=== PATIENT | female | born 1935 | race Caucasian/White ===

== ENCOUNTER 2017-11-07 10:26 | Inpatient (IN) | payer MEDICARE, SELFPAY ==
--- NOTE | 2017-10-22 17:21 | PCM.HP.BLA ---
History and Physical DATE OF SERVICE: 11/07/2017 SCHEDULED PROCEDURE: Right hip hemiarthroplasty conversion to total hip replacement, anterior approach HISTORY OF PRESENT ILLNESS: This is an 81-year-old female who injured her right hip in March 2017 in which she sustained a displaced femoral neck fracture. Patient underwent a right hip hemiarthroplasty on March 10, 2017. Patient has had continued right hip pain. She is currently using a walker. She has been in physical therapy with minimal relief. Patient has increased pain in the right groin. She has difficult time with flexing her hip to get in and out of the car. She has difficult time with activities of daily living including tying her shoes and getting dressed. She has increased pain while laying down. Patient has had x-rays which does show complete loss of joint space and increased subchondral sclerosis on the acetabular side. There is early bony erosion of the acetabular side. After discussion with Dr. Jordon Huynh, the patient would like to proceed with a conversion of a hemiarthroplasty to a right total hip arthroplasty. Patient has medical history pertinent for hypertension and thyroid disease. She currently denies any chest pain, shortness of breath, fevers chills, recent infections. Patient has obtained surgical clearance from her primary care physician Dr. Grajeda. REVIEW OF SYSTEMS: ROS: Const: Reports hard of hearing and vision problems,Denies change in appetite, fever and weight change CV: Denies chest pain, heart murmur, irregular heartbeat and peripheral vascular disease. Resp: Reports cough, but denies asthma, pneumonia, sleep apnea, SOB, tuberculosis and wheezing. GI: Reports constipation, but denies diarrhea, difficulty swallowing, heartburn, nausea, bloody stools and vomiting. : . (F Genital Sx) Urinary: denies incontinence. Musculo: Reports leg swelling, limp, trouble walking and weakness. Skin: Denies Raynaud's, history of shingles and tattoo. Neuro: Reports difficulty with balance and tremor but denies ambulatory dysfunction, dizziness and numbness/tingling. Psych: Reports depression, but denies anxiety, insomnia, mental illness and stress. Sid/Lymph: Reports anemia and past transfusion, but denies bleeding/bruising tendency. Reviewed, no changes. PAST MEDICAL HISTORY: Advance Care Plan: Other Directive, LIVING WILL Effective Date: 05/09/2017 Other Directive, POA Effective Date: 05/09/2017 PMH: Medical Problems: Arthritis, High Blood Pressure, Thyroid Disease, Osteoporosis Accidents: Fracture - LT ANKLE Surgical Hx: Tonsillectomy - 1990 Tubal Ligation - (1958) Hysterectomy - (1977) Gallbladder - (1990) Appendectomy - (1955) Knee Arthroscopy RT - (1997) Knee Replacement RT - (2002) REVISION -2011 L-3, S-1 - (2011) RT Reverse Total Shoulder - (12/21/2015) [email or web address] LT Reverse Total Shoulder - (04/11/2016) [email or web address] RT TKR Revision - (09/06/2016) [email or web address] Hip Replacement RT - (03/10/2017) [email or web address] Anesthesia Complications: None Assistive Devices: Glasses, Hearing Aid, Walker Reviewed, no changes. SOCIAL HISTORY: SH: Marital: .Occupation: Retired.Work Status: Retired.Hand Dominance: Right-handed. Personal Habits: Cigarette Use: Never Smoked Cigarettes.Alcohol: Occasionally.Drug Use: Denies Use.Enjoy Exercising: Exercises 1-3 X/Week. Reviewed, no changes. VITALS: Ht: 58 Wt: 145lb Wt k.772 BMI: 30.3 BP: 100/62 Pulse: 68 Resp: 16 T: 98.7 T: 37.1C ALLERGIES: No Known Drug Allergy MEDICATIONS: Circle 5-325 mg 1-2 by mouth every 6 hour as needed pain, Trazodone HCL 50 mg 1 by mouth every day, Acetaminophen 325 mg 1-2 tablets every 4-6 hours for pain, Lisinopril 20 mg 1 by mouth every day, Amlodipine Besylate 5 mg 1 by mouth every day, Vitamin D (Ergocalciferol) 42770 Unit one PO daily, Flonase Allergy Relief 50 mcg/Act use as directed, Zyrtec Allergy 10 mg one PO daily, Tramadol HCL 50 mg 1-2 by mouth every 6 hours as needed pain, Gabapentin 300 mg 1 by mouth three times a day, Hyoscyamine Sulfate 0.125 mg one PO daily, Iron 28 mg one PO daily, Myrbetriq 25 mg one PO daily, Methenamine Mandelate 0.5 gm one PO daily, Fosamax 70 mg one tab weekly, Miralax 3350 nf one a day., Levothyroxine Sodium 50 mcg 1 by mouth every day, Aspir-81 81 mg 1 by mouth every day, Colace 100 mg 1po qhs, Protien Shake 3D daily PRE-OP EXAM: General appearance:NORMAL Other: Eyes: Conjunctivae and lids: NORMAL Pupils: ERR Ears, Nose, Mouth, and Throat: NORMAL Other: Inspection of lips, teeth and gums: NORMAL Other: Neck: Examination of neck: no masses noted. Respiratory: Assessment of respiratory effort: NORMAL Other: Ausculation of lungs: clear to ausculation no wheeses, ronchi or rales. Cardiovascular: Ausculation of heart: regular rate and rhythem, no mummurs, gallops or rubs. Exam of carotid arteries: NORMAL Other: Gastrointestinal: Exam of abdomen: soft, nontender, nondistended bowel sounds present. Lymphatic: Palpation of nodes in neck: NORMAL Other: Palpation of nodes in Axillae: NORMAL Other: Neurological: see below Psychiatric: Orientation to time, place and person: NORMAL Other: Mood and affect: NORMAL Other: PHYSICAL EXAMINATION: Patient walks with an antalgic gait. Previous incision is well-healed without any erythema. Patient has tenderness to palpation of the lateral right hip. She does have groin pain with range of motion. Internal rotation to 30? and external rotation to 20? with flexion to 90?. Sensations intact to light touch IMAGING STUDIES: X-rays were obtained at [facility] [place] on September 28, 2017 which does show a stable right hip hemiarthroplasty. There is complete loss of joint space with increased subchondral sclerosis on the acetabular side. There is early bony erosion of the acetabular side. IMPRESSION: 1. Painful right hip hemiarthroplasty 2. Hypertension 3. Thyroid disease 4. Osteoporosis PLAN: Dr. Huynh did discuss and review with the patient all treatment options including surgical versus nonsurgical. Patient wishes to proceed with above-stated procedure. Potential risks, benefits, and complications of this procedure were discussed in detail including but not limited to , infection, nerve and blood vessel damage, persistent pain, numbness, tingling, paresthesias, blood clot, pulmonary embolism, and requirement for further surgery. The patient expressed full understanding has no further questions for the doctor. Patient does agree to proceed with the above-stated procedure and has signed the surgery consent form. ___ I have re-examined the patient. There are no clinical changes since date of exam. ___ See progress notes for changes. ___ Dictated on admission Date: Time: Signature:
--- NOTE | 2017-10-22 17:29 | HP.PCM_ITS ---
History and Physical DATE OF SERVICE: 11/07/2017 SCHEDULED PROCEDURE: Right hip hemiarthroplasty conversion to total hip replacement, anterior approach HISTORY OF PRESENT ILLNESS: This is an 81-year-old female who injured her right hip in March 2017 in which she sustained a displaced femoral neck fracture. Patient underwent a right hip hemiarthroplasty on March 10, 2017. Patient has had continued right hip pain. She is currently using a walker. She has been in physical therapy with minimal relief. Patient has increased pain in the right groin. She has difficult time with flexing her hip to get in and out of the car. She has difficult time with activities of daily living including tying her shoes and getting dressed. She has increased pain while laying down. Patient has had x-rays which does show complete loss of joint space and increased subchondral sclerosis on the acetabular side. There is early bony erosion of the acetabular side. After discussion with Dr. Jordon Huynh, the patient would like to proceed with a conversion of a hemiarthroplasty to a right total hip arthroplasty. Patient has medical history pertinent for hypertension and thyroid disease. She currently denies any chest pain, shortness of breath, fevers chills, recent infections. Patient has obtained surgical clearance from her primary care physician Dr. Grajeda. REVIEW OF SYSTEMS: ROS: Const: Reports hard of hearing and vision problems,Denies change in appetite, fever and weight change CV: Denies chest pain, heart murmur, irregular heartbeat and peripheral vascular disease. Resp: Reports cough, but denies asthma, pneumonia, sleep apnea, SOB, tuberculosis and wheezing. GI: Reports constipation, but denies diarrhea, difficulty swallowing, heartburn , nausea, bloody stools and vomiting. : . (F Genital Sx) Urinary: denies incontinence. Musculo: Reports leg swelling, limp, trouble walking and weakness. Skin: Denies Raynaud's, history of shingles and tattoo. Neuro: Reports difficulty with balance and tremor but denies ambulatory dysfunction, dizziness and numbness/tingling. Psych: Reports depression, but denies anxiety, insomnia, mental illness and stress. Sid/Lymph: Reports anemia and past transfusion, but denies bleeding/bruising tendency. Reviewed, no changes. PAST MEDICAL HISTORY: Advance Care Plan: Other Directive, LIVING WILL Effective Date: 05/09/2017 Other Directive, POA Effective Date: 05/09/2017 PMH: Medical Problems: Arthritis, High Blood Pressure, Thyroid Disease, Osteoporosis Accidents: Fracture - LT ANKLE Surgical Hx: Tonsillectomy - 1990 Tubal Ligation - (1958) Hysterectomy - (1977) Gallbladder - (1990) Appendectomy - (1955) Knee Arthroscopy RT - (1997) Knee Replacement RT - (2002) REVISION -2011 L-3, S-1 - (2011) RT Reverse Total Shoulder - (12/21/2015) [email or web address] LT Reverse Total Shoulder - (04/11/2016) [email or web address] TKR Revision - (09/06/2016) [email or web address] Hip Replacement RT - (03/10/2017) [email or web address] Anesthesia Complications: None Assistive Devices: Glasses, Hearing Aid, Walker Reviewed, no changes. SOCIAL HISTORY: SH: Marital: .Occupation: Retired.Work Status: Retired.Hand Dominance: Right- handed. Personal Habits: Cigarette Use: Never Smoked Cigarettes.Alcohol: Occasionally.Drug Use: Denies Use.Enjoy Exercising: Exercises 1-3 X/Week. Reviewed, no changes. VITALS: Ht: 58 Wt: 145lb Wt k.772 BMI: 30.3 BP: 100/62 Pulse: 68 Resp: 16 T: 98.7 T: 37.1C ALLERGIES: No Known Drug Allergy MEDICATIONS: [place] 5-325 mg 1-2 by mouth every 6 hour as needed pain, Trazodone HCL 50 mg 1 by mouth every day, Acetaminophen 325 mg 1-2 tablets every 4-6 hours for pain, Lisinopril 20 mg 1 by mouth every day, Amlodipine Besylate 5 mg 1 by mouth every day, Vitamin D (Ergocalciferol) 95805 Unit one PO daily, Flonase Allergy Relief 50 mcg/Act use as directed, Zyrtec Allergy 10 mg one PO daily, Tramadol HCL 50 mg 1-2 by mouth every 6 hours as needed pain, Gabapentin 300 mg 1 by mouth three times a day, Hyoscyamine Sulfate 0.125 mg one PO daily, Iron 28 mg one PO daily, Myrbetriq 25 mg one PO daily, Methenamine Mandelate 0.5 gm one PO daily, Fosamax 70 mg one tab weekly, Miralax 3350 nf one a day., Levothyroxine Sodium 50 mcg 1 by mouth every day, Aspir-81 81 mg 1 by mouth every day, Colace 100 mg 1po qhs, Protien Shake 3D daily PRE-OP EXAM: General appearance:NORMAL Other: Eyes: Conjunctivae and lids: NORMAL Pupils: ERR Ears, Nose, Mouth, and Throat: NORMAL Other: Inspection of lips, teeth and gums: NORMAL Other: Neck: Examination of neck: no masses noted. Respiratory: Assessment of respiratory effort: NORMAL Other: Ausculation of lungs: clear to ausculation no wheeses, ronchi or rales. Cardiovascular: Ausculation of heart: regular rate and rhythem, no mummurs, gallops or rubs. Exam of carotid arteries: NORMAL Other: Gastrointestinal: Exam of abdomen: soft, nontender, nondistended bowel sounds present. Lymphatic: Palpation of nodes in neck: NORMAL Other: Palpation of nodes in Axillae: NORMAL Other: Neurological: see below Psychiatric: Orientation to time, place and person: NORMAL Other: Mood and affect: NORMAL Other: PHYSICAL EXAMINATION: Patient walks with an antalgic gait. Previous incision is well-healed without any erythema. Patient has tenderness to palpation of the lateral right hip. She does have groin pain with range of motion. Internal rotation to 30? and external rotation to 20? with flexion to 90?. Sensations intact to light touch IMAGING STUDIES: X-rays were obtained at [facility] [place] on September 28, 2017 which does show a stable right hip hemiarthroplasty. There is complete loss of joint space with increased subchondral sclerosis on the acetabular side. There is early bony erosion of the acetabular side. IMPRESSION: 1. Painful right hip hemiarthroplasty 2. Hypertension 3. Thyroid disease 4. Osteoporosis PLAN: Dr. Huynh did discuss and review with the patient all treatment options including surgical versus nonsurgical. Patient wishes to proceed with above- stated procedure. Potential risks, benefits, and complications of this procedure were discussed in detail including but not limited to , infection , nerve and blood vessel damage, persistent pain, numbness, tingling, paresthesias, blood clot, pulmonary embolism, and requirement for further surgery. The patient expressed full understanding has no further questions for the doctor. Patient does agree to proceed with the above-stated procedure and has signed the surgery consent form. ___ I have re-examined the patient. There are no clinical changes since date of exam. ___ See progress notes for changes. ___ Dictated on admission Date: Time: Signature:
[2017-10-23 11:47] VITALS: BP 131/69; PULSE 74; RESP 16; TEMP 36.4; O2SAT 99; BMI 29.7
[2017-10-23 13:26] LABS: Thyroid Stim Hormone (TSH) 1.74 uIU/mL (0.358-3.74)
[2017-11-07] VITALS (10 sets, daily range): BP systolic 102–148; BP diastolic 55–71; PULSE 70–82; RESP 12–18; TEMP 36.1–37.2; O2SAT 93–100; BMI 29.7
[2017-11-07] MEDS: Acetaminophen 500 MG Tablet 1000 MG PO ×2 (11:00→22:10)
[2017-11-07] MEDS: Celecoxib 200 MG Capsule 400 MG PO (11:00)
[2017-11-07] MEDS: oxyCODONE HCl Cr 10 MG Tablet PO (11:00)
[2017-11-07] MEDS: Lactated Ringers 1,000 ML 999 ML IV (11:20)
--- NOTE | 2017-11-07 11:44 | RAD_ITS ---
STUDY: X-RAY - PELVIS AND RIGHT HIP REASON FOR EXAM: Female, 81 years old. Right hip replacement. TECHNIQUE: Radiological exam, hip, unilateral, with pelvis when performed; 2 or 3 views. COMPARISON: None. FINDINGS: Fluoroscopic imaging provided for right anterior total hip replacement. There is good alignment. RAD/Hip 1 view with Pelvis IMPRESSION: Right total hip replacement. There is good alignment. Electronically Signed: Darron Rojas MD at 14:58 EST Tel [phone], Service support ,
[2017-11-07] MEDS: Cefazolin 2 GM in 0.9% Normal Saline 100 ML IV (12:15)
--- NOTE | 2017-11-07 14:00 | RAD_ITS ---
STUDY: X-RAY - PELVIS AND RIGHT HIP REASON FOR EXAM: Female, 81 years old. Status post right hip replacement. TECHNIQUE: Radiological exam, hip, unilateral, with pelvis when performed; 2 or 3 views. COMPARISON: None. FINDINGS: The patient is status post right total hip replacement. There is good alignment. Postoperative soft tissue changes. There is evidence of prior fusion of the lower lumbar spine RAD/Hip Min 2 Views (Portable) IMPRESSION: Status post right total hip replacement. There is good alignment. Electronically Signed: Darron Rojas MD at 15:41 EST Tel [phone], Service support ,
--- NOTE | 2017-11-07 14:06 | PCM.OPRPT ---
Report of Operation Date of Procedure: 11/07/17 Pre-Operative Diagnosis: Failed right hip hemiarthroplasty, progressive osteoarthritis, leg length discrepancy Post-Operative Diagnosis: Failed right hip hemiarthroplasty, progressive osteoarthritis, leg length discrepancy Surgery/Procedure Performed:: Conversion of previous hip surgery to total hip arthroplasty right Description of Surgical Findings:: Stable hip dianeticist: Jani Nicholson dianeticist: Amado Fields Type of Anesthesia:: General Anesthesiologist: Pato Can Special Medications: 2 g Ancef, 1 g TXA at incision, 1 g TXA closure, 10 mg Decadron, joint cocktail (5 mg Duramorph, 30 mL of 0.5% Ropivicaine, 1000 units of epinephrine, 30 mg of Toradol) Specimen's removed: 3 separate specimens were sent to microbiology Estimated Blood Loss (mL): 200 Fluids Replaced: 1300 ml crystalloid Description of Procedure: Components used: 1. Yahir MDM liner for 48 shell, alpha code D 2. Yahir trident acetabular shell size 48 mm 3. [place] X3 polyethylene MDM insert size [id number] 4. [place] cobalt-chromium 22.2mm, +8mm femoral head Brief history operative indications: 81 yo f who failed conservative measures for their hip osteoarthritis status post right hip hemiarthroplasty. Patient had right hip hemiarthroplasty for femoral neck fracture in March 2017. She had progressive groin pain and loss of joint space. X-rays were consistent with osteoarthritis including joint space narrowing, osteophyte formation and subchondral cysts on the acetabular side. Conversion to total hip replacement was discussed with the patient with risks and benefits including but not limited to blood loss, DVTs, PEs, neurovascular damage, dislocation, general risks of anesthesia including loss of life. Patient demonstrated an understanding medical clearance is obtained the patient was consented for surgery. Procedure: On the date of procedure the patient's R hip was marked in the preoperative area. Patient was then taken back to the operating room where anesthesia assumed control of the C-spine and airway and administered anesthetic. Patient was transferred to the operating table and placed in the supine position. The hips were placed at the break of the bed and a sacral bump was placed. The R lower extremity was then prepped out in a sterile fashion using chlorhexidine while the surgeon scrubbed. The PA was vital in the positioning of the patient. Upon reentering the room the R lower extremity was draped in the standard orthopedic fashion and the incision was marked. A timeout was called and everyone agreed upon the side, the site, the procedure be performed, antibody given, and patient's identity. At this time incision was made through skin, subcutaneous tissue, and fat down to fascia. The fascia was then incised and the TFL was retracted laterally. A retractor was placed on the lateral border of the femoral neck. Attention was directed to the inferior portion of the approach and all crossing vessels were identified and appropriately coagulated. A retractor was then placed on the medial portion of the femoral neck. The anterior capsule was then cleared of all soft tissue and then H shaped capsulotomy was made. Aggressive synovectomy was performed and inferior and superior synovium was sent for culture. The retractors were then placed inside the capsule. Traction was then pulled on the leg and a bone tamp was used to separate the fall from the trunnion. The trunnion was then dislocated from the ball and the 43 mm hemiarthroplasty ball was removed from the hip joint. At this time the femur was appropriately exposed and elevated and we examined the femoral component. Femoral component appeared well fixed on shuck testing and rotational testing. Femur could be appropriately elevated. We then raised a small pocket superior to the acetabulum for the femoral trunnion to sit but we did her acetabular work. Attention was then turned toward the acetabulum where the soft tissues were appropriately retracted and the acetabulum was sequentially reamed to 47 mm. A 48 mm cup was then selected and impacted into place. MDM acetabular liner was impacted into place and locking mechanism was verified. The position of the acetabular cup was then verified under live fluoroscopy. Our attention was then directed towards the femur where the trunnion was exposed. Appropriate head was placed with a +0 neck. This gave us a short leg length and an unstable hip. At this time we dislocated the hip and went to a +8 mm neck. This gave us hip stable to 70? external rotation and full extension with good stability at 90? flexion and internal rotation. Leg lengths were near equal at this time. Based on stability we dislocated the hip remove the MDM liner and put an additional 10? of retroversion on the acetabular component. MDM liner was then impacted into place again hip was once again dislocated and found to be stable at 90? external rotation and full extension. He was also stable at 90? flexion and internal rotation. The trial components were then dislocated the proximal femur was again exposed and the components were removed from the wound. The final components were verified and opened. The wound was copiously irrigated out with normal saline. The acetabulum was checked for any residual debris. The final components were placed and impacted. Traction and internal rotation were again used to reduce the hip. After adequate reduction the hip remained stable with appropriate leg lengths. The final components were once again checked with live fluoroscopy and were found to be satisfactory. The wound was then copiously irrigated with normal saline once more, and hemostasis was obtained. Closure was then done using #1 Vicryl runner to close the fascia. A 2-0 vicryl interuppted sutures were used to close the subcutaneous skin. A 3-0 Monocryl and Steri-Strips were used for final skin closure. A Silverlon dressing was placed. Patient was awakened by anesthesia and transferred to the [facility]. Patient was then transferred to the PACU for recovery. Postoperative plan: Patient will get 24 hours postop antibiotics. Patient will get in-house physical therapy and will be weight-bear as tolerated. Patient will follow up in office in 2 weeks for a wound check and x-rays. During the course of the procedure the physician assistant child care teacher played a vital role. His intimate knowledge of my steps in the procedure aided in safe and expedient completion of the procedure. The PA played a vital rolls in positioning particularly in obtaining the appropriate positioning of the sacral bump. The PA was also vital in the retraction of soft tissues during the exposure and especially the femoral work as this is a vital part of the procedure to prevent complications and fractures. The PA was also vital and protecting soft tissues during times of bony cuts and reaming. He also played a vital role in closure with my direct supervision. The PA was also important during reduction and dislocation of the joint and trials intraoperatively. Dr. Fields assisted in the surgery for educational and evaluative purposes only Grafts/Implants Used: Yahir trident acetabular shell with MDM liner - Complications none - Admit VTE Documentation VTE Present on Admission: No VTE Mechan Device Prophylaxis: SCD's, Thigh High RITESH Hose VTE Pharm Prophylaxis ordered?: Yes
--- NOTE | 2017-11-07 14:14 | OP.PCM_ITS ---
Report of Operation Date of Procedure: 11/07/17 Pre-Operative Diagnosis: Failed right hip hemiarthroplasty, progressive osteoarthritis, leg length discrepancy Post-Operative Diagnosis: Failed right hip hemiarthroplasty, progressive osteoarthritis, leg length discrepancy Surgery/Procedure Performed:: Conversion of previous hip surgery to total hip arthroplasty right Description of Surgical Findings:: Stable hip urgent care physician assistant: Jani Nicholson urgent care physician assistant: Amado Fields Type of Anesthesia:: General Anesthesiologist: Pato Can Special Medications: 2 g Ancef, 1 g TXA at incision, 1 g TXA closure, 10 mg Decadron, joint cocktail (5 mg Duramorph, 30 mL of 0.5% Ropivicaine, 1000 units of epinephrine, 30 mg of Toradol) Specimen's removed: 3 separate specimens were sent to microbiology Estimated Blood Loss (mL): 200 Fluids Replaced: 1300 ml crystalloid Description of Procedure: Components used: 1. Yahir MDM liner for 48 shell, alpha code D 2. Yahir trident acetabular shell size 48 mm 3. Nottingham X3 polyethylene MDM insert size 38D 4. Nottingham cobalt-chromium 22.2mm, +8mm femoral head Brief history operative indications: 81 yo f who failed conservative measures for their hip osteoarthritis status post right hip hemiarthroplasty. Patient had right hip hemiarthroplasty for femoral neck fracture in March 2017. She had progressive groin pain and loss of joint space. X-rays were consistent with osteoarthritis including joint space narrowing, osteophyte formation and subchondral cysts on the acetabular side. Conversion to total hip replacement was discussed with the patient with risks and benefits including but not limited to blood loss, DVTs, PEs, neurovascular damage, dislocation, general risks of anesthesia including loss of life. Patient demonstrated an understanding medical clearance is obtained the patient was consented for surgery. Procedure: On the date of procedure the patient's R hip was marked in the preoperative area. Patient was then taken back to the operating room where anesthesia assumed control of the C-spine and airway and administered anesthetic. Patient was transferred to the operating table and placed in the supine position. The hips were placed at the break of the bed and a sacral bump was placed. The R lower extremity was then prepped out in a sterile fashion using chlorhexidine while the surgeon scrubbed. The PA was vital in the positioning of the patient. Upon reentering the room the R lower extremity was draped in the standard orthopedic fashion and the incision was marked. A timeout was called and everyone agreed upon the side, the site, the procedure be performed, antibody given, and patient's identity. At this time incision was made through skin, subcutaneous tissue, and fat down to fascia. The fascia was then incised and the TFL was retracted laterally. A retractor was placed on the lateral border of the femoral neck. Attention was directed to the inferior portion of the approach and all crossing vessels were identified and appropriately coagulated. A retractor was then placed on the medial portion of the femoral neck. The anterior capsule was then cleared of all soft tissue and then H shaped capsulotomy was made. Aggressive synovectomy was performed and inferior and superior synovium was sent for culture. The retractors were then placed inside the capsule. Traction was then pulled on the leg and a bone tamp was used to separate the fall from the trunnion. The trunnion was then dislocated from the ball and the 43 mm hemiarthroplasty ball was removed from the hip joint. At this time the femur was appropriately exposed and elevated and we examined the femoral component. Femoral component appeared well fixed on shuck testing and rotational testing. Femur could be appropriately elevated. We then raised a small pocket superior to the acetabulum for the femoral trunnion to sit but we did her acetabular work. Attention was then turned toward the acetabulum where the soft tissues were appropriately retracted and the acetabulum was sequentially reamed to 47 mm. A 48 mm cup was then selected and impacted into place. MDM acetabular liner was impacted into place and locking mechanism was verified. The position of the acetabular cup was then verified under live fluoroscopy. Our attention was then directed towards the femur where the trunnion was exposed. Appropriate head was placed with a +0 neck. This gave us a short leg length and an unstable hip. At this time we dislocated the hip and went to a + 8 mm neck. This gave us hip stable to 70? external rotation and full extension with good stability at 90? flexion and internal rotation. Leg lengths were near equal at this time. Based on stability we dislocated the hip remove the MDM liner and put an additional 10? of retroversion on the acetabular component. MDM liner was then impacted into place again hip was once again dislocated and found to be stable at 90? external rotation and full extension. He was also stable at 90? flexion and internal rotation. The trial components were then dislocated the proximal femur was again exposed and the components were removed from the wound. The final components were verified and opened. The wound was copiously irrigated out with normal saline. The acetabulum was checked for any residual debris. The final components were placed and impacted. Traction and internal rotation were again used to reduce the hip. After adequate reduction the hip remained stable with appropriate leg lengths. The final components were once again checked with live fluoroscopy and were found to be satisfactory. The wound was then copiously irrigated with normal saline once more, and hemostasis was obtained. Closure was then done using #1 Vicryl runner to close the fascia. A 2-0 vicryl interuppted sutures were used to close the subcutaneous skin. A 3-0 Monocryl and Steri-Strips were used for final skin closure. A Silverlon dressing was placed. Patient was awakened by anesthesia [facility] Patient was then transferred to the PACU for recovery. Postoperative plan: Patient will get 24 hours postop antibiotics. Patient will get in-house physical therapy and will be weight-bear as tolerated. Patient will follow up in office in 2 weeks for a wound check and x-rays. During the course of the procedure the physician educational assistant teacher played a vital role. His intimate knowledge of my steps in the procedure aided in safe and expedient completion of the procedure. The PA played a vital rolls in positioning particularly in obtaining the appropriate positioning of the sacral bump. The PA was also vital in the retraction of soft tissues during the exposure and especially the femoral work as this is a vital part of the procedure to prevent complications and fractures. The PA was also vital and protecting soft tissues during times of bony cuts and reaming. He also played a vital role in closure with my direct supervision. The PA was also important during reduction and dislocation of the joint and trials intraoperatively. Dr. Fields assisted in the surgery for educational and evaluative purposes only Grafts/Implants Used: Nottingham trident acetabular shell with MDM liner - Complications none - Admit VTE Documentation VTE Present on Admission: No VTE Mechan Device Prophylaxis: SCD's, Thigh High RITESH Hose VTE Pharm Prophylaxis ordered?: Yes
[2017-11-07] MEDS: Scopolamine 1mg/72hr Patch 1 PATCH TD (15:17)
--- NOTE | 2017-11-07 15:41 | SUR.PHASEI ---
REPORT TO [facility].
[2017-11-07] MEDS: Lactated Ringers 1,000 ML 125 ML IV (15:48)
[2017-11-07] MEDS: oxyCODONE 5 MG Tablet PO ×2 (18:11→22:11)
[2017-11-07] MEDS: Gabapentin 300 MG Capsule PO (18:11)
[2017-11-07] MEDS: Aspirin 325 MG Tablet PO (18:11)
[2017-11-07] MEDS: Cefazolin 1 GM/50 ML BAG IV (20:24)
[2017-11-07] MEDS: traZODone 50 MG Tablet PO (22:08)
[2017-11-07] MEDS: Fluticasone 0.05% 1 SPRAY NASAL.SRY 2 SPRAY NASAL (22:08)
[2017-11-07] MEDS: Doxycycline 100 MG CAPSULE PO (22:08)
[2017-11-07] MEDS: Senna/Docusate Sodium 1 Tablet 2 TABLET PO (22:10)
[2017-11-07] MEDS: Ascorbic Acid 500 MG Tablet 1000 MG PO (22:11)
[2017-11-08 02:23] VITALS: BP 118/61; PULSE 72; RESP 16; TEMP 36.6; O2SAT 100
[2017-11-08] MEDS: oxyCODONE 5 MG Tablet PO ×3 (03:35→12:57)
[2017-11-08] MEDS: Cefazolin 1 GM/50 ML BAG IV (03:38)
[2017-11-08] MEDS: Lactated Ringers 1,000 ML 125 ML IV (05:45)
[2017-11-08] MEDS: Levothyroxine 50 MCG Tablet PO (05:47)
[2017-11-08] MEDS: Acetaminophen 500 MG Tablet 1000 MG PO ×2 (05:47→13:39)
--- NOTE | 2017-11-08 05:55 | NURSING ---
pt voiding small amts, states feels like bladder is empty but bladder scanned anyway for 212ml. will continue to monitor.
[2017-11-08 06:53] LABS: Hematocrit 29.4 % (37-47); Hemoglobin 9.5 g/dl (12.0-15.0); Mean Corp Hgb Conc 32.3 g/gl (32-36); Mean Corpuscular Hgb 30.6 pg (27.0-32.0); Mean Corpuscular Volume 94.8 fL (81-99); Mean Platelet Vol. 9.3 fl (6.2-12.0); Platelet Count 207 K/mm3 (150-450); RBC Distribution Width CV 13.4 % (11.6-14.6); RBC Distribution Width SD 46.7 fl (35.1-43.9); White Blood Count 9.7 K/mm3 (4.4-11.0)
[2017-11-08 06:59] LABS: Scan Indicated on CBC? Y/N NO
[2017-11-08 07:12] LABS: Anion Gap 9 (5-15); BUN 17 mg/dL (7-18); Calcium,Total 8.1 mg/dL (8.5-10.1); Chloride 101 mmol/L (98-107); EST Glomerular Filtration Rate 64 mL/min (>60); Est Glom Filt Rate - Afr Amer 78 mL/min (>60); Estimated Creatinine Clearance 53.36 ml/min; Glucose 121 mg/dL (70-110); Potassium 4.1 mmol/L (3.5-5.1); Sodium Level 135 mmol/L (136-145)
[2017-11-08 08:18] VITALS: BP 134/67; PULSE 75; RESP 16; TEMP 36.6; O2SAT 94
[2017-11-08] MEDS: Gabapentin 300 MG Capsule PO ×2 (08:26→11:45)
[2017-11-08] MEDS: Mirabegron 25 MG TAB.ER.24H PO (08:26)
[2017-11-08] MEDS: Aspirin 325 MG Tablet PO (08:26)
[2017-11-08] MEDS: Lisinopril 20 MG Tablet PO (08:26)
[2017-11-08] MEDS: Famotidine 20 MG Tablet PO (08:27)
[2017-11-08] MEDS: Doxycycline 100 MG CAPSULE PO (08:27)
[2017-11-08] MEDS: amLODIPine 5 MG Tablet PO (08:27)
[2017-11-08] MEDS: Senna/Docusate Sodium 1 Tablet 2 TABLET PO (08:27)
[2017-11-08] MEDS: Ferrous Sulfate 325 MG Tablet PO (08:27)
--- NOTE | 2017-11-08 11:16 | PN.ORTHO_ITS ---
Subjective: The patient was sitting in bed upon examination. Patient denies any chest pain , shortness of breath, dizziness, lightheadedness, nausea or vomiting, or calf pain. Pain is controlled on medications. No adverse overnight events. Overall patient is doing well and pain is controlled. Patient has tolerated physical therapy. Patient wishes to go home today. Objective: Vital signs stable and afebrile. Patient is able to plantarflex and dorsiflex actively. Sensation is intact to light touch to saphenous, sural, superficial and deep peroneal, and tibial distribution. Dressing is clean dry and intact. Negative Homans bilaterally, negative signs and symptoms of DVT. - Physical Exam General: Alert, Oriented x3, Cooperative, No apparent distress Vital Signs Temp Pulse Resp BP Pulse Ox 97.9 F 75 16 134/67 H 94 11/08/17 08:18 11/08/17 08:18 11/08/17 08:18 11/08/17 08:18 11/08/17 08:18 Oxygen Flow Rate 2 Oxygen Delivery Method Room Air Weight: 67.8 kg Body Mass Index (BMI) 29.7 Intake and Output for Last 24 Hours 11/06/17 11/07/17 11/08/17 23:59 23:59 23:59 Intake Total 2366 / 2366 1391 / 1391 Output Total 1425 / 1425 Balance 941 / 941 1391 / 1391 Microbiology Past 72 Hours 11/07/17 14:20 Gram Stain - Final Tissue - Hip 11/07/17 14:20 Gram Stain - Final Tissue - Hip 11/07/17 14:20 Gram Stain - Final Tissue - Hip Laboratory Tests Past 24 Hrs 11/08/17 11/08/17 06:20 06:20 WBC 9.7 RBC 3.10 L Hgb 9.5 L Hct 29.4 L MCV 94.8 MCH 30.6 MCHC 32.3 RDW 13.4 RDW Differential 46.7 H Plt Count 207 MPV 9.3 Sodium 135 L Potassium 4.1 Chloride 101 Carbon Dioxide 25.0 Anion Gap 9 BUN 17 Creatinine 0.90 Estim Creat Clear Calc 53.36 Est GFR (MDRD) Af Amer 78 Est GFR (MDRD) Non-Af 64 BUN/Creatinine Ratio 19.0 Glucose 121 H Calcium 8.1 L Assessment/Plan 1. S/P conversion of previous hip surgery to a right total hip arthroplasty POD #1 2. Continue Pain Medications: Tylenol and OxyIR 3. DVT Prophylaxis: Aspirin 325 mg twice daily 4. PT/OT: Weightbearing as tolerated 5. H & H: 9.5/29.4, asymptomatic 6. Encouraged Incentive Spirometry 7. Continue antibiotics while following cultures for 1 week postoperatively: Currently on doxycycline 8. Disposition: Orthopedically stable, plan will be for discharge home today. Prescriptions will be E scribed to [facility]. Patient will follow-up per postop instructions.
--- NOTE | 2017-11-08 11:25 | PCM.DC.THR ---
Discharge Diet: No Restrictions Discharge Activity: May Not Drive - while taking narcotic pain medications. May shower in (days): 1 - only if incision is dry and without drainage. Do NOT soak/submerge in tub/pool/munguia/stream/hot tub. Weight Bearing Status: Weight bearing as tolerated Additional Activity Instructions:: Wear elastic stockings for 2 weeks. DO NOT use alcohol with narcotic pain medication. DO NOT make important decisions while taking narcotic medication. If you have problems with taking your medication (rash, itching, nausea, etc.) call the office at once. Call your doctor if your incision/area has: Increased Pain/ Swelling, Increased Redness, Foul Smelling Discharge Call your doctor if you observe: Fever of 101 or Higher Remove Dressing in (days):: 4 - Okay to remove on November 12, 2017 Instructions: Hip Precautions, Hip Safety: Sleeping Positions, Hip Safety: Sitting, Total Hip Replacement, Understanding Hip Replacement, After Total Hip Replacement: Returning to Activity, After Hip Replacement: Home Safety, After Total Hip Replacement: Recovering at Home, Discharge Instructions for Total Hip Replacement Surgery, After Hip Replacement: Managing Your Pain, After Hip Replacement: Using Your Walker, After Hip Replacement: Your Exercise Program Chart Additional Instructions: Follow [facility] postop instructions Allergies/Adverse Reactions: Allergies grass pollen-perennial rye, standar [grass poll-perennial rye,std] Allergy (Verified 10/23/17 11:11) sinus pressure DUST Allergy (Uncoded 10/23/17 11:11) sinus pressure MOLD Allergy (Uncoded 10/23/17 11:11) SINUS PRESSURE Medications to take at Discharge Amlodipine [Norvasc] 5 mg PO DAILY 12/31/14 Gabapentin [Neurontin] 300 mg PO TID 12/31/14 Levothyroxine [Synthroid] 50 mcg PO DAILY 12/31/14 Lisinopril [Zestril] 20 mg PO DAILY 12/31/14 Trazodone HCl [Desyrel] 50 mg PO QHS 12/31/14 Ascorbic Acid [Vitamin C] 1,000 mg PO QHS 03/23/16 Methenamine Mandelate 1 gm PO QHS 03/23/16 Guaifenesin [Mucinex] 600 mg PO BID PRN PRN 08/25/16 Polyethylene Glycol 3350 [Miralax] 17 gm PO DAILY 08/25/16 Alendronate Sodium [Fosamax] 70 mg PO FR 03/09/17 Cetirizine HCl [Zyrtec] 10 mg PO PRN PRN 03/09/17 Fluticasone 0.05% [Flonase Nasal [place]] 2 spray NASAL QHS 03/09/17 Bio X4 1 cap PO PRN PRN 10/23/17 Cholecalciferol (Vitamin D3) [Vitamin D3] 5,000 unit PO DAILY 10/23/17 Docusate Sodium [Stool Softener] 100 mg PO QHS 10/23/17 Esomeprazole Magnesium [Nexium 24Hr] 20 mg PO PRN PRN 10/23/17 Ferrous Sulfate 325 mg PO DAILY@0800 10/23/17 Hyoscyamine Sulfate 0.125 mg SL PRN PRN 10/23/17 Linaclotide [Linzess] 72 mcg PO DAILY 10/23/17 Mirabegron [Myrbetriq] 25 mg PO DAILY 10/23/17 Simethicone [Gas Relief] 125 mg PO PRN PRN 10/23/17 Acetaminophen [Tylenol] 1,000 mg PO Q8 #90 tab 11/08/17 Aspirin 325 mg PO BIDCM #30 tab 11/08/17 Doxycycline 100 mg PO BID #14 cap 11/08/17 Oxycodone [Oxyir] 5 - 10 mg PO Q4H PRN PRN 7 Days #60 tablet 11/08/17 The following prescriptions were given: Oxycodone [Oxyir] 5 - 10 mg PO Q4H PRN PRN 7 Days #60 tablet PRN Reason: Mod-Severe Pain (-07/17) Acetaminophen [Tylenol] 1,000 mg PO Q8 #90 tab Aspirin 325 mg PO BIDCM #30 tab Doxycycline 100 mg PO BID #14 cap Primary Care Physician: Roma Grajeda DO [Primary Care Provider] - Please Follow Up With: Home health physical therapy Please Follow Up With: Jani Nicholson PA-C When: 11/21/17 @ 11:00 am
[2017-11-08 11:29] VITALS: BP 120/62; PULSE 84; RESP 18; TEMP 37.2; O2SAT 96
--- NOTE | 2017-11-08 15:52 | CASEMGMT ---
JAYDEN MENDOZA Face to Face with patient for initial transition planning/care coordination assessment. JAYDEN MENDOZA introduced self and role at [facility]. Patient sitting in chair, alert and oriented, at bedside. Patient willing to participate in assessment and is able to answer all questions appropriately. Care providers, pharmacy, and demographics verified. See link attached. Patient wishes to discharge home with [facility] for therapy and transition to outpatient therapy. List of [facility] companies provided. Patient would like [facility]. Patient states she has no further needs or concerns at this time. Referral made to [facility] with acceptance. JAYDEN MENDOZA updated patient regarding [facility]. CM to follow for discharge planning needs that may arise. Disposition Plan: Patient to discharge home with [facility], family support, and follow-up plans in place.
== END 2017-11-08 13:57 | disposition home health service (06) | DRG 468 ==
LOC: ACINP 10:27 → MS3 15:30
PROVIDERS: Anesthesiology; Admitting Provider Specialist; Family Provider Family Medicine; PCP Family Medicine; Visit Provider Specialist
PROC: 0SR902A Replacement of Right Hip Joint with Metal on Polyethylene Synthetic Substitute, Uncemented, Open Approach (ICD-10-PCS; principal; 2017-11-07 11:35)
DX: T84.090A Other mechanical complication of internal right hip prosthesis, initial encounter (principal); Z96.641 Presence of right artificial hip joint; E07.9 Disorder of thyroid, unspecified; I10 Essential (primary) hypertension; M16.11 Unilateral primary osteoarthritis, right hip; M21.70 Unequal limb length (acquired), unspecified site; M81.0 Age-related osteoporosis without current pathological fracture
CPT/HCPCS: 36415; 73501; 73502; 76000; 80048; 84443; 85027; 87015; 87070; 87075; 87081; 87102; 87116; 87205; 87206; 97110; 97116; 97162; 97165; 97535; 97802; 99251; J7120; G0463; J2405

== ENCOUNTER 2017-11-09 09:55 | Inpatient (IN) | payer MEDICARE, SELFPAY ==
[2017-11-08 11:29] VITALS: BP 120/62
[2017-11-09] VITALS (7 sets, daily range): BP systolic 110–142; BP diastolic 53–66; PULSE 72–95; RESP 13–18; TEMP 36.5–37.1; O2SAT 95–98; BMI 29.9; BMI 29.4
--- NOTE | 2017-11-09 10:31 | EKG12_ITS ---
Test Reason : WEAKNESS Blood Pressure : / mmHG Vent. Rate : 070 BPM Atrial Rate : 070 BPM P-R Int : 158 ms QRS Dur : 086 ms QT Int : 390 ms P-R-T Axes : 051 -17 014 degrees QTc Int : 421 ms Normal sinus rhythm Normal ECG Confirmed by TANG LE, ORIN ([id number]), material expeditor VINCENT SCHAEFFER ([id number]) on 11/12/2017 3:30:43 PM Referred By: RADHA Confirmed By:ORIN BECKWITH MD
--- NOTE | 2017-11-09 10:31 | RAD_ITS ---
STUDY: X-RAY CHEST REASON FOR EXAM: Female, 81 years old. Fall this morning. Hypotension. TECHNIQUE: Single frontal view of the chest. COMPARISON: March 09, 2017 FINDINGS: There is a diffuse interstitial pattern unchanged. There is no demonstrated pleural abnormality. There is stable borderline cardiomegaly. Normal mediastinum and alex. Normal visualized pulmonary arteries. There is atherosclerotic calcification of the aortic arch with tortuosity unchanged. Normal visualized thoracic spine. There are bilateral total shoulder arthroplasty is unchanged. There is no demonstrated abnormality of the visualized soft tissue structures of the upper abdomen. RAD/Chest 1 View (Portable) IMPRESSION: Stable cardiomegaly with diffuse interstitial pattern. No acute pathology. Electronically Signed: Viet Gimenez MD at 10:58 EST , Service support ,
[2017-11-09 10:57] LABS: Absolute Neutrophil Count 5.9 X10^3/uL (2.0-7.7); Basophil# 0.02 X10^3/uL; Basophil% 0.3 % (0-1); Eosinophil# 0.38 X10^3/uL; Eosinophils% 4.9 % (0-5); Hematocrit 27.5 % (37-47); Hemoglobin 8.8 g/dl (12.0-15.0); Lymphocyte % 9.1 % (19-41); Mean Corpuscular Hgb 30.1 pg (27.0-32.0); Mean Corpuscular Volume 94.2 fL (81-99); Mean Platelet Vol. 9.1 fl (6.2-12.0); Monocyte# 0.62 X10^3/uL; Monocyte% 8.1 % (0-10); Neutrophil # 5.94 X10^3/uL (2.7-7.7); Neutrophil % 77.3 % (47-70); POSITIVE COUNT NO; POSITIVE DIFFERENTIAL NO; POSITIVE MORPHOLOGY NO; Platelet Count 166 K/mm3 (150-450); RBC Distribution Width CV 13.9 % (11.6-14.6); RBC Distribution Width SD 47.6 fl (35.1-43.9); Red Blood Count 2.92 M/mm3 (4.2-5.4); White Blood Count 7.7 K/mm3 (4.4-11.0)
--- NOTE | 2017-11-09 10:58 | ED.VISSUMM ---
- ER Visit Summary Date of Service: 11/09/17 Chief Complaint: Fall, weakness, recent hip surgery History of Present Illness: The patient is a 81 F who had a fall this morning. She states that she had a hip replacement done 2 days ago. She was discharged from the hospital yesterday. She states that she fell this morning and was unable to get up. Paramedics arrived and her blood pressure was low so they transported her here. She denies any pain. states that she has been weak and tired since her surgery. She has been on oxycodone for pain. She also takes gabapentin and tramadol. They are concerned that she is getting too much medication. also stated some concern he may not have made the right decision to take her home as he may not be able to take care of her. Physical Examination: Vital signs are reviewed. HEENT exam unremarkable. Heart is regular rate and rhythm. Lungs are clear to auscultation. Abdomen soft and nontender. She does have tenderness of the right hip. Overall she is diffusely weak with no lateralizing stroke symptoms. She does appear drowsy Test Results: EKG is normal sinus rhythm. Chest x-ray unremarkable. Hemoglobin is 8.8. Urinalysis reveals greater than 100 white blood cells with cath specimen Emergency Department Course and Treatment: Patient was given a little bit of IV fluid. She was never hypotensive in the emergency department. My initial concern was that she may be overmedicated with pain medications which could be causing her drowsiness. This still could be the case. However, her UTI could be as well. I will give her 1 g of IV Rocephin and discussed with hospitalist for admission Treatment Plan: [] Disposition: Admit Impression: UTI, delirium This note was generated with [employer]ar[employer] dictation software. It may contain incorrect words, spelling, and punctuation that were not noted in review of the chart prior to signing ED Disposition - Plan for ED Patient: Chief Complaint: Hypotension Referrals: Roma Grajeda DO [Primary Care Provider] -
[2017-11-09 11:14] LABS: Anion Gap 11 (5-15); BUN 32 mg/dL (7-18); BUN/Creat Ratio 28.8 RATIO (10-20); Calcium,Total 8.7 mg/dL (8.5-10.1); Chloride 98 mmol/L (98-107); Creatinine, Serum 1.11 mg/dL (0.55-1.02); EST Glomerular Filtration Rate 50 mL/min (>60); Est Glom Filt Rate - Afr Amer 61 mL/min (>60); Estimated Creatinine Clearance 42.84 ml/min; Glucose 109 mg/dL (70-110); Potassium 3.8 mmol/L (3.5-5.1); Sodium Level 133 mmol/L (136-145)
[2017-11-09 11:43] LABS: Bacteria 0 SEEN /hpf (None Seen); Mucous, Urine 0 SEEN /hpf (<or=2+); Red Blood Cells-Urine 0 SEEN /hpf (0-5)
[2017-11-09 11:45] LABS: Color, Urine Yellow (Yellow); Glucose, Dipstick Normal (Normal); Ketone-Dipstick Negative (Negative); Leukocyte Esterase-Dipstick 500 /ul (Negative); Nitrite-Dipstick Negative (Negative); Occult Blood-Urine 25 /ul (Negative); Protein-Dipstick 30 mg/dl (Negative); Urine Bilirubin Dipstick Negative (Negative); Urine Clarity Sl. Cloudy (Clear); Urine Urobilinogen Normal (Normal)
[2017-11-09 11:52] LABS: Squamous Epithelial Cells - UA 0-5 SEEN /hpf (5-10); White Blood Cells >100 SEEN /hpf (0-5)
[2017-11-09] MEDS: Ceftriaxone 1 GM/50 mL Premix x1 IV (12:22)
--- NOTE | 2017-11-09 14:06 | NURSING ---
Discussing medications with pt. Pt's has discharge medication list from yesterday. Pt states she took oxycodone this morning prior to falling. When discussing medication list, Tramadol is listed as medication to stop. Pt and state they were not aware of stopping Tramadol and pt states she took a Tramadol this morning around the same time that she took an oxycodone. Reviewed discharge list with pt and from discharge yesterday with Tramadol under discontinue section.
[2017-11-09] MEDS: Acetaminophen 500 MG Tablet 1000 MG PO ×2 (14:47→22:28)
--- NOTE | 2017-11-09 16:54 | CASEMGMT ---
Social Work Note Face to face with pt who [facility] Inform that SW will check with availability and it would require a pre-cert. Understanding expressed. Placed call to [facility] who confirms that they have availability and once pre-cert is obtained can accept. Pt will be here through the weekend. Updated pt to the above information. No additional needs at this time. SW to continue to follow and assist with discharge planning. Plan: TCU pending pre-cert. MILLICENT MorenoW
[2017-11-09] MEDS: Aspirin 325 MG Tablet PO (17:25)
[2017-11-09] MEDS: Gabapentin 100 MG Capsule 200 MG PO (17:25)
--- NOTE | 2017-11-09 19:16 | PCM.HP.STD ---
Problem List (1) Status post total hip replacement, right Status: Acute Comment: 11/07/[address] Huynh (2) Urinary tract infection Status: Suspected (3) Fall Status: Acute Comment: no LOC, lost balance (4) Hyponatremia Status: Acute (5) Acute kidney injury Status: Acute (6) Dehydration Status: Acute (7) Closed right hip fracture Status: Resolved Comment: March 2017 (8) History of peptic ulcer disease Status: Chronic (9) Hypertension Status: Chronic (10) Hypothyroidism Status: Chronic (11) Anemia due to blood loss Status: Acute History of Present Illness Date of Admission: 11/09/17 Chief Complaint: fall The patient is a 81 year old F with a past medical history of peptic ulcer disease, hypertension, hypothyroidism, osteoarthritis, chronic back pain on gabapentin 300 3 times daily, allergic rhinitis, osteoporosis and asthma per patient who was discharged from the hospital on 11/08/17 after a right total hip replacement done by Dr. Huynh on 11/07/2017. She was discharged home with her . She returned to the emergency room at [facility] on 11/09/2017 at approximately 11 AM after having a fall at home. She was not able to get up and the paramedics were summoned. They felt her blood pressure was low and they brought her to the emergency room. Patient was discharged on oxycodone and she thinks she may have taken Ultram also at home. She is also on gabapentin 300 3 times daily, trazodone 50 nightly, Tikosyn mean as needed in addition to taking the Oxycodone and the Ultram. Vital signs at arrival to the emergency room were temp 97.7, heart rate 76, blood pressure 113/53, respiratory rate 15 and she was 95% saturated on room air. White blood cell count was 7.7 and hemoglobin was 8.8, down from 9.51-118. Platelets were within normal limits. The sodium was low at 133 and the BUN was 32 with a creatinine of 1.11. Creatinine in March 2017 was 0.63. A clean catch urine specimen had greater than 100 WBCs per high power field but she denies dysuria or frequency. She is afebrile and the WBC is WNL. She denies loss of consciousness. She denies dizziness, chest pain, shortness of breath, palpitations. She thinks she took too big a step and lost her balance. EKG in the emergency room was normal. She is being admitted to the hospital with a dx of SKI due to dehydration and fall likely due to orthostasis. I doubt UTI since she is asymptomatic and has a normal WBC count and no fever. Past Medical History Past Medical History (Chronic Problems): Chronic Problems History of peptic ulcer disease (Chronic) Hypothyroidism (Chronic) Hypertension (Chronic) Allergies grass pollen-perennial rye, standar [grass poll-perennial rye,std] Allergy (Verified 10/23/17 11:11) sinus pressure gluten Adverse Reaction (Verified 11/09/17 13:52) Food Allergy lactose Adverse Reaction (Verified 11/09/17 13:52) Food Allergy DUST Allergy (Uncoded 10/23/17 11:11) sinus pressure MOLD Allergy (Uncoded 10/23/17 11:11) SINUS PRESSURE Home Medications: Ambulatory Orders Medication Instructions Recorded Amlodipine [Norvasc] 5 mg PO DAILY 12/31/14 Gabapentin [Neurontin] 300 mg PO TID 12/31/14 Levothyroxine [Synthroid] 50 mcg PO DAILY 12/31/14 Lisinopril [Zestril] 20 mg PO DAILY 12/31/14 Trazodone HCl [Desyrel] 50 mg PO QHS 12/31/14 Ascorbic Acid [Vitamin C] 1,000 mg PO QHS 03/23/16 Methenamine Mandelate 1 gm PO QHS 03/23/16 Guaifenesin [Mucinex] 600 mg PO BID PRN PRN 08/25/16 Polyethylene Glycol 3350 [Miralax] 17 gm PO DAILY 08/25/16 Alendronate Sodium [Fosamax] 70 mg PO FR 03/09/17 Cetirizine HCl [Zyrtec] 10 mg PO PRN PRN 03/09/17 Fluticasone 0.05% [Flonase Nasal 2 spray NASAL QHS 03/09/17 [place]] Bio X4 1 cap PO PRN PRN 10/23/17 Cholecalciferol (Vitamin D3) 5,000 unit PO DAILY 10/23/17 [Vitamin D3] Docusate Sodium [Stool Softener] 100 mg PO QHS 10/23/17 Esomeprazole Magnesium [Nexium 20 mg PO PRN PRN 10/23/17 24Hr] Ferrous Sulfate 325 mg PO DAILY@0800 10/23/17 Hyoscyamine Sulfate 0.125 mg SL PRN PRN 10/23/17 Linaclotide [Linzess] 72 mcg PO DAILY 10/23/17 Mirabegron [Myrbetriq] 25 mg PO DAILY 10/23/17 Simethicone [Gas Relief] 125 mg PO PRN PRN 10/23/17 Acetaminophen [Tylenol] 1,000 mg PO Q8 #90 tab 11/08/17 Aspirin 325 mg PO BIDCM #30 tab 11/08/17 Doxycycline 100 mg PO BID #14 cap 11/08/17 Oxycodone [Oxyir] 5 - 10 mg PO Q4H PRN PRN 7 Days 11/08/17 #60 tablet Surgical History: cholecystectomy, - - both shoulders,back knee and shoulders,eye surgeries, right knee surgery. Right total hip replacement on 11/07/[address] Huynh. 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 Lives: Spouse/ Significant Other Smoking Status: Never smoker Tobacco Use: Non-smoker Alcohol: Rare Drugs: None - *Family History Maternal History Items: - - bowel cancer Paternal History Items: - - chronic lung disease Review of Systems Constitutional: Denies: Anorexia, Chills, Fever, Malaise HEENT: Denies: Head Aches, Sore Throat Cardiovascular: Denies: Chest Pain, Claudication, Edema, Light Headedness, Orthopnea, Palpitations, Syncope Respiratory: Denies: Cough, Shortness of Breath Gastrointestinal: Reports: - - She tells me that she had 3 BM's this afternoon but this is the first time she has had a BM since surgery and she is on stool softeners.. Denies: Abdominal Pain, Constipation, Nausea, Vomiting Genitourinary: Denies: Dysuria, Frequency, Urgency Gynecological: Denies: Breast symptoms Musculoskeletal: Reports: Leg Pain - R hip - unchanged since DC Skin: Reports: - - Incision R hip has a small amount dried blood on the dressing.....there is a small amount of erythema around the dressing.....nothing out of the ordinary. Denies: Jaundice, Rash Neurological: Reports: Balance problems - since the THR....marlin if she takes too big a step. Denies: Change in Speech, Slurred speech, Confusion, Difficulty swallowing, Focal weakness, Numbness Psychiatric: Denies: Anxiety, Depression, Homicidal Ideations, Suicidal Ideations Endocrine: Denies: Change in Body Habitus Hematologic/ Lymphatic: Denies: Hx of blood clot VTE Information - Inpt Only VTE Present on Admission: No VTE Mechan Device Prophylaxis: SCD's, Knee High RITESH Hose VTE Pharm Prophylaxis ordered?: Yes Patient Problems: Active and Suspected Problems Status post total hip replacement, right (Acute) 11/07/[address] Huynh Urinary tract infection (Suspected) Fall (Acute) no LOC, lost balance Hyponatremia (Acute) Acute kidney injury (Acute) Dehydration (Acute) Anemia due to blood loss (Acute) - Physical Exam General: Alert, Oriented x3, Cooperative, No apparent distress, Well developed, Well nourished HEENT: Atraumatic, PERRLA, EOMI, Normocephalic Oral: Dry Mucosa Neck: Supple, No JVD, No Nuchal Rigidity, Trachea Midline Lungs: Clear to auscultation, No rhonchi, No wheeze, No rales Cardiovascular: Regular rate, Regular Rhythm, Normal S1, Normal S2, No murmurs, No rub noted, No Gallop Abdomen: Bowel Sounds Present, Soft, Non Tender, Non-Distended, - Extremities: No clubbing, No cyanosis - No guarding with palpation, No edema Skin: No rashes Musculoskeletal: Arthritic Changes Neurological: Cranial nerves II-XII grossly intact, Neuro grossly intact Psych/Mental Status: Normal Affect, Appropriate Vital Signs Temp Pulse Resp BP Pulse Ox 97.8 F 76 18 118/59 L 97 11/09/17 13:18 11/09/17 13:18 11/09/17 13:18 11/09/17 13:18 11/09/17 13:18 Oxygen Delivery Method Room Air Weight: 148 lb Body Mass Index (BMI) 29.4 Assessment/Plan Active and Suspected Problems Status post total hip replacement, right (Acute) 11/07/[address] Huynh Urinary tract infection (Suspected) Fall (Acute) no LOC, lost balance Hyponatremia (Acute) Acute kidney injury (Acute) Dehydration (Acute) Anemia due to blood loss (Acute) Impressions 1. S/P R THR on 11/07/17-discharged home on 11/08/2017 and presented to the ER this morning after a fall at home. She may have taken both oxycodone and tramadol today for pain. She denies dizziness, lightheadedness, chest pain, shortness of breath, palpitations. She did not lose consciousness and thinks that she took too big a step and lost her balance. 2. Acute kidney injury-secondary to dehydration 3. Dehydration 4. Anemia secondary to acute blood loss from recent surgery 5. Remote history of peptic ulcer disease 6. Hypertension 7. Hypothyroidism 8. Osteoarthritis 9. Chronic back pain on gabapentin 300 mg 3 times daily 10. Allergic rhinitis 11. Osteoporosis 12. Asthma 13. Urinary tract infection diagnosed by the ER physician-the specimen was a clean-catch in an 81-year-old woman who just had a total hip replacement - no fever and no elevated WBC, denies sx - strongly doubt UTI No pelvic XRAY done in the ER Discussed with Dr. Marie - will get an AP pelvis and ortho will not need to see unless there is an abnormality on XRAY Hydrate with NS X 2 liters Recheck the lab in the AM Decrease the Gabapentin dose PT/OT consults. Her is fearful that she is too weak for him to care for at home. Will revisit this after she is hydrated and is evaluated by PT/OT.
--- NOTE | 2017-11-09 20:07 | RAD_ITS ---
STUDY: X-RAY - PELVIS REASON FOR EXAM: Female, 81 years old. Fall TECHNIQUE: One view of the pelvis was obtained. COMPARISON: None. FINDINGS: There is a non-specific bowel gas pattern. Normal visualized soft tissue structures. Status post fusion of lower lumbar levels. Normal bilateral iliac wings, sacroiliac joints and visualized sacrum. Normal visualized bilateral superior and inferior pubic rami. Normal pubic symphysis. Normal ischial tuberosities. Right hip prosthesis is noted in satisfactory alignment on this single limited view. There is soft tissue gas lateral to the right hip and proximal thigh likely postsurgically related. Normal visualized left femoral head. Normal left acetabulum. Normal left hip joint. RAD/Pelvis 1 or 2 Views IMPRESSION: Status post right total knee replacement with postsurgical changes in the adjacent soft tissue. No acute bony injury.. Electronically Signed: Ray Carballo DO at 20:26 EST Tel [phone], Service support ,
[2017-11-09] MEDS: Ascorbic Acid 500 MG Tablet 1000 MG PO (22:28)
[2017-11-09] MEDS: Doxycycline 100 MG CAPSULE PO (22:28)
[2017-11-09] MEDS: Fluticasone 0.05% 1 SPRAY NASAL.SRY 2 SPRAY NASAL (22:36)
[2017-11-10] VITALS (18 sets, daily range): BP systolic 118–151; BP diastolic 55–85; PULSE 73–86; RESP 16–18; TEMP 36.6–37.3; O2SAT 95–99
[2017-11-10] MEDS: guaiFENesin Dm 10 ML UDC PO ×2 (01:56→13:23)
[2017-11-10] MEDS: traZODone 50 MG Tablet PO ×2 (03:16→22:27)
[2017-11-10] MEDS: oxyCODONE 5 MG Tablet PO ×4 (04:42→20:51)
[2017-11-10 05:11] LABS: Bacteria 0 SEEN /hpf (None Seen); Mucous, Urine 0 SEEN /hpf (<or=2+); Red Blood Cells-Urine 0 SEEN /hpf (0-5); Squamous Epithelial Cells - UA 0 SEEN /hpf (5-10)
[2017-11-10 05:18] LABS: Color, Urine Yellow (Yellow); Glucose, Dipstick Normal (Normal); Ketone-Dipstick Negative (Negative); Leukocyte Esterase-Dipstick 500 /ul (Negative); Nitrite-Dipstick Negative (Negative); Occult Blood-Urine 10 /ul (Negative); Protein-Dipstick Negative (Negative); Urine Bilirubin Dipstick Negative (Negative); Urine Clarity Clear (Clear); Urine Urobilinogen Normal (Normal)
[2017-11-10 05:26] LABS: White Blood Cells 0-5 SEEN /hpf (0-5)
[2017-11-10] MEDS: Acetaminophen 500 MG Tablet 1000 MG PO ×3 (05:48→22:27)
[2017-11-10] MEDS: Levothyroxine 50 MCG Tablet PO (05:48)
--- NOTE | 2017-11-10 08:11 | PCM.PROGNOTE ---
Patient Problems: Active and Suspected Problems Status post total hip replacement, right (Acute) 11/07/[address] Huynh Urinary tract infection (Suspected) Fall (Acute) no LOC, lost balance Hyponatremia (Acute) Acute kidney injury (Acute) Dehydration (Acute) Anemia due to blood loss (Acute) Subjective: Patient is an 81-year-old female who is postop day #3 after right total hip replacement by Dr. Huynh on 11/07/2017. She was discharged from the hospital on 11/08/2017 and came back on 11-25 after having a fall at home. She has had multiple liquid black stool since admission. Hemoglobin on recheck last night was 8.0, down from 8.8 at admission. She was transfused with 3 unit of packed red blood cells. The UA obtained by straight cath < 12 hours after the clean catch had 0-5 WBC and no bacteria. Urine culture on the cath specimen is currently pending. Stool is heme + and Dr. Adler has been consulted for endoscopy and will perform and EGD on Sunday. - Physical Exam General: Alert, Cooperative, No apparent distress HEENT: Atraumatic, PERRLA, EOMI, Normocephalic Oral: Moist Mucosa Neck: Supple, Trachea Midline Lungs: Clear to auscultation, Normal air movement, No rhonchi, No wheeze, No rales Cardiovascular: Regular rate, Regular Rhythm, Normal S1, Normal S2, No Gallop Abdomen: Bowel Sounds Present, Soft, Non Tender, Non-Distended Extremities: No cyanosis, No edema, No Calf Tenderness Skin: - - no bleeding from the nincision and the pain is adequately controlled Neurological: Cranial nerves II-XII grossly intact, Neuro grossly intact Psych/Mental Status: Appropriate Vital Signs Temp Pulse Resp BP Pulse Ox 98.5 F 84 16 130/62 H 97 11/10/17 05:37 11/10/17 07:01 11/10/17 05:37 11/10/17 06:45 11/10/17 05:37 Oxygen Delivery Method Room Air Weight: 148 lb Body Mass Index (BMI) 29.4 Orthostatic Vital Signs Start: 11/10/17 06:45 Freq: q24h Status: Active Protocol: Activity Type Activity Date Activity User E-Sign Co-Sign Detail Recorded Client Recorded Date Recorded By Document 11/10/17 06:45 [facility] [id number] 11/10/17 07:03 [facility] 11/10/17 06:45 Orthostatic Vitals Standing -Blood Pressure (90/60-120/80 mm Hg) 148/72 H -Extremity Use Left Arm -Pulse Rate (60-100 beats/min) 85 Sitting -Blood Pressure (90/60-120/80 mm Hg) 136/68 H -Extremity Use Left Arm -Pulse Rate (60-100 beats/min) 80 Lying -Blood Pressure (90/60-120/80 mm Hg) 130/62 H -Extremity Use Left Arm -Pulse Rate (60-100 beats/min) 82 Intake and Output for Last 24 Hours 11/08/17 11/09/17 11/10/17 23:59 23:59 23:59 Intake Total 1291.6 / 1291.6 Output Total 1000 / 1000 Balance 291.6 / 291.6 Laboratory Tests Past 24 Hrs 11/09/17 11/09/17 11/09/17 20:15 20:15 21:05 Hgb 8.0 L Hct 25.0 L Urine Color Yellow Urine Clarity Clear Urine pH 6.0 Ur Specific [place] 1.010 Urine Protein Negative Urine Glucose (UA) Normal Urine Ketones Negative Urine Occult Blood 10 H Urine Nitrite Negative Urine Bilirubin Negative Urine Urobilinogen Normal Ur Leukocyte Esterase 500 H Urine RBC 0 SEEN Urine WBC 0-5 SEEN Ur Squamous Epith Cells 0 SEEN Urine Bacteria 0 SEEN Urine Mucus 0 SEEN Blood Type A NEGATIVE Antibody Screen NEGATIVE Crossmatch See Detail Assessment/Plan Active and Suspected Problems Status post total hip replacement, right (Acute) 11/07/[address] Huynh Urinary tract infection (Suspected) Fall (Acute) no LOC, lost balance Hyponatremia (Acute) Acute kidney injury (Acute) Dehydration (Acute) Anemia due to blood loss (Acute) Impressions 1. S/P R THR on 11/07/17-discharged home on 11/08/2017 and presented to the ER this morning after a fall at home. She may have taken both oxycodone and tramadol today for pain. She denies dizziness, lightheadedness, chest pain, shortness of breath, palpitations. She did not lose consciousness and thinks that she took too big a step and lost her balance. 2. Acute kidney injury-secondary to dehydration - resolved 3. Dehydration 4. Anemia secondary to acute blood loss from recent surgery 5. Remote history of peptic ulcer disease 6. Hypertension 7. Hypothyroidism 8. Osteoarthritis 9. Chronic back pain on gabapentin 300 mg 3 times daily 10. Allergic rhinitis 11. Osteoporosis 12. Asthma 13. Urinary tract infection diagnosed by the ER physician-the specimen was a clean-catch in an 81-year-old woman who just had a total hip replacement - no fever and no elevated WBC, denies sx - strongly doubt UTI....cath specimen with 0-5 WBC and no bacteria No fracture of the pelvis or hip and the prosthesis is in good alignment Dr. Adler will do EGD Sunday unless she starts to drop HGB rapidly Continue the Protonix drip Start Lovenox in the AM if the HGB is stable and no more black liquid stools DC the IVF Continue PT and OT Her is fearful that she is too weak for him to care for at home. Will revisit this after she is hydrated and is evaluated by PT/OT. Code Visit Inpatient E&M: [id number] Subs Hosp L2
[2017-11-10] MEDS: Lisinopril 20 MG Tablet PO (09:06)
[2017-11-10] MEDS: Gabapentin 100 MG Capsule 200 MG PO ×2 (09:06→17:54)
[2017-11-10] MEDS: Doxycycline 100 MG CAPSULE PO ×2 (09:06→22:27)
[2017-11-10] MEDS: Ferrous Sulfate 325 MG Tablet PO (09:07)
--- NOTE | 2017-11-10 11:42 | CON.PCM_ITS ---
Problem List (1) Anemia due to blood loss Status: Acute Reason for Consult Date of Consultation: 11/10/17 History of Present Illness: The patient is a 81 year old F who is status post a right hip replacement on November 07.estimated blood loss during the procedure was 200 cc. The patient had a preoperative hemoglobin of 12 The patient is noted black, foul-smelling and gelatinous stool postoperatively. She noted a degree of fatigue. hemoglobin today was 8.0. The patient's stool was Hemoccult positive. I was consulted for GI bleed. The patient recalls she had undergone endoscopy by Dr. Ortega approximately 2 years previously. She understands that her colonoscopy was unremarkable and that she was told she did not have to have further colonoscopies. Upon further questioning, the patient recalls that she was told she had findings consistent with celiac/gluten sensitivity, but she does not recall whether she had upper endoscopy performed. she did have a barium swallow in November [address] Ortega for a history of dysphagia which was radiographically normal. Past Medical History Past Medical History (Chronic Problems): Chronic Problems History of peptic ulcer disease (Chronic) Hypothyroidism (Chronic) Hypertension (Chronic) Allergies grass pollen-perennial rye, standar [grass poll-perennial rye,std] Allergy ( Verified 10/23/17 11:11) sinus pressure gluten Adverse Reaction (Verified 11/09/17 13:52) Food Allergy lactose Adverse Reaction (Verified 11/09/17 13:52) Food Allergy DUST Allergy (Uncoded 10/23/17 11:11) sinus pressure MOLD Allergy (Uncoded 10/23/17 11:11) SINUS PRESSURE Home Medications: Ambulatory Orders Medication Instructions Recorded Amlodipine [Norvasc] 5 mg PO DAILY 12/31/14 Gabapentin [Neurontin] 300 mg PO TID 12/31/14 Levothyroxine [Synthroid] 50 mcg PO DAILY 12/31/14 Lisinopril [Zestril] 20 mg PO DAILY 12/31/14 Trazodone HCl [Desyrel] 50 mg PO QHS 12/31/14 Ascorbic Acid [Vitamin C] 1,000 mg PO QHS 03/23/16 Methenamine Mandelate 1 gm PO QHS 03/23/16 Guaifenesin [Mucinex] 600 mg PO BID PRN PRN 08/25/16 Polyethylene Glycol 3350 [Miralax] 17 gm PO DAILY 08/25/16 Alendronate Sodium [Fosamax] 70 mg PO FR 03/09/17 Cetirizine HCl [Zyrtec] 10 mg PO PRN PRN 03/09/17 Fluticasone 0.05% [Flonase Nasal 2 spray NASAL QHS 03/09/17 [place]] Bio X4 1 cap PO PRN PRN 10/23/17 Cholecalciferol (Vitamin D3) 5,000 unit PO DAILY 10/23/17 [Vitamin D3] Docusate Sodium [Stool Softener] 100 mg PO QHS 10/23/17 Esomeprazole Magnesium [Nexium 20 mg PO PRN PRN 10/23/17 24Hr] Ferrous Sulfate 325 mg PO DAILY@0800 10/23/17 Hyoscyamine Sulfate 0.125 mg SL PRN PRN 10/23/17 Linaclotide [Linzess] 72 mcg PO DAILY 10/23/17 Mirabegron [Myrbetriq] 25 mg PO DAILY 10/23/17 Simethicone [Gas Relief] 125 mg PO PRN PRN 10/23/17 Acetaminophen [Tylenol] 1,000 mg PO Q8 #90 tab 11/08/17 Aspirin 325 mg PO BIDCM #30 tab 11/08/17 Doxycycline 100 mg PO BID #14 cap 11/08/17 Oxycodone [Oxyir] 5 - 10 mg PO Q4H PRN PRN 7 Days 11/08/17 #60 tablet Surgical History: cholecystectomy, - - both shoulders,back knee and shoulders, eye surgeries, right knee surgery. Right total hip replacement on 11/07/[address] Huynh. 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 Denies: Abdominal Pain, Nausea, Vomiting Genitourinary: Denies: Dysuria Musculoskeletal: Denies: Joint Pain, Joint Tenderness Skin: Denies: Rash, Wounds Neurological: Denies: Numbness, Tingling, Focal weakness Psychiatric: Denies: Anxiety, Depression, Homicidal Ideations, Suicidal Ideations Hematologic/ Lymphatic: Denies: Easy Bruising, Easy Bleeding Patient Problems: Active and Suspected Problems Status post total hip replacement, right (Acute) 11/07/[address] Huynh Urinary tract infection (Suspected) Fall (Acute) no LOC, lost balance Hyponatremia (Acute) Acute kidney injury (Acute) Dehydration (Acute) Anemia due to blood loss (Acute) - Physical Exam General: Alert, Oriented x3, Cooperative Lungs: Clear to auscultation, Normal air movement Cardiovascular: Regular rate, No murmurs Abdomen: Bowel Sounds Present, Soft, Non Tender Vital Signs Temp Pulse Resp BP Pulse Ox 99.0 F 75 18 131/85 H 96 11/10/17 11:15 11/10/17 11:15 11/10/17 11:15 11/10/17 11:15 11/10/17 11:15 Oxygen Delivery Method Room Air Weight: 67.132 kg Body Mass Index (BMI) 29.4 Orthostatic Vital Signs Start: 11/10/17 06:45 Freq: q24h Status: Active Protocol: Activity Type Activity Date Activity User E-Sign Co-Sign Detail Recorded Client Recorded Date Recorded By Document 11/10/17 06:45 [facility] [id number] 11/10/17 07:03 [facility] 11/10/17 06:45 Orthostatic Vitals Standing -Blood Pressure (90/60-120/80) 148/72 H -Extremity Use Left Arm -Pulse Rate (60-100) 85 Sitting -Blood Pressure (90/60-120/80) 136/68 H -Extremity Use Left Arm -Pulse Rate (60-100) 80 Lying -Blood Pressure (90/60-120/80) 130/62 H -Extremity Use Left Arm -Pulse Rate (60-100) 82 Intake and Output for Last 24 Hours 11/08/17 11/09/17 11/10/17 23:59 23:59 23:59 Intake Total 1691.6 / 1691.6 Output Total 1000 / 1000 Balance 691.6 / 691.6 Microbiology Past 72 Hours 11/10/17 07:10 Stool Occult Blood (SUZANNE) - Final Stool Occult Blood Positive Laboratory Tests Past 24 Hrs 11/09/17 11/09/17 11/09/17 20:15 20:15 21:05 Hgb 8.0 L Hct 25.0 L Urine Color Yellow Urine Clarity Clear Urine pH 6.0 Ur Specific [place] 1.010 Urine Protein Negative Urine Glucose (UA) Normal Urine Ketones Negative Urine Occult Blood 10 H Urine Nitrite Negative Urine Bilirubin Negative Urine Urobilinogen Normal Ur Leukocyte Esterase 500 H Urine RBC 0 SEEN Urine WBC 0-5 SEEN Ur Squamous Epith Cells 0 SEEN Urine Bacteria 0 SEEN Urine Mucus 0 SEEN Blood Type A NEGATIVE Antibody Screen NEGATIVE Crossmatch See Detail Assessment/Plan Active and Suspected Problems Status post total hip replacement, right (Acute) 11/07/[address] Huynh Urinary tract infection (Suspected) Fall (Acute) no LOC, lost balance Hyponatremia (Acute) Acute kidney injury (Acute) Dehydration (Acute) Anemia due to blood loss (Acute) melena-likely upper GI bleed. We'll watch the patient's output and hemoglobin. If she becomes unstable we'll plan for urgent upper endoscopy. Otherwise, plan for semiurgent endoscopy on Sunday. The patient understands the risks, benefits, alternatives and possible complications related to endoscopy and consents to the above procedure.
[2017-11-10] MEDS: 0.9% Normal Saline 1,000 ML 100 ML IV (13:06)
[2017-11-10 14:53] LABS: Absolute Lymphocyte Count 0.45 X10^3/ul (0.83-4.51); Absolute Neutrophil Count 4.9 X10^3/uL (2.0-7.7); Basophil# 0.02 X10^3/uL; Basophil% 0.3 % (0-1); Eosinophil# 0.25 X10^3/uL; Hematocrit 34.8 % (37-47); Hemoglobin 11.9 g/dl (12.0-15.0); Lymphocyte # 0.45 X10^3/ul (4.0); Lymphocyte % 7.2 % (19-41); Mean Corp Hgb Conc 34.2 g/gl (32-36); Mean Corpuscular Volume 90.6 fL (81-99); Mean Platelet Vol. 9.5 fl (6.2-12.0); Monocyte# 0.62 X10^3/uL; Neutrophil # 4.88 X10^3/uL (2.7-7.7); Neutrophil % 78.3 % (47-70); Platelet Count 164 K/mm3 (150-450); RBC Distribution Width CV 15.1 % (11.6-14.6); RBC Distribution Width SD 49.3 fl (35.1-43.9); Red Blood Count 3.84 M/mm3 (4.2-5.4); White Blood Count 6.2 K/mm3 (4.4-11.0)
[2017-11-10 14:54] LABS: Differential Indicated SCAN CRITERIA MET; POSITIVE COUNT NO; POSITIVE DIFFERENTIAL YES; POSITIVE MORPHOLOGY NO
[2017-11-10 15:08] LABS: ALB/GLOB Ratio 0.8 RATIO (0.9-2.4); AST(SGOT) 41 U/L (15-37); Alanine Aminotransfer ALT/SGPT 62 U/L (13-56); Albumin, Serum 2.8 g/dL (3.2-5.0); Alkaline Phosphatase 117 U/L (45-117); Anion Gap 8 (5-15); BUN 15 mg/dL (7-18); BUN/Creat Ratio 27.6 RATIO (10-20); Chloride 112 mmol/L (98-107); Creatinine, Serum 0.54 mg/dL (0.55-1.02); EST Glomerular Filtration Rate 115 mL/min (>60); Est Glom Filt Rate - Afr Amer 139 mL/min (>60); Estimated Creatinine Clearance 47.55 ml/min; Globulin 3.3 g/dL (2.2-4.2); Glucose 95 mg/dL (74-106); Magnesium 1.9 mg/dL (1.6-2.6); Phosphorus 2.5 mg/dL (2.5-4.9); Potassium 3.9 mmol/L (3.5-5.1); Protein, Total 6.1 g/dL (6.4-8.2); Sodium Level 143 mmol/L (136-145)
[2017-11-10] MEDS: Fluticasone 0.05% 1 SPRAY NASAL.SRY 2 SPRAY NASAL (22:27)
[2017-11-10] MEDS: Ascorbic Acid 500 MG Tablet 1000 MG PO (22:28)
[2017-11-11] VITALS (10 sets, daily range): BP systolic 125–158; BP diastolic 56–73; PULSE 61–77; RESP 14–20; TEMP 36.9–37.1; O2SAT 96–98
[2017-11-11] MEDS: oxyCODONE 5 MG Tablet PO ×5 (02:29→23:53)
[2017-11-11] MEDS: Acetaminophen 500 MG Tablet 1000 MG PO ×2 (06:43→14:49)
[2017-11-11] MEDS: Levothyroxine 50 MCG Tablet PO (06:43)
[2017-11-11 06:47] LABS: Absolute Lymphocyte Count 0.57 X10^3/ul (0.83-4.51); Absolute Neutrophil Count 4.3 X10^3/uL (2.0-7.7); Basophil# 0.03 X10^3/uL; Basophil% 0.5 % (0-1); Differential Indicated SCAN CRITERIA MET; Eosinophil# 0.41 X10^3/uL; Eosinophils% 6.8 % (0-5); Hematocrit 35.2 % (37-47); Hemoglobin 11.9 g/dl (12.0-15.0); Lymphocyte # 0.57 X10^3/ul (4.0); Lymphocyte % 9.5 % (19-41); Mean Corp Hgb Conc 33.8 g/gl (32-36); Mean Corpuscular Hgb 30.8 pg (27.0-32.0); Mean Corpuscular Volume 91.2 fL (81-99); Mean Platelet Vol. 9.5 fl (6.2-12.0); Monocyte# 0.68 X10^3/uL; Monocyte% 11.3 % (0-10); Neutrophil # 4.31 X10^3/uL (2.7-7.7); Neutrophil % 71.7 % (47-70); POSITIVE COUNT NO; POSITIVE DIFFERENTIAL YES; POSITIVE MORPHOLOGY NO; Platelet Count 177 K/mm3 (150-450); RBC Distribution Width CV 15.4 % (11.6-14.6); RBC Distribution Width SD 50.6 fl (35.1-43.9); Red Blood Count 3.86 M/mm3 (4.2-5.4)
[2017-11-11] MEDS: Ferrous Sulfate 325 MG Tablet PO (08:47)
[2017-11-11] MEDS: Gabapentin 100 MG Capsule 200 MG PO ×2 (08:47→18:49)
[2017-11-11] MEDS: Polyethylene Glycol 3350 17 GM PACKET PO (10:46)
[2017-11-11] MEDS: Doxycycline 100 MG CAPSULE PO (10:46)
[2017-11-11] MEDS: Lisinopril 20 MG Tablet PO (10:46)
--- NOTE | 2017-11-11 12:01 | PN_ITS ---
Patient Problems: Active and Suspected Problems Status post total hip replacement, right (Acute) 11/07/[address] Huynh Urinary tract infection (Suspected) Fall (Acute) no LOC, lost balance Hyponatremia (Acute) Acute kidney injury (Acute) Dehydration (Acute) Anemia due to blood loss (Acute) Subjective: The patient is a 81 year old F with a past medical history of peptic ulcer disease, hypertension, hypothyroidism, osteoarthritis, chronic back pain on gabapentin 300 3 times daily, allergic rhinitis, osteoporosis and asthma per patient who was discharged from the hospital on 11/08/17 after a right total hip replacement done by Dr. Huynh on 11/07/2017. She was discharged home with her . She returned to the emergency room at [facility] on 11/09/2017 at approximately 11 AM after having a fall at home. She was not able to get up and the paramedics were summoned. They felt her blood pressure was low and they brought her to the emergency room. Shortly after admission she began to have black tarry looking stools that were heme positive. Hemoglobin had dropped 8 and she was transfused by Dr. Santos with 3 units of PRBC's. She has been on a Protonix infusion and she is scheduled for an EGD Sunday with Dr. Adler. The pelvic XRAY showed the R hip prosthesis to be intact and there were no fractures. She was suspected to have a UTI at admission because there were >100 WBC's in the clean catch in this 81 YO woman who just had a R THR. The cath specimen had 0-5 WBC's and no bacteria Orthostatics were negative today. She remains afebrile. She is not tachycardic. She is 96% saturated on room air. Hemoglobin is stable at 11.9. White blood cell count and differential are unremarkable. Platelets are also normal. The clean catch urine at admission grew less than 1000 colonies of Pseudomonas species.....considered a contaminant. Culture of the straight cath specimen is still pending. she is c/o burning in her stomach today all over Denies lightheadedness, chest pain, shortness of breath. She is tolerating her diet well. Hemoglobin is stable at 11.9. - Physical Exam General: Alert, Oriented x3, Cooperative Oral: Moist Mucosa Neck: Supple Lungs: Clear to auscultation Cardiovascular: Regular rate, Regular Rhythm, Normal S1, Normal S2, - - occasional PVC's on telemetry and otherwise unremarkable Abdomen: Bowel Sounds Present - they are not hyperactive., Soft, Non-Distended Extremities: No edema Neurological: Cranial nerves II-XII grossly intact, Neuro grossly intact Psych/Mental Status: Normal Affect, Appropriate Vital Signs Temp Pulse Resp BP Pulse Ox 98.5 F 68 18 145/68 H 96 11/11/17 01:00 11/11/17 10:00 11/11/17 01:00 11/11/17 08:30 11/11/17 01:00 Oxygen Delivery Method Room Air Weight: 148 lb 0.011 oz Body Mass Index (BMI) 29.4 Orthostatic Vital Signs Start: 11/10/17 06:45 Freq: q24h Status: Active Protocol: Activity Type Activity Date Activity User E-Sign Co-Sign Detail Recorded Client Recorded Date Recorded By Document 11/11/17 08:30 FELI [id number] 11/11/17 09:03 FELI 11/11/17 08:30 Orthostatic Vitals Standing -Blood Pressure (90/60-120/80 mm Hg) 140/68 H -Extremity Use Right Arm -Pulse Rate (60-100 beats/min) 68 Sitting -Blood Pressure (90/60-120/80 mm Hg) 144/60 H -Extremity Use Right Arm -Pulse Rate (60-100 beats/min) 70 Lying -Blood Pressure (90/60-120/80 mm Hg) 145/68 H -Extremity Use Right Arm -Pulse Rate (60-100 beats/min) 70 Intake and Output for Last 24 Hours 11/09/17 11/10/17 11/11/17 23:59 23:59 23:59 Intake Total 4724.6 / 4724.6 951 / 951 Output Total 1400 / 1400 1050 / 1050 Balance 3324.6 / 3324.6 -99 / -99 Microbiology Past 72 Hours 11/10/17 07:10 Stool Occult Blood (SUZANNE) - Final Stool Occult Blood Positive Laboratory Tests Past 24 Hrs 11/09/17 11/10/17 11/10/17 20:15 14:35 14:35 WBC 6.2 RBC 3.84 L Hgb 11.9 L Hct 34.8 L MCV 90.6 MCH 31.0 MCHC 34.2 RDW 15.1 H RDW Differential 49.3 H Plt Count 164 MPV 9.5 Immature Gran % (Auto) 0.200 Neut % (Auto) 78.3 H Lymph % (Auto) 7.[address] [place] % (Auto) 10.0 Eos % (Auto) 4.0 Baso % (Auto) 0.3 Absolute Neuts (auto) 4.9 Absolute Lymphs (auto) 0.45 L Total Counted Not Reportable Differential Comment Sodium 143 Potassium 3.9 Chloride 112 H Carbon Dioxide 23.0 Anion Gap 8 BUN 15 Creatinine 0.54 L Estim Creat Clear Calc 47.55 Est GFR (MDRD) Af Amer 139 Est GFR (MDRD) Non-Af 115 BUN/Creatinine Ratio 27.6 H Glucose 95 Calcium 8.0 L Phosphorus 2.5 Magnesium 1.9 Total Bilirubin 2.80 H AST 41 H ALT 62 H Alkaline Phosphatase 117 Total Protein 6.1 L Albumin 2.8 L Globulin 3.3 Albumin/Globulin Ratio 0.8 L Crossmatch See Detail 11/11/17 06:25 WBC 6.0 RBC 3.86 L Hgb 11.9 L Hct 35.2 L MCV 91.2 MCH 30.8 MCHC 33.8 RDW 15.4 H RDW Differential 50.6 H Plt Count 177 MPV 9.5 Immature Gran % (Auto) 0.200 Neut % (Auto) 71.7 H Lymph % (Auto) 9.[address] [place] % (Auto) 11.3 H Eos % (Auto) 6.8 H Baso % (Auto) 0.5 Absolute Neuts (auto) 4.3 Absolute Lymphs (auto) 0.57 L Total Counted Not Reportable Differential Comment Sodium Potassium Chloride Carbon Dioxide Anion Gap BUN Creatinine Estim Creat Clear Calc Est GFR (MDRD) Af Amer Est GFR (MDRD) Non-Af BUN/Creatinine Ratio Glucose Calcium Phosphorus Magnesium Total Bilirubin AST ALT Alkaline Phosphatase Total Protein Albumin Globulin Albumin/Globulin Ratio Crossmatch Assessment/Plan Active and Suspected Problems Status post total hip replacement, right (Acute) 11/07/[address] Huynh Urinary tract infection (Suspected) Fall (Acute) no LOC, lost balance Hyponatremia (Acute) Acute kidney injury (Acute) Dehydration (Acute) Anemia due to blood loss (Acute) Impressions 1. S/P R THR on 11/07/17-discharged home on 11/08/2017 and presented to the ER this morning after a fall at home. She may have taken both oxycodone and tramadol today for pain. She denies dizziness, lightheadedness, chest pain, shortness of breath, palpitations. She did not lose consciousness and thinks that she took too big a step and lost her balance. 2. Acute kidney injury-secondary to dehydration - resolved 3. Dehydration 4. Anemia secondary to acute blood loss from recent surgery 5. Remote history of peptic ulcer disease 6. Hypertension 7. Hypothyroidism 8. Osteoarthritis 9. Chronic back pain on gabapentin 300 mg 3 times daily 10. Allergic rhinitis 11. Osteoporosis 12. Asthma 13. Urinary tract infection diagnosed by the ER physician-the specimen was a clean-catch in an 81-year-old woman who just had a total hip replacement - no fever and no elevated WBC, denies sx - strongly doubt UTI....cath specimen with 0-5 WBC and no bacteria. Culture on the clean catch grew less than 1000 colonies of Pseudomonas species considered a contaminant. No fracture of the pelvis or hip and the prosthesis is in good alignment Dr. Adler will do EGD Sunday HGB is stable so will DC the continuous Protonix infusion and start Protonix 40 mg IV Q 12 H Try GI cocktail for the burning in the stomach She tells me that when she was on Xarelto she had blood in the urine. she now has had a UGI bleed with ASA. Will need to discuss with Dr. Huynh what he wants to do about anticoagulation.... currently on SCD's and TEDS for DVT prophylaxis Her is fearful that she is too weak for him to care for at home. Will revisit this after she is hydrated and is evaluated by PT/OT. PT is recommending TCU or SNF at [place]. Will put in a consult for [place] planning Code Visit Inpatient E&M: 82348 Subs Hosp L1
[2017-11-11] MEDS: Fluticasone 0.05% 1 SPRAY NASAL.SRY 2 SPRAY NASAL (23:54)
[2017-11-12] VITALS (9 sets, daily range): BP systolic 98–177; BP diastolic 57–88; PULSE 66–75; RESP 14–18; TEMP 36.1–37.2; O2SAT 97–99
--- NOTE | 2017-11-12 | IMM_PTH ---
PATIENT: KAELA ALDANA LOC: 3 U#:[id number] AGE/SX: 81/F ROOM: MD308 RE11/09/[address]: Dr. Dacia Correa MD : 1935 BED: 1 DIS: 11/13/2017 SPEC #: [id number] RECD: 11/14/17 10:00 STATUS: DOUG REQ #: [id number] [place]: 11/12/17 00:[address]: Richard Adler DEPT: IMMUNOHISTOCHEMISTRY RECD BY: Evelia Tejeda ENTERED: 11/14/17 10:00 SP TYPE: IMMUNO OTHR DR: MD Dr. Whitney Gonzalez DO Dr. Lisa Malys, DO Dr. Tamera Robotham, MD Tissues: Stomach, NOS Procedures: H Pylori (initial) Comments: @ Ordering doctor for H.PYLORI edited from to DR.RGUTTM Galindo by SUSHMA at 11/14/17 1001 @ Submitting doctor edited from to DR.RGUTTM Galindo by SUSHMA at 11/14/17 1001 PHYSICIAN & INSTITUTION [place] [address] SPECIMEN INFORMATION: Tissue Source: Antral biopsy Clinical Info: Tae Specimen Number: [id number] CPT code: 72799 METHODOLOGY: Deparaffinized sections of prefer/formalin-fixed tissue or PAP/DQ stained slides are incubated with monoclonal/polyclonal antibodies/oligonucleotide probes. Localization is made via biotin free immunoperoxidase method. Appropriate controls are performed and reacted as expected. Results on target cell population are indicated in the following table: RESULTS: ANTIBODY / CLONE RESULT H Pylori (polyclonal) negative These tests were developed and their performance characteristics determined by [facility]. They may not have been cleared or approved by the U.S. Food and Drug Administration. The FDA has determined that such clearance or approval is not necessary. INTERPRETATION: Antral biopsy: Negative for Helicobacter pylori organisms. AM:corwin 11/14/17
[2017-11-12] MEDS: Mag Hydrox/Al Hydrox/Simeth 30 ML UDC 15 ML PO ×2 (00:23→16:44)
[2017-11-12] MEDS: oxyCODONE 5 MG Tablet PO ×3 (04:46→21:34)
[2017-11-12 05:52] LABS: Hematocrit 38.5 % (37-47); Hemoglobin 12.7 g/dl (12.0-15.0); Mean Corpuscular Volume 90.8 fL (81-99); Mean Platelet Vol. 9.2 fl (6.2-12.0); Platelet Count 201 K/mm3 (150-450); RBC Distribution Width CV 14.9 % (11.6-14.6); RBC Distribution Width SD 49.7 fl (35.1-43.9); Red Blood Count 4.24 M/mm3 (4.2-5.4); White Blood Count 5.8 K/mm3 (4.4-11.0)
[2017-11-12 06:07] LABS: Scan Indicated on CBC? Y/N NO
[2017-11-12 06:20] LABS: Anion Gap 9 (5-15); BUN 6 mg/dL (7-18); BUN/Creat Ratio 12.1 RATIO (10-20); Calcium,Total 8.4 mg/dL (8.5-10.1); Chloride 107 mmol/L (98-107); EST Glomerular Filtration Rate 127 mL/min (>60); Est Glom Filt Rate - Afr Amer 154 mL/min (>60); Estimated Creatinine Clearance 47.55 ml/min; Glucose 82 mg/dL (74-106); Potassium 3.5 mmol/L (3.5-5.1); Sodium Level 138 mmol/L (136-145); Thyroid Stim Hormone (TSH) 5.54 uIU/mL (0.358-3.74)
[2017-11-12] MEDS: Acetaminophen 500 MG Tablet 1000 MG PO ×2 (06:27→21:36)
[2017-11-12] MEDS: Levothyroxine 50 MCG Tablet PO (06:27)
--- NOTE | 2017-11-12 08:46 | CASEMGMT ---
Social Work Note Faxed initial request for SNF placement to [employer] at [phone]. SW to continue to follow and assist with discharge planning. Plan: TCU pending pre-cert. MILLICENT MorenoW
--- NOTE | 2017-11-12 13:22 | CASEMGMT ---
Social Work Note Placed call to [employer] at [phone] option #3. Was on hold for 25 minutes and ultimately left a vm with RN reviewer, Stefany, requesting a return phone call in regards to request for SNF placement. SW to continue to follow and assist with discharge planning. Plan: TCU pending pre-cert. MILLICENT Moreno PSYCH NURSE
--- NOTE | 2017-11-12 15:00 | EGD_PTH ---
PATIENT: KAELA ALDANA LOC: MS3 U#:[id number] AGE/SX: 81/F ROOM: IA308 RE11/09/[address]: Dr. Dacia Correa MD : 1935 BED: 1 DIS: 11/13/2017 SPEC #: [id number] RECD: 11/12/17 15:18 STATUS: DOUG RERodriguez #: [id number] [place]: 11/12/17 15:[address]: Richard Adler DEPT: SURGICAL PATHOLOGY RECD BY: Dimas Mauricio ENTERED: 11/13/17 09:31 SP TYPE: EGD BIOPSY OTHR DR: MD Dr. Whitney Gonzalez DO Dr. Lisa Malys, DO Dr. Tamera Robotham, MD Tissues: Gastric mucous membrane Procedures: Surgery Specimen Level IV Comments: @ Ordering doctor for SUIV edited from to @ by SUSHMA at 11/13/17 1539 @ Submitting doctor edited from to DR.RGUTTM Galindo by SUSHMA at 11/13/17 1539 HEADER OPERATION: EGD PRE-OP DIAGNOSIS: Anemia TISSUE SUBMITTED: Antral biopsy MICROSCOPIC DIAGNOSIS Gastric antrum, biopsy: Gastritis. AM:corwin 11/14/17 COMMENT The results of immunohistochemistry for Helicobacter pylori will be reported separately ([id number]). MICROSCOPIC DESCRIPTION Slides are reviewed. Sections show small collections and groups of plasma cells in the mucosa. Active inflammation is not present. These findings are consistent with moderate chronic gastritis. GROSS DESCRIPTION Received in fixative is one container labeled with the patient's name and designated antral biopsy. The specimen consists of multiple irregular fragments of light carpio soft tissue that in aggregate measure 1 x 0.8 x 0.1 cm. The specimen is totally submitted in one cassette. / SJ:corwin 11/13/17 TC:3 CPT: 24759
--- NOTE | 2017-11-12 15:14 | PCM.OPRPT ---
Problem List (1) Anemia due to blood loss Status: Acute Report of Operation Date of Procedure: 11/12/17 Pre-Operative Diagnosis: GI BLEED Post-Operative Diagnosis: MILD GASTRITIS, DUODENITIS, NO OBVIOUS ULCERS, SMALL AVM BODY OF STOMACH, SMALL HIATAL HERNIA, MILD DISTAL ESOPHAGITIS Surgery/Procedure Performed:: EGD WITH BIOPSY food and nutrition services assistant: None Type of Anesthesia:: MAC Anesthesiologist: Pato Can ASA3 Specimen's removed: GASTRIC Description of Procedure: The patient was brought to the endoscopy suite. Sign in was performed verifying patient, site, planned procedure, critical nursing information, the patient was monitored with cardiac, pulse oximetric, and blood pressure monitoring devices. Monitored anesthetic care was provided for sedation. Following IV sedation and after the oropharynx was sprayed with Cetacaine spray, a video gastroscope was inserted in the oropharynx and advanced down the esophagus without difficulty. The scope was advanced through the stomach, through the pylorus through the duodenum to the proximal jejunum. the jejunum appeared unremarkable. No biopsies were obtained currently. There was snyder bile in the duodenum with no signs of hemobilia. The duodenum demonstrated a degree of duodenitis. There was relatively mild. The antral region demonstrated mild gastritis. There were no signs of ulcerations in the stomach or the duodenum. Biopsies obtained from the antral region for H. pylori and pathology. Along the greater curvature of the stomach. There was an area that appeared to be a small AVM. This did not seem to have any signs of bleeding. The patient had a small hiatal hernia with some irritation at the diaphragmatic hiatus, but again no signs of severe ulceration. The distal esophagus demonstrated was felt to be some reflux esophagitis. The remainder the esophagus was unremarkable. The patient tolerated the procedure well and was brought to recovery in stable condition. at this point in time, I recommend the patient maintained on proton pump inhibitors. If she has further bleeding episodes, I would recommend a bleeding scan. Dr. Ortega done a colonoscopy on recall 2 years previously. Since the patient had recent hip surgery. I feel would be a challenge to try to perform a bowel prep so I do not recommend colonoscopy at this time. I would recommend repeat upper endoscopy in approximately one month to assure she has complete healing of the gastric area to assess this AVM area again and given a questionable history of celiac, I would recommend jejunal and distal esophageal biopsies at that time.
--- NOTE | 2017-11-12 15:17 | OP.PCM_ITS ---
Problem List (1) Anemia due to blood loss Status: Acute Report of Operation Date of Procedure: 11/12/17 Pre-Operative Diagnosis: GI BLEED Post-Operative Diagnosis: MILD GASTRITIS, DUODENITIS, NO OBVIOUS ULCERS, SMALL AVM BODY OF STOMACH, SMALL HIATAL HERNIA, MILD DISTAL ESOPHAGITIS Surgery/Procedure Performed:: EGD WITH BIOPSY rd manager: None Type of Anesthesia:: MAC Anesthesiologist: Pato Can ASA3 Specimen's removed: GASTRIC Description of Procedure: The patient was brought to the endoscopy suite. Sign in was performed verifying patient, site, planned procedure, critical nursing information, the patient was monitored with cardiac, pulse oximetric, and blood pressure monitoring devices. Monitored anesthetic care was provided for sedation. Following IV sedation and after the oropharynx was sprayed with Cetacaine spray , a video gastroscope was inserted in the oropharynx and advanced down the esophagus without difficulty. The scope was advanced through the stomach, through the pylorus through the duodenum to the proximal jejunum. the jejunum appeared unremarkable. No biopsies were obtained currently. There was synder bile in the duodenum with no signs of hemobilia. The duodenum demonstrated a degree of duodenitis. There was relatively mild. The antral region demonstrated mild gastritis. There were no signs of ulcerations in the stomach or the duodenum. Biopsies obtained from the antral region for H. pylori and pathology. Along the greater curvature of the stomach. There was an area that appeared to be a small AVM. This did not seem to have any signs of bleeding. The patient had a small hiatal hernia with some irritation at the diaphragmatic hiatus, but again no signs of severe ulceration. The distal esophagus demonstrated was felt to be some reflux esophagitis. The remainder the esophagus was unremarkable. The patient tolerated the procedure well and was brought to recovery in stable condition. at this point in time, I recommend the patient maintained on proton pump inhibitors. If she has further bleeding episodes, I would recommend a bleeding scan. Dr. Ortega done a colonoscopy on recall 2 years previously. Since the patient had recent hip surgery. I feel would be a challenge to try to perform a bowel prep so I do not recommend colonoscopy at this time. I would recommend repeat upper endoscopy in approximately one month to assure she has complete healing of the gastric area to assess this AVM area again and given a questionable history of celiac, I would recommend jejunal and distal esophageal biopsies at that time.
--- NOTE | 2017-11-12 15:26 | PCM.PN.HOSP ---
Patient Problems: Active and Suspected Problems Status post total hip replacement, right (Acute) 11/07/[address] Huynh Urinary tract infection (Suspected) Fall (Acute) no LOC, lost balance Hyponatremia (Acute) Acute kidney injury (Acute) Dehydration (Acute) Anemia due to blood loss (Acute) Subjective: Patient was seen and examined earlier. No new complains. Denies dizziness, palpitations, chest pain. Going for EGD today. Objective: Physical Exam General: Alert, Oriented x3, Cooperative, not pale, not jaundiced Oral: Moist Mucosa Neck: Supple Lungs: Clear to auscultation Cardiovascular: Regular rate, Regular Rhythm, Normal S1, Normal S2, Abdomen: Bowel Sounds Present, soft, non-distended, nontender, no palpable organs Extremities: No edema Neurological: Cranial nerves II-XII grossly intact, Neuro grossly intact Psych/Mental Status: Normal Affect, Appropriate Vitals/I&O's: Vital Signs Temp Pulse Resp BP Pulse Ox 96.9 F L 70 16 98/77 98 11/12/17 15:10 11/12/17 15:20 11/12/17 15:20 11/12/17 15:20 11/12/17 15:20 Oxygen Delivery Method Room Air Weight: 67.132 kg Body Mass Index (BMI) 29.4 Orthostatic Vital Signs Start: 11/10/17 06:45 Freq: q24h Status: Active Protocol: Activity Type Activity Date Activity User E-Sign Co-Sign Detail Recorded Client Recorded Date Recorded By Document 11/12/17 12:46 ALESIA [id number] 11/12/17 12:51 ALESIA 11/12/17 12:46 Orthostatic Vitals Standing -Blood Pressure (90/60-120/80) 167/84 H -Extremity Use Right Arm -Pulse Rate (60-100) 70 Sitting -Blood Pressure (90/60-120/80) 177/86 H -Extremity Use Right Arm -Pulse Rate (60-100) 74 Lying -Blood Pressure (90/60-120/80) 156/69 H -Extremity Use Right Arm -Pulse Rate (60-100) 68 Intake and Output for Last 24 Hours 11/10/17 11/11/17 11/12/17 23:59 23:59 23:59 Intake Total 4724.6 / 4724.6 1681 / 1681 299.7 / 299.7 Output Total 1400 / 1400 1150 / 1150 Balance 3324.6 / 3324.6 531 / 531 299.7 / 299.7 Microbiology Past 72 Hours 11/09/17 21:05 Urine, Catheterized Urine Culture - Final Culture exhibits no growth. 11/10/17 07:10 Stool Stool Occult Blood (SUZANNE) - Final Occult Blood Positive Laboratory Results 11/12/17 05:16: WBC 5.8, RBC 4.24, Hgb 12.7, Hct 38.5, MCV 90.8, MCH 30.0, MCHC 33.0, RDW 14.9 H, RDW Differential 49.7 H, Plt Count 201, MPV 9.2 11/12/17 05:16: Sodium 138, Potassium 3.5, Chloride 107, Carbon Dioxide 22.0, Anion Gap 9, BUN 6 L, Creatinine 0.50 L, Estim Creat Clear Calc 47.55, Est GFR (MDRD) Af Amer 154, Est GFR (MDRD) Non-Af 127, BUN/Creatinine Ratio 12.1, Glucose 82, Calcium 8.4 L, TSH 5.54 H Current Medications Acetaminophen (Tylenol) 1,000 mg PO Q8 [facility] Last Admin: 11/12/17 06:27 Dose: 1,000 mg Al Hydroxide/Mg Hydroxide (Mylanta Ii) 15 ml PO Q6H PRN PRN PRN Reason: DYSPEPSIA Last Admin: 11/12/17 00:23 Dose: 15 ml Alendronate Sodium (Fosamax) 70 mg PO [facility] Amitriptyline HCl (Elavil) 25 mg PO QHS PRN PRN Reason: sleep Ascorbic Acid (Vitamin C) 1,000 mg PO QHS [facility] Last Admin: 11/11/17 23:56 Dose: Not Given Cholecalciferol (Vitamin D) 5,000 unit PO DAILY [facility] Last Admin: 11/11/17 10:46 Dose: 5,000 unit Docusate Sodium (Colace) 100 mg PO QHS [facility] Last Admin: 11/11/17 23:55 Dose: Not Given Doxycycline Monohydrate (Doxycycline) 100 mg PO BID [facility] Last Admin: 11/11/17 23:55 Dose: Not Given Ferrous Sulfate (Ferrous Sulfate) 325 mg PO DAILY@0800 [facility] Last Admin: 11/11/17 08:47 Dose: 325 mg Fluticasone Propionate (Flonase Nasal [place]) 2 spray NASAL QHS [facility] Last Admin: 11/11/17 23:54 Dose: 2 spray Gabapentin (Neurontin) 300 mg PO TID [facility] Guaifenesin (Robitussin Dm) 10 ml PO Q6H PRN PRN PRN Reason: cough Last Admin: 11/10/17 13:23 Dose: 10 ml Pantoprazole Sodium 40 mg/ (Sodium Chloride) 100 mls @ 300 mls/hr IV Q12 [facility] Levothyroxine Sodium (Synthroid) 50 mcg PO DAILY@0600 [facility] Last Admin: 11/12/17 06:27 Dose: 50 mcg Lisinopril (Zestril) 20 mg PO DAILY [facility] Last Admin: 11/11/17 10:46 Dose: 20 mg Loratadine (Claritin) 10 mg PO DAILY PRN PRN PRN Reason: ALLERGIES Magnesium Hydroxide (Milk Of Magnesia) 30 ml PO DAILY PRN PRN PRN Reason: Constipation Morphine Sulfate (Morphine) 1 mg IV Q4H PRN PRN PRN Reason: SEVERE PAIN (6-10/10) Last Admin: 11/12/17 11:33 Dose: 1 mg Oxycodone HCl (Oxyir) 5 mg PO Q4H PRN PRN PRN Reason: MOD-SEVERE PAIN (4-10/10) Last Admin: 11/12/17 04:46 Dose: 5 mg Polyethylene Glycol (Miralax) 17 gm PO DAILY [facility] Last Admin: 11/11/17 10:46 Dose: 17 gm Sodium Chloride () 5 - 30 ml IV UD PRN PRN Reason: SALINE FLUSH Trazodone HCl (Desyrel) 50 mg PO QHS [facility] Last Admin: 11/11/17 23:54 Dose: Not Given Assessment/Plan Active and Suspected Problems Status post total hip replacement, right (Acute) 11/07/[address] Huynh Urinary tract infection (Suspected) Fall (Acute) no LOC, lost balance Hyponatremia (Acute) Acute kidney injury (Acute) Dehydration (Acute) Anemia due to blood loss (Acute) 81 year old F with a past medical history of peptic ulcer disease, hypertension, hypothyroidism, osteoarthritis, chronic back pain, on gabapentin 300 3 times daily, allergic rhinitis, osteoporosis and asthma recently discharged from the hospital on 11/08/17 after a right total hip replacement done by Dr. Huynh on 11/07/2017. 1. Acute anemia secondary acute GI bleed, s/p 3 pRBC, Hb is stable 2. Acute GI bleed, s/p EGD today, on PPI continously, will switch with PPI bid 3. Right THR on 11/07/17, pain is controlled on oxycodone, continue with PT/OT 4. Acute kidney injury-secondary to dehydration - resolved 5. Hypertension, controlled, on Lisinopril 6. Hypothyroidism, on levothyroxine po 7. Chronic back pain on gabapentin 8. Osteoporosis, on alendronate weekly 9. Asthma, on prn inhalers 10. DVT PPx with early ambulation and SCDs - on account of GI bleed. Code Visit Inpatient E&M: 20894 Subs Hosp L2
--- NOTE | 2017-11-12 16:19 | CASEMGMT ---
Social Work Note Call from Jess at [facility] stating that they do agree with request for placement and SNF may submit their request. Placed call to Maura and kristy reich updating. SW to continue to follow and assist with discharge planning. Plan: TCU pending pre-cert. MILLICENT MorenoW
[2017-11-12] MEDS: Gabapentin 300 MG Capsule PO (17:29)
[2017-11-12] MEDS: Amitriptyline 25 MG Tablet PO (21:34)
[2017-11-12] MEDS: Doxycycline 100 MG CAPSULE PO (21:35)
[2017-11-12] MEDS: Ascorbic Acid 500 MG Tablet 1000 MG PO (21:35)
[2017-11-12] MEDS: traZODone 50 MG Tablet PO (21:36)
[2017-11-12] MEDS: Docusate Sodium 100 MG Capsule PO (21:36)
[2017-11-12] MEDS: Fluticasone 0.05% 1 SPRAY NASAL.SRY 2 SPRAY NASAL (21:36)
[2017-11-12] MEDS: 0.9% NaCl Peripheral Flush Adult/Peds IV (21:40)
[2017-11-13 03:08] VITALS: BP 154/80; PULSE 68; RESP 18; TEMP 37.1; O2SAT 99
[2017-11-13] MEDS: Acetaminophen 500 MG Tablet 1000 MG PO ×2 (06:12→14:03)
[2017-11-13] MEDS: oxyCODONE 5 MG Tablet PO ×3 (06:13→17:09)
[2017-11-13] MEDS: Levothyroxine 50 MCG Tablet PO ×2 (06:13→10:55)
[2017-11-13] MEDS: Ferrous Sulfate 325 MG Tablet PO (08:48)
[2017-11-13] MEDS: Gabapentin 300 MG Capsule PO ×3 (08:48→17:09)
[2017-11-13 09:00] VITALS: RESP 18
[2017-11-13 09:10] VITALS: BP 145/73; PULSE 66; RESP 18; TEMP 36.9; O2SAT 99
--- NOTE | 2017-11-13 10:39 | CASEMGMT ---
Social Work Note Placed call to [facility] to confirm that pre-cert had been initiated on SNF side, and it has. Will await notification of approval. Plan: TCU pending pre-cert. MILLICENT Moreno
[2017-11-13] MEDS: Doxycycline 100 MG CAPSULE PO (10:54)
[2017-11-13] MEDS: Polyethylene Glycol 3350 17 GM PACKET PO (10:54)
[2017-11-13] MEDS: Lisinopril 20 MG Tablet PO (10:54)
[2017-11-13] MEDS: Pantoprazole Sodium 40 MG Tablet PO (10:55)
[2017-11-13 12:00] VITALS: BP 148/70; BP 152/77; BP 152/79; PULSE 72; PULSE 77; PULSE 81
[2017-11-13] MEDS: amLODIPine 5 MG Tablet PO (12:45)
--- NOTE | 2017-11-13 13:15 | CASEMGMT ---
Social Work Note Call from [facility] stating that pre-cert has been received. Paged physician and anticipate discharge this date. MILLICENT MorenoW
--- NOTE | 2017-11-13 13:52 | PCM.TXEXTCAR ---
- Diet 11/12/17 17:34 Diet: Regular Diet Is pt able to select menu?: Yes Diet Comments: gluten-free, lactose-free - Routine Orders/Code Status Routine Lab Work: CBC - in 3 days, BMP - in 3 days Code Status: Full Code - Wound(s) right anterior hip Wound Type: Surgical Incision - Therapies Physical Therapy: Eval and Treat Occupational Therapy: Eval and Treat - Allergies/Procedures Done in Hospital Allergies/Adverse Reactions: Allergies grass pollen-perennial rye, standar [grass poll-perennial rye,std] Allergy (Verified 10/23/17 11:11) sinus pressure gluten Adverse Reaction (Verified 11/09/17 13:52) Food Allergy lactose Adverse Reaction (Verified 11/09/17 13:52) Food Allergy DUST Allergy (Uncoded 10/23/17 11:11) sinus pressure MOLD Allergy (Uncoded 10/23/17 11:11) SINUS PRESSURE Procedures: EGD - Type of Care/Length of Stay Estimated LOS: Convalescent Care Less Than 30 days Type of Care Needed: Skilled Rehab Potential: Good Prognosis: Good - Additional Orders/Day of Discharge Day of Discharge: 11/13/17 - Dietary and Speech Recommendations Dietitian Recommendations/Changes: Rec adv diet as tolerated to regular, no gastric stimulant- gluten free and lactose free. - Follow Up Care Primary Care Physician: Roma Grajeda DO [Primary Care Provider] - Please follow up with your Primary Care Physician in: within 2 weeks of discharge from [facility] Please Follow Up With: Richard Adler MD When: within 4 weeks
--- NOTE | 2017-11-13 13:55 | PCM.DC.SUM ---
Discharge Date and Diagnosis Date of Admission: 11/09/17 Date of Discharge: 11/13/17 - Primary Discharge Diagnosis Active and Suspected Problems Acute gastritis Acute duodenitis Distal esophagitis Status post total hip replacement, right (Acute) 11/07/[address] Huynh Urinary tract infection (Suspected) Fall (Acute) no LOC, lost balance Hyponatremia (Acute) Acute kidney injury (Acute) Dehydration (Acute) Anemia due to blood loss (Acute) - Secondary Discharge Diagnosis Chronic Problems History of peptic ulcer disease (Chronic) Hypothyroidism (Chronic) Hypertension (Chronic) Hospital Course and Treatment Imaging Results: Clinical Impression(s) from Imaging Studies Chest X-Ray 11/09/17 10:31 IMPRESSION: Stable cardiomegaly with diffuse interstitial pattern. No acute pathology. Electronically Signed: Viet Gimenez MD at 10:58 EST , Service support , Pelvis X-Ray 11/09/17 20:07 IMPRESSION: Status post right total knee replacement with postsurgical changes in the adjacent soft tissue. No acute bony injury.. Electronically Signed: Ray Carballo DO at 20:26 EST Tel [phone], Service support , General surgery - Dr. Adler Operations: None Procedures: EGD Summary of Care Provided: 81 year old F with a past medical history of peptic ulcer disease, hypertension, hypothyroidism, osteoarthritis, chronic back pain, on gabapentin 300 tid, osteoporosis and asthma recently discharged from the hospital on 11/08/17 after a right total hip replacement done by Dr. Huynh on 11/07/2017. She was admitted after a fall, could not get up, paramedics were called, BP was low, had black tarry stools. 1. Acute anemia secondary acute GI bleed, s/p 3 pRBC, Hb is stable at 12.7 on discharge. 2. Acute GI bleed, s/p EGD which showed acute distal esophagitis, gastritis and duodenitis, on PPI BID, will follow-up with Dr. Adler for biopsy report in a week and also for repeat EGD in 1 month. Off aspirin. 3. Right THR on 11/07/17, pain is controlled on oxycodone, continue with PT/OT. Stopped tramadol and norco on discharge 4. Acute kidney injury-secondary to dehydration - resolved 5. Hypertension, controlled, on Lisinopril 6. Hypothyroidism, on levothyroxine po 7. Chronic back pain on gabapentin 8. Osteoporosis, on alendronate weekly, need to be careful with findings of distal esophagitis. Patient encouraged to drink lots of water. 9. Asthma, on prn inhalers 10. DVT PPx with early ambulation and SCDs - on account of GI bleed. Discharge Diet: No Restrictions Discharge Activity: Return to Normal Activity Home Medications: Medications to take at Discharge Amlodipine [Norvasc] 5 mg PO DAILY 12/31/14 Gabapentin [Neurontin] 300 mg PO TID 12/31/14 Levothyroxine [Synthroid] 50 mcg PO DAILY 12/31/14 Lisinopril [Zestril] 20 mg PO DAILY 12/31/14 Trazodone HCl [Desyrel] 50 mg PO QHS 12/31/14 Ascorbic Acid [Vitamin C] 1,000 mg PO QHS 03/23/16 Methenamine Mandelate 1 gm PO QHS 03/23/16 Guaifenesin [Mucinex] 600 mg PO BID PRN PRN 08/25/16 Polyethylene Glycol 3350 [Miralax] 17 gm PO DAILY 08/25/16 Alendronate Sodium [Fosamax] 70 mg PO FR 03/09/17 Cetirizine HCl [Zyrtec] 10 mg PO PRN PRN 03/09/17 Fluticasone 0.05% [Flonase Nasal [place]] 2 spray NASAL QHS 03/09/17 Bio X4 1 cap PO PRN PRN 10/23/17 Cholecalciferol (Vitamin D3) [Vitamin D3] 5,000 unit PO DAILY 10/23/17 Docusate Sodium [Stool Softener] 100 mg PO QHS 10/23/17 Esomeprazole Magnesium [Nexium 24Hr] 20 mg PO PRN PRN 10/23/17 Ferrous Sulfate 325 mg PO DAILY@0800 10/23/17 Hyoscyamine Sulfate 0.125 mg SL PRN PRN 10/23/17 Linaclotide [Linzess] 72 mcg PO DAILY 10/23/17 Mirabegron [Myrbetriq] 25 mg PO DAILY 10/23/17 Simethicone [Gas Relief] 125 mg PO PRN PRN 10/23/17 Oxycodone [Oxyir] 5 - 10 mg PO Q4H PRN PRN 7 Days #60 tablet 11/08/17 Amitriptyline HCl [Elavil] 25 mg PO QHS PRN 11/12/17 Hydrocodone/Acetaminophen [[place] 5-325 Tablet] 1 tab PO 11/12/17 Acetaminophen [Tylenol] 1,000 mg PO Q8 11/13/17 Doxycycline 100 mg PO BID 11/13/17 Pantoprazole Sodium [Protonix] 40 mg PO BID tablet 11/13/17 Primary Care Physician: Roma Grajeda DO [Primary Care Provider] - Please follow up with your Primary Care Physician in: within 2 weeks of discharge from [facility] Please Follow Up With: Richard Adler MD When: within 4 weeks Disposition: Intermediate facility Minutes spent on discharge:: 25 Patient Condition:: Stable Meaningful Use Info Meaningful Use Diagnoses (Choose all that apply): None applicable Code Visit Inpatient E&M: 88321 Disch Hosp
--- NOTE | 2017-11-13 17:06 | PCM.PN.SRG ---
Patient Problems: Active and Suspected Problems Status post total hip replacement, right (Acute) 11/07/[address] Huynh Urinary tract infection (Suspected) Fall (Acute) no LOC, lost balance Hyponatremia (Acute) Acute kidney injury (Acute) Dehydration (Acute) Anemia due to blood loss (Acute) Subjective: no further bleeding episodes - Physical Exam General: Alert, Oriented x3 Neck: Supple Lungs: Clear to auscultation, Normal air movement Cardiovascular: Regular rate, Regular Rhythm Abdomen: Bowel Sounds Present, Soft, Non Tender Vital Signs Temp Pulse Resp BP Pulse Ox 98.4 F 81 18 152/77 H 99 11/13/17 09:10 11/13/17 12:00 11/13/17 09:10 11/13/17 12:00 11/13/17 09:10 Oxygen Delivery Method Room Air Weight: 67.132 kg Body Mass Index (BMI) 29.4 Orthostatic Vital Signs Start: 11/10/17 06:45 Freq: q24h Status: Active Protocol: Activity Type Activity Date Activity User E-Sign Co-Sign Detail Recorded Client Recorded Date Recorded By Document 11/13/17 12:00 ALESIA [id number] 11/13/17 12:36 ALESIA 11/13/17 12:00 Orthostatic Vitals Standing -Blood Pressure (90/60-120/80) 148/70 H -Extremity Use Right Arm -Pulse Rate (60-100) 77 Sitting -Blood Pressure (90/60-120/80) 152/79 H -Extremity Use Right Arm -Pulse Rate (60-100) 72 Lying -Blood Pressure (90/60-120/80) 152/77 H -Extremity Use Right Arm -Pulse Rate (60-100) 81 Intake and Output for Last 24 Hours 11/11/17 11/12/17 11/13/17 23:59 23:59 23:59 Intake Total 1681 / 1681 1249.7 / 1249.7 1366 / 1366 Output Total 1150 / 1150 Balance 531 / 531 1249.7 / 1249.7 1366 / 1366 Microbiology Past 72 Hours 11/09/17 21:05 Urine Culture - Final Urine, Catheterized Culture exhibits no growth. Assessment/Plan Active and Suspected Problems Status post total hip replacement, right (Acute) 11/07/[address] Huynh Urinary tract infection (Suspected) Fall (Acute) no LOC, lost balance Hyponatremia (Acute) Acute kidney injury (Acute) Dehydration (Acute) Anemia due to blood loss (Acute) melena-likely upper GI bleed. upper endoscopy demonstrated duodenitis, gastritis, small hiatal hernia and distal esophagitis but was really not significantly impressive. Whether this was due to improvement in the patient's findings. Due to her 3 days of ibuprofen to pop inhibitors is difficult to ascertain area in the event there were no signs of significant ulceration or obvious causes of her GI bleed. There was a smaller AVM along the greater curvature of the stomach but this had no sequelae of bleeding, and I saw no other signs of AVMs in the area. As the patient is otherwise doing well, and findings were me discharged home. If the patient notes further episodes of bleeding, I recommend she return to [facility] was department and undergo bleeding scan to try to assess an occult origin of her bleed. Otherwise, I would recommend repeat endoscopy in approximately one month. I've asked that she follow up my office in one week to review her pathology reports and plan for additional endoscopic evaluation to assure the degree of inflammation she has has resolved on proton pump inhibitors.
[2017-11-13 17:40] VITALS: BP 154/70; PULSE 68; RESP 16; TEMP 36.9; O2SAT 97
== END 2017-11-13 17:19 | disposition skilled nursing facility (03) | DRG 378 ==
LOC: ED 11:18 → MS3 12:46
PROVIDERS: Surgery; Admitting Provider Internal Medicine; Emergency Provider Emergency Medicine; Family Provider Family Medicine; PCP Family Medicine; Visit Provider Internal Medicine
PROC: 0DJ08ZZ Inspection of Upper Intestinal Tract, Via Natural or Artificial Opening Endoscopic (ICD-10-PCS; CPT 43235; principal; 2017-11-12 14:25)
DX: K92.2 Gastrointestinal hemorrhage, unspecified (principal); D62 Acute posthemorrhagic anemia; N17.9 Acute kidney failure, unspecified; E86.0 Dehydration; E87.1 Hypo-osmolality and hyponatremia; W19.XXXA Unspecified fall, initial encounter; E03.9 Hypothyroidism, unspecified; I10 Essential (primary) hypertension; M54.9 Dorsalgia, unspecified; G89.29 Other chronic pain; Z96.641 Presence of right artificial hip joint; J45.909 Unspecified asthma, uncomplicated; K31.819 Angiodysplasia of stomach and duodenum without bleeding; K44.9 Diaphragmatic hernia without obstruction or gangrene; K29.80 Duodenitis without bleeding; K20.9 Esophagitis, unspecified; K29.00 Acute gastritis without bleeding; M81.0 Age-related osteoporosis without current pathological fracture; Y92.009 Unspecified place in unspecified non-institutional (private) residence as the place of occurrence of the external cause; Z87.11 Personal history of peptic ulcer disease; Z79.899 Other long term (current) drug therapy
CPT/HCPCS: 36415; 71045; 72170; 80048; 80053; 81001; 82274; 83735; 84100; 84443; 85014; 85018; 85025; 85027; 86850; 86900; 86920; 86922; 87086; 87088; 88305; 88342; 93005; 97110; 97116; 97162; 97166; 97530; 97802; 99285; J7030; J7040; J7050; P9016; A4216; J3490

== ENCOUNTER 2017-11-13 17:27 | Inpatient (IN) | payer MEDICARE, SELFPAY ==
[2017-11-09 13:12] VITALS: BMI 29.4
[2017-11-13 12:00] VITALS: BP 148/70; BP 152/77; BP 152/79
[2017-11-13 17:30] VITALS: BP 146/79; PULSE 80; RESP 16; TEMP 36.4; O2SAT 98
--- NOTE | 2017-11-13 17:30 | NURSING ---
pt arrived from [facility] via WC w/KATT & UTI.
[2017-11-13 18:01] VITALS: BMI 29.6
--- NOTE | 2017-11-13 18:13 | NURSING ---
Dr Frausto here and changed some medications on DC orders from [facility]. DC'd Aspirin, doxycycline, famotidine, norco and ultram.
[2017-11-13 18:15] VITALS: BMI 29.6
[2017-11-13] MEDS: Acetaminophen 500 MG Tablet 1000 MG PO (20:49)
[2017-11-13] MEDS: Gabapentin 300 MG Capsule PO (20:50)
[2017-11-13] MEDS: traZODone 50 MG Tablet PO (20:50)
[2017-11-13] MEDS: Fluticasone 0.05% 1 SPRAY NASAL.SRY 2 SPRAY NASAL (20:50)
[2017-11-13] MEDS: Docusate Sodium 100 MG Capsule PO (20:50)
[2017-11-13] MEDS: Ascorbic Acid 500 MG Tablet 1000 MG PO (20:50)
--- NOTE | 2017-11-13 21:01 | PCM.HP.STD ---
Problem List (1) Melena Status: Acute (2) Peptic ulcer disease Status: Chronic (3) Acute gastritis Status: Acute (4) Osteoarthritis of right hip Status: Chronic (5) Low back pain Status: Chronic (6) Allergic rhinitis Status: Chronic (7) Osteoporosis Status: Chronic (8) Asthma Status: Chronic (9) Insomnia Status: Chronic (10) Recurrent UTI Status: Chronic (11) Constipation Status: Chronic (12) Overactive bladder Status: Chronic (13) Hyponatremia Status: Acute (14) Fall Status: Acute Comment: no LOC, lost balance (15) Urinary tract infection Status: Suspected (16) Anemia due to blood loss Status: Acute (17) Dehydration Status: Acute (18) Acute kidney injury Status: Acute (19) Hypothyroidism Status: Chronic (20) Hypertension Status: Chronic History of Present Illness Date of Admission: 11/13/17 Chief Complaint: Here for rehabilitation, strengthening, prior to discharge home with spouse. The patient is a 81 year old Female with below past medical history presented to [facility] Emergency Department 11/09/2017 with fall, weakness, recent hip surgery. 11/09/2017 Chest X-ray, stable cardiomegaly with diffuse interstitial pattern. 11/09/2017 EKG normal sinus rhythm, normal EKG. Fall in AM. Right total hip arthroplasty 2 days ago, blood pressure low per squad. Weak, tired, since surgery. unable to care for patient at home. Takes gabapentin, tramadol for chronic low back pain. Hemoglobin 8.8, UA > 100 WBC. IV fluids given, Rocephin 1GM IV given. 11/09/2017 Admit to Hospital. Aspirin 325MG twice daily for DVT prophylaxis, history of peptic ulcer disease, patient noted black tarry stools. Patient on gabapentin, tramadol, oxycodone, trazodone which maybe complicating her presentation. X-ray pelvis, hip to look for fracture, misalignment. Normal Saline 2 liters IV given, cut back Gabapentin dose. Stool guaiac, Protonix drip for melena. Transfused 3 units packed red blood cells for anemia secondary to blood loss. 11/09/2017 X-ray pelvis showed status post right hip replacement, no fracture, no misalignment. 11/12/2017 Dr. Adler performed EGD showed mild gastritis, duodenitis, small gastric AVM, small hiatal hernia, mild distal esophagitis. Transfused 3 units packed red blood cells for anemia. PPI BID, off aspirin for gastritis. Oxycodone for pain, Tramadol, [place] stopped. Acute kidney injury resolved with IV fluid hydration. 11/13/2017 Admit to TCU for rehabilitation, strengthening, prior to discharge home with spouse. Past Medical History Past Medical History (Chronic Problems): Chronic Problems Peptic ulcer disease (Chronic) Osteoarthritis of right hip (Chronic) Low back pain (Chronic) Allergic rhinitis (Chronic) Osteoporosis (Chronic) Asthma (Chronic) Insomnia (Chronic) Recurrent UTI (Chronic) Constipation (Chronic) Overactive bladder (Chronic) History of peptic ulcer disease (Chronic) Hypothyroidism (Chronic) Hypertension (Chronic) Allergies grass pollen-perennial rye, standar [grass poll-perennial rye,std] Allergy (Verified 10/23/17 11:11) sinus pressure gluten Adverse Reaction (Verified 11/09/17 13:52) Food Allergy lactose Adverse Reaction (Verified 11/09/17 13:52) Food Allergy DUST Allergy (Uncoded 10/23/17 11:11) sinus pressure MOLD Allergy (Uncoded 10/23/17 11:11) SINUS PRESSURE Home Medications: Ambulatory Orders Medication Instructions Recorded Amlodipine [Norvasc] 5 mg PO DAILY 12/31/14 Gabapentin [Neurontin] 300 mg PO TID 12/31/14 Levothyroxine [Synthroid] 50 mcg PO DAILY 12/31/14 Lisinopril [Zestril] 20 mg PO DAILY 12/31/14 Trazodone HCl [Desyrel] 50 mg PO QHS 12/31/14 Ascorbic Acid [Vitamin C] 1,000 mg PO QHS 03/23/16 Methenamine Mandelate 1 gm PO QHS 03/23/16 Guaifenesin [Mucinex] 600 mg PO BID PRN PRN 08/25/16 Polyethylene Glycol 3350 [Miralax] 17 gm PO DAILY 08/25/16 Alendronate Sodium [Fosamax] 70 mg PO FR 03/09/17 Cetirizine HCl [Zyrtec] 10 mg PO PRN PRN 03/09/17 Fluticasone 0.05% [Flonase Nasal 2 spray NASAL QHS 03/09/17 [place]] Bio X4 1 cap PO PRN PRN 10/23/17 Cholecalciferol (Vitamin D3) 5,000 unit PO DAILY 10/23/17 [Vitamin D3] Docusate Sodium [Stool Softener] 100 mg PO QHS 10/23/17 Esomeprazole Magnesium [Nexium 20 mg PO PRN PRN 10/23/17 24Hr] Ferrous Sulfate 325 mg PO DAILY@0800 10/23/17 Hyoscyamine Sulfate 0.125 mg SL PRN PRN 10/23/17 Linaclotide [Linzess] 72 mcg PO DAILY 10/23/17 Mirabegron [Myrbetriq] 25 mg PO DAILY 10/23/17 Simethicone [Gas Relief] 125 mg PO PRN PRN 10/23/17 Oxycodone [Oxyir] 5 - 10 mg PO Q4H PRN PRN 7 Days 11/08/17 #60 tablet Amitriptyline HCl [Elavil] 25 mg PO QHS PRN 11/12/17 Acetaminophen [Tylenol] 1,000 mg PO Q8 11/13/17 Pantoprazole Sodium [Protonix] 40 mg PO BID 11/13/17 Surgical History: cholecystectomy, total hip arthroplasty - Right, 11/07/[address] Huynh., - - both shoulders,back knee and shoulders,eye surgeries, right knee surgery. 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: No pertinent [employer] CON[employer]ANT history Lives: Spouse/ Significant Other Smoking Status: Never smoker Tobacco Use: Non-smoker Alcohol: None Drugs: None - *Family History Maternal History Items: - - bowel cancer Paternal History Items: - - chronic lung disease Review of Systems Constitutional: Denies: Chills, Fever, Weight Change HEENT: Denies: Head Aches, Sinus Congestion, Sinus Drainage Cardiovascular: Denies: Chest Pain, Palpitations Respiratory: Denies: Cough, Shortness of breath at rest, Sputum production Gastrointestinal: Denies: Abdominal Pain, Nausea, Vomiting Genitourinary: Denies: Dysuria Musculoskeletal: Denies: Joint Pain, Joint Tenderness Skin: Denies: Rash, Wounds Neurological: Denies: Numbness, Tingling, Focal weakness Psychiatric: Denies: Anxiety, Depression, Homicidal Ideations, Suicidal Ideations Hematologic/ Lymphatic: Denies: Easy Bruising, Easy Bleeding VTE Information - Inpt Only VTE Present on Admission: No VTE Mechan Device Prophylaxis: Knee High RITESH Hose VTE Pharm Prophylaxis ordered?: No Reason prophylaxis not ordered:: Medical Contraindication Patient Problems: Active and Suspected Problems Melena (Acute) Acute gastritis (Acute) - Physical Exam General: Alert, Oriented x3, Cooperative HEENT: Atraumatic, PERRLA, EOMI, Normocephalic Neck: Supple, No JVD, Negative Carotid Bruits Lungs: Clear to auscultation, Normal air movement Cardiovascular: Regular rate, No murmurs Abdomen: Bowel Sounds Present, Soft, Non Tender Extremities: No edema, Capillary Refill Less than 3 Seconds Skin: No rashes, No breakdown Musculoskeletal: No Tenderness to Palpation of Joints or Extremities Neurological: Cranial nerves II-XII grossly intact Psych/Mental Status: Normal Affect, Appropriate Vital Signs BP 152/77 H 11/13/17 12:00 Oxygen Delivery Method Room Air Weight: 66.5 kg Body Mass Index (BMI) 29.6 Assessment/Plan Active and Suspected Problems Melena (Acute) Acute gastritis (Acute) 81 year old female with below past medical history hospitalized for fall secondary to anemia from acute gastritis requiring blood transfusion, complicated by acute kidney injury from dehydration, side effects from medications, admitted to TCU for debility, for rehabilitation, strengthening, prior to discharge home with spouse. Debility - PT/OT. Pain - Tylenol 1000MG Q8H, Oxycodone 5-10MG Q4H PRN moderate to severe pain. Bowel - Miralax 17GM daily, Senna/colace 2 tablets BID, Dulcolax 10MG PO daily PRN. Pneumonia vaccination - Administer Prevnar 13 and/or Pneumovax 23 as necessary. DVT prophylaxis - Relatively contraindicated due to recent upper GI bleed. Osteoporosis - Fosamax 70MG per week, Vitamin D3 5000IU daily. Insomnia - Trazodone 50MG QHS, Melatonin 10MG QHS. Hypertension - Lisinopril 20MG daily, Amlodipine 5MG daily. Recurrent UTI - Methenamine 1000MG QHS, Vitamin C 1000MG QHS. Iron deficiency anemia - status post 3 units PRBC transfusion, ferrous sulfate 325MG daily. Allergic rhinitis - Flonase 2 sprays QHS, Loratadine 10MG daily PRN. Neuropathic pain - Gabapentin 300MG TID. Congestion - Mucinex 600MG BID PRN. IBS - Levsin 0.125MG SL PRN bowel spasm. Hypothyroidism - Levothyroxine 50MCG daily. OAB - Myrbetriq 25MG daily. GERD - Pantoprazole 40MG BID, repeat EGD with Dr. Adler in 4 weeks. Gas - Simethicone 120MG 4x/day PRN.
--- NOTE | 2017-11-13 21:13 | HP.PCM_ITS ---
Problem List (1) Melena Status: Acute (2) Peptic ulcer disease Status: Chronic (3) Acute gastritis Status: Acute (4) Osteoarthritis of right hip Status: Chronic (5) Low back pain Status: Chronic (6) Allergic rhinitis Status: Chronic (7) Osteoporosis Status: Chronic (8) Asthma Status: Chronic (9) Insomnia Status: Chronic (10) Recurrent UTI Status: Chronic (11) Constipation Status: Chronic (12) Overactive bladder Status: Chronic (13) Hyponatremia Status: Acute (14) Fall Status: Acute Comment: no LOC, lost balance (15) Urinary tract infection Status: Suspected (16) Anemia due to blood loss Status: Acute (17) Dehydration Status: Acute (18) Acute kidney injury Status: Acute (19) Hypothyroidism Status: Chronic (20) Hypertension Status: Chronic History of Present Illness Date of Admission: 11/13/17 Chief Complaint: Here for rehabilitation, strengthening, prior to discharge home with spouse. The patient is a 81 year old Female with below past medical history presented to [facility] Emergency Department 11/09/2017 with fall, weakness, recent hip surgery. 11/09/2017 Chest X-ray, stable cardiomegaly with diffuse interstitial pattern. 11/09/2017 EKG normal sinus rhythm, normal EKG. Fall in AM. Right total hip arthroplasty 2 days ago, blood pressure low per squad. Weak, tired, since surgery. unable to care for patient at home. Takes gabapentin, tramadol for chronic low back pain. Hemoglobin 8.8, UA > 100 WBC. IV fluids given, Rocephin 1GM IV given. 11/09/2017 Admit to Hospital. Aspirin 325MG twice daily for DVT prophylaxis, history of peptic ulcer disease, patient noted black tarry stools. Patient on gabapentin, tramadol, oxycodone, trazodone which maybe complicating her presentation. X-ray pelvis, hip to look for fracture, misalignment. Normal Saline 2 liters IV given, cut back Gabapentin dose. Stool guaiac, Protonix drip for melena. Transfused 3 units packed red blood cells for anemia secondary to blood loss. 11/09/2017 X-ray pelvis showed status post right hip replacement, no fracture, no misalignment. 11/12/2017 Dr. Adler performed EGD showed mild gastritis, duodenitis, small gastric AVM, small hiatal hernia, mild distal esophagitis. Transfused 3 units packed red blood cells for anemia. PPI BID, off aspirin for gastritis. Oxycodone for pain, Tramadol, [place] stopped. Acute kidney injury resolved with IV fluid hydration. 11/13/2017 Admit to TCU for rehabilitation, strengthening, prior to discharge home with spouse. Past Medical History Past Medical History (Chronic Problems): Chronic Problems Peptic ulcer disease (Chronic) Osteoarthritis of right hip (Chronic) Low back pain (Chronic) Allergic rhinitis (Chronic) Osteoporosis (Chronic) Asthma (Chronic) Insomnia (Chronic) Recurrent UTI (Chronic) Constipation (Chronic) Overactive bladder (Chronic) History of peptic ulcer disease (Chronic) Hypothyroidism (Chronic) Hypertension (Chronic) Allergies grass pollen-perennial rye, standar [grass poll-perennial rye,std] Allergy ( Verified 10/23/17 11:11) sinus pressure gluten Adverse Reaction (Verified 11/09/17 13:52) Food Allergy lactose Adverse Reaction (Verified 11/09/17 13:52) Food Allergy DUST Allergy (Uncoded 10/23/17 11:11) sinus pressure MOLD Allergy (Uncoded 10/23/17 11:11) SINUS PRESSURE Home Medications: Ambulatory Orders Medication Instructions Recorded Amlodipine [Norvasc] 5 mg PO DAILY 12/31/14 Gabapentin [Neurontin] 300 mg PO TID 12/31/14 Levothyroxine [Synthroid] 50 mcg PO DAILY 12/31/14 Lisinopril [Zestril] 20 mg PO DAILY 12/31/14 Trazodone HCl [Desyrel] 50 mg PO QHS 12/31/14 Ascorbic Acid [Vitamin C] 1,000 mg PO QHS 03/23/16 Methenamine Mandelate 1 gm PO QHS 03/23/16 Guaifenesin [Mucinex] 600 mg PO BID PRN PRN 08/25/16 Polyethylene Glycol 3350 [Miralax] 17 gm PO DAILY 08/25/16 Alendronate Sodium [Fosamax] 70 mg PO FR 03/09/17 Cetirizine HCl [Zyrtec] 10 mg PO PRN PRN 03/09/17 Fluticasone 0.05% [Flonase Nasal 2 spray NASAL QHS 03/09/17 [place]] Bio X4 1 cap PO PRN PRN 10/23/17 Cholecalciferol (Vitamin D3) 5,000 unit PO DAILY 10/23/17 [Vitamin D3] Docusate Sodium [Stool Softener] 100 mg PO QHS 10/23/17 Esomeprazole Magnesium [Nexium 20 mg PO PRN PRN 10/23/17 24Hr] Ferrous Sulfate 325 mg PO DAILY@0800 10/23/17 Hyoscyamine Sulfate 0.125 mg SL PRN PRN 10/23/17 Linaclotide [Linzess] 72 mcg PO DAILY 10/23/17 Mirabegron [Myrbetriq] 25 mg PO DAILY 10/23/17 Simethicone [Gas Relief] 125 mg PO PRN PRN 10/23/17 Oxycodone [Oxyir] 5 - 10 mg PO Q4H PRN PRN 7 Days 11/08/17 #60 tablet Amitriptyline HCl [Elavil] 25 mg PO QHS PRN 11/12/17 Acetaminophen [Tylenol] 1,000 mg PO Q8 11/13/17 Pantoprazole Sodium [Protonix] 40 mg PO BID 11/13/17 Surgical History: cholecystectomy, total hip arthroplasty - Right, 11/07/[address] Huynh., - - both shoulders,back knee and shoulders,eye surgeries, right knee surgery. Psychiatric History: No pertinent psych hx PRICING DIRECTOR History: No pertinent PRICING DIRECTOR history Lives: Spouse/ Significant Other Smoking Status: Never smoker Tobacco Use: Non-smoker Alcohol: None Drugs: None - *Family History Maternal History Items: - - bowel cancer Paternal History Items: - - chronic lung disease Review of Systems Constitutional: Denies: Chills, Fever, Weight Change HEENT: Denies: Head Aches, Sinus Congestion, Sinus Drainage Cardiovascular: Denies: Chest Pain, Palpitations Respiratory: Denies: Cough, Shortness of breath at rest, Sputum production Gastrointestinal: Denies: Abdominal Pain, Nausea, Vomiting Genitourinary: Denies: Dysuria Musculoskeletal: Denies: Joint Pain, Joint Tenderness Skin: Denies: Rash, Wounds Neurological: Denies: Numbness, Tingling, Focal weakness Psychiatric: Denies: Anxiety, Depression, Homicidal Ideations, Suicidal Ideations Hematologic/ Lymphatic: Denies: Easy Bruising, Easy Bleeding VTE Information - Inpt Only VTE Present on Admission: No VTE Mechan Device Prophylaxis: Knee High RITESH Hose VTE Pharm Prophylaxis ordered?: No Reason prophylaxis not ordered:: Medical Contraindication Patient Problems: Active and Suspected Problems Melena (Acute) Acute gastritis (Acute) - Physical Exam General: Alert, Oriented x3, Cooperative HEENT: Atraumatic, PERRLA, EOMI, Normocephalic Neck: Supple, No JVD, Negative Carotid Bruits Lungs: Clear to auscultation, Normal air movement Cardiovascular: Regular rate, No murmurs Abdomen: Bowel Sounds Present, Soft, Non Tender Extremities: No edema, Capillary Refill Less than 3 Seconds Skin: No rashes, No breakdown Musculoskeletal: No Tenderness to Palpation of Joints or Extremities Neurological: Cranial nerves II-XII grossly intact Psych/Mental Status: Normal Affect, Appropriate Vital Signs BP 152/77 H 11/13/17 12:00 Oxygen Delivery Method Room Air Weight: 66.5 kg Body Mass Index (BMI) 29.6 Assessment/Plan Active and Suspected Problems Melena (Acute) Acute gastritis (Acute) 81 year old female with below past medical history hospitalized for fall secondary to anemia from acute gastritis requiring blood transfusion, complicated by acute kidney injury from dehydration, side effects from medications, admitted to TCU for debility, for rehabilitation, strengthening, prior to discharge home with spouse. * Debility - PT/OT. * Pain - Tylenol 1000MG Q8H, Oxycodone 5-10MG Q4H PRN moderate to severe pain. * Bowel - Miralax 17GM daily, Senna/colace 2 tablets BID, Dulcolax 10MG PO daily PRN. * Pneumonia vaccination - Administer Prevnar 13 and/or Pneumovax 23 as necessary. * DVT prophylaxis - Relatively contraindicated due to recent upper GI bleed. * Osteoporosis - Fosamax 70MG per week, Vitamin D3 5000IU daily. * Insomnia - Trazodone 50MG QHS, Melatonin 10MG QHS. * Hypertension - Lisinopril 20MG daily, Amlodipine 5MG daily. * Recurrent UTI - Methenamine 1000MG QHS, Vitamin C 1000MG QHS. * Iron deficiency anemia - status post 3 units PRBC transfusion, ferrous sulfate 325MG daily. * Allergic rhinitis - Flonase 2 sprays QHS, Loratadine 10MG daily PRN. * Neuropathic pain - Gabapentin 300MG TID. * Congestion - Mucinex 600MG BID PRN. * IBS - Levsin 0.125MG SL PRN bowel spasm. * Hypothyroidism - Levothyroxine 50MCG daily. * OAB - Myrbetriq 25MG daily. * GERD - Pantoprazole 40MG BID, repeat EGD with Dr. Adler in 4 weeks. * Gas - Simethicone 120MG 4x/day PRN.
[2017-11-13] MEDS: MELATONIN 10 MG TABLET PO (22:40)
[2017-11-13] MEDS: oxyCODONE 5 MG Tablet PO (22:40)
[2017-11-14 05:57] LABS: Absolute Lymphocyte Count 0.99 X10^3/ul (0.83-4.51); Absolute Neutrophil Count 3.4 X10^3/uL (2.0-7.7); Basophil# 0.04 X10^3/uL; Basophil% 0.7 % (0-1); Eosinophil# 0.34 X10^3/uL; Eosinophils% 5.8 % (0-5); Hematocrit 39.8 % (37-47); Hemoglobin 13.1 g/dl (12.0-15.0); Lymphocyte # 0.99 X10^3/ul (4.0); Mean Corp Hgb Conc 32.9 g/gl (32-36); Mean Corpuscular Hgb 30.4 pg (27.0-32.0); Mean Corpuscular Volume 92.3 fL (81-99); Mean Platelet Vol. 9.5 fl (6.2-12.0); Monocyte# 1.02 X10^3/uL; Monocyte% 17.5 % (0-10); Neutrophil # 3.41 X10^3/uL (2.7-7.7); Neutrophil % 58.5 % (47-70); Platelet Count 274 K/mm3 (150-450); RBC Distribution Width CV 14.5 % (11.6-14.6); RBC Distribution Width SD 47.6 fl (35.1-43.9); Red Blood Count 4.31 M/mm3 (4.2-5.4); White Blood Count 5.8 K/mm3 (4.4-11.0)
[2017-11-14] MEDS: Senna/Docusate Sodium 1 Tablet 2 TABLET PO ×2 (05:58→17:05)
[2017-11-14] MEDS: Polyethylene Glycol 3350 17 GM PACKET PO (05:58)
[2017-11-14] MEDS: Acetaminophen 500 MG Tablet 1000 MG PO ×3 (05:59→21:12)
[2017-11-14] MEDS: Pantoprazole Sodium 40 MG Tablet PO ×2 (05:59→17:05)
[2017-11-14] MEDS: Lisinopril 20 MG Tablet PO (05:59)
[2017-11-14] MEDS: amLODIPine 5 MG Tablet PO (05:59)
[2017-11-14] MEDS: Mirabegron 25 MG TAB.ER.24H PO (05:59)
[2017-11-14] MEDS: Levothyroxine 50 MCG Tablet PO (05:59)
[2017-11-14 06:01] LABS: POSITIVE COUNT NO; POSITIVE DIFFERENTIAL NO; POSITIVE MORPHOLOGY NO
[2017-11-14 06:15] LABS: Anion Gap 9 (5-15); BUN 14 mg/dL (7-18); BUN/Creat Ratio 23.2 RATIO (10-20); Calcium,Total 8.3 mg/dL (8.5-10.1); Chloride 105 mmol/L (98-107); EST Glomerular Filtration Rate 101 mL/min (>60); Est Glom Filt Rate - Afr Amer 123 mL/min (>60); Glucose 91 mg/dL (74-106); Potassium 3.3 mmol/L (3.5-5.1); Sodium Level 139 mmol/L (136-145)
[2017-11-14] MEDS: Gabapentin 300 MG Capsule PO ×3 (08:43→17:05)
[2017-11-14] MEDS: oxyCODONE 5 MG Tablet PO ×3 (08:46→20:08)
[2017-11-14] MEDS: Ferrous Sulfate 325 MG Tablet PO (10:45)
[2017-11-14] MEDS: Tuberculin,Purif.prot.deriv. 50 TU/ML Vial 5 ML ID (10:46)
--- NOTE | 2017-11-14 12:11 | PCM.PN.RX ---
<Abram Caba - Last Filed: 11/14/17 12:11> Progress Note - Pharmacy Subjective: TCU Admission Objective: Allergies grass pollen-perennial rye, standar [grass poll-perennial rye,std] Allergy (Verified 10/23/17 11:11) sinus pressure gluten Adverse Reaction (Verified 11/09/17 13:52) Food Allergy lactose Adverse Reaction (Verified 11/09/17 13:52) Food Allergy DUST Allergy (Uncoded 10/23/17 11:11) sinus pressure MOLD Allergy (Uncoded 10/23/17 11:11) SINUS PRESSURE Home Medications Medication Instructions Recorded Amlodipine [Norvasc] 5 mg PO DAILY 12/31/14 Gabapentin [Neurontin] 300 mg PO TID 12/31/14 Levothyroxine [Synthroid] 50 mcg PO DAILY 12/31/14 Lisinopril [Zestril] 20 mg PO DAILY 12/31/14 Trazodone HCl [Desyrel] 50 mg PO QHS 12/31/14 Ascorbic Acid [Vitamin C] 1,000 mg PO QHS 03/23/16 Methenamine Mandelate 1 gm PO QHS 03/23/16 Guaifenesin [Mucinex] 600 mg PO BID PRN PRN 08/25/16 Polyethylene Glycol 3350 [Miralax] 17 gm PO DAILY 08/25/16 Alendronate Sodium [Fosamax] 70 mg PO FR 03/09/17 Cetirizine HCl [Zyrtec] 10 mg PO PRN PRN 03/09/17 Fluticasone 0.05% [Flonase Nasal 2 spray NASAL QHS 03/09/17 [place]] Bio X4 1 cap PO PRN PRN 10/23/17 Cholecalciferol (Vitamin D3) 5,000 unit PO DAILY 10/23/17 [Vitamin D3] Docusate Sodium [Stool Softener] 100 mg PO QHS 10/23/17 Esomeprazole Magnesium [Nexium 20 mg PO PRN PRN 10/23/17 24Hr] Ferrous Sulfate 325 mg PO DAILY@0800 10/23/17 Hyoscyamine Sulfate 0.125 mg SL PRN PRN 10/23/17 Linaclotide [Linzess] 72 mcg PO DAILY 10/23/17 Mirabegron [Myrbetriq] 25 mg PO DAILY 10/23/17 Simethicone [Gas Relief] 125 mg PO PRN PRN 10/23/17 Oxycodone [Oxyir] 5 - 10 mg PO Q4H PRN PRN 7 Days 11/08/17 #60 tablet Amitriptyline HCl [Elavil] 25 mg PO QHS PRN 11/12/17 Acetaminophen [Tylenol] 1,000 mg PO Q8 11/13/17 Pantoprazole Sodium [Protonix] 40 mg PO BID 11/13/17 Current Medications Generic Name Dose Route Start Last Admin Trade Name Freq PRN Reason Stop Dose Admin Acetaminophen 1,000 mg 11/13/17 22:00 11/14/17 05:59 Tylenol PO 1,000 mg Q8 [facility] Administration Alendronate Sodium 70 mg 11/16/17 06:00 Fosamax PO Fr@0600 [facility] Amlodipine Besylate 5 mg 11/14/17 06:00 11/14/17 05:59 Norvasc PO 5 mg DAILY [facility] Administration Ascorbic Acid 1,000 mg 11/13/17 22:00 11/13/17 20:50 Vitamin C PO 1,000 mg QHS [facility] Administration Bisacodyl 10 mg 11/13/17 21:29 Dulcolax PO DAILY PRN Constipation Cholecalciferol 5,000 unit 11/14/17 08:00 11/14/17 08:42 Vitamin D PO 5,000 unit DAILYCM [facility] Administration Ferrous Sulfate 325 mg 11/14/17 12:00 11/14/17 10:45 Ferrous Sulfate PO 325 mg DAILY@1200 [facility] Administration Fluticasone Propionate 2 spray 11/13/17 22:00 11/13/17 20:50 Flonase Nasal [place] NASAL 2 spray QHS [facility] Administration Gabapentin 300 mg 11/13/17 22:00 11/14/17 08:43 Neurontin PO 300 mg TIDCM [facility] Administration Guaifenesin 600 mg 11/13/17 18:00 Mucinex PO BID PRN PRN CONGESTION Hyoscyamine Sulfate 0.125 mg 11/13/17 23:04 Levsin/Sl SUBLINGUAL DAILY PRN PRN BOWEL Levothyroxine Sodium 50 mcg 11/14/17 06:00 11/14/17 05:59 Synthroid PO 50 mcg DAILY [facility] Administration Lisinopril 20 mg 11/14/17 06:00 11/14/17 05:59 Zestril PO 20 mg DAILY [facility] Administration Loratadine 10 mg 11/13/17 18:00 Claritin PO DAILY PRN PRN ALLERGIES Melatonin 10 mg 11/13/17 22:00 11/13/17 22:40 Melatonin PO 10 mg QHS [facility] Administration Oxycodone HCl 5 - 10 mg 11/13/17 18:00 11/14/17 08:46 Oxyir PO 5 mg Q4H PRN PRN Administration MOD-SEVERE PAIN (4-10/10) Pantoprazole Sodium 40 mg 11/14/17 06:00 11/14/17 05:59 Protonix PO 40 mg BID [facility] Administration Polyethylene Glycol 17 gm 11/14/17 06:00 11/14/17 05:58 Miralax PO 17 gm DAILY [facility] Administration Potassium Chloride 20 meq 11/15/17 08:00 K-Dur PO DAILY [facility] Senna/Docusate Sodium 2 tablet 11/14/17 06:00 11/14/17 05:58 Senokot-S, [place]-Colace PO 2 tablet BID [facility] Administration Simethicone 120 mg 11/13/17 18:04 Mylicon PO 4X/DAY PRN PRN GAS Trazodone HCl 50 mg 11/13/17 22:00 11/13/17 20:50 Desyrel PO 50 mg QHS [facility] Administration Tuberculin PPD 5 tu 11/21/17 10:00 Tubersol, Aplisol, Ppd ID 11/21/17 10:01 X1 ONE Problem List Melena (Acute) Peptic ulcer disease (Chronic) Acute gastritis (Acute) Osteoarthritis of right hip (Chronic) Low back pain (Chronic) Allergic rhinitis (Chronic) Osteoporosis (Chronic) Asthma (Chronic) Insomnia (Chronic) Recurrent UTI (Chronic) Constipation (Chronic) Overactive bladder (Chronic) Vital Signs Temp Pulse Resp BP Pulse Ox 97.5 F L 80 16 146/79 H 98 11/13/17 17:30 11/13/17 17:30 11/13/17 17:30 11/13/17 17:30 11/13/17 17:30 Oxygen Delivery Method Room Air Weight: 66.5 kg Body Mass Index (BMI) 29.6 Sodium 139 mmol/L (136-145) 11/14/17 05:10 Potassium 3.3 mmol/L (3.5-5.1) L 11/14/17 05:10 Chloride 105 mmol/L (98-107) 11/14/17 05:10 Carbon Dioxide 25.0 mmol/L (21.0-32.0) 11/14/17 05:10 Anion Gap 9 (5-15) 11/14/17 05:10 BUN 14 mg/dL (7-18) 11/14/17 05:10 Creatinine 0.60 mg/dL (0.55-1.02) 11/14/17 05:10 Est GFR (MDRD) Af Amer 123 mL/min (>60) 11/14/17 05:10 Est GFR (MDRD) Non-Af 101 mL/min (>60) 11/14/17 05:10 BUN/Creatinine Ratio 23.2 RATIO (10-20) H 11/14/17 05:10 Glucose 91 mg/dL (74-106) 11/14/17 05:10 Assessment/Plan: 1) Pain APAP, gabapentin, oxycodone prn. Continue to monitor daily pain scores, prn medication use. 2) HTN Amlodipine, lisinopril. Avg BP/HR within goal ranges, BUN/SCr at baseline, K not elevated. Continue to monitor renal function, electrolytes, BP/HR. 3) Hypothyroidism Levothyroxine daily. Continue to monitor s/s hyper/hypothyroidism. 4) Nutrition Fe, C, KCl. Continue to monitor electrolytes. 5) Osteoporosis Alendronate, D. Continue to monitor clinically. 6) Allergic Rhinitis Loratadine, fluticasone inh. Continue to monitor allergy symptoms. 7) Methenamine at HS, mirabegron. 8) Sleep Melatonin, trazodone at HS. Continue to monitor for insomnia. 9) GI Pantoprazole twice daily, hyoscyamine as needed, simethicone as needed. Continue to monitor prn medication use, for s/s GI distress. Psychotropic Medications: None Unnecessary Medications: None Bowel Regimen: 10) Senna/s, PEG, prn bisacodyl. Continue to monitor prn medication use, for constipation/diarrhea. Date of Note:: 11/14/17 - Provider Comments Provider responsibility: Provider responsible to enter orders to implement recommendations <Kiel Son Chi - Last Filed: 11/14/17 12:53> Progress Note - Pharmacy Subjective: [] Objective: Allergies grass pollen-perennial rye, standar [grass poll-perennial rye,std] Allergy (Verified 10/23/17 11:11) sinus pressure gluten Adverse Reaction (Verified 11/09/17 13:52) Food Allergy lactose Adverse Reaction (Verified 11/09/17 13:52) Food Allergy DUST Allergy (Uncoded 10/23/17 11:11) sinus pressure MOLD Allergy (Uncoded 10/23/17 11:11) SINUS PRESSURE Home Medications Medication Instructions Recorded Amlodipine [Norvasc] 5 mg PO DAILY 12/31/14 Gabapentin [Neurontin] 300 mg PO TID 12/31/14 Levothyroxine [Synthroid] 50 mcg PO DAILY 12/31/14 Lisinopril [Zestril] 20 mg PO DAILY 12/31/14 Trazodone HCl [Desyrel] 50 mg PO QHS 12/31/14 Ascorbic Acid [Vitamin C] 1,000 mg PO QHS 03/23/16 Methenamine Mandelate 1 gm PO QHS 03/23/16 Guaifenesin [Mucinex] 600 mg PO BID PRN PRN 08/25/16 Polyethylene Glycol 3350 [Miralax] 17 gm PO DAILY 08/25/16 Alendronate Sodium [Fosamax] 70 mg PO FR 03/09/17 Cetirizine HCl [Zyrtec] 10 mg PO PRN PRN 03/09/17 Fluticasone 0.05% [Flonase Nasal 2 spray NASAL QHS 03/09/17 [place]] Bio X4 1 cap PO PRN PRN 10/23/17 Cholecalciferol (Vitamin D3) 5,000 unit PO DAILY 10/23/17 [Vitamin D3] Docusate Sodium [Stool Softener] 100 mg PO QHS 10/23/17 Esomeprazole Magnesium [Nexium 20 mg PO PRN PRN 10/23/17 24Hr] Ferrous Sulfate 325 mg PO DAILY@0800 10/23/17 Hyoscyamine Sulfate 0.125 mg SL PRN PRN 10/23/17 Linaclotide [Linzess] 72 mcg PO DAILY 10/23/17 Mirabegron [Myrbetriq] 25 mg PO DAILY 10/23/17 Simethicone [Gas Relief] 125 mg PO PRN PRN 10/23/17 Oxycodone [Oxyir] 5 - 10 mg PO Q4H PRN PRN 7 Days 11/08/17 #60 tablet Amitriptyline HCl [Elavil] 25 mg PO QHS PRN 11/12/17 Acetaminophen [Tylenol] 1,000 mg PO Q8 11/13/17 Pantoprazole Sodium [Protonix] 40 mg PO BID 11/13/17 Current Medications Generic Name Dose Route Start Last Admin Trade Name [place] PRN Reason Stop Dose Admin Acetaminophen 1,000 mg 11/13/17 22:00 11/14/17 12:36 Tylenol PO 1,000 mg Q8 [facility] Administration Alendronate Sodium 70 mg 11/16/17 06:00 Fosamax PO Fr@0600 [facility] Amlodipine Besylate 5 mg 11/14/17 06:00 11/14/17 05:59 Norvasc PO 5 mg DAILY [facility] Administration Ascorbic Acid 1,000 mg 11/13/17 22:00 11/13/17 20:50 Vitamin C PO 1,000 mg QHS [facility] Administration Bisacodyl 10 mg 11/13/17 21:29 Dulcolax PO DAILY PRN Constipation Cholecalciferol 5,000 unit 11/14/17 08:00 11/14/17 08:42 Vitamin D PO 5,000 unit DAILYCM [facility] Administration Ferrous Sulfate 325 mg 11/14/17 12:00 11/14/17 10:45 Ferrous Sulfate PO 325 mg DAILY@1200 [facility] Administration Fluticasone Propionate 2 spray 11/13/17 22:00 11/13/17 20:50 Flonase Nasal [place] NASAL 2 spray QHS [facility] Administration Gabapentin 300 mg 11/13/17 22:00 11/14/17 12:36 Neurontin PO 300 mg TIDCM [facility] Administration Guaifenesin 600 mg 11/13/17 18:00 Mucinex PO BID PRN PRN CONGESTION Hyoscyamine Sulfate 0.125 mg 11/13/17 23:04 Levsin/Sl SUBLINGUAL DAILY PRN PRN BOWEL Levothyroxine Sodium 50 mcg 11/14/17 06:00 11/14/17 05:59 Synthroid PO 50 mcg DAILY [facility] Administration Lisinopril 20 mg 11/14/17 06:00 11/14/17 05:59 Zestril PO 20 mg DAILY [facility] Administration Loratadine 10 mg 11/13/17 18:00 Claritin PO DAILY PRN PRN ALLERGIES Melatonin 10 mg 11/13/17 22:00 11/13/17 22:40 Melatonin PO 10 mg QHS [facility] Administration Oxycodone HCl 5 - 10 mg 11/13/17 18:00 11/14/17 08:46 Oxyir PO 5 mg Q4H PRN PRN Administration MOD-SEVERE PAIN (4-10/10) Pantoprazole Sodium 40 mg 11/14/17 06:00 11/14/17 05:59 Protonix PO 40 mg BID [facility] Administration Polyethylene Glycol 17 gm 11/14/17 06:00 11/14/17 05:58 Miralax PO 17 gm DAILY [facility] Administration Potassium Chloride 20 meq 11/15/17 08:00 K-Dur PO DAILYCM [facility] Senna/Docusate Sodium 2 tablet 11/14/17 06:00 11/14/17 05:58 Senokot-S, Stephanie-Colace PO 2 tablet BID [facility] Administration Simethicone 120 mg 11/13/17 18:04 Mylicon PO 4X/DAY PRN PRN GAS Trazodone HCl 50 mg 11/13/17 22:00 11/13/17 20:50 Desyrel PO 50 mg QHS [facility] Administration Tuberculin PPD 5 tu 11/21/17 10:00 Tubersol, Aplisol, Ppd ID 11/21/17 10:01 X1 ONE Problem List Melena (Acute) Peptic ulcer disease (Chronic) Acute gastritis (Acute) Osteoarthritis of right hip (Chronic) Low back pain (Chronic) Allergic rhinitis (Chronic) Osteoporosis (Chronic) Asthma (Chronic) Insomnia (Chronic) Recurrent UTI (Chronic) Constipation (Chronic) Overactive bladder (Chronic) Vital Signs Temp Pulse Resp BP Pulse Ox 97.5 F L 80 16 146/79 H 98 11/13/17 17:30 11/13/17 17:30 11/13/17 17:30 11/13/17 17:30 11/13/17 17:30 Oxygen Delivery Method Room Air Weight: 66.5 kg Body Mass Index (BMI) 29.6 Sodium 139 mmol/L (136-145) 11/14/17 05:10 Potassium 3.3 mmol/L (3.5-5.1) L 11/14/17 05:10 Chloride 105 mmol/L (98-107) 11/14/17 05:10 Carbon Dioxide 25.0 mmol/L (21.0-32.0) 11/14/17 05:10 Anion Gap 9 (5-15) 11/14/17 05:10 BUN 14 mg/dL (7-18) 11/14/17 05:10 Creatinine 0.60 mg/dL (0.55-1.02) 11/14/17 05:10 Est GFR (MDRD) Af Amer 123 mL/min (>60) 11/14/17 05:10 Est GFR (MDRD) Non-Af 101 mL/min (>60) 11/14/17 05:10 BUN/Creatinine Ratio 23.2 RATIO (10-20) H 11/14/17 05:10 Glucose 91 mg/dL (74-106) 11/14/17 05:10 Assessment/Plan: Psychotropic Medications: Unnecessary Medications: Bowel Regimen: - Provider Comments Provider responsibility: Provider responsible to enter orders to implement recommendations Provider Comments to Recommendations by Pharmacy: Agree
--- NOTE | 2017-11-14 12:31 | NURSING ---
Dr. Son reviewed labs, NO for kdur 20meq daily and recheck bmp on 11/16/17.
--- NOTE | 2017-11-14 12:39 | PHA.CONS_ITS ---
<Abram Caba - Last Filed: 11/14/17 12:11> Progress Note - Pharmacy Subjective: TCU Admission Objective: Allergies grass pollen-perennial rye, standar [grass poll-perennial rye,std] Allergy ( Verified 10/23/17 11:11) sinus pressure gluten Adverse Reaction (Verified 11/09/17 13:52) Food Allergy lactose Adverse Reaction (Verified 11/09/17 13:52) Food Allergy DUST Allergy (Uncoded 10/23/17 11:11) sinus pressure MOLD Allergy (Uncoded 10/23/17 11:11) SINUS PRESSURE Home Medications Medication Instructions Recorded Amlodipine [Norvasc] 5 mg PO DAILY 12/31/14 Gabapentin [Neurontin] 300 mg PO TID 12/31/14 Levothyroxine [Synthroid] 50 mcg PO DAILY 12/31/14 Lisinopril [Zestril] 20 mg PO DAILY 12/31/14 Trazodone HCl [Desyrel] 50 mg PO QHS 12/31/14 Ascorbic Acid [Vitamin C] 1,000 mg PO QHS 03/23/16 Methenamine Mandelate 1 gm PO QHS 03/23/16 Guaifenesin [Mucinex] 600 mg PO BID PRN PRN 08/25/16 Polyethylene Glycol 3350 [Miralax] 17 gm PO DAILY 08/25/16 Alendronate Sodium [Fosamax] 70 mg PO FR 03/09/17 Cetirizine HCl [Zyrtec] 10 mg PO PRN PRN 03/09/17 Fluticasone 0.05% [Flonase Nasal 2 spray NASAL QHS 03/09/17 Mary Esther] Bio X4 1 cap PO PRN PRN 10/23/17 Cholecalciferol (Vitamin D3) 5,000 unit PO DAILY 10/23/17 [Vitamin D3] Docusate Sodium [Stool Softener] 100 mg PO QHS 10/23/17 Esomeprazole Magnesium [Nexium 20 mg PO PRN PRN 10/23/17 24Hr] Ferrous Sulfate 325 mg PO DAILY@0800 10/23/17 Hyoscyamine Sulfate 0.125 mg SL PRN PRN 10/23/17 Linaclotide [Linzess] 72 mcg PO DAILY 10/23/17 Mirabegron [Myrbetriq] 25 mg PO DAILY 10/23/17 Simethicone [Gas Relief] 125 mg PO PRN PRN 10/23/17 Oxycodone [Oxyir] 5 - 10 mg PO Q4H PRN PRN 7 Days 11/08/17 #60 tablet Amitriptyline HCl [Elavil] 25 mg PO QHS PRN 11/12/17 Acetaminophen [Tylenol] 1,000 mg PO Q8 11/13/17 Pantoprazole Sodium [Protonix] 40 mg PO BID 11/13/17 Current Medications Generic Name Dose Route Start Last Admin Trade Name Freq PRN Reason Stop Dose Admin Acetaminophen 1,000 mg 11/13/17 22:00 11/14/17 05:59 Tylenol PO 1,000 mg Q8 [facility] Administration Alendronate Sodium 70 mg 11/16/17 06:00 Fosamax PO Fr@0600 [facility] Amlodipine Besylate 5 mg 11/14/17 06:00 11/14/17 05:59 Norvasc PO 5 mg DAILY [facility] Administration Ascorbic Acid 1,000 mg 11/13/17 22:00 11/13/17 20:50 Vitamin C PO 1,000 mg QHS [facility] Administration Bisacodyl 10 mg 11/13/17 21:29 Dulcolax PO DAILY PRN Constipation Cholecalciferol 5,000 unit 11/14/17 08:00 11/14/17 08:42 Vitamin D PO 5,000 unit DAILYCM [facility] Administration Ferrous Sulfate 325 mg 11/14/17 12:00 11/14/17 10:45 Ferrous Sulfate PO 325 mg DAILY@1200 [facility] Administration Fluticasone Propionate 2 spray 11/13/17 22:00 11/13/17 20:50 Flonase Nasal [place] NASAL 2 spray QHS [facility] Administration Gabapentin 300 mg 11/13/17 22:00 11/14/17 08:43 Neurontin PO 300 mg TIDCM [facility] Administration Guaifenesin 600 mg 11/13/17 18:00 Mucinex PO BID PRN PRN CONGESTION Hyoscyamine Sulfate 0.125 mg 11/13/17 23:04 Levsin/Sl SUBLINGUAL DAILY PRN PRN BOWEL Levothyroxine Sodium 50 mcg 11/14/17 06:00 11/14/17 05:59 Synthroid PO 50 mcg DAILY [facility] Administration Lisinopril 20 mg 11/14/17 06:00 11/14/17 05:59 Zestril PO 20 mg DAILY [facility] Administration Loratadine 10 mg 11/13/17 18:00 Claritin PO DAILY PRN PRN ALLERGIES Melatonin 10 mg 11/13/17 22:00 11/13/17 22:40 Melatonin PO 10 mg QHS [facility] Administration Oxycodone HCl 5 - 10 mg 11/13/17 18:00 11/14/17 08:46 Oxyir PO 5 mg Q4H PRN PRN Administration MOD-SEVERE PAIN (4-10/10) Pantoprazole Sodium 40 mg 11/14/17 06:00 11/14/17 05:59 Protonix PO 40 mg BID [facility] Administration Polyethylene Glycol 17 gm 11/14/17 06:00 11/14/17 05:58 Miralax PO 17 gm DAILY [facility] Administration Potassium Chloride 20 meq 11/15/17 08:00 K-Dur PO DAILY [facility] Senna/Docusate Sodium 2 tablet 11/14/17 06:00 11/14/17 05:58 Senokot-S, Stephanie-Colace PO 2 tablet BID [facility] Administration Simethicone 120 mg 11/13/17 18:04 Mylicon PO 4X/DAY PRN PRN GAS Trazodone HCl 50 mg 11/13/17 22:00 11/13/17 20:50 Desyrel PO 50 mg QHS [facility] Administration Tuberculin PPD 5 tu 11/21/17 10:00 Tubersol, Aplisol, Ppd ID 11/21/17 10:01 X1 ONE Problem List Melena (Acute) Peptic ulcer disease (Chronic) Acute gastritis (Acute) Osteoarthritis of right hip (Chronic) Low back pain (Chronic) Allergic rhinitis (Chronic) Osteoporosis (Chronic) Asthma (Chronic) Insomnia (Chronic) Recurrent UTI (Chronic) Constipation (Chronic) Overactive bladder (Chronic) Vital Signs Temp Pulse Resp BP Pulse Ox 97.5 F L 80 16 146/79 H 98 11/13/17 17:30 11/13/17 17:30 11/13/17 17:30 11/13/17 17:30 11/13/17 17:30 Oxygen Delivery Method Room Air Weight: 66.5 kg Body Mass Index (BMI) 29.6 Sodium 139 mmol/L (136-145) 11/14/17 05:10 Potassium 3.3 mmol/L (3.5-5.1) L 11/14/17 05:10 Chloride 105 mmol/L (98-107) 11/14/17 05:10 Carbon Dioxide 25.0 mmol/L (21.0-32.0) 11/14/17 05:10 Anion Gap 9 (5-15) 11/14/17 05:10 BUN 14 mg/dL (7-18) 11/14/17 05:10 Creatinine 0.60 mg/dL (0.55-1.02) 11/14/17 05:10 Est GFR (MDRD) Af Amer 123 mL/min (>60) 11/14/17 05:10 Est GFR (MDRD) Non-Af 101 mL/min (>60) 11/14/17 05:10 BUN/Creatinine Ratio 23.2 RATIO (10-20) H 11/14/17 05:10 Glucose 91 mg/dL (74-106) 11/14/17 05:10 Assessment/Plan: 1) Pain APAP, gabapentin, oxycodone prn. Continue to monitor daily pain scores, prn medication use. 2) HTN Amlodipine, lisinopril. Avg BP/HR within goal ranges, BUN/SCr at baseline, K not elevated. Continue to monitor renal function, electrolytes, BP/HR. 3) Hypothyroidism Levothyroxine daily. Continue to monitor s/s hyper/hypothyroidism. 4) Nutrition Fe, C, KCl. Continue to monitor electrolytes. 5) Osteoporosis Alendronate, D. Continue to monitor clinically. 6) Allergic Rhinitis Loratadine, fluticasone inh. Continue to monitor allergy symptoms. 7) Methenamine at HS, mirabegron. 8) Sleep Melatonin, trazodone at HS. Continue to monitor for insomnia. 9) GI Pantoprazole twice daily, hyoscyamine as needed, simethicone as needed. Continue to monitor prn medication use, for s/s GI distress. Psychotropic Medications: None Unnecessary Medications: None Bowel Regimen: 10) Senna/s, PEG, prn bisacodyl. Continue to monitor prn medication use, for constipation/diarrhea. Date of Note:: 11/14/17 - Provider Comments Provider responsibility: Provider responsible to enter orders to implement recommendations <Kiel Son Chi - Last Filed: 11/14/17 12:53> Progress Note - Pharmacy Subjective: [] Objective: Allergies grass pollen-perennial rye, standar [grass poll-perennial rye,std] Allergy ( Verified 10/23/17 11:11) sinus pressure gluten Adverse Reaction (Verified 11/09/17 13:52) Food Allergy lactose Adverse Reaction (Verified 11/09/17 13:52) Food Allergy DUST Allergy (Uncoded 10/23/17 11:11) sinus pressure MOLD Allergy (Uncoded 10/23/17 11:11) SINUS PRESSURE Home Medications Medication Instructions Recorded Amlodipine [Norvasc] 5 mg PO DAILY 12/31/14 Gabapentin [Neurontin] 300 mg PO TID 12/31/14 Levothyroxine [Synthroid] 50 mcg PO DAILY 12/31/14 Lisinopril [Zestril] 20 mg PO DAILY 12/31/14 Trazodone HCl [Desyrel] 50 mg PO QHS 12/31/14 Ascorbic Acid [Vitamin C] 1,000 mg PO QHS 03/23/16 Methenamine Mandelate 1 gm PO QHS 03/23/16 Guaifenesin [Mucinex] 600 mg PO BID PRN PRN 08/25/16 Polyethylene Glycol 3350 [Miralax] 17 gm PO DAILY 08/25/16 Alendronate Sodium [Fosamax] 70 mg PO FR 03/09/17 Cetirizine HCl [Zyrtec] 10 mg PO PRN PRN 03/09/17 Fluticasone 0.05% [Flonase Nasal 2 spray NASAL QHS 03/09/17 Mary Esther] Bio X4 1 cap PO PRN PRN 10/23/17 Cholecalciferol (Vitamin D3) 5,000 unit PO DAILY 10/23/17 [Vitamin D3] Docusate Sodium [Stool Softener] 100 mg PO QHS 10/23/17 Esomeprazole Magnesium [Nexium 20 mg PO PRN PRN 10/23/17 24Hr] Ferrous Sulfate 325 mg PO DAILY@0800 10/23/17 Hyoscyamine Sulfate 0.125 mg SL PRN PRN 10/23/17 Linaclotide [Linzess] 72 mcg PO DAILY 10/23/17 Mirabegron [Myrbetriq] 25 mg PO DAILY 10/23/17 Simethicone [Gas Relief] 125 mg PO PRN PRN 10/23/17 Oxycodone [Oxyir] 5 - 10 mg PO Q4H PRN PRN 7 Days 11/08/17 #60 tablet Amitriptyline HCl [Elavil] 25 mg PO QHS PRN 11/12/17 Acetaminophen [Tylenol] 1,000 mg PO Q8 11/13/17 Pantoprazole Sodium [Protonix] 40 mg PO BID 11/13/17 Current Medications Generic Name Dose Route Start Last Admin Trade Name Carmen PRN Reason Stop Dose Admin Acetaminophen 1,000 mg 11/13/17 22:00 11/14/17 12:36 Tylenol PO 1,000 mg Q8 [facility] Administration Alendronate Sodium 70 mg 11/16/17 06:00 Fosamax PO Fr@0600 [facility] Amlodipine Besylate 5 mg 11/14/17 06:00 11/14/17 05:59 Norvasc PO 5 mg DAILY [facility] Administration Ascorbic Acid 1,000 mg 11/13/17 22:00 11/13/17 20:50 Vitamin C PO 1,000 mg QHS [facility] Administration Bisacodyl 10 mg 11/13/17 21:29 Dulcolax PO DAILY PRN Constipation Cholecalciferol 5,000 unit 11/14/17 08:00 11/14/17 08:42 Vitamin D PO 5,000 unit DAILYCM [facility] Administration Ferrous Sulfate 325 mg 11/14/17 12:00 11/14/17 10:45 Ferrous Sulfate PO 325 mg DAILY@1200 [facility] Administration Fluticasone Propionate 2 spray 11/13/17 22:00 11/13/17 20:50 Flonase Nasal Mary Esther NASAL 2 spray QHS [facility] Administration Gabapentin 300 mg 11/13/17 22:00 11/14/17 12:36 Neurontin PO 300 mg TIDCM [facility] Administration Guaifenesin 600 mg 11/13/17 18:00 Mucinex PO BID PRN PRN CONGESTION Hyoscyamine Sulfate 0.125 mg 11/13/17 23:04 Levsin/Sl SUBLINGUAL DAILY PRN PRN BOWEL Levothyroxine Sodium 50 mcg 11/14/17 06:00 11/14/17 05:59 Synthroid PO 50 mcg DAILY [facility] Administration Lisinopril 20 mg 11/14/17 06:00 11/14/17 05:59 Zestril PO 20 mg DAILY [facility] Administration Loratadine 10 mg 11/13/17 18:00 Claritin PO DAILY PRN PRN ALLERGIES Melatonin 10 mg 11/13/17 22:00 11/13/17 22:40 Melatonin PO 10 mg QHS [facility] Administration Oxycodone HCl 5 - 10 mg 11/13/17 18:00 11/14/17 08:46 Oxyir PO 5 mg Q4H PRN PRN Administration MOD-SEVERE PAIN (4-10/10) Pantoprazole Sodium 40 mg 11/14/17 06:00 11/14/17 05:59 Protonix PO 40 mg BID [facility] Administration Polyethylene Glycol 17 gm 11/14/17 06:00 11/14/17 05:58 Miralax PO 17 gm DAILY [facility] Administration Potassium Chloride 20 meq 11/15/17 08:00 K-Dur PO DAILYCM [facility] Senna/Docusate Sodium 2 tablet 11/14/17 06:00 11/14/17 05:58 Senokot-S, Stephanie-Colace PO 2 tablet BID [facility] Administration Simethicone 120 mg 11/13/17 18:04 Mylicon PO 4X/DAY PRN PRN GAS Trazodone HCl 50 mg 11/13/17 22:00 11/13/17 20:50 Desyrel PO 50 mg QHS [facility] Administration Tuberculin PPD 5 tu 11/21/17 10:00 Tubersol, Aplisol, Ppd ID 11/21/17 10:01 X1 ONE Problem List Melena (Acute) Peptic ulcer disease (Chronic) Acute gastritis (Acute) Osteoarthritis of right hip (Chronic) Low back pain (Chronic) Allergic rhinitis (Chronic) Osteoporosis (Chronic) Asthma (Chronic) Insomnia (Chronic) Recurrent UTI (Chronic) Constipation (Chronic) Overactive bladder (Chronic) Vital Signs Temp Pulse Resp BP Pulse Ox 97.5 F L 80 16 146/79 H 98 11/13/17 17:30 11/13/17 17:30 11/13/17 17:30 11/13/17 17:30 11/13/17 17:30 Oxygen Delivery Method Room Air Weight: 66.5 kg Body Mass Index (BMI) 29.6 Sodium 139 mmol/L (136-145) 11/14/17 05:10 Potassium 3.3 mmol/L (3.5-5.1) L 11/14/17 05:10 Chloride 105 mmol/L (98-107) 11/14/17 05:10 Carbon Dioxide 25.0 mmol/L (21.0-32.0) 11/14/17 05:10 Anion Gap 9 (5-15) 11/14/17 05:10 BUN 14 mg/dL (7-18) 11/14/17 05:10 Creatinine 0.60 mg/dL (0.55-1.02) 11/14/17 05:10 Est GFR (MDRD) Af Amer 123 mL/min (>60) 11/14/17 05:10 Est GFR (MDRD) Non-Af 101 mL/min (>60) 11/14/17 05:10 BUN/Creatinine Ratio 23.2 RATIO (10-20) H 11/14/17 05:10 Glucose 91 mg/dL (74-106) 11/14/17 05:10 Assessment/Plan: Psychotropic Medications: Unnecessary Medications: Bowel Regimen: - Provider Comments Provider responsibility: Provider responsible to enter orders to implement recommendations Provider Comments to Recommendations by Pharmacy: Agree
[2017-11-14 16:00] VITALS: BP 143/54; PULSE 79; RESP 18; TEMP 36.7; O2SAT 97
--- NOTE | 2017-11-14 16:44 | CHAPLAIN ---
Type of Pastoral Visit _x__ Initial Visit ___ Follow-up Visit ___ On-call Visit ___ General Patient Visit ___ Spiritual Assessment ___ Family Conference ___ Bereavement ___ Rapid Response ___ Code Blue ___ Other (describe below) Pastoral Care Referral From _x__ Patient ___ Family ___ Nurse ___ Physician ___ Petroleum Engineering Teacher ___ Human Resource Consultant ___ Other (describe below) Sacrament/Intervention _x__ Active listening ___ Anointing ___ Hindu ___ Bereavement ___ Communion _x__ Zehra exploration ___ _x__ Life review _x__ Prayer ___ Reconciliation ___ Sacrament of Sick ___ Supportive presence ___ Wedding ___ Other (describe below) Pastoral Comments patient was very talkative about many topics; life review given; pt had questions for this motion picture actor about roman catholic zehra and beliefs; 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
[2017-11-14] MEDS: MELATONIN 10 MG TABLET PO (21:11)
[2017-11-14] MEDS: Fluticasone 0.05% 1 SPRAY NASAL.SRY 2 SPRAY NASAL (21:11)
[2017-11-14] MEDS: Ascorbic Acid 500 MG Tablet 1000 MG PO (21:11)
[2017-11-14] MEDS: traZODone 50 MG Tablet PO (21:12)
[2017-11-15] MEDS: oxyCODONE 5 MG Tablet PO ×3 (02:24→14:00)
[2017-11-15] MEDS: Polyethylene Glycol 3350 17 GM PACKET PO (06:11)
[2017-11-15] MEDS: Acetaminophen 500 MG Tablet 1000 MG PO ×3 (06:16→21:29)
[2017-11-15] MEDS: Levothyroxine 50 MCG Tablet PO (06:17)
[2017-11-15] MEDS: Lisinopril 20 MG Tablet PO (06:17)
[2017-11-15] MEDS: Pantoprazole Sodium 40 MG Tablet PO ×2 (06:17→17:11)
[2017-11-15] MEDS: Mirabegron 25 MG TAB.ER.24H PO (06:17)
[2017-11-15] MEDS: amLODIPine 5 MG Tablet PO (06:17)
[2017-11-15] MEDS: Senna/Docusate Sodium 1 Tablet 2 TABLET PO ×2 (06:18→17:11)
[2017-11-15] MEDS: Gabapentin 300 MG Capsule PO ×3 (06:54→17:11)
[2017-11-15 10:00] VITALS: PULSE 79; RESP 16; O2SAT 97
[2017-11-15] MEDS: Ferrous Sulfate 325 MG Tablet PO (10:56)
--- NOTE | 2017-11-15 12:21 | NURSING ---
Incision has increased redness, slight warmth, edema and an increase in pain. Dr. Huynh's nurse made aware, states to continue to monitor for any fever or drainage and to call office in morning if any worsening pain or signs of infection.
[2017-11-15 16:00] VITALS: BP 146/75; PULSE 81; RESP 18; TEMP 36.8; O2SAT 96
[2017-11-15] MEDS: MELATONIN 10 MG TABLET PO (21:29)
[2017-11-15] MEDS: traZODone 50 MG Tablet PO (21:29)
[2017-11-15] MEDS: Ascorbic Acid 500 MG Tablet 1000 MG PO (21:29)
[2017-11-15] MEDS: Mag Hydrox/Al Hydrox/Simeth 30 ML UDC 15 ML PO (21:40)
[2017-11-15] MEDS: Fluticasone 0.05% 1 SPRAY NASAL.SRY 2 SPRAY NASAL (21:43)
[2017-11-16] MEDS: oxyCODONE 5 MG Tablet PO ×3 (00:59→19:28)
[2017-11-16] MEDS: Lisinopril 20 MG Tablet PO (05:21)
[2017-11-16] MEDS: Senna/Docusate Sodium 1 Tablet 2 TABLET PO (05:21)
[2017-11-16] MEDS: Acetaminophen 500 MG Tablet 1000 MG PO ×3 (05:22→22:19)
[2017-11-16] MEDS: Levothyroxine 50 MCG Tablet PO (05:22)
[2017-11-16] MEDS: amLODIPine 5 MG Tablet PO (05:22)
[2017-11-16] MEDS: Alendronate Sodium 70 MG Tablet PO (05:22)
[2017-11-16] MEDS: Pantoprazole Sodium 40 MG Tablet PO ×2 (05:24→16:59)
[2017-11-16] MEDS: Polyethylene Glycol 3350 17 GM PACKET PO (05:24)
[2017-11-16 05:57] LABS: Anion Gap 8 (5-15); BUN 15 mg/dL (7-18); BUN/Creat Ratio 26.1 RATIO (10-20); Calcium,Total 8.4 mg/dL (8.5-10.1); Chloride 104 mmol/L (98-107); Creatinine, Serum 0.57 mg/dL (0.55-1.02); EST Glomerular Filtration Rate 107 mL/min (>60); Est Glom Filt Rate - Afr Amer 130 mL/min (>60); Glucose 88 mg/dL (74-106); Potassium 4.1 mmol/L (3.5-5.1); Sodium Level 138 mmol/L (136-145)
[2017-11-16] MEDS: Gabapentin 300 MG Capsule PO ×3 (08:50→16:54)
[2017-11-16] MEDS: Mag Hydrox/Al Hydrox/Simeth 30 ML UDC 15 ML PO (10:59)
[2017-11-16] MEDS: Ferrous Sulfate 325 MG Tablet PO (11:03)
[2017-11-16 16:00] VITALS: BP 132/73; PULSE 87; RESP 18; TEMP 36.4; O2SAT 96
[2017-11-16] MEDS: Fluticasone 0.05% 1 SPRAY NASAL.SRY 2 SPRAY NASAL (21:00)
[2017-11-16] MEDS: Ascorbic Acid 500 MG Tablet 1000 MG PO (22:19)
[2017-11-16] MEDS: MELATONIN 10 MG TABLET PO (22:19)
[2017-11-16] MEDS: Mirabegron 25 MG TAB.ER.24H PO (22:19)
[2017-11-16] MEDS: traZODone 50 MG Tablet PO (22:21)
[2017-11-17] MEDS: oxyCODONE 5 MG Tablet PO ×2 (01:06→08:45)
[2017-11-17] MEDS: Acetaminophen 500 MG Tablet 1000 MG PO ×3 (04:58→22:07)
[2017-11-17] MEDS: amLODIPine 5 MG Tablet PO (05:00)
[2017-11-17] MEDS: Senna/Docusate Sodium 1 Tablet 2 TABLET PO ×2 (05:00→17:15)
[2017-11-17] MEDS: Lisinopril 20 MG Tablet PO (05:00)
[2017-11-17] MEDS: Polyethylene Glycol 3350 17 GM PACKET PO (05:00)
[2017-11-17] MEDS: Pantoprazole Sodium 40 MG Tablet PO ×2 (05:00→17:14)
[2017-11-17] MEDS: Levothyroxine 50 MCG Tablet PO (05:00)
[2017-11-17] MEDS: Gabapentin 300 MG Capsule PO ×3 (08:44→17:14)
[2017-11-17] MEDS: Ferrous Sulfate 325 MG Tablet PO (12:51)
[2017-11-17 15:40] VITALS: BP 127/67; PULSE 82; RESP 16; TEMP 36.4; O2SAT 97
[2017-11-17] MEDS: Mag Hydrox/Al Hydrox/Simeth 30 ML UDC 15 ML PO (17:15)
[2017-11-17] MEDS: traZODone 50 MG Tablet PO (22:06)
[2017-11-17] MEDS: Ascorbic Acid 500 MG Tablet 1000 MG PO (22:06)
[2017-11-17] MEDS: MELATONIN 10 MG TABLET PO (22:08)
[2017-11-17] MEDS: Mirabegron 25 MG TAB.ER.24H PO (22:08)
[2017-11-17] MEDS: Fluticasone 0.05% 1 SPRAY NASAL.SRY 2 SPRAY NASAL (22:14)
[2017-11-18] MEDS: oxyCODONE 5 MG Tablet PO ×2 (02:42→10:20)
[2017-11-18] MEDS: Acetaminophen 500 MG Tablet 1000 MG PO ×3 (04:34→21:45)
[2017-11-18] MEDS: amLODIPine 5 MG Tablet PO (04:34)
[2017-11-18] MEDS: Pantoprazole Sodium 40 MG Tablet PO ×2 (04:34→16:46)
[2017-11-18] MEDS: Levothyroxine 50 MCG Tablet PO (04:34)
[2017-11-18] MEDS: Polyethylene Glycol 3350 17 GM PACKET PO (04:34)
[2017-11-18] MEDS: Senna/Docusate Sodium 1 Tablet 2 TABLET PO (04:34)
[2017-11-18] MEDS: Lisinopril 20 MG Tablet PO (04:34)
[2017-11-18] MEDS: Gabapentin 300 MG Capsule PO ×3 (08:37→16:46)
[2017-11-18] MEDS: Mag Hydrox/Al Hydrox/Simeth 30 ML UDC 15 ML PO ×2 (10:29→16:46)
[2017-11-18] MEDS: Ferrous Sulfate 325 MG Tablet PO (11:54)
[2017-11-18 15:30] VITALS: BP 140/76; PULSE 76; RESP 16; TEMP 36.7; O2SAT 97
[2017-11-18] MEDS: Ascorbic Acid 500 MG Tablet 1000 MG PO (21:45)
[2017-11-18] MEDS: MELATONIN 10 MG TABLET PO (21:46)
[2017-11-18] MEDS: traZODone 50 MG Tablet PO (21:46)
[2017-11-18] MEDS: Mirabegron 25 MG TAB.ER.24H PO (21:46)
[2017-11-18] MEDS: Fluticasone 0.05% 1 SPRAY NASAL.SRY 2 SPRAY NASAL (21:49)
[2017-11-19] MEDS: Mag Hydrox/Al Hydrox/Simeth 30 ML UDC 15 ML PO ×2 (00:16→06:34)
[2017-11-19] MEDS: Pantoprazole Sodium 40 MG Tablet PO ×2 (06:36→16:59)
--- NOTE | 2017-11-19 08:53 | NURSING ---
Dr. Son in to speak with pt about indigestion, N.O. entered, pt aware.
[2017-11-19] MEDS: Gabapentin 300 MG Capsule PO ×3 (08:58→16:53)
[2017-11-19] MEDS: Lisinopril 20 MG Tablet PO (08:59)
[2017-11-19] MEDS: Acetaminophen 500 MG Tablet 1000 MG PO ×3 (09:00→21:29)
[2017-11-19] MEDS: amLODIPine 5 MG Tablet PO (09:00)
[2017-11-19] MEDS: Levothyroxine 50 MCG Tablet PO (09:00)
[2017-11-19] MEDS: oxyCODONE 5 MG Tablet PO ×2 (09:01→21:28)
[2017-11-19 09:06] VITALS: BP 146/82; PULSE 89
[2017-11-19] MEDS: Ferrous Sulfate 325 MG Tablet PO (11:14)
[2017-11-19] MEDS: Sucralfate 1 GM Tablet PO ×3 (11:14→21:29)
--- NOTE | 2017-11-19 13:34 | CASEMGMT ---
Insurance Clinical information sent. Pending continued stay approval at this time. Auth#[id number] Phyllis JOHNSON, GENERAL ACCOUNTING CLERK
[2017-11-19 16:00] VITALS: BP 126/60; PULSE 77; RESP 18; TEMP 36.9; O2SAT 98
[2017-11-19] MEDS: Ascorbic Acid 500 MG Tablet 1000 MG PO (21:28)
[2017-11-19] MEDS: Mirabegron 25 MG TAB.ER.24H PO (21:29)
[2017-11-19] MEDS: traZODone 50 MG Tablet PO (21:29)
[2017-11-19] MEDS: MELATONIN 10 MG TABLET PO (21:30)
[2017-11-19] MEDS: Fluticasone 0.05% 1 SPRAY NASAL.SRY 2 SPRAY NASAL (21:30)
[2017-11-20] MEDS: Lisinopril 20 MG Tablet PO (06:37)
[2017-11-20] MEDS: Sucralfate 1 GM Tablet PO ×4 (06:37→20:57)
[2017-11-20] MEDS: Pantoprazole Sodium 40 MG Tablet PO ×2 (06:38→16:56)
[2017-11-20] MEDS: Levothyroxine 50 MCG Tablet PO (06:38)
[2017-11-20] MEDS: amLODIPine 5 MG Tablet PO (06:38)
[2017-11-20] MEDS: Acetaminophen 500 MG Tablet 1000 MG PO ×3 (06:38→20:57)
[2017-11-20] MEDS: Gabapentin 300 MG Capsule PO ×3 (08:09→16:46)
[2017-11-20] MEDS: oxyCODONE 5 MG Tablet PO ×3 (09:01→20:57)
[2017-11-20 10:19] LABS: Color, Urine Yellow (Yellow); Glucose, Dipstick Normal (Normal); Ketone-Dipstick 5 mg/dl (Negative); Leukocyte Esterase-Dipstick 100 /ul (Negative); Nitrite-Dipstick Negative (Negative); Occult Blood-Urine 50 /ul (Negative); Protein-Dipstick 100 mg/dl (Negative); Urine Bilirubin Dipstick Negative (Negative); Urine Clarity Sl. Cloudy (Clear); Urine Urobilinogen Normal (Normal); Urine pH 6.5 (5.0 - 8.0)
[2017-11-20 10:34] LABS: Bacteria RARE /hpf (None Seen); Red Blood Cells-Urine 0-5 SEEN /hpf (0-5); Squamous Epithelial Cells - UA 0-5 SEEN /hpf (5-10); White Blood Cells 5-10 SEEN /hpf (0-5)
[2017-11-20 10:35] LABS: Mucous, Urine 1+ /hpf (<or=2+)
--- NOTE | 2017-11-20 11:17 | NURSING ---
Dr Son notified of UA results, NNO's, awaiting culture results
[2017-11-20] MEDS: Ferrous Sulfate 325 MG Tablet PO (11:27)
--- NOTE | 2017-11-20 11:30 | CASEMGMT ---
Brief interview for mental status (BIMS) and resident mood interview (PHQ-9) completed on this day. BIMS score 14/15. PHQ-9 score 11/03
--- NOTE | 2017-11-20 11:32 | CASEMGMT ---
Insurance Continued stay has been denied with the last cover day being 11/22/17 and a discharge or resident financial responsibility to begin on 11/23/17. Auth#[id number] Phyllis JOHNSON, RAIL BONDER
--- NOTE | 2017-11-20 11:37 | CASEMGMT ---
Social Work Spoke with resident in room. This social service agency director communicating that continued stay has been denied by insurance and that last cover day is 11/22/17 and discharge or resident financial responsibility is to begin on 11/23/17. Resident voicing understanding and planning to discharge by 11/23/17 to home with spouse. Support given. Will discuss discharge planning further at plan of care meeting on 11/21/17. Proposed discharge date: 11/23/17 PLAN: Discharge home with spouse. Phyllis JOHNSON, FITNESS TRAINER
[2017-11-20 15:51] VITALS: BP 129/68; PULSE 80; RESP 16; TEMP 36.7; O2SAT 94
[2017-11-20] MEDS: Ascorbic Acid 500 MG Tablet 1000 MG PO (20:56)
[2017-11-20] MEDS: Fluticasone 0.05% 1 SPRAY NASAL.SRY 2 SPRAY NASAL (20:56)
[2017-11-20] MEDS: MELATONIN 10 MG TABLET PO (20:56)
[2017-11-20] MEDS: Mirabegron 25 MG TAB.ER.24H PO (20:57)
[2017-11-20] MEDS: traZODone 50 MG Tablet PO (21:00)
[2017-11-21] MEDS: Polyethylene Glycol 3350 17 GM PACKET PO (06:01)
[2017-11-21] MEDS: Lisinopril 20 MG Tablet PO (06:03)
[2017-11-21] MEDS: Pantoprazole Sodium 40 MG Tablet PO ×2 (06:03→17:13)
[2017-11-21] MEDS: Sucralfate 1 GM Tablet PO ×4 (06:03→20:02)
[2017-11-21] MEDS: Levothyroxine 50 MCG Tablet PO (06:04)
[2017-11-21] MEDS: Acetaminophen 500 MG Tablet 1000 MG PO ×3 (06:04→20:01)
[2017-11-21] MEDS: amLODIPine 5 MG Tablet PO (06:04)
[2017-11-21 06:30] LABS: Absolute Lymphocyte Count 0.98 X10^3/ul (0.83-4.51); Absolute Neutrophil Count 6.2 X10^3/uL (2.0-7.7); Basophil# 0.06 X10^3/uL; Basophil% 0.7 % (0-1); Eosinophil# 0.41 X10^3/uL; Hematocrit 39.2 % (37-47); Hemoglobin 12.3 g/dl (12.0-15.0); Lymphocyte # 0.98 X10^3/ul (4.0); Lymphocyte % 11.8 % (19-41); Mean Corp Hgb Conc 31.4 g/gl (32-36); Mean Corpuscular Hgb 29.9 pg (27.0-32.0); Mean Corpuscular Volume 95.1 fL (81-99); Mean Platelet Vol. 8.9 fl (6.2-12.0); Monocyte# 0.65 X10^3/uL; Monocyte% 7.9 % (0-10); Neutrophil # 6.17 X10^3/uL (2.7-7.7); Neutrophil % 74.5 % (47-70); Platelet Count 362 K/mm3 (150-450); RBC Distribution Width SD 48.6 fl (35.1-43.9); Red Blood Count 4.12 M/mm3 (4.2-5.4); White Blood Count 8.3 K/mm3 (4.4-11.0)
[2017-11-21 06:35] LABS: POSITIVE COUNT NO; POSITIVE DIFFERENTIAL NO; POSITIVE MORPHOLOGY NO
[2017-11-21 06:55] LABS: Anion Gap 9 (5-15); BUN 15 mg/dL (7-18); BUN/Creat Ratio 23.3 RATIO (10-20); Calcium,Total 8.3 mg/dL (8.5-10.1); Chloride 104 mmol/L (98-107); Creatinine, Serum 0.64 mg/dL (0.55-1.02); EST Glomerular Filtration Rate 94 mL/min (>60); Est Glom Filt Rate - Afr Amer 114 mL/min (>60); Estimated Creatinine Clearance 47.42 ml/min; Glucose 82 mg/dL (74-106); Potassium 4.3 mmol/L (3.5-5.1); Sodium Level 136 mmol/L (136-145)
[2017-11-21] MEDS: Gabapentin 300 MG Capsule PO ×3 (07:58→17:13)
[2017-11-21] MEDS: oxyCODONE 5 MG Tablet PO ×3 (10:11→22:04)
[2017-11-21] MEDS: Tuberculin,Purif.prot.deriv. 50 TU/ML Vial 5 ML ID (12:50)
[2017-11-21] MEDS: Ferrous Sulfate 325 MG Tablet PO (12:50)
[2017-11-21 15:09] VITALS: BP 124/59; PULSE 68; RESP 18; TEMP 36.9; O2SAT 92
--- NOTE | 2017-11-21 15:28 | CASEMGMT ---
Plan of care meeting held. Resident present as well as resident spouse. Resident now requesting to discharge on 11/22/17. Team agreeable to discharge date change as resident was planning to discharge on 11/23/17. Resident plans to discharge home with spouse and outpatient physical therapy. Resident voicing to have outpatient physical therapy already set up through [facility]. Resident reporting to have walker already set up within the home and to have no further needs. Resident spouse to provide transportation home for resident at time of discharge. Support given. Proposed discharge date: 11/22/17 PLAN: Discharge home with spouse and outpatient physical therapy appointment. Phyllis JOHNSON, DELIVERY TRUCK DRIVER
[2017-11-21] MEDS: Ascorbic Acid 500 MG Tablet 1000 MG PO (20:00)
[2017-11-21] MEDS: Mirabegron 25 MG TAB.ER.24H PO (20:01)
[2017-11-21] MEDS: traZODone 50 MG Tablet PO (20:01)
[2017-11-21] MEDS: Fluticasone 0.05% 1 SPRAY NASAL.SRY 2 SPRAY NASAL (20:02)
[2017-11-21] MEDS: MELATONIN 10 MG TABLET PO (20:03)
[2017-11-21 20:55] VITALS: BP 120/62; PULSE 90; RESP 16; TEMP 36.9; O2SAT 98
--- NOTE | 2017-11-21 20:56 | DCINST_ITS ---
- Discharge Diagnoses Current Active Problems: Current Active and Chronic Problems Melena (Acute) Peptic ulcer disease (Chronic) Acute gastritis (Acute) Osteoarthritis of right hip (Chronic) Low back pain (Chronic) Allergic rhinitis (Chronic) Osteoporosis (Chronic) Asthma (Chronic) Insomnia (Chronic) Recurrent UTI (Chronic) Constipation (Chronic) Overactive bladder (Chronic) You will use the following diet at home:: No restrictions, Regular Your food should be the consistency of: Regular Your liquids should be the consistency of: Regular/Thin Discharge Activity: Return to Normal Activity, May Shower, Use Walker May resume sexual activity in: No Restrictions Weight Bearing Status: Weight bearing as tolerated Call your doctor if you observe: Fever of 101 or Higher, Inability to urinate, Inability to have a bowel movement, Shortness of breath, Chest pain, Uncontrolled pain Allergies/Adverse Reactions: Allergies grass pollen-perennial rye, standar [grass poll-perennial rye,std] Allergy ( Verified 10/23/17 11:11) sinus pressure gluten Adverse Reaction (Verified 11/09/17 13:52) Food Allergy lactose Adverse Reaction (Verified 11/09/17 13:52) Food Allergy DUST Allergy (Uncoded 10/23/17 11:11) sinus pressure MOLD Allergy (Uncoded 10/23/17 11:11) SINUS PRESSURE Medications to take at Discharge Amlodipine [Norvasc] 5 mg PO DAILY 12/31/14 Gabapentin [Neurontin] 300 mg PO TID 12/31/14 Levothyroxine [Synthroid] 50 mcg PO DAILY 12/31/14 Lisinopril [Zestril] 20 mg PO DAILY 12/31/14 Trazodone HCl [Desyrel] 50 mg PO QHS 12/31/14 Ascorbic Acid [Vitamin C] 1,000 mg PO QHS 03/23/16 Methenamine Mandelate 1 gm PO QHS 03/23/16 Guaifenesin [Mucinex] 600 mg PO BID PRN PRN 08/25/16 Polyethylene Glycol 3350 [Miralax] 17 gm PO DAILY 08/25/16 Alendronate Sodium [Fosamax] 70 mg PO FR 03/09/17 Cetirizine HCl [Zyrtec] 10 mg PO PRN PRN 03/09/17 Fluticasone 0.05% [Flonase Nasal [place]] 2 spray NASAL QHS 03/09/17 Bio X4 1 cap PO PRN PRN 10/23/17 Cholecalciferol (Vitamin D3) [Vitamin D3] 5,000 unit PO DAILY 10/23/17 Docusate Sodium [Stool Softener] 100 mg PO QHS 10/23/17 Esomeprazole Magnesium [Nexium 24Hr] 20 mg PO PRN PRN 10/23/17 Ferrous Sulfate 325 mg PO DAILY@0800 10/23/17 Hyoscyamine Sulfate 0.125 mg SL PRN PRN 10/23/17 Linaclotide [Linzess] 72 mcg PO DAILY 10/23/17 Mirabegron [Myrbetriq] 25 mg PO DAILY 10/23/17 Simethicone [Gas Relief] 125 mg PO PRN PRN 10/23/17 Oxycodone [Oxyir] 5 - 10 mg PO Q4H PRN PRN 7 Days #60 tablet 11/08/17 Acetaminophen [Tylenol] 1,000 mg PO Q8 11/13/17 Melatonin 10 mg PO QHS #30 tab 11/21/17 Pantoprazole Sodium [Protonix] 40 mg PO BID #60 tab 11/21/17 Potassium Chloride [K-Dur] 20 meq PO DAILYCM #30 tab 11/21/17 The following prescriptions were given: Melatonin 10 mg PO QHS #30 tab Potassium Chloride [K-Dur] 20 meq PO DAILYCM #30 tab Pantoprazole Sodium [Protonix] 40 mg PO BID #60 tab Primary Care Physician: Roma Grajeda DO [Primary Care Provider] - Please follow up with your Primary Care Physician in: 1 week. Please Follow Up With: Dr Huynh When: 2 weeks. Please Follow Up With: Dr Sera Blankenship When: 2 weeks. Proposed Discharge Date: 11/22/17
--- NOTE | 2017-11-21 20:58 | DS.PCM_ITS ---
Discharge Date and Diagnosis - Problem List Patient Problems: Active and Suspected Problems Melena (Acute) Acute gastritis (Acute) Date of Admission: 11/13/17 Date of Discharge: 11/22/17 - Primary Discharge Diagnosis Active and Suspected Problems Melena (Acute) Acute gastritis (Acute) - Secondary Discharge Diagnosis Chronic Problems Peptic ulcer disease (Chronic) Osteoarthritis of right hip (Chronic) Low back pain (Chronic) Allergic rhinitis (Chronic) Osteoporosis (Chronic) Asthma (Chronic) Insomnia (Chronic) Recurrent UTI (Chronic) Constipation (Chronic) Overactive bladder (Chronic) History of peptic ulcer disease (Chronic) Hypothyroidism (Chronic) Hypertension (Chronic) Hospital Course and Treatment Imaging Results: 11/13/17 18:07 Diet: Regular Diet Food consistency:: Regular Liquid Consistency:: Regular/Thin Dietary Modifications:: Gluten Free Is pt able to select menu?: Yes Diet Comments: lactose free Labs (Last 48 Hours) 11/20/17 11/21/17 11/21/17 10:00 05:54 05:54 WBC 8.3 RBC 4.12 L Hgb 12.3 Hct 39.2 MCV 95.1 MCH 29.9 MCHC 31.4 L RDW 14.0 RDW Differential 48.6 H Plt Count 362 MPV 8.9 Immature Gran % (Auto) 0.100 Neut % (Auto) 74.5 H Lymph % (Auto) 11.8 L Cavalier % (Auto) 7.9 Eos % (Auto) 5.0 Baso % (Auto) 0.7 Absolute Neuts (auto) 6.2 Absolute Lymphs (auto) 0.98 Total Counted Not Reportable Sodium 136 Potassium 4.3 Chloride 104 Carbon Dioxide 23.0 Anion Gap 9 BUN 15 Creatinine 0.64 Estim Creat Clear Calc 47.42 Est GFR (MDRD) Af Amer 114 Est GFR (MDRD) Non-Af 94 BUN/Creatinine Ratio 23.3 H Glucose 82 Calcium 8.3 L Urine Color Yellow Urine Clarity Sl. Cloudy Urine pH 6.5 Ur Specific [place] 1.010 Urine Protein 100 H Urine Glucose (UA) Normal Urine Ketones 5 H Urine Occult Blood 50 H Urine Nitrite Negative Urine Bilirubin Negative Urine Urobilinogen Normal Ur Leukocyte Esterase 100 H Urine RBC 0-5 SEEN Urine WBC 5-10 SEEN Ur Squamous Epith Cells 0-5 SEEN Urine Bacteria RARE Urine Mucus 1+ Microbiology 11/20/17 10:00 Urine, Catheterized Urine Culture - Preliminary Culture exhibits no growth. Operations: None, - - ORIF right hip fracture Procedures: None Summary of Care Provided: The patient is a 81 year old Female with below past medical history hospitalized for fall secondary to anemia from acute gastritis requiring blood transfusion, complicated by acute kidney injury from dehydration, side effects from medications, admitted to TCU for debility, for rehabilitation, strengthening.] Will discharge home with spouse. Will have outpatient physical therapy. Discharge Diet: No Restrictions Discharge Activity: Return to Normal Activity, May Shower, Use Walker May resume sexual activity in: No Restrictions Weight Bearing Status: Weight bearing as tolerated Call your doctor if you observe: Fever of 101 or Higher, Inability to urinate, Inability to have a bowel movement, Shortness of breath, Chest pain, Uncontrolled pain Home Medications: Medications to take at Discharge Amlodipine [Norvasc] 5 mg PO DAILY 12/31/14 Gabapentin [Neurontin] 300 mg PO TID 12/31/14 Levothyroxine [Synthroid] 50 mcg PO DAILY 12/31/14 Lisinopril [Zestril] 20 mg PO DAILY 12/31/14 Trazodone HCl [Desyrel] 50 mg PO QHS 12/31/14 Ascorbic Acid [Vitamin C] 1,000 mg PO QHS 03/23/16 Methenamine Mandelate 1 gm PO QHS 03/23/16 Guaifenesin [Mucinex] 600 mg PO BID PRN PRN 08/25/16 Polyethylene Glycol 3350 [Miralax] 17 gm PO DAILY 08/25/16 Alendronate Sodium [Fosamax] 70 mg PO FR 03/09/17 Cetirizine HCl [Zyrtec] 10 mg PO PRN PRN 03/09/17 Fluticasone 0.05% [Flonase Nasal [place]] 2 spray NASAL QHS 03/09/17 Bio X4 1 cap PO PRN PRN 10/23/17 Cholecalciferol (Vitamin D3) [Vitamin D3] 5,000 unit PO DAILY 10/23/17 Docusate Sodium [Stool Softener] 100 mg PO QHS 10/23/17 Esomeprazole Magnesium [Nexium 24Hr] 20 mg PO PRN PRN 10/23/17 Ferrous Sulfate 325 mg PO DAILY@0800 10/23/17 Hyoscyamine Sulfate 0.125 mg SL PRN PRN 10/23/17 Linaclotide [Linzess] 72 mcg PO DAILY 10/23/17 Mirabegron [Myrbetriq] 25 mg PO DAILY 10/23/17 Simethicone [Gas Relief] 125 mg PO PRN PRN 10/23/17 Oxycodone [Oxyir] 5 - 10 mg PO Q4H PRN PRN 7 Days #60 tablet 11/08/17 Acetaminophen [Tylenol] 1,000 mg PO Q8 11/13/17 Melatonin 10 mg PO QHS #30 tab 11/21/17 Pantoprazole Sodium [Protonix] 40 mg PO BID #60 tab 11/21/17 Potassium Chloride [K-Dur] 20 meq PO DAILYCM #30 tab 11/21/17 Following Prescrptions Were Given to Patient: Melatonin 10 mg PO QHS #30 tab Potassium Chloride [K-Dur] 20 meq PO DAILYCM #30 tab Pantoprazole Sodium [Protonix] 40 mg PO BID #60 tab Primary Care Physician: Roma Grajeda DO [Primary Care Provider] - Please follow up with your Primary Care Physician in: 1 week. Please Follow Up With: Dr Huynh When: 2 weeks. Please Follow Up With: Dr Sera Blankenship When: 2 weeks. Disposition: Home Minutes spent on discharge:: 30 Patient Condition:: Stable Meaningful Use Info Meaningful Use Diagnoses (Choose all that apply): None applicable
[2017-11-22] MEDS: Pantoprazole Sodium 40 MG Tablet PO (05:28)
[2017-11-22] MEDS: Acetaminophen 500 MG Tablet 1000 MG PO (05:28)
[2017-11-22] MEDS: Lisinopril 20 MG Tablet PO (05:29)
[2017-11-22] MEDS: amLODIPine 5 MG Tablet PO (05:29)
[2017-11-22] MEDS: Sucralfate 1 GM Tablet PO (05:29)
[2017-11-22] MEDS: Levothyroxine 50 MCG Tablet PO (05:29)
[2017-11-22] MEDS: Gabapentin 300 MG Capsule PO (05:29)
[2017-11-22 09:34] VITALS: PULSE 92; RESP 16; O2SAT 97
--- NOTE | 2017-11-22 10:10 | NURSING ---
Discharge instructions given to patient and . Patient transported via wheelchair to exit with GIRLS SWIMMING COACH; all belongings sent with patient. Verbalized no further needs.
--- NOTE | 2017-11-22 15:52 | MDS.RN ---
Information for the mds was obtained from review of the clinical record, interview of resident, staff, and direct observation of resident's care.
== END 2017-11-22 10:12 | disposition home or self-care (01) | DRG 947 ==
PROVIDERS: Admitting Provider Family Medicine Geriatric Medicine; Family Provider Family Medicine; PCP Family Medicine; Visit Provider Family Medicine Geriatric Medicine
DX: R53.81 Other malaise (principal); K29.01 Acute gastritis with bleeding; D50.0 Iron deficiency anemia secondary to blood loss (chronic); N39.0 Urinary tract infection, site not specified; M81.0 Age-related osteoporosis without current pathological fracture; E03.9 Hypothyroidism, unspecified; K58.9 Irritable bowel syndrome, unspecified; K21.9 Gastro-esophageal reflux disease without esophagitis; I10 Essential (primary) hypertension; Q27.33 Arteriovenous malformation of digestive system vessel; J45.909 Unspecified asthma, uncomplicated; N32.81 Overactive bladder; G89.29 Other chronic pain; M54.5 Low back pain; Z96.641 Presence of right artificial hip joint; K44.9 Diaphragmatic hernia without obstruction or gangrene; Z87.11 Personal history of peptic ulcer disease; Z79.899 Other long term (current) drug therapy; Z79.51 Long term (current) use of inhaled steroids; Z91.81 History of falling
CPT/HCPCS: 36415; 80048; 81001; 85025; 87086; 97110; 97116; 97162; 97165; 97530; 97535; 97802

== ENCOUNTER → 2017-12-25 14:05 | Outpatient (CLI) | payer MEDICARE, SELFPAY ==
[2017-12-25 15:50] LABS: Absolute Lymphocyte Count 1.07 X10^3/ul (0.83-4.51); Basophil# 0.03 X10^3/uL; Basophil% 0.5 % (0-1); Eosinophil# 0.16 X10^3/uL; Eosinophils% 2.4 % (0-5); Hematocrit 38.7 % (37-47); Hemoglobin 12.2 g/dl (12.0-15.0); Lymphocyte # 1.07 X10^3/ul (4.0); Lymphocyte % 16.1 % (19-41); Mean Corp Hgb Conc 31.5 g/gl (32-36); Mean Corpuscular Volume 95.3 fL (81-99); Mean Platelet Vol. 9.4 fl (6.2-12.0); Monocyte# 0.39 X10^3/uL; Monocyte% 5.9 % (0-10); Neutrophil # 4.98 X10^3/uL (2.7-7.7); Neutrophil % 75.1 % (47-70); Platelet Count 295 K/mm3 (150-450); RBC Distribution Width CV 14.2 % (11.6-14.6); Red Blood Count 4.06 M/mm3 (4.2-5.4); White Blood Count 6.6 K/mm3 (4.4-11.0)
[2017-12-25 15:58] LABS: POSITIVE COUNT NO; POSITIVE DIFFERENTIAL NO; POSITIVE MORPHOLOGY NO
[2017-12-25 16:00] LABS: Anion Gap 9 (5-15); BUN 23 mg/dL (7-18); BUN/Creat Ratio 27.1 RATIO (10-20); Calcium,Total 9.1 mg/dL (8.5-10.1); Chloride 101 mmol/L (98-107); Creatinine, Serum 0.85 mg/dL (0.55-1.02); EST Glomerular Filtration Rate 68 mL/min (>60); Est Glom Filt Rate - Afr Amer 83 mL/min (>60); Glucose 97 mg/dL (74-106); Potassium 4.4 mmol/L (3.5-5.1); Sodium Level 136 mmol/L (136-145)
== END ==
PROVIDERS: Family Provider Family Medicine; PCP Family Medicine; Visit Provider Family Medicine
DX: D64.9 Anemia, unspecified (principal); E87.6 Hypokalemia
CPT/HCPCS: 36415; 80048; 85025

== ENCOUNTER → 2018-06-06 16:45 | Outpatient (CLI) | payer MEDICARE, SELFPAY ==
[2018-06-06 18:31] LABS: AST(SGOT) 18 U/L (15-37); Alanine Aminotransfer ALT/SGPT 25 U/L (13-56); Albumin, Serum 3.7 g/dL (3.2-5.0); Alkaline Phosphatase 63 U/L (45-117); Anion Gap 9 (5-15); BUN 23 mg/dL (7-18); BUN/Creat Ratio 27.2 RATIO (10-20); Calcium,Total 8.6 mg/dL (8.5-10.1); Chloride 102 mmol/L (98-107); Creatinine, Serum 0.85 mg/dL (0.55-1.02); EST Glomerular Filtration Rate 68 mL/min (>60); Est Glom Filt Rate - Afr Amer 83 mL/min (>60); Globulin 3.6 g/dL (2.2-4.2); Glucose 78 mg/dL (74-106); Potassium 4.6 mmol/L (3.5-5.1); Protein, Total 7.3 g/dL (6.4-8.2); Sodium Level 138 mmol/L (136-145); Thyroid Stim Hormone (TSH) 2.46 uIU/mL (0.358-3.74)
[2018-06-07 09:55] LABS: T3 Total - Triiodothyronine 0.73 ng/mL (0.6-1.81)
== END ==
PROVIDERS: Family Provider Family Medicine; PCP Family Medicine; Visit Provider Family Medicine
DX: E03.9 Hypothyroidism, unspecified (principal); Z51.81 Encounter for therapeutic drug level monitoring
CPT/HCPCS: 36415; 80053; 84439; 84443; 84480

== ENCOUNTER → 2018-06-19 15:45 | Outpatient (CLI) | payer MEDICARE, SELFPAY ==
--- NOTE | 2018-06-19 15:48 | RAD_ITS ---
STUDY: X-RAY - LUMBAR SPINE REASON FOR EXAM: Female, 82 years old. Low back pain TECHNIQUE: 5 view(s) of the lumbar spine were obtained. COMPARISON: None FINDINGS: Normal lumbar lordosis. There is no substantial scoliosis. There is a normal alignment of the vertebrae. There are posterior spinal fusion changes with interpeduncular screws and rods from L3 to S1. There are status post laminectomy changes of L3-L5. There is multi-level degenerative disc disease with multi-level disc space narrowing. There is no demonstrated fracture. Status post total right hip replacement changes are also noted. The soft tissue structures are unremarkable. RAD/L/S Spine Min 4 Views IMPRESSION: 1. Posterior spinal fusion changes with interpeduncular screws and rods from L3 to S1. 2. Status post laminectomy changes at L3-L5. 3. Multilevel disc space narrowing. 4. 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 Electronically Signed: Bhupinder Reid MD at 22:38 EDT , Service support ,
== END ==
PROVIDERS: Family Provider Family Medicine; PCP Family Medicine; Visit Provider Nurse Practitioner Family
DX: M54.9 Dorsalgia, unspecified (principal)
CPT/HCPCS: 72110

== ENCOUNTER → 2018-07-04 14:43 | Outpatient (CLI) | payer MEDICARE, SELFPAY ==
[2018-07-04 17:18] LABS: Absolute Lymphocyte Count 1.39 X10^3/ul (0.83-4.51); Absolute Neutrophil Count 4.8 X10^3/uL (2.0-7.7); Basophil# 0.03 X10^3/uL; Basophil% 0.4 % (0-1); Eosinophil# 0.16 X10^3/uL; Eosinophils% 2.3 % (0-5); Hematocrit 37.4 % (37-47); Hemoglobin 11.9 g/dl (12.0-15.0); Lymphocyte # 1.39 X10^3/ul (4.0); Lymphocyte % 19.8 % (19-41); Mean Corp Hgb Conc 31.8 g/gl (32-36); Mean Corpuscular Hgb 30.4 pg (27.0-32.0); Mean Corpuscular Volume 95.7 fL (81-99); Mean Platelet Vol. 9.6 fl (6.2-12.0); Monocyte# 0.64 X10^3/uL; Monocyte% 9.1 % (0-10); Neutrophil # 4.78 X10^3/uL (2.7-7.7); Neutrophil % 68.3 % (47-70); Platelet Count 239 K/mm3 (150-450); RBC Distribution Width SD 44.9 fl (35.1-43.9); Red Blood Count 3.91 M/mm3 (4.2-5.4)
[2018-07-04 17:19] LABS: POSITIVE COUNT NO; POSITIVE DIFFERENTIAL NO; POSITIVE MORPHOLOGY NO
[2018-07-04 17:26] LABS: Color, Urine Yellow (Yellow); Glucose, Dipstick Normal (Normal); Ketone-Dipstick Negative (Negative); Leukocyte Esterase-Dipstick 500 /ul (Negative); Nitrite-Dipstick Negative (Negative); Occult Blood-Urine 25 /ul (Negative); Protein-Dipstick 30 mg/dl (Negative); Urine Bilirubin Dipstick Negative (Negative); Urine Clarity Cloudy (Clear); Urine Urobilinogen Normal (Normal)
== END ==
PROVIDERS: Family Provider Family Medicine; PCP Family Medicine; Visit Provider Family Medicine
DX: D64.9 Anemia, unspecified (principal); N39.0 Urinary tract infection, site not specified
CPT/HCPCS: 36415; 81002; 85025

== ENCOUNTER → 2018-08-27 15:51 | Outpatient (CLI) | payer MEDICARE, SELFPAY ==
[2018-08-27 15:46] VITALS: BMI 29.6
--- NOTE | 2018-08-27 15:54 | RAD_ITS ---
STUDY: X-RAY - THORACIC SPINE REASON FOR EXAM: Female, 82 years old. Trauma, mid back pain TECHNIQUE: 4 view(s) of the thoracic spine were obtained. COMPARISON: None. FINDINGS: Several of the upper thoracic vertebrae are obscured by shoulder replacements. There is an increase in the normal thoracic kyphosis. There is no substantial scoliosis. There is demineralization of the thoracic spine with endplate spondylosis. Normal disc space heights. The soft tissue structures are unremarkable. RAD/Thoracic Spine 2 Views IMPRESSION: Increased thoracic kyphosis. Generalized osteopenia with diffuse endplate spondylosis. There is no evidence of fracture or subluxation. Electronically Signed: Bhupinder Reid MD at 16:30 EST , Service support ,
== END ==
PROVIDERS: Family Provider Family Medicine; PCP Family Medicine; Referring Provider Physician Assistant Surgical; Visit Provider Physician Assistant Surgical
DX: S20.221A Contusion of right back wall of thorax, initial encounter (principal)
CPT/HCPCS: 72070

== ENCOUNTER 2018-09-01 14:04 | Emergency (ER) | payer MEDICARE, SELFPAY ==
[2018-08-27 15:46] VITALS: BMI 29.6
[2018-09-01 14:05] VITALS: BP 173/78; PULSE 88; RESP 16; TEMP 36.7; O2SAT 98; BMI 26.3
[2018-09-01] MEDS: oxyCODONE 5 MG Tablet PO (15:06)
[2018-09-01] MEDS: Lidocaine 5% Patch 1 PATCH TOPICAL (15:07)
--- NOTE | 2018-09-01 15:30 | RAD_ITS ---
STUDY: X-RAY - UNILATERAL RIBS ( RIGHT ) WITH CHEST REASON FOR EXAM: Female, 82 years old. Chest pain after falling. TECHNIQUE - RIBS: 2 view(s) of the ribs. TECHNIQUE - CHEST: 1 view COMPARISON: Prior chest radiograph of November 09, 2017. FINDINGS - RIBS: Demineralized osseous structures without a demonstrated acute rib fracture. FINDINGS - CHEST: Lung llanos remain expanded without new consolidation, pneumothorax, focal atelectasis or a substantial pleural effusion. There is no demonstrated pleural abnormality. Normal size heart. Normal mediastinum and alex. Normal visualized pulmonary arteries. There is atherosclerotic calcification of the aortic arch with tortuosity. There is demineralization of the osseous structures. Status post bilateral shoulder arthroplasty. Multiple old left rib fractures. Status post cholecystectomy. RAD/Ribs Uni Min 3V w/PA Chest IMPRESSION: RIBS: Demineralized osseous structures without acute right rib fracture. CHEST: No acute cardiopulmonary findings or changes. Electronically Signed: Danielle Pruett MD at 16:23 EST , Service support ,
[2018-09-01 15:39] LABS: Bacteria 0 SEEN /hpf (None Seen); Mucous, Urine 0 SEEN /hpf (<or=2+)
--- NOTE | 2018-09-01 15:39 | ED.VISSUMM ---
- ER Visit Summary Date of Service: 09/01/18 Chief Complaint: Back injury History of Present Illness: The patient is a 82 F presenting for evaluation secondary to a back injury. Patient reports that she suffered a mechanical fall about 5 days ago where her leg gave out in the bathroom and she struck her right posterior chest on a half wall in their bathroom. She denies that she hit her head or loss consciousness. Patient states that she has had continuous pain in that region. She had a thoracic spine x-ray that was found to be negative a couple of days ago, but in the last day or so she states that she is having increased pain and she feels as if things are moving in there. Patient does state that she feels somewhat short of breath associated with this but denies any hemoptysis. Physical Examination: Vital signs notable blood pressure 173/78. Well-nourished female no acute distress. Head normocephalic. Heart regular rate and rhythm, lungs clear. Chest shows tenderness to palpation in the posterior ribs on the right hemithorax with some tenderness to palpation in the thoracic spine. No evidence of step-offs crepitus or deformity. No asymmetric lung sounds. Remainder physical otherwise unremarkable. Test Results: Right-sided rib series was performed Emergency Department Course and Treatment: Patient presented with persistent rib pain that she states is now worse. Patient was treated with oxycodone and a lidocaine patch in the emergency department. Repeat evaluation showed the patient to have improvement. Urinalysis was performed as the patient started to complain of urinary complaints and was found to be positive for infection. Patient was given Bactrim for that. Patient's rib radiographs were found to be negative per radiology my personal review. This point I believe the patient appropriate for discharge. She will be discharged with a course lidocaine patches on an incentive spirometer. Disposition: Discharge Impression: 1. Right rib contusion 2. Urinary tract infection This note was generated with [employer] dictation software. It may contain incorrect words, spelling, and punctuation that were not noted in review of the chart prior to signing ED Disposition - Plan for ED Patient: Disposition: Home or Assisted Living Chief Complaint: Back Diagnosis: Contusion of rib on right side, UTI (urinary tract infection) Instructions: ED UTI Cystitis Female, ED Contusion Rib Prescriptions: Lidocaine [Lidoderm Patch] 1 patch TOPICAL DAILY #10 patch Smz/Tmp Ds [Bactrim Ds] 1 tab PO BID #14 tab Referrals: Roma Grajeda DO [Primary Care Provider] - 2 Days
[2018-09-01 15:52] LABS: Color, Urine Straw (Yellow); Glucose, Dipstick Normal (Normal); Ketone-Dipstick Negative (Negative); Leukocyte Esterase-Dipstick 500 /ul (Negative); Nitrite-Dipstick Negative (Negative); Occult Blood-Urine 50 /ul (Negative); Protein-Dipstick 15 mg/dl (Negative); Urine Bilirubin Dipstick Negative (Negative); Urine Clarity Cloudy (Clear); Urine Urobilinogen Normal (Normal); Urine pH 6.5 (5.0 - 8.0)
[2018-09-01 16:09] LABS: Squamous Epithelial Cells - UA 0-5 SEEN /hpf (5-10)
[2018-09-01 16:11] LABS: Red Blood Cells-Urine 0-5 SEEN /hpf (0-5); White Blood Cells 50-100 SEEN /hpf (0-5)
[2018-09-01 16:15] LABS: Renal Epithelial Cells 0-5 SEEN /hpf (0-5)
[2018-09-01 16:16] LABS: Transitional Epithelial - Ur 0-5 SEEN /hpf (0-5)
[2018-09-01 16:21] VITALS: BP 135/68; PULSE 74; RESP 18; O2SAT 96
[2018-09-01] MEDS: Smz/Tmp Ds Tablet 1 TABLET PO (16:45)
[2018-09-01 17:02] VITALS: BP 138/68; PULSE 82; RESP 20; O2SAT 97
--- NOTE | 2018-09-01 17:03 | ED.RN ---
THIS NURSE REVIEWED D/C INSTRUCTIONS WITH PT AND . PT VERBALIZED UNDERSTANDING OF INSTRUCTIONS. PT ASSISTED IN GETTING DRESSED AND OUT TO VEHICLE VIA W/C. PT DENIES FURTHER NEEDS OR QUESTIONS AT THIS TIME.
== END 2018-09-01 17:04 | disposition home or self-care (01) ==
PROVIDERS: Emergency Provider Emergency Medicine; Family Provider Family Medicine; PCP Family Medicine
DX: S20.211A Contusion of right front wall of thorax, initial encounter (principal); N39.0 Urinary tract infection, site not specified; W19.XXXA Unspecified fall, initial encounter; Y93.9 Activity, unspecified; Y92.002 Bathroom of unspecified non-institutional (private) residence as the place of occurrence of the external cause
CPT/HCPCS: 71101; 81001; 99284

== ENCOUNTER → 2018-09-05 14:40 | Outpatient (CLI) | payer MEDICARE, SELFPAY ==
[2018-09-01 14:05] VITALS: BMI 26.3
--- NOTE | 2018-09-05 15:00 | RAD_ITS ---
STUDY: X-RAY - THORACIC SPINE REASON FOR EXAM: Female, 82 years old. Recent fall, continued pain right side. TECHNIQUE: 3 view(s) of the thoracic spine were obtained. COMPARISON: 08/27/2018 FINDINGS: There is an increase in the normal thoracic kyphosis. There is no substantial scoliosis. There is demineralization of the thoracic spine with endplate spondylosis. There is multilevel disc space narrowing of the thoracic spine. Status post bilateral shoulder replacement, arteriosclerosis, stable elevation right hemidiaphragm, lumbar surgery, cholecystectomy and calcified granulomata. RAD/Thoracic Spine 3 Views IMPRESSION: Osteoporosis and degenerative changes with mild kyphosis and postsurgical changes appear stable. No compression injury or traumatic malalignment. Electronically Signed: Leigh Ann Mcgregor MD at 7:15 EST , Service support ,
--- OUTSIDE RECORDS SUMMARY | 2018-10-31 20:20 | XMS RPT_ITS ---
:1935 Author Organization [place] Support Name Relationship Address Phone R Unavailable Unavailable Unavailable LV ROSALES Unavailable [address] [place] [address] R Unavailable Unavailable Unavailable LV ROSALES Unavailable [address] [place] [address] R Unavailable Unavailable Unavailable LV ROSALES Unavailable [address] + [address] [place] [address] R Unavailable Unavailable Unavailable LV ROSALES Unavailable [address] + [address] [place] [address] R Unavailable Unavailable Unavailable LV ROSALES Unavailable [address] + [address] [place] [address] R Unavailable Unavailable Unavailable LV ROSALES Unavailable [address] + [address] [place] [address] R Unavailable Unavailable Unavailable LV ROSALES Unavailable [address] + [address] [place] [address] R Unavailable Unavailable Unavailable LV ROSALES Unavailable [address] + [address] [place] [address] R Unavailable Unavailable Unavailable LV ROSALES Unavailable [address] + [address] [place] [address] R Unavailable Unavailable Unavailable LV ROSALES Unavailable [address] + [address] [place] [address] R Unavailable Unavailable Unavailable LV ROSALES Unavailable [address] + [address] [place] [address] R Unavailable Unavailable Unavailable LV ROSALES Unavailable [address] + [address] [place] [address] R Unavailable Unavailable Unavailable LV ROSALES Unavailable [address] + [address] [place] [address] R Unavailable Unavailable Unavailable JOVAN LV Unavailable [address] + [address] [place] [address] R Unavailable Unavailable Unavailable JOVAN LV Unavailable [address] [place] [address] R Unavailable Unavailable Unavailable JOVAN LV Unavailable [address] + [address] [place] [address] R Unavailable Unavailable Unavailable LV ROSALES Unavailable [address] + [address] [place] [address] R Unavailable Unavailable Unavailable LV ROSALES Unavailable [address] + [address] [place] [address] R Unavailable Unavailable Unavailable LV ROSALES Unavailable [address] [place] [address] Care Team Providers Name Role Phone ALEX NAVARRETE (KENNETH) Attending Unavailable MALYS, ROMA A Referring Unavailable ALEX NAVARRETE (KENNETH) Referring Unavailable ALEX NAVARRETE (KENNETH) Referring Unavailable Malys, Roma Attending Unavailable Malys, Roma Primary Care Unavailable Barrie Huynh Attending Unavailable Amina, Barrie Referring Unavailable Malys, Roma Primary Care Unavailable Amina Barrie Admitting Unavailable Barrie Huynh Attending Unavailable Amina, Barrie Referring Unavailable Malys, Roma Primary Care Unavailable Malys, Roma Primary Care Unavailable Sementi, Sheila Admitting Unavailable Robotham, Ayla Consulting Unavailable Paintsil, Fulton Attending Unavailable Vitor, Lv Consulting Unavailable Sementi, Sheila Admitting Unavailable Sementi, Sheila Attending Unavailable Malys, Roma Primary Care Unavailable Sementi, Sheila Consulting Unavailable Sementi, Sheila Admitting Unavailable Sementi, Sheila Attending Unavailable Malys, Roma Primary Care Unavailable Robotham, Ayla Consulting Unavailable Vitor, Lv Consulting Unavailable Sementi, Sheila Consulting Unavailable Sementi, Sheila Admitting Unavailable Sementi, Sheila Attending Unavailable Malys, Roma Primary Care Unavailable Robotham, Ayla Consulting Unavailable Vitor, Lv Consulting Unavailable Sementi, Sheila Consulting Unavailable Sementi, Sheila Admitting Unavailable Paintsil, Fulton Attending Unavailable Malys, Roma Primary Care Unavailable Robotham, Ayla Consulting Unavailable Vitor, Lv Consulting Unavailable Paintsil, Fulton Consulting Unavailable Sementi, Sheila Admitting Unavailable Paintsil, Fulton Attending Unavailable Malys, Roma Primary Care Unavailable Robotham, Ayla Consulting Unavailable Vitor, Lv Consulting Unavailable Paintsil, Fulton Consulting Unavailable Huy, Kiel Chi Admitting Unavailable Huy, Kiel Chi Attending Unavailable Malys, Roma Primary Care Unavailable Malys, Roma Attending Unavailable Malys, Roma Primary Care Unavailable Kraig Velázquez Attending Unavailable Malys, Roma Referring Unavailable Malys, Roma Primary Care Unavailable Malys, Roma Attending Unavailable Malys, Roma Primary Care Unavailable Prebish, Roma HEAD TURBINE OPERATOR-C Attending Unavailable Prebish, Roma HEAD TURBINE OPERATOR-C Referring Unavailable Malys, Roma Primary Care Unavailable Nanciel, Marcy Attending Unavailable Miedel, Marcy Primary Care Unavailable Juanito Pack Attending Unavailable Mijoanel, Marcy Referring Unavailable Juanito Pack Attending Unavailable Ramone, Juanito Referring Unavailable Malys, Roma Primary Care Unavailable Malys, Roma Primary Care Unavailable Amado Jaffe Attending Unavailable CalvinHimanshu Attending Unavailable Himanshu Simpson Referring Unavailable Malys, Roma Primary Care Unavailable PROBLEMS PROBLEMS DATE TYPE CONDITION / CODE ATTENDING STATUS SOURCE 08/27/2018 Unknown S20.221A - Juanito Pack Active [facility] Contusion of right Community back wall of Hospital thorax, initial Repository encounter / S20.221A(ICD-10) 06/19/2018 Unknown M54.9 - Dorsalgia, Prebish, Roma Active [place] unspecified / HEAD TURBINE OPERATOR-C Community M54.9(ICD-10) Hospital Repository 06/06/2018 Unknown E03.9 - Malys, Roma Active [place] Hypothyroidism, Community unspecified / Hospital E03.9(ICD-10) Repository 06/06/2018 Unknown Z51.81 - Encounter Malys, Roma Active [facility] for therapeutic Community drug level Hospital monitoring / Repository Z51.81(ICD-10) 04/19/2018 Active Urinary tract NA Active [facility] infection, site not [facility] specified / Repository N39.0(ICD-10) 12/25/2017 Unknown D64.9 - Anemia, Malys, Roma Active [place] unspecified / Community D64.9(ICD-10) Hospital Repository 12/25/2017 Unknown E87.6 - Hypokalemia Roma Grajeda Active [place] / E87.6(ICD-10) [facility] Hospital Repository 11/22/2017 Unknown R53.81 - Other Huy, Kiel Chi Active [place] malaise / Community R53.81(ICD-10) Hospital Repository 11/09/2017 Unknown Z96.641 - Presence Barrie Huynh Active [place] of right artificial Community hip joint / Hospital Z96.641(ICD-10) Repository 10/11/2017 Unknown Z01.818 - Encounter Roma Grajeda Active [place] for other [facility] preprocedural Hospital examination / Repository Z01.818(ICD-10) PROCEDURES PROCEDURES No Procedure Records FoundRESULTS RESULTS THORACIC SPINE 3 Observed: 09/05/2018 Status: F Source: [place] VIEWS 2:47 PM [facility] REPOSITORY [facility] Imaging Services [address] [place] [address] Thoracic Spine 3 Views MR#: [id number] Acct: [id number] Name: MARLI ROSALES Rep #: [id number] : 1935 F 82 From: Leigh Ann Mcgregor MD PCP: Roma Grajeda DO Status: REG CLI Study: Thoracic Spine 3 Views Date of Exam: 09/05/18 Exam# [id number] Ordering Dr: Himanshu Simpson MD STUDY: X-RAY - THORACIC SPINE REASON FOR EXAM: Female, 82 years old. Recent fall, continued pain right side. TECHNIQUE: 3 view(s) of the thoracic spine were obtained. COMPARISON: 08/27/2018 FINDINGS: There is an increase in the normal thoracic kyphosis. There is no substantial scoliosis. There is demineralization of the thoracic spine with endplate spondylosis. There is multilevel disc space narrowing of the thoracic spine. Status post bilateral shoulder replacement, arteriosclerosis, stable elevation right hemidiaphragm, lumbar surgery, cholecystectomy and calcified granulomata. RAD/Thoracic Spine 3 Views IMPRESSION: Osteoporosis and degenerative changes with mild kyphosis and postsurgical changes appear stable. No compression injury or traumatic malalignment. Electronically Signed: Leigh Ann Mcgregor MD at 7:15 EST , Service support , CC: Himanshu Simpson; Roma Grajeda DO Head Cager: Signed EMERGENCY DEPARTMENT Observed: 09/01/2018 Status: F Source: [place] SUMMARY 4:49 PM [facility] REPOSITORY [facility] Medical Records Department [address] [place] [address] Emergency Department Summary 09/01/18 1539 MR#: [id number] Acct: [id number] Name: MARLI ROSALES Rep #: [id number] : 1935 82 From: Amado Jaffe MD PCP: Roma Grajeda DO Status: REG ER - ER Visit Summary Date of Service: 09/01/18 Chief Complaint: Back injury History of Present Illness: The patient is a 82 F presenting for evaluation secondary to a back injury. Patient reports that she suffered a mechanical fall about 5 days ago where her leg gave out in the bathroom and she struck her right posterior chest on a half wall in their bathroom. She denies that she hit her head or loss consciousness. Patient states that she has had continuous pain in that region. She had a thoracic spine x-ray that was found to be negative a couple of days ago, but in the last day or so she states that she is having increased pain and she feels as if things are moving in there. Patient does state that she feels somewhat short of breath associated with this but denies any hemoptysis. Physical Examination: Vital signs notable blood pressure 173/78. Well-nourished female no acute distress. Head normocephalic. Heart regular rate and rhythm, lungs clear. Chest shows tenderness to palpation in the posterior ribs on the right hemithorax with some tenderness to palpation in the thoracic spine. No evidence of step-offs crepitus or deformity. No asymmetric lung sounds. Remainder physical otherwise unremarkable. Test Results: Right-sided rib series was performed Emergency Department Course and Treatment: Patient presented with persistent rib pain that she states is now worse. Patient was treated with oxycodone and a lidocaine patch in the emergency department. Repeat evaluation showed the patient to have improvement. Urinalysis was performed as the patient started to complain of urinary complaints and was found to be positive for infection. Patient was given Bactrim for that. Patient's rib radiographs were found to be negative per radiology my personal review. This point I believe the patient appropriate for discharge. She will be discharged with a course lidocaine patches on an incentive spirometer. Disposition: Discharge Impression: 1. Right rib contusion 2. Urinary tract infection This note was generated with Bright[employer]md dictation software. It may contain incorrect words, spelling, and punctuation that were not noted in review of the chart prior to signing ED Disposition - Plan for ED Patient: Disposition: Home or Assisted Living Chief Complaint: Back Diagnosis: Contusion of rib on right side, UTI (urinary tract infection) Instructions: ED UTI Cystitis Female, ED Contusion Rib Prescriptions: Lidocaine [Lidoderm Patch] 1 patch TOPICAL DAILY #10 patch Smz/Tmp Ds [Bactrim Ds] 1 tab PO BID #14 tab Referrals: Roma Grajeda DO [Primary Care Provider] - 2 Days What to do if you have Problems For any increased pain, shortness of breath, bleeding, nausea or vomiting, chest pain, or any unexpected problems, contact your Primary Care Provider. Call [facility] ([phone]) or report to the closest Emergency Room. Call 911 if necessary. 09/01/18 7041 <Electronically signed by Amado Jaffe MD> Date Amado Jaffe MD Cosigner Signature (If Indicated): Date CC: Roma Grajeda DO URINALYSIS, COMPLETE Collected: 09/01/2018 Status: F Source: [place] 2:45 PM [facility] REPOSITORY Order Comment: Order Date: 09/01/18 How was Urine Obtained? MISDRAW HAND TO SPECIFY TYPE CODE TESTS RESULT OUT OF REFERENCE UNITS RANGE LAB L400.3000 Yellow COLOR Normal Straw LAB L400.3050 Clear CLARITY Normal Cloudy LAB L400.3200 Normal mg/dl GLUCOSE, UR Normal Normal LAB L400.3300 Negative mg/dL BILIRUBIN Normal URINE Negative LAB L400.3400 Negative mg/dl KETONE UR Normal Negative LAB L400.3465 1.002-1.030 SP.GR. Normal DIPSTX 1.010 LAB L400.3550 5.0 - 8.0 pH UR Normal 6.5 LAB L400.3600 Negative mg/dl PROT DIPSTX High 15 LAB L400.3700 Normal mg/dl UROBILI Normal Normal LAB L400.3750 Negative NITRITE UR Normal Negative LAB L400.3780 Negative /ul OCCULT High BLOOD-UR 50 LAB L400.3800 Negative /ul LEUK High ESTERASE 500 LAB L400.4050 0-5 /hpf WBC Normal 50-100 SEEN LAB L400.4100 0-5 /hpf RBC-UA Normal 0-5 SEEN LAB L400.4150 5-10 /hpf SQUAM EPI Normal 0-5 SEEN LAB L400.4300 None Seen /hpf BACTERIA Normal 0 SEEN LAB L400.4350 <or=2+ /hpf MUCUS, Normal URINE 0 SEEN LAB L400.4200 0-5 /hpf Normal TRANSITIONAL EP 0-5 SEEN LAB L400.4250 0-5 /hpf RENAL EPI Normal 0-5 SEEN Performed By: #### L400.0001 #### [facility] [address] [facility] [place], [address] RIBS UNI MIN 3V Observed: 09/01/2018 Status: F Source: [place] W/PA CHEST 2:29 PM [facility] REPOSITORY [facility] Imaging Services [address] [place] [address] Ribs Uni Min 3V w/PA Chest MR#: [id number] Acct: [id number] Name: MARLI ROSALES Rep #: [id number] : 1935 F 82 From: Danielle Pruett MD PCP: Roma Grajeda DO Status: REG ER Study: Ribs Uni Min 3V w/PA Chest Date of Exam: 09/01/18 Exam# [id number] Ordering Dr: Amado Jaffe MD STUDY: X-RAY - UNILATERAL RIBS ( RIGHT ) WITH CHEST REASON FOR EXAM: Female, 82 years old. Chest pain after falling. TECHNIQUE - RIBS: 2 view(s) of the ribs. TECHNIQUE - CHEST: 1 view COMPARISON: Prior chest radiograph of November 09, 2017. FINDINGS - RIBS: Demineralized osseous structures without a demonstrated acute rib fracture. FINDINGS - CHEST: Lung llanos remain expanded without new consolidation, pneumothorax, focal atelectasis or a substantial pleural effusion. There is no demonstrated pleural abnormality. Normal size heart. Normal mediastinum and alex. Normal visualized pulmonary arteries. There is atherosclerotic calcification of the aortic arch with tortuosity. There is demineralization of the osseous structures. Status post bilateral shoulder arthroplasty. Multiple old left rib fractures. Status post cholecystectomy. RAD/Ribs Uni Min 3V w/PA Chest IMPRESSION: RIBS: Demineralized osseous structures without acute right rib fracture. CHEST: No acute cardiopulmonary findings or changes. Electronically Signed: Danielle Pruett MD at 16:23 EST , Service support , CC: Roma Grajeda DO; Amado Jaffe Head Cager: Signed URGENT CARE VISIT Observed: 08/27/2018 Status: F Source: [place] REPORT 5:59 PM [facility] REPOSITORY [facility] [address] [place] [address] [address] [place] [address] OFFICE VISIT Date of Service: 08/27/18 MR#: [id number] Acct: [id number] Name: MARLI ROSALES Rep #: [id number] : 1935 Provider: Juanito COOPER Age/Sex: 82/F Location: [facility] Status: Signed Intake Vital Signs08/27/18 Body Mass Index (BMI) 29.6 08/27/18 Height 4 ft 11 in 08/27/18 Weight: 147 lb 08/27/18 Body Mass Index (BMI) 29.7 08/27/18 Blood Pressure 114/68 08/27/18 Respiratory Rate 14 08/27/18 Pulse Rate 83 Intake Visit Reasons: BACK PAIN/ RIB PT FELL LAST NIGHT Chief Complaint: fall 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 Accompanied by: Is patient in pain?: Yes Allergies grass pollen-perennial rye, standar [grass poll-perennial rye,std] Allergy (Verified 08/27/18 15:44) sinus pressure gluten Adverse Reaction (Verified 08/27/18 15:44) Food Allergy lactose Adverse Reaction (Verified 08/27/18 15:44) Food Allergy DUST Allergy (Uncoded 08/27/18 15:44) sinus pressure MOLD Allergy (Uncoded 08/27/18 15:44) SINUS PRESSURE Medications Amlodipine [Norvasc] 5 mg PO DAILY 12/31/14 [History Confirmed 08/27/18] Gabapentin [Neurontin] 300 mg PO TID 12/31/14 [History Confirmed 08/27/18] Levothyroxine [Synthroid] 50 mcg PO DAILY 12/31/14 [History Confirmed 08/27/18] Lisinopril [Zestril] 20 mg PO DAILY 12/31/14 [History Confirmed 08/27/18] traZODone [Desyrel] 50 mg PO QHS 12/31/14 [History Confirmed 08/27/18] Ascorbic Acid [Vitamin C] 1,000 mg PO QHS 03/23/16 [History Confirmed 08/27/18] Methenamine Mandelate 1 gm PO QHS 03/23/16 [History Confirmed 08/27/18] Guaifenesin [Mucinex] 600 mg PO BID PRN PRN 08/25/16 [History Confirmed 08/27/18] Polyethylene Glycol 3350 [Miralax] 17 gm PO DAILY 08/25/16 [History Confirmed 08/27/18] Alendronate Sodium [Fosamax] 70 mg PO FR 03/09/17 [History Confirmed 08/27/18] Cetirizine HCl [Zyrtec] 10 mg PO PRN PRN 03/09/17 [History Confirmed 08/27/18] Fluticasone 0.05% [Flonase Nasal [place]] 2 spray NASAL QHS 03/09/17 [History Confirmed 08/27/18] Bio X4 1 cap PO PRN PRN 10/23/17 [History Confirmed 08/27/18] Cholecalciferol (Vitamin D3) [Vitamin D3] 5,000 unit PO DAILY 10/23/17 [History Confirmed 08/27/18] Docusate Sodium [Stool Softener] 100 mg PO QHS 10/23/17 [History Confirmed 08/27/18] Esomeprazole Magnesium [Nexium 24Hr] 20 mg PO PRN PRN 10/23/17 [History Confirmed 08/27/18] Ferrous Sulfate 325 mg PO DAILY@0800 10/23/17 [History Confirmed 08/27/18] Hyoscyamine Sulfate 0.125 mg SL PRN PRN 10/23/17 [History Confirmed 08/27/18] Linaclotide [Linzess] 72 mcg PO DAILY 10/23/17 [History Confirmed 08/27/18] Mirabegron [Myrbetriq] 25 mg PO DAILY 10/23/17 [History Confirmed 08/27/18] Simethicone [Gas Relief] 125 mg PO PRN PRN 10/23/17 [History Confirmed 08/27/18] Oxycodone [Oxyir] 5 - 10 mg PO Q4H PRN PRN 7 Days #60 tab 11/08/17 [Rx Confirmed 08/27/18] Acetaminophen [Tylenol] 1,000 mg PO Q8 11/13/17 [History Confirmed 08/27/18] Melatonin 10 mg PO QHS #30 tab 11/21/17 [Rx Confirmed 08/27/18] Pantoprazole Sodium [Protonix] 40 mg PO BID #60 tab 11/21/17 [Rx Confirmed 08/27/18] Potassium Chloride [K-Dur] 20 meq PO DAILYCM #30 tab 11/21/17 [Rx Confirmed 08/27/18] PFSH Medical History Asthma (Acute) Kidney disease (Acute) Osteoporosis (Acute) Thyroid disease (Acute) Hypertension (Chronic) Social History Smoking Status: Never smoker alcohol intake: never HPI HPI Chief Complaint: fall Details: MARLI ROSALES, is a 82 F who presents to the office today for complaint of thoracic back pain after a fall this morning. Patient states that she fell back into a railing this morning hitting her back. Patient states that she feels as if her right ribs may have been fractured and is requesting a x-ray at this time. She localizes the pain to the back area where the ribs connect to the spine and states that she has had issues with a rib dislocation. She has the pain currently. She rates the pain a 6-7 out of 10 at worst when touched or when side bending. She denies any shortness of breath, difficulty breathing or chest pain. No other associated symptoms or alleviating/aggravating factors. ROS Const Constitutional: No chills, fever(s), fatigue or abnormal sleep pattern Resp Respiratory: No shortness of breath or chest congestion Cardio Cardiology: No chest pain at rest, chest pain with exertion or shortness of breath Musc Musculoskeletal: Positive for joint pain and back pain; no deformity, tingling or numbness Skin Skin: No wounds or lesions Neuro Neurology: No behavioral changes, confusion, tingling or numbness Psych Psychiatric: No behavioral changes, No confusion, No abnormal sleep pattern Endo Endocrine: No fatigue Exam Const General: cooperative, healthy appearing Resp Effort AND Inspection: normal respiratory effort Auscultation: Bilateral: Clear to Auscultation Cardio Palpation: normal PMI Rate: regular rate Rhythm: regular rhythm Skin General: no rashes or lesions noted Neuro General: alert, CN's II-XI intact bilaterally Psych Appearance: grossly normal Mental Status: mental status grossly normal Assessment AND Plan Problems 1. Contusion of right side of back, initial encounter S20.221A Status Acute Plan X-ray read by the radiologist finding no acute fracture. Patient advised to use ice 3 times daily for 20 minutes as well as ibuprofen or Tylenol as needed for pain. Advised to follow-up with her PCP in 5-7 days if no better sooner if worse. Advised of potential red flags and when appropriate report to the ED. Patient verbalized understanding of all the above. Orders Orders: Coding Level of Care Code Off vis,est,level 3 Diagnoses Contusion of right side of back, initial encounter S20.221A Encounter type: initial encounter Laterality: right 08/27/18 0222 <Electronically signed by Juanito COOPER> Date Juanito COOPER [facility] Signature: Date (if applicable) CC: THORACIC SPINE 2 Observed: 08/27/2018 Status: F Source: [place] VIEWS 3:54 PM [facility] REPOSITORY [facility] Imaging Services [address] [place] [address] Thoracic Spine 2 Views MR#: [id number] Acct: [id number] Name: MARLI ROSALES Rep #: [id number] : 1935 F 82 From: Bhupinder Reid MD PCP: Roma Grajeda DO Status: REG CLI Study: Thoracic Spine 2 Views Date of Exam: 08/27/18 Exam# [id number] Ordering Dr: Juanito Pack STUDY: X-RAY - THORACIC SPINE REASON FOR EXAM: Female, 82 years old. Trauma, mid back pain TECHNIQUE: 4 view(s) of the thoracic spine were obtained. COMPARISON: None. FINDINGS: Several of the upper thoracic vertebrae are obscured by shoulder replacements. There is an increase in the normal thoracic kyphosis. There is no substantial scoliosis. There is demineralization of the thoracic spine with endplate spondylosis. Normal disc space heights. The soft tissue structures are unremarkable. RAD/Thoracic Spine 2 Views IMPRESSION: Increased thoracic kyphosis. Generalized osteopenia with diffuse endplate spondylosis. There is no evidence of fracture or subluxation. Electronically Signed: Bhupinder Reid MD at 16:30 EST , Service support , CC: Juanito COOPER; Roma Grajeda DO Head Cager: Signed URINALYSIS, ROUTINE Collected: 07/04/2018 Status: F Source: [place] ([place]) 4:10 PM [facility] REPOSITORY Order Comment: How was Urine Obtained? CLEAN CATCH TYPE CODE TESTS RESULT OUT OF RANGE REFERENCE UNITS LAB L400.3000 Yellow COLOR Normal Yellow LAB L400.3050 Clear Normal CLARITY Cloudy LAB L400.3200 Normal mg/dl Normal GLUCOSE, UR Normal LAB L400.3300 Negative mg/dL Normal BILIRUBIN URINE Negative LAB L400.3400 Negative mg/dl Normal KETONE UR Negative LAB L400.3465 1.002-1.030 Normal SP.GR. DIPSTX 1.010 LAB L400.3550 5.0 - 8.0 pH UR Normal 6.0 LAB L400.3600 Negative mg/dl High PROT 30 DIPSTX LAB L400.3700 Normal mg/dl Normal UROBILI Normal LAB L400.3750 Negative Normal NITRITE UR Negative LAB L400.3780 Negative /ul High 25 OCCULT BLOOD-UR LAB L400.3800 Negative /ul High LEUK ESTERASE 500 Performed By: #### L400.2010 #### [facility] [address] [place], [place], [address] CBC W/DIFF, AUTOMATED Collected: 07/04/2018 Status: F Source: [place] 2:47 PM [facility] REPOSITORY TYPE CODE TESTS RESULT OUT OF RANGE REFERENCE UNITS LAB L100.1000 4.4-11.0 K/mm3 Normal WBC 7.0 LAB L100.1200 4.2-5.4 M/mm3 Low RBC 3.91 LAB L100.1300 12.0-15.0 g/dl Low HGB 11.9 LAB L100.1400 37-47 % Normal HCT 37.4 LAB L100.1500 81-99 fL Normal MCV 95.7 LAB L100.1600 27.0-32.0 pg Normal MCH 30.4 LAB L100.1700 32-36 g/gl Low MCHC 31.8 LAB L100.1810 11.6-14.6 % Normal RDW CV 13.0 LAB L100.1820 35.1-43.9 fl High RDW SD 44.9 LAB L100.1900 150-450 K/mm3 Normal PLT 239 LAB L100.2000 6.2-12.0 fl Normal MPV 9.6 LAB L100.2100 47-70 % Normal NEUT% 68.3 LAB L100.2200 19-41 % Normal LY% 19.8 LAB L100.2300 0-10 % Normal MONO% 9.1 LAB L100.2400 0-5 % Normal EO% 2.3 LAB L100.2500 0-1 % Normal BASO% 0.4 LAB L100.2550 0.0-0.9 % Normal IM GRAN % 0.100 Result Comment: IG% - Immature Granulocytes (promyelocytes, myelocytes and metamyelocytes) > 1% indicates that a LEFT SHIFT is Present. LAB L100.2620 2.0-7.7 X10 3/uL Normal Absolute Neut 4.8 LAB L100.2720 0.83-4.51 X10 3/ul Normal Absolute Lymph 1.39 Performed By: #### L100.0100 #### [facility] [address] [facility] [place], [address] L/S SPINE MIN 4 Observed: 06/19/2018 Status: F Source: [place] VIEWS 3:49 PM [facility] REPOSITORY [facility] Imaging Services [address] [place] [address] L/S Spine Min 4 Views MR#: [id number] Acct: [id number] Name: MARLI ROSALES Rep #: [id number] : 1935 F 82 From: Bhupinder Reid MD PCP: Roma Grajeda DO Status: REG CLI Study: L/S Spine Min 4 Views Date of Exam: 06/19/18 Exam# [id number] Ordering Dr: Roma Hull HEAD TURBINE OPERATOR-C STUDY: X-RAY - LUMBAR SPINE REASON FOR EXAM: Female, 82 years old. Low back pain TECHNIQUE: 5 view(s) of the lumbar spine were obtained. COMPARISON: None FINDINGS: Normal lumbar lordosis. There is no substantial scoliosis. There is a normal alignment of the vertebrae. There are posterior spinal fusion changes with interpeduncular screws and rods from L3 to S1. There are status post laminectomy changes of L3-L5. There is multi-level degenerative disc disease with multi- level disc space narrowing. There is no demonstrated fracture. Status post total right hip replacement changes are also noted. The soft tissue structures are unremarkable. RAD/L/S Spine Min 4 Views IMPRESSION: 1. Posterior spinal fusion changes with interpeduncular screws and rods from L3 to S1. 2. Status post laminectomy changes at L3-L5. 3. Multilevel disc space narrowing. 4. 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 Electronically Signed: Bhupinder Reid MD at 22:38 EDT , Service support , CC: Roma Hull; Roma Grajeda DO Head Cager: Signed COMPREHENSIVE METABOLIC Collected: 06/06/2018 Status: F Source: [place] 4:46 PM [facility] REPOSITORY TYPE CODE TESTS RESULT OUT OF RANGE REFERENCE UNITS LAB L501.0100 74-106 mg/dL Normal GLU 78 Result Comment: Please note revised GLUCOSE reference range effective 2017. LAB L501.1000 7-18 mg/dL High BUN 23 LAB L501.1100 0.55-1.02 mg/dL Normal CREAT,SERUM 0.85 Result Comment: The validity of the calculated GFR AND GFRAA in patients over 70 years has not been determined. Clinical correlation is essential. LAB L501.1110 >60 mL/min Normal EST GFR 68 Result Comment: Non- GFR Calc LAB L501.1115 >60 mL/min Normal EST GFR - AA 83 Result Comment: GFR Calc LAB L501.1300 10-20 RATIO High BUN/CRE 27.2 LAB L501.1500 6.4-8.2 g/dL T Normal PROT 7.3 LAB L501.1800 3.2-5.0 g/dL Normal ALB 3.7 LAB L501.1950 2.2-4.2 g/dL Normal GLOB 3.6 LAB L501.2000 0.9-2.4 RATIO Normal A/G 1.0 LAB L501.2200 8.5-10.1 mg/dL CA Normal 8.6 LAB L501.4100 15-37 U/L Normal AST 18 LAB L501.4305 45-117 U/L Normal ALK P 63 LAB L501.4405 13-56 U/L Normal ALT 25 LAB L501.4600 0.20-1.00 mg/dL T Normal BILI 0.50 LAB L501.5300 136-145 mmol/L NA Normal 138 LAB L501.5600 3.5-5.1 mmol/L K Normal 4.6 LAB L501.5900 98-107 mmol/L CL Normal 102 LAB L501.6100 21.0-32.0 mmol/L Normal CO2 27.0 LAB L501.6200 5-15 Normal GAP 9 Performed By: #### L500.4050, L501.9520, L506.0400 #### [facility] [address] [place], [place], [id number] THYROID STIM HORMONE Collected: 06/06/2018 Status: F Source: [place] (TSH) 4:46 PM [facility] REPOSITORY TYPE CODE TESTS RESULT OUT OF RANGE REFERENCE UNITS LAB L501.9520 0.358-3.74 uIU/mL Normal TSH 2.46 Performed By: #### L500.4050, L501.9520, L506.0400 #### [facility] [address] [place], [place], [id number] T4 FREE DIRECT Collected: 06/06/2018 Status: F Source: [place] 4:46 PM [facility] REPOSITORY TYPE CODE TESTS RESULT OUT OF RANGE REFERENCE UNITS LAB L506.0400 0.76-1.46 ng/dL Normal T4 FREE 1.10 DIRECT Performed By: #### L500.4050, L501.9520, L506.0400 #### [facility] [address] [place], [place], [id number] T3 TOTAL - TRIIODOTHYRONINE Collected: 06/06/2018 Status: F Source: [place] 4:46 PM [facility] REPOSITORY TYPE CODE TESTS RESULT OUT OF RANGE REFERENCE UNITS LAB L501.9186 0.6-1.81 ng/mL Normal T3 Total 0.73 Performed By: #### L501.9186 #### [facility] [address] [place], [address] URINALYSIS WITH Collected: 05/27/2018 Status: F Source: [place] MICROSCOPIC 12:15 PM [facility] REPOSITORY TYPE CODE TESTS RESULT OUT OF RANGE REFERENCE UNITS LAB UCOL Yellow Color Yellow LAB [facility] Clear Clarity Abnormal Slightly Alert Cloudy LAB UGLUC Negative mg/dL Glucose, Urine Negative LAB UBIL Negative Bilirubin, Urine Negative LAB UKET Negative Ketones, Urine Negative LAB USPG 1.005-1.030 Specific [place], Ur 1.015 LAB UHGB Negative Abnormal Hemoglobin/Blood, 2+ Alert Ur LAB UPH 4.5-8.0 pH 6.0 LAB UPROT Negative mg/dL Protein, Abnormal Urine 100 Alert LAB UUROB Normal Urobilinogen Normal LAB UNITR Negative Nitrites Negative LAB ULKEST Negative Leukest Abnormal 3+ Alert LAB UWBC 0-5 /HPF WBC Abnormal >25 Alert LAB URBC 0-3 /HPF RBC Abnormal 6-10 Alert LAB UCAST 0 /LPF Cast SEE COMMENT Result Comment: 0 LAB UEPI /HPF Epithelial SEE Cells COMMENT Result Comment: Few Squamous Epithelial Cells Performed By: #### UAWMIC #### [facility] [address] [place], [place] [address] Observed: 05/27/2018 Status: F Source: [place] URINE CULTURE 7:34 AM [facility] REPOSITORY Sp. Request/Comment: - Specimen received in preservative Culture Result - 10,000 - <50,000 CFU/ml Enterococcus faecalis --> ABNORMAL ALERT Cephalosporins, clindamycin, and TMP-SMX are not effective for the treatment of enterococcal infections. --> AB NORMAL ALERT Insignificant colony count. No further workup. --> ABNORMAL ALERT <10,000 CFU/ml Normal urogenital edu Performed By: #### URCUL #### [facility] [address], [place] [address] CNPN Observed: 05/27/2018 Status: COMPLETED Source: [place] 12:00 AM [facility] REPOSITORY Telephone (UROLWS) JOVANMARLI VERDUGO ([id number]) 1935 F Date Time Provider Department 05/27/18 ALEX NAVARRETE) UROLWS During your visit today, we recorded the following information about you: Madie Maravilla Ma 05/27/2018 11:52 AM Signed Pt stopped in to give urine specimen. Went swimming this weekend and has been having UTI symptoms since. Please file orders. Await results. Madie Maravilla Ma 06/05/2018 10:45 AM Signed Urine was negative for pathogens, Thank you, Roni Notified via [address]. Madie Maravilla Ma Allergies As of Date: 05/27/2018 Noted Allergy Reaction MOLD 02/08/2010 Comments: CHILDRESS sneezing, Date Reviewed: 12/24/2014 Reviewed by: Ziggy Villavicencio - Fully Assessed Reason for Visit: Lab Orders [1688] Primary Visit Diagnosis:Urinary tract infection without hematuria, site unspecified [N39.0] Order(s):URINE CULTURE [SQURCUL] Order #: [id number] FUTURE URINALYSIS WITH MICROSCOPIC [SQUAWMIC] Order #: [id number] FUTURE Prescriptions as of 05/27/2018 Sig: GABAPENTIN 300 MG CAPSULE Take 300 mg by mouth three ti* FERROUS SULFATE 325 MG (65 MG* Take 325 mg by mouth daily wi* ERGOCALCIFEROL (VITAMIN D2) 5* Take 50,000 Units by mouth on* MIRABEGRON ER 25 MG TABLET,EX* Take 25 mg by mouth once wilberto* ASCORBIC ACID (VITAMIN C) 500* Take 500 mg by mouth once lakeisha* ALENDRONATE 70 MG TABLET Take 70 mg by mouth once each* POLYETHYLENE GLYCOL 3350 17 G* Take 17 g by mouth once daily. AMLODIPINE 5 MG TABLET Take 5 mg by mouth once daily. PROPRANOLOL 10 MG TABLET Take 10 mg by mouth once wilberto* OMEPRAZOLE 40 MG CAPSULE,SHERI* Take 20 mg by mouth once wilberto* FEXOFENADINE 180 MG TABLET Take 180 mg by mouth once lakeisha* COMPOUNDED PRESCRIPTION Astelon nasal spray 2 sprays * FLONASE 50 MCG/ACTUATION NASA* One puff per nostril before l* SYNTHROID 25 MCG TABLET Take one(1) tablet daily. ZESTRIL 5 MG TABLET Take one(1) tablet daily. COLACE 100 MG CAPSULE Take one(1) tablet twice wilberto* COMPOUNDED PRESCRIPTION Phazyme 125 mg prn for gas TRAMADOL 50 MG TABLET Take half (1/2) to one(1) tab* Patient taking differently: four times a day Problem List As Of Date 05/27/2018 Noted Resolved LBP (Low Back Pain) [M54.5] INVALID FOR* Myalgia and Myositis [WBY7430] INVALID FOR* Right Knee Pain [M25.561] INVALID FOR* Displacement of Lumbar Intervertebral Disc with*INVALID FOR* Status Post Laminectomy with Spinal Fusion [Z98*INVALID FOR* Primary localized osteoarthrosis, lower leg [M1*INVALID FOR* Acute cystitis without hematuria [N30.00] INVALID FOR* Encounter Status:Closed by ALEX NAVARRETE PA-C on 05/27/18 Observed: 05/02/2018 Status: F Source: [place] URINE CULTURE 1:00 PM [facility] REPOSITORY Culture Result - 10,000 - <50,000 CFU/ml Normal urogenital edu Performed By: #### URCUL #### [facility] [address] [place] [id number] [facility] Observed: 04/24/2018 Status: COMPLETED Source: [place] 12:00 AM [facility] REPOSITORY Telephone (UROLMN) MARLI ROSALES ([id number]) 1935 F Date Time Provider Department 04/24/18 ALEX NAVARRETE) UROLMN During your visit today, we recorded the following information about you: KENNETH Villanueva 04/24/2018 9:37 AM Signed Patient now has a different bacteria causing UTI and has had Cipro in the past Will give Rx of Levaquin for 7 days to pharmacy Alex Navarrete, MPAS, [place], VANESA Maravilla Ma 04/25/2018 8:54 AM Signed Pt notified. Madie Maravilla Ma Allergies As of Date: 04/24/2018 Noted Allergy Reaction MOLD 02/08/2010 Comments: CHILDRESS sneezing, Date Reviewed: 12/24/2014 Reviewed by: Ziggy Villavicencio - Fully Assessed Reason for Visit: Refill Request [94] Primary Visit Diagnosis:Acute cystitis without hematuria [N30.00] Order(s):levoFLOXacin (LEVAQUIN) 500 mg tabletTake 1 tablet by mouth once daily for 7 days. FOR 7 DAYS.Disp: 7 tabletRfl: 0 Prescriptions as of 04/24/2018 Sig: LEVOFLOXACIN 500 MG TABLET Take 1 tablet by mouth once d* GABAPENTIN 300 MG CAPSULE Take 300 mg by mouth three ti* FERROUS SULFATE 325 MG (65 MG* Take 325 mg by mouth daily wi* ERGOCALCIFEROL (VITAMIN D2) 5* Take 50,000 Units by mouth on* MIRABEGRON ER 25 MG TABLET,EX* Take 25 mg by mouth once wilberto* ASCORBIC ACID (VITAMIN C) 500* Take 500 mg by mouth once lakeisha* ALENDRONATE 70 MG TABLET Take 70 mg by mouth once each* POLYETHYLENE GLYCOL 3350 17 G* Take 17 g by mouth once daily. AMLODIPINE 5 MG TABLET Take 5 mg by mouth once daily. PROPRANOLOL 10 MG TABLET Take 10 mg by mouth once wilberto* OMEPRAZOLE 40 MG CAPSULE,SHERI* Take 20 mg by mouth once wilberto* FEXOFENADINE 180 MG TABLET Take 180 mg by mouth once lakeisha* COMPOUNDED PRESCRIPTION Astelon nasal spray 2 sprays * FLONASE 50 MCG/ACTUATION NASA* One puff per nostril before l* SYNTHROID 25 MCG TABLET Take one(1) tablet daily. ZESTRIL 5 MG TABLET Take one(1) tablet daily. COLACE 100 MG CAPSULE Take one(1) tablet twice wilberto* COMPOUNDED PRESCRIPTION Phazyme 125 mg prn for gas TRAMADOL 50 MG TABLET Take half (1/2) to one(1) tab* Patient taking differently: four times a day Problem List As Of Date 04/24/2018 Noted Resolved LBP (Low Back Pain) [M54.5] INVALID FOR* Myalgia and Myositis [RHJ9171] INVALID FOR* Right Knee Pain [M25.561] INVALID FOR* Displacement of Lumbar Intervertebral Disc with*INVALID FOR* Status Post Laminectomy with Spinal Fusion [Z98*INVALID FOR* Primary localized osteoarthrosis, lower leg [M1*INVALID FOR* Acute cystitis without hematuria [N30.00] INVALID FOR* Prescriptions ordered this encounter Disp Refills Start End LEVOFLOXACIN 500 MG TABLET 7 ta* 0 04/24/2018 05/01/2018 Route: ORAL Sig: Take 1 tablet by mouth once daily for 7 days. FOR 7 DAYS. Medications Discontinued During This Encounter ciprofloxacin HCl (CIPRO) 250 mg tab* 04/24/2018 Class: Historical Med Route: ORAL Sig: Take 250 mg by mouth once daily. Disc: Course of therapy completed Encounter Status:Closed by ALEX NAVARRETE PA-C on 04/24/18 Observed: 04/19/2018 Status: F Source: [place] URINE CULTURE 3:30 PM [facility] REPOSITORY Sp. Request/Comment: - Presurgical Sterilization Specimen received in preservative Culture Result - >=100,000 CFU/ml Pseudomonas aeruginosa --> ABNORMAL ALERT Fosfomycin susceptibility testing is unavailable for organisms other than E.faecails and E.coli The FDA indication for f osfomycin tromethamine is uncomplicated UTIs caused by E. faecalis and E. coli only. <1,000 CFU/ml --> ABNORMAL ALERT Lactose positive gram negative bacilli --> ABNORMAL ALERT Insignificant colony count. No further workup. --> ABNORMAL ALERT ORGANISM: Pseudomonas aeruginosa METHOD: Minimum inhibitory concentration(Vitek) Antibiotic Interp SUZANNE Status Gentamicin SUSCEPTIBLE <=1 F Ciprofloxacin SUSCEPTIBLE <=0.25 F Cefepime SUSCEPTIBLE <=1 F Piperacillin/Tazobac SUSCEPTIBLE <=4 F Meropenem SUSCEPTIBLE <=0.25 F Performed By: #### URCUL #### [facility] [address] [place], [place] [address] PROGRESS Observed: 04/16/2018 Status: COMPLETED Source: [place] 3:05 PM [facility] REPOSITORY HNO ID: [id number] Author: Alex Navarrete (Pa) Service: (none) Author Type: Physician Feedmobile Driver Type: Progress Notes Filed: 04/22/2018 10:38 AM Note Text: [facility] PATIENT INFO: Marli Rosales82 year old PCP: Roma Grajeda DO Referred by: Roma Grajeda DO Consult: A consultation requested by Roma Grajeda DO UTI My final recommendations communicated back to the requesting physician by way of shared Medical record. CHIEF COMPLAINT: UTI HPI: This is a 82 year old female, who has had UTI , which started in 2018, and involves the Urine, Bladder Patient states this mild in severity and mild in quality, and is happening daily Aggravating factors: No , Alleviating Factors: No . And the patient denies having Fever, Chills, Rigors, Nausea and Vomiting VOIDING SYMPTOMS: NTF: 1-2 Times DTF: Q 3 HOURS FOS: Good Hesitancy: Yes Straining: Yes Intermittency: Yes Urgency: Yes Frequency: Yes Dysuria: Yes Gross Hematuria: No U/A Dipstick Positive Blood - Only No Incomplete Voiding: No Double Voiding: No Post Void Dribbling: No Incontinence: Yes REVIEW OF SYSTEMS: General: General: Well developed, well nourished. No acute distress HEENT: Negative for sore throat, difficulty swallowing. Negative for frequent or significant headaches, changes in vision or hearing. Cardiovascular: No history of cardiovascular symtoms or problems. No history of angina, CHF, AR, cardiac surgery of stents. Respiratory: Negative for current cough, dyspnea. No hx of pneumonia in the past six weeks Gastrointestinal: No history of GERD, PUD, abd pain, difficulty swallowing, GI bleed. Renal: Negative for renal failure and No history of dialysis Musculoskeletal: Negative for joint pain or swelling, back pain or muscle pain. Skin: Negative for lesions, rash and itching. Psychological: No history of psychiatric symptoms or problems. Neurologic: No history of TIA's, stroke, [employer] tumor, impaired sensorium, hemiplegia, paraplegia or quadriplegia. No neurological symptoms or problems. Hematology/Oncology: No history of bleeding or clotting disorder. Pt is not taking anti-coagulation or platelet medications. No history of hematological symptoms or problems. Endocrine: No history of endocrinological symtoms or problems No history of DM; has not taken steroids w/in past 30 days. Negative for excessive sweating, thirst or hunger PHYSICAL EXAMINATION: General Appearance/ Constitutional: Well developed, well nourished, and in no apparent distress HEENT: Not examined Neck: Lymph Nodes: Not examined Cardiac: Normal Breast: Not examined Pulmonary: Ascultation: Normal Effort: Normal GI: Soft and Non-tender Peripheral Vascular: Not examined Extremities: Cyanosis absent and Edema absent Skin: Normal Neurologic: Grossly non-focal and Alert and oriented ADDITIONAL DATA REVIEWED: Most recent imaging Most recent labs Results for orders placed or performed in visit on 04/01/18 UA DIP, URINE (POC) Result Value Ref Range GLUCOSE UA (POCT) Negative Negative mg/dL BILIRUBIN UA (POCT) Negative Negative KETONE UA (POCT) Negative Negative mg/dL SPECIFIC GRAVITY UA (POCT) 1.020 1.005 - 1.030 HEMOGLOBIN/BLOOD UA (POCT) Moderate (A) Negative PH UA (POCT) 6.0 4.5 - 8.0 PROTEIN UA (POCT) 100 (A) Negative mg/dL UROBILINOGEN UA (POCT) 0.2 Normal E.U./dL NITRITE UA (POCT) Negative Negative LEUKOCYTES UA (POCT) Large (A) Negative COLOR UA (POCT) Light yellow CLARITY UA (POCT) Cloudy URINE CULTURE Result Value Ref Range Specimen Request [place] Count Presurgical Sterilization Specimen received in preservative PLEASE ADD FOSFOMYCIN TO SENSITIVITY Culture >=100,000 CFU/ml Klebsiella pneumoniae (A) Susceptibility Klebsiella pneumoniae - MINIMUM INHIBITORY CONCENTRATION(VITEK) Ampicillin >=32 Resistant Gentamicin >=16 Resistant Trimeth sulfameth <=20 Susceptible Cefazolin* <=4 Susceptible * CLSI breakpoints for therapy of uncomplicated UTI's due to E.coli, K.pneumoniae, and P.mirabilis were applied and may be used to predict the activity of oral agents(cefaclor, cefdinir, cefpodoxime, cefprozil, cefuroxime, cephalexin, loracarbef). Ciprofloxacin <=0.25 Susceptible Nitrofurantoin 64 Intermediate Amikacin <=2 Susceptible Tobramycin 8 Intermediate Cefepime <=1 Susceptible Piperacillin/Tazobac <=4 Susceptible Ampicillin Sulbact 4 Susceptible Ceftriaxone <=1 Susceptible Meropenem <=0.25 Susceptible Ertapenem <=0.5 Susceptible IMPRESSION / PLAN: > History of UTI and following up from ER > reviewed culture from ER > Urine Culture sent > Start antibiotic after final > Follow up for 2 week post culture or sooner if not improving I spent approximately 40 minutes in this visit, with more than 50% of the time devoted to patient discussion, counseling, review of records and/or coordination of care. Alex Navarrete, SHABNAMS, [place], PAKristina FREEMAN Observed: 04/01/2018 Status: COMPLETED Source: [place] 1:30 PM [facility] REPOSITORY Office Visit (UROLWS) JOVANMARLI EVANSE ([id number]) 1935 F Date Time Provider Department 04/01/18 1:30 PM ALEX NAVARRETE (KENNETH) UROLWS During your visit today, we recorded the following information about you: Pulse Blood pressure Weight 80/minute 138/60 67.6 kg KENNETH Villanueva 04/22/2018 10:38 AM Signed [facility] PATIENT INFO: Marli Rosales82 year old PCP: Roma Grajeda DO Referred by: Roma Grajeda DO Consult: A consultation requested by Roma Grajeda DO UTI My final recommendations communicated back to the requesting physician by way of shared Medical record. CHIEF COMPLAINT: UTI HPI: This is a 82 year old female, who has had UTI , which started in 2018, and involves the Urine, Bladder Patient states this mild in severity and mild in quality, and is happening daily Aggravating factors: No , Alleviating Factors: No . And the patient denies having Fever, Chills, Rigors, Nausea and Vomiting VOIDING SYMPTOMS: NTF: 1-2 Times DTF: Q 3 HOURS FOS: Good Hesitancy: Yes Straining: Yes Intermittency: Yes Urgency: Yes Frequency: Yes Dysuria: Yes Gross Hematuria: No U/A Dipstick Positive Blood - Only No Incomplete Voiding: No Double Voiding: No Post Void Dribbling: No Incontinence: Yes REVIEW OF SYSTEMS: General: General: Well developed, well nourished. No acute distress HEENT: Negative for sore throat, difficulty swallowing. Negative for frequent or significant headaches, changes in vision or hearing. Cardiovascular: No history of cardiovascular symtoms or problems. No history of angina, CHF, AR, cardiac surgery of stents. Respiratory: Negative for current cough, dyspnea. No hx of pneumonia in the past six weeks Gastrointestinal: No history of GERD, PUD, abd pain, difficulty swallowing, GI bleed. Renal: Negative for renal failure and No history of dialysis Musculoskeletal: Negative for joint pain or swelling, back pain or muscle pain. Skin: Negative for lesions, rash and itching. Psychological: No history of psychiatric symptoms or problems. Neurologic: No history of TIA's, stroke, [employer] tumor, impaired sensorium, hemiplegia, paraplegia or quadriplegia. No neurological symptoms or problems. Hematology/Oncology: No history of bleeding or clotting disorder. Pt is not taking anti-coagulation or platelet medications. No history of hematological symptoms or problems. Endocrine: No history of endocrinological symtoms or problems No history of DM; has not taken steroids w/in past 30 days. Negative for excessive sweating, thirst or hunger PHYSICAL EXAMINATION: General Appearance/ Constitutional: Well developed, well nourished, and in no apparent distress HEENT: Not examined Neck: Lymph Nodes: Not examined Cardiac: Normal Breast: Not examined Pulmonary: Ascultation: Normal Effort: Normal GI: Soft and Non-tender Peripheral Vascular: Not examined Extremities: Cyanosis absent and Edema absent Skin: Normal Neurologic: Grossly non-focal and Alert and oriented ADDITIONAL DATA REVIEWED: Most recent imaging Most recent labs Results for orders placed or performed in visit on 04/01/18 UA DIP, URINE (POC) Result Value Ref Range GLUCOSE UA (POCT) Negative Negative mg/dL BILIRUBIN UA (POCT) Negative Negative KETONE UA (POCT) Negative Negative mg/dL SPECIFIC GRAVITY UA (POCT) 1.020 1.005 - 1.030 HEMOGLOBIN/BLOOD UA (POCT) Moderate (A) Negative PH UA (POCT) 6.0 4.5 - 8.0 PROTEIN UA (POCT) 100 (A) Negative mg/dL UROBILINOGEN UA (POCT) 0.2 Normal E.U./dL NITRITE UA (POCT) Negative Negative LEUKOCYTES UA (POCT) Large (A) Negative COLOR UA (POCT) Light yellow CLARITY UA (POCT) Cloudy URINE CULTURE Result Value Ref Range Specimen Request [place] Count Presurgical Sterilization Specimen received in preservative PLEASE ADD FOSFOMYCIN TO SENSITIVITY Culture >=100,000 CFU/ml Klebsiella pneumoniae (A) Susceptibility Klebsiella pneumoniae - MINIMUM INHIBITORY CONCENTRATION(VITEK) Ampicillin >=32 Resistant Gentamicin >=16 Resistant Trimeth sulfameth <=20 Susceptible Cefazolin* <=4 Susceptible * CLSI breakpoints for therapy of uncomplicated UTI's due to E.coli, K.pneumoniae, and P.mirabilis were applied and may be used to predict the activity of oral agents(cefaclor, cefdinir, cefpodoxime, cefprozil, cefuroxime, cephalexin, loracarbef). Ciprofloxacin <=0.25 Susceptible Nitrofurantoin 64 Intermediate Amikacin <=2 Susceptible Tobramycin 8 Intermediate Cefepime <=1 Susceptible Piperacillin/Tazobac <=4 Susceptible Ampicillin Sulbact 4 Susceptible Ceftriaxone <=1 Susceptible Meropenem <=0.25 Susceptible Ertapenem <=0.5 Susceptible IMPRESSION / PLAN: > History of UTI and following up from ER > reviewed culture from ER > Urine Culture sent > Start antibiotic after final > Follow up for 2 week post culture or sooner if not improving I spent approximately 40 minutes in this visit, with more than 50% of the time devoted to patient discussion, counseling, review of records and/or coordination of care. Alex Navarrete, MARY, [place], PA-C Referring Provider: ROMA GRAJEDA [[id number]] Allergies As of Date: 04/01/2018 Noted Allergy Reaction MOLD 02/08/2010 Comments: CHILDRESS sneezing, Date Reviewed: 12/24/2014 Reviewed by: Ziggy Villavicencio - Fully Assessed Reason for Visit: UTI [116] Primary Visit Diagnosis:Urinary tract infection without hematuria, site unspecified [N39.0] Order(s):UA DIP B/O [[id number]] Order #: [id number] UA DIP, URINE (POC) [[id number]] Order #: [id number]. #:[id number] URINE CULTURE [SQURCUL] Order #: [id number]. #:[id number] Prescriptions as of 04/01/2018 Sig: GABAPENTIN 300 MG CAPSULE Take 300 mg by mouth three ti* FERROUS SULFATE 325 MG (65 MG* Take 325 mg by mouth daily wi* ERGOCALCIFEROL (VITAMIN D2) 5* Take 50,000 Units by mouth on* MIRABEGRON ER 25 MG TABLET,EX* Take 25 mg by mouth once wilberto* ASCORBIC ACID (VITAMIN C) 500* Take 500 mg by mouth once lakesiha* ALENDRONATE 70 MG TABLET Take 70 mg by mouth once each* POLYETHYLENE GLYCOL 3350 17 G* Take 17 g by mouth once daily. AMLODIPINE 5 MG TABLET Take 5 mg by mouth once daily. PROPRANOLOL 10 MG TABLET Take 10 mg by mouth once wilberto* FEXOFENADINE 180 MG TABLET Take 180 mg by mouth once lakeisha* COMPOUNDED PRESCRIPTION Astelon nasal spray 2 sprays * FLONASE 50 MCG/ACTUATION NASA* One puff per nostril before l* SYNTHROID 25 MCG TABLET Take one(1) tablet daily. ZESTRIL 5 MG TABLET Take one(1) tablet daily. COLACE 100 MG CAPSULE Take one(1) tablet twice wilberto* TRAMADOL 50 MG TABLET Take half (1/2) to one(1) tab* Patient taking differently: four times a day CIPROFLOXACIN 250 MG TABLET Take 250 mg by mouth once lakeisha* OMEPRAZOLE 40 MG CAPSULE,SHERI* Take 20 mg by mouth once wilberto* COMPOUNDED PRESCRIPTION Phazyme 125 mg prn for gas Problem List As Of Date 04/01/2018 Noted Resolved LBP (Low Back Pain) [M54.5] INVALID FOR* Myalgia and Myositis [LWR3029] INVALID FOR* Right Knee Pain [M25.561] INVALID FOR* Displacement of Lumbar Intervertebral Disc with*INVALID FOR* Status Post Laminectomy with Spinal Fusion [Z98*INVALID FOR* Primary localized osteoarthrosis, lower leg [M1*INVALID FOR* Encounter Status:Closed by ALEX NAVARRETE PA-C on 04/22/18 Observed: 04/01/2018 Status: F Source: [place] URINE CULTURE 1:46 AM [facility] [place] REPOSITORY Sp. Request/Comment: - Low [place] Count Presurgical Sterilization Specimen received in preservative PLEASE ADD FOSFOMYCIN TO SENSITIVITY Culture Result - >=100,000 CFU/ml Klebsiella pneumoniae --> ABNORMAL ALERT ORGANISM: Klebsiella pneumoniae METHOD: Minimum inhibitory concentration(Vitek) Antibiotic Interp SUZANNE Status Ampicillin RESISTANT >=32 F Gentamicin RESISTANT >=16 F Trimeth sulfameth SUSCEPTIBLE <=20 F Cefazolin SUSCEPTIBLE <=4 F CLSI breakpoints for therapy of uncomplicated UTI's due to E.coli, K.pneumoniae, and P.mirabilis were applied and may be used to predict the activity of oral agents(cefaclor, cefdinir, cefpodoxime, cefp rozil, cefuroxime, cephalexin, loracarbef). Ciprofloxacin SUSCEPTIBLE <=0.25 F Nitrofurantoin INTERMEDIATE 64 F Amikacin SUSCEPTIBLE <=2 F Tobramycin INTERMEDIATE 8 F Cefepime SUSCEPTIBLE <=1 F Piperacillin/Tazobac SUSCEPTIBLE <=4 F Ampicillin Sulbact SUSCEPTIBLE 4 F Ceftriaxone SUSCEPTIBLE <=1 F Meropenem SUSCEPTIBLE <=0.25 F Ertapenem SUSCEPTIBLE <=0.5 F Performed By: #### URCUL #### [facility] [address] [place], [place] [address] OFFICE VISIT REPORT Observed: 03/22/2018 Status: F Source: [place] 4:[address] [address] OFFICE VISIT Date of Service: 03/21/18 MR#: [id number] Acct: [id number] Patient: MARLI ROSALES Rep #: [id number] : 1935 Provider: KENNETH Velázquez Age/Sex: 82/F [place] [facility] [place]: Signed Intake Vital Signs03/21/18 Height 4 ft 11 in 03/21/18 Weight: 147 lb 03/21/18 Body Mass Index (BMI) 29.7 03/21/18 Blood Pressure 112/68 Intake Visit Reasons: OPEN CUT ON FOREHEAD 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 Is patient in pain?: No Allergies grass pollen-perennial rye, standar [grass poll-perennial rye,std] Allergy (Verified 03/21/18 16:38) sinus pressure gluten Adverse Reaction (Verified 03/21/18 16:38) Food Allergy lactose Adverse Reaction (Verified 03/21/18 16:38) Food Allergy DUST Allergy (Uncoded 03/21/18 16:38) sinus pressure MOLD Allergy (Uncoded 03/21/18 16:38) SINUS PRESSURE Medications Amlodipine [Norvasc] 5 mg PO DAILY 12/31/14 [History Confirmed 03/21/18] Gabapentin [Neurontin] 300 mg PO TID 12/31/14 [History Confirmed 03/21/18] Levothyroxine [Synthroid] 50 mcg PO DAILY 12/31/14 [History Confirmed 03/21/18] Lisinopril [Zestril] 20 mg PO DAILY 12/31/14 [History Confirmed 03/21/18] traZODone [Desyrel] 50 mg PO QHS 12/31/14 [History Confirmed 03/21/18] Ascorbic Acid [Vitamin C] 1,000 mg PO QHS 03/23/16 [History Confirmed 03/21/18] Methenamine Mandelate 1 gm PO QHS 03/23/16 [History Confirmed 03/21/18] Guaifenesin [Mucinex] 600 mg PO BID PRN PRN 08/25/16 [History Confirmed 03/21/18] Polyethylene Glycol 3350 [Miralax] 17 gm PO DAILY 08/25/16 [History Confirmed 03/21/18] Alendronate Sodium [Fosamax] 70 mg PO FR 03/09/17 [History Confirmed 03/21/18] Cetirizine HCl [Zyrtec] 10 mg PO PRN PRN 03/09/17 [History Confirmed 03/21/18] Fluticasone 0.05% [Flonase Nasal Dumont] 2 spray NASAL QHS 03/09/17 [History Confirmed 03/21/18] Bio X4 1 cap PO PRN PRN 10/23/17 [History Confirmed 03/21/18] Cholecalciferol (Vitamin D3) [Vitamin D3] 5,000 unit PO DAILY 10/23/17 [History Confirmed 03/21/18] Docusate Sodium [Stool Softener] 100 mg PO QHS 10/23/17 [History Confirmed 03/21/18] Esomeprazole Magnesium [Nexium 24Hr] 20 mg PO PRN PRN 10/23/17 [History Confirmed 03/21/18] Ferrous Sulfate 325 mg PO DAILY@0800 10/23/17 [History Confirmed 03/21/18] Hyoscyamine Sulfate 0.125 mg SL PRN PRN 10/23/17 [History Confirmed 03/21/18] Linaclotide [Linzess] 72 mcg PO DAILY 10/23/17 [History Confirmed 03/21/18] Mirabegron [Myrbetriq] 25 mg PO DAILY 10/23/17 [History Confirmed 03/21/18] Simethicone [Gas Relief] 125 mg PO PRN PRN 10/23/17 [History Confirmed 03/21/18] Oxycodone [Oxyir] 5 - 10 mg PO Q4H PRN PRN 7 Days #60 tab 11/08/17 [Rx Confirmed 03/21/18] Acetaminophen [Tylenol] 1,000 mg PO Q8 11/13/17 [History Confirmed 03/21/18] Melatonin 10 mg PO QHS #30 tab 11/21/17 [Rx Confirmed 03/21/18] Pantoprazole Sodium [Protonix] 40 mg PO BID #60 tab 11/21/17 [Rx Confirmed 03/21/18] Potassium Chloride [K-Dur] 20 meq PO DAILYCM #30 tab 11/21/17 [Rx Confirmed 03/21/18] PFSH Social History Smoking Status: Never smoker alcohol intake: never HPI HPI Details: MARLI ROSALES, is a 82 F who presents to the office today for evaluation following a fall today in the parking lot at [facility]. Patient states that she was carrying two plants into the parking lot when she tripped over a speed bump and could not keep her balance falling forward onto the ground. Patient is pretty sure that she hit her head on the ground but thinks maybe it could have been the plants too. She states that she did not lose consciousness during the fall. She was able to get up on her own and states that she was not dizzy and felt fine other than having the bleeding from the head and in the right wrist area. She states that she feels like the plants as well as her purse kept her from hurting anything else as they helped to break her fall. She states that they got the bleeding stopped and she was not going to even come in but thought since it happened at [facility] that she should at least come in to have something documented. She has full recollection of the events before and after the fall. She denies having any acute visual changes or auditory changes. She denies any difficulties with speech or memory. She has no gait abnormalities. She denies having any pain in the shoulders, wrists, collarbone, hip, knees or ribs. She states that the forehead is a little sore but minor. ROS Const Constitutional: No weakness or headache(s) Eyes Eyes: No visual disturbances ENT ENT: No headache(s), ear discharge or dizziness/vertigo Musc Musculoskeletal: Positive for other; no numbness, abnormal walking, back pain or joint pain (Denies any joint pain) Skin Skin: Positive for wounds (Laceration on right forehead. Abrasion on right ulnar aspect of wrist) Neuro Neurology: No dizziness, weakness, headache(s), loss of vision, memory loss, numbness, visual disturbances, unsteady gait/balance, abnormal speech, abnormal walking, behavioral changes or confusion Psych Psychiatric: No memory loss, No behavioral changes, No confusion Exam Const General: cooperative, healthy appearing, comfortable, no acute distress, well developed, well groomed Nutritional Appearance: average body habitus Orientation: alert, awake, oriented x3, not confused HENMT Head: no hematomas Ears: TM's normal bilaterally, external ears normal Nose: no epistaxis Face and sinus: laceration (Small, round, puncture wound of forehead) Eyes Alignment and Position: alignment normal Pupils: PERRL, normal by confrontation, accommodation normal EOM: EOM intact bilaterally Musc Musculoskeletal: No joint tenderness Other: I did palpate multiple joints including shoulders, collarbones, elbows, wrists, and knees. She has no pains on palpation of these joints and moved these joints and extremities also without pain. Skin Trauma: abrasion (Abrasion of the right wrist on the ulnar aspect.) Wounds: wounds noted right forehead: open, size (This is a small 1 maybe 2 mm round puncture.) and other (Minor bleeding. Some surrounding swelling.); Negative for without any surrounding erythema Neuro General: alert, awake, oriented x3, gait normal Cranial Nerves: EOM intact bilaterally, PERRL, facial strength normal, able to rotate head bilaterally, able to elevate shoulders bilaterally, sense of smell intact Cognition: normal cognition Speech: speech normal Gait: normal gait Motor: muscle tone normal throughout Sensory Exam: no sensory deficits noted Coordination: [id number] test normal, rapid alternating movement UE normal (Normal rapid alternating movements.) Office Procedures Suture/Wound Repair Procedure performed by: Kraig Velázquez Explained risks and benefits to parent: Yes Informed consent given: Yes Sedation: No Anesthesia: other Irrigation: saline Wound exploration: other (No evident foreign bodies) Deep closure: No Skin closure: glue Topical treatment: triple antibiotic Tetanus toxoid ordered: No (Has had a tetanus within the past 2 years.) Patient tolerated procedure: well Complications: No Details: The open wound on the forehead was more of a small puncture hole rather than a laceration and therefore closure with suturing was not warranted. I did irrigate this wound thoroughly and cleanse the wounds both with saline irrigation and a dermal wound cleansing solution. The puncture was open when she would scrunch her eyebrows. And therefore small amount of glue was applied just to this small puncture and not over abraded skin. The rest of the abraded area was covered topically with triple antibiotic ointment Procedure - Billing Wound repr-simp;facial area: Yes Assessment AND Plan Problems 1. Fall, initial encounter W19.XXXA no LOC, lost balance 2. Laceration of forehead, initial encounter S01.81XA 3. Abrasion of right wrist, initial encounter S60.811A Plan Patient presents today primarily for the wound on the forehead. As discussed above it was a small puncture rather than laceration. This was irrigated and cleansed thoroughly before small amount of glue was applied. Even though she was here for the wound more than anything we spent most the time discussing closed head injuries and the risks for things such as bleeding under the scalp as well as intracranial. Patient and state that she has felt okay and did not feel that going to the emergency room was needed at this time. We discussed signs or symptoms to watch for that I would want her to present to the emergency room for further evaluation and probable image with CT scan which include sensory or motor deficit, Difficulties with gait, Change or difficulties of speech, Worsening headache or pain, confusion or memory changes, vision or auditory changes. Patient and understand these things to monitor for they have no other concerns at this time. I still would recommend follow-up with her primary care provider in 7-10 days or sooner with any other problems. This note was generated with Dragon dictation software. It may contain incorrect words, spelling, and punctuation that were not noted in checking the note before signing. Plan Detail Follow Up 7 Days Coding Level of Care Code Off vis,new,level 4 Diagnoses Fall, initial encounter W19.XXXA Encounter type: initial encounter Laceration of forehead, initial encounter S01.81XA Encounter type: initial encounter Abrasion of right wrist, initial encounter S60.811A Encounter type: initial encounter Additional Codes Procedure - Billing - Wound repr-simp;facial area: Yes ([id number]) 03/22/18 1613 <Electronically signed by Kraig COOPER> Date Kraig COOPER Cosigner Signature: Date (if applicable) CC: CBC W/DIFF, AUTOMATED Collected: 12/25/2017 Status: F Source: [place] 2:07 PM [facility] REPOSITORY TYPE CODE TESTS RESULT OUT OF RANGE REFERENCE UNITS LAB L100.1000 4.4-11.0 K/mm3 Normal WBC 6.6 LAB L100.1200 4.2-5.4 M/mm3 Low RBC 4.06 LAB L100.1300 12.0-15.0 g/dl Normal HGB 12.2 LAB L100.1400 37-47 % Normal HCT 38.7 LAB L100.1500 81-99 fL Normal MCV 95.3 LAB L100.1600 27.0-32.0 pg Normal MCH 30.0 LAB L100.1700 32-36 g/gl Low MCHC 31.5 LAB L100.1810 11.6-14.6 % Normal RDW CV 14.2 LAB L100.1820 35.1-43.9 fl High RDW SD 49.0 LAB L100.1900 150-450 K/mm3 Normal PLT 295 LAB L100.2000 6.2-12.0 fl Normal MPV 9.4 LAB L100.2100 47-70 % High NEUT% 75.1 LAB L100.2200 19-41 % Low LY% 16.1 LAB L100.2300 0-10 % Normal MONO% 5.9 LAB L100.2400 0-5 % Normal EO% 2.4 LAB L100.2500 0-1 % Normal BASO% 0.5 LAB L100.2550 0.0-0.9 % Normal IM GRAN % 0.000 Result Comment: IG% - Immature Granulocytes (promyelocytes, myelocytes and metamyelocytes) > 1% indicates that a LEFT SHIFT is Present. LAB L100.2620 2.0-7.7 X10 3/uL Normal Absolute Neut 5.0 LAB L100.2720 0.83-4.51 X10 3/ul Normal Absolute Lymph 1.07 Performed By: #### L100.0100 #### [facility] [address], [address] BASIC METABOLIC Collected: 12/25/2017 Status: F Source: [place] [facility]FILE ([facility]) 2:07 PM [facility] REPOSITORY TYPE CODE TESTS RESULT OUT OF RANGE REFERENCE UNITS LAB L501.0100 74-106 mg/dL Normal GLU 97 Result Comment: Please note revised GLUCOSE reference range effective 2017. LAB L501.1000 7-18 mg/dL High BUN 23 LAB L501.1100 0.55-1.02 mg/dL Normal CREAT,SERUM 0.85 Result Comment: The validity of the calculated GFR AND GFRAA in patients over 70 years has not been determined. Clinical correlation is essential. LAB L501.1110 >60 mL/min Normal EST GFR 68 Result Comment: Non- GFR Calc LAB L501.1115 >60 mL/min Normal EST GFR - AA 83 Result Comment: GFR Calc LAB L501.1300 10-20 RATIO High BUN/CRE 27.1 LAB L501.2200 8.5-10.1 mg/dL CA Normal 9.1 LAB L501.5300 136-145 mmol/L NA Normal 136 LAB L501.5600 3.5-5.1 mmol/L K Normal 4.4 LAB L501.5900 98-107 mmol/L CL Normal 101 LAB L501.6100 21.0-32.0 mmol/L Normal CO2 26.0 LAB L501.6200 5-15 Normal GAP 9 Performed By: #### L500.2500 #### [facility] [address] [place] [place], [address] DISCHARGE SUMMARY Observed: 11/21/2017 Status: F Source: [place] 8:58 PM [facility] REPOSITORY [facility] Medical Records Department [address] [place] [address] Discharge Summary 11/21/172055 MR#: [id number] Acct: [id number] Name: MARLI ROSALES Rep #: [id number] : 1935 81 From: Kiel Son MD PCP: Roma Grajeda DO Status: ADM IN Y Location: [place] [address] Discharge Date and Diagnosis - Problem List Patient Problems: Active and Suspected Problems Melena (Acute) Acute gastritis (Acute) Date of Admission: 11/13/17 Date of Discharge: 11/22/17 - Primary Discharge Diagnosis Active and Suspected Problems Melena (Acute) Acute gastritis (Acute) - Secondary Discharge Diagnosis Chronic Problems Peptic ulcer disease (Chronic) Osteoarthritis of right hip (Chronic) Low back pain (Chronic) Allergic rhinitis (Chronic) Osteoporosis (Chronic) Asthma (Chronic) Insomnia (Chronic) Recurrent UTI (Chronic) Constipation (Chronic) Overactive bladder (Chronic) History of peptic ulcer disease (Chronic) Hypothyroidism (Chronic) Hypertension (Chronic) Hospital Course and Treatment Imaging Results: 11/13/17 18:07 Diet: Regular Diet Food consistency:: Regular Liquid Consistency:: Regular/Thin Dietary Modifications:: Gluten Free Is pt able to select menu?: Yes Diet Comments: lactose free Labs (Last 48 Hours) Microbiology 11/20/17 10:00 Urine, Catheterized Urine Culture - Preliminary Culture exhibits no growth. Operations: None, - - ORIF right hip fracture Procedures: None Summary of Care Provided: The patient is a 81 year old Female with below past medical history hospitalized for fall secondary to anemia from acute gastritis requiring blood transfusion, complicated by acute kidney injury from dehydration, side effects from medications, admitted to TCU for debility, for rehabilitation, strengthening.] Will discharge home with spouse. Will have outpatient physical therapy. Discharge Diet: No Restrictions Discharge Activity: Return to Normal Activity, May Shower, Use Walker May resume sexual activity in: No Restrictions Weight Bearing Status: Weight bearing as tolerated Call your doctor if you observe: Fever of 101 or Higher, Inability to urinate, Inability to have a bowel movement, Shortness of breath, Chest pain, Uncontrolled pain Home Medications: Medications to take at Discharge Amlodipine [Norvasc] 5 mg PO DAILY 12/31/14 Gabapentin [Neurontin] 300 mg PO TID 12/31/14 Levothyroxine [Synthroid] 50 mcg PO DAILY 12/31/14 Lisinopril [Zestril] 20 mg PO DAILY 12/31/14 Trazodone HCl [Desyrel] 50 mg PO QHS 12/31/14 Ascorbic Acid [Vitamin C] 1,000 mg PO QHS 03/23/16 Methenamine Mandelate 1 gm PO QHS 03/23/16 Guaifenesin [Mucinex] 600 mg PO BID PRN PRN 08/25/16 Polyethylene Glycol 3350 [Miralax] 17 gm PO DAILY 08/25/16 Alendronate Sodium [Fosamax] 70 mg PO FR 03/09/17 Cetirizine HCl [Zyrtec] 10 mg PO PRN PRN 03/09/17 Fluticasone 0.05% [Flonase Nasal Dumont] 2 spray NASAL QHS 03/09/17 Bio X4 1 cap PO PRN PRN 10/23/17 Cholecalciferol (Vitamin D3) [Vitamin D3] 5,000 unit PO DAILY 10/23/17 Docusate Sodium [Stool Softener] 100 mg PO QHS 10/23/17 Esomeprazole Magnesium [Nexium 24Hr] 20 mg PO PRN PRN 10/23/17 Ferrous Sulfate 325 mg PO DAILY@0800 10/23/17 Hyoscyamine Sulfate 0.125 mg SL PRN PRN 10/23/17 Linaclotide [Linzess] 72 mcg PO DAILY 10/23/17 Mirabegron [Myrbetriq] 25 mg PO DAILY 10/23/17 Simethicone [Gas Relief] 125 mg PO PRN PRN 10/23/17 Oxycodone [Oxyir] 5 - 10 mg PO Q4H PRN PRN 7 Days #60 tablet 11/08/17 Acetaminophen [Tylenol] 1,000 mg PO Q8 11/13/17 Melatonin 10 mg PO QHS #30 tab 02/14/18 Pantoprazole Sodium [Protonix] 40 mg PO BID #60 tab 11/21/17 Potassium Chloride [K-Dur] 20 meq PO DAILYCM #30 tab 11/21/17 Following Prescrptions Were Given to Patient: Melatonin 10 mg PO QHS #30 tab Potassium Chloride [K-Dur] 20 meq PO DAILYCM #30 tab Pantoprazole Sodium [Protonix] 40 mg PO BID #60 tab Primary Care Physician: Roma Grajeda DO [Primary Care Provider] - Please follow up with your Primary Care Physician in: 1 week. Please Follow Up With: Dr Huynh When: 2 weeks. Please Follow Up With: Dr Sera Blankenship When: 2 weeks. Disposition: Home Minutes spent on discharge:: 30 Patient Condition:: Stable Meaningful Use Info Meaningful Use Diagnoses (Choose all that apply): None applicable 11/21/172057 <Electronically signed by Kiel Son MD> Date Kiel Son MD Cosigner Signature (if applicable): Date CC: Roma Grajeda DO; Kiel Son MD Signed DISCHARGE INSTRUCTION Observed: 11/21/2017 Status: F Source: [place] 8:56 PM [facility] REPOSITORY [facility] Medical Records Department [address] [place] [id number] Instructions for Home/Discharge Instructions 11/21/172052 MR#: [id number] Acct: [id number] Name: MARLI ROSALES Rep #: [id number] : 1935 81 From: Kiel Son MD PCP: Roma Grajeda DO Status: ADM IN - Discharge Diagnoses Current Active Problems: Current Active and Chronic Problems Melena (Acute) Peptic ulcer disease (Chronic) Acute gastritis (Acute) Osteoarthritis of right hip (Chronic) Low back pain (Chronic) Allergic rhinitis (Chronic) Osteoporosis (Chronic) Asthma (Chronic) Insomnia (Chronic) Recurrent UTI (Chronic) Constipation (Chronic) Overactive bladder (Chronic) You will use the following diet at home:: No restrictions, Regular Your food should be the consistency of: Regular Your liquids should be the consistency of: Regular/Thin Discharge Activity: Return to Normal Activity, May Shower, Use Walker May resume sexual activity in: No Restrictions Weight Bearing Status: Weight bearing as tolerated Call your doctor if you observe: Fever of 101 or Higher, Inability to urinate, Inability to have a bowel movement, Shortness of breath, Chest pain, Uncontrolled pain Allergies/Adverse Reactions: Allergies grass pollen-perennial rye, standar [grass poll-perennial rye,std] Allergy (Verified 10/23/17 11:11) sinus pressure gluten Adverse Reaction (Verified 11/09/17 13:52) Food Allergy lactose Adverse Reaction (Verified 11/09/17 13:52) Food Allergy DUST Allergy (Uncoded 10/23/17 11:11) sinus pressure MOLD Allergy (Uncoded 10/23/17 11:11) SINUS PRESSURE Medications to take at Discharge Amlodipine [Norvasc] 5 mg PO DAILY 12/31/14 Gabapentin [Neurontin] 300 mg PO TID 12/31/14 Levothyroxine [Synthroid] 50 mcg PO DAILY 12/31/14 Lisinopril [Zestril] 20 mg PO DAILY 12/31/14 Trazodone HCl [Desyrel] 50 mg PO QHS 12/31/14 Ascorbic Acid [Vitamin C] 1,000 mg PO QHS 03/23/16 Methenamine Mandelate 1 gm PO QHS 03/23/16 Guaifenesin [Mucinex] 600 mg PO BID PRN PRN 08/25/16 Polyethylene Glycol 3350 [Miralax] 17 gm PO DAILY 08/25/16 Alendronate Sodium [Fosamax] 70 mg PO FR 03/09/17 Cetirizine HCl [Zyrtec] 10 mg PO PRN PRN 03/09/17 Fluticasone 0.05% [Flonase Nasal Dumont] 2 spray NASAL QHS 03/09/17 Bio X4 1 cap PO PRN PRN 10/23/17 Cholecalciferol (Vitamin D3) [Vitamin D3] 5,000 unit PO DAILY 10/23/17 Docusate Sodium [Stool Softener] 100 mg PO QHS 10/23/17 Esomeprazole Magnesium [Nexium 24Hr] 20 mg PO PRN PRN 10/23/17 Ferrous Sulfate 325 mg PO DAILY@0800 10/23/17 Hyoscyamine Sulfate 0.125 mg SL PRN PRN 10/23/17 Linaclotide [Linzess] 72 mcg PO DAILY 10/23/17 Mirabegron [Myrbetriq] 25 mg PO DAILY 10/23/17 Simethicone [Gas Relief] 125 mg PO PRN PRN 10/23/17 Oxycodone [Oxyir] 5 - 10 mg PO Q4H PRN PRN 7 Days #60 tablet 11/08/17 Acetaminophen [Tylenol] 1,000 mg PO Q8 11/13/17 Melatonin 10 mg PO QHS #30 tab 11/21/17 Pantoprazole Sodium [Protonix] 40 mg PO BID #60 tab 11/21/17 Potassium Chloride [K-Dur] 20 meq PO DAILYCM #30 tab 11/21/17 The following prescriptions were given: Melatonin 10 mg PO QHS #30 tab Potassium Chloride [K-Dur] 20 meq PO DAILYCM #30 tab Pantoprazole Sodium [Protonix] 40 mg PO BID #60 tab Primary Care Physician: Roma Grajeda DO [Primary Care Provider] - Please follow up with your Primary Care Physician in: 1 week. Please Follow Up With: Dr Huynh When: 2 weeks. Please Follow Up With: Dr Sera Blankenship When: 2 weeks. Proposed Discharge Date: 11/22/17 11/21/172055 <Electronically signed by Kiel Son MD> Date Kiel Son MD CC: Roma Grajeda DO CBC W/DIFF, AUTOMATED Collected: 11/21/2017 Status: F Source: [place] 5:54 AM [facility] REPOSITORY TYPE CODE TESTS RESULT OUT OF RANGE REFERENCE UNITS LAB L100.1000 4.4-11.0 K/mm3 Normal WBC 8.3 LAB L100.1200 4.2-5.4 M/mm3 Low RBC 4.12 LAB L100.1300 12.0-15.0 g/dl Normal HGB 12.3 LAB L100.1400 37-47 % Normal HCT 39.2 LAB L100.1500 81-99 fL Normal MCV 95.1 LAB L100.1600 27.0-32.0 pg Normal MCH 29.9 LAB L100.1700 32-36 g/gl Low MCHC 31.4 LAB L100.1810 11.6-14.6 % Normal RDW CV 14.0 LAB L100.1820 35.1-43.9 fl High RDW SD 48.6 LAB L100.1900 150-450 K/mm3 Normal PLT 362 LAB L100.2000 6.2-12.0 fl Normal MPV 8.9 LAB L100.2100 47-70 % High NEUT% 74.5 LAB L100.2200 19-41 % Low LY% 11.8 LAB L100.2300 0-10 % Normal MONO% 7.9 LAB L100.2400 0-5 % Normal EO% 5.0 LAB L100.2500 0-1 % Normal BASO% 0.7 LAB L100.2550 0.0-0.9 % Normal IM GRAN % 0.100 Result Comment: IG% - Immature Granulocytes (promyelocytes, myelocytes and metamyelocytes) > 1% indicates that a LEFT SHIFT is Present. LAB L100.2620 2.0-7.7 X10 3/uL Normal Absolute Neut 6.2 LAB L100.2720 0.83-4.51 X10 3/ul Normal Absolute Lymph 0.98 Performed By: #### L100.0100 #### [facility] [address] [place] [address]. [place], [place], [address] BASIC METABOLIC Collected: 11/21/2017 Status: F Source: [place] PROFILE ([place]) 5:54 AM [facility] REPOSITORY TYPE CODE TESTS RESULT OUT OF RANGE REFERENCE UNITS LAB L501.0100 74-106 mg/dL Normal GLU 82 Result Comment: Please note revised GLUCOSE reference range effective 2017. LAB L501.1000 7-18 mg/dL Normal BUN 15 LAB L501.1100 0.55-1.02 mg/dL Normal CREAT,SERUM 0.64 Result Comment: The validity of the calculated GFR AND GFRAA in patients over 70 years has not been determined. Clinical correlation is essential. LAB L501.1110 >60 mL/min Normal EST GFR 94 Result Comment: Non- GFR Calc LAB L501.1115 >60 mL/min Normal EST GFR - AA 114 Result Comment: GFR Calc LAB L501.1255 ml/min Normal Estimated CRCL 47.42 LAB L501.1300 10-20 RATIO High BUN/CRE 23.3 LAB L501.2200 8.5-10 mg/dL Low .1 CA 8.3 LAB L501.5300 136-14 mmol/L Normal 5 NA 136 LAB L501.5600 3.5-5. mmol/L Normal 1 K 4.3 LAB L501.5900 98-107 mmol/L Normal CL 104 LAB L501.6100 21.0-3 mmol/L Normal 2.0 CO2 23.0 LAB L501.6200 5-15 Normal GAP 9 Performed By: #### L500.2500 #### [facility] [address] [place], [address] URINALYSIS, COMPLETE Collected: 11/20/2017 Status: F Source: [place] 10:00 AM [facility] REPOSITORY Order Comment: How was Urine Obtained? BLADDER TAP TYPE CODE TESTS RESULT OUT OF RANGE REFERENCE UNITS LAB L400.3000 Yellow COLOR Normal Yellow LAB L400.3050 Clear Normal CLARITY Sl. Cloudy LAB L400.3200 Normal mg/dl Normal GLUCOSE, UR Normal LAB L400.3300 Negative mg/dL Normal BILIRUBIN URINE Negative LAB L400.3400 Negative mg/dl High 5 KETONE UR LAB L400.3465 1.002-1.030 Normal SP.GR. DIPSTX 1.010 LAB L400.3550 5.0 - 8.0 pH UR Normal 6.5 LAB L400.3600 Negative mg/dl High PROT DIPSTX 100 LAB L400.3700 Normal mg/dl Normal UROBILI Normal LAB L400.3750 Negative Normal NITRITE UR Negative LAB L400.3780 Negative /ul High 50 OCCULT BLOOD-UR LAB L400.3800 Negative /ul High LEUK ESTERASE 100 LAB L400.4050 0-5 /hpf WBC Normal 5-10 SEEN LAB L400.4100 0-5 /hpf Normal RBC-UA 0-5 SEEN LAB L400.4150 5-10 /hpf SQUAM Normal EPI 0-5 SEEN LAB L400.4300 None Seen /hpf Normal BACTERIA RARE LAB L400.4350 <or=2+ /hpf 1+ Normal MUCUS, URINE Performed By: #### L400.0001 #### [facility] [address] [place], [address] Observed: 11/20/2017 Status: F Source: [place] CULTURE, URINE 10:00 AM [facility] REPOSITORY Comments: straight cath Urine Culture Culture exhibits no growth. Performed By: #### M100.0650 #### [facility] [address] [place], [address] PROGRESS Observed: 11/17/2017 Status: COMPLETED Source: [place] 1:22 PM [facility] REPOSITORY HNO ID: [id number] Author: Lv Trejo Service: (none) Author Type: Physician Type: Progress Notes Filed: 11/17/2017 1:28 PM Note Text: OPERATIVE NOTATION FOR [facility] SURGICAL PROCEDURE. November 12, 2017 Marli Rosales 1935 [id number] female PROCEDURE: EGD WITH BIOPSY - 32160-146 SURGEON: Radha Trejo M.D. FACS SOIL SCIENTIST: None DEPT: WQ PROVIDER: [id number] Trejo MD POS: [id number]=[id number] DIAGNOSIS: (K92.2) Acute GI bleeding (primary encounter diagnosis) ASA CLASS: 3 - Severe FINDINGS: COMPLICATIONS: None PMHx - PAST MEDICAL HISTORY Diagnosis Date - Diverticulitis - Hard of hearing bilateral hearing aides - Hiatal hernia - HTN (hypertension) - Hypothyroid - Osteoporosis - PMH - PAST MEDICAL HISTORY OF Spastic Bowel COMORBIDITIES - CAD, HTN and AR Post Op Occurrences - None Wound Classification - Clean Contaminated Operative note dictated in the [facility] dictation system. Lv Trejo MD BASIC METABOLIC Collected: 11/16/2017 Status: F Source: [place] PROFILE (BMP) 5:10 AM [facility] REPOSITORY TYPE CODE TESTS RESULT OUT OF RANGE REFERENCE UNITS LAB L501.0100 74-106 mg/dL Normal GLU 88 Result Comment: Please note revised GLUCOSE reference range effective 2017. LAB L501.1000 7-18 mg/dL Normal BUN 15 LAB L501.1100 0.55-1.02 mg/dL Normal CREAT,SERUM 0.57 Result Comment: The validity of the calculated GFR AND GFRAA in patients over 70 years has not been determined. Clinical correlation is essential. LAB L501.1110 >60 mL/min Normal EST GFR 107 Result Comment: Non- GFR Calc LAB L501.1115 >60 mL/min Normal EST GFR - AA 130 Result Comment: GFR Calc LAB L501.1255 ml/min Normal Estimated CRCL 47.10 LAB L501.1300 10-20 RATIO High BUN/CRE 26.1 LAB L501.2200 8.5-10 mg/dL Low .1 CA 8.4 LAB L501.5300 136-14 mmol/L Normal 5 NA 138 LAB L501.5600 3.5-5. mmol/L Normal 1 K 4.1 LAB L501.5900 98-107 mmol/L Normal CL 104 LAB L501.6100 21.0-3 mmol/L Normal 2.0 CO2 26.0 LAB L501.6200 5-15 Normal GAP 8 Performed By: #### L500.2500 #### [facility] [address] [place], [address] CBC W/DIFF, AUTOMATED Collected: 11/14/2017 Status: F Source: [place] 5:10 AM [facility] REPOSITORY TYPE CODE TESTS RESULT OUT OF RANGE REFERENCE UNITS LAB L100.1000 4.4-11.0 K/mm3 Normal WBC 5.8 LAB L100.1200 4.2-5.4 M/mm3 Normal RBC 4.31 LAB L100.1300 12.0-15.0 g/dl Normal HGB 13.1 LAB L100.1400 37-47 % Normal HCT 39.8 LAB L100.1500 81-99 fL Normal MCV 92.3 LAB L100.1600 27.0-32.0 pg Normal MCH 30.4 LAB L100.1700 32-36 g/gl Normal MCHC 32.9 LAB L100.1810 11.6-14.6 % Normal RDW CV 14.5 LAB L100.1820 35.1-43.9 fl High RDW SD 47.6 LAB L100.1900 150-450 K/mm3 Normal PLT 274 LAB L100.2000 6.2-12.0 fl Normal MPV 9.5 LAB L100.2100 47-70 % Normal NEUT% 58.5 LAB L100.2200 19-41 % Low LY% 17.0 LAB L100.2300 0-10 % High MONO% 17.5 LAB L100.2400 0-5 % High EO% 5.8 LAB L100.2500 0-1 % Normal BASO% 0.7 LAB L100.2550 0.0-0.9 % Normal IM GRAN % 0.500 Result Comment: IG% - Immature Granulocytes (promyelocytes, myelocytes and metamyelocytes) > 1% indicates that a LEFT SHIFT is Present. LAB L100.2620 2.0-7.7 X10 3/uL Normal Absolute Neut 3.4 LAB L100.2720 0.83-4.51 X10 3/ul Normal Absolute Lymph 0.99 Performed By: #### L100.0100 #### [facility] [address] [place], [address] BASIC METABOLIC Collected: 11/14/2017 Status: F Source: [place] PROFILE (BMP) 5:10 AM [facility] REPOSITORY TYPE CODE TESTS RESULT OUT OF RANGE REFERENCE UNITS LAB L501.0100 74-106 mg/dL Normal GLU 91 LAB L501.1000 7-18 mg/dL Normal BUN 14 LAB L501.1100 0.55-1.02 mg/dL Normal 0.60 CREAT,SERUM Result Comment: The validity of the calculated GFR AND GFRAA in patients over 70 years has not been determined. Clinical correlation is essential. LAB L501.1110 >60 mL/min Normal EST GFR 101 Result Comment: Non- GFR Calc LAB L501.1115 >60 mL/min Normal EST GFR - AA 123 Result Comment: GFR Calc LAB L501.1255 ml/min Normal Estimated CRCL 47.10 LAB L501.1300 10-20 RATIO High BUN/CRE 23.2 LAB L501.2200 8.5-10 mg/dL Low .1 CA 8.3 LAB L501.5300 136-14 mmol/L Normal 5 NA 139 LAB L501.5600 3.5-5. mmol/L Low 1 K 3.3 LAB L501.5900 98-107 mmol/L Normal CL 105 LAB L501.6100 21.0-3 mmol/L Normal 2.0 CO2 25.0 LAB L501.6200 5-15 Normal GAP 9 Performed By: #### L500.2500 #### [facility] [address] [place] [place], [address] HISTORY AND PHYSICAL Observed: 11/13/2017 Status: F Source: [place] EXAM 9:36 PM [facility] REPOSITORY [facility] Medical Records Department [address] [place] [address] History and Physical 11/13/17 210 MR#: [id number] Acct: [id number] Name: MARLI ROSALES Rep #: [id number] : 1935 81 From: Kiel Son MD PCP: Roma Grajeda DO Status: ADM IN Location: [place] [address] Problem List (1) Melena Status: Acute (2) Peptic ulcer disease Status: Chronic (3) Acute gastritis Status: Acute (4) Osteoarthritis of right hip Status: Chronic (5) Low back pain Status: Chronic (6) Allergic rhinitis Status: Chronic (7) Osteoporosis Status: Chronic (8) Asthma Status: Chronic (9) Insomnia Status: Chronic (10) Recurrent UTI Status: Chronic (11) Constipation Status: Chronic (12) Overactive bladder Status: Chronic (13) Hyponatremia Status: Acute (14) Fall Status: Acute Comment: no LOC, lost balance (15) Urinary tract infection Status: Suspected (16) Anemia due to blood loss Status: Acute (17) Dehydration Status: Acute (18) Acute kidney injury Status: Acute (19) Hypothyroidism Status: Chronic (20) Hypertension Status: Chronic History of Present Illness Date of Admission: 11/13/17 Chief Complaint: Here for rehabilitation, strengthening, prior to discharge home with spouse. The patient is a 81 year old Female with below past medical history presented to [facility] Emergency Department 11/09/2017 with fall, weakness, recent hip surgery. 11/09/2017 Chest X-ray, stable cardiomegaly with diffuse interstitial pattern. 11/09/2017 EKG normal sinus rhythm, normal EKG. Fall in AM. Right total hip arthroplasty 2 days ago, blood pressure low per squad. Weak, tired, since surgery. unable to care for patient at home. Takes gabapentin, tramadol for chronic low back pain. Hemoglobin 8.8, UA > 100 WBC. IV fluids given, Rocephin 1GM IV given. 11/09/2017 Admit to Hospital. Aspirin 325MG twice daily for DVT prophylaxis, history of peptic ulcer disease, patient noted black tarry stools. Patient on gabapentin, tramadol, oxycodone, trazodone which maybe complicating her presentation. X-ray pelvis, hip to look for fracture, misalignment. Normal Saline 2 liters IV given, cut back Gabapentin dose. Stool guaiac, Protonix drip for melena. Transfused 3 units packed red blood cells for anemia secondary to blood loss. 11/09/2017 X-ray pelvis showed status post right hip replacement, no fracture, no misalignment. 11/12/2017 Dr. Trejo performed EGD showed mild gastritis, duodenitis, small gastric AVM, small hiatal hernia, mild distal esophagitis. Transfused 3 units packed red blood cells for anemia. PPI BID, off aspirin for gastritis. Oxycodone for pain, Tramadol, Cabool stopped. Acute kidney injury resolved with IV fluid hydration. 11/13/2017 Admit to TCU for rehabilitation, strengthening, prior to discharge home with spouse. Past Medical History Past Medical History (Chronic Problems): Chronic Problems Peptic ulcer disease (Chronic) Osteoarthritis of right hip (Chronic) Low back pain (Chronic) Allergic rhinitis (Chronic) Osteoporosis (Chronic) Asthma (Chronic) Insomnia (Chronic) Recurrent UTI (Chronic) Constipation (Chronic) Overactive bladder (Chronic) History of peptic ulcer disease (Chronic) Hypothyroidism (Chronic) Hypertension (Chronic) Allergies grass pollen-perennial rye, standar [grass poll-perennial rye,std] Allergy (Verified 10/23/17 11:11) sinus pressure gluten Adverse Reaction (Verified 11/09/17 13:52) Food Allergy lactose Adverse Reaction (Verified 11/09/17 13:52) Food Allergy DUST Allergy (Uncoded 10/23/17 11:11) sinus pressure MOLD Allergy (Uncoded 10/23/17 11:11) SINUS PRESSURE Home Medications: Ambulatory Orders Medication Instructions Recorded Amlodipine [Norvasc] 5 mg PO DAILY 12/31/14 Gabapentin [Neurontin] 300 mg PO TID 12/31/14 Levothyroxine [Synthroid] 50 mcg PO DAILY 12/31/14 Lisinopril [Zestril] 20 mg PO DAILY 12/31/14 Surgical History: cholecystectomy, total hip arthroplasty - Right, 11/07/[address] Huynh., - - both shoulders,back knee and shoulders,eye surgeries, right knee surgery. Psychiatric History: No pertinent psych hx SOLE RUFFER History: No pertinent SOLE RUFFER history Lives: Spouse/ Significant Other Smoking Status: Never smoker Tobacco Use: Non-smoker Alcohol: None Drugs: None - *Family History Maternal History Items: - - bowel cancer Paternal History Items: - - chronic lung disease Review of Systems Constitutional: Denies: Chills, Fever, Weight Change HEENT: Denies: Head Aches, Sinus Congestion, Sinus Drainage Cardiovascular: Denies: Chest Pain, Palpitations Respiratory: Denies: Cough, Shortness of breath at rest, Sputum production Gastrointestinal: Denies: Abdominal Pain, Nausea, Vomiting Genitourinary: Denies: Dysuria Musculoskeletal: Denies: Joint Pain, Joint Tenderness Skin: Denies: Rash, Wounds Neurological: Denies: Numbness, Tingling, Focal weakness Psychiatric: Denies: Anxiety, Depression, Homicidal Ideations, Suicidal Ideations Hematologic/ Lymphatic: Denies: Easy Bruising, Easy Bleeding VTE Information - Inpt Only VTE Present on Admission: No VTE Mechan Device Prophylaxis: Knee High RITESH Hose VTE Pharm Prophylaxis ordered?: No Reason prophylaxis not ordered:: Medical Contraindication Patient Problems: Active and Suspected Problems Melena (Acute) Acute gastritis (Acute) - Physical Exam General: Alert, Oriented x3, Cooperative HEENT: Atraumatic, PERRLA, EOMI, Normocephalic Neck: Supple, No JVD, Negative Carotid Bruits Lungs: Clear to auscultation, Normal air movement Cardiovascular: Regular rate, No murmurs Abdomen: Bowel Sounds Present, Soft, Non Tender Extremities: No edema, Capillary Refill Less than 3 Seconds Skin: No rashes, No breakdown Musculoskeletal: No Tenderness to Palpation of Joints or Extremities Neurological: Cranial nerves II-XII grossly intact Psych/Mental Status: Normal Affect, Appropriate Vital Signs BP 152/77 H 11/13/17 12:00 Oxygen Delivery Method Room Air Weight: 66.5 kg Body Mass Index (BMI) 29.6 Assessment/Plan Active and Suspected Problems Melena (Acute) Acute gastritis (Acute) 81 year old female with below past medical history hospitalized for fall secondary to anemia from acute gastritis requiring blood transfusion, complicated by acute kidney injury from dehydration, side effects from medications, admitted to TCU for debility, for rehabilitation, strengthening, prior to discharge home with spouse. * Debility - PT/OT. * Pain - Tylenol 1000MG Q8H, Oxycodone 5-10MG Q4H PRN moderate to severe pain. * Bowel - Miralax 17GM daily, Senna/colace 2 tablets BID, Dulcolax 10MG PO daily PRN. * Pneumonia vaccination - Administer Prevnar 13 and/or Pneumovax 23 as necessary. * DVT prophylaxis - Relatively contraindicated due to recent upper GI bleed. * Osteoporosis - Fosamax 70MG per week, Vitamin D3 5000IU daily. * Insomnia - Trazodone 50MG QHS, Melatonin 10MG QHS. * Hypertension - Lisinopril 20MG daily, Amlodipine 5MG daily. * Recurrent UTI - Methenamine 1000MG QHS, Vitamin C 1000MG QHS. * Iron deficiency anemia - status post 3 units PRBC transfusion, ferrous sulfate 325MG daily. * Allergic rhinitis - Flonase 2 sprays QHS, Loratadine 10MG daily PRN. * Neuropathic pain - Gabapentin 300MG TID. * Congestion - Mucinex 600MG BID PRN. * IBS - Levsin 0.125MG SL PRN bowel spasm. * Hypothyroidism - Levothyroxine 50MCG daily. * OAB - Myrbetriq 25MG daily. * GERD - Pantoprazole 40MG BID, repeat EGD with Dr. Trejo in 4 weeks. * Gas - Simethicone 120MG 4x/day PRN. 11/13/172127 <Electronically signed by Kiel Son MD> Date Kiel Son MD Cosigner Signature: Date (if applicable) CC: Roma Grajeda DO; Kiel Son MD Signed DISCHARGE SUMMARY Observed: 11/13/2017 Status: F Source: [place] 6:07 PM [facility] REPOSITORY [facility] Medical Records Department [address] [place] [address] Discharge Summary 11/13/17 1355 MR#: [id number] Acct: [id number] Name: MARLI ROSALES Rep #: [id number] : 1935 81 From: Dacia Correa MD PCP: Roma Grajeda DO Status: DIS IN Y Location: [facility]3 [id number] Discharge Date and Diagnosis Date of Admission: 11/09/17 Date of Discharge: 11/13/17 - Primary Discharge Diagnosis Active and Suspected Problems Acute gastritis Acute duodenitis Distal esophagitis Status post total hip replacement, right (Acute) 11/07/[address] Huynh Urinary tract infection (Suspected) Fall (Acute) no LOC, lost balance Hyponatremia (Acute) Acute kidney injury (Acute) Dehydration (Acute) Anemia due to blood loss (Acute) - Secondary Discharge Diagnosis Chronic Problems History of peptic ulcer disease (Chronic) Hypothyroidism (Chronic) Hypertension (Chronic) Hospital Course and Treatment Imaging Results: Clinical Impression(s) from Imaging Studies Chest X-Ray 11/09/17 10:31 IMPRESSION: Stable cardiomegaly with diffuse interstitial pattern. No acute pathology. Electronically Signed: Viet Gimenez MD at 10:58 EST , Service support , Pelvis X-Ray 11/09/17 20:07 IMPRESSION: Status post right total knee replacement with postsurgical changes in the adjacent soft tissue. No acute bony injury.. Electronically Signed: Ray Carballo DO at 20:26 EST Tel [phone], Service support , General surgery - Dr. Trejo Operations: None Procedures: EGD Summary of Care Provided: 81 year old F with a past medical history of peptic ulcer disease, hypertension, hypothyroidism, osteoarthritis, chronic back pain, on gabapentin 300 tid, osteoporosis and asthma recently discharged from the hospital on 11/08/17 after a right total hip replacement done by Dr. Huynh on 11/07/2017. She was admitted after a fall, could not get up, paramedics were called, BP was low, had black tarry stools. 1. Acute anemia secondary acute GI bleed, s/p 3 pRBC, Hb is stable at 12.7 on discharge. 2. Acute GI bleed, s/p EGD which showed acute distal esophagitis, gastritis and duodenitis, on PPI BID, will follow-up with Dr. Trejo for biopsy report in a week and also for repeat EGD in 1 month. Off aspirin. 3. Right THR on 11/07/17, pain is controlled on oxycodone, continue with PT/OT. Stopped tramadol and norco on discharge 4. Acute kidney injury-secondary to dehydration - resolved 5. Hypertension, controlled, on Lisinopril 6. Hypothyroidism, on levothyroxine po 7. Chronic back pain on gabapentin 8. Osteoporosis, on alendronate weekly, need to be careful with findings of distal esophagitis. Patient encouraged to drink lots of water. 9. Asthma, on prn inhalers 10. DVT PPx with early ambulation and SCDs - on account of GI bleed. Discharge Diet: No Restrictions Discharge Activity: Return to Normal Activity Home Medications: Medications to take at Discharge Amlodipine [Norvasc] 5 mg PO DAILY 12/31/14 Gabapentin [Neurontin] 300 mg PO TID 12/31/14 Levothyroxine [Synthroid] 50 mcg PO DAILY 12/31/14 Lisinopril [Zestril] 20 mg PO DAILY 12/31/14 Trazodone HCl [Desyrel] 50 mg PO QHS 12/31/14 Ascorbic Acid [Vitamin C] 1,000 mg PO QHS 03/23/16 Methenamine Mandelate 1 gm PO QHS 03/23/16 Guaifenesin [Mucinex] 600 mg PO BID PRN PRN 08/25/16 Polyethylene Glycol 3350 [Miralax] 17 gm PO DAILY 08/25/16 Alendronate Sodium [Fosamax] 70 mg PO FR 03/09/17 Cetirizine HCl [Zyrtec] 10 mg PO PRN PRN 03/09/17 Fluticasone 0.05% [Flonase Nasal [place]] 2 spray NASAL QHS 03/09/17 Bio X4 1 cap PO PRN PRN 10/23/17 Cholecalciferol (Vitamin D3) [Vitamin D3] 5,000 unit PO DAILY 10/23/17 Docusate Sodium [Stool Softener] 100 mg PO QHS 10/23/17 Esomeprazole Magnesium [Nexium 24Hr] 20 mg PO PRN PRN 10/23/17 Ferrous Sulfate 325 mg PO DAILY@0800 10/23/17 Hyoscyamine Sulfate 0.125 mg SL PRN PRN 10/23/17 Linaclotide [Linzess] 72 mcg PO DAILY 10/23/17 Mirabegron [Myrbetriq] 25 mg PO DAILY 10/23/17 Simethicone [Gas Relief] 125 mg PO PRN PRN 10/23/17 Oxycodone [Oxyir] 5 - 10 mg PO Q4H PRN PRN 7 Days #60 tablet 11/08/17 Amitriptyline HCl [Elavil] 25 mg PO QHS PRN 11/12/17 Hydrocodone/Acetaminophen [Cabool 5-325 Tablet] 1 tab PO 11/12/17 Acetaminophen [Tylenol] 1,000 mg PO Q8 11/13/17 Doxycycline 100 mg PO BID 11/13/17 Pantoprazole Sodium [Protonix] 40 mg PO BID tablet 11/13/17 Primary Care Physician: Roma Grajeda DO [Primary Care Provider] - Please follow up with your Primary Care Physician in: within 2 weeks of discharge from ECF Please Follow Up With: Lv Trejo MD When: within 4 weeks Disposition: [facility] facility Minutes spent on discharge:: 25 Patient Condition:: Stable Meaningful Use Info Meaningful Use Diagnoses (Choose all that apply): None applicable Code Visit Inpatient E AND M: 60405 Disch Hosp 11/13/17 1807 <Electronically signed by Dacia Correa MD> Date Dacia Correa MD Cosigner Signature (if applicable): Date CC: Dacia Correa MD; Roma Grajeda DO Signed [facility]SF[facility] Observed: 11/13/2017 Status: F Source: [facility] 1:55 PM [facility] REPOSITORY [facility] Medical Records Department [address] [place] [address] Transfer to Extended Care MR#: [id number] Acct: [id number] Name: MARLI ROSALES Rep #: [id number] : 1935 81 From: Dacia Correa MD PCP: Roma Grajeda DO Status: ADM IN MARLI ROSALES (Patient) (Health Ins. Claim No.) (Day of Discharge to Facility) Certification of patient admission REQUIRED AT TIME OF ADMISSION. I CERTIFY THAT POST-HOSPITAL ECF SERVICES ARE REQUIRED TO BE GIVEN ON AN IN-PATIENT BASIS BECAUSE OF THE ABOVE NAMED PATIENT'S NEED FOR HALF-WAY CARE ON A CONTINUING BASIS FOR THE CONDITION(S) FOR WHICH HE/SHE WAS RECEIVING IN-PATIENT HOSPITAL SERVICES PRIOR TO HIS/HER TRANSFER TO THE ECF. 11/13/17 6414 <Electronically signed by Dacia Correa MD> Date Dacia Correa MD - Diet 11/12/17 17:34 Diet: Regular Diet Is pt able to select menu?: Yes Diet Comments: gluten-free, lactose-free - Routine Orders/Code Status Routine Lab Work: CBC - in 3 days, BMP - in 3 days Code Status: Full Code - Wound(s) right anterior hip Wound Type: Surgical Incision - Therapies Physical Therapy: Eval and Treat Occupational Therapy: Eval and Treat - Allergies/Procedures Done in Hospital Allergies/Adverse Reactions: Allergies grass pollen-perennial rye, standar [grass poll-perennial rye,std] Allergy (Verified 10/23/17 11:11) sinus pressure gluten Adverse Reaction (Verified 11/09/17 13:52) Food Allergy lactose Adverse Reaction (Verified 11/09/17 13:52) Food Allergy DUST Allergy (Uncoded 10/23/17 11:11) sinus pressure MOLD Allergy (Uncoded 10/23/17 11:11) SINUS PRESSURE Procedures: EGD - Type of Care/Length of Stay Estimated LOS: Convalescent Care Less Than 30 days Type of Care Needed: Skilled Rehab Potential: Good Prognosis: Good - Additional Orders/Day of Discharge Day of Discharge: 11/13/17 - Dietary and Speech Recommendations Dietitian Recommendations/Changes: Rec adv diet as tolerated to regular, no gastric stimulant- gluten free and lactose free. - Follow Up Care Primary Care Physician: Roma Grajeda DO [Primary Care Provider] - Please follow up with your Primary Care Physician in: within 2 weeks of discharge from [facility] Please Follow Up With: Lv Trejo MD When: within 4 weeks 11/13/17 1355 <Electronically signed by Dacia Correa MD> Date Dacia Correa MD CC: Roma Grajeda DO; Lv Trejo MD; Ayla Lagunas MD Signed OPERATIVE REPORT Observed: 11/12/2017 Status: F Source: [place] 5:57 PM [facility] REPOSITORY [facility] Medical Records Department [address] [place] [address] Operative Report 11/12/17 1514 MR#: [id number] Acct: [id number] Name: MARLI ROSALES Rep #: [id number] : 1935 81 From: Lv Trejo MD PCP: Roma Grajeda DO Status: ADM IN Location: [place] [address] Problem List (1) Anemia due to blood loss Status: Acute Report of Operation Date of Procedure: 11/12/17 Pre-Operative Diagnosis: GI BLEED Post-Operative Diagnosis: MILD GASTRITIS, DUODENITIS, NO OBVIOUS ULCERS, SMALL AVM BODY OF STOMACH, SMALL HIATAL HERNIA, MILD DISTAL ESOPHAGITIS Surgery/Procedure Performed:: EGD WITH BIOPSY educational programming director: None Type of Anesthesia:: MAC Anesthesiologist: Pato Can - ASA3 Specimen's removed: GASTRIC Description of Procedure: The patient was brought to the endoscopy suite. Sign in was performed verifying patient, site, planned procedure, critical nursing information, the patient was monitored with cardiac, pulse oximetric, and blood pressure monitoring devices. Monitored anesthetic care was provided for sedation. Following IV sedation and after the oropharynx was sprayed with Cetacaine spray, a video gastroscope was inserted in the oropharynx and advanced down the esophagus without difficulty. The scope was advanced through the stomach, through the pylorus through the duodenum to the proximal jejunum. the jejunum appeared unremarkable. No biopsies were obtained currently. There was snyder bile in the duodenum with no signs of hemobilia. The duodenum demonstrated a degree of duodenitis. There was relatively mild. The antral region demonstrated mild gastritis. There were no signs of ulcerations in the stomach or the duodenum. Biopsies obtained from the antral region for H. pylori and pathology. Along the greater curvature of the stomach. There was an area that appeared to be a small AVM. This did not seem to have any signs of bleeding. The patient had a small hiatal hernia with some irritation at the diaphragmatic hiatus, but again no signs of severe ulceration. The distal esophagus demonstrated was felt to be some reflux esophagitis. The remainder the esophagus was unremarkable. The patient tolerated the procedure well and was brought to recovery in stable condition. at this point in time, I recommend the patient maintained on proton pump inhibitors. If she has further bleeding episodes, I would recommend a bleeding scan. Dr. Ortega done a colonoscopy on recall 2 years previously. Since the patient had recent hip surgery. I feel would be a challenge to try to perform a bowel prep so I do not recommend colonoscopy at this time. I would recommend repeat upper endoscopy in approximately one month to assure she has complete healing of the gastric area to assess this AVM area again and given a questionable history of celiac, I would recommend jejunal and distal esophageal biopsies at that time. 11/12/17 5967 <Electronically signed by Lv Trejo MD> Date Lv Trejo MD CC: Roma Grajeda DO; Lv Trejo MD; Ayla Lagunas MD Signed 12 LEAD ELECTROCARDIOGRAM Observed: 11/12/2017 Status: F Source: [place] 3:31 PM [facility] REPOSITORY [facility] Cardiovascular Services [address] [place] [address] 12 Lead EKG 11/09/17 1043 MR#: [id number] Acct: [id number] Name: MARLI ROSALES #: [id number] : 1935 81 From: Akhil Carlson MD Attending Dr: Dacia Correa MD Status: ADM IN Ordering Dr: Akshat Zuniga MD Date: 11/09/17 Location: MS3 Sex: F C Admitted: 11/09/17 Test Reason : WEAKNESS Blood Pressure : / mmHG Vent. Rate : 070 BPM Atrial Rate : 070 BPM P-R Int : 158 ms QRS Dur : 086 ms QT Int : 390 ms P-R-T Axes : 051 -17 014 degrees QTc Int : 421 ms Normal sinus rhythm Normal ECG Confirmed by AKHIL CARLSON MD ([id number]), proposal editor VINCENT SCHAEFFER ([id number]) on 11/12/2017 3:30:43 PM Referred By: RADHA Confirmed By:AKHIL CARLSON MD 11/12/17 1530 Date Akhil Carlson MD CC: Roma Grajeda DO Signed EGD ([facility] SITE) Observed: 11/12/2017 Status: F Source: [place] 3:00 PM [facility] REPOSITORY Patient: MARLI ROSALES : 1935 (81/F) Acct Num: [id number] Phys: Dacia Correa MD Unit Num: [id number] Loc: MI3 [id number] Specimen: [id number] Received: 11/12/17 955 Spec Type: EGD BIOPSY TISSUES TISSUES: Gastric mucous membrane COMMENT The results of immunohistochemistry for Helicobacter pylori will be reported separately ([id number]). GROSS DESCRIPTION Received in fixative is one container labeled with the patient's name and designated antral biopsy. The specimen consists of multiple irregular fragments of light carpio soft tissue that in aggregate measure 1 x 0.8 x 0.1 cm. The specimen is totally submitted in one cassette. / ALEX:corwin 11/13/17 TC:3 CPT: 48027 HEADER OPERATION: EGD PRE-OP DIAGNOSIS: Anemia TISSUE SUBMITTED: Antral biopsy MICROSCOPIC DESCRIPTION Slides are reviewed. Sections show small collections and groups of plasma cells in the mucosa. Active inflammation is not present. These findings are consistent with moderate chronic gastritis. MICROSCOPIC DIAGNOSIS Gastric antrum, biopsy: Gastritis. AM:rg 11/14/17 Signed Fermín Harmon 11/14/17 <signature on file> Performed By: #### PEGD #### [facility] [address] [facility] [place], [address] CBC-COMPLETE BLOOD CNT Collected: 11/12/2017 Status: F Source: [place] NO DIFF 5:16 AM [facility] REPOSITORY TYPE CODE TESTS RESULT OUT OF RANGE REFERENCE UNITS LAB L100.1000 4.4-11.0 K/mm3 Normal WBC 5.8 LAB L100.1200 4.2-5.4 M/mm3 Normal RBC 4.24 LAB L100.1300 12.0-15.0 g/dl Normal HGB 12.7 LAB L100.1400 37-47 % Normal HCT 38.5 LAB L100.1500 81-99 fL Normal MCV 90.8 LAB L100.1600 27.0-32.0 pg Normal MCH 30.0 LAB L100.1700 32-36 g/gl Normal MCHC 33.0 LAB L100.1810 11.6-14.6 % High RDW CV 14.9 LAB L100.1820 35.1-43.9 fl High RDW SD 49.7 LAB L100.1900 150-450 K/mm3 Normal PLT 201 LAB L100.2000 6.2-12.0 fl Normal MPV 9.2 Performed By: #### L100.0500 #### [facility] [address] [place], [place], [address] BASIC METABOLIC Collected: 11/12/2017 Status: F Source: [place] PROFILE (BMP) 5:16 AM [facility] REPOSITORY Order Comment: Comments: pre-op TYPE CODE TESTS RESULT OUT OF RANGE REFERENCE UNITS LAB L501.0100 74-106 mg/dL Normal GLU 82 LAB L501.1000 7-18 mg/dL Low BUN 6 LAB L501.1100 0.55-1.02 mg/dL Low 0.50 CREAT,SERUM Result Comment: The validity of the calculated GFR AND GFRAA in patients over 70 years has not been determined. Clinical correlation is essential. LAB L501.1110 >60 mL/min Normal EST GFR 127 Result Comment: Non- GFR Calc LAB L501.1115 >60 mL/min Normal EST GFR - AA 154 Result Comment: GFR Calc LAB L501.1255 ml/min Normal Estimated CRCL 47.55 LAB L501.1300 10-20 RATIO Normal BUN/CRE 12.1 LAB L501.2200 8.5-10 mg/dL Low .1 CA 8.4 LAB L501.5300 136-14 mmol/L Normal 5 NA 138 LAB L501.5600 3.5-5. mmol/L Normal 1 K 3.5 LAB L501.5900 98-107 mmol/L Normal CL 107 LAB L501.6100 21.0-3 mmol/L Normal 2.0 CO2 22.0 LAB L501.6200 5-15 Normal GAP 9 Performed By: #### L500.2500, L501.9520 #### [facility] [address] [facility] [place], [place], [id number] THYROID STIM HORMONE Collected: 11/12/2017 Status: F Source: [place] (TSH) 5:16 AM [facility] REPOSITORY Order Comment: Comments: pre-op TYPE CODE TESTS RESULT OUT OF RANGE REFERENCE UNITS LAB L501.9520 0.358-3.74 uIU/mL High TSH 5.54 Performed By: #### L500.2500, L501.9520 #### [facility] [address] [facility] [place], [address] CNOP Observed: 11/12/2017 Status: COMPLETED Source: [place] 12:00 AM [facility] REPOSITORY Operative Note (Enc) (GENSWS) Progress Notes: Lv Trejo MD 11/17/2017 1:28 PM Signed OPERATIVE NOTATION FOR [facility] SURGICAL PROCEDURE. November 12, 2017 Marli Rosales 1935 [id number] female PROCEDURE: EGD WITH BIOPSY - 41102-436 SURGEON: Radha Trejo M.D. FACS SOIL SCIENTIST: None DEPT: WQ PROVIDER: [id number] Trejo MD POS: [id number] DIAGNOSIS: (K92.2) Acute GI bleeding (primary encounter diagnosis) ASA CLASS: 3 - Severe FINDINGS: COMPLICATIONS: None PMHx - PAST MEDICAL HISTORY Diagnosis Date - Diverticulitis - Hard of hearing bilateral hearing aides - Hiatal hernia - HTN (hypertension) - Hypothyroid - Osteoporosis - PMH - PAST MEDICAL HISTORY OF Spastic Bowel COMORBIDITIES - CAD, HTN and AR Post Op Occurrences - None Wound Classification - Clean Contaminated Operative note dictated in the [facility] dictation system. Lv Trejo MD Encounter Status:Closed by LV TREJO MD on 11/17/17 IMMUNOHISTOCHEMISTRY Observed: 11/12/2017 Status: F Source: [place] 12:00 [facility] [place] Patient: MARLI ROSALES : 1935 (81/F) Acct Num: [id number] Phys: Dacia Correa MD Unit Num: [id number] Loc: MS3 [id number] Specimen: [id number] Received: 11/14/17 - 1000 Spec Type: IMMUNO TISSUES TISSUES: Stomach, NOS SPECIMEN INFORMATION: Tissue Source: Antral biopsy Clinical Info: Anemia Specimen Number: [id number] CPT code: 32153 METHODOLOGY: Deparaffinized sections of prefer/formalin-fixed tissue or PAP/DQ stained slides are incubated with monoclonal/polyclonal antibodies/oligonucleotide probes. Localization is made via biotin free immunoperoxidase method. Appropriate controls are performed and reacted as expected. Results on target cell population are indicated in the following table: RESULTS: ANTIBODY / CLONE RESULT H Pylori (polyclonal) negative These tests were developed and their performance characteristics determined by [facility]. They may not have been cleared or approved by the U.S. Food and Drug Administration. The FDA has determined that such clearance or approval is not necessary. INTERPRETATION: Antral biopsy: Negative for Helicobacter pylori organisms. AM:corwin 11/14/17 PHYSICIAN AND INSTITUTION [address] [place] [address] Signed Ferímn Harmon 11/14/17 <signature on file> Performed By: #### PIMM #### [facility] [address] [place] [address]. [place], [address] HISTORY AND PHYSICAL Observed: 11/11/2017 Status: F Source: [place] EXAM 6:52 PM [facility] REPOSITORY [facility] Medical Records Department [address] [place] [address] History and Physical 11/09/171915 MR#: [id number] Acct: [id number] Name: MARLI ROSALES Rep #: [id number] : 1935 81 From: James Gusman DO PCP: Roma Grajeda DO Status: ADM IN Y Location: [facility] [id number] ADDENDUM by Sheila Gusman on 11/11/17 at 1852 Code Visit Inpatient E AND M: 32931 Init Hosp L3 11/11/171851 <Electronically signed by James Gusman DO> Date James Gusman DO cc: Sheila Gusman; Roma Grajeda DO; Barrie Huynh MD * Signed ADDENDUM by Sheila Gusman on 11/09/17 at 2036 Code Visit Had another stool this evening and per nursing it is black and liquid. She has been on ASA 325 BID for DVT prophylaxis and she has a hx of PUD. will type and cross and check a stat HH. she is already on tele. Start a protonix drip. Hemoccult stool now. 11/09/172035 <Electronically signed by James Gusman DO> Date James Gusman DO cc: Sheila Gusman; Roma Grajeda DO; Barrie Huynh MD * Signed Problem List (1) Status post total hip replacement, right Status: Acute Comment: 11/07/[address] Huynh (2) Urinary tract infection Status: Suspected (3) Fall Status: Acute Comment: no LOC, lost balance (4) Hyponatremia Status: Acute (5) Acute kidney injury Status: Acute (6) Dehydration Status: Acute (7) Closed right hip fracture Status: Resolved Comment: March 2017 (8) History of peptic ulcer disease Status: Chronic (9) Hypertension Status: Chronic (10) Hypothyroidism Status: Chronic (11) Anemia due to blood loss Status: Acute History of Present Illness Date of Admission: 11/09/17 Chief Complaint: fall The patient is a 81 year old F with a past medical history of peptic ulcer disease, hypertension, hypothyroidism, osteoarthritis, chronic back pain on gabapentin 300 3 times daily, allergic rhinitis, osteoporosis and asthma per patient who was discharged from the hospital on 11/08/17 after a right total hip replacement done by Dr. Huynh on 11/07/2017. She was discharged home with her . She returned to the emergency room at [facility] on 11/09/2017 at approximately 11 AM after having a fall at home. She was not able to get up and the paramedics were summoned. They felt her blood pressure was low and they brought her to the emergency room. Patient was discharged on oxycodone and she thinks she may have taken Ultram also at home. She is also on gabapentin 300 3 times daily, trazodone 50 nightly, Tikosyn mean as needed in addition to taking the Oxycodone and the Ultram. Vital signs at arrival to the emergency room were temp 97.7, heart rate 76, blood pressure 113/53, respiratory rate 15 and she was 95% saturated on room air. White blood cell count was 7.7 and hemoglobin was 8.8, down from 9.51-118. Platelets were within normal limits. The sodium was low at 133 and the BUN was 32 with a creatinine of 1.11. Creatinine in March 2017 was 0.63. A clean catch urine specimen had greater than 100 WBCs per high power field but she denies dysuria or frequency. She is afebrile and the WBC is WNL. She denies loss of consciousness. She denies dizziness, chest pain, shortness of breath, palpitations. She thinks she took too big a step and lost her balance. EKG in the emergency room was normal. She is being admitted to the hospital with a dx of SKI due to dehydration and fall likely due to orthostasis. I doubt UTI since she is asymptomatic and has a normal WBC count and no fever. Past Medical History Past Medical History (Chronic Problems): Chronic Problems History of peptic ulcer disease (Chronic) Hypothyroidism (Chronic) Hypertension (Chronic) Allergies grass pollen-perennial rye, standar [grass poll-perennial rye,std] Allergy (Verified 10/23/17 11:11) sinus pressure gluten Adverse Reaction (Verified 11/09/17 13:52) Food Allergy lactose Adverse Reaction (Verified 11/09/17 13:52) Food Allergy DUST Allergy (Uncoded 10/23/17 11:11) sinus pressure MOLD Allergy (Uncoded 10/23/17 11:11) SINUS PRESSURE Home Medications: Ambulatory Orders Medication Instructions Recorded Amlodipine [Norvasc] 5 mg PO DAILY 12/31/14 Gabapentin [Neurontin] 300 mg PO TID 12/31/14 Levothyroxine [Synthroid] 50 mcg PO DAILY 12/31/14 Surgical History: cholecystectomy, - - both shoulders,back knee and shoulders,eye surgeries, right knee surgery. Right total hip replacement on 11/07/[address] Huynh. Psychiatric History: No pertinent psych hx SOLE RUFFER History: No pertinent SOLE RUFFER history Lives: Spouse/ Significant Other Smoking Status: Never smoker Tobacco Use: Non-smoker Alcohol: Rare Drugs: None - *Family History Maternal History Items: - - bowel cancer Paternal History Items: - - chronic lung disease Review of Systems Constitutional: Denies: Anorexia, Chills, Fever, Malaise HEENT: Denies: Head Aches, Sore Throat Cardiovascular: Denies: Chest Pain, Claudication, Edema, Light Headedness, Orthopnea, Palpitations, Syncope Respiratory: Denies: Cough, Shortness of Breath Gastrointestinal: Reports: - - She tells me that she had 3 BM's this afternoon but this is the first time she has had a BM since surgery and she is on stool softeners.. Denies: Abdominal Pain, Constipation, Nausea, Vomiting Genitourinary: Denies: Dysuria, Frequency, Urgency Gynecological: Denies: Breast symptoms Musculoskeletal: Reports: Leg Pain - R hip - unchanged since DC Skin: Reports: - - Incision R hip has a small amount dried blood on the dressing.....there is a small amount of erythema around the dressing.....nothing out of the ordinary. Denies: Jaundice, Rash Neurological: Reports: Balance problems - since the THR....marlin if she takes too big a step. Denies: Change in Speech, Slurred speech, Confusion, Difficulty swallowing, Focal weakness, Numbness Psychiatric: Denies: Anxiety, Depression, Homicidal Ideations, Suicidal Ideations Endocrine: Denies: Change in Body Habitus Hematologic/ Lymphatic: Denies: Hx of blood clot VTE Information - Inpt Only VTE Present on Admission: No VTE Mechan Device Prophylaxis: SCD's, Knee High RITESH Hose VTE Pharm Prophylaxis ordered?: Yes Patient Problems: Active and Suspected Problems Status post total hip replacement, right (Acute) 11/07/[address] Huynh Urinary tract infection (Suspected) Fall (Acute) no LOC, lost balance Hyponatremia (Acute) Acute kidney injury (Acute) Dehydration (Acute) Anemia due to blood loss (Acute) - Physical Exam General: Alert, Oriented x3, Cooperative, No apparent distress, Well developed, Well nourished HEENT: Atraumatic, PERRLA, EOMI, Normocephalic Oral: Dry Mucosa Neck: Supple, No JVD, No Nuchal Rigidity, Trachea Midline Lungs: Clear to auscultation, No rhonchi, No wheeze, No rales Cardiovascular: Regular rate, Regular Rhythm, Normal S1, Normal S2, No murmurs, No rub noted, No Gallop Abdomen: Bowel Sounds Present, Soft, Non Tender, Non-Distended, - Extremities: No clubbing, No cyanosis - No guarding with palpation, No edema Skin: No rashes Musculoskeletal: Arthritic Changes Neurological: Cranial nerves II-XII grossly intact, Neuro grossly intact Psych/Mental Status: Normal Affect, Appropriate Vital Signs Temp Pulse Resp BP Pulse Ox 97.8 F 76 18 118/59 L 97 11/09/17 13:18 11/09/17 13:18 11/09/17 13:18 11/09/17 13:18 11/09/17 13:18 Oxygen Delivery Method Room Air Weight: 148 lb Body Mass Index (BMI) 29.4 Assessment/Plan Active and Suspected Problems Status post total hip replacement, right (Acute) 11/07/[address] Huynh Urinary tract infection (Suspected) Fall (Acute) no LOC, lost balance Hyponatremia (Acute) Acute kidney injury (Acute) Dehydration (Acute) Anemia due to blood loss (Acute) Impressions 1. S/P R THR on 11/07/17-discharged home on 11/08/2017 and presented to the ER this morning after a fall at home. She may have taken both oxycodone and tramadol today for pain. She denies dizziness, lightheadedness, chest pain, shortness of breath, palpitations. She did not lose consciousness and thinks that she took too big a step and lost her balance. 2. Acute kidney injury-secondary to dehydration 3. Dehydration 4. Anemia secondary to acute blood loss from recent surgery 5. Remote history of peptic ulcer disease 6. Hypertension 7. Hypothyroidism 8. Osteoarthritis 9. Chronic back pain on gabapentin 300 mg 3 times daily 10. Allergic rhinitis 11. Osteoporosis 12. Asthma 13. Urinary tract infection diagnosed by the ER physician- the specimen was a clean-catch in an 81-year-old woman who just had a total hip replacement - no fever and no elevated WBC, denies sx - strongly doubt UTI No pelvic XRAY done in the ER Discussed with Dr. Marie - will get an AP pelvis and ortho will not need to see unless there is an abnormality on XRAY Hydrate with NS X 2 liters Recheck the lab in the AM Decrease the Gabapentin dose PT/OT consults. Her is fearful that she is too weak for him to care for at home. Will revisit this after she is hydrated and is evaluated by PT/OT. 11/09/172003 <Electronically signed by James Gusman DO> Date James Gusman DO Cosigner Signature: Date (if applicable) CC: Sheila Gusman; Roma Grajeda DO; Barrie Huynh MD Signed CBC W/DIFF, AUTOMATED Collected: 11/11/2017 Status: F Source: [place] 6:25 AM [facility] REPOSITORY TYPE CODE TESTS RESULT OUT OF RANGE REFERENCE UNITS LAB L100.1000 4.4-11.0 K/mm3 Normal WBC 6.0 LAB L100.1200 4.2-5.4 M/mm3 Low RBC 3.86 LAB L100.1300 12.0-15.0 g/dl Low HGB 11.9 LAB L100.1400 37-47 % Low HCT 35.2 LAB L100.1500 81-99 fL Normal MCV 91.2 LAB L100.1600 27.0-32.0 pg Normal MCH 30.8 LAB L100.1700 32-36 g/gl Normal MCHC 33.8 LAB L100.1810 11.6-14.6 % High RDW CV 15.4 LAB L100.1820 35.1-43.9 fl High RDW SD 50.6 LAB L100.1900 150-450 K/mm3 Normal PLT 177 LAB L100.2000 6.2-12.0 fl Normal MPV 9.5 LAB L100.2100 47-70 % High NEUT% 71.7 LAB L100.2200 19-41 % Low LY% 9.5 LAB L100.2300 0-10 % High MONO% 11.3 LAB L100.2400 0-5 % High EO% 6.8 LAB L100.2500 0-1 % Normal BASO% 0.5 LAB L100.2550 0.0-0.9 % Normal IM GRAN % 0.200 Result Comment: IG% - Immature Granulocytes (promyelocytes, myelocytes and metamyelocytes) > 1% indicates that a LEFT SHIFT is Present. LAB L100.2620 2.0-7.7 X10 3/uL Normal Absolute Neut 4.3 LAB L100.2720 0.83-4.51 X10 3/ul Low Absolute Lymph 0.57 LAB L100.4500 SMEAR Normal COMMENT Result Comment: LYMPHOPENIA NOTED Performed By: #### L100.0100 #### [facility] [address] [place], [address] CBC W/DIFF, AUTOMATED Collected: 11/10/2017 Status: F Source: [place] 2:35 PM [facility] REPOSITORY TYPE CODE TESTS RESULT OUT OF RANGE REFERENCE UNITS LAB L100.1000 4.4-11.0 K/mm3 Normal WBC 6.2 LAB L100.1200 4.2-5.4 M/mm3 Low RBC 3.84 LAB L100.1300 12.0-15.0 g/dl Low HGB 11.9 LAB L100.1400 37-47 % Low HCT 34.8 LAB L100.1500 81-99 fL Normal MCV 90.6 LAB L100.1600 27.0-32.0 pg Normal MCH 31.0 LAB L100.1700 32-36 g/gl Normal MCHC 34.2 LAB L100.1810 11.6-14.6 % High RDW CV 15.1 LAB L100.1820 35.1-43.9 fl High RDW SD 49.3 LAB L100.1900 150-450 K/mm3 Normal PLT 164 LAB L100.2000 6.2-12.0 fl Normal MPV 9.5 LAB L100.2100 47-70 % High NEUT% 78.3 LAB L100.2200 19-41 % Low LY% 7.2 LAB L100.2300 0-10 % Normal MONO% 10.0 LAB L100.2400 0-5 % Normal EO% 4.0 LAB L100.2500 0-1 % Normal BASO% 0.3 LAB L100.2550 0.0-0.9 % Normal IM GRAN % 0.200 Result Comment: IG% - Immature Granulocytes (promyelocytes, myelocytes and metamyelocytes) > 1% indicates that a LEFT SHIFT is Present. LAB L100.2620 2.0-7.7 X10 3/uL Normal Absolute Neut 4.9 LAB L100.2720 0.83-4.51 X10 3/ul Low Absolute Lymph 0.45 Performed By: #### L100.0100 #### [facility] [address] [place], [place], [address] COMPREHENSIVE METABOLIC Collected: 11/10/2017 Status: F Source: [place] [facility] 2:35 PM [facility] REPOSITORY TYPE CODE TESTS RESULT OUT OF RANGE REFERENCE UNITS LAB L501.0100 74-106 mg/dL Normal GLU 95 LAB L501.1000 7-18 mg/dL Normal BUN 15 LAB L501.1100 0.55-1.02 mg/dL Low 0.54 CREAT,SERUM Result Comment: The validity of the calculated GFR AND GFRAA in patients over 70 years has not been determined. Clinical correlation is essential. LAB L501.1110 >60 mL/min Normal EST GFR 115 Result Comment: Non- GFR Calc LAB L501.1115 >60 mL/min Normal EST GFR - AA 139 Result Comment: GFR Calc LAB L501.1255 ml/min Normal Estimated CRCL 47.55 LAB L501.1300 10-20 RATIO High BUN/CRE 27.6 LAB L501.1500 6.4-8. g/dL Low 2 T PROT 6.1 LAB L501.1800 3.2-5. g/dL Low 0 ALB 2.8 LAB L501.1950 2.2-4. g/dL Normal 2 GLOB 3.3 LAB L501.2000 0.9-2. RATIO Low 4 A/G 0.8 LAB L501.2200 8.5-10 mg/dL Low .1 CA 8.0 LAB L501.4100 15-37 U/L High AST 41 LAB L501.4305 45-117 U/L Normal ALK P 117 LAB L501.4405 13-56 U/L High ALT 62 Result Comment: Please note revised ALT reference range effective 2017. LAB L501.4600 0.20-1.00 mg/dL High T BILI 2.80 LAB L501.5300 136-145 mmol/L Normal NA 143 LAB L501.5600 3.5-5.1 mmol/L Normal K 3.9 LAB L501.5900 98-107 mmol/L High CL 112 LAB L501.6100 21.0-32.0 mmol/L Normal CO2 23.0 LAB L501.6200 5-15 Normal GAP 8 Performed By: #### L500.4050, L501.2300, L501.5200 #### [facility] [address] [place], [address] PHOSPHORUS Collected: 11/10/2017 Status: F Source: [place] 2:35 PM [facility] REPOSITORY TYPE CODE TESTS RESULT OUT OF RANGE REFERENCE UNITS LAB L501.2300 2.5-4.9 mg/dL Normal PHOS 2.5 Performed By: #### L500.4050, L501.2300, L501.5200 #### [facility] [address] [place], [address] MAGNESIUM Collected: 11/10/2017 Status: F Source: [place] 2:35 PM [facility] REPOSITORY TYPE CODE TESTS RESULT OUT OF RANGE REFERENCE UNITS LAB L501.5200 1.6-2.6 mg/dL Normal MG 1.9 Result Comment: Please note revised Magnesium reference range effective 2017. Performed By: #### L500.4050, L501.2300, L501.5200 #### [facility] [address] [facility] [place], [address] CONSULTATION Observed: 11/10/2017 Status: F Source: [place] 11:47 AM [facility] REPOSITORY [facility] Medical Records Department [address] [place] [address] Consultation 11/10/17 1141 MR#: [id number] Acct: [id number] Name: MARLI ROSALES Rep #: [id number] : 1935 81 From: Lv Trejo MD PCP: Roma Grajeda DO Status: ADM IN Location: [place] [address] Problem List (1) Anemia due to blood loss Status: Acute Reason for Consult Date of Consultation: 11/10/17 History of Present Illness: The patient is a 81 year old F who is status post a right hip replacement on November 07.estimated blood loss during the procedure was 200 cc. The patient had a preoperative hemoglobin of 12 The patient is noted black, foul-smelling and gelatinous stool postoperatively. She noted a degree of fatigue. hemoglobin today was 8.0. The patient's stool was Hemoccult positive. I was consulted for GI bleed. The patient recalls she had undergone endoscopy by Dr. Ortega approximately 2 years previously. She understands that her colonoscopy was unremarkable and that she was told she did not have to have further colonoscopies. Upon further questioning, the patient recalls that she was told she had findings consistent with celiac/gluten sensitivity, but she does not recall whether she had upper endoscopy performed. she did have a barium swallow in November [address] Ortega for a history of dysphagia which was radiographically normal. Past Medical History Past Medical History (Chronic Problems): Chronic Problems History of peptic ulcer disease (Chronic) Hypothyroidism (Chronic) Hypertension (Chronic) Allergies grass pollen-perennial rye, standar [grass poll-perennial rye,std] Allergy (Verified 10/23/17 11:11) sinus pressure gluten Adverse Reaction (Verified 11/09/17 13:52) Food Allergy lactose Adverse Reaction (Verified 11/09/17 13:52) Food Allergy DUST Allergy (Uncoded 10/23/17 11:11) sinus pressure MOLD Allergy (Uncoded 10/23/17 11:11) SINUS PRESSURE Home Medications: Ambulatory Orders Medication Instructions Recorded Amlodipine [Norvasc] 5 mg PO DAILY 12/31/14 Gabapentin [Neurontin] 300 mg PO TID 12/31/14 Levothyroxine [Synthroid] 50 mcg PO DAILY 12/31/14 Surgical History: cholecystectomy, - - both shoulders,back knee and shoulders,eye surgeries, right knee surgery. Right total hip replacement on 11/07/[address] Huynh. Psychiatric History: No pertinent psych hx SOLE RUFFER History: No pertinent SOLE RUFFER history Lives: Spouse/ Significant Other Smoking Status: Never smoker Tobacco Use: Non-smoker Alcohol: Rare Drugs: None - *Family History Maternal History Items: - - bowel cancer Paternal History Items: - - chronic lung disease Review of Systems Constitutional: Reports: Anorexia, Malaise, Fatigue HEENT: Denies: Head Aches, Sinus Congestion, Sinus Drainage Cardiovascular: Denies: Chest Pain, Palpitations Respiratory: Denies: Cough, Shortness of breath at rest, Sputum production Gastrointestinal: Reports: Melena. Denies: Abdominal Pain, Nausea, Vomiting Genitourinary: Denies: Dysuria Musculoskeletal: Denies: Joint Pain, Joint Tenderness Skin: Denies: Rash, Wounds Neurological: Denies: Numbness, Tingling, Focal weakness Psychiatric: Denies: Anxiety, Depression, Homicidal Ideations, Suicidal Ideations Hematologic/ Lymphatic: Denies: Easy Bruising, Easy Bleeding Patient Problems: Active and Suspected Problems Status post total hip replacement, right (Acute) 11/07/[address] Huynh Urinary tract infection (Suspected) Fall (Acute) no LOC, lost balance Hyponatremia (Acute) Acute kidney injury (Acute) Dehydration (Acute) Anemia due to blood loss (Acute) - Physical Exam General: Alert, Oriented x3, Cooperative Lungs: Clear to auscultation, Normal air movement Cardiovascular: Regular rate, No murmurs Abdomen: Bowel Sounds Present, Soft, Non Tender Vital Signs Temp Pulse Resp BP Pulse Ox 99.0 F 75 18 131/85 H 96 11/10/17 11:15 11/10/17 11:15 11/10/17 11:15 11/10/17 11:15 11/10/17 11:15 Oxygen Delivery Method Room Air Weight: 67.132 kg Body Mass Index (BMI) 29.4 Orthostatic Vital Signs Start: 11/10/17 06:45 Freq: q24h Status: Active Protocol: Activity Type Activity Date Activity User E-Sign Co-Sign Detail Recorded Client Recorded Date Recorded By Document 11/10/17 06:45 CMS [id number] 11/10/17 07:03 CMS Orthostatic Vitals Standing -Blood Pressure (90/60-120/80) 148/72 H -Extremity Use Left Arm -Pulse Rate (60-100) 85 Sitting -Blood Pressure (90/60-120/80) 136/68 H Intake and Output for Last 24 Hours Intake Total 1691.6 / 1691.6 Output Total 1000 / 1000 Balance 691.6 / 691.6 Microbiology Past 72 Hours 11/10/17 07:10 Stool Occult Blood (SUZANNE) - Final Stool Occult Blood Positive Laboratory Tests Past 24 Hrs Assessment/Plan Active and Suspected Problems Status post total hip replacement, right (Acute) 11/07/[address] Huynh Urinary tract infection (Suspected) Fall (Acute) no LOC, lost balance Hyponatremia (Acute) Acute kidney injury (Acute) Dehydration (Acute) Anemia due to blood loss (Acute) melena-likely upper GI bleed. We'll watch the patient's output and hemoglobin. If she becomes unstable we'll plan for urgent upper endoscopy. Otherwise, plan for semiurgent endoscopy on Sunday. The patient understands the risks, benefits, alternatives and possible complications related to endoscopy and consents to the above procedure. 11/10/17 1147 <Electronically signed by Lv Trejo MD> Date Lv Trejo MD Cosigner Signature (if applicable): Date CC: Roma Grajeda DO; Lv Trejo MD; Ayla Lagunas MD Signed Observed: 11/10/2017 Status: F Source: [place] STOOL OCCULT BLOOD 7:10 AM [facility] IFOB REPOSITORY Has pt arrived? Y STOB iFOB Occult Blood Positive ORGANISM 1: OCCULT BLOOD POSITIVE Performed By: #### M100.7900 #### [facility] [address], [address] URINALYSIS, COMPLETE Collected: 11/09/2017 Status: F Source: [place] 9:05 PM [facility] REPOSITORY Order Comment: Comments: Straight Cath How was Urine Obtained? CATHETER SPECIMEN TYPE CODE TESTS RESULT OUT OF RANGE REFERENCE UNITS LAB L400.3000 Yellow COLOR Normal Yellow LAB L400.3050 Clear Normal CLARITY Clear LAB L400.3200 Normal mg/dl Normal GLUCOSE, UR Normal LAB L400.3300 Negative mg/dL Normal BILIRUBIN URINE Negative LAB L400.3400 Negative mg/dl Normal KETONE UR Negative LAB L400.3465 1.002-1.030 Normal SP.GR. DIPSTX 1.010 LAB L400.3550 5.0 - 8.0 pH UR Normal 6.0 LAB L400.3600 Negative mg/dl PROT Normal DIPSTX Negative LAB L400.3700 Normal mg/dl Normal UROBILI Normal LAB L400.3750 Negative Normal NITRITE UR Negative LAB L400.3780 Negative /ul High 10 OCCULT BLOOD-UR LAB L400.3800 Negative /ul High LEUK ESTERASE 500 LAB L400.4050 0-5 /hpf WBC Normal 0-5 SEEN LAB L400.4100 0-5 /hpf 0 Normal RBC-UA SEEN LAB L400.4150 5-10 /hpf SQUAM 0 Normal EPI SEEN LAB L400.4300 None Seen /hpf 0 Normal BACTERIA SEEN LAB L400.4350 <or=2+ /hpf 0 Normal MUCUS, URINE SEEN Performed By: #### L400.0001 #### [facility] [address] [facility] [place], [place], [address] Observed: 11/09/2017 Status: F Source: [place] CULTURE, URINE 9:05 PM [facility] REPOSITORY Comments: Straight Cath Urine Culture Culture exhibits no growth. Performed By: #### M100.0650 #### [facility] [address] [facility] [place], [address] HH, HEMOGLOBIN AND Collected: 11/09/2017 Status: F Source: [place] HEMATOCRIT 8:15 PM [facility] REPOSITORY TYPE CODE TESTS RESULT OUT OF RANGE REFERENCE UNITS LAB L100.1300 12.0-15.0 g/dl Low HGB 8.0 LAB L100.1400 37-47 % Low HCT 25.0 Performed By: #### L100.0600 #### [facility] [address] [place] [address]. [place], [place], [address] TYPE AND SCREEN Collected: 11/09/2017 Status: F Source: [place] 8:15 PM [facility] REPOSITORY Order Comment: CMV NEG? N Is the EBL >/= 1000ml in adults or >/= 12ml/kg in children? Y Reason for Ordering Blood: Acute Are the blood/blood products to be transfused? N Is the patient having/had surgery? Y Irradiated? N Leukodepleted? Y Surgery Date: 11/07/17 Type of Surgery: T0TAL HIP REPLACEMENT TYPE CODE TESTS RESULT OUT OF RANGE REFERENCE UNITS LAB B10.0800 A Normal BLOOD TYPE GEL NEGATIVE LAB B100.4000 Normal Antibody NEGATIVE Screen Performed By: #### B101.7450 #### [facility] [facility]. [place], [place], [address] RC Collected: 11/09/2017 Status: F Source: [place] 8:15 PM [facility] REPOSITORY TYPE CODE TESTS RESULT OUT OF REFERENCE UNITS RANGE LAB U100.0000 [id number] TRANSFUSED PRODUCT: T AND S with Crossmatch, Red Cells COUNT: 3 Performed By: #### U100.0000 #### [facility] - refer to report for specific site PELVIS 1 OR 2 VIEWS Observed: 11/09/2017 Status: F Source: [place] 7:56 PM [facility] REPOSITORY [facility] Imaging Services [address] [place] [address] Pelvis 1 or 2 Views MR#: [id number] Acct: [id number] Name: MARLI ROSALES Rep #: [id number] : 1935 F 81 From: Ray Carballo DO PCP: Roma Grajeda DO Status: ADM IN Study: Pelvis 1 or 2 Views Date of Exam: 11/09/17 Exam# [id number] Ordering Dr: James Gusman DO STUDY: X-RAY - PELVIS REASON FOR EXAM: Female, 81 years old. Fall TECHNIQUE: One view of the pelvis was obtained. COMPARISON: None. FINDINGS: There is a non-specific bowel gas pattern. Normal visualized soft tissue structures. Status post fusion of lower lumbar levels. Normal bilateral iliac wings, sacroiliac joints and visualized sacrum. Normal visualized bilateral superior and inferior pubic rami. Normal pubic symphysis. Normal ischial tuberosities. Right hip prosthesis is noted in satisfactory alignment on this single limited view. There is soft tissue gas lateral to the right hip and proximal thigh likely postsurgically related. Normal visualized left femoral head. Normal left acetabulum. Normal left hip joint. RAD/Pelvis 1 or 2 Views IMPRESSION: Status post right total knee replacement with postsurgical changes in the adjacent soft tissue. No acute bony injury.. Electronically Signed: Ray Carballo DO at 20:26 EST Tel [phone], Service support , CC: Sheila Gusman; Roma Grajeda DO Head Cager: Signed EMERGENCY DEPARTMENT Observed: 11/09/2017 Status: F Source: [place] SUMMARY 12[facility]18 [facility] Medical Records Department [address] [place] [address] Emergency Department Summary 11/09/17 1058 MR#: [id number] Acct: [id number] Name: MARLI ROSALES Rep #: [id number] : 1935 81 From: Akshat Zuniga MD PCP: Roma Grajeda DO Status: REG ER - ER Visit Summary Date of Service: 11/09/17 Chief Complaint: Fall, weakness, recent hip surgery History of Present Illness: The patient is a 81 F who had a fall this morning. She states that she had a hip replacement done 2 days ago. She was discharged from the hospital yesterday. She states that she fell this morning and was unable to get up. Paramedics arrived and her blood pressure was low so they transported her here. She denies any pain. states that she has been weak and tired since her surgery. She has been on oxycodone for pain. She also takes gabapentin and tramadol. They are concerned that she is getting too much medication. also stated some concern he may not have made the right decision to take her home as he may not be able to take care of her. Physical Examination: Vital signs are reviewed. HEENT exam unremarkable. Heart is regular rate and rhythm. Lungs are clear to auscultation. Abdomen soft and nontender. She does have tenderness of the right hip. Overall she is diffusely weak with no lateralizing stroke symptoms. She does appear drowsy Test Results: EKG is normal sinus rhythm. Chest x-ray unremarkable. Hemoglobin is 8.8. Urinalysis reveals greater than 100 white blood cells with cath specimen Emergency Department Course and Treatment: Patient was given a little bit of IV fluid. She was never hypotensive in the emergency department. My initial concern was that she may be overmedicated with pain medications which could be causing her drowsiness. This still could be the case. However, her UTI could be as well. I will give her 1 g of IV Rocephin and discussed with hospitalist for admission Treatment Plan: [] Disposition: Admit Impression: UTI, delirium This note was generated with Bright[employer]md dictation software. It may contain incorrect words, spelling, and punctuation that were not noted in review of the chart prior to signing ED Disposition - Plan for ED Patient: Chief Complaint: Hypotension Referrals: Roma Grajeda, DO [Primary Care Provider] - What to do if you have Problems For any increased pain, shortness of breath, bleeding, nausea or vomiting, chest pain, or any unexpected problems, contact your Primary Care Provider. Call [facility] ([phone]) or report to the closest Emergency Room. Call 911 if necessary. 11/09/17 1218 <Electronically signed by Akshat Zuniga MD> Date Akshat Zuniga MD Cosigner Signature (If Indicated): Date CC: oRma Grajeda DO URINALYSIS, COMPLETE Collected: 11/09/2017 Status: F Source: [place] 11:40 AM [facility] REPOSITORY Order Comment: Order Date: 11/09/17 Has pt arrived? Y How was Urine Obtained? MISDRAW HAND TO SPECIFY TYPE CODE TESTS RESULT OUT OF RANGE REFERENCE UNITS LAB L400.3000 Yellow COLOR Normal Yellow LAB L400.3050 Clear Normal CLARITY Sl. Cloudy LAB L400.3200 Normal mg/dl Normal GLUCOSE, UR Normal LAB L400.3300 Negative mg/dL Normal BILIRUBIN URINE Negative LAB L400.3400 Negative mg/dl Normal KETONE UR Negative LAB L400.3465 1.002-1.030 Normal SP.GR. DIPSTX 1.010 LAB L400.3550 5.0 - 8.0 pH UR Normal 6.0 LAB L400.3600 Negative mg/dl High PROT 30 DIPSTX LAB L400.3700 Normal mg/dl Normal UROBILI Normal LAB L400.3750 Negative Normal NITRITE UR Negative LAB L400.3780 Negative /ul High 25 OCCULT BLOOD-UR LAB L400.3800 Negative /ul High LEUK ESTERASE 500 LAB L400.4050 0-5 /hpf WBC Normal >100 SEEN LAB L400.4100 0-5 /hpf 0 Normal RBC-UA SEEN LAB L400.4150 5-10 /hpf SQUAM Normal EPI 0-5 SEEN LAB L400.4300 None Seen /hpf 0 Normal BACTERIA SEEN LAB L400.4350 <or=2+ /hpf 0 Normal MUCUS, URINE SEEN Performed By: #### L400.0001 #### [facility] [address], [address] Observed: 11/09/2017 Status: F Source: [place] CULTURE, URINE 11:40 AM [facility] REPOSITORY Order Date: 11/09/17 Urine Culture Below infection level. ORGANISM 1: GNR Poss Pseudomonas sp [place] Count <1000 Performed By: #### M100.0650 #### [facility] [address] [place], [address] CBC W/DIFF, AUTOMATED Collected: 11/09/2017 Status: F Source: [place] 10:47 AM [facility] REPOSITORY TYPE CODE TESTS RESULT OUT OF RANGE REFERENCE UNITS LAB L100.1000 4.4-11.0 K/mm3 Normal WBC 7.7 LAB L100.1200 4.2-5.4 M/mm3 Low RBC 2.92 LAB L100.1300 12.0-15.0 g/dl Low HGB 8.8 LAB L100.1400 37-47 % Low HCT 27.5 LAB L100.1500 81-99 fL Normal MCV 94.2 LAB L100.1600 27.0-32.0 pg Normal MCH 30.1 LAB L100.1700 32-36 g/gl Normal MCHC 32.0 LAB L100.1810 11.6-14.6 % Normal RDW CV 13.9 LAB L100.1820 35.1-43.9 fl High RDW SD 47.6 LAB L100.1900 150-450 K/mm3 Normal PLT 166 LAB L100.2000 6.2-12.0 fl Normal MPV 9.1 LAB L100.2100 47-70 % High NEUT% 77.3 LAB L100.2200 19-41 % Low LY% 9.1 LAB L100.2300 0-10 % Normal MONO% 8.1 LAB L100.2400 0-5 % Normal EO% 4.9 LAB L100.2500 0-1 % Normal BASO% 0.3 LAB L100.2550 0.0-0.9 % Normal IM GRAN % 0.300 Result Comment: IG% - Immature Granulocytes (promyelocytes, myelocytes and metamyelocytes) > 1% indicates that a LEFT SHIFT is Present. LAB L100.2620 2.0-7.7 X10 3/uL Normal Absolute Neut 5.9 LAB L100.2720 0.83-4.51 X10 3/ul Low Absolute Lymph 0.70 Performed By: #### L100.0100 #### [facility] [address] [place], [address] BASIC METABOLIC Collected: 11/09/2017 Status: F Source: [place] PROFILE (BMP) 10:47 AM [facility] REPOSITORY TYPE CODE TESTS RESULT OUT OF RANGE REFERENCE UNITS LAB L501.0100 70-110 mg/dL Normal GLU 109 LAB L501.1000 7-18 mg/dL High BUN 32 LAB L501.1100 0.55-1.02 mg/dL High 1.11 CREAT,SERUM Result Comment: The validity of the calculated GFR AND GFRAA in patients over 70 years has not been determined. Clinical correlation is essential. LAB L501.1110 >60 mL/min Low EST GFR 50 Result Comment: Non- GFR Calc LAB L501.1115 >60 mL/min Normal EST GFR - AA 61 Result Comment: GFR Calc LAB L501.1255 ml/min Normal Estimated CRCL 42.84 LAB L501.1300 10-20 RATIO High BUN/CRE 28.8 LAB L501.2200 8.5-10 mg/dL Normal .1 CA 8.7 LAB L501.5300 136-14 mmol/L Low 5 NA 133 LAB L501.5600 3.5-5. mmol/L Normal 1 K 3.8 LAB L501.5900 98-107 mmol/L Normal CL 98 LAB L501.6100 21.0-3 mmol/L Normal 2.0 CO2 24.0 LAB L501.6200 5-15 Normal GAP 11 Performed By: #### L500.2500 #### [facility] [address] [place], [place], [address] CHEST 1 VIEW Observed: 11/09/2017 Status: F Source: [place] (PORTABLE) 10:32 AM [facility] Imaging Services [address] [place] [address] Chest 1 View (Portable) MR#: [id number] Acct: [id number] Name: MARLI ROSALES Rep #: [id number] : 1935 F 81 From: Viet Gimenez MD PCP: Roma Grajeda DO Status: REG ER Study: Chest 1 View (Portable) Date of Exam: 11/09/17 Exam# [id number] Ordering Dr: Akshat Zuniga MD STUDY: X-RAY CHEST REASON FOR EXAM: Female, 81 years old. Fall this morning. Hypotension. TECHNIQUE: Single frontal view of the chest. COMPARISON: March 09, 2017 FINDINGS: There is a diffuse interstitial pattern unchanged. There is no demonstrated pleural abnormality. There is stable borderline cardiomegaly. Normal mediastinum and alex. Normal visualized pulmonary arteries. There is atherosclerotic calcification of the aortic arch with tortuosity unchanged. Normal visualized thoracic spine. There are bilateral total shoulder arthroplasty is unchanged. There is no demonstrated abnormality of the visualized soft tissue structures of the upper abdomen. RAD/Chest 1 View (Portable) IMPRESSION: Stable cardiomegaly with diffuse interstitial pattern. No acute pathology. Electronically Signed: Viet Gimenez MD at 10:58 EST , Service support , CC: Akshat Zuniga MD; Roma Grajeda DO Head Cager: Signed DISCHARGE INSTRUCTION Observed: 11/08/2017 Status: F Source: [place] 11:30 AM [facility] Medical Records Department [address] [place] [address] Instructions for Home/Discharge Instructions 11/08/17 1125 MR#: [id number] Acct: [id number] Name: MARLI ROSALES Rep #: [id number] : 1935 81 From: Jani Nicholson PA-C PCP: Roma Grajeda DO Status: ADM IN Discharge Diet: No Restrictions Discharge Activity: May Not Drive - while taking narcotic pain medications. May shower in (days): 1 - only if incision is dry and without drainage. Do NOT soak/submerge in tub/pool/munguia/stream/hot tub. Weight Bearing Status: Weight bearing as tolerated Additional Activity Instructions:: Wear elastic stockings for 2 weeks. DO NOT use alcohol with narcotic pain medication. DO NOT make important decisions while taking narcotic medication. If you have problems with taking your medication (rash, itching, nausea, etc.) call the office at once. Call your doctor if your incision/area has: Increased Pain/ Swelling, Increased Redness, Foul Smelling Discharge Call your doctor if you observe: Fever of 101 or Higher Remove Dressing in (days):: 4 - Okay to remove on November 12, 2017 Instructions: Hip Precautions, Hip Safety: Sleeping Positions, Hip Safety: Sitting, Total Hip Replacement, Understanding Hip Replacement, After Total Hip Replacement: Returning to Activity, After Hip Replacement: Home Safety, After Total Hip Replacement: Recovering at Home, Discharge Instructions for Total Hip Replacement Surgery, After Hip Replacement: Managing Your Pain, After Hip Replacement: Using Your Walker, After Hip Replacement: Your Exercise Program Chart Additional Instructions: Follow [facility] postop instructions Allergies/Adverse Reactions: Allergies grass pollen-perennial rye, standar [grass poll-perennial rye,std] Allergy (Verified 10/23/17 11:11) sinus pressure DUST Allergy (Uncoded 10/23/17 11:11) sinus pressure MOLD Allergy (Uncoded 10/23/17 11:11) SINUS PRESSURE Medications to take at Discharge Amlodipine [Norvasc] 5 mg PO DAILY 12/31/14 Gabapentin [Neurontin] 300 mg PO TID 12/31/14 Levothyroxine [Synthroid] 50 mcg PO DAILY 12/31/14 Lisinopril [Zestril] 20 mg PO DAILY 12/31/14 Trazodone HCl [Desyrel] 50 mg PO QHS 12/31/14 Ascorbic Acid [Vitamin C] 1,000 mg PO QHS 03/23/16 Methenamine Mandelate 1 gm PO QHS 06/16/16 Guaifenesin [Mucinex] 600 mg PO BID PRN PRN 08/25/16 Polyethylene Glycol 3350 [Miralax] 17 gm PO DAILY 08/25/16 Alendronate Sodium [Fosamax] 70 mg PO FR 03/09/17 Cetirizine HCl [Zyrtec] 10 mg PO PRN PRN 03/09/17 Fluticasone 0.05% [Flonase Nasal [place]] 2 spray NASAL QHS 03/09/17 Bio X4 1 cap PO PRN PRN 10/23/17 Cholecalciferol (Vitamin D3) [Vitamin D3] 5,000 unit PO DAILY 10/23/17 Docusate Sodium [Stool Softener] 100 mg PO QHS 10/23/17 Esomeprazole Magnesium [Nexium 24Hr] 20 mg PO PRN PRN 10/23/17 Ferrous Sulfate 325 mg PO DAILY@0800 10/23/17 Hyoscyamine Sulfate 0.125 mg SL PRN PRN 10/23/17 Linaclotide [Linzess] 72 mcg PO DAILY 10/23/17 Mirabegron [Myrbetriq] 25 mg PO DAILY 10/23/17 Simethicone [Gas Relief] 125 mg PO PRN PRN 10/23/17 Acetaminophen [Tylenol] 1,000 mg PO Q8 #90 tab 11/08/17 Aspirin 325 mg PO BIDCM #30 tab 11/08/17 Doxycycline 100 mg PO BID #14 cap 11/08/17 Oxycodone [Oxyir] 5 - 10 mg PO Q4H PRN PRN 7 Days #60 tablet 11/08/17 The following prescriptions were given: Oxycodone [Oxyir] 5 - 10 mg PO Q4H PRN PRN 7 Days #60 tablet PRN Reason: Mod-Severe Pain (4-10/10) Acetaminophen [Tylenol] 1,000 mg PO Q8 #90 tab Aspirin 325 mg PO BIDCM #30 tab Doxycycline 100 mg PO BID #14 cap Primary Care Physician: Roma Grajeda DO [Primary Care Provider] - Please Follow Up With: Home health physical therapy Please Follow Up With: Jani Nicholson PA-C When: 11/21/17 @ 11:00 am 11/08/17 1130 <Electronically signed by Jani Nicholson PA-C> Date Jani Nicholson PA-C CC: Roma Grajeda DO CBC-COMPLETE BLOOD CNT Collected: 11/08/2017 Status: F Source: [place] NO DIFF 6:20 AM [facility] REPOSITORY TYPE CODE TESTS RESULT OUT OF RANGE REFERENCE UNITS LAB L100.1000 4.4-11.0 K/mm3 Normal WBC 9.7 LAB L100.1200 4.2-5.4 M/mm3 Low RBC 3.10 LAB L100.1300 12.0-15.0 g/dl Low HGB 9.5 LAB L100.1400 37-47 % Low HCT 29.4 LAB L100.1500 81-99 fL Normal MCV 94.8 LAB L100.1600 27.0-32.0 pg Normal MCH 30.6 LAB L100.1700 32-36 g/gl Normal MCHC 32.3 LAB L100.1810 11.6-14.6 % Normal RDW CV 13.4 LAB L100.1820 35.1-43.9 fl High RDW SD 46.7 LAB L100.1900 150-450 K/mm3 Normal PLT 207 LAB L100.2000 6.2-12.0 fl Normal MPV 9.3 Performed By: #### L100.0500 #### [facility] [address] [place], [place], [address] BASIC METABOLIC Collected: 11/08/2017 Status: F Source: [place] PROFILE (BMP) 6:20 AM [facility] REPOSITORY TYPE CODE TESTS RESULT OUT OF RANGE REFERENCE UNITS LAB L501.0100 70-110 mg/dL High GLU 121 Result Comment: Fasting Glucose result from 110 to <126 mg/dL suggests IMPAIRED HOMEOSTASIS per A.D.A. criteria. LAB L501.1000 7-18 mg/dL Normal BUN 17 LAB L501.1100 0.55-1.02 mg/dL Normal CREAT,SERUM 0.90 Result Comment: The validity of the calculated GFR AND GFRAA in patients over 70 years has not been determined. Clinical correlation is essential. LAB L501.1110 >60 mL/min Normal EST GFR 64 Result Comment: Non- GFR Calc LAB L501.1115 >60 mL/min Normal EST GFR - AA 78 Result Comment: GFR Calc LAB L501.1255 ml/min Normal Estimated CRCL 53.36 LAB L501.1300 10-20 RATIO Normal BUN/CRE 19.0 LAB L501.2200 8.5-10 mg/dL Low .1 CA 8.1 LAB L501.5300 136-14 mmol/L Low 5 NA 135 LAB L501.5600 3.5-5. mmol/L Normal 1 K 4.1 LAB L501.5900 98-107 mmol/L Normal CL 101 LAB L501.6100 21.0-3 mmol/L Normal 2.0 CO2 25.0 LAB L501.6200 5-15 Normal GAP 9 Performed By: #### L500.2500 #### [facility] [address] [place], [address] AFB Observed: 11/07/2017 Status: F Source: [place] CULT/SMEAR [id number] 2:55 PM [facility] REPOSITORY Comments: INFERIOR SYNOVIUM RIGHT HIP AFB Smear/Fluor TESTING PERFORMED AT [facility]. ORIGINAL REPORT ON FILE IN LAB CONTAINS ADDITIONAL TEST SITE INFORMATION. Smear, Acid Fast NO ACID-FAST BACILLI OBSERVED ON SMEAR. AFB Cult TESTING PERFORMED AT [facility]. ORIGINAL REPORT ON FILE IN LAB CONTAINS ADDITIONAL TEST SITE INFORMATION. Culture, Acid Fast NO ACID-FAST BACILLI ISOLATED AFTER 6 WEEKS. Performed By: #### M100.3880 #### [facility] [address] [place], [place], [address] Observed: 11/07/2017 Status: F Source: [place] CULTURE, DEEP WOUND 2:20 PM [facility] REPOSITORY Order Date: 05/09/17 Comments: INFERIOR SYNOVIUM RIGHT HIP Gram Stain Gram Stain Red Cell Stroma 3+ Red Blood Cells No organisms seen Rare White Blood Cells Wound Culture No growth aerobically. Cult, Anaerobic No growth in 5 days. Performed By: #### M100.1500 #### [facility] [address] [place] [address]. [place], [place], [id number] Observed: 11/07/2017 Status: F Source: [place] CULTURE, DEEP WOUND 2:20 PM [facility] REPOSITORY Order Date: 05/09/17 Comments: SUPERIOR SYNOVIUM RIGHT HIP Gram Stain Gram Stain Red Cell Stroma Rare White Blood Cells No organisms seen Wound Culture No growth aerobically. Cult, Anaerobic No growth in 5 days. Performed By: #### M100.1500 #### [facility] [address] [place] [address]. [place], [place], [address] Observed: 11/07/2017 Status: F Source: [place] CULTURE, DEEP WOUND 2:20 PM [facility] REPOSITORY Order Date: 05/09/17 Comments: ACETABULAR MEMBRANE RIGHT HIP Gram Stain Gram Stain 2+ Red Blood Cells Wound Culture No growth aerobically. Cult, Anaerobic No growth in 5 days. Performed By: #### M100.1500 #### [facility] [address] [place] [address]. [place], [place], [id number] AFB Observed: 11/07/2017 Status: F Source: [place] CULT/SMEAR [id number] 2:20 PM [facility] REPOSITORY Comments: SUPERIOR SYNOVIUM RIGHT HIP Is this test to exclude patient from TB Isolation? N AFB Smear/Fluor TESTING PERFORMED AT [facility]. ORIGINAL REPORT ON FILE IN LAB CONTAINS ADDITIONAL TEST SITE INFORMATION. Smear, Acid Fast NO ACID-FAST BACILLI OBSERVED ON SMEAR. AFB Cult TESTING PERFORMED AT [facility]. ORIGINAL REPORT ON FILE IN LAB CONTAINS ADDITIONAL TEST SITE INFORMATION. Culture, Acid Fast NO ACID-FAST BACILLI ISOLATED AFTER 6 WEEKS. Performed By: #### M100.3880, M600.1900 #### [facility] [address] [place], [address] Observed: 11/07/2017 Status: F Source: LESLEE MARIA W/ 2:20 PM [facility] [id number] REPOSITORY Comments: SUPERIOR SYNOVIUM RIGHT HIP Is this test to exclude patient from TB Isolation? Jyothi Groev,[id number] TESTING PERFORMED AT [facility]. ORIGINAL REPORT ON FILE IN LAB CONTAINS ADDITIONAL TEST SITE INFORMATION. CUF No yeast or mold isolated after [address] [facility] ORIGINAL REPORT ON FILE IN LAB CONTAINS ADDITIONAL TEST SITE INFORMATION. Fungus Stain No yeast or mold observed. Performed By: #### M100.3880, M600.1900 #### [facility] [address] [place], [address] AFB Observed: 11/07/2017 Status: F Source: [place] CULT/SMEAR [id number] 2:20 PM [facility] REPOSITORY Comments: ACETABULAR MEMBRANE RIGHT HIP Is this test to exclude patient from TB Isolation? N AFB Smear/Fluor TESTING PERFORMED AT [facility]. ORIGINAL REPORT ON FILE IN LAB CONTAINS ADDITIONAL TEST SITE INFORMATION. Smear, Acid Fast NO ACID-FAST BACILLI OBSERVED ON SMEAR. AFB Cult [facility]. ORIGINAL REPORT ON FILE IN LAB CONTAINS ADDITIONAL TEST SITE INFORMATION. Culture, Acid Fast NO ACID-FAST BACILLI ISOLATED AFTER 6 WEEKS. Performed By: #### M100.3880, M600.1900 #### [facility] [address] [place], [address] Observed: 11/07/2017 Status: F Source: [place] RIVERA, FUNGUS W/ 2:20 PM [facility] [id number] REPOSITORY Comments: ACETABULAR MEMBRANE RIGHT HIP Is this test to exclude patient from TB Isolation? N Cu,[id number] TESTING PERFORMED AT [facility]. ORIGINAL REPORT ON FILE IN LAB CONTAINS ADDITIONAL TEST SITE INFORMATION. CUF No yeast or mold isolated after [address] TESTING PERFORMED AT [facility]. ORIGINAL REPORT ON FILE IN LAB CONTAINS ADDITIONAL TEST SITE INFORMATION. Fungus Stain No yeast or mold observed. Performed By: #### M100.3880, M600.1900 #### [facility] [address], [id number] Observed: 11/07/2017 Status: F Source: [place] RIVERA, FUNGUS W/ 2:20 PM [facility] [id number] REPOSITORY Comments: INFERIOR SYNOVIUM RIGHT HIP Is this test to exclude patient from TB Isolation? Jyothi Perfecto,[id number] TESTING PERFORMED AT [facility]. ORIGINAL REPORT ON FILE IN LAB CONTAINS ADDITIONAL TEST SITE INFORMATION. CUF No yeast or mold isolated after [address] TESTING PERFORMED AT [facility]. ORIGINAL REPORT ON FILE IN LAB CONTAINS ADDITIONAL TEST SITE INFORMATION. Fungus Stain No yeast or mold observed. Performed By: #### M600.1900 #### [facility] [address] [place], [place] [address], [address] OPERATIVE REPORT Observed: 11/07/2017 Status: F Source: [place] 2:14 PM [facility] REPOSITORY [facility] Medical Records Department [address] [place], [place] [address] [address] Operative Report 11/07/17 1406 MR#: [id number] Acct: [id number] Name: MARLI ROSALES Rep #: [id number] : 1935 81 From: Barrie Huynh MD PCP: Roma Grajeda DO Status: ADM IN Y Location: [facility] Report of Operation Date of Procedure: 11/07/17 Pre-Operative Diagnosis: Failed right hip hemiarthroplasty, progressive osteoarthritis, leg length discrepancy Post-Operative Diagnosis: Failed right hip hemiarthroplasty, progressive osteoarthritis, leg length discrepancy Surgery/Procedure Performed:: Conversion of previous hip surgery to total hip arthroplasty right Description of Surgical Findings:: Stable hip educational programming director: Jani Nicholson educational programming director: Amado Feilds Type of Anesthesia:: General Anesthesiologist: Pato Can Special Medications: 2 g Ancef, 1 g TXA at incision, 1 g TXA closure, 10 mg Decadron, joint cocktail (5 mg Duramorph, 30 mL of 0.5% Ropivicaine, 1000 units of epinephrine, 30 mg of Toradol) Specimen's removed: 3 separate specimens were sent to microbiology Estimated Blood Loss (mL): 200 Fluids Replaced: 1300 ml crystalloid Description of Procedure: Components used: 1. Yahir MDM liner for 48 shell, alpha code D 2. Yahir trident acetabular shell size 48 mm 3. Yahir X3 polyethylene MDM insert size 38D 4. Sargent cobalt-chromium 22.2mm, +8mm femoral head Brief history operative indications: 81 yo f who failed conservative measures for their hip osteoarthritis status post right hip hemiarthroplasty. Patient had right hip hemiarthroplasty for femoral neck fracture in March 2017. She had progressive groin pain and loss of joint space. X-rays were consistent with osteoarthritis including joint space narrowing, osteophyte formation and subchondral cysts on the acetabular side. Conversion to total hip replacement was discussed with the patient with risks and benefits including but not limited to blood loss, DVTs, PEs, neurovascular damage, dislocation, general risks of anesthesia including loss of life. Patient demonstrated an understanding medical clearance is obtained the patient was consented for surgery. Procedure: On the date of procedure the patient's R hip was marked in the preoperative area. Patient was then taken back to the operating room where anesthesia assumed control of the C-spine and airway and administered anesthetic. Patient was transferred to the operating table and placed in the supine position. The hips were placed at the break of the bed and a sacral bump was placed. The R lower extremity was then prepped out in a sterile fashion using chlorhexidine while the surgeon scrubbed. The PA was vital in the positioning of the patient. Upon reentering the room the R lower extremity was draped in the standard orthopedic fashion and the incision was marked. A timeout was called and everyone agreed upon the side, the site, the procedure be performed, antibody given, and patient's identity. At this time incision was made through skin, subcutaneous tissue, and fat down to fascia. The fascia was then incised and the TFL was retracted laterally. A retractor was placed on the lateral border of the femoral neck. Attention was directed to the inferior portion of the approach and all crossing vessels were identified and appropriately coagulated. A retractor was then placed on the medial portion of the femoral neck. The anterior capsule was then cleared of all soft tissue and then H shaped capsulotomy was made. Aggressive synovectomy was performed and inferior and superior synovium was sent for culture. The retractors were then placed inside the capsule. Traction was then pulled on the leg and a bone tamp was used to separate the fall from the trunnion. The trunnion was then dislocated from the ball and the 43 mm hemiarthroplasty ball was removed from the hip joint. At this time the femur was appropriately exposed and elevated and we examined the femoral component. Femoral component appeared well fixed on shuck testing and rotational testing. Femur could be appropriately elevated. We then raised a small pocket superior to the acetabulum for the femoral trunnion to sit but we did her acetabular work. Attention was then turned toward the acetabulum where the soft tissues were appropriately retracted and the acetabulum was sequentially reamed to 47 mm. A 48 mm cup was then selected and impacted into place. MDM acetabular liner was impacted into place and locking mechanism was verified. The position of the acetabular cup was then verified under live fluoroscopy. Our attention was then directed towards the femur where the trunnion was exposed. Appropriate head was placed with a +0 neck. This gave us a short leg length and an unstable hip. At this time we dislocated the hip and went to a +8 mm neck. This gave us hip stable to 70 external rotation and full extension with good stability at 90 flexion and internal rotation. Leg lengths were near equal at this time. Based on stability we dislocated the hip remove the MDM liner and put an additional 10 of retroversion on the acetabular component. MDM liner was then impacted into place again hip was once again dislocated and found to be stable at 90 external rotation and full extension. He was also stable at 90 flexion and internal rotation. The trial components were then dislocated the proximal femur was again exposed and the components were removed from the wound. The final components were verified and opened. The wound was copiously irrigated out with normal saline. The acetabulum was checked for any residual debris. The final components were placed and impacted. Traction and internal rotation were again used to reduce the hip. After adequate reduction the hip remained stable with appropriate leg lengths. The final components were once again checked with live fluoroscopy and were found to be satisfactory. The wound was then copiously irrigated with normal saline once more, and hemostasis was obtained. Closure was then done using #1 Vicryl runner to close the fascia. A 2-0 vicryl interuppted sutures were used to close the subcutaneous skin. A 3-0 Monocryl and Steri-Strips were used for final skin closure. A Silverlon dressing was placed. Patient was awakened by anesthesia and transferred to the rrevillo. Patient was then transferred to the PACU for recovery. Postoperative plan: Patient will get 24 hours postop antibiotics. Patient will get in-house physical therapy and will be weight-bear as tolerated. Patient will follow up in office in 2 weeks for a wound check and x-rays. During the course of the procedure the physician workers compensation claims assistant played a vital role. His intimate knowledge of my steps in the procedure aided in safe and expedient completion of the procedure. The PA played a vital rolls in positioning particularly in obtaining the appropriate positioning of the sacral bump. The PA was also vital in the retraction of soft tissues during the exposure and especially the femoral work as this is a vital part of the procedure to prevent complications and fractures. The PA was also vital and protecting soft tissues during times of bony cuts and reaming. He also played a vital role in closure with my direct supervision. The PA was also important during reduction and dislocation of the joint and trials intraoperatively. Dr. Fields assisted in the surgery for educational and evaluative purposes only Grafts/Implants Used: Yahir trident acetabular shell with MDM liner - Complications none - Admit VTE Documentation VTE Present on Admission: No VTE Mechan Device Prophylaxis: SCD's, Thigh High RITESH Hose VTE Pharm Prophylaxis ordered?: Yes 11/07/17 5319 <Electronically signed by Barrie Huynh MD> Date Barrie Huynh MD CC: Roma Grajeda DO; Barrie Huynh MD Signed HIP MIN 2 VIEWS Observed: 11/07/2017 Status: F Source: [place] (PORTABLE) 2:03 PM [facility] REPOSITORY [facility] Imaging Services [address] [place] [address] Hip Min 2 Views (Portable) MR#: [id number] Acct: [id number] Name: MARLI ROSALES Rep #: [id number] : 1935 F 81 From: Darron Rojas MD PCP: Roma Grajeda DO Status: ADM IN Study: Hip Min 2 Views (Portable) Date of Exam: 11/07/17 Exam# [id number] Ordering Dr: Barrie Huynh MD STUDY: X-RAY - PELVIS AND RIGHT HIP REASON FOR EXAM: Female, 81 years old. Status post right hip replacement. TECHNIQUE: Radiological exam, hip, unilateral, with pelvis when performed; 2 or 3 views. COMPARISON: None. FINDINGS: The patient is status post right total hip replacement. There is good alignment. Postoperative soft tissue changes. There is evidence of prior fusion of the lower lumbar spine RAD/Hip Min 2 Views (Portable) IMPRESSION: Status post right total hip replacement. There is good alignment. Electronically Signed: aDrron Rojas MD at 15:41 EST Tel [phone], Service support , CC: Roma Grajeda DO; Barrie Huynh MD Head Cager: Signed HIP 1 VIEW WITH Observed: 11/07/2017 Status: F Source: [place] PELVIS 12:18 AM [facility] REPOSITORY [facility] Imaging Services [address] [place] [address] Hip 1 view with Pelvis MR#: [id number] Acct: [id number] Name: MARLI ROSALES Rep #: [id number] : 1935 F 81 From: Darron Rojas MD PCP: Roma Grajeda DO Status: ADM IN Study: Hip 1 view with Pelvis Date of Exam: 11/07/17 Exam# [id number] Ordering Dr: Barrie Huynh MD STUDY: X-RAY - PELVIS AND RIGHT HIP REASON FOR EXAM: Female, 81 years old. Right hip replacement. TECHNIQUE: Radiological exam, hip, unilateral, with pelvis when performed; 2 or 3 views. COMPARISON: None. FINDINGS: Fluoroscopic imaging provided for right anterior total hip replacement. There is good alignment. RAD/Hip 1 view with Pelvis IMPRESSION: Right total hip replacement. There is good alignment. Electronically Signed: Darron Rojas MD at 14:58 EST Tel [phone], Service support , CC: Roma Grajeda DO; Barrie Huynh MD Head Cager: Signed THYROID STIM HORMONE Collected: 10/23/2017 Status: F Source: [place] (TSH) 12:15 PM [facility] REPOSITORY TYPE CODE TESTS RESULT OUT OF RANGE REFERENCE UNITS LAB L501.9520 0.358-3.74 uIU/mL Normal TSH 1.74 Performed By: #### L501.9520 #### [facility] [address] [place], [address] Observed: 10/23/2017 Status: F Source: [place] MRSA/SAID SCREEN 12:00 PM [facility] REPOSITORY MRSA/SAID SCRN S. AUREUS S. aureus Negative MRSA MRSA Negative Performed By: #### M100.651 #### [facility] [address] [place], [address] HISTORY AND PHYSICAL Observed: 10/22/2017 Status: F Source: [place] EXAM 5:29 PM [facility] REPOSITORY [facility] Medical Records Department [address] [place] [address] History and Physical 10/22/17 1721 MR#: [id number] Acct: [id number] Name: MARLI ROSALES Rep #: [id number] : 1935 81 From: Jani Nicholson PA-C PCP: Roma Grajeda DO Status: PRE IN Y [place] [facility] [place] and Physical DATE OF SERVICE: 11/07/2017 SCHEDULED PROCEDURE: Right hip hemiarthroplasty conversion to total hip replacement, anterior approach HISTORY OF PRESENT ILLNESS: This is an 81-year-old female who injured her right hip in March 2017 in which she sustained a displaced femoral neck fracture. Patient underwent a right hip hemiarthroplasty on March 10, 2017. Patient has had continued right hip pain. She is currently using a walker. She has been in physical therapy with minimal relief. Patient has increased pain in the right groin. She has difficult time with flexing her hip to get in and out of the car. She has difficult time with activities of daily living including tying her shoes and getting dressed. She has increased pain while laying down. Patient has had x-rays which does show complete loss of joint space and increased subchondral sclerosis on the acetabular side. There is early bony erosion of the acetabular side. After discussion with Dr. Jordon Huynh, the patient would like to proceed with a conversion of a hemiarthroplasty to a right total hip arthroplasty. Patient has medical history pertinent for hypertension and thyroid disease. She currently denies any chest pain, shortness of breath, fevers chills, recent infections. Patient has obtained surgical clearance from her primary care physician Dr. Grajeda. REVIEW OF SYSTEMS: ROS: Const: Reports hard of hearing and vision problems,Denies change in appetite, fever and weight change CV: Denies chest pain, heart murmur, irregular heartbeat and peripheral vascular disease. Resp: Reports cough, but denies asthma, pneumonia, sleep apnea, SOB, tuberculosis and wheezing. GI: Reports constipation, but denies diarrhea, difficulty swallowing, heartburn, nausea, bloody stools and vomiting. : . (F Genital Sx) Urinary: denies incontinence. Musculo: Reports leg swelling, limp, trouble walking and weakness. Skin: Denies Raynaud's, history of shingles and tattoo. Neuro: Reports difficulty with balance and tremor but denies ambulatory dysfunction, dizziness and numbness/tingling. Psych: Reports depression, but denies anxiety, insomnia, mental illness and stress. Sid/Lymph: Reports anemia and past transfusion, but denies bleeding/bruising tendency. Reviewed, no changes. PAST MEDICAL HISTORY: Advance Care Plan: Other Directive, LIVING WILL Effective Date: 05/09/2017 Other Directive, POA Effective Date: 05/09/2017 PMH: Medical Problems: Arthritis, High Blood Pressure, Thyroid Disease, Osteoporosis Accidents: Fracture - LT ANKLE Surgical Hx: Tonsillectomy - 1990 Tubal Ligation - (1958) Hysterectomy - (1977) Gallbladder - (1990) Appendectomy - (1955) Knee Arthroscopy RT - (1997) Knee Replacement RT - (2002) REVISION -2011 L-3, S-1 - (2011) RT Reverse Total Shoulder - (12/21/2015) [email or web address] LT Reverse Total Shoulder - (04/11/2016) [email or web address] RT TKR Revision - (09/06/2016) [email or web address] Hip Replacement RT - (03/10/2017) CLARA[facility] Anesthesia Complications: None Assistive Devices: Glasses, Hearing Aid, Walker Reviewed, no changes. SOCIAL HISTORY: SH: Marital: .Occupation: Retired.Work Status: Retired.Hand Dominance: Right-handed. Personal Habits: Cigarette Use: Never Smoked Cigarettes.Alcohol: Occasionally.Drug Use: Denies Use.Enjoy Exercising: Exercises 1-3 X/Week. Reviewed, no changes. VITALS: Ht: 58 Wt: 145lb Wt k.772 BMI: 30.3 BP: 100/62 Pulse: 68 Resp: 16 T: 98.7 T: 37.1C ALLERGIES: No Known Drug Allergy MEDICATIONS: Cabool 5-325 mg 1-2 by mouth every 6 hour as needed pain, Trazodone HCL 50 mg 1 by mouth every day, Acetaminophen 325 mg 1-2 tablets every 4-6 hours for pain, Lisinopril 20 mg 1 by mouth every day, Amlodipine Besylate 5 mg 1 by mouth every day, Vitamin D (Ergocalciferol) 62321 Unit one PO daily, Flonase Allergy Relief 50 mcg/Act use as directed, Zyrtec Allergy 10 mg one PO daily, Tramadol HCL 50 mg 1-2 by mouth every 6 hours as needed pain, Gabapentin 300 mg 1 by mouth three times a day, Hyoscyamine Sulfate 0.125 mg one PO daily, Iron 28 mg one PO daily, Myrbetriq 25 mg one PO daily, Methenamine Mandelate 0.5 gm one PO daily, Fosamax 70 mg one tab weekly, Miralax 3350 nf one a day., Levothyroxine Sodium 50 mcg 1 by mouth every day, Aspir-81 81 mg 1 by mouth every day, Colace 100 mg 1po qhs, Protien Shake 3D daily PRE-OP EXAM: General appearance:NORMAL Other: Eyes: Conjunctivae and lids: NORMAL Pupils: ERR Ears, Nose, Mouth, and Throat: NORMAL Other: Inspection of lips, teeth and gums: NORMAL Other: Neck: Examination of neck: no masses noted. Respiratory: Assessment of respiratory effort: NORMAL Other: Ausculation of lungs: clear to ausculation no wheeses, ronchi or rales. Cardiovascular: Ausculation of heart: regular rate and rhythem, no mummurs, gallops or rubs. Exam of carotid arteries: NORMAL Other: Gastrointestinal: Exam of abdomen: soft, nontender, nondistended bowel sounds present. Lymphatic: Palpation of nodes in neck: NORMAL Other: Palpation of nodes in Axillae: NORMAL Other: Neurological: see below Psychiatric: Orientation to time, place and person: NORMAL Other: Mood and affect: NORMAL Other: PHYSICAL EXAMINATION: Patient walks with an antalgic gait. Previous incision is well-healed without any erythema. Patient has tenderness to palpation of the lateral right hip. She does have groin pain with range of motion. Internal rotation to 30 and external rotation to 20 with flexion to 90 . Sensations intact to light touch IMAGING STUDIES: X-rays were obtained at [facility] [place] on September 28, 2017 which does show a stable right hip hemiarthroplasty. There is complete loss of joint space with increased subchondral sclerosis on the acetabular side. There is early bony erosion of the acetabular side. IMPRESSION: 1. Painful right hip hemiarthroplasty 2. Hypertension 3. Thyroid disease 4. Osteoporosis PLAN: Dr. Huynh did discuss and review with the patient all treatment options including surgical versus nonsurgical. Patient wishes to proceed with above- stated procedure. Potential risks, benefits, and complications of this procedure were discussed in detail including but not limited to , infection, nerve and blood vessel damage, persistent pain, numbness, tingling, paresthesias, blood clot, pulmonary embolism, and requirement for further surgery. The patient expressed full understanding has no further questions for the doctor. Patient does agree to proceed with the above-stated procedure and has signed the surgery consent form. ___ I have re-examined the patient. There are no clinical changes since date of exam. ___ See progress notes for changes. ___ Dictated on admission Date: Time: Signature: 10/22/17 1729 <Electronically signed by Jani Nicholson PA-C> Date Jani Nicholson PA-C [facility] Signature: Date (if applicable) CC: Roma Grajeda DO; Jani COOPER Signed ALBUMIN, SERUM Collected: 10/18/2017 Status: F Source: [place] 4:24 PM [facility] REPOSITORY TYPE CODE TESTS RESULT OUT OF RANGE REFERENCE UNITS LAB L501.1800 3.4-5.0 g/dL Normal ALB 4.0 Result Comment: Please note revised Albumin AND Globulin reference range effective 2017. Performed By: #### L501.1800 #### [facility] [address] [place], [address] Observed: 10/11/2017 Status: F Source: [place] CULTURE, URINE 2:52 PM [facility] REPOSITORY Urine Culture ORGANISM 1: Mixed Gram Pos AND Gram Neg Org [place] Count 25,000-50,000 MIX CULTURE Mixed contaminants. Submit a new specimen if indicated. Performed By: #### M100.0650 #### [facility] [address] [place], [address] BASIC METABOLIC Collected: 10/11/2017 Status: F Source: [place] PROFILE (BMP) 2:17 PM [facility] REPOSITORY TYPE CODE TESTS RESULT OUT OF RANGE REFERENCE UNITS LAB L501.0100 70-110 mg/dL Normal GLU 79 LAB L501.1000 7-18 mg/dL Normal BUN 16 LAB L501.1100 0.55-1.02 mg/dL Normal 0.73 CREAT,SERUM Result Comment: The validity of the calculated GFR AND GFRAA in patients over 70 years has not been determined. Clinical correlation is essential. LAB L501.1110 >60 mL/min Normal EST GFR 81 Result Comment: Non- GFR Calc LAB L501.1115 >60 mL/min Normal EST GFR - AA 98 Result Comment: GFR Calc LAB L501.1300 10-20 RATIO High BUN/CRE 21.8 LAB L501.2200 8.5-10.1 mg/dL CA Normal 8.8 LAB L501.5300 136-145 mmol/L Low NA 135 LAB L501.5600 3.5-5.1 mmol/L K Normal 4.1 LAB L501.5900 98-107 mmol/L CL Normal 104 LAB L501.6100 21.0-32.0 mmol/L Normal CO2 25.0 LAB L501.6200 5-15 Normal GAP 6 Performed By: #### L500.2500 #### [facility] [address] [place], [address] CBC W/DIFF, AUTOMATED Collected: 10/11/2017 Status: F Source: [place] 2:17 PM [facility] REPOSITORY TYPE CODE TESTS RESULT OUT OF RANGE REFERENCE UNITS LAB L100.1000 4.4-11.0 K/mm3 Normal WBC 6.1 LAB L100.1200 4.2-5.4 M/mm3 Low RBC 4.06 LAB L100.1300 12.0-15.0 g/dl Normal HGB 12.0 LAB L100.1400 37-47 % Normal HCT 38.9 LAB L100.1500 81-99 fL Normal MCV 95.8 LAB L100.1600 27.0-32.0 pg Normal MCH 29.6 LAB L100.1700 32-36 g/gl Low MCHC 30.8 LAB L100.1810 11.6-14.6 % Normal RDW CV 13.5 LAB L100.1820 35.1-43.9 fl High RDW SD 46.8 LAB L100.1900 150-450 K/mm3 Normal PLT 247 LAB L100.2000 6.2-12.0 fl Normal MPV 9.4 LAB L100.2100 47-70 % High NEUT% 70.8 LAB L100.2200 19-41 % Low LY% 16.9 LAB L100.2300 0-10 % Normal MONO% 6.2 LAB L100.2400 0-5 % High EO% 5.4 LAB L100.2500 0-1 % Normal BASO% 0.7 LAB L100.2550 0.0-0.9 % Normal IM GRAN % 0.000 Result Comment: IG% - Immature Granulocytes (promyelocytes, myelocytes and metamyelocytes) > 1% indicates that a LEFT SHIFT is Present. LAB L100.2620 2.0-7.7 X10 3/uL Normal Absolute Neut 4.3 LAB L100.2720 0.83-4.51 X10 3/ul Normal Absolute Lymph 1.03 Performed By: #### L100.0100 #### [facility] [address] [facility] [place], [address] ALLERGIES ALLERGIES DATE TYPE / CODE NAME / CODE REACTION SEVERITY SOURCE 09/01/2018 Drug grass sinus pressure Unknown [facility]/[id number]( pollen-cyrus [facility]) [facility]/0 Repository [id number](RXN ORM) 09/01/2018 Miscellaneous DUST sinus pressure Unknown [id number] 09/01/2018 Miscellaneous MOLD sinus pressure Unknown [facility]/[id number](S [facility] NOMED CT) Hospital Repository 09/01/2018 Drug lactose/F00 Food Allergy Unknown [facility]/[id number](S [id number](RXN [facility] NOMED CT) ORM) Hospital Repository 09/01/2018 Drug gluten/F006 Food Allergy Unknown [facility]/[id number](S [id number](RXNO [facility] NOMED CT) RM) Hospital Repository 02/08/2010 DRUG MOLD [facility] INGREDI/[id number]([place] [facility] NOMED CT) Repository ENCOUNTERS ENCOUNTERS ADMIT/DISCHARGE ACCOUNT ADMITTING ENCOUNTER LOCATION SOURCE NUMBER CLASS 09/05/2018 [id number] Ambulatory [facility] ing:MTRAD Repository 09/01/2018/09/01/20 [id number] Emergency [address] ing:ED Repository 08/27/2018 [id number] Ambulatory [facility] ing:HPRAD Repository 08/27/2018/08/27/20 [id number] Ambulatory BMSBuilding:B Heidi 18 [place].[facility] Repository 07/04/2018 [id number] Ambulatory [facility] ing:BFHLAB Repository 06/19/2018 [id number] [facility] ing:MTRAD Repository 06/06/2018 [id number] Ambulatory [facility] ing:BFHLAB Repository 05/27/2018/05/27/20 [id number] Ambulatory [address] [place] Repository 04/19/2018/04/19/20 [id number] Ambulatory [address] Repository 04/01/2018/04/22/20 [id number] Ambulatory [address] Repository 03/21/2018/03/21/20 [id number] Ambulatory BMSBuilding:B [place] 18 [place].[facility] Repository 12/25/2017 [id number] Ambulatory [facility] ing:BFHLAB Repository 11/13/2017/11/22/19 [id number] Kiel Son [facility] [address] [address] [facility] ing:TCURoom: Repository [id number]: 1 11/09/2017/11/13/19 [id number] Sementi, Inpatient Heidi Heidi 18 Sheila Encounter [facility] ing:KE4Lxiy: Repository [id number]: 1 11/09/2017 [id number] Sementi, Ambulatory BMSBuilding:B [place] Sheila MS.[facility] Repository 11/09/2017 [id number] Sementi, Ambulatory BMSBuilding:B Heidi Sheila [facility] Repository 11/09/2017 [id number] Sementi, Ambulatory BMSBuilding:B Heidi Sheila [facility] Repository 11/09/2017 [id number] Sementi, Ambulatory BMSBuilding:B Heidi Sheila [facility] Repository 11/09/2017 [id number] Sementi, Ambulatory BMSBuilding:B [place].[facility] Repository 11/07/2017/11/08/19 [id number] Amina, Inpatient [place] Heidi 18 Barrie Encounter [facility] ing:FO8Tehd: Repository [id number]: 1 10/18/2017 [id number] Ambulatory [facility] ing:MTLAB Repository 10/11/2017 [id number] Ambulatory [facility] ing:BFHLAB Repository PAYERS PAYERS ENCOUNTER GUARANTOR PAYER SUBSCRIBER SOURCE 09/05/2018 MARLI Rice Primary Insurance:MMO MARLI Gordon [id number] [facility] Number: [id number] [id number] Repository [address] [place] [address] Date:1321-64-97V[address] [address]Jkz: (341) [place], [place] [phone] (SZ) [address]WP: 09/05/2018 Secondary NOT GIVENUNK Heidi Insurance:SELF PAY [facility] Number: Effective Repository Date:2018-09-05 09/01/2018 MARLI Rice Primary Insurance:MMO MARLI Gordon [id number] MEDICAREPolicy SMITHDOB: [facility] Number: [id number] Hospital [id number] Repository [address] [place] [address] Date:3207-78-36[address] [address]Ecu: (330) [address] [place] [address] [phone] (HP) [address]HR: 09/01/2018 Secondary NOT GIVENUNK Heidi Insurance:SELF PAY [facility] Number: Effective Repository Date:2018-09-01 08/27/2018 MARLI Dwayne Primary Insurance:MMO MARLI Dwayne Gordon [id number] MEDICAREPolicy SMITHDOB: [facility] Number: [id number] Hospital [id number] Repository [address] [place] [address] Date:3726-95-26OC [address] [address]Adw: (330) [address], [place] [phone] (HP) [address]AW: 08/27/2018 Secondary NOT GIVENUNK [place] Insurance:SELF PAY [facility] Number: Effective Repository Date:2018-08-27 08/27/2018 MARLI ROSALES2452 Primary Insurance:MMO MARLIDESTINI ROSALESB: Heidi LÓPEZ [facility] [id number] [facility] Number: [address] [id number] Repository [address]Hnv: (330) Date:1116-35-02JM [phone] (HP) [address] [place] [address]AE: 08/27/2018 Secondary NOT GIVENUNK [place] Insurance:SELF PAY [facility] Number: Effective Repository Date:2018-08-27 07/04/2018 MARLI ROSALES2452 Primary Insurance:MMO MARLIDESTINI ROSALESB: Heidi LÓPEZ [facility] [id number] [facility] Number: [facility] [address] [id number] Repository [address]Tuv: (330) Date:7648-88-67PI [phone] (HP) [address] [address]IB: 07/04/2018 Secondary NOT GIVENUNK Heidi Insurance:SELF PAY [facility] Number: Effective Repository Date:2018-07-04 06/19/2018 MARLI ROSALES2452 Primary Insurance:MMO MARLIDESTINI ROSALESDOB: [place] MARIBEL MEDICAREPolicy [id number] [facility] WAYUNIT Number: Hospital [address], [place] [id number] Repository [address]Zhj: (330) Date:8874-52-02AQ [phone] () [address] [address]PU: 06/19/2018 Secondary NOT GIVENUNK [place] Insurance:SELF PAY [facility] Number: Effective Repository Date:2018-06-19 06/06/2018 MARLI ROSALES2452 Primary Insurance:MMO MARLI ROSALESDOB: Heidi LÓPEZ MEDICAREPolicy [id number] [facility] Number: Hospital [address], [place] [id number] Repository [address]Yna: (330) Date:0544-72-31KN [phone] () [address], [place] [address]WM: 06/06/2018 Secondary NOT GIVENUNK Heidi Insurance:SELF PAY [facility] Number: Effective Repository Date:2018-06-06 03/21/2018 MARLI ROSALES2452 Primary Insurance:MMO MARLI HOB: Heidi LÓPEZ MEDICAREPolicy [id number] [facility] WAY[facility] Number: Hospital [address], [place] [id number] Repository [address]Dqn: (330) Date:6772-08-82SQ [phone] () [address] [address]VZ: 03/21/2018 Secondary NOT GIVENUNK Heidi Insurance:SELF PAY [facility] Number: Effective Repository Date:2018-03-21 12/25/2017 MARLI ROSALES2452 Primary Insurance:MMO MARLIDESTINI ROSALESDOB: Heidi LÓPEZ MEDICAREPolicy [id number] [facility] WAY[facility] Number: Hospital [address], [place] [id number] Repository [address]Ghq: (330) Date:0338-81-49TY [phone] (HP) [address] [address]LR: 12/25/2017 Secondary NOT GIVENUNK [place] Insurance:SELF PAY [facility] Number: Effective Repository Date:2017-12-25 11/13/2017 MARLI ROSALES2452 Primary Insurance:MMO MARLIDESTINI ROSALESDOB: [place] MARIBEL MEDICAREPolicy [id number] [facility] WAYUNIT Number: Hospital [address] [place] [address] [id number] Repository [address]Wni: (330) Date:3475-79-08NY [phone] (HP) [address] [place] [address]HU: 11/13/2017 Secondary NOT GIVENUNK [place] Insurance:SELF PAY [facility] Number: Effective Repository Date:2017-11-13 11/09/2017 MARLIDESTINI [id number] Primary Insurance:MMO MARLI ROSALESDOB: [place] MARIBEL MEDICAREPolicy [id number] [facility] WAYUNIT Number: Hospital [address] [place] [address] [id number] Repository [address]Xjg: (330) Date:4601-06-27AL [phone] () [address] [place] [address]ET: 11/09/2017 Secondary NOT GIVENUNK Heidi Insurance:SELF PAY [facility] Number: Effective Repository Date:2017-11-09 11/09/2017 MARLIDESTINI [id number] Primary Insurance:MMO MARLI ROSALESDOB: [place] MARIBEL MEDICAREPolicy [id number] [facility] WAYUNIT Number: Hospital [address] [place] [address] [id number] Repository [address]Ppr: (330) Date:9558-30-03SY [phone] () [address] [place] [address]IX: 11/09/2017 Secondary NOT GIVENUNK [place] Insurance:SELF PAY [facility] Number: Effective Repository Date:2017-11-09 11/09/2017 MARLIDESTINI [id number] Primary Insurance:MMO MARLI HOB: Heidi LÓPEZ MEDICAREPolicy [id number] [facility] WAY[facility] Number: Hospital [address], [place] [id number] Repository [address]Efa: (330) Date:4806-11-67KR [phone] (HP) [address], [place] [address]UH: 11/09/2017 Secondary NOT GIVENUNK [place] Insurance:SELF PAY [facility] Number: Effective Repository Date:2017-11-09 11/09/2017 MARLI ROSALES2452 Primary Insurance:MMO MARLI HOB: Heidi LÓPEZ MEDICAREPolicy [id number] [facility] WAYUNIT Number: Hospital [address] [place] [address] [id number] Repository [address]Tqx: (330) Date:6288-74-65EG [phone] (HP) [address], [place] [address]UG: 11/09/2017 Secondary NOT GIVENUNK [place] Insurance:SELF PAY [facility] Number: Effective Repository Date:2017-11-09 11/09/2017 MARLI ROSALES2452 Primary Insurance:MMO MARLI HOB: Heidi LÓPEZ MEDICAREPolicy [id number] [facility] WAYUNIT Number: Hospital [address] [place] [address] [id number] Repository [address]Wun: (330) Date:8096-96-26CO [phone] (HP) [address] [place] [address]FA: 11/09/2017 Secondary NOT GIVENUNK Heidi Insurance:SELF PAY [facility] Number: Effective Repository Date:2017-11-09 11/09/2017 MARLI [id number] Primary Insurance:MMO MARLI HOB: Heidi LÓPEZ MEDICAREPolicy [id number] [facility] WAY[facility] Number: [address] [id number] Repository [address]Bcf: (330) Date:7698-56-26BX [phone] (HP) [address], [place] [address]HL: 11/09/2017 Secondary NOT GIVENUNK Heidi Insurance:SELF PAY [facility] Number: Effective Repository Date:2017-11-09 11/07/2017 MARLI ROSALES2452 Primary Insurance:MMO MARLI HOB: Heidi LÓPEZ MEDICAREPolicy [id number] [facility] WAY[facility] Number: Hospital [address], [place] [id number] Repository 360[address]Oxq: (330) Date:9127-22-92GB [phone] (HP) [address], [place] [address]ZJ: 11/07/2017 Secondary NOT GIVENUNK Heidi Insurance:SELF PAY [facility] Number: Effective Repository Date:2017-10-02 10/18/2017 MARLI ROSALES2452 Primary Insurance:MMO MARLI HOB: Heidi LÓPEZ [facility] [id number] [facility] WAY[facility] Number: Hospital [address], [place] [id number] Repository [address]Yxx: Date:2984-21-95VR [phone]~[address] [place] [address] -8 () [address]IZ: 10/18/2017 Secondary NOT GIVENUNK [place] Insurance:SELF PAY [facility] Number: Effective Repository Date:2017-10-18 10/11/2017 MARLI ORSALES2452 Primary Insurance:MMO MARLI HOB: Heidi LÓPEZ MEDICAREPolicy [id number] [facility] WAYUNIT Number: Hospital [address], [place] [id number] Repository [address]Cfv: Date:0854-48-32VD [phone]~330 [address], [place] -8 () [address]GB: 10/11/2017 Secondary NOT GIVENUNK Heidi Insurance:SELF PAY [facility] Number: Effective Repository Date:2017-10-11
== END ==
PROVIDERS: Family Provider Family Medicine; PCP Family Medicine; Referring Provider Anesthesiology Pain Medicine; Visit Provider Anesthesiology Pain Medicine
DX: M54.6 Pain in thoracic spine (principal); W19.XXXA Unspecified fall, initial encounter
CPT/HCPCS: 72072

== ENCOUNTER → 2018-09-26 15:22 | Outpatient (CLI) | payer MEDICARE, SELFPAY ==
[2018-09-01 14:05] VITALS: BMI 26.3
== END ==
PROVIDERS: Family Provider Family Medicine; PCP Family Medicine; Visit Provider Family Medicine
DX: N39.0 Urinary tract infection, site not specified (principal)
CPT/HCPCS: 87086; 87088

== ENCOUNTER → 2018-10-15 11:28 | Outpatient (CLI) | payer MEDICARE, SELFPAY ==
--- NOTE | 2018-10-15 | US_ITS ---
STUDY: RENAL ULTRASOUND - COMPLETE REASON FOR EXAM: Female, 82 years old. Chronic urinary tract infections. TECHNIQUE: Ultrasound evaluation of the kidneys was performed with real-time and static feldman-scale imaging. COMPARISON: None available. FINDINGS: RIGHT KIDNEY: Normal location of the right kidney, which is normal in size. The right kidney measures 8.8 cm. There is a normal cortex of the right kidney. There is no right renal mass or cyst. There are no right renal calculi. There is no right hydronephrosis. DISTAL RIGHT URETER: There is non-visualization of the distal right ureter. There is no demonstrated right ureterovesical junction calculus. There is no demonstrated right ureteral jet. LEFT KIDNEY: Normal location of the left kidney, which is normal in size. The left kidney measures 8.8 cm. There is a normal cortex of the left kidney. There is no left renal mass or cyst. There are no left renal calculi. There is no left hydronephrosis. DISTAL LEFT URETER: There is non-visualization of the distal left ureter. There is no demonstrated left ureterovesical junction calculus. There is a visualized left ureteral jet. BLADDER: There is a prevoid bladder volume of 158 cc. There is a post void bladder volume of 58 cc. US/Kidney and Bladder IMPRESSION: Normal kidneys. No hydronephrosis. Postvoid bladder volume of 58 cc. Electronically Signed: Barrie Champion, at 15:01 EST Tel , Service support ,
== END ==
PROVIDERS: Family Provider Family Medicine; PCP Family Medicine; Referring Provider Urology; Visit Provider Urology
DX: N39.0 Urinary tract infection, site not specified (principal)
CPT/HCPCS: 76770

== ENCOUNTER 2018-11-12 11:25 | Day surgery (SDC) | payer MEDICARE, SELFPAY ==
[2018-11-12] VITALS (7 sets, daily range): BP systolic 88–127; BP diastolic 52–70; PULSE 63–72; RESP 16–18; TEMP 36.1–37; O2SAT 93–100; BMI 31.7
[2018-11-12 12:13] LABS: Hematocrit 37.3 % (37-47); Hemoglobin 11.6 g/dl (12.0-15.0); Mean Corp Hgb Conc 31.1 g/gl (32-36); Mean Corpuscular Volume 99.7 fL (81-99); Mean Platelet Vol. 9.5 fl (6.2-12.0); Platelet Count 169 K/mm3 (150-450); RBC Distribution Width CV 13.1 % (11.6-14.6); Red Blood Count 3.74 M/mm3 (4.2-5.4); White Blood Count 4.9 K/mm3 (4.4-11.0)
[2018-11-12 12:14] LABS: Scan Indicated on CBC? Y/N NO
[2018-11-12 12:28] LABS: Partial Thromboplast Time 27.5 Seconds (24.1-36.2)
--- NOTE | 2018-11-12 12:33 | PCM.DC.URO ---
Discharge Diet: No Restrictions Discharge Activity: May not drive while taking narcotic pain medications., May Shower May resume sexual activity in: 2 weeks Call your doctor if you observe: Fever of 101 or Higher, Inability to urinate, Shortness of breath, Chest pain, Calf discomfort, Uncontrolled pain Allergies/Adverse Reactions: Allergies grass pollen-perennial rye, standar [grass poll-perennial rye,std] Allergy (Verified 11/05/18 14:00) sinus pressure gluten Adverse Reaction (Verified 11/05/18 14:00) Food Allergy lactose Adverse Reaction (Verified 11/05/18 14:00) Food Allergy DUST Allergy (Uncoded 11/05/18 14:00) sinus pressure MOLD Allergy (Uncoded 11/05/18 14:00) SINUS PRESSURE Medications to take at Discharge Amlodipine [Norvasc] 5 mg PO DAILY 12/31/14 Gabapentin [Neurontin] 300 mg PO TID 12/31/14 Levothyroxine [Synthroid] 50 mcg PO DAILY 12/31/14 Lisinopril [Zestril] 20 mg PO DAILY 12/31/14 traZODone [Desyrel] 50 mg PO QHS 12/31/14 Guaifenesin [Mucinex] 600 mg PO BID PRN PRN 08/25/16 Polyethylene Glycol 3350 [Miralax] 17 gm PO DAILY 08/25/16 Cetirizine HCl [Zyrtec] 10 mg PO PRN PRN 03/09/17 Fluticasone 0.05% [Flonase Nasal [place]] 2 spray NASAL QHS 03/09/17 Cholecalciferol (Vitamin D3) [Vitamin D3] 5,000 unit PO DAILY 10/23/17 Docusate Sodium [Stool Softener] 100 mg PO QHS 10/23/17 Ferrous Sulfate 325 mg PO DAILY@0800 10/23/17 Hyoscyamine Sulfate 0.125 mg SL PRN PRN 10/23/17 Simethicone [Gas Relief] 125 mg PO PRN PRN 10/23/17 Smz/Tmp Ds [Bactrim Ds] 1 tab PO BID #14 tab 09/01/18 Amitriptyline HCl 25 mg PO QHS 11/05/18 Azelastine HCl [Astelin] 2 spray NASAL DAILY 11/05/18 Lidocaine [Lidoderm Patch] 1 patch TOPICAL DAILY PRN 11/05/18 Pantoprazole Sodium [Protonix] 20 mg PO BID 11/05/18 Orders to be completed after discharge: Basic Metabolic Profile (BMP) Time Frame: 11/12/18, Location: Laboratory Thyroid Stim Hormone (TSH) Time Frame: 11/12/18, Location: Laboratory Primary Care Physician: Roma Grajeda DO [Primary Care Provider] - Test Results: Test results from this visit will be discussed in further detail at your follow-up appointment, if applicable. Please Follow Up With: Lorena Gutierrez MD When: 1 week, call office for appt. Proposed Discharge Date: 11/12/18
--- NOTE | 2018-11-12 12:34 | PCM.OPRPT ---
Problem List (1) Recurrent UTI Status: Acute (2) Bladder neoplasm of uncertain malignant potential Status: Acute Report of Operation Date of Procedure: 11/12/18 Pre-Operative Diagnosis: recurrent UTI, bladder neoplasm with uncertain malignant potential. Post-Operative Diagnosis: same Surgery/Procedure Performed:: cystoscopy, bladder biopsy with fulguration Description of Surgical Findings:: 4 areas consistent with ulceration/chronic inflammation. One area concerning for possible malignancy. Very thin bladder wall. Cystocele. Type of Anesthesia:: MAC Special Medications: ancef Specimen's removed: bladder biopsy Description of Procedure: The patient is an 82-year-old female that I saw in the office in evaluation for recurrent urinary tract infections. During this evaluation she underwent a cystoscopy which revealed several areas of erythema one specifically on the area of the posterior bladder wall concerning for neoplasia. After discussing all the risks benefits and alternatives, I obtained informed consent for cystoscopy bladder biopsy with fulguration. Patient was taken to the operating room placed on the operating room table. Anesthesia monitored the head, neck, airway, IV access, vital signs throughout the case. Once anesthesia was probably administered the patient was placed in dorsal lithotomy position was prepped and draped in usual sterile fashion. A cystourethroscopy was performed under direct visualization revealing the same areas of concern in the office. One was on the posterior bladder wall approximately 1.5 cm in diameter. This area was most concerning for neoplastic process. There were 3 other lesions identified one on each lateral bladder wall and one of further cephalad consistent with ulceration. A total of 3 biopsies were taken and these areas were fulgurated for hemostatic control and tissue treatment. At the conclusion of the case, there were no complications during the procedure. The patient was awakened and taken to recovery room in good condition. Grafts/Implants Used: none - Complications none - Admit VTE Documentation VTE Present on Admission: Yes VTE Mechan Device Prophylaxis: SCD's VTE Pharm Prophylaxis ordered?: No Reason prophylaxis not ordered:: Treatment Not Indicated
[2018-11-12] MEDS: Cefazolin 2 GM in 0.9% Normal Saline 100 ML IV (12:37)
[2018-11-12] MEDS: Lubricating Jelly 60 GM Tube 30 GM TOPICAL (12:40)
[2018-11-12 12:48] LABS: Anion Gap 7 (5-15); BUN 26 mg/dL (7-18); BUN/Creat Ratio 21.7 RATIO (10-20); Calcium,Total 9.1 mg/dL (8.5-10.1); Chloride 105 mmol/L (98-107); EST Glomerular Filtration Rate 46 mL/min (>60); Est Glom Filt Rate - Afr Amer 55 mL/min (>60); Estimated Creatinine Clearance 41.44 ml/min; Glucose 75 mg/dL (74-106); Sodium Level 134 mmol/L (136-145); Thyroid Stim Hormone (TSH) 4.42 uIU/mL (0.358-3.74)
--- NOTE | 2018-11-12 13:05 | BLA_PTH ---
PATIENT: KAELA ALDANA LOC: [facility] [place] U[place][id number] AGE/SX: 82/F ROOM: RE11/12/[address]: Dr. Lorena Gutierrez MD : [id number] BED: DIS: 11/12/2018 SPEC #: [id number] RECD: 11/12/18 13:29 STATUS: DOUG LUIS #: [id number] SOCORRO: 11/12/18 13:[address]: Lorena Gutierrez DEPT: SURGICAL PATHOLOGY RECD BY: Dimas Mauricio ENTERED: 11/12/18 13:55 SP TYPE: BLADDER BX OTHR DR: Dr. Roma Grajeda DO Tissues: Urinary bladder, NOS Procedures: Surgery Specimen Level IV HEADER OPERATION: Cysto, bladder biopsy, fulguration PRE-OP DIAGNOSIS: Neoplasm of uncertain behavior of bladder, UTI, urge incontinence, frequency of micturition, cystocele midline, vaginal enterocele, postmenopausal atrophic vaginitis TISSUE SUBMITTED: Bladder biopsy MICROSCOPIC DIAGNOSIS Urinary bladder, biopsy: Granulation with associated chronic inflammation. No evidence of malignancy. AM:corwin 11/13/18 COMMENT Clinical correlation is suggested. MICROSCOPIC DESCRIPTION Slides are reviewed. GROSS DESCRIPTION Received in fixative is one container labeled with the patient's name and designated bladder biopsy. The specimen consists of two irregular fragments of light carpio soft tissue that in aggregate measure 0.3 x 0.2 x <0.1 cm. The specimen is totally submitted in one cassette. / AM:corwin 11/12/18 TC:3 CPT: 17571
== END 2018-11-12 14:28 | disposition home or self-care (01) ==
LOC: SDC 11:25 → AC 11:26
PROVIDERS: Anesthesiology; Family Provider Family Medicine; PCP Family Medicine; Referring Provider Urology; Visit Provider Urology
PROC: 0TBB8ZX Excision of Bladder, Via Natural or Artificial Opening Endoscopic, Diagnostic (ICD-10-PCS; CPT 52234; principal; 2018-11-12 12:55)
DX: D30.3 Benign neoplasm of bladder (principal); Z87.440 Personal history of urinary (tract) infections; F32.9 Major depressive disorder, single episode, unspecified; Z79.899 Other long term (current) drug therapy; K21.9 Gastro-esophageal reflux disease without esophagitis; I10 Essential (primary) hypertension; D64.9 Anemia, unspecified; E03.9 Hypothyroidism, unspecified; M81.0 Age-related osteoporosis without current pathological fracture; N39.41 Urge incontinence; R35.0 Frequency of micturition; N95.2 Postmenopausal atrophic vaginitis; N81.5 Vaginal enterocele; N81.11 Cystocele, midline
CPT/HCPCS: 00912; 52234; 36415; 80048; 84443; 85027; 85610; 85730; 88305; J7120

== ENCOUNTER 2019-02-17 10:56 | Emergency (ER) | payer MEDICARE, SELFPAY ==
[2019-02-17 10:13] VITALS: BMI 31.7
[2019-02-17 10:57] VITALS: BP 136/69; PULSE 99; RESP 18; TEMP 36.9; O2SAT 98; BMI 30.2
--- NOTE | 2019-02-17 11:21 | EKG12_ITS ---
Test Reason : CP Blood Pressure : / mmHG Vent. Rate : 092 BPM Atrial Rate : 092 BPM P-R Int : 162 ms QRS Dur : 080 ms QT Int : 384 ms P-R-T Axes : 059 -25 026 degrees QTc Int : 474 ms Normal sinus rhythm Minimal voltage criteria for LVH, may be normal variant Possible Anterior infarct , age undetermined Abnormal ECG Confirmed by MEERA LE, NAVEEN ([id number]), graphics editor JOSE G ELIZABETH ([id number]) on 02/19/2019 1:37:49 PM Referred By: Barrie Machuca Confirmed By:NAVEEN ESTES MD
--- NOTE | 2019-02-17 11:38 | ED.DCSUM_ITS ---
History of Present Illness Chief Complaint: Chest Other Informant: Patient, Significant Other Onset: Today - 07 Context: Sudden Onset Timing: Continuous Quality: Burning sensation with radiation now to the anterior right neck Location: Right-sided chest Current Severity: Mild Maximum Severity: Moderate Worsened by: Walking up incline to go to [facility] clinic and emergency department Relieved by: Nothing Associated Symptoms: dyspnea on exertion shortness of breath Narrative: Patient is an elderly woman who went to the now clinic because of right-sided chest pain or shortness of breath. There is no history of pneumothorax or hemothorax. She has no respiratory symptoms. She has no known history of coronary disease. She has no symptoms to suggest claudication of her lower extremities. She states this morning at 0730 she developed a burning sensation anterior right chest that now radiates to the right anterior neck. She complained of dyspnea walking to the radiologist read for x-ray that was ordered at the [facility]. She reports increased shortness of breath and possibly worsening of her chest discomfort going up the incline to get into the emergency department. She had no associated symptoms. Prior similar symptoms: No Recent Illness/Hospitalization: No - Past Medical History (1) Acute gastritis Status: Acute (2) Anemia due to blood loss Status: Acute (3) Bladder neoplasm of uncertain malignant potential Status: Acute (4) Asthma Status: Chronic (5) Hypertension Status: Chronic (6) Hypothyroidism Status: Chronic (7) Osteoarthritis of right hip Status: Chronic Past Medical History - Allergies and Home Meds Allergies/Adverse Reactions: Allergies grass pollen-perennial rye, standar [grass poll-perennial rye,std] Allergy (Verified 02/17/19 10:59) sinus pressure gluten Adverse Reaction (Verified 02/17/19 10:59) Food Allergy lactose Adverse Reaction (Verified 02/17/19 10:59) Food Allergy DUST Allergy (Uncoded 02/17/19 10:59) sinus pressure MOLD Allergy (Uncoded 02/17/19 10:59) SINUS PRESSURE Primary Care Physician: Roma Grajeda DO [Primary Care Provider] - Prior records reviewed: Yes Surgical History: cholecystectomy, total hip arthroplasty - Right, 11/07/[address] Huynh., - - both shoulders,back knee and shoulders,eye surgeries, right knee surgery. Lives: Spouse/ Significant Other Smoking Status: Never smoker Alcohol: None - Family History Maternal Family History: Reports: - - bowel cancer Paternal Family History: Reports: - - chronic lung disease Review of Systems General: Denies: Chills, Fever, Sweats Eyes: Denies: Visual changes - bilaterally, Diplopia ENT: Denies: Rhinorrhea, Sore throat Cardiovascular: Reports: Chest pain. Denies: Palpitations, Heart racing, -, - Respiratory: Reports: Dyspnea, Dyspnea on exertion. Denies: Cough, Sputum, Orthopnea, Paroxysmal nocturnal dyspnea, -, - Gastrointestinal: Denies: Abdominal pain, Nausea, Vomiting, Diarrhea, Melena, Hematochezia Genitourinary: Denies: Dysuria, Hematuria, Frequency Musculoskeletal: Denies: Back pain, Extremity Pain Skin: Denies: Rash, Wounds Neurological: Denies: Headache, Weakness, Numbness Psych: Denies: Depression, Anxiety Endocrine: Denies: Heat intolerance, Cold intolerance Hematologic: Denies: Easy bruising, Easy bleeding Physical Exam Vital Signs/Narrative: Vital Signs Temp Pulse Resp BP Pulse Ox 02/17/19 10:57 98.5 F 99 18 136/69 H 98 Inital Vital Signs reviewed: Yes General: Well nourished, Well developed, No Acute Distress Head: Normocephalic, Atraumatic Eyes: Perrl, EOMI ENT: Moist mucous membranes, No rhinorrhea Neck: Supple, Nontender Cardiovascular: Regular rate, Regular rhythm, No murmurs, Normal S1, Normal S2 Respiratory: No distress, CTA bilaterally, Chest nontender Abdomen: Soft, Nontender, Nondistended, Normal bowel sounds, No masses. Negative for: Hepatomegaly, Splenomegaly Back: Nontender, Normal Inspection Extremities: Nontender, No edema, - - There is no asymmetry, swelling, discoloration, leg vein distention, palpable cords or tenderness along the distribution of the deep venous system. Skin: Normal color, No rash. Negative for: Cyanosis, Jaundice Neurological: Alert, Oriented x3, Cranial nerves II-XII grossly intact, Normal Strength, Normal Sensation Psychological: Normal affect, Normal Mood Diagnostic/Tx/Re-eval Laboratory Results 02/17/19 02/17/19 02/17/19 11:38 11:38 14:18 WBC 8.5 RBC 3.61 L Hgb 11.1 L Hct 34.0 L MCV 94.2 MCH 30.7 MCHC 32.6 RDW 12.9 RDW Differential 42.9 Plt Count 190 MPV 9.0 Immature Gran % (Auto) 0.200 Neut % (Auto) 78.4 H Lymph % (Auto) 9.1 L Rock % (Auto) 11.4 H Eos % (Auto) 0.7 Baso % (Auto) 0.2 Absolute Neuts (auto) 6.6 Absolute Lymphs (auto) 0.77 L Total Counted Not Reportable Sodium 137 Potassium 3.8 Chloride 103 Carbon Dioxide 26.0 Anion Gap 8 BUN 19 H Creatinine 0.71 Estim Creat Clear Calc 46.42 Est GFR (MDRD) Af Amer 101 Est GFR (MDRD) Non-Af 84 BUN/Creatinine Ratio 26.7 H Glucose 92 Calcium 8.7 Troponin I < 0.015 < 0.015 - EKG Initial EKG Interpretation: Sinus Rhythm - Ventricular rate is 92. DC interval, QRS duration, QT interval and axis are normal. There is evidence of decreased anterior force. There is also artifact in leads V5 and V6. There is no acute ischemic changes noted. - Medical Decision Making With burning chest pain that is different than her reflux pain and the fact that she remains of dyspnea exertion and now pain radiating to the right side will order EKG, chest x-ray and appropriate blood work. Since chest x-ray was obtained as an outpatient earlier today will review films and interpret if it has not been triggered by radiologist. Differential is cardiac versus noncardiac pain. Noncardiac pain would be pulmonary, GI and specifically reflux. Concerned this may represent cardiac since she is complaining of dyspnea on exertion and slight worsening of her pain with ambulation. With normal EKG no ischemic changes and a delta 3-hour troponin VIII hours after onset of pain negative will discharge to home to follow-up with her primary care physician. Patient had resolution of her symptoms prior to administration of nitroglycerin. Patient was seen ambulating to the restroom. She does not appear tachypnic and she did not complain that she was short of breath. ED Disposition - Plan for ED Patient: Disposition: Home or Assisted Living Diagnosis: Right-sided chest pain, Dyspnea on effort Instructions: ED Chest Pain Atypical Unkn Cause Referrals: Roma Grajeda DO [Primary Care Provider] - 3-5 Days
[2019-02-17 11:45] LABS: Absolute Lymphocyte Count 0.77 X10^3/ul (0.83-4.51); Absolute Neutrophil Count 6.6 X10^3/uL (2.0-7.7); Basophil# 0.02 X10^3/uL; Basophil% 0.2 % (0-1); Eosinophil# 0.06 X10^3/uL; Eosinophils% 0.7 % (0-5); Hemoglobin 11.1 g/dl (12.0-15.0); Lymphocyte # 0.77 X10^3/ul (4.0); Lymphocyte % 9.1 % (19-41); Mean Corp Hgb Conc 32.6 g/gl (32-36); Mean Corpuscular Hgb 30.7 pg (27.0-32.0); Mean Corpuscular Volume 94.2 fL (81-99); Monocyte# 0.97 X10^3/uL; Monocyte% 11.4 % (0-10); Neutrophil # 6.64 X10^3/uL (2.7-7.7); Neutrophil % 78.4 % (47-70); POSITIVE COUNT NO; POSITIVE DIFFERENTIAL NO; POSITIVE MORPHOLOGY NO; Platelet Count 190 K/mm3 (150-450); RBC Distribution Width CV 12.9 % (11.6-14.6); RBC Distribution Width SD 42.9 fl (35.1-43.9); Red Blood Count 3.61 M/mm3 (4.2-5.4); White Blood Count 8.5 K/mm3 (4.4-11.0)
[2019-02-17 12:04] LABS: Anion Gap 8 (5-15); BUN 19 mg/dL (7-18); BUN/Creat Ratio 26.7 RATIO (10-20); Calcium,Total 8.7 mg/dL (8.5-10.1); Chloride 103 mmol/L (98-107); Creatinine, Serum 0.71 mg/dL (0.55-1.02); EST Glomerular Filtration Rate 84 mL/min (>60); Est Glom Filt Rate - Afr Amer 101 mL/min (>60); Estimated Creatinine Clearance 46.42 ml/min; Glucose 92 mg/dL (74-106); Potassium 3.8 mmol/L (3.5-5.1); Sodium Level 137 mmol/L (136-145)
[2019-02-17] MEDS: Aspirin 81 MG TAB.CHEW 324 MG PO (12:04)
[2019-02-17] MEDS: Nitroglycerin SL (ED/IMG/CATH) 0.4 MG TABLET SUBLINGUAL (12:05)
[2019-02-17 12:07] VITALS: BP 134/75; PULSE 91; RESP 18; O2SAT 97
[2019-02-17 14:09] VITALS: BP 125/72; O2SAT 98
== END 2019-02-17 15:32 | disposition home or self-care (01) ==
PROVIDERS: Emergency Provider Emergency Medicine; Family Provider Family Medicine; PCP Family Medicine
DX: R07.89 Other chest pain (principal); R06.09 Other forms of dyspnea; J45.909 Unspecified asthma, uncomplicated; I10 Essential (primary) hypertension; E03.9 Hypothyroidism, unspecified; M16.11 Unilateral primary osteoarthritis, right hip; D50.0 Iron deficiency anemia secondary to blood loss (chronic); K21.9 Gastro-esophageal reflux disease without esophagitis; Z87.19 Personal history of other diseases of the digestive system; Z90.49 Acquired absence of other specified parts of digestive tract; Z79.899 Other long term (current) drug therapy
CPT/HCPCS: 71046; 80048; 84484; 85025; 93005; 99285; A4216

== ENCOUNTER → 2019-02-17 | Outpatient (CLI) | payer MEDICARE, SELFPAY ==
[2019-02-17 10:13] VITALS: BMI 31.7
--- NOTE | 2019-02-17 10:22 | RAD_ITS ---
STUDY: X-RAY CHEST REASON FOR EXAM: Female, 83 years old. Fever. TECHNIQUE: PA and lateral views of the chest. COMPARISON: Comparison is made with prior study dated November 09, 2017. FINDINGS: Mild increased markings at the lung bases suggestive of bibasilar scarring and/or atelectasis. There is no demonstrated pleural abnormality. Normal size heart. Normal mediastinum and alex. Normal visualized pulmonary arteries. There is atherosclerotic calcification of the aortic arch with tortuosity. There are diffuse degenerative changes of the visualized thoracic spine. Increased kyphosis. Healed right rib fractures. Status post bilateral reverse shoulder replacement. Evidence of prior cholecystectomy. RAD/Chest PA and Lateral IMPRESSION: Mild increased markings at the lung bases suggestive of atelectasis and/or scarring. Healed right rib fractures. Electronically Signed: Darron Rojas, at 10:42 EDT , Service support ,
== END | disposition home or self-care (01) ==
PROVIDERS: Family Provider Family Medicine; PCP Family Medicine; Referring Provider Physician Assistant; Visit Provider Physician Assistant
DX: R07.89 Other chest pain (principal)
CPT/HCPCS: 71046

== ENCOUNTER → 2019-02-20 | Outpatient (CLI) | payer MEDICARE, SELFPAY ==
[2019-02-17 10:57] VITALS: BMI 30.2
--- NOTE | 2019-02-20 16:22 | RAD_ITS ---
HISTORY: neck pain posterior on the right side EXAM/TECHNIQUE: XR Spine Cervical 4 or 5 Views: COMPARISON: None. FINDINGS: # of images incl. paperwork: 6 No fracture or dislocation or osseous destruction. Alignment anatomic. Marked disc and facet degeneration from C3-C7. Moderate to severe bony encroachment upon the right C4-5 and C5-6 foramina. No acute findings in the soft tissues. Bilateral shoulder arthroplasties partially visible. Atherosclerosis thoracic aorta. RAD/Cerv Spine 4 or 5 Views IMPRESSION: No acute findings. Marked disc and facet degeneration from C3-C7. at 2224 Reported and signed by: Bhupinder Perry MD Electronically Signed: Bhupinder Perry, at 22:23 EDT Tel , Service support ,
== END | disposition home or self-care (01) ==
LOC: MTRAD 16:20
PROVIDERS: Family Provider Family Medicine; PCP Family Medicine; Referring Provider Nurse Practitioner Family; Visit Provider Nurse Practitioner Family
DX: M54.2 Cervicalgia (principal)
CPT/HCPCS: 72050

== ENCOUNTER → 2019-02-24 | Outpatient (CLI) | payer MEDICARE, SELFPAY ==
[2019-02-17 10:57] VITALS: BMI 30.2
[2019-02-24 18:02] LABS: BNP,B-Type NATRIURETIC PEPTIDE 162.6 pg/mL (0-100)
[2019-02-24 18:03] LABS: Absolute Lymphocyte Count 1.11 X10^3/ul (0.83-4.51); Absolute Neutrophil Count 3.5 X10^3/uL (2.0-7.7); Basophil# 0.03 X10^3/uL; Basophil% 0.6 % (0-1); Eosinophil# 0.24 X10^3/uL; Eosinophils% 4.4 % (0-5); Lymphocyte # 1.11 X10^3/ul (4.0); Lymphocyte % 20.4 % (19-41); Mean Corp Hgb Conc 31.4 g/gl (32-36); Mean Corpuscular Hgb 30.1 pg (27.0-32.0); Mean Corpuscular Volume 95.9 fL (81-99); Mean Platelet Vol. 9.3 fl (6.2-12.0); Monocyte# 0.56 X10^3/uL; Monocyte% 10.3 % (0-10); Neutrophil # 3.48 X10^3/uL (2.7-7.7); Neutrophil % 64.1 % (47-70); POSITIVE COUNT NO; POSITIVE DIFFERENTIAL NO; POSITIVE MORPHOLOGY NO; Platelet Count 345 K/mm3 (150-450); RBC Distribution Width CV 12.9 % (11.6-14.6); RBC Distribution Width SD 43.4 fl (35.1-43.9); Red Blood Count 3.65 M/mm3 (4.2-5.4); White Blood Count 5.4 K/mm3 (4.4-11.0)
[2019-02-24 18:26] LABS: ALB/GLOB Ratio 0.8 RATIO (0.9-2.4); AST(SGOT) 28 U/L (15-37); Alanine Aminotransfer ALT/SGPT 65 U/L (13-56); Albumin, Serum 3.2 g/dL (3.2-5.0); Alkaline Phosphatase 139 U/L (45-117); Anion Gap 9 (5-15); BUN 17 mg/dL (7-18); BUN/Creat Ratio 20.9 RATIO (10-20); Calcium,Total 9.1 mg/dL (8.5-10.1); Chloride 98 mmol/L (98-107); Creatinine, Serum 0.81 mg/dL (0.55-1.02); EST Glomerular Filtration Rate 72 mL/min (>60); Est Glom Filt Rate - Afr Amer 87 mL/min (>60); Free T3 2.4 pg/mL (2.18-3.98); Globulin 4.2 g/dL (2.2-4.2); Glucose 75 mg/dL (74-106); Potassium 4.2 mmol/L (3.5-5.1); Protein, Total 7.4 g/dL (6.4-8.2); Sodium Level 135 mmol/L (136-145); T4 Free Direct 1.11 ng/dL (0.76-1.46); Thyroid Stim Hormone (TSH) 2.33 uIU/mL (0.358-3.74)
== END | disposition home or self-care (01) ==
PROVIDERS: Family Provider Family Medicine; PCP Family Medicine; Referring Provider Family Medicine; Visit Provider Family Medicine
DX: E03.9 Hypothyroidism, unspecified (principal); R53.83 Other fatigue; R60.9 Edema, unspecified; Z51.81 Encounter for therapeutic drug level monitoring
CPT/HCPCS: 36415; 80053; 83880; 84439; 84443; 84481; 85025

== ENCOUNTER → 2019-05-08 | Outpatient (CLI) | payer MEDICARE, SELFPAY ==
[2019-05-08 15:35] LABS: Absolute Lymphocyte Count 0.82 X10^3/uL (0.83-4.51); Absolute Neutrophil Count 4.4 X10^3/uL (2.0-7.7); Basophil# 0.04 X10^3/uL; Basophil% 0.7 % (0-1); Eosinophil# 0.17 X10^3/uL; Eosinophils% 2.9 % (0-5); Hematocrit 36.7 % (37-47); Hemoglobin 11.7 g/dL (12.0-15.0); Lymphocyte # 0.82 X10^3/ul (4.0); Lymphocyte % 13.8 % (19-41); Mean Corp Hgb Conc 31.9 g/dL (32-36); Mean Corpuscular Hgb 30.9 pg (27.0-32.0); Mean Corpuscular Volume 96.8 fL (81-99); Mean Platelet Vol. 9.8 fl (6.2-12.0); Monocyte% 8.4 % (0-10); NRBC Flagged by Analyzer 0 % (0-5); Neutrophil # 4.42 X10^3/uL (2.7-7.7); Platelet Count 260 K/mm3 (150-450); RBC Distribution Width CV 12.8 % (11.6-14.6); RBC Distribution Width SD 44.9 fl (35.1-43.9); Red Blood Count 3.79 M/mm3 (4.2-5.4)
[2019-05-08 16:31] LABS: AST(SGOT) 18 U/L (15-37); Alanine Aminotransfer ALT/SGPT 18 U/L (13-56); Albumin, Serum 3.7 g/dL (3.2-5.0); Alkaline Phosphatase 60 U/L (45-117); Anion Gap 5 (5-15); BUN 18 mg/dL (7-18); BUN/Creat Ratio 20.8 RATIO (10-20); Calcium,Total 9.2 mg/dL (8.5-10.1); Chloride 103 mmol/L (98-107); Creatinine, Serum 0.86 mg/dL (0.55-1.02); EST Glomerular Filtration Rate 67 mL/min (>60); Est Glom Filt Rate - Afr Amer 81 mL/min (>60); Ferritin 205 ng/mL (8-252); Globulin 3.7 g/dL (2.2-4.2); Glucose 63 mg/dL (74-106); Iron 86 ug/dL (50-170); Potassium 3.7 mmol/L (3.5-5.1); Protein, Total 7.4 g/dL (6.4-8.2); Sodium Level 136 mmol/L (136-145)
== END | disposition home or self-care (01) ==
LOC: BFHLAB 11:46
PROVIDERS: Family Provider Family Medicine; PCP Family Medicine; Visit Provider Family Medicine
DX: D64.9 Anemia, unspecified (principal); E61.1 Iron deficiency; Z51.81 Encounter for therapeutic drug level monitoring
CPT/HCPCS: 36415; 80053; 82728; 83540; 85025

== ENCOUNTER → 2019-05-13 | Outpatient (CLI) | payer MEDICARE, SELFPAY ==
--- NOTE | 2019-05-13 12:49 | CT_ITS ---
STUDY: CT ABDOMEN AND PELVIS WITH CONTRAST REASON FOR EXAM: Female, 83 years old. Abdominal pain. GI bleed. History of hysterectomy with bilateral oophorectomy, cholecystectomy and appendectomy. History of back surgery. RADIATION DOSAGE (If Supplied By Facility): CTDIvol = ( 15.93 ) mGy, DLP = ( 768.24 ) mGycm TECHNIQUE: Transaxial images were obtained from the dome of the diaphragm to the symphysis pubis without oral contrast. 100mL IV/Oral Isovue 300 was administered. Sagittal and coronal images were reconstructed. Individualized dose optimization techniques were used for this CT. COMPARISON: Renal ultrasound, October 15, 2018. FINDINGS: There are emphysematous changes at the lung bases. There is no evidence of mass. The visualized portions of the heart are within normal limits. Coronary artery calcification. There are calcified lymph nodes in the posterior mediastinum and right hilum. Old right rib fractures are also noted. Normal liver. There are surgical clips in the gallbladder fossa consistent with a prior cholecystectomy. There are multiple benign calcified granulomata of the spleen. There is partial fatty replacement of the pancreas without mass. Normal bilateral adrenal glands. Normal right kidney. Normal left kidney. Normal bilateral ureters. Type I hiatal hernia. The distal stomach is unremarkable. Normal small intestine. There is scattered sigmoid diverticuli without acute inflammatory change. The proximal colon is unremarkable. There is non-visualization of the appendix. There is diffuse atherosclerotic calcification of the abdominal aorta, without a demonstrated aneurysm. Normal inferior vena cava. Normal retroperitoneum. Normal urinary bladder. The uterus and ovaries are absent. There is a pessary in the vaginal vault. There is no pelvic lymphadenopathy. No free air or free fluid is seen within the peritoneal cavity. There is a small umbilical hernia of omental fat. There is a small left inguinal hernia of omental fat. The abdominal wall is otherwise unremarkable. There is stranding versus scarring in the midline upper back at the level of L3 where there is evidence of L3-S1 posterior fusion with L3-L5 laminectomies. There is a right artificial hip. CT/Abdomen/Pelvis WITH Contrast IMPRESSION: 1. Diverticulosis without acute inflammatory change. 2. Hiatal hernia. 3. Old granulomatous disease. 4. Emphysema. 5. Atherosclerotic changes of the abdominal aorta. 6. Status post cholecystectomy appendectomy and hysterectomy. 7. Umbilical and left inguinal hernia of omental fat. 8. Surgical changes of the lower lumbar spine. 9. Right artificial hip. Electronically Signed: Curt Oshea DO at 17:08 EDT Tel [phone], Service support ,
== END | disposition home or self-care (01) ==
LOC: CT 12:46
PROVIDERS: Family Provider Family Medicine; PCP Family Medicine; Referring Provider Family Medicine; Visit Provider Family Medicine
DX: R10.9 Unspecified abdominal pain (principal); R15.9 Full incontinence of feces; K92.1 Melena
CPT/HCPCS: 74177; Q9967

== ENCOUNTER → 2019-08-05 | Outpatient (CLI) | payer MEDICARE, SELFPAY ==
--- NOTE | 2019-08-05 12:20 | CT_ITS ---
CT of the left ankle INDICATION: Arthritis. TECHNIQUE: Multiple thin section axial CT images the left ankle were obtained and filmed in soft tissue and bone windows. Furthermore, multiple sagittal and coronal reconstructions were performed. FINDINGS: No abnormal soft tissue mass, lymphadenopathy, fluid collection. Normal appearance to the musculature. Examination of bone windows demonstrates no evidence of acute fracture or dislocation. No lytic or blastic lesions. There is a chronic corticated avulsion fracture inferior to the lateral malleolus the tibia. Chronic corticated avulsion fracture of the inferior aspect of the medial malleolus the tibia is also noted. There is moderate joint space narrowing, subchondral sclerosis and subchondral cyst formation as well as mild osteophyte formation of the tibiotalar joint consistent with moderate osteoarthrosis. IMPRESSION: Moderate tibiotalar joint arthrosis. Electronically Signed: Richard Clark MD at 13:17 EDT Tel , Service support , CT/Extremity Lower without Contra
--- NOTE | 2019-08-05 12:56 | BD_ITS ---
STUDY: DUAL ENERGY X-RAY ABSORPTIOMETRY / DXA REASON FOR EXAM: Female, 83 years old. Early menopause. Loss of height. TECHNIQUE: Bone Mineral Density (BMD) measurements of both forearms were obtained. COMPARISON: None. FINDINGS: Right Forearm: g/cm2 (0.568) / T-score (-3.6) / Z-score (-0.7) Left Forearm: g/cm2 (0.457) / T-score (-4.9) / Z-score (-1.9) BD/Dexa Bone Density/Append Skel IMPRESSION: The patient is considered osteoporotic as outlined below according to World [employer] Organization (WHO) criteria with a high fracture risk. Reference Information: The T-score is the number of standard deviations above or below the standard which is normal for young adults at their peak bone mineral density. The World Health Organization (WHO) interprets the T-scores as follows: Above -1 Normal bone density Between -1 and -2.5 Osteopenia Equal to / or below -2.5 Osteoporosis As a practical clinical guideline, osteopenia may be graded as follows: Mild -1 through -1.5 Moderate -1.6 through -2.0 Severe -2.1 through -2.4 The Z-score is the number of standard deviations above or below age-matched controls. A Z-score of less than -1.5 would be considered abnormal. References: 1. NIH Osteoporosis and Related Bone Diseases http://www.osteo.org 2. International Society for Clinical Densitometry http://www.iscd.org 3. National Osteoporosis Foundation http://www.nof.org Electronically Signed: Darron Rojas, at 11:16 EDT , Service support ,
== END | disposition home or self-care (01) ==
LOC: CT 12:18
PROVIDERS: Family Provider Family Medicine; PCP Family Medicine; Referring Provider Orthopaedic Surgery
DX: M85.89 Other specified disorders of bone density and structure, multiple sites (principal); M19.072 Primary osteoarthritis, left ankle and foot
CPT/HCPCS: 73700; 77081

== ENCOUNTER 2019-09-18 15:54 | Inpatient (IN) | payer MEDICARE, SELFPAY ==
[2019-09-18 15:59] VITALS: BP 134/66; PULSE 84; RESP 18; TEMP 37.7; O2SAT 90
[2019-09-18 16:22] VITALS: BMI 29.8
[2019-09-18 16:24] VITALS: BMI 29.9
[2019-09-18] MEDS: HYDROcodone Bitartrate/Apap 5/325 Tablet PO (17:41)
[2019-09-18] MEDS: Pantoprazole Sodium 40 MG Tablet PO (17:41)
[2019-09-18] MEDS: traMADol 50 MG Tablet PO (21:23)
[2019-09-18] MEDS: Amitriptyline 25 MG Tablet PO (21:24)
[2019-09-18] MEDS: traZODone 50 MG Tablet PO (21:24)
[2019-09-18] MEDS: Gabapentin 300 MG Capsule PO (21:24)
[2019-09-18] MEDS: Fluticasone 0.05% 1 SPRAY NASAL.SRY 2 SPRAY NASAL (21:26)
--- NOTE | 2019-09-18 21:26 | HP.PCM_ITS ---
Problem List (1) Debility Status: Acute (2) Closed left ankle fracture Status: Acute (3) Osteoarthritis of right hip Status: Chronic (4) Low back pain Status: Chronic (5) Allergic rhinitis Status: Chronic (6) Osteoporosis Status: Chronic (7) Asthma Status: Chronic (8) Insomnia Status: Chronic (9) Recurrent UTI Status: Chronic (10) Overactive bladder Status: Chronic (11) Hypothyroidism Status: Chronic (12) Hypertension Status: Chronic History of Present Illness Date of Admission: 09/18/19 Chief Complaint: Here for rehabilitation, strengthening, prior to discharge home with . The patient is a 83 year old Female with below past medical history hospital for left ankle fracture, underwent left total ankle replacement 09/16/2019 at [facility] in [place]. Postoperative course uncomplicated. 09/18/2019 Admit to TCU with debility, here for rehabilitation, strengthening, prior to discharge home with . Past Medical History Past Medical History (Chronic Problems): Chronic Problems (Last Reviewed 02/17/19 @ 10:13 by Sandra Hanley) Peptic ulcer disease (Chronic) Osteoarthritis of right hip (Chronic) Low back pain (Chronic) Allergic rhinitis (Chronic) Osteoporosis (Chronic) Asthma (Chronic) Insomnia (Chronic) Recurrent UTI (Chronic) Constipation (Chronic) Overactive bladder (Chronic) History of peptic ulcer disease (Chronic) Hypothyroidism (Chronic) Hypertension (Chronic) Medical History: Medical History (Last Reviewed 02/17/19 @ 10:13 by Sandra Hanley) Asthma J45.909 Kidney disease N28.9 Osteoporosis M81.0 Thyroid disease E07.9 Hypertension I10 Allergies grass pollen-perennial rye, standar [grass poll-perennial rye,std] Allergy (Verified 02/17/19 10:59) sinus pressure gluten Adverse Reaction (Verified 02/17/19 10:59) Food Allergy lactose Adverse Reaction (Verified 02/17/19 10:59) Food Allergy DUST Allergy (Uncoded 02/17/19 10:59) sinus pressure MOLD Allergy (Uncoded 02/17/19 10:59) SINUS PRESSURE Home Medications: Ambulatory Orders Medication Instructions Recorded Amlodipine [Norvasc] 5 mg PO DAILY 12/31/14 Gabapentin [Neurontin] 300 mg PO TID 12/31/14 Levothyroxine [Synthroid] 50 mcg PO DAILY 12/31/14 Lisinopril [Zestril] 20 mg PO DAILY 12/31/14 traZODone [Desyrel] 50 mg PO QHS 12/31/14 Polyethylene Glycol 3350 [Miralax] 17 gm PO DAILY 08/25/16 Cetirizine HCl [Zyrtec] 5 mg PO PRN PRN 03/09/17 Fluticasone 0.05% [Flonase Nasal 2 spray NASAL QHS 03/09/17 [place]] Amitriptyline HCl 25 mg PO QHS 11/05/18 Azelastine HCl [Astelin] 2 spray NASAL DAILY 11/05/18 traMADol [Ultram (G)] 50 mg PO TID 02/17/19 Bismuth Subsalicylate 262 mg PO DAILY PRN PRN 09/18/19 [Pepto-Bismol] Furosemide [Lasix] 40 mg PO DAILY 09/18/19 Hydrocodone/Acetaminophen [Ingraham 1 ea PO Q4H PRN PRN 09/18/19 5-325 Tablet] Pantoprazole Sodium [Protonix] 40 mg PO BID 09/18/19 Surgical History: appendectomy, cataract, cholecystectomy, hysterectomy, total hip arthroplasty - Right, 11/07/[address] 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 Denies: Chills, Fever, Weight Change HEENT: Denies: Head Aches, Sinus Congestion, Sinus Drainage Cardiovascular: Denies: Chest Pain, Palpitations Respiratory: Denies: Cough, Shortness of breath at rest, Sputum production Gastrointestinal: Denies: Abdominal Pain, Nausea, Vomiting Genitourinary: Denies: Dysuria Musculoskeletal: Denies: Joint Pain, Joint Tenderness Skin: Denies: Rash, Wounds Neurological: Denies: Numbness, Tingling, Focal weakness Psychiatric: Denies: Anxiety, Depression, Homicidal Ideations, Suicidal Ideations Hematologic/ Lymphatic: Denies: Easy Bruising, Easy Bleeding VTE Information - Inpt Only VTE Present on Admission: No VTE Mechan Device Prophylaxis: Knee High RITESH Hose VTE Pharm Prophylaxis ordered?: Yes Patient Problems: Active and Suspected Problems (Last Reviewed 02/17/19 @ 10:13 by Sandra Hanley) Debility (Acute) Closed left ankle fracture (Acute) - Physical Exam Vitals/I&O's: Vital Signs Temp Pulse Resp BP Pulse Ox 99.8 F H 84 18 134/66 H 90 09/18/19 15:59 09/18/19 15:59 09/18/19 15:59 09/18/19 15:59 09/18/19 15:59 Oxygen Delivery Method Room Air Weight: 67.1 kg Body Mass Index (BMI) 29.8 General: Alert, Oriented x3, Cooperative HEENT: Atraumatic, PERRLA, EOMI, Normocephalic Neck: Supple, No JVD, Negative Carotid Bruits Lungs: Clear to auscultation, Normal air movement Cardiovascular: Regular rate, No murmurs Abdomen: Bowel Sounds Present, Soft, Non Tender Extremities: No edema, Capillary Refill Less than 3 Seconds, - - Left lower extr emity splint, dressing. Skin: No rashes, No breakdown Musculoskeletal: No Tenderness to Palpation of Joints or Extremities Neurological: Cranial nerves II-XII grossly intact Psych/Mental Status: Normal Affect, Appropriate Current Medications Hydrocodone Bitart/Acetaminophen (Ingraham 5mg-325mg) 1 tablet PO Q4H PRN PRN PRN Reason: Pain 1-10/10 or Fever Last Admin: 09/18/19 17:41 Dose: 1 tablet Documented by: Amitriptyline HCl (Elavil) 25 mg PO QHS [facility] Last Admin: 09/18/19 21:24 Dose: 25 mg Documented by: Amlodipine Besylate (Norvasc) 5 mg PO DAILY [facility] Azelastine HCl (Astelin) 2 spray NASAL DAILY [facility] Calcium Carbonate (Tums) 500 mg PO DAILY PRN PRN Reason: INDIGESTION Fluticasone Propionate (Flonase Nasal [place]) 2 spray NASAL QHS [facility] Last Admin: 09/18/19 21:26 Dose: 2 spray Documented by: Furosemide (Lasix) 40 mg PO DAILY [facility] Gabapentin (Neurontin) 300 mg PO TID [facility] Last Admin: 09/18/19 21:24 Dose: 300 mg Documented by: Levothyroxine Sodium (Synthroid) 50 mcg PO DAILY [facility] Lisinopril (Zestril) 20 mg PO DAILY [facility] Loratadine (Claritin) 10 mg PO DAILY PRN PRN PRN Reason: ALLERGIES Pantoprazole Sodium (Protonix) 40 mg PO BID [facility] Last Admin: 09/18/19 17:41 Dose: 40 mg Documented by: Polyethylene Glycol (Miralax) 17 gm PO DAILY [facility] Tramadol HCl (Ultram) 50 mg PO TID [facility] Last Admin: 09/18/19 21:23 Dose: 50 mg Documented by: Trazodone HCl (Desyrel) 50 mg PO QHS [facility] Last Admin: 09/18/19 21:24 Dose: 50 mg Documented by: Tuberculin PPD (Tubersol, Aplisol, Ppd) 5 tu ID [id number] ONE Stop: 09/19/19 10:01 Tuberculin PPD (Tubersol, Aplisol, Ppd) 5 tu ID [id number] ONE Stop: 09/26/19 10:01 Assessment/Plan All Active Problems (Last Reviewed 02/17/19 @ 10:13 by Sandra Hanley) Debility (Acute) Closed left ankle fracture (Acute) Chest pain, atypical (Acute) Chest wall pain (Acute) Recurrent UTI (Acute) 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 * Debility - PT/OT. * Pain - Tramadol 50MG TID, Ingraham 5/325MG 1 tablet Q4H PRN pain (1-10) * Bowel - Miralax 17GM daily, Senna/colace 2 tablets BID, Dulcolax 10MG daily PRN. * Adult immunization - Administer Prevnar 13, Pneumovax 23, Fluzone as nec essary. * DVT prophylaxis - Lovenox 40MG SC daily. * Neuropathic pain - Gabapentin 300MG TID, Elavil 25MG QHS ([employer] drug, consider stopping). * Hypertension - Lisinopril 20MG daily, Amlodipine 5MG daily. * Allergic Rhinitis - Astelin 2 sprays nasal daily, Flonase nasal spray 2 sprays QHS, Loratadine 10MG daily PRN. * Indigestion - TUMS 500MG daily PRN. * Edema - Lasix 40MG daily. * Hypothyroidism - Levothyroxine 50MCG daily. * GERD - Pantoprazole 40MG BID. * Insomnia - Trazodone 50MG QHS.
[2019-09-19 04:59] VITALS: BP 131/61; PULSE 79
[2019-09-19] MEDS: traMADol 50 MG Tablet PO ×3 (05:00→21:07)
[2019-09-19] MEDS: Azelastine HCl NASAL.SRY 2 SPRAY NASAL (05:00)
[2019-09-19] MEDS: Levothyroxine 50 MCG Tablet PO (05:01)
[2019-09-19] MEDS: Furosemide 40 MG Tablet PO (05:01)
[2019-09-19] MEDS: Pantoprazole Sodium 40 MG Tablet PO ×2 (05:02→17:22)
[2019-09-19] MEDS: Lisinopril 20 MG Tablet PO (05:02)
[2019-09-19] MEDS: amLODIPine 5 MG Tablet PO (05:02)
[2019-09-19] MEDS: Gabapentin 300 MG Capsule PO ×3 (05:02→21:07)
--- NOTE | 2019-09-19 05:19 | NURSING ---
Code status discussed with patient, patient wishes to be a DNRCC. Purple bracelet applied.
[2019-09-19 06:10] LABS: Absolute Lymphocyte Count 1.24 X10^3/uL (0.83-4.51); Absolute Neutrophil Count 4.6 X10^3/uL (2.0-7.7); Basophil# 0.04 X10^3/uL; Basophil% 0.6 % (0-1); Eosinophil# 0.24 X10^3/uL; Eosinophils% 3.5 % (0-5); Hematocrit 36.1 % (37-47); Hemoglobin 11.4 g/dL (12.0-15.0); Lymphocyte # 1.24 X10^3/ul (4.0); Lymphocyte % 18.1 % (19-41); Mean Corp Hgb Conc 31.6 g/dL (32-36); Mean Corpuscular Hgb 30.6 pg (27.0-32.0); Mean Corpuscular Volume 96.8 fL (81-99); Mean Platelet Vol. 9.7 fl (6.2-12.0); Monocyte# 0.65 X10^3/uL; Monocyte% 9.5 % (0-10); NRBC Flagged by Analyzer 0 % (0-5); Neutrophil # 4.64 X10^3/uL (2.7-7.7); Neutrophil % 67.7 % (47-70); Platelet Count 250 K/mm3 (150-450); RBC Distribution Width CV 12.8 % (11.6-14.6); RBC Distribution Width SD 45.4 fl (35.1-43.9); Red Blood Count 3.73 M/mm3 (4.2-5.4); White Blood Count 6.9 K/mm3 (4.4-11.0)
[2019-09-19 06:33] LABS: Anion Gap 8 (5-15); BUN 23 mg/dL (7-18); BUN/Creat Ratio 24.9 RATIO (10-20); Calcium,Total 8.4 mg/dL (8.5-10.1); Chloride 104 mmol/L (98-107); Creatinine, Serum 0.92 mg/dL (0.55-1.02); EST Glomerular Filtration Rate 62 mL/min (>60); Est Glom Filt Rate - Afr Amer 75 mL/min (>60); Estimated Creatinine Clearance 49.94 ml/min; Glucose 100 mg/dL (74-106); Potassium 3.5 mmol/L (3.5-5.1); Sodium Level 139 mmol/L (136-145)
[2019-09-19] MEDS: Enoxaparin 40 MG/0.4 ML Syringe SC (07:44)
[2019-09-19] MEDS: Polyethylene Glycol 3350 17 GM PACKET PO (07:45)
[2019-09-19] MEDS: Tuberculin,Purif.prot.deriv. 50 TU/ML Vial 5 ML ID (12:20)
--- NOTE | 2019-09-19 15:11 | PHA.CONS_ITS ---
<EvanpadillaDiane M - Last Filed: 09/19/19 15:11> Progress Note - Pharmacy Subjective: TCU ADMISSION Objective: Allergies grass pollen-perennial rye, standar [grass poll-perennial rye,std] Allergy (Verified 02/17/19 10:59) sinus pressure gluten Adverse Reaction (Verified 02/17/19 10:59) Food Allergy lactose Adverse Reaction (Verified 02/17/19 10:59) Food Allergy DUST Allergy (Uncoded 02/17/19 10:59) sinus pressure MOLD Allergy (Uncoded 02/17/19 10:59) SINUS PRESSURE Current Medications Generic Name Dose Route Start Last Admin Trade Name Freq PRN Reason Stop Dose Admin Hydrocodone Bitart/Acetaminophen 1 tablet 09/18/19 16:15 09/18/19 17:41 [place] 5mg-325mg PO 1 tablet Q4H PRN PRN Administration Pain 1-10/10 or Fever Amitriptyline HCl 25 mg 09/18/19 22:00 09/18/19 21:24 Elavil PO 25 mg QHS FRED Administration Amlodipine Besylate 5 mg 09/19/19 06:00 09/19/19 05:02 Norvasc PO 5 mg DAILY FRED Administration Azelastine HCl 2 spray 09/19/19 06:00 09/19/19 05:00 Astelin NASAL 2 spray DAILY FRED Administration Bisacodyl 10 mg 09/18/19 21:46 Dulcolax PO DAILY PRN Constipation Calcium Carbonate 500 mg 09/18/19 18:09 Tums PO DAILY PRN INDIGESTION Enoxaparin Sodium 40 mg 09/19/19 06:00 09/19/19 07:44 Lovenox SC 40 mg DAILY@0600 FRED Administration Fluticasone Propionate 2 spray 09/18/19 22:00 09/18/19 21:26 Flonase Nasal [place] NASAL 2 spray QHS FRED Administration Furosemide 40 mg 09/19/19 06:00 09/19/19 05:01 Lasix PO 40 mg DAILY FRED Administration Gabapentin 300 mg 09/18/19 22:00 09/19/19 13:14 Neurontin PO 300 mg TID FRED Administration Guaifenesin 600 mg 09/19/19 18:00 Mucinex PO BID FRED Levothyroxine Sodium 50 mcg 09/19/19 06:00 09/19/19 05:01 Synthroid PO 50 mcg DAILY FRED Administration Lisinopril 20 mg 09/19/19 06:00 09/19/19 05:02 Zestril PO 20 mg DAILY FRED Administration Loratadine 10 mg 09/19/19 06:00 Claritin PO DAILY PRN PRN ALLERGIES Pantoprazole Sodium 40 mg 09/18/19 18:00 09/19/19 05:02 Protonix PO 40 mg BID FRED Administration Polyethylene Glycol 17 gm 09/19/19 08:00 09/19/19 07:45 Miralax PO 17 gm 0800 FRED Administration Senna/Docusate Sodium 2 tablet 09/19/19 06:00 09/19/19 05:02 Senokot-S, Stephanie-Colace PO Not Given BID FRED Tramadol HCl 50 mg 09/18/19 22:00 09/19/19 13:14 Ultram PO 50 mg TID FRED Administration Trazodone HCl 50 mg 09/18/19 22:00 09/18/19 21:24 Desyrel PO 50 mg QHS FRED Administration Tuberculin PPD 5 tu 09/26/19 10:00 Tubersol, Aplisol, Ppd ID 09/26/19 10:01 X1 ONE Problem List (Last Reviewed 02/17/19 @ 10:13 by Sandra Hanley) Debility (Acute) Closed left ankle fracture (Acute) Vital Signs Temp Pulse Resp BP Pulse Ox 99.8 F H 79 18 131/61 H 90 09/18/19 15:59 09/19/19 04:59 09/18/19 15:59 09/19/19 04:59 09/18/19 15:59 Oxygen Delivery Method Room Air Weight: 67.1 kg Body Mass Index (BMI) 29.8 Sodium 139 mmol/L (136-145) 09/19/19 05:35 Potassium 3.5 mmol/L (3.5-5.1) 09/19/19 05:35 Chloride 104 mmol/L (98-107) 09/19/19 05:35 Carbon Dioxide 27.0 mmol/L (21.0-32.0) 09/19/19 05:35 Anion Gap 8 (5-15) 09/19/19 05:35 BUN 23 mg/dL (7-18) H 09/19/19 05:35 Creatinine 0.92 mg/dL (0.55-1.02) 09/19/19 05:35 Est GFR (MDRD) Af Amer 75 mL/min (>60) 09/19/19 05:35 Est GFR (MDRD) Non-Af 62 mL/min (>60) 09/19/19 05:35 BUN/Creatinine Ratio 24.9 RATIO (10-20) H 09/19/19 05:35 Glucose 100 mg/dL (74-106) 09/19/19 05:35 Assessment/Plan: 1. Pain: Tramadol 50mg PO TID, [place] 5/325mg 1 tablet PO Q4H PRN pain (1-10). Please monitor PRN use, increased/decreased S/S pain, renal function 2. DVT prophylaxis: Lovenox 40m SC daily. Please continue to monitor for S/S bleeding/bruising, renal function *3. Neuropathic pain: Gabapentin 300mg PO TID, Elavil 25mg PO QHS. Please continue to monitor renal function, medication effectiveness. Elavil is a [employer] medication, please evaluate use and consider discontinuation of medication if clinically appropriate. 4. Hypertension: Lisinopril 20mg PO daily, Amlodipine 5mg PO daily. Please continue to monitor BP, potassium 5. Allergic Rhinitis: Astelin 2 sprays nasal daily, Flonase nasal spray 2 sprays QHS, Mucinex 600mg PO BID, Loratadine 10mg PO daily PRN. Please continue to monitor medication effectiveness, improvement of symptoms 6. Edema: Lasix 40mg PO daily. Please continue to monitor fluid status, potassium levels 7. Hypothyroidism: Levothyroxine 50mcg PO daily. Please continue to monitor, check TSH as clinically indicated 8. GERD/ Indigestion: Pantoprazole 40mg PO BID, Calcium carbonate 500mg PO daily PRN. Please continue to monitor PRn usage, increased/decreased symptoms Psychotropic Medications: *9. Insomnia - Trazodone 50mg PO QHS. Please consider a GDR by 02/2020 if clinically indicated Unnecessary Medications: None Bowel Regimen: Miralax 17g PO daily, Senna/Docusate 2 tablets PO BID, Dulcolax 10mg PO daily PRN. Please continue to monitor PRN use, and for increased/decreased S/S constipation or diarrhea Date of Note:: 09/19/19 - Provider Comments Provider responsibility: Provider responsible to enter orders to implement recommendations <Kiel Son Raudel - Last Filed: 09/20/19 08:45> Progress Note - Pharmacy Subjective: [] Objective: Allergies grass pollen-perennial rye, standar [grass poll-perennial rye,std] Allergy (Verified 02/17/19 10:59) sinus pressure gluten Adverse Reaction (Verified 02/17/19 10:59) Food Allergy lactose Adverse Reaction (Verified 02/17/19 10:59) Food Allergy DUST Allergy (Uncoded 02/17/19 10:59) sinus pressure MOLD Allergy (Uncoded 02/17/19 10:59) SINUS PRESSURE Current Medications Generic Name Dose Route Start Last Admin Trade Name Freq PRN Reason Stop Dose Admin Hydrocodone Bitart/Acetaminophen 1 tablet 09/18/19 16:15 09/19/19 17:24 [place] 5mg-325mg PO 1 tablet Q4H PRN PRN Administration Pain 1-10/10 or Fever Amitriptyline HCl 25 mg 09/18/19 22:00 09/19/19 21:07 Elavil PO 25 mg QHS FRED Administration Amlodipine Besylate 5 mg 09/19/19 06:00 09/20/19 05:51 Norvasc PO 5 mg DAILY FRED Administration Azelastine HCl 2 spray 09/19/19 06:00 09/20/19 05:52 Astelin NASAL 2 spray DAILY FRED Administration Bisacodyl 10 mg 09/18/19 21:46 Dulcolax PO DAILY PRN Constipation Calamine/Phenol 1 applic 09/20/19 06:00 09/20/19 05:51 Calmoseptine Ointment TOPICAL 1 applicatio 0600,2200 [facility] Administration Protocol Calcium Carbonate 500 mg 09/18/19 18:09 Tums PO DAILY PRN INDIGESTION Enoxaparin Sodium 40 mg 09/19/19 06:00 09/20/19 05:52 Lovenox SC 40 mg DAILY@0600 FRED Administration Fluticasone Propionate 2 spray 09/18/19 22:00 09/19/19 21:09 Flonase Nasal [place] NASAL 2 spray QHS FRED Administration Furosemide 40 mg 09/19/19 06:00 09/20/19 05:51 Lasix PO 40 mg DAILY FRED Administration Gabapentin 300 mg 09/18/19 22:00 09/20/19 05:51 Neurontin PO 300 mg TID FRED Administration Guaifenesin 600 mg 09/19/19 18:00 09/20/19 05:51 Mucinex PO 600 mg BID FRED Administration Levothyroxine Sodium 50 mcg 09/19/19 06:00 09/20/19 05:51 Synthroid PO 50 mcg DAILY FRED Administration Lisinopril 20 mg 09/19/19 06:00 09/20/19 05:51 Zestril PO 20 mg DAILY FRED Administration Loratadine 10 mg 09/19/19 06:00 Claritin PO DAILY PRN PRN ALLERGIES Pantoprazole Sodium 40 mg 09/18/19 18:00 09/20/19 05:51 Protonix PO 40 mg BID FRED Administration Polyethylene Glycol 17 gm 09/19/19 08:00 09/20/19 08:05 Miralax PO 17 gm 0800 FRED Administration Senna/Docusate Sodium 2 tablet 09/19/19 06:00 09/20/19 05:50 Senokot-S, Stephanie-Colace PO 2 tablet BID FRED Administration Tramadol HCl 50 mg 09/18/19 22:00 09/20/19 05:50 Ultram PO 50 mg TID FRED Administration Trazodone HCl 50 mg 09/18/19 22:00 09/19/19 21:08 Desyrel PO 50 mg QHS FRED Administration Tuberculin PPD 5 tu 09/26/19 10:00 Tubersol, Aplisol, Ppd ID 09/26/19 10:01 X1 ONE Problem List (Last Reviewed 02/17/19 @ 10:13 by Sandra Hanley) Debility (Acute) Closed left ankle fracture (Acute) Vital Signs Temp Pulse Resp BP Pulse Ox 98.1 F 99 14 129/74 H 98 09/19/19 16:00 09/19/19 16:00 09/19/19 16:00 09/19/19 16:00 09/19/19 16:00 Oxygen Delivery Method Room Air Weight: 67.1 kg Body Mass Index (BMI) 29.8 Sodium 139 mmol/L (136-145) 09/19/19 05:35 Potassium 3.5 mmol/L (3.5-5.1) 09/19/19 05:35 Chloride 104 mmol/L (98-107) 09/19/19 05:35 Carbon Dioxide 27.0 mmol/L (21.0-32.0) 09/19/19 05:35 Anion Gap 8 (5-15) 09/19/19 05:35 BUN 23 mg/dL (7-18) H 09/19/19 05:35 Creatinine 0.92 mg/dL (0.55-1.02) 09/19/19 05:35 Est GFR (MDRD) Af Amer 75 mL/min (>60) 09/19/19 05:35 Est GFR (MDRD) Non-Af 62 mL/min (>60) 09/19/19 05:35 BUN/Creatinine Ratio 24.9 RATIO (10-20) H 09/19/19 05:35 Glucose 100 mg/dL (74-106) 09/19/19 05:35 Assessment/Plan: Psychotropic Medications: Unnecessary Medications: Bowel Regimen: - Provider Comments Provider responsibility: Provider responsible to enter orders to implement recommendations Provider Comments to Recommendations by Pharmacy: Agree
[2019-09-19 16:00] VITALS: BP 129/74; PULSE 99; RESP 14; TEMP 36.7; O2SAT 98
[2019-09-19] MEDS: guaiFENesin 600 MG Tablet PO (17:22)
[2019-09-19] MEDS: HYDROcodone Bitartrate/Apap 5/325 Tablet PO (17:24)
[2019-09-19] MEDS: Amitriptyline 25 MG Tablet PO (21:07)
[2019-09-19] MEDS: traZODone 50 MG Tablet PO (21:08)
[2019-09-19] MEDS: Fluticasone 0.05% 1 SPRAY NASAL.SRY 2 SPRAY NASAL (21:09)
[2019-09-20] MEDS: Senna/Docusate Sodium 1 Tablet 2 TABLET PO (05:50)
[2019-09-20] MEDS: traMADol 50 MG Tablet PO ×2 (05:50→14:49)
[2019-09-20] MEDS: Furosemide 40 MG Tablet PO (05:51)
[2019-09-20] MEDS: Menthol/Lanolin/Calamine/Znox 113 GM Tube 1 APPLIC TOPICAL (05:51)
[2019-09-20] MEDS: Lisinopril 20 MG Tablet PO (05:51)
[2019-09-20] MEDS: Levothyroxine 50 MCG Tablet PO (05:51)
[2019-09-20] MEDS: Pantoprazole Sodium 40 MG Tablet PO ×2 (05:51→18:50)
[2019-09-20] MEDS: guaiFENesin 600 MG Tablet PO ×2 (05:51→18:50)
[2019-09-20] MEDS: Gabapentin 300 MG Capsule PO ×3 (05:51→21:59)
[2019-09-20] MEDS: amLODIPine 5 MG Tablet PO (05:51)
[2019-09-20] MEDS: Azelastine HCl NASAL.SRY 2 SPRAY NASAL (05:52)
[2019-09-20] MEDS: Enoxaparin 40 MG/0.4 ML Syringe SC (05:52)
[2019-09-20] MEDS: Polyethylene Glycol 3350 17 GM PACKET PO (08:05)
[2019-09-20] MEDS: Calcium Carbonate 500 MG Tablet PO (14:49)
[2019-09-20 16:00] VITALS: BP 119/58; PULSE 92; RESP 19; TEMP 37.1; O2SAT 98
[2019-09-20] MEDS: Fluticasone 0.05% 1 SPRAY NASAL.SRY 2 SPRAY NASAL (21:56)
[2019-09-20] MEDS: traZODone 50 MG Tablet PO (21:59)
[2019-09-20] MEDS: HYDROcodone Bitartrate/Apap 5/325 Tablet PO (21:59)
[2019-09-20] MEDS: Amitriptyline 25 MG Tablet PO (21:59)
[2019-09-21] MEDS: HYDROcodone Bitartrate/Apap 5/325 Tablet PO ×2 (02:28→09:21)
[2019-09-21] MEDS: Enoxaparin 40 MG/0.4 ML Syringe SC (06:07)
[2019-09-21] MEDS: Pantoprazole Sodium 40 MG Tablet PO ×2 (06:07→17:56)
[2019-09-21] MEDS: Lisinopril 20 MG Tablet PO (06:07)
[2019-09-21] MEDS: Levothyroxine 50 MCG Tablet PO (06:07)
[2019-09-21] MEDS: guaiFENesin 600 MG Tablet PO ×2 (06:07→17:56)
[2019-09-21] MEDS: amLODIPine 5 MG Tablet PO (06:07)
[2019-09-21] MEDS: Gabapentin 300 MG Capsule PO ×3 (06:08→21:10)
[2019-09-21] MEDS: Furosemide 40 MG Tablet PO (06:09)
[2019-09-21] MEDS: Azelastine HCl NASAL.SRY 2 SPRAY NASAL (06:09)
[2019-09-21] MEDS: traMADol 50 MG Tablet PO ×3 (06:11→21:10)
[2019-09-21] MEDS: Menthol/Lanolin/Calamine/Znox 113 GM Tube 1 APPLIC TOPICAL (06:13)
[2019-09-21] MEDS: Polyethylene Glycol 3350 17 GM PACKET PO (12:01)
[2019-09-21] MEDS: Acetaminophen 500 MG Tablet 1000 MG PO (17:55)
[2019-09-21] MEDS: Mag Hydrox/Al Hydrox/Simeth 30 ML UDC PO (17:55)
[2019-09-21] MEDS: Fluticasone 0.05% 1 SPRAY NASAL.SRY 2 SPRAY NASAL (21:07)
[2019-09-21] MEDS: Amitriptyline 25 MG Tablet PO (21:10)
[2019-09-21] MEDS: traZODone 50 MG Tablet PO (21:10)
[2019-09-22 03:54] VITALS: BP 121/48; PULSE 77; RESP 18; TEMP 36.5; O2SAT 96
[2019-09-22] MEDS: Azelastine HCl NASAL.SRY 2 SPRAY NASAL (05:50)
[2019-09-22] MEDS: traMADol 50 MG Tablet PO ×3 (05:51→21:10)
[2019-09-22] MEDS: Enoxaparin 40 MG/0.4 ML Syringe SC (05:51)
[2019-09-22] MEDS: Pantoprazole Sodium 40 MG Tablet PO ×2 (05:52→17:20)
[2019-09-22] MEDS: Gabapentin 300 MG Capsule PO ×3 (05:52→21:11)
[2019-09-22] MEDS: Lisinopril 20 MG Tablet PO (05:52)
[2019-09-22] MEDS: Polyethylene Glycol 3350 17 GM PACKET PO (05:52)
[2019-09-22] MEDS: Furosemide 40 MG Tablet PO (05:52)
[2019-09-22] MEDS: Levothyroxine 50 MCG Tablet PO (05:52)
[2019-09-22] MEDS: guaiFENesin 600 MG Tablet PO ×2 (05:52→17:20)
[2019-09-22] MEDS: amLODIPine 5 MG Tablet PO (05:52)
[2019-09-22] MEDS: HYDROcodone Bitartrate/Apap 5/325 Tablet PO (15:23)
[2019-09-22 16:00] VITALS: BP 116/51; PULSE 66; RESP 20; TEMP 37; O2SAT 85
[2019-09-22] MEDS: traZODone 50 MG Tablet PO (21:11)
[2019-09-22] MEDS: Amitriptyline 25 MG Tablet PO (21:11)
[2019-09-22] MEDS: Fluticasone 0.05% 1 SPRAY NASAL.SRY 2 SPRAY NASAL (21:12)
[2019-09-23] MEDS: Gabapentin 300 MG Capsule PO ×3 (04:55→21:10)
[2019-09-23] MEDS: amLODIPine 5 MG Tablet PO (04:55)
[2019-09-23] MEDS: Pantoprazole Sodium 40 MG Tablet PO ×2 (04:55→17:20)
[2019-09-23] MEDS: Enoxaparin 40 MG/0.4 ML Syringe SC (04:55)
[2019-09-23] MEDS: Lisinopril 20 MG Tablet PO (04:56)
[2019-09-23] MEDS: Levothyroxine 50 MCG Tablet PO (04:56)
[2019-09-23] MEDS: guaiFENesin 600 MG Tablet PO ×2 (04:56→17:20)
[2019-09-23] MEDS: Furosemide 40 MG Tablet PO (04:56)
[2019-09-23] MEDS: traMADol 50 MG Tablet PO ×3 (04:57→21:09)
[2019-09-23] MEDS: Azelastine HCl NASAL.SRY 2 SPRAY NASAL (04:57)
[2019-09-23 05:00] VITALS: BP 122/65; PULSE 86
[2019-09-23] MEDS: Polyethylene Glycol 3350 17 GM PACKET PO (07:55)
[2019-09-23] MEDS: HYDROcodone Bitartrate/Apap 5/325 Tablet PO ×3 (09:11→23:19)
--- NOTE | 2019-09-23 11:46 | CASEMGMT ---
Social Work IDT met with patient and for care plan meeting. Discussed patient's progress in therapy. Pt is min assist for transfers, CGA with knee walker at 20 ft, max assist for LE ADLs, set up for UE ADLs, min to mod for toileting tasks. Pt is NWBS to left foot. OT will complete ADL 09/24. Pt has f/u appt with surgeon 09/24 and may possibly upgrade WBS. Explained insurance update 09/24 and continued stay is not guaranteed. Discussed DC options as is not physically able to care for pt. Provided list of nonskilled HHC, housekeeping services and [employer] resources. Will continue to follow. Flori Magaña, [employer]
[2019-09-23 16:00] VITALS: BP 124/58; PULSE 72; RESP 18; TEMP 36.9; O2SAT 98
[2019-09-23] MEDS: Lidocaine 5% Patch 2 PATCH TOPICAL (17:20)
[2019-09-23] MEDS: Fluticasone 0.05% 1 SPRAY NASAL.SRY 2 SPRAY NASAL (21:09)
[2019-09-23] MEDS: traZODone 50 MG Tablet PO (21:10)
[2019-09-23] MEDS: Amitriptyline 25 MG Tablet PO (21:11)
[2019-09-24] MEDS: traMADol 50 MG Tablet PO ×3 (06:17→21:28)
[2019-09-24] MEDS: guaiFENesin 600 MG Tablet PO ×2 (06:18→17:52)
[2019-09-24] MEDS: Enoxaparin 40 MG/0.4 ML Syringe SC (06:18)
[2019-09-24] MEDS: Levothyroxine 50 MCG Tablet PO (06:18)
[2019-09-24] MEDS: Azelastine HCl NASAL.SRY 2 SPRAY NASAL (06:18)
[2019-09-24] MEDS: Pantoprazole Sodium 40 MG Tablet PO ×2 (06:19→17:52)
[2019-09-24] MEDS: Gabapentin 300 MG Capsule PO ×3 (06:19→21:28)
[2019-09-24] MEDS: Lisinopril 20 MG Tablet PO (06:19)
[2019-09-24] MEDS: amLODIPine 5 MG Tablet PO (06:19)
[2019-09-24] MEDS: Furosemide 40 MG Tablet PO (06:19)
[2019-09-24] MEDS: Menthol/Lanolin/Calamine/Znox 113 GM Tube 1 APPLIC TOPICAL ×2 (06:22→19:57)
[2019-09-24 06:24] VITALS: BP 124/59; PULSE 74
[2019-09-24] MEDS: Polyethylene Glycol 3350 17 GM PACKET PO (07:36)
[2019-09-24] MEDS: Acetaminophen 500 MG Tablet 1000 MG PO (08:31)
--- NOTE | 2019-09-24 09:12 | NURSING ---
pt off unit to surgeon appt at this time via wc, at side.
[2019-09-24 16:00] VITALS: BP 120/62; PULSE 85; RESP 20; TEMP 36.5; O2SAT 97
[2019-09-24] MEDS: Lidocaine 5% Patch 2 PATCH TOPICAL (17:54)
[2019-09-24] MEDS: HYDROcodone Bitartrate/Apap 5/325 Tablet PO (19:52)
[2019-09-24] MEDS: Amitriptyline 25 MG Tablet PO (21:28)
[2019-09-24] MEDS: traZODone 50 MG Tablet PO (21:28)
[2019-09-24] MEDS: Fluticasone 0.05% 1 SPRAY NASAL.SRY 2 SPRAY NASAL (21:28)
[2019-09-25] MEDS: Azelastine HCl NASAL.SRY 2 SPRAY NASAL (05:07)
[2019-09-25] MEDS: Lisinopril 20 MG Tablet PO (05:07)
[2019-09-25] MEDS: traMADol 50 MG Tablet PO ×3 (05:07→21:53)
[2019-09-25] MEDS: Furosemide 40 MG Tablet PO (05:07)
[2019-09-25] MEDS: Enoxaparin 40 MG/0.4 ML Syringe SC (05:07)
[2019-09-25] MEDS: Gabapentin 300 MG Capsule PO ×3 (05:08→21:55)
[2019-09-25] MEDS: Levothyroxine 50 MCG Tablet PO (05:08)
[2019-09-25] MEDS: amLODIPine 5 MG Tablet PO (05:08)
[2019-09-25] MEDS: Pantoprazole Sodium 40 MG Tablet PO ×2 (05:08→17:43)
[2019-09-25] MEDS: guaiFENesin 600 MG Tablet PO ×2 (05:08→17:42)
[2019-09-25] MEDS: Menthol/Lanolin/Calamine/Znox 113 GM Tube 1 APPLIC TOPICAL ×2 (05:09→21:56)
[2019-09-25] MEDS: Polyethylene Glycol 3350 17 GM PACKET PO (08:51)
[2019-09-25] MEDS: HYDROcodone Bitartrate/Apap 5/325 Tablet PO (08:54)
[2019-09-25 16:00] VITALS: BP 117/56; PULSE 77; RESP 18; TEMP 36.4; O2SAT 95
[2019-09-25] MEDS: Lidocaine 5% Patch 1 PATCH TOPICAL (17:43)
[2019-09-25] MEDS: Acetaminophen 500 MG Tablet 1000 MG PO (17:51)
[2019-09-25] MEDS: Amitriptyline 25 MG Tablet PO (21:54)
[2019-09-25] MEDS: traZODone 50 MG Tablet PO (21:54)
[2019-09-25] MEDS: Fluticasone 0.05% 1 SPRAY NASAL.SRY 2 SPRAY NASAL (21:54)
[2019-09-26 05:46] VITALS: BP 104/52; PULSE 78
[2019-09-26] MEDS: traMADol 50 MG Tablet PO ×3 (05:47→20:26)
[2019-09-26] MEDS: Azelastine HCl NASAL.SRY 2 SPRAY NASAL (05:47)
[2019-09-26] MEDS: Levothyroxine 50 MCG Tablet PO (05:48)
[2019-09-26] MEDS: Gabapentin 300 MG Capsule PO ×3 (05:48→20:26)
[2019-09-26] MEDS: Furosemide 40 MG Tablet PO (05:48)
[2019-09-26] MEDS: amLODIPine 5 MG Tablet PO (05:48)
[2019-09-26] MEDS: Pantoprazole Sodium 40 MG Tablet PO ×2 (05:48→16:46)
[2019-09-26] MEDS: Enoxaparin 40 MG/0.4 ML Syringe SC (05:48)
[2019-09-26] MEDS: guaiFENesin 600 MG Tablet PO ×2 (05:48→16:46)
[2019-09-26] MEDS: Lisinopril 20 MG Tablet PO (05:48)
[2019-09-26] MEDS: Menthol/Lanolin/Calamine/Znox 113 GM Tube 1 APPLIC TOPICAL ×2 (05:50→20:27)
[2019-09-26 06:04] LABS: Absolute Lymphocyte Count 0.82 X10^3/uL (0.83-4.51); Absolute Neutrophil Count 4.3 X10^3/uL (2.0-7.7); Basophil# 0.02 X10^3/uL; Basophil% 0.3 % (0-1); Eosinophil# 0.29 X10^3/uL; Eosinophils% 4.7 % (0-5); Hematocrit 29.9 % (37-47); Hemoglobin 9.4 g/dL (12.0-15.0); Lymphocyte # 0.82 X10^3/ul (4.0); Lymphocyte % 13.2 % (19-41); Mean Corp Hgb Conc 31.4 g/dL (32-36); Mean Corpuscular Hgb 30.8 pg (27.0-32.0); Mean Platelet Vol. 9.3 fl (6.2-12.0); Monocyte# 0.74 X10^3/uL; NRBC Flagged by Analyzer 0 % (0-5); Neutrophil # 4.28 X10^3/uL (2.7-7.7); Neutrophil % 69.2 % (47-70); Platelet Count 315 K/mm3 (150-450); RBC Distribution Width CV 12.4 % (11.6-14.6); RBC Distribution Width SD 44.6 fl (35.1-43.9); Red Blood Count 3.05 M/mm3 (4.2-5.4); White Blood Count 6.2 K/mm3 (4.4-11.0)
[2019-09-26 06:27] LABS: Anion Gap 4 (5-15); BUN 30 mg/dL (7-18); BUN/Creat Ratio 28.6 RATIO (10-20); Calcium,Total 9.1 mg/dL (8.5-10.1); Chloride 106 mmol/L (98-107); Creatinine, Serum 1.05 mg/dL (0.55-1.02); EST Glomerular Filtration Rate 53 mL/min (>60); Est Glom Filt Rate - Afr Amer 64 mL/min (>60); Estimated Creatinine Clearance 45.63 ml/min; Glucose 88 mg/dL (74-106); Sodium Level 141 mmol/L (136-145)
[2019-09-26] MEDS: Polyethylene Glycol 3350 17 GM PACKET PO (08:42)
[2019-09-26] MEDS: Tuberculin,Purif.prot.deriv. 50 TU/ML Vial 5 ML ID (11:06)
[2019-09-26] MEDS: HYDROcodone Bitartrate/Apap 5/325 Tablet PO (11:52)
[2019-09-26 16:00] VITALS: BP 124/57; PULSE 82; RESP 17; TEMP 36.8; O2SAT 98
[2019-09-26] MEDS: Lidocaine 5% Patch 1 PATCH TOPICAL (16:44)
[2019-09-26] MEDS: Fluticasone 0.05% 1 SPRAY NASAL.SRY 2 SPRAY NASAL (20:25)
[2019-09-26] MEDS: Amitriptyline 25 MG Tablet PO (20:26)
[2019-09-26] MEDS: traZODone 50 MG Tablet PO (20:26)
[2019-09-26] MEDS: Acetaminophen 500 MG Tablet 1000 MG PO (21:44)
[2019-09-27] MEDS: Levothyroxine 50 MCG Tablet PO (05:07)
[2019-09-27] MEDS: Furosemide 40 MG Tablet PO (05:07)
[2019-09-27] MEDS: Pantoprazole Sodium 40 MG Tablet PO ×2 (05:07→17:06)
[2019-09-27] MEDS: amLODIPine 5 MG Tablet PO (05:07)
[2019-09-27] MEDS: Gabapentin 300 MG Capsule PO ×3 (05:07→21:50)
[2019-09-27] MEDS: Azelastine HCl NASAL.SRY 2 SPRAY NASAL (05:07)
[2019-09-27] MEDS: guaiFENesin 600 MG Tablet PO ×2 (05:07→17:06)
[2019-09-27] MEDS: Lisinopril 20 MG Tablet PO (05:07)
[2019-09-27] MEDS: traMADol 50 MG Tablet PO ×3 (05:08→21:50)
[2019-09-27] MEDS: Polyethylene Glycol 3350 17 GM PACKET PO (05:09)
[2019-09-27] MEDS: Menthol/Lanolin/Calamine/Znox 113 GM Tube 1 APPLIC TOPICAL ×2 (05:09→21:53)
[2019-09-27] MEDS: Iron Polysaccharide Complex 150 MG CAPSULE PO (08:39)
--- NOTE | 2019-09-27 15:02 | NURSING ---
Addendum entered by Alvina Yuan 09/27/19 19:01: Dr Son aware of UA, NO Cipro X7 days Original Note: Notified Dr. Son of patient c/o voidign frequently and reports she was on Keflex for chronic UTI's at home. Received order to straight cath pt for UA and C&S. Will add order.
[2019-09-27] MEDS: HYDROcodone Bitartrate/Apap 5/325 Tablet PO (15:32)
[2019-09-27 15:33] VITALS: BP 127/67; PULSE 83; RESP 16; TEMP 36.8; O2SAT 97
[2019-09-27] MEDS: Lidocaine 5% Patch 1 PATCH TOPICAL (17:02)
[2019-09-27 17:10] LABS: Bacteria 0 SEEN /hpf (None Seen); Mucous, Urine 0 SEEN /hpf (<or=2+); Red Blood Cells-Urine 0 SEEN /hpf (0-5); Squamous Epithelial Cells - UA 0 SEEN /hpf (5-10)
[2019-09-27 17:11] LABS: Color, Urine Yellow (Yellow); Glucose, Dipstick Normal (Normal); Ketone-Dipstick Negative (Negative); Leukocyte Esterase-Dipstick 500 /ul (Negative); Nitrite-Dipstick Positive (Negative); Occult Blood-Urine 50 /ul (Negative); Protein-Dipstick 30 mg/dl (Negative); Urine Bilirubin Dipstick Negative (Negative); Urine Clarity Cloudy (Clear); Urine Urobilinogen Normal (Normal)
[2019-09-27 17:33] LABS: White Blood Cells >100 SEEN /hpf (0-5)
[2019-09-27] MEDS: Fluticasone 0.05% 1 SPRAY NASAL.SRY 2 SPRAY NASAL (19:44)
[2019-09-27] MEDS: Ciprofloxacin 250 MG Tablet PO (19:44)
[2019-09-27] MEDS: Amitriptyline 25 MG Tablet PO (21:50)
[2019-09-27] MEDS: traZODone 50 MG Tablet PO (21:50)
[2019-09-28] MEDS: Menthol/Lanolin/Calamine/Znox 113 GM Tube 1 APPLIC TOPICAL ×2 (05:31→21:52)
[2019-09-28] MEDS: Ciprofloxacin 250 MG Tablet PO ×2 (05:32→17:04)
[2019-09-28] MEDS: guaiFENesin 600 MG Tablet PO ×2 (05:32→17:04)
[2019-09-28] MEDS: Furosemide 40 MG Tablet PO (05:32)
[2019-09-28] MEDS: amLODIPine 5 MG Tablet PO (05:32)
[2019-09-28] MEDS: Gabapentin 300 MG Capsule PO ×3 (05:32→21:45)
[2019-09-28] MEDS: Pantoprazole Sodium 40 MG Tablet PO ×2 (05:32→17:04)
[2019-09-28] MEDS: Levothyroxine 50 MCG Tablet PO (05:32)
[2019-09-28] MEDS: Lisinopril 20 MG Tablet PO (05:33)
[2019-09-28] MEDS: Azelastine HCl NASAL.SRY 2 SPRAY NASAL (05:36)
[2019-09-28] MEDS: traMADol 50 MG Tablet PO ×3 (05:38→21:52)
[2019-09-28] MEDS: Polyethylene Glycol 3350 17 GM PACKET PO (07:32)
[2019-09-28] MEDS: Iron Polysaccharide Complex 150 MG CAPSULE PO (07:32)
[2019-09-28] MEDS: HYDROcodone Bitartrate/Apap 5/325 Tablet PO ×2 (08:21→23:37)
[2019-09-28 14:00] VITALS: PULSE 77; RESP 18; O2SAT 98
--- NOTE | 2019-09-28 14:23 | NURSING ---
LT leg washed with soap and water, dried, & lotion applied around incision. strip ties intact to incision, well approximated. pt assisted to bed for nap. pleasant and amazed at how well incision looked and the ties that held it together. call light in reach
[2019-09-28 15:17] VITALS: BP 104/56; PULSE 77; RESP 16; TEMP 36.8; O2SAT 98
--- NOTE | 2019-09-28 16:43 | NURSING ---
pt found up in room with walker w/out assist. Explained to pt that she is not to be up on own yet. Explained that therapy will let her know when that is allowed. pt verbalized understanding.
[2019-09-28] MEDS: Lidocaine 5% Patch 1 PATCH TOPICAL (17:04)
[2019-09-28] MEDS: Fluticasone 0.05% 1 SPRAY NASAL.SRY 2 SPRAY NASAL (21:45)
[2019-09-28] MEDS: traZODone 50 MG Tablet PO (21:45)
[2019-09-28] MEDS: Amitriptyline 25 MG Tablet PO (21:47)
[2019-09-29] MEDS: Azelastine HCl NASAL.SRY 2 SPRAY NASAL (05:27)
[2019-09-29] MEDS: Furosemide 40 MG Tablet PO (05:28)
[2019-09-29] MEDS: Lisinopril 20 MG Tablet PO (05:28)
[2019-09-29] MEDS: Ciprofloxacin 250 MG Tablet PO ×2 (05:28→16:56)
[2019-09-29] MEDS: Levothyroxine 50 MCG Tablet PO (05:28)
[2019-09-29] MEDS: amLODIPine 5 MG Tablet PO (05:28)
[2019-09-29] MEDS: Gabapentin 300 MG Capsule PO ×3 (05:28→21:24)
[2019-09-29] MEDS: Pantoprazole Sodium 40 MG Tablet PO ×2 (05:28→16:56)
[2019-09-29] MEDS: guaiFENesin 600 MG Tablet PO ×2 (05:28→16:56)
[2019-09-29] MEDS: Polyethylene Glycol 3350 17 GM PACKET PO (05:31)
[2019-09-29] MEDS: Menthol/Lanolin/Calamine/Znox 113 GM Tube 1 APPLIC TOPICAL ×2 (05:32→21:25)
[2019-09-29] MEDS: traMADol 50 MG Tablet PO ×3 (05:37→21:22)
[2019-09-29] MEDS: Acetaminophen 500 MG Tablet 1000 MG PO (08:05)
[2019-09-29] MEDS: Iron Polysaccharide Complex 150 MG CAPSULE PO (08:05)
--- NOTE | 2019-09-29 13:10 | MDS.RN ---
Information for the mds was obtained from review of the clinical record, interview of resident, staff, and direct observation of resident's care.
[2019-09-29 16:00] VITALS: BP 109/63; PULSE 76; RESP 16; TEMP 36.7; O2SAT 98
[2019-09-29] MEDS: Lidocaine 5% Patch 1 PATCH TOPICAL (16:55)
[2019-09-29] MEDS: Senna/Docusate Sodium 1 Tablet 2 TABLET PO (16:56)
[2019-09-29] MEDS: Fluticasone 0.05% 1 SPRAY NASAL.SRY 2 SPRAY NASAL (21:22)
[2019-09-29] MEDS: traZODone 50 MG Tablet PO (21:23)
[2019-09-29] MEDS: Amitriptyline 25 MG Tablet PO (21:24)
[2019-09-30] MEDS: Azelastine HCl NASAL.SRY 2 SPRAY NASAL (04:54)
[2019-09-30] MEDS: Menthol/Lanolin/Calamine/Znox 113 GM Tube 1 APPLIC TOPICAL ×2 (04:54→21:44)
[2019-09-30] MEDS: Senna/Docusate Sodium 1 Tablet 2 TABLET PO ×2 (04:55→17:22)
[2019-09-30] MEDS: Levothyroxine 50 MCG Tablet PO (04:55)
[2019-09-30] MEDS: Pantoprazole Sodium 40 MG Tablet PO ×2 (04:55→17:22)
[2019-09-30] MEDS: amLODIPine 5 MG Tablet PO (04:55)
[2019-09-30] MEDS: Furosemide 40 MG Tablet PO (04:56)
[2019-09-30] MEDS: Ciprofloxacin 250 MG Tablet PO ×2 (04:56→17:22)
[2019-09-30] MEDS: guaiFENesin 600 MG Tablet PO ×2 (04:56→17:22)
[2019-09-30] MEDS: Gabapentin 300 MG Capsule PO ×3 (04:56→21:45)
[2019-09-30] MEDS: traMADol 50 MG Tablet PO ×3 (04:59→21:45)
[2019-09-30] MEDS: Lisinopril 20 MG Tablet PO (05:04)
[2019-09-30] MEDS: Polyethylene Glycol 3350 17 GM PACKET PO (08:15)
[2019-09-30] MEDS: Iron Polysaccharide Complex 150 MG CAPSULE PO (08:16)
[2019-09-30] MEDS: HYDROcodone Bitartrate/Apap 5/325 Tablet PO ×2 (09:11→23:22)
[2019-09-30 15:58] VITALS: BP 118/54; PULSE 76; RESP 18; TEMP 36.7; O2SAT 95
[2019-09-30] MEDS: Lidocaine 5% Patch 1 PATCH TOPICAL (17:22)
[2019-09-30] MEDS: Amitriptyline 25 MG Tablet PO (21:44)
[2019-09-30] MEDS: traZODone 50 MG Tablet PO (21:45)
[2019-09-30] MEDS: Fluticasone 0.05% 1 SPRAY NASAL.SRY 2 SPRAY NASAL (21:45)
[2019-10-01] MEDS: Lisinopril 20 MG Tablet PO (05:05)
[2019-10-01] MEDS: Pantoprazole Sodium 40 MG Tablet PO ×2 (05:05→17:20)
[2019-10-01] MEDS: guaiFENesin 600 MG Tablet PO ×2 (05:05→17:20)
[2019-10-01] MEDS: Gabapentin 300 MG Capsule PO ×3 (05:05→21:03)
[2019-10-01] MEDS: Senna/Docusate Sodium 1 Tablet 2 TABLET PO (05:05)
[2019-10-01] MEDS: traMADol 50 MG Tablet PO ×3 (05:05→21:08)
[2019-10-01] MEDS: Azelastine HCl NASAL.SRY 2 SPRAY NASAL (05:05)
[2019-10-01] MEDS: Levothyroxine 50 MCG Tablet PO (05:05)
[2019-10-01] MEDS: Ciprofloxacin 250 MG Tablet PO ×2 (05:05→17:20)
[2019-10-01] MEDS: amLODIPine 5 MG Tablet PO (05:05)
[2019-10-01] MEDS: Furosemide 40 MG Tablet PO (05:06)
[2019-10-01] MEDS: Iron Polysaccharide Complex 150 MG CAPSULE PO (07:43)
[2019-10-01] MEDS: Polyethylene Glycol 3350 17 GM PACKET PO (07:43)
[2019-10-01 07:54] VITALS: PULSE 73; RESP 16; O2SAT 96
[2019-10-01] MEDS: HYDROcodone Bitartrate/Apap 5/325 Tablet PO ×2 (15:13→23:19)
[2019-10-01 16:00] VITALS: BP 102/63; PULSE 91; RESP 20; TEMP 36.2; O2SAT 90
--- NOTE | 2019-10-01 17:20 | NURSING ---
PT DID NOT WANT LIDODERM PATCH THIS EVENING, WANTING TO SEE IF SHE CAN DO WITHOUT IT
[2019-10-01] MEDS: Menthol/Lanolin/Calamine/Znox 113 GM Tube 1 APPLIC TOPICAL (17:22)
[2019-10-01] MEDS: traZODone 50 MG Tablet PO (21:03)
[2019-10-01] MEDS: Amitriptyline 25 MG Tablet PO (21:03)
[2019-10-01] MEDS: Fluticasone 0.05% 1 SPRAY NASAL.SRY 2 SPRAY NASAL (21:04)
[2019-10-02] MEDS: HYDROcodone Bitartrate/Apap 5/325 Tablet PO (03:22)
[2019-10-02] MEDS: Azelastine HCl NASAL.SRY 2 SPRAY NASAL (06:01)
[2019-10-02] MEDS: traMADol 50 MG Tablet PO ×3 (06:01→21:50)
[2019-10-02] MEDS: Pantoprazole Sodium 40 MG Tablet PO ×2 (06:02→17:39)
[2019-10-02] MEDS: Levothyroxine 50 MCG Tablet PO (06:03)
[2019-10-02] MEDS: guaiFENesin 600 MG Tablet PO ×2 (06:03→17:39)
[2019-10-02] MEDS: Lisinopril 20 MG Tablet PO (06:03)
[2019-10-02] MEDS: amLODIPine 5 MG Tablet PO (06:03)
[2019-10-02] MEDS: Furosemide 40 MG Tablet PO (06:03)
[2019-10-02] MEDS: Gabapentin 300 MG Capsule PO ×3 (06:03→21:50)
[2019-10-02] MEDS: Ciprofloxacin 250 MG Tablet PO ×2 (06:04→17:39)
[2019-10-02] MEDS: Menthol/Lanolin/Calamine/Znox 113 GM Tube 1 APPLIC TOPICAL ×2 (06:06→17:40)
[2019-10-02] MEDS: Iron Polysaccharide Complex 150 MG CAPSULE PO (08:07)
[2019-10-02] MEDS: Polyethylene Glycol 3350 17 GM PACKET PO (08:07)
[2019-10-02 15:39] VITALS: BP 124/63; PULSE 93; RESP 22; TEMP 36.9; O2SAT 97
[2019-10-02] MEDS: Acetaminophen 500 MG Tablet 1000 MG PO (17:43)
[2019-10-02] MEDS: Fluticasone 0.05% 1 SPRAY NASAL.SRY 2 SPRAY NASAL (21:49)
[2019-10-02] MEDS: Amitriptyline 25 MG Tablet PO (21:50)
[2019-10-02] MEDS: traZODone 50 MG Tablet PO (21:50)
[2019-10-02 21:53] VITALS: PULSE 84; O2SAT 94
[2019-10-03] MEDS: Furosemide 40 MG Tablet PO (05:35)
[2019-10-03] MEDS: traMADol 50 MG Tablet PO ×3 (05:35→20:46)
[2019-10-03] MEDS: Azelastine HCl NASAL.SRY 2 SPRAY NASAL (05:35)
[2019-10-03] MEDS: Gabapentin 300 MG Capsule PO ×3 (05:35→20:51)
[2019-10-03] MEDS: Levothyroxine 50 MCG Tablet PO (05:36)
[2019-10-03] MEDS: Lisinopril 20 MG Tablet PO (05:36)
[2019-10-03] MEDS: amLODIPine 5 MG Tablet PO (05:36)
[2019-10-03] MEDS: Pantoprazole Sodium 40 MG Tablet PO ×2 (05:36→17:10)
[2019-10-03] MEDS: guaiFENesin 600 MG Tablet PO ×2 (05:36→17:09)
[2019-10-03] MEDS: Ciprofloxacin 250 MG Tablet PO ×2 (05:37→17:09)
[2019-10-03 06:03] LABS: Absolute Lymphocyte Count 1.04 X10^3/uL (0.83-4.51); Absolute Neutrophil Count 3.4 X10^3/uL (2.0-7.7); Basophil# 0.06 X10^3/uL; Basophil% 1.1 % (0-1); Eosinophil# 0.31 X10^3/uL; Eosinophils% 5.6 % (0-5); Hemoglobin 9.6 g/dL (12.0-15.0); Lymphocyte # 1.04 X10^3/ul (4.0); Lymphocyte % 18.9 % (19-41); Mean Corpuscular Hgb 30.9 pg (27.0-32.0); Mean Corpuscular Volume 96.5 fL (81-99); Mean Platelet Vol. 9.4 fl (6.2-12.0); Monocyte# 0.66 X10^3/uL; NRBC Flagged by Analyzer 0 % (0-5); Neutrophil # 3.42 X10^3/uL (2.7-7.7); Platelet Count 315 K/mm3 (150-450); RBC Distribution Width CV 12.3 % (11.6-14.6); Red Blood Count 3.11 M/mm3 (4.2-5.4); White Blood Count 5.5 K/mm3 (4.4-11.0)
[2019-10-03 06:05] VITALS: PULSE 82; O2SAT 97
[2019-10-03 06:20] LABS: Anion Gap 5 (5-15); BUN 23 mg/dL (7-18); BUN/Creat Ratio 22.8 RATIO (10-20); Calcium,Total 8.6 mg/dL (8.5-10.1); Chloride 104 mmol/L (98-107); Creatinine, Serum 1.01 mg/dL (0.55-1.02); EST Glomerular Filtration Rate 56 mL/min (>60); Est Glom Filt Rate - Afr Amer 67 mL/min (>60); Glucose 89 mg/dL (74-106); Sodium Level 138 mmol/L (136-145)
[2019-10-03] MEDS: Iron Polysaccharide Complex 150 MG CAPSULE PO (07:46)
[2019-10-03] MEDS: Polyethylene Glycol 3350 17 GM PACKET PO (07:46)
[2019-10-03] MEDS: HYDROcodone Bitartrate/Apap 5/325 Tablet PO ×2 (08:30→15:29)
[2019-10-03] MEDS: Lidocaine 5% Patch 1 PATCH TOPICAL (09:18)
[2019-10-03 15:29] VITALS: BP 117/62; PULSE 76; RESP 20; TEMP 36.8; O2SAT 98
[2019-10-03] MEDS: traZODone 50 MG Tablet PO (20:51)
[2019-10-03] MEDS: Fluticasone 0.05% 1 SPRAY NASAL.SRY 2 SPRAY NASAL (20:51)
[2019-10-03] MEDS: Amitriptyline 25 MG Tablet PO (20:51)
[2019-10-04] MEDS: Azelastine HCl NASAL.SRY 2 SPRAY NASAL (06:57)
[2019-10-04] MEDS: amLODIPine 5 MG Tablet PO (06:58)
[2019-10-04] MEDS: Lisinopril 20 MG Tablet PO (06:58)
[2019-10-04] MEDS: Pantoprazole Sodium 40 MG Tablet PO ×2 (06:58→16:51)
[2019-10-04] MEDS: Furosemide 40 MG Tablet PO (06:58)
[2019-10-04] MEDS: guaiFENesin 600 MG Tablet PO ×2 (06:58→16:50)
[2019-10-04] MEDS: Gabapentin 300 MG Capsule PO ×3 (06:58→21:35)
[2019-10-04] MEDS: Ciprofloxacin 250 MG Tablet PO ×2 (06:58→16:51)
[2019-10-04] MEDS: Levothyroxine 50 MCG Tablet PO (06:58)
[2019-10-04] MEDS: traMADol 50 MG Tablet PO ×3 (07:10→21:34)
[2019-10-04] MEDS: Lidocaine 5% Patch 1 PATCH TOPICAL (08:48)
[2019-10-04] MEDS: Polyethylene Glycol 3350 17 GM PACKET PO (08:48)
[2019-10-04] MEDS: Iron Polysaccharide Complex 150 MG CAPSULE PO (08:48)
[2019-10-04 16:00] VITALS: BP 114/61; PULSE 96; RESP 18; TEMP 36.8; O2SAT 98
[2019-10-04] MEDS: HYDROcodone Bitartrate/Apap 5/325 Tablet PO (20:07)
[2019-10-04] MEDS: traZODone 50 MG Tablet PO (21:35)
[2019-10-04] MEDS: Amitriptyline 25 MG Tablet PO (21:35)
[2019-10-04] MEDS: Fluticasone 0.05% 1 SPRAY NASAL.SRY 2 SPRAY NASAL (21:35)
[2019-10-05] MEDS: traMADol 50 MG Tablet PO ×3 (06:16→21:11)
[2019-10-05] MEDS: Pantoprazole Sodium 40 MG Tablet PO ×2 (06:17→16:39)
[2019-10-05] MEDS: Gabapentin 300 MG Capsule PO ×3 (06:17→21:13)
[2019-10-05] MEDS: Lisinopril 20 MG Tablet PO (06:17)
[2019-10-05] MEDS: Azelastine HCl NASAL.SRY 2 SPRAY NASAL (06:17)
[2019-10-05] MEDS: Furosemide 40 MG Tablet PO (06:17)
[2019-10-05] MEDS: guaiFENesin 600 MG Tablet PO ×2 (06:17→16:39)
[2019-10-05] MEDS: Levothyroxine 50 MCG Tablet PO (06:18)
[2019-10-05] MEDS: amLODIPine 5 MG Tablet PO (06:18)
[2019-10-05] MEDS: Iron Polysaccharide Complex 150 MG CAPSULE PO (08:09)
[2019-10-05] MEDS: Lidocaine 5% Patch 1 PATCH TOPICAL (08:09)
[2019-10-05] MEDS: Polyethylene Glycol 3350 17 GM PACKET PO (08:09)
[2019-10-05] MEDS: Acetaminophen 500 MG Tablet 1000 MG PO (11:49)
[2019-10-05] MEDS: Mag Hydrox/Al Hydrox/Simeth 30 ML UDC PO (11:50)
[2019-10-05 15:49] VITALS: BP 108/52; PULSE 73; RESP 18; TEMP 36.8; O2SAT 98
[2019-10-05] MEDS: Fluticasone 0.05% 1 SPRAY NASAL.SRY 2 SPRAY NASAL (21:12)
[2019-10-05] MEDS: Amitriptyline 25 MG Tablet PO (21:13)
[2019-10-05] MEDS: traZODone 50 MG Tablet PO (21:13)
[2019-10-06] MEDS: traMADol 50 MG Tablet PO ×3 (06:18→21:55)
[2019-10-06] MEDS: Levothyroxine 50 MCG Tablet PO (06:19)
[2019-10-06] MEDS: Lisinopril 20 MG Tablet PO (06:19)
[2019-10-06] MEDS: Gabapentin 300 MG Capsule PO ×3 (06:19→21:55)
[2019-10-06] MEDS: guaiFENesin 600 MG Tablet PO ×2 (06:19→17:18)
[2019-10-06] MEDS: amLODIPine 5 MG Tablet PO (06:19)
[2019-10-06] MEDS: Pantoprazole Sodium 40 MG Tablet PO ×2 (06:19→17:18)
[2019-10-06] MEDS: Azelastine HCl NASAL.SRY 2 SPRAY NASAL (06:19)
[2019-10-06] MEDS: Furosemide 40 MG Tablet PO (06:20)
[2019-10-06] MEDS: Iron Polysaccharide Complex 150 MG CAPSULE PO (07:59)
[2019-10-06] MEDS: Polyethylene Glycol 3350 17 GM PACKET PO (07:59)
[2019-10-06] MEDS: Mag Hydrox/Al Hydrox/Simeth 30 ML UDC PO (09:08)
[2019-10-06 10:00] VITALS: PULSE 56; O2SAT 94
[2019-10-06 15:29] VITALS: BP 124/65; PULSE 77; RESP 16; TEMP 36.9; O2SAT 97
[2019-10-06] MEDS: Fluticasone 0.05% 1 SPRAY NASAL.SRY 2 SPRAY NASAL (21:55)
[2019-10-06] MEDS: Amitriptyline 25 MG Tablet PO (21:55)
[2019-10-06] MEDS: traZODone 50 MG Tablet PO (21:56)
[2019-10-07] MEDS: traMADol 50 MG Tablet PO ×3 (05:11→21:30)
[2019-10-07] MEDS: Azelastine HCl NASAL.SRY 2 SPRAY NASAL (05:11)
[2019-10-07] MEDS: Furosemide 40 MG Tablet PO (05:12)
[2019-10-07] MEDS: guaiFENesin 600 MG Tablet PO ×2 (05:12→16:56)
[2019-10-07] MEDS: Gabapentin 300 MG Capsule PO ×3 (05:12→21:31)
[2019-10-07] MEDS: Pantoprazole Sodium 40 MG Tablet PO ×2 (05:12→16:56)
[2019-10-07] MEDS: amLODIPine 5 MG Tablet PO (05:12)
[2019-10-07] MEDS: Levothyroxine 50 MCG Tablet PO (05:12)
[2019-10-07] MEDS: Lisinopril 20 MG Tablet PO (05:12)
[2019-10-07] MEDS: Iron Polysaccharide Complex 150 MG CAPSULE PO (07:53)
[2019-10-07] MEDS: Polyethylene Glycol 3350 17 GM PACKET PO (07:53)
--- NOTE | 2019-10-07 11:42 | CASEMGMT ---
Social Work SW spoke with therapists and pt on this date. Pt is progressing with therapy. Weight bearing status is limiting pt ability to return home. Follow up appointment with Orthopedic on 10/13/18 and pt stating they will decide at that appointment if she can be placed in a boot and start bearing weight. Pt is hopeful this will happen as she thinks she will then be able to progress toward goal of returning to her home with her . Pt lives in a first floor condo with no steps and walk in shower. SW will continue to follow for d/c planning and support. ELIZABETH Montoya
[2019-10-07 16:00] VITALS: BP 103/55; PULSE 82; RESP 20; TEMP 36.4; O2SAT 96
[2019-10-07] MEDS: Fluticasone 0.05% 1 SPRAY NASAL.SRY 2 SPRAY NASAL (21:31)
[2019-10-07] MEDS: traZODone 50 MG Tablet PO (21:32)
[2019-10-07] MEDS: Amitriptyline 25 MG Tablet PO (21:32)
[2019-10-08] MEDS: HYDROcodone Bitartrate/Apap 5/325 Tablet PO ×2 (01:42→23:15)
[2019-10-08] MEDS: Lisinopril 20 MG Tablet PO (04:58)
[2019-10-08] MEDS: Furosemide 40 MG Tablet PO (04:58)
[2019-10-08] MEDS: guaiFENesin 600 MG Tablet PO ×2 (04:58→17:12)
[2019-10-08] MEDS: Gabapentin 300 MG Capsule PO ×3 (04:58→21:22)
[2019-10-08] MEDS: Levothyroxine 50 MCG Tablet PO (04:59)
[2019-10-08] MEDS: Azelastine HCl NASAL.SRY 2 SPRAY NASAL (04:59)
[2019-10-08] MEDS: Pantoprazole Sodium 40 MG Tablet PO ×2 (04:59→17:13)
[2019-10-08] MEDS: amLODIPine 5 MG Tablet PO (04:59)
[2019-10-08] MEDS: traMADol 50 MG Tablet PO ×3 (04:59→21:20)
[2019-10-08] MEDS: Iron Polysaccharide Complex 150 MG CAPSULE PO (08:42)
[2019-10-08] MEDS: Polyethylene Glycol 3350 17 GM PACKET PO (08:42)
[2019-10-08] MEDS: Lidocaine 5% Patch 1 PATCH TOPICAL (13:10)
[2019-10-08 16:00] VITALS: BP 116/54; PULSE 77; RESP 20; TEMP 36.3; O2SAT 96
[2019-10-08] MEDS: Fluticasone 0.05% 1 SPRAY NASAL.SRY 2 SPRAY NASAL (21:20)
[2019-10-08] MEDS: traZODone 50 MG Tablet PO (21:21)
[2019-10-08] MEDS: Amitriptyline 25 MG Tablet PO (21:21)
[2019-10-09] MEDS: Azelastine HCl NASAL.SRY 2 SPRAY NASAL (05:53)
[2019-10-09] MEDS: Gabapentin 300 MG Capsule PO ×3 (05:54→20:44)
[2019-10-09] MEDS: Levothyroxine 50 MCG Tablet PO (05:54)
[2019-10-09] MEDS: Pantoprazole Sodium 40 MG Tablet PO ×2 (05:54→16:47)
[2019-10-09] MEDS: traMADol 50 MG Tablet PO ×3 (05:54→20:43)
[2019-10-09] MEDS: Lisinopril 20 MG Tablet PO (05:54)
[2019-10-09] MEDS: amLODIPine 5 MG Tablet PO (05:54)
[2019-10-09] MEDS: guaiFENesin 600 MG Tablet PO ×2 (05:54→16:47)
[2019-10-09] MEDS: Furosemide 40 MG Tablet PO (05:54)
[2019-10-09] MEDS: Senna/Docusate Sodium 1 Tablet 2 TABLET PO (05:55)
[2019-10-09] MEDS: Polyethylene Glycol 3350 17 GM PACKET PO (07:57)
[2019-10-09] MEDS: Iron Polysaccharide Complex 150 MG CAPSULE PO (07:57)
[2019-10-09] MEDS: Acetaminophen 500 MG Tablet 1000 MG PO (07:59)
[2019-10-09] MEDS: HYDROcodone Bitartrate/Apap 5/325 Tablet PO (10:03)
[2019-10-09 15:25] VITALS: BP 102/54; PULSE 93; RESP 22; TEMP 36.9; O2SAT 96
[2019-10-09] MEDS: traZODone 50 MG Tablet PO (20:43)
[2019-10-09] MEDS: Amitriptyline 25 MG Tablet PO (20:43)
[2019-10-09] MEDS: Fluticasone 0.05% 1 SPRAY NASAL.SRY 2 SPRAY NASAL (20:44)
[2019-10-10] MEDS: Azelastine HCl NASAL.SRY 2 SPRAY NASAL (05:23)
[2019-10-10] MEDS: Gabapentin 300 MG Capsule PO ×3 (05:23→22:24)
[2019-10-10] MEDS: guaiFENesin 600 MG Tablet PO ×2 (05:23→16:48)
[2019-10-10] MEDS: Furosemide 40 MG Tablet PO (05:23)
[2019-10-10] MEDS: Levothyroxine 50 MCG Tablet PO (05:23)
[2019-10-10] MEDS: Lisinopril 20 MG Tablet PO (05:24)
[2019-10-10] MEDS: Pantoprazole Sodium 40 MG Tablet PO ×2 (05:24→16:48)
[2019-10-10] MEDS: traMADol 50 MG Tablet PO ×3 (05:24→22:25)
[2019-10-10] MEDS: amLODIPine 5 MG Tablet PO (05:24)
[2019-10-10] MEDS: Senna/Docusate Sodium 1 Tablet 2 TABLET PO (05:24)
[2019-10-10 05:42] LABS: Absolute Lymphocyte Count 1.13 X10^3/uL (0.83-4.51); Absolute Neutrophil Count 3.6 X10^3/uL (2.0-7.7); Basophil# 0.05 X10^3/uL; Basophil% 0.9 % (0-1); Eosinophil# 0.35 X10^3/uL; Eosinophils% 6.3 % (0-5); Lymphocyte # 1.13 X10^3/ul (4.0); Lymphocyte % 20.2 % (19-41); Mean Corp Hgb Conc 31.4 g/dL (32-36); Mean Corpuscular Hgb 30.2 pg (27.0-32.0); Mean Corpuscular Volume 96.2 fL (81-99); Mean Platelet Vol. 9.3 fl (6.2-12.0); Monocyte# 0.47 X10^3/uL; Monocyte% 8.4 % (0-10); NRBC Flagged by Analyzer 0 % (0-5); Neutrophil # 3.58 X10^3/uL (2.7-7.7); Platelet Count 308 K/mm3 (150-450); RBC Distribution Width CV 12.1 % (11.6-14.6); RBC Distribution Width SD 42.6 fl (35.1-43.9); Red Blood Count 3.64 M/mm3 (4.2-5.4); White Blood Count 5.6 K/mm3 (4.4-11.0)
[2019-10-10 06:17] LABS: Anion Gap 5 (5-15); BUN 31 mg/dL (7-18); BUN/Creat Ratio 26.5 RATIO (10-20); Calcium,Total 9.3 mg/dL (8.5-10.1); Chloride 104 mmol/L (98-107); Creatinine, Serum 1.17 mg/dL (0.55-1.02); EST Glomerular Filtration Rate 47 mL/min (>60); Est Glom Filt Rate - Afr Amer 57 mL/min (>60); Estimated Creatinine Clearance 41.78 ml/min; Glucose 86 mg/dL (74-106); Potassium 4.5 mmol/L (3.5-5.1); Sodium Level 138 mmol/L (136-145)
[2019-10-10] MEDS: Iron Polysaccharide Complex 150 MG CAPSULE PO (07:40)
[2019-10-10] MEDS: Polyethylene Glycol 3350 17 GM PACKET PO (07:40)
[2019-10-10] MEDS: HYDROcodone Bitartrate/Apap 5/325 Tablet PO (09:07)
--- NOTE | 2019-10-10 15:56 | PCM.DC ---
- Discharge Diagnoses Current Active Problems: Current Active and Chronic Problems (Last Reviewed 02/17/19 @ 10:13 by Sandra Hanley) Debility (Acute) Closed left ankle fracture (Acute) You will use the following diet at home:: No restrictions, Regular Your food should be the consistency of: Regular Your liquids should be the consistency of: Regular/Thin Discharge Activity: Return to Normal Activity, May Shower, Use Walker Weight Bearing Status: No weight bearing - Left lower extremity. Call your doctor if you observe: Fever of 101 or Higher, Inability to urinate, Inability to have a bowel movement, Shortness of breath, Dizziness, Chest pain, Uncontrolled pain Allergies/Adverse Reactions: Allergies grass pollen-perennial rye, standar [grass poll-perennial rye,std] Allergy (Verified 02/17/19 10:59) sinus pressure gluten Adverse Reaction (Verified 02/17/19 10:59) Food Allergy lactose Adverse Reaction (Verified 02/17/19 10:59) Food Allergy DUST Allergy (Uncoded 02/17/19 10:59) sinus pressure MOLD Allergy (Uncoded 02/17/19 10:59) SINUS PRESSURE Medications to take at Discharge Amlodipine [Norvasc] 5 mg PO DAILY 12/31/14 Gabapentin [Neurontin] 300 mg PO TID 12/31/14 Levothyroxine [Synthroid] 50 mcg PO DAILY 12/31/14 Lisinopril [Zestril] 20 mg PO DAILY 12/31/14 traZODone [Desyrel] 50 mg PO QHS 12/31/14 Cetirizine HCl [Zyrtec] 5 mg PO PRN PRN 03/09/17 Fluticasone 0.05% [Flonase Nasal [place]] 2 spray NASAL QHS 03/09/17 Amitriptyline HCl 25 mg PO QHS 11/05/18 Azelastine HCl [Astelin] 2 spray NASAL DAILY 11/05/18 Pantoprazole Sodium [Protonix] 40 mg PO BID 09/18/19 Acetaminophen [Tylenol] 1,000 mg PO Q8H PRN PRN tablet 10/10/19 Calcium Carbonate [Tums] 500 mg PO DAILY PRN tablet 10/10/19 Furosemide [Lasix] 40 mg PO DAILY #30 tab 10/10/19 Guaifenesin [Mucinex] 600 mg PO BID tablet 10/10/19 Hydrocodone Bitart/Apap 5-325 [[employer] 5/325] 1 tablet PO Q4H PRN PRN 7 Days #42 tablet 10/10/19 Lidocaine [Lidoderm Patch] 1 patch TOPICAL DAILY@0800 #30 patch 10/10/19 Mag Hydrox/Al Hydrox/Simeth [Mylanta II] 30 ml PO Q6H PRN PRN udc 10/10/19 Menthol/Lanolin/Calamine/Znox [Calmoseptine Ointment] 1 applic TOPICAL BID PRN tube 10/10/19 Polyethylene Glycol 3350 [Miralax] 17 gm PO DAILY #30 packet 10/10/19 Senna/Docusate Sodium [Senokot-S] 2 tab PO BID #120 tab 10/10/19 traMADol [Ultram] 50 mg PO TID #45 tablet 10/10/19 The following prescriptions were given: Furosemide [Lasix] 40 mg PO DAILY #30 tab Transmission Status: [facility] Lidocaine [Lidoderm Patch] 1 patch TOPICAL DAILY@0800 #30 patch Transmission Status: Pending to [facility] Polyethylene Glycol 3350 [Miralax] 17 gm PO DAILY #30 packet Transmission Status: Pending to [facility] Hydrocodone Bitart/Apap 5-325 [[employer] 5/325] 1 tablet PO Q4H PRN PRN 7 Days #42 tablet PRN Reason: Pain 6-10/10 Transmission Status: Sent to [facility] Senna/Docusate Sodium [Senokot-S] 2 tab PO BID #120 tab Transmission Status: Pending to [facility] traMADol [Ultram] 50 mg PO TID #45 tablet Transmission Status: [facility] Primary Care Physician: Roma Grajeda DO [Primary Care Provider] - Please follow up with your Primary Care Physician in: 1 week. Test Results: Test results from this visit will be discussed in further detail at your follow-up appointment, if applicable. Please Follow Up With: Joni Boland MD When: 2 weeks. Proposed Discharge Date: 10/14/19
--- NOTE | 2019-10-10 15:58 | PCM.DC.SUM ---
Discharge Date and Diagnosis - Problem List Patient Problems: Active and Suspected Problems (Last Reviewed 02/17/19 @ 10:13 by Sandra Hanley) Debility (Acute) Closed left ankle fracture (Acute) Date of Admission: 09/18/19 Date of Discharge: 10/14/19 - Primary Discharge Diagnosis Active and Suspected Problems (Last Reviewed 02/17/19 @ 10:13 by Sandra Hanley) Debility (Acute) Closed left ankle fracture (Acute) - Secondary Discharge Diagnosis Chronic Problems (Last Reviewed 02/17/19 @ 10:13 by Sandra Hanley) Peptic ulcer disease (Chronic) Osteoarthritis of right hip (Chronic) Low back pain (Chronic) Allergic rhinitis (Chronic) Osteoporosis (Chronic) Asthma (Chronic) Insomnia (Chronic) Recurrent UTI (Chronic) Constipation (Chronic) Overactive bladder (Chronic) History of peptic ulcer disease (Chronic) Hypothyroidism (Chronic) Hypertension (Chronic) Hospital Course and Treatment Imaging Results: 09/18/19 16:21 Diet: Regular Diet Food consistency:: Regular Liquid Consistency:: Regular/Thin Is pt able to select menu?: Yes Diet Comments: pt knows what food items she can tolerate w/gluten and lactose. Labs (Last 48 Hours) 10/10/19 10/10/19 05:25 05:25 WBC 5.6 RBC 3.64 L Hgb 11.0 L Hct 35.0 L MCV 96.2 MCH 30.2 MCHC 31.4 L RDW Std Deviation 42.6 RDW Coeff of Laury 12.1 Plt Count 308 MPV 9.3 Immature Gran % (Auto) 0.200 Neut % (Auto) 64.0 Lymph % (Auto) 20.2 Tama % (Auto) 8.4 Eos % (Auto) 6.3 H Baso % (Auto) 0.9 Absolute Neuts (auto) 3.6 Absolute Lymphs (auto) 1.13 Nucleated RBC % 0 Sodium 138 Potassium 4.5 Chloride 104 Carbon Dioxide 29.0 Anion Gap 5 BUN 31 H Creatinine 1.17 H Estim Creat Clear Calc 41.78 Est GFR (MDRD) Af Amer 57 L Est GFR (MDRD) Non-Af 47 L BUN/Creatinine Ratio 26.5 H Glucose 86 Calcium 9.3 Operations: None, - - ORIF right hip fracture Procedures: None Summary of Care Provided: The patient is a 83 year old Female with below past medical history hospitalized for left total ankle replacement 09/16/2019, admitted to TCU with debility, here for rehabilitation, strengthening, prior to discharge home with . Discharge home with , outpatient PT/OT. Patient Problems: Active and Suspected Problems (Last Reviewed 02/17/19 @ 10:13 by Sandra Hanley) Debility (Acute) Closed left ankle fracture (Acute) - Physical Exam Vitals/I&O's: Vital Signs Temp Pulse Resp BP Pulse Ox 98.4 F 93 22 H 102/54 L 96 10/09/19 15:25 10/09/19 15:25 10/09/19 15:25 10/09/19 15:25 10/09/19 15:25 Oxygen Delivery Method Room Air Weight: 71.395 kg Body Mass Index (BMI) 29.8 Intake and Output for Last 24 Hours 10/08/19 10/09/19 10/10/19 23:59 23:59 23:59 Intake Total 1090 / 1090 1160 / 1160 840 / 840 Balance 1090 / 1090 1160 / 1160 840 / 840 Laboratory Results 10/10/19 05:25: WBC 5.6, RBC 3.64 L, Hgb 11.0 L, Hct 35.0 L, MCV 96.2, MCH 30.2, MCHC 31.4 L, RDW Std Deviation 42.6, RDW Coeff of Laury 12.1, Plt Count 308, MPV 9.3, Immature Gran % (Auto) 0.200, Neut % (Auto) 64.0, Lymph % (Auto) 20.2, Tama % (Auto) 8.4, Eos % (Auto) 6.3 H, Baso % (Auto) 0.9, Absolute Neuts (auto) 3.6, Absolute Lymphs (auto) 1.13, Nucleated RBC % 0 10/10/19 05:25: Sodium 138, Potassium 4.5, Chloride 104, Carbon Dioxide 29.0, Anion Gap 5, BUN 31 H, Creatinine 1.17 H, Estim Creat Clear Calc 41.78, Est GFR (MDRD) Af Amer 57 L, Est GFR (MDRD) Non-Af 47 L, BUN/Creatinine Ratio 26.5 H, Glucose 86, Calcium 9.3 Current Medications Acetaminophen (Tylenol) 1,000 mg PO Q8H PRN PRN PRN Reason: Pain Score 1-5/10 Last Admin: 10/09/19 07:59 Dose: 1,000 mg Documented by: Hydrocodone Bitart/Acetaminophen (Kismet 5mg-325mg) 1 tablet PO Q4H PRN PRN PRN Reason: Pain 6-10/10 Last Admin: 10/10/19 09:07 Dose: 1 tablet Documented by: Al Hydroxide/Mg Hydroxide (Mylanta Ii) 30 ml PO Q6H PRN PRN PRN Reason: DYSPEPSIA/INDIGESTION Last Admin: 10/06/19 09:08 Dose: 30 ml Documented by: Amitriptyline HCl (Elavil) 25 mg PO QHS [facility] Last Admin: 10/09/19 20:43 Dose: 25 mg Documented by: Amlodipine Besylate (Norvasc) 5 mg PO DAILY [facility] Last Admin: 10/10/19 05:24 Dose: 5 mg Documented by: Azelastine HCl (Astelin) 2 spray NASAL DAILY [facility] Last Admin: 10/10/19 05:23 Dose: 2 spray Documented by: Bisacodyl (Dulcolax) 10 mg PO DAILY PRN PRN Reason: Constipation Calamine/Phenol (Calmoseptine Ointment) 1 applic TOPICAL BID PRN; Protocol PRN Reason: REDNESS Calcium Carbonate (Tums) 500 mg PO DAILY PRN PRN Reason: INDIGESTION Last Admin: 09/20/19 14:49 Dose: 500 mg Documented by: Fluticasone Propionate (Flonase Nasal [place]) 2 spray NASAL QHS [facility] Last Admin: 10/09/19 20:44 Dose: 2 spray Documented by: Furosemide (Lasix) 40 mg PO DAILY [facility] Last Admin: 10/10/19 05:23 Dose: 40 mg Documented by: Gabapentin (Neurontin) 300 mg PO TID [facility] Last Admin: 10/10/19 13:03 Dose: 300 mg Documented by: Guaifenesin (Mucinex) 600 mg PO BID [facility] Last Admin: 10/10/19 05:23 Dose: 600 mg Documented by: Levothyroxine Sodium (Synthroid) 50 mcg PO DAILY [facility] Last Admin: 10/10/19 05:23 Dose: 50 mcg Documented by: Lidocaine (Lidoderm Patch) 1 patch TOPICAL DAILY@0800 [facility]; Protocol Last Admin: 10/10/19 07:40 Dose: Not Given Documented by: Lisinopril (Zestril) 20 mg PO DAILY [facility] Last Admin: 10/10/19 05:24 Dose: 20 mg Documented by: Loratadine (Claritin) 10 mg PO DAILY PRN PRN PRN Reason: ALLERGIES Pantoprazole Sodium (Protonix) 40 mg PO BID [facility] Last Admin: 10/10/19 05:24 Dose: 40 mg Documented by: Polyethylene Glycol (Miralax) 17 gm PO 0800 [facility] Last Admin: 10/10/19 07:40 Dose: 17 gm Documented by: Senna/Docusate Sodium (Senokot-S, Stephanie-Colace) 2 tablet PO BID [facility] Last Admin: 10/10/19 05:24 Dose: 1 tablet Documented by: Tramadol HCl (Ultram) 50 mg PO TID [facility] Last Admin: 10/10/19 13:03 Dose: 50 mg Documented by: Trazodone HCl (Desyrel) 50 mg PO QHS [facility] Last Admin: 10/09/19 20:43 Dose: 50 mg Documented by: Discharge Diet: No Restrictions Discharge Activity: Return to Normal Activity, May Shower, Use Walker Weight Bearing Status: No weight bearing - Left lower extremity. Call your doctor if you observe: Fever of 101 or Higher, Inability to urinate, Inability to have a bowel movement, Shortness of breath, Dizziness, Chest pain, Uncontrolled pain Home Medications: Medications to take at Discharge Amlodipine [Norvasc] 5 mg PO DAILY 12/31/14 Gabapentin [Neurontin] 300 mg PO TID 12/31/14 Levothyroxine [Synthroid] 50 mcg PO DAILY 12/31/14 Lisinopril [Zestril] 20 mg PO DAILY 12/31/14 traZODone [Desyrel] 50 mg PO QHS 12/31/14 Cetirizine HCl [Zyrtec] 5 mg PO PRN PRN 03/09/17 Fluticasone 0.05% [Flonase Nasal [place]] 2 spray NASAL QHS 03/09/17 Amitriptyline HCl 25 mg PO QHS 11/05/18 Azelastine HCl [Astelin] 2 spray NASAL DAILY 11/05/18 Pantoprazole Sodium [Protonix] 40 mg PO BID 09/18/19 Acetaminophen [Tylenol] 1,000 mg PO Q8H PRN PRN tablet 10/10/19 Calcium Carbonate [Tums] 500 mg PO DAILY PRN tablet 10/10/19 Furosemide [Lasix] 40 mg PO DAILY #30 tab 10/10/19 Guaifenesin [Mucinex] 600 mg PO BID tablet 10/10/19 Hydrocodone Bitart/Apap 5-325 [Kismet 5/325] 1 tablet PO Q4H PRN PRN 7 Days #42 tablet 10/10/19 Lidocaine [Lidoderm Patch] 1 patch TOPICAL DAILY@0800 #30 patch 10/10/19 Mag Hydrox/Al Hydrox/Simeth [Mylanta II] 30 ml PO Q6H PRN PRN udc 10/10/19 Menthol/Lanolin/Calamine/Znox [Calmoseptine Ointment] 1 applic TOPICAL BID PRN tube 10/10/19 Polyethylene Glycol 3350 [Miralax] 17 gm PO DAILY #30 packet 10/10/19 Senna/Docusate Sodium [Senokot-S] 2 tab PO BID #120 tab 10/10/19 traMADol [Ultram] 50 mg PO TID #45 tablet 10/10/19 Following Prescrptions Were Given to Patient: Furosemide [Lasix] 40 mg PO DAILY #30 tab Transmission Status: [facility] Lidocaine [Lidoderm Patch] 1 patch TOPICAL DAILY@0800 #30 patch Transmission Status: [facility] Polyethylene Glycol 3350 [Miralax] 17 gm PO DAILY #30 packet Transmission Status: [facility] Hydrocodone Bitart/Apap 5-325 [Kismet 5/325] 1 tablet PO Q4H PRN PRN 7 Days #42 tablet PRN Reason: Pain 6-1010 Transmission Status: [facility] Senna/Docusate Sodium [Senokot-S] 2 tab PO BID #120 tab Transmission Status: [facility] traMADol [Ultram] 50 mg PO TID #45 tablet Transmission Status: [facility] Primary Care Physician: Roma Grajeda DO [Primary Care Provider] - Please follow up with your Primary Care Physician in: 1 week. Please Follow Up With: Joni Boland MD When: 2 weeks. Disposition: Home Minutes spent on discharge:: 30 Patient Condition:: Good Medical Necessity - Tobacco Use Smoking Status: Never smoker Tobacco Use: Non-smoker Meaningful Use Info Meaningful Use Diagnoses (Choose all that apply): None applicable
[2019-10-10 16:00] VITALS: BP 108/57; PULSE 71; RESP 20; TEMP 36.6; O2SAT 97
--- NOTE | 2019-10-10 17:05 | CASEMGMT ---
Social Work Spoke with pt and requesting to DC home 10/14 regardless of ortho appt. Pt requesting [facility] PT/OT. Provided list of [facility] agencies. Ordered knee walker through [employer]. Will continue to follow. Plan: DC home with 10/14 with [facility] PT/OT, knee walker [employer] SalmeronW
[2019-10-10] MEDS: traZODone 50 MG Tablet PO (22:24)
[2019-10-10] MEDS: Fluticasone 0.05% 1 SPRAY NASAL.SRY 2 SPRAY NASAL (22:24)
[2019-10-10] MEDS: Amitriptyline 25 MG Tablet PO (22:25)
[2019-10-11] MEDS: HYDROcodone Bitartrate/Apap 5/325 Tablet PO ×2 (02:16→17:11)
[2019-10-11] MEDS: Azelastine HCl NASAL.SRY 2 SPRAY NASAL (04:52)
[2019-10-11] MEDS: Gabapentin 300 MG Capsule PO ×3 (04:53→21:38)
[2019-10-11] MEDS: Lisinopril 20 MG Tablet PO (04:53)
[2019-10-11] MEDS: Levothyroxine 50 MCG Tablet PO (04:53)
[2019-10-11] MEDS: Pantoprazole Sodium 40 MG Tablet PO ×2 (04:53→17:12)
[2019-10-11] MEDS: guaiFENesin 600 MG Tablet PO ×2 (04:53→17:11)
[2019-10-11] MEDS: amLODIPine 5 MG Tablet PO (04:53)
[2019-10-11] MEDS: traMADol 50 MG Tablet PO ×3 (04:55→21:38)
[2019-10-11] MEDS: Furosemide 40 MG Tablet PO (06:52)
[2019-10-11] MEDS: Polyethylene Glycol 3350 17 GM PACKET PO (07:57)
[2019-10-11] MEDS: Lidocaine 5% Patch 1 PATCH TOPICAL (07:57)
[2019-10-11 16:00] VITALS: BP 123/65; PULSE 75; RESP 18; TEMP 36.3; O2SAT 96
[2019-10-11] MEDS: Amitriptyline 25 MG Tablet PO (21:38)
[2019-10-11] MEDS: traZODone 50 MG Tablet PO (21:39)
[2019-10-11] MEDS: Fluticasone 0.05% 1 SPRAY NASAL.SRY 2 SPRAY NASAL (21:39)
[2019-10-12] MEDS: Azelastine HCl NASAL.SRY 2 SPRAY NASAL (05:22)
[2019-10-12] MEDS: traMADol 50 MG Tablet PO ×3 (05:22→21:00)
[2019-10-12] MEDS: Gabapentin 300 MG Capsule PO ×3 (05:23→20:36)
[2019-10-12] MEDS: guaiFENesin 600 MG Tablet PO ×2 (05:23→18:00)
[2019-10-12] MEDS: Furosemide 40 MG Tablet PO (05:23)
[2019-10-12] MEDS: amLODIPine 5 MG Tablet PO (05:23)
[2019-10-12] MEDS: Levothyroxine 50 MCG Tablet PO (05:23)
[2019-10-12] MEDS: Pantoprazole Sodium 40 MG Tablet PO ×2 (05:23→18:00)
[2019-10-12] MEDS: Lisinopril 20 MG Tablet PO (05:24)
[2019-10-12] MEDS: Polyethylene Glycol 3350 17 GM PACKET PO (07:57)
[2019-10-12 15:55] VITALS: BP 107/56; PULSE 89; RESP 16; TEMP 36.8; O2SAT 94
[2019-10-12] MEDS: Fluticasone 0.05% 1 SPRAY NASAL.SRY 2 SPRAY NASAL (20:35)
[2019-10-12] MEDS: Amitriptyline 25 MG Tablet PO (20:36)
[2019-10-12] MEDS: traZODone 50 MG Tablet PO (20:37)
[2019-10-12] MEDS: Acetaminophen 500 MG Tablet 1000 MG PO (21:57)
[2019-10-13] MEDS: Azelastine HCl NASAL.SRY 2 SPRAY NASAL (05:50)
[2019-10-13] MEDS: traMADol 50 MG Tablet PO ×3 (05:50→20:36)
[2019-10-13] MEDS: amLODIPine 5 MG Tablet PO (05:51)
[2019-10-13] MEDS: Furosemide 40 MG Tablet PO (05:51)
[2019-10-13] MEDS: Gabapentin 300 MG Capsule PO ×3 (05:51→20:37)
[2019-10-13] MEDS: Pantoprazole Sodium 40 MG Tablet PO ×2 (05:51→17:14)
[2019-10-13] MEDS: Levothyroxine 50 MCG Tablet PO (05:51)
[2019-10-13] MEDS: Lisinopril 20 MG Tablet PO (05:51)
[2019-10-13] MEDS: guaiFENesin 600 MG Tablet PO ×2 (05:51→17:14)
[2019-10-13] MEDS: Polyethylene Glycol 3350 17 GM PACKET PO (07:51)
[2019-10-13] MEDS: Acetaminophen 500 MG Tablet 1000 MG PO (13:32)
--- NOTE | 2019-10-13 14:07 | CASEMGMT ---
Social Work Medicare does not cover knee walkers. Spoke with pt and whom state does not need it. Provided out of pocket costs and companies who sell it if needed. Pt chose [facility] for PT/OT - referral made. MILLICENT SalmeronW
[2019-10-13 16:00] VITALS: BP 122/60; PULSE 77; RESP 20; TEMP 36.8; O2SAT 99
[2019-10-13] MEDS: Fluticasone 0.05% 1 SPRAY NASAL.SRY 2 SPRAY NASAL (20:37)
[2019-10-13] MEDS: traZODone 50 MG Tablet PO (20:38)
[2019-10-13] MEDS: Amitriptyline 25 MG Tablet PO (20:38)
[2019-10-14 04:53] VITALS: BP 121/61; PULSE 76; O2SAT 98
[2019-10-14] MEDS: traMADol 50 MG Tablet PO (04:53)
[2019-10-14] MEDS: Azelastine HCl NASAL.SRY 2 SPRAY NASAL (04:54)
[2019-10-14] MEDS: Gabapentin 300 MG Capsule PO (04:54)
[2019-10-14] MEDS: Levothyroxine 50 MCG Tablet PO (04:55)
[2019-10-14] MEDS: guaiFENesin 600 MG Tablet PO (04:55)
[2019-10-14] MEDS: Pantoprazole Sodium 40 MG Tablet PO (04:55)
[2019-10-14] MEDS: amLODIPine 5 MG Tablet PO (04:55)
[2019-10-14] MEDS: Furosemide 40 MG Tablet PO (04:55)
[2019-10-14] MEDS: Lisinopril 20 MG Tablet PO (04:56)
[2019-10-14] MEDS: Polyethylene Glycol 3350 17 GM PACKET PO (07:51)
[2019-10-14] MEDS: Acetaminophen 500 MG Tablet 1000 MG PO (07:52)
[2019-10-14] MEDS: HYDROcodone Bitartrate/Apap 5/325 Tablet PO (10:23)
[2019-10-14 10:26] VITALS: BP 106/53; PULSE 76; RESP 18; TEMP 36.7; O2SAT 96
== END 2019-10-14 10:40 | disposition home health service (06) | DRG 561 ==
PROVIDERS: Admitting Provider Family Medicine Geriatric Medicine; Family Provider Family Medicine; PCP Family Medicine; Referring Provider Family Medicine Geriatric Medicine; Visit Provider Family Medicine Geriatric Medicine
DX: S82.892D Other fracture of left lower leg, subsequent encounter for closed fracture with routine healing (principal); X58.XXXD Exposure to other specified factors, subsequent encounter; M16.11 Unilateral primary osteoarthritis, right hip; E03.9 Hypothyroidism, unspecified; N32.81 Overactive bladder; I10 Essential (primary) hypertension; Z87.11 Personal history of peptic ulcer disease; Z87.440 Personal history of urinary (tract) infections; J45.909 Unspecified asthma, uncomplicated; Z96.662 Presence of left artificial ankle joint; K21.9 Gastro-esophageal reflux disease without esophagitis
CPT/HCPCS: 36415; 80048; 81001; 82274; 85025; 87086; 87088; 87186; 97110; 97116; 97162; 97166; 97530; 97535; 97802

== ENCOUNTER 2020-02-24 08:34 | Day surgery (SDC) | payer MEDICARE, SELFPAY ==
--- NOTE | 2020-02-24 08:48 | PCM.HP.STD ---
Problem List (1) Bladder neoplasm of uncertain malignant potential Status: Acute (2) Overactive bladder Status: Chronic History of Present Illness Date of Admission: 02/24/20 Chief Complaint: increasing urgency and frequency, bladder erythema found on cystoscopy The patient is a 84 year old F who has a history of a bladder ulceration that I treated approximately 18 months ago. She did very well over the course of the last 15 months. She has been having increasing urgency, frequency and feelings of urinary tract infection again. I performed a cystoscopy in the office last week and identified a posterior bladder wall ulceration approximately 1 cm in size. After discussing the risk benefits and alternatives, the patient agreed to proceed with biopsy and fulguration for management. The risks included discussion of COVID-19. Past Medical History Past Medical History (Chronic Problems): Chronic Problems (Last Reviewed 02/24/20 @ 08:[address] Lorena Gutierrez MD) Peptic ulcer disease (Chronic) Osteoarthritis of right hip (Chronic) Low back pain (Chronic) Allergic rhinitis (Chronic) Osteoporosis (Chronic) Asthma (Chronic) Insomnia (Chronic) Recurrent UTI (Chronic) Constipation (Chronic) Overactive bladder (Chronic) History of peptic ulcer disease (Chronic) Hypothyroidism (Chronic) Hypertension (Chronic) Medical History: Medical History (Last Reviewed 02/24/20 @ 08:[address] Lorena Gutierrez MD) Asthma J45.909 Kidney disease N28.9 Osteoporosis M81.0 Thyroid disease E07.9 Hypertension I10 Allergies grass pollen-perennial rye, standar [grass poll-perennial rye,std] Allergy (Verified 02/19/20 13:06) sinus pressure gluten Adverse Reaction (Verified 02/19/20 13:06) Food Allergy lactose Adverse Reaction (Verified 02/19/20 13:06) Food Allergy DUST Allergy (Uncoded 02/19/20 13:06) sinus pressure MOLD Allergy (Uncoded 02/19/20 13:06) SINUS PRESSURE Home Medications: Ambulatory Orders Medication Instructions Recorded Amlodipine [Norvasc] 5 mg PO DAILY 12/31/14 Gabapentin [Neurontin] 300 mg PO TID 12/31/14 Levothyroxine [Synthroid] 50 mcg PO DAILY 12/31/14 Lisinopril [Zestril] 20 mg PO DAILY 12/31/14 traZODone [Desyrel] 50 mg PO QHS 12/31/14 Cetirizine HCl [Zyrtec] 5 mg PO PRN PRN 03/09/17 Fluticasone 0.05% [Flonase Nasal 2 spray NASAL BID 03/09/17 [place]] Amitriptyline HCl 25 mg PO QHS 11/05/18 Azelastine HCl [Astelin] 2 spray NASAL DAILY 11/05/18 Pantoprazole Sodium [Protonix] 40 mg PO BID 09/18/19 Acetaminophen [Tylenol] 1,000 mg PO Q8H PRN PRN tab 10/10/19 Menthol/Lanolin/Calamine/Znox 1 applic TOPICAL BID PRN tube 10/10/19 [Calmoseptine Ointment] Polyethylene Glycol 3350 [Miralax] 17 gm PO DAILY #30 packet 10/10/19 traMADol [Ultram] 50 mg PO TID #45 tab 10/10/19 Bismuth Subsalicylate 525 mg PO DAILY PRN 02/19/20 [Pepto-Bismol] Calcium Carbonate/Vitamin D3 1 ea PO DAILY 02/19/20 [Calcium 500 mg Chewable Tablet] Famotidine [Pepcid] 20 mg PO BID 02/19/20 Furosemide [Lasix] 20 mg PO DAILY 02/19/20 Guaifenesin [Mucinex] 600 mg PO BID PRN 02/19/20 Hydrocodone/Acetaminophen [[place] 1 ea PO Q8 PRN 02/19/20 5-325 Tablet] L.acidoph,Paracasei, B.lactis 1 ea PO DAILY 02/19/20 [Probiotic] Lidocaine [Lidoderm Patch] 1 patch TOPICAL DAILY@0800 PRN 02/19/20 Mth/Me Blue/Sod Phos/Phen/Hyos 1 ea PO BID 02/19/20 [Uribel Capsule] Surgical History: appendectomy, cataract, cholecystectomy, hysterectomy, total hip arthroplasty - Right, 11/07/[address] Huynh., tonsillectomy, - - both shoulders,back knee and shoulders,eye surgeries, right knee surgery, lumbar spine surgery, bunionectomy, Psychiatric History: No pertinent psych hx [employer] History: No pertinent [employer] history Smoking Status: Never smoker Tobacco Use: Non-smoker - *Family History Maternal History Items: - Paternal History Items: - Review of Systems Constitutional: Denies: Anorexia, Chills, Fever, Night Sweats Eyes: Denies: Vision Change HEENT: Denies: Visual Changes Cardiovascular: Denies: Chest Pain, Chest Pressure Respiratory: Denies: Cough, Shortness of Breath Gastrointestinal: Denies: Abdominal Pain, Nausea, Vomiting Genitourinary: Reports: Dysuria, Frequency, Urgency. Denies: Hematuria Gynecological: Denies: Vaginal itching Musculoskeletal: Denies: Muscle pain Skin: Denies: Wounds Neurological: Denies: Difficulty swallowing VTE Information - Inpt Only VTE Present on Admission: Yes VTE Mechan Device Prophylaxis: SCD's VTE Pharm Prophylaxis ordered?: No Reason prophylaxis not ordered:: Treatment Not Indicated - Physical Exam Vitals/I&O's: Body Mass Index (BMI) 29.8 General: Alert, Oriented x3, No apparent distress HEENT: Atraumatic, Normocephalic Oral: Moist Mucosa Neck: Supple, Trachea Midline Lungs: Clear to auscultation, Normal air movement Cardiovascular: Regular rate, Regular Rhythm Abdomen: Soft, Non Tender, Non-Distended Extremities: No cyanosis Skin: No rashes Musculoskeletal: No Muscle Wasting Neurological: Cranial nerves II-XII grossly intact, Neuro grossly intact Psych/Mental Status: Normal Affect, Alert and oriented to time, place, person, mood and affect Microbiology Past 72 Hours 02/23/20 10:20 Mucosa - Nasopharyngeal Coronavirus COVID-19 PCR - Final Laboratory Results 02/23/20 10:20: COVID-19 (MELANIE) Cancelled Current Medications Cefazolin Sodium 2 gm/ Sodium (Chloride) 110 mls @ 150 mls/hr IV PREOP ONE Stop: 02/24/20 10:53 Assessment/Plan All Active Problems (Last Reviewed 02/24/20 @ 08:[address] Lorena Gutierrez MD) Debility (Acute) Closed left ankle fracture (Acute) Chest pain, atypical (Acute) Chest wall pain (Acute) Recurrent UTI (Acute) Bladder neoplasm of uncertain malignant potential (Acute) Back contusion (Acute) Melena (Acute) Acute gastritis (Acute) Hyponatremia (Acute) Fall (Acute) Status post total hip replacement, right (Acute) Anemia due to blood loss (Acute) Dehydration (Acute) Acute kidney injury (Acute) Closed right hip fracture (Resolved) Proceed with cystoscopy, bladder biopsy and fulguration under anesthesia Essential Procedure Criteria Procedure Essential: Yes Criteria Note: On 12/23/2019 the [place] Department of Health ([facility]) Public Order signed by [facility] Director Alvina Medrano M.D., regarding the Management of Non-Essential Surgeries and Procedures for the purpose of preserving Personal Protective Equipment (PPE) and critical hospital capacity and resources within [place] went into effect as of 12/24/2019 at 5:00PM. According to the [facility] Public Order: This action will remain in full force and effect until the State of Emergency declared by the Governor no longer exists or the Director of the [facility] rescinds or modifies this Order.. This [facility] order stated all non-essential or elective surgeries and procedures that utilize PPE should be delayed unless there is undue risk to the current or future health of a patient. After reviewing the aforementioned [facility] Public Order and the patients clinical case, I have determined that the scheduled procedure meets the criteria to go forward. Risk to Patient if Procedure Delayed: Presence of severe symptoms causing an inability to perform ADL's - urgency, frequency, bladder pain worsening
[2020-02-24 09:16] VITALS: BP 107/60; PULSE 69; RESP 18; TEMP 37; O2SAT 100; BMI 31.1
[2020-02-24] MEDS: Lactated Ringers 1,000 ML 100 ML IV (09:36)
--- NOTE | 2020-02-24 10:10 | BLA_PTH ---
PATIENT: KAELA ALDANA [place]: [facility] [place][id number] AGE/SX: 84/F ROOM: RE02/24/[address]: Dr. Lorena Gutierrez MD : [id number] BED: DIS: 02/24/2020 SPEC #: [id number] RECD: 02/24/20 12:29 STATUS: DOUG LUIS #: [id number] SOC[place]: 02/24/20 10:[address]: Lorena Gutierrez DEPT: SURGICAL PATHOLOGY RECD BY: Dimas Mauricio ENTERED: 02/25/20 09:14 SP TYPE: BLADDER BX OTHR DR: Dr. Roma Grajeda DO Tissues: Urinary bladder, NOS Procedures: Surgery Specimen Level IV HEADER OPERATION: Cysto, bladder biopsy, fulguration PRE-OP DIAGNOSIS: Bladder neoplasm TISSUE SUBMITTED: Bladder biopsy MICROSCOPIC DIAGNOSIS Urinary bladder, biopsy: Chronic follicular cystitis. Mucosal ulceration with associated acute and chronic inflammation and granulation. AM:corwin 02/26/20 MICROSCOPIC DESCRIPTION Slides are reviewed. GROSS DESCRIPTION Received in fixative is one container labeled with the patient's name and designated bladder biopsy. The specimen consists of multiple irregular fragments of light carpio soft tissue that in aggregate measure 0.5 x 0.2 x 0.1 cm. The specimen is totally submitted in one cassette. / AM:corwin 02/25/20 TC:2 CPT: 54916
--- NOTE | 2020-02-24 10:20 | PCM.OPRPT ---
Problem List (1) Bladder neoplasm of uncertain malignant potential Status: Acute (2) Overactive bladder Status: Chronic Report of Operation Date of Procedure: 02/24/20 Pre-Operative Diagnosis: bladder erythematous lesion, urgency, frequency, bladder pain Post-Operative Diagnosis: same Surgery/Procedure Performed:: cystoscopy, bladder biopsy with fulguration Type of Anesthesia:: MAC Specimen's removed: bladder biopsy Description of Procedure: The patient is an 84-year-old female who had an ulceration of her bladder mucosa approximately 18 months ago. She did very well with her symptoms until about 3 months ago she began to have increased urgency, frequency and pain similar to when she had her ulcer last time. On cystoscopy in the office there were 2 ulcerations identified approximately 1 cm in size in the posterior bladder wall. Risks benefits and alternatives were discussed including COVID and the patient desired to proceed with surgical intervention. She was taken to the operating room placed on the operating room table. Anesthesia monitored the head, neck, airway, IV access and vital signs throughout the case. Once anesthesia was appropriate ministered the patient was placed into dorsal lithotomy position and was prepped and draped in usual sterile fashion. A cystourethroscopy was performed through the urethra. The previously mentioned ulcerations were clearly identified. The previous scar tissue from her biopsy site was identified as well. There were no other new lesions seen today. These areas were biopsied and then fulgurated for hemostatic control and tissue treatment. The patient tolerated the procedure well. Her bladder was emptied and she was awakened and taken to the recovery room in good condition. There were no complications during the procedure. Grafts/Implants Used: none - Complications none - Admit VTE Documentation VTE Present on Admission: Yes VTE Mechan Device Prophylaxis: SCD's VTE Pharm Prophylaxis ordered?: No Reason prophylaxis not ordered:: Treatment Not Indicated
--- NOTE | 2020-02-24 10:22 | DCINST_ITS ---
Discharge Diet: No Restrictions Discharge Activity: Return to Normal Activity, May not drive while taking narcotic pain medications. Call your doctor if you observe: Fever of 101 or Higher, Inability to urinate, Inability to have a bowel movement Allergies/Adverse Reactions: Allergies grass pollen-perennial rye, standar [grass poll-perennial rye,std] Allergy (Verified 02/24/20 09:11) sinus pressure gluten Adverse Reaction (Verified 02/24/20 09:11) Food Allergy lactose Adverse Reaction (Verified 02/24/20 09:11) Food Allergy DUST Allergy (Uncoded 02/24/20 09:11) sinus pressure MOLD Allergy (Uncoded 02/24/20 09:11) SINUS PRESSURE Medications to take at Discharge Amlodipine [Norvasc] 5 mg PO DAILY 12/31/14 Gabapentin [Neurontin] 300 mg PO TID 12/31/14 Levothyroxine [Synthroid] 50 mcg PO DAILY 12/31/14 Lisinopril [Zestril] 20 mg PO DAILY 12/31/14 traZODone [Desyrel] 50 mg PO QHS 12/31/14 Cetirizine HCl [Zyrtec] 5 mg PO PRN PRN 03/09/17 Fluticasone 0.05% [Flonase Nasal [place]] 2 spray NASAL BID 03/09/17 Amitriptyline HCl 25 mg PO QHS 11/05/18 Azelastine HCl [Astelin] 2 spray NASAL DAILY 11/05/18 Pantoprazole Sodium [Protonix] 40 mg PO BID 09/18/19 Acetaminophen [Tylenol] 1,000 mg PO Q8H PRN PRN tab 10/10/19 Menthol/Lanolin/Calamine/Znox [Calmoseptine Ointment] 1 applic TOPICAL BID PRN tube 10/10/19 Polyethylene Glycol 3350 [Miralax] 17 gm PO DAILY #30 packet 10/10/19 traMADol [Ultram] 50 mg PO TID #45 tab 10/10/19 Bismuth Subsalicylate [Pepto-Bismol] 525 mg PO DAILY PRN 02/19/20 Calcium Carbonate/Vitamin D3 [Calcium 500 mg Chewable Tablet] 1 ea PO DAILY 02/19/20 Famotidine [Pepcid] 20 mg PO BID 02/19/20 Furosemide [Lasix] 20 mg PO DAILY 02/19/20 Guaifenesin [Mucinex] 600 mg PO BID PRN 02/19/20 Hydrocodone/Acetaminophen [[place] 5-325 Tablet] 1 ea PO Q8 PRN 02/19/20 L.acidoph,Paracasei, B.lactis [Probiotic] 1 ea PO DAILY 02/19/20 Lidocaine [Lidoderm Patch] 1 patch TOPICAL DAILY@0800 PRN 02/19/20 Mth/Me Blue/Sod Phos/Phen/Hyos [Uribel Capsule] 1 ea PO BID 02/19/20 Primary Care Physician: Roma Grajeda DO [Primary Care Provider] - Test Results: Test results from this visit will be discussed in further detail at your follow- up appointment, if applicable. Please Follow Up With: Lorena Gutierrez MD When: call office for appt in 1 week Proposed Discharge Date: 02/24/20
[2020-02-24] MEDS: Cefazolin 2 GM in 0.9% Normal Saline 100 ML IV (10:38)
[2020-02-24] MEDS: Lubricating Jelly 60 GM Tube 30 GM TOPICAL (10:56)
[2020-02-24 11:05] VITALS: BP 107/60; BP 119/61; PULSE 74; RESP 16; TEMP 36.7; O2SAT 94
[2020-02-24 11:10] VITALS: BP 107/60; BP 119/62; PULSE 71; RESP 16; O2SAT 99
[2020-02-24 11:15] VITALS: BP 107/60; BP 131/69; PULSE 73; RESP 16; O2SAT 100
[2020-02-24 11:20] VITALS: BP 107/60; BP 129/67; PULSE 73; RESP 16; TEMP 36.1; O2SAT 100
[2020-02-24] MEDS: HYDROcodone Bitartrate/Apap 5/325 Tablet PO (11:52)
[2020-02-24 11:58] VITALS: BP 107/60
== END 2020-02-24 12:10 | disposition home or self-care (01) ==
LOC: SDC 08:35 → AC 08:36
PROVIDERS: PCP Family Medicine; Referring Provider Urology; Visit Provider Urology
PROC: 0TBB8ZX Excision of Bladder, Via Natural or Artificial Opening Endoscopic, Diagnostic (ICD-10-PCS; CPT 52204; principal; 2020-02-24 10:00)
DX: D41.4 Neoplasm of uncertain behavior of bladder (principal); N32.81 Overactive bladder; R39.15 Urgency of urination; R35.0 Frequency of micturition; I10 Essential (primary) hypertension; E03.9 Hypothyroidism, unspecified; J45.909 Unspecified asthma, uncomplicated; M16.11 Unilateral primary osteoarthritis, right hip; M81.0 Age-related osteoporosis without current pathological fracture; G47.00 Insomnia, unspecified; K21.9 Gastro-esophageal reflux disease without esophagitis; Z78.0 Asymptomatic menopausal state; Z79.899 Other long term (current) drug therapy; Z87.11 Personal history of peptic ulcer disease; Z87.440 Personal history of urinary (tract) infections; Z11.59 Encounter for screening for other viral diseases
CPT/HCPCS: 00910; 52204; 87635; 88305; C9803; G2023; J7120; U0002; U0004

== ENCOUNTER → 2020-06-07 15:09 | Outpatient (CLI) | payer MEDICARE, SELFPAY | PROVIDERS: PCP Family Medicine; Visit Provider Family Medicine | DX: R35.1 Nocturia (principal); R31.9 Hematuria, unspecified | CPT/HCPCS: 87077; 87086; 87088; 87186 ==

== ENCOUNTER → 2020-07-30 10:38 | Outpatient (CLI) | payer MEDICARE, SELFPAY | PROVIDERS: PCP Family Medicine; Visit Provider Family Medicine | DX: R30.0 Dysuria (principal) | CPT/HCPCS: 87077; 87086; 87088; 87186 ==

== ENCOUNTER 2020-08-16 10:46 | Inpatient (IN) | payer MEDICARE, SELFPAY ==
[2020-08-16 10:47] VITALS: BP 109/56; PULSE 88; RESP 19; TEMP 37.6; O2SAT 96; BMI 32.3
--- NOTE | 2020-08-16 11:01 | EKG12_ITS ---
Test Reason : SOB Blood Pressure : / mmHG Vent. Rate : 082 BPM Atrial Rate : 082 BPM P-R Int : 164 ms QRS Dur : 086 ms QT Int : 392 ms P-R-T Axes : 059 -16 024 degrees QTc Int : 457 ms Normal sinus rhythm Low voltage QRS Borderline ECG Confirmed by MEERA LE, NAVEEN ([id number]), editor magazine JOSE G ELIZABETH ([id number]) on 08/18/2020 8:51:14 AM Referred By: MILANA Confirmed By:NAVEEN ESTES MD
--- NOTE | 2020-08-16 11:10 | ED.VIS.GEN ---
History of Present Illness Chief Complaint: Cough Informant: Patient Narrative: Patient is an 84-year-old female who presents to the emergency department for multiple complaints. Her initial symptoms started yesterday with not wanting to eat or drink. She has been feeling very weak and felt hot. They took her temperature at home and it was 100.9. They did not take any thing for this. She has developed a dry cough. She denies any headache but has had some photophobia. No neck stiffness. She has been feeling short of breath but no chest pain. No abdominal pain. She did feel nauseous yesterday but this is since resolved. No episodes of vomiting. No diarrhea. No change in urination. She denies any leg swelling or calf pain. She denies any known sick contacts. She did see her daughter in law who does work on a coronavirus floor in the hospital. Patient denies a smoking history. Past Medical History - Allergies and Home Meds Allergies/Adverse Reactions: Allergies gluten Allergy (Verified 08/16/20 15:13) Food Allergy grass pollen-perennial rye, standar [grass poll-perennial rye,std] Allergy (Verified 08/16/20 10:47) sinus pressure lactose Adverse Reaction (Verified 08/16/20 10:47) Food Allergy DUST Allergy (Uncoded 08/16/20 10:47) sinus pressure MOLD Allergy (Uncoded 08/16/20 10:47) SINUS PRESSURE Prior records reviewed: Yes - Hypothyroidism, hypertension, asthma, kidney disease Surgical History: appendectomy, cataract, cholecystectomy, hysterectomy, total hip arthroplasty - Right, 11/07/[address] Huynh., tonsillectomy, - - both shoulders,back knee and shoulders,eye surgeries, right knee surgery, lumbar spine surgery, bunionectomy, Smoking Status: Never smoker - Family History Maternal Family History: Reports: - Paternal Family History: Reports: - Review of Systems All systems negative except as indicated General: Reports: Fever, Malaise. Denies: Chills, Sweats Eyes: Denies: Visual changes - bilaterally, Diplopia ENT: Denies: Rhinorrhea, Sore throat Cardiovascular: Denies: Chest pain, Palpitations Respiratory: Reports: Dyspnea, Cough. Denies: Sputum Gastrointestinal: Reports: Nausea. Denies: Abdominal pain, Vomiting, Diarrhea Genitourinary: Denies: Dysuria, Hematuria, Frequency Musculoskeletal: Denies: Back pain, Extremity Pain Skin: Denies: Rash, Wounds Neurological: Denies: Headache, Weakness, Numbness Physical Exam Vital Signs/Narrative: Vital Signs Temp Pulse Resp BP Pulse Ox 08/16/20 10:47 99.6 F H 88 19 H 109/56 L 96 Inital Vital Signs reviewed: Yes General: Well nourished, Well developed, No Acute Distress, - - Patient is nontoxic but does appear ill. Head: Normocephalic, Atraumatic Eyes: Perrl, EOMI ENT: No rhinorrhea Neck: Supple, Nontender Cardiovascular: Regular rate, Regular rhythm, No murmurs Respiratory: No distress, CTA bilaterally, Chest nontender Abdomen: Soft, Nontender, Nondistended, Normal bowel sounds Back: Nontender, Normal Inspection Extremities: Nontender, No edema. Negative for: Calf Tenderness Skin: Normal color, No rash Neurological: Alert, Cranial nerves II-XII grossly intact, Normal Strength, Normal Sensation Psychological: Normal affect, Normal Mood Diagnostic/Tx/Re-eval - EKG Initial EKG Interpretation: - - Rate of 82 bpm normal sinus rhythm. Normal intervals. No significant ST elevations or depressions appreciated. No T wave abnormalities. Her EKG for comparison was performed on February 17, 2019 which is similar in appearance. - Medical Decision Making Patient presents to the emergency department for generalized illness. She has had a cough. Has not wanted to eat or drink since yesterday. She had a fever at home and a low-grade fever here in the emergency department. We will perform a coronavirus test as well as lab work including blood cultures/lactic acid. X-ray being obtained. Upon arrival to the emerge department satting well on room air. Her blood pressure is on the low side so we will start IV fluids. Given Tylenol for symptomatic treatment. Patient's coronavirus test came back negative. Her urine does show signs of infection will be sent for culture. Given her elevated lactic acid will bring her to the hospital for further evaluation and management. She is given a dose of Rocephin. The 30 cc/kg bolus of IV fluid was not performed because of the initial thought of coronavirus. Blood pressure has been stable throughout ED stay. This was all made aware of the patient and she is agreeable with this plan. ED Disposition - Plan for ED Patient: Disposition: Acute Care Hospital [facility] Diagnosis: Urinary tract infection, Sepsis
[2020-08-16 11:28] LABS: Absolute Lymphocyte Count 0.15 X10^3/uL (0.83-4.51); Basophil# 0.03 X10^3/uL; Basophil% 0.3 % (0-1); Eosinophil# 0.19 X10^3/uL; Eosinophils% 2.2 % (0-5); Hematocrit 34.7 % (37-47); Hemoglobin 10.9 g/dL (12.0-15.0); Lymphocyte # 0.15 X10^3/ul (4.0); Lymphocyte % 1.7 % (19-41); Mean Corp Hgb Conc 31.4 g/dL (32-36); Mean Corpuscular Hgb 30.3 pg (27.0-32.0); Mean Corpuscular Volume 96.4 fL (81-99); Mean Platelet Vol. 9.8 fl (6.2-12.0); Monocyte# 0.32 X10^3/uL; Monocyte% 3.7 % (0-10); NRBC Flagged by Analyzer 0 % (0-5); Neutrophil # 7.96 X10^3/uL (2.7-7.7); Neutrophil % 91.4 % (47-70); POSITIVE DIFFERENTIAL YES; Platelet Count 235 K/mm3 (150-450); RBC Distribution Width CV 13.1 % (11.6-14.6); RBC Distribution Width SD 46.8 fl (35.1-43.9); White Blood Count 8.7 K/mm3 (4.4-11.0)
[2020-08-16 11:29] LABS: Differential Indicated SCAN CRITERIA MET
--- NOTE | 2020-08-16 11:30 | RAD_ITS ---
STUDY: X-RAY CHEST REASON FOR EXAM: Female, 84 years old. Cough, SOB x 2 days TECHNIQUE: Single AP portable view of the chest. COMPARISON: Comparison is made with prior study dated 02/17/2019. FINDINGS: EKG electrodes are seen. Stable linear scarring at the lung bases. There is no demonstrated pleural abnormality. There is mild cardiac enlargement. Normal mediastinum and alex. Normal visualized pulmonary arteries. There is atherosclerotic calcification of the aortic arch with tortuosity. There are diffuse degenerative changes of the visualized thoracic spine. Prior bilateral shoulder replacement. Healed right rib fractures. There is no demonstrated abnormality of the visualized soft tissue structures of the upper abdomen. RAD/Chest 1 View (Portable) IMPRESSION: Stable mild increased markings at the lung bases suggestive of linear scarring. Electronically Signed: Darron Rojas, at 12:21 EST , Service support ,
[2020-08-16] MEDS: Acetaminophen 325 MG Tablet 650 MG PO (11:39)
[2020-08-16 11:46] LABS: ALB/GLOB Ratio 0.9 RATIO (0.9-2.4); AST(SGOT) 31 U/L (15-37); Alanine Aminotransfer ALT/SGPT 27 U/L (13-56); Albumin, Serum 3.1 g/dL (3.2-5.0); Alkaline Phosphatase 80 U/L (45-117); Anion Gap 8 (5-15); BUN 32 mg/dL (7-18); BUN/Creat Ratio 20.8 RATIO (10-20); Calcium,Total 8.9 mg/dL (8.5-10.1); Chloride 100 mmol/L (98-107); Creatinine, Serum 1.54 mg/dL (0.55-1.02); EST Glomerular Filtration Rate 34 mL/min (>60); Est Glom Filt Rate - Afr Amer 41 mL/min (>60); Estimated Creatinine Clearance 31.72 ml/min; Globulin 3.6 g/dL (2.2-4.2); Glucose 139 mg/dL (74-106); Potassium 3.6 mmol/L (3.5-5.1); Protein, Total 6.7 g/dL (6.4-8.2); Sodium Level 134 mmol/L (136-145)
[2020-08-16 11:59] LABS: Hypochromasia 1+; Platelet Estimate ADEQUATE (ADEQ)
[2020-08-16 12:04] LABS: Lactic Acid 3.2 mmol/L (0.4-1.9)
[2020-08-16 13:27] LABS: Mucous, Urine 0 SEEN /hpf (<or=2+)
[2020-08-16 13:29] LABS: Color, Urine Yellow (Yellow); Glucose, Dipstick Normal (Normal); Ketone-Dipstick Negative (Negative); Leukocyte Esterase-Dipstick 500 /ul (Negative); Nitrite-Dipstick Negative (Negative); Occult Blood-Urine 10 /ul (Negative); Protein-Dipstick 15 mg/dl (Negative); Urine Bilirubin Dipstick Negative (Negative); Urine Clarity Cloudy (Clear); Urine Urobilinogen Normal (Normal)
[2020-08-16 13:35] LABS: Bacteria 1+ /hpf (None Seen); Red Blood Cells-Urine 0-5 SEEN /hpf (0-5); Squamous Epithelial Cells - UA 0-5 SEEN /hpf (5-10); White Blood Cells 25-50 SEEN /hpf (0-5)
[2020-08-16 15:05] VITALS: BP 113/60; PULSE 77; RESP 19
[2020-08-16 15:19] VITALS: BMI 32.3
[2020-08-16] MEDS: Ceftriaxone 1 GM/50 ML BAG IV (15:22)
[2020-08-16 15:25] LABS: Reflex Lactate? Y
[2020-08-16 15:27] VITALS: BP 108/56; PULSE 76; RESP 16; TEMP 36.4
--- NOTE | 2020-08-16 15:29 | HP.PCM_ITS ---
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 (9) Back contusion Status: Inactive Qualifiers: Encounter type: initial encounter Laterality: right Qualified Code(s): S20.221A - Contusion of right back wall of thorax, initial encounter (10) Melena Status: Inactive (11) Peptic ulcer disease Status: Chronic (12) Acute gastritis Status: Inactive (13) Osteoarthritis of right hip Status: Chronic (14) Low back pain Status: Chronic (15) Allergic rhinitis Status: Chronic (16) Osteoporosis Status: Chronic (17) Asthma Status: Chronic (18) Insomnia Status: Chronic (19) Recurrent UTI Status: Chronic (20) Constipation Status: Chronic (21) Overactive bladder Status: Chronic (22) Hyponatremia Status: Acute (23) Fall Status: Inactive Qualifiers: Encounter type: initial encounter Qualified Code(s): W19.XXXA - Unspecified fall, initial encounter Comment: no LOC, lost balance (24) Urinary tract infection Status: Suspected (25) Status post total hip replacement, right Status: Inactive Comment: 11/07/[address] Huynh (26) Anemia due to blood loss Status: Inactive (27) Dehydration Status: Acute (28) Acute kidney injury Status: Acute (29) History of peptic ulcer disease Status: Chronic (30) Hypothyroidism Status: Chronic (31) Hypertension Status: Chronic History of Present Illness Date of Admission: 08/16/20 Chief Complaint: weakness The patient is a 84 year old F who has a history of frequent urinary tract infections, presents with generalized weakness. Patient had been treated for a urinary tract infection with nitrofurantoin completed yesterday. Today just felt very weak and unable to get up and contacted emergency room. Patient was brought to the emergency room and had lab work that showed mild hyponatremia of 134, acute kidney injury with a creatinine 1.54 as well as an abnormal urinalysis. Patient received ceftriaxone in the emergency room. Her lactic acid was elevated at 3 and did receive 1 L of IV fluids. Patient states that she has not been eating or drinking much over the past several days. Patient does have a cough but is minimally productive. Patient was checked for COVID-19 and that was negative. [] Past Medical History Past Medical History (Chronic Problems): Chronic Problems (Last Reviewed 02/24/20 @ 08:[address] 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 Rafael Lazcano DO) Asthma J45.909 Kidney disease N28.9 Osteoporosis M81.0 Thyroid disease E07.9 Hypertension I10 Allergies gluten Allergy (Verified 08/16/20 15:13) Food Allergy grass pollen-perennial rye, standar [grass poll-perennial rye,std] Allergy (Verified 08/16/20 10:47) sinus pressure lactose Adverse Reaction (Verified 08/16/20 10:47) Food Allergy DUST Allergy (Uncoded 08/16/20 10:47) sinus pressure MOLD Allergy (Uncoded 08/16/20 10:47) SINUS PRESSURE Home Medications: Ambulatory Orders Medication Instructions Recorded Amitriptyline HCl 25 mg PO QHS 08/16/20 Amlodipine [Norvasc] 5 mg PO DAILY 08/16/20 Ascorbic Acid [Vitamin C] 500 mg PO DAILY 08/16/20 Azelastine HCl [Astelin] 2 spray NASAL DAILY 08/16/20 Bismuth Subsalicylate 262 mg PO PRN PRN 08/16/20 [Pepto-Bismol] Cetirizine HCl [Zyrtec] 10 mg PO DAILY PRN 08/16/20 Fluticasone 0.05% [Flonase Nasal 2 spray NASAL QHS 08/16/20 [place]] Furosemide [Lasix] 40 mg PO DAILY 08/16/20 Gabapentin [Neurontin] 300 mg PO TID 08/16/20 Levothyroxine [Synthroid] 50 mcg PO DAILY 08/16/20 Lisinopril 20 mg PO DAILY 08/16/20 Pantoprazole Sodium [Protonix] 40 mg PO BID 08/16/20 Polyethylene Glycol 3350 [Miralax] 17 gm PO DAILY 08/16/20 traMADol [Ultram (G)] 50 mg PO TID 08/16/20 traZODone [Desyrel] 50 mg PO QHS 08/16/20 Surgical History: appendectomy, cataract, cholecystectomy, hysterectomy, total hip arthroplasty - Right, 11/07/[address] 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 Denies: Chills, Fever Eyes: Denies: Blurred vision, Double vision HEENT: Denies: Head Aches, Sinus Congestion, Sinus Drainage Cardiovascular: Denies: Chest Pain, Palpitations Respiratory: Denies: Cough, Shortness of breath at rest, Sputum production Gastrointestinal: Denies: Abdominal Pain, Nausea, Vomiting Genitourinary: Denies: Dysuria Musculoskeletal: Denies: Joint Pain, Joint Tenderness Skin: Denies: Rash, Wounds Neurological: Denies: Numbness, Tingling, Focal weakness Psychiatric: Denies: Anxiety, Depression Hematologic/ Lymphatic: Denies: Easy Bruising, Easy Bleeding, Hx of blood clot Comment: All review of systems were negative except as mentioned above in the history of present illness and the other review of systems. VTE Information - Inpt Only VTE Present on Admission: No VTE Mechan Device Prophylaxis: None VTE Pharm Prophylaxis ordered?: Yes - Physical Exam Vitals/I&O's: Vital Signs Temp Pulse Resp BP Pulse Ox 36.4 C L 76 16 108/56 L 96 08/16/20 15:27 08/16/20 15:27 08/16/20 15:27 08/16/20 15:27 08/16/20 10:47 Oxygen Delivery Method Room Air Weight: 72.6 kg Body Mass Index (BMI) 32.3 General: Alert HEENT: Atraumatic, Normocephalic Neck: No Nodes, Thyroid Normal Size and Texture Lungs: Diminished, - - Coarse crackles throughout Cardiovascular: Regular rate, Regular Rhythm, Normal S1, Normal S2, No murmurs Abdomen: Bowel Sounds Present, Soft, Non Tender, Non-Distended, No Hepato- splenomegaly Extremities: No edema, No Calf Tenderness Skin: No rashes, No breakdown Musculoskeletal: No Tenderness to Palpation of Joints or Extremities, No Muscle Wasting Neurological: Sensory exam intact to light touch and pain, Coordination normal Psych/Mental Status: Normal Affect, Appropriate Laboratory Results 08/16/20 11:10: WBC 8.7, RBC 3.60 L, Hgb 10.9 L, Hct 34.7 L, MCV 96.4, MCH 30.3, MCHC 31.4 L, RDW Std Deviation 46.8 H, RDW Coeff of Laury 13.1, Plt Count 235, MPV 9.8, Immature Gran % (Auto) 0.700, Neut % (Auto) 91.4 H, Lymph % (Auto) 1.7 L, [place] % (Auto) 3.7, Eos % (Auto) 2.2, Baso % (Auto) 0.3, Absolute Neuts (auto) 8.0 H, Absolute Lymphs (auto) 0.15 L, Nucleated RBC % 0, Platelet Estimate ADEQUATE, Hypochromasia 1+ 08/16/20 11:10: Sodium 134 L, Potassium 3.6, Chloride 100, Carbon Dioxide 26.0, Anion Gap 8, BUN 32 H, Creatinine 1.54 H, Estim Creat Clear Calc 31.72, Est GFR (MDRD) Af Amer 41 L, Est GFR (MDRD) Non-Af 34 L, BUN/Creatinine Ratio 20.8 H, Gl ucose 139 H, Calcium 8.9, Magnesium 2.0, Total Bilirubin 0.70, AST 31, ALT 27, Alkaline Phosphatase 80, Troponin I < 0.015, Total Protein 6.7, Albumin 3.1 L, Globulin 3.6, Albumin/Globulin Ratio 0.9 08/16/20 11:10: Lactic Acid 3.2 H* 08/16/20 11:23: COVID-19 (MELANIE) Not Detected 08/16/20 13:20: Urine Color Yellow, Urine Clarity Cloudy, Urine pH 6.0, Ur Specific [place] 1.010, Urine Protein 15 H, Urine Glucose (UA) Normal, Urine Ketones Negative, Urine Occult Blood 10 H, Urine Nitrite Negative, Urine Bilirubin Negative, Urine Urobilinogen Normal, Ur Leukocyte Esterase 500 H, Urine RBC 0-5 SEEN, Urine WBC 25-50 SEEN, Ur Squamous Epith Cells 0-5 SEEN, Urine Bacteria 1+, Urine Mucus 0 SEEN EKG reviewed showed normal sinus rhythm with no acute changes. Assessment/Plan All Active Problems (Last Reviewed 02/24/20 @ 08:[address] Lorena Gutierrez MD) Debility (Acute) Closed left ankle fracture (Resolved) Severe sepsis (Acute) UTI (urinary tract infection) (Acute) Recurrent UTI (Acute) Hyponatremia (Acute) Dehydration (Acute) Acute kidney injury (Acute) Closed right hip fracture (Resolved) 1. Severe sepsis: Secondary to recurrent UTI. Blood cultures drawn the emergency room. Patient will need a urine culture drawn as well for early for antibiotics are administered. Currently, patient is hemodynamically stable so I do not feel that the patient will require intensive care unit at this time. I feel, given her current clinical status at this time that she go to medical surgical floor. 2. UTI: Recurrent. Patient had history of Enterobacter Pseudomonas that were sensitive to nitrofurantoin but patient just completed the course of could be something new that is resistant to that. Patient received ceftriaxone in the emergency room and will continue with that. Of clinical course does not improve may consider adding more broad-spectrum antibiotic, including Pipracil/tazobactam. 3. Acute kidney injury: Likely related with prerenal azotemia: IV fluids. Hold furosemide and lisinopril for now. 4. VTE prophylaxis: Moderate risk. Enoxaparin. 5. Advanced care planning: Discussed with the patient. Patient wishes to be DNR Comfort Care arrest no intubation. 6. Disposition: Given the patient has a urinary tract infection and had been on antibiotics feel it be most appropriate to wait for the final urine culture results to come back so the patient can be put on most appropriate antibiotic upon discharge. Inpatient E&M: [id number] Init Hosp L3
[2020-08-16 15:42] VITALS: BMI 31.4
[2020-08-16] MEDS: 0.9% Normal Saline 1,000 ML 250 ML IV (16:16)
[2020-08-16 16:43] LABS: Lactic Acid 2.1 mmol/L (0.4-1.9)
[2020-08-16] MEDS: Gabapentin 300 MG Capsule PO (17:37)
[2020-08-16 20:27] VITALS: BP 112/49; PULSE 75; RESP 16; TEMP 36.6; O2SAT 96
[2020-08-16 21:15] VITALS: O2SAT 96
[2020-08-16] MEDS: Pantoprazole Sodium 40 MG Tablet PO (21:59)
[2020-08-16] MEDS: Amitriptyline 25 MG Tablet PO (21:59)
[2020-08-16] MEDS: traZODone 50 MG Tablet PO (21:59)
[2020-08-16 22:00] VITALS: O2SAT 96
[2020-08-16] MEDS: traMADol 50 MG Tablet PO (22:01)
[2020-08-16] MEDS: Fluticasone 0.05% 1 SPRAY NASAL.SRY 2 SPRAY NASAL (22:02)
[2020-08-17 02:27] VITALS: BP 125/56; PULSE 87; RESP 16; TEMP 36.9; O2SAT 98
[2020-08-17] MEDS: traMADol 50 MG Tablet PO (05:39)
[2020-08-17] MEDS: Levothyroxine 50 MCG Tablet PO (05:39)
[2020-08-17] MEDS: Enoxaparin 40 MG/0.4 ML Syringe SC (05:39)
[2020-08-17 07:17] LABS: Absolute Lymphocyte Count 0.45 X10^3/uL (0.83-4.51); Absolute Neutrophil Count 3.6 X10^3/uL (2.0-7.7); Basophil# 0.02 X10^3/uL; Basophil% 0.4 % (0-1); Eosinophil# 0.57 X10^3/uL; Eosinophils% 11.4 % (0-5); Hematocrit 29.9 % (37-47); Hemoglobin 9.4 g/dL (12.0-15.0); Lymphocyte # 0.45 X10^3/ul (4.0); Mean Corp Hgb Conc 31.4 g/dL (32-36); Mean Corpuscular Hgb 30.1 pg (27.0-32.0); Mean Corpuscular Volume 95.8 fL (81-99); Mean Platelet Vol. 9.7 fl (6.2-12.0); Monocyte# 0.32 X10^3/uL; Monocyte% 6.4 % (0-10); NRBC Flagged by Analyzer 0 % (0-5); Neutrophil # 3.63 X10^3/uL (2.7-7.7); Neutrophil % 72.6 % (47-70); POSITIVE DIFFERENTIAL YES; Platelet Count 207 K/mm3 (150-450); RBC Distribution Width CV 13.2 % (11.6-14.6); RBC Distribution Width SD 46.4 fl (35.1-43.9); Red Blood Count 3.12 M/mm3 (4.2-5.4)
[2020-08-17 07:25] LABS: Differential Indicated SCAN CRITERIA MET
[2020-08-17 07:39] VITALS: O2SAT 93
[2020-08-17 07:53] LABS: Anion Gap 5 (5-15); BUN 19 mg/dL (7-18); Calcium,Total 8.2 mg/dL (8.5-10.1); Chloride 114 mmol/L (98-107); Creatinine, Serum 0.79 mg/dL (0.55-1.02); EST Glomerular Filtration Rate 74 mL/min (>60); Est Glom Filt Rate - Afr Amer 89 mL/min (>60); Estimated Creatinine Clearance 47.51 ml/min; Glucose 88 mg/dL (74-106); Potassium 3.4 mmol/L (3.5-5.1); Sodium Level 142 mmol/L (136-145)
--- NOTE | 2020-08-17 07:56 | PN_ITS ---
Patient Problems: Active and Suspected Problems (Last Reviewed 08/16/20 @ 15:[address] Rafael Lazcano, DO) Debility (Acute) Severe sepsis (Acute) UTI (urinary tract infection) (Acute) Sepsis (Acute) Recurrent UTI (Acute) Hyponatremia (Acute) Urinary tract infection (Suspected) Dehydration (Acute) Acute kidney injury (Acute) Reason for Visit: Follow-up on severe sepsis secondary to UTI Subjective: Patient was seen and examined. She feels improved. Denied any fever or chills. No other acute events overnight. Objective: Physical exam: General: Alert, oriented x3, comfortable HEENT: Atraumatic, Normocephalic Neck: No Nodes, Thyroid Normal Size and Texture Lungs: Diminished Cardiovascular: Regular rate, Regular Rhythm, Normal S1, Normal S2, No murmurs Abdomen: Bowel Sounds Present, Soft, Non Tender, Non-Distended, No Hepato- splenomegaly Extremities: No edema Skin: No rashes, No breakdown Musculoskeletal: No Tenderness to Palpation of Joints or Extremities, No Muscle Wasting Neurological: Sensory exam intact to light touch and pain, Coordination normal Psych/Mental Status: Normal Affect, Appropriate Vitals/I&O's: Vital Signs Temp Pulse Resp BP Pulse Ox 98.5 F 87 16 125/56 H 93 08/17/20 02:27 08/17/20 02:27 08/17/20 02:27 08/17/20 02:27 08/17/20 07:39 Oxygen Delivery Method Room Air Weight: 70.6 kg Body Mass Index (BMI) 31.4 Intake and Output for Last 24 Hours 08/15/20 08/16/20 08/17/20 23:59 23:59 23:59 Intake Total 1550 / 1850 600 / 600 Output Total 550 / 950 800 / 800 Balance 1000 / 900 -200 / -200 Laboratory Results 08/16/20 11:10: WBC 8.7, RBC 3.60 L, Hgb 10.9 L, Hct 34.7 L, MCV 96.4, MCH 30.3, MCHC 31.4 L, RDW Std Deviation 46.8 H, RDW Coeff of Laury 13.1, Plt Count 235, MPV 9.8, Immature Gran % (Auto) 0.700, Neut % (Auto) 91.4 H, Lymph % (Auto) 1.7 L, [place] % (Auto) 3.7, Eos % (Auto) 2.2, Baso % (Auto) 0.3, Absolute Neuts (auto) 8.0 H, Absolute Lymphs (auto) 0.15 L, Nucleated RBC % 0, Platelet Estimate ADEQUATE, Hypochromasia 1+ 08/16/20 11:10: Sodium 134 L, Potassium 3.6, Chloride 100, Carbon Dioxide 26.0, Anion Gap 8, BUN 32 H, Creatinine 1.54 H, Estim Creat Clear Calc 31.72, Est GFR (MDRD) Af Amer 41 L, Est GFR (MDRD) Non-Af 34 L, BUN/Creatinine Ratio 20.8 H, Glucose 139 H, Calcium 8.9, Magnesium 2.0, Total Bilirubin 0.70, AST 31, ALT 27, Alkaline Phosphatase 80, Troponin I < 0.015, Total Protein 6.7, Albumin 3.1 L, Globulin 3.6, Albumin/Globulin Ratio 0.9 08/16/20 11:10: Lactic Acid 3.2 H* 08/16/20 11:23: COVID-19 (MELANIE) Not Detected 08/16/20 13:20: Urine Color Yellow, Urine Clarity Cloudy, Urine pH 6.0, Ur Specific [place] 1.010, Urine Protein 15 H, Urine Glucose (UA) Normal, Urine Ketones Negative, Urine Occult Blood 10 H, Urine Nitrite Negative, Urine Bilirubin Negative, Urine Urobilinogen Normal, Ur Leukocyte Esterase 500 H, Urine RBC 0-5 SEEN, Urine WBC 25-50 SEEN, Ur Squamous Epith Cells 0-5 SEEN, Urine Bacteria 1+, Urine Mucus 0 SEEN 08/16/20 16:07: Lactic Acid 2.1 H* 08/17/20 06:55: WBC 5.0, RBC 3.12 L, Hgb 9.4 L, Hct 29.9 L, MCV 95.8, MCH 30.1, MCHC 31.4 L, RDW Std Deviation 46.4 H, RDW Coeff of Laury 13.2, Plt Count 207, MPV 9.7, Immature Gran % (Auto) 0.200, Neut % (Auto) 72.6 H, Lymph % (Auto) 9.0 L, [place] % (Auto) 6.4, Eos % (Auto) 11.4 H, Baso % (Auto) 0.4, Absolute Neuts (auto) 3.6, Absolute Lymphs (auto) 0.45 L, Nucleated RBC % 0 08/17/20 06:55: Sodium 142, Potassium 3.4 L, Chloride 114 H, Carbon Dioxide 23.0, Anion Gap 5, BUN 19 H, Creatinine 0.79, Estim Creat Clear Calc 47.51, Est GFR (MDRD) Af Amer 89, Est GFR (MDRD) Non-Af 74, BUN/Creatinine Ratio 24.0 H, Glucose 88, Calcium 8.2 L Current Medications Acetaminophen (Acetaminophen 325 Mg Tablet) 650 mg PO Q6H PRN PRN PRN Reason: Pain Score 1-10/Temp > 100.7 F Amitriptyline HCl (Amitriptyline 25 Mg Tablet) 25 mg PO QHS [facility] Last Admin: 08/16/20 21:59 Dose: 25 mg Documented by: Amlodipine Besylate (Amlodipine 5 Mg Tablet) 5 mg PO DAILY [facility] Ascorbic Acid (Ascorbic Acid 500 Mg Tablet) 500 mg PO DAILY [facility] Azelastine HCl (Azelastine Hcl Nasal.Sry) 2 spray NASAL DAILY [facility] Enoxaparin Sodium (Enoxaparin 40 Mg/0.4 Ml Syringe) 40 mg SC DAILY@0600 [facility] Last Admin: 08/17/20 05:39 Dose: 40 mg Documented by: Fluticasone Propionate (Fluticasone 0.05% 1 [place] Nasal.Sry) 2 spray NASAL QHS [facility] Last Admin: 08/16/20 22:02 Dose: 2 spray Documented by: Gabapentin (Gabapentin 300 Mg Capsule) 300 mg PO TIDCM [facility] Last Admin: 08/16/20 17:37 Dose: 300 mg Documented by: Ceftriaxone Sodium (Rocephin) 1 gm in 50 mls @ 100 mls/hr IV Q24 [facility] Levothyroxine Sodium (Levothyroxine 50 Mcg Tablet) 50 mcg PO DAILY@0600 [facility] Last Admin: 08/17/20 05:39 Dose: 50 mcg Documented by: Loratadine (Loratadine 10 Mg Tablet) 10 mg PO DAILY PRN PRN PRN Reason: ALLERGY SYMPTOMS Ondansetron HCl (Ondansetron 4 Mg/2 Ml Vial) 4 mg IV Q8H PRN PRN PRN Reason: NAUSEA/VOMITING Pantoprazole Sodium (Pantoprazole Sodium 40 Mg Tablet) 40 mg PO BID [facility] Last Admin: 08/16/20 21:59 Dose: 40 mg Documented by: Polyethylene Glycol (Polyethylene Glycol 3350 17 Gm Packet) 17 gm PO DAILY [facility] Sodium Chloride (0.9% Saline Lock 10 Ml Syringe) 10 - 40 ml IV UD PRN PRN Reason: SALINE FLUSH Tramadol HCl (Tramadol 50 Mg Tablet) 50 mg PO TID [facility] Last Admin: 08/17/20 05:39 Dose: 50 mg Documented by: Trazodone HCl (Trazodone 50 Mg Tablet) 50 mg PO QHS [facility] Last Admin: 08/16/20 21:59 Dose: 50 mg Documented by: STROKE Vital Signs/Narrative: Vital Signs Pulse Ox 08/17/20 07:39 93 Medical Necessity - Tobacco Use Smoking Status: Never smoker Assessment/Plan All Active Problems (Last Reviewed 08/16/20 @ 15:[address] Rafael Lazcano, DO) Debility (Acute) Closed left ankle fracture (Resolved) Severe sepsis (Acute) UTI (urinary tract infection) (Acute) Sepsis (Acute) Recurrent UTI (Acute) Hyponatremia (Acute) Dehydration (Acute) Acute kidney injury (Acute) Closed right hip fracture (Resolved) 1. Severe sepsis secondary to recurrent UTI, improving Previous urine cultures grew Enterococcus faecalis and Pseudomonas aeruginosa Current urine culture showed no growth Continue on IV ceftriaxone 2. Acute kidney injury, prerenal, continue on IV fluids Continue to hold Lasix and lisinopril Repeat blood work in a.m. 3. Hypertension, controlled, on continue with home regimen 4. Depression, continue on trazodone 5. DVT prophylaxis with Lovenox Inpatient E&M: [id number] [facility] Hosp L2
[2020-08-17 08:10] VITALS: BP 121/61; PULSE 86; RESP 22; TEMP 36.7; O2SAT 96
[2020-08-17] MEDS: Pantoprazole Sodium 40 MG Tablet PO ×2 (08:11→21:41)
[2020-08-17] MEDS: Ascorbic Acid 500 MG Tablet PO (08:11)
[2020-08-17] MEDS: Polyethylene Glycol 3350 17 GM PACKET PO (08:11)
[2020-08-17] MEDS: amLODIPine 5 MG Tablet PO (08:11)
[2020-08-17] MEDS: Azelastine HCl NASAL.SRY 2 SPRAY NASAL (08:11)
[2020-08-17] MEDS: Gabapentin 300 MG Capsule PO ×3 (08:11→15:57)
[2020-08-17] MEDS: 0.9% Saline Lock 10 ML Syringe IV (10:30)
[2020-08-17] MEDS: Ceftriaxone 1 GM/50 ML BAG IV (10:30)
--- NOTE | 2020-08-17 10:40 | CASEMGMT ---
RN KELLY Face to Face with patient for initial transition planning/care coordination assessment. RN CM introduced self and role at [facility]. Patient lying in bed, alert and oriented. Patient willing to participate in assessment and is able to answer all questions appropriately. Care providers, pharmacy, and demographics verified. Patient wishes to discharge home, denies need for home health at this time. Patient states she has no further needs or concerns at this time. CM to follow for discharge planning needs that may arise. PCP: Nicci Specialists: elizabeth Simpson; Brenda urologist Preferred Pharmacy: [facility] Insurance: [facility] Prescription Benefit: yes Living Will/HPOA: yes, Richard Rosales LNOK: Living Arrangements: Patient states she lives with in a Condo with no steps to enter. Patient states she is independent at home. Transportation: DME/HHC: Patient states she has shower chair, raised toilet, grab bars, walker, and rollator at home. Disposition Plan: Patient to discharge home with family support and follow-up plans in place. Mar LEAVITT, RN, CM
[2020-08-17 12:16] VITALS: BP 125/65; PULSE 80; RESP 18; TEMP 37.1; O2SAT 96
[2020-08-17 15:49] VITALS: BP 137/70; PULSE 70; RESP 18; TEMP 37; O2SAT 97
[2020-08-17] MEDS: guaiFENesin 600 MG Tablet PO (19:46)
[2020-08-17 21:30] VITALS: BP 131/62; PULSE 75; RESP 16; TEMP 36.7; O2SAT 96
[2020-08-17] MEDS: Fluticasone 0.05% 1 SPRAY NASAL.SRY 2 SPRAY NASAL (21:40)
[2020-08-17] MEDS: Amitriptyline 25 MG Tablet PO (21:40)
[2020-08-17] MEDS: traZODone 50 MG Tablet PO (21:40)
[2020-08-17] MEDS: Acetaminophen 325 MG Tablet 650 MG PO (22:44)
[2020-08-18 03:30] VITALS: BP 134/69; PULSE 75; RESP 16; TEMP 37.2; O2SAT 95
[2020-08-18] MEDS: Levothyroxine 50 MCG Tablet PO (06:48)
[2020-08-18] MEDS: Enoxaparin 40 MG/0.4 ML Syringe SC (06:48)
[2020-08-18 08:00] LABS: Absolute Lymphocyte Count 0.71 X10^3/uL (0.83-4.51); Absolute Neutrophil Count 2.2 X10^3/uL (2.0-7.7); Basophil# 0.02 X10^3/uL; Basophil% 0.5 % (0-1); Eosinophil# 0.55 X10^3/uL; Eosinophils% 14.2 % (0-5); Hematocrit 31.7 % (37-47); Lymphocyte # 0.71 X10^3/ul (4.0); Lymphocyte % 18.4 % (19-41); Mean Corp Hgb Conc 31.5 g/dL (32-36); Mean Corpuscular Hgb 30.2 pg (27.0-32.0); Mean Corpuscular Volume 95.8 fL (81-99); Mean Platelet Vol. 9.2 fl (6.2-12.0); Monocyte# 0.42 X10^3/uL; Monocyte% 10.9 % (0-10); NRBC Flagged by Analyzer 0 % (0-5); Neutrophil # 2.15 X10^3/uL (2.7-7.7); Neutrophil % 55.7 % (47-70); Platelet Count 237 K/mm3 (150-450); RBC Distribution Width CV 13.1 % (11.6-14.6); RBC Distribution Width SD 46.4 fl (35.1-43.9); Red Blood Count 3.31 M/mm3 (4.2-5.4); White Blood Count 3.9 K/mm3 (4.4-11.0)
[2020-08-18 08:16] LABS: ALB/GLOB Ratio 0.9 RATIO (0.9-2.4); AST(SGOT) 16 U/L (15-37); Alanine Aminotransfer ALT/SGPT 24 U/L (13-56); Alkaline Phosphatase 69 U/L (45-117); Anion Gap 5 (5-15); BUN 15 mg/dL (7-18); BUN/Creat Ratio 18.8 RATIO (10-20); Calcium,Total 8.7 mg/dL (8.5-10.1); Chloride 110 mmol/L (98-107); EST Glomerular Filtration Rate 73 mL/min (>60); Est Glom Filt Rate - Afr Amer 88 mL/min (>60); Estimated Creatinine Clearance 59.38 ml/min; Globulin 3.5 g/dL (2.2-4.2); Glucose 87 mg/dL (74-106); Potassium 3.7 mmol/L (3.5-5.1); Protein, Total 6.5 g/dL (6.4-8.2); Sodium Level 141 mmol/L (136-145)
[2020-08-18] MEDS: Gabapentin 300 MG Capsule PO ×2 (08:38→12:22)
[2020-08-18 08:40] VITALS: PULSE 80
[2020-08-18 09:08] VITALS: BP 123/57; PULSE 80; RESP 16; TEMP 36.8; O2SAT 96
--- NOTE | 2020-08-18 10:39 | DCINST_ITS ---
- Discharge Diagnoses Current Active Problems: Current Active and Chronic Problems (Last Reviewed 08/16/20 @ 15:[address] 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) Peptic ulcer disease (Chronic) Osteoarthritis of right hip (Chronic) Low back pain (Chronic) Allergic rhinitis (Chronic) Osteoporosis (Chronic) Asthma (Chronic) Insomnia (Chronic) Recurrent UTI (Chronic) Constipation (Chronic) Overactive bladder (Chronic) Hyponatremia (Acute) Dehydration (Acute) Acute kidney injury (Acute) History of peptic ulcer disease (Chronic) Hypothyroidism (Chronic) Hypertension (Chronic) You will use the following diet at home:: Cardiac Your food should be the consistency of: Regular Your liquids should be the consistency of: Regular/Thin Discharge Activity: Return to Normal Activity Additional Instructions: Complete your antibiotics as prescribed. Take note of changes to your medications. Lasix and lisinopril were held on account of dehydration. These should be addressed by primary care doctor to have them resume. Continue to weigh yourself every day and let your primary care doctor know if you're gaining more than 5 lbs which would mean that you have to resume Lasix earlier. You need repeat blood work to be done within a week to follow-up on your kidney function. Allergies/Adverse Reactions: Allergies gluten Allergy (Verified 08/16/20 15:13) Food Allergy grass pollen-perennial rye, standar [grass poll-perennial rye,std] Allergy (V erified 08/16/20 10:47) sinus pressure lactose Adverse Reaction (Verified 08/16/20 10:47) Food Allergy DUST Allergy (Uncoded 08/16/20 10:47) sinus pressure MOLD Allergy (Uncoded 08/16/20 10:47) SINUS PRESSURE Medications to take at Discharge Amitriptyline HCl 25 mg PO QHS 08/16/20 Amlodipine [Norvasc] 5 mg PO DAILY 08/16/20 Ascorbic Acid [Vitamin C] 500 mg PO DAILY 08/16/20 Azelastine HCl [Astelin] 2 spray NASAL DAILY 08/16/20 Bismuth Subsalicylate [Pepto-Bismol] 262 mg PO PRN PRN 08/16/20 Cetirizine HCl [Zyrtec] 10 mg PO DAILY PRN 08/16/20 Fluticasone 0.05% [Flonase Nasal [place]] 2 spray NASAL QHS 08/16/20 Gabapentin [Neurontin] 300 mg PO TID 08/16/20 Guaifenesin/Pseudoephedrne HCl [Mucinex D ER 600-60 mg Tablet] 1 ea PO DAILY PRN 08/16/20 Levothyroxine [Synthroid] 50 mcg PO DAILY 08/16/20 Pantoprazole Sodium [Protonix] 40 mg PO BID 08/16/20 Polyethylene Glycol 3350 [Miralax] 17 gm PO DAILY 08/16/20 traZODone [Desyrel] 50 mg PO QHS 08/16/20 Acetaminophen [Tylenol Tablet] 650 mg PO Q6H PRN PRN tablet 08/18/20 Cefdinir 300 mg PO BID 5 Days #10 cap 08/18/20 L.acidoph,Paracasei, B.lactis [Probiotic] 1 ea PO DAILY 30 Days #30 cap 08/18/20 The following prescriptions were given: Cefdinir 300 mg PO BID 5 Days #10 cap Transmission Status: Pending to [id number] L.acidoph,Paracasei, B.lactis [Probiotic] 1 ea PO DAILY 30 Days #30 cap Transmission Status: Pending to [id number] Primary Care Physician: Roma Grajeda DO [Primary Care Provider] - Please follow up with your Primary Care Physician in: within 2 weeks Test Results: Test results from this visit will be discussed in further detail at your follow- up appointment, if applicable. Please Follow Up With: Lorena Gutierrez MD When: as scheduled Proposed Discharge Date: 08/18/20
--- NOTE | 2020-08-18 10:44 | PCM.DC.SUM ---
Discharge Date and Diagnosis - Problem List Patient Problems: Active and Suspected Problems (Last Reviewed 08/16/20 @ 15:[address] Rafael Lazcano DO) Debility (Acute) Severe sepsis (Acute) UTI (urinary tract infection) (Acute) Sepsis (Acute) Recurrent UTI (Acute) Hyponatremia (Acute) Urinary tract infection (Suspected) Dehydration (Acute) Acute kidney injury (Acute) Date of Admission: 08/16/20 Date of Discharge: 08/18/20 - Primary Discharge Diagnosis Acute Problems: Active Problems (Last Reviewed 08/16/20 @ 15:[address] Rafael Lazcano DO) Severe sepsis secondary to recurrent UTI Acute kidney injury Suspected Problems: Suspected Problems (Last Reviewed 08/16/20 @ 15:[address] Rafael Lazcano DO) Urinary tract infection (Suspected) - Secondary Discharge Diagnosis Chronic Problems: Chronic Problems (Last Reviewed 08/16/20 @ 15:[address] 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 Electronically Signed: Darron Bob, at 12:21 EST , Service support , Operations: None, - - ORIF right hip fracture Summary of Care Provided: The patient is a 84 year old F with multiple comorbidities with history of frequent recurrent UTIs, follows with Dr. Gutierrez in the outpatient. She had recently completed nitrofurantoin a day before admission comes in with progressive weakness and unable to get up. Work-up in the emergency department showed mild hyponatremia and acute kidney injury with creatinine of 1.5. Patient's baseline creatinine is less than 1. Patient had abnormal urinalysis. Urine cultures were not unremarkable. Her previous urine cultures grew Pseudomonas and also Enterococcus faecalis. Was started on IV ceftriaxone and managed as severe sepsis secondary to acute UTI. Patient acute kidney injury resolved during this hospital stay. She was kept off her Lasix and lisinopril. She will need to follow-up with her primary care doctor within 1 week to have repeat blood work done. She was asked to weigh herself every day so that her Lasix could be restarted if needed. Patient would also follow-up with Dr. Gutierrez as scheduled. Patient Problems: Active and Suspected Problems (Last Reviewed 08/16/20 @ 15:[address] Rafael Lazcano, DO) Debility (Acute) Severe sepsis (Acute) UTI (urinary tract infection) (Acute) Sepsis (Acute) Recurrent UTI (Acute) Hyponatremia (Acute) Urinary tract infection (Suspected) Dehydration (Acute) Acute kidney injury (Acute) Subjective: Date of discharge, patient was seen and examined. Denied any new complaints. Objective: Physical exam: General: Alert, oriented x3, comfortable HEENT: Atraumatic, Normocephalic Neck: No Nodes, Thyroid Normal Size and Texture Lungs: Diminished Cardiovascular: Regular rate, Regular Rhythm, Normal S1, Normal S2, No murmurs Abdomen: Bowel Sounds Present, Soft, Non Tender, Non-Distended, No Hepato-splenomegaly Extremities: No edema Skin: No rashes, No breakdown Musculoskeletal: No Tenderness to Palpation of Joints or Extremities, No Muscle Wasting Neurological: Sensory exam intact to light touch and pain, Coordination normal Psych/Mental Status: Normal Affect, Appropriate - Physical Exam Vitals/I&O's: Vital Signs Temp Pulse Resp BP Pulse Ox 98.2 F 80 16 123/57 H 96 08/18/20 09:08 08/18/20 09:08 08/18/20 09:08 08/18/20 09:08 08/18/20 09:08 Oxygen Delivery Method Room Air Weight: 70.6 kg Body Mass Index (BMI) 31.4 Intake and Output for Last 24 Hours 08/16/20 08/17/20 08/18/20 23:59 23:59 23:59 Intake Total 1550 / 1850 1010 / 1585 875 / 875 Output Total 550 / 950 1700 / 2100 600 / 600 Balance 1000 / 900 -690 / -515 275 / 275 Microbiology Past 72 Hours 08/16/20 13:20 Urine, Random Urine Culture - Preliminary Culture exhibits no growth. 08/16/20 11:15 Blood Culture (Wb) - Right Wrist Blood Culture - Preliminary No growth in 48 hours. 08/16/20 11:10 Blood Culture (Wb) - Left Wrist Blood Culture - Preliminary No growth in 48 hours. Laboratory Results 08/18/20 07:54: WBC 3.9 L, RBC 3.31 L, Hgb 10.0 L, Hct 31.7 L, MCV 95.8, MCH 30.2, MCHC 31.5 L, RDW Std Deviation 46.4 H, RDW Coeff of Laury 13.1, Plt Count 237, MPV 9.2, Immature Gran % (Auto) 0.300, Neut % (Auto) 55.7, Lymph % (Auto) 18.4 L, Brule % (Auto) 10.9 H, Eos % (Auto) 14.2 H, Baso % (Auto) 0.5, Absolute Neuts (auto) 2.2, Absolute Lymphs (auto) 0.71 L, Nucleated RBC % 0 08/18/20 07:54: Sodium 141, Potassium 3.7, Chloride 110 H, Carbon Dioxide 26.0, Anion Gap 5, BUN 15, Creatinine 0.80, Estim Creat Clear Calc 59.38, Est GFR (MDRD) Af Amer 88, Est GFR (MDRD) Non-Af 73, BUN/Creatinine Ratio 18.8, Glucose 87, Calcium 8.7, Total Bilirubin 0.30, AST 16, ALT 24, Alkaline Phosphatase 69, Total Protein 6.5, Albumin 3.0 L, Globulin 3.5, Albumin/Globulin Ratio 0.9 Current Medications Acetaminophen (Acetaminophen 325 Mg Tablet) 650 mg PO Q6H PRN PRN PRN Reason: Pain Score 1-10/Temp > 100.7 F Last Admin: 08/17/20 22:44 Dose: 650 mg Documented by: Amitriptyline HCl (Amitriptyline 25 Mg Tablet) 25 mg PO QHS [facility] Last Admin: 08/17/20 21:40 Dose: 25 mg Documented by: Amlodipine Besylate (Amlodipine 5 Mg Tablet) 5 mg PO DAILY [facility] Last Admin: 08/17/20 08:11 Dose: 5 mg Documented by: Ascorbic Acid (Ascorbic Acid 500 Mg Tablet) 500 mg PO DAILY [facility] Last Admin: 08/17/20 08:11 Dose: 500 mg Documented by: Azelastine HCl (Azelastine Hcl Nasal.Sry) 2 spray NASAL DAILY [facility] Last Admin: 08/17/20 08:11 Dose: 2 spray Documented by: Enoxaparin Sodium (Enoxaparin 40 Mg/0.4 Ml Syringe) 40 mg SC DAILY@0600 [facility] Last Admin: 08/18/20 06:48 Dose: 40 mg Documented by: Fluticasone Propionate (Fluticasone 0.05% 1 [place] Nasal.Sry) 2 spray NASAL QHS [facility] Last Admin: 08/17/20 21:40 Dose: 2 spray Documented by: Gabapentin (Gabapentin 300 Mg Capsule) 300 mg PO TIDCM [facility] Last Admin: 08/18/20 08:38 Dose: 300 mg Documented by: Guaifenesin (Guaifenesin 600 Mg Tablet) 600 mg PO BID PRN PRN Reason: CONGESTION Last Admin: 08/17/20 19:46 Dose: 600 mg Documented by: Ceftriaxone Sodium (Rocephin) 1 gm in 50 mls @ 100 mls/hr IV Q24 [facility] Last Infusion: 08/17/20 11:18 Dose: Infused Documented by: Levothyroxine Sodium (Levothyroxine 50 Mcg Tablet) 50 mcg PO DAILY@0600 [facility] Last Admin: 08/18/20 06:48 Dose: 50 mcg Documented by: Loratadine (Loratadine 10 Mg Tablet) 10 mg PO DAILY PRN PRN PRN Reason: ALLERGY SYMPTOMS Ondansetron HCl (Ondansetron 4 Mg/2 Ml Vial) 4 mg IV Q8H PRN PRN PRN Reason: NAUSEA/VOMITING Pantoprazole Sodium (Pantoprazole Sodium 40 Mg Tablet) 40 mg PO BID [facility] Last Admin: 08/17/20 21:41 Dose: 40 mg Documented by: Polyethylene Glycol (Polyethylene Glycol 3350 17 Gm Packet) 17 gm PO DAILY [facility] Last Admin: 08/17/20 08:11 Dose: 17 gm Documented by: Sodium Chloride (0.9% Saline Lock 10 Ml Syringe) 10 - 40 ml IV UD PRN PRN Reason: SALINE FLUSH Last Admin: 08/17/20 10:30 Dose: 10 ml Documented by: Trazodone HCl (Trazodone 50 Mg Tablet) 50 mg PO QHS [facility] Last Admin: 08/17/20 21:40 Dose: 50 mg Documented by: Discharge Diet: Low fat/ Low Cholesterol, 2000 mg Sodium Diet Discharge Activity: Return to Normal Activity Home Medications: Medications to take at Discharge Amitriptyline HCl 25 mg PO QHS 08/16/20 Amlodipine [Norvasc] 5 mg PO DAILY 08/16/20 Ascorbic Acid [Vitamin C] 500 mg PO DAILY 08/16/20 Azelastine HCl [Astelin] 2 spray NASAL DAILY 08/16/20 Bismuth Subsalicylate [Pepto-Bismol] 262 mg PO PRN PRN 08/16/20 Cetirizine HCl [Zyrtec] 10 mg PO DAILY PRN 08/16/20 Fluticasone 0.05% [Flonase Nasal [place]] 2 spray NASAL QHS 08/16/20 Gabapentin [Neurontin] 300 mg PO TID 08/16/20 Guaifenesin/Pseudoephedrne HCl [Mucinex D ER 600-60 mg Tablet] 1 ea PO DAILY PRN 08/16/20 Levothyroxine [Synthroid] 50 mcg PO DAILY 08/16/20 Pantoprazole Sodium [Protonix] 40 mg PO BID 08/16/20 Polyethylene Glycol 3350 [Miralax] 17 gm PO DAILY 08/16/20 traZODone [Desyrel] 50 mg PO QHS 08/16/20 Acetaminophen [Tylenol Tablet] 650 mg PO Q6H PRN PRN tab 08/18/20 Cefdinir 300 mg PO BID 5 Days #10 cap 08/18/20 L.acidoph,Paracasei, B.lactis [Probiotic] 1 ea PO DAILY 30 Days #30 cap 08/18/20 Following Prescriptions Were Given to Patient: Cefdinir 300 mg PO BID 5 Days #10 cap Transmission Status: Received by [id number] L.acidoph,Paracasei, B.lactis [Probiotic] 1 ea PO DAILY 30 Days #30 cap Transmission Status: [id number] Primary Care Physician: Roma Grajeda DO [Primary Care Provider] - Please follow up with your Primary Care Physician in: within 2 weeks Please Follow Up With: Lorena Gutierrez MD When: as scheduled Disposition: Home Minutes spent on discharge:: 40 Patient Condition:: Stable Medical Necessity - Tobacco Use Smoking Status: Never smoker Meaningful Use Info Meaningful Use Diagnoses (Choose all that apply): None applicable Inpatient E&M: 46971 Disch Hosp
[2020-08-18] MEDS: Ceftriaxone 1 GM/50 ML BAG IV (10:49)
[2020-08-18] MEDS: 0.9% Saline Lock 10 ML Syringe IV (10:49)
[2020-08-18] MEDS: Azelastine HCl NASAL.SRY 2 SPRAY NASAL (10:52)
[2020-08-18] MEDS: Ascorbic Acid 500 MG Tablet PO (10:53)
[2020-08-18] MEDS: Pantoprazole Sodium 40 MG Tablet PO (10:53)
[2020-08-18] MEDS: amLODIPine 5 MG Tablet PO (10:53)
[2020-08-18 12:08] VITALS: BP 134/62; PULSE 81; RESP 18; TEMP 36.9; O2SAT 98
--- NOTE | 2020-08-20 14:49 | CASEMGMT ---
JAYDEN MENDOZA Discharge Follow-up Phone Call: LAISHA: Dillon Strata: 3 Call Date: 08/20/2020 Discharge Date: 08/18/20 Time of Call: 1450 Duration: 3 min Admitting Diagnosis: UTI, Sepsis JAYDEN MENDOZA completed follow-up phone call after recent hospitalization. Patient states she is doing well and had no questions regarding discharge instructions. Patient was able to fill prescriptions without any issues. Patient has follow-up appts scheduled. No further questions or concerns at this time.
== END 2020-08-18 12:25 | disposition home or self-care (01) | DRG 872 ==
LOC: ED 11:18 → MS3 15:35
PROVIDERS: Emergency Provider Emergency Medicine; PCP Family Medicine; Visit Provider Internal Medicine
DX: A41.9 Sepsis, unspecified organism (principal); N17.9 Acute kidney failure, unspecified; N39.0 Urinary tract infection, site not specified; E87.1 Hypo-osmolality and hyponatremia; R65.20 Severe sepsis without septic shock; E86.0 Dehydration; I10 Essential (primary) hypertension; N32.81 Overactive bladder; E03.9 Hypothyroidism, unspecified; M16.11 Unilateral primary osteoarthritis, right hip; J45.909 Unspecified asthma, uncomplicated; F32.9 Major depressive disorder, single episode, unspecified; Z79.890 Hormone replacement therapy; Z79.899 Other long term (current) drug therapy; Z87.11 Personal history of peptic ulcer disease; Z87.440 Personal history of urinary (tract) infections; Z96.641 Presence of right artificial hip joint
CPT/HCPCS: 36415; 71045; 80048; 80053; 81001; 83605; 83735; 84484; 85025; 87040; 87086; 87088; 87635; 93005; 94762; 97162; 97166; 97530; 97535; 97802; 99285; J7030; J7040; A4216; U0002

== ENCOUNTER → 2020-08-27 11:04 | Outpatient (CLI) | payer MEDICARE, SELFPAY ==
[2020-08-16 15:42] VITALS: BMI 31.4
[2020-08-27 13:00] LABS: Anion Gap 5 (5-15); BUN 16 mg/dL (7-18); BUN/Creat Ratio 17.8 RATIO (10-20); Calcium,Total 9.2 mg/dL (8.5-10.1); Chloride 104 mmol/L (98-107); EST Glomerular Filtration Rate 63 mL/min (>60); Est Glom Filt Rate - Afr Amer 77 mL/min (>60); Glucose 79 mg/dL (74-106); Potassium 4.2 mmol/L (3.5-5.1); Sodium Level 135 mmol/L (136-145)
== END ==
PROVIDERS: PCP Family Medicine; Visit Provider Family Medicine
DX: I10 Essential (primary) hypertension (principal)
CPT/HCPCS: 36415; 80048

== ENCOUNTER → 2020-09-29 13:46 | Outpatient (CLI) | payer MEDICARE, SELFPAY ==
--- NOTE | 2020-09-29 13:49 | RAD_ITS ---
STUDY: X-RAY - LUMBOSACRAL SPINE REASON FOR EXAM: Female, 84 years old. Pain TECHNIQUE: 6 view(s) of the lumbosacral spine were obtained including bending and flexion views.. COMPARISON: Comparison is made with prior study dated 06/19/2018. FINDINGS: Normal lumbar lordosis. There is no substantial scoliosis. There is normal alignment of the vertebrae. The patient is status post laminectomy and posterior interpedicular screw and arvind fixation at the L3-L4, L4-L5 and L5-S1 levels. There is evidence of prosthetic disc insertion. There has been no change. 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 Status post right total hip replacement. There is atherosclerotic calcification of the abdominal aorta without a demonstrated aneurysm. RAD/L/S Spine Bending Flex/Ext IMPRESSION: Status post laminectomy and interpedicular screw and arvind fixation at the L3-L4 L4-L5 and L5-S1 levels with prosthetic disc. There has been no change. Electronically Signed: Darron Rojas, at 13:56 EST , Service support ,
== END ==
PROVIDERS: PCP Family Medicine; Referring Provider Anesthesiology Pain Medicine; Visit Provider Anesthesiology Pain Medicine
DX: M96.1 Postlaminectomy syndrome, not elsewhere classified (principal)
CPT/HCPCS: 72120

== ENCOUNTER 2020-10-29 11:22 | Outpatient (RCR) | payer MEDICARE, SELFPAY | END 2020-10-29 23:59 | LOC: IMMUN 11:22 | PROVIDERS: PCP Family Medicine; Visit Provider Family Medicine | DX: Z23 Encounter for immunization (principal) | CPT/HCPCS: 0011A; 0012A; 91301 ==

== ENCOUNTER 2020-11-09 15:54 | Emergency (ER) | payer MEDICARE, SELFPAY ==
[2020-11-09] VITALS (7 sets, daily range): BP systolic 113–129; BP diastolic 51–69; PULSE 93–108; RESP 19–29; TEMP 37.2–38.7; O2SAT 90–99; BMI 34.4
[2020-11-09] MEDS: Acetaminophen 500 MG Tablet 1000 MG PO (16:38)
[2020-11-09 16:55] LABS: Bacteria 0 SEEN /hpf (None Seen); Mucous, Urine 0 SEEN /hpf (<or=2+)
[2020-11-09 16:58] LABS: Color, Urine Yellow (Yellow); Glucose, Dipstick Normal (Normal); Ketone-Dipstick 5 mg/dl (Negative); Leukocyte Esterase-Dipstick 100 /ul (Negative); Nitrite-Dipstick Negative (Negative); Occult Blood-Urine 150 /ul (Negative); Protein-Dipstick 30 mg/dl (Negative); Urine Bilirubin Dipstick Negative (Negative); Urine Clarity Clear (Clear); Urine Urobilinogen Normal (Normal)
[2020-11-09 17:17] LABS: Red Blood Cells-Urine 10-25 SEEN /hpf (0-5); Squamous Epithelial Cells - UA 0-5 SEEN /hpf (5-10); White Blood Cells 5-10 SEEN /hpf (0-5)
[2020-11-09 17:44] LABS: Absolute Lymphocyte Count 0.11 X10^3/uL (0.83-4.51); Absolute Neutrophil Count 8.7 X10^3/uL (2.0-7.7); Basophil# 0.01 X10^3/uL; Basophil% 0.1 % (0-1); Eosinophil# 0.17 X10^3/uL; Eosinophils% 1.9 % (0-5); Hematocrit 34.1 % (37-47); Hemoglobin 10.9 g/dL (12.0-15.0); Lymphocyte # 0.11 X10^3/ul (4.0); Lymphocyte % 1.2 % (19-41); Mean Corpuscular Volume 96.9 fL (81-99); Mean Platelet Vol. 9.2 fl (6.2-12.0); Monocyte% 1.1 % (0-10); NRBC Flagged by Analyzer 0 % (0-5); Neutrophil # 8.74 X10^3/uL (2.7-7.7); Neutrophil % 95.3 % (47-70); POSITIVE DIFFERENTIAL YES; Platelet Count 220 K/mm3 (150-450); RBC Distribution Width CV 13.2 % (11.6-14.6); RBC Distribution Width SD 47.1 fl (35.1-43.9); Red Blood Count 3.52 M/mm3 (4.2-5.4); White Blood Count 9.2 K/mm3 (4.4-11.0)
[2020-11-09] MEDS: Ondansetron ODT 4 MG Tablet PO (17:55)
[2020-11-09 17:56] LABS: International Normalized Ratio 1.2; Prothrombin Time (Protime)PT. 14.2 SECONDS (11.7-14.9)
[2020-11-09 17:57] LABS: AST(SGOT) 136 U/L (15-37); Alanine Aminotransfer ALT/SGPT 96 U/L (13-56); Albumin, Serum 3.1 g/dL (3.2-5.0); Alkaline Phosphatase 71 U/L (45-117); Anion Gap 6 (5-15); BUN 26 mg/dL (7-18); Calcium,Total 8.8 mg/dL (8.5-10.1); Chloride 106 mmol/L (98-107); Creatinine, Serum 1.13 mg/dL (0.55-1.02); EST Glomerular Filtration Rate 49 mL/min (>60); Est Glom Filt Rate - Afr Amer 59 mL/min (>60); Estimated Creatinine Clearance 44.48 ml/min; Globulin 3.2 g/dL (2.2-4.2); Glucose 108 mg/dL (74-106); Partial Thromboplast Time 30.7 Seconds (24.1-36.2); Potassium 4.1 mmol/L (3.5-5.1); Protein, Total 6.3 g/dL (6.4-8.2); Sodium Level 139 mmol/L (136-145)
[2020-11-09 18:04] LABS: Differential Indicated SCAN CRITERIA MET
--- NOTE | 2020-11-09 18:05 | RAD_ITS ---
STUDY: X-RAY CHEST REASON FOR EXAM: Female, 84 years old. was on keflex for bladder infection then developed fever last night after taking for 4-5 days. switched antibiotic and just took one dose. temp 101.6 and shaking at home. TECHNIQUE: AP portable COMPARISON: 08/16/2020 FINDINGS: Diffuse bilateral perihilar interstitial thickening. There is no demonstrated pleural abnormality. The heart is upper normal size. Normal mediastinum and alex. Normal visualized pulmonary arteries. Tortuous mildly calcified aortic arch and descending thoracic aorta. Dorsal spine demonstrates degenerative change.. Normal visualized ribs, and clavicles. Bilateral shoulder prostheses are noted There is no demonstrated abnormality of the visualized soft tissue structures of the upper abdomen. Findings are similar to that seen on prior study RAD/Chest 1 View (Portable) IMPRESSION: Chronic interstitial changes without definitive evidence for acute infiltrate. Electronically Signed: Himanshu Gibbs MD at 18:27 EST , Service support ,
[2020-11-09 18:21] LABS: Lactic Acid 1.4 mmol/L (0.4-1.9)
[2020-11-09 18:24] LABS: Differential Comment SCANNED
--- NOTE | 2020-11-09 18:32 | ED.VISSUMM ---
- ER Visit Summary Date of Service: 11/09/20 Chief Complaint: Dysuria and frequency History of Present Illness: The patient is a [address] Grajeda and Dr. Gutierrez. She reports that she had dysuria and frequency for the past 3 to 4 days. She has a fever and shaking chills that began today. She states that she is on suppressive Keflex and spoke with Dr. Gutierrez yesterday. This was stopped and she was started on Macrobid. Patient denies any sore throat, cough, chest pain, or shortness of breath. No abdominal pain, nausea, vomiting, or diarrhea. She reports she has chronic back that is unchanged. She denies headache, numbness, or weakness. Physical Examination: Vitals: One 1.6, 120/69, 96, 19, 93% room air which is not hypoxic. General: Well-nourished and well-developed. Head: Normocephalic atraumatic. Neck: Supple, no lymphadenopathy. No JVD. Nontender. Cardiovascular: Regular rate and rhythm. 2 out of 6 systolic murmur. Respiratory: No respiratory distress. Clear to auscultation bilaterally. Abdominal: Soft, nontender, nondistended, normal bowel sounds. No guarding, rebound, or peritoneal signs. Back: Nontender. Extremities: Nontender, 1+ pitting edema lower extremities bilaterally. Skin: Normal color, no rash. Neurologic: Alert and oriented ?3. Cranial nerves II through XII are intact. Normal strength and sensation. Psych: Normal affect. Test Results: CBC shows an H&H 10.9 and 34.1, second neutrophils 9 5, lymphocytes 1. Chem-7 shows a glucose 108, BUN 26, creatinine 1.13. LFTs show a total protein of 6.3 and albumin 3.1, ALT is 96, AST is 136. Coags are normal. UA shows 5-10 white blood cells, 10-25 red blood cells, no bacteria. Lactic acid is 1.4. COVID-19 is negative. Clinical Impression(s) from Imaging Studies Chest X-Ray 11/09/20 18:05 IMPRESSION: Chronic interstitial changes without definitive evidence for acute infiltrate. Electronically Signed: Himanshu Gibbs MD at 18:27 EST , Service support , Emergency Department Course and Treatment: Patient was given Tylenol for her fever. She developed nausea from this. She was given Zofran p.o. She is now resting comfortably. Treatment Plan: Patient feels well and would like to go home. Her urine was sent for culture. She is instructed to continue her Macrobid. However, I do not think her urine is the source of her fever. She will be discharged with Zofran. Instructed use Tylenol for her fever. Follow-up with her primary care physician 1 to 2 days if not improving. Return to the emergency department for any worsening symptoms. Disposition: To home in improved and stable condition. Impression: 1. Fever, uncertain cause. This note was generated with [employer] dictation software. It may contain incorrect words, spelling, and punctuation that were not noted in review of the chart prior to signing ED Disposition - Plan for ED Patient: Instructions: ED FUO Adult Prescriptions: Ondansetron [Zofran Odt] 4 mg PO Q8H PRN PRN #10 tablet PRN Reason: Nausea Referrals: Roma Grajeda DO [Primary Care Provider] - 1-2 Days if not improving
== END 2020-11-09 20:23 | disposition home or self-care (01) ==
LOC: ED 16:34
PROVIDERS: Emergency Provider Emergency Medicine; PCP Family Medicine
DX: R50.9 Fever, unspecified (principal); R30.0 Dysuria; Z20.822 Contact with and (suspected) exposure to COVID-19; I10 Essential (primary) hypertension; R35.0 Frequency of micturition; R11.0 Nausea; M54.9 Dorsalgia, unspecified; G89.29 Other chronic pain; Z79.899 Other long term (current) drug therapy
CPT/HCPCS: 36415; 71045; 80053; 81001; 83605; 85025; 85610; 85730; 87040; 87086; 87426; 99285; J7030; P9612; A4216

== ENCOUNTER 2020-11-11 03:39 | Inpatient (IN) | payer MEDICARE, SELFPAY ==
[2020-11-09 15:56] VITALS: BMI 34.4
[2020-11-11] VITALS (13 sets, daily range): BP systolic 109–123; BP diastolic 51–96; PULSE 86–98; RESP 16–20; TEMP 36.4–37.1; O2SAT 88–99; BMI 29.7; BMI 29.4; BMI 29.5
--- NOTE | 2020-11-11 03:48 | EKG12_ITS ---
Test Reason : WEAKNESS Blood Pressure : / mmHG Vent. Rate : 084 BPM Atrial Rate : 084 BPM P-R Int : 142 ms QRS Dur : 080 ms QT Int : 376 ms P-R-T Axes : 034 -19 023 degrees QTc Int : 444 ms Normal sinus rhythm Cannot rule out Anterior infarct , age undetermined Abnormal ECG Confirmed by MEERA LE, NAVEEN ([id number]), editor managing newspaper KRISTI RAMOS ([id number]) on 11/12/2020 11:14:13 AM Referred By: BB Confirmed By:NAVEEN ESTES MD
--- NOTE | 2020-11-11 03:48 | RAD_ITS ---
STUDY: X-RAY CHEST REASON FOR EXAM: Female, 84 years old. weakness TECHNIQUE: 2 AP portable views of the chest were obtained. COMPARISON: 11/09/2020. 03/09/2017. FINDINGS: There is chronic interstitial prominence in the lungs. There is increased density in the left lung base compared to previous studies, consistent with a small left pleural effusion and left lower lobe infiltrate or atelectasis.. . There is borderline cardiomegaly. Normal mediastinum and alex. There is atherosclerotic calcification of the aortic arch with tortuosity. There are no demonstrated acute fractures or destructive bone lesions. There are bilateral shoulder prostheses. There is no demonstrated abnormality of the visualized soft tissue structures of the upper abdomen. RAD/Chest 1 View (Portable) IMPRESSION: New finding of a small left pleural effusion with overlying atelectasis and/or infiltration in the left lower lobe. Chronic interstitial lung disease. Borderline heart size. Electronically Signed: Robi Jones MD at 4:55 EST , Service support ,
--- NOTE | 2020-11-11 03:48 | ED.VIS.GEN ---
History of Present Illness Chief Complaint: Weakness Informant: Patient Onset: Weeks - a couple Context: Gradual Onset Timing: Continuous Quality: weak Location: all over/generally Current Severity: Severe Maximum Severity: Severe Worsened by: nothing Relieved by: nothing. taking Macrodantin for poss UTI. Associated Symptoms: PORTER BAGGAGE cough, otherwise none. Narrative: Patient states she has been gradually feeling generally weak over the last couple weeks, she had a minor fall a day or 2 ago, EMS responded but she refused to come to the hospital. This occurred again this morning and she was not able to get up. She denies any injury, fell to her buttocks, did not hit her head, EMS agrees that she did not appear to have any injury. She was not able to stand or walk at home without a significant amount of assistance. She denies having any urinary symptoms, but was placed on an antibiotic for a urinary tract infection based on some urinary symptoms she admitted to having during her last visit here, her doctor had put her on the antibiotic prior to the ER visit, and her urine did not appear to show significant signs of infection. She has had recurrent urinary infections in the past, however. She denies any shortness of breath or chest pain but admits to having a mild nonproductive cough recently for about the past week or so. She was tested for Covid 2 days ago and was negative and denies having contact with anyone that she knows of with it. Patient also states that her oral food and fluid intake has been very poor since she has had no appetite and felt nauseated. 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 (4) History of peptic ulcer disease Status: Chronic (5) Hypertension Status: Chronic (6) Hypothyroidism Status: Chronic (7) Osteoporosis Status: Chronic (8) Overactive bladder Status: Chronic Past Medical History - Allergies and Home Meds Allergies/Adverse Reactions: Allergies gluten Allergy (Verified 08/16/20 15:13) Food Allergy grass pollen-perennial rye, standar [grass poll-perennial rye,std] Allergy (Verified 08/16/20 10:47) sinus pressure lactose Adverse Reaction (Verified 08/16/20 10:47) Food Allergy DUST Allergy (Uncoded 08/16/20 10:47) sinus pressure MOLD Allergy (Uncoded 08/16/20 10:47) SINUS PRESSURE Primary Care Physician: Roma Grajeda DO [Primary Care Provider] - Surgical History: appendectomy, cataract, cholecystectomy, hysterectomy, total hip arthroplasty - Right, 11/07/[address] Huynh., tonsillectomy, - - both shoulders,back knee and shoulders,eye surgeries, right knee surgery, lumbar spine surgery, bunionectomy, Smoking Status: Never smoker - Family History Maternal Family History: Reports: - - No coronary artery disease Paternal Family History: Reports: - Review of Systems General: Reports: Fever - off and on but subjectively has not felt like it this week, Malaise. Denies: Chills, Sweats Eyes: Denies: Visual changes - bilaterally, Diplopia ENT: Denies: Rhinorrhea, Sore throat Cardiovascular: Denies: Chest pain, Palpitations Respiratory: Denies: Dyspnea, Cough, Dyspnea on exertion Gastrointestinal: Reports: Nausea - at times. Denies: Abdominal pain, Vomiting, Diarrhea, Melena, Hematochezia Genitourinary: Denies: Dysuria, Hematuria, Frequency Musculoskeletal: Denies: Back pain, Swelling, Extremity Pain Skin: Denies: Rash, Wounds Neurological: Denies: Headache, Weakness, Numbness Physical Exam Vital Signs/Narrative: Vital Signs Temp Pulse Resp BP Pulse Ox 11/11/20 03:39 98.8 F 95 20 H 109/53 L 88 Inital Vital Signs reviewed: Yes General: Well nourished, Well developed, No Acute Distress Head: Normocephalic, Atraumatic Eyes: Perrl, EOMI ENT: Moist mucous membranes, No rhinorrhea, - - POP clear Neck: Supple, Nontender, No lymphadenopathy, No JVD Cardiovascular: Regular rate, Regular rhythm, No murmurs Respiratory: No distress, Chest nontender, Rhonchi - bibasilar. Negative for: Rales, Wheezing, Retractions Abdomen: Soft, Nontender, Nondistended, Normal bowel sounds Back: Nontender, Normal Inspection. Negative for: CVA tenderness Extremities: Nontender, No edema. Negative for: Calf Tenderness Skin: Normal color, No rash, No Trauma Neurological: Alert, Oriented x3, Cranial nerves II-XII grossly intact, Normal Strength, Normal Sensation Psychological: Normal affect, Normal Mood Diagnostic/Tx/Re-eval Impressions Chest X-Ray 11/11/20 03:48 IMPRESSION: New finding of a small left pleural effusion with overlying atelectasis and/or infiltration in the left lower lobe. Chronic interstitial lung disease. Borderline heart size. Electronically Signed: Robi Jones MD at 4:55 EST , Service support , 11/11/20 03:48 Chest 1 View (Portable) [RAD] Stat Laboratory Results 11/11/20 11/11/20 11/11/20 04:20 05:05 05:05 WBC 6.7 RBC 3.18 L Hgb 9.7 L Hct 30.9 L MCV 97.2 MCH 30.5 MCHC 31.4 L RDW Std Deviation 47.4 H RDW Coeff of Laury 13.2 Plt Count 166 MPV 9.5 Immature Gran % (Auto) 0.400 Neut % (Auto) 89.5 H Lymph % (Auto) 2.4 L [place] % (Auto) 3.1 Eos % (Auto) 4.5 Baso % (Auto) 0.1 Absolute Neuts (auto) 6.0 Absolute Lymphs (auto) 0.16 L Nucleated RBC % 0 PT 14.9 INR 1.2 APTT 36.4 H Sodium Potassium Chloride Carbon Dioxide Anion Gap BUN Creatinine Estim Creat Clear Calc Est GFR (MDRD) Af Amer Est GFR (MDRD) Non-Af BUN/Creatinine Ratio Glucose Lactic Acid Calcium Total Bilirubin AST ALT Alkaline Phosphatase Troponin I Total Protein Albumin Globulin Albumin/Globulin Ratio Urine Color Yellow Urine Clarity Cloudy Urine pH 5.0 Ur Specific [place] 1.015 Urine Protein 30 H Urine Glucose (UA) Normal Urine Ketones 5 H Urine Occult Blood 50 H Urine Nitrite Negative Urine Bilirubin Negative Urine Urobilinogen Normal Ur Leukocyte Esterase 100 H Urine RBC 5-10 SEEN Urine WBC 10-25 SEEN Ur Squamous Epith Cells 0 SEEN Amorphous Sediment 1+ Urine Bacteria 0 SEEN Urine Mucus 0 SEEN 11/11/20 11/11/20 05:05 05:05 WBC RBC Hgb Hct MCV MCH MCHC RDW Std Deviation RDW Coeff of Laury Plt Count MPV Immature Gran % (Auto) Neut % (Auto) Lymph % (Auto) [place] % (Auto) Eos % (Auto) Baso % (Auto) Absolute Neuts (auto) Absolute Lymphs (auto) Nucleated RBC % PT INR APTT Sodium 131 L Potassium 4.0 Chloride 98 Carbon Dioxide 26.0 Anion Gap 7 BUN 29 H Creatinine 1.18 H Estim Creat Clear Calc 28.57 Est GFR (MDRD) Af Amer 56 L Est GFR (MDRD) Non-Af 46 L BUN/Creatinine Ratio 24.6 H Glucose 111 H Lactic Acid 1.5 Calcium 8.6 Total Bilirubin 0.80 AST 51 H ALT 68 H Alkaline Phosphatase 75 Troponin I < 0.015 Total Protein 6.1 L Albumin 2.9 L Globulin 3.2 Albumin/Globulin Ratio 0.9 Urine Color Urine Clarity Urine pH Ur Specific [place] Urine Protein Urine Glucose (UA) Urine Ketones Urine Occult Blood Urine Nitrite Urine Bilirubin Urine Urobilinogen Ur Leukocyte Esterase Urine RBC Urine WBC Ur Squamous Epith Cells Amorphous Sediment Urine Bacteria Urine Mucus - Rhythm Strip Rhythm Strip: Sinus Rhythm Rate: 92 Ectopy: None - EKG Initial EKG Interpretation: Sinus Rhythm, No Acute Injury Pattern Prior: Unchanged - Medical Decision Making There was significant delay in obtaining this patient's work-up since she was such a difficult stick. After several failed attempts by nursing to get an IV and blood work, we awaited for the 1 nurse who is on shift with us to finish caring for another patient and use the ultrasound to attempt again, which he did and was successful in getting blood work and an external jugular IV, thus negating the need for a central line at this time. In the meantime her chest x-ray is showing a developing left lower lobe infiltrate, 1 view on my interpretation, correlating with radiology's interpretation as well. Since she is symptomatic I think this is probably real. Her urine is showing some signs of infection as well. I provided her antibiotic coverage for respiratory source, it is noted that she has had 3 different positive urine cultures in the past year or so. It is possible that she has a urinary tract infection still at this time as well. Blood and urine cultures were sent, her white blood count is within normal limits although there is a leftward shift, no bandemia. Her lactate is within normal limits as well. She is well-appearing but she was hypoxic on room air, but satting at 96% on 2 L nasal cannula and breathing comfortably. Plan is for admission. Given this, although she had a negative rapid Covid test 2 days ago, prior to transferring her to the floor, we will await the results of the PCR test to confirm that she is negative. ED Disposition - Plan for ED Patient: Disposition: Acute Care Hospital [facility] Diagnosis: Pneumonia, Urinary tract infection, Hypoxemia, Debility, Generalized weakness, Dehydration Referrals: Roma Grajeda DO [Primary Care Provider] -
[2020-11-11 04:25] LABS: Bacteria 0 SEEN /hpf (None Seen); Mucous, Urine 0 SEEN /hpf (<or=2+); Squamous Epithelial Cells - UA 0 SEEN /hpf (5-10)
[2020-11-11 04:29] LABS: Color, Urine Yellow (Yellow); Glucose, Dipstick Normal (Normal); Ketone-Dipstick 5 mg/dl (Negative); Leukocyte Esterase-Dipstick 100 /ul (Negative); Nitrite-Dipstick Negative (Negative); Occult Blood-Urine 50 /ul (Negative); Protein-Dipstick 30 mg/dl (Negative); Specific Gravity, Urine 1.015 (1.002-1.030); Urine Bilirubin Dipstick Negative (Negative); Urine Clarity Cloudy (Clear); Urine Urobilinogen Normal (Normal)
[2020-11-11 04:35] LABS: Red Blood Cells-Urine 5-10 SEEN /hpf (0-5); White Blood Cells 10-25 SEEN /hpf (0-5)
[2020-11-11 04:36] LABS: Amorphous Sediment 1+
[2020-11-11] MEDS: Dicyclomine 10 MG Capsule PO (05:08)
[2020-11-11 05:13] LABS: Absolute Lymphocyte Count 0.16 X10^3/uL (0.83-4.51); Basophil# 0.01 X10^3/uL; Basophil% 0.1 % (0-1); Eosinophils% 4.5 % (0-5); Hematocrit 30.9 % (37-47); Hemoglobin 9.7 g/dL (12.0-15.0); Lymphocyte # 0.16 X10^3/ul (4.0); Lymphocyte % 2.4 % (19-41); Mean Corp Hgb Conc 31.4 g/dL (32-36); Mean Corpuscular Hgb 30.5 pg (27.0-32.0); Mean Corpuscular Volume 97.2 fL (81-99); Mean Platelet Vol. 9.5 fl (6.2-12.0); Monocyte# 0.21 X10^3/uL; Monocyte% 3.1 % (0-10); NRBC Flagged by Analyzer 0 % (0-5); Neutrophil # 5.99 X10^3/uL (2.7-7.7); Neutrophil % 89.5 % (47-70); POSITIVE DIFFERENTIAL YES; Platelet Count 166 K/mm3 (150-450); RBC Distribution Width CV 13.2 % (11.6-14.6); RBC Distribution Width SD 47.4 fl (35.1-43.9); Red Blood Count 3.18 M/mm3 (4.2-5.4); White Blood Count 6.7 K/mm3 (4.4-11.0)
[2020-11-11 05:14] LABS: Differential Indicated SCAN CRITERIA MET
[2020-11-11 05:24] LABS: International Normalized Ratio 1.2; Prothrombin Time (Protime)PT. 14.9 SECONDS (11.7-14.9)
[2020-11-11] MEDS: 0.9% Normal Saline 1,000 ML 150 ML IV (05:24)
[2020-11-11] MEDS: Ceftriaxone 1 GM/50 ML BAG IV (05:24)
[2020-11-11 05:25] LABS: Partial Thromboplast Time 36.4 Seconds (24.1-36.2)
[2020-11-11 05:32] LABS: ALB/GLOB Ratio 0.9 RATIO (0.9-2.4); AST(SGOT) 51 U/L (15-37); Alanine Aminotransfer ALT/SGPT 68 U/L (13-56); Albumin, Serum 2.9 g/dL (3.2-5.0); Alkaline Phosphatase 75 U/L (45-117); Anion Gap 7 (5-15); BUN 29 mg/dL (7-18); BUN/Creat Ratio 24.6 RATIO (10-20); Calcium,Total 8.6 mg/dL (8.5-10.1); Chloride 98 mmol/L (98-107); Creatinine, Serum 1.18 mg/dL (0.55-1.02); EST Glomerular Filtration Rate 46 mL/min (>60); Est Glom Filt Rate - Afr Amer 56 mL/min (>60); Estimated Creatinine Clearance 28.57 ml/min; Globulin 3.2 g/dL (2.2-4.2); Glucose 111 mg/dL (74-106); Protein, Total 6.1 g/dL (6.4-8.2); Sodium Level 131 mmol/L (136-145)
[2020-11-11 05:35] LABS: Lactic Acid 1.5 mmol/L (0.4-1.9)
--- NOTE | 2020-11-11 06:35 | PCM.HP.STD ---
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 (8) Peptic ulcer disease Status: Chronic (9) Osteoarthritis of right hip Status: Chronic (10) Low back pain Status: Chronic (11) Allergic rhinitis Status: Chronic (12) Osteoporosis Status: Chronic (13) Asthma Status: Chronic (14) Insomnia Status: Chronic (15) Recurrent UTI Status: Chronic (16) Constipation Status: Chronic (17) Overactive bladder Status: Chronic (18) Hyponatremia Status: Acute (19) Fall Status: Acute Qualifiers: Encounter type: initial encounter Qualified Code(s): W19.XXXA - Unspecified fall, initial encounter Comment: no LOC, lost balance (20) History of peptic ulcer disease Status: Chronic (21) Hypothyroidism Status: Chronic (22) Hypertension Status: Chronic History of Present Illness Date of Admission: 11/11/20 Chief Complaint: Weakness The patient is a 84 year old F with a significant history of chronic back pain; and recurrent UTI who presents to the emergency department with a 2-week history of progressively worsening weakness. Patient is too weak even to make short distances at her home difficult. Reportedly at emergency department she was unable to get up. Reportedly in the past 24 hours patient has had 2 slight falls. However patient denies a fall but stated that she start down. Associated with symptoms is shortness of breath and occasional dry cough. She reports anorexia and fever. Patient was also seen at emergency department on 11/09/2020 and she was diagnosed with fever of unknown origin. Chronically patient takes suppressive therapy for urinary tract infection and she follows up with Dr. Gutierrez. Her chronic suppressive therapy is with Keflex. However recently she was started on Macrobid for UTI. Past Medical History Past Medical History (Chronic Problems): Chronic Problems (Last Reviewed 11/11/20 @ 07:[address] 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) Peptic ulcer disease (Chronic) Osteoarthritis of right hip (Chronic) Low back pain (Chronic) Allergic rhinitis (Chronic) Osteoporosis (Chronic) Asthma (Chronic) Insomnia (Chronic) Recurrent UTI (Chronic) Constipation (Chronic) Overactive bladder (Chronic) History of peptic ulcer disease (Chronic) Hypothyroidism (Chronic) Hypertension (Chronic) Medical History: Medical History (Last Reviewed 11/11/20 @ 07:[address] Burak Milner MD) Asthma J45.909 Kidney disease N28.9 Osteoporosis M81.0 Thyroid disease E07.9 Hypertension I10 Allergies gluten Allergy (Verified 08/16/20 15:13) Food Allergy grass pollen-perennial rye, standar [grass poll-perennial rye,std] Allergy (Verified 08/16/20 10:47) sinus pressure lactose Adverse Reaction (Verified 08/16/20 10:47) Food Allergy DUST Allergy (Uncoded 08/16/20 10:47) sinus pressure MOLD Allergy (Uncoded 08/16/20 10:47) SINUS PRESSURE Home Medications: Ambulatory Orders Medication Instructions Recorded Amitriptyline HCl 25 mg PO QHS 08/16/20 Amlodipine [Norvasc] 10 mg PO DAILY 08/16/20 Ascorbic Acid [Vitamin C] 500 mg PO DAILY 08/16/20 Azelastine HCl [Astelin] 2 spray NASAL DAILY 08/16/20 Bismuth Subsalicylate 30 ml PO PRN PRN 08/16/20 [Pepto-Bismol] Cetirizine HCl [Zyrtec] 10 mg PO DAILY PRN 08/16/20 Fluticasone 0.05% [Flonase Nasal 2 spray NASAL QHS 08/16/20 [place]] Gabapentin [Neurontin] 300 mg PO TID 08/16/20 Guaifenesin/Pseudoephedrne HCl 1 ea PO DAILY PRN 08/16/20 [Mucinex D ER 600-60 mg Tablet] Levothyroxine [Synthroid] 25 mcg PO DAILY 08/16/20 Pantoprazole Sodium [Protonix] 20 mg PO BID 08/16/20 traZODone [Desyrel] 50 mg PO QHS 08/16/20 Acetaminophen [Tylenol Tablet] 500 mg PO Q6H PRN PRN 11/09/20 Ascorbic Acid [Vitamin C] 1,000 mg PO DAILY 11/09/20 Cholecalciferol (Vitamin D3) 5,000 unit PO DAILY 11/09/20 [Vitamin D3] Famotidine [Pepcid] 10 mg PO BID 11/09/20 Furosemide [Lasix] 10 mg PO DAILY 11/09/20 Ondansetron [Zofran Odt] 4 mg PO Q8H PRN PRN #10 tab 11/09/20 traMADol [Ultram (G)] 50 mg PO Q8H PRN PRN 11/09/20 Nitrofurantoin Macrocrystals 1 tab PO BID 11/11/20 [Macrobid] Surgical History: appendectomy, cataract, cholecystectomy, hysterectomy, total hip arthroplasty - Right, 11/07/[address] 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 Denies: Chills, Weight Change HEENT: Denies: Head Aches, Sinus Congestion, Sinus Drainage Cardiovascular: Denies: Chest Pain, Palpitations Respiratory: Reports: Cough, Shortness of Breath. Denies: Shortness of breath at rest, Sputum production Gastrointestinal: Denies: Abdominal Pain, Nausea, Vomiting Genitourinary: Denies: Dysuria Musculoskeletal: Denies: Joint Pain, Joint Tenderness Skin: Denies: Rash, Wounds Neurological: Denies: Numbness, Tingling, Focal weakness Psychiatric: Denies: Anxiety, Depression, Homicidal Ideations, Suicidal Ideations Hematologic/ Lymphatic: Denies: Easy Bruising, Easy Bleeding VTE Information - Inpt Only VTE Present on Admission: No VTE Mechan Device Prophylaxis: None VTE Pharm Prophylaxis ordered?: Yes Patient Problems: Active and Suspected Problems (Last Reviewed 11/11/20 @ 07:[address] Burak Milner MD) Debility (Acute) UTI (urinary tract infection) (Acute) Pneumonia (Acute) Hypoxemia (Acute) Generalized weakness (Acute) Hyponatremia (Acute) Fall (Acute) no LOC, lost balance - Physical Exam Vitals/I&O's: Vital Signs Temp Pulse Resp BP Pulse Ox 97.5 F L 95 16 123/60 H 96 11/11/20 06:31 11/11/20 06:31 11/11/20 06:31 11/11/20 06:31 11/11/20 06:31 Oxygen Flow Rate (L/min) 3 Oxygen Delivery Method Nasal Cannula Weight: 73.9 kg Body Mass Index (BMI) 29.7 Intake and Output for Last 24 Hours 11/09/20 11/10/20 11/11/20 23:59 23:59 23:59 Intake Total 50 / 50 Balance 50 / 50 General: Alert, Oriented x3, Cooperative HEENT: Atraumatic, PERRLA, EOMI, Normocephalic Neck: Supple, No JVD, Negative Carotid Bruits Lungs: No rhonchi, No wheeze, Rales - Left base Cardiovascular: Regular rate, Normal S1, Normal S2, No murmurs Abdomen: Bowel Sounds Present, Soft, Non Tender Extremities: No edema, Capillary Refill Less than 3 Seconds Skin: No rashes, No breakdown Musculoskeletal: No Tenderness to Palpation of Joints or Extremities Neurological: Cranial nerves II-XII grossly intact Psych/Mental Status: Normal Affect, Appropriate Laboratory Results 11/11/20 04:20: Urine Color Yellow, Urine Clarity Cloudy, Urine pH 5.0, Ur Specific [place] 1.015, Urine Protein 30 H, Urine Glucose (UA) Normal, Urine Ketones 5 H, Urine Occult Blood 50 H, Urine Nitrite Negative, Urine Bilirubin Negative, Urine Urobilinogen Normal, Ur Leukocyte Esterase 100 H, Urine RBC 5-10 SEEN, Urine WBC 10-25 SEEN, Ur Squamous Epith Cells 0 SEEN, Amorphous Sediment 1+, Urine Bacteria 0 SEEN, Urine Mucus 0 SEEN 11/11/20 04:55: COVID-19 (MELANIE) Pending 11/11/20 05:05: WBC 6.7, RBC 3.18 L, Hgb 9.7 L, Hct 30.9 L, MCV 97.2, MCH 30.5, MCHC 31.4 L, RDW Std Deviation 47.4 H, RDW Coeff of Laury 13.2, Plt Count 166, MPV 9.5, Immature Gran % (Auto) 0.400, Neut % (Auto) 89.5 H, Lymph % (Auto) 2.4 L, [place] % (Auto) 3.1, Eos % (Auto) 4.5, Baso % (Auto) 0.1, Absolute Neuts (auto) 6.0, Absolute Lymphs (auto) 0.16 L, Nucleated RBC % 0 11/11/20 05:05: PT 14.9, INR 1.2, APTT 36.4 H 11/11/20 05:05: Sodium 131 L, Potassium 4.0, Chloride 98, Carbon Dioxide 26.0, Anion Gap 7, BUN 29 H, Creatinine 1.18 H, Estim Creat Clear Calc 28.57, Est GFR (MDRD) Af Amer 56 L, Est GFR (MDRD) Non-Af 46 L, BUN/Creatinine Ratio 24.6 H, Glucose 111 H, Calcium 8.6, Total Bilirubin 0.80, AST 51 H, ALT 68 H, Alkaline Phosphatase 75, Troponin I < 0.015, Total Protein 6.1 L, Albumin 2.9 L, Globulin 3.2, Albumin/Globulin Ratio 0.9 11/11/20 05:05: Lactic Acid 1.5 Current Medications Sodium Chloride () 1,000 mls @ 150 mls/hr IV .Q6H40M FRED Last Admin: 11/11/20 05:24 Dose: 150 mls/hr Documented by: Assessment/Plan All Active Problems (Last Reviewed 11/11/20 @ 07:[address] Burak Milner MD) Debility (Acute) UTI (urinary tract infection) (Acute) Pneumonia (Acute) Hypoxemia (Acute) Generalized weakness (Acute) Hyponatremia (Acute) Fall (Acute) Closed right hip fracture (Resolved) The patient is a 84 year old F with a significant history of chronic back pain; and recurrent UTI who presents emergency department with a 2-week history of progressively worsening weakness; shortness of breath; occasional productive cough; who is on home Macrodantin for UTI and recently on Keflex; was found to have chest x-ray findings of infiltrate and pleural effusion as well as abnormal urinalysis. Acute hypoxemic respiratory insufficiency secondary to community-acquired pneumonia slight initial oxygen saturation was 88% on room air and patient required supplemental oxygen at emergency department. Oxygen by nasal: The as needed continued. Lactic acid: 1.5 Blood culture ?2 is ordered at emergency department; follow Impression of chest x-ray by radiologist: New finding of a small left pleural effusion with overlying atelectasis and/or infiltration in the left lower lobe. Chronic interstitial lung disease. Borderline heart disease. Actual [place] chest x-ray image and previous chest x-ray image was independently interpreted. I agree with radiologist interpretation. Chest x-ray image of chest x-ray: IV hydration: Normal saline hydration was started at the emergency department. Albuterol as needed Legionella antigen screen and Strep antigen ordered Rapid antigen test on 11/09/2020 was negative. PCR ordered at the emergency department. If PCR is negative admit to regular medical surgical unit. If PCR is positive it is deemed enhanced droplet precautions and admit to [facility] Covid cohort unit. Of note chest x-ray is not classic for Covid. Acute on chronic cystitis Emergent department labs reviewed showed abnormal urinalysis even with suppressive therapy and recent cooperative treatment therapy for UTI. Urine culture ordered emergency. Also urine culture on 11/09/2020 is pending. Patient is a history of Enterococcus faecalis on culture obtained on 07/30/2020. Also with a history of yeastlike organism on urine culture obtained on 08/16/2020. Enterococcus on urine culture on 07/30/2020 was sensitive to penicillin which makes it to presented to cephalosporins. Weakness/fall/debility PT and OT to work with patient for balance training and strengthening. Case management consult for disposition. Hyponatremia Sodium of 131 Likely secondary pulmonary infection Treatment of infection as above. Received normal saline at emergency department. Hold Lasix for now. Trend BMP. Chronic pain Continue home gabapentin and home Ultram. Patient reported occasionally as she drinks wine to bump her pain. She drinks about 4 ounces of wine about 2-3 times a day occasional excessive if patient is to minimize him. CKD stage III Creatinine is slightly elevated but still within baseline. Received normal saline hydration in the emergency department. Will hold off Lasix at this time. Trend BMP. DVT prophylaxis Subcutaneous Lovenox. Inpatient E&M: [id number] Init Hosp L3
--- NOTE | 2020-11-11 06:39 | NURSING ---
110 dr viera pneumonia, hypoxemia, debility
--- NOTE | 2020-11-11 06:40 | ED.RN ---
ATTEMPTED TO CALL SPOUSE WITH UPDATE, NO ANSWER ON CELL PHONE.
--- NOTE | 2020-11-11 06:42 | ED.RN ---
updated on patients admission
[2020-11-11] MEDS: traMADol 50 MG Tablet PO (06:55)
[2020-11-11] MEDS: Gabapentin 300 MG Capsule PO ×4 (06:55→17:19)
[2020-11-11 08:48] LABS: BNP,B-Type NATRIURETIC PEPTIDE 78.8 pg/mL (0-100)
[2020-11-11] MEDS: Ascorbic Acid 500 MG Tablet 1000 MG PO (10:27)
[2020-11-11] MEDS: Pantoprazole Sodium 20 MG Tablet PO ×2 (10:27→21:52)
[2020-11-11] MEDS: amLODIPine 10 MG Tablet PO (10:27)
[2020-11-11] MEDS: Azelastine HCl NASAL.SRY 2 SPRAY NASAL (10:29)
[2020-11-11] MEDS: Enoxaparin 40 MG/0.4 ML Syringe SC (10:29)
--- NOTE | 2020-11-11 11:45 | CASEMGMT ---
JAYDEN MENDOZA assessment: Face to Face with patient for initial transition planning/care coordination assessment. JAYDEN MENDOZA introduced self and role at [facility], pt voices understanding and consents to assessment at this time. Pt is sitting up in bed in no distress at this time. Pt is 2L nc at this time and respirations are easy/non-labored at this time. Pt is A/Ox4 at this time and answers all questions appropriately at this time. Care providers, pharmacy, and demographics verified at this time. Presentation: Pt c/o weakness, seen 11/09/20 for same Admitting dx: Community acquired pneumonia PCP: Nicci Specialists: None currently [facility]erred [facility]acy: [facility] Insurance: [employer] Prescription Benefit: MMOMCR Living Will/HPOA: Pt states has LW/HPOA and is aware that they are on file at [facility] at this time. Pt states her , Richard Rosales, is HPOA. LNOK: Richard Rosales, Living Arrangements: Pt states lives with in 1 story condo with no steps in and states no concerns at home at this time. Pt states is independent with ADL's. Transportation: Pt states drives and states no transportation concerns at this time. DME/HHC: Pt states has the following DME: walker, grab bars 'everywhere', and shower chair. Pt states no need for any further DME at this time. Pt states has had HHC in the past and has been to [facility] in the past. Pt states no concerns with going home at time of discharge. Pt states is retired. Pt states does not smoke or drink ETOH. Pt states no further concerns/needs at this time. CM to follow for home oxygen testing, PT/OT notes, and any further discharge planning/needs. Advised pt to ask for CM if any further questions/concerns/needs arise, voices understanding. Pt Goal: Home Plan: Home, pending PT/OT cynthia, home oxygen testing. [place] JAYDEN MENDOZA
--- NOTE | 2020-11-11 12:40 | PN_ITS ---
Patient Problems: Active and Suspected Problems (Last Reviewed 11/11/20 @ 07:[address] Burak Milner MD) Debility (Acute) UTI (urinary tract infection) (Acute) Pneumonia (Acute) Hypoxemia (Acute) Generalized weakness (Acute) Dehydration (Acute) Hyponatremia (Acute) Fall (Acute) no LOC, lost balance Subjective: Breathing well with oxygen. Vitals/I&O's: Vital Signs Temp Pulse Resp BP Pulse Ox 36.7 C 86 18 121/59 H 97 11/11/20 11:50 11/11/20 11:50 11/11/20 11:50 11/11/20 11:50 11/11/20 11:50 Oxygen Flow Rate (L/min) 3 Oxygen Delivery Method Nasal Cannula Weight: 72.6 kg Body Mass Index (BMI) 29.4 Intake and Output for Last 24 Hours 11/09/20 11/10/20 11/11/20 23:59 23:59 23:59 Intake Total 1057.5 / 1057.5 Balance 1057.5 / 1057.5 General: Alert, No apparent distress HEENT: Atraumatic, Normocephalic Oral: Moist Mucosa, No Gingival or Mucosal Lesions/ Ulcerations Neck: No Nodes, Thyroid Normal Size and Texture Lungs: Clear to auscultation, Normal air movement, No rhonchi, No wheeze, No rales Cardiovascular: Regular rate, Regular Rhythm, Normal S1, Normal S2, No murmurs Abdomen: Bowel Sounds Present, Soft, Non Tender, Non-Distended, No Hepato- splenomegaly Extremities: No edema, No Calf Tenderness Psych/Mental Status: Normal Affect, Appropriate Microbiology Past 72 Hours 11/11/20 04:20 Urine, Clean Catch Legionella Antigen - Final 11/11/20 04:20 Urine, Clean Catch Streptococcus pneumoniae Antigen (M - Final Laboratory Results 11/11/20 04:20: Urine Color Yellow, Urine Clarity Cloudy, Urine pH 5.0, Ur Specific [place] 1.015, Urine Protein 30 H, Urine Glucose (UA) Normal, Urine Ketones 5 H, Urine Occult Blood 50 H, Urine Nitrite Negative, Urine Bilirubin Negative, Urine Urobilinogen Normal, Ur Leukocyte Esterase 100 H, Urine RBC 5-10 SEEN, Urine WBC 10-25 SEEN, Ur Squamous Epith Cells 0 SEEN, Amorphous Sediment 1+, Urine Bacteria 0 SEEN, Urine Mucus 0 SEEN 11/11/20 04:55: COVID-19 (MELANIE) Not Detected 11/11/20 05:05: WBC 6.7, RBC 3.18 L, Hgb 9.7 L, Hct 30.9 L, MCV 97.2, MCH 30.5, MCHC 31.4 L, RDW Std Deviation 47.4 H, RDW Coeff of Laury 13.2, Plt Count 166, MPV 9.5, Immature Gran % (Auto) 0.400, Neut % (Auto) 89.5 H, Lymph % (Auto) 2.4 L, [place] % (Auto) 3.1, Eos % (Auto) 4.5, Baso % (Auto) 0.1, Absolute Neuts (auto) 6.0, Absolute Lymphs (auto) 0.16 L, Nucleated RBC % 0 11/11/20 05:05: PT 14.9, INR 1.2, APTT 36.4 H 11/11/20 05:05: Sodium 131 L, Potassium 4.0, Chloride 98, Carbon Dioxide 26.0, Anion Gap 7, BUN 29 H, Creatinine 1.18 H, Estim Creat Clear Calc 28.57, Est GFR (MDRD) Af Amer 56 L, Est GFR (MDRD) Non-Af 46 L, BUN/Creatinine Ratio 24.6 H, Glucose 111 H, Calcium 8.6, Total Bilirubin 0.80, AST 51 H, ALT 68 H, Alkaline Phosphatase 75, Troponin I < 0.015, Total Protein 6.1 L, Albumin 2.9 L, Globulin 3.2, Albumin/Globulin Ratio 0.9 11/11/20 05:05: Lactic Acid 1.5 11/11/20 05:05: B-Natriuretic Peptide 78.8 Current Medications Acetaminophen (Acetaminophen 500 Mg Tablet) 500 mg PO Q6H PRN PRN PRN Reason: Pain Score 1-10/Temp > 100.7 F Albuterol Sulfate (Albuterol Sulfate 8 Gm Inhaler (60 Puffs)) 1 puff INHALATION Q4H PRN PRN PRN Reason: Shortness of Breath/Wheezing Amitriptyline HCl (Amitriptyline 25 Mg Tablet) 25 mg PO QHS [facility] Amlodipine Besylate (Amlodipine 10 Mg Tablet) 10 mg PO DAILY [facility] Last Admin: 11/11/20 10:27 Dose: 10 mg Documented by: Ascorbic Acid (Ascorbic Acid 500 Mg Tablet) 1,000 mg PO DAILY [facility] Last Admin: 11/11/20 10:27 Dose: 1,000 mg Documented by: Azelastine HCl (Azelastine Hcl Nasal.Sry) 2 spray NASAL DAILY [facility] Last Admin: 11/11/20 10:29 Dose: 2 spray Documented by: Cholecalciferol (Cholecalciferol (Vit D3) 1,000 Unit (25mcg)) 5,000 unit PO DAILY [facility] Last Admin: 11/11/20 10:26 Dose: 5,000 unit Documented by: Enoxaparin Sodium (Enoxaparin 40 Mg/0.4 Ml Syringe) 40 mg SC DAILY [facility] Last Admin: 11/11/20 10:29 Dose: 40 mg Documented by: Fluticasone Propionate (Fluticasone 0.05% 1 [place] Nasal.Sry) 2 spray NASAL QHS [facility] Gabapentin (Gabapentin 300 Mg Capsule) 300 mg PO TIDPC [facility] Last Admin: 11/11/20 10:26 Dose: 300 mg Documented by: Guaifenesin (Guaifenesin 10 Ml Udc (200mg/10ml)) 20 ml PO Q4H PRN PRN PRN Reason: COUGH Guaifenesin (Guaifenesin 600 Mg Tablet) 600 mg PO DAILY PRN PRN PRN Reason: CONGESTION Azithromycin 500 mg/ Dextrose 255 mls @ 250 mls/hr IV Q24@0500 [facility] Stop: 11/17/20 06:01 Ceftriaxone Sodium 1 gm/ (Sodium Chloride) 50 mls @ 100 mls/hr IV Q24@2100 [facility] Stop: 11/17/20 21:29 Levothyroxine Sodium (Levothyroxine 25 Mcg Tablet) 25 mcg PO DAILY [facility] Last Admin: 11/11/20 10:28 Dose: Not Given Documented by: Melatonin (Melatonin 3 Mg Tablet) 3 mg PO QHS PRN PRN PRN Reason: INSOMNIA Miscellaneous Information (Inhaler, Assist Devices 1 Each Spacer) 1 each INHALATION Q4H PRN PRN PRN Reason: Albuterol Inhaler Ondansetron HCl (Ondansetron 4 Mg/2 Ml Vial) 4 mg IV Q8H PRN PRN PRN Reason: NAUSEA/VOMITING Pantoprazole Sodium (Pantoprazole Sodium 20 Mg Tablet) 20 mg PO BID [facility] Last Admin: 11/11/20 10:27 Dose: 20 mg Documented by: Pseudoephedrine HCl (Pseudoephedrine 60 Mg Tablet) 60 mg PO DAILY PRN PRN PRN Reason: CONGESTION Sodium Chloride (0.9% Saline Lock 10 Ml Syringe) 10 - 40 ml IV UD PRN PRN Reason: SALINE FLUSH Tramadol HCl (Tramadol 50 Mg Tablet) 50 mg PO Q8H PRN PRN PRN Reason: Pain 1-10 Trazodone HCl (Trazodone 50 Mg Tablet) 50 mg PO QHS [facility] STROKE Vital Signs/Narrative: Vital Signs Temp Pulse Resp BP Pulse Ox 11/11/20 11:50 36.7 C 86 18 121/59 H 97 Medical Necessity - Tobacco Use Smoking Status: Never smoker Assessment/Plan All Active Problems (Last Reviewed 11/11/20 @ 07:[address] Burak Milner MD) Debility (Acute) UTI (urinary tract infection) (Acute) Pneumonia (Acute) Hypoxemia (Acute) Generalized weakness (Acute) Dehydration (Acute) Hyponatremia (Acute) Fall (Acute) Closed right hip fracture (Resolved) 1. acute hypoxic respiratory insufficiency: * sats 88% on RA on admission. improved with oxygen bw 2-3 * quetionable pneumonia, though i do not appreciate on CXR * continue abx for now, consider DC abx if infection w/u negative. So far legionella and strep negative. Additionally, pt w/o current fever and leukocytosis. * check resp panel * BNP WNL, so unlikely CHF 2. Acute cystitis * ruled out * UA unremarkable * no additional work up unless new sx arise 3. debility * PT OT eval and treat 4. VTE prophylaxis: LMWH. Procedures: Other Procedure - See Report - non billable rounding as pt admitted after mdnt.
[2020-11-11] MEDS: Amitriptyline 25 MG Tablet PO (21:52)
[2020-11-11] MEDS: traZODone 50 MG Tablet PO (21:52)
[2020-11-11] MEDS: Fluticasone 0.05% 1 SPRAY NASAL.SRY 2 SPRAY NASAL (21:52)
[2020-11-11] MEDS: 0.9% Saline Lock 10 ML Syringe IV (21:53)
--- NOTE | 2020-11-11 22:59 | PCS.PANDOC ---
PANDEMIC DOCUMENTATION INITIATED: Date: 11/11/2020 Time: 0800
[2020-11-12 03:50] VITALS: BP 111/59; PULSE 87; RESP 20; TEMP 36.6; O2SAT 97
[2020-11-12] MEDS: 0.9% Saline Lock 10 ML Syringe IV (04:36)
[2020-11-12 05:14] LABS: Absolute Lymphocyte Count 0.34 X10^3/uL (0.83-4.51); Absolute Neutrophil Count 2.6 X10^3/uL (2.0-7.7); Basophil# 0.01 X10^3/uL; Basophil% 0.3 % (0-1); Eosinophil# 0.35 X10^3/uL; Eosinophils% 9.7 % (0-5); Hematocrit 30.2 % (37-47); Hemoglobin 9.4 g/dL (12.0-15.0); Lymphocyte # 0.34 X10^3/ul (4.0); Lymphocyte % 9.4 % (19-41); Mean Corp Hgb Conc 31.1 g/dL (32-36); Mean Corpuscular Hgb 29.9 pg (27.0-32.0); Mean Corpuscular Volume 96.2 fL (81-99); Mean Platelet Vol. 9.4 fl (6.2-12.0); Monocyte% 8.3 % (0-10); NRBC Flagged by Analyzer 0 % (0-5); POSITIVE DIFFERENTIAL YES; Platelet Count 191 K/mm3 (150-450); RBC Distribution Width CV 13.1 % (11.6-14.6); RBC Distribution Width SD 46.9 fl (35.1-43.9); Red Blood Count 3.14 M/mm3 (4.2-5.4); White Blood Count 3.6 K/mm3 (4.4-11.0)
[2020-11-12 05:17] LABS: Differential Indicated SCAN CRITERIA MET
[2020-11-12 05:36] LABS: Anion Gap 6 (5-15); BUN 20 mg/dL (7-18); BUN/Creat Ratio 26.5 RATIO (10-20); Calcium,Total 8.3 mg/dL (8.5-10.1); Chloride 104 mmol/L (98-107); Creatinine, Serum 0.76 mg/dL (0.55-1.02); EST Glomerular Filtration Rate 78 mL/min (>60); Est Glom Filt Rate - Afr Amer 94 mL/min (>60); Estimated Creatinine Clearance 32.17 ml/min; Glucose 115 mg/dL (74-106); Potassium 3.4 mmol/L (3.5-5.1); Sodium Level 136 mmol/L (136-145)
[2020-11-12 05:39] LABS: Differential Comment SCANNED
[2020-11-12 07:18] VITALS: O2SAT 95
[2020-11-12 08:40] LABS: D-Dimer Quantitative (DVT/PE) 2.39 FEU/ug/m (0.27-0.49)
--- NOTE | 2020-11-12 08:45 | CT_ITS ---
STUDY: CTA CHEST REASON FOR EXAM: Female, 84 years old. DYSPNEA/?PNEUMONIA RADIATION DOSAGE (If Supplied By Facility): CTDIvol = ( 12.69 ) mGy, DLP = ( 307.47 ) mGycm TECHNIQUE: The examination was performed with the intravenous administration of IV 100mL Isovue-370. Post-processing of the angiographic images was performed, with multiplanar reformation and 3D reconstruction. Individualized dose optimization techniques were used for this CT. COMPARISON: None. FINDINGS: Normal enhancement of the main pulmonary artery and right and left pulmonary arteries. Normal enhancement of the bilateral peripheral pulmonary arteries. There is no demonstrated pulmonary embolism. There is atherosclerotic calcification of the aortic arch with tortuosity. There is no demonstrated aortic dissection. There are calcifications of the coronary arteries. Normal mediastinum. There are calcified right hilar lymph nodes. Normal visualized trachea and bronchi. The lungs are well expanded. Small bilateral pleural effusions with bibasilar atelectasis and/or infiltration. This is superimposed on mild degree of bibasilar scarring. Normal pleura. Normal chest wall structures. There are degenerative changes of thoracic spine. Status post bilateral shoulder replacement. Normal visualized upper abdomen. CT/CTA Chest W/WO Contrast IMPRESSION: No evidence of pulmonary embolism. Small bilateral pleural effusions with bibasilar atelectasis and/or infiltration slightly worse on the left side superimposed on chronic scarring. Electronically Signed: Darron Rojas MD at 10:28 EST , Service support ,
[2020-11-12 09:50] VITALS: BP 110/54; PULSE 95; RESP 18; TEMP 36.7; O2SAT 96
[2020-11-12] MEDS: Pantoprazole Sodium 20 MG Tablet PO (10:51)
[2020-11-12] MEDS: Ascorbic Acid 500 MG Tablet 1000 MG PO (10:52)
[2020-11-12] MEDS: Gabapentin 300 MG Capsule PO ×2 (10:52→12:26)
[2020-11-12] MEDS: amLODIPine 10 MG Tablet PO (10:52)
[2020-11-12] MEDS: Azelastine HCl NASAL.SRY 2 SPRAY NASAL (10:53)
[2020-11-12] MEDS: Levothyroxine 25 MCG TABLET PO (10:53)
[2020-11-12] MEDS: Enoxaparin 40 MG/0.4 ML Syringe SC (10:56)
[2020-11-12 13:19] LABS: Pathologist Review Reviewed
--- NOTE | 2020-11-12 13:36 | PCM.DC ---
- Discharge Diagnoses Current Active Problems: Current Active and Chronic Problems (Last Reviewed 11/11/20 @ 07:[address] 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) Peptic ulcer disease (Chronic) Osteoarthritis of right hip (Chronic) Low back pain (Chronic) Allergic rhinitis (Chronic) Osteoporosis (Chronic) Asthma (Chronic) Insomnia (Chronic) Recurrent UTI (Chronic) Constipation (Chronic) Overactive bladder (Chronic) Hyponatremia (Acute) Fall (Acute) no LOC, lost balance History of peptic ulcer disease (Chronic) Hypothyroidism (Chronic) Hypertension (Chronic) You will use the following diet at home:: No restrictions Discharge Activity: Return to Normal Activity Call your doctor if you observe: Fever of 101 or Higher, Shortness of breath Allergies/Adverse Reactions: Allergies gluten Allergy (Verified 08/16/20 15:13) Food Allergy grass pollen-perennial rye, standar [grass poll-perennial rye,std] Allergy (Verified 08/16/20 10:47) sinus pressure lactose Adverse Reaction (Verified 08/16/20 10:47) Food Allergy DUST Allergy (Uncoded 08/16/20 10:47) sinus pressure MOLD Allergy (Uncoded 08/16/20 10:47) SINUS PRESSURE Medications to take at Discharge Amitriptyline HCl 25 mg PO QHS 08/16/20 Amlodipine [Norvasc] 10 mg PO DAILY 08/16/20 Azelastine HCl [Astelin] 2 spray NASAL DAILY 08/16/20 Bismuth Subsalicylate [Pepto-Bismol] 30 ml PO PRN PRN 08/16/20 Cetirizine HCl [Zyrtec] 10 mg PO DAILY PRN 08/16/20 Fluticasone 0.05% [Flonase Nasal [place]] 2 spray NASAL QHS 08/16/20 Gabapentin [Neurontin] 300 mg PO TID 08/16/20 Guaifenesin/Pseudoephedrne HCl [Mucinex D ER 600-60 mg Tablet] 1 ea PO DAILY PRN 08/16/20 Levothyroxine [Synthroid] 25 mcg PO DAILY 08/16/20 Pantoprazole Sodium [Protonix] 20 mg PO BID 08/16/20 traZODone [Desyrel] 50 mg PO QHS 08/16/20 Acetaminophen [Tylenol Tablet] 500 mg PO Q6H PRN PRN 11/09/20 Ascorbic Acid [Vitamin C] 1,000 mg PO DAILY 11/09/20 Cholecalciferol (Vitamin D3) [Vitamin D3] 5,000 unit PO DAILY 11/09/20 Furosemide [Lasix] 10 mg PO DAILY 11/09/20 Ondansetron [Zofran Odt] 4 mg PO Q8H PRN PRN #10 tab 11/09/20 traMADol [Ultram] 50 mg PO Q8H PRN PRN 11/09/20 Albuterol Inhaler [Ventolin Hfa] 2 puff INHALATION Q4H PRN PRN #1 inhaler 11/12/20 Amoxicillin/Potassium Clav [Augmentin 875-125 Tablet] 1 ea PO BID #10 tab 11/12/20 The following prescriptions were given: Amoxicillin/Potassium Clav [Augmentin 875-125 Tablet] 1 ea PO BID #10 tab Transmission Status: Pending to [facility] Albuterol Inhaler [Ventolin Hfa] 2 puff INHALATION Q4H PRN PRN #1 inhaler PRN Reason: Shortness Of Breath Transmission Status: Pending to [facility] Primary Care Physician: Roma Grajeda DO [Primary Care Provider] - Within 1 Week Test Results: Test results from this visit will be discussed in further detail at your follow-up appointment, if applicable. Proposed Discharge Date: 11/12/20
--- NOTE | 2020-11-12 13:37 | DS.PCM_ITS ---
Discharge Date and Diagnosis - Problem List Patient Problems: Active and Suspected Problems (Last Reviewed 11/11/20 @ 07:[address] Burak Milner MD) Debility (Acute) UTI (urinary tract infection) (Acute) Pneumonia (Acute) Hypoxemia (Acute) Generalized weakness (Acute) Dehydration (Acute) Hyponatremia (Acute) Fall (Acute) no LOC, lost balance Date of Admission: 11/11/20 Date of Discharge: 11/12/20 - Primary Discharge Diagnosis Acute Problems: Active Problems (Last Reviewed 11/11/20 @ 07:[address] Burak Milner MD) Debility (Acute) UTI (urinary tract infection) (Acute) Pneumonia (Acute) Hypoxemia (Acute) Generalized weakness (Acute) Dehydration (Acute) Hyponatremia (Acute) Fall (Acute) no LOC, lost balance - Secondary Discharge Diagnosis Chronic Problems: Chronic Problems (Last Reviewed 11/11/20 @ 07:[address] 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) Peptic ulcer disease (Chronic) Osteoarthritis of right hip (Chronic) Low back pain (Chronic) Allergic rhinitis (Chronic) Osteoporosis (Chronic) Asthma (Chronic) Insomnia (Chronic) Recurrent UTI (Chronic) Constipation (Chronic) Overactive bladder (Chronic) History of peptic ulcer disease (Chronic) Hypothyroidism (Chronic) Hypertension (Chronic) Hospital Course and Treatment Imaging Results: 11/12/20 08:45 CTA Chest W/WO Contrast [CT] Urgent Clinical Impression(s) from Imaging Studies Chest X-Ray 11/11/20 03:48 IMPRESSION: New finding of a small left pleural effusion with overlying atelectasis and/or infiltration in the left lower lobe. Chronic interstitial lung disease. Borderline heart size. Electronically Signed: Robi Jones MD at 4:55 EST , Service support , Chest CTA 11/12/20 08:45 IMPRESSION: No evidence of pulmonary embolism. Small bilateral pleural effusions with bibasilar atelectasis and/or infiltration slightly worse on the left side superimposed on chronic scarring. Electronically Signed: Darron Rojas MD at 10:28 EST , Service support , Operations: None, - - ORIF right hip fracture Procedures: None Summary of Care Provided: The patient is a 84 year old F with weakness. Patient had a 2-week history of progressive weakness. Patient had had 2 falls prior to arrival. Patient was also having shortness of breath and dry cough. Patient did have fever when she initially presented on the second but was sent home. Patient returned again and was concerning for infiltrates patient was started on azithromycin and ceftriaxone. Patient had additional work-up for other respiratory issues, including COVID-19, CHF and all of which were negative. Patient had a CAT scan as D-dimer was elevated. No PE was noted but patient did have some bilateral infiltrates. Regards to this patient's progressive weakness, least this time around, is felt to be related with a pneumococcal pneumonia. Patient will be discharged with amoxicillin/clavulanic acid to complete a 7-day course of antibiotics clinic time that she has been here in the hospital. Will check an amatory pulse ox prior to discharge and if she does require oxygen that will be arranged and further adjustments to this discharge summary will be made. [] Patient Problems: Active and Suspected Problems (Last Reviewed 11/11/20 @ 07:[address] Burak Milner MD) Debility (Acute) UTI (urinary tract infection) (Acute) Pneumonia (Acute) Hypoxemia (Acute) Generalized weakness (Acute) Dehydration (Acute) Hyponatremia (Acute) Fall (Acute) no LOC, lost balance - Physical Exam Vitals/I&O's: Vital Signs Temp Pulse Resp BP Pulse Ox 36.7 C 95 18 110/54 L 96 11/12/20 09:50 11/12/20 09:50 11/12/20 09:50 11/12/20 09:50 11/12/20 09:50 Oxygen Flow Rate (L/min) 2 Oxygen Delivery Method Room Air Weight: 72.6 kg Body Mass Index (BMI) 29.4 Intake and Output for Last 24 Hours 11/10/20 11/11/20 11/12/20 23:59 23:59 23:59 Intake Total 1347.5 / 1467.5 735 / 735 Output Total 1100 / 1100 400 / 400 Balance 247.5 / 367.5 335 / 335 General: Alert, No apparent distress HEENT: Atraumatic, Normocephalic Oral: Moist Mucosa, No Gingival or Mucosal Lesions/ Ulcerations Neck: No Nodes, Thyroid Normal Size and Texture Lungs: Clear to auscultation, Normal air movement, No rhonchi, No wheeze, No rales Cardiovascular: Regular rate, Regular Rhythm, Normal S1, Normal S2, No murmurs Abdomen: Bowel Sounds Present, Soft, Non Tender, Non-Distended, No Hepato- splenomegaly Extremities: No edema, No Calf Tenderness Microbiology Past 72 Hours 11/11/20 04:20 Urine, Catheterized Urine Culture - Preliminary Culture exhibits no growth. 11/11/20 14:30 Mucosa - Nasopharyngeal Respiratory Panel (PCR) - Final 11/11/20 04:20 Urine, Clean Catch Legionella Antigen - Final 11/11/20 04:20 Urine, Clean Catch Streptococcus pneumoniae Antigen (M - Final Laboratory Results 11/12/20 05:00: WBC 3.6 L, RBC 3.14 L, Hgb 9.4 L, Hct 30.2 L, MCV 96.2, MCH 29.9, MCHC 31.1 L, RDW Std Deviation 46.9 H, RDW Coeff of [place]ury 13.1, Plt Count 191, MPV 9.4, Immature Gran % (Auto) 0.300, Neut % (Auto) 72.0 H, Lymph % (Auto) 9.4 L, [place] % (Auto) 8.3, Eos % (Auto) 9.7 H, Baso % (Auto) 0.3, Absolute Neuts (auto) 2.6, Absolute Lymphs (auto) 0.34 L, Nucleated RBC % 0, Differential Comment SCANNED, Diff Path Review Reviewed 11/12/20 05:00: Sodium 136, Potassium 3.4 L, Chloride 104, Carbon Dioxide 26.0, Anion Gap 6, BUN 20 H, Creatinine 0.76, Estim Creat Clear Calc 32.17, Est GFR (MDRD) Af Amer 94, Est GFR (MDRD) Non-Af 78, BUN/Creatinine Ratio 26.5 H, Glucose 115 H, Calcium 8.3 L 11/12/20 08:19: D-Dimer Quant (PE/DVT) 2.39 H* Current Medications Acetaminophen (Acetaminophen 500 Mg Tablet) 500 mg PO Q6H PRN PRN PRN Reason: Pain Score 1-10/Temp > 100.7 F Albuterol Sulfate (Albuterol Sulfate 8 Gm Inhaler (60 Puffs)) 1 puff INHALATION Q4H PRN PRN PRN Reason: Shortness of Breath/Wheezing Amitriptyline HCl (Amitriptyline 25 Mg Tablet) 25 mg PO QHS [facility] Last Admin: 11/11/20 21:52 Dose: 25 mg Documented by: Amlodipine Besylate (Amlodipine 10 Mg Tablet) 10 mg PO DAILY [facility] Last Admin: 11/12/20 10:52 Dose: 10 mg Documented by: Ascorbic Acid (Ascorbic Acid 500 Mg Tablet) 1,000 mg PO DAILY [facility] Last Admin: 11/12/20 10:52 Dose: 1,000 mg Documented by: Azelastine HCl (Azelastine Hcl Nasal.Sry) 2 spray NASAL DAILY [facility] Last Admin: 11/12/20 10:53 Dose: 2 spray Documented by: Cholecalciferol (Cholecalciferol (Vit D3) 1,000 Unit (25mcg)) 5,000 unit PO DAILY [facility] Last Admin: 11/12/20 10:52 Dose: 5,000 unit Documented by: Enoxaparin Sodium (Enoxaparin 40 Mg/0.4 Ml Syringe) 40 mg SC DAILY [facility] Last Admin: 11/12/20 10:56 Dose: 40 mg Documented by: Fluticasone Propionate (Fluticasone 0.05% 1 [place] Nasal.Sry) 2 spray NASAL QHS [facility] Last Admin: 11/11/20 21:52 Dose: 2 spray Documented by: Gabapentin (Gabapentin 300 Mg Capsule) 300 mg PO TIDPC [facility] Last Admin: 11/12/20 12:26 Dose: 300 mg Documented by: Guaifenesin (Guaifenesin 10 Ml Udc (200mg/10ml)) 20 ml PO Q4H PRN PRN PRN Reason: COUGH Guaifenesin (Guaifenesin 600 Mg Tablet) 600 mg PO DAILY PRN PRN PRN Reason: CONGESTION Azithromycin 500 mg/ Dextrose 255 mls @ 250 mls/hr IV Q24@0500 [facility] Stop: 11/17/20 06:01 Last Infusion: 11/12/20 05:50 Dose: Infused Documented by: Ceftriaxone Sodium 1 gm/ (Sodium Chloride) 50 mls @ 100 mls/hr IV Q24@2100 [facility] Stop: 11/17/20 21:29 Last Infusion: 11/11/20 22:39 Dose: Infused Documented by: Levothyroxine Sodium (Levothyroxine 25 Mcg Tablet) 25 mcg PO DAILY [facility] Last Admin: 11/12/20 10:53 Dose: 25 mcg Documented by: Melatonin (Melatonin 3 Mg Tablet) 3 mg PO QHS PRN PRN PRN Reason: INSOMNIA Miscellaneous Information (Inhaler, Assist Devices 1 Each Spacer) 1 each INHALATION Q4H PRN PRN PRN Reason: Albuterol Inhaler Ondansetron HCl (Ondansetron 4 Mg/2 Ml Vial) 4 mg IV Q8H PRN PRN PRN Reason: NAUSEA/VOMITING Pantoprazole Sodium (Pantoprazole Sodium 20 Mg Tablet) 20 mg PO BID [facility] Last Admin: 11/12/20 10:51 Dose: 20 mg Documented by: Pseudoephedrine HCl (Pseudoephedrine 60 Mg Tablet) 60 mg PO DAILY PRN PRN PRN Reason: CONGESTION Sodium Chloride (0.9% Saline Lock 10 Ml Syringe) 10 - 40 ml IV UD PRN PRN Reason: SALINE FLUSH Last Admin: 11/12/20 04:36 Dose: 20 ml Documented by: Tramadol HCl (Tramadol 50 Mg Tablet) 50 mg PO Q8H PRN PRN PRN Reason: Pain 1-10 Trazodone HCl (Trazodone 50 Mg Tablet) 50 mg PO QHS [facility] Last Admin: 11/11/20 21:52 Dose: 50 mg Documented by: Discharge Diet: No Restrictions Discharge Activity: Return to Normal Activity Call your doctor if you observe: Fever of 101 or Higher, Shortness of breath Home Medications: Medications to take at Discharge Amitriptyline HCl 25 mg PO QHS 08/16/20 Amlodipine [Norvasc] 10 mg PO DAILY 08/16/20 Azelastine HCl [Astelin] 2 spray NASAL DAILY 08/16/20 Bismuth Subsalicylate [Pepto-Bismol] 30 ml PO PRN PRN 08/16/20 Cetirizine HCl [Zyrtec] 10 mg PO DAILY PRN 08/16/20 Fluticasone 0.05% [Flonase Nasal [place]] 2 spray NASAL QHS 08/16/20 Gabapentin [Neurontin] 300 mg PO TID 08/16/20 Guaifenesin/Pseudoephedrne HCl [Mucinex D ER 600-60 mg Tablet] 1 ea PO DAILY PRN 08/16/20 Levothyroxine [Synthroid] 25 mcg PO DAILY 08/16/20 Pantoprazole Sodium [Protonix] 20 mg PO BID 08/16/20 traZODone [Desyrel] 50 mg PO QHS 08/16/20 Acetaminophen [Tylenol Tablet] 500 mg PO Q6H PRN PRN 11/09/20 Ascorbic Acid [Vitamin C] 1,000 mg PO DAILY 11/09/20 Cholecalciferol (Vitamin D3) [Vitamin D3] 5,000 unit PO DAILY 11/09/20 Furosemide [Lasix] 10 mg PO DAILY 11/09/20 Ondansetron [Zofran Odt] 4 mg PO Q8H PRN PRN #10 tab 11/09/20 traMADol [Ultram] 50 mg PO Q8H PRN PRN 11/09/20 Albuterol Inhaler [Ventolin Hfa] 2 puff INHALATION Q4H PRN PRN #1 inhaler 11/12/20 Amoxicillin/Potassium Clav [Augmentin 875-125 Tablet] 1 ea PO BID #10 tab 11/12/20 Following Prescriptions Were Given to Patient: Amoxicillin/Potassium Clav [Augmentin 875-125 Tablet] 1 ea PO BID #10 tab Transmission Status: Pending to [facility] Albuterol Inhaler [Ventolin Hfa] 2 puff INHALATION Q4H PRN PRN #1 inhaler PRN Reason: Shortness Of Breath Transmission Status: Pending to [facility] Primary Care Physician: Roma Grajeda DO [Primary Care Provider] - Within 1 Week Disposition: Home Minutes spent on discharge:: 32 Patient Condition:: Good Medical Necessity - Tobacco Use Smoking Status: Never smoker Meaningful Use Info Meaningful Use Diagnoses (Choose all that apply): None applicable Inpatient E&M: [id number] [facility]
--- NOTE | 2020-11-12 13:53 | CASEMGMT ---
Addendum entered by Mar Sommers 11/12/20 14:13: Per Angel Luis CARPENTER, pt does not qualify for home oxygen at this time. Pt voices no further questions/concerns/needs at this time. Kojo CARPENTER CM Addendum entered by Mar Sommers 11/12/20 14:13: Pt is interested in resources for meals at this time and Lauren CARSON aware, voices understanding. Kojo CARPENTER CM Original Note: This RN CM to room to discuss discharge planning at this time. is at bedside at this time. Pt declines any OP or HHC at this time. tries to encourage pt to have HHC come out but pt declines again at this time. Pt is A/Ox4 at this time. Pt is currently on room air at this time and to be tested for home oxygen by Angel Luis. After a list of local, in-network DME companies provided, pt/ state they would like [employer], if pt qualifies for home oxygen. CM to follow. Kojo CARPENTER CM
[2020-11-12 13:56] VITALS: O2SAT 93; O2SAT 95
[2020-11-12 14:00] VITALS: BP 110/54; PULSE 95; RESP 18; TEMP 36.7; O2SAT 96
--- NOTE | 2020-11-12 14:30 | PHA.DC.MC ---
Pharmacy Service has performed discharge medication reconciliation and counseling for this patient. The patient was counseled on the following discharge medications and changes in medications for homegoing were reviewed. 1. AUGMENTIN 2. ALBUTEROL The Reason for Use, instructions for use, and potential side effects were reviewed for all new medications. The patient's questions regarding all of their medications were answered. The patient was able to verbally demonstrate an understanding of their discharge medications. Home Medications Amitriptyline HCl 25 mg PO QHS 08/16/20 Amlodipine [Norvasc] 10 mg PO DAILY 08/16/20 Azelastine HCl [Astelin] 2 spray NASAL DAILY 08/16/20 Bismuth Subsalicylate [Pepto-Bismol] 30 ml PO PRN PRN 08/16/20 Cetirizine HCl [Zyrtec] 10 mg PO DAILY PRN 08/16/20 Fluticasone 0.05% [Flonase Nasal [place]] 2 spray NASAL QHS 08/16/20 Gabapentin [Neurontin] 300 mg PO TID 08/16/20 Guaifenesin/Pseudoephedrne HCl [Mucinex D ER 600-60 mg Tablet] 1 ea PO DAILY PRN 08/16/20 Levothyroxine [Synthroid] 25 mcg PO DAILY 08/16/20 Pantoprazole Sodium [Protonix] 20 mg PO BID 08/16/20 traZODone [Desyrel] 50 mg PO QHS 08/16/20 Acetaminophen [Tylenol Tablet] 500 mg PO Q6H PRN PRN 11/09/20 Ascorbic Acid [Vitamin C] 1,000 mg PO DAILY 11/09/20 Cholecalciferol (Vitamin D3) [Vitamin D3] 5,000 unit PO DAILY 11/09/20 Furosemide [Lasix] 10 mg PO DAILY 11/09/20 Ondansetron [Zofran Odt] 4 mg PO Q8H PRN PRN #10 tab 11/09/20 traMADol [Ultram] 50 mg PO Q8H PRN PRN 11/09/20 Albuterol Inhaler [Ventolin Hfa] 2 puff INHALATION Q4H PRN PRN #1 inhaler 11/12/20 Amoxicillin/Potassium Clav [Augmentin 875-125 Tablet] 1 ea PO BID #10 tab 11/12/20 The patient's discharge medication list was reviewed for discrepancies and discrepancies were resolved.
--- NOTE | 2020-11-15 16:11 | CASEMGMT ---
JAYDEN MENDOZA Discharge F/U Phone Call LACE: 11 Strata: 3 Discharge date: 11/12/20 Call date: 11/15/20 Call time: [id number] Admission dx: CAP Pt states has been doing 'pretty well' since discharge. Pt states she took a nap today and feeling 'pretty good.' Pt states no questions regarding d/c instructions/medications at this time. Pt states plans to f/u with Dr. Grajeda on 11/25/20. Pt states her pulse ox has been good and she has been getting around her home 'well.' Pt states no suggestions for [facility] at this time and voices no further questions/concerns/needs at this time. Pt thanks this JAYDEN MENDOZA for call. Kojo CARPENTER CM
== END 2020-11-12 15:55 | disposition home or self-care (01) | DRG 194 ==
LOC: ED 05:30 → PCU 06:21
PROVIDERS: Admitting Provider Hospitalist; Emergency Provider Emergency Medicine; PCP Family Medicine
DX: J13 Pneumonia due to Streptococcus pneumoniae (principal); E87.1 Hypo-osmolality and hyponatremia; J84.9 Interstitial pulmonary disease, unspecified; R09.02 Hypoxemia; I12.9 Hypertensive chronic kidney disease with stage 1 through stage 4 chronic kidney disease, or unspecified chronic kidney disease; N18.30 Chronic kidney disease, stage 3 unspecified; E86.0 Dehydration; Z20.822 Contact with and (suspected) exposure to COVID-19; E03.9 Hypothyroidism, unspecified; N32.81 Overactive bladder; J45.909 Unspecified asthma, uncomplicated; M16.11 Unilateral primary osteoarthritis, right hip; M54.9 Dorsalgia, unspecified; G89.29 Other chronic pain; R30.0 Dysuria; Z79.890 Hormone replacement therapy; Z79.899 Other long term (current) drug therapy; Z87.440 Personal history of urinary (tract) infections; Z87.11 Personal history of peptic ulcer disease; Z96.641 Presence of right artificial hip joint
CPT/HCPCS: 36415; 71045; 71275; 80048; 80053; 81001; 83605; 83880; 84484; 85025; 85379; 85610; 85730; 87040; 87086; 87426; 87449; 87633; 87635; 93005; 97110; 97162; 97166; 97535; 99285; J7030; P9612; Q9967; A4216; J0696; U0002

== ENCOUNTER 2020-11-22 09:35 | Inpatient (IN) | payer MEDICARE, SELFPAY ==
[2020-11-11 08:17] VITALS: BMI 29.4
[2020-11-22] VITALS (19 sets, daily range): BP systolic 85–155; BP diastolic 41–129; PULSE 60–149; RESP 16–24; TEMP 36.8–37.7; O2SAT 91–98; BMI 33.6; BMI 32.2
--- NOTE | 2020-11-22 09:55 | EKG12_ITS ---
Test Reason : SYNCOPE Blood Pressure : / mmHG Vent. Rate : 084 BPM Atrial Rate : 084 BPM P-R Int : 164 ms QRS Dur : 086 ms QT Int : 384 ms P-R-T Axes : 062 -17 001 degrees QTc Int : 453 ms Normal sinus rhythm Nonspecific T- wave abnormality Confirmed by MEERA LE, NAVEEN ([id number]), brands editor KRISTI RAMOS ([id number]) on 11/25/2020 1:36:12 PM Referred By: AMITA Confirmed By:NAVEEN ESTES MD
--- NOTE | 2020-11-22 09:55 | ED.VIS.GEN ---
History of Present Illness Chief Complaint: Syncope Informant: Patient Narrative: 84-year-old female presenting with generalized weakness. She states he has felt bad since about 830 this morning. She was able to ambulate to the bathroom but then needed her to help her off of the commode. She thought that she was going to faint. Patient states she was recently discharged from the hospital with pneumonia and finished her antibiotics. She is not had fever, cough, shortness of breath, chest pain. Patient states she has been eating and drinking since her discharge. She states she does urinate a lot but denies dysuria. - Past Medical History (1) Hyponatremia Status: Chronic (2) UTI (urinary tract infection) Status: Chronic Past Medical History - Allergies and Home Meds Allergies/Adverse Reactions: Allergies gluten Allergy (Verified 11/22/20 09:40) Food Allergy grass pollen-perennial rye, standar [grass poll-perennial rye,std] Allergy (Verified 11/22/20 09:40) sinus pressure lactose Adverse Reaction (Verified 11/22/20 09:40) Food Allergy DUST Allergy (Uncoded 11/22/20 09:40) sinus pressure MOLD Allergy (Uncoded 11/22/20 09:40) SINUS PRESSURE Prior records reviewed: Yes Past Medical History: - - Reviewed in problem list, hypothyroidism, hypertension, hyponatremia Surgical History: appendectomy, cataract, cholecystectomy, hysterectomy, total hip arthroplasty - Right, 11/07/[address] Huynh., tonsillectomy, - - both shoulders,back knee and shoulders,eye surgeries, right knee surgery, lumbar spine surgery, bunionectomy, Lives: Spouse/ Significant Other Smoking Status: Never smoker - Family History Maternal Family History: Reports: Heart Disease, - Paternal Family History: Reports: Heart Disease, Pulmonary Disease, - Review of Systems General: Reports: Malaise. Denies: Chills, Fever, Sweats Eyes: Denies: Visual changes - bilaterally, Diplopia ENT: Denies: Rhinorrhea, Sore throat Cardiovascular: Denies: Chest pain, Palpitations Respiratory: Denies: Dyspnea, Cough, Dyspnea on exertion Gastrointestinal: Denies: Abdominal pain, Nausea, Vomiting, Diarrhea, Melena, Hematochezia Genitourinary: Reports: Frequency. Denies: Dysuria Musculoskeletal: Denies: Back pain, Extremity Pain Skin: Denies: Rash, Wounds Neurological: Denies: Headache, Parasthesia, Numbness Psych: Denies: Depression, Anxiety Physical Exam Vital Signs/Narrative: Vital Signs Temp Pulse Resp BP Pulse Ox 11/22/20 09:36 98.2 F 88 18 155/129 H 91 Inital Vital Signs reviewed: Yes General: Well nourished, No Acute Distress Head: Normocephalic, Atraumatic Eyes: Perrl, EOMI ENT: Moist mucous membranes, No rhinorrhea Cardiovascular: Regular rate, Regular rhythm Respiratory: No distress, CTA bilaterally Abdomen: Soft, Nontender, Nondistended Extremities: Nontender, No edema Skin: Normal color, No rash. Negative for: Cyanosis, Diaphoresis Neurological: Alert, Oriented x3 Psychological: Normal affect, Normal Mood Diagnostic/Tx/Re-eval Clinical Impression(s) from Imaging Studies Chest X-Ray 11/22/20 10:25 IMPRESSION: Mild degree of increased markings at the lung bases suggesting mild scarring although there has been improvement as compared to prior study. Electronically Signed: Darron Rojas MD at 10:59 EST , Service support , Laboratory Data 11/22/20 11/22/20 11/22/20 10:12 10:12 10:12 WBC 10.8 RBC 3.63 L Hgb 11.1 L Hct 36.4 L MCV 100.3 H MCH 30.6 MCHC 30.5 L RDW Std Deviation 48.9 H RDW Coeff of Laury 13.2 Plt Count 308 MPV 9.0 Immature Gran % (Auto) 0.700 Neut % (Auto) 95.1 H Lymph % (Auto) 2.9 L [place] % (Auto) 0.8 Eos % (Auto) 0.4 Baso % (Auto) 0.1 Absolute Neuts (auto) 10.2 H Absolute Lymphs (auto) 0.31 L Nucleated RBC % 0 Differential Comment COMMENT Sodium 137 Potassium 4.0 Chloride 109 H Carbon Dioxide 18.0 L Anion Gap 10 BUN 20 H Creatinine 1.24 H Estim Creat Clear Calc 40.97 Est GFR (MDRD) Af Amer 53 L Est GFR (MDRD) Non-Af 44 L BUN/Creatinine Ratio 16.1 Glucose 91 Lactic Acid Calcium 8.8 Troponin I < 0.015 TSH 10.80 H Urine Color Urine Clarity Urine pH Ur Specific [place] Urine Protein Urine Glucose (UA) Urine Ketones Urine Occult Blood Urine Nitrite Urine Bilirubin Urine Urobilinogen Ur Leukocyte Esterase Urine RBC Urine WBC Ur Squamous Epith Cells Urine Bacteria Urine Mucus POC Glucose 11/22/20 11/22/20 11/22/20 11:30 12:45 13:02 WBC RBC Hgb Hct MCV MCH MCHC RDW Std Deviation RDW Coeff of Laury Plt Count MPV Immature Gran % (Auto) Neut % (Auto) Lymph % (Auto) [place] % (Auto) Eos % (Auto) Baso % (Auto) Absolute Neuts (auto) Absolute Lymphs (auto) Nucleated RBC % Differential Comment Sodium Potassium Chloride Carbon Dioxide Anion Gap BUN Creatinine Estim Creat Clear Calc Est GFR (MDRD) Af Amer Est GFR (MDRD) Non-Af BUN/Creatinine Ratio Glucose Lactic Acid 2.9 H* Calcium Troponin I TSH Urine Color Yellow Urine Clarity Sl. Cloudy Urine pH 6.0 Ur Specific [place] 1.010 Urine Protein 30 H Urine Glucose (UA) Normal Urine Ketones Negative Urine Occult Blood 10 H Urine Nitrite Negative Urine Bilirubin Negative Urine Urobilinogen Normal Ur Leukocyte Esterase 500 H Urine RBC 0 SEEN Urine WBC 50-100 SEEN Ur Squamous Epith Cells 0 SEEN Urine Bacteria 2+ Urine Mucus 0 SEEN POC Glucose 73 - Rhythm Strip Rhythm Strip: Sinus Rhythm Rate: 84 - EKG Initial EKG Interpretation: Sinus Rhythm, No Acute Injury Pattern - Medical Decision Making 84-year-old female presenting for near syncope and generalized weakness that started about 830 this morning. Patient states she was unable to get off of the commode. Patient did not fall or hit her head. She feels generally weak now and does not think she can ambulate at all. EKG performed on arrival shows a sinus rhythm without signs of ischemic change as interpreted by myself. Chest x-ray the areas of her lungs she was treated for previously. There is some chronic changes on her as well interpreted by myself and radiology does agree. Lab work shows no leukocytosis. Hemoglobin hematocrit are stable. Urinalysis does show infection and I did give her a dose of Rocephin. I went back to reevaluate her and she was now hypotensive and hypoxic. She was placed on oxygen and was pancultured. Lactic acid was 2.9. Patient was given IV fluids and her blood pressure did improve. The feel she is stable for the medical floor at this time. Impression: 1. UTI 2. Sepsis 3. Hypoxia 4. Hypotension resolved ED Disposition - Plan for ED Patient: Disposition: Acute Care Hospital [facility]
--- NOTE | 2020-11-22 10:25 | RAD_ITS ---
STUDY: X-RAY CHEST REASON FOR EXAM: Female, 84 years old. WEAKNESS, SYNCOPE TECHNIQUE: Single AP portable view of the chest. COMPARISON: Comparison is made with prior study dated 11/11/2020. FINDINGS: EKG electrodes are seen. Mild residual increased markings at the lung bases worse on the left side suggestive of scarring. The previously seen bibasilar atelectasis as clear. There is no demonstrated pleural abnormality. There is mild cardiac enlargement. Normal mediastinum and alex. Normal visualized pulmonary arteries. There is atherosclerotic calcification of the aortic arch with tortuosity. Normal visualized thoracic spine. Status post bilateral shoulder replacement. Healed right rib fractures. Status post cholecystectomy. RAD/Chest 1 View (Portable) IMPRESSION: Mild degree of increased markings at the lung bases suggesting mild scarring although there has been improvement as compared to prior study. Electronically Signed: Darron Rojas MD at 10:59 EST , Service support ,
[2020-11-22 10:27] LABS: Absolute Lymphocyte Count 0.31 X10^3/uL (0.83-4.51); Absolute Neutrophil Count 10.2 X10^3/uL (2.0-7.7); Basophil# 0.01 X10^3/uL; Basophil% 0.1 % (0-1); Eosinophil# 0.04 X10^3/uL; Eosinophils% 0.4 % (0-5); Hematocrit 36.4 % (37-47); Hemoglobin 11.1 g/dL (12.0-15.0); Lymphocyte # 0.31 X10^3/ul (4.0); Lymphocyte % 2.9 % (19-41); Mean Corp Hgb Conc 30.5 g/dL (32-36); Mean Corpuscular Hgb 30.6 pg (27.0-32.0); Mean Corpuscular Volume 100.3 fL (81-99); Monocyte# 0.09 X10^3/uL; Monocyte% 0.8 % (0-10); NRBC Flagged by Analyzer 0 % (0-5); Neutrophil # 10.24 X10^3/uL (2.7-7.7); Neutrophil % 95.1 % (47-70); POSITIVE DIFFERENTIAL YES; Platelet Count 308 K/mm3 (150-450); RBC Distribution Width CV 13.2 % (11.6-14.6); RBC Distribution Width SD 48.9 fl (35.1-43.9); Red Blood Count 3.63 M/mm3 (4.2-5.4); White Blood Count 10.8 K/mm3 (4.4-11.0)
[2020-11-22 10:32] LABS: Differential Indicated SCAN CRITERIA MET
[2020-11-22 10:42] LABS: Anion Gap 10 (5-15); BUN 20 mg/dL (7-18); BUN/Creat Ratio 16.1 RATIO (10-20); Calcium,Total 8.8 mg/dL (8.5-10.1); Chloride 109 mmol/L (98-107); Creatinine, Serum 1.24 mg/dL (0.55-1.02); EST Glomerular Filtration Rate 44 mL/min (>60); Est Glom Filt Rate - Afr Amer 53 mL/min (>60); Estimated Creatinine Clearance 40.97 ml/min; Glucose 91 mg/dL (74-106); Sodium Level 137 mmol/L (136-145)
[2020-11-22 11:38] LABS: Mucous, Urine 0 SEEN /hpf (<or=2+); Red Blood Cells-Urine 0 SEEN /hpf (0-5); Squamous Epithelial Cells - UA 0 SEEN /hpf (5-10)
[2020-11-22 11:41] LABS: Color, Urine Yellow (Yellow); Glucose, Dipstick Normal (Normal); Ketone-Dipstick Negative (Negative); Leukocyte Esterase-Dipstick 500 /ul (Negative); Nitrite-Dipstick Negative (Negative); Occult Blood-Urine 10 /ul (Negative); Protein-Dipstick 30 mg/dl (Negative); Urine Bilirubin Dipstick Negative (Negative); Urine Clarity Sl. Cloudy (Clear); Urine Urobilinogen Normal (Normal)
[2020-11-22 11:58] LABS: Bacteria 2+ /hpf (None Seen); White Blood Cells 50-100 SEEN /hpf (0-5)
[2020-11-22 13:10] LABS: Bedside Glucose 73 mg/dL (70-110)
--- NOTE | 2020-11-22 13:23 | HP.PCM_ITS ---
Problem List (1) Peptic ulcer disease Status: Chronic (2) Osteoarthritis of right hip Status: Chronic (3) Osteoporosis Status: Chronic (4) Asthma Status: Chronic (5) Insomnia Status: Chronic (6) Recurrent UTI Status: Chronic (7) Overactive bladder Status: Chronic (8) History of peptic ulcer disease Status: Chronic (9) Hypothyroidism Status: Chronic (10) Hypertension Status: Chronic History of Present Illness Date of Admission: 11/22/20 Chief Complaint: Weakness, near syncope. The patient is a 84 year old F with past medical history as mentioned above presented to the emergency room because of weakness and near syncopal episode. At this time, patient is not aware of what happened and I got the history from her who was at the bedside. According to the patient's , patient was in the bathroom on the toilet, felt weak and she called her who went into the bathroom and he found her on the toilet, was about to pass out and she was very weak and could not get up. Apart from this weakness, patient denied any significant symptoms. She did mention that she was dizzy and lightheaded. She denied chest pain, shortness of breath, palpitation. She denied loss of consciousness. She was discharged from the hospital around 10 days ago after admission for pneumonia and according to the , she completed course of Augmentin. Today, patient denied any fever, denied cough or sputum production. Denied significant shortness of breath. She had a history of hypertension which has been under control with Norvasc and Lasix. She will history of hypothyroidism and she has been on levothyroxine. She will history of asthma which has been under control with Ventolin inhaler, never been on home oxygen. Initially in the emergency department, she was afebrile, heart rate stable, blood pressure was 155/129 and pulse ox was 91% on room air. Shortly after, her blood pressure dropped to 96/56 and remained around 90 systolic, reportedly she was hypoxic in the mid 80s on room air. She remained afebrile, heart rate has been stable. She received bolus of IV fluids and blood pressure slightly improved. Her routine blood work was remarkable for hemoglobin of 11.1 g/dL which is chronic, BUN of 20 and creatinine of 1.24. EKG revealed normal sinus rhythm, normal PA interval, normal QRS, no acute segment changes or cardiac arrhythmias. Troponin was negative. Lactic acid is 2.9, elevated. Urinalysis revealed cloudy urine, 500 leukocyte esterase, there was 50-100 WBCs and 2+ bacteria seen. Chest x-ray showed atelectasis, no obvious infiltrate. COVID-19 antigen is negative. She is being admitted for acute cystitis and dehydration as well as near syncopal episode. Past Medical History Past Medical History (Chronic Problems): Chronic Problems (Last Reviewed 11/11/20 @ 07:[address] 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 Burak Milner MD) Asthma J45.909 Kidney disease N28.9 Osteoporosis M81.0 Thyroid disease E07.9 Hypertension I10 Allergies gluten Allergy (Verified 11/22/20 09:40) Food Allergy grass pollen-perennial rye, standar [grass poll-perennial rye,std] Allergy (Verified 11/22/20 09:40) sinus pressure lactose Adverse Reaction (Verified 11/22/20 09:40) Food Allergy DUST Allergy (Uncoded 11/22/20 09:40) sinus pressure MOLD Allergy (Uncoded 11/22/20 09:40) SINUS PRESSURE Home Medications: Ambulatory Orders Medication Instructions Recorded Amitriptyline HCl 25 mg PO QHS 08/16/20 Amlodipine [Norvasc] 10 mg PO DAILY 08/16/20 Azelastine HCl [Astelin] 2 spray NASAL DAILY 08/16/20 Bismuth Subsalicylate 30 ml PO PRN PRN 08/16/20 [Pepto-Bismol] Cetirizine HCl [Zyrtec] 10 mg PO DAILY PRN 08/16/20 Fluticasone 0.05% [Flonase Nasal 2 spray NASAL QHS 08/16/20 [place]] Gabapentin [Neurontin] 300 mg PO TID 08/16/20 traZODone [Desyrel] 50 mg PO QHS 08/16/20 Ascorbic Acid [Vitamin C] 1,000 mg PO DAILY 11/09/20 Cholecalciferol (Vitamin D3) 5,000 unit PO DAILY 11/09/20 [Vitamin D3] Ondansetron [Zofran Odt] 4 mg PO Q8H PRN PRN #10 tab 11/09/20 traMADol [Ultram] 50 mg PO Q8H PRN PRN 11/09/20 Albuterol Inhaler [Ventolin Hfa] 2 puff INHALATION Q4H PRN PRN #1 11/12/20 inhaler Acetaminophen [Tylenol Extra 500 mg PO Q6H PRN PRN 11/22/20 Strength] Furosemide [Lasix] 40 mg PO DAILY 11/22/20 Levothyroxine Sodium [Synthroid] 50 mcg PO DAILY 11/22/20 Pantoprazole Sodium [Protonix] 40 mg PO BID 11/22/20 Surgical History: appendectomy, cataract, cholecystectomy, hysterectomy, total hip arthroplasty - Right, 11/07/[address] 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 Denies: Chills, Fever Eyes: Denies: Blurred vision, Double vision, Drainage, Redness HEENT: Denies: Difficulty Hearing, Ear Pain, Eye Pain, Nasal Congestion, Sore Throat Cardiovascular: Reports: Light Headedness. Denies: Chest Pain, Chest Pressure, Heaviness, Palpitations, Syncope Respiratory: Denies: Cough, Pleuritic Pain, Shortness of Breath, Sputum pro duction, Wheezing Gastrointestinal: Denies: Abdominal Pain, Constipation, Diarrhea, Nausea, Vomiting Genitourinary: Denies: Dysuria, Frequency, Hematuria Musculoskeletal: Denies: Arm Pain, Back Pain, Foot Pain Skin: Denies: Dryness, Rash Neurological: Denies: Balance problems, Double vision, Change in Speech, Confusion, Headaches, Incoordination, Numbness Psychiatric: Denies: Anxiety, Depression Endocrine: Denies: Change in Body Habitus, Polydipsia, Polyuria VTE Information - Inpt Only VTE Present on Admission: No VTE Mechan Device Prophylaxis: None VTE Pharm Prophylaxis ordered?: Yes - Physical Exam Vitals/I&O's: Vital Signs Temp Pulse Resp BP Pulse Ox 98.2 F 91 16 104/45 L 94 11/22/20 09:36 11/22/20 13:00 11/22/20 13:00 11/22/20 13:00 11/22/20 13:06 Oxygen Delivery Method Room Air Weight: 166 lb 7.184 oz Body Mass Index (BMI) 33.6 Intake and Output for Last 24 Hours 11/20/20 11/21/20 11/22/20 23:59 23:59 23:59 Intake Total 500 / 500 Balance 500 / 500 General: Alert, Oriented x3, Cooperative, - - Sleepy, arousable. HEENT: Atraumatic, PERRLA, EOMI, Normocephalic Oral: No Gingival or Mucosal Lesions/ Ulcerations, Dry Mucosa Neck: Supple, No JVD, Negative Carotid Bruits, Trachea Midline, Thyroid Normal Size and Texture Lungs: Clear to auscultation, No rhonchi, No wheeze, No rales, Diminished Cardiovascular: Regular rate, Regular Rhythm, Normal S1, Normal S2, PMI Normal Abdomen: Bowel Sounds Present, Soft, Non Tender, Non-Distended, No Hepato- splenomegaly Extremities: No clubbing, No cyanosis, Edema - Trace edema. Skin: No rashes, No breakdown Lymphatic: No Cervical, Supraclavicular, or Inguinal Adenopathy Neurological: Cranial nerves II-XII grossly intact, Motor Exam 5/5 strength throughout Psych/Mental Status: Normal Affect, Appropriate, Alert and oriented to time, place, person, mood and affect Laboratory Results 11/22/20 10:12: WBC 10.8, RBC 3.63 L, Hgb 11.1 L, Hct 36.4 L, MCV 100.3 H, MCH 30.6, MCHC 30.5 L, RDW Std Deviation 48.9 H, RDW Coeff of [place] 13.2, Plt Count 308, MPV 9.0, Immature Gran % (Auto) 0.700, Neut % (Auto) 95.1 H, Lymph % (Auto) 2.9 L, [place] % (Auto) 0.8, Eos % (Auto) 0.4, Baso % (Auto) 0.1, Absolute Neuts (auto) 10.2 H, Absolute Lymphs (auto) 0.31 L, Nucleated RBC % 0, Differential Comment COMMENT 11/22/20 10:12: Sodium 137, Potassium 4.0, Chloride 109 H, Carbon Dioxide 18.0 L , Anion Gap 10, BUN 20 H, Creatinine 1.24 H, Estim Creat Clear Calc 40.97, Est GFR (MDRD) Af Amer 53 L, Est GFR (MDRD) Non-Af 44 L, BUN/Creatinine Ratio 16.1, Glucose 91, Calcium 8.8, Troponin I < 0.015 11/22/20 11:30: Urine Color Yellow, Urine Clarity Sl. Cloudy, Urine pH 6.0, Ur Specific [place] 1.010, Urine Protein 30 H, Urine Glucose (UA) Normal, Urine Ketones Negative, Urine Occult Blood 10 H, Urine Nitrite Negative, Urine Bilirubin Negative, Urine Urobilinogen Normal, Ur Leukocyte Esterase 500 H, Urine RBC 0 SEEN, Urine WBC 50-100 SEEN, Ur Squamous Epith Cells 0 SEEN, Urine Bacteria 2+, Urine Mucus 0 SEEN 11/22/20 12:45: Lactic Acid Pending 11/22/20 13:02: POC Glucose 73 Clinical Impression(s) from Imaging Studies Chest X-Ray 11/22/20 10:25 IMPRESSION: Mild degree of increased markings at the lung bases suggesting mild scarring although there has been improvement as compared to prior study. Electronically Signed: Darron Rojas MD at 10:59 EST , Service support , Current Medications Sodium Chloride () 1,000 mls @ 999 mls/hr IV .Q1H1M ONE Stop: 11/22/20 13:36 Ceftriaxone Sodium (Rocephin) 1 gm in 50 mls @ 100 mls/hr IV X1 ONE Stop: 11/22/20 13:33 Assessment/Plan This is an 84 years old female patient presented to the emergency room because of weakness and near syncopal episode, developed hypotension in the ED, found to have acute cystitis and dehydration and she is being admitted for evaluation and treatment. #1 acute cystitis: Urinalysis reviewed as above. She had urine culture that was done on November 11, 2020 that showed no growth. She does have 50-100 WBCs on UA and 2+ bacteria today. Blood pressure improved with IV fluids. Lactic acid is elevated. No evidence of sepsis or severe sepsis upon admission. She is not tachycardic, afebrile, no tachypnea. COVID-19 antigen came back negative. Plan: Admit to [facility] floor, telemetry, IV fluids, blood culture, urine culture start IV Zosyn as she had previous urine culture that was positive for Pseudomonas aeruginosa, Tylenol as needed, repeat CBC and BMP tomorrow morning, PT OT evaluation and treatment. #2 near syncopal episode: Likely due to hypotension and acute cystitis. Currently, blood pressure is borderline, systolic has been around 90-100. EKG reviewed, no acute changes. Troponin was negative. Plan to monitor. #3 recent history of pneumonia: She completed course of Augmentin according to her . Chest x-ray reviewed, no new infiltrate. #4 peptic ulcer disease: Continue PPI. #5 hypertension: Currently, blood pressure is borderline. Plan to hold Norvasc and Lasix. #6 hypothyroidism: Continue levothyroxine, will check TSH. #7 asthma: Pulse ox has been around 90s on room air, reportedly came down to mid 80s in the ED. Chest x-ray reviewed as above. Plan for albuterol as needed. #9 CODE STATUS: DNR CCA, no intubation. Discussed with the patient and her . I explained to the patient and her different types of CODE STATUS including full code, DNR CCA with and without intubation as well as DNR CC. Patient stated that she does not want any aggressive resuscitation, intubation or mechanical ventilation. Patient's was at the bedside and confirmed that patient stated multiple times that she does not want any life- sustaining measures such as CPR or mechanical ventilation. #10 DVT prophylaxis: Subcu Lovenox. This note was generated with [employer] dictation software. It may contain incorrect words, spelling, and punctuation that were not noted in checking the note before signing. Inpatient E&M: 65469 Init Hosp L3 Procedures: 59918 Advncd Care Plan 30 Min
[2020-11-22] MEDS: Ceftriaxone 1 GM/50 ML BAG IV (13:26)
[2020-11-22] MEDS: 0.9% Normal Saline 1,000 ML 999 ML IV (13:27)
[2020-11-22 13:32] LABS: Lactic Acid 2.9 mmol/L (0.4-1.9)
[2020-11-22] MEDS: Lactated Ringers 1,000 ML 75 ML IV (15:45)
[2020-11-22] MEDS: Gabapentin 300 MG Capsule PO ×2 (15:46→21:11)
[2020-11-22] MEDS: 0.9% Saline Lock 10 ML Syringe IV ×2 (16:09→21:08)
[2020-11-22 16:52] LABS: Reflex Lactate? Y
[2020-11-22] MEDS: Acetaminophen 325 MG Tablet 650 MG PO (21:06)
[2020-11-22] MEDS: traZODone 50 MG Tablet PO (21:11)
[2020-11-22] MEDS: Fluticasone 0.05% 1 SPRAY NASAL.SRY 2 SPRAY NASAL (21:11)
[2020-11-22] MEDS: Pantoprazole Sodium 20 MG Tablet PO (21:11)
[2020-11-22] MEDS: Amitriptyline 25 MG Tablet PO (21:11)
--- NOTE | 2020-11-22 22:48 | EKG12_ITS ---
Test Reason : SVT Blood Pressure : / mmHG Vent. Rate : 151 BPM Atrial Rate : 163 BPM P-R Int : 000 ms QRS Dur : 070 ms QT Int : 296 ms P-R-T Axes : 000 -14 154 degrees QTc Int : 469 ms Supraventricular tachycardia Nonspecific ST and T wave abnormality Abnormal ECG Confirmed by MEERA LE, NAVEEN ([id number]), communications editor KRISTI RAMOS ([id number]) on 11/25/2020 1:57:31 PM Referred By: TEJAS Confirmed By:NAVEEN ESTES MD
[2020-11-22] MEDS: Lactated Ringers 500 ML 999 ML IV ×2 (22:55→23:45)
[2020-11-23] VITALS (12 sets, daily range): BP systolic 102–127; BP diastolic 51–59; PULSE 78–97; RESP 17–18; TEMP 36.6–37.2; O2SAT 94–98
[2020-11-23] MEDS: Gabapentin 300 MG Capsule PO ×3 (05:32→22:31)
[2020-11-23] MEDS: Levothyroxine 25 MCG TABLET PO (05:32)
[2020-11-23] MEDS: Lactated Ringers 1,000 ML 75 ML IV ×2 (05:35→19:14)
[2020-11-23 06:40] LABS: Absolute Lymphocyte Count 0.36 X10^3/uL (0.83-4.51); Absolute Neutrophil Count 12.7 X10^3/uL (2.0-7.7); Basophil# 0.07 X10^3/uL; Basophil% 0.5 % (0-1); Eosinophil# 0.46 X10^3/uL; Eosinophils% 3.2 % (0-5); Hematocrit 30.3 % (37-47); Hemoglobin 9.3 g/dL (12.0-15.0); Lymphocyte # 0.36 X10^3/ul (4.0); Lymphocyte % 2.5 % (19-41); Mean Corp Hgb Conc 30.7 g/dL (32-36); Mean Corpuscular Hgb 30.4 pg (27.0-32.0); Mean Platelet Vol. 8.9 fl (6.2-12.0); Monocyte# 0.57 X10^3/uL; NRBC Flagged by Analyzer 0 % (0-5); Neutrophil # 12.67 X10^3/uL (2.7-7.7); Neutrophil % 89.4 % (47-70); POSITIVE DIFFERENTIAL YES; Platelet Count 235 K/mm3 (150-450); RBC Distribution Width CV 13.6 % (11.6-14.6); RBC Distribution Width SD 49.1 fl (35.1-43.9); Red Blood Count 3.06 M/mm3 (4.2-5.4); White Blood Count 14.2 K/mm3 (4.4-11.0)
[2020-11-23 06:45] LABS: Differential Indicated SCAN CRITERIA MET
[2020-11-23 07:06] LABS: Anion Gap 6 (5-15); BUN 20 mg/dL (7-18); BUN/Creat Ratio 15.2 RATIO (10-20); Chloride 111 mmol/L (98-107); Creatinine, Serum 1.32 mg/dL (0.55-1.02); EST Glomerular Filtration Rate 41 mL/min (>60); Est Glom Filt Rate - Afr Amer 49 mL/min (>60); Estimated Creatinine Clearance 36.91 ml/min; Glucose 85 mg/dL (74-106); Potassium 3.9 mmol/L (3.5-5.1); Sodium Level 138 mmol/L (136-145)
[2020-11-23 07:10] LABS: Lactic Acid 1.3 mmol/L (0.4-1.9)
--- NOTE | 2020-11-23 08:48 | PN_ITS ---
Subjective: Chief complaint: Follow-up after admission for acute cystitis, near syncopal episode and history of recent pneumonia. Patient seen and examined. No acute events overnight. Smiling, she is feeling better. She is more awake and alert, responding to questions appropriately. She denied chest pain or shortness of breath. She denied cough or sputum production. She denied abdominal pain, nausea or vomiting. She has been afebrile, blood pressure is in the lower side, heart rate stable. Pulse ox is 97% on room air. - Physical Exam Vitals/I&O's: Vital Signs Temp Pulse Resp BP Pulse Ox 98.2 F 85 18 107/52 L 97 11/23/20 03:56 11/23/20 07:45 11/23/20 03:56 11/23/20 03:56 11/23/20 03:56 Oxygen Delivery Method Room Air Weight: 159 lb 9.835 oz Body Mass Index (BMI) 32.2 Intake and Output for Last 24 Hours 11/21/20 11/22/20 11/23/20 23:59 23:59 23:59 Intake Total 2942.5 / 2942.5 1011.25 / 1011.25 Balance 2942.5 / 2942.5 1011.25 / 1011.25 General: Alert, Oriented x3, Cooperative, No apparent distress HEENT: Atraumatic, PERRLA, EOMI, Normocephalic Oral: Moist Mucosa, No Gingival or Mucosal Lesions/ Ulcerations Neck: Supple, No JVD, Negative Carotid Bruits, Trachea Midline, Thyroid Normal Size and Texture Lungs: Clear to auscultation, No rhonchi, No wheeze, No rales, Diminished Cardiovascular: Regular rate, Regular Rhythm, Normal S1, Normal S2, PMI Normal Abdomen: Bowel Sounds Present, Soft, Non Tender, Non-Distended, No Hepato- splenomegaly Extremities: No clubbing, No cyanosis, Edema Skin: No rashes, No breakdown Lymphatic: No Cervical, Supraclavicular, or Inguinal Adenopathy Neurological: Cranial nerves II-XII grossly intact, Neuro grossly intact Psych/Mental Status: Normal Affect, Appropriate Microbiology Past 72 Hours 11/22/20 13:12 Mucosa - Nose SARS-CoV-2 Antigen (Rapid) - Final Laboratory Results 11/22/20 10:12: WBC 10.8, RBC 3.63 L, Hgb 11.1 L, Hct 36.4 L, MCV 100.3 H, MCH 30.6, MCHC 30.5 L, RDW Std Deviation 48.9 H, RDW Coeff of Laury 13.2, Plt Count 308, MPV 9.0, Immature Gran % (Auto) 0.700, Neut % (Auto) 95.1 H, Lymph % (Auto) 2.9 L, Fisher % (Auto) 0.8, Eos % (Auto) 0.4, Baso % (Auto) 0.1, Absolute Neuts (auto) 10.2 H, Absolute Lymphs (auto) 0.31 L, Nucleated RBC % 0, Differential Comment COMMENT 11/22/20 10:12: Sodium 137, Potassium 4.0, Chloride 109 H, Carbon Dioxide 18.0 L , Anion Gap 10, BUN 20 H, Creatinine 1.24 H, Estim Creat Clear Calc 40.97, Est GFR (MDRD) Af Amer 53 L, Est GFR (MDRD) Non-Af 44 L, BUN/Creatinine Ratio 16.1, Glucose 91, Calcium 8.8, Troponin I < 0.015 11/22/20 10:12: TSH 10.80 H 11/22/20 11:30: Urine Color Yellow, Urine Clarity Sl. Cloudy, Urine pH 6.0, Ur Specific [place] 1.010, Urine Protein 30 H, Urine Glucose (UA) Normal, Urine Ketones Negative, Urine Occult Blood 10 H, Urine Nitrite Negative, Urine Bilirubin Negative, Urine Urobilinogen Normal, Ur Leukocyte Esterase 500 H, Urine RBC 0 SEEN, Urine WBC 50-100 SEEN, Ur Squamous Epith Cells 0 SEEN, Urine Bacteria 2+, Urine Mucus 0 SEEN 11/22/20 12:45: Lactic Acid 2.9 H* 11/22/20 13:02: POC Glucose 73 11/22/20 18:11: Lactic Acid Cancelled 11/23/20 06:32: WBC 14.2 H, RBC 3.06 L, Hgb 9.3 L, Hct 30.3 L, MCV 99.0, MCH 30.4, MCHC 30.7 L, RDW Std Deviation 49.1 H, RDW Coeff of Laury 13.6, Plt Count 235, MPV 8.9, Immature Gran % (Auto) 0.400, Neut % (Auto) 89.4 H, Lymph % (Auto) 2.5 L, Fisher % (Auto) 4.0, Eos % (Auto) 3.2, Baso % (Auto) 0.5, Absolute Neuts (auto) 12.7 H, Absolute Lymphs (auto) 0.36 L, Nucleated RBC % 0 11/23/20 06:32: Sodium 138, Potassium 3.9, Chloride 111 H, Carbon Dioxide 21.0, Anion Gap 6, BUN 20 H, Creatinine 1.32 H, Estim Creat Clear Calc 36.91, Est GFR (MDRD) Af Amer 49 L, Est GFR (MDRD) Non-Af 41 L, BUN/Creatinine Ratio 15.2, Glucose 85, Calcium 8.0 L 11/23/20 06:32: Lactic Acid 1.3 Clinical Impression(s) from Imaging Studies Chest X-Ray 11/22/20 10:25 IMPRESSION: Mild degree of increased markings at the lung bases suggesting mild scarring although there has been improvement as compared to prior study. Electronically Signed: Darron Rojas MD at 10:59 EST , Service support , Current Medications Acetaminophen (Acetaminophen 325 Mg Tablet) 650 mg PO Q6H PRN PRN PRN Reason: Pain Score 1-10/Temp > 100.7 F Last Admin: 11/22/20 21:06 Dose: 650 mg Documented by: Amitriptyline HCl (Amitriptyline 25 Mg Tablet) 25 mg PO QHS [facility] Last Admin: 11/22/20 21:11 Dose: 25 mg Documented by: Azelastine HCl (Azelastine Hcl Nasal.Sry) 2 spray NASAL DAILY [facility] Enoxaparin Sodium (Enoxaparin 30 Mg/0.3 Ml Syringe) 30 mg SC DAILY [facility] Fluticasone Propionate (Fluticasone 0.05% 1 [place] Nasal.Sry) 2 spray NASAL QHS [facility] Last Admin: 11/22/20 21:11 Dose: 2 spray Documented by: Gabapentin (Gabapentin 300 Mg Capsule) 300 mg PO TID [facility] Last Admin: 11/23/20 05:32 Dose: 300 mg Documented by: Lactated Ringer's () 1,000 mls @ 75 mls/hr IV .[id number] [facility] Last Admin: 11/23/20 05:35 Dose: 75 mls/hr Documented by: Piperacillin Sod/Tazobactam (Sod 3.375 gm/ Sodium Chloride) 50 mls @ 12.5 mls/hr IV Q8 [facility] Last Admin: 11/23/20 05:32 Dose: 12.5 mls/hr Documented by: Levothyroxine Sodium (Levothyroxine 50 Mcg Tablet) 37.5 mcg PO DAILY@0600 [facility] Loratadine (Loratadine 10 Mg Tablet) 10 mg PO DAILY PRN PRN PRN Reason: ALLERGIES Ondansetron HCl (Ondansetron 4 Mg/2 Ml Vial) 4 mg IV Q8H PRN PRN PRN Reason: NAUSEA/VOMITING Pantoprazole Sodium (Pantoprazole Sodium 20 Mg Tablet) 20 mg PO BID [facility] Last Admin: 11/22/20 21:11 Dose: 20 mg Documented by: Senna/Docusate Sodium (Senna/Docusate Sodium 1 Tablet) 2 tablet PO BID PRN PRN PRN Reason: Constipation Sodium Chloride (0.9% Saline Lock 10 Ml Syringe) 10 - 40 ml IV UD PRN PRN Reason: SALINE FLUSH Last Admin: 11/22/20 21:08 Dose: 10 ml Documented by: Tramadol HCl (Tramadol 50 Mg Tablet) 50 mg PO Q8H PRN PRN PRN Reason: Pain Score 1-10 Trazodone HCl (Trazodone 50 Mg Tablet) 50 mg PO QHS [facility] Last Admin: 11/22/20 21:11 Dose: 50 mg Documented by: Medical Necessity - Tobacco Use Smoking Status: Never smoker Tobacco Use: Non-smoker Assessment/Plan This is an 84 years old female patient presented to the emergency room because of weakness and near syncopal episode, developed hypotension in the ED, found to have acute cystitis and dehydration and she is being admitted for evaluation and treatment. #1 acute cystitis: She is on IV Zosyn because she had previous urine cultures that was positive for Pseudomonas aeruginosa. Today, she is afebrile, WBC is trending up, blood pressure is borderline and stable. She is not tachycardic. Blood and urine cultures are pending. COVID-19 antigen was negative. Lactic acid is back to normal. There was no evidence of sepsis or severe sepsis at admission. Plan to continue same treatment, repeat CBC and BMP tomorrow morning. #2 near syncopal episode: Likely due to hypotension secondary to infection. Blood pressure improved with IV fluids but remained borderline, no tachycardia. EKG reviewed, no acute changes. Troponin was negative. Plan to monitor. #3 recent history of pneumonia: She completed course of Augmentin according to her . Chest x-ray reviewed, no new infiltrate. She has been on room air, pulse ox is 97%. #4 peptic ulcer disease: Continue PPI. #5 hypertension: Blood pressure is borderline stable. Norvasc and Lasix held. #6 hypothyroidism: TSH was elevated. Plan to increase levothyroxine to 37.5 mcg p.o. daily. Recommend to repeat TSH in 4 weeks as outpatient. #7 asthma: Stable, pulse ox is 97% on room air. She is on albuterol as needed. #9 CODE STATUS: DNR CCA, no intubation. Discussed with the patient and her . #10 DVT prophylaxis: Subcu Lovenox. This note was generated with [employer] dictation software. It may contain incorrect words, spelling, and punctuation that were not noted in checking the note before signing. Inpatient E&M: 86123 Subs Hosp L2
[2020-11-23] MEDS: Enoxaparin 30 MG/0.3 ML Syringe SC (09:56)
[2020-11-23] MEDS: Azelastine HCl NASAL.SRY 2 SPRAY NASAL (09:56)
[2020-11-23] MEDS: Pantoprazole Sodium 20 MG Tablet PO ×2 (09:57→22:31)
--- NOTE | 2020-11-23 10:53 | CASEMGMT ---
Social Work Note Per paper ruler questions, pt has completed HCPOA and LW and provided documents to [facility]. SW reviewed chart, both HCPOA and LW are on file. SW printed off copies and placed on pt's chart. Mar Rothman DETAIL ASSEMBLER, COMPLIANCE FIELD TECHNICIAN
--- NOTE | 2020-11-23 15:13 | CASEMGMT ---
RN CM readmission note: Patient was admitted 11/11-11/12/20 for pneumonia. See RN CM assessment from 11/11/20. Patient was discharged to home declined HHC. Patient did not qualify for home oxygen. Patient states she was able to fill prescriptions and taking medications as prescribed. Patient returned 11/22/20 for weakness and near syncope. Patient is being treated for acute cystitis. Patient is working with therapy and recommending HHC at discharge. RN CM discuss possible HHC at discharge and patient is interested in HHC. Patient to discuss with . CM will continue to follow this patient and plan for a safe discharge. Disposition Plan: Home with HHC.
[2020-11-23] MEDS: 0.9% Saline Lock 10 ML Syringe IV (18:14)
[2020-11-23] MEDS: Fluticasone 0.05% 1 SPRAY NASAL.SRY 2 SPRAY NASAL (22:30)
[2020-11-23] MEDS: Amitriptyline 25 MG Tablet PO (22:30)
[2020-11-23] MEDS: traZODone 50 MG Tablet PO (22:30)
[2020-11-24] VITALS (12 sets, daily range): BP systolic 135–144; BP diastolic 60–69; PULSE 70–89; RESP 16–18; TEMP 36.6–36.9; O2SAT 95–98
[2020-11-24] MEDS: traMADol 50 MG Tablet PO ×3 (00:06→23:52)
[2020-11-24] MEDS: Acetaminophen 325 MG Tablet 650 MG PO ×4 (00:48→21:05)
[2020-11-24] MEDS: Gabapentin 300 MG Capsule PO ×3 (04:26→21:06)
[2020-11-24] MEDS: Levothyroxine 75 MCG Tablet 37.5 MCG PO (04:27)
[2020-11-24 06:50] LABS: Absolute Neutrophil Count 5.1 X10^3/uL (2.0-7.7); Basophil# 0.04 X10^3/uL; Basophil% 0.6 % (0-1); Eosinophil# 0.56 X10^3/uL; Eosinophils% 8.1 % (0-5); Hematocrit 28.8 % (37-47); Hemoglobin 8.8 g/dL (12.0-15.0); Lymphocyte % 10.1 % (19-41); Mean Corp Hgb Conc 30.6 g/dL (32-36); Mean Corpuscular Hgb 30.2 pg (27.0-32.0); Monocyte# 0.57 X10^3/uL; Monocyte% 8.2 % (0-10); NRBC Flagged by Analyzer 0 % (0-5); Neutrophil # 5.06 X10^3/uL (2.7-7.7); Neutrophil % 72.7 % (47-70); Platelet Count 223 K/mm3 (150-450); RBC Distribution Width CV 13.8 % (11.6-14.6); RBC Distribution Width SD 49.4 fl (35.1-43.9); Red Blood Count 2.91 M/mm3 (4.2-5.4)
[2020-11-24 07:16] LABS: Anion Gap 7 (5-15); BUN 14 mg/dL (7-18); BUN/Creat Ratio 16.7 RATIO (10-20); Calcium,Total 8.5 mg/dL (8.5-10.1); Chloride 110 mmol/L (98-107); Creatinine, Serum 0.84 mg/dL (0.55-1.02); EST Glomerular Filtration Rate 69 mL/min (>60); Est Glom Filt Rate - Afr Amer 83 mL/min (>60); Glucose 82 mg/dL (74-106); Potassium 3.6 mmol/L (3.5-5.1); Sodium Level 140 mmol/L (136-145)
--- NOTE | 2020-11-24 08:23 | PN_ITS ---
Subjective: Chief complaint: Follow-up after admission for acute cystitis, near syncopal episode, recent pneumonia and hypothyroidism. Patient seen and examined. No acute events overnight. This morning, she is significantly better, feeling better. No more weakness. Denies dizziness or lightheadedness. Denied cough or sputum production. She is afebrile, vital signs are stable. - Physical Exam Vitals/I&O's: Vital Signs Temp Pulse Resp BP Pulse Ox 98.4 F 72 16 143/66 H 96 11/24/20 06:00 11/24/20 07:47 11/24/20 06:00 11/24/20 06:00 11/24/20 06:00 Oxygen Delivery Method Room Air Weight: 159 lb 9.835 oz Body Mass Index (BMI) 32.2 Intake and Output for Last 24 Hours 11/22/20 11/23/20 11/24/20 23:59 23:59 23:59 Intake Total 2942.5 / 2942.5 2711.25 / 3111.25 750 / 750 Output Total 900 / 900 Balance 2942.5 / 2942.5 2711.25 / 2911.25 -150 / -150 General: Alert, Oriented x3, Cooperative, No apparent distress HEENT: Atraumatic, PERRLA, EOMI, Normocephalic Oral: Moist Mucosa, No Gingival or Mucosal Lesions/ Ulcerations Neck: Supple, No JVD, Negative Carotid Bruits, Trachea Midline, Thyroid Normal Size and Texture Lungs: Clear to auscultation, No rhonchi, No wheeze, No rales, Diminished Cardiovascular: Regular rate, Regular Rhythm, Normal S1, Normal S2, PMI Normal Abdomen: Bowel Sounds Present, Soft, Non Tender, Non-Distended, No Hepato- splenomegaly Extremities: No clubbing, No cyanosis, Edema - Trace edema. Skin: No rashes, No breakdown Lymphatic: No Cervical, Supraclavicular, or Inguinal Adenopathy Neurological: Cranial nerves II-XII grossly intact, Neuro grossly intact Psych/Mental Status: Normal Affect, Appropriate, Alert and oriented to time, place, person, mood and affect Microbiology Past 72 Hours 11/22/20 11:30 Urine, Catheterized Urine Culture - Final Pseudomonas aeroginosa 11/22/20 13:12 Mucosa - Nose SARS-CoV-2 Antigen (Rapid) - Final Laboratory Results 11/24/20 06:44: WBC 7.0, RBC 2.91 L, Hgb 8.8 L, Hct 28.8 L, MCV 99.0, MCH 30.2, MCHC 30.6 L, RDW Std Deviation 49.4 H, RDW Coeff of Laury 13.8, Plt Count 223, MPV 9.0, Immature Gran % (Auto) 0.300, Neut % (Auto) 72.7 H, Lymph % (Auto) 10.1 L, [place] % (Auto) 8.2, Eos % (Auto) 8.1 H, Baso % (Auto) 0.6, Absolute Neuts (auto) 5.1, Absolute Lymphs (auto) 0.70 L, Nucleated RBC % 0 11/24/20 06:44: Sodium 140, Potassium 3.6, Chloride 110 H, Carbon Dioxide 23.0, Anion Gap 7, BUN 14, Creatinine 0.84, Estim Creat Clear Calc 58.00, Est GFR (MDRD) Af Amer 83, Est GFR (MDRD) Non-Af 69, BUN/Creatinine Ratio 16.7, Glucose 82, Calcium 8.5 Current Medications Acetaminophen (Acetaminophen 325 Mg Tablet) 650 mg PO Q6H PRN PRN PRN Reason: Pain Score 1-10/Temp > 100.7 F Last Admin: 11/24/20 08:16 Dose: 650 mg Documented by: Albuterol Sulfate (Albuterol 2.5 Mg/3 Ml Vial.Neb.) 2.5 mg INHALATION Q4H PRN PRN PRN Reason: Shortness of breath, wheezing Amitriptyline HCl (Amitriptyline 25 Mg Tablet) 25 mg PO QHS [facility] Last Admin: 11/23/20 22:30 Dose: 25 mg Documented by: Azelastine HCl (Azelastine Hcl Nasal.Sry) 2 spray NASAL DAILY [facility] Last Admin: 11/23/20 09:56 Dose: 2 spray Documented by: Enoxaparin Sodium (Enoxaparin 30 Mg/0.3 Ml Syringe) 30 mg SC DAILY [facility] Last Admin: 11/23/20 09:56 Dose: 30 mg Documented by: Fluticasone Propionate (Fluticasone 0.05% 1 [place] Nasal.Sry) 2 spray NASAL QHS [facility] Last Admin: 11/23/20 22:30 Dose: 2 spray Documented by: Gabapentin (Gabapentin 300 Mg Capsule) 300 mg PO TID [facility] Last Admin: 11/24/20 04:26 Dose: 300 mg Documented by: Piperacillin Sod/Tazobactam (Sod 3.375 gm/ Sodium Chloride) 50 mls @ 12.5 mls/hr IV Q8 [facility] Last Admin: 11/24/20 04:26 Dose: 12.5 mls/hr Documented by: Loratadine (Loratadine 10 Mg Tablet) 10 mg PO DAILY PRN PRN PRN Reason: ALLERGIES Ondansetron HCl (Ondansetron 4 Mg/2 Ml Vial) 4 mg IV Q8H PRN PRN PRN Reason: NAUSEA/VOMITING Pantoprazole Sodium (Pantoprazole Sodium 20 Mg Tablet) 20 mg PO BID [facility] Last Admin: 11/23/20 22:31 Dose: 20 mg Documented by: Senna/Docusate Sodium (Senna/Docusate Sodium 1 Tablet) 2 tablet PO BID PRN PRN PRN Reason: Constipation Sodium Chloride (0.9% Saline Lock 10 Ml Syringe) 10 - 40 ml IV UD PRN PRN Reason: SALINE FLUSH Last Admin: 11/23/20 18:14 Dose: 10 ml Documented by: Tramadol HCl (Tramadol 50 Mg Tablet) 50 mg PO Q8H PRN PRN PRN Reason: Pain Score 1-10 Last Admin: 11/24/20 00:06 Dose: 50 mg Documented by: Trazodone HCl (Trazodone 50 Mg Tablet) 50 mg PO QHS [facility] Last Admin: 11/23/20 22:30 Dose: 50 mg Documented by: Medical Necessity - Tobacco Use Smoking Status: Never smoker Tobacco Use: Non-smoker Assessment/Plan This is an 84 years old female patient presented to the emergency room because of weakness and near syncopal episode, developed hypotension in the ED, found to have acute cystitis and dehydration and she is being admitted for evaluation and treatment. #1 acute cystitis: Remained on IV Zosyn. She has been afebrile, WBC is back to normal. Vital signs are stable. Urine culture revealed Pseudomonas aeruginosa. Blood cultures pending. COVID-19 antigen was negative. Lactic acid is back to normal. There was no evidence of sepsis or severe sepsis at admission. Plan to continue same treatment, anticipate discharge home tomorrow. #2 near syncopal episode: Likely due to hypotension secondary to infection. Blood pressure improved with IV fluids but remained borderline, no tachycardia. EKG reviewed, no acute changes. Troponin was negative. Vital signs remained stable today. R. #3 recent history of pneumonia: She completed course of Augmentin according to her . Chest x-ray reviewed, no new infiltrate. She has been on room air, pulse ox is 96%. #4 peptic ulcer disease: Continue PPI. #5 hypertension: Blood pressure started to go up. Plan to resume Norvasc at 5 mg p.o. daily, keep holding Lasix for now. #6 hypothyroidism: TSH was elevated. Apparently, patient has been taking 50 mcg daily at home not 25 mcg. Plan to change levothyroxine to 75 mcg daily. #7 asthma: Stable, pulse ox is 97% on room air. She is on albuterol as needed. #9 CODE STATUS: DNR CCA, no intubation. Discussed with the patient and her . #10 DVT prophylaxis: Subcu Lovenox. This note was generated with [employer] dictation software. It may contain incorrect words, spelling, and punctuation that were not noted in checking the note before signing. Inpatient E&M: 51648 Subs Hosp L2
[2020-11-24] MEDS: Azelastine HCl NASAL.SRY 2 SPRAY NASAL (08:48)
[2020-11-24] MEDS: Pantoprazole Sodium 20 MG Tablet PO ×2 (09:44→21:06)
[2020-11-24] MEDS: amLODIPine 5 MG Tablet PO (09:45)
[2020-11-24] MEDS: Enoxaparin 40 MG/0.4 ML Syringe SC (09:46)
--- NOTE | 2020-11-24 15:20 | CASEMGMT ---
RN CM in to discuss HHC with patient and . RN CM explained HHC services. Patient was provided a list of HHC providers including quality and resource use data and consistent with the patient?s preferred geographic region, medical needs, and insurance network. Patient and to review list and provided preferences. CM will continue to follow this patient and plan for a safe discharge.
[2020-11-24] MEDS: traZODone 50 MG Tablet PO (21:05)
[2020-11-24] MEDS: Amitriptyline 25 MG Tablet PO (21:06)
[2020-11-24] MEDS: Fluticasone 0.05% 1 SPRAY NASAL.SRY 2 SPRAY NASAL (21:06)
[2020-11-25 02:50] VITALS: BP 149/86; PULSE 67; RESP 18; TEMP 36.7; O2SAT 95
[2020-11-25 03:28] VITALS: PULSE 66
[2020-11-25] MEDS: Acetaminophen 325 MG Tablet 650 MG PO (05:25)
[2020-11-25] MEDS: Levothyroxine 75 MCG Tablet PO (05:25)
[2020-11-25] MEDS: Gabapentin 300 MG Capsule PO (05:25)
[2020-11-25 06:45] LABS: Hematocrit 29.6 % (37-47); Hemoglobin 9.1 g/dL (12.0-15.0)
[2020-11-25 07:45] VITALS: PULSE 67
[2020-11-25 08:15] VITALS: BP 143/60; PULSE 76; RESP 18; TEMP 36.6; O2SAT 97
--- NOTE | 2020-11-25 09:10 | DCINST_ITS ---
- Discharge Diagnoses Current Active Problems: Current Active and Chronic Problems (Last Reviewed 11/11/20 @ 07:[address] Burak Milner MD) UTI (urinary tract infection) (Chronic) Peptic ulcer disease (Chronic) Osteoarthritis of right hip (Chronic) Osteoporosis (Chronic) Asthma (Chronic) Insomnia (Chronic) Recurrent UTI (Chronic) Overactive bladder (Chronic) Hyponatremia (Chronic) History of peptic ulcer disease (Chronic) Hypothyroidism (Chronic) Hypertension (Chronic) You will use the following diet at home:: Cardiac Your food should be the consistency of: Regular Discharge Activity: Return to Normal Activity Weight Bearing Status: Weight bearing as tolerated Call your doctor if you observe: Fever of 101 or Higher, Shortness of breath, Dizziness, Fainting spells, Chest pain, Increased palpitations (irregular heartbeat), Uncontrolled pain Allergies/Adverse Reactions: Allergies gluten Allergy (Verified 11/22/20 09:40) Food Allergy grass pollen-perennial rye, standar [grass poll-perennial rye,std] Allergy (Verified 11/22/20 09:40) sinus pressure lactose Adverse Reaction (Verified 11/22/20 09:40) Food Allergy DUST Allergy (Uncoded 11/22/20 09:40) sinus pressure MOLD Allergy (Uncoded 11/22/20 09:40) SINUS PRESSURE Medications to take at Discharge Amitriptyline HCl 25 mg PO QHS 08/16/20 Amlodipine [Norvasc] 10 mg PO DAILY 08/16/20 Azelastine HCl [Astelin] 2 spray NASAL DAILY 08/16/20 Bismuth Subsalicylate [Pepto-Bismol] 30 ml PO PRN PRN 08/16/20 Cetirizine HCl [Zyrtec] 10 mg PO DAILY PRN 08/16/20 Fluticasone 0.05% [Flonase Nasal [place]] 2 spray NASAL QHS 08/16/20 Gabapentin [Neurontin] 300 mg PO TID 08/16/20 traZODone [Desyrel] 50 mg PO QHS 08/16/20 Ascorbic Acid [Vitamin C] 1,000 mg PO DAILY 11/09/20 Cholecalciferol (Vitamin D3) [Vitamin D3] 5,000 unit PO DAILY 11/09/20 Ondansetron [Zofran Odt] 4 mg PO Q8H PRN PRN #10 tab 11/09/20 traMADol [Ultram] 50 mg PO Q8H PRN PRN 11/09/20 Albuterol Inhaler [Ventolin Hfa] 2 puff INHALATION Q4H PRN PRN #1 inhaler 11/12/20 Acetaminophen [Tylenol] 500 mg PO Q6H PRN PRN 11/22/20 Furosemide [Lasix] 40 mg PO DAILY 11/22/20 Pantoprazole Sodium [Protonix] 40 mg PO BID 11/22/20 Ciprofloxacin [Cipro] 500 mg PO BID #7 tab 11/25/20 Levothyroxine [Synthroid] 75 mcg PO DAILY@0600 #30 tab 11/25/20 The following prescriptions were given: Ciprofloxacin [Cipro] 500 mg PO BID #7 tab Transmission Status: Pending to [facility] Levothyroxine [Synthroid] 75 mcg PO DAILY@0600 #30 tab Transmission Status: Pending to [facility] Primary Care Physician: Roma Grajeda DO [Primary Care Provider] - Please follow up with your Primary Care Physician in: 1 week. Test Results: Test results from this visit will be discussed in further detail at your follow- up appointment, if applicable.
[2020-11-25] MEDS: Pantoprazole Sodium 20 MG Tablet PO (10:01)
[2020-11-25] MEDS: amLODIPine 5 MG Tablet PO (10:01)
[2020-11-25] MEDS: Enoxaparin 40 MG/0.4 ML Syringe SC (10:01)
[2020-11-25] MEDS: Azelastine HCl NASAL.SRY 2 SPRAY NASAL (10:02)
--- NOTE | 2020-11-25 11:21 | CASEMGMT ---
JAYDEN MENDOZA in to discuss HHC with patient. Patient prefers [facility] after reviewing the list of HHC agencies. JAYDEN MENDOZA made referral to Cheri CARPENTER at [facility] and they are able to accept the patient. JAYDEN MENDOZA updated patient of acceptance by [facility]. Patient denied further questions or concerns at this time.
--- NOTE | 2020-11-25 11:25 | PHA.DC.MC ---
Pharmacy Service has performed discharge medication reconciliation and counseling for this patient. The patient was counseled on the following discharge medications and changes in medications for homegoing were reviewed. 1. CIPRO 2. SYNTHROID- DOSE INCREASED The Reason for Use, instructions for use, and potential side effects were reviewed for all new medications. The patient's questions regarding all of their medications were answered. The patient was able to verbally demonstrate an understanding of their discharge medications. Home Medications Amitriptyline HCl 25 mg PO QHS 08/16/20 Amlodipine [Norvasc] 10 mg PO DAILY 08/16/20 Azelastine HCl [Astelin] 2 spray NASAL DAILY 08/16/20 Bismuth Subsalicylate [Pepto-Bismol] 30 ml PO PRN PRN 08/16/20 Cetirizine HCl [Zyrtec] 10 mg PO DAILY PRN 08/16/20 Fluticasone 0.05% [Flonase Nasal [place]] 2 spray NASAL QHS 08/16/20 Gabapentin [Neurontin] 300 mg PO TID 08/16/20 traZODone [Desyrel] 50 mg PO QHS 08/16/20 Ascorbic Acid [Vitamin C] 1,000 mg PO DAILY 11/09/20 Cholecalciferol (Vitamin D3) [Vitamin D3] 5,000 unit PO DAILY 11/09/20 Ondansetron [Zofran Odt] 4 mg PO Q8H PRN PRN #10 tab 11/09/20 traMADol [Ultram] 50 mg PO Q8H PRN PRN 11/09/20 Albuterol Inhaler [Ventolin Hfa] 2 puff INHALATION Q4H PRN PRN #1 inhaler 11/12/20 Acetaminophen [Tylenol] 500 mg PO Q6H PRN PRN 11/22/20 Furosemide [Lasix] 40 mg PO DAILY 11/22/20 Pantoprazole Sodium [Protonix] 40 mg PO BID 11/22/20 Ciprofloxacin [Cipro] 500 mg PO BID #7 tab 11/25/20 Levothyroxine [Synthroid] 75 mcg PO DAILY@0600 #30 tab 11/25/20 The patient's discharge medication list was reviewed for discrepancies and discrepancies were resolved.
--- NOTE | 2020-11-25 12:10 | DS.PCM_ITS ---
Discharge Date and Diagnosis Date of Admission: 11/22/20 Date of Discharge: 11/25/20 - Primary Discharge Diagnosis Acute Problems: #1 Pseudomonas aeruginosa acute cystitis. #2 near syncopal episode, resolved. #3 recent history of pneumonia, completed treatment. #4 hypothyroidism, dose of levothyroxine adjusted. - Secondary Discharge Diagnosis Chronic Problems: Chronic Problems (Last Reviewed 11/11/20 @ 07:[address] 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) Peptic ulcer disease (Chronic) Osteoarthritis of right hip (Chronic) Low back pain (Chronic) Allergic rhinitis (Chronic) Osteoporosis (Chronic) Asthma (Chronic) Insomnia (Chronic) Recurrent UTI (Chronic) Constipation (Chronic) Overactive bladder (Chronic) Hyponatremia (Chronic) History of peptic ulcer disease (Chronic) Hypothyroidism (Chronic) Hypertension (Chronic) Hospital Course and Treatment Imaging Results: Clinical Impression(s) from Imaging Studies Chest X-Ray 11/22/20 10:25 IMPRESSION: Mild degree of increased markings at the lung bases suggesting mild scarring although there has been improvement as compared to prior study. Electronically Signed: Darron Rojas MD at 10:59 EST , Service support , Operations: None, - - ORIF right hip fracture Procedures: None Summary of Care Provided: Patient seen and examined on the day of discharge and appeared to be stable to be discharged home. She is feeling significantly better. No specific complaints. Her vital signs were stable. The patient is a 84 year old F presented to the emergency room because of weakness and near syncopal episode, developed hypotension in the ED and she was found to have acute cystitis. On admission, her chest x-ray revealed atelectasis at lung bases and there was no obvious evidence of infiltrate. Patient did have a history of recent pneumonia for which she completed course of Augmentin after discharge. Urinalysis revealed cloudy urine, 500 leukocyte esterase, there was 50-100 WBCs and 2+ bacteria seen. She had urine culture in the past that was positive for Pseudomonas aeruginosa. Patient was admitted to the floor, started on IV Zosyn as well as IV fluids. Initial lactic acid was elevated which came down to normal after IV fluids. There was no evidence of sepsis or severe sepsis. Blood pressure improved with IV fluid bolus and start to go up. She was started back on her Norvasc for hypertension. She did have history of hypothyroidism and a TSH was 10.8 indicating that she is not receiving enough levothyroxine supplement. Dose of levothyroxine was increased from 50 mcg daily to 75 mcg daily. COVID-19 antigen came back negative. Blood culture showed no growth in 48 hours. Urine culture revealed Pseudomonas aeruginosa which was sensitive to Zosyn and ciprofloxacin. After treatment, patient felt better, blood pressure stabilized and she has been afebrile WBC went back to normal. Patient discharged home in a stable medical condition, discharged on ciprofloxacin 500 mg p.o. twice daily for 3 days more of treatment to complete total 7 days of treatment, dose of levothyroxine increased to 75 mcg daily, continued on her other previous medications without any changes, recommended follow-up with PCP in 1 week. - Physical Exam Vitals/I&O's: Vital Signs Temp Pulse Resp BP Pulse Ox 98 F 76 18 143/60 H 97 11/25/20 08:15 11/25/20 08:15 11/25/20 08:15 11/25/20 08:15 11/25/20 08:15 Oxygen Delivery Method Room Air Weight: 159 lb 9.835 oz Body Mass Index (BMI) 32.2 Intake and Output for Last 24 Hours 11/23/20 11/24/20 11/25/20 23:59 23:59 23:59 Intake Total 2711.25 / 3111.25 2935 / 2935 300 / 300 Output Total 2150 / 2150 400 / 400 Balance 2711.25 / 2911.25 785 / 785 -100 / -100 General: Alert, Oriented x3, Cooperative, No apparent distress HEENT: Atraumatic, PERRLA, EOMI, Normocephalic Oral: Moist Mucosa, No Gingival or Mucosal Lesions/ Ulcerations Neck: Supple, No JVD, Negative Carotid Bruits, Trachea Midline, Thyroid Normal Size and Texture Lungs: Clear to auscultation, No rhonchi, No wheeze, No rales, Diminished Cardiovascular: Regular rate, Regular Rhythm, Normal S1, Normal S2, PMI Normal Abdomen: Bowel Sounds Present, Soft, Non Tender, Non-Distended, No Hepato- splenomegaly Extremities: No clubbing, No cyanosis, Edema Skin: No rashes, No breakdown Lymphatic: No Cervical, Supraclavicular, or Inguinal Adenopathy Neurological: Cranial nerves II-XII grossly intact, Neuro grossly intact Psych/Mental Status: Normal Affect, Appropriate Microbiology Past 72 Hours 11/22/20 13:03 Blood Culture (Wb) - Right Forearm Blood Culture - Prel iminary No growth in 48 hours. 11/22/20 12:45 Blood Culture (Wb) - Left Hand Blood Culture - Preliminary No growth in 48 hours. 11/22/20 11:30 Urine, Catheterized Urine Culture - Final Pseudomonas aeroginosa 11/22/20 13:12 Mucosa - Nose SARS-CoV-2 Antigen (Rapid) - Final Laboratory Results 11/25/20 06:32: Hgb 9.1 L, Hct 29.6 L Current Medications Acetaminophen (Acetaminophen 325 Mg Tablet) 650 mg PO Q6H PRN PRN PRN Reason: Pain Score 1-10/Temp > 100.7 F Last Admin: 11/25/20 05:25 Dose: 650 mg Documented by: Albuterol Sulfate (Albuterol 2.5 Mg/3 Ml Vial.Neb.) 2.5 mg INHALATION Q4H PRN PRN PRN Reason: Shortness of breath, wheezing Amitriptyline HCl (Amitriptyline 25 Mg Tablet) 25 mg PO QHS [facility] Last Admin: 11/24/20 21:06 Dose: 25 mg Documented by: Amlodipine Besylate (Amlodipine 5 Mg Tablet) 5 mg PO DAILY [facility] Last Admin: 11/25/20 10:01 Dose: 5 mg Documented by: Azelastine HCl (Azelastine Hcl Nasal.Sry) 2 spray NASAL DAILY [facility] Last Admin: 11/25/20 10:02 Dose: 2 spray Documented by: Enoxaparin Sodium (Enoxaparin 40 Mg/0.4 Ml Syringe) 40 mg SC DAILY [facility] Last Admin: 11/25/20 10:01 Dose: 40 mg Documented by: Fluticasone Propionate (Fluticasone 0.05% 1 [place] Nasal.Sry) 2 spray NASAL QHS [facility] Last Admin: 11/24/20 21:06 Dose: 2 spray Documented by: Gabapentin (Gabapentin 300 Mg Capsule) 300 mg PO TID [facility] Last Admin: 11/25/20 05:25 Dose: 300 mg Documented by: Piperacillin Sod/Tazobactam (Sod 3.375 gm/ Sodium Chloride) 50 mls @ 12.5 mls/hr IV Q8 [facility] Last Infusion: 11/25/20 09:32 Dose: Infused Documented by: Levothyroxine Sodium (Levothyroxine 75 Mcg Tablet) 75 mcg PO DAILY@0600 [facility] Last Admin: 11/25/20 05:25 Dose: 75 mcg Documented by: Loratadine (Loratadine 10 Mg Tablet) 10 mg PO DAILY PRN PRN PRN Reason: ALLERGIES Ondansetron HCl (Ondansetron 4 Mg/2 Ml Vial) 4 mg IV Q8H PRN PRN PRN Reason: NAUSEA/VOMITING Pantoprazole Sodium (Pantoprazole Sodium 20 Mg Tablet) 20 mg PO BID [facility] Last Admin: 11/25/20 10:01 Dose: 20 mg Documented by: Senna/Docusate Sodium (Senna/Docusate Sodium 1 Tablet) 2 tablet PO BID PRN PRN PRN Reason: Constipation Sodium Chloride (0.9% Saline Lock 10 Ml Syringe) 10 - 40 ml IV UD PRN PRN Reason: SALINE FLUSH Last Admin: 11/23/20 18:14 Dose: 10 ml Documented by: Tramadol HCl (Tramadol 50 Mg Tablet) 50 mg PO Q8H PRN PRN PRN Reason: Pain Score 1-10 Last Admin: 11/24/20 23:52 Dose: 50 mg Documented by: Trazodone HCl (Trazodone 50 Mg Tablet) 50 mg PO QHS [facility] Last Admin: 11/24/20 21:05 Dose: 50 mg Documented by: Discharge Activity: Return to Normal Activity Weight Bearing Status: Weight bearing as tolerated Call your doctor if you observe: Fever of 101 or Higher, Shortness of breath, Dizziness, Fainting spells, Chest pain, Increased palpitations (irregular heartbeat), Uncontrolled pain Home Medications: Medications to take at Discharge Amitriptyline HCl 25 mg PO QHS 08/16/20 Amlodipine [Norvasc] 10 mg PO DAILY 08/16/20 Azelastine HCl [Astelin] 2 spray NASAL DAILY 08/16/20 Bismuth Subsalicylate [Pepto-Bismol] 30 ml PO PRN PRN 08/16/20 Cetirizine HCl [Zyrtec] 10 mg PO DAILY PRN 08/16/20 Fluticasone 0.05% [Flonase Nasal [place]] 2 spray NASAL QHS 08/16/20 Gabapentin [Neurontin] 300 mg PO TID 08/16/20 traZODone [Desyrel] 50 mg PO QHS 08/16/20 Ascorbic Acid [Vitamin C] 1,000 mg PO DAILY 11/09/20 Cholecalciferol (Vitamin D3) [Vitamin D3] 5,000 unit PO DAILY 11/09/20 Ondansetron [Zofran Odt] 4 mg PO Q8H PRN PRN #10 tab 11/09/20 traMADol [Ultram] 50 mg PO Q8H PRN PRN 11/09/20 Albuterol Inhaler [Ventolin Hfa] 2 puff INHALATION Q4H PRN PRN #1 inhaler 11/12/20 Acetaminophen [Tylenol] 500 mg PO Q6H PRN PRN 11/22/20 Furosemide [Lasix] 40 mg PO DAILY 11/22/20 Pantoprazole Sodium [Protonix] 40 mg PO BID 11/22/20 Ciprofloxacin [Cipro] 500 mg PO BID #7 tab 11/25/20 Levothyroxine [Synthroid] 75 mcg PO DAILY@0600 #30 tab 11/25/20 Following Prescriptions Were Given to Patient: Ciprofloxacin [Cipro] 500 mg PO BID #7 tab Transmission Status: Received by [facility] Levothyroxine [Synthroid] 75 mcg PO DAILY@0600 #30 tab Transmission Status: Received by [facility] Primary Care Physician: Roma Grajeda DO [Primary Care Provider] - Please follow up with your Primary Care Physician in: 1 week. Please Follow Up With: Roma Grajeda DO Disposition: Home Minutes spent on discharge:: 32 Patient Condition:: Stable Medical Necessity - Tobacco Use Smoking Status: Never smoker Tobacco Use: Non-smoker Meaningful Use Info Meaningful Use Diagnoses (Choose all that apply): None applicable Inpatient E&M: [id number] [facility]
--- NOTE | 2020-11-25 16:07 | NURSING ---
Late entry: Student documentation reviewed.
--- NOTE | 2020-11-26 13:42 | CASEMGMT ---
JAYDEN MENDOZA Discharge Follow-up Phone Call: LAISHA:Matthew Strata:4 Call Date:11/26/20 Discharge Date:11/25/20 Time of Call:1340 Duration:1 Admitting Diagnosis:near syncope, acute cystitis, hypotension JAYDEN MENDOZA attempted to complete follow up tc after recent hospitalization. No answer, voice message left with contact information. Patient has follow up appt scheduled with PCP on 12.02.20. Patient was set up with [facility] [place]
== END 2020-11-25 12:25 | disposition home or self-care (01) | DRG 690 ==
LOC: ED 11:34 → MS3 14:24
PROVIDERS: Hospitalist; Admitting Provider Hospitalist; Emergency Provider Student in an Organized Health Care Education/Training Program; PCP Family Medicine; Visit Provider Hospitalist
DX: N30.00 Acute cystitis without hematuria (principal); B96.5 Pseudomonas (aeruginosa) (mallei) (pseudomallei) as the cause of diseases classified elsewhere; I95.9 Hypotension, unspecified; R55 Syncope and collapse; E86.0 Dehydration; R09.02 Hypoxemia; Z20.822 Contact with and (suspected) exposure to COVID-19; N32.81 Overactive bladder; I10 Essential (primary) hypertension; E03.9 Hypothyroidism, unspecified; J45.909 Unspecified asthma, uncomplicated; M16.11 Unilateral primary osteoarthritis, right hip; G47.00 Insomnia, unspecified; M81.0 Age-related osteoporosis without current pathological fracture; Z79.890 Hormone replacement therapy; Z79.899 Other long term (current) drug therapy; Z87.440 Personal history of urinary (tract) infections; Z87.01 Personal history of pneumonia (recurrent); Z87.11 Personal history of peptic ulcer disease; Z96.641 Presence of right artificial hip joint
CPT/HCPCS: 36415; 71045; 80048; 81001; 82962; 83605; 84443; 84484; 85014; 85018; 85025; 87040; 87077; 87086; 87088; 87184; 87186; 87426; 93005; 97110; 97162; 97166; 97530; 97535; 99285; J7030; J7120; A4216

== ENCOUNTER 2021-01-30 21:46 | Emergency (ER) | payer MEDICARE, SELFPAY ==
[2020-11-22 15:22] VITALS: BMI 32.2
[2021-01-30 21:47] VITALS: BP 153/86; PULSE 77; RESP 15; TEMP 36.6; O2SAT 98; BMI 30.2
--- NOTE | 2021-01-30 22:12 | ED.VIS.GEN ---
History of Present Illness Chief Complaint: Complaint Informant: Patient Onset: Days Context: Gradual Onset Narrative: Patient presents secondary to UTI symptoms. She states since yesterday afternoon she is been urinating every 1/2 hour. She denies dysuria. She reports a history of UTIs about every 2 months. She was last admitted here in November with a UTI and generalized weakness. She states she does take Keflex every evening secondary to her history of UTIs. 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 (3) History of peptic ulcer disease Status: Chronic (4) Hypertension Status: Chronic (5) Hypothyroidism Status: Chronic Past Medical History - Allergies and Home Meds Allergies/Adverse Reactions: Allergies gluten Allergy (Verified 01/30/21 21:47) Food Allergy grass pollen-perennial rye, standar [grass poll-perennial rye,std] Allergy (Verified 01/30/21 21:47) sinus pressure lactose Adverse Reaction (Verified 01/30/21 21:47) Food Allergy DUST Allergy (Uncoded 01/30/21 21:47) sinus pressure MOLD Allergy (Uncoded 01/30/21 21:47) SINUS PRESSURE Primary Care Physician: Roma Grajeda DO [Primary Care Provider] - Surgical History: appendectomy, cataract, cholecystectomy, hysterectomy, total hip arthroplasty - Right, 11/07/[address] Huynh., tonsillectomy, - - both shoulders,back knee and shoulders,eye surgeries, right knee surgery, lumbar spine surgery, bunionectomy, Lives: Spouse/ Significant Other Smoking Status: Never smoker - Family History Maternal Family History: Reports: Heart Disease, - Paternal Family History: Reports: Heart Disease, Pulmonary Disease, - Review of Systems General: Denies: Chills, Fever Eyes: Denies: Visual changes - bilaterally ENT: Denies: Bilateral ear pain Cardiovascular: Denies: Chest pain Respiratory: Denies: Dyspnea, Cough Gastrointestinal: Denies: Abdominal pain, Nausea, Vomiting, Diarrhea Genitourinary: Reports: Frequency Musculoskeletal: Denies: Extremity Pain Skin: Denies: Rash Neurological: Denies: Headache Hematologic: Denies: Easy bruising, Easy bleeding Allergy: Denies: Uticaria Physical Exam Vital Signs/Narrative: Vital Signs Temp Pulse Resp BP Pulse Ox 01/30/21 21:47 97.8 F 77 15 153/86 H 98 Inital Vital Signs reviewed: Yes General: Well nourished, Well developed ENT: Moist mucous membranes Neck: Supple Cardiovascular: Regular rate, Regular rhythm Respiratory: No distress, CTA bilaterally Abdomen: Soft, Nontender Extremities: Nontender Skin: Normal color Neurological: Alert, Oriented x3 Psychological: Normal affect Diagnostic/Tx/Re-eval Laboratory Results 01/30/21 01/30/21 01/30/21 22:00 22:57 22:57 WBC 5.5 RBC 3.74 L Hgb 11.1 L Hct 35.2 L MCV 94.1 MCH 29.7 MCHC 31.5 L RDW Std Deviation 44.4 H RDW Coeff of Laury 12.7 Plt Count 266 MPV 9.6 Immature Gran % (Auto) 0.900 Neut % (Auto) 67.3 Lymph % (Auto) 19.7 [place] % (Auto) 8.7 Eos % (Auto) 2.7 Baso % (Auto) 0.7 Absolute Neuts (auto) 3.7 Absolute Lymphs (auto) 1.08 Nucleated RBC % 0 Sodium 139 Potassium 3.7 Chloride 106 Carbon Dioxide 28.0 Anion Gap 5 BUN 26 H Creatinine 0.90 Estim Creat Clear Calc 49.98 Est GFR (MDRD) Af Amer 77 Est GFR (MDRD) Non-Af 64 BUN/Creatinine Ratio 29.0 H Glucose 91 Calcium 9.6 Urine Color Yellow Urine Clarity Clear Urine pH 7.0 Ur Specific [place] 1.010 Urine Protein Negative Urine Glucose (UA) Normal Urine Ketones Negative Urine Occult Blood 10 H Urine Nitrite Negative Urine Bilirubin Negative Urine Urobilinogen Normal Ur Leukocyte Esterase Negative Urine RBC 0-5 SEEN Urine WBC 0 SEEN Ur Squamous Epith Cells 0-5 SEEN Urine Bacteria 0 SEEN Urine Mucus 0 SEEN - Medical Decision Making Patient's blood work is unremarkable. Urinalysis shows no sign of acute infection. Post void residual scan was obtained and patient only had 30 cc noted. Test results discussed with patient at bedside. She will continue to monitor symptoms and follow-up with Dr. Gutierrez. She is given return instructions. ED Disposition - Plan for ED Patient: Disposition: Home or Assisted Living Diagnosis: Urinary frequency Referrals: Roma Grajeda DO [Primary Care Provider] - Additional Instructions: Your test results tonight do not indicate evidence of a urinary infection. Your urine was sent for a culture and those results should be available in 48 hours. Please follow-up with Dr Gutierrez this week if symptoms persist.
[2021-01-30 22:34] LABS: Bacteria 0 SEEN /hpf (None Seen); Mucous, Urine 0 SEEN /hpf (<or=2+); White Blood Cells 0 SEEN /hpf (0-5)
[2021-01-30 22:50] LABS: Color, Urine Yellow (Yellow); Glucose, Dipstick Normal (Normal); Ketone-Dipstick Negative (Negative); Leukocyte Esterase-Dipstick Negative /ul (Negative); Nitrite-Dipstick Negative (Negative); Occult Blood-Urine 10 /ul (Negative); Protein-Dipstick Negative (Negative); Urine Bilirubin Dipstick Negative (Negative); Urine Clarity Clear (Clear); Urine Urobilinogen Normal (Normal)
[2021-01-30 22:57] LABS: Red Blood Cells-Urine 0-5 SEEN /hpf (0-5); Squamous Epithelial Cells - UA 0-5 SEEN /hpf (5-10)
[2021-01-30 23:29] LABS: Anion Gap 5 (5-15); BUN 26 mg/dL (7-18); Calcium,Total 9.6 mg/dL (8.5-10.1); Chloride 106 mmol/L (98-107); EST Glomerular Filtration Rate 64 mL/min (>60); Est Glom Filt Rate - Afr Amer 77 mL/min (>60); Estimated Creatinine Clearance 49.98 ml/min; Glucose 91 mg/dL (74-106); Potassium 3.7 mmol/L (3.5-5.1); Sodium Level 139 mmol/L (136-145)
[2021-01-30 23:32] LABS: Absolute Lymphocyte Count 1.08 X10^3/uL (0.83-4.51); Absolute Neutrophil Count 3.7 X10^3/uL (2.0-7.7); Basophil# 0.04 X10^3/uL; Basophil% 0.7 % (0-1); Eosinophil# 0.15 X10^3/uL; Eosinophils% 2.7 % (0-5); Hematocrit 35.2 % (37-47); Hemoglobin 11.1 g/dL (12.0-15.0); Lymphocyte # 1.08 X10^3/ul (0.83-4.51); Lymphocyte % 19.7 % (19-41); Mean Corp Hgb Conc 31.5 g/dL (32-36); Mean Corpuscular Hgb 29.7 pg (27.0-32.0); Mean Corpuscular Volume 94.1 fL (81-99); Mean Platelet Vol. 9.6 fl (6.2-12.0); Monocyte# 0.48 X10^3/uL; Monocyte% 8.7 % (0-10); NRBC Flagged by Analyzer 0 % (0-5); Neutrophil # 3.69 X10^3/uL (2.7-7.7); Neutrophil % 67.3 % (47-70); Platelet Count 266 K/mm3 (150-450); RBC Distribution Width CV 12.7 % (11.6-14.6); RBC Distribution Width SD 44.4 fl (35.1-43.9); Red Blood Count 3.74 M/mm3 (4.2-5.4); White Blood Count 5.5 K/mm3 (4.4-11.0)
== END 2021-01-31 00:01 | disposition home or self-care (01) ==
PROVIDERS: Emergency Provider Emergency Medicine; PCP Family Medicine
DX: R35.0 Frequency of micturition (principal); I10 Essential (primary) hypertension; E03.9 Hypothyroidism, unspecified; J45.909 Unspecified asthma, uncomplicated; Z79.899 Other long term (current) drug therapy; Z87.11 Personal history of peptic ulcer disease; Z87.440 Personal history of urinary (tract) infections
CPT/HCPCS: 80048; 81001; 85025; 87086; 87088; 99284; A4216

== ENCOUNTER → 2021-02-01 10:41 | Outpatient (CLI) | payer MEDICARE, SELFPAY ==
[2020-11-22 15:22] VITALS: BMI 32.2
[2021-01-30 21:47] VITALS: BMI 30.2
[2021-02-01 12:51] LABS: Absolute Lymphocyte Count 1.12 X10^3/uL (0.83-4.51); Absolute Neutrophil Count 3.6 X10^3/uL (2.0-7.7); Basophil# 0.04 X10^3/uL; Basophil% 0.7 % (0-1); Eosinophil# 0.24 X10^3/uL; Eosinophils% 4.4 % (0-5); Hematocrit 35.5 % (37-47); Hemoglobin 10.8 g/dL (12.0-15.0); Lymphocyte # 1.12 X10^3/ul (0.83-4.51); Lymphocyte % 20.4 % (19-41); Mean Corp Hgb Conc 30.4 g/dL (32-36); Mean Corpuscular Volume 95.4 fL (81-99); Mean Platelet Vol. 9.7 fl (6.2-12.0); Monocyte# 0.48 X10^3/uL; Monocyte% 8.7 % (0-10); NRBC Flagged by Analyzer 0 % (0-5); Neutrophil # 3.61 X10^3/uL (2.7-7.7); Neutrophil % 65.6 % (47-70); Platelet Count 279 K/mm3 (150-450); RBC Distribution Width SD 45.2 fl (35.1-43.9); Red Blood Count 3.72 M/mm3 (4.2-5.4); White Blood Count 5.5 K/mm3 (4.4-11.0)
[2021-02-01 13:13] LABS: ALB/GLOB Ratio 1.1 RATIO (0.9-2.4); AST(SGOT) 17 U/L (15-37); Alanine Aminotransfer ALT/SGPT 20 U/L (13-56); Albumin, Serum 3.6 g/dL (3.2-5.0); Alkaline Phosphatase 65 U/L (45-117); Anion Gap 5 (5-15); BUN 29 mg/dL (7-18); BUN/Creat Ratio 30.3 RATIO (10-20); Calcium,Total 8.9 mg/dL (8.5-10.1); Chloride 104 mmol/L (98-107); Creatinine, Serum 0.96 mg/dL (0.55-1.02); EST Glomerular Filtration Rate 59 mL/min (>60); Est Glom Filt Rate - Afr Amer 72 mL/min (>60); Free T3 2.3 pg/mL (2.18-3.98); Globulin 3.4 g/dL (2.2-4.2); Glucose 99 mg/dL (74-106); Sodium Level 136 mmol/L (136-145); T4 Free Direct 1.19 ng/dL (0.76-1.46); Thyroid Stim Hormone (TSH) 2.36 uIU/mL (0.358-3.74)
== END ==
PROVIDERS: PCP Family Medicine; Referring Provider Family Medicine; Visit Provider Family Medicine
DX: E03.9 Hypothyroidism, unspecified (principal); D64.9 Anemia, unspecified; Z51.81 Encounter for therapeutic drug level monitoring
CPT/HCPCS: 36415; 80053; 84439; 84443; 84481; 85025

== ENCOUNTER 2021-04-25 12:18 | Day surgery (SDC) | payer MEDICARE, SELFPAY ==
[2021-04-25] VITALS (9 sets, daily range): BP systolic 134–167; BP diastolic 66–75; PULSE 72–79; RESP 16–18; TEMP 36.2–36.6; O2SAT 97–100; BMI 30.7
[2021-04-25] MEDS: Lactated Ringers 1,000 ML 100 ML IV (14:21)
[2021-04-25] MEDS: Cefazolin 2 GM in 0.9% Normal Saline 100 ML IV (14:29)
--- NOTE | 2021-04-25 14:40 | RAD_ITS ---
STUDY: X-RAY - LUMBAR SPINE REASON FOR EXAM: Female, 85 years old. Insertion of spinal cord stimulator. Intraoperative digital documentation images. TECHNIQUE: 5 intraoperative digital documentation view(s) of the lumbar spine were obtained. COMPARISON: None FINDINGS: 5 intraoperative digital documentation views show insertion of 2 spinal stimulators. RAD/Lumbar Spine 2 or 3 Views IMPRESSION: Intraoperative digital documentation views. Electronically Signed: Viet Gimenez MD at 10:53 EDT , Service support ,
[2021-04-25] MEDS: Lidocaine 2% (20 ml mdv) 20 ML Vial (16:05)
[2021-04-25] MEDS: Bupivacaine 0.25% 30 ML Vial (16:05)
[2021-04-25] MEDS: Bacitracin 500 UNITS/GM PACKET (16:16)
--- NOTE | 2021-04-25 17:38 | OP.PCM_ITS ---
Report of Operation Date of Procedure: 04/25/21 Description of Surgical Findings:: Date of Procedure: 03/28/21 Description of Surgical Findings:: Pre-Operative Diagnosis: Lumbosacral radiculopathy, lumbosacral degenerative disc disease, lumbosacral spinal stenosis Post-Operative Diagnosis: Lumbosacral radiculopathy, lumbosacral degenerative disc disease, lumbosacral spinal stenosis Surgery/Procedure Performed:: 1. Spinal cord stimulator thoracolumbar leads placement x2 #2 spinal cord stimulator Medtronic intellus generator placement #3 spinal cord stimulator generator pocket creation at the left gluteal region #4 spinal cord stimulator simple programming, 5-intraoperative fluoroscopic interpretation Description of Surgical Findings:: PROCEDURES: 1. Spinal cord stimulator thoracolumbar factors SureScan MRI leads placement x2 #2 spinal cord stimulator Medtronic intellus generator placement #3 spinal cord stimulator generator pocket creation at the left gluteal region #4 spinal cord stimulator simple programming 5-intraoperative fluoroscopic interpretation PREOPERATIVE DIAGNOSES: Lumbosacral radiculopathy, lumbosacral degenerative disc disease, lumbosacral spinal stenosis POSTOPERATIVE DIAGNOSES: Lumbosacral radiculopathy, lumbosacral degenerative disc disease, lumbosacral spinal stenosis ANESTHESIA: MAC COMPLICATIONS: None BLOOD LOSS: Minimal Implanted device: Spinal cord stimulator lead [id number] lot number [id number], lead #2 [id number] lot number [id number] Medtronic spinal cord stimulator generator intellus serial number [id number] PROCEDURE IN DETAIL: History and physical today was reviewed. Risks and benefits of procedure explained. The patient understood, agreed to procedure, informed consent was obtained. IV inserted per routine protocol. The patient was taken to the operating room, placed in the prone position with a pillow positioned underneath the abdomen. A 2 g of Ancef IV piggyback was infused per anesthesia. The lower back and left gluteal area was prepped and draped in a sterile fashion using iodine x3 Ioban was placed. The C-arm was brought in position for AP view at the L 1?2 vertebral bodies under direct visualization fluoroscopy on a true AP view the L1 to interlaminar space was identified skin and subcutaneous tissue and size approximately 10 cc of a mix of 2% lidocaine and 0.25% Marcaine using a 25-gauge regular needle followed by a 25-gauge 3-1/2 inch spinal needle towards the interlaminar space at L1-2, the skin and subcutaneous tissue were then anesthetized and using an 11-gauge blade was then taken down to the skin and subcutaneous tissue using a 14-gauge 3-1/2 inch Touhy needle provided by the [employer] kit the needle was passed through the skin towards the interlaminar space at L2-3 and a paramedian approach the needle was then advanced under direct visualization fluoroscopy towards the interlaminar space at L1-2 [id number] technique was then carried to air towards the interlaminar space at L1-2 once the tip of the needle was in the epidural space and loss of resistance was encountered to air and after confirmation of AP as well as oblique view of the spinal cord stimulator lead was then advanced under direct visualization fluoroscopy to be at the tip of the lead at T8 and the bottom of the lead around mid T10 after confirmation of AP as well as lateral view to confirm correct placement of the lead in the posterior compartment of the epidural space the previous procedure was then repeated to a level at L1-2 interlaminar space at the right paraspinal approach the second lead was then inserted under direct visualization with fluoroscopy to be at the mid T8 and mid T10 area the leads were were then connected to the external neurostimulator and patient was then awakened to confirm satisfactory coverage of the painful area once satisfactory coverage was then achieved the stylette of each needle was then removed and the skin and subcutaneous tissue on to the left of the paramedian needles was then taken anesthetized with a total of 10 cc of the previous mixture of 0.25% Marcaine and 2% lidocaine using a 25-gauge regular needle the incision was then taken down through the skin and subcutaneous tissue towards the fascia making sure hemostasis was then maintained via cautery, the spinal cord stimulator leads were then passed through the above incision and secured using the biwing and sutured down with a 2-0 silk to the fascia at that level the spinal cord stimulator leads were then tunneled via a tunneler provided by the [employer] kit towards the previously incised spinal cord stimulator battery at the left gluteal region skin and subcutaneous tissue were anesthetized with approximately 10 cc of a mix of 2% lidocaine and 0.25% Marcaine using a 25 gauge regular needle, skin and subcutaneous tissue was then taken down with the 11-gauge blade hemostasis was maintained with Bovie and direct pressure the incision was then taken down to the fascia and the battery was then secured with the 2-0 silk sutures that were the spinal cord stimulator leads the upper lead was then marked the new until spinal cord stimulator battery was then provided [employer] kit the battery was then reattached of the spinal cord stimulator make ensure that the top lead is attached to the top position from 0-7 electrodes and the bottom from 8-15 electrodes once impedance was then checked to be in the proper average number the intellus battery was then inserted into the pocket and impedance with when checked again the pocket was then inspected to confirm hemostasis in place, the intellus battery was then secured to the fascia using a 2-0 silk to the upper eyes of the battery confirming an upward writing of the intellus facing posterior, once complete confirmation the battery was then placed in the position and the the mid paramedian and the gluteal incisions were then closed primarily through a 3-0 V icryl in a running fashion followed by a 4-0 Vicryl to the skin, hemostasis was then maintained during the procedure the skin was then covered with a Steri- Strips and bacitracin patient was then returned into the supine position in a stable condition and returned to recovery in a stable condition patient experienced no signs or symptoms of intrathecal or intravascular injection patient experienced no paresthesia the procedure was completed without any apparent difficulty any complication the patient appeared to tolerate well, motor as well as sensory function was unchanged from prior to the procedure ESTIMATED BLOOD LOSS: Minimal less than 25 mL ASSESSMENT AND PLAN: This is a 85 female with lumbosacral radiculopathy lumbosacral degenerative disc disease lumbosacral spinal stenosis, postlaminectomy syndrome of the lumbar spine status post 1. Spinal cord stimulator thoracolumbar leads placement x2 #2 spinal cord stimulator Medtronic intellus generator placement #3 spinal cord stimulator generator pocket creation at the left gluteal region #4 spinal cord stimulator simple programming, 5-intraoperative fluoroscopic interpretation patient will continue her current medications a prescription was provided to the patient Keflex 500 mg 1 p.o. every 8 hours for 7 days postop instruction were given in writing to the patient and her as well as verbally and in writing, patient will follow approximately 1 week for reevaluation.
--- NOTE | 2021-04-25 18:02 | SUR.PHASEII ---
left to get prescription filled at [facility] pharmacy in [place].
== END 2021-04-25 18:12 ==
LOC: SDC 12:18 → AC 13:04
PROVIDERS: PCP Family Medicine; Referring Provider Anesthesiology Pain Medicine; Visit Provider Anesthesiology Pain Medicine
PROC: (CPT 63685; principal; 2021-04-25 13:15)
DX: M51.17 Intervertebral disc disorders with radiculopathy, lumbosacral region (principal); M48.07 Spinal stenosis, lumbosacral region; M96.1 Postlaminectomy syndrome, not elsewhere classified; M47.812 Spondylosis without myelopathy or radiculopathy, cervical region; M47.814 Spondylosis without myelopathy or radiculopathy, thoracic region; M51.34 Other intervertebral disc degeneration, thoracic region; I10 Essential (primary) hypertension; E07.9 Disorder of thyroid, unspecified; M81.0 Age-related osteoporosis without current pathological fracture; Z79.891 Long term (current) use of opiate analgesic; Z79.890 Hormone replacement therapy; Z79.899 Other long term (current) drug therapy
CPT/HCPCS: 63650 ×2; 63685; 95971; 72100; 76000; C1778; C1820; J7120

== ENCOUNTER → 2021-07-04 16:12 | Outpatient (CLI) | payer MEDICARE, SELFPAY ==
[2021-07-04 17:41] LABS: Absolute Lymphocyte Count 0.88 X10^3/uL (0.83-4.51); Basophil# 0.07 X10^3/uL; Eosinophil# 0.16 X10^3/uL; Eosinophils% 2.4 % (0-5); Hematocrit 35.3 % (37-47); Hemoglobin 10.9 g/dL (12.0-15.0); Lymphocyte # 0.88 X10^3/ul (0.83-4.51); Lymphocyte % 13.2 % (19-41); Mean Corp Hgb Conc 30.9 g/dL (32-36); Mean Corpuscular Hgb 30.4 pg (27.0-32.0); Mean Corpuscular Volume 98.3 fL (81-99); Mean Platelet Vol. 9.6 fl (6.2-12.0); Monocyte# 0.55 X10^3/uL; Monocyte% 8.2 % (0-10); NRBC Flagged by Analyzer 0 % (0-5); Neutrophil # 4.99 X10^3/uL (2.7-7.7); Neutrophil % 74.9 % (47-70); Platelet Count 263 K/mm3 (150-450); RBC Distribution Width CV 12.1 % (11.6-14.6); RBC Distribution Width SD 44.4 fl (35.1-43.9); Red Blood Count 3.59 M/mm3 (4.2-5.4); White Blood Count 6.7 K/mm3 (4.4-11.0)
[2021-07-04 18:50] LABS: ALB/GLOB Ratio 0.8 RATIO (0.9-2.4); AST(SGOT) 11 U/L (15-37); Alanine Aminotransfer ALT/SGPT 18 U/L (13-56); Albumin, Serum 3.3 g/dL (3.2-5.0); Alkaline Phosphatase 79 U/L (45-117); Anion Gap 10 (5-15); BUN 27 mg/dL (7-18); BUN/Creat Ratio 26.5 RATIO (10-20); Calcium,Total 8.8 mg/dL (8.5-10.1); Chloride 101 mmol/L (98-107); Cholesterol 170 mg/dL (200); Creatinine, Serum 1.02 mg/dL (0.55-1.02); EST Glomerular Filtration Rate 55 mL/min (>60); Est Glom Filt Rate - Afr Amer 66 mL/min (>60); Glucose 78 mg/dL (74-106); High Density Lipoprotein 81 mg/dL; Potassium 4.3 mmol/L (3.5-5.1); Protein, Total 7.3 g/dL (6.4-8.2); Sodium Level 137 mmol/L (136-145); T4 Free Direct 1.23 ng/dL (0.76-1.46); Thyroid Stim Hormone (TSH) 0.42 uIU/mL (0.358-3.74); Triglycerides 102 mg/dL; Very Low Density Lipoprotein 20 mg/dL (5-40)
== END ==
PROVIDERS: PCP Family Medicine; Referring Provider Family Medicine; Visit Provider Family Medicine
DX: E03.9 Hypothyroidism, unspecified (principal); D64.9 Anemia, unspecified; E78.5 Hyperlipidemia, unspecified; Z51.81 Encounter for therapeutic drug level monitoring
CPT/HCPCS: 36415; 80053; 80061; 84439; 84443; 84481; 85025

== ENCOUNTER 2021-10-10 14:57 | Outpatient (CLI) | payer MEDICARE, SELFPAY ==
[2021-10-10 16:05] LABS: Absolute Lymphocyte Count 0.76 X10^3/uL (0.83-4.51); Absolute Neutrophil Count 5.3 X10^3/uL (2.0-7.7); Basophil# 0.06 X10^3/uL; Basophil% 0.9 % (0-1); Eosinophil# 0.17 X10^3/uL; Eosinophils% 2.5 % (0-5); Hematocrit 36.2 % (37-47); Hemoglobin 11.2 g/dL (12.0-15.0); Lymphocyte # 0.76 X10^3/ul (0.83-4.51); Lymphocyte % 11.3 % (19-41); Mean Corp Hgb Conc 30.9 g/dL (32-36); Mean Corpuscular Hgb 30.3 pg (27.0-32.0); Mean Corpuscular Volume 97.8 fL (81-99); Mean Platelet Vol. 9.3 fl (6.2-12.0); Monocyte# 0.44 X10^3/uL; Monocyte% 6.5 % (0-10); NRBC Flagged by Analyzer 0 % (0-5); Neutrophil # 5.26 X10^3/uL (2.7-7.7); Neutrophil % 78.4 % (47-70); Platelet Count 294 K/mm3 (150-450); RBC Distribution Width CV 12.7 % (11.6-14.6); RBC Distribution Width SD 45.6 fl (35.1-43.9); White Blood Count 6.7 K/mm3 (4.4-11.0)
[2021-10-10 16:35] LABS: ALB/GLOB Ratio 0.9 RATIO (0.9-2.4); AST(SGOT) 17 U/L (15-37); Alanine Aminotransfer ALT/SGPT 20 U/L (13-56); Albumin, Serum 3.7 g/dL (3.2-5.0); Alkaline Phosphatase 80 U/L (45-117); Anion Gap 6 (5-15); BUN 22 mg/dL (7-18); Calcium,Total 9.5 mg/dL (8.5-10.1); Chloride 100 mmol/L (98-107); Cholesterol 198 mg/dL (200); Creatinine, Serum 1.05 mg/dL (0.55-1.02); EST Glomerular Filtration Rate 53 mL/min (>60); Est Glom Filt Rate - Afr Amer 64 mL/min (>60); Globulin 4.1 g/dL (2.2-4.2); Glucose 90 mg/dL (74-106); High Density Lipoprotein 86 mg/dL; Potassium 4.1 mmol/L (3.5-5.1); Protein, Total 7.8 g/dL (6.4-8.2); Sodium Level 136 mmol/L (136-145); Triglycerides 155 mg/dL; Very Low Density Lipoprotein 31 mg/dL (5-40)
== END 2021-10-10 23:59 | disposition short-term general hospital (02) ==
LOC: MTLAB 14:59
PROVIDERS: PCP Family Medicine; Referring Provider Family Medicine; Visit Provider Family Medicine
DX: E03.9 Hypothyroidism, unspecified (principal); E78.5 Hyperlipidemia, unspecified; Z51.81 Encounter for therapeutic drug level monitoring
CPT/HCPCS: 36415; 80053; 80061; 85025

== ENCOUNTER 2021-12-22 14:57 | Outpatient (CLI) | payer MEDICARE, SELFPAY | END 2021-12-22 23:59 | disposition home or self-care (01) | LOC: LABSPEC 14:58 | PROVIDERS: PCP Family Medicine; Visit Provider Family Medicine | DX: N39.0 Urinary tract infection, site not specified (principal) | CPT/HCPCS: 87086; 87088; 87186 ==

== ENCOUNTER 2022-01-02 16:34 | Outpatient (CLI) | payer MEDICARE, SELFPAY ==
[2022-01-02 17:54] LABS: Absolute Lymphocyte Count 0.84 X10^3/uL (0.83-4.51); Absolute Neutrophil Count 4.2 X10^3/uL (2.0-7.7); Basophil# 0.06 X10^3/uL; Eosinophil# 0.15 X10^3/uL; Eosinophils% 2.6 % (0-5); Hematocrit 36.2 % (37-47); Hemoglobin 11.5 g/dL (12.0-15.0); Lymphocyte # 0.84 X10^3/ul (0.83-4.51); Lymphocyte % 14.4 % (19-41); Mean Corp Hgb Conc 31.8 g/dL (32-36); Mean Corpuscular Volume 94.5 fL (81-99); Mean Platelet Vol. 9.6 fl (6.2-12.0); Monocyte# 0.52 X10^3/uL; Monocyte% 8.9 % (0-10); NRBC Flagged by Analyzer 0 % (0-5); Neutrophil # 4.23 X10^3/uL (2.7-7.7); Neutrophil % 72.8 % (47-70); Platelet Count 300 K/mm3 (150-450); RBC Distribution Width CV 12.1 % (11.6-14.6); RBC Distribution Width SD 41.6 fl (35.1-43.9); Red Blood Count 3.83 M/mm3 (4.2-5.4); White Blood Count 5.8 K/mm3 (4.4-11.0)
[2022-01-02 18:28] LABS: AST(SGOT) 18 U/L (15-37); Alanine Aminotransfer ALT/SGPT 20 U/L (13-56); Albumin, Serum 3.8 g/dL (3.2-5.0); Alkaline Phosphatase 80 U/L (45-117); Anion Gap 7 (5-15); BUN 20 mg/dL (7-18); Calcium,Total 9.1 mg/dL (8.5-10.1); Chloride 100 mmol/L (98-107); Creatinine, Serum 1.05 mg/dL (0.55-1.02); EST Glomerular Filtration Rate 53 mL/min (>60); Est Glom Filt Rate - Afr Amer 64 mL/min (>60); Free T3 2.7 pg/mL (2.18-3.98); Globulin 3.9 g/dL (2.2-4.2); Glucose 81 mg/dL (74-106); Protein, Total 7.7 g/dL (6.4-8.2); Sodium Level 135 mmol/L (136-145); Thyroid Stim Hormone (TSH) 0.67 uIU/mL (0.358-3.74)
== END 2022-01-02 23:59 | disposition home or self-care (01) ==
LOC: MTLAB 16:36
PROVIDERS: PCP Family Medicine; Referring Provider Family Medicine; Visit Provider Family Medicine
DX: E03.9 Hypothyroidism, unspecified (principal); D64.9 Anemia, unspecified; Z51.81 Encounter for therapeutic drug level monitoring
CPT/HCPCS: 36415; 80053; 84439; 84443; 84481; 85025

== ENCOUNTER → 2022-07-04 | Outpatient (CLI) | payer MEDICARE, SELFPAY ==
--- NOTE | 2022-07-04 15:02 | RAD_ITS ---
STUDY: X-RAY - THORACIC SPINE REASON FOR EXAM: Female, 86 years old. Recent fall. Pain. TECHNIQUE: 2 view(s) of the thoracic spine were obtained. COMPARISON: 02/07/2022. FINDINGS: Marked osteopenia. Marked increased kyphosis, unchanged. There is no substantial scoliosis. Diffuse intervertebral disc space narrowing with osteophyte formation, unchanged from prior study. Stable epidural catheter. Vascular calcifications and calcified lymph nodes. Cholecystectomy clips and postfusion changes of the lower lumbosacral spine. RAD/Thoracic Spine 2 Views IMPRESSION: Stable thoracic spine. No acute superimposed finding since the prior study. Electronically Signed: Viet Gimenez, at 9:54 EDT ,
--- NOTE | 2022-07-04 15:02 | RAD_ITS ---
STUDY: X-RAY - LUMBAR SPINE REASON FOR EXAM: Female, 86 years old. RECENT FALL TECHNIQUE: 2 view(s) of the lumbar spine were obtained. COMPARISON: 02/07/2022 FINDINGS: Normal lumbar lordosis. There is no substantial scoliosis. L3-L4 -- L5-S1 instrumented fusion and thoracic spine stimulator redemonstrated. There is a normal alignment of the vertebrae. There is diffuse demineralization with multi-level endplate spondylosis. There is multi-level degenerative disc disease with multi-level disc space narrowing. No finding of fracture. There is atherosclerotic calcification of the abdominal aorta without a demonstrated aneurysm. RAD/Lumbar Spine 2 or 3 Views IMPRESSION: No finding of fracture. No acute abnormal finding. Electronically Signed: Teto Turner MD at 5:04 EDT ,
== END | disposition home or self-care (01) ==
LOC: MTRAD 14:59
PROVIDERS: PCP Family Medicine; Referring Provider Nurse Practitioner Family; Visit Provider Nurse Practitioner Family
DX: M51.37 Other intervertebral disc degeneration, lumbosacral region (principal); M47.814 Spondylosis without myelopathy or radiculopathy, thoracic region; M96.1 Postlaminectomy syndrome, not elsewhere classified
CPT/HCPCS: 72070; 72100

== ENCOUNTER → 2022-07-31 | Outpatient (CLI) | payer MEDICARE, SELFPAY | END | disposition home or self-care (01) | LOC: BFHLAB 15:32 | PROVIDERS: PCP Family Medicine; Visit Provider Family Medicine | DX: N39.0 Urinary tract infection, site not specified (principal) | CPT/HCPCS: 87077; 87086; 87088; 87186 ==

== ENCOUNTER → 2022-08-14 | Outpatient (CLI) | payer MEDICARE, SELFPAY | END | disposition home or self-care (01) | LOC: LABSPEC 14:27 | PROVIDERS: PCP Family Medicine; Visit Provider Family Medicine | DX: N39.0 Urinary tract infection, site not specified (principal) | CPT/HCPCS: 87086; 87088 ==

== ENCOUNTER 2022-12-08 06:22 | Inpatient (IN) | payer MEDICARE, SELFPAY ==
[2022-12-08] VITALS (7 sets, daily range): BP systolic 108–133; BP diastolic 47–63; PULSE 72–122; RESP 12–18; TEMP 36.3–37.3; O2SAT 93–100; BMI 31.1; BMI 30.5
--- NOTE | 2022-12-08 06:36 | CT_ITS ---
EXAM: CT HEAD WITHOUT INTRAVENOUS CONTRAST CLINICAL INDICATION: Altered mental status TECHNIQUE: Multiple axial images were obtained of the head without intravenous contrast. This CT exam was performed using one or more of the following dose reduction techniques: automated exposure control, adjustment of the mA and/or kV according to patient size, and/or use of iterative reconstruction technique. This report was created using [employer] report generation technology. RADIATION DOSE: CTDIvol = 44.99 mGy, DLP = 745.49 mGy-cm. COMPARISON: 03/09/2017. FINDINGS: BRAIN AND EXTRA-AXIAL SPACES: Moderate generalized atrophy. Moderate low density bilaterally in the deep white matter. No intra- or extra-axial hemorrhage. No evidence of acute infarct. No intracranial mass or mass effect. There is preservation of the alas/white matter interface. Posterior fossa structures are unremarkable. No hydrocephalus. Basal cisterns are patent. BONES/JOINTS: Unremarkable. No discrete lytic or blastic abnormalities. SINUSES: Unremarkable as visualized. Clear. MASTOID AIR CELLS: Unremarkable. Clear. ORBITS: Visualized globes, extraocular muscles, optic nerves and retrobulbar fat appear unremarkable. CT/Brain/Head without Contrast IMPRESSION: Moderate generalized atrophy. Moderate low density bilaterally in the deep white matter. This likely represents chronic small vessel ischemic changes in the deep white matter. No significant change. Electronically Signed: Amado Wilkins MD at 7:03 EST ,
--- NOTE | 2022-12-08 06:36 | EKG12_ITS ---
Test Reason : UNRESPONSIVE Blood Pressure : / mmHG Vent. Rate : 100 BPM Atrial Rate : 100 BPM P-R Int : 148 ms QRS Dur : 074 ms QT Int : 308 ms P-R-T Axes : 053 -26 005 degrees QTc Int : 397 ms Normal sinus rhythm Cannot rule out Anterior infarct , age undetermined Abnormal ECG Confirmed by MEERA LE, NAVEEN ([id number]), videotape editor JOSE G ELIZABETH ([id number]) on 12/11/2022 11:22:54 AM Referred By: Confirmed By:NAVEEN ESTES MD
--- NOTE | 2022-12-08 06:36 | RAD_ITS ---
EXAM: XR CHEST, 1 VIEW CLINICAL INDICATION: syncope TECHNIQUE: Frontal view of the chest. This report was created using [employer] report generation technology. COMPARISON: 11/22/2020. FINDINGS: LUNGS AND PLEURAL SPACES: Unremarkable. No consolidation or edema. No pneumothorax. No effusion. HEART: Unremarkable. Cardiac silhouette not enlarged. MEDIASTINUM: Central airways and mediastinal contour are unremarkable. BONES/JOINTS: Bilateral lower shoulder arthroplasty. SOFT TISSUES: Unremarkable. TUBES, LINES AND DEVICES: Epidural nerve stimulators. RAD/Chest 1 View (Portable) IMPRESSION: No acute cardiopulmonary abnormality. Electronically Signed: Amado Wilkins MD at 7:07 EST ,
[2022-12-08 08:10] LABS: Blood Gas Specimen Type VEN; VBG BASE EXCESS -3 mmol/L (-1.0-3.5); VBG Bicarbonate 21 mmol/L (22-26); VBG PO2 55 mmHg (25-40); VBG SO2 90 % (50-70); VBG TCO2 22 mmol/L (23-33); VBG pCO2 29.3 mmHg (41-51); VBG pH 7.46 (7.32-7.42)
[2022-12-08 08:19] LABS: Absolute Lymphocyte Count 0.12 X10^3/uL (0.83-4.51); Basophil# 0.02 X10^3/uL; Basophil% 0.2 % (0-1); Eosinophil# 0.15 X10^3/uL; Eosinophils% 1.6 % (0-5); Hematocrit 39.1 % (37-47); Hemoglobin 12.2 g/dL (12.0-15.0); Lymphocyte # 0.12 X10^3/ul (0.83-4.51); Lymphocyte % 1.3 % (19-41); Mean Corp Hgb Conc 31.2 g/dL (32-36); Mean Corpuscular Volume 96.1 fL (81-99); Mean Platelet Vol. 9.5 fl (6.2-12.0); Monocyte# 0.17 X10^3/uL; Monocyte% 1.8 % (0-10); NRBC Flagged by Analyzer 0 % (0-5); Neutrophil # 8.96 X10^3/uL (2.7-7.7); Neutrophil % 94.6 % (47-70); POSITIVE DIFFERENTIAL YES; Platelet Count 206 K/mm3 (150-450); RBC Distribution Width CV 12.8 % (11.6-14.6); RBC Distribution Width SD 45.7 fl (35.1-43.9); Red Blood Count 4.07 M/mm3 (4.2-5.4); White Blood Count 9.5 K/mm3 (4.4-11.0)
[2022-12-08 08:23] LABS: Differential Indicated SCAN CRITERIA MET
[2022-12-08 08:26] LABS: Mucous, Urine 0 SEEN /hpf (<or=2+)
[2022-12-08 08:36] LABS: Color, Urine Yellow (Yellow); Glucose, Dipstick Normal (Normal); Ketone-Dipstick 15 mg/dl (Negative); Leukocyte Esterase-Dipstick 500 /ul (Negative); Nitrite-Dipstick Positive (Negative); Occult Blood-Urine 250 /ul (Negative); Protein-Dipstick 100 mg/dl (Negative); Urine Bilirubin Dipstick Negative (Negative); Urine Clarity Sl. Cloudy (Clear); Urine Urobilinogen Normal (Normal)
[2022-12-08 08:46] LABS: AST(SGOT) 47 U/L (15-37); Alanine Aminotransfer ALT/SGPT 25 U/L (13-56); Albumin, Serum 3.2 g/dL (3.2-5.0); Alkaline Phosphatase 75 U/L (45-117); Anion Gap 12 (5-15); BUN 26 mg/dL (7-18); BUN/Creat Ratio 19.1 RATIO (10-20); Bilirubin, Direct 0.35 mg/dL (0.00-0.30); Calcium,Total 9.1 mg/dL (8.5-10.1); Chloride 102 mmol/L (98-107); Creatinine, Serum 1.36 mg/dL (0.55-1.02); EST Glomerular Filtration Rate 39 mL/min (>60); Est Glom Filt Rate - Afr Amer 47 mL/min (>60); Estimated Creatinine Clearance 33.32 ml/min; Globulin 3.5 g/dL (2.2-4.2); Glucose 112 mg/dL (74-106); Magnesium 1.8 mg/dL (1.6-2.6); Potassium 3.6 mmol/L (3.5-5.1); Protein, Total 6.7 g/dL (6.4-8.2); Sodium Level 137 mmol/L (136-145); Thyroid Stim Hormone (TSH) 2.99 uIU/mL (0.358-3.74)
[2022-12-08 08:54] LABS: Bacteria 1+ /hpf (None Seen); Red Blood Cells-Urine 25-50 SEEN /hpf (0-5); Squamous Epithelial Cells - UA 0-5 SEEN /hpf (5-10); White Blood Cells 25-50 SEEN /hpf (0-5)
[2022-12-08 08:57] LABS: Differential Comment SCANNED
--- NOTE | 2022-12-08 09:10 | EDS_ITS ---
HPI History of Present Illness Chief Complaint: Syncope Narrative Narrative: Patient is an 86-year-old female who is a DNR [employer] arrest who lives at home with her . She has a history of hypertension hypothyroidism peptic ulcer disease and osteoarthritis. EMS brought patient in and history is obtained from EMS and the patient's. Reportedly patient was recently diagnosed with a UTI from her family doctor and has had 1 day of antibiotic. Reportedly she was using the restroom last night/this morning when she called out time and her she did not feel well and then became unresponsive. states that there was no witnessed seizure-like activity and she did not fall off the toilet. However despite multiple attempts to wake her she was not responding and that is why called EMS. EMS states when they arrived the patient was protecting her airway and breathing on her own but that she was just minimally responsive and not answering her questions or following commands. However as they are recent hospital her mental status did improve. Upon arrival to the ER patient is obtunded but will awake to voice and just states she feels very tired and fatigued at this time [facility] Medical History Alcohol use Celiac disease Dietary restriction Gastric reflux History of depression History of GI bleed History of hiatal hernia History of rheumatic fever History of stress test Hoarseness Hypertension Non-smoker Osteoporosis Thyroid disease Walker as ambulation aid Wears hearing aid Home Medications amitriptyline 25 mg tablet 25 mg PO QHS 08/16/20 [History Last Taken 11/21/20] amlodipine 5 mg tablet 10 mg PO DAILY 08/16/20 [History Last Taken 04/25/21 04:00] azelastine 137 mcg (0.1 %) nasal spray aerosol 1 spray NASAL BID 08/16/20 [History Last Taken 11/22/20 04:30] fluticasone propionate 50 mcg/actuation nasal spray,suspension 1 spray NASAL BID allergies 08/16/20 [History Last Taken 11/22/20] 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 08/16/20 [History Last Taken 04/25/21 04:00] trazodone 50 mg tablet 50 mg PO QHS sleep 08/16/20 [History Last Taken 11/21/20] Cholecalciferol (Vitamin D3) [Vitamin D3] 50 iu PO QWEEK 11/09/20 [History Last Taken 11/21/20] ascorbic acid (vitamin C) 1,000 mg tablet 500 mg PO DAILY 11/09/20 [History Last Taken 11/21/20] tramadol 50 mg tablet 50 mg PO Q8H 11/09/20 [History Last Taken 11/22/20] albuterol sulfate 90 mcg/actuation aerosol inhaler 2 puff inhalation Q4H PRN PRN Shortness Of Breath ##1 11/12/20 [Rx Last Taken 2 Days Ago ~11/20/20] acetaminophen 500 mg tablet 500 mg PO Q6H PRN PRN Pain 1-10 Or Fever 11/22/20 [History Last Taken 11/22/20 04:30] furosemide 40 mg tablet 40 mg PO PRN PRN htn 11/22/20 [History Last Taken 2 Days Ago ~11/20/20] pantoprazole 40 mg tablet,delayed release 40 mg PO BID GERD 11/22/20 [History Last Taken 04/25/21 04:00] levothyroxine 75 mcg tablet 75 mcg PO DAILY@0600 #30 tabs 11/25/20 [Rx Last Taken 04/25/21 04:00] lisinopril 20 mg tablet 20 mg PO DAILY 01/30/21 [History Last Taken 04/25/21 04:00] miconazole nitrate 2 % topical powder 1 applic topical BID #85 grams 08/27/21 [R x Last Taken Unknown] tizanidine 2 mg capsule 2 mg PO Q8H PRN muscle spasticity #10 caps 02/07/22 [Rx Last Taken Unknown] Allergy/AdvReac Type Severity Reaction Status Date / Time gluten Allergy Food Verified 12/08/22 06:30 Allergy grass pollen-perennial rye, Allergy sinus Verified 12/08/22 06:30 standar pressure [grass poll-perennial rye,std] house dust AdvReac Other Verified 12/08/22 06:30 lactose AdvReac Food Verified 12/08/22 06:30 Allergy mold AdvReac Other Verified 12/08/22 06:30 Surgical History History of back surgery History of bilateral salpingo-oophorectomy (BSO) History of biopsy of bladder History of cholecystectomy History of cystostomy History of hysterectomy History of right knee surgery History of shoulder surgery Social History Smoking Status: Never smoker alcohol intake: never ROS ROS ED Constitutional Constitutional ED: Denies chills or fever(s) Eyes Eyes: Denies change in vision ENT ENT ED: Denies sore throat Cardiovascular Cardiovascular: Reports other Details: Positive syncope ; Denies chest pain, palpitations or racing heartbeat Respiratory/Chest Respiratory/Chest: Denies cough or dyspnea Gastrointestinal Gastrointestinal: Denies abdominal pain, diarrhea, nausea or vomiting Genitourinary Genitourinary ED: Reports dysuria and urinary frequency Musculoskeletal Musculoskeletal: Denies myalgias Integumentary Denies rash Neurologic Neurologic: Reports weakness; Denies headache(s) Hematologic/Lymphatic Hematologic/Lymphatic: Denies easy bleeding or easy bruising EXAM Physical Exam Const Vital Signs: 12/08/22 06:23 12/08/22 06:28 Temperature 97.4 F L Temperature Source Temporal Pulse Rate 122 H Respiratory Rate 12 Respiratory Effort Normal Respiratory Pattern Normal Blood Pressure 108/47 L Blood Pressure Mean 67 Pulse Ox 93 Oxygen Delivery Method Room Air Positive well nourished and well developed Constitutional Narrative: Patient is obtunded with a GCS of 13. she will wake to voice but quickly fall back asleep General Appearance ED: well developed HEENT Reports dry mucous membranes HEENT Narrative: No tongue or cheek biting noted No secondary changes to suggest infection in the posterior No airway edema or compromise Mouth ED: Yes dry mucous membranes Mouth: dry mucous membranes Eyes PERRL and EOMs intact bilaterally General Eye ED: Negative for scleral icterus Neck supple Neck Narrative: No nuchal rigidity or meningeal signs noted Chest Wall palpation of chest normal Resp normal respiratory effort and clear to auscultation bilaterally Resp Narrative: Breath sounds are diminished throughout but overall clear to auscultation without nasal flaring retractions tachypnea or accessory muscle use Cardio regular rhythm Rate: tachycardic and other Other Details: Radial pulses are +2-4 bilaterally are equal and symmetric GI normal to inspection, nondistended, normoactive bowel sounds, non-tender, non- distended and no masses GI Narrative: No voluntary guarding or rigidity no pulsatile mass or fluid wave Auscultation: normoactive bowel sounds Palpation: soft Extremity normal to inspection Extremity Narrative: No bony deformity or joint effusions noted Neuro oriented x3 and CN's II-XII intact bilaterally Neuro Narrative: Patient is obtunded with GCS of 13. She received this because she takes voice stimulation to open her eyes and initially was unaware where she was at. However cranial nerves II through XII are grossly intact without focal neurologic deficit. Sensorium / Orientation: lethargic Psych Psych Narrative: Patient has a flat affect Skin no rashes or lesions noted Skin Narrative: Skin turgor is increased General Skin Exam: Negative for jaundice MDM MDM MDM Narrative Medical decision making narrative: Patient arrived to the ER slightly obtunded but was afebrile and normotensive. She is moving all extremities and there is no obvious focal neurologic deficit and therefore I felt there was no need to activate a stroke alert. There is concern that her syncopal event could have into a cardiac dysrhythmia or infectious process such as UTI or even hepatic encephalopathy or CO2 retention so a work-up was started. The patient's blood work revealed no leukocytosis or acute anemia. She has no signs of acute kidney injury. No obvious electrolyte derangement is present either and her TSH is within normal range. VBG was obtained which shows a slightly decreased CO2 at 29 which would not cause any depression to her mental status. EKG showed sinus rhythm and there was no ectopy or dysrhythmia noted on the monitor. Her urine does show changes consistent with infection which is consistent with her recent history but there is no obvious signs of acute kidney injury or urosepsis from it. I discussed with patient possibly returning home but at this point she states that she is too fatigued to ambulate and return home and states he does not feel comfortable with her returning home in this state. Therefore the case will be discussed with medicine service for admission secondary to generalized fatigue secondary to UTI and possible syncopal event. After reviewing the case they do agree to accept her at this time. The plan of care was discussed with the patient and her and they are agreeable to it History & Record Review Discussion w/independent historian: EMS personnel, Patient and Significant other Lab Data Attestation: I reviewed the patient's lab results. Labs: Laboratory Results - last 24 hr 12/08/22 12/08/22 12/08/22 08:06 08:06 08:06 WBC 9.5 RBC 4.07 L Hgb 12.2 Hct 39.1 MCV 96.1 MCH 30.0 MCHC 31.2 L RDW Std Deviation 45.7 H RDW Coeff of Laury 12.8 Plt Count 206 MPV 9.5 Immature Gran % (Auto) 0.500 Neut % (Auto) 94.6 H Lymph % (Auto) 1.3 L Sweet Grass % (Auto) 1.8 Eos % (Auto) 1.6 Baso % (Auto) 0.2 Absolute Neuts (auto) 9.0 H Absolute Lymphs (auto) 0.12 L Nucleated RBC % 0 Differential Comment SCANNED Sodium 137 Potassium 3.6 Chloride 102 Carbon Dioxide 23.0 Anion Gap 12 BUN 26 H Creatinine 1.36 H Estim Creat Clear Calc 33.32 Est GFR (MDRD) Af Amer 47 L Est GFR (MDRD) Non-Af 39 L BUN/Creatinine Ratio 19.1 Glucose 112 H Calcium 9.1 Magnesium 1.8 Total Bilirubin 1.10 H Direct Bilirubin 0.35 H AST 47 H ALT 25 Alkaline Phosphatase 75 Ammonia 11.0 Total Protein 6.7 Albumin 3.2 Globulin 3.5 TSH 2.99 Urine Color Urine Clarity Urine pH Ur Specific Warren Urine Protein Urine Glucose (UA) Urine Ketones Urine Occult Blood Urine Nitrite Urine Bilirubin Urine Urobilinogen Ur Leukocyte Esterase Urine RBC Urine WBC Ur Squamous Epith Cells Urine Bacteria Urine Mucus 12/08/22 08:20 WBC RBC Hgb Hct MCV MCH MCHC RDW Std Deviation RDW Coeff of Laury Plt Count MPV Immature Gran % (Auto) Neut % (Auto) Lymph % (Auto) Sweet Grass % (Auto) Eos % (Auto) Baso % (Auto) Absolute Neuts (auto) Absolute Lymphs (auto) Nucleated RBC % Differential Comment Sodium Potassium Chloride Carbon Dioxide Anion Gap BUN Creatinine Estim Creat Clear Calc Est GFR (MDRD) Af Amer Est GFR (MDRD) Non-Af BUN/Creatinine Ratio Glucose Calcium Magnesium Total Bilirubin Direct Bilirubin AST ALT Alkaline Phosphatase Ammonia Total Protein Albumin Globulin TSH Urine Color Yellow Urine Clarity Sl. Cloudy Urine pH 6.0 Ur Specific Warren 1.010 Urine Protein 100 H Urine Glucose (UA) Normal Urine Ketones 15 H Urine Occult Blood 250 H Urine Nitrite Positive H Urine Bilirubin Negative Urine Urobilinogen Normal Ur Leukocyte Esterase 500 H Urine RBC 25-50 SEEN Urine WBC 25-50 SEEN Ur Squamous Epith Cells 0-5 SEEN Urine Bacteria 1+ Urine Mucus 0 SEEN ABG Data ABG results: ABG 12/08/22 08:03 Specimen Type PHIL VBG pH 7.46 H VBG pO2 55 H VBG HCO3 21 L VBG Total CO2 22 L VBG O2 Sat (Calc) 90 H VBG Base Excess -3 L POC Mix VBG pCO2 Pt Tmp 29.3 L Radiography Diagnostic Testing: Clinical Impression(s) from Imaging Studies Brain CT 12/08/22 06:36 IMPRESSION: Moderate generalized atrophy. Moderate low density bilaterally in the deep white matter. This likely represents chronic small vessel ischemic changes in the deep white matter. No significant change. Electronically Signed: Amado Wilkins MD at 7:03 EST Reading Location ID and State: [id number] / [employer] Tel , Service support , Chest X-Ray 12/08/22 06:36 IMPRESSION: No acute cardiopulmonary abnormality. Electronically Signed: Amado Wilkins MD at 7:07 EST , Chest x-ray as interpreted by the emergency medicine physician reveals no acute infiltrate pneumothorax or pleural effusion Discharge Plan Dx/Rx/DC Orders Clinical Impression: Urinary tract infection, Dehydration, mild, Syncope, Generalized weakness Disposition Disposition: [facility]
[2022-12-08] MEDS: Ceftriaxone 1 GM/50 ML BAG IV (09:47)
--- NOTE | 2022-12-08 10:13 | HP.PCM.HOS_ITS ---
HPI - General General Date of Admission: 12/08/22 Date of Service: 12/08/22 Chief Complaint: Altered level of consciousness HPI Narrative KAELA ALDANA, is a 86 F with history of hypothyroidism, hypertension, osteoarthritis, multiple urinary tract infections, GERD who presented to [facility] 12/08/2022 after she had decreased consciousness while sitting on the toilet. She reports that she was in the bathroom and called for her to bring her a change of underwear and then per report she was no longer responding however did not fall over or slump. The next thing she remembers was being in the emergency department. On arrival she was slightly confused however that quickly improved however she remained very sleepy. She was seen for urinary tract infection yesterday and was started on what appears to have been M acrobid but continued to have dysuria. Also has not been drinking or eating very well. In the ED did have UA still suggestive of UTI and was very weak and tired, hospitalist consulted for admission. not at bedside at time of evaluation, patient quickly falls back asleep but is able to wake up and answer questions appropriately. She reports that she does not remember anything from the. On the toilet until presenting here. Only notable positive ROS has been decreased p.o. with burning on urination and she said she thinks she may have had an episode of diarrhea last night but she does not remember. In the ED white count 9.5, VBG with pH of 7.46 with HCO3 21 and CO2 22 on ABG, BUN 26 with creatinine of 1.36 and her baseline appears closer to 1. She additionally had bili of 1.10 with a T. bili of 0.35 and AST of 47 ALT and alk phos within normal limits. TSH 2.99. BP stable and heart rate 80s to 90s primarily. Initially difficult to establish IV access but 1 was established in right foot and she was able to receive fluids and Rocephin. [facility] Medical History Alcohol use Celiac disease Dietary restriction Gastric reflux History of depression History of GI bleed History of hiatal hernia History of rheumatic fever History of stress test Hoarseness Hypertension Non-smoker Osteoporosis Thyroid disease Walker as ambulation aid Wears hearing aid Home Medications amitriptyline 25 mg tablet 25 mg PO QHS 08/16/20 [History Last Taken 12/07/22] amlodipine 5 mg tablet 5 mg PO DAILY BP 08/16/20 [History Last Taken 12/06/22] azelastine 137 mcg (0.1 %) nasal spray aerosol 1 spray NASAL BID SINUS 08/16/20 [History Last Taken 12/07/22] fluticasone propionate 50 mcg/actuation nasal spray,suspension 1 spray NASAL BID allergies 08/16/20 [History Last Taken 12/07/22] 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 08/16/20 [History Last Taken 12/08/22] trazodone 50 mg tablet 50 mg PO QHS sleep 08/16/20 [History Last Taken 12/07/22] tramadol 50 mg tablet 50 mg PO Q8H 11/09/20 [History Last Taken 12/08/22] acetaminophen 500 mg tablet 500 mg PO Q6H PRN PRN Pain 1-10 Or Fever 11/22/20 [History Last Taken 12/07/22] furosemide 40 mg tablet 40 mg PO DAILY PRN PRN htn 11/22/20 [History Last Taken 2 Days Ago ~11/20/20] pantoprazole 40 mg tablet,delayed release 40 mg PO BID GERD 11/22/20 [History Last Taken 12/07/22] levothyroxine 75 mcg tablet 75 mcg PO DAILY@0600 #30 tabs 11/25/20 [Rx Last Taken 12/08/22] lisinopril 20 mg tablet 20 mg PO DAILY 01/30/21 [History Last Taken 12/07/22] estradiol 0.01% (0.1 mg/gram) vaginal cream 1 applic vaginal MOWEFR HORMONES 12/08/22 [History Last Taken 12/06/22] nitrofurantoin monohydrate/macrocrystals 100 mg capsule 100 mg PO BID UTI 12/08/22 [History Last Taken 12/07/22] Allergy/AdvReac Type Severity Reaction Status Date / Time gluten Allergy Food Verified 12/08/22 06:30 Allergy grass pollen-perennial rye, Allergy sinus Verified 12/08/22 06:30 standar pressure [grass poll-perennial rye,std] house dust AdvReac Other Verified 12/08/22 06:30 lactose AdvReac Food Verified 12/08/22 06:30 Allergy mold AdvReac Other Verified 12/08/22 06:30 Surgical History History of back surgery History of bilateral salpingo-oophorectomy (BSO) History of biopsy of bladder History of cholecystectomy History of cystostomy History of hysterectomy History of right knee surgery History of shoulder surgery Social History Smoking Status: Never smoker alcohol intake: never ROS ROS Narrative General: Feels generally very tired but oriented HENT: Denies headache, denies stuffy nose, denies sore throat EYES: Denies changes in vision Resp: Denies cough, denies shortness of breath Cardiac: Denies chest pain GI: Thinks she may have had an episode of diarrhea last night but does not remember : Has had some discomfort with urination Extremity: Denies swelling MSK: Generally weak Neuro: Denies any numbness, denies tingling Heme: Denies any bleeding or bruising Skin: Denies rashes Psychiatric: Tired Vital Signs Vital Signs Vital Signs: 12/08/22 06:23 12/08/22 06:28 12/08/22 08:15 Temperature 97.4 F L Temperature Source Temporal Pulse Rate 122 H Respiratory Rate 12 Respiratory Effort Normal Respiratory Pattern Normal Blood Pressure 108/47 L 133/61 H Blood Pressure Mean 67 85 Pulse Ox 93 Oxygen Delivery Method Room Air 12/08/22 09:00 Temperature Temperature Source Pulse Rate 96 Respiratory Rate Respiratory Effort Respiratory Pattern Blood Pressure 127/49 H Blood Pressure Mean 75 Pulse Ox Oxygen Delivery Method Weight Weight: 69.8 kg Body Mass Index (BMI) 31.1 Physical Exam Narrative General: Oriented but sleepy HEENT: Atraumatic, normocephalic, dry mucous membranes Eyes: Anicteric, normal conjunctiva, extraocular movements grossly intact Neck: Supple Respiratory: Clear to auscultation bilaterally, normal respiratory effort Cardiovascular: Regular rate and rhythm GI: Soft, nontender, nondistended Extremities: No edema Musculoskeletal: Moving all extremities Neuro: No overt focal neurological deficits but has difficulty participating in neuro exam due to feeling too tired Skin: No rashes appreciated Psych: Cooperative Results Lab / Micro Data Result Diagrams: 12/08/22 08:06 12/08/22 08:06 Labs: Laboratory Results - last 24 hr 12/08/22 08:06: WBC 9.5, RBC 4.07 L, Hgb 12.2, Hct 39.1, MCV 96.1, MCH 30.0, MCHC 31.2 L, RDW Std Deviation 45.7 H, RDW Coeff of [place]ury 12.8, Plt Count 206, MPV 9.5, Immature Gran % (Auto) 0.500, Neut % (Auto) 94.6 H, Lymph % (Auto) 1.3 L, [place] % (Auto) 1.8, Eos % (Auto) 1.6, Baso % (Auto) 0.2, Absolute Neuts (auto) 9.0 H, Absolute Lymphs (auto) 0.12 L, Nucleated RBC % 0, Differential Comment SCANNED 12/08/22 08:06: Sodium 137, Potassium 3.6, Chloride 102, Carbon Dioxide 23.0, Anion Gap 12, BUN 26 H, Creatinine 1.36 H, Estim Creat Clear Calc 33.32, Est GFR (MDRD) Af Amer 47 L, Est GFR (MDRD) Non-Af 39 L, BUN/Creatinine Ratio 19.1, Glucose 112 H, Calcium 9.1, Magnesium 1.8, Total Bilirubin 1.10 H, Direct Bilirubin 0.35 H, AST 47 H, ALT 25, Alkaline Phosphatase 75, Total Protein 6.7, Albumin 3.2, Globulin 3.5, TSH 2.99 12/08/22 08:06: Ammonia 11.0 12/08/22 08:20: Urine Color Yellow, Urine Clarity Sl. Cloudy, Urine pH 6.0, Ur Specific [place] 1.010, Urine Protein 100 H, Urine Glucose (UA) Normal, Urine Ketones 15 H, Urine Occult Blood 250 H, Urine Nitrite Positive H, Urine Bilirubin Negative, Urine Urobilinogen Normal, Ur Leukocyte Esterase 500 H, Urine RBC 25-50 SEEN, Urine WBC 25-50 SEEN, Ur Squamous Epith Cells 0-5 SEEN, Urine Bacteria 1+, Urine Mucus 0 SEEN ABG Data ABG results: ABG 12/08/22 08:03 Specimen Type PHIL VBG pH 7.46 H VBG pO2 55 H VBG HCO3 21 L VBG Total CO2 22 L VBG O2 Sat (Calc) 90 H VBG Base Excess -3 L POC Mix VBG pCO2 Pt Tmp 29.3 L Radiology Impression Brain CT 12/08/22 06:36 IMPRESSION: Moderate generalized atrophy. Moderate low density bilaterally in the deep white matter. This likely represents chronic small vessel ischemic changes in the deep white matter. No significant change. Electronically Signed: Amado Wilkins MD at 7:03 EST , Chest X-Ray 12/08/22 06:36 IMPRESSION: No acute cardiopulmonary abnormality. Electronically Signed: Amado Wilkins MD at 7:07 EST , Assessment & Plan Assessment/Plan (1) Urinary tract infection: (2) Dehydration, mild: (3) Generalized weakness: (4) Altered level of consciousness: PLAN: Plan #Altered level of consciousness -Reportedly brought her a pad and underwear in the bathroom and she was going to put it on and does not remember anything until coming to the hospital but did not slump over or fall -Was initially somewhat confused in the hospital however now reports just being tired -CT head in the ED with chronic changes -EKG appeared to be sinus rhythm but has somewhat of a tremor at baseline so there is artifact though RR intervals are regular -Admit to telemetry -VBG with very minimally decreased HCO3 and very minimally decreased CO2 with a pH of 7.46, suspect contraction alkalosis -Does not appear to be in respiratory distress -We will get EEG, TSH within normal limits -Was diagnosed with UTI yesterday and has had 1 dose of antibiotics which she and her are unsure of which (appears to be Macrobid based on med rec) and she does appear profoundly dehydrated as mucous membranes are dry and she has increased BUN and creatinine -Urine culture pending -Was given Rocephin in the ED however reviewing previous urine culture she has grown multidrug-resistant organisms including Pseudomonas, will switch to Zosyn for broader coverage pending urine culture results -We will hydrate -Additionally is on tramadol as needed and recently filled gabapentin as well and suspect with decreased GFR it is more difficult to clear gabapentin which may be contributing to her excessive sleepiness at this time -We will hold tramadol and gabapentin at this time #KATT on CKD stage III unclear subtype -Given dry mucous membranes appears to be prerenal -Hold lisinopril -We will hydrate #Generalized weakness -PT/OT #Hypothyroidism -Continue Synthroid -TSH in the a.m. #DVT ppx: Donaldo Khan MD Time spent in the patient's overall evaluation,decision-making process, review of diagnostic data, adjustment of management, discussion with other providers, nursing nursing and ancillary staff involved in patient's care documentation, 60 minutes Charges/Coding Visit Charges Inpatient E&M: 80774 Init Hosp L2
[2022-12-08] MEDS: 0.9% Normal Saline 1,000 ML 100 ML IV (11:39)
--- NOTE | 2022-12-08 14:25 | TELEMED_ITS ---
[facility] Tele[facility] has confirmed receipt of a request for visit. This document confirms receipt of the order initiating the consult. To find the results of the consultation, please view the patient's reports for the scanned Telemed Consult.
[2022-12-08] MEDS: Fluticasone 0.05% 1 SPRAY NASAL.SRY NASAL (21:32)
[2022-12-08] MEDS: Pantoprazole Sodium 40 MG Tablet PO (21:33)
[2022-12-08] MEDS: Acetaminophen 325 MG Tablet 650 MG PO (21:50)
[2022-12-08] MEDS: traZODone 50 MG Tablet PO (21:50)
[2022-12-09] VITALS (7 sets, daily range): BP systolic 131–143; BP diastolic 61–81; PULSE 83–93; RESP 16–18; TEMP 36.8–36.9; O2SAT 95–100
[2022-12-09] MEDS: 0.9% Normal Saline 1,000 ML 100 ML IV (03:46)
[2022-12-09 06:38] LABS: Absolute Lymphocyte Count 0.26 X10^3/uL (0.83-4.51); Absolute Neutrophil Count 3.6 X10^3/uL (2.0-7.7); Basophil# 0.02 X10^3/uL; Basophil% 0.4 % (0-1); Eosinophil# 0.44 X10^3/uL; Eosinophils% 9.6 % (0-5); Hematocrit 30.8 % (37-47); Hemoglobin 9.8 g/dL (12.0-15.0); Lymphocyte # 0.26 X10^3/ul (0.83-4.51); Lymphocyte % 5.7 % (19-41); Mean Corp Hgb Conc 31.8 g/dL (32-36); Mean Corpuscular Hgb 30.4 pg (27.0-32.0); Mean Corpuscular Volume 95.7 fL (81-99); Mean Platelet Vol. 9.4 fl (6.2-12.0); Monocyte# 0.26 X10^3/uL; Monocyte% 5.7 % (0-10); NRBC Flagged by Analyzer 0 % (0-5); Neutrophil # 3.61 X10^3/uL (2.7-7.7); Neutrophil % 78.4 % (47-70); POSITIVE DIFFERENTIAL YES; Platelet Count 190 K/mm3 (150-450); RBC Distribution Width CV 12.9 % (11.6-14.6); RBC Distribution Width SD 45.1 fl (35.1-43.9); Red Blood Count 3.22 M/mm3 (4.2-5.4); White Blood Count 4.6 K/mm3 (4.4-11.0)
[2022-12-09 06:59] LABS: Differential Indicated SCAN CRITERIA MET
[2022-12-09] MEDS: Levothyroxine 75 MCG Tablet PO (07:00)
[2022-12-09 07:02] LABS: Differential Comment SCANNED
[2022-12-09 07:24] LABS: ALB/GLOB Ratio 0.9 RATIO (0.9-2.4); AST(SGOT) 33 U/L (15-37); Alanine Aminotransfer ALT/SGPT 25 U/L (13-56); Albumin, Serum 2.5 g/dL (3.2-5.0); Alkaline Phosphatase 59 U/L (45-117); Anion Gap 8 (5-15); BUN 19 mg/dL (7-18); BUN/Creat Ratio 21.1 RATIO (10-20); Calcium,Total 8.2 mg/dL (8.5-10.1); Chloride 110 mmol/L (98-107); EST Glomerular Filtration Rate 63 mL/min (>60); Est Glom Filt Rate - Afr Amer 76 mL/min (>60); Estimated Creatinine Clearance 47.84 ml/min; Globulin 2.9 g/dL (2.2-4.2); Glucose 86 mg/dL (74-106); Magnesium 1.9 mg/dL (1.6-2.6); Potassium 3.4 mmol/L (3.5-5.1); Protein, Total 5.4 g/dL (6.4-8.2); Sodium Level 140 mmol/L (136-145)
--- NOTE | 2022-12-09 08:20 | PCM.PN.HOSP ---
Reason for Visit Reason for Visit: Diagnoses Dehydration (12/08/22) Urinary tract infection, site not specified (12/08/22) Transient alteration of awareness (12/08/22) Weakness (12/08/22) Subjective Subjective Feeling better than she was but still diffusely weak. Objective Data Objective Data Vital Signs: Vital Signs Temp Pulse Resp BP Pulse Ox O2 Del Method 98.2 F 90 18 135/61 H 96 Room Air 12/09/22 03:45 12/09/22 03:45 12/09/22 03:45 12/09/22 03:45 12/09/22 03:45 12/09/22 03:45 Oxygen Delivery Method Room Air Weight: 66.315 kg Body Mass Index (BMI) 30.5 Intake & Output: Intake and Output for Last 24 Hours 12/07/22 12/08/22 12/09/22 23:59 23:59 23:59 Intake Total 1116.67 / 1356.67 1253.33 / 1253.33 Balance 1116.67 / 1356.67 1253.33 / 1253.33 Lab / Micro Data Result Diagrams: 12/09/22 05:51 12/09/22 05:51 Labs: Laboratory Results - last 24 hr 12/08/22 08:06: WBC 9.5, RBC 4.07 L, Hgb 12.2, Hct 39.1, MCV 96.1, MCH 30.0, MCHC 31.2 L, RDW Std Deviation 45.7 H, RDW Coeff of Laury 12.8, Plt Count 206, MPV 9.5, Immature Gran % (Auto) 0.500, Neut % (Auto) 94.6 H, Lymph % (Auto) 1.3 L, [place] % (Auto) 1.8, Eos % (Auto) 1.6, Baso % (Auto) 0.2, Absolute Neuts (auto) 9.0 H, Absolute Lymphs (auto) 0.12 L, Nucleated RBC % 0, Differential Comment SCANNED 12/08/22 08:06: Sodium 137, Potassium 3.6, Chloride 102, Carbon Dioxide 23.0, Anion Gap 12, BUN 26 H, Creatinine 1.36 H, Estim Creat Clear Calc 33.32, Est GFR (MDRD) Af Amer 47 L, Est GFR (MDRD) Non-Af 39 L, BUN/Creatinine Ratio 19.1, Glucose 112 H, Calcium 9.1, Magnesium 1.8, Total Bilirubin 1.10 H, Direct Bilirubin 0.35 H, AST 47 H, ALT 25, Alkaline Phosphatase 75, Total Protein 6.7, Albumin 3.2, Globulin 3.5, TSH 2.99 12/08/22 08:06: Ammonia 11.0 12/08/22 08:20: Urine Color Yellow, Urine Clarity Sl. Cloudy, Urine pH 6.0, Ur Specific [place] 1.010, Urine Protein 100 H, Urine Glucose (UA) Normal, Urine Ketones 15 H, Urine Occult Blood 250 H, Urine Nitrite Positive H, Urine Bilirubin Negative, Urine Urobilinogen Normal, Ur Leukocyte Esterase 500 H, Urine RBC 25-50 SEEN, Urine WBC 25-50 SEEN, Ur Squamous Epith Cells 0-5 SEEN, Urine Bacteria 1+, Urine Mucus 0 SEEN 12/09/22 05:51: WBC 4.6, RBC 3.22 L, Hgb 9.8 L, Hct 30.8 L, MCV 95.7, MCH 30.4, MCHC 31.8 L, RDW Std Deviation 45.1 H, RDW Coeff of Laury 12.9, Plt Count 190, MPV 9.4, Immature Gran % (Auto) 0.200, Neut % (Auto) 78.4 H, Lymph % (Auto) 5.7 L, [place] % (Auto) 5.7, Eos % (Auto) 9.6 H, Baso % (Auto) 0.4, Absolute Neuts (auto) 3.6, Absolute Lymphs (auto) 0.26 L, Nucleated RBC % 0, Differential Comment SCANNED 12/09/22 05:51: Sodium 140, Potassium 3.4 L, Chloride 110 H, Carbon Dioxide 22.0, Anion Gap 8, BUN 19 H, Creatinine 0.90, Estim Creat Clear Calc 47.84, Est GFR (MDRD) Af Amer 76, Est GFR (MDRD) Non-Af 63, BUN/Creatinine Ratio 21.1 H, Glucose 86, Calcium 8.2 L, Magnesium 1.9, Total Bilirubin 0.70, AST 33, ALT 25, Alkaline Phosphatase 59, Total Protein 5.4 L, Albumin 2.5 L, Globulin 2.9, Albumin/Globulin Ratio 0.9, TSH 1.20 Physical Exam Narrative General: Alert, oriented HEENT: Atraumatic, normocephalic, moist mucous membranes Eyes: Anicteric, normal conjunctiva, extraocular movements grossly intact Neck: Supple Respiratory: Clear to auscultation bilaterally, normal respiratory effort Cardiovascular: Regular rate and rhythm GI: Soft, nontender, nondistended Extremities: No edema Musculoskeletal: Moving all extremities Neuro: No overt focal neurological deficits Skin: No rashes appreciated Psych: Cooperative Assessment & Plan Assessment/Plan (1) Urinary tract infection: (2) Dehydration, mild: (3) Generalized weakness: (4) Altered level of consciousness: PLAN: Plan #Acute metabolic encephalopathy 2/2 UTI -Reportedly brought her a pad and underwear in the bathroom and she was going to put it on and does not remember anything until coming to the hospital but did not slump over or fall -Was initially somewhat confused in the hospital however now reports just being tired -CT head in the ED with chronic changes -EKG appeared to be sinus rhythm but has somewhat of a tremor at baseline so there is artifact though RR intervals are regular -Admit to telemetry -VBG with very minimally decreased HCO3 and very minimally decreased CO2 with a pH of 7.46, suspect contraction alkalosis -Does not appear to be in respiratory distress -We will get EEG, TSH within normal limits -Was diagnosed with UTI yesterday and has had 1 dose of antibiotics which she and her are unsure of which (appears to be Macrobid based on med rec) and she does appear profoundly dehydrated as mucous membranes are dry and she has increased BUN and creatinine -Urine culture pending -Was given Rocephin in the ED however reviewing previous urine culture she has grown multidrug-resistant organisms including Pseudomonas, will switch to Zosyn for broader coverage pending urine culture results -We will hydrate -Additionally is on tramadol as needed and recently filled gabapentin as well and suspect with decreased GFR it is more difficult to clear gabapentin which may be contributing to her excessive sleepiness at this time -We will hold tramadol and gabapentin at this time -3/4- mental status improved, likely 2/2 UTI, has grown MDRO in the past, sensitivities pending. Continue zosyn at this time as she is improving. Generally weak #Acute on chronic anemia -12.2->9.8 overnight -Unclear if dilutional, no overt GI bleeding however cannot r/o bleed -FOBT ordered #KATT resolved -Continue to hold lisinopril -s/p IVF -encourage PO #Generalized weakness -PT/OT #Hypothyroidism -Continue Synthroid -TSH wnl #DVT ppx: Lovenox Huma Khan MD Time spent in the patient's overall evaluation,decision-making process, review of diagnostic data, adjustment of management, discussion with other providers, nursing nursing and ancillary staff involved in patient's care documentation, 30 minutes Charges/Coding Visit Charges Inpatient E&M: 40542 Subs Hosp L2
[2022-12-09] MEDS: Enoxaparin 30 MG/0.3 ML Syringe SC (10:48)
[2022-12-09] MEDS: Pantoprazole Sodium 40 MG Tablet PO ×2 (10:48→21:30)
[2022-12-09] MEDS: amLODIPine 5 MG Tablet PO (10:48)
[2022-12-09] MEDS: Fluticasone 0.05% 1 SPRAY NASAL.SRY NASAL ×2 (10:49→21:30)
[2022-12-09] MEDS: Potassium Chloride Oral Tablet 20 MEQ 40 MEQ PO (10:54)
[2022-12-09] MEDS: traZODone 50 MG Tablet PO (21:30)
[2022-12-09] MEDS: Acetaminophen 325 MG Tablet 650 MG PO (21:36)
[2022-12-09] MEDS: MENTHOL 226.8 GM JAR 1 APPLIC TOPICAL (23:22)
[2022-12-10 03:06] VITALS: BP 138/66; PULSE 85; RESP 16; TEMP 37.1; O2SAT 93
[2022-12-10] MEDS: Acetaminophen 325 MG Tablet 650 MG PO ×2 (04:02→10:30)
[2022-12-10] MEDS: Levothyroxine 75 MCG Tablet PO (05:18)
[2022-12-10 06:58] LABS: Absolute Lymphocyte Count 0.44 X10^3/uL (0.83-4.51); Absolute Neutrophil Count 3.2 X10^3/uL (2.0-7.7); Basophil# 0.02 X10^3/uL; Basophil% 0.5 % (0-1); Eosinophil# 0.34 X10^3/uL; Eosinophils% 7.7 % (0-5); Hematocrit 31.7 % (37-47); Hemoglobin 10.2 g/dL (12.0-15.0); Lymphocyte # 0.44 X10^3/ul (0.83-4.51); Lymphocyte % 9.9 % (19-41); Mean Corp Hgb Conc 32.2 g/dL (32-36); Mean Corpuscular Hgb 30.2 pg (27.0-32.0); Mean Corpuscular Volume 93.8 fL (81-99); Mean Platelet Vol. 9.4 fl (6.2-12.0); Monocyte# 0.38 X10^3/uL; Monocyte% 8.6 % (0-10); NRBC Flagged by Analyzer 0 % (0-5); Neutrophil # 3.24 X10^3/uL (2.7-7.7); Neutrophil % 73.1 % (47-70); POSITIVE DIFFERENTIAL YES; Platelet Count 228 K/mm3 (150-450); RBC Distribution Width CV 12.7 % (11.6-14.6); RBC Distribution Width SD 43.7 fl (35.1-43.9); Red Blood Count 3.38 M/mm3 (4.2-5.4); White Blood Count 4.4 K/mm3 (4.4-11.0)
[2022-12-10 07:00] LABS: Differential Indicated SCAN CRITERIA MET
[2022-12-10 07:20] LABS: Anion Gap 6 (5-15); BUN 9 mg/dL (7-18); BUN/Creat Ratio 13.1 RATIO (10-20); Calcium,Total 8.7 mg/dL (8.5-10.1); Chloride 107 mmol/L (98-107); Creatinine, Serum 0.68 mg/dL (0.55-1.02); EST Glomerular Filtration Rate 87 mL/min (>60); Est Glom Filt Rate - Afr Amer 105 mL/min (>60); Estimated Creatinine Clearance 43.06 ml/min; Glucose 93 mg/dL (74-106); Potassium 3.1 mmol/L (3.5-5.1); Sodium Level 137 mmol/L (136-145)
--- NOTE | 2022-12-10 07:51 | PN.HOSP_ITS ---
Reason for Visit Reason for Visit: Diagnoses Dehydration (12/09/22) Urinary tract infection, site not specified (12/09/22) Transient alteration of awareness (12/09/22) Weakness (12/09/22) Objective Data Objective Data Vital Signs: Vital Signs Temp Pulse Resp BP Pulse Ox O2 Del Method 98.8 F 85 16 138/66 H 93 Room Air 12/10/22 03:06 12/10/22 03:06 12/10/22 03:06 12/10/22 03:06 12/10/22 03:06 12/10/22 03:06 Oxygen Delivery Method Room Air Weight: 66.315 kg Body Mass Index (BMI) 30.5 Intake & Output: Intake and Output for Last 24 Hours 12/08/22 12/09/22 12/10/22 23:59 23:59 23:59 Intake Total 1116.67 / 1356.67 3193.33 / 3193.33 50 / 50 Output Total 500 / 500 Balance 1116.67 / 1356.67 2693.33 / 2693.33 50 / 50 Lab / Micro Data Result Diagrams: 12/10/22 05:54 12/10/22 05:54 Labs: Laboratory Results - last 24 hr 12/10/22 05:54: WBC 4.4, RBC 3.38 L, Hgb 10.2 L, Hct 31.7 L, MCV 93.8, MCH 30.2, MCHC 32.2, RDW Std Deviation 43.7, RDW Coeff of Laury 12.7, Plt Count 228, MPV 9.4, Immature Gran % (Auto) 0.200, Neut % (Auto) 73.1 H, Lymph % (Auto) 9.9 L, [place] % (Auto) 8.6, Eos % (Auto) 7.7 H, Baso % (Auto) 0.5, Absolute Neuts (auto) 3.2, Absolute Lymphs (auto) 0.44 L, Nucleated RBC % 0 12/10/22 05:54: Sodium 137, Potassium 3.1 L, Chloride 107, Carbon Dioxide 24.0, Anion Gap 6, BUN 9, Creatinine 0.68, Estim Creat Clear Calc 43.06, Est GFR (MDRD) Af Amer 105, Est GFR (MDRD) Non-Af 87, BUN/Creatinine Ratio 13.1, Glucose 93, Calcium 8.7 Micro: Microbiology 12/08/22 08:20 Urine, Catheterized Urine Culture - Preliminary Presumptive E. coli 12/09/22 17:36 Stool Stool Occult Blood (SUZANNE) - Final Physical Exam Narrative General: Alert, oriented HEENT: Atraumatic, normocephalic, moist mucous membranes Eyes: Anicteric, normal conjunctiva, extraocular movements grossly intact Neck: Supple Respiratory: Clear to auscultation bilaterally, normal respiratory effort Cardiovascular: Regular rate and rhythm GI: Soft, nontender, nondistended Extremities: No edema Musculoskeletal: Moving all extremities Neuro: No overt focal neurological deficits Skin: No rashes appreciated Psych: Cooperative Assessment & Plan Assessment/Plan (1) Urinary tract infection: (2) Dehydration, mild: (3) Generalized weakness: (4) Altered level of consciousness: PLAN: Plan #Acute metabolic encephalopathy 2/2 UTI -Reportedly brought her a pad and underwear in the bathroom and she was going to put it on and does not remember anything until coming to the hospital but did not slump over or fall -Was initially somewhat confused in the hospital however now reports just being tired -CT head in the ED with chronic changes -EKG appeared to be sinus rhythm but has somewhat of a tremor at baseline so there is artifact though RR intervals are regular -Admit to telemetry -VBG with very minimally decreased HCO3 and very minimally decreased CO2 with a pH of 7.46, suspect contraction alkalosis -Does not appear to be in respiratory distress -We will get EEG, TSH within normal limits -Was diagnosed with UTI yesterday and has had 1 dose of antibiotics which she and her are unsure of which (appears to be Macrobid based on med rec) an d she does appear profoundly dehydrated as mucous membranes are dry and she has increased BUN and creatinine -Urine culture pending -Was given Rocephin in the ED however reviewing previous urine culture she has grown multidrug-resistant organisms including Pseudomonas, will switch to Zosyn for broader coverage pending urine culture results -We will hydrate -Additionally is on tramadol as needed and recently filled gabapentin as well and suspect with decreased GFR it is more difficult to clear gabapentin which may be contributing to her excessive sleepiness at this time -We will hold tramadol and gabapentin at this time -3/4- mental status improved, likely 2/2 UTI, has grown MDRO in the past, sensitivities pending. Continue zosyn at this time as she is improving. Generally weak -12/10: E. coli growing with resistance to ampicillin, Bactrim, intermediate resistance to ampicillin sulbactam. Is sensitive to Zosyn #Acute on chronic anemia -12.2->9.8 overnight -Unclear if dilutional, no overt GI bleeding however cannot r/o bleed -FOBT ordered -12/10: Hemoglobin 10.2 today, FOBT negative. Suspect it was delusional #KATT resolved -Continue to hold lisinopril -s/p IVF -encourage PO #Generalized weakness -PT/OT #Hypothyroidism -Continue Synthroid -TSH wnl #DVT ppx: Lovenox Huma Khan MD Time spent in the patient's overall evaluation,decision-making process, review of diagnostic data, adjustment of management, discussion with other providers, nursing nursing and ancillary staff involved in patient's care documentation, 30 minutes
[2022-12-10 08:52] LABS: Differential Comment SCANNED
--- NOTE | 2022-12-10 09:57 | DS.PCM_ITS ---
Providers Date of Admission: 12/09/22 Date of Discharge: 12/10/22 Primary Care Physician: Dr. Roma Grajeda DO Reason For Visit: UTI Diagnosis Discharge Diagnosis (1) Urinary tract infection: Status: Acute Code(s): N39.0 - Urinary tract infection, site not specified (2) Dehydration, mild: Status: Acute Code(s): E86.0 - Dehydration (3) Generalized weakness: Status: Acute Code(s): R53.1 - Weakness (4) Altered level of consciousness: Status: Acute Code(s): R40.4 - Transient alteration of awareness Plan #Acute metabolic encephalopathy 2/2 UTI #Acute on chronic anemia #KATT resolved #Generalized weakness #Hypothyroidism Medications at Discharge Home Medications amitriptyline 25 mg tablet 25 mg PO QHS 08/16/20 amlodipine 5 mg tablet 5 mg PO DAILY BP 08/16/20 azelastine 137 mcg (0.1 %) nasal spray aerosol 1 spray NASAL BID SINUS 08/16/20 fluticasone propionate 50 mcg/actuation nasal spray,suspension 1 spray NASAL BID allergies 08/16/20 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 08/16/20 trazodone 50 mg tablet 50 mg PO QHS sleep 08/16/20 tramadol 50 mg tablet 50 mg PO Q8H 11/09/20 acetaminophen 500 mg tablet 500 mg PO Q6H PRN PRN Pain 1-10 Or Fever 11/22/20 pantoprazole 40 mg tablet,delayed release 40 mg PO BID GERD 11/22/20 levothyroxine 75 mcg tablet 75 mcg PO DAILY@0600 #30 tabs 11/25/20 lisinopril 20 mg tablet 20 mg PO DAILY 01/30/21 estradiol 0.01% (0.1 mg/gram) vaginal cream 1 applic vaginal MOWEFR HORMONES 12/08/22 amoxicillin 875 mg-potassium clavulanate 125 mg tablet 1 tab PO BID 6 days #13 tabs 12/10/22 Hospital Course Summary of Care Provided Minutes Spent on Discharge: 35 Hospital Course: KAELA ALDANA, is a 86 F with history of hypothyroidism, hypertension, osteoarthritis, multiple urinary tract infections, GERD who presented to [facility] 12/08/2022 after she had decreased consciousness while sitting on the toilet. She had been in the bathroom and called for her to bring her change of underwear and then per report was no longer responding but did not fall over or slump. She was slightly confused but confusion quickly improved though she remained very sleepy. Had been seen for UTI the day prior to admission and was started on what appears to been Macrobid but continued to have dysuria and was progressively more altered. In ED white count 9.5, blood gas pH 7.46 with a bicarb of 21 and CO2 of 22. CT head with chronic changes. UA still suggestive of UTI. Admitted and had EEG which had some nonspecific slowing, broad-spectrum antibiotics given due to history of UTIs with multiple resistance patterns. Additionally she was on tramadol as needed at home and gabapentin and appeared very dehydrated and suspected with decreased GFR gabapentin was not able to clears readily and may have contributed to her lethargy. She also had KATT on CKD again likely secondary to dehydration. Patient improved significantly and urine culture grew E. coli and gram-positive cocci possibly enteric coccus though the latter of which only had [id number] colony count. The day after admission did remain significantly weak and also had a 2 g drop in hemoglobin which was felt to be delusional however further work-up obtained, FOBT negative. On 12/10 patient significantly improved with much better energy. She had no further complaints other than occasional diarrhea which had been brought on recently by the stress of losing her grandson. P.o. intake. Discharge instructions as followed: -You are diagnosed with a urinary tract infection and will be discharged on antibiotics.? Given the bacteria that was found in your urine you will need to be discharged on Augmentin 875 mg twice daily for 6 more days with a dose tonight.? This was sent to your preferred pharmacy at the [facility] in [facility], will take this instead of the antibiotic that was prescribed before admission -Your amitriptyline, gabapentin, tramadol were held on admission as they can increase confusion and falls.? Would recommend discussing these medications with your prescribing physician prior to resuming due to these increased risks -You are very dehydrated on admission, would recommend holding Lasix (furosemide).? Weigh yourself daily, if you gain more than 2 pounds in 24 hours please contact your primary care physician as this may need to be resumed -If you have any home health needs, recommend contacting your primary care physician for coordination of any required services -Continue other home medications as prescribed -Recommend calling Dr. Gutierrez's office upon discharge to schedule a hospital follow-up appointment for your urinary tract infection -Please call your primary care provider's office upon discharge to schedule a hospital follow up within 1 week. -For any concerning signs or symptoms please call 911 or proceed to the nearest emergency department Physical Exam Narrative General: Alert, oriented HEENT: Atraumatic, normocephalic, moist mucous membranes Eyes: Anicteric, normal conjunctiva, extraocular movements grossly intact Neck: Supple Respiratory: Clear to auscultation bilaterally, normal respiratory effort Cardiovascular: Regular rate and rhythm GI: Soft, nontender, nondistended Extremities: No edema Musculoskeletal: Moving all extremities Neuro: No overt focal neurological deficits Skin: No rashes appreciated Psych: Cooperative Weight / BMI Weight Weight: 66.315 kg Body Mass Index (BMI) 30.5 ABG / Lab / Microbiology Data Result Diagrams: 12/10/22 05:54 12/10/22 05:54 Laboratory: Laboratory Results - last 24 hr 12/10/22 05:54: WBC 4.4, RBC 3.38 L, Hgb 10.2 L, Hct 31.7 L, MCV 93.8, MCH 30.2, MCHC 32.2, RDW Std Deviation 43.7, RDW Coeff of Laury 12.7, Plt Count 228, MPV 9.4, Immature Gran % (Auto) 0.200, Neut % (Auto) 73.1 H, Lymph % (Auto) 9.9 L, [place] % (Auto) 8.6, Eos % (Auto) 7.7 H, Baso % (Auto) 0.5, Absolute Neuts (auto) 3.2, Absolute Lymphs (auto) 0.44 L, Nucleated RBC % 0, Differential Comment SCANNED 12/10/22 05:54: Sodium 137, Potassium 3.1 L, Chloride 107, Carbon Dioxide 24.0, Anion Gap 6, BUN 9, Creatinine 0.68, Estim Creat Clear Calc 43.06, Est GFR (MDRD) Af Amer 105, Est GFR (MDRD) Non-Af 87, BUN/Creatinine Ratio 13.1, Glucose 93, Calcium 8.7 Microbiology: Microbiology 12/08/22 08:20 Urine, Catheterized Urine Culture - Preliminary Presumptive E. coli GPC Poss Enterococcus sp 12/09/22 17:36 Stool Stool Occult Blood (SUZANNE) - Final D/C Instructions Discharge Diet: No restrictions Meaningful Use Info Meaningful Use Diagnoses (Choose all that apply): None applicable Discharge Plan Admission Admit Date/Time: 12/09/22 15:43 Primary Reason for Your Visit: Altered level of conciousness, UTI Attending Provider: Huma Khan Primary Care Provider: Roma Grajeda Instructions Patient Instructions: Urinary Tract Infections in Women, UTIs Women Additional Instructions / Restrictions: DISCHARGE INSTRUCTIONS PLEASE READ *Please take this with you to your next doctors appointment* -You are diagnosed with a urinary tract infection and will be discharged on antibiotics. Given the bacteria that was found in your urine you will need to be discharged on Augmentin 875 mg twice daily for 6 more days with a dose tonight. This was sent to your preferred pharmacy at the [facility] in [facility], will take this instead of the antibiotic that was prescribed before admission -Your amitriptyline, gabapentin, tramadol were held on admission as they can increase confusion and falls. Would recommend discussing these medications with your prescribing physician prior to resuming due to these increased risks -You are very dehydrated on admission, would recommend holding Lasix (furosemide). Weigh yourself daily, if you gain more than 2 pounds in 24 hours please contact your primary care physician as this may need to be resumed -If you have any home health needs, recommend contacting your primary care physician for coordination of any required services -Continue other home medications as prescribed -Recommend calling Dr. Gutierrez's office upon discharge to schedule a hospital follow-up appointment for your urinary tract infection -Please call your primary care provider's office upon discharge to schedule a hospital follow up within 1 week. -For any concerning signs or symptoms please call 911 or proceed to the nearest emergency department Discharge Orders/Prescriptions Prescriptions: New amoxicillin-pot clavulanate 875-125 mg tablet 1 tab PO BID 6 Days Qty: 13 0RF Rx Instructions: First dose night of 12/10/22 Continued trazodone 50 MG tablet 50 mg PO QHS amlodipine 5 MG tablet 5 mg PO DAILY azelastine 1 SPRAY aerosol,spray 1 spray NASAL BID fluticasone propionate 1 SPRAY spray,suspension 1 spray NASAL BID acetaminophen 500 MG tablet 500 mg PO Q6H PRN PRN (Reason: Pain 1-10 Or Fever) pantoprazole 40 MG tablet 40 mg PO BID levothyroxine 75 MCG tablet 75 mcg PO DAILY@0600 Qty: 30 0RF lisinopril 20 MG tablet 20 mg PO DAILY estradiol 0.01 % (0.1 mg/gram) cream 1 applic VAGINAL MOWEFR Label Comments: INSERT 1 GRAM VAGINALLY 3 TIMES A WEEK BEFORE BED Held amitriptyline 25 MG tablet 25 mg PO QHS Hold Instructions: Resume on 01/03/23. Hold until discussing with your [facility] gabapentin 300 MG capsule 300 mg PO TID Hold Instructions: Resume on 12/27/22. Would recommend discussing this medication with your prescribing physician prior to resuming due to the increased risk of confusion and falls tramadol 50 MG tablet 50 mg PO Q8H Hold Instructions: Resume on 12/27/22. Would recommend discussing this medication with your prescribing physician prior to resuming due to the increased risk of confusion and falls Discontinued furosemide 40 MG tablet 40 mg PO DAILY PRN PRN (Reason: htn) Rx Instructions: if blood pressure is greater than 140/80 nitrofurantoin monohyd/m-cryst 100 mg capsule 100 mg PO BID Label Comments: TAKE 1 CAPSULE BY MOUTH TWICE DAILY FOR 7 DAYS Referrals / Follow Up: Lorena Gutierrze MD [Med Staff - Active Staff] - See Referral Note (Recommend calling Dr. Gutierrez's office upon discharge to schedule a hospital follow-up appointment for your urinary tract infection) Roma Grajeda DO [Primary Care Provider] - Within 1 Week Disposition Disposition (needs filled in before D/C Order can be placed): Home, Self Care Charges/Coding Visit Charges Inpatient E&M: 57895 Disch Hosp >30min
[2022-12-10 10:21] VITALS: BP 151/72; PULSE 84; RESP 18; TEMP 36.8; O2SAT 98
[2022-12-10] MEDS: Potassium Chloride Oral Tablet 20 MEQ 60 MEQ PO (10:24)
[2022-12-10] MEDS: amLODIPine 5 MG Tablet PO (10:24)
[2022-12-10] MEDS: Pantoprazole Sodium 40 MG Tablet PO (10:24)
[2022-12-10] MEDS: Fluticasone 0.05% 1 SPRAY NASAL.SRY NASAL (10:25)
== END 2022-12-10 11:30 | disposition home or self-care (01) | DRG 689 ==
LOC: ED 09:33 → PCU 10:25
PROVIDERS: Admitting Provider Internal Medicine; Emergency Provider Emergency Medicine; PCP Family Medicine; Visit Provider Internal Medicine
DX: N39.0 Urinary tract infection, site not specified (principal); G93.41 Metabolic encephalopathy; N17.9 Acute kidney failure, unspecified; N18.30 Chronic kidney disease, stage 3 unspecified; E03.9 Hypothyroidism, unspecified; E86.0 Dehydration; I12.9 Hypertensive chronic kidney disease with stage 1 through stage 4 chronic kidney disease, or unspecified chronic kidney disease; D64.9 Anemia, unspecified; R55 Syncope and collapse; B96.89 Other specified bacterial agents as the cause of diseases classified elsewhere; B96.20 Unspecified Escherichia coli [E. coli] as the cause of diseases classified elsewhere; Z66 Do not resuscitate; Z79.890 Hormone replacement therapy; Z79.899 Other long term (current) drug therapy
CPT/HCPCS: 36415; 70450; 71045; 80048; 80053; 80076; 81001; 82140; 82274; 82803; 83735; 84443; 85025; 87077; 87086; 87088; 87186; 93005; 94668; 95819; 97162; 97165; 97802; 99252; 99285; J7030; P9612; A4216; G0463

== ENCOUNTER → 2022-12-14 | Outpatient (CLI) | payer MEDICARE, SELFPAY ==
[2022-12-14 12:35] LABS: Anion Gap 11 (5-15); BUN 22 mg/dL (7-18); BUN/Creat Ratio 18.6 RATIO (10-20); Calcium,Total 9.6 mg/dL (8.5-10.1); Chloride 105 mmol/L (98-107); Creatinine, Serum 1.18 mg/dL (0.55-1.02); EST Glomerular Filtration Rate 46 mL/min (>60); Est Glom Filt Rate - Afr Amer 56 mL/min (>60); Glucose 116 mg/dL (74-106); Sodium Level 139 mmol/L (136-145)
== END | disposition home or self-care (01) ==
LOC: BFHLAB 10:29
PROVIDERS: PCP Family Medicine; Visit Provider Family Medicine
DX: E87.6 Hypokalemia (principal)
CPT/HCPCS: 36415; 80048

== ENCOUNTER 2023-01-18 20:24 | Emergency (ER) | payer MEDICARE, SELFPAY ==
[2023-01-18 20:25] VITALS: BP 148/68; PULSE 78; RESP 18; TEMP 36.6; O2SAT 97; BMI 28.8
--- NOTE | 2023-01-18 21:17 | EX.ED.VIS.EY ---
HPI History of Present Illness Chief Complaint: Eye Problem Informant: patient and spouse/S.O. Narrative Narrative: 2-day history increasing blurry vision and eye irritation. No loss of vision. Concerned of something in her eye. Does not complain of foreign body sensation. Wears glasses. Last eye exam a year ago. She follows with [facility] denies nausea or vomiting.. [facility] Medical History Alcohol use Celiac disease Dietary restriction Gastric reflux History of depression History of GI bleed History of hiatal hernia History of rheumatic fever History of stress test Hoarseness Hypertension Non-smoker Osteoporosis Thyroid disease Walker as ambulation aid Wears hearing aid Home Medications amitriptyline 25 mg tablet 25 mg PO QHS 08/16/20 [History Last Taken 12/07/22] amlodipine 5 mg tablet 5 mg PO DAILY BP 08/16/20 [History Last Taken 12/06/22] azelastine 137 mcg (0.1 %) nasal spray aerosol 1 spray NASAL BID SINUS 08/16/20 [History Last Taken 12/07/22] fluticasone propionate 50 mcg/actuation nasal spray,suspension 1 spray NASAL BID allergies 08/16/20 [History Last Taken 12/07/22] 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 08/16/20 [History Last Taken 12/08/22] trazodone 50 mg tablet 50 mg PO QHS sleep 08/16/20 [History Last Taken 12/07/22] tramadol 50 mg tablet 50 mg PO Q8H 11/09/20 [History Last Taken 12/08/22] acetaminophen 500 mg tablet 500 mg PO Q6H PRN PRN Pain 1-10 Or Fever 11/22/20 [History Last Taken 12/07/22] pantoprazole 40 mg tablet,delayed release 40 mg PO BID GERD 11/22/20 [History Last Taken 12/07/22] levothyroxine 75 mcg tablet 75 mcg PO DAILY@0600 #30 tabs 11/25/20 [Rx Last Taken 12/08/22] lisinopril 20 mg tablet 20 mg PO DAILY 01/30/21 [History Last Taken 12/07/22] estradiol 0.01% (0.1 mg/gram) vaginal cream 1 applic vaginal MOWEFR HORMONES 12/08/22 [History Last Taken 12/06/22] amoxicillin 875 mg-potassium clavulanate 125 mg tablet 1 tab PO BID 6 days #13 tabs 12/10/22 [Rx Last Taken Unknown] Allergy/AdvReac Type Severity Reaction Status Date / Time gluten Allergy Food Verified 01/18/23 20:27 Allergy grass pollen-perennial rye, Allergy sinus Verified 01/18/23 20:27 standar pressure [grass poll-perennial rye,std] house dust AdvReac Other Verified 01/18/23 20:27 lactose AdvReac Food Verified 01/18/23 20:27 Allergy mold AdvReac Other Verified 01/18/23 20:27 Surgical History History of back surgery History of bilateral salpingo-oophorectomy (BSO) History of biopsy of bladder History of cholecystectomy History of cystostomy History of hysterectomy History of right knee surgery History of shoulder surgery Social History Smoking Status: Never smoker alcohol intake: never ROS ROS ED Constitutional Constitutional ED: Denies chills, fever(s) or sweats Eyes Eyes: Reports blurry vision; Denies change in vision ENT ENT ED: Denies dysphagia or sore throat Cardiovascular Cardiovascular: Denies chest pain, leg edema, palpitations or racing heartbeat Respiratory/Chest Respiratory/Chest: Denies cough, dyspnea or dyspnea on exertion Gastrointestinal Gastrointestinal: Denies abdominal pain, diarrhea, nausea or vomiting Genitourinary Genitourinary ED: Denies dysuria, hematuria or urinary frequency Musculoskeletal Musculoskeletal: Denies back pain, extremity pain or neck pain Integumentary Denies rash or wounds Neurologic Neurologic: Denies headache(s), paresthesias or weakness EXAM Physical Exam Const Vital Signs: 01/18/23 20:25 Temperature 97.9 F Temperature Source Temporal Pulse Rate 78 Respiratory Rate 18 Blood Pressure 148/68 H Blood Pressure Mean 94 Pulse Ox 97 Oxygen Delivery Method Room Air Positive well nourished and well developed General Appearance ED: well developed and NAD HEENT Reports moist mucous membranes normocephalic and atraumatic Eyes PERRL, EOMs intact bilaterally and conjunctivae normal Eyes Narrative: Moist Q-tip exam to the lid along with upper eyelid everted right eye there is no foreign body. There is erythema of the sclera more laterally.Visual acuity 20/20 OD, 20/40 OS, 20/40 OU. Lamp examination no abrasions. Fluorescein stain was performed. There was dryness more laterally. No ulcerations. Neck no lymphadenopathy and supple General: Negative for tenderness Chest Wall Chest: Negative for tenderness Resp normal respiratory effort and normal air movement Effort and Inspection: symmetric chest movement; Negative for respiratory distress Cardio regular rate, regular rhythm and no murmurs Peripheral Pulses: pulses 2+ throughout GI normal to inspection, nondistended, normoactive bowel sounds and non-tender Palpation: Negative for guarding or rebound tenderness present Back/Spine no CVA tenderness and no thoracic nor lumbar tenderness Extremity normal to inspection General Extremety ED: Negative for edema or tenderness General Extremity: Negative for edema Neuro oriented x3 and no sensory deficits noted Sensorium / Orientation: awake and alert Skin no rashes or lesions noted and no wounds MDM MDM MDM Narrative Medical decision making narrative: Interventions / MDM: Differential diagnosis: Foreign body, abrasions, ulcers Diagnosis considered but do not suspect: N/A My EKG interpretation: N/A Imaging independently reviewed and interpreted by myself: N/A External documents reviewed: N/A Test considered but not ordered:N/A ED course: Patient slit-lamp examination no gross foreign bodies no abrasion ulcers there is dryness noted. Visual acuity had blurry vision on the right side with glasses. No clinical signs of glaucoma, no fixed dilated pupil. Discussed rewetting drops and follow-up with ophthalmology. All questions were answered. Re-evaluation: stable Disposition discussed with patient/family/significant other: Patient and significant other Case discussed with consulting clinician: N/A Discharge Plan Triage Chief Complaint: Eye Problem ED Provider: Speedy Brown Dx/Rx/DC Orders Clinical Impression: Blurred vision, right eye, Dry eye of right side Instructions: Treating Dry Eyes, ED Blurred Vision Prescriptions: No Action trazodone 50 MG tablet 50 mg PO QHS amlodipine 5 MG tablet 5 mg PO DAILY amitriptyline 25 MG tablet 25 mg PO QHS Hold Instructions: Resume on 01/03/23. Hold until discussing with your primary care physician gabapentin 300 MG capsule 300 mg PO TID Hold Instructions: Resume on 12/27/22. Would recommend discussing this medication with your prescribing physician prior to resuming due to the increased risk of confusion and falls azelastine 1 SPRAY aerosol,spray 1 spray NASAL BID fluticasone propionate 1 SPRAY spray,suspension 1 spray NASAL BID tramadol 50 MG tablet 50 mg PO Q8H Hold Instructions: Resume on 12/27/22. Would recommend discussing this medication with your prescribing physician prior to resuming due to the increased risk of confusion and falls acetaminophen 500 MG tablet 500 mg PO Q6H PRN PRN (Reason: Pain 1-10 Or Fever) pantoprazole 40 MG tablet 40 mg PO BID levothyroxine 75 MCG tablet 75 mcg PO DAILY@0600 Qty: 30 0RF lisinopril 20 MG tablet 20 mg PO DAILY estradiol 0.01 % (0.1 mg/gram) cream 1 applic VAGINAL MOWEFR Label Comments: INSERT 1 GRAM VAGINALLY 3 TIMES A WEEK BEFORE BED amoxicillin-pot clavulanate 875-125 mg tablet 1 tab PO BID 6 Days Qty: 13 0RF Rx Instructions: First dose night of 12/10/22 Primary Care Provider: Roma Grajeda Referrals: Diana Jay MD [Med Staff - Active Staff] - 1 Day Roma Grajeda [[facility]] - Activity Restrictions/Additional Instructions: Blurry vision with visual acuity, slit-lamp examination notes dry eyes no abrasions no ulcerations. Use rewetting drops for moisturization. Follow-up with ophthalmology. Disposition Disposition: Home, Self Care Discharge Date/Time: 01/18/23 22:12
[2023-01-18] MEDS: Fluorescein 1 MG STRIP 1 STRIP OPHTHALMIC (21:48)
== END 2023-01-18 22:12 | disposition home or self-care (01) ==
PROVIDERS: Emergency Provider Emergency Medicine; PCP Family Medicine; Visit Provider Emergency Medicine
DX: H53.8 Other visual disturbances (principal); I10 Essential (primary) hypertension; Z79.890 Hormone replacement therapy; Z79.899 Other long term (current) drug therapy
CPT/HCPCS: 99283; J7040; A4216

== ENCOUNTER → 2023-02-05 | Outpatient (CLI) | payer MEDICARE, SELFPAY | END | disposition home or self-care (01) | LOC: LABSPEC 13:50 | PROVIDERS: PCP Family Medicine; Referring Provider Family Medicine; Visit Provider Family Medicine | DX: R30.0 Dysuria (principal) | CPT/HCPCS: 87086; 87088; 87186 ==

== ENCOUNTER → 2023-05-28 | Outpatient (CLI) | payer MEDICARE, SELFPAY | END | disposition home or self-care (01) | LOC: BFHLAB 15:43 → LABSPEC 15:44 | PROVIDERS: PCP Family Medicine; Referring Provider Family Medicine; Visit Provider Family Medicine | DX: R30.0 Dysuria (principal) | CPT/HCPCS: 87086; 87088; 87186 ==

== ENCOUNTER → 2023-07-13 | Outpatient (CLI) | payer MEDICARE, SELFPAY | END | disposition home or self-care (01) | LOC: LABSPEC 18:28 | PROVIDERS: PCP Family Medicine; Visit Provider Family Medicine | DX: N39.0 Urinary tract infection, site not specified (principal) | CPT/HCPCS: 87077; 87086; 87088; 87186 ==

== ENCOUNTER → 2023-07-26 | Outpatient (CLI) | payer MEDICARE, SELFPAY ==
--- NOTE | 2023-07-26 14:44 | RAD_ITS ---
STUDY: X-RAY - CERVICAL SPINE REASON FOR EXAM: Female, 87 years old. Neck pain. TECHNIQUE: 8 view(s) of the cervical spine, including lateral flexion and extension views, were obtained. COMPARISON: None FINDINGS: Marked osteopenia. Normal anterior atlantoaxial articulation. Normal odontoid process. Normal cervical lordosis. Diffuse moderate to marked uncovertebral and facet sclerosis. Diffuse moderate to marked intervertebral disc space narrowing with osteophytes most marked at C3-4, C4-5, C5-6 and C6-7. Anterior bony neural foraminal encroachment from C3-4 to C6-7. Limited flexion and extension with no abnormal motion. Normal soft tissues. RAD/Cerv Spine Obl/Flex/Ext Comp IMPRESSION: Osteopenia with limited flexion and extension and diffuse moderate to marked cervical spondylosis most prominent at C3-4 through C6-7. Electronically Signed: Viet Gimenez MD at 15:05 EDT ,
== END | disposition home or self-care (01) ==
LOC: MTRAD 14:42
PROVIDERS: PCP Family Medicine; Referring Provider Anesthesiology Pain Medicine; Visit Provider Anesthesiology Pain Medicine
DX: M50.30 Other cervical disc degeneration, unspecified cervical region (principal)
CPT/HCPCS: 72052

== ENCOUNTER → 2023-09-24 | Outpatient (CLI) | payer MEDICARE, SELFPAY | END | disposition home or self-care (01) | LOC: BFHLAB 16:01 | PROVIDERS: PCP Family Medicine; Visit Provider Family Medicine | DX: N39.0 Urinary tract infection, site not specified (principal) | CPT/HCPCS: 87086; 87088; 87186 ==

== ENCOUNTER 2023-09-28 16:43 | Observation (INO) | payer MEDICARE, SELFPAY ==
[2023-09-28] VITALS (7 sets, daily range): BP systolic 133–158; BP diastolic 70–91; PULSE 78–89; RESP 12–16; TEMP 36.6–36.7; O2SAT 96–100; BMI 30.7
--- OUTSIDE RECORDS SUMMARY | 2023-09-28 17:20 | XMS RPT_ITS | CCD ---
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; Translations: [HAY FEVER] allergy to substance [facility] Work Phone: (1 source) Dust; Translations: [DUST] allergy to substance 05-04-2014 [facility] Work Phone: (1 source) Mold Extract; Translations: [MOLD] Drug Allergy [facility] Work Phone: Medications Completed/Discontinued Medications Medication Drug Class(es) Dates Sig (Normalized) Sig (Original) acetaminophen 33.3 mg/ml oral solution (1 source) Start: 05-04-2014 TYLENOL 500 MG/15ML LIQD every 8 hrs as needed ACETAMINOPHEN [id number] Roma Grajeda DO ALUM & MAG HYDROXIDE-SIMETH SUSP (2 sources) Start: 05-04-2014 End: 12-14-2015 MYLANTA SUSP two tsp as needed ALUM & MAG HYDROXIDE-SIMETH SUSP [id number] Roma Grajeda DO Problems Active Problems Problem Classification Problem Date Documented Da te Episodic/Chronic Esophageal disorders (1 source) Gastroesophageal reflux disease; Translations: [Gastro-esophageal reflux disease without esophagitis] Onset: 4 11-08-2015 Chronic Essential hypertension (1 source) Hypertensive disorder; Translations: [Essential (primary) hypertension] Onset: 5 10-27-2014 Chronic Genitourinary symptoms and ill-defined conditions (1 source) Mixed urinary incontinence; Translations: [Mixed incontinence] Onset: 4 05-05-2014 Chronic Mood disorders (1 source) Depressive disorder; Translations: [Major depressive disorder, single episode, unspecified] Onset: 6 04-24-2016 Chronic Other gastrointestinal disorders (1 source) Celiac disease; Translations: [Celiac disease] Onset: 4 08-17-2014 Chronic Other hereditary and degenerative nervous system conditions (1 source) Essential tremor; Translations: [Essential tremor] Onset: 4 06-23-2014 Chronic Other nutritional; endocrine; and metabolic disorders (1 source) Obesity; Translations: [Obesity, unspecified] Onset: 5 12-07-2014 Chronic Thyroid disorders (1 source) Hypothyroidism; Translations: [Hypothyroidism, unspecified] Onset: 5 04-12-2015 Chronic Past or Other Problems Problem Classification Problem Date Documented Da te Episodic/Chronic Abdominal pain (1 source) Epigastric pain; Translations: [Epigastric pain] Onset: 4 05-28-2014 Episodic Deficiency and other anemia (1 source) Iron deficiency anemia; Translations: [Iron deficiency anemia, unspecified] Onset: 5 12-21-2014 Episodic Diseases of mouth; excluding dental (1 source) Xerostomia; Translations: [Dry mouth, unspecified] Onset: 6 Resolved: 6 03-28-2016 Episodic Disorders of teeth and jaw (1 source) Toothache; Translations: [Other specified disorders of teeth and supporting structures] Onset: 5 2014 Episodic Gastrointestinal hemorrhage (1 source) Hematochezia; Translations: [Melena] Onset: 5 12-21-2014 Episodic Genitourinary symptoms and ill-defined conditions (1 source) Dysuria; Translations: [Dysuria] Onset: 4 05-21-2014 Episodic Malaise and fatigue (1 source) Malaise and fatigue; Translations: [Other malaise] Onset: 4 05-04-2014 Episodic Mycoses (1 source) Candidiasis of skin; Translations: [Candidiasis of skin and nail] Onset: 5 05-06-2015 Episodic Nausea and vomiting (1 source) Nausea; Translations: [Nausea] Onset: 4 05-28-2014 Episodic Open wounds of extremities (1 source) Laceration without foreign body of unspecified finger without damage to nail, initial encounter; Translations: [Laceration without foreign body of unspecified finger without damage to nail, initial encounter] Onset: 7 07-11-2017 Episodic Osteoarthritis (1 source) Degenerative joint disease of shoulder region; Translations: [Primary osteoarthritis, left shoulder] Onset: 6 Resolved: 6 03-28-2016 Chronic Other connective tissue disease (1 source) Hand pain; Translations: [Pain in left hand] Onset: 4 08-17-2014 Episodic Other gastrointestinal disorders (1 source) Chronic constipation; Translations: [Other constipation] Onset: 4 05-05-2014 Episodic Other gastrointestinal disorders (1 source) H/O: gastrointestinal disease; Translations: [Personal history of other diseases of the digestive system] Onset: 4 05-05-2014 Episodic Other non-traumatic joint disorders (1 source) Shoulder pain; Translations: [Pain in unspecified shoulder] Onset: 4 05-21-2014 Episodic Other non-traumatic joint disorders (1 source) Knee pain; Translations: [Pain in right knee] Onset: 4 05-05-2014 Episodic Other nutritional; endocrine; and metabolic disorders (1 source) H/O: nutritional disorder; Translations: [Personal history of other endocrine, nutritional and metabolic disease] Onset: 4 05-05-2014 Episodic Other skin disorders (1 source) Actinic keratosis; Translations: [Actinic keratosis] Onset: 4 05-05-2014 Episodic Other skin disorders (1 source) Disorder of skin; Translations: [Disorder of the skin and subcutaneous tissue, unspecified] Onset: 4 05-21-2014 Episodic Spondylosis; intervertebral disc disorders; other back problems (2 sources) Low back pain; Translations: [Spinal stenosis of lumbar region] Onset: 4 05-05-2014 Episodic Unclassified (1 source) Preoperative procedures; Translations: [Encounter for other preprocedural examination] Onset: 6 Resolved: 6 03-28-2016 Urinary tract infections (2 sources) Acute cystitis; Translations: [Recurrent urinary tract infection] Onset: 4 Resolved: 4 07-28-2014 Episodic Results Test Name Value Interpretation Reference Range Facil ity Vital Signs Date Time Vital Sign Value Performing Clinician Tony mosley 07-11-2017 15:20-0400 BMI (Body Mass Index) 29.28 kg/m2 Rupinder Zhu LPN [facility] Work Phone: 07-11-2017 15:20-0400 Body Temperature 99.2 [degF] Rupinder Zhu LPN [facility] Work Phone: 07-11-2017 15:20-0400 BP Diastolic 72 mm[Hg] Rupinder Zhu LPN [facility] Work Phone: 07-11-2017 15:20-0400 BP Systolic 128 mm[Hg] Rupinder Zhu LPN [facility] Work Phone: 07-11-2017 15:20-0400 Height 149.86 cm Rupinder Zhu LPN [facility] Work Phone: 07-11-2017 15:20-0400 Pulse (Heart Rate) 93 /min Rupinder Zhu LPN [facility] Work Phone: 07-11-2017 15:20-0400 Respiratory Rate 16 /min Rupinder Zhu LPN [facility] Work Phone: 07-11-2017 15:20-0400 Weight 65.77 kg Rupinder Zhu LPN [facility] Work Phone: 04-24-2016 12:15-0400 BSA (Body Surface Area) 1.58 m2 Rupinder Zhu LPN [facility] Work Phone: 04-12-2016 06:15-0400 Body surface area Derived from formula 45.73 mL/min Rupinder Zhu OBED [facility] Work Phone: Procedures Date Procedure Procedure Detail Performing Clinician Start: 07-11-2017 End: 07-11-2017 Smpl repair scalp/neck/ax/genit/trunk 2.6-7.5cm Barrie Machuca PA Work Phone: Start: 03-23-2016 End: 03-23-2016 Urinalysis Rupinder Zhu OBED Start: 12-14-2015 End: 12-14-2015 *CBC with Differential Roma A Malys, DO Work Phone: Start: 12-10-2015 End: 12-10-2015 Urinalysis Rupinder Zhu OBED Start: 10-15-2015 Therapeutic drug monitoring assay Encounter for therapeutic drug monitoring Rupinder Zhu OBED Start: 04-12-2015 End: 04-12-2015 *CBC with Differential Roma A Malys, DO Work Phone: Start: 04-12-2015 End: 04-13-2015 *CMP Complete Metabolic Panel Roma A Malys, DO Work Phone: Start: 04-12-2015 End: 04-13-2015 Iron [Mass/volume] in Serum or Plasma Roma A Malys, DO Work Phone: Start: 04-12-2015 End: 04-13-2015 Thyrotropin [Units/volume] in Serum or Plasma Roma A Malys, DO Work Phone: Start: 03-10-2015 End: 03-10-2015 Urinalysis Rupinder Zhu OBED Start: 02-03-2015 Screening for malignant neoplasm of breast Screening for breast cancer Rupinder [place]ples[place] CLAY Start: 12-07-2014 End: 12-09-2014 *B12FO Vitamin B12 and Folates Roma A Malys, DO Work Phone: Start: 12-07-2014 End: 12-10-2014 *CBC with Differential Roma A Malys, DO Work Phone: Start: 12-07-2014 End: 12-09-2014 *CMP Complete Metabolic Panel Roma A Malys, DO Work Phone: Start: 12-07-2014 End: 12-09-2014 Ferritin [Mass/volume] in Serum or Plasma Roma Grajeda, DO Work Phone: Start: 12-07-2014 End: 12-09-2014 Iron and Iron binding capacity panel - Serum or Plasma Roma Grajeda, DO Work Phone: Start: 12-07-2014 End: 12-09-2014 Lipid 1996 panel - Serum or Plasma Roma Grajeda, DO Work Phone: Start: 12-07-2014 End: 12-09-2014 Thyrotropin [Units/volume] in Serum or Plasma Roma Grajeda, DO Work Phone: Start: 08-17-2014 End: 12-10-2014 Bacteria identified in Urine by Culture Roma Grajeda, DO Work Phone: Start: 08-17-2014 End: 12-10-2014 Urnls dip stick/tablet rgnt non-auto w/o micrscp Roma Grajeda, DO Work Phone: Start: 07-28-2014 End: 12-10-2014 *CUUID - Urine CAMRON Culture - Identificatn Roma Grajeda, DO Work Phone: Start: 07-28-2014 End: 12-10-2014 Follow-up visit Roma Grajeda DO Work Phone: Start: 07-28-2014 End: 07-29-2014 Urinalysis complete panel - Urine Roma Grajeda, DO Work Phone: Start: 07-28-2014 End: 12-10-2014 Urnls dip stick/tablet rgnt non-auto w/o micrscp Roma Grajeda, DO Work Phone: Start: 05-21-2014 End: 05-21-2015 Arthrocentesis aspir&/inj major jt/bursa w/o us Roma Grajeda, DO Work Phone: Start: 05-21-2014 End: 12-10-2014 Kenalog per 10 mg Roma Grajeda, DO Work Phone: Start: 05-21-2014 End: 12-10-2014 Urnls dip stick/tablet rgnt non-auto w/o micrscp Roma Grajeda, DO Work Phone: Start: 05-04-2014 End: 05-08-2014 *CBC with Differential Roma Grajeda DO Work Phone: Start: 05-04-2014 End: 12-10-2014 Follow Up Appt 3 months Roma Grajeda, DO Work Phone: Plan of Treatment Date Care Activity Detail Author Start: 07-11-2017 End: 07-11-2017 Appointment Appointment [facility] Work Phone: Start: 12-14-2015 End: 12-14-2015 *CBC with Differential *CBC with Differential [facility] Work Phone: Start: 10-15-2015 End: 10-15-2015 *CBC with Differential *CBC with Differential [facility] Work Phone: Start: 10-15-2015 End: 10-15-2015 *CMP Complete Metabolic Panel *CMP Complete Metabolic Panel [facility] Work Phone: Start: 04-12-2015 End: 04-12-2015 *CBC with Differential *CBC with Differential [facility] Work Phone: Start: 04-12-2015 End: 04-13-2015 *CMP Complete Metabolic Panel *CMP Complete Metabolic Panel [facility] Work Phone: Start: 04-12-2015 End: 04-12-2015 25-Hydroxyvitamin D2+25-Hydroxyvitamin D3 mass conc *Vitamin D (Calciferol) [facility] Work Phone: Start: 04-12-2015 End: 04-13-2015 Iron mass conc *Iron [facility] Work Phone: Start: 04-12-2015 End: 04-13-2015 Thyrotropin Qn *TSH [facility] Work Phone: Start: 03-10-2015 End: 03-10-2015 Bacteria identified Cx Nom (U) *CUUR - Culture, Urine ([place] Count) [facility] Work Phone: Start: 03-10-2015 End: 03-29-2015 Urology Referral [facility] Work Phone: Start: 02-03-2015 End: 02-03-2015 Mammogram, Screening, both breasts Mammogram, Screening, both breasts [facility] Work Phone: Start: 12-22-2014 End: 12-23-2014 Gastroenterology Referral Gastroenterology Referral Baodonald Jordan, [address] [place] [address], [address], [place], [address] [facility] Work Phone: Start: 12-07-2014 End: 12-09-2014 *B12FO Vitamin B12 and Folates *B12FO Vitamin B12 and Folates [facility] Work Phone: Start: 12-07-2014 End: 12-10-2014 *CBC with Differential *CBC with Differential [facility] Work Phone: Start: 12-07-2014 End: 12-09-2014 *CMP Complete Metabolic Panel *CMP Complete Metabolic Panel [facility] Work Phone: Start: 12-07-2014 End: 12-09-2014 Ferritin mass conc *Ferritin [facility] Work Phone: Start: 12-07-2014 End: 12-09-2014 Iron and Iron binding capacity panel - Serum or Plasma *IBC Iron & Total Iron Binding Capacity [facility] Work Phone: Start: 12-07-2014 End: 12-09-2014 Lipid 1996 panel *Lipid Profile [facility] Work Phone: Start: 12-07-2014 End: 12-09-2014 Thyrotropin Qn *TSH [facility] Work Phone: Start: 08-17-2014 End: 12-10-2014 Bacteria identified Cx Nom (U) *CUUR - Culture, Urine ([place] Count) [facility] Work Phone: Start: 08-17-2014 End: 12-10-2014 Urnls dip stick/tablet rgnt non-auto w/o micrscp UA Dipstick (Office) [facility] Work Phone: Start: 07-28-2014 End: 12-10-2014 *CUUID - Urine [place] Culture - Identificatn *CUUID - Urine [place] Culture - Identificatn [facility] Work Phone: Start: 07-28-2014 End: 12-10-2014 Follow-up visit Follow Up as needed [facility] Work Phone: Start: 07-28-2014 End: 07-29-2014 Urinalysis complete panel - Urine *UAC- Urinalysis, Complete w/ Micro [facility] Work Phone: Start: 07-28-2014 End: 12-10-2014 Urnls dip stick/tablet rgnt non-auto w/o micrscp UA Dipstick (Office) [facility] Work Phone: Start: 05-21-2014 End: 12-10-2014 *CUUID - Urine CAM[place] Culture - Identificatn *CUUID - Urine [place] Culture - Identificatn [facility] Work Phone: Start: 05-21-2014 End: 12-10-2014 Arthrocentesis aspir&/inj major jt/bursa w/o us Injection, Joint (major) [facility] Work Phone: Start: 05-21-2014 End: 12-10-2014 Dermatology Referral Dermatology Referral Marylin Camacho, [address] [place], [address] [facility] Work Phone: Start: 05-21-2014 End: 12-10-2014 Triamcinolone acet inj NOS Kenalog per 10 mg [facility] Work Phone: Start: 05-21-2014 End: 12-10-2014 Urnls dip stick/tablet rgnt non-auto w/o micrscp UA Dipstick (Office) [facility] Work Phone: Start: 05-04-2014 End: 05-08-2014 *CBC with Differential *CBC with Differential [facility] Work Phone: Start: 05-04-2014 End: 12-10-2014 Follow Up Appt 3 months Follow Up Appt 3 months [facility] Work Phone: Immunizations Immunization Date Immunization Notes Care Provider Fa judy 07-11-2017 tetanus toxoid, redu erika diphtheria toxoid, and acellular pertussis vaccine, adsorbed Rupinder Zhu LPN [facility] Work Phone: 07-11-2017 [id number] Rupinder Zhu LPN [facility] Work Phone: Summary Purpose Family History No Family History Records Found Advance Directives No Advanced Directives Records Found Additional Source Comments INFORMATION SOURCE (unrecogn ized section and content) FOR RECORDS PERTAINING TO PATIENTS WHO ARE OR HAVE BEEN ENROLLED IN A CHEMICAL DEPENDENCY/SUBSTANCEABUSE PROGRAM, SOME INFORMATION MAY BE OMITTED. This clinical summary was aggregated from multiple sources. Caution should be exercised in using it in the provision of clinical care. This summary normalizes information from multiple sources, and as a consequence, information in this document may materially change the coding, format and clinical context of patient data. In addition, data may be omitted in some cases. CLINICAL DECISIONS SHOULD BE BASED ON THE PRIMARY CLINICAL RECORDS. [employer] provides no warranty or guarantee of the accuracy or completeness of information in this document.
--- NOTE | 2023-09-28 17:33 | CT_ITS ---
EXAM: CT brain without IV contrast. HISTORY: Head trauma TECHNIQUE: No intravenous contrast. A radiation dose optimization technique was used for this scan. COMPARISON: Head CT December 08, 2022. LIMITATIONS: None. BRAIN: Mild involutional change. Moderate low attenuation bilaterally within the deep white matter, likely secondary to chronic microvascular ischemia, similar to the prior exam. VENTRICLES: The ventricles are borderline dilated, but stable in appearance since the prior exam. EXTRA-AXIAL SPACES: No acute hemorrhage. CALVARIUM/SKULL BASE: No acute fracture. FACE/SINUSES: No significant abnormality. SOFT TISSUES: Normal. OTHER: None. CONCLUSION: No acute intracranial abnormality. Electronically Signed: Jean Garcia MD at 18:18 EST , CT/Brain/Head without Contrast IMPRESSION: undefined
--- NOTE | 2023-09-28 17:33 | CT_ITS ---
EXAM: CT cervical spine. HISTORY: neck pain TECHNIQUE: No intravenous contrast. A radiation dose optimization technique was used for this scan. COMPARISON: None. LIMITATIONS: None. FRACTURES: Discontinuity of the anterior ring of C1 may be congenital or secondary to old trauma. No acute fracture identified. SPINAL CANAL: No significant stenosis. DEGENERATIVE CHANGE: Advanced degenerative change. SOFT TISSUE: Pannus at C1-2. OTHER: None. CONCLUSION: No acute fracture. Electronically Signed: Jean Garcia MD at 18:33 EST , CT/Spine Cervical without Contras IMPRESSION: undefined
--- NOTE | 2023-09-28 17:33 | EKG12_ITS ---
Test Reason : GENERAL Blood Pressure : / mmHG Vent. Rate : 078 BPM Atrial Rate : 078 BPM P-R Int : 162 ms QRS Dur : 078 ms QT Int : 390 ms P-R-T Axes : 061 -17 027 degrees QTc Int : 444 ms Normal sinus rhythm Minimal voltage criteria for LVH, may be normal variant ( R in aVL ) Borderline ECG Confirmed by ORIN BECKWITH MD ([id number]), editorial writer RODNEY GUTIERREZ ([id number]) on 10/09/2023 8:45:08 AM Referred By: Confirmed By:ORIN BECKWITH MD
--- NOTE | 2023-09-28 17:34 | EDS_ITS ---
HPI History of Present Illness Chief Complaint: Head Injury Narrative Narrative: 87-year-old female presenting with headache and confusion. Patient states that she does not recall what happened to her last night but she was in the kitchen last thing she can recall and the next and she knows she was on the floor. EMS was called and came to evaluate her but she states they did not look in her eyes or examine her and they just asked if she was okay at that she was awake they let her go. She states her was home but did not witness the event. She states has been in bed all day with a headache. She was able to ambulate into the kitchen and make some food but her head was getting worse. She also states she has chronic neck pain due to arthritis and is supposed to get injection with Dr. Priest on 02 October. She also has nausea. Patient denies any chest pain or shortness of breath. She denies any known symptoms before she went out last night. She believes she was unconscious for about 15 minutes. Her is not here in the emergency room and she states he is waiting in the car outside. [facility] Medical History Alcohol use Celiac disease Dietary restriction Gastric reflux History of depression History of GI bleed History of hiatal hernia History of rheumatic fever History of stress test Hoarseness Hypertension Non-smoker Osteoporosis Thyroid disease Walker as ambulation aid Wears hearing aid Home Medications amitriptyline 25 mg tablet 25 mg PO QHS 08/16/20 [History Last Taken 12/07/22] amlodipine 5 mg tablet 5 mg PO DAILY BP 08/16/20 [History Last Taken 12/06/22] azelastine 137 mcg (0.1 %) nasal spray aerosol 1 spray NASAL BID SINUS 08/16/20 [History Last Taken 12/07/22] fluticasone propionate 50 mcg/actuation nasal spray,suspension 1 spray NASAL BID allergies 08/16/20 [History Last Taken 12/07/22] 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 08/16/20 [History Last Taken 12/08/22] trazodone 50 mg tablet 50 mg PO QHS sleep 08/16/20 [History Last Taken 12/07/22] tramadol 50 mg tablet 50 mg PO Q8H 11/09/20 [History Last Taken 12/08/22] acetaminophen 500 mg tablet 500 mg PO Q6H PRN PRN Pain 1-10 Or Fever 11/22/20 [History Last Taken 12/07/22] pantoprazole 40 mg tablet,delayed release 40 mg PO BID GERD 11/22/20 [History Last Taken 12/07/22] levothyroxine 75 mcg tablet 75 mcg PO DAILY@0600 #30 tabs 11/25/20 [Rx Last Taken 12/08/22] lisinopril 20 mg tablet 20 mg PO DAILY 01/30/21 [History Last Taken 12/07/22] ondansetron 4 mg disintegrating tablet 4 mg PO Q8H PRN PRN Nausea #14 tabs 09/28/23 [Rx Last Taken Unknown] Allergy/AdvReac Type Severity Reaction Status Date / Time gluten Allergy Food Verified 01/18/23 20:27 Allergy grass pollen-perennial rye, Allergy sinus Verified 01/18/23 20:27 standar pressure [grass poll-perennial rye,std] house dust AdvReac Other Verified 01/18/23 20:27 lactose AdvReac Food Verified 01/18/23 20:27 Allergy mold AdvReac Other Verified 01/18/23 20:27 Surgical History History of back surgery History of bilateral salpingo-oophorectomy (BSO) History of biopsy of bladder History of cholecystectomy History of cystostomy History of hysterectomy History of right knee surgery History of shoulder surgery Social History Smoking Status: Never smoker alcohol intake: never ROS ROS ED ROS Narrative Dizziness Constitutional Constitutional ED: Denies chills, fever(s) or sweats Eyes Eyes: Denies blurry vision or change in vision ENT ENT ED: Denies ear pain or sore throat Cardiovascular Cardiovascular: Denies chest pain, palpitations or racing heartbeat Respiratory/Chest Respiratory/Chest: Denies cough, dyspnea or sputum Gastrointestinal Gastrointestinal: Reports nausea; Denies abdominal pain, constipation, diarrhea or vomiting Genitourinary Genitourinary ED: Denies dysuria, hematuria or urinary frequency Musculoskeletal Musculoskeletal: Denies arthralgias, myalgias or neck pain Integumentary Denies abscess, Abrasions or rash Neurologic Neurologic: Reports headache(s); Denies paresthesias or weakness Psychiatric Psychiatric: Denies anxiety, depression, suicidal ideation or suicidal thoughts Endocrine Endocrinology: Denies polydipsia or polyuria EXAM Physical Exam Const Vital Signs: 09/28/23 16:44 09/28/23 17:02 09/28/23 17:50 Temperature 97.8 F Temperature Source Temporal Pulse Rate 83 Respiratory Rate 16 Respiratory Effort Normal Respiratory Depth Normal Respiratory Pattern Normal Blood Pressure 157/72 H Blood Pressure Mean 100 Pulse Ox 100 96 Oxygen Delivery Method Room Air Room Air Room Air 09/28/23 19:09 09/28/23 21:20 09/28/23 22:08 Temperature 98 F 98.1 F Temperature Source Oral Pulse Rate 78 82 82 Respiratory Rate 12 16 16 Respiratory Effort Respiratory Depth Respiratory Pattern Blood Pressure 139/70 H 133/80 H 146/71 H Blood Pressure Mean 93 97 96 Pulse Ox 98 98 Oxygen Delivery Method Room Air Room Air Positive well nourished General Appearance ED: NAD HEENT HEENT Narrative: No evidence of basilar skull fracture. No hemotympanum. No mastoid tenderness. No jaw malocclusion. Dentition intact. Nasal bone midline without epistaxis. No obvious facial bone trauma. atraumatic Eyes PERRL and EOMs intact bilaterally Chest Wall inspection of chest normal Resp normal respiratory effort and clear to auscultation bilaterally Auscultation: Negative for rales, rhonchi or wheezes Cardio regular rhythm Rate: regular rate GI normal to inspection, nondistended, normoactive bowel sounds Back/Spine normal to inspection Extremity normal to inspection General Extremety ED: Negative for deformity or edema General Extremity: Negative for deformity or edema Neuro CN's II-XII intact bilaterally, moves all extremities, no focal motor deficits and no sensory deficits noted [place] Coma Scale: document GCS findings Spontaneous Obeys Commands Oriented 15 Sensorium / Orientation: alert Motor Exam: strength 5/5 throughout Psych mental status grossly normal Skin no wounds and no jaundice MDM MDM MDM Narrative Medical decision making narrative: 87-year-old female presenting for evaluation of a fall last evening. She states she cannot recall falling. She states EMS came out and saw her and she was okay by that point but believes she lost consciousness for about 15 minutes. Patient states her has been caring for her and she has been out of bed much today. She was able to get up and walk. Patient does have a headache. She states I think I have a concussion . Differential includes syncope, dys rhythmia, ACS, dehydration, electrolyte abnormalities, pneumonia, UTI. Patient found to have ruptured TM in the left eardrum. CT brain and cervical spine will be obtained to assess for intracranial injury or cervical spine injury. Chest x-ray to rule out pneumonia and EKG and high-sensitivity troponin to assess for ischemia. CBC to assess white blood cell count, hemoglobin, platelets. BMP to assess renal function, electrolytes. Urinalysis to assess for UTI. CT brain and cervical spine are negative. Chest x-ray my interpretation is no acute process. The radiologist interprets this and agrees. EKG on my interpretation shows normal sinus rhythm at a ventricular to 78 bpm without sign ischemic change. Urinalysis negative for UTI. Troponin came back at 10 therefore there is no significant interval change. Went back to the room the patient and family there which she did not have earlier. I discussed all the findings with them and at this point they stated that the patient had been started on muscle relaxers in addition to her pain medicine and the patient does take tramadol as well as gabapentin. I recommended that she discontinue the muscle relaxers as this is a new medication it is causing her to be altered. Otherwise her workup was normal with exception of a perforated TM. She states she sees ENT and I will give her follow-up. Impression: 1. Fall 2. closed head injury 3. Polypharmacy 4. Ruptured left TM 5. Concussion Lab Data Labs: Laboratory Results - last 24 hr 09/28/23 09/28/23 09/28/23 17:50 18:55 20:16 WBC 5.9 RBC 3.61 L Hgb 11.1 L Hct 35.6 L MCV 98.6 MCH 30.7 MCHC 31.2 L RDW Std Deviation 46.4 H RDW Coeff of Laury 12.9 Plt Count 285 MPV 9.0 Immature Gran % (Auto) 0.500 Neut % (Auto) 69.6 Lymph % (Auto) 18.8 L Barry % (Auto) 7.6 Eos % (Auto) 2.7 Baso % (Auto) 0.8 Absolute Neuts (auto) 4.1 Absolute Lymphs (auto) 1.11 Nucleated RBC % 0 Sodium 137 Potassium 4.3 Chloride 106 Carbon Dioxide 28.0 Anion Gap 3 L BUN 18 Creatinine 0.98 Estim Creat Clear Calc 43.46 Est GFR (MDRD) Af Amer 69 Est GFR (MDRD) Non-Af 57 L BUN/Creatinine Ratio 18.4 Glucose 100 Calcium 9.7 Troponin I High Sens 8 10 Urine Color Yellow Urine Clarity Clear Urine pH 8.0 Ur Specific [place] 1.010 Urine Protein Negative Urine Glucose (UA) Normal Urine Ketones Negative Urine Occult Blood 10 H Urine Nitrite Negative Urine Bilirubin Negative Urine Urobilinogen Normal Ur Leukocyte Esterase 100 H Urine RBC 0 SEEN Urine WBC 0-5 SEEN Ur Squamous Epith Cells 0 SEEN Urine Bacteria 2+ Urine Mucus 0 SEEN Radiography Diagnostic Testing: Clinical Impression(s) from Imaging Studies Brain CT 09/28/23 17:33 IMPRESSION: undefined Cervical Spine CT 09/28/23 17:33 IMPRESSION: undefined Chest X-Ray 09/28/23 18:14 IMPRESSION: No acute pulmonary disease. Electronically Signed: Jean Garcia MD at 18:36 EST Reading Location ID and State: [address] [place] [address] Tel , Service support , Discharge Plan Triage Chief Complaint: Head Injury ED Provider: Nelson Holman Dx/Rx/DC Orders Instructions: ED Head Injury (Adult), ED Ruptured Eardrum, Traumatic Prescriptions: New ondansetron 4 mg tablet,disintegrating 4 mg PO Q8H PRN PRN (Reason: Nausea) Qty: 14 0RF No Action trazodone 50 MG tablet 50 mg PO QHS amlodipine 5 MG tablet 5 mg PO DAILY amitriptyline 25 MG tablet 25 mg PO QHS Hold Instructions: Resume on 01/03/23. Hold until discussing with your primary care physician gabapentin 300 MG capsule 300 mg PO TID Hold Instructions: Resume on 12/27/22. Would recommend discussing this medication with your prescribing physician prior to resuming due to the increased risk of confusion and falls azelastine 1 SPRAY aerosol,spray 1 spray NASAL BID fluticasone propionate 1 SPRAY spray,suspension 1 spray NASAL BID tramadol 50 MG tablet 50 mg PO Q8H Hold Instructions: Resume on 12/27/22. Would recommend discussing this medication with your prescribing physician prior to resuming due to the increased risk of confusion and falls acetaminophen 500 MG tablet 500 mg PO Q6H PRN PRN (Reason: Pain 1-10 Or Fever) pantoprazole 40 MG tablet 40 mg PO BID levothyroxine 75 MCG tablet 75 mcg PO DAILY@0600 Qty: 30 0RF lisinopril 20 MG tablet 20 mg PO DAILY Primary Care Provider: Roma Grajeda Referrals: Roma Grajeda DO [Primary Care Provider] - Disposition Disposition: Home, Self Care
[2023-09-28] MEDS: Metoclopramide 10 MG/2 ML Vial IV (17:49)
[2023-09-28] MEDS: DiphenhydrAMINE 50 MG/ML Syringe 25 MG IV (17:49)
[2023-09-28 18:00] LABS: Absolute Lymphocyte Count 1.11 X10^3/uL (0.83-4.51); Absolute Neutrophil Count 4.1 X10^3/uL (2.0-7.7); Basophil# 0.05 X10^3/uL; Basophil% 0.8 % (0-1); Eosinophil# 0.16 X10^3/uL; Eosinophils% 2.7 % (0-5); Hematocrit 35.6 % (37-47); Hemoglobin 11.1 g/dL (12.0-15.0); Lymphocyte # 1.11 X10^3/ul (0.83-4.51); Lymphocyte % 18.8 % (19-41); Mean Corp Hgb Conc 31.2 g/dL (32-36); Mean Corpuscular Hgb 30.7 pg (27.0-32.0); Mean Corpuscular Volume 98.6 fL (81-99); Monocyte# 0.45 X10^3/uL; Monocyte% 7.6 % (0-10); NRBC Flagged by Analyzer 0 % (0-5); Neutrophil # 4.12 X10^3/uL (2.7-7.7); Neutrophil % 69.6 % (47-70); Platelet Count 285 K/mm3 (150-450); RBC Distribution Width CV 12.9 % (11.6-14.6); RBC Distribution Width SD 46.4 fl (35.1-43.9); Red Blood Count 3.61 M/mm3 (4.2-5.4); White Blood Count 5.9 K/mm3 (4.4-11.0)
--- NOTE | 2023-09-28 18:14 | RAD_ITS ---
INDICATION: chest pain EXAMINATION: Frontal view of the chest COMPARISON: Chest x-ray December 08, 2022. FINDINGS: Frontal view of the chest was obtained. The cardiac silhouette is not enlarged. No confluent airspace disease. No pneumothorax. Old rib fractures. No acute fracture identified. Bilateral shoulder prostheses. Spine stimulator. RAD/Chest 1 View (Portable) IMPRESSION: No acute pulmonary disease. Electronically Signed: Jean Garcia MD at 18:36 EST ,
[2023-09-28 18:18] LABS: Anion Gap 3 (5-15); BUN 18 mg/dL (7-18); BUN/Creat Ratio 18.4 RATIO (10-20); Calcium,Total 9.7 mg/dL (8.5-10.1); Chloride 106 mmol/L (98-107); Creatinine, Serum 0.98 mg/dL (0.55-1.02); EST Glomerular Filtration Rate 57 mL/min (>60); Est Glom Filt Rate - Afr Amer 69 mL/min (>60); Estimated Creatinine Clearance 43.46 ml/min; Glucose 100 mg/dL (74-106); Potassium 4.3 mmol/L (3.5-5.1); Sodium Level 137 mmol/L (136-145); Troponin-I HS (w/2H Reflex) 8 pg/mL (3.0-54.0)
[2023-09-28 19:07] LABS: Mucous, Urine 0 SEEN /hpf (<or=2+); Red Blood Cells-Urine 0 SEEN /hpf (0-5); Squamous Epithelial Cells - UA 0 SEEN /hpf (5-10)
[2023-09-28 19:11] LABS: Color, Urine Yellow (Yellow); Glucose, Dipstick Normal (Normal); Ketone-Dipstick Negative (Negative); Leukocyte Esterase-Dipstick 100 /ul (Negative); Nitrite-Dipstick Negative (Negative); Occult Blood-Urine 10 /ul (Negative); Protein-Dipstick Negative (Negative); Urine Bilirubin Dipstick Negative (Negative); Urine Clarity Clear (Clear); Urine Urobilinogen Normal (Normal)
[2023-09-28 19:29] LABS: Bacteria 2+ /hpf (None Seen)
[2023-09-28 19:30] LABS: White Blood Cells 0-5 SEEN /hpf (0-5)
[2023-09-28 19:54] LABS: Reflex Troponin-HS? (from REC) Y
[2023-09-28 20:40] LABS: Troponin-I HS 10 pg/mL (3.0-54.0)
--- NOTE | 2023-09-28 22:23 | NURSING ---
Dc instructions given. Pt assisted to sit on side of bed. Pt became very dizzy. Pt assisted back into bed. Orthostatic VS taken. and reported to .
--- NOTE | 2023-09-28 22:53 | HP.PCM.HOS_ITS ---
[facility] - General General Date of Admission: 09/28/23 Date of Service: 09/28/23 Chief Complaint: Headache, confusion, dizziness and unsteady gait HPI Narrative KAELA ROSALES, is a 87 F with a past medical history of essential hypertension, hypothyroidism, obesity; with BMI 30.8 this admission, remote history of rheumatic fever, history of celiac disease, GERD; with history of hiatal hernia and peptic ulcer disease with GI bleed, overactive bladder, history of recurrent UTIs, depression, osteoarthritis; with chronic neck pain (followed by pain management with frequent steroid injections) and history of multiple back surgeries, knee surgeries and shoulder surgeries plus osteoporosis who presents to [facility] ER complaining of headache, confusion and dizziness with inability to ambulate due to unsteady gait. Mrs. Rosales reports her symptoms began approximately 1 day prior to admission when she felt in her kitchen on the evening of 09/27/2023 with the patient not recalling exactly what happened until she found herself on her kitchen floor with her not there to witness the event but he was also at home. She believes she was on the floor for approximately 15 minutes but she is not exactly sure. EMS was then called and they came to evaluate her but they detected no acute severe injury so she was not transported at that time. Then earlier on 09/28/2023 she has been in the bed all day with a generalized tension type headache but she denies focal neurologic deficits or slurred speech. She denies associated fever, chills, vomiting or shortness of breath but she does admit to intermittent nausea. In the ER her CT scan of the head was negative for acute pathologic changes but she was noted to have a ruptured left tympanic membrane with clinical evidence of concussion complicated by polypharmacy and generalized weakness with ambulatory dysfunction that has worsened since her fall and she was then admitted to the general medical floor under observation status for ongoing care for stay that is expected to be less than 48 hours. [facility] Medical History (Updated 09/29/23 @ 07:[address] Joni Torres DO) Alcohol use Anemia Anxiety Celiac disease Chronic pain Depression Dietary restriction Gastric reflux GERD (gastroesophageal reflux disease) GI bleed Hearing loss, left Hearing loss, right History of depression History of GI bleed History of hiatal hernia History of rheumatic fever History of stress test Hoarseness Hypertension Hypothyroidism Non-smoker Osteoporosis Osteoporosis Thyroid disease Walker as ambulation aid Wears hearing aid Wears hearing aid in both ears Home Medications amitriptyline 25 mg tablet 25 mg PO QHS 08/16/20 [History Last Taken 12/07/22] amlodipine 5 mg tablet 5 mg PO DAILY BP 08/16/20 [History Last Taken 12/06/22] azelastine 137 mcg (0.1 %) nasal spray aerosol 1 spray NASAL BID SINUS 08/16/20 [History Last Taken 12/07/22] fluticasone propionate 50 mcg/actuation nasal spray,suspension 1 spray NASAL BID allergies 08/16/20 [History Last Taken 12/07/22] 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 08/16/20 [History Last Taken 12/08/22] trazodone 50 mg tablet 50 mg PO QHS sleep 08/16/20 [History Last Taken 12/07/22] tramadol 50 mg tablet 50 mg PO Q8H 11/09/20 [History Last Taken 12/08/22] acetaminophen 500 mg tablet 500 mg PO Q6H PRN PRN Pain 1-10 Or Fever 11/22/20 [History Last Taken 12/07/22] pantoprazole 40 mg tablet,delayed release 40 mg PO BID GERD 11/22/20 [History Last Taken 12/07/22] levothyroxine 75 mcg tablet 75 mcg PO DAILY@0600 #30 tabs 11/25/20 [Rx Last Taken 12/08/22] lisinopril 20 mg tablet 20 mg PO DAILY 01/30/21 [History Last Taken 12/07/22] ondansetron 4 mg disintegrating tablet 4 mg PO Q8H PRN PRN Nausea #14 tabs 09/08 11/30 [Rx Last Taken Unknown] Allergy/AdvReac Type Severity Reaction Status Date / Time gluten Allergy Food Verified 01/18/23 20:27 Allergy grass pollen-perennial rye, Allergy sinus Verified 01/18/23 20:27 standar pressure [grass poll-perennial rye,std] house dust AdvReac Other Verified 01/18/23 20:27 lactose AdvReac Food Verified 01/18/23 20:27 Allergy mold AdvReac Other Verified 01/18/23 20:27 Surgical History History of back surgery History of bilateral salpingo-oophorectomy (BSO) History of biopsy of bladder History of cholecystectomy History of cystostomy History of hysterectomy History of right knee surgery History of shoulder surgery Social History Smoking Status: Never smoker alcohol intake: never ROS ROS Narrative Review of systems: Constitutional: Patient denies fevers, chills or night sweats. Eyes: Patient denies blurry vision or discharge from eyes. ENT: Patient denies ear pain, sore throat or rhinorrhea. Cardiovascular: Patient denies chest pain, chest pressure or palpitations. Respiratory: Patient denies shortness of breath or cough. Gastrointestinal: Patient admits to nausea but denies vomiting or abdominal pain. Genitourinary: Patient denies dysuria, hematuria or urinary frequency. Musculoskeletal: Patient admits to chronic neck pain. Integumentary: Patient denies abscess, abrasions or rash. Neurologic: Patient admits to headache but denies paresthesias or focal neurologic weakness. Psychiatric: Patient denies uncontrolled depression or anxiety. Endocrine: Patient denies polyuria, polydipsia or polyphagia. Allergic: Patient denies lip swelling, tongue swelling or urticaria. Hematologic: Patient denies easy bleeding or easy bruisability. 14 point review system otherwise negative except for positives noted above in HPI. Vital Signs Vital Signs Vital Signs: 09/28/23 16:44 09/28/23 17:02 09/28/23 17:50 Temperature 97.8 F Temperature Source Temporal Pulse Rate 83 Pulse Rate [Lying] Pulse Rate [Sitting (for 1 minute prior to obtaining)] Respiratory Rate 16 Respiratory Effort Normal Respiratory Depth Normal Respiratory Pattern Normal Blood Pressure 157/72 H Blood Pressure [Lying] Blood Pressure [Sitting (for 1 minute prior to obtaining)] Blood Pressure Mean 100 Blood Pressure Mean [Lying] Blood Pressure Mean [Sitting (for 1 minute prior to obtaining)] Pulse Ox 100 96 Oxygen Delivery Method Room Air Room Air Room Air 09/28/23 19:09 09/28/23 21:20 09/28/23 22:08 Temperature 98 F 98.1 F Temperature Source Oral Pulse Rate 78 82 82 Pulse Rate [Lying] Pulse Rate [Sitting (for 1 minute prior to obtaining)] Respiratory Rate 12 16 16 Respiratory Effort Respiratory Depth Respiratory Pattern Blood Pressure 139/70 H 133/80 H 146/71 H Blood Pressure [Lying] Blood Pressure [Sitting (for 1 minute prior to obtaining)] Blood Pressure Mean 93 97 96 Blood Pressure Mean [Lying] Blood Pressure Mean [Sitting (for 1 minute prior to obtaining)] Pulse Ox 98 98 Oxygen Delivery Method Room Air Room Air 09/28/23 22:23 Temperature Temperature Source Pulse Rate Pulse Rate [Lying] 87 Pulse Rate [Sitting (for 1 minute prior to obtaining)] 89 Respiratory Rate Respiratory Effort Respiratory Depth Respiratory Pattern Blood Pressure Blood Pressure [Lying] 158/83 H Blood Pressure [Sitting (for 1 minute prior to obtaining)] 155/91 H Blood Pressure Mean Blood Pressure Mean [Lying] 108 Blood Pressure Mean [Sitting (for 1 minute prior to obtaining)] 112 Pulse Ox Oxygen Delivery Method Weight Weight: 147 lb 4.8 oz Body Mass Index (BMI) 30.7 Physical Exam Const alert, oriented x3, no apparent distress and average body habitus General Appearance: cooperative HEENT normocephalic, head/scalp atraumatic, hearing grossly normal bilaterally, moist oral mucous membranes and oropharynx normal HEENT Narrative: Patient was noted to have a ruptured left tympanic membrane. Eyes PERRL, EOMs intact bilaterally and conjunctivae normal Neck no lymphadenopathy and supple Resp normal respiratory effort, no retractions, no use of accessory muscles and clear to auscultation bilaterally Cardio regular rate and regular rhythm GI normal to inspection, nondistended, normoactive bowel sounds, soft to palpation, non-tender and non-distended Extremity normal to inspection, full ROM and no clubbing, cyanosis or edema Skin Skin Narrative: Patient has no evidence of rash at this time. Neuro oriented x3, CN's II-XII intact bilaterally, moves all extremities and no focal motor deficits Sensorium / Orientation: awake, alert, oriented to person, oriented to place and oriented to time Motor Exam: strength 5/5 throughout Psych affect normal Results Medical Records Data Attestation: I reviewed the patient's medical records Lab / Micro Data Attestation: I reviewed the patient's lab results. 09/28/23 17:50 09/28/23 17:50 Labs: Laboratory Results - last 24 hr 09/28/23 17:50: WBC 5.9, RBC 3.61 L, Hgb 11.1 L, Hct 35.6 L, MCV 98.6, MCH 30.7, MCHC 31.2 L, RDW Std Deviation 46.4 H, RDW Coeff of Laury 12.9, Plt Count 285, MPV 9.0, Immature Gran % (Auto) 0.500, Neut % (Auto) 69.6, Lymph % (Auto) 18.8 L, [place] % (Auto) 7.6, Eos % (Auto) 2.7, Baso % (Auto) 0.8, Absolute Neuts (auto) 4.1, Absolute Lymphs (auto) 1.11, Nucleated RBC % 0, Sodium 137, Potassium 4.3, Chloride 106, Carbon Dioxide 28.0, Anion Gap 3 L, BUN 18, Creatinine 0.98, Estim Creat Clear Calc 43.46, Est GFR (MDRD) Af Amer 69, Est GFR (MDRD) Non-Af 57 L, BUN/Creatinine Ratio 18.4, Glucose 100, Calcium 9.7, Troponin I High Sens 8 09/28/23 18:55: Urine Color Yellow, Urine Clarity Clear, Urine pH 8.0, Ur Specific [place] 1.010, Urine Protein Negative, Urine Glucose (UA) Normal, Urine Ketones Negative, Urine Occult Blood 10 H, Urine Nitrite Negative, Urine Bilirubin Negative, Urine Urobilinogen Normal, Ur Leukocyte Esterase 100 H, Urine RBC 0 SEEN, Urine WBC 0-5 SEEN, Ur Squamous Epith Cells 0 SEEN, Urine Bacteria 2+, Urine Mucus 0 SEEN 09/28/23 20:16: Troponin I High Sens 10 Imagaing Rad[address] CT 09/28/23 17:33 IMPRESSION: undefined Cervical Spine CT 09/28/23 17:33 IMPRESSION: undefined Chest X-Ray 09/28/23 18:14 IMPRESSION: No acute pulmonary disease. Electronically Signed: Jean Garcia MD at 18:36 EST , Assessment & Plan Assessment/Plan (1) Ruptured tympanic membrane: QUALIFIERS: Laterality: left Qualified Code(s): H72.92 - Unspecified perforation of tympanic membrane, left ear (2) Concussion: QUALIFIERS: Encounter type: initial encounter Loss of consciousness presence/duration: unknown LOC status Qualified Code(s): S06.0XAA - Concussion with loss of consciousness status unknown, initial encounter (3) History of recent fall: PLAN: Plan 1. Closed head injury after mechanical fall with persistent headache and suspected concussion - Admit to general medical floor under observation status. Give Tylenol as needed pain or fever. Minimize [employer]OR-active medications. PT/OT and case management to consult and treat on rounds in the a.m. with help appreciated in advance. 2. Ruptured left tympanic membrane likely precipitating #1 - Start treatment with Cipro otic drops and monitor for improvement. 3. Osteoarthritis; with chronic neck pain and history of multiple back surgeries, knee surgeries and shoulder surgeries plus osteoporosis complicating #1 & #2 - Noted. Since her tramadol dose has been cut back and patient does not tolerate steroids well we will treat with Toradol see if this agent will be more effective in controlling her symptoms without causing untoward side effects. 4. Polypharmacy; with patient on scheduled tramadol 50 mg p.o. 3 times daily scheduled with ongoing generalized weakness and impaired balance causing persistent ambulatory dysfunction arising from #1 - #3 - Minimize [employer]OR-active medications and decrease tramadol to twice daily and monitor for improvement.. 5. Essential hypertension - Continue home medications as previous plus give as needed IV hydralazine for systolic blood pressure greater than or equal to 160 mmHg. 6. Hypothyroidism - Resume Synthroid and check TSH. 7. Obesity; with BMI 30.8 this admission - Weight loss will be recommended. 8. Remote history of rheumatic fever as a child - Noted. 9. History of celiac disease - Stable. 10. GERD; with history of hiatal hernia and peptic ulcer disease with GI bleed - Resume PPI as previous. 11. Overactive bladder - Stable. 12. History of recurrent UTIs - Noted UA negative for infection this admission. 13. Depression - Continue home regimen. 14. DVT prophylaxis - Heparin 5,000 units SQ twice daily plus SCDs. Total time: Approximately 45 minutes. Charges/Coding Visit Charges OBSV E&M: 85760 Observ/hosp same date L1
[2023-09-29] VITALS (8 sets, daily range): BP systolic 138–149; BP diastolic 64–91; PULSE 72–82; RESP 16–18; TEMP 36.4–36.6; O2SAT 94–98; BMI 30.3; BMI 30.4
[2023-09-29] MEDS: Ciprofloxacin 0.3% 2.5ml Bottle 2 DRP LEFT EAR ×3 (00:13→21:46)
--- OUTSIDE RECORDS SUMMARY | 2023-09-29 00:36 | XMS RPT_ITS | CCD ---
Author Name Unknown Address [address] [place] [address] Organization [facility] Care Team Providers Care Director Translation Name Role Phone Rupinder Zhu LPN Unavailab le Allergies Allergy Classification Reported Allergen(s) Allergy Type Date of Onset Reaction(s) Facility (1 source) Allergic rhinitis due to pollen; Translations: [HAY FEVER] allergy to substance [facility] Work Phone: (1 source) Dust; Translations: [DUST] allergy to substance 05-04-2014 [facility] Work Phone: (1 source) Mold Extract; Translations: [MOLD] Drug Allergy [facility] Work Phone: Medications Completed/Discontinued Medications Medication Drug Class(es) Dates Sig (Normalized) Sig (Original) acetaminophen 33.3 mg/ml oral solution (1 source) Start: 05-04-2014 TYLENOL 500 MG/15ML LIQD every 8 hrs as needed ACETAMINOPHEN [id number] Roma Grajeda DO ALUM & MAG HYDROXIDE-SIMETH SUSP (2 sources) Start: 05-04-2014 End: 12-14-2015 MYLANTA SUSP two tsp as needed ALUM & MAG HYDROXIDE-SIMETH SUSP [id number] Roma Grajeda DO Problems Active Problems Problem [...] Mass Index) 29.28 kg/m2 Rupinder Zhu LPN [facility] Work Phone: 07-11-2017 15:20-0400 Body Temperature 99.2 [degF] Rupinder Zhu LPN [facility] Work Phone: 07-11-2017 15:20-0400 BP Diastolic 72 mm[Hg] Rupinder Zhu LPN [facility] Work Phone: 07-11-2017 15:20-0400 BP Systolic 128 mm[Hg] Rupinder Zhu LPN [facility] Work Phone: 07-11-2017 15:20-0400 Height 149.86 cm Rupinder Zhu LPN [facility] Work Phone: 07-11-2017 15:20-0400 Pulse (Heart Rate) 93 /min Rupinder Zhu LPN [facility] Work Phone: 07-11-2017 15:20-0400 Respiratory Rate 16 /min Rupinder Zhu LPN [facility] Work Phone: 07-11-2017 15:20-0400 Weight 65.77 kg Rupinder Zhu LPN [facility] Work Phone: 04-24-2016 12:15-0400 BSA (Body Surface Area) 1.58 m2 Rupinder Zhu LPN [facility] Work Phone: 04-12-2016 06:15-0400 Body surface area Derived from formula 45.73 mL/min Rupinder Zhu OBED [facility] Work Phone: Procedures Date Procedure [...] Author Start: 07-11-2017 End: 07-11-2017 Appointment Appointment [facility] Work Phone: Start: 12-14-2015 End: 12-14-2015 *CBC with Differential *CBC with Differential [facility] Work Phone: Start: 10-15-2015 End: 10-15-2015 *CBC with Differential *CBC with Differential [facility] Work Phone: Start: 10-15-2015 End: 10-15-2015 *CMP Complete Metabolic Panel *CMP Complete Metabolic Panel [facility] Work Phone: Start: 04-12-2015 End: 04-12-2015 *CBC with Differential *CBC with Differential [facility] Work Phone: Start: 04-12-2015 End: 04-13-2015 *CMP Complete Metabolic Panel *CMP Complete Metabolic Panel [facility] Work Phone: Start: 04-12-2015 End: 04-12-2015 25-Hydroxyvitamin D2+25-Hydroxyvitamin D3 mass conc *Vitamin D (Calciferol) [facility] Work Phone: Start: 04-12-2015 End: 04-13-2015 Iron mass conc *Iron [facility] Work Phone: Start: 04-12-2015 End: 04-13-2015 Thyrotropin Qn *TSH [facility] Work Phone: Start: 03-10-2015 End: 03-10-2015 Bacteria identified Cx Nom (U) *CUUR - Culture, Urine ([place] Count) [facility] Work Phone: Start: 03-10-2015 End: 03-29-2015 Urology Referral [facility] Work Phone: Start: 02-03-2015 End: 02-03-2015 Mammogram, Screening, both breasts Mammogram, Screening, both breasts [facility] Work Phone: Start: 12-22-2014 End: 12-23-2014 Gastroenterology Referral Gastroenterology Referral Baodonald Jordan, [address] [place] [address], [address], [place], [address] [facility] Work Phone: Start: 12-07-2014 End: 12-09-2014 *B12FO Vitamin B12 and Folates *B12FO Vitamin B12 and Folates [facility] Work Phone: Start: 12-07-2014 End: 12-10-2014 *CBC with Differential *CBC with Differential [facility] Work Phone: Start: 12-07-2014 End: 12-09-2014 *CMP Complete Metabolic Panel *CMP Complete Metabolic Panel [facility] Work Phone: Start: 12-07-2014 End: 12-09-2014 Ferritin mass conc *Ferritin [facility] Work Phone: Start: 12-07-2014 End: 12-09-2014 Iron and Iron binding capacity panel - Serum or Plasma *IBC Iron & Total Iron Binding Capacity [facility] Work Phone: Start: 12-07-2014 End: 12-09-2014 Lipid 1996 panel *Lipid Profile [facility] Work Phone: Start: 12-07-2014 End: 12-09-2014 Thyrotropin Qn *TSH [facility] Work Phone: Start: 08-17-2014 End: 12-10-2014 Bacteria identified Cx Nom (U) *CUUR - Culture, Urine ([place] Count) [facility] Work Phone: Start: 08-17-2014 End: 12-10-2014 Urnls dip stick/tablet rgnt non-auto w/o micrscp UA Dipstick (Office) [facility] Work Phone: Start: 07-28-2014 End: 12-10-2014 *CUUID - Urine [place] Culture - Identificatn *CUUID - Urine [place] Culture - Identificatn [facility] Work Phone: Start: 07-28-2014 End: 12-10-2014 Follow-up visit Follow Up as needed [facility] Work Phone: Start: 07-28-2014 End: 07-29-2014 Urinalysis complete panel - Urine *UAC- Urinalysis, Complete w/ Micro [facility] Work Phone: Start: 07-28-2014 End: 12-10-2014 Urnls dip stick/tablet rgnt non-auto w/o micrscp UA Dipstick (Office) [facility] Work Phone: Start: 05-21-2014 End: 12-10-2014 *CUUID - Urine [place] Culture - Identificatn *CUUID - Urine [place] Culture - Identificatn [facility] Work Phone: Start: 05-21-2014 End: 12-10-2014 Arthrocentesis aspir&/inj major jt/bursa w/o us Injection, Joint (major) [facility] Work Phone: Start: 05-21-2014 End: 12-10-2014 Dermatology Referral Dermatology Referral Marylin Camacho, [address] [place], [address] [facility] Work Phone: Start: 05-21-2014 End: 12-10-2014 Triamcinolone acet inj NOS Kenalog per 10 mg [facility] Work Phone: Start: 05-21-2014 End: 12-10-2014 Urnls dip stick/tablet rgnt non-auto w/o micrscp UA Dipstick (Office) [facility] Work Phone: Start: 05-04-2014 End: 05-08-2014 *CBC with Differential *CBC with Differential [facility] Work Phone: Start: 05-04-2014 End: 12-10-2014 Follow Up Appt 3 months Follow Up Appt 3 months [facility] Work Phone: Immunizations Immunization Date Immunization Notes Care Provider Fa judy 07-11-2017 tetanus toxoid, redu erika diphtheria toxoid, and acellular pertussis vaccine, adsorbed Rupinder Zhu LPN [facility] Work Phone: 07-11-2017 [id number] Rupinder Zhu LPN [facility] Work Phone: Summary Purpose [...] BE BASED ON THE PRIMARY CLINICAL RECORDS. [email or web address] provides no warranty or guarantee of the accuracy or completeness of information in this document.
[2023-09-29] MEDS: Ketorolac 15 MG/ML Vial IV (01:54)
[2023-09-29] MEDS: 0.9% Normal Saline (1000mL) 1,000 ML 75 ML IV ×2 (01:54→14:12)
[2023-09-29] MEDS: 0.9% Saline Lock 10 ML Syringe IV (01:54)
[2023-09-29] MEDS: Levothyroxine 75 MCG Tablet PO (06:09)
[2023-09-29] MEDS: Gabapentin 300 MG Capsule PO ×3 (06:09→21:47)
[2023-09-29 07:31] LABS: Absolute Lymphocyte Count 0.89 X10^3/uL (0.83-4.51); Absolute Neutrophil Count 4.1 X10^3/uL (2.0-7.7); Basophil# 0.04 X10^3/uL; Basophil% 0.7 % (0-1); Eosinophil# 0.14 X10^3/uL; Eosinophils% 2.5 % (0-5); Hematocrit 33.5 % (37-47); Hemoglobin 10.5 g/dL (12.0-15.0); Lymphocyte # 0.89 X10^3/ul (0.83-4.51); Lymphocyte % 15.7 % (19-41); Mean Corp Hgb Conc 31.3 g/dL (32-36); Mean Corpuscular Hgb 30.2 pg (27.0-32.0); Mean Corpuscular Volume 96.3 fL (81-99); Monocyte# 0.45 X10^3/uL; Monocyte% 7.9 % (0-10); NRBC Flagged by Analyzer 0 % (0-5); Neutrophil # 4.12 X10^3/uL (2.7-7.7); Neutrophil % 72.7 % (47-70); Platelet Count 276 K/mm3 (150-450); RBC Distribution Width CV 12.9 % (11.6-14.6); RBC Distribution Width SD 45.3 fl (35.1-43.9); Red Blood Count 3.48 M/mm3 (4.2-5.4); White Blood Count 5.7 K/mm3 (4.4-11.0)
[2023-09-29 08:01] LABS: ALB/GLOB Ratio 0.9 RATIO (0.9-2.4); AST(SGOT) 15 U/L (15-37); Alanine Aminotransfer ALT/SGPT 14 U/L (13-56); Alkaline Phosphatase 77 U/L (45-117); Anion Gap 3 (5-15); BUN 12 mg/dL (7-18); BUN/Creat Ratio 18.3 RATIO (10-20); Calcium,Total 8.8 mg/dL (8.5-10.1); Chloride 108 mmol/L (98-107); Creatinine, Serum 0.66 mg/dL (0.55-1.02); EST Glomerular Filtration Rate 91 mL/min (>60); Est Glom Filt Rate - Afr Amer 110 mL/min (>60); Estimated Creatinine Clearance 41.93 ml/min; Globulin 3.5 g/dL (2.2-4.2); Glucose 88 mg/dL (74-106); Magnesium 2.2 mg/dL (1.6-2.6); Phosphorus 2.9 mg/dL (2.5-4.9); Potassium 3.5 mmol/L (3.5-5.1); Protein, Total 6.5 g/dL (6.4-8.2); Sodium Level 138 mmol/L (136-145)
--- NOTE | 2023-09-29 09:39 | PN.HOSP_ITS ---
Subjective Subjective A little groggy this morning unclear if it is due to the concussion or just being tired Objective Data Objective Data Vital Signs: Vital Signs Temp Pulse Resp BP Pulse Ox O2 Del Method 97.6 F L 72 16 140/64 H 94 Room Air 09/29/23 06:11 09/29/23 06:11 09/29/23 06:11 09/29/23 06:11 09/29/23 07:12 09/29/23 07:12 Oxygen Delivery Method Room Air Weight: 144 lb 15.968 oz Body Mass Index (BMI) 30.4 Intake & Output: Intake and Output for Last 24 Hours 09/28/23 09/29/23 09/30/23 03:59 03:59 03:59 Output Total 1050 / 1050 Balance -1050 / -1050 Lab / Micro Data 09/29/23 06:56 09/29/23 06:56 Labs: Laboratory Results - last 24 hr 09/28/23 17:50: WBC 5.9, RBC 3.61 L, Hgb 11.1 L, Hct 35.6 L, MCV 98.6, MCH 30.7, MCHC 31.2 L, RDW Std Deviation 46.4 H, RDW Coeff of Laury 12.9, Plt Count 285, MPV 9.0, Immature Gran % (Auto) 0.500, Neut % (Auto) 69.6, Lymph % (Auto) 18.8 L, [place] % (Auto) 7.6, Eos % (Auto) 2.7, Baso % (Auto) 0.8, Absolute Neuts (auto) 4.1, Absolute Lymphs (auto) 1.11, Nucleated RBC % 0, Sodium 137, Potassium 4.3, Chloride 106, Carbon Dioxide 28.0, Anion Gap 3 L, BUN 18, Creatinine 0.98, Estim Creat Clear Calc 43.46, Est GFR (MDRD) Af Amer 69, Est GFR (MDRD) Non-Af 57 L, BUN/Creatinine Ratio 18.4, Glucose 100, Calcium 9.7, Troponin I High Sens 8 09/28/23 18:55: Urine Color Yellow, Urine Clarity Clear, Urine pH 8.0, Ur Spec ific [place] 1.010, Urine Protein Negative, Urine Glucose (UA) Normal, Urine Ketones Negative, Urine Occult Blood 10 H, Urine Nitrite Negative, Urine Bilirubin Negative, Urine Urobilinogen Normal, Ur Leukocyte Esterase 100 H, Urine RBC 0 SEEN, Urine WBC 0-5 SEEN, Ur Squamous Epith Cells 0 SEEN, Urine Bacteria 2+, Urine Mucus 0 SEEN 09/28/23 20:16: Troponin I High Sens 10 09/29/23 06:56: WBC 5.7, RBC 3.48 L, Hgb 10.5 L, Hct 33.5 L, MCV 96.3, MCH 30.2, MCHC 31.3 L, RDW Std Deviation 45.3 H, RDW Coeff of Laury 12.9, Plt Count 276, MPV 9.0, Immature Gran % (Auto) 0.500, Neut % (Auto) 72.7 H, Lymph % (Auto) 15.7 L, [place] % (Auto) 7.9, Eos % (Auto) 2.5, Baso % (Auto) 0.7, Absolute Neuts (auto) 4.1, Absolute Lymphs (auto) 0.89, Nucleated RBC % 0, Sodium 138, Potassium 3.5, Chloride 108 H, Carbon Dioxide 27.0, Anion Gap 3 L, BUN 12, Creatinine 0.66, Estim Creat Clear Calc 41.93, Est GFR (MDRD) Af Amer 110, Est GFR (MDRD) Non-Af 91, BUN/Creatinine Ratio 18.3, Glucose 88, Calcium 8.8, Phosphorus 2.9, Magnesium 2.2, Total Bilirubin 0.50, AST 15, ALT 14, Alkaline Phosphatase 77, Total Protein 6.5, Albumin 3.0 L, Globulin 3.5, Albumin/Globulin Ratio 0.9, TSH 3.10 Radiography Diagnostic Testing: Radiology Impression Brain CT 09/28/23 17:33 IMPRESSION: undefined Cervical Spine CT 09/28/23 17:33 IMPRESSION: undefined Chest X-Ray 09/28/23 18:14 IMPRESSION: No acute pulmonary disease. Electronically Signed: Jean Garcia MD at 18:36 EST , Physical Exam Narrative General: Alert but tired, Oriented x3, Cooperative, No apparent distress HEENT: Atraumatic, PERRLA, EOMI, Normocephalic Oral: Moist Mucosa Neck: Supple, No JVD Lungs: Clear to auscultation, Normal air movement, No rhonchi, No wheeze, No rales Cardiovascular: Regular rate, Regular Rhythm, Normal S1, Normal S2, No murmurs Abdomen: Soft, Non Tender, Non-Distended, No Hepato-splenomegaly Extremities: No edema, Capillary Refill Less than 3 Seconds Skin: No rashes, No breakdown Musculoskeletal: No Tenderness to Palpation of Joints or Extremities Neurological: Cranial nerves II-XII grossly intact, Motor Exam 5/5 strength throughout, Sensory exam intact to light touch and pain Psych/Mental Status: Normal Affect, Appropriate Assessment & Plan Assessment/Plan (1) Ruptured tympanic membrane: QUALIFIERS: Laterality: left Qualified Code(s): H72.92 - Unspecified perforation of tympanic membrane, left ear (2) Concussion: QUALIFIERS: Encounter type: initial encounter Loss of consciousness presence/duration: unknown LOC status Qualified Code(s): S06.0XAA - Concussion with loss of consciousness status unknown, initial encounter (3) History of recent fall: PLAN: Plan 1. Closed head injury after mechanical fall with continued headache and probable concussion ? Continue with monitoring and will treat headache with Tylenol ? PT/OT ? She does have a ruptured left tympanic membrane seen on admission started with Cipro drops will need outpatient follow-up 2. HTN ? Blood pressures are stable ? Can resume her home blood pressure medications ? We will monitor make adjustments as necessary 3. Hypothyroidism ? Stable ? Continue Synthroid 4. GERD ? Stable ? Continue with PPI 5. Anxiety/depression ? Stable ? Continue with her home medications DVT: Heparin Charges/Coding Visit Charges Inpatient E&M: 38372 Subs Hosp L2
[2023-09-29] MEDS: Azelastine HCl NASAL.SRY 1 SPRAY NASAL ×2 (10:01→21:46)
[2023-09-29] MEDS: Fluticasone 0.05% 1 SPRAY NASAL.SRY NASAL ×2 (10:02→21:48)
[2023-09-29] MEDS: Menthol/Lanolin/Calamine/Znox 113 GM Tube 1 APPLIC TOPICAL ×2 (10:02→21:59)
[2023-09-29] MEDS: traMADol 50 MG Tablet PO ×2 (10:03→21:48)
[2023-09-29] MEDS: Lisinopril 20 MG Tablet PO (10:03)
[2023-09-29] MEDS: Pantoprazole Sodium 40 MG Tablet PO ×2 (10:03→21:49)
[2023-09-29] MEDS: Acetaminophen 500 MG Tablet PO ×2 (14:09→21:47)
--- NOTE | 2023-09-29 16:53 | CASEMGMT ---
Social Work SW introduced self and role to patient. SW checked on patient regarding d/c needs. Pt very hard of hearing and her hearing aides are /has a ruptured eardrum. Pt reports falling at home and being dizzy. Additionally pt reports her spouse is becoming increasingly forgetful and she believes assisted living is needed. Pt reports they live in a condo but they were looking into [facility]. SW notified later that patient was in need of more PT/SNF placement due to dizziness and being unable to walk. Pt is very hard of hearing making conversation difficult, SW waiting until patient's son Go arrived to discuss d/c planning. Go - [phone], believes SNF is needed and reports they have been trying to get their parents to go to SNF or [place] for a few years due to safety concerns. Go also expressed concerns for father's memory and being independent in the home. Go reports patient would like TCU and has been to TCU in the past. SW explained patient would likely not get placed until after the holiday due to precert being required. SW made referral to TCU. Radha Love METAL FRAMER, ACTIVATED SLUDGE OPERATOR
--- NOTE | 2023-09-29 19:12 | CASEMGMT ---
JAYDEN MENDOZA in to complete ORTIZ for with patient. RN KELLY explained ORTIZ form to patient, patient voiced understanding. Patient signed ORTIZ form and filed in chart. Patient provided copy of signed ORTIZ form. Patient had no further questions or concerns.
[2023-09-29] MEDS: traZODone 50 MG Tablet PO (21:48)
[2023-09-29] MEDS: Heparin Injection (Vial) 5,000 UNIT/ML VIAL 5000 UNIT SC (21:48)
[2023-09-29] MEDS: Amitriptyline 25 MG Tablet PO (21:48)
[2023-09-30 03:00] VITALS: BP 138/94; PULSE 83; RESP 16; TEMP 36.4; O2SAT 97
[2023-09-30] MEDS: 0.9% Normal Saline (1000mL) 1,000 ML 75 ML IV (04:26)
[2023-09-30 05:51] LABS: Absolute Neutrophil Count 3.8 X10^3/uL (2.0-7.7); Basophil# 0.05 X10^3/uL; Basophil% 0.9 % (0-1); Eosinophil# 0.23 X10^3/uL; Hematocrit 34.4 % (37-47); Hemoglobin 10.5 g/dL (12.0-15.0); Lymphocyte % 19.3 % (19-41); Mean Corp Hgb Conc 30.5 g/dL (32-36); Mean Corpuscular Hgb 30.2 pg (27.0-32.0); Mean Corpuscular Volume 98.9 fL (81-99); Monocyte# 0.53 X10^3/uL; Monocyte% 9.3 % (0-10); NRBC Flagged by Analyzer 0 % (0-5); Neutrophil # 3.75 X10^3/uL (2.7-7.7); Neutrophil % 65.8 % (47-70); Platelet Count 273 K/mm3 (150-450); RBC Distribution Width CV 13.1 % (11.6-14.6); RBC Distribution Width SD 46.6 fl (35.1-43.9); Red Blood Count 3.48 M/mm3 (4.2-5.4); White Blood Count 5.7 K/mm3 (4.4-11.0)
[2023-09-30 06:00] VITALS: BMI 31.0
[2023-09-30 06:14] LABS: Anion Gap 5 (5-15); BUN 11 mg/dL (7-18); BUN/Creat Ratio 18.3 RATIO (10-20); Calcium,Total 8.3 mg/dL (8.5-10.1); Chloride 113 mmol/L (98-107); EST Glomerular Filtration Rate 100 mL/min (>60); Est Glom Filt Rate - Afr Amer 121 mL/min (>60); Estimated Creatinine Clearance 41.93 ml/min; Glucose 91 mg/dL (74-106); Potassium 3.4 mmol/L (3.5-5.1); Sodium Level 142 mmol/L (136-145)
[2023-09-30] MEDS: Gabapentin 300 MG Capsule PO ×3 (06:32→21:18)
[2023-09-30] MEDS: Acetaminophen 500 MG Tablet PO ×3 (06:32→21:17)
[2023-09-30] MEDS: Levothyroxine 75 MCG Tablet PO (06:32)
--- NOTE | 2023-09-30 08:50 | PCM.PN.HOSP ---
Subjective Subjective Still drowsy but she was able to get up yesterday with physical therapy but was unable to do much, will likely need placement Objective Data Objective Data Vital Signs: Vital Signs Temp Pulse Resp BP Pulse Ox O2 Del Method 97.5 F L 83 16 138/94 H 97 Room Air 09/30/23 03:00 09/30/23 03:00 09/30/23 03:00 09/30/23 03:00 09/30/23 03:00 09/30/23 03:00 Oxygen Delivery Method Room Air Weight: 147 lb 14.883 oz Body Mass Index (BMI) 31.0 Intake & Output: Intake and Output for Last 24 Hours 09/29/23 09/30/23 10/01/23 03:59 03:59 03:59 Intake Total 2072.5 / 2072.5 200 / 200 Output Total 2750 / 2750 Balance -677.5 / -677.5 200 / 200 Lab / Micro Data 09/30/23 05:10 09/30/23 05:10 Labs: Laboratory Results - last 24 hr 09/30/23 05:10: WBC 5.7, RBC 3.48 L, Hgb 10.5 L, Hct 34.4 L, MCV 98.9, MCH 30.2, MCHC 30.5 L, RDW Std Deviation 46.6 H, RDW Coeff of Laury 13.1, Plt Count 273, MPV 9.0, Immature Gran % (Auto) 0.700, Neut % (Auto) 65.8, Lymph % (Auto) 19.3, [place] % (Auto) 9.3, Eos % (Auto) 4.0, Baso % (Auto) 0.9, Absolute Neuts (auto) 3.8, Absolute Lymphs (auto) 1.10, Nucleated RBC % 0, Sodium 142, Potassium 3.4 L, Chloride 113 H, Carbon Dioxide 24.0, Anion Gap 5, BUN 11, Creatinine 0.60, Estim Creat Clear Calc 41.93, Est GFR (MDRD) Af Amer 121, Est GFR (MDRD) Non-Af 100, BUN/Creatinine Ratio 18.3, Glucose 91, Calcium 8.3 L Physical Exam Narrative General: Alert but tired, Oriented x3, Cooperative, No apparent distress HEENT: Atraumatic, PERRLA, EOMI, Normocephalic Oral: Moist Mucosa Neck: Supple, No JVD Lungs: Clear to auscultation, Normal air movement, No rhonchi, No wheeze, No rales Cardiovascular: Regular rate, Regular Rhythm, Normal S1, Normal S2, No murmurs Abdomen: Soft, Non Tender, Non-Distended, No Hepato-splenomegaly Extremities: No edema, Capillary Refill Less than 3 Seconds Skin: No rashes, No breakdown Musculoskeletal: No Tenderness to Palpation of Joints or Extremities Neurological: Cranial nerves II-XII grossly intact, Motor Exam 5/5 strength throughout, Sensory exam intact to light touch and pain Psych/Mental Status: Normal Affect, Appropriate Assessment & Plan Assessment/Plan (1) Ruptured tympanic membrane: QUALIFIERS: Laterality: left Qualified Code(s): H72.92 - Unspecified perforation of tympanic membrane, left ear (2) Concussion: QUALIFIERS: Encounter type: initial encounter Loss of consciousness presence/duration: unknown LOC status Qualified Code(s): S06.0XAA - Concussion with loss of consciousness status unknown, initial encounter (3) History of recent fall: PLAN: Plan 1. Closed head injury after mechanical fall with continued headache and probable concussion ? Continue with monitoring and will treat headache with Tylenol ? PT/OT ? She does have a ruptured left tympanic membrane seen on admission started with Cipro drops will need outpatient follow-up 2. HTN ? Blood pressures are stable ? Can resume her home blood pressure medications ? We will monitor make adjustments as necessary 3. Hypothyroidism ? Stable ? Continue Synthroid 4. GERD ? Stable ? Continue with PPI 5. Anxiety/depression ? Stable ? Continue with her home medications DVT: Heparin Charges/Coding Visit Charges Inpatient E&M: 49592 Subs Hosp L2
[2023-09-30 09:30] VITALS: O2SAT 95
[2023-09-30 10:00] VITALS: BP 136/68; PULSE 78; RESP 16; TEMP 36.4; O2SAT 99
[2023-09-30] MEDS: Potassium Chloride Oral Tablet 20 MEQ PO (10:08)
[2023-09-30] MEDS: Ciprofloxacin 0.3% 2.5ml Bottle 2 DRP LEFT EAR ×2 (10:08→21:08)
[2023-09-30] MEDS: Fluticasone 0.05% 1 SPRAY NASAL.SRY NASAL ×2 (10:08→21:09)
[2023-09-30] MEDS: Azelastine HCl NASAL.SRY 1 SPRAY NASAL ×2 (10:08→21:09)
[2023-09-30] MEDS: Pantoprazole Sodium 40 MG Tablet PO ×2 (10:08→21:08)
[2023-09-30] MEDS: Lisinopril 20 MG Tablet PO (10:08)
[2023-09-30] MEDS: traMADol 50 MG Tablet PO ×2 (10:08→21:18)
[2023-09-30] MEDS: Menthol/Lanolin/Calamine/Znox 113 GM Tube 1 APPLIC TOPICAL ×2 (10:09→21:10)
[2023-09-30 14:23] VITALS: BP 139/73; PULSE 83; RESP 16; TEMP 36.6; O2SAT 99
[2023-09-30 20:30] VITALS: BP 148/68; PULSE 78; RESP 16; TEMP 36.6; O2SAT 96
[2023-09-30] MEDS: traZODone 50 MG Tablet PO (21:08)
[2023-09-30] MEDS: Amitriptyline 25 MG Tablet PO (21:11)
[2023-10-01 02:30] VITALS: BP 146/69; PULSE 71; RESP 16; TEMP 36.4; O2SAT 96
[2023-10-01 05:54] VITALS: BMI 31.4
[2023-10-01] MEDS: Levothyroxine 75 MCG Tablet PO (06:13)
[2023-10-01] MEDS: Gabapentin 300 MG Capsule PO ×3 (06:13→22:35)
[2023-10-01 07:10] LABS: Anion Gap 4 (5-15); BUN 11 mg/dL (7-18); BUN/Creat Ratio 17.9 RATIO (10-20); Chloride 111 mmol/L (98-107); Creatinine, Serum 0.62 mg/dL (0.55-1.02); EST Glomerular Filtration Rate 98 mL/min (>60); Est Glom Filt Rate - Afr Amer 118 mL/min (>60); Estimated Creatinine Clearance 43.35 ml/min; Glucose 83 mg/dL (74-106); Potassium 3.9 mmol/L (3.5-5.1); Sodium Level 140 mmol/L (136-145)
[2023-10-01 08:16] VITALS: BP 149/71; PULSE 70; RESP 18; TEMP 36.3; O2SAT 100
[2023-10-01] MEDS: Pantoprazole Sodium 40 MG Tablet PO ×2 (08:27→22:36)
[2023-10-01] MEDS: Acetaminophen 500 MG Tablet PO ×2 (08:27→14:20)
[2023-10-01] MEDS: Fluticasone 0.05% 1 SPRAY NASAL.SRY NASAL ×2 (08:28→22:38)
[2023-10-01] MEDS: Lisinopril 20 MG Tablet PO (08:28)
[2023-10-01] MEDS: Azelastine HCl NASAL.SRY 1 SPRAY NASAL ×2 (08:29→22:37)
[2023-10-01] MEDS: Menthol/Lanolin/Calamine/Znox 113 GM Tube 1 APPLIC TOPICAL ×2 (08:30→22:30)
[2023-10-01] MEDS: Ciprofloxacin 0.3% 2.5ml Bottle 2 DRP LEFT EAR ×2 (08:30→22:37)
[2023-10-01] MEDS: traMADol 50 MG Tablet PO ×2 (08:31→22:36)
--- NOTE | 2023-10-01 08:36 | PCM.PN.HOSP ---
Subjective Subjective Doing well, no issues overnight. Denies any significant headache at the moment but did get a little bit dizzy with sitting up which resolved fairly quickly. She states that she does routinely get dizzy with changes in position. Objective Data Objective Data Vital Signs: Vital Signs Temp Pulse Resp BP Pulse Ox O2 Del Method 97.3 F L 70 18 149/71 H 100 Room Air 10/01/23 08:16 10/01/23 08:16 10/01/23 08:16 10/01/23 08:16 10/01/23 08:16 10/01/23 08:16 Oxygen Delivery Method Room Air Weight: 149 lb 14.629 oz Body Mass Index (BMI) 31.4 Intake & Output: Intake and Output for Last 24 Hours 09/30/23 10/01/23 10/02/23 03:59 03:59 03:59 Intake Total 2072.5 / 2072.5 1255 / 1255 280 / 280 Output Total 2750 / 2750 300 / 300 Balance -677.5 / -677.5 1255 / 1255 -20 / -20 Lab / Micro Data 09/30/23 05:10 10/01/23 04:15 Labs: Laboratory Results - last 24 hr 10/01/23 04:15: Sodium 140, Potassium 3.9, Chloride 111 H, Carbon Dioxide 25.0, Anion Gap 4 L, BUN 11, Creatinine 0.62, Estim Creat Clear Calc 43.35, Est GFR (MDRD) Af Amer 118, Est GFR (MDRD) Non-Af 98, BUN/Creatinine Ratio 17.9, Glucose 83, Calcium 9.0 Physical Exam Narrative General: Alert, Oriented x3, Cooperative, No apparent distress HEENT: Atraumatic, PERRLA, EOMI, Normocephalic Oral: Moist Mucosa Neck: Supple, No JVD Lungs: Clear to auscultation, Normal air movement, No rhonchi, No wheeze, No rales Cardiovascular: Regular rate, Regular Rhythm, Normal S1, Normal S2, No murmurs Abdomen: Soft, Non Tender, Non-Distended, No Hepato-splenomegaly Extremities: No edema, Capillary Refill Less than 3 Seconds Skin: No rashes, No breakdown Musculoskeletal: No Tenderness to Palpation of Joints or Extremities Neurological: Cranial nerves II-XII grossly intact, Motor Exam 5/5 strength throughout, Sensory exam intact to light touch and pain Psych/Mental Status: Normal Affect, Appropriate Assessment & Plan Assessment/Plan (1) Ruptured tympanic membrane: QUALIFIERS: Laterality: left Qualified Code(s): H72.92 - Unspecified perforation of tympanic membrane, left ear (2) Concussion: QUALIFIERS: Encounter type: initial encounter Loss of consciousness presence/duration: unknown LOC status Qualified Code(s): S06.0XAA - Concussion with loss of consciousness status unknown, initial encounter (3) History of recent fall: PLAN: Plan 1. Closed head injury after mechanical fall with continued headache and probable concussion ? Continue with monitoring and will treat headache with Tylenol ? PT/OT ? She does have a ruptured left tympanic membrane seen on admission started with Cipro drops will need outpatient follow-up 2. HTN ? Blood pressures are stable ? Can resume her home blood pressure medications ? We will monitor make adjustments as necessary 3. Hypothyroidism ? Stable ? Continue Synthroid 4. GERD ? Stable ? Continue with PPI 5. Anxiety/depression ? Stable ? Continue with her home medications DVT: Heparin Charges/Coding Visit Charges Inpatient E&M: 39800 Subs Hosp L2
[2023-10-01] MEDS: Arthritis Pain Compound 60 CLICK TUBE TOPICAL ×2 (10:14→22:30)
[2023-10-01] MEDS: Cefdinir 300 MG Capsule PO ×2 (10:15→22:36)
[2023-10-01 14:16] VITALS: BP 135/72; PULSE 82; RESP 18; TEMP 36.7; O2SAT 96
--- NOTE | 2023-10-01 18:00 | NURSING ---
male at bedside, identifies himself as pt son Joni. Joni states i would like to give you several numbers to be placed on the chart so the staff can call and update everyone. informed Joni that there is limited spots on pt demographics for contact information and that it is preferred to have one person as the spokesperson/contact to then relay information to other family members as needed. Joni voices understanding. Pt in agreeance.
[2023-10-01 20:20] VITALS: BP 135/77; PULSE 82; RESP 16; TEMP 36.8; O2SAT 100
[2023-10-01 20:23] VITALS: PULSE 80
[2023-10-01] MEDS: Amitriptyline 25 MG Tablet PO (22:38)
[2023-10-01] MEDS: traZODone 50 MG Tablet PO (22:38)
[2023-10-02 02:30] VITALS: BP 133/84; PULSE 86; RESP 17; TEMP 36.6; O2SAT 98
[2023-10-02] MEDS: Gabapentin 300 MG Capsule PO ×3 (05:09→21:43)
[2023-10-02] MEDS: Levothyroxine 75 MCG Tablet PO (05:09)
[2023-10-02 06:00] VITALS: BMI 31.1
--- NOTE | 2023-10-02 08:41 | CASEMGMT ---
Social Work SW spoke w/Tianna in TCU, she will let SW know if they can take pt and if so will start precert. RADHIKA Villalobos
--- NOTE | 2023-10-02 09:24 | PN.HOSP_ITS ---
Subjective Subjective Doing well, no issues overnight Objective Data Objective Data Vital Signs: Vital Signs Temp Pulse Resp BP Pulse Ox O2 Del Method 97.8 F 86 17 133/84 H 98 Room Air 10/02/23 02:30 10/02/23 02:30 10/02/23 02:30 10/02/23 02:30 10/02/23 02:30 10/02/23 02:30 Oxygen Delivery Method Room Air Weight: 148 lb 2.41 oz Body Mass Index (BMI) 31.1 Intake & Output: Intake and Output for Last 24 Hours 10/01/23 10/02/23 10/03/23 03:59 03:59 03:59 Intake Total 1255 / 1255 280 / 280 120 / 120 Output Total 300 / 300 Balance 1255 / 1255 -20 / -20 120 / 120 Lab / Micro Data 09/30/23 05:10 10/01/23 04:15 Physical Exam Narrative General: Alert, Oriented x3, Cooperative, No apparent distress HEENT: Atraumatic, PERRLA, EOMI, Normocephalic Oral: Moist Mucosa Neck: Supple, No JVD Lungs: Clear to auscultation, Normal air movement, No rhonchi, No wheeze, No ra les Cardiovascular: Regular rate, Regular Rhythm, Normal S1, Normal S2, No murmurs Abdomen: Soft, Non Tender, Non-Distended, No Hepato-splenomegaly Extremities: No edema, Capillary Refill Less than 3 Seconds Skin: No rashes, No breakdown Musculoskeletal: No Tenderness to Palpation of Joints or Extremities Neurological: Cranial nerves II-XII grossly intact, Motor Exam 5/5 strength throughout, Sensory exam intact to light touch and pain Psych/Mental Status: Normal Affect, Appropriate Assessment & Plan Assessment/Plan (1) Ruptured tympanic membrane: QUALIFIERS: Laterality: left Qualified Code(s): H72.92 - Unspecified perforation of tympanic membrane, left ear (2) Concussion: QUALIFIERS: Encounter type: initial encounter Loss of consciousness presence/duration: unknown LOC status Qualified Code(s): S06.0XAA - Concussion with loss of consciousness status unknown, initial encounter (3) History of recent fall: PLAN: Plan 1. Closed head injury after mechanical fall with continued headache and probable concussion ? Continue with monitoring and will treat headache with Tylenol ? PT/OT, likely need SNF on discharge ? She does have a ruptured left tympanic membrane seen on admission started with Cipro drops will need outpatient follow-up 2. UTI from E. coli ? Continue with p.o. cefdinir for 3 to 5 days 3. HTN ? Blood pressures are stable ? Can resume her home blood pressure medications ? We will monitor make adjustments as necessary 4. Hypothyroidism ? Stable ? Continue Synthroid 5. GERD ? Stable ? Continue with PPI 6. Anxiety/depression ? Stable ? Continue with her home medications DVT: Heparin Charges/Coding Visit Charges Inpatient E&M: 41454 Subs Hosp L2
[2023-10-02] MEDS: Arthritis Pain Compound 60 CLICK TUBE TOPICAL ×2 (09:52→21:43)
[2023-10-02] MEDS: Menthol/Lanolin/Calamine/Znox 113 GM Tube 1 APPLIC TOPICAL ×2 (09:52→21:44)
[2023-10-02] MEDS: Fluticasone 0.05% 1 SPRAY NASAL.SRY NASAL ×2 (09:52→21:45)
[2023-10-02] MEDS: Cefdinir 300 MG Capsule PO ×2 (09:53→21:45)
[2023-10-02] MEDS: Pantoprazole Sodium 40 MG Tablet PO ×2 (09:53→21:45)
[2023-10-02] MEDS: Ciprofloxacin 0.3% 2.5ml Bottle 2 DRP LEFT EAR ×2 (09:54→21:44)
[2023-10-02] MEDS: Azelastine HCl NASAL.SRY 1 SPRAY NASAL ×2 (09:54→21:43)
[2023-10-02] MEDS: Lisinopril 20 MG Tablet PO (09:54)
[2023-10-02] MEDS: traMADol 50 MG Tablet PO ×2 (10:00→21:43)
[2023-10-02 10:04] VITALS: BP 127/69; PULSE 88; RESP 18; TEMP 36.5; O2SAT 99
--- NOTE | 2023-10-02 10:19 | CASEMGMT ---
Social Work SW spoke w/son in [facility] in regard to discharge plan. SW explained we have not yet heard back from TCU if they can take pt. Pt is participating in therapy at present however, and appears to be moving well. SW explained to son that pt may not be approved by insurance for TCU. SW explained that if pt is denied TCU, would be denied any SNF. He states they have been looking into AL as well for both pt and pt's , and as per son has been looking into assisted living for three years. They are aware it is private pay. SW explained we will try for TCU first. If TCU does not have a bed they will need to pick different facilities off the SNF list(provided by SW on the weekend, SW provided a second list per son's request). SW then spoke w/pt and son, explained that insurance may not approve SNF at all. Pt states if insurance does not approve, maybe she can go straight to [facility]. Son is to go check out [facility] today. SW explained will also call [facility], pt states that may be helpful. SW called [facility], spoke w/Jess. She states she spoke w/pt already this morning and that family is supposed to stop in some time today. She states they have a one bedroom and a studio available. SW let pt and son know. SW will continue to follow, at present awaiting to hear if TCU can take pt. RADHIKA Villalobos
[2023-10-02] MEDS: Acetaminophen 500 MG Tablet PO (11:54)
--- NOTE | 2023-10-02 12:09 | CASEMGMT ---
Social Work SW spoke w/pt's daughter in law Jess at length. She was explaining to SW that pt and have been talking about going to assisted living for 3 years. She explained further to SW the extent of pt's 's memory issues. She states pt's oscillates between being agreeable to going to [email or web address] and not wanting to go. She states they are going to go look at it today and is hopeful pt's will be agreeable. She states she and her (one of pt's sons) is here from [place]. Pt has 3 sons altogether. Jess also spoke about a difficult loss the family experienced, SW offered support. SW still waiting to see if TCU will take pt, will let pt and family know as soon as this SW knows. RADHIKA Villalobos
[2023-10-02 14:15] VITALS: BP 164/73; PULSE 70; RESP 18; TEMP 36.6; O2SAT 100
--- NOTE | 2023-10-02 16:15 | CASEMGMT ---
Social Work Referral still pending w/TCU. SW called son Go to let him know. SW asked him again to review the SNF list and come up w/additional choices if TCU cannot take pt. SW also explained that there is a chance that insurance will deny SNF altogether. If this happens, then they will want pt to go directly to [facility] from here, pt's did agree to go there as well and they will be working on moving him. SW will continue to follow. Plan: SNF, referral to TCU still pending. RADHIKA Villalobos
[2023-10-02 20:15] VITALS: BP 132/72; PULSE 86; RESP 16; TEMP 36.6; O2SAT 96
[2023-10-02] MEDS: traZODone 50 MG Tablet PO (21:44)
[2023-10-02] MEDS: Amitriptyline 25 MG Tablet PO (21:45)
[2023-10-03] MEDS: Gabapentin 300 MG Capsule PO ×3 (05:59→21:32)
[2023-10-03] MEDS: Levothyroxine 75 MCG Tablet PO (05:59)
[2023-10-03 09:00] VITALS: BP 123/63; PULSE 95; RESP 17; TEMP 36.8; O2SAT 98
[2023-10-03] MEDS: Arthritis Pain Compound 60 CLICK TUBE TOPICAL ×2 (09:02→21:23)
[2023-10-03] MEDS: Azelastine HCl NASAL.SRY 1 SPRAY NASAL ×2 (09:02→21:24)
[2023-10-03] MEDS: Ciprofloxacin 0.3% 2.5ml Bottle 2 DRP LEFT EAR ×2 (09:03→21:26)
[2023-10-03] MEDS: Fluticasone 0.05% 1 SPRAY NASAL.SRY NASAL ×2 (09:03→21:26)
[2023-10-03] MEDS: Cefdinir 300 MG Capsule PO ×2 (09:04→21:25)
[2023-10-03] MEDS: Pantoprazole Sodium 40 MG Tablet PO ×2 (09:04→21:25)
[2023-10-03] MEDS: Lisinopril 20 MG Tablet PO (09:07)
[2023-10-03] MEDS: Menthol/Lanolin/Calamine/Znox 113 GM Tube 1 APPLIC TOPICAL ×2 (09:08→21:24)
[2023-10-03] MEDS: amLODIPine 5 MG Tablet PO (09:09)
--- NOTE | 2023-10-03 09:11 | PCM.PN.HOSP ---
Subjective Subjective Doing well, no issues overnight Objective Data Objective Data Vital Signs: Vital Signs Temp Pulse Resp BP Pulse Ox O2 Del Method 98.2 F 95 17 123/63 H 98 Room Air 10/03/23 09:00 10/03/23 09:00 10/03/23 09:00 10/03/23 09:00 10/03/23 09:00 10/03/23 09:00 Oxygen Delivery Method Room Air Weight: 148 lb 2.41 oz Body Mass Index (BMI) 31.1 Intake & Output: Intake and Output for Last 24 Hours 10/02/23 10/03/23 10/04/23 03:59 03:59 03:59 Intake Total 280 / 280 620 / 620 Output Total 300 / 300 Balance -20 / -20 620 / 620 Lab / Micro Data 09/30/23 05:10 10/01/23 04:15 Physical Exam Narrative General: Alert, Oriented x3, Cooperative, No apparent distress HEENT: Atraumatic, PERRLA, EOMI, Normocephalic Oral: Moist Mucosa Neck: Supple, No JVD Lungs: Clear to auscultation, Normal air movement, No rhonchi, No wheeze, No rales Cardiovascular: Regular rate, Regular Rhythm, Normal S1, Normal S2, No murmurs Abdomen: Soft, Non Tender, Non-Distended, No Hepato-splenomegaly Extremities: No edema, Capillary Refill Less than 3 Seconds Skin: No rashes, No breakdown Musculoskeletal: No Tenderness to Palpation of Joints or Extremities Neurological: Cranial nerves II-XII grossly intact, Motor Exam 5/5 strength throughout, Sensory exam intact to light touch and pain Psych/Mental Status: Normal Affect, Appropriate Assessment & Plan Assessment/Plan (1) Ruptured tympanic membrane: QUALIFIERS: Laterality: left Qualified Code(s): H72.92 - Unspecified perforation of tympanic membrane, left ear (2) Concussion: QUALIFIERS: Encounter type: initial encounter Loss of consciousness presence/duration: unknown LOC status Qualified Code(s): S06.0XAA - Concussion with loss of consciousness status unknown, initial encounter (3) History of recent fall: PLAN: Plan 1. Closed head injury after mechanical fall with continued headache and probable concussion ? Continue with monitoring and will treat headache with Tylenol ? PT/OT, likely need SNF on discharge ? She does have a ruptured left tympanic membrane seen on admission started with Cipro drops will need outpatient follow-up ? Awaiting pre-CERT 2. UTI from E. coli ? Continue with p.o. cefdinir for 3 to 5 days 3. HTN ? Blood pressures are stable ? Can resume her home blood pressure medications ? We will monitor make adjustments as necessary 4. Hypothyroidism ? Stable ? Continue Synthroid 5. GERD ? Stable ? Continue with PPI 6. Anxiety/depression ? Stable ? Continue with her home medications DVT: Heparin Charges/Coding Visit Charges Inpatient E&M: 21379 Subs Hosp L2
[2023-10-03] MEDS: traMADol 50 MG Tablet PO ×2 (09:16→21:32)
--- NOTE | 2023-10-03 10:30 | CASEMGMT ---
Social Work SW recieved call from [facility] in TCU and TCU is able to accept pt and precert will be started at this time. Phone call to pt's son Go and notified that TCU has accepted but insurance will have to approve and this is not guaranteed. Go understanding and states if denied by insurance, plan will be for pt to go to [facility]. Plan: TCU, pending precert ELIZABETH Montoya
[2023-10-03] MEDS: Acetaminophen 500 MG Tablet PO ×2 (14:29→19:52)
[2023-10-03 14:50] VITALS: BP 128/72; PULSE 94; RESP 18; TEMP 37.1; O2SAT 96
--- NOTE | 2023-10-03 16:16 | CHAPLAIN ---
Type of Pastoral Visit _x__ Initial Visit ___ Follow-up Visit ___ On-call Visit ___ General Patient Visit ___ Spiritual Assessment ___ Family Conference ___ Bereavement ___ Rapid Response ___ Code Blue ___ Other (describe below) Pastoral Care Referral From _x__ Patient ___ Family ___ Nurse ___ Physician ___ Sash Maker ___ Bagger And Stock Handler Helper ___ Other (describe below) Sacrament/Intervention _x__ Active listening ___ Anointing ___ Worship ___ Bereavement ___ Communion _x__ Zehra exploration ___ _x__ Life review _x__ Prayer ___ Reconciliation ___ Sacrament of Sick ___ Supportive presence ___ Wedding ___ Other (describe below) Pastoral Comments patient explains her health situation and that she and her are moving to [place] even today as family members are doing the work; pt states she is okay with this because her has decided he is okay with it; pt gives much by life review and family talk, 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
[2023-10-03 21:07] VITALS: BP 133/63; PULSE 76; RESP 16; TEMP 36.9; O2SAT 96
[2023-10-03] MEDS: Amitriptyline 25 MG Tablet PO (21:25)
[2023-10-03] MEDS: traZODone 50 MG Tablet PO (21:26)
[2023-10-04 03:26] VITALS: BP 119/63; PULSE 71; RESP 16; TEMP 36.8; O2SAT 95
[2023-10-04] MEDS: Gabapentin 300 MG Capsule PO ×2 (05:35→14:25)
[2023-10-04] MEDS: Levothyroxine 75 MCG Tablet PO (05:35)
[2023-10-04] MEDS: Acetaminophen 500 MG Tablet PO (05:48)
[2023-10-04 06:00] VITALS: BMI 31.0
[2023-10-04 06:09] LABS: Absolute Lymphocyte Count 1.31 X10^3/uL (0.83-4.51); Absolute Neutrophil Count 2.9 X10^3/uL (2.0-7.7); Basophil# 0.05 X10^3/uL; Eosinophils% 4.1 % (0-5); Hemoglobin 12.2 g/dL (12.0-15.0); Lymphocyte # 1.31 X10^3/ul (0.83-4.51); Lymphocyte % 26.8 % (19-41); Mean Corp Hgb Conc 30.5 g/dL (32-36); Mean Corpuscular Volume 101.8 fL (81-99); Mean Platelet Vol. 8.9 fl (6.2-12.0); Monocyte% 8.2 % (0-10); NRBC Flagged by Analyzer 0 % (0-5); Neutrophil % 59.5 % (47-70); Platelet Count 287 K/mm3 (150-450); RBC Distribution Width CV 12.9 % (11.6-14.6); RBC Distribution Width SD 48.3 fl (35.1-43.9); Red Blood Count 3.93 M/mm3 (4.2-5.4); White Blood Count 4.9 K/mm3 (4.4-11.0)
[2023-10-04 06:53] LABS: Anion Gap 2 (5-15); BUN 17 mg/dL (7-18); BUN/Creat Ratio 23.3 RATIO (10-20); Calcium,Total 9.4 mg/dL (8.5-10.1); Chloride 107 mmol/L (98-107); Creatinine, Serum 0.73 mg/dL (0.55-1.02); EST Glomerular Filtration Rate 80 mL/min (>60); Est Glom Filt Rate - Afr Amer 97 mL/min (>60); Estimated Creatinine Clearance 42.78 ml/min; Glucose 82 mg/dL (74-106); Potassium 3.8 mmol/L (3.5-5.1); Sodium Level 138 mmol/L (136-145)
[2023-10-04 09:50] VITALS: BP 128/73; PULSE 81; RESP 16; TEMP 36.4; O2SAT 99
[2023-10-04] MEDS: Pantoprazole Sodium 40 MG Tablet PO (09:53)
[2023-10-04] MEDS: Cefdinir 300 MG Capsule PO (09:53)
[2023-10-04] MEDS: amLODIPine 5 MG Tablet PO (09:53)
[2023-10-04] MEDS: Lisinopril 20 MG Tablet PO (09:53)
[2023-10-04] MEDS: traMADol 50 MG Tablet PO (09:53)
[2023-10-04] MEDS: Ciprofloxacin 0.3% 2.5ml Bottle 2 DRP LEFT EAR (09:54)
[2023-10-04] MEDS: Arthritis Pain Compound 60 CLICK TUBE TOPICAL (09:54)
[2023-10-04] MEDS: Azelastine HCl NASAL.SRY 1 SPRAY NASAL (09:54)
[2023-10-04] MEDS: Fluticasone 0.05% 1 SPRAY NASAL.SRY NASAL (09:54)
[2023-10-04] MEDS: Menthol/Lanolin/Calamine/Znox 113 GM Tube 1 APPLIC TOPICAL (09:55)
--- NOTE | 2023-10-04 11:24 | PCM.TXEXTCAR ---
Diet Diet Order/Speech Therapy: 09/29/23 00:49 Diet: Cardiac - Heart Healthy Food consistency:: Regular Liquid Consistency:: Regular/Thin Is pt able to select menu?: Yes Routine Orders/Code Status Suppository Type: Dulcolax 10mg Suppository Frequency: Daily PRN Therapies Weight Bearing: Weight bearing as tolerated Extremity Affected:: Bilateral Lower Physical Therapy: Eval and Treat Occupational Therapy: Eval and Treat Speech Therapy: Eval and Treat Problem/Diagnosis (1) Ruptured tympanic membrane: Status: Acute Code(s): H72.90 - Unspecified perforation of tympanic membrane, unspecified ear (2) Concussion: Status: Acute Code(s): S06.0XAA - Concussion with loss of consciousness status unknown, initial encounter (3) History of recent fall: Status: Acute Code(s): Z91.81 - History of falling Allergies/Procedures Done in Hospital Allergies gluten Allergy (Verified 01/18/23 20:27) Food Allergy grass pollen-perennial rye, standar [grass poll-perennial rye,std] Allergy (Verified 01/18/23 20:27) sinus pressure house dust Adverse Reaction (Verified 01/18/23 20:27) Other SINUS PRESSURE lactose Adverse Reaction (Verified 01/18/23 20:27) Food Allergy mold Adverse Reaction (Verified 01/18/23 20:27) Other SINUS PRESSURE Type of Care/Length of Stay Estimated LOS: Convalescent Care Less Than 30 days Type of Care Needed: Skilled Rehab Potential: Good Prognosis: Good Additional Orders/Day of Discharge Day of Discharge: 10/04/23 Discharge Plan Admission Admit Date/Time: 09/28/23 23:40 Attending Provider: Wai Neal Primary Care Provider: Roma Grajeda Consulting Providers: Joni Torres; Patricio Franz Instructions Patient Instructions: ED Head Injury (Adult), ED Ruptured Eardrum, Traumatic Discharge Orders/Prescriptions Prescriptions: New ciprofloxacin HCl 0.3 % Drops 2 drp LEFT EAR BID 7 Days Qty: 0 0RF Rx Instructions: Continue for 7 days. cefdinir 300 mg Capsule 300 mg PO Q12 5 Days Qty: 0 0RF Continued trazodone 50 MG tablet 50 mg PO QHS amlodipine 5 MG tablet 5 mg PO DAILY amitriptyline 25 MG tablet 25 mg PO QHS Hold Instructions: Resume on 01/03/23. Hold until discussing with your primary care physician gabapentin 300 MG capsule 300 mg PO TID Hold Instructions: Resume on 12/27/22. Would recommend discussing this medication with your prescribing physician prior to resuming due to the increased risk of confusion and falls azelastine 1 SPRAY aerosol,spray 1 spray NASAL BID fluticasone propionate 1 SPRAY spray,suspension 1 spray NASAL BID tramadol 50 MG tablet 50 mg PO Q8H Hold Instructions: Resume on 12/27/22. Would recommend discussing this medication with your prescribing physician prior to resuming due to the increased risk of confusion and falls acetaminophen 500 MG tablet 500 mg PO Q6H PRN PRN (Reason: Pain 1-10 Or Fever) pantoprazole 40 MG tablet 40 mg PO BID levothyroxine 75 MCG tablet 75 mcg PO DAILY@0600 Qty: 30 0RF lisinopril 20 MG tablet 20 mg PO DAILY Referrals / Follow Up: Roma Grajeda DO [Primary Care Provider] - Within 2 Weeks Deangelo Scott MD [Med Staff - Active Staff] - Within 2 Weeks (Left ear TM perforation after fall.) Disposition Disposition (needs filled in before D/C Order can be placed): Home, Self Care (1) Ruptured tympanic membrane Qualifiers: Laterality: left Qualified Code(s): H72.92 - Unspecified perforation of tympanic membrane, left ear (2) Concussion Qualifiers: Encounter type: initial encounter Loss of consciousness presence/duration: unknown LOC status Qualified Code(s): S06.0XAA - Concussion with loss of consciousness status unknown, initial encounter
--- NOTE | 2023-10-04 13:25 | DS.PCM_ITS ---
Providers Date of Admission: 09/28/23 Date of Discharge: 10/04/23 Primary Care Physician: Dr. Roma Grajeda, DO Reason For Visit: CLOSED HEAD INJURY AFTER FALL W/PERSISTENT Diagnosis Discharge Diagnosis (1) Ruptured tympanic membrane: Status: Acute Code(s): H72.90 - Unspecified perforation of tympanic membrane, unspecified ear Qualifiers: Laterality: left Qualified Code(s): H72.92 - Unspecified perforation of tympanic membrane, left ear (2) Concussion: Status: Acute Code(s): S06.0XAA - Concussion with loss of consciousness status unknown, initial encounter Qualifiers: Encounter type: initial encounter Loss of consciousness presence/durat ion: unknown LOC status Qualified Code(s): S06.0XAA - Concussion with loss of consciousness status unknown, initial encounter (3) History of recent fall: Status: Acute Code(s): Z91.81 - History of falling Plan 37-year-old female was admitted through ER for headache and confusion after a fall. Patient has chronic neck pain from arthritis but the pain got worse after fall, cervical spondylitis. She complained that her neck pain starts from's C4-5 area and then it spreads to the occipital and vertex of head and shoulders. 1. Closed head injury after mechanical fall with continued headache and probable concussion with history of chronic cervical spine arthritis/spondylitis ? Continue with monitoring and will treat headache with Tylenol ? Was evaluated PT and OT and patient is going to SNF. ? She does have a ruptured left tympanic membrane seen on admission started with Cipro drops and continue for 1 more week. Follow-up with the ENT clinic within 2 weeks 2. UTI from E. coli ? Continue with p.o. cefdinir for total of 7 days. 3. HTN ? Blood pressures are stable ? Can resume her home blood pressure medications ? Blood pressure normal 4. Hypothyroidism ? Stable ? Continue Synthroid 5. GERD ? Stable ? Continue with PPI 6. Anxiety/depression ? Stable ? Continue with her home medications DVT: Heparin Discharge medication reconciliation done. Discharge follow-up instructions completed. Discharge process discussed with the patient and all questions were answered to patient's satisfaction. Follow with PCP in 1 to 2 weeks Total time spent, exact 35 minutes on discharge meds reconciliation, examination, coordination of care with nurses and ancillary staff, review of imaging and blood test and discussion with the patient on follow-up instructions. 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 Patient is states her neck pain and headache is better. Starts from the neck and spreads proximally to occipital region and parietal region and bilateral scapular regions and rhomboids. Physical exam General: Alert, Oriented x3, Cooperative HEENT: Atraumatic, PERRLA, EOMI, Normocephalic. Oral: No Gingival or Mucosal Lesions/ Ulcerations Neck: Supple, No JVD, Negative Carotid Bruits Lungs: Air entry diminished in bilateral lung bases. No crepitation/rhonchi Cardiovascular: Regular rate, Regular Rhythm, Normal S1, Normal S2, systolic murmur Abdomen: Bowel Sounds Present, Soft, Non Tender, Non-Distended : No renal angle tenderness. No suprapubic tenderness. Extremities: No edema, Capillary Refill Less than 3 Seconds Skin: No rashes, No breakdown Musculoskeletal: No Tenderness to Palpation of Joints or Extremities Spine: Mild tenderness present over C-spine. Mild paraspinal muscle tenderness around cervical spine Neurological: Cranial nerves II-XII grossly intact, DTR 2+/4. No acute focal neurological deficit. Psych/Mental Status: Flat affect Weight / BMI Weight Weight: 147 lb 14.883 oz Body Mass Index (BMI) 31.0 ABG / Lab / Microbiology Data 10/04/23 05:40 10/04/23 05:40 Laboratory: Laboratory Results - last 24 hr 10/04/23 05:40: WBC 4.9, RBC 3.93 L, Hgb 12.2, Hct 40.0, MCV 101.8 H, MCH 31.0, MCHC 30.5 L, RDW Std Deviation 48.3 H, RDW Coeff of Laury 12.9, Plt Count 287, MPV 8.9, Immature Gran % (Auto) 0.400, Neut % (Auto) 59.5, Lymph % (Auto) 26.8, [place]ble % (Auto) 8.2, Eos % (Auto) 4.1, Baso % (Auto) 1.0, Absolute Neuts (auto) 2.9, Absolute Lymphs (auto) 1.31, Nucleated RBC % 0, Sodium 138, Potassium 3.8, Ch loride 107, Carbon Dioxide 29.0, Anion Gap 2 L, BUN 17, Creatinine 0.73, Estim Creat Clear Calc 42.78, Est GFR (MDRD) Af Amer 97, Est GFR (MDRD) Non-Af 80, BUN/Creatinine Ratio 23.3 H, Glucose 82, Calcium 9.4 Meaningful Use Info Meaningful Use Diagnoses (Choose all that apply): None applicable Discharge Plan Admission Admit Date/Time: 09/28/23 23:40 Attending Provider: Wai Neal Primary Care Provider: Roma Grajeda Consulting Providers: Joni Torres; Patricio Franz Instructions Patient Instructions: ED Head Injury (Adult), ED Ruptured Eardrum, Traumatic Discharge Orders/Prescriptions Prescriptions: New ciprofloxacin HCl 0.3 % Drops 2 drp LEFT EAR BID 7 Days Qty: 0 0RF Rx Instructions: Continue for 7 days. cefdinir 300 mg Capsule 300 mg PO Q12 5 Days Qty: 0 0RF Continued trazodone 50 MG tablet 50 mg PO QHS amlodipine 5 MG tablet 5 mg PO DAILY amitriptyline 25 MG tablet 25 mg PO QHS Hold Instructions: Resume on 01/03/23. Hold until discussing with your primary care physician gabapentin 300 MG capsule 300 mg PO TID Hold Instructions: Resume on 12/27/22. Would recommend discussing this medication with your prescribing physician prior to resuming due to the increased risk of confusion and falls azelastine 1 SPRAY aerosol,spray 1 spray NASAL BID fluticasone propionate 1 SPRAY spray,suspension 1 spray NASAL BID tramadol 50 MG tablet 50 mg PO Q8H Hold Instructions: Resume on 12/27/22. Would recommend discussing this medication with your prescribing physician prior to resuming due to the increased risk of confusion and falls acetaminophen 500 MG tablet 500 mg PO Q6H PRN PRN (Reason: Pain 1-10 Or Fever) pantoprazole 40 MG tablet 40 mg PO BID levothyroxine 75 MCG tablet 75 mcg PO DAILY@0600 Qty: 30 0RF lisinopril 20 MG tablet 20 mg PO DAILY Referrals / Follow Up: Deangelo Scott MD [Med Staff - Active Staff] - Within 2 Weeks (Left ear TM perforation after fall.) Roma Grajeda DO [Primary Care Provider] - Within 2 Weeks Disposition Disposition (needs filled in before D/C Order can be placed): Home, Self Care Charges/Coding Visit Charges Inpatient E&M: 40212 Disch Hosp >30min
--- NOTE | 2023-10-04 13:47 | PHA.DC.MR.R ---
Pharmacy [facility] Reconciliation Pharmacy Service has performed discharge medication reconciliation for this patient. The patient's discharge medication list was reviewed for discrepancies and discrepancies were resolved. 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
[2023-10-04 14:31] VITALS: BP 132/66; PULSE 81; RESP 18; TEMP 36.3; O2SAT 96
--- NOTE | 2023-10-04 15:10 | CASEMGMT ---
Social Work Precert has been obtained for pt to go to TCU. Physician updated and pt is ready for dc today. ALLI met with pt's 2 sons and daughter in laws and updated that TCU can accept and explained insurance coverage and length of stay. Family states that pt's spouse will be moving into [facility] today or tomorrow and pt will join him once she completes her stay in TCU. ALLI met with pt and her spouse and explained discharge plan and pt is agreeable to this. Discharge orders faxed to TCU. Nursing updated that pt can discharge at this time. Handoff reported to TCU Assistant Professor Of Physics. Disposition: TCU, skilled level of care. ELIZABETH Montoya
== END 2023-10-04 15:12 | disposition home or self-care (01) ==
LOC: ED 22:57 → MS3 09-29 00:34
PROVIDERS: Family Medicine; Admitting Provider Internal Medicine; Emergency Provider Student in an Organized Health Care Education/Training Program; PCP Family Medicine; Visit Provider Internal Medicine
DX: S06.0XAA Concussion with loss of consciousness status unknown, initial encounter (principal); I10 Essential (primary) hypertension; W19.XXXA Unspecified fall, initial encounter; H72.92 Unspecified perforation of tympanic membrane, left ear; Z91.81 History of falling; R26.81 Unsteadiness on feet; G44.209 Tension-type headache, unspecified, not intractable; K21.9 Gastro-esophageal reflux disease without esophagitis; E03.9 Hypothyroidism, unspecified; N39.0 Urinary tract infection, site not specified; B96.20 Unspecified Escherichia coli [E. coli] as the cause of diseases classified elsewhere; F32.A Depression, unspecified; F41.9 Anxiety disorder, unspecified; Z79.899 Other long term (current) drug therapy; Z79.890 Hormone replacement therapy; Y92.000 Kitchen of unspecified non-institutional (private) residence as the place of occurrence of the external cause; E66.9 Obesity, unspecified; Z68.30 Body mass index [BMI] 30.0-30.9, adult; N32.81 Overactive bladder
CPT/HCPCS: 36415; 70450; 71045; 72125; 80048; 80053; 81001; 83735; 84100; 84443; 84484; 85025; 93005; 94668; 96361; 96372; 96374; 96375; 97116; 97162; 97166; 97530; 97535; 99221; 99252; 99285; J7030; A4216; G0378; G0463

== ENCOUNTER 2023-10-04 15:19 | Inpatient (IN) | payer MEDICARE, SELFPAY ==
--- OUTSIDE RECORDS SUMMARY | 2023-10-04 15:40 | XMS RPT_ITS | CCD ---
Author Name Unknown Address [address] [place] [address] Organization [facility] Care Team Providers Care Recycling Technician Name Role Phone Rupinder Zhu LPN Unavailab le Allergies Allergy Classification Reported Allergen(s) Allergy Type Date of Onset Reaction(s) Facility (1 source) Allergic rhinitis due to pollen; Translations: [HAY FEVER] allergy to substance [facility] Work Phone: (1 source) Dust; Translations: [DUST] allergy to substance 05-04-2014 [facility] Work Phone: (1 source) Mold Extract; Translations: [MOLD] Drug Allergy [facility] Work Phone: Medications Completed/Discontinued Medications Medication Drug Class(es) Dates Sig (Normalized) Sig (Original) acetaminophen 33.3 mg/ml oral solution (1 source) Start: 05-04-2014 TYLENOL 500 MG/15ML LIQD every 8 hrs as needed ACETAMINOPHEN [id number] Roma Grajeda DO ALUM & MAG HYDROXIDE-SIMETH SUSP (2 sources) Start: 05-04-2014 End: 12-14-2015 MYLANTA SUSP two tsp as needed ALUM & MAG HYDROXIDE-SIMETH SUSP [id number] Roma Grajeda DO Problems Active Problems Problem [...] Mass Index) 29.28 kg/m2 Rupinder Zhu LPN [facility] Work Phone: 07-11-2017 15:20-0400 Body Temperature 99.2 [degF] Rupinder Zhu LPN [facility] Work Phone: 07-11-2017 15:20-0400 BP Diastolic 72 mm[Hg] Rupinder Zhu LPN [facility] Work Phone: 07-11-2017 15:20-0400 BP Systolic 128 mm[Hg] Rupinder Zhu LPN [facility] Work Phone: 07-11-2017 15:20-0400 Height 149.86 cm Rupinder Zhu LPN [facility] Work Phone: 07-11-2017 15:20-0400 Pulse (Heart Rate) 93 /min Rupinder Zhu LPN [facility] Work Phone: 07-11-2017 15:20-0400 Respiratory Rate 16 /min Rupinder Zhu LPN [facility] Work Phone: 07-11-2017 15:20-0400 Weight 65.77 kg Rupinder Zhu LPN [facility] Work Phone: 04-24-2016 12:15-0400 BSA (Body Surface Area) 1.58 m2 Rupinder Zhu LPN [facility] Work Phone: 04-12-2016 06:15-0400 Body surface area Derived from formula 45.73 mL/min Rupinder Zhu OBED [facility] Work Phone: Procedures Date Procedure [...] Author Start: 07-11-2017 End: 07-11-2017 Appointment Appointment [facility] Work Phone: Start: 12-14-2015 End: 12-14-2015 *CBC with Differential *CBC with Differential [facility] Work Phone: Start: 10-15-2015 End: 10-15-2015 *CBC with Differential *CBC with Differential [facility] Work Phone: Start: 10-15-2015 End: 10-15-2015 *CMP Complete Metabolic Panel *CMP Complete Metabolic Panel [facility] Work Phone: Start: 04-12-2015 End: 04-12-2015 *CBC with Differential *CBC with Differential [facility] Work Phone: Start: 04-12-2015 End: 04-13-2015 *CMP Complete Metabolic Panel *CMP Complete Metabolic Panel [facility] Work Phone: Start: 04-12-2015 End: 04-12-2015 25-Hydroxyvitamin D2+25-Hydroxyvitamin D3 mass conc *Vitamin D (Calciferol) [facility] Work Phone: Start: 04-12-2015 End: 04-13-2015 Iron mass conc *Iron [facility] Work Phone: Start: 04-12-2015 End: 04-13-2015 Thyrotropin Qn *TSH [facility] Work Phone: Start: 03-10-2015 End: 03-10-2015 Bacteria identified Cx Nom (U) *CUUR - Culture, Urine (High View Count) [facility] Work Phone: Start: 03-10-2015 End: 03-29-2015 Urology Referral [facility] Work Phone: Start: 02-03-2015 End: 02-03-2015 Mammogram, Screening, both breasts Mammogram, Screening, both breasts [facility] Work Phone: Start: 12-22-2014 End: 12-23-2014 Gastroenterology Referral Gastroenterology Referral Baodonald Jordan, [address] [place] [address], [address], [place], [address] [facility] Work Phone: Start: 12-07-2014 End: 12-09-2014 *B12FO Vitamin B12 and Folates *B12FO Vitamin B12 and Folates [facility] Work Phone: Start: 12-07-2014 End: 12-10-2014 *CBC with Differential *CBC with Differential [facility] Work Phone: Start: 12-07-2014 End: 12-09-2014 *CMP Complete Metabolic Panel *CMP Complete Metabolic Panel [facility] Work Phone: Start: 12-07-2014 End: 12-09-2014 Ferritin mass conc *Ferritin [facility] Work Phone: Start: 12-07-2014 End: 12-09-2014 Iron and Iron binding capacity panel - Serum or Plasma *IBC Iron & Total Iron Binding Capacity [facility] Work Phone: Start: 12-07-2014 End: 12-09-2014 Lipid 1996 panel *Lipid Profile [facility] Work Phone: Start: 12-07-2014 End: 12-09-2014 Thyrotropin Qn *TSH [facility] Work Phone: Start: 08-17-2014 End: 12-10-2014 Bacteria identified Cx Nom (U) *CUUR - Culture, Urine (High View Count) [facility] Work Phone: Start: 08-17-2014 End: 12-10-2014 Urnls dip stick/tablet rgnt non-auto w/o micrscp UA Dipstick (Office) [facility] Work Phone: Start: 07-28-2014 End: 12-10-2014 *CUUID - Urine CAMRON Culture - Identificatn *CUUID - Urine CAMRON Culture - Identificatn [facility] Work Phone: Start: 07-28-2014 End: 12-10-2014 Follow-up visit Follow Up as needed [facility] Work Phone: Start: 07-28-2014 End: 07-29-2014 Urinalysis complete panel - Urine *UAC- Urinalysis, Complete w/ Micro [facility] Work Phone: Start: 07-28-2014 End: 12-10-2014 Urnls dip stick/tablet rgnt non-auto w/o micrscp UA Dipstick (Office) [facility] Work Phone: Start: 05-21-2014 End: 12-10-2014 *CUUID - Urine CAMRON Culture - Identificatn *CUUID - Urine CAMRON Culture - Identificatn [facility] Work Phone: Start: 05-21-2014 End: 12-10-2014 Arthrocentesis aspir&/inj major jt/bursa w/o us Injection, Joint (major) [facility] Work Phone: Start: 05-21-2014 End: 12-10-2014 Dermatology Referral Dermatology Referral Marylin Camacho, [address] [place], [address] [facility] Work Phone: Start: 05-21-2014 End: 12-10-2014 Triamcinolone acet inj NOS Kenalog per 10 mg [facility] Work Phone: Start: 05-21-2014 End: 12-10-2014 Urnls dip stick/tablet rgnt non-auto w/o micrscp UA Dipstick (Office) [facility] Work Phone: Start: 05-04-2014 End: 05-08-2014 *CBC with Differential *CBC with Differential [facility] Work Phone: Start: 05-04-2014 End: 12-10-2014 Follow Up Appt 3 months Follow Up Appt 3 months [facility] Work Phone: Immunizations Immunization Date Immunization Notes Care Provider Fa judy 07-11-2017 tetanus toxoid, redu erika diphtheria toxoid, and acellular pertussis vaccine, adsorbed Rupinder Zhu LPN [facility] Work Phone: 07-11-2017 [id number] Rupinder Zhu LPN [facility] Work Phone: Summary Purpose [...] BE BASED ON THE PRIMARY CLINICAL RECORDS. [employer] provides no warranty or guarantee of the accuracy or completeness of information in this document.
[2023-10-04 15:42] VITALS: BP 125/53; PULSE 75; RESP 17; RESP 18; TEMP 36.4; O2SAT 97; BMI 30.7
--- NOTE | 2023-10-04 16:13 | PCM.HP.STD ---
HPI - General General Date of Admission: 10/04/23 Date of Service: 10/04/23 Chief Complaint: Debility due to closed head injury due to a fall HPI Narrative KAELA ALDANA, is a 87 F with a past medical history of hypertension, obesity, hypothyroidism, remote history of rheumatic fever, celiac disease, osteoporosis, GERD, hiatal hernia, peptic ulcer disease with GI bleed, overactive bladder, recurrent UTIs, depression, osteoarthritis and chronic neck pain who presented to the emergency department at [facility] on 09/28/2023 complaining of headache, confusion, dizziness and difficulty walking secondary to unsteady gait. The symptoms had started 1 day prior to presenting to the emergency room when she fell in her kitchen. Her found her on the floor and the patient cannot really recall if she tripped or if she had syncope. 911 was called and EMS evaluated her and could find no acute injury. She was not transported to the emergency room at that time. On 09/28/2023 she had been in bed all day complaining of a headache. She had no slurred speech and no focal neurologic signs. She was taken to the emergency department where a CT scan of the head was negative for acute pathologic changes. She was noted to have a ruptured left TM and evidence of concussion complicated by polypharmacy (medications include amitriptyline 25 mg q HS, Gabapentin 300 mg 3 times daily, trazodone 50 mg nightly and tramadol 50 mg every 8 hours) and generalized weakness with ambulatory dysfunction that had worsened since her fall. She was admitted to the hospitalist service. She was evaluated by PT/OT and although she is ambulating with a FWW at [facility] she is still c/o dizziness. Admission to SNF was recommended. She was transferred to the transitional care unit at [facility] on 10/04/2023 for therapy to strengthen and stabilize her gait prior to going home. She denies any change in mentation since the fall but, she is c/o her vision being somewhat blurry. She denies loss of vision and she currently denies dizziness/vertigo. She is c/o pain in the Left posterior neck and trapezius ridge that radiates to the L side of the scalp. She uses a FWW for ambulation at home. she can not recall why she fell or if she passed out. [facility] Medical History (Updated 10/05/23 @ 11:[address] Whitney Gusman DO) Alcohol use Anemia Anxiety Celiac disease Chronic pain Depression Dietary restriction Gastric reflux GERD (gastroesophageal reflux disease) GI bleed Hearing loss, left Hearing loss, right History of depression History of GI bleed History of hiatal hernia History of rheumatic fever History of stress test Hoarseness Hypertension Hypothyroidism Non-smoker Osteoporosis Osteoporosis Thyroid disease Walker as ambulation aid Wears hearing aid Wears hearing aid in both ears Home Medications amitriptyline 25 mg tablet 25 mg PO QHS Mood 08/16/20 [History Last Taken 10/03/23] amlodipine 5 mg tablet 5 mg PO DAILY BP 08/16/20 [History Last Taken 12/06/22] azelastine 137 mcg (0.1 %) nasal spray aerosol 1 spray NASAL BID SINUS 08/16/20 [History Last Taken 10/04/23] fluticasone propionate 50 mcg/actuation nasal spray,suspension 1 spray NASAL BID allergies 08/16/20 [History Last Taken 10/04/23] 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 08/16/20 [History Last Taken 10/04/23] trazodone 50 mg tablet 50 mg PO QHS sleep 08/16/20 [History Last Taken 10/03/23] tramadol 50 mg tablet 50 mg PO Q8H Pain 11/09/20 [History Last Taken 10/04/23] acetaminophen 500 mg tablet 500 mg PO Q6H PRN PRN Pain 1-10 Or Fever 11/22/20 [History Last Taken 10/04/23] pantoprazole 40 mg tablet,delayed release 40 mg PO BID GERD 11/22/20 [History Last Taken 10/04/23] levothyroxine 75 mcg tablet 75 mcg PO DAILY@0600 Thyroid #30 tabs 11/25/20 [Rx Last Taken 10/04/23] lisinopril 20 mg tablet 20 mg PO DAILY BP 01/30/21 [History Last Taken 10/04/23] cefdinir 300 mg capsule 300 mg PO Q12 Antibiotic 5 days #0 caps 10/04/23 [Rx Last Taken 10/04/23] ciprofloxacin HCl 0.3 % eye drops 2 drp LEFT EAR BID Antibiotic 7 days #0 mL 10/04/23 [Rx Last Taken 10/04/23] Allergy/AdvReac Type Severity Reaction Status Date / Time gluten Allergy Food Verified 01/18/23 20:27 Allergy grass pollen-perennial rye, Allergy sinus Verified 01/18/23 20:27 standar pressure [grass poll-perennial rye,std] house dust AdvReac Other Verified 01/18/23 20:27 lactose AdvReac Food Verified 01/18/23 20:27 Allergy mold AdvReac Other Verified 01/18/23 20:27 Surgical History History of back surgery History of bilateral salpingo-oophorectomy (BSO) History of biopsy of bladder History of cholecystectomy History of cystostomy History of hysterectomy History of right knee surgery History of shoulder surgery Social History Smoking Status: Never smoker alcohol intake: never ROS Constitutional Constitutional: Reports weakness; Denies anorexia, change in weight, chills, fatigue, fever(s) or night sweats Eyes Eyes: Reports blurry vision and change in vision; Denies eye pain or loss of vision ENT HEENT: Reports dry mouth and headache(s); Denies abnormal hearing, dizziness, dysphagia, hearing loss, nasal congestion or sore throat Cardiovascular Cardiovascular: Denies chest pain, dyspnea on exertion, edema, lightheadedness, orthopnea, palpitations, paroxysmal nocturnal dyspnea or syncope Respiratory/Chest Respiratory/Chest: Denies cough, dyspnea, shortness of breath at rest, shortness of breath with exertion or wheezing Gastrointestinal Gastrointestinal: Denies abdominal pain, constipation, diarrhea, dyspepsia, hematemesis, hematochezia, nausea or vomiting Genitourinary Genitourinary: Denies dysuria, hematuria, nocturia, urinary frequency, urinary hesitancy, urinary incontinence or urinary urgency Musculoskeletal Musculoskeletal: Reports joint pain, muscle weakness and neck pain; Denies back pain or joint swelling Integumentary Integumentary: Reports dry skin; Denies jaundice or photosensitivity Neurologic Neurologic: Reports headache(s); Denies confusion, disequilibrium, dizziness, focal weakness, paresthesias, seizures or tremor(s) Psychiatric Psychiatric: Denies anxiety, depression, homicidal ideation or suicidal ideation Endocrine Endocrinology: Denies change in body appearance, polydipsia or polyuria Hematologic/Lymphatic Hematologic/Lymphatic: Denies easy bleeding, easy bruising or lymphadenopathy Allergic/Immunologic Allergic/Immunologic: Denies rhinitis, eczemia or asthma Vital Signs Vital Signs Vital Signs: 10/04/23 15:42 Temperature 97.6 F L Temperature Source Temporal Pulse Rate 75 Respiratory Rate 18 Blood Pressure 125/53 H Blood Pressure Mean 77 Blood Pressure Source Monitor Blood Pressure Position Semi-Fowlers Blood Pressure Location Right Arm Pulse Ox 97 Oxygen Delivery Method Room Air Physical Exam Const alert, oriented x3, no apparent distress and healthy appearing General Appearance: cooperative and well kempt HEENT normocephalic HEENT Narrative: Dry mucous membranes. She has BL TM perforations. No DC from the ear. No redness in the EAC Head and Scalp: Negative for Izquierdo's sign, raccoon eyes or scalp lesion Eyes PERRL, EOMs intact bilaterally, conjunctivae normal and no scleral icterus Eyes Narrative: Wears glasses General Eye: normal appearance of both eyes Neck No nuchal rigidity Neck Narrative: BL trapezius spasm,R>L, TTP but, no guarding. No radiation into the arms Chest Chest: symmetrical chest wall rise Resp normal respiratory effort and normal air movement Resp Narrative: Coarse crackles in the left base that persist after several deep breaths........admits to having PNA in the past Effort and Inspection: able to speak in complete sentences Cardio regular rhythm, S1 normal heart sound, S2 normal heart sound, no murmurs, no rub and no gallops Cardio Narrative: resting HR is mildly increased. No ectopy. GI normal to inspection, nondistended, normoactive bowel sounds, soft to palpation and non-tender Back/Spine General Back: CVA tenderness Extremity no pedal edema Extremity Narrative: Large cicatrix R knee - has had 4 or 5 surgeries on this knee and at one point had an antibiotic spacer Skin General Skin Exam: no breakdown Rashes: no rashes Neuro oriented x3, CN's II-XII intact bilaterally, moves all extremities and no focal motor deficits Psych mental status grossly normal, thought process normal, cooperative, affect normal and speech normal Appearance: grossly normal, appropriate and well kempt Attitude: calm Activity / Motor Behavior: appropriate eye contact Results Lab / Micro Data 10/05/23 05:29 Assessment & Plan Assessment/Plan (1) Debility: (2) History of recent fall: (3) Closed TBI (traumatic brain injury): QUALIFIERS: Encounter type: subsequent encounter Loss of consciousness presence/duration: unknown LOC status Qualified Code(s): S06.9XAD - Unspecified intracranial injury with loss of consciousness status unknown, subsequent encounter PLAN: mild (4) Eardrum rupture, bilateral: (5) Urinary tract infection: QUALIFIERS: Hematuria presence: without hematuria Urinary tract infection type: acute cystitis Qualified Code(s): N30.00 - Acute cystitis without hematuria PLAN: E. Coli (6) Insomnia: QUALIFIERS: Insomnia type: unspecified Qualified Code(s): G47.00 - Insomnia, unspecified (7) Osteoporosis: QUALIFIERS: Osteoporosis type: age-related Presence of current pathological fracture: without current pathological fracture Qualified Code(s): M81.0 - Age-related osteoporosis without current pathological fracture (8) Hypothyroidism: QUALIFIERS: Hypothyroidism type: acquired Qualified Code(s): E03.9 - Hypothyroidism, unspecified (9) Hypertension: QUALIFIERS: Hypertension type: primary hypertension Qualified Code(s): I10 - Essential (primary) hypertension PLAN: Plan PLAN PT for gait stability OT for ADL's Analgesics as needed-scheduled Tylenol 1 g p.o. every 8 hours and continue tramadol 50 mg p.o. every 12 hours for now. Will also add compounded arthritis cream containing baclofen, lidocaine and diclofenac to the posterior neck and right trapezius ridge. Bowel protocol Fall precautions Assess for Anxiety/Depression GI prophylaxis -not necessary at this time. She denies nausea/vomiting/abdominal pain/epigastric pain. DVT prophylaxis - She is ambulatory and denies any hx of DVT and has a head injury - will defer pharmacologic prophylaxis at this time Follow up with PCP following DC from [facility] AM lab including CMP, CBC, Mag and Phos She would like to stay on amitriptyline. She has taken this medication in the past and it helps her to sleep at night. She agreed to trial discontinuing trazodone. Decrease gabapentin to 200 mg p.o. twice 3 times daily Discouraged her from drinking wine at night since she is taking other sedating medications. heating pad to the posterior neck Finish a 7-day course of antibiotics for treatment of urinary tract infection due to E. coli. DC the ear drops due to BL TM perforations 1. Antipsychotic no 2. Antianxiety no 3. Antidepressant yes for depression and insomnia 4. Hypnotic no 5. Anticoagulant no 6. Antibiotic yes UTI due to E. Coli 7. Diuretic no 8. Opioid yes Tramadol for chronic neck pain 9. Antiplatelet no 10. Hypoglycemic agent no Charges/Coding Visit Charges Inpatient E&M: 38047 SNF Init L1
[2023-10-04] MEDS: traMADol 50 MG Tablet PO (21:10)
[2023-10-04] MEDS: Gabapentin 100 MG Capsule 200 MG PO (21:11)
[2023-10-04] MEDS: Azelastine HCl NASAL.SRY 1 SPRAY NASAL (21:12)
[2023-10-04] MEDS: Arthritis Pain Compound 60 CLICK TUBE TOPICAL (21:13)
[2023-10-04] MEDS: Ciprofloxacin 0.3% 2.5ml Bottle 2 DRP LEFT EAR (21:13)
[2023-10-04] MEDS: Fluticasone 0.05% 1 SPRAY NASAL.SRY NASAL (21:13)
[2023-10-04] MEDS: Amitriptyline 25 MG Tablet PO (21:14)
[2023-10-04] MEDS: Cefdinir 300 MG Capsule PO (21:15)
[2023-10-05] MEDS: Gabapentin 100 MG Capsule 200 MG PO ×3 (05:10→22:38)
[2023-10-05] MEDS: Levothyroxine 75 MCG Tablet PO (05:10)
[2023-10-05 06:41] LABS: ALB/GLOB Ratio 0.9 RATIO (0.9-2.4); AST(SGOT) 16 U/L (15-37); Alanine Aminotransfer ALT/SGPT 14 U/L (13-56); Alkaline Phosphatase 72 U/L (45-117); Anion Gap 6 (5-15); BUN 18 mg/dL (7-18); BUN/Creat Ratio 23.9 RATIO (10-20); Calcium,Total 8.9 mg/dL (8.5-10.1); Chloride 107 mmol/L (98-107); Creatinine, Serum 0.75 mg/dL (0.55-1.02); EST Glomerular Filtration Rate 77 mL/min (>60); Est Glom Filt Rate - Afr Amer 94 mL/min (>60); Estimated Creatinine Clearance 42.53 ml/min; Globulin 3.3 g/dL (2.2-4.2); Glucose 81 mg/dL (74-106); Magnesium 2.2 mg/dL (1.6-2.6); Potassium 3.9 mmol/L (3.5-5.1); Protein, Total 6.3 g/dL (6.4-8.2); Sodium Level 141 mmol/L (136-145)
[2023-10-05 06:43] LABS: Phosphorus 4.2 mg/dL (2.5-4.9)
[2023-10-05] MEDS: Arthritis Pain Compound 60 CLICK TUBE TOPICAL ×2 (08:07→22:38)
[2023-10-05] MEDS: Ciprofloxacin 0.3% 2.5ml Bottle 2 DRP LEFT EAR (08:08)
[2023-10-05] MEDS: Azelastine HCl NASAL.SRY 1 SPRAY NASAL ×2 (08:08→22:38)
[2023-10-05] MEDS: Fluticasone 0.05% 1 SPRAY NASAL.SRY NASAL ×2 (08:09→22:38)
[2023-10-05] MEDS: amLODIPine 10 MG Tablet PO (08:09)
[2023-10-05] MEDS: Lisinopril 20 MG Tablet PO (08:10)
[2023-10-05] MEDS: Cefdinir 300 MG Capsule PO ×2 (08:10→22:39)
[2023-10-05 08:16] VITALS: BP 124/75; PULSE 74; RESP 16; TEMP 36.6; O2SAT 94
[2023-10-05] MEDS: Acetaminophen 500 MG Tablet PO (08:19)
[2023-10-05] MEDS: traMADol 50 MG Tablet PO ×2 (08:19→22:38)
--- NOTE | 2023-10-05 09:34 | PCM.PN.DRR ---
TCU RX Drug Regimen Review Subjective/Objective Subjective/Objective: Subjective: 87 YOF admitted to TCU on 10/04/23 s/p hospitalization after a fall where she had a r/o syncopal event resulting in a closed headed injury. Patient admitted to TCU for strengthening and rehabilitation prior to discharge home where she resides with her spouse. Objective: Allergies gluten Allergy (Verified 01/18/23 20:27) Food Allergy grass pollen-perennial rye, standar [grass poll-perennial rye,std] Allergy (Verified 01/18/23 20:27) sinus pressure house dust Adverse Reaction (Verified 01/18/23 20:27) Other SINUS PRESSURE lactose Adverse Reaction (Verified 01/18/23 20:27) Food Allergy mold Adverse Reaction (Verified 01/18/23 20:27) Other SINUS PRESSURE Current Medications Generic Name Dose Route Start Last Admin Trade Name Freq PRN Reason Stop Dose Admin Acetaminophen 500 mg 10/04/23 15:48 10/05/23 08:19 Acetaminophen 500 Mg Tablet PO 500 mg Q6H PRN PRN Administration Pain 1-10 Or Fever Amitriptyline HCl 25 mg 10/04/23 22:00 10/04/23 21:14 Amitriptyline 25 Mg Tablet PO 25 mg QHS FRED Administration Amlodipine Besylate 10 mg 10/05/23 10:00 10/05/23 08:09 Amlodipine 10 Mg Tablet PO 10 mg DAILY FRED Administration Protocol Azelastine HCl 1 spray 10/04/23 22:00 10/05/23 08:08 Azelastine Hcl Nasal.Sry NASAL 1 spray BID FRED Administration Cefdinir 300 mg 10/04/23 22:00 10/05/23 08:10 Cefdinir 300 Mg Capsule PO 10/09/23 23:00 300 mg Q12 FRED Administration Ciprofloxacin HCl 2 drp 10/04/23 22:00 10/05/23 08:08 Ciprofloxacin 0.3% 2.5ml Bottle LEFT EAR 10/11/23 22:01 2 drp BID FRED Administration Compound Med 0 click 10/04/23 22:00 10/05/23 08:07 Arthritis Pain Compound 60 Click Tube TOPICAL 1 click BID FRED Administration Protocol Fluticasone Propionate 1 spray 10/04/23 22:00 10/05/23 08:09 Fluticasone 0.05% 1 [place] Nasal.Sry NASAL 1 spray BID FRED Administration Gabapentin 200 mg 10/04/23 22:00 10/05/23 05:10 Gabapentin 100 Mg Capsule PO 200 mg TID FRED Administration Levothyroxine Sodium 75 mcg 10/05/23 06:00 10/05/23 05:10 Levothyroxine 75 Mcg Tablet PO 75 mcg DAILY@0600 FRED Administration Lisinopril 20 mg 10/05/23 10:00 10/05/23 08:10 Lisinopril 20 Mg Tablet PO 20 mg DAILY FRED Administration Protocol Sodium Chloride 10 - 40 ml 10/04/23 16:07 0.9% Saline Lock 10 Ml Syringe IV UD PRN SALINE FLUSH Tramadol HCl 50 mg 10/04/23 22:00 10/05/23 08:19 Tramadol 50 Mg Tablet PO 50 mg Q12 FRED Administration Tuberculin PPD 0.1 ml 10/12/23 10:00 Tuberculin,Purif.Prot.Deriv. 50 Tu/Ml Vial ID 10/12/23 10:01 X1 ONE Tuberculin PPD 0.1 ml 10/05/23 10:00 Tuberculin,Purif.Prot.Deriv. 50 Tu/Ml Vial ID 10/05/23 10:01 X1 ONE Problem List (Updated 10/04/23 @ 19:[address] Whitney Gusman, DO) Rupture of left tympanic membrane (Acute) Closed TBI (traumatic brain injury) (Acute) Debility (Acute) History of recent fall (Acute) Urinary tract infection (Acute) Insomnia (Chronic) Osteoporosis (Chronic) Hypothyroidism (Chronic) Hypertension (Chronic) Vital Signs Temp Pulse Resp BP Pulse Ox O2 Del Method 97.9 F 74 16 124/75 H 94 Room Air 10/05/23 08:16 10/05/23 08:16 10/05/23 08:16 10/05/23 08:16 10/05/23 08:16 10/05/23 08:16 Oxygen Delivery Method Room Air Weight: 66.706 kg Body Mass Index (BMI) 30.7 Sodium 141 mmol/L (136-145) 10/05/23 05:29 Potassium 3.9 mmol/L (3.5-5.1) 10/05/23 05:29 Chloride 107 mmol/L (98-107) 10/05/23 05:29 Carbon Dioxide 28.0 mmol/L (21.0-32.0) 10/05/23 05:29 Anion Gap 6 (5-15) 10/05/23 05:29 BUN 18 mg/dL (7-18) 10/05/23 05:29 Creatinine 0.75 mg/dL (0.55-1.02) 10/05/23 05:29 Est GFR (MDRD) Af Amer 94 mL/min (>60) 10/05/23 05:29 Est GFR (MDRD) Non-Af 77 mL/min (>60) 10/05/23 05:29 BUN/Creatinine Ratio 23.9 RATIO (10-20) H 10/05/23 05:29 Glucose 81 mg/dL (74-106) 10/05/23 05:29 Assessment/Plan: 1. Pain: Arthritis Pain compound topically BID, Tylenol 500mg PO Q6h PRN Pain, Tramadol 50mg PO Q12h. Please continue to monitor for increased/decreased S/S pain, oversedation/dizziness with tramadol use, skin irritation/redness with topical cream application. -The patient had used 1 dose of Tylenol for headache rated 4/10. 2. UTI: Cefdinir 300mg PO Q12h thru 10/09/22. Please continue to monitor for resolution of urinary symptoms, diarrhea. Culture data from 09/26/23 shows E.coli growing which is sensitive to Cefdinir at this time, continue current therapy based on culture results. 3. Hypertension: Norvasc 10mg PO Daily, Lisinopril 20mg PO Daily. Please continue to monitor BP (last 124/75), potassium levels (last 3.9 on 10/05). 4. Hypothyroidism: Levothyroxine 75mcg PO Daily. Please continue to monitor for S/s hypothyroid, TSH levels as clinically indicated. 5. Allergic Rhinitis: Azelastine nasal spray BID, Flonase nasal spray BID. Please continue to monitor for symptom improvement, nasal irritation, rebound congestion. 6. Eye Infection: Cipro Eye drops 2 gtt left eye BID thru 10/11/22. Please continue to monitor for resolution of eye infection. Assessment/Plan for indications treated with psychotropic medications: 1. Neuropathic pain: Gabapentin 200mg PO TID. Please continue to monitor for increased risk of falls, oversedation. Of note; medication was already decreased on admission from 300mg to 200mg. 2. Insomnia: Amitriptyline 25mg PO QHS. Please continue to monitor for blurry vision, tremors, constipation. This is a Beer's Criteria medication which can increase the risk of orthostatic hypotension, drowsiness. Please continue to monitor for these side effects and consider an alternate medication if the risk of use outweighs the benefit. Note: recommendation made to decrease/stop medication, but pt requested medication be continued at time of admission. Medical chart and medication regimen reviewed. The following medication irregularities or issues were identified: No medication irregularities were identified at time of medication chart review. Date Date of Note:: 10/05/23
[2023-10-05 09:53] VITALS: O2SAT 94
--- NOTE | 2023-10-05 11:49 | NURSING ---
Activity Coordinate Note; Activity Asset: Katy Calles is independent in her choice of daily activities with reminders. 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 She enjoys watching tv, visiting w/others and welcomes visits w/entry level automotive technician and therapy dog. Family will visit daily. Staff will continue to remind her of daily activities and respect her right to say no.
[2023-10-05 14:17] VITALS: BP 116/64; PULSE 90; RESP 18; TEMP 36.8; O2SAT 94
[2023-10-05] MEDS: Tuberculin,Purif.prot.deriv. 50 TU/ML Vial 0.100000000000000006 ML ID (16:49)
--- NOTE | 2023-10-05 18:33 | CASEMGMT ---
Social Work Met with patient to complete initial assessment. present in room. Pt granted permission for to remain for assessment. Pt known to his worker from previous visit. Verified/updated contacts. Confirmed code status is DNR-CCA, no intubation. Educated to [facility] insurance with NRD / and continued stay is not guaranteed with each review. Pt's goal is to DC to [facility] where recently moved into. [facility] can accept pt when ready. will continue to follow for DC planning. Flori Magaña, MEAT AND SEAFOOD CLERK TELEVISION AND RADIO REPAIRER
[2023-10-05 18:40] LABS: Absolute Lymphocyte Count 1.21 X10^3/uL (0.83-4.51); Absolute Neutrophil Count 2.8 X10^3/uL (2.0-7.7); Basophil# 0.05 X10^3/uL; Basophil% 1.1 % (0-1); Eosinophil# 0.23 X10^3/uL; Eosinophils% 4.9 % (0-5); Hematocrit 33.5 % (37-47); Hemoglobin 10.8 g/dL (12.0-15.0); Lymphocyte # 1.21 X10^3/ul (0.83-4.51); Lymphocyte % 25.6 % (19-41); Mean Corp Hgb Conc 32.2 g/dL (32-36); Mean Corpuscular Hgb 31.3 pg (27.0-32.0); Mean Corpuscular Volume 97.1 fL (81-99); Mean Platelet Vol. 9.1 fl (6.2-12.0); Monocyte# 0.43 X10^3/uL; Monocyte% 9.1 % (0-10); NRBC Flagged by Analyzer 0 % (0-5); Neutrophil # 2.79 X10^3/uL (2.7-7.7); Neutrophil % 58.9 % (47-70); Platelet Count 314 K/mm3 (150-450); RBC Distribution Width CV 12.9 % (11.6-14.6); Red Blood Count 3.45 M/mm3 (4.2-5.4); White Blood Count 4.7 K/mm3 (4.4-11.0)
[2023-10-05 18:42] LABS: POSITIVE COUNT YES; POSITIVE DIFFERENTIAL YES; POSITIVE MORPHOLOGY YES
[2023-10-05] MEDS: Amitriptyline 25 MG Tablet PO (22:40)
[2023-10-06] MEDS: Acetaminophen 500 MG Tablet PO ×3 (00:48→21:14)
[2023-10-06] MEDS: Gabapentin 100 MG Capsule 200 MG PO ×3 (05:43→21:13)
[2023-10-06] MEDS: Levothyroxine 75 MCG Tablet PO (05:43)
[2023-10-06] MEDS: Azelastine HCl NASAL.SRY 1 SPRAY NASAL ×2 (09:21→21:12)
[2023-10-06] MEDS: Arthritis Pain Compound 60 CLICK TUBE TOPICAL ×2 (09:21→21:12)
[2023-10-06] MEDS: Fluticasone 0.05% 1 SPRAY NASAL.SRY NASAL ×2 (09:21→21:12)
[2023-10-06] MEDS: Cefdinir 300 MG Capsule PO ×2 (09:24→21:13)
[2023-10-06] MEDS: amLODIPine 10 MG Tablet PO (09:25)
[2023-10-06] MEDS: Lisinopril 20 MG Tablet PO (09:25)
[2023-10-06] MEDS: traMADol 50 MG Tablet PO ×2 (09:36→21:14)
[2023-10-06 09:41] VITALS: BP 120/59; PULSE 81
[2023-10-06 16:00] VITALS: BP 120/59; PULSE 76; RESP 16; TEMP 36.7; O2SAT 94
--- NOTE | 2023-10-06 17:49 | NURSING ---
THis RN aware of Vitals done today by [facility]ING AND REGULATING CHIEF at 1600.
[2023-10-06] MEDS: Magnesium Chloride 64 MG Delay Rel.Tablet 128 MG PO (21:13)
[2023-10-06] MEDS: Amitriptyline 25 MG Tablet PO (21:13)
[2023-10-07] MEDS: Acetaminophen 500 MG Tablet PO ×3 (03:14→23:59)
[2023-10-07] MEDS: Gabapentin 100 MG Capsule 200 MG PO ×3 (06:00→21:40)
[2023-10-07] MEDS: Levothyroxine 75 MCG Tablet PO (06:00)
[2023-10-07] MEDS: Arthritis Pain Compound 60 CLICK TUBE TOPICAL ×2 (10:14→21:41)
[2023-10-07] MEDS: Fluticasone 0.05% 1 SPRAY NASAL.SRY NASAL ×2 (10:15→21:41)
[2023-10-07] MEDS: Azelastine HCl NASAL.SRY 1 SPRAY NASAL ×2 (10:15→21:41)
[2023-10-07] MEDS: Cefdinir 300 MG Capsule PO ×2 (10:17→21:41)
[2023-10-07] MEDS: Lisinopril 20 MG Tablet PO (10:17)
[2023-10-07] MEDS: amLODIPine 10 MG Tablet PO (10:18)
[2023-10-07] MEDS: traMADol 50 MG Tablet PO ×2 (10:22→21:40)
[2023-10-07 14:28] VITALS: BP 123/75; PULSE 84; RESP 16; TEMP 36.7; O2SAT 97
[2023-10-07] MEDS: Amitriptyline 25 MG Tablet PO (21:41)
[2023-10-07] MEDS: Magnesium Chloride 64 MG Delay Rel.Tablet 128 MG PO (21:42)
[2023-10-08] MEDS: Levothyroxine 75 MCG Tablet PO (04:58)
[2023-10-08] MEDS: Gabapentin 100 MG Capsule 200 MG PO ×3 (04:58→21:52)
[2023-10-08 06:15] VITALS: RESP 16
[2023-10-08] MEDS: traMADol 50 MG Tablet PO ×2 (09:47→21:52)
[2023-10-08] MEDS: Azelastine HCl NASAL.SRY 1 SPRAY NASAL ×2 (09:48→21:50)
[2023-10-08] MEDS: Fluticasone 0.05% 1 SPRAY NASAL.SRY NASAL ×2 (09:49→21:51)
[2023-10-08] MEDS: Arthritis Pain Compound 60 CLICK TUBE TOPICAL (09:49)
[2023-10-08] MEDS: Lisinopril 20 MG Tablet PO (09:49)
[2023-10-08] MEDS: amLODIPine 10 MG Tablet PO (09:49)
[2023-10-08] MEDS: Cefdinir 300 MG Capsule PO ×2 (09:49→21:52)
[2023-10-08 09:53] VITALS: BP 131/63; PULSE 74
[2023-10-08] MEDS: Acetaminophen 500 MG Tablet PO ×2 (13:17→20:23)
[2023-10-08 14:38] VITALS: BP 122/54; PULSE 79; RESP 16; TEMP 36.8; O2SAT 93
[2023-10-08] MEDS: Magnesium Chloride 64 MG Delay Rel.Tablet 128 MG PO (21:52)
[2023-10-08] MEDS: Amitriptyline 25 MG Tablet PO (21:52)
[2023-10-09] MEDS: Acetaminophen 500 MG Tablet PO ×2 (02:30→08:30)
[2023-10-09] MEDS: Levothyroxine 75 MCG Tablet PO (05:00)
[2023-10-09] MEDS: Gabapentin 100 MG Capsule 200 MG PO ×3 (05:00→22:20)
[2023-10-09] MEDS: Fluticasone 0.05% 1 SPRAY NASAL.SRY NASAL ×2 (08:19→22:26)
[2023-10-09] MEDS: Azelastine HCl NASAL.SRY 1 SPRAY NASAL ×2 (08:19→22:26)
[2023-10-09] MEDS: amLODIPine 10 MG Tablet PO (08:20)
[2023-10-09] MEDS: Lisinopril 20 MG Tablet PO (08:20)
[2023-10-09] MEDS: Arthritis Pain Compound 60 CLICK TUBE TOPICAL ×2 (08:20→22:26)
[2023-10-09] MEDS: Cefdinir 300 MG Capsule PO ×2 (08:20→22:25)
--- NOTE | 2023-10-09 09:15 | CASEMGMT ---
Social Work IDT met with patient and RAFAELA for care plan meeting. Discussed patient's progress in PT/OT/SN. Educated to [facility] insurance with NRD 10/10. Pt is requesting to [place]. RAFAELA is off work and can transport 10/12. IDT and pt agreeable. Therapy recommending [facility] PT/OT at [place]. Pt agreeable. SW offered list of skilled [facility] agencies with quality and resource via [employer] Guide, but pt and RAFAELA denied, agreeable to using [facility]. No DME needs. ALLI phoned referral to [facility] PT/OT Plan: DC 10/12 to [place] with , [facility] PT/OT [facility] SalmeronW
[2023-10-09] MEDS: traMADol 50 MG Tablet PO ×2 (10:49→22:23)
[2023-10-09 12:32] VITALS: BMI 30.1
[2023-10-09 12:56] VITALS: BP 112/67; PULSE 90; RESP 16; TEMP 36.9; O2SAT 95
[2023-10-09] MEDS: Magnesium Chloride 64 MG Delay Rel.Tablet 128 MG PO (22:25)
[2023-10-09] MEDS: Amitriptyline 25 MG Tablet PO (22:25)
[2023-10-09 23:00] VITALS: PULSE 68; RESP 16
[2023-10-10] MEDS: Levothyroxine 75 MCG Tablet PO (05:26)
[2023-10-10] MEDS: Gabapentin 100 MG Capsule 200 MG PO ×3 (05:26→21:53)
[2023-10-10 06:10] VITALS: PULSE 88; RESP 18; O2SAT 98
--- NOTE | 2023-10-10 07:54 | PCM.DC.SUM ---
Providers Date of Admission: 10/04/23 Primary Care Physician: Dr. Roma Grajeda DO Reason For Visit: CLOSED HEAD INJURY AFTER FALL Diagnosis Discharge Diagnosis (1) Debility: Status: Acute Code(s): R53.81 - Other malaise (2) History of recent fall: Status: Acute Code(s): Z91.81 - History of falling (3) Closed TBI (traumatic brain injury): Status: Acute Code(s): S06.9XAA - Unspecified intracranial injury with loss of consciousness status unknown, initial encounter Qualifiers: Encounter type: subsequent encounter Loss of consciousness presence/duration: unknown LOC status Qualified Code(s): S06.9XAD - Unspecified intracranial injury with loss of consciousness status unknown, subsequent encounter (4) Eardrum rupture, bilateral: Status: Acute Code(s): H72.93 - Unspecified perforation of tympanic membrane, bilateral (5) Urinary tract infection: Status: Acute Code(s): N39.0 - Urinary tract infection, site not specified Qualifiers: Urinary tract infection type: acute cystitis Hematuria presence: without hematuria Qualified Code(s): N30.00 - Acute cystitis without hematuria (6) Insomnia: Status: Chronic Code(s): G47.00 - Insomnia, unspecified Qualifiers: Insomnia type: unspecified Qualified Code(s): G47.00 - Insomnia, unspecified (7) Osteoporosis: Status: Chronic Code(s): M81.0 - Age-related osteoporosis without current pathological fracture Qualifiers: Osteoporosis type: age-related Presence of current pathological fracture: without current pathological fracture Qualified Code(s): M81.0 - Age-related osteoporosis without current pathological fracture (8) Hypothyroidism: Status: Chronic Code(s): E03.9 - Hypothyroidism, unspecified Qualifiers: Hypothyroidism type: acquired Qualified Code(s): E03.9 - Hypothyroidism, unspecified (9) Hypertension: Status: Chronic Code(s): I10 - Essential (primary) hypertension Qualifiers: Hypertension type: primary hypertension Qualified Code(s): I10 - Essential (primary) hypertension Medications at Discharge Home Medications amitriptyline 25 mg tablet 25 mg PO QHS Mood 08/16/20 azelastine 137 mcg (0.1 %) nasal spray aerosol 1 spray NASAL BID SINUS 08/16/20 fluticasone propionate 50 mcg/actuation nasal spray,suspension 1 spray NASAL BID allergies 08/16/20 tramadol 50 mg tablet 50 mg PO Q8H Pain 11/09/20 acetaminophen 500 mg tablet 500 mg PO Q6H PRN PRN Pain 1-10 Or Fever 11/22/20 pantoprazole 40 mg tablet,delayed release 40 mg PO BID GERD 11/22/20 levothyroxine 75 mcg tablet 75 mcg PO DAILY@0600 Thyroid #30 tabs 11/25/20 lisinopril 20 mg tablet 20 mg PO DAILY BP 01/30/21 amlodipine 10 mg tablet 10 mg PO DAILY 30 days #30 tabs 10/10/23 gabapentin 100 mg capsule 200 mg (2 x 100 mg) PO TID 30 days #180 caps 10/10/23 Hospital Course Operations None Procedures None Summary of Care Provided Minutes Spent on Discharge: 35 Hospital Course: 87 year old female with below past medical history hospitalized for fall, closed head injury, concussion, dizziness, admitted to TCU with debility, here for rehabilitation, strengthening, prior to discharge home with . Discharge 10/12/2023 to [facility] with , [facility] PT/OT. Physical Exam Const alert General Appearance: cooperative HEENT normocephalic Eyes PERRL and EOMs intact bilaterally Neck supple, no JVD and no carotid bruits Resp normal respiratory effort, normal air movement and clear to auscultation bilaterally Cardio regular rate and regular rhythm GI normal to inspection, nondistended, normoactive bowel sounds, non-tender and non-distended Extremity normal capillary refill General Extremity: Negative for edema Skin no rashes or lesions noted General Skin Exam: no breakdown Psych affect normal Appearance: appropriate Weight / BMI Weight Weight: 65.363 kg Body Mass Index (BMI) 30.1 ABG / Lab / Microbiology Data 10/05/23 05:29 10/05/23 05:29 Microbiology: Microbiology 10/09/23 05:09 Nasal Secretion SARS-CoV-2 Antigen (Rapid) - Final 10/05/23 05:19 Nasal Secretion SARS-CoV-2 Antigen (Rapid) - Final D/C Instructions Discharge Diet: No restrictions Discharge Activity: Return to Normal Activity, May Shower and Use Walker Weight Bearing Status: Weight bearing as tolerated Call your doctor if you observe: Fever of 101 or Higher, Inability to urinate, Inability to have a bowel movement, Shortness of breath, Fainting spells, Swelling in the ankles, Chest pain and Uncontrolled pain Additional Instructions: Discharge 10/12/2023 to [facility] with , [facility] PT/OT. Meaningful Use Info Meaningful Use Diagnoses (Choose all that apply): None applicable Discharge Plan Admission Admit Date/Time: 10/04/23 15:19 Primary Reason for Your Visit: Debility. Attending Provider: Whitney Gusman Primary Care Provider: Roma Grajeda Instructions Additional Instructions / Restrictions: Discharge 10/12/2023 to [facility] with , [facility] PT/OT. Discharge Orders/Prescriptions Prescriptions: New amlodipine 10 mg Tablet 10 mg PO DAILY 30 Days Qty: 30 0RF gabapentin 100 mg Capsule 200 mg PO TID 30 Days Qty: 180 0RF Continued amitriptyline 25 MG tablet 25 mg PO QHS Hold Instructions: Resume on 01/03/23. Hold until discussing with your primary care physician azelastine 1 SPRAY aerosol,spray 1 spray NASAL BID fluticasone propionate 1 SPRAY spray,suspension 1 spray NASAL BID tramadol 50 MG tablet 50 mg PO Q8H Hold Instructions: Resume on 12/27/22. Would recommend discussing this medication with your prescribing physician prior to resuming due to the increased risk of confusion and falls acetaminophen 500 MG tablet 500 mg PO Q6H PRN PRN (Reason: Pain 1-10 Or Fever) pantoprazole 40 MG tablet 40 mg PO BID levothyroxine 75 MCG tablet 75 mcg PO DAILY@0600 Qty: 30 0RF lisinopril 20 MG tablet 20 mg PO DAILY Discontinued trazodone 50 MG tablet 50 mg PO QHS amlodipine 5 MG tablet 5 mg PO DAILY gabapentin 300 MG capsule 300 mg PO TID Hold Instructions: Resume on 12/27/22. Would recommend discussing this medication with your prescribing physician prior to resuming due to the increased risk of confusion and falls ciprofloxacin HCl 0.3 % Drops 2 drp LEFT EAR BID 7 Days Qty: 0 0RF Rx Instructions: Continue for 7 days. cefdinir 300 mg Capsule 300 mg PO Q12 5 Days Qty: 0 0RF Referrals / Follow Up: Deangelo Scott MD [Med Staff - Active Staff] - (Left ear TM perforation after fall.) Malys,Roma, DO [Primary Care Provider] - Disposition Disposition (needs filled in before D/C Order can be placed): Home Health Service
--- NOTE | 2023-10-10 07:58 | PCM.TXEXTCAR ---
Diet Diet Order/Speech Therapy: 10/04/23 16:00 Diet: Regular - General Food consistency:: Regular Liquid Consistency:: Regular/Thin Dietary Modifications:: Gluten Free Is pt able to select menu?: Yes Diet Comments: 1 salt packet per meal / lactose free milk to drink Routine Orders/Code Status Code Status: DNRCC-A (No intubation.) Wound(s) Left posterior thigh: Wound Type: Scab Therapies Weight Bearing: Weight bearing as tolerated Extremity Affected:: Bilateral Lower Physical Therapy: Eval and Treat Occupational Therapy: Eval and Treat Problem/Diagnosis (1) Debility: Status: Acute Code(s): R53.81 - Other malaise (2) History of recent fall: Status: Acute Code(s): Z91.81 - History of falling (3) Closed TBI (traumatic brain injury): Status: Acute Code(s): S06.9XAA - Unspecified intracranial injury with loss of consciousness status unknown, initial encounter Comment: Mild (4) Eardrum rupture, bilateral: Status: Acute Code(s): H72.93 - Unspecified perforation of tympanic membrane, bilateral (5) Urinary tract infection: Status: Acute Code(s): N39.0 - Urinary tract infection, site not specified (6) Insomnia: Status: Chronic Code(s): G47.00 - Insomnia, unspecified (7) Osteoporosis: Status: Chronic Code(s): M81.0 - Age-related osteoporosis without current pathological fracture (8) Hypothyroidism: Status: Chronic Code(s): E03.9 - Hypothyroidism, unspecified (9) Hypertension: Status: Chronic Code(s): I10 - Essential (primary) hypertension Allergies/Procedures Done in Hospital Allergies gluten Allergy (Verified 01/18/23 20:27) Food Allergy grass pollen-perennial rye, standar [grass poll-perennial rye,std] Allergy (Verified 01/18/23 20:27) sinus pressure house dust Adverse Reaction (Verified 01/18/23 20:27) Other SINUS PRESSURE lactose Adverse Reaction (Verified 01/18/23 20:27) Food Allergy mold Adverse Reaction (Verified 01/18/23 20:27) Other SINUS PRESSURE Procedures: None Type of Care/Length of Stay Estimated LOS: More Than 30 Days Type of Care Needed: Correction/Assisted Living Rehab Potential: Fair Prognosis: Fair Additional Orders/Day of Discharge Day of Discharge: 10/13/23 Dietary and Speech Recommendations Dietitian Recommendations/Changes: Change diet to liberal regular/gluten free - 1 salt packet per meal and lactose free milk to drink Discharge Plan Admission Admit Date/Time: 10/04/23 15:19 Primary Reason for Your Visit: Debility. Attending Provider: Whitney Gusman Primary Care Provider: Roma Grajeda Instructions Additional Instructions / Restrictions: Discharge 10/12/2023 to [facility] with , [facility] PT/OT. Discharge Orders/Prescriptions Prescriptions: New amlodipine 10 mg Tablet 10 mg PO DAILY 30 Days Qty: 30 0RF gabapentin 100 mg Capsule 200 mg PO TID 30 Days Qty: 180 0RF Continued amitriptyline 25 MG tablet 25 mg PO QHS Hold Instructions: Resume on 01/03/23. Hold until discussing with your primary care physician azelastine 1 SPRAY aerosol,spray 1 spray NASAL BID fluticasone propionate 1 SPRAY spray,suspension 1 spray NASAL BID tramadol 50 MG tablet 50 mg PO Q8H Hold Instructions: Resume on 12/27/22. Would recommend discussing this medication with your prescribing physician prior to resuming due to the increased risk of confusion and falls acetaminophen 500 MG tablet 500 mg PO Q6H PRN PRN (Reason: Pain 1-10 Or Fever) pantoprazole 40 MG tablet 40 mg PO BID levothyroxine 75 MCG tablet 75 mcg PO DAILY@0600 Qty: 30 0RF lisinopril 20 MG tablet 20 mg PO DAILY Discontinued trazodone 50 MG tablet 50 mg PO QHS amlodipine 5 MG tablet 5 mg PO DAILY gabapentin 300 MG capsule 300 mg PO TID Hold Instructions: Resume on 12/27/22. Would recommend discussing this medication with your prescribing physician prior to resuming due to the increased risk of confusion and falls ciprofloxacin HCl 0.3 % Drops 2 drp LEFT EAR BID 7 Days Qty: 0 0RF Rx Instructions: Continue for 7 days. cefdinir 300 mg Capsule 300 mg PO Q12 5 Days Qty: 0 0RF Referrals / Follow Up: Deangelo Scott MD [Med Staff - Active Staff] - (Left ear TM perforation after fall.) Roma Grajeda DO [Primary Care Provider] - Disposition Disposition (needs filled in before D/C Order can be placed): Home Health Service (3) Closed TBI (traumatic brain injury) Qualifiers: Encounter type: subsequent encounter Loss of consciousness presence/duration: unknown LOC status Qualified Code(s): S06.9XAD - Unspecified intracranial injury with loss of consciousness status unknown, subsequent encounter (5) Urinary tract infection Qualifiers: Urinary tract infection type: acute cystitis Hematuria presence: without hematuria Qualified Code(s): N30.00 - Acute cystitis without hematuria (6) Insomnia Qualifiers: Insomnia type: unspecified Qualified Code(s): G47.00 - Insomnia, unspecified (7) Osteoporosis Qualifiers: Osteoporosis type: age-related Presence of current pathological fracture: without current pathological fracture Qualified Code(s): M81.0 - Age-related osteoporosis without current pathological fracture (8) Hypothyroidism Qualifiers: Hypothyroidism type: acquired Qualified Code(s): E03.9 - Hypothyroidism, unspecified (9) Hypertension Qualifiers: Hypertension type: primary hypertension Qualified Code(s): I10 - Essential (primary) hypertension
[2023-10-10 08:08] LABS: Hematocrit 40.8 % (37-47); Hemoglobin 13.1 g/dL (12.0-15.0)
[2023-10-10] MEDS: traMADol 50 MG Tablet PO ×2 (10:39→21:53)
[2023-10-10] MEDS: Arthritis Pain Compound 60 CLICK TUBE TOPICAL ×2 (10:42→21:52)
[2023-10-10] MEDS: Azelastine HCl NASAL.SRY 1 SPRAY NASAL ×2 (10:43→21:52)
[2023-10-10] MEDS: Fluticasone 0.05% 1 SPRAY NASAL.SRY NASAL ×2 (10:43→21:52)
[2023-10-10] MEDS: amLODIPine 10 MG Tablet PO (10:43)
[2023-10-10] MEDS: Lisinopril 20 MG Tablet PO (10:44)
[2023-10-10 10:52] VITALS: BP 112/74; PULSE 86
[2023-10-10] MEDS: COVID VAC 23-24(12UP)(ANDU)/PF 50 MCG/0.5 ML SYRINGE IM (11:17)
[2023-10-10 14:37] VITALS: BP 120/60; PULSE 79; RESP 16; TEMP 36.4; O2SAT 96
[2023-10-10] MEDS: Acetaminophen 500 MG Tablet PO (14:42)
[2023-10-10] MEDS: Amitriptyline 25 MG Tablet PO (21:53)
[2023-10-10] MEDS: Magnesium Chloride 64 MG Delay Rel.Tablet 128 MG PO (21:54)
[2023-10-11] MEDS: Levothyroxine 75 MCG Tablet PO (05:23)
[2023-10-11] MEDS: Gabapentin 100 MG Capsule 200 MG PO ×3 (05:23→22:13)
--- NOTE | 2023-10-11 09:22 | NURSING ---
Labor Relations Supervisor Note; MDS for 10/11/2023 Complete
[2023-10-11] MEDS: Azelastine HCl NASAL.SRY 1 SPRAY NASAL ×2 (09:37→22:15)
[2023-10-11] MEDS: Arthritis Pain Compound 60 CLICK TUBE TOPICAL ×2 (09:37→22:15)
[2023-10-11] MEDS: Fluticasone 0.05% 1 SPRAY NASAL.SRY NASAL ×2 (09:38→22:15)
[2023-10-11] MEDS: Senna/Docusate Sodium 1 Tablet 2 TABLET PO ×2 (09:38→22:14)
[2023-10-11] MEDS: amLODIPine 10 MG Tablet PO (09:38)
[2023-10-11] MEDS: Lisinopril 20 MG Tablet PO (09:39)
[2023-10-11] MEDS: traMADol 50 MG Tablet PO ×2 (09:39→22:14)
[2023-10-11 13:27] VITALS: BP 107/64; PULSE 78; RESP 18; TEMP 36.4; O2SAT 92
--- NOTE | 2023-10-11 16:44 | CASEMGMT ---
Social Work BIMS () and PHQ-2 () completed for MDS assessment. Flori Magaña MSW [employer] MAKER
[2023-10-11 20:00] VITALS: RESP 16
[2023-10-11] MEDS: Amitriptyline 25 MG Tablet PO (22:16)
[2023-10-11] MEDS: Magnesium Chloride 64 MG Delay Rel.Tablet 128 MG PO (22:16)
[2023-10-12] MEDS: Acetaminophen 500 MG Tablet PO ×2 (00:25→09:02)
[2023-10-12 05:47] LABS: Absolute Lymphocyte Count 0.98 X10^3/uL (0.83-4.51); Absolute Neutrophil Count 2.8 X10^3/uL (2.0-7.7); Basophil# 0.04 X10^3/uL; Basophil% 0.9 % (0-1); Eosinophil# 0.15 X10^3/uL; Eosinophils% 3.3 % (0-5); Hematocrit 36.6 % (37-47); Hemoglobin 11.3 g/dL (12.0-15.0); Lymphocyte # 0.98 X10^3/ul (0.83-4.51); Lymphocyte % 21.5 % (19-41); Mean Corp Hgb Conc 30.9 g/dL (32-36); Mean Corpuscular Hgb 30.5 pg (27.0-32.0); Mean Corpuscular Volume 98.9 fL (81-99); Mean Platelet Vol. 9.3 fl (6.2-12.0); Monocyte# 0.62 X10^3/uL; Monocyte% 13.6 % (0-10); NRBC Flagged by Analyzer 0 % (0-5); Neutrophil # 2.75 X10^3/uL (2.7-7.7); Neutrophil % 60.3 % (47-70); Platelet Count 271 K/mm3 (150-450); RBC Distribution Width CV 12.6 % (11.6-14.6); RBC Distribution Width SD 45.4 fl (35.1-43.9); White Blood Count 4.6 K/mm3 (4.4-11.0)
[2023-10-12 06:12] LABS: ALB/GLOB Ratio 0.9 RATIO (0.9-2.4); AST(SGOT) 17 U/L (15-37); Alanine Aminotransfer ALT/SGPT 14 U/L (13-56); Albumin, Serum 3.3 g/dL (3.2-5.0); Alkaline Phosphatase 74 U/L (45-117); Anion Gap 6 (5-15); BUN 23 mg/dL (7-18); BUN/Creat Ratio 26.4 RATIO (10-20); Chloride 109 mmol/L (98-107); Creatinine, Serum 0.87 mg/dL (0.55-1.02); EST Glomerular Filtration Rate 65 mL/min (>60); Est Glom Filt Rate - Afr Amer 79 mL/min (>60); Globulin 3.5 g/dL (2.2-4.2); Glucose 95 mg/dL (74-106); Potassium 4.1 mmol/L (3.5-5.1); Protein, Total 6.8 g/dL (6.4-8.2); Sodium Level 139 mmol/L (136-145)
[2023-10-12] MEDS: Levothyroxine 75 MCG Tablet PO (06:24)
[2023-10-12] MEDS: Gabapentin 100 MG Capsule 200 MG PO (06:24)
[2023-10-12 06:53] VITALS: RESP 16
[2023-10-12] MEDS: Azelastine HCl NASAL.SRY 1 SPRAY NASAL (08:53)
[2023-10-12] MEDS: Senna/Docusate Sodium 1 Tablet 2 TABLET PO (08:53)
[2023-10-12] MEDS: Arthritis Pain Compound 60 CLICK TUBE TOPICAL (08:54)
[2023-10-12] MEDS: Fluticasone 0.05% 1 SPRAY NASAL.SRY NASAL (08:54)
[2023-10-12] MEDS: Lisinopril 20 MG Tablet PO (08:56)
[2023-10-12] MEDS: traMADol 50 MG Tablet PO (09:03)
--- NOTE | 2023-10-15 14:15 | MDS.RN ---
Information for the mds was obtained from review of the clinical record, interview of resident, staff, and direct observation of resident's care.
== END 2023-10-12 10:39 | disposition home health service (06) | DRG 949 ==
PROVIDERS: Family Medicine Geriatric Medicine; Admitting Provider Internal Medicine; PCP Family Medicine; Visit Provider Internal Medicine
DX: S06.9XAD Unspecified intracranial injury with loss of consciousness status unknown, subsequent encounter (principal); N30.00 Acute cystitis without hematuria; E03.9 Hypothyroidism, unspecified; I10 Essential (primary) hypertension; H72.93 Unspecified perforation of tympanic membrane, bilateral; W19.XXXD Unspecified fall, subsequent encounter; K21.9 Gastro-esophageal reflux disease without esophagitis; E66.9 Obesity, unspecified; B96.20 Unspecified Escherichia coli [E. coli] as the cause of diseases classified elsewhere; M81.0 Age-related osteoporosis without current pathological fracture; Z79.899 Other long term (current) drug therapy; G89.29 Other chronic pain; Z91.81 History of falling
CPT/HCPCS: 36415; 80053; 83735; 84100; 85014; 85018; 85025; 87811; 90480; 97110; 97112; 97116; 97162; 97166; 97530; 97535; 97802; 91322

== ENCOUNTER → 2024-01-31 | Outpatient (CLI) | payer MEDICARE, SELFPAY ==
[2024-01-31 15:09] LABS: Basophil# 0.05 X10^3/uL; Basophil% 0.7 % (0-1); Eosinophil# 0.16 X10^3/uL; Eosinophils% 2.3 % (0-5); Hematocrit 35.9 % (37-47); Hemoglobin 11.1 g/dL (12.0-15.0); Lymphocyte % 16.1 % (19-41); Mean Corp Hgb Conc 30.9 g/dL (32-36); Mean Corpuscular Hgb 29.8 pg (27.0-32.0); Mean Corpuscular Volume 96.2 fL (81-99); Mean Platelet Vol. 9.6 fl (6.2-12.0); Monocyte# 0.54 X10^3/uL; Monocyte% 7.9 % (0-10); NRBC Flagged by Analyzer 0 % (0-5); Neutrophil # 4.99 X10^3/uL (2.7-7.7); Neutrophil % 72.9 % (47-70); Platelet Count 314 K/mm3 (150-450); RBC Distribution Width CV 12.7 % (11.6-14.6); RBC Distribution Width SD 45.2 fl (35.1-43.9); Red Blood Count 3.73 M/mm3 (4.2-5.4); White Blood Count 6.9 K/mm3 (4.4-11.0)
[2024-01-31 15:39] LABS: AST(SGOT) 20 U/L (15-37); Alanine Aminotransfer ALT/SGPT 21 U/L (13-56); Albumin, Serum 3.6 g/dL (3.2-5.0); Alkaline Phosphatase 81 U/L (45-117); Anion Gap 8 (5-15); BUN 19 mg/dL (7-18); BUN/Creat Ratio 18.6 RATIO (10-20); Calcium,Total 9.5 mg/dL (8.5-10.1); Chloride 102 mmol/L (98-107); Creatinine, Serum 1.02 mg/dL (0.55-1.02); EST Glomerular Filtration Rate 55 mL/min (>60); Est Glom Filt Rate - Afr Amer 66 mL/min (>60); Free T3 2.8 pg/mL (2.18-3.98); Globulin 3.7 g/dL (2.2-4.2); Glucose 82 mg/dL (74-106); Potassium 4.7 mmol/L (3.5-5.1); Protein, Total 7.3 g/dL (6.4-8.2); Sodium Level 134 mmol/L (136-145); T4 Free Direct 1.29 ng/dL (0.76-1.46); Thyroid Stim Hormone (TSH) 0.82 uIU/mL (0.358-3.74)
== END | disposition home or self-care (01) ==
LOC: MTLAB 12:37
PROVIDERS: PCP Family Medicine; Referring Provider Family Medicine; Visit Provider Family Medicine
DX: I10 Essential (primary) hypertension (principal); E03.9 Hypothyroidism, unspecified
CPT/HCPCS: 36415; 80053; 84439; 84443; 84481; 85025

== ENCOUNTER → 2024-01-31 | Outpatient (CLI) | payer MEDICARE, SELFPAY | END | disposition home or self-care (01) | LOC: BFHLAB 13:37 → LABSPEC 13:37 | PROVIDERS: PCP Family Medicine; Referring Provider Family Medicine; Visit Provider Family Medicine | DX: R30.0 Dysuria (principal) | CPT/HCPCS: 87086; 87088; 87186 ==

== ENCOUNTER 2024-05-28 10:49 | Emergency (ER) | payer MEDICARE, SELFPAY ==
[2024-05-28 10:50] VITALS: BP 114/58; PULSE 63; RESP 17; TEMP 36.4; O2SAT 97; BMI 32.5
--- NOTE | 2024-05-28 11:07 | EKG12_ITS ---
Test Reason : DIZZY Blood Pressure : / mmHG Vent. Rate : 062 BPM Atrial Rate : 062 BPM P-R Int : 170 ms QRS Dur : 092 ms QT Int : 420 ms P-R-T Axes : 044 -23 014 degrees QTc Int : 426 ms Normal sinus rhythm Minimal voltage criteria for LVH, may be normal variant ( R in aVL ) Cannot rule out Anterior infarct , age undetermined Abnormal ECG Confirmed by KOFI LE, ANTONIETA ([id number]), supervising editor news reel RODNEY GUTIERREZ ([id number]) on 05/30/2024 6:44:37 AM Referred By: Confirmed By:LUPE KIRBY MD
--- NOTE | 2024-05-28 11:08 | EX.ED.DYSGE1 ---
HPI History of Present Illness Chief Complaint: Dizziness Informant: patient Narrative Narrative: Brought by EMS from [facility] for feelings of lightheaded symptoms upon standing. No syncopal episodes. No chest pains or shortness of breath no recent cough. No recent vomiting diarrhea. Denies urinary symptoms. They report her blood pressure was low however numbers from EMS systolic 105. She had similar symptoms past states vasovagal episodes. She has history of UTIs blood glucose 205. she states she is a [facility] manage prior to EMS arrival. She is not a diabetic. She is been drinking fluids per patient. Denies bloody or black stools. Patient does have paperwork noting DNR [employer] arrest. Prior similar symptoms: Yes PFSH PFS Medical History History of recent fall Wears hearing aid in both ears Hearing loss, left Hearing loss, right Anemia Anxiety Depression Hypothyroidism Chronic pain Osteoporosis GI bleed GERD (gastroesophageal reflux disease) Wears hearing aid History of depression Alcohol use Walker as ambulation aid Dietary restriction History of hiatal hernia History of GI bleed Celiac disease Gastric reflux Non-smoker Hoarseness History of stress test History of rheumatic fever Thyroid disease Osteoporosis Hypertension Home Medications ?Medication ?Instructions ?Recorded ?Last Taken ?Type amitriptyline 25 mg tablet 25 mg PO QHS Mood 08/16/20 10/03/23 History azelastine 137 mcg (0.1 %) nasal 1 spray NASAL BID SINUS 08/16/20 10/04/23 History spray fluticasone propionate 50 1 spray NASAL BID allergies 08/16/20 10/04/23 History mcg/actuation nasal spray,suspension tramadol 50 mg tablet 50 mg PO Q8H Pain 11/09/20 10/04/23 History acetaminophen 500 mg tablet 500 mg PO Q6H PRN PRN Pain 1-10 Or 11/22/20 10/04/23 History Fever pantoprazole 40 mg tablet,delayed 40 mg PO BID GERD 11/22/20 10/04/23 History release levothyroxine 75 mcg tablet 75 mcg PO DAILY@0600 Thyroid #30 11/25/20 10/04/23 Rx tabs lisinopril 20 mg tablet 20 mg PO DAILY BP 01/30/21 10/04/23 History amlodipine 10 mg tablet 10 mg PO DAILY 30 days #30 tabs 10/10/23 Unknown Rx gabapentin 100 mg capsule 200 mg (2 x 100 mg) PO TID 30 days 10/10/23 Unknown Rx #180 caps nitrofurantoin 100 mg PO Q12 #10 CAPSULES 05/28/24 Unknown Rx monohydrate/macrocrystals 100 mg capsule Allergy/AdvReac Type Severity Reaction Status Date / Time gluten Allergy Food Verified 01/18/23 20:27 Allergy grass pollen-perennial rye, Allergy sinus Verified 01/18/23 20:27 standar (grass pressure poll-perennial rye,std) house dust AdvReac Other Verified 01/18/23 20:27 lactose AdvReac Food Verified 01/18/23 20:27 Allergy mold AdvReac Other Verified 01/18/23 20:27 Surgical History History of biopsy of bladder History of bilateral salpingo-oophorectomy (BSO) History of cystostomy History of shoulder surgery History of right knee surgery History of back surgery History of hysterectomy History of cholecystectomy Social History Smoking Status: Never smoker alcohol intake: never ROS ROS ED Constitutional Constitutional ED: Denies chills, fever(s) or sweats Eyes Eyes: Denies change in vision ENT ENT ED: Denies dysphagia or sore throat Cardiovascular Cardiovascular: Reports other Details: Lightheaded ; Denies chest pain, leg edema, palpitations or racing heartbeat Respiratory/Chest Respiratory/Chest: Denies cough, dyspnea or dyspnea on exertion Gastrointestinal Gastrointestinal: Denies abdominal pain, diarrhea, nausea or vomiting Genitourinary Genitourinary ED: Denies dysuria, hematuria or urinary frequency Musculoskeletal Musculoskeletal: Denies back pain, extremity pain or neck pain Integumentary Denies rash or wounds Neurologic Neurologic: Denies headache(s), paresthesias or weakness EXAM Physical Exam Const Vital Signs: 05/28/24 10:50 05/28/24 12:40 05/28/24 13:54 Temperature 97.6 F L 98 F Temperature Source Oral Pulse Rate 63 77 78 Respiratory Rate 17 17 18 Blood Pressure 114/58 L 146/72 H 118/102 H Blood Pressure Mean 76 96 107 Pulse Ox 97 98 99 Oxygen Delivery Method Room Air Room Air Positive well nourished and well developed General Appearance ED: well developed and NAD HEENT HEENT Narrative: Mild dry mucosal membranes normocephalic and atraumatic Eyes EOMs intact bilaterally and conjunctivae normal General Eye ED: Yes normal appearance of both eyes Neck no lymphadenopathy and supple General: Negative for tenderness Chest Wall Chest: Negative for tenderness Resp normal respiratory effort and normal air movement Effort and Inspection: symmetric chest movement; Negative for respiratory distress Cardio regular rate, regular rhythm and no murmurs Peripheral Pulses: pulses 2+ throughout GI normal to inspection, nondistended, normoactive bowel sounds and non-tender Palpation: Negative for guarding or rebound tenderness present Back/Spine no CVA tenderness and no thoracic nor lumbar tenderness Extremity normal to inspection General Extremety ED: Negative for edema or tenderness General Extremity: Negative for edema Neuro oriented x3, CN's II-XII intact bilaterally and no sensory deficits noted Sensorium / Orientation: awake and alert Skin no rashes or lesions noted and no wounds MDM MDM MDM Narrative Medical decision making narrative: Interventions / MDM: Differential diagnosis: Near syncope, UTI, dehydration Diagnosis considered but do not suspect: Electrolyte abnormalities however labs are stable. My EKG interpretation: Sinus rate of 62, no ST T changes. QTc 426. Imaging independently reviewed and interpreted by myself: N/A External documents reviewed: N/A Test considered but not ordered:N/A ED course: Vital stable blood pressure 114/58 on arrival. She has mild dry mucosal membranes with lightheaded symptoms. Will check EKG basic labs. Will give gentle fluids. Will check a urine with her history of UTIs. Labs slight renal sufficiency creatinine 1.2 up from 1. Sodium 132. Urine notes signs of infection. She is able to ambulate with no return of symptoms after fluids. She started on antibiotics. Initially ordered for Keflex however she states she is apparently on Keflex once a day. Therefore changed over to Macrobid. Urine culture sent. She will continue oral fluids at home. Return precautions. All questions were answered. Re-evaluation: stable Disposition discussed with patient/family/significant other: Patient Case discussed with consulting clinician: N/A This note was generated with [employer] dictation software. It may contain incorrect words, spelling, and punctuation that were not noted in checking the note before signing. Lab Data Attestation: I reviewed the patient's lab results. Labs: Laboratory Results - last 24 hr 05/28/24 05/28/24 11:25 11:34 WBC 7.2 RBC 3.47 L Hgb 10.1 L Hct 32.2 L MCV 92.8 MCH 29.1 MCHC 31.4 L RDW Std Deviation 45.2 H RDW Coeff of Laury 13.3 Plt Count 266 MPV 8.9 Immature Gran % (Auto) 0.400 Neut % (Auto) 71.9 H Lymph % (Auto) 12.8 L [place] % (Auto) 7.5 Eos % (Auto) 6.7 H Baso % (Auto) 0.7 Absolute Neuts (auto) 5.2 Absolute Lymphs (auto) 0.92 Nucleated RBC % 0 Sodium 132 L Potassium 4.1 Chloride 100 Carbon Dioxide 26.0 Anion Gap 6 BUN 26 H Creatinine 1.27 H Estim Creat Clear Calc 35.58 Est GFR (MDRD) Af Amer 51 L Est GFR (MDRD) Non-Af 42 L BUN/Creatinine Ratio 20.5 H Glucose 156 H Calcium 9.3 Urine Color Yellow Urine Clarity Sl. Cloudy Urine pH 6.0 Ur Specific [place] 1.010 Urine Protein Negative Urine Glucose (UA) Normal Urine Ketones Negative Urine Occult Blood Negative Urine Nitrite Negative Urine Bilirubin Negative Urine Urobilinogen Normal Ur Leukocyte Esterase 500 H Urine RBC 0 SEEN Urine WBC 5-10 SEEN Ur Squamous Epith Cells 0-5 SEEN Urine Bacteria 0 SEEN Urine Mucus 0 SEEN Discharge Plan Triage Chief Complaint: Dizziness ED Provider: Speedy Brown Dx/Rx/DC Orders Clinical Impression: Acute UTI, Dehydration, Renal insufficiency, Near syncope Instructions: Dehydration, ED Renal Insufficiency Prescriptions: New nitrofurantoin monohyd/m-cryst 100 mg capsule 100 mg PO Q12 Qty: 10 0RF No Action amitriptyline 25 MG tablet 25 mg PO QHS azelastine 1 SPRAY aerosol,spray 1 spray NASAL BID fluticasone propionate 1 SPRAY spray,suspension 1 spray NASAL BID tramadol 50 MG tablet 50 mg PO Q8H acetaminophen 500 MG tablet 500 mg PO Q6H PRN PRN (Reason: Pain 1-10 Or Fever) pantoprazole 40 MG tablet 40 mg PO BID levothyroxine 75 MCG tablet 75 mcg PO DAILY@0600 Qty: 30 0RF lisinopril 20 MG tablet 20 mg PO DAILY amlodipine 10 mg Tablet 10 mg PO DAILY 30 Days Qty: 30 0RF gabapentin 100 mg Capsule 200 mg PO TID 30 Days Qty: 180 0RF Primary Care Provider: Roma Grajeda Referrals: Roma Grajeda DO [Primary Care Provider] - 1 Week Activity Restrictions/Additional Instructions: Urine noted signs of infection. Creatinine 1.2 up from 1.0 status with IV fluids. Urine culture pending. Continue all fluids for hydration. Follow-up with your doctor. Symptoms worsen, return to the ED for reevaluation. Take and finish antibiotic as prescribed. Print Language: Malay Disposition Disposition: Home, Self Care Discharge Date/Time: 05/28/24 14:00
[2024-05-28 11:37] LABS: Bacteria 0 SEEN /hpf (None Seen); Mucous, Urine 0 SEEN /hpf (<or=2+); Red Blood Cells-Urine 0 SEEN /hpf (0-5)
[2024-05-28] MEDS: 0.9% Normal Saline (500mL Bag) 500 ML 1000 ML IV (11:39)
[2024-05-28 11:41] LABS: Color, Urine Yellow (Yellow); Glucose, Dipstick Normal (Normal); Ketone-Dipstick Negative (Negative); Leukocyte Esterase-Dipstick 500 /ul (Negative); Nitrite-Dipstick Negative (Negative); Occult Blood-Urine Negative /ul (Negative); Protein-Dipstick Negative (Negative); Urine Bilirubin Dipstick Negative (Negative); Urine Clarity Sl. Cloudy (Clear); Urine Urobilinogen Normal (Normal)
[2024-05-28 11:42] LABS: Absolute Lymphocyte Count 0.92 X10^3/uL (0.83-4.51); Absolute Neutrophil Count 5.2 X10^3/uL (2.0-7.7); Basophil# 0.05 X10^3/uL; Basophil% 0.7 % (0-1); Eosinophil# 0.48 X10^3/uL; Eosinophils% 6.7 % (0-5); Hematocrit 32.2 % (37-47); Hemoglobin 10.1 g/dL (12.0-15.0); Lymphocyte # 0.92 X10^3/ul (0.83-4.51); Lymphocyte % 12.8 % (19-41); Mean Corp Hgb Conc 31.4 g/dL (32-36); Mean Corpuscular Hgb 29.1 pg (27.0-32.0); Mean Corpuscular Volume 92.8 fL (81-99); Mean Platelet Vol. 8.9 fl (6.2-12.0); Monocyte# 0.54 X10^3/uL; Monocyte% 7.5 % (0-10); NRBC Flagged by Analyzer 0 % (0-5); Neutrophil # 5.18 X10^3/uL (2.7-7.7); Neutrophil % 71.9 % (47-70); Platelet Count 266 K/mm3 (150-450); RBC Distribution Width CV 13.3 % (11.6-14.6); RBC Distribution Width SD 45.2 fl (35.1-43.9); Red Blood Count 3.47 M/mm3 (4.2-5.4); White Blood Count 7.2 K/mm3 (4.4-11.0)
[2024-05-28 11:48] LABS: Squamous Epithelial Cells - UA 0-5 SEEN /hpf (5-10); White Blood Cells 5-10 SEEN /hpf (0-5)
[2024-05-28 12:11] LABS: Anion Gap 6 (5-15); BUN 26 mg/dL (7-18); BUN/Creat Ratio 20.5 RATIO (10-20); Calcium,Total 9.3 mg/dL (8.5-10.1); Chloride 100 mmol/L (98-107); Creatinine, Serum 1.27 mg/dL (0.55-1.02); EST Glomerular Filtration Rate 42 mL/min (>60); Est Glom Filt Rate - Afr Amer 51 mL/min (>60); Estimated Creatinine Clearance 35.58 ml/min; Glucose 156 mg/dL (74-106); Potassium 4.1 mmol/L (3.5-5.1); Sodium Level 132 mmol/L (136-145)
[2024-05-28 12:40] VITALS: BP 146/72; PULSE 77; RESP 17; O2SAT 98
[2024-05-28 13:10] VITALS: O2SAT 98
[2024-05-28 13:54] VITALS: BP 118/102; PULSE 78; RESP 18; TEMP 36.6; O2SAT 99
[2024-05-28] MEDS: Nitrofurantoin Macrocrystals 100 MG Capsule PO (13:59)
== END 2024-05-28 14:00 | disposition home or self-care (01) ==
PROVIDERS: Emergency Provider Emergency Medicine; PCP Family Medicine; Visit Provider Emergency Medicine
DX: N39.0 Urinary tract infection, site not specified (principal); N28.9 Disorder of kidney and ureter, unspecified; R55 Syncope and collapse; E86.0 Dehydration; I10 Essential (primary) hypertension; H91.93 Unspecified hearing loss, bilateral; E03.9 Hypothyroidism, unspecified; Z66 Do not resuscitate; Z79.890 Hormone replacement therapy; Z79.899 Other long term (current) drug therapy
CPT/HCPCS: 80048; 81001; 85025; 87077; 87086; 87088; 87186; 93005; 96360; 99284; J7030; P9612; A4216

== ENCOUNTER 2024-06-08 22:37 | Emergency (ER) | payer MEDICARE, SELFPAY ==
[2024-06-08 22:40] VITALS: BP 113/60; PULSE 66; RESP 16; TEMP 36.5; O2SAT 96; BMI 24.5
[2024-06-08 22:43] VITALS: BP 113/60; PULSE 63; RESP 16; TEMP 36.5; O2SAT 97
[2024-06-08 23:39] VITALS: BP 136/75; PULSE 73; RESP 16; O2SAT 97
--- NOTE | 2024-06-08 23:50 | RAD_ITS ---
STUDY: X-RAY CHEST REASON FOR EXAM: Female, 88 years old patient with cough. TECHNIQUE: Single AP portable view of the chest. COMPARISON: September 28, 2023. FINDINGS: There are stimulators are visible in the thoracic spinal canal. The lungs are clear and expanded. There is no demonstrated pleural abnormality. There is borderline cardiomegaly. Normal mediastinum and alex. Normal visualized pulmonary arteries. There is atherosclerotic calcification of the aortic arch with tortuosity. There is demineralization of the osseous structures. Patient has had bilateral shoulder arthroplasties. There is no demonstrated abnormality of the visualized soft tissue structures of the upper abdomen. RAD/Chest 1 View (Portable) IMPRESSION: No radiographic evidence of acute cardiopulmonary disease. Electronically Signed: Abril Abraham MD at 0:27 EDT ,
[2024-06-09] MEDS: 0.9% Normal Saline (1000mL) 1,000 ML 999 ML IV
[2024-06-09 00:15] LABS: Absolute Lymphocyte Count 1.24 X10^3/uL (0.83-4.51); Absolute Neutrophil Count 5.8 X10^3/uL (2.0-7.7); Basophil% 0.9 % (0-1); Eosinophil# 0.68 X10^3/uL; Eosinophils% 7.8 % (0-5); Hematocrit 34.3 % (37-47); Hemoglobin 11.1 g/dL (12.0-15.0); Lymphocyte # 1.24 X10^3/ul (0.83-4.51); Lymphocyte % 14.3 % (19-41); Mean Corp Hgb Conc 32.4 g/dL (32-36); Mean Corpuscular Hgb 29.2 pg (27.0-32.0); Mean Corpuscular Volume 90.3 fL (81-99); Mean Platelet Vol. 8.5 fl (6.2-12.0); Monocyte# 0.83 X10^3/uL; Monocyte% 9.5 % (0-10); Neutrophil # 5.79 X10^3/uL (2.7-7.7); Neutrophil % 66.6 % (47-70); Platelet Count 362 K/mm3 (150-450); RBC Distribution Width CV 13.8 % (11.6-14.6); RBC Distribution Width SD 45.6 fl (35.1-43.9); White Blood Count 8.7 K/mm3 (4.4-11.0)
[2024-06-09 00:16] LABS: Basophil# 0.08 X10^3/uL; NRBC Flagged by Analyzer 0 % (0-5)
[2024-06-09 00:39] LABS: Anion Gap 8 (5-15); BUN 25 mg/dL (7-18); BUN/Creat Ratio 25.5 RATIO (10-20); Chloride 97 mmol/L (98-107); Creatinine, Serum 0.98 mg/dL (0.55-1.02); EST Glomerular Filtration Rate 57 mL/min (>60); Est Glom Filt Rate - Afr Amer 69 mL/min (>60); Estimated Creatinine Clearance 37.86 ml/min; Glucose 105 mg/dL (74-106); Magnesium 2.2 mg/dL (1.6-2.6); Potassium 4.1 mmol/L (3.5-5.1); Sodium Level 129 mmol/L (136-145)
[2024-06-09 00:49] LABS: Bacteria 0 SEEN /hpf (None Seen); Mucous, Urine 0 SEEN /hpf (<or=2+); Red Blood Cells-Urine 0 SEEN /hpf (0-5); Squamous Epithelial Cells - UA 0 SEEN /hpf (5-10)
[2024-06-09 00:53] LABS: Color, Urine Yellow (Yellow); Glucose, Dipstick Normal (Normal); Ketone-Dipstick Negative (Negative); Leukocyte Esterase-Dipstick 100 /ul (Negative); Nitrite-Dipstick Negative (Negative); Occult Blood-Urine Negative /ul (Negative); Protein-Dipstick Negative (Negative); Specific Gravity, Urine 1.015 (1.002-1.030); Urine Bilirubin Dipstick Negative (Negative); Urine Clarity Clear (Clear); Urine Urobilinogen Normal (Normal)
[2024-06-09 01:01] LABS: Transitional Epithelial - Ur 0-5 SEEN /hpf (0-5); White Blood Cells 0-5 SEEN /hpf (0-5)
--- NOTE | 2024-06-09 01:20 | EDS_ITS ---
HPI History of Present Illness Chief Complaint: Fatigue Informant: patient and family Narrative Narrative: Patient is an 88-year-old female with past medical history of hypertension and hypothyroidism who stays at assisted living. She states that she is just felt extremely weak and overall unwell. Family reports that she was recently seen for UTI and after the culture resulted had her medication changed to doxycycline. The patient states she has been taking that as directed. Reportedly there was a low blood pressure reading at the longterm and they concern for dehydration or infection based on this reading and therefore she was sent to the hospital for evaluation. Of note the patient states that she has taken tramadol for years but has not had it for the last 5 to 7 days [facility] Medical History History of recent fall Wears hearing aid in both ears Hearing loss, left Hearing loss, right Anemia Anxiety Depression Hypothyroidism Chronic pain Osteoporosis GI bleed GERD (gastroesophageal reflux disease) Wears hearing aid History of depression Alcohol use Walker as ambulation aid Dietary restriction History of hiatal hernia History of GI bleed Celiac disease Gastric reflux Non-smoker Hoarseness History of stress test History of rheumatic fever Thyroid disease Osteoporosis Hypertension Home Medications ?Medication ?Instructions ?Recorded ?Last Taken ?Type amitriptyline 25 mg tablet 25 mg PO QHS Mood 08/16/20 10/03/23 History azelastine 137 mcg (0.1 %) nasal 1 spray NASAL BID SINUS 08/16/20 10/04/23 History spray fluticasone propionate 50 1 spray NASAL BID allergies 08/16/20 10/04/23 History mcg/actuation nasal spray,suspension tramadol 50 mg tablet 50 mg PO Q8H Pain 11/09/20 10/04/23 History acetaminophen 500 mg tablet 500 mg PO Q6H PRN PRN Pain 1-10 Or 11/22/20 10/04/23 History Fever pantoprazole 40 mg tablet,delayed 40 mg PO BID GERD 11/22/20 10/04/23 History release levothyroxine 75 mcg tablet 75 mcg PO DAILY@0600 Thyroid #30 11/25/20 10/04/23 Rx tabs lisinopril 20 mg tablet 20 mg PO DAILY BP 01/30/21 10/04/23 History amlodipine 10 mg tablet 10 mg PO DAILY 30 days #30 tabs 10/10/23 Unknown Rx gabapentin 100 mg capsule 200 mg (2 x 100 mg) PO TID 30 days 10/10/23 Unknown Rx #180 caps nitrofurantoin 100 mg PO Q12 #10 CAPSULES 05/28/24 Unknown Rx monohydrate/macrocrystals 100 mg capsule Allergy/AdvReac Type Severity Reaction Status Date / Time gluten Allergy Food Verified 01/18/23 20:27 Allergy grass pollen-perennial rye, Allergy sinus Verified 01/18/23 20:27 standar (grass pressure poll-perennial rye,std) house dust AdvReac Other Verified 01/18/23 20:27 lactose AdvReac Food Verified 01/18/23 20:27 Allergy mold AdvReac Other Verified 01/18/23 20:27 Surgical History History of biopsy of bladder History of bilateral salpingo-oophorectomy (BSO) History of cystostomy History of shoulder surgery History of right knee surgery History of back surgery History of hysterectomy History of cholecystectomy Social History Smoking Status: Never smoker alcohol intake: never ROS ROS ED Constitutional Constitutional ED: Denies chills or fever(s) Eyes Eyes: Denies change in vision ENT ENT ED: Denies sore throat Cardiovascular Cardiovascular: Denies chest pain Respiratory/Chest Respiratory/Chest: Denies cough or dyspnea Gastrointestinal Gastrointestinal: Denies abdominal pain, diarrhea, nausea or vomiting Genitourinary Genitourinary ED: Denies dysuria Musculoskeletal Musculoskeletal: Reports myalgias Integumentary Denies rash Neurologic Neurologic: Reports weakness; Denies headache(s) Psychiatric Psychiatric: Reports anxiety Hematologic/Lymphatic Hematologic/Lymphatic: Denies easy bleeding or easy bruising EXAM Physical Exam Const Vital Signs: 06/08/24 22:40 06/08/24 22:43 06/08/24 23:39 Temperature 97.7 F L 97.7 F L Temperature Source Oral Oral Pulse Rate 66 63 73 Respiratory Rate 16 16 16 Respiratory Effort Respiratory Pattern Blood Pressure 113/60 113/60 136/75 H Blood Pressure Mean 77 77 95 Pulse Ox 96 97 97 Oxygen Delivery Method Room Air Room Air Room Air 06/09/24 01:39 06/09/24 01:47 06/09/24 01:52 Temperature 97.7 F L Temperature Source Pulse Rate 74 73 Respiratory Rate 18 18 Respiratory Effort Normal Respiratory Pattern Normal Blood Pressure 95/83 H 95/83 H Blood Pressure Mean 87 87 Pulse Ox 95 95 Oxygen Delivery Method Room Air Positive well nourished and well developed General Appearance ED: well developed; Negative for pallor HEENT Reports moist mucous membranes HEENT Narrative: No tongue or lip swelling no oral lesions no airway edema or compromise No signs of infection noted in the posterior pharynx Eyes PERRL and EOMs intact bilaterally General Eye ED: Yes pale conjunctiva; Negative for scleral icterus Neck supple Neck Narrative: No nuchal rigidity or meningeal signs noted Resp normal respiratory effort and clear to auscultation bilaterally Resp Narrative: No nasal flaring retractions tachypnea or accessory muscle use Cardio regular rate and regular rhythm GI normal to inspection, nondistended, normoactive bowel sounds, non-tender, non- distended and no masses GI Narrative: No voluntary guarding or rigidity or pulsatile mass Auscultation: normoactive bowel sounds Palpation: soft Extremity normal to inspection Neuro oriented x3, CN's II-XII intact bilaterally and no sensory deficits noted Sensorium / Orientation: alert Psych Psych Narrative: Patient has a nervous/anxious affect Skin no rashes or lesions noted, no wounds and No skin turgor normal Skin Narrative: Skin turgor is increased General Skin Exam: Negative for jaundice or pallor MDM MDM MDM Narrative Medical decision making narrative: Patient arrived to the ER with stable vitals. Without any medication given reportedly the blood pressure at the longterm was extremely low at 60/30 and upon arrival to the ER it is improved to 113/60. Based on her history of fatigue and reported hypotension at longterm there is concern for infectious process however there is also concern for acute blood loss anemia or acute kidney injury or severe dehydration as a cause of her symptoms. Basic blood work was obtained and reveals no clinically significant finding. Patient's white count is normal there is no left shift going against infectious process. Her urine sample shows no sign of infection either indicated the doxycycline is working and her chest x-ray reveals no acute lung pathology. Remainder lab work shows a stable hemoglobin at her baseline as well as normal kidney function and electrolytes. I discussed with patient and family potential admission as her fatigue is making it difficult to walk. However their main concern was for infection or dehydration and as workup today showing no overt signs of infection and she is given 1 L of IV fluid they feel comfortable with her returning home and following up on outpatient basis. Therefore as patient and family wish for her to return back to the longterm and her workup reveals no signs of acute infection or acute kidney injury or acute blood loss anemia and she has been maintaining her blood pressure in the ER she is otherwise safe for discharge History & Record Review Discussion w/independent historian: Patient and Family Lab Data Attestation: I reviewed the patient's lab results. Labs: Laboratory Results - last 24 hr 06/09/24 06/09/24 00:00 00:44 WBC 8.7 RBC 3.80 L Hgb 11.1 L Hct 34.3 L MCV 90.3 MCH 29.2 MCHC 32.4 RDW Std Deviation 45.6 H RDW Coeff of [place]ury 13.8 Plt Count 362 MPV 8.5 Immature Gran % (Auto) 0.900 Neut % (Auto) 66.6 Lymph % (Auto) 14.3 L [place] % (Auto) 9.5 Eos % (Auto) 7.8 H Baso % (Auto) 0.9 Absolute Neuts (auto) 5.8 Absolute Lymphs (auto) 1.24 Nucleated RBC % 0 Sodium 129 L Potassium 4.1 Chloride 97 L Carbon Dioxide 24.0 Anion Gap 8 BUN 25 H Creatinine 0.98 Estim Creat Clear Calc 37.86 Est GFR (MDRD) Af Amer 69 Est GFR (MDRD) Non-Af 57 L BUN/Creatinine Ratio 25.5 H Glucose 105 Calcium 9.0 Magnesium 2.2 TSH 5.880 H Urine Color Yellow Urine Clarity Clear Urine pH 6.0 Ur Specific [place] 1.015 Urine Protein Negative Urine Glucose (UA) Normal Urine Ketones Negative Urine Occult Blood Negative Urine Nitrite Negative Urine Bilirubin Negative Urine Urobilinogen Normal Ur Leukocyte Esterase 100 H Urine RBC 0 SEEN Urine WBC 0-5 SEEN Ur Squamous Epith Cells 0 SEEN Ur Transition Epith Cell 0-5 SEEN Urine Bacteria 0 SEEN Urine Mucus 0 SEEN Radiography Diagnostic Testing: Clinical Impression(s) from Imaging Studies Chest X-Ray 06/08/24 23:50 IMPRESSION: No radiographic evidence of acute cardiopulmonary disease. Electronically Signed: Abril Abraham MD at 0:27 EDT Reading Location ID and State: [facility] / [place] , Service support , Chest x-ray as interpreted by the emergency medicine physician reveals no acute infiltrate pneumothorax or pleural effusion Discharge Plan Triage Chief Complaint: Fatigue ED Provider: Quentin Melvin Dx/Rx/DC Orders Clinical Impression: Fatigue, Hyponatremia, Hypothyroidism Instructions: ED Hyponatremia, ED Weakness (Uncertain Cause) Prescriptions: No Action amitriptyline 25 MG tablet 25 mg PO QHS azelastine 1 SPRAY aerosol,spray 1 spray NASAL BID fluticasone propionate 1 SPRAY spray,suspension 1 spray NASAL BID tramadol 50 MG tablet 50 mg PO Q8H acetaminophen 500 MG tablet 500 mg PO Q6H PRN PRN (Reason: Pain 1-10 Or Fever) pantoprazole 40 MG tablet 40 mg PO BID levothyroxine 75 MCG tablet 75 mcg PO DAILY@0600 Qty: 30 0RF lisinopril 20 MG tablet 20 mg PO DAILY amlodipine 10 mg Tablet 10 mg PO DAILY 30 Days Qty: 30 0RF gabapentin 100 mg Capsule 200 mg PO TID 30 Days Qty: 180 0RF nitrofurantoin monohyd/m-cryst 100 mg capsule 100 mg PO Q12 Qty: 10 0RF Primary Care Provider: Roma Grajeda Referrals: Roma Grajeda DO [Primary Care Provider] - Print Language: Honduran Disposition Disposition: Home, Self Care Discharge Date/Time: 06/09/24 01:54
[2024-06-09 01:39] VITALS: BP 95/83; PULSE 74; RESP 18; O2SAT 95
[2024-06-09 01:52] VITALS: BP 95/83; PULSE 73; RESP 18; TEMP 36.5; O2SAT 95
--- NOTE | 2024-06-09 02:21 | ED.RN ---
This RN updated [place] facility on pt returning
== END 2024-06-09 01:54 | disposition home or self-care (01) ==
PROVIDERS: Emergency Provider Emergency Medicine; PCP Family Medicine; Visit Provider Emergency Medicine
DX: E87.1 Hypo-osmolality and hyponatremia (principal); I95.9 Hypotension, unspecified; E03.9 Hypothyroidism, unspecified; I10 Essential (primary) hypertension; Z11.52 Encounter for screening for COVID-19; Z79.890 Hormone replacement therapy; Z79.899 Other long term (current) drug therapy
CPT/HCPCS: 71045; 80048; 81001; 83735; 84443; 85025; 87631; 96360; 96361; 99283; J7030; A4216

== ENCOUNTER 2024-07-01 12:41 | Emergency (ER) | payer MEDICARE, SELFPAY ==
[2024-07-01 12:42] VITALS: BP 147/72; PULSE 83; RESP 18; TEMP 36.6; O2SAT 96; BMI 25.7
[2024-07-01 12:46] VITALS: O2SAT 97
--- NOTE | 2024-07-01 13:05 | RAD_ITS ---
STUDY: X-RAY - RIGHT FEMUR REASON FOR STUDY: Female, 88 years old. fall and pain TECHNIQUE: 2 view(s) of the femur. COMPARISON: None. FINDINGS: Normal visualized femur. Normal visualized soft tissue structure. Status post right hip arthroplasty. The prosthesis appears located. No ostial lysis to suggest loosening. Status post total knee arthroplasty. The prosthesis appears located. No ostial lysis to suggest loosening. RAD/Femur Min 2 Views IMPRESSION: No acute fracture or dislocation. Electronically Signed: Richard Clark MD at 13:46 EDT ,
--- NOTE | 2024-07-01 13:05 | RAD_ITS ---
STUDY: X-RAY - PELVIS REASON FOR EXAM: Female, 88 years old. fall and right hip pain TECHNIQUE: One view of the pelvis was obtained. COMPARISON: 11/09/2017 FINDINGS: There is a non-specific bowel gas pattern. Normal visualized soft tissue structures. Status post transpedicular fixation in the lower lumbar spine. Normal bilateral iliac wings, sacroiliac joints and visualized sacrum. Normal visualized bilateral superior and inferior pubic rami. Normal pubic symphysis. Normal ischial tuberosities. Status post right hip arthroplasty. The prosthesis appears located. No ostial lysis to suggest loosening. . Normal visualized left femoral head. Normal left acetabulum. Normal left hip joint. RAD/Pelvis 1 or 2 Views IMPRESSION: No acute fracture or dislocation. Electronically Signed: Richard Clark MD at 13:44 EDT ,
--- NOTE | 2024-07-01 13:10 | ED.VIS.FALL ---
HPI HPI - Fall History of Present Illness Chief Complaint: Fall Informant: patient Occured/Mechanism Occurred: Today Mechanism/Context: Yes same level fall Pain/Injury Pain Location: head and lower extremity Quality of Pain: Sharp Current Severity: Moderate Maximum Severity: Moderate Associated Symptoms Associated Symptoms: Positive for Inability to ambulate; Negative for Parasthesias, Weakness, Loss of function, Loss of consciousness or Amnesia Narrative Narrative: 88-year-old female is a resident at a local nursing facility. Today she wanted to get out of a chair that swivel she fell landing on her knees and is complaining of pain in her right hip. She has had a prior right hip prosthesis that she thinks was done several years ago. She also hit her head but denies any LOC. No headache. She is on no blood thinners. Denies any neck pain. Denies any recent illness. She denies any nausea, vomiting or diarrhea. No dysuria or fever. Prior similar symptoms: No Recent Illness/Hospitalization: Yes PFSH COUNT INCLUDES THE [facility] Medical History History of recent fall Wears hearing aid in both ears Hearing loss, left Hearing loss, right Anemia Anxiety Depression Hypothyroidism Chronic pain Osteoporosis GI bleed GERD (gastroesophageal reflux disease) Wears hearing aid History of depression Alcohol use Walker as ambulation aid Dietary restriction History of hiatal hernia History of GI bleed Celiac disease Gastric reflux Non-smoker Hoarseness History of stress test History of rheumatic fever Thyroid disease Osteoporosis Hypertension Home Medications ?Medication ?Instructions ?Recorded ?Last Taken ?Type amitriptyline 25 mg tablet 25 mg PO QHS Mood 08/16/20 10/03/23 History azelastine 137 mcg (0.1 %) nasal 1 spray NASAL BID SINUS 08/16/20 10/04/23 History spray fluticasone propionate 50 1 spray NASAL BID allergies 08/16/20 10/04/23 History mcg/actuation nasal spray,suspension tramadol 50 mg tablet 50 mg PO Q8H Pain 11/09/20 10/04/23 History acetaminophen 500 mg tablet 500 mg PO Q6H PRN PRN Pain 1-10 Or 11/22/20 10/04/23 History Fever pantoprazole 40 mg tablet,delayed 40 mg PO BID GERD 11/22/20 10/04/23 History release levothyroxine 75 mcg tablet 75 mcg PO DAILY@0600 Thyroid #30 11/25/20 10/04/23 Rx tabs lisinopril 20 mg tablet 20 mg PO DAILY BP 01/30/21 10/04/23 History amlodipine 10 mg tablet 10 mg PO DAILY 30 days #30 tabs 10/10/23 Unknown Rx gabapentin 100 mg capsule 200 mg (2 x 100 mg) PO TID 30 days 10/10/23 Unknown Rx #180 caps nitrofurantoin 100 mg PO Q12 #10 CAPSULES 05/28/24 Unknown Rx monohydrate/macrocrystals 100 mg capsule Allergy/AdvReac Type Severity Reaction Status Date / Time gluten Allergy Food Verified 07/01/24 12:50 Allergy grass pollen-perennial rye, Allergy sinus Verified 07/01/24 12:50 standar (grass pressure poll-perennial rye,std) house dust AdvReac Other Verified 07/01/24 12:50 lactose AdvReac Food Verified 07/01/24 12:50 Allergy mold AdvReac Other Verified 07/01/24 12:50 Surgical History History of biopsy of bladder History of bilateral salpingo-oophorectomy (BSO) History of cystostomy History of shoulder surgery History of right knee surgery History of back surgery History of hysterectomy History of cholecystectomy Social History household members: spouse housing: assisted living facility current occupational status: retired Smoking Status: Never smoker alcohol intake: never ROS ROS ED ROS Narrative Denies recent illness. Review of Systems ROS Unobtainable: Denies due to encephalopathy Constitutional Constitutional ED: Denies chills or fever(s) Eyes Eyes: Denies blurry vision ENT ENT ED: Denies ear pain Cardiovascular Cardiovascular: Denies chest pain Respiratory/Chest Respiratory/Chest: Denies cough or dyspnea Gastrointestinal Gastrointestinal: Denies abdominal pain Genitourinary Genitourinary ED: Denies dysuria or hematuria Musculoskeletal Musculoskeletal: Denies arthralgias Integumentary Denies abscess Neurologic Neurologic: Denies headache(s) Psychiatric Psychiatric: Denies anxiety or depression Endocrine Endocrinology: Denies polydipsia Hematologic/Lymphatic Hematologic/Lymphatic: Denies easy bleeding Allergic/Immunologic Allergic/Immunologic ED: Denies mouth swelling or tongue swelling EXAM Physical Exam Narrative Exam Narrative: Well-appearing 88-year-old female. Vital signs stable afebrile. She does not look septic toxic or any distress. H EENT exam pupils are reactive light. Patient states she hit her forehead there is no bruising or hematoma. No laceration. Is nontender. Scalp nontender. Neck nontender. Lungs clear. Heart regular rhythm rate about 80 no murmur. Chest wall ribs nontender. Abdomen is soft nontender. Upper extremities are nontender. Normal safety director strength. She can raise both arms. Left lower extremity nontender. Right hip looks deformed. It is tender. She cannot do flexion extension of the right hip because of pain. The right knee and lower leg are nontender. Dorsi plantarflexion intact. She is awake alert. Answering questions following commands. Const Vital Signs: 07/01/24 12:42 07/01/24 12:46 Temperature 97.8 F Temperature Source Temporal Pulse Rate 83 Respiratory Rate 18 Respiratory Effort Normal Non-Labored Respiratory Depth Normal Respiratory Pattern Normal Blood Pressure 147/72 H Blood Pressure Mean 97 Pulse Ox 96 97 Oxygen Delivery Method Room Air Room Air Positive well nourished and well developed; Negative for cachectic, contractures or unkempt General Appearance ED: well developed and NAD; Negative for unkempt, cachectic or contractures Nutritional Appearance: Negative for cachectic HEENT Reports normocephalic HEENT Narrative: Right forehead there is no hematoma. No laceration. It is nontender. No significant swelling. trauma; Negative for atraumatic, contusion, hematoma or tenderness Eyes PERRL General Eye ED: Negative for pale conjunctiva or scleral icterus Neck full ROM, no lymphadenopathy and supple General: Negative for tenderness Chest Wall inspection of chest normal and palpation of chest normal Resp normal respiratory effort, no retractions and clear to auscultation bilaterally Effort and Inspection: Negative for pain with movement Auscultation: Negative for rales, rhonchi, wheezes or diminished lung sounds Cardio regular rate, regular rhythm, S1 normal heart sound, S2 normal heart sound and no murmurs Rate: Negative for bradycardia or tachycardic Rhythm: Negative for abnormal rhythm Bruits: Negative for other GI non-tender, non-distended and no masses Inspection: Negative for abdominal distention Auscultation: normoactive bowel sounds Palpation: soft; Negative for guarding or rebound tenderness present Back/Spine no CVA tenderness General Back: Negative for CVA tenderness Cervical Spine: Negative for cervical spine tenderness Extremity Extremity Narrative: Right hip deformity. Tender. Decreased range of motion due to pain. Increased pain in the right hip area with attempted range of motion. Right lower leg nontender. No deformity. Dorsi plantarflexion intact. Neuro oriented x3, CN's II-XII intact bilaterally, moves all extremities and no focal motor deficits Sensorium / Orientation: alert, oriented to person and oriented to place Motor Exam: strength 5/5 throughout Psych mental status grossly normal and thought process normal Appearance: Negative for unkempt Skin Lesions: no lesions Rashes: no rashes MDM MDM MDM Narrative Medical decision making narrative: 88-year-old female prior right hip replacement fell today getting out of a swivel chair she lost her balance. Complaining of right hip and upper leg pain. Hip, pelvis and femur x-ray being obtained. She did not want a thing for pain right now. Concern for either a periprosthetic fracture or hip dislocation. Repeat exam patient is doing well at 2:15 PM. She is moving her right hip better. I spoke to her daughter in law that is at bedside. Vera get up and try to walk her she does well should be discharged back to the extended care facility. History & Record Review Discussion w/independent historian: Patient Additional record(s) reviewed:: Prior inpatient record, Prior outpatient record and Prior ED visit Radiography Diagnostic Testing: Clinical Impression(s) from Imaging Studies Femur X-Ray 07/01/24 13:05 IMPRESSION: No acute fracture or dislocation. Electronically Signed: Richard Clark MD at 13:46 EDT Reading Location ID and State: [id number] / [facility] Tel , Service support , Pelvis X-Ray 07/01/24 13:05 IMPRESSION: No acute fracture or dislocation. Electronically Signed: Richard Clark MD at 13:44 EDT , Right hip x-ray and pelvis, multiple views, interpreted by myself and the radiologist shows no acute fracture or dislocation. There were 4 x-rays taken. Prior hip prosthesis. Right femur x-ray shows both a hip prosthesis and a knee prosthesis. No periprosthetic fracture. Interpreted both by myself and radiologist. Discharge Plan Triage Chief Complaint: Fall ED Provider: Tucker Nguyen Dx/Rx/DC Orders Clinical Impression: Fall, Contusion of hip, History of hip replacement Instructions: ED Hip Contusion Prescriptions: No Action amitriptyline 25 MG tablet 25 mg PO QHS azelastine 1 SPRAY aerosol,spray 1 spray NASAL BID fluticasone propionate 1 SPRAY spray,suspension 1 spray NASAL BID tramadol 50 MG tablet 50 mg PO Q8H acetaminophen 500 MG tablet 500 mg PO Q6H PRN PRN (Reason: Pain 1-10 Or Fever) pantoprazole 40 MG tablet 40 mg PO BID levothyroxine 75 MCG tablet 75 mcg PO DAILY@0600 Qty: 30 0RF lisinopril 20 MG tablet 20 mg PO DAILY amlodipine 10 mg Tablet 10 mg PO DAILY 30 Days Qty: 30 0RF gabapentin 100 mg Capsule 200 mg PO TID 30 Days Qty: 180 0RF nitrofurantoin monohyd/m-cryst 100 mg capsule 100 mg PO Q12 Qty: 10 0RF Primary Care Provider: Roma Grajeda Referrals: Roma Grajeda DO [Primary Care Provider] - As Needed Activity Restrictions/Additional Instructions: Ice to your hip. Tylenol and tramadol for pain. Follow-up with your orthopedic physician if not improving. Your x-rays today look good. There is no broken bones or any dislocation. If not improving have it reevaluated. Print Language: Mongolian Disposition Disposition: Home, Self Care
[2024-07-01 14:41] VITALS: BP 137/68; PULSE 81; O2SAT 98
[2024-07-01] MEDS: traMADol 50 MG Tablet PO (15:18)
[2024-07-01 15:19] VITALS: BP 131/69; PULSE 85; RESP 17; TEMP 36.4; O2SAT 95
== END 2024-07-01 15:50 | disposition home or self-care (01) ==
PROVIDERS: Emergency Provider Emergency Medicine; PCP Family Medicine; Visit Provider Emergency Medicine
DX: S70.00XA Contusion of unspecified hip, initial encounter (principal); R26.2 Difficulty in walking, not elsewhere classified; S09.90XA Unspecified injury of head, initial encounter; W07.XXXA Fall from chair, initial encounter; Y92.129 Unspecified place in nursing home as the place of occurrence of the external cause; I10 Essential (primary) hypertension; E03.9 Hypothyroidism, unspecified; Z79.890 Hormone replacement therapy; Z79.899 Other long term (current) drug therapy; Z96.651 Presence of right artificial knee joint; Z96.641 Presence of right artificial hip joint
CPT/HCPCS: 72170; 73552; 99282

== ENCOUNTER 2024-07-04 15:58 | Observation (INO) | payer MEDICARE, SELFPAY ==
[2024-07-04 16:02] VITALS: BP 140/78; PULSE 78; RESP 16; TEMP 35.7; O2SAT 97
[2024-07-04 17:30] VITALS: BMI 25.6
--- NOTE | 2024-07-04 18:05 | EX.ED.DYSGE1 ---
HPI History of Present Illness Chief Complaint: Lower Extremity Injury [facility] Medical History History of recent fall Wears hearing aid in both ears Hearing loss, left Hearing loss, right Anemia Anxiety Depression Hypothyroidism Chronic pain Osteoporosis GI bleed GERD (gastroesophageal reflux disease) Wears hearing aid History of depression Alcohol use Walker as ambulation aid Dietary restriction History of hiatal hernia History of GI bleed Celiac disease Gastric reflux Non-smoker Hoarseness History of stress test History of rheumatic fever Thyroid disease Osteoporosis Hypertension Home Medications ?Medication ?Instructions ?Recorded ?Last Taken ?Type amitriptyline 25 mg tablet 25 mg PO QHS Mood 08/16/20 10/03/23 History azelastine 137 mcg (0.1 %) nasal 1 spray NASAL BID SINUS 08/16/20 10/04/23 History spray fluticasone propionate 50 1 spray NASAL BID allergies 08/16/20 10/04/23 History mcg/actuation nasal spray,suspension tramadol 50 mg tablet 50 mg PO Q8H Pain 11/09/20 10/04/23 History acetaminophen 500 mg tablet 500 mg PO Q6H PRN PRN Pain 1-10 Or 11/22/20 10/04/23 History Fever pantoprazole 40 mg tablet,delayed 40 mg PO BID GERD 11/22/20 10/04/23 History release levothyroxine 75 mcg tablet 75 mcg PO DAILY@0600 Thyroid #30 11/25/20 10/04/23 Rx tabs lisinopril 20 mg tablet 20 mg PO DAILY BP 01/30/21 10/04/23 History amlodipine 5 mg tablet 5 mg PO DAILY 07/04/24 Unknown History cephalexin 250 mg capsule 250 mg PO DAILY 07/04/24 Unknown History cephalexin 500 mg capsule 500 mg PO Q8 07/04/24 Unknown History gabapentin 300 mg capsule 300 mg PO TID 07/04/24 Unknown History oxycodone 5 mg tablet 5 mg PO Q6H PRN pain 5 days #20 07/04/24 Unknown Rx tabs trazodone 50 mg tablet 50 mg PO QHS 07/04/24 Unknown History Allergy/AdvReac Type Severity Reaction Status Date / Time gluten Allergy Food Verified 07/04/24 16:02 Allergy grass pollen-perennial rye, Allergy sinus Verified 07/04/24 16:02 standar (grass pressure poll-perennial rye,std) house dust AdvReac Other Verified 07/04/24 16:02 lactose AdvReac Food Verified 07/04/24 16:02 Allergy mold AdvReac Other Verified 07/04/24 16:02 Surgical History (Updated 07/04/24 @ 22:21 by Gay Alvarez) S/P hysterectomy History of appendectomy History of biopsy of bladder History of bilateral salpingo-oophorectomy (BSO) History of cystostomy History of shoulder surgery History of right knee surgery History of back surgery History of hysterectomy History of cholecystectomy Social History household members: spouse housing: assisted living facility current occupational status: retired Smoking Status: Never smoker alcohol intake: never EXAM Physical Exam Const Vital Signs: 07/04/24 16:02 07/04/24 19:57 07/04/24 21:06 Temperature 96.3 F L 98.5 F 98.7 F Temperature Source Temporal Oral Pulse Rate 78 86 80 Respiratory Rate 16 16 16 Blood Pressure 140/78 H 142/62 H 160/73 H Blood Pressure Mean 98 88 102 Pulse Ox 97 93 98 Oxygen Delivery Method Room Air Room Air MDM MDM MDM Narrative Medical decision making narrative: HISTORY OF PRESENT ILLNESS: 88-year-old female presents with right hip/pelvic pain. No she was seen in the ED on Sunday and had negative x-rays. Denies urinary complaints. Denies any new falls. Says the pain is more severe than she would expect. REVIEW OF SYSTEMS: Pertinent positives: Hip pain Pertinent negatives: Urinary complaints PHYSICAL EXAM: Nursing triage notes reviewed, Vital signs reviewed Constitutional: please see mdm HENT: MMM Eyes: Pupils equal round and reactive to light, Extraocular muscles intact Neck: No stridor, no JVD, full neck ROM Lungs: Clear to auscultation, No wheezing or rales. No increased work of breathing, no conversational dyspnea, no accessory muscle use, no nasal flaring. No respiratory distress noted Heart: Regular rate and rhythm, No murmurs, No rubs and No gallops, 2+ distal pulses (radial, femoral, posterior tibial) in all extremities Abdomen: Soft, there is no tenderness, rigidity, rebound or guarding, no obvious peritoneal signs, no palpable pulsatile abdominal masses, no auscultated abdominal bruit : No CVAT Extremities: No edema, TTP over right hip Neuro: Intact movement, sensation right lower extremity. 2+ patellar reflexes. Skin: No rash or lesions noted MEDICAL DECISION MAKING: Chief Complaint: Hip pain External records reviewed: Prior imaging reviewed: X-ray of the femur, pelvis from 07/01/2024 shows no acute fracture dislocation Factors affecting care: TBI, low back pain, hypertension, hypothyroidism History obtained from others: Family Consults: Orthopedic Surgery (Dr. Lucas) MDM Narrative: Patient was initially hemodynamically stable, afebrile and nontoxic-appearing. Exam with TTP with internal/external rotation of the right hip. No obvious deformities. I considered the following differential diagnosis: Hip fracture, dislocation, contusion I obtained a CT scan of the hip/pelvis to rule out occult fracture or dislocation. Acute the patient narcotic and anti-inflammatory pain medication. ALL IMAGES (IF OBTAINED) HAVE BEEN PERSONALLY REVIEWED AND INTERPRETED BY MYSELF. CT scan of the hip and pelvis shows a hairline fracture to the right acetabulum Discussed this finding with the orthopedic surgeon on-call Dr. Lucas. He states she should be toe-touch weightbearing, avoid deep flexion or internal rotation, use a walker, have adequate pain control and follow-up as an outpatient. He recommended against acute surgical intervention. On tertiary exam patient cannot ambulate. Given the patient cannot ambulate she is admitted to the internal medicine service. The patient and/or family, caregivers express understanding. The patient and/or family, caregivers agrees with the plan. Shared decision making: I will have a discussion with the patient and or visitors regarding risk/benefits of further testing or admission. They will be made aware of of the risk/benefits inherent in this decision they will be given the opportunity to voice understanding. Total critical care time today provided was at least 0 minutes. This excludes separately billable procedures. Critical care time (if documented) is secondary to the patient having high probability of clinically significant/life threatening deterioration in the patient's condition which required my urgent intervention. Impression: 1. Fall 2. Right hip pain 3. Right acetabular fracture 4. Inability to ambulate Dispo: Admit to floor This note was generated with TeamVisibility dictation software. It may contain incorrect words, spelling, and punctuation that were not noted in review of the chart prior to signing. Radiography Diagnostic Testing: Clinical Impression(s) from Imaging Studies Pelvis CT 07/04/24 18:16 IMPRESSION: Acute hairline fracture of the posterior column of the right acetabulum extending into the ilium Electronically Signed: Himanshu Gibbs MD at 19:28 EDT Reading Location ID and State: [facility] / [place] Tel , Service support , Discharge Plan Triage Chief Complaint: Lower Extremity Injury ED Provider: Roscoe Ma Dx/Rx/DC Orders Clinical Impression: Acetabulum fracture, right Primary Care Provider: Roma Grajeda Disposition Disposition: Home, Self Care Discharge Date/Time: 07/04/24 21:30
--- NOTE | 2024-07-04 18:16 | CT_ITS ---
STUDY: CT PELVIS WITHOUT CONTRAST REASON FOR EXAM: Female, 88 years old. right hip/pelvic pain r/o fx or dislocation RADIATION DOSAGE (If Supplied By Facility): CTDIvol = ( 20.95 ) mGy, DLP = ( 706.11 ) mGycm TECHNIQUE: Transaxial imaging of the pelvis was performed with oral contrast, and without intravenous administration of contrast material. Individualized dose optimization techniques were used for this CT. COMPARISON: None. FINDINGS: Nonspecific diffuse bladder distention. Uterus not visualized status post hysterectomy Normal visualized small intestine. Diverticular changes of the colon without evidence for acute diverticulitis There is no pelvic fluid. There is no pelvic mass lesion or lymphadenopathy. Postop change status post bilateral laminectomy and posterior fusion at L3-4 L4-5 and L5-S1 Normal visualized pelvic arteries. Normal abdominal wall. Right hip prosthesis is noted in anatomic alignment and position. There is a hairline fracture of the posterior column of the right acetabulum extending into the ilium CT/Pelvis without IV Contrast IMPRESSION: Acute hairline fracture of the posterior column of the right acetabulum extending into the ilium Electronically Signed: Himanshu Gibbs MD at 19:28 EDT ,
[2024-07-04] MEDS: oxyCODONE 5 MG Tablet PO (18:24)
[2024-07-04] MEDS: Ibuprofen 200 MG Tablet 400 MG PO (18:24)
[2024-07-04 19:57] VITALS: BP 142/62; PULSE 86; RESP 16; TEMP 36.9; O2SAT 93
--- NOTE | 2024-07-04 20:19 | ED.RN ---
spoke with Nati nurse at [facility] who will talk to her director to see about level of care for Marli but for now, she can return to [facility]. Will notify Dr. Ma.
--- NOTE | 2024-07-04 20:40 | PCM.HP.STD ---
[facility] - General General Date of Admission: 07/04/24 Date of Service: 07/04/24 Chief Complaint: Fall with Right Hip Pain. [facility] Narrative KAELA ROSALES, is a 88 F with a past medical history of essential hypertension, hypothyroidism, history of rheumatic fever, history of asthma, history of closed TBI, neuropathy, history of bladder cancer; s/p cystostomy, overactive bladder, recurrent UTI's, GERD; with history of PUD and GI bleed, history of hyponatremia, depression with anxiety, presbycusis; with history of ruptured TM, history of hysterectomy with BSO, history of cholecystectomy, osteoporosis, OA; s/p back surgery with subsequent chronic low back pain and s/p Right MARIUM with subsequent chronic Right hip pain on chronic Tramadol 50 mg PO TID and Oxycodone 5 mg q. 6 hours PRN who recently fell on July 01, 2024 when she was trying to get up out of a swivel chair at her assisted living facility causing her to fall onto her knees with subsequent severe Right hip pain with imaging negative for obvious fracture so she was discharged back to her facility who returns to [facility] ER complaining of persistent Right hip pain. 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 There was no associated fever, chills, nausea, vomiting, diarrhea, constipation, chest pain, palpitations or SOB. She denies any new falls. In the ER she underwent a CT scan of the pelvis that revealed a hairline fracture of the posterior column of the Right acetabulum complicated by clinical evidence of generalized weakness with ambulatory dysfunction and an acute exacerbation of her chronic pain syndrome and she was then admitted to the general medical floor under observation status for ongoing care for a stay that is expected to be less than 2 midnights. COUNT INCLUDES THE [facility] Medical History History of recent fall Wears hearing aid in both ears Hearing loss, left Hearing loss, right Anemia Anxiety Depression Hypothyroidism Chronic pain Osteoporosis GI bleed GERD (gastroesophageal reflux disease) Wears hearing aid History of depression Alcohol use Walker as ambulation aid Dietary restriction History of hiatal hernia History of GI bleed Celiac disease Gastric reflux Non-smoker Hoarseness History of stress test History of rheumatic fever Thyroid disease Osteoporosis Hypertension Home Medications ?Medication ?Instructions ?Recorded ?Last Taken ?Type amitriptyline 25 mg tablet 25 mg PO QHS Mood 08/16/20 10/03/23 History azelastine 137 mcg (0.1 %) nasal 1 spray NASAL BID SINUS 08/16/20 10/04/23 History spray fluticasone propionate 50 1 spray NASAL BID allergies 08/16/20 10/04/23 History mcg/actuation nasal spray,suspension tramadol 50 mg tablet 50 mg PO Q8H Pain 11/09/20 10/04/23 History acetaminophen 500 mg tablet 500 mg PO Q6H PRN PRN Pain 1-10 Or 11/22/20 10/04/23 History Fever pantoprazole 40 mg tablet,delayed 40 mg PO BID GERD 11/22/20 10/04/23 History release levothyroxine 75 mcg tablet 75 mcg PO DAILY@0600 Thyroid #30 11/25/20 10/04/23 Rx tabs lisinopril 20 mg tablet 20 mg PO DAILY BP 01/30/21 10/04/23 History amlodipine 5 mg tablet 5 mg PO DAILY 07/04/24 Unknown History gabapentin 300 mg capsule 300 mg PO TID 07/04/24 Unknown History oxycodone 5 mg tablet 5 mg PO Q6H PRN pain 5 days #20 07/04/24 Unknown Rx tabs trazodone 50 mg tablet 50 mg PO QHS 07/04/24 Unknown History Allergy/AdvReac Type Severity Reaction Status Date / Time gluten Allergy Food Verified 07/04/24 16:02 Allergy grass pollen-perennial rye, Allergy sinus Verified 07/04/24 16:02 standar (grass pressure poll-perennial rye,std) house dust AdvReac Other Verified 07/04/24 16:02 lactose AdvReac Food Verified 07/04/24 16:02 Allergy mold AdvReac Other Verified 07/04/24 16:02 Surgical History History of biopsy of bladder History of bilateral salpingo-oophorectomy (BSO) History of cystostomy History of shoulder surgery History of right knee surgery History of back surgery History of hysterectomy History of cholecystectomy Social History household members: spouse housing: assisted living facility current occupational status: retired Smoking Status: Never smoker alcohol intake: never ROS ROS Narrative Review of Systems: Constitutional: Patient denies fever or chills. Eyes: Patient denies changes in vision or discharge from eyes. ENT: Patient admits to chronic presbycusis but she denies runny nose, sore throat or ear pain. Resp: Patient denies SOB or cough. CV: Patient denies chest pain, palpitations or heart racing. GI: Patient denies abdominal pain, nausea, vomiting, diarrhea or constipation. : Patient denies dysuria or hematuria. MSK: Patient admits to severe persistent Right hip pain that is worse than she would expect. Skin: Patient denies rash, abscess, wound or jaundice. Neuro: Patient denies headache, paresthesias or focal neurologic deficits. Psych: Patient denies symptoms of uncontrolled depression or anxiety. Allergy: Patient denies lip swelling, tongue swelling or urticaria. Hematology: Patient denies easy bleeding or easy bruisability. Endocrinology: Patient denies polyuria, polydipsia or polyphagia. 14 point ROS otherwise negative except for positives noted above in HPI. Vital Signs Vital Signs Vital Signs: 07/04/24 16:02 07/04/24 19:57 Temperature 96.3 F L 98.5 F Temperature Source Temporal Oral Pulse Rate 78 86 Respiratory Rate 16 16 Blood Pressure 140/78 H 142/62 H Blood Pressure Mean 98 88 Pulse Ox 97 93 Oxygen Delivery Method Room Air Room Air Weight Weight: 154 lb 1.65 oz Body Mass Index (BMI) 25.6 Physical Exam Const alert, oriented x3, no apparent distress and average body habitus General Appearance: cooperative HEENT normocephalic, head/scalp atraumatic, hearing grossly normal bilaterally and moist oral mucous membranes Eyes PERRL and EOMs intact bilaterally Neck no lymphadenopathy and supple Resp normal respiratory effort, no retractions, no use of accessory muscles and clear to auscultation bilaterally Cardio regular rate and regular rhythm GI normal to inspection, nondistended, normoactive bowel sounds, soft to palpation, non-tender and non-distended Extremity Extremity Narrative: TTP over Right Hip. With 2+ pulses throughout and no signs of compromise. Skin Skin Narrative: Patient has no evidence of rash, abscess or jaundice. Neuro oriented x3, CN's II-XII intact bilaterally, moves all extremities and no focal motor deficits Sensorium / Orientation: awake, alert, oriented to person, oriented to place and oriented to time Speech: speech normal Psych affect normal Results Medical Records Data Attestation: I reviewed the patient's medical records Lab / Micro Data Attestation: I reviewed the patient's lab results. 07/04/24 21:20 07/04/24 21:20 Imaging Radiology Impression Pelvis CT 07/04/24 18:16 IMPRESSION: Acute hairline fracture of the posterior column of the right acetabulum extending into the ilium Electronically Signed: Himanshu Gibbs MD at 19:28 EDT , Assessment & Plan Assessment/Plan (1) Acetabulum fracture, right: QUALIFIERS: Encounter type: sequela Sublocation of acetabulum: posterior column Fracture type: closed Fracture alignment: nondisplaced Qualified Code(s): S32.444S - Nondisplaced fracture of posterior column [ilioischial] of right acetabulum, sequela (2) Contusion of hip: QUALIFIERS: Encounter type: initial encounter Laterality: right Qualified Code(s): S70.01XA - Contusion of right hip, initial encounter (3) Acute pain due to injury: (4) History of hip replacement: QUALIFIERS: Laterality: right Qualified Code(s): Z96.641 - Presence of right artificial hip joint (5) Osteoporosis: QUALIFIERS: Osteoporosis type: age-related Presence of current pathological fracture: without current pathological fracture Qualified Code(s): M81.0 - Age-related osteoporosis without current pathological fracture (6) Generalized weakness: (7) Ambulatory dysfunction: PLAN: Plan 1. CT scan of the pelvis that revealed a hairline fracture of the posterior column of the Right acetabulum after recent Mechanical Fall on July 01, 2024 in the setting of known OA; s/p back surgery with subsequent chronic low back pain and s/p Right MARIUM with subsequent chronic Right hip pain and osteoporosis - Admit to general medical floor under observation status. Continue Tramadol scheduled TID plus prn Oxycodone for severe (level 6-10/10) breakthrough pain. Start vitamin D3 supplement. Finally, we will consult PT/OT and Case Management to see this patient on-rounds in the AM for further recommendations to help with SNF for subacute rehabilitation with help appreciated in advance. 2. Acute exacerbation of chronic pain syndrome with corresponding Generalized Weakness and Ambulatory Dysfunction arising from #1 - Maintain treatment plan outlined above. 3. Essential hypertension - Continue home regimen plus give prn IV Hydralazine for systolic blood pressure > 160 mmHg. 4. Hypothyroidism - Resume Synthroid and check TSH. 5. History of rheumatic fever - Noted. 6. History of asthma - Stable with no evidence of flare. Give nebulizers prn. 7. History of closed TBI - Noted. 8. Neuropathy - Gabapentin to be continued as before. 9. History of bladder cancer; s/p cystostomy with overactive bladder and recurrent UTI's - Noted. Check UA this admission. 10. GERD; with history of PUD and GI bleed - Stable with no evidence of bleeding at this time. Resume PPI. 11. History of hyponatremia - Noted. 12. Depression with anxiety - Continue home medications as previous. 13. Presbycusis; with history of ruptured TM - Noted. 14. History of hysterectomy with BSO - Noted. 15. History of cholecystectomy - Noted. 16. DVT prophylaxis - Lovenox 30 mg sq daily plus SCD's. Total time: Approximately 45 minutes. Charges/Coding Visit Charges OBSV E&M: 45195 Observ/hosp same date L1
[2024-07-04 21:06] VITALS: BP 160/73; PULSE 80; RESP 16; TEMP 37.1; O2SAT 98
[2024-07-04 21:33] LABS: Hematocrit 32.5 % (37-47); Hemoglobin 10.5 g/dL (12.0-15.0); Mean Corp Hgb Conc 32.3 g/dL (32-36); Mean Corpuscular Hgb 29.7 pg (27.0-32.0); Mean Corpuscular Volume 91.8 fL (81-99); Mean Platelet Vol. 8.6 fl (6.2-12.0); Platelet Count 293 K/mm3 (150-450); RBC Distribution Width CV 13.9 % (11.6-14.6); RBC Distribution Width SD 47.1 fl (35.1-43.9); Red Blood Count 3.54 M/mm3 (4.2-5.4); White Blood Count 6.2 K/mm3 (4.4-11.0)
--- NOTE | 2024-07-04 21:51 | ED.RN ---
REPORT CALLED TO JEREMI MORE LPN W/ PT. UPDATE.
[2024-07-04 21:56] LABS: Anion Gap 6 (5-15); BUN 18 mg/dL (7-18); BUN/Creat Ratio 24.1 RATIO (10-20); Calcium,Total 9.3 mg/dL (8.5-10.1); Chloride 103 mmol/L (98-107); Creatinine, Serum 0.75 mg/dL (0.55-1.02); EST Glomerular Filtration Rate 78 mL/min (>60); Est Glom Filt Rate - Afr Amer 94 mL/min (>60); Estimated Creatinine Clearance 48.62 ml/min; Glucose 100 mg/dL (74-106); Potassium 4.2 mmol/L (3.5-5.1); Sodium Level 135 mmol/L (136-145)
[2024-07-04 21:59] VITALS: BMI 30.7
[2024-07-04 22:25] VITALS: BP 132/58; PULSE 77; RESP 16; TEMP 36.5; O2SAT 95
[2024-07-04] MEDS: traMADol 50 MG Tablet PO (22:40)
[2024-07-04] MEDS: traZODone 50 MG Tablet PO (22:42)
[2024-07-04] MEDS: MELATONIN 3 MG TABLET PO (22:43)
[2024-07-04] MEDS: Azelastine HCl NASAL.SRY 1 SPRAY NASAL (22:43)
[2024-07-04] MEDS: Gabapentin 300 MG Capsule PO (22:47)
[2024-07-04] MEDS: Amitriptyline 25 MG Tablet PO (22:47)
[2024-07-04] MEDS: Pantoprazole Sodium 40 MG Tablet PO (22:49)
[2024-07-04] MEDS: Fluticasone 0.05% 1 SPRAY NASAL.SRY NASAL (22:52)
[2024-07-05 05:40] VITALS: BP 104/50; PULSE 77; RESP 16; TEMP 36.6; O2SAT 93
[2024-07-05] MEDS: 0.9% Saline Lock 10 ML Syringe IV ×2 (05:41→16:56)
[2024-07-05] MEDS: traMADol 50 MG Tablet PO ×3 (05:42→21:34)
[2024-07-05] MEDS: Levothyroxine 75 MCG Tablet PO (05:43)
[2024-07-05 06:53] LABS: Mucous, Urine 0 SEEN /hpf (<or=2+); Red Blood Cells-Urine 0 SEEN /hpf (0-5); Squamous Epithelial Cells - UA 0 SEEN /hpf (5-10)
[2024-07-05] MEDS: Enoxaparin 40 MG/0.4 ML Syringe SC (06:54)
[2024-07-05 06:56] LABS: Color, Urine Yellow (Yellow); Glucose, Dipstick Normal (Normal); Ketone-Dipstick Negative (Negative); Leukocyte Esterase-Dipstick 500 /ul (Negative); Nitrite-Dipstick Positive (Negative); Occult Blood-Urine Negative /ul (Negative); Protein-Dipstick 15 mg/dl (Negative); Urine Bilirubin Dipstick Negative (Negative); Urine Clarity Sl. Cloudy (Clear); Urine Urobilinogen Normal (Normal)
[2024-07-05 07:10] LABS: Bacteria 3+ /hpf (None Seen); White Blood Cells 0-5 SEEN /hpf (0-5)
[2024-07-05] MEDS: Gabapentin 300 MG Capsule PO ×3 (09:22→16:54)
[2024-07-05] MEDS: Pantoprazole Sodium 40 MG Tablet PO ×2 (09:22→21:34)
[2024-07-05] MEDS: Azelastine HCl NASAL.SRY 1 SPRAY NASAL ×2 (09:23→21:34)
[2024-07-05] MEDS: Fluticasone 0.05% 1 SPRAY NASAL.SRY NASAL ×2 (09:24→21:34)
[2024-07-05] MEDS: Menthol/Lanolin/Calamine/Znox 113 GM Tube 1 APPLIC TOPICAL ×2 (09:26→21:36)
[2024-07-05] MEDS: Cholecalciferol (Vit D3) 125 MCG CAPSULE (5,000 UNITS) PO (09:27)
[2024-07-05 09:34] VITALS: BP 112/61; PULSE 68; RESP 16; TEMP 36.6; O2SAT 98
[2024-07-05] MEDS: Acetaminophen 500 MG Tablet PO (11:46)
--- NOTE | 2024-07-05 13:59 | CASEMGMT ---
Social Work SW?to room to meet with patient for initial transition planning/care coordination?assessment.?SW?introduced self and role at [facility].? Pt voices understanding and consents to?assessment.? Pt is A/Ox4 and answers all questions appropriately.?? Care providers, pharmacy, and demographics verified. PCP: Roma Grajeda Specialists: Amina, frank Barajas, urology Preferred Pharmacy: [facility] Insurance: MMO MCR Prescription Benefit:? yes LNOK: Richard Rosales and son and dil Go and Gabi Rosales Living Arrangements: pt lives with her spouse in a one story room at [facility]. Pt is independent with ADLs. Meals are provided by [facility] Transportation:? [facility] provides transportation to appointments DME: ? rollator, shower chair, grab bars, RTS, wheelchair HHC/ SNF: TCU PLAN: Pt does not feel she can return to [facility] at this time and is requesting short term SNF for rehab prior to return to [facility]. A list of SNF providers including quality and resource use data and consistent with the patient?s preferred geographic region, medical needs, and insurance network were provided from the [employer] Guide. Pt's preferred provider is [facility] TCU. Referral made. SW requested pt look through list for second choice in the event TCU cannot accept. ELIZABETH Montoya
[2024-07-05] MEDS: Ciprofloxacin 250 MG Tablet PO ×2 (14:27→21:35)
[2024-07-05 14:37] VITALS: BP 124/57; PULSE 74; RESP 16; TEMP 36.7; O2SAT 98
--- NOTE | 2024-07-05 16:21 | PN.HOSP_ITS ---
Reason for Visit Reason for Visit: Diagnoses Acute pain due to trauma (07/04/24) Age-related osteoporosis without current pathological fracture (07/04/24) Difficulty in walking, not elsewhere classified (07/04/24) Weakness (07/04/24) Unspecified fracture of right acetabulum, initial encounter for closed fracture (07/04/24) Nondisplaced fracture of posterior column [ilioischial] of right acetabulum, sequela (07/04/24) Contusion of right hip, initial encounter (07/04/24) Presence of right artificial hip joint (07/04/24) Subjective Subjective Patient was seen and examined today, psychosocial rehabilitation counselor is arranging for the patient to go to an extended care facility for short-term rehab services. Objective Data Objective Data Vital Signs: Vital Signs Temp Pulse Resp BP Pulse Ox O2 Del Method 98.1 F 74 16 124/57 H 98 Room Air 07/05/24 14:37 07/05/24 14:37 07/05/24 14:37 07/05/24 14:37 07/05/24 14:37 07/05/24 14:37 Oxygen Delivery Method Room Air Weight: 66.587 kg Body Mass Index (BMI) 30.7 Intake & Output: Intake and Output for Last 24 Hours 07/03/24 07/04/24 07/05/24 23:59 23:59 23:59 Intake Total 100 / 100 560 / 560 Output Total 400 / 400 Balance 100 / 100 160 / 160 Lab / Micro Data 07/04/24 21:20 07/04/24 21:20 Labs: Laboratory Results - last 24 hr 07/04/24 21:20: WBC 6.2, RBC 3.54 L, Hgb 10.5 L, Hct 32.5 L, MCV 91.8, MCH 29.7, MCHC 32.3, RDW Std Deviation 47.1 H, RDW Coeff of Laury 13.9, Plt Count 293, MPV 8.6, Sodium 135 L, Potassium 4.2, Chloride 103, Carbon Dioxide 26.0, Anion Gap 6, BUN 18, Creatinine 0.75, Estim Creat Clear Calc 48.62, Est GFR (MDRD) Af Amer 94, Est GFR (MDRD) Non-Af 78, BUN/Creatinine Ratio 24.1 H, Glucose 100, Calcium 9.3 07/05/24 05:33: Urine Color Yellow, Urine Clarity Sl. Cloudy, Urine pH 7.0, Ur Specific Leggett 1.010, Urine Protein 15 H, Urine Glucose (UA) Normal, Urine Ketones Negative, Urine Occult Blood Negative, Urine Nitrite Positive H, Urine Bilirubin Negative, Urine Urobilinogen Normal, Ur Leukocyte Esterase 500 H, Urine RBC 0 SEEN, Urine WBC 0-5 SEEN, Ur Squamous Epith Cells 0 SEEN, Urine Bacteria 3+, Urine Mucus 0 SEEN Radiography Diagnostic Testing: Radiology Impression Pelvis CT 07/04/24 18:16 IMPRESSION: Acute hairline fracture of the posterior column of the right acetabulum extending into the ilium Electronically Signed: Himanshu Gibbs MD at 19:28 EDT , Physical Exam Const alert, oriented x3, no apparent distress and healthy appearing Constitutional Narrative: Patient is hard of hearing General Appearance: cooperative, well kempt and well developed Orientation / Consciousness: awake, oriented to person, oriented to place and oriented to time HEENT normocephalic and moist oral mucous membranes Eyes PERRL, EOMs intact bilaterally and conjunctivae normal Neck supple, no JVD and thyroid normal General: trachea midline Resp normal respiratory effort, no retractions, no use of accessory muscles and clear to auscultation bilaterally Auscultation: Negative for rales, rhonchi or wheezes Cardio regular rate, regular rhythm, S1 normal heart sound, S2 normal heart sound, no murmurs, no rub and no gallops GI normal to inspection, nondistended, normoactive bowel sounds, soft to palpation, non-tender and non-distended Extremity no clubbing, cyanosis or edema Skin no rashes or lesions noted General Skin Exam: no breakdown Neuro oriented x3, CN's II-XII intact bilaterally, no focal motor deficits and no sensory deficits noted Sensorium / Orientation: awake and alert Speech: speech normal Psych affect normal Assessment & Plan Assessment/Plan (1) Acetabulum fracture, right: QUALIFIERS: Encounter type: sequela Sublocation of acetabulum: p osterior column Fracture type: closed Fracture alignment: nondisplaced Q ualified Code(s): S32.444S - Nondisplaced fracture of posterior column [ilioischial] of right acetabulum, sequela PLAN: Plan 1. Acute right acetabular fracture secondary to osteoporosis extending into the ilium-not requiring surgical intervention, continue analgesics, PT and OT are seeing patient, patient is toe-touch weightbearing with avoidance of deep flexion or internal rotation and the use of walker #2 acute debility secondary to #1-patient will need short-term placement in fdc facility, she currently lives in assisted living #3 essential hypertension-continue patient's home medications, these will be adjusted as needed #4 hypothyroidism-patient is on Synthroid #5 acute cystitis-present on admission, patient had an outpatient UA which resulted positive for Pseudomonas, Morganella, and Proteus-these are ESBL organisms, I have placed her on Cipro 250 mg twice daily starting today Total clinical time spent by myself addressing patient's medical issues, reviewing all of her data, and collaborating with patient's care team: 35 minutes Charges/Coding Visit Charges Inpatient E&M: 38010 Subs Hosp L2
--- NOTE | 2024-07-05 16:24 | NURSING ---
Daughter told Physical therapy who told this RN that pt was supposed to be Toe Touch Wt bearing. P.T and this RN was unaware. This RN just spoke with Dr. Lucas to clarify. Dr. Lucas does want pt to be Toe Touch Wt Bearing on her RLE. Will verbally inform Physical Therapy.
[2024-07-05 21:31] VITALS: BP 137/72; PULSE 74; RESP 17; TEMP 36.6; O2SAT 97
[2024-07-05] MEDS: MELATONIN 3 MG TABLET PO (21:35)
[2024-07-05] MEDS: traZODone 50 MG Tablet PO (21:35)
[2024-07-05] MEDS: Amitriptyline 25 MG Tablet PO (21:38)
[2024-07-06 04:08] VITALS: BP 124/58; PULSE 73; RESP 17; TEMP 36.2; O2SAT 97
[2024-07-06 04:09] VITALS: BP 124/58; PULSE 73; RESP 17; TEMP 36.2; O2SAT 97
[2024-07-06] MEDS: Levothyroxine 75 MCG Tablet PO (06:21)
[2024-07-06] MEDS: Enoxaparin 40 MG/0.4 ML Syringe SC (06:22)
[2024-07-06] MEDS: traMADol 50 MG Tablet PO ×3 (06:22→21:11)
[2024-07-06] MEDS: Gabapentin 300 MG Capsule PO ×3 (08:40→17:32)
[2024-07-06] MEDS: Fluticasone 0.05% 1 SPRAY NASAL.SRY NASAL ×2 (08:40→21:03)
[2024-07-06] MEDS: Azelastine HCl NASAL.SRY 1 SPRAY NASAL ×2 (08:40→21:02)
[2024-07-06] MEDS: Menthol/Lanolin/Calamine/Znox 113 GM Tube 1 APPLIC TOPICAL ×2 (08:41→21:05)
[2024-07-06] MEDS: Pantoprazole Sodium 40 MG Tablet PO ×2 (08:42→21:04)
[2024-07-06] MEDS: Ciprofloxacin 250 MG Tablet PO ×2 (08:42→21:03)
[2024-07-06] MEDS: amLODIPine 5 MG Tablet PO (08:43)
[2024-07-06] MEDS: Cholecalciferol (Vit D3) 125 MCG CAPSULE (5,000 UNITS) PO (08:43)
[2024-07-06] MEDS: Lisinopril 20 MG Tablet PO (08:43)
[2024-07-06 08:51] VITALS: BP 135/66; PULSE 78; RESP 18; TEMP 36.7; O2SAT 97
[2024-07-06] MEDS: Acetaminophen 500 MG Tablet PO (11:55)
--- NOTE | 2024-07-06 12:16 | PN.HOSP_ITS ---
Reason for Visit Reason for Visit: Diagnoses Acute pain due to trauma (07/04/24) Age-related osteoporosis without current pathological fracture (07/04/24) Difficulty in walking, not elsewhere classified (07/04/24) Weakness (07/04/24) Unspecified fracture of right acetabulum, initial encounter for closed fracture (07/04/24) Nondisplaced fracture of posterior column [ilioischial] of right acetabulum, sequela (07/04/24) Contusion of right hip, initial encounter (07/04/24) Presence of right artificial hip joint (07/04/24) Subjective Subjective Patient was seen and examined today, she requested as needed medication for constipation. Objective Data Objective Data Vital Signs: Vital Signs Temp Pulse Resp BP Pulse Ox O2 Del Method 98.1 F 78 18 135/66 H 97 Room Air 07/06/24 08:51 07/06/24 08:51 07/06/24 08:51 07/06/24 08:51 07/06/24 08:51 07/06/24 08:51 Oxygen Delivery Method Room Air Weight: 66.587 kg Body Mass Index (BMI) 30.7 Intake & Output: Intake and Output for Last 24 Hours 07/04/24 07/05/24 07/06/24 23:59 23:59 23:59 Intake Total 100 / 100 800 / 800 360 / 360 Output Total 1550 / 1550 1100 / 1100 Balance 100 / 100 -750 / -750 -740 / -740 Lab / Micro Data 07/04/24 21:20 07/04/24 21:20 Physical Exam Narrative alert, oriented x3, no apparent distress and healthy appearing Constitutional Narrative: Patient is hard of hearing General Appearance: cooperative, well kempt and well developed Orientation / Consciousness: awake, oriented to person, oriented to place and oriented to time HEENT normocephalic and moist oral mucous membranes Eyes PERRL, EOMs intact bilaterally and conjunctivae normal Neck supple, no JVD and thyroid normal General: trachea midline Resp normal respiratory effort, no retractions, no use of accessory muscles and clear to auscultation bilaterally Auscultation: Negative for rales, rhonchi or wheezes Cardio regular rate, regular rhythm, S1 normal heart sound, S2 normal heart sound, no murmurs, no rub and no gallops GI normal to inspection, nondistended, normoactive bowel sounds, soft to palpation, non-tender and non-distended Extremity no clubbing, cyanosis or edema Skin no rashes or lesions noted General Skin Exam: no breakdown Neuro oriented x3, CN's II-XII intact bilaterally, no focal motor deficits and no sensory deficits noted Sensorium / Orientation: awake and alert Speech: speech normal Psych affect normal Assessment & Plan Assessment/Plan (1) Acetabulum fracture, right: QUALIFIERS: Encounter type: sequela Sublocation of acetabulum: p osterior column Fracture type: closed Fracture alignment: nondisplaced Q ualified Code(s): S32.444S - Nondisplaced fracture of posterior column [ilioischial] of right acetabulum, sequela PLAN: Plan 1. Acute right acetabular fracture secondary to osteoporosis extending into the ilium-not requiring surgical intervention, continue analgesics, PT and OT are seeing patient, patient is toe-touch weightbearing with avoidance of deep flexion or internal rotation and the use of walker #2 acute debility secondary to #1-patient will need short-term placement in fci facility, she currently lives in assisted living, approval is pending from her insurance company #3 essential hypertension-continue patient's home medications, these will be adjusted as needed #4 hypothyroidism-patient is on Synthroid #5 acute cystitis-present on admission, patient had an outpatient UA which resulted positive for Pseudomonas, Morganella, and Proteus-these are ESBL organisms, patient remains on Cipro Total clinical time spent by myself addressing patient's medical issues, reviewing all of her data, and collaborating with patient's care team: 25 minutes Charges/Coding Visit Charges Inpatient E&M: 09019 Subs Hosp L1
[2024-07-06] MEDS: Polyethylene Glycol 3350 17 GM PACKET PO (14:27)
[2024-07-06 14:29] VITALS: BP 126/67; PULSE 95; RESP 18; TEMP 36.7; O2SAT 94
[2024-07-06 20:30] VITALS: BP 125/64; PULSE 90; RESP 16; TEMP 36.9; O2SAT 96
[2024-07-06] MEDS: MELATONIN 3 MG TABLET PO (21:03)
[2024-07-06] MEDS: Amitriptyline 25 MG Tablet PO (21:04)
[2024-07-06] MEDS: traZODone 50 MG Tablet PO (21:04)
[2024-07-06 23:00] VITALS: PULSE 90; RESP 16; O2SAT 96
[2024-07-07] MEDS: oxyCODONE 5 MG Tablet PO (01:21)
[2024-07-07] MEDS: Acetaminophen 500 MG Tablet PO ×2 (01:21→12:45)
[2024-07-07 02:22] VITALS: BP 118/62; PULSE 86; RESP 16; TEMP 36.6; O2SAT 96
[2024-07-07] MEDS: Levothyroxine 75 MCG Tablet PO (06:55)
[2024-07-07] MEDS: Enoxaparin 40 MG/0.4 ML Syringe SC (06:55)
[2024-07-07] MEDS: traMADol 50 MG Tablet PO ×2 (07:01→13:53)
[2024-07-07 08:45] VITALS: BP 130/65; PULSE 73; RESP 18; TEMP 36.3; O2SAT 94
[2024-07-07] MEDS: Polyethylene Glycol 3350 17 GM PACKET PO (08:52)
[2024-07-07] MEDS: Lisinopril 20 MG Tablet PO (08:53)
[2024-07-07] MEDS: Ciprofloxacin 250 MG Tablet PO (08:53)
[2024-07-07] MEDS: amLODIPine 5 MG Tablet PO (08:53)
[2024-07-07] MEDS: Gabapentin 300 MG Capsule PO ×3 (08:53→17:31)
[2024-07-07] MEDS: Pantoprazole Sodium 40 MG Tablet PO (08:53)
[2024-07-07] MEDS: Fluticasone 0.05% 1 SPRAY NASAL.SRY NASAL ×2 (08:54→18:08)
[2024-07-07] MEDS: Cholecalciferol (Vit D3) 125 MCG CAPSULE (5,000 UNITS) PO (08:54)
[2024-07-07] MEDS: Menthol/Lanolin/Calamine/Znox 113 GM Tube 1 APPLIC TOPICAL (08:54)
[2024-07-07] MEDS: Azelastine HCl NASAL.SRY 1 SPRAY NASAL ×2 (08:54→18:08)
--- NOTE | 2024-07-07 09:57 | CASEMGMT ---
Met with patient to complete ORTIZ form. ORTIZ form explained to patient who voiced understanding and signed form. Original form placed in pt?s chart and copy provided to patient. Charmaine Mcqueen, Discharge Planning Asst
--- NOTE | 2024-07-07 11:52 | CASEMGMT ---
Addendum entered by Charmaine Mcqueen 07/07/24 13:56: Per [facility], pt can return to [place]. Charmaine Mcqueen DC Planning Asst. Addendum entered by Charmaine Mcqeuen 07/07/24 11:53: Fax confirmation rec'd. Charmaine Mcqueen DC Planning Asst. Original Note: Discharge Planning Updates faxed to [facility] @ [place]. Charmaine Mcqueen DC Planning Asst.
--- NOTE | 2024-07-07 13:57 | CASEMGMT ---
Discharge Planning Referral sent to [facility] and [facility]. Charmaine Mcqueen DC Planning Asst.
[2024-07-07 14:40] VITALS: BP 109/53; PULSE 72; RESP 18; TEMP 36.7; O2SAT 94
--- NOTE | 2024-07-07 15:39 | CASEMGMT ---
Addendum entered by Nanda Nathan 07/07/24 16:09: Ambika at [facility] is aware that pt prefers a male therapist. Addendum entered by Nanda Nathan 07/07/24 16:06: Received tc back from Ambika at [facility], they will see pt on Sunday. Pt aware of acceptance. Original Note: ALLI updated JAYDEN MENDOZA that [facility] can accept pt back. JAYDEN MENDOZA into pt room to discuss dc planning. Pt states she wants to go to [facility] where she knows everyone. Pt states she had HHC in the past from a female. Asked pt if the agency was [facility] and she states she feels it is. Pt does not want the same therapist. Asked pt if she wanted the same agency, pt asked if the same therapists from [facility] could come. Made pt aware that [facility] has a [facility] that they could see her. Pt would like [facility], she denies need for a list of other options. TC to Ambika at [facility], referral made. Will await decision to accept.
--- NOTE | 2024-07-07 16:47 | CASEMGMT ---
Social Work- ALLI met with pt to discuss return to [place]. ALLI called [facility]- pt d[facility]i-l who reports that she can go back, but she would like pt/ot there. ALLI advised RNCM. Gabi reports that she will transport pt. ELIZABETH Resendiz
--- NOTE | 2024-07-07 16:49 | CASEMGMT ---
Social Work- SW placed green sheet on chart. ELIZABETH Resendiz
--- NOTE | 2024-07-07 17:31 | DCINST_ITS ---
Discharge Instructions Diet Discharge Diet: No restrictions Activity Weight Bearing Status: Toe touch weight bearing (Right leg, avoid deep flexion or internal rotation, use a walker) Follow Up Care Test Results: Test results from this visit will be discussed in further detail at your follow- up appointment, if applicable. Discharge Plan Admission Admit Date/Time: 07/04/24 21:20 Primary Reason for Your Visit: Right acetabular fracture-nonoperable Attending Provider: Reinier Rojas Primary Care Provider: Roma Grajeda Consulting Providers: Joni Torres Instructions Forms: [facility] Referral Patient Instructions: ED Pelvic Fracture Discharge Orders/Prescriptions Prescriptions: New ciprofloxacin HCl 250 mg Tablet 250 mg PO BID Qty: 8 0RF cholecalciferol (vitamin D3) 125 mcg (5,000 unit) Capsule 125 mcg PO DAILY Qty: 0 0RF hydrocodone-acetaminophen 5-325 mg tablet 1 tab PO Q6H PRN (Reason: pain) 5 Days Qty: 20 0RF Continued amitriptyline 25 MG tablet 25 mg PO QHS azelastine 1 SPRAY aerosol,spray 1 spray NASAL BID fluticasone propionate 1 SPRAY spray,suspension 1 spray NASAL BID tramadol 50 MG tablet 50 mg PO Q8H acetaminophen 500 MG tablet 500 mg PO Q6H PRN PRN (Reason: Pain 1-10 Or Fever) pantoprazole 40 MG tablet 40 mg PO BID levothyroxine 75 MCG tablet 75 mcg PO DAILY@0600 Qty: 30 0RF lisinopril 20 MG tablet 20 mg PO DAILY trazodone 50 mg tablet 50 mg PO QHS amlodipine 5 mg tablet 5 mg PO DAILY gabapentin 300 mg capsule 300 mg PO TID Discontinued cephalexin 500 mg capsule 500 mg PO Q8 Patient Comments: TAKES FOR PROPHYLACTIC UTI MANAGEMENT cephalexin 250 mg capsule 250 mg PO DAILY Referrals / Follow Up: Roma Grajeda DO [Primary Care Provider] - Patricio Lucas DO [Med Staff - Active Staff] - See Referral Note (Call the office to make an appointment for 2 to 3 weeks) Disposition Disposition (needs filled in before D/C Order can be placed): Assisted Living
[2024-07-07] MEDS: Docusate Sodium 100 MG Capsule 200 MG PO (17:32)
--- NOTE | 2024-07-07 17:51 | PCM.DC.SUM ---
Providers Date of Admission: 07/04/24 Date of Discharge: 07/07/24 Primary Care Physician: Dr. Roma Grajeda DO Reason For Visit: ACETABULAR FRACTURE AFTER RECENT FALL Diagnosis Discharge Diagnosis (1) Acetabulum fracture, right: Status: Acute Code(s): S32.401A - Unspecified fracture of right acetabulum, initial encounter for closed fracture Qualifiers: Encounter type: sequela Fracture alignment: nondisplaced Fracture type: closed Sublocation of acetabulum: posterior column Qualified Code(s): S32.444S - Nondisplaced fracture of posterior column [ilioischial] of right acetabulum, sequela Plan 1. Acute right acetabular fracture secondary to osteoporosis extending into the ilium-not requiring surgical intervention, continue analgesics, PT and OT are seeing patient, patient is toe-touch weightbearing with avoidance of deep flexion or internal rotation and the use of walker #2 acute debility secondary to #1-patient will [facility], she currently lives in assisted living, approval is pending from her insurance company #3 essential hypertension-continue patient's home medications, these will be adjusted as needed #4 hypothyroidism-patient is on Synthroid #5 acute cystitis-present on admission, patient had an outpatient UA which resulted positive for Pseudomonas, Morganella, and Proteus-these are ESBL organisms, patient remains on Cipro Total clinical time spent by myself addressing patient's medical issues, reviewing all of her data, and collaborating with patient's care team: 25 minutes Medications at Discharge Home Medications amitriptyline 25 mg tablet 25 mg PO QHS Mood 08/16/20 azelastine 137 mcg (0.1 %) nasal spray 1 spray NASAL BID SINUS 08/16/20 fluticasone propionate 50 mcg/actuation nasal spray,suspension 1 spray NASAL BID allergies 08/16/20 tramadol 50 mg tablet 50 mg PO Q8H Pain 11/09/20 acetaminophen 500 mg tablet 500 mg PO Q6H PRN PRN Pain 1-10 Or Fever 11/22/20 pantoprazole 40 mg tablet,delayed release 40 mg PO BID GERD 11/22/20 levothyroxine 75 mcg tablet 75 mcg PO DAILY@0600 Thyroid #30 tabs 11/25/20 lisinopril 20 mg tablet 20 mg PO DAILY BP 01/30/21 amlodipine 5 mg tablet 5 mg PO DAILY 07/04/24 gabapentin 300 mg capsule 300 mg PO TID 07/04/24 trazodone 50 mg tablet 50 mg PO QHS 07/04/24 cholecalciferol (vitamin D3) 125 mcg (5,000 unit) capsule 125 mcg PO DAILY #0 caps 07/07/24 ciprofloxacin HCl 250 mg tablet 250 mg PO BID #8 tabs 07/07/24 hydrocodone-acetaminophen 5-325mg 5mg-325mg 1 tab PO Q6H PRN pain 5 days #20 tabs 07/07/24 Hospital Course Operations None Procedures None Summary of Care Provided Minutes Spent on Discharge: 31 Hospital Course: This 88-year-old white female was seen in the emergency room at [facility] after she sustained a fall a few days before at [facility] living facility where she resided. She complained of right sided pelvic pain and right hip pain, she has been unable to ambulate since the fall. Workup in the emergency room included x-rays which showed a nondisplaced acetabular fracture extending into the ilium on the right, orthopedic surgery was contacted and felt that the patient did not require surgical intervention. Patient was placed into observation status on [facility] 3, she was seen by PT and OT, she ultimately decided to go back to [facility] living at [place] with physical therapy. On 07/07/2024, patient was seen and examined: On examination she appeared in good health and spirits, she does not appear to be in any distress. Vital signs as documented. Skin warm and dry and without overt rashes. Neck without JVD, thyroid appears normal, trachea is midline, neck is supple. Lungs clear, normal air movement was noted. Heart exam notable for regular rhythm, normal sounds and absence of murmurs, rubs or gallops. Abdomen unremarkable and without evidence of organomegaly, masses, or abdominal aortic enlargement, bowel sounds are present in all 4 quadrants, no abdominal tenderness was noted. Extremities nonedematous, no cyanosis was noted, no clubbing was noted. Neuro: Cranial nerves II through XII are grossly intact, no focal motor deficits were noted, sensation to light touch and pinprick is intact, motor exam 5/5 throughout. Psych: Patient is alert and oriented x3, she does not appear anxious or depressed, she does not appear agitated. Patient was discharged to assisted living on 07/07/2024 in stable condition Weight / BMI Weight Weight: 66.587 kg Body Mass Index (BMI) 30.7 ABG / Lab / Microbiology Data 07/04/24 21:20 07/04/24 21:20 D/C Instructions Discharge Diet: No restrictions Weight Bearing Status: Toe touch weight bearing (Right leg, avoid deep flexion or internal rotation, use a walker) Meaningful Use Info Meaningful Use Meaningful Use Diagnoses (Choose all that apply): None applicable Ischemic Stroke Statin Dosing Therapy Reference: STATIN DOSE THERAPY REFERENCE: * Patients > 75 years receive moderate or high dose statin therapy. * Patients 75 years or YOUNGER should receive HIGH intensity statin dose unless contraindicated. You will be required to document reason for non-treatment if statin daily dose does not meet guidelines. HIGH DOSE STATIN THERAPY DAILY Atorvastatin > than or = to 40 mg Rosuvastatin > than or = to 20 mg Amlodipine + Atorvastatin > than or = to 2.5/40 mg Ezetimibe + Simvastatin 10/80 mg Simvastatin 80mg Discharge Plan Admission Admit Date/Time: 07/04/24 21:20 Primary Reason for Your Visit: Right acetabular fracture-nonoperable Attending Provider: Reinier Rojas Primary Care Provider: Roma Grajeda Consulting Providers: Joni Torres Instructions Forms: [facility] Referral Patient Instructions: ED Pelvic Fracture Discharge Orders/Prescriptions Prescriptions: New ciprofloxacin HCl 250 mg Tablet 250 mg PO BID Qty: 8 0RF cholecalciferol (vitamin D3) 125 mcg (5,000 unit) Capsule 125 mcg PO DAILY Qty: 0 0RF hydrocodone-acetaminophen 5-325 mg tablet 1 tab PO Q6H PRN (Reason: pain) 5 Days Qty: 20 0RF Continued amitriptyline 25 MG tablet 25 mg PO QHS azelastine 1 SPRAY aerosol,spray 1 spray NASAL BID fluticasone propionate 1 SPRAY spray,suspension 1 spray NASAL BID tramadol 50 MG tablet 50 mg PO Q8H acetaminophen 500 MG tablet 500 mg PO Q6H PRN PRN (Reason: Pain 1-10 Or Fever) pantoprazole 40 MG tablet 40 mg PO BID levothyroxine 75 MCG tablet 75 mcg PO DAILY@0600 Qty: 30 0RF lisinopril 20 MG tablet 20 mg PO DAILY trazodone 50 mg tablet 50 mg PO QHS amlodipine 5 mg tablet 5 mg PO DAILY gabapentin 300 mg capsule 300 mg PO TID Discontinued cephalexin 500 mg capsule 500 mg PO Q8 Patient Comments: TAKES FOR PROPHYLACTIC UTI MANAGEMENT cephalexin 250 mg capsule 250 mg PO DAILY Referrals / Follow Up: Roma Grajeda DO [Primary Care Provider] - Patricio Lucas DO [Med Staff - Active Staff] - See Referral Note (Call the office to make an appointment for 2 to 3 weeks) Disposition Disposition (needs filled in before D/C Order can be placed): Assisted Living Charges/Coding Visit Charges Inpatient E&M: 94138 Disch Hosp >30min
--- NOTE | 2024-07-08 12:12 | CASEMGMT ---
Discharge Planning Call rec'd from [facility]. Patient wishes to go to a snf. Explained process and gave list of snf's in network. Charmaine Mcqueen DC Planning Asst.
== END 2024-07-07 18:40 | disposition home health service (06) ==
LOC: ED 21:07 → MS3 21:27
PROVIDERS: Admitting Provider Internal Medicine; Emergency Provider Emergency Medicine; PCP Family Medicine; Visit Provider Internal Medicine
DX: M80.051A Age-related osteoporosis with current pathological fracture, right femur, initial encounter for fracture (principal); G62.9 Polyneuropathy, unspecified; E03.9 Hypothyroidism, unspecified; Z79.890 Hormone replacement therapy; G89.4 Chronic pain syndrome; K21.9 Gastro-esophageal reflux disease without esophagitis; M54.50 Low back pain, unspecified; F41.8 Other specified anxiety disorders; W19.XXXA Unspecified fall, initial encounter; I10 Essential (primary) hypertension; Z79.899 Other long term (current) drug therapy; J45.909 Unspecified asthma, uncomplicated; Z87.820 Personal history of traumatic brain injury; H91.10 Presbycusis, unspecified ear; N30.00 Acute cystitis without hematuria; B96.5 Pseudomonas (aeruginosa) (mallei) (pseudomallei) as the cause of diseases classified elsewhere; B96.4 Proteus (mirabilis) (morganii) as the cause of diseases classified elsewhere; Z16.12 Extended spectrum beta lactamase (ESBL) resistance
CPT/HCPCS: 72192; 80048; 81001; 85027; 96372; 97162; 97166; 97530; 97535; 97802; 99221; 99285; A4216; G0378

== ENCOUNTER 2024-11-22 19:13 | Inpatient (IN) | payer MEDICARE, SELFPAY ==
[2024-11-22 19:15] VITALS: BP 135/59; PULSE 76; RESP 18; TEMP 36.9; O2SAT 95
--- NOTE | 2024-11-22 19:37 | CT_ITS ---
EXAM: BRAIN/HEAD WITHOUT CONTRAST CLINICAL HISTORY: Head injury COMPARISON: 09/28/2023 TECHNIQUE: Noncontrast images of the head with multiplanar reconstructions. Dose reduction techniques were used including intermediate exposure control (AEC),iterative reconstruction technique, and/or mA and/or KV dose adjustments based on patient's size. FINDINGS: No acute intracranial hemorrhage. No loss of alas-white differentiation.There are moderate confluent areas of deep white matter hypoattenuation, which has slightly progressed since the previous study.The ventricles and sulci are prominent. The osseous structures are unremarkable. No soft tissue abnormality identified. The paranasal sinuses and mastoid air cells are clear. CT/Brain/Head without Contrast IMPRESSION: 1. No acute intracranial abnormality. 2. Ventriculomegaly appears similar to the previous exam, may be due to age-rel ated atrophy. Normal pressure hydrocephalus can be considered in the appropriate clinical scenario. 3. 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 Reading Location: [facility]
--- NOTE | 2024-11-22 19:38 | EKG12_ITS ---
Test Reason : FALL Blood Pressure : */* mmHG Vent. Rate : 78 BPM Atrial Rate : 78 BPM P-R Int : 158 ms QRS Dur : 82 ms QT Int : 374 ms P-R-T Axes : 67 -26 53 degrees QTcB Int : 426 ms Sinus rhythm with Premature atrial complexes Cannot rule out Anterior infarct , age undetermined Abnormal ECG Confirmed by KOFI LE, ANTONIETA ([id number]), photography editor JOSE G ELIZABETH ([id number]) on 11/24/2024 8:22:34 AM Referred By: Joni Torres Confirmed By: ANTONIETA KIRBY MD
--- NOTE | 2024-11-22 19:38 | EX.ED.DYSGE1 ---
HPI <ELSY Butts - Last Filed: 11/22/24 21:09> History of Present Illness Chief Complaint: Fall Narrative Narrative: Patient is an 88-year-old female with history of hypothyroidism, hypertension, chronic back pain was stimulator, who lives at assisted living at [facility] presenting to the [facility] apartment after mechanical fall. Per the patient over the last 48 hours, she feels that she is more weak on her legs. She states that she shakes when she goes for a walk, and today she fell backward striking the back of her head. She denies any other injury. Denies any loss of consciousness. Patient is currently not on any blood thinners. Patient arrives by EMS. She is currently on Bactrim for UTI. [facility] <ELSY Butts - Last Filed: 11/22/24 21:09> [facility] Medical History (Updated 11/22/24 @ 20:[address] Biju Quezada, DO) Irritable bowel syndrome Spinal stenosis of lumbar region History of recent fall Wears hearing aid in both ears Hearing loss, left Hearing loss, right Anemia Anxiety Depression Hypothyroidism Chronic pain Osteoporosis GI bleed GERD (gastroesophageal reflux disease) Wears hearing aid History of depression Alcohol use Walker as ambulation aid Dietary restriction History of hiatal hernia History of GI bleed Celiac disease Gastric reflux Non-smoker Hoarseness History of stress test History of rheumatic fever Thyroid disease Osteoporosis Hypertension Osteoporosis Home Medications ?Medication ?Instructions ?Recorded ?Last Taken ?Type amitriptyline 25 mg tablet 25 mg PO QHS Mood 08/16/20 10/03/23 History azelastine 137 mcg (0.1 %) nasal 1 spray NASAL BID SINUS 08/16/20 10/04/23 History spray fluticasone propionate 50 1 spray NASAL BID allergies 08/16/20 10/04/23 History mcg/actuation nasal spray,suspension tramadol 50 mg tablet 50 mg PO Q8H Pain 11/09/20 10/04/23 History acetaminophen 500 mg tablet 500 mg PO Q6H PRN PRN Pain 1-10 Or 11/22/20 10/04/23 History Fever pantoprazole 40 mg tablet,delayed 40 mg PO BID GERD 11/22/20 10/04/23 History release levothyroxine 75 mcg tablet 75 mcg PO DAILY@0600 Thyroid #30 11/25/20 10/04/23 Rx tabs lisinopril 20 mg tablet 20 mg PO DAILY BP 01/30/21 10/04/23 History amlodipine 5 mg tablet 5 mg PO DAILY 07/04/24 Unknown History gabapentin 300 mg capsule 300 mg PO TID 07/04/24 Unknown History trazodone 50 mg tablet 50 mg PO QHS 07/04/24 Unknown History cholecalciferol (vitamin D3) 125 125 mcg PO DAILY #0 caps 07/07/24 Unknown Rx mcg (5,000 unit) capsule cephalexin 500 mg capsule 500 mg PO DAILY 11/22/24 Unknown History sulfamethoxazole 800 1 tab PO BID 11/22/24 Unknown History mg-trimethoprim 160 mg tablet Allergy/AdvReac Type Severity Reaction Status Date / Time meperidine (From Demerol) Allergy Unknown NEEDS Verified 11/22/24 20:17 FOLLOW-UP morphine Allergy Unknown NEEDS Verified 11/22/24 20:17 FOLLOW-UP gluten Allergy Food Verified 11/22/24 20:17 Allergy grass pollen-perennial rye, Allergy sinus Verified 11/22/24 20:17 standar (grass pressure poll-perennial rye,std) nitrofurantoin AdvReac Mild Other Verified 11/22/24 20:17 house dust AdvReac Other Verified 11/22/24 20:17 lactose AdvReac Food Verified 11/22/24 20:17 Allergy mold AdvReac Other Verified 11/22/24 20:17 Surgical History S/P hysterectomy History of appendectomy History of biopsy of bladder History of bilateral salpingo-oophorectomy (BSO) History of cystostomy History of shoulder surgery History of right knee surgery History of back surgery History of hysterectomy History of cholecystectomy Social History household members: spouse housing: assisted living facility current occupational status: retired Smoking Status: Never smoker alcohol intake: never ROS <ELSY Butts - Last Filed: 11/22/24 21:09> ROS ED ROS Narrative Constitutional: Negative for fever, chills, weight loss. Positive for weakness Eyes: Negative for vision loss, vision change, double vision ENT: Negative for any sore throat, ear pain, congestion Cardiovascular: Negative for any chest pain, tightness, palpitations Respiratory: Negative for any cough, sputum production, hemoptysis, dyspnea, dyspnea on exertion, orthopnea Gastrointestinal: Negative for any abdominal pain, nausea, vomiting, diarrhea, constipation, blood in stool, blood in vomit : Negative for any urinary frequency, dysuria, retention, blood in urine Muscle skeletal: Negative for any neck pain, back pain Neurological: Negative for any headache, syncope, dizziness Skin: Negative for any rashes, itching, abrasions, lacerations Psychiatric: Negative for any depression, anxiety, stress, suicidal ideation, homicidal ideation Hematologic: Negative for any excessive bruising, easy bleeding EXAM <ELSY Butts - Last Filed: 11/22/24 21:09> Physical Exam Narrative Exam Narrative: Vital signs reviewed. HEET: Head normocephalic atraumatic, TMs clear bilaterally. Posterior pharynx is clear, moist mucous membranes. Nares clear bilaterally. Neck: Supple with no lymphadenopathy or tenderness. No signs of meningismus. Cardiac: Regular rate and rhythm no murmurs gallops or rubs, equal peripheral pulses bilaterally. Respiratory: Lungs clear to auscultation bilaterally. No chest tenderness. Abdomen: Soft, nontender, nondistended. No abdominal bruit or pulsatile masses. No hepatosplenomegaly Extremities: No peripheral edema, no signs of gross trauma or deformity. Active full range of motion of all extremities. Neuro: Cranial nerves II through XII intact, no focal neurological deficits. Skin: Clean dry and intact with no rash, purpura, petechiae, vesicles or pustules. Backs/flank: No CVA tenderness, no midline spinal tenderness, no deformity. Psych: Normal mood and affect. No SI, HI or acute psychosis. Const Vital Signs: 11/22/24 19:15 11/22/24 20:11 Temperature 98.5 F Temperature Source Oral Pulse Rate 76 Respiratory Rate 18 Respiratory Effort Normal Respiratory Depth Normal Respiratory Pattern Normal Blood Pressure 135/59 H Blood Pressure Mean 84 Pulse Ox 95 Oxygen Delivery Method Room Air <Dr. Biju Quezada DO - Last Filed: 11/22/24 20:54> Physical Exam Const Vital Signs: 11/22/24 19:15 11/22/24 20:11 Temperature 98.5 F Temperature Source Oral Pulse Rate 76 Respiratory Rate 18 Respiratory Effort Normal Respiratory Depth Normal Respiratory Pattern Normal Blood Pressure 135/59 H Blood Pressure Mean 84 Pulse Ox 95 Oxygen Delivery Method Room Air [facility] <Teto ToscanoELSY - Last Filed: 11/22/24 21:09> [facility] Lab Data Labs: Laboratory Results - last 24 hr 11/22/24 11/22/24 19:52 20:08 WBC 6.7 RBC 3.58 L Hgb 10.4 L Hct 33.2 L MCV 92.7 MCH 29.1 MCHC 31.3 L RDW Std Deviation 48.1 H RDW Coeff of Laury 14.2 Plt Count 313 MPV 8.9 Immature Gran % (Auto) 0.300 Neut % (Auto) 67.2 Lymph % (Auto) 18.0 L [place] % (Auto) 11.0 H Eos % (Auto) 3.0 Baso % (Auto) 0.5 Absolute Neuts (auto) 4.5 Absolute Lymphs (auto) 1.20 Nucleated RBC % 0 Sodium 128 L Potassium 5.1 Chloride 94 L Carbon Dioxide 25.0 Anion Gap 8 BUN 39 H Creatinine 1.77 H Est GFR (MDRD) Af Amer 35 L Est GFR (MDRD) Non-Af 29 L BUN/Creatinine Ratio 22.0 H Glucose 122 H Calcium 9.1 Troponin I High Sens 7 Urine Color Yellow Urine Clarity Sl. Cloudy Urine pH 6.0 Ur Specific [place] 1.015 Urine Protein 15 H Urine Glucose (UA) Normal Urine Ketones Negative Urine Occult Blood 25 H Urine Nitrite Negative Urine Bilirubin Negative Urine Urobilinogen Normal Ur Leukocyte Esterase 500 H Urine RBC 0 SEEN Urine WBC 0 SEEN Ur Squamous Epith Cells 50-100 SEEN Urine Bacteria 0 SEEN Urine Mucus 0 SEEN Radiography Diagnostic Testing: Clinical Impression(s) from Imaging Studies Brain CT 11/22/24 19:37 IMPRESSION: 1. No acute intracranial abnormality. 2. Ventriculomegaly appears similar to the previous exam, may be due to age-related atrophy. Normal pressure hydrocephalus can be considered in the appropriate clinical scenario. 3. Moderate confluent periventricular white matter hypoattenuation, which is nonspecific, but possibly related to chronic ischemic microangiopathy. Reading Location: [facility] Chest X-Ray 11/22/24 20:20 IMPRESSION: 1. Mild peripheral linear opacities in the midlung zones bilaterally, possibly due to atelectasis, scarring or mild interstitial edema. Reading Location: [facility] EKG Sinus rhythm with premature atrial complexes,: Attestation: I personally reviewed and interpreted this EKG as follows: Interpretation: Sinus Rhythm Comments: Sinus rhythm with premature atrial complexes, rate 78 bpm, MD 288 ms, QRS duration 82 ms, no acute ST elevation, no acute infarct noted. Treatment and Re-Evaluation :: Differential diagnosis includes however is not limited to: Closed head injury concussion, intracranial bleeding, electrolyte abnormality, ACS, MO, worsening UTI, metabolic encephalopathy, COVID-19 influenza RSV Patient appears generally well, vital signs are stable, patient is nontoxic-appearing. Presenting to the emergency department after mechanical fall, worsening weakness over the last 48 hours. Patient received some basic laboratory values, CT scan of the brain, chest x-ray. COVID-19 influenza RSV swab will be obtained. Patient received a straight catheterization for urinalysis. All radiologic examinations were read, reviewed by the emergency department attending. From these reads, a plan of care will be put in place. On my initial evaluation, patient was equally strong in both lower and upper extremities. Patient appeared to be nontoxic Patient CT scan of the brain shows no acute intracranial normality. Patient's chest x-ray showed atelectasis, no acute process. Patient's laboratory values showed a stable anemia with a hemoglobin of 10.4, no leukocytosis. Chemistries did show some hyponatremia with a sodium of 128, KATT with a creatinine of 1.77, in July her creatinine was 0.68, patient's glucose was negative. Troponin was negative At this time, does not seem to be any acute bacterial infection. Patient's urinalysis Showed leukocytes however there was also a lot of squamous cells. At this time, patient will need to be admitted for KATT, hyponatremia, this is likely causing her weakness. I spoke with hospitalist to admit the patient. Stable for admission. <Dr. Biju Quezada, DO - Last Filed: 11/22/24 20:54> [facility] Narrative Medical decision making narrative: I have personally performed a face to face assessment of the patient and have reviewed the ALBERT Note. I performed a substantive portion of the visit including all aspects of the following. My wray findings include: History is [patient presents to the emergency department with weakness and 2 falls today. She is from assisted living and presents via EMS. She denies any injury. States she is currently being treated for UTI. She denies cough or sore throat. She denies chest pain currently although about a week ago she had chest discomfort that resolved after about an hour. Patient has no heart history. She does states that her legs feel weak like they want to give out. She denies blood in her stool or black tarry stool. She has had no vomiting or diarrhea.] Exam is [HEENT-PERRLA, EOMI. Cranial nerves II through XII grossly intact. TMs clear. Mucous membranes moist. No adenopathy. Cardiovascular-regular rate and rhythm without murmur or ectopy Lungs-clear to auscultation, chest wall stable without crepitus or subcu emphysema Abdomen-normoactive bowel sounds, soft, nontender, no rebound or rigidity, no peritoneal signs. Extremities-intact ?4, normal range of motion, normal pulses, atraumatic. +1 edema both lower extremities.] Medical Decison Making [patient presents with weakness and falls currently being treated for UTI. In the differential would be infectious etiology versus acute coronary syndrome. Less likely stroke as she has no focal deficits. CBC with differential obtained showing a 6.7 with hemoglobin 10.4 and platelet count of 313. Urinalysis was unremarkable. EKG showed a sinus rhythm with ventricular rate of 78 bpm with no acute ST segment changes.] Troponins negative at 7. Chemistries unremarkable other than a depressed sodium of 128 and a BUN of 39 with creatinine 1.77. Patient received a liter fluid bolus of normal saline. Will discuss with hospitalist to evaluate for admission for weakness, falls, hyponatremia, acute kidney injury. Other additions or changes: [None] Lab Data Attestation: I reviewed the patient's lab results. Labs: Laboratory Results - last 24 hr 11/22/24 11/22/24 19:52 20:08 WBC 6.7 RBC 3.58 L Hgb 10.4 L Hct 33.2 L MCV 92.7 MCH 29.1 MCHC 31.3 L RDW Std Deviation 48.1 H RDW Coeff of Laury 14.2 Plt Count 313 MPV 8.9 Immature Gran % (Auto) 0.300 Neut % (Auto) 67.2 Lymph % (Auto) 18.0 L [place] % (Auto) 11.0 H Eos % (Auto) 3.0 Baso % (Auto) 0.5 Absolute Neuts (auto) 4.5 Absolute Lymphs (auto) 1.20 Nucleated RBC % 0 Sodium 128 L Potassium 5.1 Chloride 94 L Carbon Dioxide 25.0 Anion Gap 8 BUN 39 H Creatinine 1.77 H Est GFR (MDRD) Af Amer 35 L Est GFR (MDRD) Non-Af 29 L BUN/Creatinine Ratio 22.0 H Glucose 122 H Calcium 9.1 Troponin I High Sens 7 Urine Color Yellow Urine Clarity Sl. Cloudy Urine pH 6.0 Ur Specific [place] 1.015 Urine Protein 15 H Urine Glucose (UA) Normal Urine Ketones Negative Urine Occult Blood 25 H Urine Nitrite Negative Urine Bilirubin Negative Urine Urobilinogen Normal Ur Leukocyte Esterase 500 H Urine RBC 0 SEEN Urine WBC 0 SEEN Ur Squamous Epith Cells 50-100 SEEN Urine Bacteria 0 SEEN Urine Mucus 0 SEEN Radiography Diagnostic Testing: Clinical Impression(s) from Imaging Studies Brain CT 11/22/24 19:37 IMPRESSION: 1. No acute intracranial abnormality. 2. Ventriculomegaly appears similar to the previous exam, may be due to age-related atrophy. Normal pressure hydrocephalus can be considered in the appropriate clinical scenario. 3. Moderate confluent periventricular white matter hypoattenuation, which is nonspecific, but possibly related to chronic ischemic microangiopathy. Reading Location: [facility] Chest X-Ray 11/22/24 20:20 IMPRESSION: 1. Mild peripheral linear opacities in the midlung zones bilaterally, possibly due to atelectasis, scarring or mild interstitial edema. Reading Location: [facility] EKG Initial EKG: Attestation: I personally reviewed and interpreted this EKG as follows: Comments: Sinus rhythm with rate of 78 bpm with occasional PACs Discharge Plan Dx/Rx/DC Orders Clinical Impression: Weakness, Falls, KATT (acute kidney injury), Acute hyponatremia Disposition Disposition: [facility]
[2024-11-22 20:12] LABS: Bacteria 0 SEEN /hpf (None Seen); Mucous, Urine 0 SEEN /hpf (<or=2+); White Blood Cells 0 SEEN /hpf (0-5)
[2024-11-22 20:13] LABS: Color, Urine Yellow (Yellow); Glucose, Dipstick Normal (Normal); Ketone-Dipstick Negative (Negative); Leukocyte Esterase-Dipstick 500 /ul (Negative); Nitrite-Dipstick Negative (Negative); Occult Blood-Urine 25 /ul (Negative); Protein-Dipstick 15 mg/dl (Negative); Specific Gravity, Urine 1.015 (1.002-1.030); Urine Bilirubin Dipstick Negative (Negative); Urine Clarity Sl. Cloudy (Clear); Urine Urobilinogen Normal (Normal)
[2024-11-22 20:14] LABS: Absolute Neutrophil Count 4.5 X10^3/uL (2.0-7.7); Basophil# 0.03 X10^3/uL; Basophil% 0.5 % (0-1); Hematocrit 33.2 % (37-47); Hemoglobin 10.4 g/dL (12.0-15.0); Mean Corp Hgb Conc 31.3 g/dL (32-36); Mean Corpuscular Hgb 29.1 pg (27.0-32.0); Mean Corpuscular Volume 92.7 fL (81-99); Mean Platelet Vol. 8.9 fl (6.2-12.0); Monocyte# 0.73 X10^3/uL; NRBC Flagged by Analyzer 0 % (0-5); Neutrophil # 4.48 X10^3/uL (2.7-7.7); Neutrophil % 67.2 % (47-70); Platelet Count 313 K/mm3 (150-450); RBC Distribution Width CV 14.2 % (11.6-14.6); RBC Distribution Width SD 48.1 fl (35.1-43.9); Red Blood Count 3.58 M/mm3 (4.2-5.4); White Blood Count 6.7 K/mm3 (4.4-11.0)
--- NOTE | 2024-11-22 20:20 | RAD_ITS ---
PROCEDURE: CHEST 1 VIEW (PORTABLE) REASON FOR EXAM: Cough TECHNIQUE: Frontal view of the chest. COMPARISON: 06/08/2024 FINDINGS: Mild peripheral linear opacities are present in the midlung zones bilaterally. There is no pulmonary consolidation. No pleural effusion or pneumothorax. The cardiomediastinal silhouette is unremarkable. Atherosclerotic calcifications are present in the aortic arch. No acute osseous or soft tissue abnormality. A spinal stimulator device is present. There are bilateral shoulder arthroplasties. Surgical clips are present in the right upper quadrant of the abdomen. RAD/Chest 1 View (Portable) IMPRESSION: 1. Mild peripheral linear opacities in the midlung zones bilaterally, possibly due to atelectasis, scarring or mild interstitial edema. Reading Location: [facility]
[2024-11-22 20:25] LABS: Red Blood Cells-Urine 0 SEEN /hpf (0-5); Squamous Epithelial Cells - UA 50-100 SEEN /hpf (5-10)
[2024-11-22 20:37] LABS: Anion Gap 8 (5-15); BUN 39 mg/dL (7-18); Calcium,Total 9.1 mg/dL (8.5-10.1); Chloride 94 mmol/L (98-107); Creatinine, Serum 1.77 mg/dL (0.55-1.02); EST Glomerular Filtration Rate 29 mL/min (>60); Est Glom Filt Rate - Afr Amer 35 mL/min (>60); Glucose 122 mg/dL (74-106); Potassium 5.1 mmol/L (3.5-5.1); Sodium Level 128 mmol/L (136-145); Troponin-I HS 7 pg/mL (3.0-54.0)
--- NOTE | 2024-11-22 21:08 | PCM.HP.STD ---
[facility] - General General Date of Admission: 11/22/24 Date of Service: 11/22/24 Chief Complaint: Fall. [facility] Narrative KAELA ROSALES, is a 88 F with a past medical history of essential hypertension; on lisinopril, hypothyroidism; on levothyroxine, remote history of rheumatic fever, history of asthma, history of closed TBI, neuropathy; on gabapentin 3 times daily, CKD; stage IIIa, history of bladder cancer; s/p cystostomy, overactive bladder, recurrent UTI's, GERD; with history of PUD and GI bleed on pantoprazole twice daily, history of hyponatremia, depression with anxiety; on amitriptyline, presbycusis; with history of ruptured TM, history of hysterectomy with BSO, history of cholecystectomy, osteoporosis, OA; s/p back surgery with subsequent chronic low back pain; s/p spinal stimulator and s/p Right MARIUM with subsequent chronic Right hip pain on chronic Tramadol 50 mg PO TID and Oxycodone 5 mg q. 6 hours PRN who recently fell on July 01, 2024 when she was trying to get up out of a swivel chair at her assisted living facility causing her to fall onto her knees with subsequent severe Right hip pain with imaging negative for obvious fracture so she was discharged back to her facility with subsequent readmission for fall with Right hip pain with CT scan of the pelvis that revealed a hairline fracture of the posterior column of the Right acetabulum on July 04, 2024 with patient then discharged on July 07, 2024 and recent diagnosis of UTI; patient started on oral Bactrim who now returns to [facility] ER complaining of another fall. 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 Ms. Rosales reports her symptoms began ~48 hours prior to admission with an escalating pattern of generalized weakness and fatigue particularly in her legs. She states that her legs shake when she walks and today she fell backward striking the back of her head but she denies loss of consciousness or significant injury with her fall. Patient is not currently on any blood thinners. She admits to generalized weakness and fatigue but she denies fever, chills, weight loss, changes in vision, sore throat, runny nose, chest pain, shortness of breath, abdominal pain, nausea, vomiting, dysuria, headache, rash or recent bleeding. In the ER she was noted to have evidence of KATT; in the setting of CKD; stage IIIa with elevated serum creatinine of 1.77 mg/dL present on admission (up from her baseline of 0.68 mg/dL last admission) complicated by mild Hyponatremia of 128 mmol/L present on admission in the setting of recent UTI all suspected to be triggered by Adverse Drug Reaction to Bactrim and she was then admitted to the general medical floor for ongoing care for a stay that is expected to extend beyond 2 midnights. [facility] Medical History Irritable bowel syndrome Spinal stenosis of lumbar region History of recent fall Wears hearing aid in both ears Hearing loss, left Hearing loss, right Anemia Anxiety Depression Hypothyroidism Chronic pain Osteoporosis GI bleed GERD (gastroesophageal reflux disease) Wears hearing aid History of depression Alcohol use Walker as ambulation aid Dietary restriction History of hiatal hernia History of GI bleed Celiac disease Gastric reflux Non-smoker Hoarseness History of stress test History of rheumatic fever Thyroid disease Osteoporosis Hypertension Osteoporosis Home Medications ?Medication ?Instructions ?Recorded ?Last Taken ?Type amitriptyline 25 mg tablet 25 mg PO QHS Mood 08/16/20 10/03/23 History azelastine 137 mcg (0.1 %) nasal 1 spray NASAL BID SINUS 08/16/20 10/04/23 History spray fluticasone propionate 50 1 spray NASAL BID allergies 08/16/20 10/04/23 History mcg/actuation nasal spray,suspension tramadol 50 mg tablet 50 mg PO Q8H Pain 11/09/20 10/04/23 History acetaminophen 500 mg tablet 500 mg PO Q6H PRN PRN Pain 1-10 Or 11/22/20 10/04/23 History Fever pantoprazole 40 mg tablet,delayed 40 mg PO BID GERD 11/22/20 10/04/23 History release levothyroxine 75 mcg tablet 75 mcg PO DAILY@0600 Thyroid #30 11/25/20 10/04/23 Rx tabs lisinopril 20 mg tablet 20 mg PO DAILY BP 01/30/21 10/04/23 History gabapentin 300 mg capsule 300 mg PO TID pain 07/04/24 Unknown History trazodone 50 mg tablet 50 mg PO QHS sleep 07/04/24 Unknown History cholecalciferol (vitamin D3) 125 125 mcg PO DAILY supplement #0 caps 07/07/24 Unknown Rx mcg (5,000 unit) capsule cephalexin 500 mg capsule 500 mg PO DAILY UTI prevention 11/22/24 Unknown History sulfamethoxazole 800 1 tab PO BID UTI 11/22/24 Unknown History mg-trimethoprim 160 mg tablet Allergy/AdvReac Type Severity Reaction Status Date / Time sulfamethoxazole (From Allergy Severe renal Verified 11/22/24 21:18 Bactrim) impairment trimethoprim (From Bactrim) Allergy Severe renal Verified 11/22/24 21:18 impairment meperidine (From Demerol) Allergy Unknown NEEDS Verified 11/22/24 20:17 FOLLOW-UP morphine Allergy Unknown NEEDS Verified 11/22/24 20:17 FOLLOW-UP gluten Allergy Food Verified 11/22/24 20:17 Allergy grass pollen-perennial rye, Allergy sinus Verified 11/22/24 20:17 standar (grass pressure poll-perennial rye,std) nitrofurantoin AdvReac Mild Other Verified 11/22/24 20:17 house dust AdvReac Other Verified 11/22/24 20:17 lactose AdvReac Food Verified 11/22/24 20:17 Allergy mold AdvReac Other Verified 11/22/24 20:17 Surgical History S/P hysterectomy History of appendectomy History of biopsy of bladder History of bilateral salpingo-oophorectomy (BSO) History of cystostomy History of shoulder surgery History of right knee surgery History of back surgery History of hysterectomy History of cholecystectomy Social History household members: spouse housing: assisted living facility current occupational status: retired Smoking Status: Never smoker alcohol intake: never ROS ROS Narrative Review of Systems: Constitutional: Patient admits to generalized weakness particularly in her lower extremities but she denies fever or chills. Eyes: Patient admits to blurry vision but he denies discharge from eyes. ENT: Patient denies runny nose, sore throat or ear pain. Resp: Patient denies shortness of breath or cough as per HPI. CV: Patient admits to palpitations and heart racing coinciding with his atrial flutter with rapid ventricular response in ER. He denies chest pain. GI: Patient denies abdominal pain, nausea, vomiting, diarrhea or constipation. : Patient denies dysuria, hematuria urinary frequency. MSK: Patient denies arthralgias or myalgias. Skin: Patient denies rash, abscess, wounds or jaundice. Psych: Patient denies symptoms of uncontrolled depression or anxiety. Neuro: Patient denies headache, paresthesias or focal neurologic deficits. Allergy: Patient denies lip swelling, tongue swelling or urticaria. Hematology: Patient denies easy bleeding or easy bruisability. Endocrinology: Patient denies polyuria, polydipsia or polyphagia. 14 point review of systems otherwise negative except for positives noted above in HPI. Vital Signs Vital Signs Vital Signs: 11/22/24 19:15 11/22/24 20:11 Temperature 98.5 F Temperature Source Oral Pulse Rate 76 Respiratory Rate 18 Respiratory Effort Normal Respiratory Depth Normal Respiratory Pattern Normal Blood Pressure 135/59 H Blood Pressure Mean 84 Pulse Ox 95 Oxygen Delivery Method Room Air Results Lab / Micro Data 11/23/24 05:57 11/23/24 05:57 Labs: Laboratory Results - last 24 hr 11/22/24 19:52: WBC 6.7, RBC 3.58 L, Hgb 10.4 L, Hct 33.2 L, MCV 92.7, MCH 29.1, MCHC 31.3 L, RDW Std Deviation 48.1 H, RDW Coeff of Laury 14.2, Plt Count 313, MPV 8.9, Immature Gran % (Auto) 0.300, Neut % (Auto) 67.2, Lymph % (Auto) 18.0 L, [place] % (Auto) 11.0 H, Eos % (Auto) 3.0, Baso % (Auto) 0.5, Absolute Neuts (auto) 4.5, Absolute Lymphs (auto) 1.20, Nucleated RBC % 0, Sodium 128 L, Potassium 5.1, Chloride 94 L, Carbon Dioxide 25.0, Anion Gap 8, BUN 39 H, Creatinine 1.77 H, Est GFR (MDRD) Af Amer 35 L, Est GFR (MDRD) Non-Af 29 L, BUN/Creatinine Ratio 22.0 H, Glucose 122 H, Calcium 9.1, Troponin I High Sens 7 11/22/24 20:08: Urine Color Yellow, Urine Clarity Sl. Cloudy, Urine pH 6.0, Ur Specific [place] 1.015, Urine Protein 15 H, Urine Glucose (UA) Normal, Urine Ketones Negative, Urine Occult Blood 25 H, Urine Nitrite Negative, Urine Bilirubin Negative, Urine Urobilinogen Normal, Ur Leukocyte Esterase 500 H, Urine RBC 0 SEEN, Urine WBC 0 SEEN, Ur Squamous Epith Cells 50-100 SEEN, Urine Bacteria 0 SEEN, Urine Mucus 0 SEEN Micro: Microbiology 11/22/24 19:45 Mucosa - Nose SARS-CoV-2, Influenza & RSV (PCR) - Final Imaging Radiology Impression Brain CT 11/22/24 19:37 IMPRESSION: 1. No acute intracranial abnormality. 2. Ventriculomegaly appears similar to the previous exam, may be due to age-related atrophy. Normal pressure hydrocephalus can be considered in the appropriate clinical scenario. 3. Moderate confluent periventricular white matter hypoattenuation, which is nonspecific, but possibly related to chronic ischemic microangiopathy. Reading Location: [facility] Chest X-Ray 11/22/24 20:20 IMPRESSION: 1. Mild peripheral linear opacities in the midlung zones bilaterally, possibly due to atelectasis, scarring or mild interstitial edema. Reading Location: [facility] Assessment & Plan Assessment/Plan (1) KATT (acute kidney injury): (2) Acute hyponatremia: (3) Adverse drug reaction: QUALIFIERS: Encounter type: initial encounter Qualified Code(s): T50.905A - Adverse effect of unspecified drugs, medicaments and biological substances, initial encounter (4) Fall: QUALIFIERS: Encounter type: initial encounter Qualified Code(s): W19.XXXA - Unspecified fall, initial encounter (5) Generalized weakness: (6) Ambulatory dysfunction: (7) Folate deficiency: (8) CKD stage 3a, GFR 45-59 ml/min: PLAN: Plan 1. KATT; in the setting of CKD; stage IIIa with elevated serum creatinine of 1.77 mg/dL present on admission (up from her baseline of 0.68 mg/dL last admission) - Admit to general medical floor. Give NS IVF and then recheck renal indices daily to follow trend. We will avoid potentially nephrotoxic medications. 2. Hyponatremia of 128 mmol/L present on admission complicating #1 - Give NS IVF and recheck level in AM to confirm improvement. 3. Adverse Drug Reaction to trimethoprim-sulfamethoxazole (Bactrim) use to treat recently diagnosed UTI; in the setting of recurrent UTI's precipitating #1 & #2 - Added trimethoprim-sulfamethoxazole (Bactrim) to list of allergies to avoid recurrence. 4. Mechanical Fall in the setting of progressively worsening Generalized Weakness and Fatigue attributable to #1 - #3 - PT/OT and Case Management to consult and treat on-rounds in the AM with help appreciated in advance. 5. Newly diagnosed Folate deficiency of 2.5 ng/mL adding to the medical complexity of #1 - #4 - Start Folic Acid 1 mg IV daily and then convert to oral supplementation at time of discharge. 6. Recent admission here from July 04, 2024 to July 07, 2024 for fall with Right hip pain with CT scan of the pelvis that revealed a hairline fracture of the posterior column of the Right acetabulum - Noted. 7. OA; s/p back surgery with subsequent chronic low back pain; s/p spinal stimulator and s/p Right MARIUM with subsequent chronic Right hip pain on chronic Tramadol 50 mg PO TID with Fall on July 01, 2024 - Noted continuing pattern of falls. 8. Essential Hypertension; on lisinopril and amlodipine - Hold lisinopril in light of #1. Give hydralazine IV as needed for systolic blood pressure greater than 160 mmHg. 9. Hypothyroidism; on levothyroxine - Resume levothyroxine and check TSH in light of generalized weakness and declining strength outlined in #4. 10. Remote history of rheumatic fever - Noted. 11. History of asthma - Stable with no evidence of acute flare at this time. Give nebulizers prn. 12. History of closed TBI - Noted. 13. Neuropathy; on gabapentin 3 times daily - Maintain on current treatment. 14. History of bladder cancer; s/p cystostomy - Noted. 15. Overactive bladder - Stable with patient currently not on pharmacologic treatment. 16. GERD; with history of PUD and GI bleed on pantoprazole twice daily - Continue PPI. 17. History of hyponatremia - Stable with recent labs showing baseline in the low 130's. 18. Depression with anxiety; on amitriptyline - Resume current treatment. 19. Presbycusis; with history of ruptured TM - Noted. 20. History of hysterectomy with BSO - Noted for the sake of completeness. 21. History of cholecystectomy - Noted. 22. Osteoporosis - Stable with patient already on vitamin D3 supplementation. 23. DVT prophylaxis - Heparin 5,000U sq BID plus SCD's. Total time: Approximately (but not less than) 75 minutes. Charges/Coding Visit Charges Inpatient E&M: 82260 Init Hosp L3
[2024-11-22 21:15] VITALS: BP 137/59; PULSE 78; RESP 20; O2SAT 91
[2024-11-22] MEDS: 0.9% Normal Saline (1000mL) 1,000 ML 999 ML IV (21:26)
[2024-11-22 21:28] VITALS: BP 137/59; PULSE 71; RESP 20; TEMP 36.4; O2SAT 92
[2024-11-22 22:27] VITALS: BMI 31.5
[2024-11-22 22:37] LABS: Magnesium 2.6 mg/dL (1.6-2.6)
[2024-11-22 22:47] VITALS: BP 146/76; PULSE 78; RESP 16; TEMP 36.7; O2SAT 99
[2024-11-22] MEDS: Azelastine HCl NASAL.SRY 1 SPRAY NASAL (23:12)
[2024-11-22] MEDS: 0.9% Normal Saline (1000mL) 1,000 ML 75 ML IV (23:12)
[2024-11-22] MEDS: Ceftriaxone 1 GM/50 ML BAG IV (23:12)
[2024-11-22] MEDS: traZODone 50 MG Tablet PO (23:13)
[2024-11-22] MEDS: Pantoprazole Sodium 40 MG Tablet PO (23:14)
[2024-11-22] MEDS: Heparin Injection (Vial) 5,000 UNIT/ML VIAL 5000 UNIT SC (23:14)
[2024-11-22] MEDS: Fluticasone 0.05% 1 SPRAY NASAL.SRY NASAL (23:14)
[2024-11-22] MEDS: Amitriptyline 25 MG Tablet PO (23:14)
[2024-11-22] MEDS: Gabapentin 300 MG Capsule PO (23:17)
[2024-11-22] MEDS: traMADol 50 MG Tablet PO (23:17)
[2024-11-23 01:14] LABS: Osmolality, Serum 285 mOsm/KG (280-301)
[2024-11-23 01:14] LABS: Osmolality, Urine 383 mOsm/KG
[2024-11-23] MEDS: Folic Acid 1 MG in 0.9% Normal Saline (50mL Bag) 50 ML 200 MG IV (04:04)
[2024-11-23 04:13] VITALS: BP 129/60; PULSE 81; RESP 18; TEMP 36.4; O2SAT 92
[2024-11-23 05:05] VITALS: BMI 31.6
[2024-11-23] MEDS: Gabapentin 300 MG Capsule PO ×3 (06:04→22:31)
[2024-11-23] MEDS: traMADol 50 MG Tablet PO ×3 (06:04→22:31)
[2024-11-23] MEDS: Levothyroxine 75 MCG Tablet PO (06:04)
[2024-11-23 06:19] LABS: Absolute Lymphocyte Count 1.24 X10^3/uL (0.83-4.51); Absolute Neutrophil Count 2.8 X10^3/uL (2.0-7.7); Basophil# 0.04 X10^3/uL; Basophil% 0.8 % (0-1); Eosinophil# 0.29 X10^3/uL; Eosinophils% 5.8 % (0-5); Hematocrit 27.1 % (37-47); Hemoglobin 8.6 g/dL (12.0-15.0); Lymphocyte # 1.24 X10^3/ul (0.83-4.51); Mean Corp Hgb Conc 31.7 g/dL (32-36); Mean Corpuscular Hgb 29.6 pg (27.0-32.0); Mean Corpuscular Volume 93.1 fL (81-99); Monocyte# 0.54 X10^3/uL; Monocyte% 10.9 % (0-10); NRBC Flagged by Analyzer 0 % (0-5); Neutrophil # 2.83 X10^3/uL (2.7-7.7); Neutrophil % 57.1 % (47-70); Platelet Count 264 K/mm3 (150-450); RBC Distribution Width CV 14.2 % (11.6-14.6); RBC Distribution Width SD 48.5 fl (35.1-43.9); Red Blood Count 2.91 M/mm3 (4.2-5.4)
[2024-11-23 07:05] LABS: ALB/GLOB Ratio 1.1 RATIO (0.9-2.4); AST(SGOT) 15 U/L (15-37); Alanine Aminotransfer ALT/SGPT 13 U/L (13-56); Albumin, Serum 2.9 g/dL (3.2-5.0); Alkaline Phosphatase 63 U/L (45-117); Anion Gap 6 (5-15); BUN 29 mg/dL (7-18); BUN/Creat Ratio 24.8 RATIO (10-20); Calcium,Total 8.3 mg/dL (8.5-10.1); Chloride 104 mmol/L (98-107); Creatinine, Serum 1.17 mg/dL (0.55-1.02); EST Glomerular Filtration Rate 46 mL/min (>60); Est Glom Filt Rate - Afr Amer 56 mL/min (>60); Estimated Creatinine Clearance 29.25 ml/min; Globulin 2.7 g/dL (2.2-4.2); Glucose 92 mg/dL (74-106); Phosphorus 3.9 mg/dL (2.5-4.9); Potassium 4.6 mmol/L (3.5-5.1); Protein, Total 5.6 g/dL (6.4-8.2); Sodium Level 133 mmol/L (136-145)
[2024-11-23 08:00] VITALS: BP 134/65; PULSE 74; RESP 16; TEMP 36.3; O2SAT 99
[2024-11-23 09:00] VITALS: BP 134/65; PULSE 74; RESP 18; TEMP 36.3; O2SAT 98
[2024-11-23] MEDS: Fluticasone 0.05% 1 SPRAY NASAL.SRY NASAL ×2 (10:48→22:30)
[2024-11-23] MEDS: Azelastine HCl NASAL.SRY 1 SPRAY NASAL ×2 (10:49→22:29)
[2024-11-23] MEDS: Pantoprazole Sodium 40 MG Tablet PO ×2 (10:49→22:31)
[2024-11-23] MEDS: Cholecalciferol (Vit D3) 125 MCG CAPSULE (5,000 UNITS) PO (10:49)
[2024-11-23] MEDS: Heparin Injection (Vial) 5,000 UNIT/ML VIAL 5000 UNIT SC ×2 (10:50→22:30)
[2024-11-23] MEDS: 0.9% Normal Saline (1000mL) 1,000 ML 75 ML IV (13:24)
[2024-11-23 15:00] VITALS: BP 144/64; PULSE 85; RESP 18; TEMP 36.8; O2SAT 99
[2024-11-23 16:00] VITALS: BP 144/64; PULSE 88; RESP 18; TEMP 36.8; O2SAT 98
--- NOTE | 2024-11-23 17:53 | PN.HOSP_ITS ---
Reason for Visit Reason for Visit: Diagnoses Deficiency of other specified B group vitamins (11/22/24) Hypo-osmolality and hyponatremia (11/22/24) Acute kidney failure, unspecified (11/22/24) Chronic kidney disease, stage 3a (11/22/24) Difficulty in walking, not elsewhere classified (11/22/24) Weakness (11/22/24) Adverse effect of unspecified drugs, medicaments and biological substances, initial encounter (11/22/24) Unspecified fall, initial encounter (11/22/24) Subjective Subjective Patient was seen and examined today, she states she still feels weak. Her creatinine is improved to 1.17 today, I will repeat her BMP tomorrow. She may be stable for discharge back to [place] tomorrow for continuing care. Objective Data Objective Data Vital Signs: Vital Signs Temp Pulse Resp BP Pulse Ox O2 Del Method 97.3 F L 74 18 134/65 H 98 Room Air 11/23/24 09:00 11/23/24 09:00 11/23/24 09:00 11/23/24 09:00 11/23/24 09:00 11/23/24 11:07 Oxygen Delivery Method Room Air Weight: 68.5 kg Body Mass Index (BMI) 31.6 Intake & Output: Intake and Output for Last 24 Hours 11/21/24 11/22/24 11/23/24 23:59 23:59 23:59 Intake Total 1110 / 1110 1110.20 / 1110.20 Balance 1110 / 1110 1110.20 / 1110.20 Lab / Micro Data 11/23/24 05:57 11/23/24 05:57 Labs: Laboratory Results - last 24 hr 11/22/24 17:00: Folate 2.50 L, TSH 3.910 H 11/22/24 19:52: WBC 6.7, RBC 3.58 L, Hgb 10.4 L, Hct 33.2 L, MCV 92.7, MCH 29.1, MCHC 31.3 L, RDW Std Deviation 48.1 H, RDW Coeff of Laury 14.2, Plt Count 313, MPV 8.9, Immature Gran % (Auto) 0.300, Neut % (Auto) 67.2, Lymph % (Auto) 18.0 L, M ba % (Auto) 11.0 H, Eos % (Auto) 3.0, Baso % (Auto) 0.5, Absolute Neuts (auto) 4.5, Absolute Lymphs (auto) 1.20, Nucleated RBC % 0, Sodium 128 L, Potassium 5.1, Chloride 94 L, Carbon Dioxide 25.0, Anion Gap 8, BUN 39 H, Creatinine 1.77 H, Est GFR (MDRD) Af Amer 35 L, Est GFR (MDRD) Non-Af 29 L, BUN/Creatinine Ratio 22.0 H, Glucose 122 H, Calcium 9.1, Magnesium 2.6, Troponin I High Sens 7 11/22/24 20:08: Urine Color Yellow, Urine Clarity Sl. Cloudy, Urine pH 6.0, Ur Specific [place] 1.015, Urine Protein 15 H, Urine Glucose (UA) Normal, Urine Ketones Negative, Urine Occult Blood 25 H, Urine Nitrite Negative, Urine Bilirubin Negative, Urine Urobilinogen Normal, Ur Leukocyte Esterase 500 H, Urine RBC 0 SEEN, Urine WBC 0 SEEN, Ur Squamous Epith Cells 50-100 SEEN, Urine Bacteria 0 SEEN, Urine Mucus 0 SEEN, Urine Osmolality 383 11/22/24 23:51: Serum Osmolality 285 11/23/24 05:57: WBC 5.0, RBC 2.91 L, Hgb 8.6 L, Hct 27.1 L, MCV 93.1, MCH 29.6, MCHC 31.7 L, RDW Std Deviation 48.5 H, RDW Coeff of Laury 14.2, Plt Count 264, MPV 9.0, Immature Gran % (Auto) 0.400, Neut % (Auto) 57.1, Lymph % (Auto) 25.0, [place] % (Auto) 10.9 H, Eos % (Auto) 5.8 H, Baso % (Auto) 0.8, Absolute Neuts (auto) 2.8, Absolute Lymphs (auto) 1.24, Nucleated RBC % 0, Sodium 133 L, Potassium 4.6, Chloride 104, Carbon Dioxide 23.0, Anion Gap 6, BUN 29 H, Creatinine 1.17 H , Estim Creat Clear Calc 29.25, Est GFR (MDRD) Af Amer 56 L, Est GFR (MDRD) Non- Af 46 L, BUN/Creatinine Ratio 24.8 H, Glucose 92, Calcium 8.3 L, Phosphorus 3.9, Total Bilirubin 0.30, AST 15, ALT 13, Alkaline Phosphatase 63, Total Protein 5.6 L, Albumin 2.9 L, Globulin 2.7, Albumin/Globulin Ratio 1.1 Micro: Microbiology 11/22/24 19:45 Mucosa - Nose SARS-CoV-2, Influenza & RSV (PCR) - Final Radiography Diagnostic Testing: Radiology Impression Brain CT 11/22/24 19:37 IMPRESSION: 1. No acute intracranial abnormality. 2. Ventriculomegaly appears similar to the previous exam, may be due to age- related atrophy. Normal pressure hydrocephalus can be considered in the appropriate clinical scenario. 3. Moderate confluent periventricular white matter hypoattenuation, which is nonspecific, but possibly related to chronic ischemic microangiopathy. Reading Location: [facility] Chest X-Ray 11/22/24 20:20 IMPRESSION: 1. Mild peripheral linear opacities in the midlung zones bilaterally, possibly due to atelectasis, scarring or mild interstitial edema. Reading Location: [facility] Physical Exam Const alert, oriented x3, no apparent distress and healthy appearing Constitutional Narrative: Patient appears her stated age General Appearance: cooperative, well kempt and well developed Orientation / Consciousness: awake, oriented to person, oriented to place and oriented to time HEENT normocephalic, head/scalp atraumatic and moist oral mucous membranes Eyes PERRL, EOMs intact bilaterally and conjunctivae normal Neck supple, no JVD, thyroid normal and no carotid bruits General: trachea midline Resp normal respiratory effort, no retractions, no use of accessory muscles and clear to auscultation bilaterally Auscultation: Negative for rales, rhonchi or wheezes Cardio regular rate, regular rhythm, S1 normal heart sound, S2 normal heart sound, no murmurs, no rub and no gallops GI normal to inspection, nondistended, normoactive bowel sounds, soft to palpation, non-tender and non-distended Extremity no clubbing, cyanosis or edema Skin no rashes or lesions noted General Skin Exam: no breakdown Neuro oriented x3, CN's II-XII intact bilaterally, moves all extremities, no focal motor deficits and no sensory deficits noted Sensorium / Orientation: awake and alert Speech: speech normal Psych affect normal Assessment & Plan Assessment/Plan (1) KATT (acute kidney injury): PLAN: Plan 1. Acute kidney injury on a backdrop of stage III chronic kidney disease- patient remains on IV fluids and BMP will be rechecked tomorrow, this is probably triggered by use of Bactrim for treatment of UTI #2 acute debility secondary to acute kidney injury-PT and OT will continue work with the patient, he will be expected to be discharged back to [place] possibly tomorrow #3 hypothyroidism-patient is on Synthroid #4 hypertension-patient is on lisinopril Total clinical time spent by myself addressing patient's medical issues, reviewing all of her data, and collaborating with patient's care team: 35 minutes Charges/Coding Visit Charges Inpatient E&M: 01971 Subs Hosp L2
[2024-11-23] MEDS: Ceftriaxone 1 GM/50 ML BAG IV (22:26)
[2024-11-23] MEDS: traZODone 50 MG Tablet PO (22:30)
[2024-11-23] MEDS: Amitriptyline 25 MG Tablet PO (22:30)
[2024-11-23 22:33] VITALS: BP 154/76; PULSE 75; RESP 18; TEMP 36.6; O2SAT 99
[2024-11-24 04:06] VITALS: BP 164/71; PULSE 70; RESP 18; TEMP 36.3; O2SAT 98
[2024-11-24 04:12] VITALS: BP 164/71; PULSE 70
[2024-11-24] MEDS: hydrALAZINE 20 MG/ML Vial 5 MG IV (04:12)
[2024-11-24] MEDS: 0.9% Saline Lock 10 ML Syringe IV (04:12)
[2024-11-24 06:00] VITALS: BMI 31.5
[2024-11-24] MEDS: traMADol 50 MG Tablet PO ×2 (06:08→13:57)
[2024-11-24] MEDS: Gabapentin 300 MG Capsule PO ×2 (06:08→13:57)
[2024-11-24] MEDS: Levothyroxine 75 MCG Tablet PO (06:08)
[2024-11-24 06:23] VITALS: BP 150/71
[2024-11-24 08:20] LABS: Vitamin B12 278 pg/mL (211-911)
[2024-11-24 08:38] LABS: Anion Gap 6 (5-15); BUN 17 mg/dL (7-18); BUN/Creat Ratio 21.2 RATIO (10-20); Calcium,Total 9.2 mg/dL (8.5-10.1); Chloride 106 mmol/L (98-107); EST Glomerular Filtration Rate 72 mL/min (>60); Est Glom Filt Rate - Afr Amer 87 mL/min (>60); Estimated Creatinine Clearance 42.69 ml/min; Glucose 84 mg/dL (74-106); Phosphorus 3.4 mg/dL (2.5-4.9); Potassium 4.3 mmol/L (3.5-5.1); Sodium Level 136 mmol/L (136-145)
[2024-11-24 08:42] VITALS: O2SAT 93
--- NOTE | 2024-11-24 08:58 | CASEMGMT ---
Per pt, plan is to return to [facility] if appropriate. She is open to short term snf stay or HH. Updates faxed to Aura @ [facility]. ALLI & RN CM updated. Charmaine Mcqueen DC Planning Asst.
[2024-11-24] MEDS: Azelastine HCl NASAL.SRY 1 SPRAY NASAL (10:06)
[2024-11-24] MEDS: Fluticasone 0.05% 1 SPRAY NASAL.SRY NASAL (10:06)
[2024-11-24] MEDS: Cholecalciferol (Vit D3) 125 MCG CAPSULE (5,000 UNITS) PO (10:07)
[2024-11-24] MEDS: Heparin Injection (Vial) 5,000 UNIT/ML VIAL 5000 UNIT SC (10:07)
[2024-11-24] MEDS: Folic Acid 1 MG in 0.9% Normal Saline (50mL Bag) 50 ML 200 MG IV (10:12)
[2024-11-24] MEDS: Pantoprazole Sodium 40 MG Tablet PO (10:12)
--- NOTE | 2024-11-24 11:00 | PCM.TXEXTCAR ---
Diet Diet Order/Speech Therapy: 11/22/24 22:09 Diet: Cardiac - Heart Healthy Food consistency:: Regular Liquid Consistency:: Regular/Thin Routine Orders/Code Status Suppository Type: Dulcolax 10mg Suppository Frequency: Daily PRN Routine Lab Work: CBC and BMP (In 1 week) DC O2, CPAP, BIPAP needs Home O2 Discharge instructions: No Therapies Extremity Affected:: Bilateral Lower Physical Therapy: Eval and Treat Occupational Therapy: Eval and Treat Speech Therapy: Eval and Treat Problem/Diagnosis (1) KATT (acute kidney injury): Status: Acute Code(s): N17.9 - Acute kidney failure, unspecified Allergies/Procedures Done in Hospital Allergies meperidine (From Demerol) Allergy (Unknown, Verified 11/22/24 20:17) NEEDS FOLLOW-UP morphine Allergy (Unknown, Verified 11/22/24 20:17) NEEDS FOLLOW-UP gluten Allergy (Verified 11/22/24 20:17) Food Allergy grass pollen-perennial rye, standar (grass poll-perennial rye,std) Allergy (Verified 11/22/24 20:17) sinus pressure nitrofurantoin Adverse Reaction (Mild, Verified 11/22/24 20:17) Other per patient house dust Adverse Reaction (Verified 11/22/24 20:17) Other SINUS PRESSURE lactose Adverse Reaction (Verified 11/22/24 20:17) Food Allergy mold Adverse Reaction (Verified 11/22/24 20:17) Other SINUS PRESSURE Type of Care/Length of Stay Estimated LOS: Convalescent Care Less Than 30 days Type of Care Needed: Skilled Rehab Potential: Good Prognosis: Good Additional Orders/Day of Discharge Day of Discharge: 11/24/24 Dietary and Speech Recommendations Dietitian Recommendations/Changes: Will continue liberalized regular diet with consistency/texture as per GROUP PROGRAM MANAGER. Will continue 120mL ensure plus HP 4 times per day w/ medpass. Monitor blood glucose level and restrict dietary carbohydrate as needed. Trend weights closely and adjust ONS as needed to optimize nutrition and prevent energy/pro depletion. Discharge Plan Admission Admit Date/Time: 11/22/24 21:53 Attending Provider: Wai Neal Primary Care Provider: Roma Grajeda Consulting Providers: Joni Torres; Reinier Rojas Discharge Orders/Prescriptions Prescriptions: New acetaminophen 500 mg Tablet 500 mg PO Q8H PRN PRN (Reason: arthritis pain) Qty: 0 0RF Continued amitriptyline 25 MG tablet 25 mg PO QHS azelastine 1 SPRAY aerosol,spray 1 spray NASAL BID fluticasone propionate 1 SPRAY spray,suspension 1 spray NASAL BID tramadol 50 MG tablet 50 mg PO Q8H levothyroxine 75 MCG tablet 75 mcg PO DAILY@0600 Qty: 30 0RF lisinopril 20 MG tablet 20 mg PO DAILY trazodone 50 mg tablet 50 mg PO QHS gabapentin 300 mg capsule 300 mg PO TID cholecalciferol (vitamin D3) 125 mcg (5,000 unit) Capsule 125 mcg PO DAILY Qty: 0 0RF cephalexin 500 mg capsule 500 mg PO DAILY Changed pantoprazole 40 MG tablet 40 mg PO DAILY 30 Days Qty: 0 0RF Discontinued acetaminophen 500 MG tablet 500 mg PO Q6H PRN PRN (Reason: Pain 1-10 Or Fever) sulfamethoxazole-trimethoprim 800-160 mg tablet 1 tab PO BID Rx Instructions: x 7 days Referrals / Follow Up: Roma Grajeda DO [Primary Care Provider] - (Left a message on answer machine at Doctor's office that the patient needs appointment. I asked the office to please call me back.) Disposition Disposition (needs filled in before D/C Order can be placed): [facility] Facility
--- NOTE | 2024-11-24 12:01 | PCM.DC.SUM ---
Providers Date of Admission: 11/22/24 Date of Discharge: 11/24/24 Primary Care Physician: Dr. Roma Grajeda DO Reason For Visit: KATT ADVERSE DRUG REACTION TO BACTRIM AND FALL Diagnosis Discharge Diagnosis (1) KATT (acute kidney injury): Status: Acute Code(s): N17.9 - Acute kidney failure, unspecified Plan 88-year-old female admitted after she had mechanical fall. She was feeling very weak on her legs for last 48 hours. She was recently started on Bactrim DS for UTI 1. Acute kidney injury on a backdrop of stage III chronic kidney disease-: Patient was treated with IV fluid. She was admitted with creatinine 1.77. Today it is 0.80. Patient is well-hydrated. UA was negative for pyuria and patient denies dysuria or increased Conservancy. Patient was impregnated with IV ceftriaxone though acute UTI/cystitis ruled out. Patient on chronic cephalexin prophylaxis for UTI. Vitamin D is low. Prescription given for saline cobalamin #2 acute debility secondary to acute kidney injury-PT and OT worked with the patient, he will be expected to be discharged back to [place] possibly tomorrow Patient is being discharged to [place] #3 hypothyroidism-patient is on Synthroid #4 hypertension-patient is on lisinopril Discharge medication reconciliation done. Discharge follow-up instructions completed. Discharge process discussed with the patient and all questions were answered to patient's satisfaction. Follow with PCP in 1 to 2 weeks Total time spent, exact 35 minutes on discharge meds reconciliation, examination, coordination of care with nurses and ancillary staff, review of imaging and blood test and discussion with the patient on follow-up instructions. Medications at Discharge Home Medications amitriptyline 25 mg tablet 25 mg PO QHS Mood 08/16/20 azelastine 137 mcg (0.1 %) nasal spray 1 spray NASAL BID SINUS 08/16/20 fluticasone propionate 50 mcg/actuation nasal spray,suspension 1 spray NASAL BID allergies 08/16/20 tramadol 50 mg tablet 50 mg PO Q8H Pain 11/09/20 levothyroxine 75 mcg tablet 75 mcg PO DAILY@0600 Thyroid #30 tabs 11/25/20 lisinopril 20 mg tablet 20 mg PO DAILY BP 01/30/21 Held on 11/24/24. Instructions: Hold today and start tomorrow with lower dose 10 mg daily. gabapentin 300 mg capsule 300 mg PO TID pain 07/04/24 trazodone 50 mg tablet 50 mg PO QHS sleep 07/04/24 cholecalciferol (vitamin D3) 125 mcg (5,000 unit) capsule 125 mcg PO DAILY supplement #0 caps 07/07/24 cephalexin 500 mg capsule 500 mg PO DAILY UTI prevention 11/22/24 acetaminophen 500 mg tablet 500 mg PO Q8H PRN PRN arthritis pain #0 tabs 11/24/24 cyanocobalamin (vitamin B-12) 1,000 mcg tablet 1,000 mcg PO DAILY #30 tabs 11/24/24 pantoprazole 40 mg tablet,delayed release 40 mg PO DAILY GERD 30 days #0 tabs 11/24/24 Physical Exam Narrative Seen and examined. Patient is doing well. Denies any burning micturition, increased frequency or urgency. Denies fever. Physical exam General: Alert, Oriented x3, Cooperative HEENT: Atraumatic, PERRLA, EOMI, Normocephalic Oral: No Gingival or Mucosal Lesions/ Ulcerations Neck: Supple, No JVD, Negative Carotid Bruits Chest wall/Lungs: Air entry diminished in bilateral lung bases. No crepitation/rhonchi Cardiovascular: Regular rate, Regular Rhythm, Normal S1, Normal S2, No M/G/R Abdomen: Bowel Sounds Present, Soft, Non Tender, Non-Distended : No dysuria. No renal angle tenderness. No suprapubic tenderness. Extremities: No edema, Capillary Refill Less than 3 Seconds Skin: No rashes, No breakdown Musculoskeletal: No Tenderness to Palpation of Joints or Extremities. ROM mildly decreased. Neurological: Cranial nerves II-XII grossly intact, DTR 2+/4. No acute focal neurological deficit. Psych/Mental Status: Normal Affect, Appropriate. Weight / BMI Weight Weight: 150 lb 5.684 oz Body Mass Index (BMI) 31.5 ABG / Lab / Microbiology Data 11/23/24 05:57 11/24/24 06:40 Laboratory: Laboratory Results - last 24 hr 11/23/24 05:57: Vitamin B12 278 11/24/24 06:40: Sodium 136, Potassium 4.3, Chloride 106, Carbon Dioxide 24.0, Anion Gap 6, BUN 17, Creatinine 0.80, Estim Creat Clear Calc 42.69, Est GFR (MDRD) Af Amer 87, Est GFR (MDRD) Non-Af 72, BUN/Creatinine Ratio 21.2 H, Glucose 84, Calcium 9.2, Phosphorus 3.4 Microbiology: Microbiology 11/22/24 19:45 Mucosa - Nose SARS-CoV-2, Influenza & RSV (PCR) - Final D/C Instructions DC O2, CPAP, BIPAP Needs Home O2 Discharge instructions: No Meaningful Use Info Meaningful Use Meaningful Use Diagnoses (Choose all that apply): None applicable Ischemic Stroke Statin Dosing Therapy Reference: STATIN DOSE THERAPY REFERENCE: * Patients > 75 years receive moderate or high dose statin therapy. * Patients 75 years or YOUNGER should receive HIGH intensity statin dose unless contraindicated. You will be required to document reason for non-treatment if statin daily dose does not meet guidelines. HIGH DOSE STATIN THERAPY DAILY Atorvastatin > than or = to 40 mg Rosuvastatin > than or = to 20 mg Amlodipine + Atorvastatin > than or = to 2.5/40 mg Ezetimibe + Simvastatin 10/80 mg Simvastatin 80mg Discharge Plan Admission Admit Date/Time: 11/22/24 21:53 Attending Provider: Wai Neal Primary Care Provider: Roma Grajeda Consulting Providers: Joni Torres; Reinier Rojas Discharge Orders/Prescriptions Prescriptions: New acetaminophen 500 mg Tablet 500 mg PO Q8H PRN PRN (Reason: arthritis pain) Qty: 0 0RF cyanocobalamin (vitamin B-12) 1,000 mcg tablet 1,000 mcg PO DAILY Qty: 30 0RF Continued amitriptyline 25 MG tablet 25 mg PO QHS azelastine 1 SPRAY aerosol,spray 1 spray NASAL BID fluticasone propionate 1 SPRAY spray,suspension 1 spray NASAL BID tramadol 50 MG tablet 50 mg PO Q8H levothyroxine 75 MCG tablet 75 mcg PO DAILY@0600 Qty: 30 0RF trazodone 50 mg tablet 50 mg PO QHS gabapentin 300 mg capsule 300 mg PO TID cholecalciferol (vitamin D3) 125 mcg (5,000 unit) Capsule 125 mcg PO DAILY Qty: 0 0RF cephalexin 500 mg capsule 500 mg PO DAILY Changed pantoprazole 40 MG tablet 40 mg PO DAILY 30 Days Qty: 0 0RF Held lisinopril 20 MG tablet 20 mg PO DAILY Hold Instructions: Hold today and start tomorrow with lower dose 10 mg daily. Discontinued acetaminophen 500 MG tablet 500 mg PO Q6H PRN PRN (Reason: Pain 1-10 Or Fever) sulfamethoxazole-trimethoprim 800-160 mg tablet 1 tab PO BID Rx Instructions: x 7 days Referrals / Follow Up: Roma Grajeda DO [Primary Care Provider] - (Left a message on answer machine at Doctor's office that the patient needs appointment. I asked the office to please call me back.) Disposition Disposition (needs filled in before D/C Order can be placed): Long-Term Facility Charges/Coding Visit Charges Inpatient E&M: 50642 Disch Hosp >30min
--- NOTE | 2024-11-24 12:52 | CASEMGMT ---
Addendum entered by Nanda Nathan 11/24/24 13:26: [facility] has accepted pt. DC news assistant to make pt aware. Added to dc instructions. Original Note: RN CM into pt room, pt just finished with therapy. Discussed with pt having PT and OT upon returning back to [place], pt states she is agreeable to this. Pt has had [facility] in the past and would like their services again as she states she was very pleased. Pt denies need for a list of other options. Pt states she has a rollator at [place]. She denies any further needs. Requested dc news assistant to send referral.
--- NOTE | 2024-11-24 12:57 | CASEMGMT ---
Addendum entered by Charmaine Mcqueen 11/24/24 14:58: [facility] has accepted. JAYDEN CM updated. Charmaine Mcqueen DC Planning Asst. Original Note: HH referral sent to [facility]. Charmaine Mcqueen DC Planning Asst.
--- NOTE | 2024-11-24 13:37 | CASEMGMT ---
Discharge Summary faxed to Aura @ [place] with note that [facility] will follow. Pts and her son updated. Pts son will transport back to [place] at approx 2:30p. Charmanie Mcqueen DC Planning Asst.
[2024-11-24] MEDS: Ceftriaxone 1 GM Vial IM (13:49)
--- NOTE | 2024-11-24 14:05 | CHAPLAIN ---
Type of Pastoral Visit _x__ Initial Visit ___ Follow-up Visit ___ On-call Visit ___ General Patient Visit ___ Spiritual Assessment ___ Family Conference ___ Bereavement ___ Rapid Response ___ Code Blue ___ Other (describe below) Pastoral Care Referral From _x__ Patient ___ Family ___ Nurse ___ Physician ___ Curriculum Facilitator ___ Supervisor Plating [employer] Assembly ___ Other (describe below) Sacrament/Intervention _x__ Active listening ___ Anointing ___ Catholic _x__ Bereavement ___ Communion ___ Zehra exploration ___ _x__ Life review _x__ Prayer ___ Reconciliation ___ Sacrament of Sick _x__ Supportive presence ___ Wedding ___ Other (describe below) Pastoral Comments patient is remembering of this airport security screener from a previous admission; pt is talkative about her life situation, her husbands' will be honored in a couple of weeks locally and she talks about his life, their marriage, and his ministry as a thread grinder tool; pt states that she expects to go home to [place] and do fine; pt accepts a prayer for her healing;
[2024-11-24 14:08] VITALS: BP 136/68; PULSE 82; RESP 18; TEMP 37.1; O2SAT 98
== END 2024-11-24 14:43 | disposition home or self-care (01) | DRG 683 ==
LOC: ED 20:58 → MS3 21:26
PROVIDERS: Nurse Practitioner; Admitting Provider Internal Medicine; Emergency Provider Emergency Medicine; PCP Family Medicine; Referring Provider Internal Medicine; Visit Provider Internal Medicine
DX: N17.9 Acute kidney failure, unspecified (principal); E87.1 Hypo-osmolality and hyponatremia; N18.31 Chronic kidney disease, stage 3a; I12.9 Hypertensive chronic kidney disease with stage 1 through stage 4 chronic kidney disease, or unspecified chronic kidney disease; E03.9 Hypothyroidism, unspecified; F32.A Depression, unspecified; G62.9 Polyneuropathy, unspecified; E53.8 Deficiency of other specified B group vitamins; K21.9 Gastro-esophageal reflux disease without esophagitis; M54.50 Low back pain, unspecified; W01.198A Fall on same level from slipping, tripping and stumbling with subsequent striking against other object, initial encounter; M25.551 Pain in right hip; F41.9 Anxiety disorder, unspecified; E55.9 Vitamin D deficiency, unspecified; T36.8X5A Adverse effect of other systemic antibiotics, initial encounter; Y93.01 Activity, walking, marching and hiking; Y92.099 Unspecified place in other non-institutional residence as the place of occurrence of the external cause; G89.29 Other chronic pain; M81.0 Age-related osteoporosis without current pathological fracture; R26.89 Other abnormalities of gait and mobility; Z79.891 Long term (current) use of opiate analgesic; Z79.890 Hormone replacement therapy
CPT/HCPCS: 36415; 70450; 71045; 80048; 80053; 81001; 82607; 82746; 83735; 83930; 83935; 84100; 84443; 84484; 85025; 87631; 93005; 94668; 97116; 97161; 97165; 97530; 99285; P9612; A4216

== ENCOUNTER 2025-06-11 14:12 | Emergency (ER) | payer MEDICARE, SELFPAY ==
[2025-06-11 14:12] VITALS: BP 151/74; PULSE 76; RESP 16; TEMP 36.8; O2SAT 97; BMI 29.9
--- NOTE | 2025-06-11 16:08 | ED.RN ---
PT IN [facility] TO SEE DR AND UNABLE TO STAND ON SCALE/
--- NOTE | 2025-06-11 16:24 | RAD_ITS ---
PROCEDURE: HIP, UNI W/ PELVIS 2-3 VIEWS 06/11/2025 REASON FOR EXAM: HIP PAIN TECHNIQUE: Procedure Code: [facility] Modality: DX Procedure: HIP, UNI W/ PELVIS 2-3 VIEWS Laterality: Right COMPARISON: None FINDINGS: Osseous: There is a right total hip replacement with a cemented femoral stem and noncemented acetabular cup appearing to be in anatomic alignment. No evidence of component loosening. The femoral head is centered to the acetabular cup without evidence of asymmetric liner wear. Partially visualized is a distal femoral metallic component and associated intramedullary cement extending below the level of this exam. Incompletely visualized is spinal fixation hardware extending above the level of this exam. No radiographic evidence of an acute displaced fracture is seen. No bone lesion or periosteal reaction is seen. If there is suspicion for infection in this patient, consider nuclear medicine white blood cell scan. Soft tissues: Soft tissue injury is not reliably assessed by this technique. RAD/HIP, UNI W/ Pelvis 2-3 Views IMPRESSION: No radiographic evidence of an acute osseous abnormality. - Findings and recommendations discussed above. Reading Location: [id number]
--- NOTE | 2025-06-11 17:02 | EDS_ITS ---
HPI History of Present Illness Chief Complaint: Lower Extremity Injury Narrative Narrative: Patient is a 89-year-old female presenting to the emergency department for right hip pain. Patient has past medical history as below including osteoarthritis of her right hip, low back pain and a prior right hip fracture with surgical repair. Patient states that for the past 5 days she has had pain in her right hip. She has been on ciprofloxacin for UTI and has finished this prescription. She thinks that the ciprofloxacin caused her scar tissue to act up in her right hip. She denies any fever or chills. She ambulates with a rollator. Denies any pain that radiates down her leg. Denies any weakness or numbness in her right leg. Denies any new back pain from baseline. Has been taking her tramadol for pain control at home. Denies any falls or trauma to her hip. [facility] Medical History Irritable bowel syndrome Spinal stenosis of lumbar region History of recent fall Wears hearing aid in both ears Hearing loss, left Hearing loss, right Anemia Anxiety Depression Hypothyroidism Chronic pain Osteoporosis GI bleed GERD (gastroesophageal reflux disease) Wears hearing aid History of depression Alcohol use Walker as ambulation aid Dietary restriction History of hiatal hernia History of GI bleed Celiac disease Gastric reflux Non-smoker Hoarseness History of stress test History of rheumatic fever Thyroid disease Osteoporosis Hypertension Osteoporosis Home Medications ?Medication ?Instructions ?Recorded ?Last Taken ?Type amitriptyline 25 mg tablet 25 mg PO QHS Mood 08/16/20 10/03/23 History azelastine 137 mcg (0.1 %) nasal 1 spray NASAL BID SIN US 08/16/20 10/04/23 History spray fluticasone propionate 50 1 spray NASAL BID allergies 08/16/20 10/04/23 History mcg/actuation nasal spray,suspension tramadol 50 mg tablet 50 mg PO Q8H Pain 11/09/20 1 12/05/22 History levothyroxine 75 mcg tablet 75 mcg PO DAILY@0600 Thyro id #30 11/25/20 10/04/23 Rx tabs lisinopril 20 mg tablet 20 mg PO DAILY BP 01/30/21 1 12/05/22 History Held on 11/24/24. Instructions: Hold today and start tomorrow with lower dose 10 mg daily. gabapentin 300 mg capsule 300 mg PO TID pain 07/04/24 Unknown History trazodone 50 mg tablet 50 mg PO QHS sleep 07/04/24 Unknown History cholecalciferol (vitamin D3) 125 125 mcg PO DAILY supp lement #0 caps 07/07/24 Unknown Rx mcg (5,000 unit) capsule cephalexin 500 mg capsule 500 mg PO DAILY UTI preventi on 11/22/24 Unknown History acetaminophen 500 mg tablet 500 mg PO Q8H PRN PRN arth ritis 11/24/24 Unknown Rx pain #0 tabs cyanocobalamin (vitamin B-12) 1,000 mcg PO DAILY #30 t abs 11/24/24 Unknown Rx 1,000 mcg tablet pantoprazole 40 mg tablet,delayed 40 mg PO DAILY GERD 30 days #0 tabs 11/24/24 10/04/23 Rx release Allergy/AdvReac Type Severity Reaction Status Date / Time meperidine (From Demerol) Allergy Unknown NEEDS Verified 06/11/25 14:12 FOLLOW-UP morphine Allergy Unknown NEEDS Verified 06/11/25 14:12 FOLLOW-UP gluten Allergy Food Verified 06/11/25 14:12 Allergy grass pollen-perennial rye, Allergy sinus Verified 06/11/25 14:12 standar (grass pressure poll-perennial rye,std) nitrofurantoin AdvReac Mild Other Verified 06/11/25 14:12 house dust AdvReac Other Verified 06/11/25 14:12 lactose AdvReac Food Verified 06/11/25 14:12 Allergy mold AdvReac Other Verified 06/11/25 14:12 Surgical History S/P hysterectomy History of appendectomy History of biopsy of bladder History of bilateral salpingo-oophorectomy (BSO) History of cystostomy History of shoulder surgery History of right knee surgery History of back surgery History of hysterectomy History of cholecystectomy Social History household members: spouse housing: assisted living facility current occupational status: retired Smoking Status: Never smoker alcohol intake: never ROS ROS ED ROS Narrative see HPI EXAM Physical Exam Narrative Exam Narrative: Vital signs: Reviewed General: Alert and orientedx3. No acute distress HEENT: Head is normocephalic and atraumatic, sinuses nontender, pupils equal round and reactive. Nares are patent. Oropharynx and throat exams normal. Neck: Supple without lymphadenopathy nontender Cardiovascular: Regular rate and rhythm, no murmurs. No rubs or gallops. Normal S1 and S2 Respiratory: Clear to auscultation bilaterally. No wheezes, rales, rhonchi Abdominal: Soft and nontender. Normal bowel sounds. No guarding or rebound. Nonsurgical abdomen Extremities: Right hip with no tenderness to palpation AP or laterally. There is no overlying skin changes. No erythema, warmth. She is able to flex and extend at hip without difficulty. Able to flex and extend at knee without difficulty or pain. DP and PT pulses intact in the right lower extremity. S ensation intact. Skin: No rash or redness. Neurological: Cranial nerves II through XII are grossly intact. Normal strength and sensation. Normal cerebellar function The rest of the physical exam is unremarkable Const Vital Signs: 06/11/25 14:12 Temperature 98.3 F Temperature Source Oral Pulse Rate 76 Respiratory Rate 16 Blood Pressure 151/74 H Blood Pressure Mean 99 Pulse Ox 97 Oxygen Delivery Method Room Air MDM MDM MDM Narrative Medical decision making narrative: Patient is a 89-year-old female presenting emergency department for right hip pain. Patient was seen and examined. Vitals are stable. Patient resting bed comfortably in no acute distress. Physical exam is unremarkable. She is able to flex and extend at the hip and knee without difficulty. There is no pain with these movements. There is no erythema or warmth of the hip. Low concern for septic joint. She has had no falls or trauma to her hip. Doubt fracture or dislocation. Likely this is musculoskeletal however will obtain a right hip x-ray given her age. X-ray reviewed by myself. No dislocation or fracture noted. Radiology read with no acute osseous abnormality. Patient able to ambulate. Encouraged to continue taking her pain medications at home as she has been. Given strict return precautions. Patient and daughter feel comfortable with the plan. Encouraged follow-up with PCP as soon as possible. Patient discharged from the Emergency Department. I do not feel that the patient's evaluation reveals any acute reason for admission at this time. I instructed them to either follow-up with their primary care physician or promptly return to the Emergency Department for reevaluation should symptoms worsen or new symptoms develop. I explained what symptoms would indicate the need to return to the emergency department. Shared decision making was used. The patient voiced understanding of the treatment plan and is agreeable with it. Clinical impression Right hip pain History & Record Review Discussion w/independent historian: Patient and Family Radiography Diagnostic Testing: Clinical Impression(s) from Imaging Studies Hip/Pelvis X-Ray 06/11/25 16:24 IMPRESSION: No radiographic evidence of an acute osseous abnormality. - Findings and recommendations discussed above. Reading Location: [id number] Discharge Plan Triage Chief Complaint: Lower Extremity Injury ED Provider: Myrtle Sullivan Dx/Rx/DC Orders Clinical Impression: Acute pain of right hip Instructions: ED Hip Strain Prescriptions: No Action amitriptyline 25 MG tablet 25 mg PO QHS azelastine 1 SPRAY aerosol,spray 1 spray NASAL BID fluticasone propionate 1 SPRAY spray,suspension 1 spray NASAL BID tramadol 50 MG tablet 50 mg PO Q8H levothyroxine 75 MCG tablet 75 mcg PO DAILY@0600 Qty: 30 0RF lisinopril 20 MG tablet 20 mg PO DAILY trazodone 50 mg tablet 50 mg PO QHS gabapentin 300 mg capsule 300 mg PO TID cholecalciferol (vitamin D3) 125 mcg (5,000 unit) Capsule 125 mcg PO DAILY Qty: 0 0RF cephalexin 500 mg capsule 500 mg PO DAILY acetaminophen 500 mg Tablet 500 mg PO Q8H PRN PRN (Reason: arthritis pain) Qty: 0 0RF pantoprazole 40 MG tablet 40 mg PO DAILY 30 Days Qty: 0 0RF cyanocobalamin (vitamin B-12) 1,000 mcg tablet 1,000 mcg PO DAILY Qty: 30 0RF Primary Care Provider: Roma Grajeda Referrals: Roma Grajeda DO [Primary Care Provider] - 2 Days Activity Restrictions/Additional Instructions: Your evaluation in the Emergency Department did not reveal any acute reason for admission. However, I want to emphasize that you may be early in the course of a disease process or illness even if it is not present. For this reason you should follow-up within 24 hours for reevaluation with either your primary care physician or if necessary back here in the Emergency Department. You should return to the Emergency Department immediately if your symptoms worsen or new symptoms develop. Print Language: Pashto Disposition Disposition: Home, Self Care
[2025-06-11 17:14] VITALS: BP 159/74; PULSE 75; RESP 16; TEMP 36.8; O2SAT 100
== END 2025-06-11 17:16 | disposition home or self-care (01) ==
PROVIDERS: Emergency Provider Student in an Organized Health Care Education/Training Program; PCP Family Medicine; Visit Provider Student in an Organized Health Care Education/Training Program
DX: M25.551 Pain in right hip (principal); G89.29 Other chronic pain; M16.11 Unilateral primary osteoarthritis, right hip; I10 Essential (primary) hypertension; M54.50 Low back pain, unspecified; H91.93 Unspecified hearing loss, bilateral; Z79.890 Hormone replacement therapy; Z79.891 Long term (current) use of opiate analgesic; Z79.899 Other long term (current) drug therapy
CPT/HCPCS: 73502; 99282

== ENCOUNTER 2025-06-24 10:40 | Observation (INO) | payer MEDICARE, SELFPAY ==
[2025-06-24] VITALS (8 sets, daily range): BP systolic 101–157; BP diastolic 48–72; PULSE 63–76; RESP 10–18; TEMP 36.4–36.7; O2SAT 95–100; BMI 32.2
--- NOTE | 2025-06-24 10:52 | EKG12_ITS ---
Test Reason : PALPS Blood Pressure : */* mmHG Vent. Rate : 62 BPM Atrial Rate : 62 BPM P-R Int : 160 ms QRS Dur : 84 ms QT Int : 434 ms P-R-T Axes : 54 -28 26 degrees QTcB Int : 440 ms Normal sinus rhythm Minimal voltage criteria for LVH, may be normal variant ( R in aVL ) Possible Anterior infarct (cited on or before 28-May-2024) Abnormal ECG Confirmed by ORIN BECKWITH MD ([id number]), graphics editor RODNEY GUTIERREZ ([id number]) on 06/26/2025 10:31:46 AM Referred By: TB Confirmed By: ORIN BECKWITH MD
--- NOTE | 2025-06-24 10:53 | EDS_ITS ---
HPI History of Present Illness Chief Complaint: Syncope Detail of Chief Complaint: Near syncope Informant: patient Narrative Narrative: Patient presents to the emergency department with complaint of a near syncopal episode. She states that she believes this was another vagal episode. She was doing a puzzle when she felt the urge to use the restroom and she went to the bathroom and sat on the toilet initially for a short time. She was then was able to stand and pull her pants down and had a bowel movement. She then became acutely weak and sweaty and felt like she might pass out but does not think she passed out. She states she just did not feel well this morning somewhat weak. She denies chest pain or palpitations. She denies shortness of breath. She is currently feeling improved. She has had similar episodes in the past. Denies recent illness. Denies dysuria or urgency. She does have urinary frequency which is not uncommon [facility] Medical History Irritable bowel syndrome Spinal stenosis of lumbar region History of recent fall Wears hearing aid in both ears Hearing loss, left Hearing loss, right Anemia Anxiety Depression Hypothyroidism Chronic pain Osteoporosis GI bleed GERD (gastroesophageal reflux disease) Wears hearing aid History of depression Alcohol use Walker as ambulation aid Dietary restriction History of hiatal hernia History of GI bleed Celiac disease Gastric reflux Non-smoker Hoarseness History of stress test History of rheumatic fever Thyroid disease Osteoporosis Hypertension Osteoporosis Home Medications ?Medication ?Instructions ?Recorded ?Last Taken ?Type amitriptyline 25 mg tablet 25 mg PO QHS Mood 08/16/20 10/03/23 History azelastine 137 mcg (0.1 %) nasal 1 spray NASAL BID SIN US 08/16/20 10/04/23 History spray fluticasone propionate 50 1 spray NASAL BID allergies 08/16/20 10/04/23 History mcg/actuation nasal spray,suspension tramadol 50 mg tablet 50 mg PO Q8H Pain 11/09/20 1 12/05/22 History levothyroxine 75 mcg tablet 75 mcg PO DAILY@0600 Thyro id #30 11/25/20 10/04/23 Rx tabs lisinopril 20 mg tablet 20 mg PO DAILY BP 01/30/21 1 12/05/22 History Held on 11/24/24. Instructions: Hold today and start tomorrow with lower dose 10 mg daily. gabapentin 300 mg capsule 300 mg PO TID pain 07/04/24 Unknown History trazodone 50 mg tablet 50 mg PO QHS sleep 07/04/24 Unknown History cholecalciferol (vitamin D3) 125 125 mcg PO DAILY supp lement #0 caps 07/07/24 Unknown Rx mcg (5,000 unit) capsule cephalexin 500 mg capsule 500 mg PO DAILY UTI preventi on 11/22/24 Unknown History acetaminophen 500 mg tablet 500 mg PO Q8H PRN PRN arth ritis 11/24/24 Unknown Rx pain #0 tabs cyanocobalamin (vitamin B-12) 1,000 mcg PO DAILY #30 t abs 11/24/24 Unknown Rx 1,000 mcg tablet pantoprazole 40 mg tablet,delayed 40 mg PO DAILY GERD 30 days #0 tabs 11/24/24 10/04/23 Rx release Allergy/AdvReac Type Severity Reaction Status Date / Time meperidine (From Demerol) Allergy Unknown NEEDS Verified 06/11/25 14:12 FOLLOW-UP morphine Allergy Unknown NEEDS Verified 06/11/25 14:12 FOLLOW-UP gluten Allergy Food Verified 06/11/25 14:12 Allergy grass pollen-perennial rye, Allergy sinus Verified 06/11/25 14:12 standar (grass pressure poll-perennial rye,std) nitrofurantoin AdvReac Mild Other Verified 06/11/25 14:12 house dust AdvReac Other Verified 06/11/25 14:12 lactose AdvReac Food Verified 06/11/25 14:12 Allergy mold AdvReac Other Verified 06/11/25 14:12 Surgical History S/P hysterectomy History of appendectomy History of biopsy of bladder History of bilateral salpingo-oophorectomy (BSO) History of cystostomy History of shoulder surgery History of right knee surgery History of back surgery History of hysterectomy History of cholecystectomy Social History household members: spouse housing: assisted living facility current occupational status: retired Smoking Status: Never smoker alcohol intake: never ROS ROS ED ROS Narrative Near syncope, diaphoresis Review of Systems ROS Unobtainable: other Constitutional Constitutional ED: Reports lethargy; Denies chills, fever(s), sweats or weight loss Eyes Eyes: Denies blurry vision, change in vision or diplopia ENT ENT ED: Denies rhinorrhea or sore throat Cardiovascular Cardiovascular: Denies chest pain, orthopnea or racing heartbeat Respiratory/Chest Respiratory/Chest: Denies cough, dyspnea, dyspnea on exertion, orthopnea or sputum Gastrointestinal Gastrointestinal: Reports nausea; Denies abdominal pain, diarrhea or vomiting Genitourinary Genitourinary ED: Reports urinary frequency; Denies dysuria or hematuria Musculoskeletal Musculoskeletal: Denies arthralgias, back pain, myalgias or neck pain Integumentary Denies abscess, Abrasions or rash Neurologic Neurologic: Denies headache(s) or weakness Psychiatric Psychiatric: Denies anxiety, depression or suicidal thoughts Endocrine Endocrinology: Denies polydipsia, polyphagia or polyuria Hematologic/Lymphatic Hematologic/Lymphatic: Denies easy bleeding, easy bruising or lymphadenopathy Allergic/Immunologic Allergic/Immunologic ED: Denies mouth swelling, tongue swelling or urticaria EXAM Physical Exam Const Vital Signs: 06/24/25 10:42 06/24/25 10:47 06/24/25 12:00 Temperature 97.7 F L Temperature Source Oral Pulse Rate 76 63 Pulse Rate [Lying] Pulse Rate [Sitting (for 1 minute prior to obtaining)] Pulse Rate [Standing (for 1 minute prior to obtaining)] Respiratory Rate 12 10 L Respiratory Effort Normal Short of Breath Respiratory Pattern Normal Blood Pressure 101/48 L 129/60 H Blood Pressure [Lying] Blood Pressure [Sitting (for 1 minute prior to obtaining)] Blood Pressure [Standing (for 1 minute prior to obtaining)] Blood Pressure Mean 65 83 Blood Pressure Mean [Lying] Blood Pressure Mean [Sitting (for 1 minute prior to obtaining)] Blood Pressure Mean [Standing (for 1 minute prior to obtaining)] Pulse Ox 97 100 Oxygen Delivery Method Room Air Room Air 06/24/25 13:00 06/24/25 13:16 Temperature Temperature Source Pulse Rate 68 Pulse Rate [Lying] 69 Pulse Rate [Sitting (for 1 minute prior to obtaining)] 69 Pulse Rate [Standing (for 1 minute prior to obtaining)] 73 Respiratory Rate 14 Respiratory Effort Respiratory Pattern Blood Pressure 132/63 H Blood Pressure [Lying] 132/63 H Blood Pressure [Sitting (for 1 minute prior to obtaining)] 145/71 H Blood Pressure [Standing (for 1 minute prior to obtaining)] 141/64 H Blood Pressure Mean 86 Blood Pressure Mean [Lying] 86 Blood Pressure Mean [Sitting (for 1 minute prior to obtaining)] 95 Blood Pressure Mean [Standing (for 1 minute prior to obtaining)] 89 Pulse Ox 98 Oxygen Delivery Method Positive well nourished and well developed General Appearance ED: well developed and NAD HEENT Reports TM's clear and moist mucous membranes normocephalic and atraumatic; Negative for trauma or tenderness Tympanic Membrane ED: Yes TM's clear Eyes PERRL and EOMs intact bilaterally General Eye ED: Negative for pale conjunctiva or scleral icterus Neck no lymphadenopathy, supple and no JVD General: Negative for tenderness Chest Wall inspection of chest normal and palpation of chest normal Chest: Negative for tenderness Resp normal respiratory effort and clear to auscultation bilaterally Effort and Inspection: Negative for respiratory distress or pain with movement Auscultation: Negative for rhonchi, wheezes or diminished lung sounds Cardio regular rate, regular rhythm, S1 normal heart sound, S2 normal heart sound and no murmurs Peripheral Pulses: pulses 2+ throughout GI normal to inspection, nondistended, normoactive bowel sounds, soft to palpation, non-tender, non-distended and no masses Back/Spine no CVA tenderness and no thoracic nor lumbar tenderness Extremity normal to inspection General Extremety ED: Negative for edema General Extremity: Negative for edema Neuro oriented x3, CN's II-XII intact bilaterally, no sensory deficits noted and gait normal Sensorium / Orientation: awake, alert, oriented to person, oriented to place and oriented to time Motor Exam: strength 5/5 throughout and strength abnormal Psych mental status grossly normal Skin no rashes or lesions noted and no wounds MDM MDM MDM Narrative Medical decision making narrative: Patient presents with near syncopal episode and urinary frequency. History of vasovagal syncope. Clinically she looks well. I will establish. EKG obtained on arrival showed a sinus rhythm with a ventricular rate of 62 bpm with no acute ST segment changes. CBC with differential shows a white count of 6.3 with hemoglobin 10.8 and platelet count of 310. Chemistries unremarkable. BUN 31 and creatinine 1.17. Urinalysis with signs of infection with positive nitrites as well as 5 hide leukocyte esterase and 25-50 WBCs and no bacteria seen. Patient had urine culture sent and was started on Rocephin 1 g IV. Orthostatic vital signs were negative. Will discuss with hospitalist to evaluate patient for admission Lab Data Attestation: I reviewed the patient's lab results. Labs: Laboratory Results - last 24 hr 06/24/25 06/24/25 10:50 13:10 WBC 6.3 RBC 3.63 L Hgb 10.8 L Hct 34.5 L MCV 95.0 MCH 29.8 MCHC 31.3 L RDW Std Deviation 49.1 H RDW Coeff of [place] 13.9 Plt Count 310 MPV 9.0 Immature Gran % (Auto) 0.300 Neut % (Auto) 60.0 Lymph % (Auto) 26.2 [place] % (Auto) 10.0 Eos % (Auto) 2.7 Baso % (Auto) 0.8 Absolute Neuts (auto) 3.8 Absolute Lymphs (auto) 1.65 Nucleated RBC % 0 Sodium 134 Potassium 4.4 Chloride 98 Carbon Dioxide 23.2 Anion Gap 13 BUN 31 H Creatinine 1.17 Estim Creat Clear Calc 28.99 L Est GFR (MDRD) Non-Af 45 L BUN/Creatinine Ratio 26.2 H Glucose 138 H Calcium 9.3 Urine Color Yellow Urine Clarity Sl. Cloudy Urine pH 6.5 Ur Specific [place] 1.010 Urine Protein 30 H Urine Glucose (UA) Normal Urine Ketones Negative Urine Occult Blood 10 H Urine Nitrite Positive H Urine Bilirubin Negative Urine Urobilinogen Normal Ur Leukocyte Esterase 500 H Urine RBC 0 SEEN Urine WBC 25-50 SEEN Ur Squamous Epith Cells 5-10 SEEN Urine Bacteria 0 SEEN Urine Mucus 0 SEEN EKG Initial EKG: Attestation: I personally reviewed and interpreted this EKG as follows: Comments: Sinus rhythm with rate of 62 bpm with no acute ST segment changes Discharge Plan Dx/Rx/DC Orders Clinical Impression: Acute UTI, Near syncope Disposition Disposition: Acute Care [facility]
[2025-06-24 11:06] LABS: Hematocrit 34.5 % (37-47); Hemoglobin 10.8 g/dL (12.0-15.0); Immature Granulocytes Count 0.020 X10^3/uL (0.0-0.0); Mean Corp Hgb Conc 31.3 g/dL (32-36); Mean Corpuscular Volume 95.0 fL (81-99); Mean Platelet Vol. 9.0 fl (6.2-12.0); NRBC Flagged by Analyzer 0 % (0-5); Platelet Count 310 K/mm3 (150-450); RBC Distribution Width CV 13.9 % (11.6-14.6); RBC Distribution Width SD 49.1 fl (35.1-43.9); Red Blood Count 3.63 M/mm3 (4.2-5.4); White Blood Count 6.3 K/mm3 (4.4-11.0)
[2025-06-24] MEDS: 0.9% Normal Saline (1000mL) 1,000 ML 150 ML IV (11:32)
[2025-06-24 11:44] LABS: Anion Gap 13 (5-15); BUN 31 mg/dL (4-19); BUN/Creat Ratio 26.2 RATIO (10-20); Calcium,Total 9.3 mg/dL (7.6-11.0); Carbon Dioxide 23.2 mmol/L (21.0-32.0); Chloride 98 mmol/L (98-108); Estimated Creatinine Clearance 28.99 ml/min (50-250); Glucose 138 mg/dL (70-99); Potassium 4.4 mmol/L (3.3-5.1)
[2025-06-24 13:18] LABS: Mucous, Urine 0 SEEN /hpf (<or=2+); Red Blood Cells-Urine 0 SEEN /hpf (0-5)
[2025-06-24 13:21] LABS: Color, Urine Yellow (Yellow); Glucose, Dipstick Normal (Normal); Ketone-Dipstick Negative (Negative); Leukocyte Esterase-Dipstick 500 /ul (Negative); Nitrite-Dipstick Positive (Negative); Occult Blood-Urine 10 /ul (Negative); Protein-Dipstick 30 mg/dl (Negative); Specific Gravity, Urine 1.010 (1.002-1.030); Urine Bilirubin Dipstick Negative (Negative)
[2025-06-24 13:29] LABS: Squamous Epithelial Cells - UA 5-10 SEEN /hpf (5-10)
--- NOTE | 2025-06-24 14:06 | HP.PCM.HOS_ITS ---
HPI - General General Date of Admission: 06/24/25 Date of Service: 06/24/25 Chief Complaint: Generalized weakness HPI Narrative KAELA ALDANA, is a 89-year-old female with a history of hypothyroidism, GERD, hypertension presented [facility] ED 06/24/2025 with complaint of generalized weakness and vasovagal episode. She was doing a puzzle and felt the urge to use the restroom and when she went to the bathroom she then had a bowel movement and became acutely weak and sweaty and felt like she might pass out but does not think she lost consciousness. She also noted feeling generally weak today with urinary frequency. In the ED temp 97.7, heart rate 76, blood pressure 101/48, respiratory rate 11 pulse ox 97% on room air. Blood pressure improved to 130s to 140s and orthostats negative. CBC within normal limits and hemoglobin 10.8 which appears to be baseline. BUN 31 creatinine 1.17, glucose 138. UA with nitrite, leuk esterase, white cells, did not note bacteria but given symptoms and UA there is high suspicion for urinary tract infection especially given her history of recurrent UTIs. Patient still feeling generally weak, suspected due to UTI so hospitalist contacted for admission. Patient evaluated with son at bedside, reportedly she has been feeling pretty weak and tired today, did have the episode where she had small BM and then was pale and sweaty and nauseated which resolved. 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 Does note urinating almost constantly and has a history of recurrent urinary tract infections. Patient does not feel back to baseline as she still feels weak like she did this morning. Denies any fevers at home, reports for about 5 months she has had some vague left lower quadrant pain and frequently will have diarrhea though today she had formed stool. Denies any chest pain or shortness of breath, no headache or changes in vision. No nausea or vomiting, no other new or acute complaints [facility] Medical History Irritable bowel syndrome Spinal stenosis of lumbar region History of recent fall Wears hearing aid in both ears Hearing loss, left Hearing loss, right Anemia Anxiety Depression Hypothyroidism Chronic pain Osteoporosis GI bleed GERD (gastroesophageal reflux disease) Wears hearing aid History of depression Alcohol use Walker as ambulation aid Dietary restriction History of hiatal hernia History of GI bleed Celiac disease Gastric reflux Non-smoker Hoarseness History of stress test History of rheumatic fever Thyroid disease Osteoporosis Hypertension Osteoporosis Home Medications ?Medication ?Instructions ?Recorded ?Last Taken ?Type amitriptyline 25 mg tablet 25 mg PO QHS Mood 08/16/20 10/03/23 History azelastine 137 mcg (0.1 %) nasal 1 spray NASAL BID SIN US 08/16/20 10/04/23 History spray fluticasone propionate 50 1 spray NASAL BID allergies 08/16/20 10/04/23 History mcg/actuation nasal spray,suspension tramadol 50 mg tablet 50 mg PO Q8H Pain 11/09/20 1 12/05/22 History levothyroxine 75 mcg tablet 75 mcg PO DAILY@0600 Thyro id #30 11/25/20 10/04/23 Rx tabs lisinopril 20 mg tablet 20 mg PO DAILY BP 01/30/21 1 12/05/22 History Held on 11/24/24. Instructions: Hold today and start tomorrow with lower dose 10 mg daily. gabapentin 300 mg capsule 300 mg PO TID pain 07/04/24 Unknown History trazodone 50 mg tablet 50 mg PO QHS sleep 07/04/24 Unknown History cholecalciferol (vitamin D3) 125 125 mcg PO DAILY supp lement #0 caps 07/07/24 Unknown Rx mcg (5,000 unit) capsule cephalexin 500 mg capsule 500 mg PO DAILY UTI preventi on 11/22/24 Unknown History cyanocobalamin (vitamin B-12) 1,000 mcg PO DAILY #30 t abs 11/24/24 Unknown Rx 1,000 mcg tablet acetaminophen 500 mg tablet 1,000 mg PO Q8H PRN PRN ar thritis 06/24/25 Unknown History pain amlodipine 2.5 mg tablet 2.5 mg PO DAILY 06/24/25 Unk nown History cetirizine 10 mg capsule (Allergy 10 mg PO DAILY aller gies 06/24/25 Unknown History Relief (cetirizine)) cyclobenzaprine 10 mg tablet 10 mg PO TID PRN muscle s pasms 06/24/25 Unknown History hyoscyamine sulfate 0.125 mg tablet 0.125 mg PO TID MO N abd cramping 06/24/25 Unknown History pantoprazole 40 mg tablet,delayed 40 mg PO Q12H GERD 0 06/24/25 Unknown History release Allergy/AdvReac Type Severity Reaction Status Date / Time meperidine (From Demerol) Allergy Unknown NEEDS Verified 06/11/25 14:12 FOLLOW-UP morphine Allergy Unknown NEEDS Verified 06/11/25 14:12 FOLLOW-UP gluten Allergy Food Verified 06/11/25 14:12 Allergy grass pollen-perennial rye, Allergy sinus Verified 06/11/25 14:12 standar (grass pressure poll-perennial rye,std) nitrofurantoin AdvReac Mild Other Verified 06/11/25 14:12 house dust AdvReac Other Verified 06/11/25 14:12 lactose AdvReac Food Verified 06/11/25 14:12 Allergy mold AdvReac Other Verified 06/11/25 14:12 Surgical History S/P hysterectomy History of appendectomy History of biopsy of bladder History of bilateral salpingo-oophorectomy (BSO) History of cystostomy History of shoulder surgery History of right knee surgery History of back surgery History of hysterectomy History of cholecystectomy Social History household members: spouse housing: assisted living facility current occupational status: retired Smoking Status: Never smoker alcohol intake: never ROS ROS Narrative General: Denies fever/chills HENT: Denies headache, denies stuffy nose, denies sore throat EYES: Denies changes in vision Resp: Denies cough, denies shortness of breath Cardiac: Denies chest pain GI: Intermittent vague left lower quadrant abdominal pain, frequent diarrhea but today had formed stool, no nausea or vomiting : Urinates very frequently Extremity: Denies swelling MSK: Generalized weakness Neuro: Denies any numbness/tingling Heme: Denies any specific bleeding or bruising Skin: Denies rashes Psychiatric: No complaints voiced Vital Signs Vital Signs Vital Signs: 06/24/25 10:42 06/24/25 10:47 06/24/25 12:00 Temperature 97.7 F L Temperature Source Oral Pulse Rate 76 63 Pulse Rate [Lying] Pulse Rate [Sitting (for 1 minute prior to obtaining)] Pulse Rate [Standing (for 1 minute prior to obtaining)] Respiratory Rate 12 10 L Respiratory Effort Normal Short of Breath Respiratory Pattern Normal Blood Pressure 101/48 L 129/60 H Blood Pressure [Lying] Blood Pressure [Sitting (for 1 minute prior to obtaining)] Blood Pressure [Standing (for 1 minute prior to obtaining)] Blood Pressure Mean 65 83 Blood Pressure Mean [Lying] Blood Pressure Mean [Sitting (for 1 minute prior to obtaining)] Blood Pressure Mean [Standing (for 1 minute prior to obtaining)] Pulse Ox 97 100 Oxygen Delivery Method Room Air Room Air 06/24/25 13:00 06/24/25 13:16 Temperature Temperature Source Pulse Rate 68 Pulse Rate [Lying] 69 Pulse Rate [Sitting (for 1 minute prior to obtaining)] 69 Pulse Rate [Standing (for 1 minute prior to obtaining)] 73 Respiratory Rate 14 Respiratory Effort Respiratory Pattern Blood Pressure 132/63 H Blood Pressure [Lying] 132/63 H Blood Pressure [Sitting (for 1 minute prior to obtaining)] 145/71 H Blood Pressure [Standing (for 1 minute prior to obtaining)] 141/64 H Blood Pressure Mean 86 Blood Pressure Mean [Lying] 86 Blood Pressure Mean [Sitting (for 1 minute prior to obtaining)] 95 Blood Pressure Mean [Standing (for 1 minute prior to obtaining)] 89 Pulse Ox 98 Oxygen Delivery Method Weight Weight: 69.9 kg Body Mass Index (BMI) 32.2 Physical Exam Narrative General: Alert, appears tired but not acutely distressed HEENT: Atraumatic, normocephalic Eyes: Anicteric, normal conjunctiva, extraocular movements grossly intact Neck: Supple Respiratory: No overt wheezes or rhonchi, normal respiratory effort Cardiovascular: Regular rate and rhythm GI: Soft, nontender, nondistended Extremities: No significant pitting edema Musculoskeletal: Moving all extremities Neuro: No overt focal neurological deficits Skin: No rashes appreciated Psych: Cooperative Results Lab / Micro Data 06/24/25 10:50 06/24/25 10:50 Labs: Laboratory Results - last 24 hr 06/24/25 10:50: WBC 6.3, RBC 3.63 L, Hgb 10.8 L, Hct 34.5 L, MCV 95.0, MCH 29.8, MCHC 31.3 L, RDW Std Deviation 49.1 H, RDW Coeff of [place] 13.9, Plt Count 310, MPV 9.0, Immature Gran % (Auto) 0.300, Neut % (Auto) 60.0, Lymph % (Auto) 26.2, [place] % (Auto) 10.0, Eos % (Auto) 2.7, Baso % (Auto) 0.8, Absolute Neuts (auto) 3.8, Absolute Lymphs (auto) 1.65, Nucleated RBC % 0, Sodium 134, Potassium 4.4, Chloride 98, Carbon Dioxide 23.2, Anion Gap 13, BUN 31 H, Creatinine 1.17, Estim Creat Clear Calc 28.99 L, Est GFR (MDRD) Non-Af 45 L, BUN/Creatinine Ratio 26.2 H, Glucose 138 H, Calcium 9.3 06/24/25 13:10: Urine Color Yellow, Urine Clarity Sl. Cloudy, Urine pH 6.5, Ur Specific [place] 1.010, Urine Protein 30 H, Urine Glucose (UA) Normal, Urine Ketones Negative, Urine Occult Blood 10 H, Urine Nitrite Positive H, Urine Bilirubin Negative, Urine Urobilinogen Normal, Ur Leukocyte Esterase 500 H, Urine RBC 0 SEEN, Urine WBC 25-50 SEEN, Ur Squamous Epith Cells 5-10 SEEN, Urine Bacteria 0 SEEN, Urine Mucus 0 SEEN Assessment & Plan Assessment/Plan (1) Generalized weakness: (2) Abnormal urinalysis: (3) Vasovagal near syncope: PLAN: Plan # Generalized weakness suspected due to UTI -UA with leuk esterase, white cells, nitrite, bacteria not reported however given her reports of very frequent urination with history of recurrent UTIs and generalized weakness do have high suspicion for UTI -Gentle IV fluids -Urine culture sent -Continue antibiotics, she has predominantly grown E. coli sensitive to Rocephin so this to be continued # Vasovagal syncope -Patient had episode earlier today consistent with vasovagal syncope and has had these episodes going back 15 years and reports these are the same symptoms she usually gets -Blood pressure stable, orthostats negative, patient normal sinus rhythm on telemetry and EKG with a QTc of 440 - No shortness of breath, leg swelling or signs or symptoms that would suggest DVT/PE - No chest pain or other signs or symptoms that suggest acute coronary etiology -do not think she needs further acute workup at this time given her history and the above -Follow-up with PCP on discharge # Frequent diarrhea -Patient reports some vague left lower quadrant pain for 5 months and usually has diarrhea however today had formed stool so will not obtain stool studies -Gentle IV fluids -Will check TSH and mag -May benefit from following up with GI on discharge for further evaluation workup given chronicity #Hypothyroidism -Continue Synthroid #GERD -Continue PPI #DVT ppx: SCDs uHma Khan MD Charges/Coding Visit Charges Inpatient E&M: 98073 Init Hosp L2
[2025-06-24] MEDS: 0.9% Normal Saline (1000mL) 1,000 ML 50 ML IV (14:38)
--- OUTSIDE RECORDS SUMMARY | 2025-06-24 18:29 | XMS RPT_ITS | CCD ---
Author Organization [facility] Care Team Providers Care Hand Ii Tube Bender Name Role Phone Marko CLAYRupinder Deneen Unavailable Unavailab Dr. Roma Talavera Primary Care Provider Dr. Quentin Melvin Emergency Provider Dr. Huma Khan Admit Provider Dr. Huma Khan Attending Provider Dr. Huma Khan Other Provider Dr. Roma Grajeda Primary Care Provider [phone] Dr. Quentin Melvin Emergency Provider Dr. Huma Khan Admit Provider Dr. Huma Khan Attending Provider Dr. Huma Khan Other Provider Dr. Roma Grajeda Primary Care Provider Dr. Nelson Holman Emergency Provider Dr. Joni Torres Admit Provider Unavailabl e Dr. Joni Torres Other Provider Unavailabl e Dr. Patricio Franz Attending Provider [phone] Dr. Patricio Franz Other Provider [phone] aWi Neal Attending Provider [phone] Wai Neal Other Provider [phone] Roma Grajeda DO Primary Care Provider JAZMIN DAVIES Referring Unavailable ZANE SOL Attending Unavailable ROMA GRAJEDA Primary Care Unavailable ZANE SOL Referring Unavailable MALYS, ROMA A Primary Care Unavailable Dr. Roma Grajeda DO Primary Care Provider Brenda LE, Dr. Carrillo Attending Provider [phone] Nate LE, Dr. Iraheta Emergency Provider Unavailab le de JuveJoni Consulting Unavailable de Juve, Joni Admitting Unavailable de JuveJoni Referring Unavailable Wai Neal Attending Unavailable Malys, Roma Primary Care Unavailable Tereletsky, Reinier Consulting Unavailable Malys, Roma Primary Care Unavailable de Juve, Joni Consulting Unavailable de Juve, Joni Admitting Unavailable Tereletsky, Reinier Attending Unavailable Tereletsky, Reinier Consulting Unavailable Saad Larose Attending Unavailable Malys, Roma Primary Care Unavailable Malys, Roma Primary Care Unavailable Tucker Nguyen Attending Unavailable de Juve, Joni Consulting Unavailable Malys, Roma Primary Care Unavailable de Juve, Joni Admitting Unavailable Tereletsky, Reinier Attending Unavailable de Juve, Joni Attending Unavailable Malys, Roma Primary Care Unavailable de Juve, Joni Consulting Unavailable de Juve, Joni Admitting Unavailable Wai Neal Attending Unavailable de Juve, Joni Referring Unavailable Tereletsky, Reinier Consulting Unavailable Ángel, Wai Consulting Unavailable de Juve, Joni Attending Unavailable Tereletsky, Reinier Attending Unavailable Malys, Roma Primary Care Unavailable Myrtle Sullivan Attending Unavailable Dr. Roma Grajeda DO Primary Care Physician Brenda LE, Dr. Carrillo Attending Physician Dr. Myrtle Sullivan MD Attending Physician Unavail Dr. Myrtle Toney MD Emergency Department Physici an Unavailable Dr. Biju Quezada DO Emergency Department Physici an Bill LE, Dr. Finn Admitting Physician [phone] Dr. Huma Khan MD Attending Physician Allergies Allergy Classification Reported Allergen(s) Allergy Type Date of Onset Reaction(s) Facility (1 source) Allergic rhinitis due to pollen; Translations: [HAY FEVER] allergy to substance [facility] Work Phone: (3 sources) Dust; Translations: [DUST] allergy to substance 05-04-20 14 sinus pressure [facility] Work Phone: (20 sources) Mold Extract; Translations: [MOLD] Drug Allergy 02-09-20 10 SINUS PRESSURE, Other [facility] Work Phone: Comment on above: SINUS PRESSURE (20 sources) Lactose; Translations: [LACTOSE] Drug Allergy 02-18-20 19 Unknown [facility] (20 sources) Wheat gluten extract; Translations: [GLUTEN] Drug Allergy 02-18-20 19 Other: See Comments [facility] (20 sources) grass pollen-perennial rye, standar; Translations: [grass pollen-perennial rye, standar] Allergy to substance 04-21-20 21 sinus pressure [facility] (19 sources) house dust allergenic extract; Translations: [HOUSE DUST] Drug Allergy 05-30-20 22 Other: See Comments [facility] Comment on above: SINUS PRESSURE (4 sources) Meperidine; Translations: [MEPERIDINE] Drug Allergy 11-22-19 25 Unknown [facility] (4 sources) Nitrofurantoin; Translations: [NITROFURANTOIN] Drug Allergy 07-05-20 24 Unknown [facility] Comment on above: per patient (2 sources) Penicillin G; Translations: [PENICILLIN G] Drug Allergy 11-27-19 25 Mental Status Change [facility] (2 sources) Sulfamethoxazole / Trimethoprim; Translations: [SULFAMETHOXAZOLE-TR IMETHOPRIM] Drug Allergy 11-27-19 25 Mental Status Change [facility] (2 sources) Morphine Drug Allergy 06-11-20 25 NEEDS FOLLOW-UP [facility] (1 source) Gluten Drug allergy (disorder) 06-11-20 [facility] (1 source) house dust allergenic extract Drug Allergy 06-11-20 25 [facility] (1 source) Lactose Drug Allergy 06-11-20 25 [facility] (1 source) Meperidine Drug Allergy 06-11-20 25 [facility] (1 source) Morphine Drug Allergy 06-11-20 25 [facility] (1 source) Nitrofurantoin Drug Allergy 06-11-20 25 [facility] Medications Current Medications Medication Drug Class(es) Dates Sig (Normalized) Sig (Original) acetaminophen 500 mg oral tablet (20 sources) Start: 06-24-2025 take 2 tablets by mouth every eight hours as needed for pain Acetaminophen 500 mg Tablet Active 1000 mg PO EVERY 8 HOURS NEEDED as needed for arthritis pain June 24, 2025 12:00am Complies with drug therapy Start: 11-24-2024 End: 06-24-2025 take 1 tablet by mouth every eight hours as needed for pain Acetaminophen 500 mg Tablet Discontinued 500 mg PO EVERY 8 HOURS NEEDED as needed for arthritis pain 0 0 November 24, 2024 12:54pm June 24, 2025 2:28pm Start: 11-22-2020 End: 11-24-2024 take 1-10 tablets by mouth every six hours as needed for pain Acetaminophen 500 MG tablet Discontinued 500 mg PO EVERY 6 HOURS NEEDED as needed for Pain 1-10 Or Fever November 22, 2020 1:00am November 24, 2024 12:54pm Start: 08-18-2020 End: 11-09-2020 Acetaminophen 325 MG tablet Discontinued 650 mg PO EVERY 6 HOURS NEEDED as needed for Pain Score 1-10/Temp > 100.7 F 0 August 18, 2020 1:00am November 09, 2020 5:10pm Start: 08-18-2020 End: 11-09-2020 take 650 mg by mouth every six hours as needed Acetaminophen Discontinued 650 MG PO EVERY 6 HOURS NEEDED August 18, 2020 1:00am November 09, 2020 5:10pm Start: 11-08-2017 End: 11-13-2017 take 2 tablets by mouth every eight hours Acetaminophen 500 MG tablet Discontinued 1000 mg PO EVERY 8 HOURS 90 0 November 08, 2017 1:00am November 13, 2017 6:42pm Start: 11-08-2017 End: 11-13-2017 take 1000 mg by mouth every eight hours Acetaminophen Discontinued 1000 MG PO EVERY 8 HOURS 90 November 08, 2017 1:00am November 13, 2017 6:42pm Start: 03-14-2017 End: 11-08-2017 Acetaminophen (Tylenol) 325 MG tablet Discontinued 650 mg PO EVERY 6 HOURS NEEDED as needed for Mild Pain (scale 0-3)/T>100.7 0 March 14, 2017 12:00am November 08, 2017 12:23pm Start: 09-08-2016 End: 11-08-2017 take 2 tablets by mouth every six hours Acetaminophen (Tylenol) 325 MG tablet Discontinued 650 mg PO EVERY 6 HOURS 90 0 September 08, 2016 1:00am March 14, 2017 10:07am Start: 07-17-2016 End: 09-08-2016 Acetaminophen (Tylenol) 325 MG tablet Discontinued 500 mg PO EVERY 6 HOURS NEEDED as needed for Pain July 17, 2016 3:47pm September 08, 2016 8:22am Start: 12-21-2015 End: 07-17-2016 take 2 tablets by mouth every six hours Acetaminophen (Tylenol) 325 MG tablet Discontinued 650 mg PO EVERY 6 HOURS 30 0 April 12, 2016 12:00am July 17, 2016 3:47pm Start: 05-04-2014 TYLENOL 500 MG /15ML LIQD every 8 hrs as needed ACETAMINOPHEN [id number] Roma Grajeda DO [id number] 200 actuat albuterol 0.09 mg/actuat metered dose inhaler (5 sources) beta2-Adrenergic Agonist Start: 11-12-2020 take 1 puff(s) by inhalation every four hours as needed Albuterol Sulfate Active 2 PUFF INHALATION EVERY 4 HOURS NEEDED November 12, 2020 12:00am amitriptyline hydrochloride 25 mg oral tablet (20 sources) Tricyclic Antidepressant Start: 08-16-2020 take 1 tablet by mouth at bedtime Amitriptyline 25 MG tablet Active 25 mg PO AT BEDTIME August 16, 2020 1:00am Mood Complies with drug therapy Start: 11-12-2017 End: 11-21-2017 take 1 tablet by mouth at bedtime as needed for sleep Amitriptyline 25 MG tablet Discontinued 25 mg PO AT BEDTIME as needed for sleep November 12, 2017 1:00am November 21, 2017 9:52pm Start: 04-24-2016 End: 07-11-2017 AMITRIPTYLINE HCL 10 MG TABS 1-2 tablets by mouth at night AMITRIPTYLINE HCL [id number] Reinier Nhan Daniel take 1 tablet by simon once daily at bedtime amitriptyline (ELAVIL) 50 mg tablet Take 50 mg by mouth daily at bedtime. Active amLODIPine 2.5 mg oral tablet (20 sources) Dihydropyridine Calcium Channel Buck Start: 06-24-2025 take 1 tablet by mouth once daily Amlodipine 2.5 mg tablet Active 2.5 mg PO DAILY June 24, 2025 12:00am Complies with drug therapy Start: 07-04-2024 End: 11-22-2024 take 1 tablet by mouth once daily Amlodipine 5 mg tablet Discontinued 5 mg PO DAILY July 04, 2024 12:00am November 22, 2024 11:45pm Start: 10-10-2023 take 10 mg by mouth once daily Amlodipine Active 10 MG PO DAILY October 10, 2023 1:00am Start: 08-16-2020 take 10 mg by mouth once daily Amlodipine Active 10 MG PO DAILY August 16, 2020 12:00am Start: 07-11-2017 AMLODIPINE BES YLATE TABS as directed AMLODIPINE BESYLATE TABS [id number] Rupinder Zhu LPN Start: 05-04-2014 End: 10-10-2023 take 1 tablet by mouth once daily Amlodipine 5 MG tablet Discontinued 5 mg PO DAILY August 16, 2020 1:00am October 10, 2023 8:56am BP Start: 05-04-2014 take 0.5 tablet by m outh once daily AMLODIPINE BESYLATE 5 MG TABS 1/2 tablet po daily AMLODIPINE BESYLATE [id number] Roma Grajeda DO ascorbic acid 1000 mg oral tablet (5 sources) Vitamin C Start: 11-09-2020 take 500 mg by mouth once daily Ascorbic Acid (Vitamin C) Active 500 MG PO DAILY November 09, 2020 12:00am azelastine hydrochloride 0.137 mg/actuat metered dose nasal spray (20 sources) Histamine-1 Receptor Antagonist Start: 08-16-2020 Azelastine 1 SPRAY aerosol,spray Active 1 NMA NASAL TWICE A DAY August 16, 2020 1:00am SINUS Complies with drug therapy Start: 08-16-2020 Azelastine Act tessa 1 SPRAY NASAL TWICE A DAY August 16, 2020 1:00am Start: 05-04-2014 take 2 spray(s) nasa l route twice daily AZELASTINE HCL 0.1 % SOLN 2 sprays each nostril twice daily AZELASTINE HCL [id number] Roma Grajeda DO Start: 05-04-2014 take 1 spray(s) nasa l route once daily AZELASTINE HCL 0.1 % SOLN 1 spray each nostril once daily at night AZELASTINE HCL [id number] Roma Grajeda DO Start: 05-04-2014 AZELASTINE HCL 0.1 % SOLN every night AZELASTINE HCL [id number] Roma Grajeda DO cephalexin 500 mg oral capsule (20 sources) Cephalosporin Antibacterial Start: 11-22-2024 take 1 capsule by mouth once daily Cephalexin 500 mg capsule Active 500 mg PO DAILY November 22, 2024 1:00am UTI prevention Complies with drug therapy Start: 07-04-2024 End: 07-07-2024 take 1 capsule by mouth once daily Cephalexin 250 mg capsule Discontinued 250 mg PO DAILY July 04, 2024 12:00am July 07, 2024 5:39pm Start: 07-04-2024 End: 07-07-2024 take 1 capsule by mouth every eight hours Cephalexin 500 mg capsule Discontinued 500 mg PO EVERY 8 HOURS July 04, 2024 12:00am July 07, 2024 5:39pm Start: 02-24-2020 End: 02-27-2020 take 1 capsule by mouth every twelve hours Cephalexin 500 MG capsule Discontinued 500 mg PO EVERY 12 HOURS 6 3 0 February 24, 2020 12:00am February 26, 2020 12:00am February 27, 2020 12:02am post-operative cetirizine hydrochloride 10 mg oral capsule (4 sources) Histamine-1 Receptor Antagonist Start: 06-24-2025 take 1 capsule by mouth once daily Cetirizine (Allergy Relief (Cetirizine)) 10 mg capsule Active 10 mg PO DAILY June 24, 2025 12:00am allergies Complies with drug therapy Start: 05-04-2014 take 1 tablet by simon th once daily ZYRTEC ALLERGY 10 MG TABS 1 tab po every night CETIRIZINE HCL [id number] Roma Grajeda DO Cetirizine (ZYRT EC) 10 mg cap Take by mouth. Active cholecalciferol 0.125 mg oral capsule (2 sources) Vitamin D Start: 07-07-2024 take 1 capsule by mouth once daily Cholecalciferol (Vitamin D3) 125 mcg (5,000 unit) Capsule Active 125 ug PO DAILY 0 0 July 07, 2024 12:00am supplement Complies with drug therapy Cholecalciferol (Vitamin D3) (Vitamin D3) 5,000 UNIT capsule (5 sources) Start: 11-09-2020 Cholecalcifero l (Vitamin D3) (Vitamin D3) 5,000 UNIT capsule Active 50 IU PO EVERY WEEK November 09, 2020 5:11pm Start: 11-09-2020 Cholecalcifero l (Vitamin D3) (Vitamin D3) 5,000 UNIT capsule Active 50 IU PO EVERY WEEK November 09, 2020 12:00am Start: 11-09-2020 Cholecalcifero l (Vitamin D3) (Vitamin D3) 5,000 UNIT capsule Active 50 IU PO EVERY WEEK November 09, 2020 1:00am cyclobenzaprine hydrochloride 10 mg oral tablet (1 source) Muscle Relaxant Start: 06-24-2025 take 1 tablet by mouth three times daily as needed for muscle spasms Cyclobenzaprine 10 mg tablet Active 10 mg PO THREE TIMES A DAY as needed for muscle spasms June 24, 2025 12:00am Complies with drug therapy famotidine 20 mg oral tablet (1 source) Histamine-2 Receptor Antagonist take 1 tablet by mouth twice daily famotidine (PEPCID) 20 mg tablet Take 20 mg by mouth twice daily. Active fluticasone propionate 0.05 mg/actuat metered dose nasal spray (20 sources) Corticosteroid Start: 08-16-2020 Fluticasone Propionate 1 SPRAY spray,suspension Active 1 NMA NASAL TWICE A DAY August 16, 2020 1:00am allergies Complies with drug therapy Start: 08-16-2020 Fluticasone Pr opionate Active 1 SPRAY NASAL TWICE A DAY August 16, 2020 1:00am Start: 05-04-2014 End: 12-20-2015 take 2 spray(s) nasal route once daily FLUTICASONE PROPIONATE 50 MCG/ACT SUSP 2 sprays each nostril once daily FLUTICASONE PROPIONATE [id number] Roma Grajeda DO Start: 02-08-2010 take 1 puff(s) nasal route onc e fluticasone propionate(FLONASE 50 MCG/ACTUATION NASAL SPRAY) One puff per nostril before lying down for bed. 0 02/08/2010 Active gabapentin 300 mg oral capsule (20 sources) Anti-epileptic Agent Start: 07-04-2024 take 1 capsule by mouth three times daily Gabapentin 300 mg capsule Active 300 mg PO THREE TIMES A DAY July 04, 2024 12:00am pain Complies with drug therapy Start: 10-10-2023 take 200 mg by mouth three times daily Gabapentin Active 200 MG PO THREE TIMES A DAY October 10, 2023 1:00am Start: 08-16-2020 End: 10-10-2023 take 1 capsule by mouth three times daily Gabapentin 300 MG capsule Discontinued 300 mg PO THREE TIMES A DAY August 16, 2020 1:00am October 10, 2023 8:57am neuopathy Start: 05-04-2014 take 1 capsule by mo [facility] once daily GABAPENTIN 300 MG CAPS 1 po every 6 hours daily GABAPENTIN [id number] Roma Grajeda DO Start: 05-04-2014 GABAPENTIN 300 MG CAPS every 8 hrs as needed GABAPENTIN [id number] Roma Grajeda DO hyoscyamine sulfate 0.125 mg oral tablet (5 sources) Start: 06-24-2025 take 1 tablet by mouth three times daily as needed Hyoscyamine Sulfate 0.125 mg tablet Active 0.125 mg PO THREE TIMES A DAY as needed for abd cramping June 24, 2025 12:00am Complies with drug therapy Start: 05-04-2014 End: 06-23-2014 take 1 tablet by mouth once daily HYOSCYAMINE SULFATE 0.125 MG TABS 1 PO daily HYOSCYAMINE SULFATE [id number] Roma Grajeda DO levothyroxine sodium 0.075 mg oral tablet (20 sources) l-Thyroxine Start: 11-25-2020 take 1 tablet by mouth once daily Levothyroxine 75 MCG tablet Active 75 ug PO DAILY@0600 30 0 November 25, 2020 1:00am Thyroid Complies with drug therapy Start: 11-22-2020 End: 11-25-2020 take 1 tablet by mouth once daily Levothyroxine 50 MCG tablet Discontinued 50 ug PO DAILY November 22, 2020 1:00am November 25, 2020 10:09am THYROID Start: 12-07-2014 [facility] LEVOTHYROXINE SODIUM 50 MCG TABS 1 po daily in AM on empty stomach LEVOTHYROXINE SODIUM [id number] Roma Justin GerardoDO ananth Start: 02-08-2010 levothyroxine sodium(SYNTHROID 25 MCG TAB) Take one(1) tablet daily. 0 02/08/2010 Active miconazole nitrate 0.02 mg/mg topical powder (5 sources) Azole Antifungal Start: 08-27-2021 Miconazole Ni trate Active 1 APPLIC TOPICAL TWICE A DAY 85 August 27, 2021 12:00am apply twice daily x 2 weeks pantoprazole 40 mg delayed release oral tablet (20 sources) Proton Pump Inhibitor Start: 06-24-2025 take 1 tablet by mouth every twelve hours Pantoprazole 40 MG tablet Active 40 mg PO Q12H June 24, 2025 12:00am GERD Complies with drug therapy Start: 11-24-2024 End: 06-24-2025 take 1 tablet by mouth once daily Pantoprazole 40 MG tablet Discontinued 40 mg PO DAILY 0 30 0 November 24, 2024 12:58pm June 24, 2025 2:28pm GERD Start: 11-22-2020 End: 11-24-2024 take 1 tablet by mouth twice daily Pantoprazole 40 MG tablet Discontinued 40 mg PO TWICE A DAY November 22, 2020 1:00am November 24, 2024 12:58pm GERD Start: 11-13-2017 End: 11-05-2018 take 1 tablet by mouth twice daily Pantoprazole 40 MG tablet Discontinued 40 mg PO TWICE A DAY 60 0 November 21, 2017 9:52pm November 05, 2018 3:04pm acid reflux tiZANidine 2 mg oral capsule (3 sources) Central alpha-2 Adrenergic Agonist Start: 02-07-2022 take 2 mg by mouth every eight hours Tizanidine Active 2 MG PO Q8H February 06, 2022 11:00pm traMADol hydrochloride 50 mg oral tablet (20 sources) Opioid Agonist Start: 11-09-2020 take 1 tablet by mouth every eight hours Tramadol 50 MG tablet Active 50 mg PO Q8H November 09, 2020 1:00am Pain Complies with drug therapy Start: 08-16-2020 End: 08-18-2020 take 1 tablet by mouth three times daily Tramadol 50 MG tablet Discontinued 50 mg PO THREE TIMES A DAY August 16, 2020 1:00am August 18, 2020 11:37am pain Start: 02-17-2019 End: 10-10-2019 take 1 tablet by mouth three times daily Tramadol 50 MG tablet Discontinued 50 mg PO THREE TIMES A DAY February 17, 2019 12:00am October 10, 2019 4:55pm Pain Start: 10-23-2017 End: 11-08-2017 take 1 tablet by mouth three times daily Tramadol 50 MG tablet Discontinued 50 mg PO THREE TIMES A DAY October 23, 2017 1:00am November 08, 2017 12:23pm PAIN Start: 04-11-2016 End: 04-12-2016 take 1 tablet by mouth three times daily Tramadol 50 MG tablet Discontinued 50 mg PO THREE TIMES A DAY April 11, 2016 12:00am April 12, 2016 10:39am Start: 05-04-2014 End: 12-21-2015 take 1 tablet by mouth every eight hours as needed for pain Tramadol 50 MG tablet Discontinued 50 mg PO EVERY 8 HOURS NEEDED as needed for Pain December 31, 2014 12:00am December 21, 2015 4:47pm Start: 05-04-2014 End: 03-14-2017 take 1 tablet by mouth every six hours as needed Tramadol 50 MG tablet Discontinued 50 mg PO EVERY 6 HOURS NEEDED as needed for BREATHING March 09, 2017 12:00am March 14, 2017 10:09am Start: 05-04-2014 ULTRAM TABS 1 tab every 8 hrs TRAMADOL HCL TABS [id number] Roma Grajeda DO Start: 02-08-2010 TRAMADOL 50 MG TAB Indications: LBP (low back pain) , Myalgia and myositis , Right knee pain , Status post laminectomy with spinal fusion , Displacement of lumbar intervertebral disc without myelopathy Take half (1/2) to one(1) tablet every six(6) hours as needed for pain. 60 0 02/08/2010 Active traZODone hydrochloride 50 mg oral tablet (20 sources) Serotonin Reuptake Inhibitor Start: 07-04-2024 take 1 tablet by mouth at bedtime Trazodone 50 mg tablet Active 50 mg PO AT BEDTIME July 04, 2024 12:00am sleep Complies with drug therapy Start: 08-16-2020 End: 10-10-2023 take 1 tablet by mouth at bedtime Trazodone 50 MG tablet Discontinued 50 mg PO AT BEDTIME August 16, 2020 1:00am October 10, 2023 8:57am sleep Start: 05-04-2014 End: 07-11-2017 take 1 tablet by mouth once daily TRAZODONE HCL 50 MG TABS One tablet by mouth daily at night TRAZODONE HCL [id number] Reinier Sanchez DO vitamin b12 1 mg oral tablet (2 sources) Vitamin B12 Start: 11-24-2024 take 1 tablet by mouth once daily Cyanocobalamin (Vitamin B-12) 1,000 mcg tablet Active 1000 ug PO DAILY 30 November 24, 2024 1:00am Complies with drug therapy Completed/Discontinued Medications Medication Drug Class(es) Dates Sig (Normalized) Sig (Original) acetaminophen 300 mg / codeine phosphate 30 mg oral tablet (19 sources) Opioid Agonist Start: 11-12-2018 End: 11-19-2018 Acetaminophen-Codei ne 1 EACH tablet Discontinued 1 NMA PO 4 TIMES DAILY NEEDED as needed for Pain 20 7 0 November 12, 2018 1:39pm November 18, 2018 1:00am November 19, 2018 1:08am 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 Start: 11-12-2018 End: 11-19-2018 Acetaminophen-Codeine Discon tinued 1 EACH PO 4 TIMES DAILY NEEDED 20 7 November 12, 2018 1:39pm November 19, 2018 1:08am acetaminophen 325 mg / HYDROcodone bitartrate 5 mg oral tablet (20 sources) Opioid Agonist Start: 07-07-2024 End: 11-22-2024 Hydrocodone-Acetaminophen 5- 325 mg tablet Discontinued 1 {tbl} PO EVERY 6 HOURS as needed for pain 20 5 0 July 07, 2024 November 22, 2024 9:21pm Fracture of right acetabulum Start: 02-24-2020 End: 03-02-2020 Hydrocodone-Acetaminophen 1 TABLET tablet Discontinued 1 {tbl} PO EVERY 4 HOURS NEEDED as needed for Pain 10 7 February 24, 2020 March 01, 2020 12:00am March 02, 2020 12:02am 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 Start: 02-24-2020 End: 03-02-2020 take 1 tablet by mouth every four hours as needed Hydrocodone-Acetaminophen Discontinued 1 TABLET PO EVERY 4 HOURS NEEDED 10 7 February 23, 2020 May 26th, 2020 12:02am Start: 09-18-2019 End: 10-17-2019 Hydrocodone-Acetaminophen 1 TABLET tablet Discontinued 1 {tbl} PO EVERY 4 HOURS NEEDED as needed for Pain 42 7 0 October 10, 2019 October 16, 2019 1:00am October 17, 2019 1:09am Closed fracture of left ankle Other fracture of left lower leg, initial encounter for closed fracture Start: 09-18-2019 End: 10-17-2019 take 1 tablet by mouth every four hours as needed Hydrocodone-Acetaminophen Discontinued 1 TABLET PO EVERY 4 HOURS NEEDED 42 7 October 10, 2019 October 17, 2019 1:09am ALUM & MAG HYDROXIDE-SIMETH SUSP (2 sources) Start: 05-04-2014 End: 12-14-2015 MYLANTA SUSP two tsp as need ed ALUM & MAG HYDROXIDE-SIMETH SUSP [id number] Roma Grajeda DO Start: 05-04-2014 MYLANTA SUSP t wo tsp as needed ALUM & MAG HYDROXIDE-SIMETH SUSP [id number] Roma Grajeda DO amoxicillin 875 mg oral tablet (20 sources) Penicillin-class Antibacterial Start: 03-10-2017 End: 03-14-2017 take 1 tablet by mouth twice daily Amoxicillin 875 MG tablet Discontinued 875 mg PO TWICE A DAY March 10, 2017 12:00am March 14, 2017 10:07am Start: 08-19-2014 End: 08-26-2014 take 1 tablet by mouth three times daily AMOXICILLIN 500 MG CAPS One tablet by mouth three times daily for bladder infection AMOXICILLIN [id number] Reinier Sanchez DO amoxicillin 875 mg / clavulanate 125 mg oral tablet (16 sources) Penicillin-class Antibacterial Start: 12-10-2022 End: 09-28-2023 take 1 tablet by mouth twice daily Amoxicillin-Pot Clavulanate 875-125 mg tablet Discontinued 1 {tbl} PO TWICE A DAY 13 6 0 December 10, 2022 1:00am September 28, 2023 6:00pm First dose night of 12/10/22 Start: 12-10-2022 End: 09-28-2023 take 1 tablet by mouth twice daily Amoxicillin-Pot Clavulanate Discontinued 1 TABLET PO TWICE A DAY 13 6 December 10, 2022 1:00am September 28, 2023 6:00pm First dose night of 12/10/22 Start: 12-07-2014 End: 12-21-2014 take 1 tablet by mouth twice daily AMOXICILLIN-POT CLAVULANATE 875-125 MG TABS 1 po Twice daily x 10 days AMOXICILLIN-POT CLAVULANATE [id number] Roma Grajeda DO aspirin 81 mg delayed release oral tablet (19 sources) Platelet Aggregation Inhibitor, Nonsteroidal Anti-inflammatory Drug Start: 10-23-2017 End: 11-08-2017 take 1 tablet by mouth once daily Aspirin 81 MG tablet Discontinued 81 mg PO DAILY@0800 October 23, 2017 1:00am November 08, 2017 12:23pm [facility] benoxinate hydrochloride 4 mg/ml / fluorescein sodium 3 mg/ml ophthalmic solution (1 source) Diagnostic Dye Start: 11-27-2024 End: 11-27-2024 fluorescein-benox inate 0.3-0.4 % 1 Drop (FLURESS) bismuth subsalicylate 262 mg chewable tablet (19 sources) Bismuth Start: 09-18-2019 End: 10-10-2019 take 1 tablet by mouth once daily as needed Bismuth Subsalicylate 262 MG tablet,chewable Discontinued 262 mg PO DAILY NEEDED as needed for Upset stomach September 18, 2019 1:00am October 10, 2019 4:55pm calcium carbonate 1500 mg oral tablet (2 sources) Start: 05-04-2014 End: 12-14-2015 CALCIUM CARBONATE 1500 (600 Ca) MG TABS daily CALCIUM CARBONATE [id number] Roma Grajeda DO calcium carbonate 1250 mg / cholecalciferol 125 unt oral tablet (1 source) Vitamin D Start: 07-11-2017 CALCIUM 500 + D TABS as directed CALCIUM CARBONATE-VITAMIN D TABS [id number] Rupinder Zhu LPN cefdinir 300 mg oral capsule (20 sources) Cephalosporin Antibacterial Start: 10-04-2023 End: 10-10-2023 take 1 capsule by mouth every twelve hours Cefdinir 300 mg Capsule Discontinued 300 mg PO EVERY 12 HOURS 0 5 0 October 04, 2023 1:00am October 10, 2023 8:57am Antibiotic Start: 08-18-2020 End: 08-23-2020 take 1 capsule by mouth twice daily Cefdinir 300 MG capsule Discontinued 300 mg PO TWICE A DAY 10 5 0 August 18, 2020 1:00am August 22, 2020 1:00am August 23, 2020 1:02am ciprofloxacin 250 mg oral tablet (17 sources) Quinolone Antimicrobial Start: 07-07-2024 End: 11-22-2024 take 1 tablet by mouth twice daily Ciprofloxacin Hcl 250 mg Tablet Discontinued 250 mg PO TWICE A DAY 8 0 July 07, 2024 12:00am November 22, 2024 9:22pm Start: 10-04-2023 End: 10-10-2023 Ciprofloxacin Hcl 0.3 % Drop s Discontinued 2 NMA LEFT EAR TWICE A DAY 0 7 0 October 04, 2023 1:00am October 10, 2023 8:57am Antibiotic Continue for 7 days. Start: 03-10-2015 End: 07-11-2017 take 1 tablet by mouth twice daily CIPROFLOXACIN HCL 500 MG TABS 1 po Twice daily x 3 days CIPROFLOXACIN HCL [id number] Roma Grajeda DO Start: 08-25-2014 End: 12-14-2015 take 1 tablet by mouth once daily CIPROFLOXACIN HCL 250 MG TABS 1 PO daily CIPROFLOXACIN HCL [id number] Roma Grajeda DO Start: 08-17-2014 End: 08-19-2014 CIPROFLOXACIN HCL 250 MG TAB S 2 PO Twice daily x 5 days then once daily CIPROFLOXACIN HCL [id number] Roma Grajeda DO dextromethorphan hydrobromide 15 mg oral capsule (19 sources) Uncompetitive T-nygqyv-M-aspartate Receptor Antagonist, Sigma-1 Agonist Start: 03-09-2017 End: 03-14-2017 Dextromethorphan Hbr (Robitussin) 15 MG capsule Discontinued 15 mg PO NEEDED as needed for Congestion March 09, 2017 12:00am March 14, 2017 10:08am DMSO TOPICAL CREAM (2 sources) Start: 12-07-2014 End: 07-11-2017 DMSO TOPICAL CREAM Apply to left leg every 12 hours for pain DMSO TOPICAL CREAM Rupinder Roe Marko OBED Start: 12-07-2014 DMSO TOPICAL C REAM Apply to left leg every 12 hours for pain DMSO TOPICAL CREAM Roma Grajeda DO docusate sodium 100 mg oral capsule (2 sources) Start: 05-04-2014 End: 12-14-2015 COLACE 100 MG CAPS daily DOCUSATE SODIUM [id number] Roma Grajeda DO docusate sodium 50 mg / sennosides, mcfp 8.6 mg oral tablet (19 sources) Start: 09-08-2016 End: 03-14-2017 take 1 tablet by mouth twice daily Sennosides-Docusate Sodium (Stool Softener-Stimulant Laxat) 1 TABLET tablet Discontinued 2 {tbl} PO TWICE A DAY 10 0 September 08, 2016 1:00am March 14, 2017 10:08am doxycycline monohydrate 100 mg oral capsule (19 sources) Tetracycline-cla ss Drug Start: 11-08-2017 End: 11-13-2017 take 1 capsule by mouth twice daily Doxycycline Monohydrate 100 MG capsule Discontinued 100 mg PO TWICE A DAY 14 0 November 08, 2017 1:00am November 13, 2017 6:42pm ergocalciferol 98206 unt oral capsule (5 sources) Provitamin D2 Compound Start: 03-02-2015 End: 12-14-2015 take 1 capsule by mouth every week VITAMIN D (ERGOCALCIFEROL) 67379 UNIT CAPS One capsule by mouth once a week. ERGOCALCIFEROL [id number] Roma Grajeda DO Start: 05-04-2014 End: 08-02-2014 take 1 capsule by mouth every week ERGOCALCIFEROL 80083 UNIT CAPS 1 PO weekly ERGOCALCIFEROL [id number] Roma Grajeda DO estradiol 0.1 mg/ml vaginal cream (14 sources) Estrogen Start: 12-08-2022 End: 09-28-2023 Estradiol 0.01 % (0.1 mg/gram) cream Discontinued 1 NMA VAGINAL MOWEFR December 08, 2022 1:00am September 28, 2023 6:01pm HORMONES Start: 12-08-2022 End: 09-28-2023 Estradiol Discontinued 1 ALBERT LIC VAGINAL MOWEFR December 08, 2022 1:00am September 28, 2023 6:01pm ferrous sulfate 325 mg delay ed release oral tablet (3 sources) Start: 12-07-2014 FERROUS SULFAT E 325 (65 Fe) MG TBEC 1 po BID FERROUS SULFATE [id number] Roma Grajeda DO take 1 tablet by simon th once daily at breakfast ferrous sulfate 325 mg (65 mg iron) tabl et Take 325 mg by mouth daily with breakfast. Active fluconazole 200 mg oral tablet (6 sources) Azole Antifungal Start: 05-06-2015 End: 07-11-2017 take 1 tablet by mouth once daily FLUCONAZOLE 200 MG TABS 1 po daily x 3 days FLUCONAZOLE [id number] Breanne Granados PA-C furosemide 40 mg oral tablet (20 sources) Loop Diuretic Start: 11-22-2020 End: 12-10-2022 take 1 tablet by mouth once daily as needed Furosemide 40 MG tablet Discontinued 40 mg PO DAILY NEEDED as needed for htn November 22, 2020 1:00am December 10, 2022 11:08am if blood pressure is greater than 140/80 Start: 08-16-2020 End: 08-18-2020 take 1 tablet by mouth once daily Furosemide 40 MG tablet Discontinued 40 mg PO DAILY August 16, 2020 1:00am August 18, 2020 11:37am Start: 09-18-2019 End: 02-19-2020 take 1 tablet by mouth once daily Furosemide 40 MG tablet Discontinued 40 mg PO DAILY 30 October 10, 2019 4:55pm February 19, 2020 1:15pm Water pill 12 hr guaiFENesin 600 mg extended release oral tablet (20 sources) Start: 10-10-2019 End: 02-19-2020 take 1 tablet by mouth twice daily Guaifenesin 600 MG tablet Discontinued 600 mg PO TWICE A DAY October 10, 2019 1:00am February 19, 2020 1:15pm Start: 05-04-[address] CONGESTION 100 MG/5ML SYRP as needed GUAIFENESIN [id number] Roma Grajeda DO hydroxychloroquine sulfate 200 mg oral tablet (2 sources) Antimalarial, Antirheumatic Agent Start: 10-15-2015 End: 12-14-2015 take 1 tablet by mouth twice daily at mealtime PLAQUENIL 200 MG TABS One tablet by mouth twice daily with food HYDROXYCHLOROQUINE SULFATE [id number] Roma Grajeda DO hyoscyamine sulfate 0.12 mg / methenamine 118 mg / methylene blue 10 mg / phenyl salicylate 36 mg / sodium phosphate, monobasic 40.8 mg oral capsule (19 sources) Oxidation-Reducti on Agent Start: 02-24-2020 End: 03-05-2020 Pam-S.Phos- Phsal-Hyo 1 EACH capsule Discontinued 1 NMA PO EVERY 8 HOURS NEEDED as needed for Bladder Spasm 30 February 24, 2020 11:17am March 04, 2020 12:00am March 05, 2020 12:02am Start: 02-24-2020 End: 03-05-2020 Methmahsa-BennieBlue-S.Aloy-Ijzkc-K yo Discontinued 1 EACH PO EVERY 8 HOURS NEEDED 30 February 24, 2020 11:17am March 05, 2020 12:02am 10 ml iron sucrose 20 mg/ml injection (2 sources) Parenteral Iron Replacement Start: 12-21-2014 End: 04-12-2015 VENOFER 20 MG/ML SOLN 200 mg IV over 30 minutes given once weekly x 3 doses IRON SUCROSE [id number] Roma Grajeda DO L.Acidoph, Paracasei,B. Lactis (17 sources) Start: 08-18-2020 End: 09-17-2020 L.Acidoph, Paracasei,B. Lactis Discontinued 1 EACH PO DAILY August 18, 2020 11:38am September 17, 2020 1:03am Start: 08-18-2020 End: 09-17-2020 L.Acidoph, Paracasei,B. Lact is Discontinued 1 EACH PO DAILY August 18, 2020 12:00am September 17, 2020 12:03am Start: 08-18-2020 End: 09-17-2020 L.Acidoph, Paracasei,B. Lact is Discontinued 1 EACH PO DAILY August 18, 2020 1:00am September 17, 2020 1:03am L.Acidoph,Paracasei,B.Animal is 1 EACH capsule (2 sources) Start: 08-18-2020 End: 09-17-2020 take 1 capsule by mouth once daily L.Acidoph,Paracasei,B.Animalis 1 EACH capsule Discontinued 1 NMA PO DAILY 30 30 0 August 18, 2020 1:00am September 16, 2020 1:00am September 17, 2020 1:03am lidocaine 0.05 mg/mg medicat ed patch (20 sources) Anti arrh ythm ic, Amid e Loca l Anes thet ic Start: 10-10-2019 End: 02-19-2020 Lidocaine 1 PATCH patch Discontinued 1 NMA TOPICAL DAILY@0800 30 0 October 10, 2019 1:00am February 19, 2020 1:15pm Please contact the information source for Protocol details. Start: 10-10-2019 End: 02-19-2020 apply 1 dose topically once daily Lidocaine Discontinued 1 PATCH TOPICAL DAILY@0800 30 October 10, 2019 1:00am February 19, 2020 1:15pm Start: 09-01-2018 End: 11-05-2018 Lidocaine 1 PATCH patch Discontinued 1 NMA TOPICAL DAILY 10 September 01, 2018 1:00am November 05, 2018 3:04pm Start: 09-01-2018 End: 11-05-2018 apply 1 dose topically once daily Lidocaine Discontinued 1 PATCH TOPICAL DAILY September 01, 2018 1:00am November 05, 2018 3:04pm linaclotide 0.145 mg oral capsule (2 sources) Guanylate Cyclase-C Agonist Start: 03-10-2015 End: 07-11-2017 take 1 tablet by mouth once daily LINZESS 145 MCG CAPS One tablet by mouth daily LINACLOTIDE [id number] Rupinder Zhu LPN lisinopril 20 mg oral tablet (20 sources) Angiotensin Converting Enzyme Inhibitor Start: 01-30-2021 take 1 tablet by mouth once daily Lisinopril 20 MG tablet Active 20 mg PO DAILY January 30, 2021 12:00am BP On Hold: Hold today and start tomorrow with lower dose 10 mg daily. Complies with drug therapy Start: 08-16-2020 End: 08-18-2020 take 1 tablet by mouth once daily Lisinopril 20 MG tablet Discontinued 20 mg PO DAILY August 16, 2020 1:00am August 18, 2020 11:37am blood pressure Start: 07-11-2017 LISINOPRIL TAB S as directed LISINOPRIL TABS [id number] Rupinder Zhu LPN Start: 05-04-2014 take 1 tablet by simon th once daily LISINOPRIL 20 MG TABS 1 po daily LISINOPRIL [id number] Romanhan Grajeda, DO methenamine mandelate 1000 mg oral tablet (1 source) Start: 12-14-2015 take 0.5 tablet by mouth once daily METHENAMINE MANDELATE 1 GM TABS 1/2 tablet po daily METHENAMINE MANDELATE [id number] Roma A Nicci, DO methylPREDNISolone 4 mg oral tablet (17 sources) Corticosteroid Start: 02-07-2022 End: 02-12-2022 take 1 tablet by mouth once Methylprednisolone (Medrol (Chu)) 4 mg tablets,dose pack Discontinued 4 mg PO per package directions 21 5 0 February 07, 2022 12:00am February 11, 2022 12:00am February 12, 2022 12:05am 24 hr mirabegron 25 mg extended release oral tablet (1 source) beta3-Adrenergic Agonist Start: 03-30-2016 take 1 tablet by mouth once daily MYRBETRIQ 25 MG [id number] One tablet by mouth daily MIRABEGRON [id number] Reinier Nhan Daniel DO MULTIPLE VITAMINS-CALCIUM (2 sources) Start: 12-14-2015 End: 07-11-2017 VIACTIV MULTI-VITAMIN CHEW 2 chews po daily MULTIPLE VITAMINS-CALCIUM [id number] Rupinder Zhu LPN Start: 12-14-2015 VIACTIV MULTI- VITAMIN CHEW 2 chews po daily MULTIPLE VITAMINS-CALCIUM [id number] Roma A Nicci, DO MULTIPLE VITAMINS-IRON (3 sources) Start: 08-17-2014 End: 12-14-2015 take 1 tablet by mouth once daily QC DAILY MULTIVITAMINS/IRON TABS One tablet by mouth daily MULTIPLE VITAMINS-IRON [id number] Roma A Nicci, DO Start: 08-17-2014 take 1 tablet by simon th once daily QC DAILY MULTIVITAMINS/IRON TABS One tablet by mouth daily MULTIPLE VITAMINS-IRON [id number] Roma Grajeda DO nitrofurantoin, macrocrystals 25 mg / nitrofurantoin, monohydrate 75 mg oral capsule (20 sources) Nitrofuran Antibacterial Start: 05-28-2024 End: 07-04-2024 take 1 capsule by mouth every twelve hours Nitrofurantoin Monohyd/M-Cryst 100 mg capsule Discontinued 100 mg PO EVERY 12 HOURS May 28, 2024 12:00am July 04, 2024 5:34pm Start: 12-08-2022 End: 12-10-2022 take 1 capsule by mouth twice daily Nitrofurantoin Monohyd/M-Cryst 100 mg capsule Discontinued 100 mg PO TWICE A DAY December 08, 2022 1:00am December 10, 2022 11:09am UTI Start: 11-11-2020 End: 11-12-2020 take 1 capsule by mouth twice daily Nitrofurantoin Monohyd/M-Cryst 100 MG capsule Discontinued 1 {tbl} PO TWICE A DAY November 11, 2020 1:00am November 12, 2020 2:34pm Omeprazole (5 sources) Proton Pump Inhibitor Start: 07-11-2017 [facility] OMEP RAZOLE TBEC as directed OMEPRAZOLE [facility] [id number] Rupinder Zhu LPN Start: 05-04-2014 End: 12-14-2015 OMEPRAZOLE 40 MG CPDR daily OMEPRAZOLE [id number] Roma Grajeda DO Omeprazole 40 mg capsule Take 20 mg by mouth once daily. Active 24 hr oxybutynin chloride 5 mg extended release oral tablet (4 sources) Cholinergic Muscarinic Antagonist Start: 09-09-2015 End: 03-30-2016 take 1 tablet by mouth once daily OXYBUTYNIN CHLORIDE ER 5 MG [id number] 1 po daily OXYBUTYNIN CHLORIDE [id number] Reinier Sanchez DO Start: 05-04-2014 End: 06-03-2014 take 1 tablet by mouth once daily OXYBUTYNIN CHLORIDE ER 5 MG [id number] One tablet by mouth daily OXYBUTYNIN CHLORIDE [id number] Roma Grajeda DO oxyCODONE hydrochloride 5 mg oral tablet (20 sources) Opioid Agonist Start: 07-17-2016 End: 09-08-2016 take 5-10 mg by mouth twice daily as needed for pain Oxycodone 5 MG tablet Discontinued 5 - 10 mg PO TWICE DAILY NEEDED as needed for Pain July 17, 2016 3:47pm September 08, 2016 8:23am Start: 04-12-2016 End: 07-17-2016 take 1 tablet by mouth twice daily Oxycodone (Oxycontin) 10 MG tablet Discontinued 10 mg PO TWICE A DAY 6 0 April 12, 2016 12:00am July 17, 2016 3:47pm Start: 12-21-2015 End: 07-17-2016 take 5-10 mg by mouth every four hours as needed for pain Oxycodone 5 MG tablet Discontinued 5 - 10 mg PO EVERY 4 HOURS NEEDED as needed for Pain 90 0 April 12, 2016 12:00am July 17, 2016 3:47pm phenylephrine hydrochloride 25 mg/ml ophthalmic solution (2 sources) alpha-1 Adrenergic Agonist Start: 11-27-2024 End: 11-27-2024 PHENYLephrine 2.5 % 1 Drop (AK-DILATE, FEDERICO-SYNEPHRINE) Start: 11-27-2024 End: 11-27-2024 1 Drop, BOTH EYES, DIRECT ED, Starting on Bette 11/27/24 at 0930, Until Bette 11/27/24 at 2129, Administer for dilation PROTECT FROM LIGHT polyethylene glycol 3350 59341 mg powder for oral solution (20 sources) Osmotic Laxative Start: 08-25-2016 End: 10-10-2019 take 17 g by mouth once daily Polyethylene Glycol 3350 17 GM packet Discontinued 17 g PO DAILY August 25, 2016 1:00am October 10, 2019 4:55pm [facility] Start: 12-14-2015 MIRALAX POWD 1 tsp daily POLYETHYLENE GLYCOL 3350 [id number] Roma Grajeda DO Start: 12-14-2015 End: 07-11-2017 MIRALAX POWD 1 tsp daily 201 03/10/08 POLYETHYLENE GLYCOL 3350 [id number] Rupinder Zhu LPN proparacaine hydrochloride 5 mg/ml ophthalmic solution (1 source) Local Anesthetic Start: 11-27-2024 End: 11-27-2024 proparacaine 0.5 % 1 Drop (ALCAINE) propranolol hydrochloride 10 mg oral tablet (5 sources) beta-Adrenergic Buck Start: 06-23-2014 take 0.5 tablet by mouth twice daily PROPRANOLOL HCL 10 MG TABS 1/2 tablet po BID PROPRANOLOL HCL [id number] Roma Grajeda DO Start: 06-23-2014 End: 07-11-2017 take 1 tablet by mouth twice daily PROPRANOLOL HCL 10 MG TABS One tablet by mouth twice daily PROPRANOLOL HCL [id number] Roma Grajeda DO PSYLLIUM POWD (2 sources) Start: 05-04-2014 End: 12-14-2015 METAMUCIL POWD 1 tbsp with f ull glass of water daily PSYLLIUM POWD [id number] Roma Grajeda DO Start: 05-04-2014 METAMUCIL POWD 1 tbsp with full glass of water daily PSYLLIUM POWD [id number] Roma Grajeda DO sucralfate 100 mg/ml oral suspension (3 sources) Aluminum Complex Start: 05-28-2014 End: 12-14-2015 CARAFATE 1 GM/10ML SUSP 10 ml Four times daily - 1 hour before meals and at bedtime SUCRALFATE [id number] Roma Grajeda DO sulfamethoxazole 800 mg / trimethoprim 160 mg oral tablet (20 sources) Dihydrofolate Reductase Inhibitor Antibacterial, Sulfonamide Antimicrobial Start: 11-22-2024 End: 11-24-2024 Sulfamethoxazole-Tri methoprim 800-160 mg tablet Discontinued 1 {tbl} PO TWICE A DAY November 22, 2024 1:00am November 24, 2024 12:57pm UTI x 7 days Start: 11-12-2018 End: 11-15-2018 Sulfamethoxazole-Trimethopri m 1 TABLET tablet Discontinued 1 {tbl} PO TWICE A DAY 6 3 0 November 12, 2018 1:00am November 14, 2018 1:00am November 15, 2018 1:17am Start: 11-12-2018 End: 11-15-2018 take 1 tablet by mouth twice daily Sulfamethoxazole-Trimethoprim Discontinu ed 1 TABLET PO TWICE A DAY 6 3 November 12, 2018 1:00am November 15, 2018 1:17am Start: 07-28-2014 End: 08-04-2014 take 1 tablet by mouth twice daily for urinary tract infection SULFAMETHOXAZOLE-TRIMETHOPRIM 800-160 MG TABS One tablet by mouth twice daily for UTI SULFAMETHOXAZOLE-TRIMETHOPRIM [id number] Reinier Sanchez Start: 05-21-2014 End: 06-23-2014 take 1 tablet by mouth twice daily SULFAMETHOXAZOLE-TRIMETHOPRIM 800-160 MG TABS 1 PO Twice daily x 5 days SULFAMETHOXAZOLE-TRIMETHOPRIM [id number] Roma Grajeda DO tetracycline 500 mg oral capsule (2 sources) Tetracycline-class Antimicrobial Start: 03-16-2015 End: 04-12-2015 take 1 capsule by mouth twice daily TETRACYCLINE HCL 500 MG CAPS 1 po Twice daily x 5 days TETRACYCLINE HCL [id number] Roma Grajeda DO tropicamide 10 mg/ml ophthalmic solution (2 sources) Anticholinergic Start: 11-27-2024 End: 11-27-2024 tropicamide 1 % 1 Drop (MYDRIACYL) Start: 11-27-2024 End: 11-27-2024 1 Drop, BOTH EYES, DIRECT ED, Starting on Bette 11/27/24 at 0930, Until Bette 2 at 2129, Administer for dilation CHOLECALCIFEROL TABS (1 source) Start: 05-04-2014 VITAMIN D TABS 30,000 iu every week CHOLECALCIFEROL TABS [id number] Roma Grajeda DO Problems Active Problems Problem Classification Problem Date Documented Da te Episodic/Chronic Acute and unspecified renal failure (4 sources) Acute renal failure syndrome; Translations: [Acute kidney failure, unspecified] Onset: 12-02-2024 Episodic Asthma (19 sources) Asthma; Translations: [Unspecified asthma, uncomplicated] 09-18-2019 Chronic Blindness and vision defects (12 sources) Blurring of visual image; Translations: [Other visual disturbances] 01-18-2023 Episodic Chronic kidney disease (2 sources) Chronic kidney disease stage 3A ; Translations: [Stage 3a chronic kidney disease] 11-23-2024 Chronic Chronic kidney disease (1 source) Chronic kidney disease; Translations: [Chronic kidney disease, stage 3a] Onset: 5 Chronic ulcer of skin (19 sources) Pressure ulcer; Translations: [Pressure ulcer of unspecified site, unspecified stage] 08-27-2021 Chronic E Codes: Adverse effects of medical drugs (3 sources) Adverse reaction to drug; Translations: [Adverse effect of unspecified drugs, medicaments and biological substances, initial encounter] Onset: 5 11-22-2024 Episodic E Codes: Fall (5 sources) Fall; Translations: [Unspecified fall, initial encounter] Onset: 5 11-22-2024 Episodic Esophageal disorders (1 source) Gastroesophageal reflux disease; Translations: [Gastro-esophageal reflux disease without esophagitis] Onset: 4 11-08-2015 Chronic Essential hypertension (20 sources) Hypertensive disorder; Translations: [Essential (primary) hypertension] Onset: 5 10-27-2014 Chronic Fluid and electrolyte disorders (20 sources) Hyponatremia; Translations: [Hypo-osmolality and hyponatremia] Onset: 5 11-22-2020 Episodic Fracture of lower limb (19 sources) Closed fracture of ankle; Translations: [Other fracture of left lower leg, initial encounter for closed fracture] 11-22-2020 Episodic Gastroduodenal ulcer (except hemorrhage) (19 sources) Peptic ulcer; Translations: [Peptic ulcer, site unspecified, unspecified as acute or chronic, without hemorrhage or perforation] 02-17-2019 Chronic Gastroduodenal ulcer (except hemorrhage) (19 sources) H/O: peptic ulcer; Translations: [Personal history of peptic ulcer disease] 02-17-2019 Episodic Genitourinary symptoms and ill-defined conditions (1 source) Mixed urinary incontinence; Translations: [Mixed incontinence] Onset: 4 05-05-2014 Chronic Genitourinary symptoms and ill-defined conditions (20 sources) Dysuria; Translations: [Increased frequency of urination] Onset: 4 05-21-2014 Episodic Intracranial injury (10 sources) Concussion injury of body structure; Translations: [Concussion] 09-29-2023 Episodic Comment on above: Mild Malaise and fatigue (20 sources) Malaise and fatigue; Translations: [Asthenia] Onset: 4 05-04-2014 Episodic Mood disorders (1 source) Depressive disorder; Translations: [Major depressive disorder, single episode, unspecified] Onset: 6 04-24-2016 Chronic Mycoses (20 sources) Candidiasis of skin; Translations: [Mycosis] Onset: 5 05-06-2015 Episodic Neoplasms of unspecified nature or uncertain behavior (19 sources) Neoplasm of uncertain behavior of bladder; Translations: [Neoplasm of uncertain behavior of bladder] 08-16-2020 Episodic Nutritional deficiencies (3 sources) Folic acid deficiency; Translations: [Deficiency of other specified B group vitamins] Onset: 5 11-23-2024 Episodic Osteoarthritis (20 sources) Degenerative joint disease of shoulder region; Translations: [Osteoarthritis of right hip joint] Onset: 5 Resolved: 6 03-28-2016 Chronic Osteoporosis (20 sources) Osteoporosis; Translations: [Age-related osteoporosis without current pathological fracture] Onset: 4 09-18-2019 Chronic Other connective tissue disease (19 sources) History of total hip arthroplasty; Translations: [Presence of right artificial hip joint] 11-22-2020 Chronic Comment on above: 11/07/[address] Elkin acevedo Other connective tissue disease (2 sources) History of repair of hip joint; Translations: [Presence of unspecified artificial hip joint] 07-09-2024 Chronic Other connective tissue disease (1 source) Presence of right artificial hip joint; Translations: [Presence of right artificial hip joint] Onset: 4 Chronic Other connective tissue disease (2 sources) Recurrent falls ; Translations: [Repeated falls] 11-22-2024 Episodic Other diseases of bladder and urethra (19 sources) Overactive bladder; Translations: [Overactive bladder] 02-17-2019 Chronic Other diseases of kidney and ureters (2 sources) Renal impairment; Translations: [Disorder of kidney and ureter, unspecified] 06-05-2024 Episodic Other eye disorders (12 sources) Dry eyes; Translations: [Dry eye syndrome of right lacrimal gland] 01-18-2023 Episodic Other fractures (3 sources) Unspecified fracture of right acetabulum, initial encounter for closed fracture; Translations: [Fracture of right acetabulum] Onset: 4 07-04-2024 Episodic Other gastrointestinal disorders (1 source) Celiac disease; Translations: [Celiac disease] Onset: 4 08-17-2014 Chronic Other gastrointestinal disorders (19 sources) Constipation; Translations: [Constipation, unspecified] 02-17-2019 Episodic Other hereditary and degenerative nervous system conditions (1 source) Essential tremor; Translations: [Essential tremor] Onset: 4 06-23-2014 Chronic Other injuries and conditions due to external causes (6 sources) History of fall; Translations: [History of falling] 09-29-2023 Episodic Other injuries and conditions due to external causes (1 source) History of falling; Translations: [History of fall] 10-04-2023 Episodic Other injuries and conditions due to external causes (2 sources) Other specified injuries of thorax, initial encounter; Translations: [Contusion of rib on right side] 09-02-2018 Episodic Other nervous system disorders (2 sources) Walking disability; Translations: [Difficulty in walking, not elsewhere classified] 07-04-2024 Chronic Other nervous system disorders (1 source) Difficulty in walking, not elsewhere classified; Translations: [Difficulty in walking, not elsewhere classified] Onset: 5 Chronic Other nervous system disorders (2 sources) Acute pain due to injury; Translations: [Acute pain due to trauma] 07-04-2024 Episodic Other non-traumatic joint disorders (2 sources) Hip pain; Translations: [Pain in right hip] 06-11-2025 Episodic Other non-traumatic joint disorders (1 source) Pain in right hip; Translations: [Pain in right hip] Onset: 5 Episodic Other nutritional; endocrine; and metabolic disorders (1 source) Obesity; Translations: [Obesity, unspecified] Onset: 5 12-07-2014 Chronic Other upper respiratory disease (19 sources) Allergic rhinitis; Translations: [Allergic rhinitis, unspecified] 09-18-2019 Chronic Otitis media and related conditions (20 sources) Perforation of tympanic membrane; Translations: [Unspecified perforation of tympanic membrane, unspecified ear] 09-29-2023 Episodic Residual codes; unclassified (19 sources) Insomnia; Translations: [Insomnia, unspecified] 09-18-2019 Episodic Residual codes; unclassified (14 sources) Disturbance of consciousness; Translations: [Transient alteration of awareness] 12-08-2022 Episodic Residual codes; unclassified (4 sources) Transient alteration of awareness; Translations: [Other alteration of consciousness] 12-10-2022 Episodic Residual codes; unclassified (3 sources) Insomnia, unspecified; Translations: [Insomnia, unspecified] 10-12-2023 Episodic Retinal detachments; defects; vascular occlusion; and retinopathy (1 source) Unspecified peripheral retinal degeneration; Translations: [Peripheral retinal degeneration, unspecified] 11-27-2024 Chronic Spondylosis; intervertebral disc disorders; other back problems (1 source) Displacement of lumbar intervertebral disc without myelopathy; Translations: [Other intervertebral disc displacement, lumbar region] Onset: 0 02-08-2010 Chronic Spondylosis; intervertebral disc disorders; other back problems (20 sources) Low back pain; Translations: [Spinal stenosis of lumbar region] Onset: 0 05-05-2014 Episodic Sprains and strains (17 sources) Low back strain; Translations: [Strain of muscle, fascia and tendon of lower back, initial encounter] 02-07-2022 Episodic Superficial injury; contusion (20 sources) Contusion of rib; Translations: [Contusion of right front wall of thorax, initial encounter] Onset: 4 09-02-2018 Episodic Syncope (10 sources) Syncope; Translations: [Syncope and collapse] 12-08-2022 Episodic Thyroid disorders (20 sources) Hypothyroidism; Translations: [Hypothyroidism, unspecified] Onset: 5 04-12-2015 Chronic Unclassified (1 source) Low back pain, unspecified; Translations: [Low back pain, unspecified] Onset: 4 Urinary tract infections (20 sources) Acute cystitis; Translations: [Recurrent urinary tract infection] Onset: 4 Resolved: 4 07-28-2014 Episodic Past or Other Problems Problem Classification Problem [...] Hematochezia; Translations: [Melena] Onset: 5 12-21-2014 Episodic Nausea and vomiting (1 source) Nausea; Translations: [Nausea] Onset: 4 05-28-2014 Episodic Open wounds of extremities (1 source) Laceration without foreign body of unspecified finger without damage to nail, initial encounter; Translations: [Laceration without foreign body of unspecified finger without damage to nail, initial encounter] Onset: 7 07-11-2017 Episodic Other connective tissue disease (1 source) Hand pain; Translations: [Pain in left hand] Onset: 4 08-17-2014 Episodic Other connective tissue disease (1 source) Muscle pain; Translations: [Myalgia and myositis] Onset: 0 02-08-2010 Episodic Other connective tissue disease (1 source) H/O Spinal surgery; Translations: [Arthrodesis status] Onset: 0 02-08-2010 Episodic Other fractures (1 source) Nondisplaced fracture of posterior column [ilioischial] of right acetabulum, sequela; Translations: [Nondisplaced fracture of posterior column [ilioischial] of right acetabulum, sequela] Onset: 4 Episodic Other gastrointestinal disorders (1 source) Chronic constipation; Translations: [Other constipation] Onset: 4 05-05-2014 Episodic Other gastrointestinal disorders (1 source) H/O: gastrointestinal disease; Translations: [Personal history of other diseases of the digestive system] Onset: 4 05-05-2014 Episodic Other injuries and conditions due to external causes (1 source) Encounter for examination and observation following other accident; Translations: [Encounter for examination and observation following other accident] Onset: 4 Episodic Other nervous system disorders (1 source) Acute pain due to trauma; Translations: [Acute pain due to trauma] Onset: 4 Episodic Other non-traumatic joint disorders (1 source) Shoulder pain; Translations: [Pain in unspecified shoulder] Onset: 4 05-21-2014 Episodic Other non-traumatic joint disorders (1 source) Knee pain; Translations: [Pain in right knee] Onset: 4 05-05-2014 Episodic Other non-traumatic joint disorders (1 source) Pain in right knee; Translations: [Pain in joint, lower leg] Onset: 0 02-08-2010 Episodic Other nutritional; endocrine; and metabolic disorders (1 source) H/O: nutritional disorder; Translations: [Personal history of other endocrine, nutritional and metabolic disease] Onset: 4 05-05-2014 Episodic Other skin disorders (1 source) Actinic keratosis; Translations: [Actinic keratosis] Onset: 4 05-05-2014 Episodic Other skin disorders (1 source) Disorder of skin; Translations: [Disorder of the skin and subcutaneous tissue, unspecified] Onset: 4 05-21-2014 Episodic Unclassified (1 source) Preoperative procedures; Translations: [Encounter for other preprocedural examination] Onset: 6 Resolved: 6 03-28-2016 Results Test Name Value Interpretation Reference Range Facility Absolute lymphocyte countOrd ered By: Biju Quezada on 06-24-2025 Lymphocytes Auto (Unsp spec) [#/Vol] 1.65 10*3/uL 0.83-4.51 [facility] Absolute neutrophil countOrd ered By: Biju Quezada on 06-24-2025 Neutrophils (Bld) [#/Vol] 3.8 10*3/uL 2.0-7.7 [facility] Anion gap in Serum or Plasma Ordered By: Biju Quezada on 06-24-2025 Anion gap [Moles/Vol] 13 mmol/L 5-15 [facility] Automated lymphocyte count a s percentage of total leukocytesOrdered By: Biju Quezada on 06-24-2025 Lymphocytes/100 WBC Auto (Unsp spec) 26.2 % 19-41 [facility] BUN/creatinine ratioOrdered By: Biju Pilar on 06-24-2025 Urea nitrogen/Creatinine [Mass ratio] 26.2 mg/mg High 10-20 [facility] Basophil percentageOrdered B y: Layus Kangdeepali on 06-24-2025 Basophils/100 WBC (Bld) 0.8 % 0-1 [facility] Bilirubin Test strip Ql (U)O rdered By: Lay Pilar on 06-24-2025 Bilirubin Ql (U) Negative Negative [facility] Carbon dioxide, total [Moles /volume] in Central venous bloodOrdered By: Biju Quezada on 06-24-2025 CO2 [Moles/Vol] 23.2 mmol/L 21.0-32.0 [facility] Chloride assayOrdered By: Brianne Quezada on 06-24-2025 Chloride [Moles/Vol] 98 mmol/L 98-108 [facility] Eosinophil percentageOrdered By: Biju Quezada on 06-24-2025 Eosinophils/100 WBC (Bld) 2.7 % 0-5 [facility] Erythrocyte distribution wid th ratioOrdered By: Lay Pilar on 06-24-2025 Erythrocyte distribution width (RBC) [Ratio] 13.9 % 11.6-14.6 [facility] Erythrocyte distribution wid th standard deviationOrdered By: Biju Quezada on 06-24-2025 Erythrocyte distribution width (RBC) [Ratio] 49.1 fl High 35.1-43.9 [facility] Glomerular filtration rate ( GFR) estimation/1.73 sq m using serum, plasma, or whole bOrdered By: Biju Quezada on 06-24-2025 GFR/1.73 sq M.predicted among non-blacks MDRD (S/P/Bld) [Vol rate/Area] 45 mL/min/{1.73_m2} Low >60 [facility] Comment on above: mL/min/1.73m2 CKD-EP I Creatinine Equation (2020) Hematocrit Auto (Bld) [Volum e fraction]Ordered By: Biju Quezada on 06-24-2025 Hematocrit (Bld) [Volume fraction] 34.5 % Low 37-47 [facility] Hemoglobin measurementOrdere d By: Biju Quezada on 06-24-2025 Hemoglobin (Bld) [Mass/Vol] 10.8 g/dL Low 12.0-15.0 [facility] Immature granulocytes/100 WB C Auto (Bld)Ordered By: Biju Quezada on 06-24-2025 Immature granulocytes/100 WBC (Bld) 0.300 % 0.0-0.9 [facility] Comment on above: IG% - Immature Granu locytes (promyelocytes, myelocytes and metamyelocytes) > 1% indicates that a LEFT SHIFT is Present. Ketones Test strip Ql (U)Ord ered By: Biju Quezada on 06-24-2025 Ketones Ql (U) Negative Negative [facility] MCV (mean corpuscular volume ) determinationOrdered By: Biju Quezada on 06-24-2025 MCV (RBC) [Entitic vol] 95.0 fL 81-99 [facility] Mean corpuscular hemoglobin (MCH) determinationOrdered By: Biju Quezada on 06-24-2025 MCH (RBC) [Entitic mass] 29.8 pg 27.0-32.0 [facility] Mean corpuscular hemoglobin concentration (MCHC) determinationOrdered By: Biju Quezada on 06-24-2025 MCHC (RBC) [Mass/Vol] 31.3 g/dL Low 32-36 [facility] Mean platelet volume determi nationOrdered By: Biju Quezada on 06-24-2025 Platelet mean volume (Bld) [Entitic vol] 9.0 fL 6.2-12.0 [facility] Microscopic analysis of urin e for red blood cells (RBC)Ordered By: Biju Quezada on 06-24-2025 Microscopic analysis of urine for red blood cells (RBC) 0 SEEN /hpf 0-5 [facility] Monocyte percentageOrdered B y: Biju Quezada on 06-24-2025 Monocytes/100 WBC (Bld) 10.0 % 0-10 [facility] Mucus LM Ql (Urine sed)Order ed By: Biju Quezada on 06-24-2025 Mucus Ql (Urine sed) 0 SEEN /hpf [facility] Neutrophil percentageOrdered By: Biju Quezada on 06-24-2025 Neutrophils/100 WBC (Bld) 60.0 % 47-70 [facility] Nitrite Test strip Ql (U)Ord ered By: Biju Quezada on 06-24-2025 Nitrite Ql (U) Positive High Negative [facility] Nucleated red blood cell per centageOrdered By: Biju Quezada on 06-24-2025 Nucleated RBC/100 WBC (Bld) [Ratio] 0 % 0-5 [facility] Platelet countOrdered By: Brianne Quezada on 06-24-2025 Platelets (Bld) [#/Vol] 310 10*3/uL 150-450 [facility] Potassium measurement (mass/ volume)Ordered By: Biju Quezada on 06-24-2025 Potassium (Unsp spec) [Mass/Vol] 4.4 mmol/L 3.3-5.1 [facility] Protein Test strip Ql (U)Ord ered By: Biju Quezada on 06-24-2025 Protein Ql (U) 30 mg/dl High Negative [facility] RBC Auto (Bld) [#/Vol]Ordere d By: Biju Quezada on 06-24-2025 RBC (Bld) [#/Vol] 3.63 10*6/uL Low 4.2-5.4 [facility] Serum creatinine measurement (mass/volume)Ordered By: Biju Quezada on 06-24-2025 Creatinine [Mass/Vol] 1.17 mg/dL 0.70-1.20 [facility] Serum glucose measurement (m ass/volume)Ordered By: Biju Quezada on 06-24-2025 Glucose [Mass/Vol] 138 mg/dL High 70-99 [facility] Serum or plasma calcium rosa isela urement (mass/volume)Ordered By: Biju Quezada on 06-24-2025 Calcium [Mass/Vol] 9.3 mg/dL 7.6-11.0 [facility] Serum or plasma urea nitroge n measurement (mass/volume)Ordered By: Biju Quezada on 06-24-2025 Urea nitrogen [Mass/Vol] 31 mg/dL High 4-19 [facility] Sodium levelOrdered By: Gia Quezada on 06-24-2025 Sodium [Moles/Vol] 134 mmol/L 133-145 [facility] Squamous epithelial cells de tection in urine sediment by light microscopyOrdered By: Biju Quezada on 06-24-2025 Epithelial cells.squamous LM Ql (Urine sed) 5-10 SEEN /hpf 5-10 [facility] Urine clarityOrdered By: Rem us Pilar on 06-24-2025 Clarity (U) Sl. Cloudy Clear [facility] Urine color determinationOrd ered By: Remus Quezada on 06-24-2025 Color (U) Yellow Yellow [facility] Urine glucose detectionOrder ed By: Remus Quezada on 06-24-2025 Glucose Ql (U) Normal mg/dl Normal [facility] Urine leukocyte esterase det ection by dipstickOrdered By: Remus Quezada on 06-24-2025 Leukocyte esterase Test strip Ql (U) 500 /ul High Negative [facility] Urine pHOrdered By: Biju Un gur on 06-24-2025 pH (U) 6.5 [pH] 5.0 - 8.0 [facility] Urine sediment bacteria coun t by microscopy (number/high power field)Ordered By: Biju Quezada on 06-24-2025 Bacteria LM.HPF (Urine sed) [#/Area] 0 /[HPF] None Seen [facility] Urine specific gravity measu rementOrdered By: Remus Quezada on 06-24-2025 Specific gravity (U) [Rel density] 1.010 1.002-1.030 [facility] Urine urobilinogen measureme ntOrdered By: Remus Quezada on 06-24-2025 Urobilinogen Ql (U) Normal mg/dl Normal [facility] White blood cell (WBC) count Ordered By: Biju Quezada on 06-24-2025 WBC (Bld) [#/Vol] 6.3 10*3/uL 4.4-11.0 [facility] White blood cell countOrdere d By: Remus Quezada on 06-24-2025 White blood cell count 25-50 SEEN /hpf 0-5 [facility] Emergency Department Summary on 06-11-[address] [facility] Medical Records Department [address] [place] [address] Emergency Department Summary 06/11/25 MR#: [id number] Acct: [id number] Name: MARLI ROSALES Rep #: [id number] : 1935 89 From: Myrtle Sullivan MD PCP: Dr. Roma Grajeda DO Status:REG ER Location: ED HPI History of Present Illness Chief Complaint: Lower Extremity Injury Narrative Narrative: Patient is a 89-year-old female presenting to the emergency department for right hip pain. Patient has past medical history as below including osteoarthritis of her right hip, low back pain and a prior right hip fracture with surgical repair. Patient states that for the past 5 days she has had pain in her right hip. She has been on ciprofloxacin for UTI and has finished this prescription. She thinks that the ciprofloxacin caused her scar tissue to act up in her right hip. She denies any fever or chills. She ambulates with a rollator. Denies any pain that radiates down her leg. Denies any weakness or numbness in her right leg. Denies any new back pain from baseline. Has been taking her tramadol for pain control at home. Denies any falls or trauma to her hip. [facility] Medical History Irritable bowel syndrome Spinal stenosis of lumbar region History of recent fall Wears hearing aid in both ears Hearing loss, left Hearing loss, right Anemia Anxiety Depression Hypothyroidism Chronic pain Osteoporosis GI bleed GERD (gastroesophageal reflux disease) Wears hearing aid History of depression Alcohol use Walker as ambulation aid Dietary restriction History of hiatal hernia History of GI bleed Celiac disease Gastric reflux Non-smoker Hoarseness History of stress test History of rheumatic fever Thyroid disease Osteoporosis Hypertension Osteoporosis Home Medications ???Medication ???Instructions ???Recorded ???Last Taken ???Type amitriptyline 25 mg tablet 25 mg PO QHS Mood 08/16/20 3 History azelastine 137 mcg (0.1 %) nasal 1 spray NASAL BID SINUS 08/16/20 1 12/05/22 History spray fluticasone propionate 50 1 spray NASAL BID allergies 10/04/23 History mcg/actuation nasal spray,suspension tramadol 50 mg tablet 50 mg PO Q8H Pain 11/09/20 3 History levothyroxine 75 mcg tablet 75 mcg PO DAILY@0600 Thyroid #30 0 11/25/20 10/04/23 Rx tabs lisinopril 20 mg tablet 20 mg PO DAILY BP 01/30/21 3 History Held on 11/24/24. Instructions: Hold today and start tomorrow with lower dose 10 mg daily. gabapentin 300 mg capsule 300 mg PO TID pain 07/04/24 Unknow n History trazodone 50 mg tablet 50 mg PO QHS sleep 07/04/24 Unknow n History cholecalciferol (vitamin D3) 125 125 mcg PO DAILY supplement #0 cap s 07/07/24 Unknown Rx mcg (5,000 unit) capsule cephalexin 500 mg capsule 500 mg PO DAILY UTI prevention Unknown History acetaminophen 500 mg tablet 500 mg PO Q8H PRN PRN arthritis Unknown Rx pain #0 tabs cyanocobalamin (vitamin B-12) 1,000 mcg PO DAILY #30 tabs Unknown Rx 1,000 mcg tablet pantoprazole 40 mg tablet,delayed 40 mg PO DAILY GERD 30 days #0 ta bs 11/24/24 10/04/23 Rx release Allergy/AdvReac Type Severity Reaction Status Date / Time meperidine (From Demerol) Allergy Unknown NEEDS Verified 06/11/25 14:12 FOLLOW-UP morphine Allergy Unknown NEEDS Verified 06/11/25 14:12 FOLLOW-UP gluten Allergy Food Verified 06/11/25 14:12 Allergy grass pollen-perennial rye, Allergy sinus Verified 06/11/25 14:12 standar (grass pressure poll-perennial rye,std) nitrofurantoin AdvReac Mild Other Verified 06/11/25 14:12 house dust AdvReac Other Verified 06/11/25 14:12 lactose AdvReac Food Verified 06/11/25 14:12 Allergy mold AdvReac Other Verified 06/11/25 14:12 Surgical History S/P hysterectomy History of appendectomy History of biopsy of bladder History of bilateral salpingo-oophorectom y (BSO) History of cystostomy History of shoulder surgery History of right knee surgery History of back surgery History of hysterectomy History of cholecystectomy Social History household members: spouse housing: assisted living facility current occupational status: retired Smoking Status: Never smoker alcohol intake: never ROS ROS ED ROS Narrative see HPI EXAM Physical Exam Narrative Exam Narrative: Vital signs: Reviewed General: Alert and orientedx3. No acute distress HEENT: Head is normocephalic and atraumatic, sinuses nontender, pupils equal round and reactive. Nares are patent. Oropharynx and throat exams normal. Neck: Supple without lymp (more content not included)... Normal [facility] HIP, UNI W/ Pelvis 2-3 Views on 06-11-2025 HIP, UNI W/ Pelvis 2-3 Views [facility] Imaging Services [address] [place] [address] HIP, UNI W/ Pelvis 2-3 Views MR#: [id number] Acct: [id number] Name: MARLI ROSALES Rep #: [id number] : 1935 F 89 From: Fernie Jim MD PCP: Dr. Roma Grajeda, Status: PRE ER Study: HIP, UNI W/ Pelvis 2-3 Views Date of Exam: 01/30 Exam# [id number] Ordering Dr: Myrtle Sullivan MD PROCEDURE: HIP, UNI W/ PELVIS 2-3 VIEWS 06/11/2025 REASON FOR EXAM: HIP PAIN TECHNIQUE: Procedure Code: [facility] Modality: DX Procedure: HIP, UNI W/ PELVIS 2-3 VIEWS Laterality: Right COMPARISON: None FINDINGS: Osseous: There is a right total hip replacement with a cemented femoral stem and noncemented acetabular cup appearing to be in anatomic alignment. No evidence of component loosening. The femoral head is centered to the acetabular cup without evidence of asymmetric liner wear. Partially visualized is a distal femoral metallic component and associated intramedullary cement extending below the level of this exam. Incompletely visualized is spinal fixation hardware extending above the level of this exam. No radiographic evidence of an acute displaced fracture is seen. No bone lesion or periosteal reaction is seen. If there is suspicion for infection in this patient, consider nuclear medicine white blood cell scan. Soft tissues: Soft tissue injury is not reliably assessed by this technique. RAD/HIP, UNI W/ Pelvis 2-3 Views IMPRESSION: No radiographic evidence of an acute osseous abnormality. - Findings and recommendations discussed above. Reading Location: [id number] CC: Dr. Myrtle Sullivan MD; Dr. Roma Grajeda DO Draw String Knotter: Signed Normal [facility] BSCAN AND ASCAN OD (RIGHT EY E)on 11-27-2024 [facility] Radiology Study observation [facility]narrative[facility] FUNDUS AUTOFLUORESCENCE PHOT O (FAF) OD (RIGHT EYE)on 11-27-2024 [facility] Radiology Study observation (narrative) [facility] OCT MACULA CIRRUS OD (RIGHT EYE)on 11-27-2024 [facility] Radiology Study observation (narrative) [facility] Right eye Photo documentatio non 11-27-2024 [facility] Radiology Study observation (narrative) [facility] Basic Metabolic Profile (BMP )on 11-24-2024 BUN/CRE 21.2 RATIO High 10-20 [facility] Comment on above: Performed By: #### L 500.2500, L501.4020, L100.0100 #### [facility] [address] [place], [address] CA,Total 9.2 mg/dL Normal 8.5-10.1 [facility] Comment on above: Performed By: #### L 500.2500, L501.4020, L100.0100 #### [facility] [address] [place], [address] Chloride [Moles/Vol] 106 mmol/L Normal 98-107 [facility] Comment on above: Performed By: #### L 500.2500, L501.4020, L100.0100 #### [facility] [address] [place], [address] CO2 [Moles/Vol] 24.0 mmol/L Normal 21.0-32.0 [facility] Comment on above: Performed By: #### L 500.2500, L501.4020, L100.0100 #### [facility] [address] [place], [address] Creatinine [Mass/Vol] 0.80 mg/dL Normal 0.55-1.02 [facility] Comment on above: Result Comment: The validity of the calculated GFR GFRAA in patients over 70 years has not been determined. Clinical correlation is essential. Performed By: #### L 500.2500, L501.4020, L100.0100 #### [facility] [address] [place], [address] ECRCL 42.69 ml/min Normal [facility] Comment on above: Performed By: #### L 500.2500, L501.4020, L100.0100 #### [facility] [address] [place], [address] EST GFR - AA 87 mL/min Normal >60 [facility] Comment on above: Result Comment: Afri can Tristanian GFR Calc Performed By: #### L 500.2500, L501.4020, L100.0100 #### [facility] [address] [place], [address] GAP 6 Normal 5-15 [facility] Comment on above: Performed By: #### L 500.2500, L501.4020, L100.0100 #### [facility] [address] [place], [address] GFR/1.73 sq M.predicted among non-blacks MDRD (S/P/Bld) [Vol rate/Area] 72 mL/min/{1.73_m2} Normal >60 [facility] Comment on above: Result Comment: Non- GFR Calc Performed By: #### L 500.2500, L501.4020, L100.0100 #### [facility] [address] [place], [address] Glucose [Mass/Vol] 84 mg/dL Normal 74-106 [facility] Comment on above: Performed By: #### L 500.2500, L501.4020, L100.0100 #### [facility] [address] [place], [address] Potassium [Moles/Vol] 4.3 mmol/L Normal 3.5-5.1 [facility] Comment on above: Performed By: #### L 500.2500, L501.4020, L100.0100 #### [facility] [address] [place], [address] Sodium [Moles/Vol] 136 mmol/L Normal 136-145 [facility] Comment on above: Performed By: #### L 500.2500, L501.4020, L100.0100 #### [facility] [address] [place], [address] Urea nitrogen [Mass/Vol] 17 mg/dL Normal 7-18 [facility] Comment on above: Performed By: #### L 500.2500, L501.4020, L100.0100 #### [facility] [address] [place], [address] Phosphoruson 11-24-2024 Phosphate [Mass/Vol] 3.4 mg/dL Normal 2.5-4.9 [facility] Comment on above: Performed By: #### L 500.2500, L501.4020, L100.0100 #### [facility] [address] [place], [address] Vitamin B12on 11-24-2024 Cobalamin (Vitamin B12) [Mass/Vol] 278 pg/mL Normal 211-911 [facility] Comment on above: Performed By: #### L 500.2500, L501.4020, L100.0100 #### [facility] [address] [place], [address] CBC W/Diff, Automatedon 02- Absolute Lymph 1.24 X10 3/uL Normal 0.83-4.51 [facility] Comment on above: Performed By: #### L 500.2500, L501.4020, L100.0100 #### [facility] [address] [place], [address] Absolute Neut 2.8 X10 3/uL Normal 2.0-7.7 [facility] Comment on above: Performed By: #### L 500.2500, L501.4020, L100.0100 #### [facility] [address] [place], [address] Basophils/100 WBC (Bld) 0.8 % Normal 0-1 [facility] Comment on above: Performed By: #### L 500.2500, L501.4020, L100.0100 #### [facility] [address] [place], [address] Eosinophils/100 WBC (Bld) 5.8 % High 0-5 [facility] Comment on above: Performed By: #### L 500.2500, L501.4020, L100.0100 #### [facility] [address] [place], [address] Erythrocyte distribution width (RBC) [Ratio] 14.2 % Normal 11.6-14.6 [facility] Comment on above: Performed By: #### L 500.2500, L501.4020, L100.0100 #### [facility] [address] [place], [address] Hematocrit (Bld) [Volume fraction] 27.1 % Low 37-47 [facility] Comment on above: Performed By: #### L 500.2500, L501.4020, L100.0100 #### [facility] [address] [place], [address] Hemoglobin (Bld) [Mass/Vol] 8.6 g/dL Low 12.0-15.0 [facility] Comment on above: Performed By: #### L 500.2500, L501.4020, L100.0100 #### [facility] [address] [place], [address] IG% 0.400 Normal 0.0-0.9 [facility] Comment on above: Result Comment: IG% - Immature Granulocytes (promyelocytes, myelocytes and metamyelocytes) > 1% indicates that a LEFT SHIFT is Present. Performed By: #### L 500.2500, L501.4020, L100.0100 #### [facility] [address] [place], [address] Lymphocytes/100 WBC (Bld) 25.0 % Normal 19-41 [facility] Comment on above: Performed By: #### L 500.2500, L501.4020, L100.0100 #### [facility] [address] [place], [address] MCH (RBC) [Entitic mass] 29.6 pg Normal 27.0-32.0 [facility] Comment on above: Performed By: #### L 500.2500, L501.4020, L100.0100 #### [facility] [address] [place], [address] MCHC (RBC) [Mass/Vol] 31.7 g/dL Low 32-36 [facility] Comment on above: Performed By: #### L 500.2500, L501.4020, L100.0100 #### [facility] [address] [place], [address] MCV (RBC) [Entitic vol] 93.1 fL Normal 81-99 [facility] Comment on above: Performed By: #### L 500.2500, L501.4020, L100.0100 #### [facility] [address] [place], [address] Monocytes/100 WBC (Bld) 10.9 % High 0-10 [facility] Comment on above: Performed By: #### L 500.2500, L501.4020, L100.0100 #### [facility] [address] [place], [address] Neutrophils/100 WBC (Bld) 57.1 % Normal 47-70 [facility] Comment on above: Performed By: #### L 500.2500, L501.4020, L100.0100 #### [facility] [address] [place], [address] Nucleated RBC (Bld) [#/Vol] 0 10*3/uL Normal 0-5 [facility] Comment on above: Performed By: #### L 500.2500, L501.4020, L100.0100 #### [facility] [address] [place], [address] Platelet mean volume (Bld) [Entitic vol] 9.0 fL Normal 6.2-12.0 [facility] Comment on above: Performed By: #### L 500.2500, L501.4020, L100.0100 #### [facility] [address] [place], [address] Platelets (Bld) [#/Vol] 264 10*3/uL Normal 150-450 [facility] Comment on above: Performed By: #### L 500.2500, L501.4020, L100.0100 #### [facility] [address] [place], [address] RBC (Bld) [#/Vol] 2.91 10*6/uL Low 4.2-5.4 [facility] Comment on above: Performed By: #### L 500.2500, L501.4020, L100.0100 #### [facility] [address] [place], [address] RDW SD 48.5 fl High 35.1-43.9 [facility] Comment on above: Performed By: #### L 500.2500, L501.4020, L100.0100 #### [facility] [address] [place], [address] WBC (Bld) [#/Vol] 5.0 10*3/uL Normal 4.4-11.0 [facility] Comment on above: Performed By: #### L 500.2500, L501.4020, L100.0100 #### [facility] [address] [place], [address] Comprehensive Metabolic Prof ilon 11-23-2024 Albumin [Mass/Vol] 2.9 g/dL Low 3.2-5.0 [facility] Comment on above: Performed By: #### L 500.2500, L501.4020, L100.0100 #### [facility] [address] [place], [address] Albumin/Globulin [Mass ratio] 1.1 {ratio} Normal 0.9-2.4 [facility] Comment on above: Performed By: #### L 500.2500, L501.4020, L100.0100 #### [facility] [address] [place], [address] ALK P 63 U/L Normal 45-117 [facility] Comment on above: Performed By: #### L 500.2500, L501.4020, L100.0100 #### [facility] [address] [place], [address] ALT [Catalytic activity/Vol] 13 U/L Normal 13-56 [facility] Comment on above: Performed By: #### L 500.2500, L501.4020, L100.0100 #### [facility] [address] [place], [address] AST [Catalytic activity/Vol] 15 U/L Normal 15-37 [facility] Comment on above: Performed By: #### L 500.2500, L501.4020, L100.0100 #### [facility] [address] [place], [address] Bilirubin [Mass/Vol] 0.30 mg/dL Normal 0.20-1.00 [facility] Comment on above: Result Comment: For patients on eltrombopag therapy, use of Dimension [place] TBIL is not recommended. Performed By: #### L 500.2500, L501.4020, L100.0100 #### [facility] [address] [place], [address] BUN/CRE 24.8 RATIO High 10-20 [facility] Comment on above: Performed By: #### L 500.2500, L501.4020, L100.0100 #### [facility] [address] [place], [address] CA,Total 8.3 mg/dL Low 8.5-10.1 [facility] Comment on above: Performed By: #### L 500.2500, L501.4020, L100.0100 #### [facility] [address] [place], [address] Chloride [Moles/Vol] 104 mmol/L Normal 98-107 [facility] Comment on above: Performed By: #### L 500.2500, L501.4020, L100.0100 #### [facility] [address] [place], [address] CO2 [Moles/Vol] 23.0 mmol/L Normal 21.0-32.0 [facility] Comment on above: Performed By: #### L 500.2500, L501.4020, L100.0100 #### [facility] [address] [place], [address] Creatinine [Mass/Vol] 1.17 mg/dL High 0.55-1.02 [facility] Comment on above: Result Comment: The validity of the calculated GFR GFRAA in patients over 70 years has not been determined. Clinical correlation is essential. Performed By: #### L 500.2500, L501.4020, L100.0100 #### [facility] [address] [place], [address] ECRCL 29.25 ml/min Normal [facility] Comment on above: Performed By: #### L 500.2500, L501.4020, L100.0100 #### [facility] [address] [place], [address] EST GFR - AA 56 mL/min Low >60 [facility] Comment on above: Result Comment: Afri can Tristanian GFR Calc Performed By: #### L 500.2500, L501.4020, L100.0100 #### [facility] [address] [place], [address] GAP 6 Normal 5-15 [facility] Comment on above: Performed By: #### L 500.2500, L501.4020, L100.0100 #### [facility] [address] [place], [address] GFR/1.73 sq M.predicted among non-blacks MDRD (S/P/Bld) [Vol rate/Area] 46 mL/min/{1.73_m2} Low >60 [facility] Comment on above: Result Comment: Non- GFR Calc Performed By: #### L 500.2500, L501.4020, L100.0100 #### [facility] [address] [place], [address] Globulin (S) [Mass/Vol] 2.7 g/dL Normal 2.2-4.2 [facility] Comment on above: Performed By: #### L 500.2500, L501.4020, L100.0100 #### [facility] [address] [place], [address] Glucose [Mass/Vol] 92 mg/dL Normal 74-106 [facility] Comment on above: Performed By: #### L 500.2500, L501.4020, L100.0100 #### [facility] [address] [place], [address] Potassium [Moles/Vol] 4.6 mmol/L Normal 3.5-5.1 [facility] Comment on above: Performed By: #### L 500.2500, L501.4020, L100.0100 #### [facility] [address] [place], [address] Sodium [Moles/Vol] 133 mmol/L Low 136-145 [facility] Comment on above: Performed By: #### L 500.2500, L501.4020, L100.0100 #### [facility] [address] [place], [address] T PROT 5.6 g/dL Low 6.4-8.2 [facility] Comment on above: Performed By: #### L 500.2500, L501.4020, L100.0100 #### [facility] [address] [place], [address] Urea nitrogen [Mass/Vol] 29 mg/dL High 7-18 [facility] Comment on above: Performed By: #### L 500.2500, L501.4020, L100.0100 #### [facility] [address] [place], [address] Osmolality, Serumon 11-23-19 25 OSMOLALITY,SER 285 mOsm/KG Normal 280-301 [facility] Comment on above: Performed By: #### L 500.2500, L501.4020, L100.0100 #### [facility] [address] [place], [address] Osmolality, Urineon 1620 25 OSMOLALITY,UR 383 mOsm/KG Normal [facility] Comment on above: Result Comment: Normal Urine Reference Ranges Random: 50 - 1200 mOsm/kg H20 depending on fluid intake Random: >850 mOsm/kg after 12 hour fluid restriction 24 hour: 300 - 900 mOsm/kg H2O Performed By: #### L 501.7400 #### [facility] [address] [place], [address] Phosphoruson 11-23-2024 Phosphate [Mass/Vol] 3.9 mg/dL Normal 2.5-4.9 [facility] Comment on above: Performed By: #### L 500.2500, L501.4020, L100.0100 #### [facility] [address] [place], [address] 12 Lead EKGon 11-22-2024 12 Lead EKG [facility] Services [address] [place] [address] 12 Lead EKG 11/22/241945 MR#: [id number] Acct: [id number] Name: MARLI ROSALES Rep #: [id number] : 1935 88 From: Deshawn Bella MD Attending Dr: Dr. Wai Neal MD Status: ADM IN Ordering Dr: Teto Toscano GEAR NICKERKristina Date: 11/22/24 [place] [facility] [place] Sex: F C Admitted: 11/22/24 Test Reason : FALL Blood Pressure : */* mmHG Vent. Rate : 78 BPM Atrial Rate : 78 BPM P-R Int : 158 ms QRS Dur : 82 ms QT Int : 374 ms P-R-T Axes : 67 -26 53 degrees QTcB Int : 426 ms Sinus rhythm with Premature atrial complexes Cannot rule out Anterior infarct , age undetermined Abnormal ECG Confirmed by KOFI LE, ANTONIETA ([id number]), editor book JOSE G ELIZABETH ([id number]) on 11/24/2024 8:22:34 AM Referred By: Joni Torres Confirmed By: ANTONIETA BELLA MD 11/24/24 0822 Date Deshawn Bella MD CC: ELSY Toscano; Dr. Joni Torres DO; Dr. Roma Grajeda DO; Dr. Wai Neal MD Signed Normal [facility] Basic Metabolic Profile (BMP )on 11-22-2024 BUN/CRE 22.0 RATIO High 10-20 [facility] Comment on above: Order Comment: 'TROP ' Serial specimen #1, #2 or #3: 1 Performed By: #### L 500.2500, L501.4020, L100.0100 #### [facility] [address] [place], [address] CA,Total 9.1 mg/dL Normal 8.5-10.1 [facility] Comment on above: Order Comment: 'TROP ' Serial specimen #1, #2 or #3: 1 Performed By: #### L 500.2500, L501.4020, L100.0100 #### [facility] [address] [place], [address] Chloride [Moles/Vol] 94 mmol/L Low 98-107 [facility] Comment on above: Order Comment: 'TROP ' Serial specimen #1, #2 or #3: 1 Performed By: #### L 500.2500, L501.4020, L100.0100 #### [facility] [address] [place], [address] CO2 [Moles/Vol] 25.0 mmol/L Normal 21.0-32.0 [facility] Comment on above: Order Comment: 'TROP ' Serial specimen #1, #2 or #3: 1 Performed By: #### L 500.2500, L501.4020, L100.0100 #### [facility] [address] [place], [address] Creatinine [Mass/Vol] 1.77 mg/dL High 0.55-1.02 [facility] Comment on above: Order Comment: 'TROP ' Serial specimen #1, #2 or #3: 1 Result Comment: The validity of the calculated GFR GFRAA in patients over 70 years has not been determined. Clinical correlation is essential. Performed By: #### L 500.2500, L501.4020, L100.0100 #### [facility] [address] [place], [address] EST GFR - AA 35 mL/min Low >60 [facility] Comment on above: Order Comment: 'TROP ' Serial specimen #1, #2 or #3: 1 Result Comment: Afri can Tristanian GFR Calc Performed By: #### L 500.2500, L501.4020, L100.0100 #### [facility] [address] [place], [address] GAP 8 Normal 5-15 [facility] Comment on above: Order Comment: 'TROP ' Serial specimen #1, #2 or #3: 1 Performed By: #### L 500.2500, L501.4020, L100.0100 #### [facility] [address] [place], [address] GFR/1.73 sq M.predicted among non-blacks MDRD (S/P/Bld) [Vol rate/Area] 29 mL/min/{1.73_m2} Low >60 [facility] Comment on above: Order Comment: 'TROP ' Serial specimen #1, #2 or #3: 1 Result Comment: Non- GFR Calc Performed By: #### L 500.2500, L501.4020, L100.0100 #### [facility] [address] [place], [address] Glucose [Mass/Vol] 122 mg/dL High 74-106 [facility] Comment on above: Order Comment: 'TROP ' Serial specimen #1, #2 or #3: 1 Result Comment: Fast ing Glucose result from 100 to 125 mg/dL suggests IMPAIRED HOMEOSTASIS per A.D.A. criteria. Performed By: #### L 500.2500, L501.4020, L100.0100 #### [facility] [address] [place], [address] Potassium [Moles/Vol] 5.1 mmol/L Normal 3.5-5.1 [facility] Comment on above: Order Comment: 'TROP ' Serial specimen #1, #2 or #3: 1 Performed By: #### L 500.2500, L501.4020, L100.0100 #### [facility] [address] [place], [address] Sodium [Moles/Vol] 128 mmol/L Low 136-145 [facility] Comment on above: Order Comment: 'TROP ' Serial specimen #1, #2 or #3: 1 Performed By: #### L 500.2500, L501.4020, L100.0100 #### [facility] [address] [place], [address] Urea nitrogen [Mass/Vol] 39 mg/dL High 7-18 [facility] Comment on above: Order Comment: 'TROP ' Serial specimen #1, #2 or #3: 1 Performed By: #### L 500.2500, L501.4020, L100.0100 #### [facility] [address] [place], [address] Brain/Head without Contrasto n 11-22-2024 Brain/Head without Contrast [facility] Imaging Services [address] [place] [address] Brain/Head without Contrast MR#: [id number] Acct: [id number] Name: MARLI ROSALES Rep #: [id number] : 1935 F 88 From: Natalya Villa MD PCP: Dr. Roma Grajeda, Status: PRE ER Study: Brain/Head without Contrast Date of Exam: 11/08 03/01 Exam# [id number] Ordering Dr: Teto Toscano GEAR NICKER-C EXAM: BRAIN/HEAD WITHOUT CONTRAST CLINICAL HISTORY: Head injury COMPARISON: 09/28/2023 TECHNIQUE: Noncontrast images of the head with multiplanar reconstructions. Dose reduction techniques were used including intermediate exposure control (AEC),iterative reconstruction technique, and/or mA and/or KV dose adjustments based on patient's size. FINDINGS: No acute intracranial hemorrhage. No loss of alas-white differentiation.Ther e are moderate confluent areas of deep white matter hypoattenuation, which has slightly progressed since the previous study.The ventricles and sulci are prominent. The osseous structures are unremarkable. No soft tissue abnormality identified. The paranasal sinuses and mastoid air cells are clear. CT/Brain/Head without Contrast IMPRESSION: 1. No acute intracranial abnormality. 2. Ventriculomegaly appears similar to the previous exam, may be due to age-related atrophy. Normal pressure hydrocephalus can be considered in the appropriate clinical scenario. 3. 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 Reading Location: [facility] CC: ELSY Toscano; Dr. Roma Grajeda DO Draw String Knotter: Signed Normal [facility] CBC W/Diff, Automatedon 02- Absolute Lymph 1.20 X10 3/uL Normal 0.83-4.51 [facility] Comment on above: Performed By: #### L 500.2500, L501.4020, L100.0100 #### [facility] [address] [place], [address] Absolute Neut 4.5 X10 3/uL Normal 2.0-7.7 [facility] Comment on above: Performed By: #### L 500.2500, L501.4020, L100.0100 #### [facility] [address] [place], [address] Basophils/100 WBC (Bld) 0.5 % Normal 0-1 [facility] Comment on above: Performed By: #### L 500.2500, L501.4020, L100.0100 #### [facility] [address] [place], [address] Eosinophils/100 WBC (Bld) 3.0 % Normal 0-5 [facility] Comment on above: Performed By: #### L 500.2500, L501.4020, L100.0100 #### [facility] [address] [place], [address] Erythrocyte distribution width (RBC) [Ratio] 14.2 % Normal 11.6-14.6 [facility] Comment on above: Performed By: #### L 500.2500, L501.4020, L100.0100 #### [facility] [address] [place], [address] Hematocrit (Bld) [Volume fraction] 33.2 % Low 37-47 [facility] Comment on above: Performed By: #### L 500.2500, L501.4020, L100.0100 #### [facility] [address] [place], [address] Hemoglobin (Bld) [Mass/Vol] 10.4 g/dL Low 12.0-15.0 [facility] Comment on above: Performed By: #### L 500.2500, L501.4020, L100.0100 #### [facility] [address] [place], [address] IG% 0.300 Normal 0.0-0.9 [facility] Comment on above: Result Comment: IG% - Immature Granulocytes (promyelocytes, myelocytes and metamyelocytes) > 1% indicates that a LEFT SHIFT is Present. Performed By: #### L 500.2500, L501.4020, L100.0100 #### [facility] [address] [place], [address] Lymphocytes/100 WBC (Bld) 18.0 % Low 19-41 [facility] Comment on above: Performed By: #### L 500.2500, L501.4020, L100.0100 #### [facility] [address] [place], [address] MCH (RBC) [Entitic mass] 29.1 pg Normal 27.0-32.0 [facility] Comment on above: Performed By: #### L 500.2500, L501.4020, L100.0100 #### [facility] [address] [place], [address] MCHC (RBC) [Mass/Vol] 31.3 g/dL Low 32-36 [facility] Comment on above: Performed By: #### L 500.2500, L501.4020, L100.0100 #### [facility] [address] [place], [address] MCV (RBC) [Entitic vol] 92.7 fL Normal 81-99 [facility] Comment on above: Performed By: #### L 500.2500, L501.4020, L100.0100 #### [facility] [address] [place], [address] Monocytes/100 WBC (Bld) 11.0 % High 0-10 [facility] Comment on above: Performed By: #### L 500.2500, L501.4020, L100.0100 #### [facility] [address] [place], [address] Neutrophils/100 WBC (Bld) 67.2 % Normal 47-70 [facility] Comment on above: Performed By: #### L 500.2500, L501.4020, L100.0100 #### [facility] [address] [place], [address] Nucleated RBC (Bld) [#/Vol] 0 10*3/uL Normal 0-5 [facility] Comment on above: Performed By: #### L 500.2500, L501.4020, L100.0100 #### [facility] [address] [place], [address] Platelet mean volume (Bld) [Entitic vol] 8.9 fL Normal 6.2-12.0 [facility] Comment on above: Performed By: #### L 500.2500, L501.4020, L100.0100 #### [facility] [address] [place], [address] Platelets (Bld) [#/Vol] 313 10*3/uL Normal 150-450 [facility] Comment on above: Performed By: #### L 500.2500, L501.4020, L100.0100 #### [facility] [address] [place], [address] RBC (Bld) [#/Vol] 3.58 10*6/uL Low 4.2-5.4 [facility] Comment on above: Performed By: #### L 500.2500, L501.4020, L100.0100 #### [facility] [address] [place], [address] RDW SD 48.1 fl High 35.1-43.9 [facility] Comment on above: Performed By: #### L 500.2500, L501.4020, L100.0100 #### [facility] [address] [place], [address] WBC (Bld) [#/Vol] 6.7 10*3/uL Normal 4.4-11.0 [facility] Comment on above: Performed By: #### L 500.2500, L501.4020, L100.0100 #### [facility] [address] [place], [address] Chest 1 View (Portable)on Chest 1 View (Portable) [facility] Imaging Services [address] [place] [address] Chest 1 View (Portable) MR#: [id number] Acct: [id number] Name: MARLI ROSALES Rep #: [id number] : 1935 F 88 From: Natalya Villa MD PCP: Dr. Roma Grajeda DO Status: PRE ER Study: Chest 1 View (Portable) Date of Exam: 11/22/24 Exam# [id number] Ordering Dr: Teto Toscano PROCEDURE: CHEST 1 VIEW (PORTABLE) REASON FOR EXAM: Cough TECHNIQUE: Frontal view of the chest. COMPARISON: 06/08/2024 FINDINGS: Mild peripheral linear opacities are present in the midlung zones bilaterally. There is no pulmonary consolidation. No pleural effusion or pneumothorax. The cardiomediastinal silhouette is unremarkable. Atherosclerotic calcifications are present in the aortic arch. No acute osseous or soft tissue abnormality. A spinal stimulator device is present. There are bilateral shoulder arthroplasties. Surgical clips are present in the right upper quadrant of the abdomen. RAD/Chest 1 View (Portable) IMPRESSION: 1. Mild peripheral linear opacities in the midlung zones bilaterally, possibly due to atelectasis, scarring or mild interstitial edema. Reading Location: [facility] CC: ELSY Toscano; Dr. Roma Grajeda DO Draw String Knotter: Signed Normal [facility] Emergency Department Summary on 11-22-2024 Emergency Department Summary [facility] Medical Records Department [address] [place] [address] Emergency Department Summary 11/22/24 MR#: [id number] Acct: [id number] Name: MARLI ROSALES Rep #: [id number] : 1935 88 From: Teto CHIN PCP: Dr. Roma Grajeda DO Status:ADM IN [place] [facility] [place] [id number] [facility] History of Present Illness Chief Complaint: Fall Narrative Narrative: Patient is an 88-year-old female with history of hypothyroidism, hypertension, chronic back pain was stimulator, who lives at assisted living at [facility] presenting [facility] the [facility] after mechanical fall. Per the patient over the last 48 hours, she feels that she is more weak on her legs. She states that she shakes when she goes for a walk, and today she fell backward striking the back of her head. She denies any other injury. Denies any loss of consciousness. Patient is currently not on any blood thinners. Patient arrives by EMS. She is currently on Bactrim for UTI. [facility] Medical History (Updated 11/22/24 @ 20:[address] Biju Quezada, DO) Irritable bowel syndrome Spinal stenosis of lumbar region History of recent fall Wears hearing aid in both ears Hearing loss, left Hearing loss, right Anemia Anxiety Depression Hypothyroidism Chronic pain Osteoporosis GI bleed GERD (gastroesophageal reflux disease) Wears hearing aid History of depression Alcohol use Walker as ambulation aid Dietary restriction History of hiatal hernia History of GI bleed Celiac disease Gastric reflux Non-smoker Hoarseness History of stress test History of rheumatic fever Thyroid disease Osteoporosis Hypertension Osteoporosis Home Medications ???Medication ???Instructions ???Recorded ???Last Taken ???Type amitriptyline 25 mg tablet 25 mg PO QHS Mood 08/16/20 3 History azelastine 137 mcg (0.1 %) nasal 1 spray NASAL BID SINUS 08/16/20 1 12/05/22 History spray fluticasone propionate 50 1 spray NASAL BID allergies 10/04/23 History mcg/actuation nasal spray,suspension tramadol 50 mg tablet 50 mg PO Q8H Pain 11/09/20 3 History acetaminophen 500 mg tablet 500 mg PO Q6H PRN PRN Pain 1-10 Or 11/22/20 10/04/23 History Fever pantoprazole 40 mg tablet,delayed 40 mg PO BID GERD 11/22/20 History release levothyroxine 75 mcg tablet 75 mcg PO DAILY@0600 Thyroid #30 0 11/25/20 10/04/23 Rx tabs lisinopril 20 mg tablet 20 mg PO DAILY BP 01/30/21 3 History amlodipine 5 mg tablet 5 mg PO DAILY 07/04/24 Unknown His tory gabapentin 300 mg capsule 300 mg PO TID 07/04/24 Unknown His tory trazodone 50 mg tablet 50 mg PO QHS 07/04/24 Unknown Hist ory cholecalciferol (vitamin D3) 125 125 mcg PO DAILY #0 caps 07/07/24 Unknown Rx mcg (5,000 unit) capsule cephalexin 500 mg capsule 500 mg PO DAILY 11/22/24 Unknown H istory sulfamethoxazole 800 1 tab PO BID 11/22/24 Unknown Hist ory mg-trimethoprim 160 mg tablet Allergy/AdvReac Type Severity Reaction Status Date / Time meperidine (From Demerol) Allergy Unknown NEEDS Verified 11/22/24 20:17 FOLLOW-UP morphine Allergy Unknown NEEDS Verified 11/22/24 20:17 FOLLOW-UP gluten Allergy Food Verified 11/22/24 20:17 Allergy grass pollen-perennial rye, Allergy sinus Verified 11/22/24 20:17 standar (grass pressure poll-perennial rye,std) nitrofurantoin AdvReac Mild Other Verified 11/22/24 20:17 house dust AdvReac Other Verified 11/22/24 20:17 lactose AdvReac Food Verified 11/22/24 20:17 Allergy mold AdvReac Other Verified 11/22/24 20:17 Surgical History S/P hysterectomy History of appendectomy History of biopsy of bladder History of bilateral salpingo-oophorectom y (BSO) History of cystostomy History of shoulder surgery History of right knee surgery History of back surgery History of hysterectomy History of cholecystectomy Social History household members: spouse housing: assisted living facility current occupational status: retired Smoking Status: Never smoker alcohol intake: never ROS ROS ED ROS Narrative Constitutional: Negative for fever, chills, weight loss. Positive for weakness Eyes: Negative for vision loss, vision change, double vision ENT: Negative for any sore throat, ear pain, congestion Cardiovascular: Negative for any chest pain, tightness, palpitations Respiratory: Negative for any cough, sputum production, hemoptysis, dyspnea, dyspnea on exertion, orthopnea Gastrointestinal: Negative for any abdominal pain, nausea, vomiting, diarrhea, constipation, blood in stool, blood in vomit : Negative for any urinary frequency, dysuria, retention, blood in urine Muscle skeletal: Negat (more content not included)... Normal [facility] Folates, (Folic Acid)on 11-08 FOLATES 2.50 ng/mL Low 3.1-55.4 [facility] Comment on above: Order Comment: 'TROP ' Serial specimen #1, #2 or #3: 1 Performed By: #### L 500.2500, L501.4020, L100.0100 #### [facility] [address] [place], [address] H AND P Exam - [facility] 11-22-2024 H&P Exam - Hospitalist [facility] Medical Records Department [address] [place] [address] H P Exam - Hospitalist 11/22/242107 MR#: [id number] Acct: [id number] Name: MARLI ROSALES Rep #: [id number] : 1935 88 From: Joni Torres DO PCP: Dr. Roma Grajeda DO Status:ADM IN [place] [facility] [place] [id number] [facility] General Date of Admission: 11/22/24 Date of Service: 11/22/24 Chief Complaint: Fall. HPI Narrative MARLI ROSALES, is a 88 F with a past medical history of essential hypertension; on lisinopril, hypothyroidism; on levothyroxine, remote history of rheumatic fever, history of asthma, history of closed TBI, neuropathy; on gabapentin 3 times daily, CKD; stage IIIa, history of bladder cancer; s/p cystostomy, overactive bladder, recurrent UTI's, GERD; with history of PUD and GI bleed on pantoprazole twice daily, history of hyponatremia, depression with anxiety; on amitriptyline, presbycusis; with history of ruptured TM, history of hysterectomy with BSO, history of cholecystectomy, osteoporosis, OA; s/p back surgery with subsequent chronic low back pain; s/p spinal stimulator and s/p Right MARIUM with subsequent chronic Right hip pain on chronic Tramadol 50 mg PO TID and Oxycodone 5 mg q. 6 hours PRN who recently fell on July 01, 2024 when she was trying to get up out of a swivel chair at her assisted living facility causing her to fall onto her knees with subsequent severe Right hip pain with imaging negative for obvious fracture so she was discharged back to her facility with subsequent readmission for fall with Right hip pain with CT scan of the pelvis that revealed a hairline fracture of the posterior column of the Right acetabulum on July 04, 2024 with patient then discharged on July 07, 2024 and recent diagnosis of UTI; patient started on oral Bactrim who now returns to [facility] ER complaining of another fall. 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 and she was sent in from there via EMS after mechanical fall. Ms. Rosales reports her symptoms began 48 hours prior to admission with an escalating pattern of generalized weakness and fatigue particularly in her legs. She states that her legs shake when she walks and today she fell backward striking the back of her head but she denies loss of consciousness or significant injury with her fall. Patient is not currently on any blood thinners. She admits to generalized weakness and fatigue but she denies fever, chills, weight loss, changes in vision, sore throat, runny nose, chest pain, shortness of breath, abdominal pain, nausea, vomiting, dysuria, headache, rash or recent bleeding. In the ER she was noted to have evidence of KATT; in the setting of CKD; stage IIIa with elevated serum creatinine of 1.77 mg/dL present on admission (up from her baseline of 0.68 mg/dL last admission) complicated by mild Hyponatremia of 128 mmol/L present on admission in the setting of recent UTI all suspected to be triggered by Adverse Drug Reaction to Bactrim and she was then admitted to the general medical floor for ongoing care for a stay that is expected to extend beyond 2 midnights. [facility] Medical History Irritable bowel syndrome Spinal stenosis of lumbar region History of recent fall Wears hearing aid in both ears Hearing loss, left Hearing loss, right Anemia Anxiety Depression Hypothyroidism Chronic pain Osteoporosis GI bleed GERD (gastroesophageal reflux disease) Wears hearing aid History of depression Alcohol use Walker as ambulation aid Dietary restriction History of hiatal hernia History of GI bleed Celiac disease Gastric reflux Non-smoker Hoarseness History of stress test History of rheumatic fever Thyroid disease Osteoporosis Hypertension Osteoporosis Home Medications ???Medication ???Instructions ???Recorded ???Last Taken ???Type amitriptyline 25 mg tablet 25 mg PO QHS Mood 08/16/2010/03/ 3 History azelastine 137 mcg (0.1 %) nasal 1 spray NASAL BID SINUS 08/16/20 1 12/05/22 History spray fluticasone propionate 50 1 spray NASAL BID allergies 10/04/23 History mcg/actuation nasal spray,suspension tramadol 50 mg tablet 50 mg PO Q8H Pain 11/09/20 3 History acetaminophen 500 mg tablet 500 mg PO Q6H PRN PRN Pain 1-10 Or 11/22/20 10/04/23 History Fever pantoprazole 40 mg tablet,delayed 40 mg PO BID GERD 11/22/20 History release levothyroxine 75 mcg tablet 75 mcg PO DAILY@0600 Thyroid #30 0 11/25/20 10/04/23 Rx tabs lisinopril 20 mg tablet 20 mg PO DAILY BP 01/30/21 3 History gabapentin 300 mg capsule 300 mg PO TID pain 07/04/24 Unknow n History trazodone 50 mg tablet 50 mg PO QHS sleep 07/04/24 Unknow n History cholecalcif (more content not included)... Normal [facility] L501.4020on 11-22-2024 TROPONIN-I HS 7 pg/mL Normal 3.0-54.0 [facility] Comment on above: Order Comment: 'TROP ' Serial specimen #1, #2 or #3: 1 Result Comment: Plea se Note: New Test Units and Gender Specific Reference Ranges. For more information see Policy Stat Procedure [place] High Sensitivity Troponin (TNIH) and attachments. Performed By: #### L 500.2500, L501.4020, L100.0100 #### [facility] [address] [place], [address] M100.678on 11-22-2024 M100.678 SARS-CoV-2 (COVID 19) Negative INFLUENZA A Negative INFLUENZA B Negative RSV PCR Negative Normal [facility] Comment on above: Performed By: #### L 500.2500, L501.4020, L100.0100 #### [facility] [address] [place], [address] Magnesiumon 11-22-2024 Magnesium [Mass/Vol] 2.6 mg/dL Normal 1.6-2.6 [facility] Comment on above: Performed By: #### L 501.5200 #### [facility] [address] [place], [address] Thyroid Stim Hormone (TSH)on 11-22-2024 TSH 3.910 uIU/mL High 0.358-3.740 [facility] Comment on above: Order Comment: 'TROP ' Serial specimen #1, #2 or #3: 1 Performed By: #### L 500.2500, L501.4020, L100.0100 #### [facility] [address] [place], [address] Urinalysis, Completeon 11-22 EPI,SQUAMOUS 50-100 SEEN Normal 5-10 [facility] Comment on above: Order Comment: COLLE CTOR TO SPECIFY Performed By: #### L 400.0001 #### [facility] [address] [place], [address] RBC 0 SEEN Normal 0-5 [facility] Comment on above: Order Comment: COLLE CTOR TO SPECIFY Performed By: #### L 400.0001 #### [facility] [address] [place], [address] BACTERIA 0 SEEN Normal None Seen [facility] Comment on above: Order Comment: COLLE CTOR TO SPECIFY Performed By: #### L 400.0001 #### [facility] [address] [place], [address] Mucus Ql (Urine sed) 0 SEEN Normal [facility] Comment on above: Order Comment: COLLE CTOR TO SPECIFY Performed By: #### L 400.0001 #### [facility] [address] [place], [address] WBC 0 SEEN Normal 0-5 [facility] Comment on above: Order Comment: COLLE CTOR TO SPECIFY Performed By: #### L 400.0001 #### [facility] [address] [place], [address] Basic Metabolic Profile (BMP )on 08-21-2024 BUN Normal 7-18 [facility] Comment on above: Order Comment: 101.2 Result Comment: [facility]ER[facility] E[facility] DISCHARGED FROM FACILITY Performed By: #### L 100.0500, L500.2500 #### [facility] [address] [place], [address] BUN/CRE Normal 10-20 [facility] Comment on above: Order Comment: 101.2 Result Comment: FERCHO ENT DISCHARGED FROM FACILITY Performed By: #### L 100.0500, L500.2500 #### [facility] [address] [place], [address] CA,Total Normal 8.5-10.1 [facility] Comment on above: Order Comment: 101.2 Result Comment: FERCHO ENT DISCHARGED FROM FACILITY Performed By: #### L 100.0500, L500.2500 #### [facility] [address] [place], [address] CL Normal 98-107 [facility] Comment on above: Order Comment: 101.2 Result Comment: FERCHO ENT DISCHARGED FROM FACILITY Performed By: #### L 100.0500, L500.2500 #### [facility] [address] [place], [address] CO2 Normal 21.0-32.0 [facility] Comment on above: Order Comment: 101.2 Result Comment: FERCHO ENT DISCHARGED FROM FACILITY Performed By: #### L 100.0500, L500.2500 #### [facility] [address] [place], [address] CREAT,SERUM Normal 0.55-1.02 [facility] Comment on above: Order Comment: 101.2 Result Comment: FERCHO ENT DISCHARGED FROM FACILITY Performed By: #### L 100.0500, L500.2500 #### [facility] [address] [place], [address] EST GFR Normal >60 [facility] Comment on above: Order Comment: 101.2 Result Comment: FERCHO ENT DISCHARGED FROM FACILITY Performed By: #### L 100.0500, L500.2500 #### [facility] [address] [place], [address] EST GFR - AA Normal >60 [facility] Comment on above: Order Comment: 101.2 Result Comment: FERCHO ENT DISCHARGED FROM FACILITY Performed By: #### L 100.0500, L500.2500 #### [facility] [address] [place], [address] GAP Normal 5-15 [facility] Comment on above: Order Comment: 101.2 Result Comment: FERCHO ENT DISCHARGED FROM FACILITY Performed By: #### L 100.0500, L500.2500 #### [facility] [address] [place], [address] GLU Normal 74-106 [facility] Comment on above: Order Comment: 101.2 Result Comment: FERCHO ENT DISCHARGED FROM FACILITY Performed By: #### L 100.0500, L500.2500 #### [facility] [address] [place], [address] Potassium Normal 3.5-5.1 [facility] Comment on above: Order Comment: 101.2 Result Comment: FERCHO ENT DISCHARGED FROM FACILITY Performed By: #### L 100.0500, L500.2500 #### [facility] [address] [place], [address] Basic Metabolic Profile (BMP) Normal 136-145 [facility] Comment on above: Order Comment: 101.2 Result Comment: FERCHO ENT DISCHARGED FROM FACILITY Performed By: #### L 100.0500, L500.2500 #### [facility] [address] [place], [address] CBC-Complete Blood Cnt No Di ffon 08-21-2024 HCT Normal 37-47 [facility] Comment on above: Order Comment: 101.2 Result Comment: FERCHO ENT DISCHARGED FROM FACILITY Performed By: #### L 100.0500, L500.2500 #### [facility] [address] [place], [address] HGB Normal 12.0-15.0 [facility] Comment on above: Order Comment: 101.2 Result Comment: FERCHO ENT DISCHARGED FROM FACILITY Performed By: #### L 100.0500, L500.2500 #### [facility] [address] [place], [address] MCH Normal 27.0-32.0 [facility] Comment on above: Order Comment: 101.2 Result Comment: FERCHO ENT DISCHARGED FROM FACILITY Performed By: #### L 100.0500, L500.2500 #### [facility] [address] [place], [address] MCHC Normal 32-36 [facility] Comment on above: Order Comment: 101.2 Result Comment: FERCHO ENT DISCHARGED FROM FACILITY Performed By: #### L 100.0500, L500.2500 #### [facility] [address] [place], [address] MCV Normal 81-99 [facility] Comment on above: Order Comment: 101.2 Result Comment: FERCHO ENT DISCHARGED FROM FACILITY Performed By: #### L 100.0500, L500.2500 #### [facility] [address] [place], [address] PLT Normal 150-450 [facility] Comment on above: Order Comment: 101.2 Result Comment: FERCHO ENT DISCHARGED FROM FACILITY Performed By: #### L 100.0500, L500.2500 #### [facility] [address] [place], [address] RBC Normal 4.2-5.4 [facility] Comment on above: Order Comment: 101.2 Result Comment: FERCHO ENT DISCHARGED FROM FACILITY Performed By: #### L 100.0500, L500.2500 #### [facility] [address] [place], [address] RDW CV Normal 11.6-14.6 [facility] Comment on above: Order Comment: 101.2 Result Comment: FERCHO ENT DISCHARGED FROM FACILITY Performed By: #### L 100.0500, L500.2500 #### [facility] [address] [place], [address] RDW SD Normal 35.1-43.9 [facility] Comment on above: Order Comment: 101.2 Result Comment: FERCHO ENT DISCHARGED FROM FACILITY Performed By: #### L 100.0500, L500.2500 #### [facility] [address] [place], [address] WBC Normal 4.4-11.0 [facility] Comment on above: Order Comment: 101.2 Result Comment: FERCHO ENT DISCHARGED FROM FACILITY Performed By: #### L 100.0500, L500.2500 #### [facility] [address] [place], [address] Basic Metabolic Profile (BMP )on 07-22-2024 BUN/CRE 20.5 RATIO High - [facility] Comment on above: Order Comment: 101.1 Performed By: #### L 500.2500, L501.4020, L100.0100 #### [facility] [address] [place], [address] CA,Total 9.0 mg/dL Normal 8.5-10.1 [facility] Comment on above: Order Comment: 101.1 Performed By: #### L 500.2500, L501.4020, L100.0100 #### [facility] [address] [place], [address] Chloride [Moles/Vol] 106 mmol/L Normal 98-107 [facility] Comment on above: Order Comment: 101.1 Performed By: #### L 500.2500, L501.4020, L100.0100 #### [facility] [address] [place], [address] CO2 [Moles/Vol] 25.0 mmol/L Normal 21.0-32.0 [facility] Comment on above: Order Comment: 101.1 Performed By: #### L 500.2500, L501.4020, L100.0100 #### [facility] [address] [place], [address] Creatinine [Mass/Vol] 0.68 mg/dL Normal 0.55-1.02 [facility] Comment on above: Order Comment: 101.1 Result Comment: The validity of the calculated GFR GFRAA in patients over 70 years has not been determined. Clinical correlation is essential. Performed By: #### L 500.2500, L501.4020, L100.0100 #### [facility] [address] [place], [address] EST GFR - AA 104 mL/min Normal >60 [facility] Comment on above: Order Comment: 101.1 Result Comment: Afri can Tristanian GFR Calc Performed By: #### L 500.2500, L501.4020, L100.0100 #### [facility] [address] [place], [address] GAP 7 Normal 5-15 [facility] Comment on above: Order Comment: 101.1 Performed By: #### L 500.2500, L501.4020, L100.0100 #### [facility] [address] [place], [address] GFR/1.73 sq M.predicted among non-blacks MDRD (S/P/Bld) [Vol rate/Area] 86 mL/min/{1.73_m2} Normal >60 [facility] Comment on above: Order Comment: 101.1 Result Comment: Non- GFR Calc Performed By: #### L 500.2500, L501.4020, L100.0100 #### [facility] [address] [place], [address] Glucose [Mass/Vol] 81 mg/dL Normal 74-106 [facility] Comment on above: Order Comment: 101.1 Performed By: #### L 500.2500, L501.4020, L100.0100 #### [facility] [address] [place], [address] Potassium [Moles/Vol] 4.0 mmol/L Normal 3.5-5.1 [facility] Comment on above: Order Comment: 101.1 Performed By: #### L 500.2500, L501.4020, L100.0100 #### [facility] [address] [place], [address] Sodium [Moles/Vol] 138 mmol/L Normal 136-145 [facility] Comment on above: Order Comment: 101.1 Performed By: #### L 500.2500, L501.4020, L100.0100 #### [facility] [address] [place], [address] Urea nitrogen [Mass/Vol] 14 mg/dL Normal 7-18 [facility] Comment on above: Order Comment: 101.1 Performed By: #### L 500.2500, L501.4020, L100.0100 #### [facility] [address] [place], [address] CBC-Complete Blood Cnt No Di ffon 07-22-2024 Erythrocyte distribution width (RBC) [Ratio] 13.2 % Normal 11.6-14.6 [facility] Comment on above: Order Comment: 101.1 Performed By: #### L 500.2500, L501.4020, L100.0100 #### [facility] [address] [place], [address] Hematocrit (Bld) [Volume fraction] 29.7 % Low 37-47 [facility] Comment on above: Order Comment: 101.1 Performed By: #### L 500.2500, L501.4020, L100.0100 #### [facility] [address] [place], [address] Hemoglobin (Bld) [Mass/Vol] 9.6 g/dL Low 12.0-15.0 [facility] Comment on above: Order Comment: 101.1 Performed By: #### L 500.2500, L501.4020, L100.0100 #### [facility] [address] [place], [address] MCH (RBC) [Entitic mass] 29.7 pg Normal 27.0-32.0 [facility] Comment on above: Order Comment: 101.1 Performed By: #### L 500.2500, L501.4020, L100.0100 #### [facility] [address] [place], [address] MCHC (RBC) [Mass/Vol] 32.3 g/dL Normal 32-36 [facility] Comment on above: Order Comment: 101.1 Performed By: #### L 500.2500, L501.4020, L100.0100 #### [facility] [address] [place], [address] MCV (RBC) [Entitic vol] 92.0 fL Normal 81-99 [facility] Comment on above: Order Comment: 101.1 Performed By: #### L 500.2500, L501.4020, L100.0100 #### [facility] [address] [place], [address] Platelet mean volume (Bld) [Entitic vol] 8.7 fL Normal 6.2-12.0 [facility] Comment on above: Order Comment: 101.1 Performed By: #### L 500.2500, L501.4020, L100.0100 #### [facility] [address] [place], [address] Platelets (Bld) [#/Vol] 312 10*3/uL Normal 150-450 [facility] Comment on above: Order Comment: 101.1 Performed By: #### L 500.2500, L501.4020, L100.0100 #### [facility] [address] [place], [address] RBC (Bld) [#/Vol] 3.23 10*6/uL Low 4.2-5.4 [facility] Comment on above: Order Comment: 101.1 Performed By: #### L 500.2500, L501.4020, L100.0100 #### [facility] [address] [place], [address] RDW SD 44.4 fl High 35.1-43.9 [facility] Comment on above: Order Comment: 101.1 Performed By: #### L 500.2500, L501.4020, L100.0100 #### [facility] [address] [place], [address] WBC (Bld) [#/Vol] 6.1 10*3/uL Normal 4.4-11.0 [facility] Comment on above: Order Comment: 101.1 Performed By: #### L 500.2500, L501.4020, L100.0100 #### [facility] [address] [place], [address] Discharge Instructionon 06-10 Discharge Instruction [facility] Medical Records Department [address] [place] [address] Instructions for Home/Discharge Instructions 07/07/24 1731 MR#: [id number] Acct: [id number] Name: MARLI ROSALES Rep #: [id number] : [id number] From: Reinier Rojas DO PCP: Dr. Roma Grajeda, DO Status:ADM HAIM Discharge Instructions Diet Discharge Diet: No restrictions Activity Weight Bearing Status: Toe touch weight bearing (Right leg, avoid deep flexion or internal rotation, use a walker) Follow Up Care Test Results: Test results from this visit will be discussed in further detail at your follow-up appointment, if applicable. Discharge Plan Admission Admit Date/Time: 07/04/24 21:20 Primary Reason for Your Visit: Right acetabular fracture-nonoperable Attending Provider: Reinier Rojas Primary Care Provider: Roma Grajeda Consulting Providers: Joni Torres Instructions Forms: [facility] Referral Patient Instructions: ED Pelvic Fracture Discharge Orders/Prescriptions Prescriptions: New ciprofloxacin HCl 250 mg Tablet 250 mg PO BID Qty: 8 0RF cholecalciferol (vitamin D3) 125 mcg (5,000 unit) Capsule 125 mcg PO DAILY Qty: 0 0RF hydrocodone-acetamin ophen 5-325 mg tablet 1 tab PO Q6H PRN (Reason: pain) 5 Days Qty: 20 0RF Continued amitriptyline 25 MG tablet 25 mg PO QHS azelastine 1 SPRAY aerosol,spray 1 spray NASAL BID fluticasone propionate 1 SPRAY spray,suspension 1 spray NASAL BID tramadol 50 MG tablet 50 mg PO Q8H acetaminophen 500 MG tablet 500 mg PO Q6H PRN PRN (Reason: Pain 1-10 Or Fever) pantoprazole 40 MG tablet 40 mg PO BID levothyroxine 75 MCG tablet 75 mcg PO DAILY@0600 Qty: 30 0RF lisinopril 20 MG tablet 20 mg PO DAILY trazodone 50 mg tablet 50 mg PO QHS amlodipine 5 mg tablet 5 mg PO DAILY gabapentin 300 mg capsule 300 mg PO TID Discontinued cephalexin 500 mg capsule 500 mg PO Q8 Patient Comments: TAKES FOR PROPHYLACTIC UTI MANAGEMENT cephalexin 250 mg capsule 250 mg PO DAILY Referrals / Follow Up: Roma Grajeda DO [Primary Care Provider] - Patricio Lucas DO [Med Staff - Active Staff] - See Referral Note (Call the office to make an appointment for 2 to 3 weeks) Disposition Disposition (needs filled in before D/C Order can be placed): Assisted Living 07/07/24 1751 Reinier Rojas DO CC: Dr. Joni Torres DO; Dr. Roma Grajeda DO Signed Normal [facility] Urinalysis, Completeon 07-05 BACTERIA 3+ /hpf Normal None Seen [facility] Comment on above: Order Comment: COLLE CTOR TO SPECIFY Performed By: #### L 500.2500, L501.4020, L100.0100 #### [facility] [address] [place], [address] WBC 0-5 SEEN Normal 0-5 [facility] Comment on above: Order Comment: COLLE CTOR TO SPECIFY Performed By: #### L 500.2500, L501.4020, L100.0100 #### [facility] [address] [place], [address] EPI,SQUAMOUS 0 SEEN Normal 5-10 [facility] Comment on above: Order Comment: COLLE CTOR TO SPECIFY Performed By: #### L 500.2500, L501.4020, L100.0100 #### [facility] [address] [place], [address] Mucus Ql (Urine sed) 0 SEEN Normal [facility] Comment on above: Order Comment: COLLE CTOR TO SPECIFY Performed By: #### L 500.2500, L501.4020, L100.0100 #### [facility] [address] [place], [address] RBC 0 SEEN Normal 0-5 [facility] Comment on above: Order Comment: COLLE CTOR TO SPECIFY Performed By: #### L 500.2500, L501.4020, L100.0100 #### [facility] [address] [place], [address] Basic Metabolic Profile (BMP )on 07-04-2024 BUN/CRE 24.1 RATIO High 10-20 [facility] Comment on above: Performed By: #### L 500.2500, L100.0500 #### [facility] [address] [place], [address] CA,Total 9.3 mg/dL Normal 8.5-10.1 [facility] Comment on above: Performed By: #### L 500.2500, L100.0500 #### [facility] [address] [place], [address] Chloride [Moles/Vol] 103 mmol/L Normal 98-107 [facility] Comment on above: Performed By: #### L 500.2500, L100.0500 #### [facility] [address] [place], [address] CO2 [Moles/Vol] 26.0 mmol/L Normal 21.0-32.0 [facility] Comment on above: Performed By: #### L 500.2500, L100.0500 #### [facility] [address] [place], [address] Creatinine [Mass/Vol] 0.75 mg/dL Normal 0.55-1.02 [facility] Comment on above: Result Comment: The validity of the calculated GFR GFRAA in patients over 70 years has not been determined. Clinical correlation is essential. Performed By: #### L 500.2500, L100.0500 #### [facility] [address] [place], [address] ECRCL 48.62 ml/min Normal [facility] Comment on above: Performed By: #### L 500.2500, L100.0500 #### [facility] [address] [place], [address] EST GFR - AA 94 mL/min Normal >60 [facility] Comment on above: Result Comment: Afri can Tristanian GFR Calc Performed By: #### L 500.2500, L100.0500 #### [facility] [address] [place], [address] GAP 6 Normal 5-15 [facility] Comment on above: Performed By: #### L 500.2500, L100.0500 #### [facility] [address] [place], [address] GFR/1.73 sq M.predicted among non-blacks MDRD (S/P/Bld) [Vol rate/Area] 78 mL/min/{1.73_m2} Normal >60 [facility] Comment on above: Result Comment: Non- GFR Calc Performed By: #### L 500.2500, L100.0500 #### [facility] [address] [place], [address] Glucose [Mass/Vol] 100 mg/dL Normal 74-106 [facility] Comment on above: Result Comment: Fast ing Glucose result from 100 to 125 mg/dL suggests IMPAIRED HOMEOSTASIS per A.D.A. criteria. Performed By: #### L 500.2500, L100.0500 #### [facility] [address] [place], [address] Potassium [Moles/Vol] 4.2 mmol/L Normal 3.5-5.1 [facility] Comment on above: Performed By: #### L 500.2500, L100.0500 #### [facility] [address] [place], [address] Sodium [Moles/Vol] 135 mmol/L Low 136-145 [facility] Comment on above: Performed By: #### L 500.2500, L100.0500 #### [facility] [address] [place], [address] Urea nitrogen [Mass/Vol] 18 mg/dL Normal 7-18 [facility] Comment on above: Performed By: #### L 500.2500, L100.0500 #### [facility] [address] [place], [address] CBC-Complete Blood Cnt No Di ffon 07-04-2024 Erythrocyte distribution width (RBC) [Ratio] 13.9 % Normal 11.6-14.6 [facility] Comment on above: Performed By: #### L 500.2500, L100.0500 #### [facility] [address] [place], [address] Hematocrit (Bld) [Volume fraction] 32.5 % Low 37-47 [facility] Comment on above: Performed By: #### L 500.2500, L100.0500 #### [facility] [address] [place], [address] Hemoglobin (Bld) [Mass/Vol] 10.5 g/dL Low 12.0-15.0 [facility] Comment on above: Performed By: #### L 500.2500, L100.0500 #### [facility] [address] [place], [address] MCH (RBC) [Entitic mass] 29.7 pg Normal 27.0-32.0 [facility] Comment on above: Performed By: #### L 500.2500, L100.0500 #### [facility] [address] [place], [address] MCHC (RBC) [Mass/Vol] 32.3 g/dL Normal 32-36 [facility] Comment on above: Performed By: #### L 500.2500, L100.0500 #### [facility] [address] [place], [address] MCV (RBC) [Entitic vol] 91.8 fL Normal 81-99 [facility] Comment on above: Performed By: #### L 500.2500, L100.0500 #### [facility] [address] [place], [address] Platelet mean volume (Bld) [Entitic vol] 8.6 fL Normal 6.2-12.0 [facility] Comment on above: Performed By: #### L 500.2500, L100.0500 #### [facility] [address] [place], [address] Platelets (Bld) [#/Vol] 293 10*3/uL Normal 150-450 [facility] Comment on above: Performed By: #### L 500.2500, L100.0500 #### [facility] [address] [place], [address] RBC (Bld) [#/Vol] 3.54 10*6/uL Low 4.2-5.4 [facility] Comment on above: Performed By: #### L 500.2500, L100.0500 #### [facility] [address] [place], [address] RDW SD 47.1 fl High 35.1-43.9 [facility] Comment on above: Performed By: #### L 500.2500, L100.0500 #### [facility] [address] [place], [address] WBC (Bld) [#/Vol] 6.2 10*3/uL Normal 4.4-11.0 [facility] Comment on above: Performed By: #### L 500.2500, L100.0500 #### [facility] [address] [place], [address] Emergency Department Summary on 07-04-2024 Emergency Department Summary [facility] Medical Records Department [address] [place] [address] Emergency Department Summary 07/04/24 MR#: [id number] Acct: [id number] Name: MARLI ROSALES Rep #: [id number] : 1935 88 From: Roscoe Ma DO PCP: Dr. Roma Grajeda, DO Status:ADM [facility] Location: [address] History of Present Illness Chief Complaint: Lower Extremity Injury [facility] Medical History History of recent fall Wears hearing aid in both ears Hearing loss, left Hearing loss, right Anemia Anxiety Depression Hypothyroidism Chronic pain Osteoporosis GI bleed GERD (gastroesophageal reflux disease) Wears hearing aid History of depression Alcohol use Walker as ambulation aid Dietary restriction History of hiatal hernia History of GI bleed Celiac disease Gastric reflux Non-smoker Hoarseness History of stress test History of rheumatic fever Thyroid disease Osteoporosis Hypertension Home Medications ???Medication ???Instructions ???Recorded ???Last Taken ???Type amitriptyline 25 mg tablet 25 mg PO QHS Mood 08/16/20 10/03/23 History azelastine 137 mcg (0.1 %) nasal 1 spray NASAL BID SINUS 08/16/20 10/04/23 History spray fluticasone propionate 50 1 spray NASAL BID allergies 08/16/20 10/04/23 History mcg/actuation nasal spray,suspension tramadol 50 mg tablet 50 mg PO Q8H Pain 11/09/20 10/04/23 History acetaminophen 500 mg tablet 500 mg PO Q6H PRN PRN Pain 1-10 Or 11/22/20 10/04/23 History Fever pantoprazole 40 mg tablet,delayed 40 mg PO BID GERD 11/22/20 10/04/23 History release levothyroxine 75 mcg tablet 75 mcg PO DAILY@0600 Thyroid #30 11/25/20 10/04/23 Rx tabs lisinopril 20 mg tablet 20 mg PO DAILY BP 01/30/21 10/04/23 History amlodipine 5 mg tablet 5 mg PO DAILY 07/04/24 Unknown History cephalexin 250 mg capsule 250 mg PO DAILY 07/04/24 Unknown History cephalexin 500 mg capsule 500 mg PO Q8 07/04/24 Unknown History gabapentin 300 mg capsule 300 mg PO TID 07/04/24 Unknown History oxycodone 5 mg tablet 5 mg PO Q6H PRN pain 5 days #20 07/04/24 Unknown Rx tabs trazodone 50 mg tablet 50 mg PO QHS 07/04/24 Unknown History Allergy/AdvReac Type Severity Reaction Status Date / Time gluten Allergy Food Verified 07/04/24 16:02 Allergy grass pollen-perennial rye, Allergy sinus Verified 07/04/24 16:02 standar (grass pressure poll-perennial rye,std) house dust AdvReac Other Verified 07/04/24 16:02 lactose AdvReac Food Verified 07/04/24 16:02 Allergy mold AdvReac Other Verified 07/04/24 16:02 Surgical History (Updated 07/04/24 @ 22:21 by Gay Alvarez) S/P hysterectomy History of appendectomy History of biopsy of bladder History of bilateral salpingo-oophorectom y (BSO) History of cystostomy History of shoulder surgery History of right knee surgery History of back surgery History of hysterectomy History of cholecystectomy Social History household members: spouse housing: assisted living facility current occupational status: retired Smoking Status: Never smoker alcohol intake: never EXAM Physical Exam Const Vital Signs: 07/04/24 16:02 07/04/24 19:57 07/04/24 21:06 Temperature 96.3 F L 98.5 F 98.7 F Temperature Source Temporal Oral Pulse Rate 78 86 80 Respiratory Rate 16 16 16 Blood Pressure 140/78 H 142/62 H 160/73 H Blood Pressure Mean 98 88 102 Pulse Ox 97 93 98 Oxygen Delivery Method Room Air Room Air [facility] Medical decision making narrative: HISTORY OF PRESENT ILLNESS: 88-year-old female presents with right hip/pelvic pain. No she was seen in the ED on Sunday and had negative x-rays. Denies urinary complaints. Denies any new falls. Says the pain is more severe than she would expect. REVIEW OF SYSTEMS: Pertinent positives: Hip pain Pertinent negatives: Urinary complaints PHYSICAL EXAM: Nursing triage notes reviewed, Vital signs reviewed Constitutional: please see mdm HENT: MMM Eyes: Pupils equal round and reactive to light, Extraocular muscles intact Neck: No stridor, no JVD, full neck ROM Lungs: Clear to auscultation, No wheezing or rales. No increased work of breathing, no conversational dyspnea, no accessory muscle use, no nasal flaring. No respiratory distress noted Heart: Regular rate and rhythm, No murmurs, No rubs and No gallops, 2+ distal pulses (radial, femoral, posterior tibial) in all extremities Abdomen: Soft, there is no tenderness, rigidity, rebound or guarding, no obvious peritoneal signs, no palpable pulsatile abdominal masses, no auscultated abdominal bruit : No CVAT Extremities: No edema, TTP over right hip Neuro: Intact movement, sensatio (more content not included)... Normal [facility] H AND P Exam - Hospitaliston 07-04-2024 H&P Exam - Hospitalist [facility] Medical Records Department [address] [place] [address] H P Exam - Hospitalist 07/04/242039 MR#: [id number] Acct: [id number] Name: MARLI ROSALES Rep #: [id number] : 1935 88 From: Joni Torres DO PCP: Dr. Roma Grajeda DO Status:ADM [facility] Location: FL3 BW053-1 [facility] - General General Date of Admission: 07/04/24 Date of Service: 07/04/24 Chief Complaint: Fall with Right Hip Pain. [facility] Narrative MARLI ROSALES, is a 88 F with a past medical history of essential hypertension, hypothyroidism, history of rheumatic fever, history of asthma, history of closed TBI, neuropathy, history of bladder cancer; s/p cystostomy, overactive bladder, recurrent UTI's, GERD; with history of PUD and GI bleed, history of hyponatremia, depression with anxiety, presbycusis; with history of ruptured TM, history of hysterectomy with BSO, history of cholecystectomy, osteoporosis, OA; s/p back surgery with subsequent chronic low back pain and s/p Right MARIUM with subsequent chronic Right hip pain on chronic Tramadol 50 mg PO TID and Oxycodone 5 mg q. 6 hours PRN who recently fell on July 01, 2024 when she was trying to get up out of a swivel chair at her assisted living facility causing her to fall onto her knees with subsequent severe Right hip pain with imaging negative for obvious fracture so she was discharged back to her facility who returns to [facility] ER complaining of persistent Right hip pain. 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 There was no associated fever, chills, nausea, vomiting, diarrhea, constipation, chest pain, palpitations or SOB. She denies any new falls. In the ER she underwent a CT scan of the pelvis that revealed a hairline fracture of the posterior column of the Right acetabulum complicated by clinical evidence of generalized weakness with ambulatory dysfunction and an acute exacerbation of her chronic pain syndrome and she was then admitted to the general medical floor under observation status for ongoing care for a stay that is expected to be less than 2 midnights. [facility] Medical History History of recent fall Wears hearing aid in both ears Hearing loss, left Hearing loss, right Anemia Anxiety Depression Hypothyroidism Chronic pain Osteoporosis GI bleed GERD (gastroesophageal reflux disease) Wears hearing aid History of depression Alcohol use Walker as ambulation aid Dietary restriction History of hiatal hernia History of GI bleed Celiac disease Gastric reflux Non-smoker Hoarseness History of stress test History of rheumatic fever Thyroid disease Osteoporosis Hypertension Home Medications ???Medication ???Instructions ???Recorded ???Last Taken ???Type amitriptyline 25 mg tablet 25 mg PO QHS Mood 08/16/20 10/03/23 History azelastine 137 mcg (0.1 %) nasal 1 spray NASAL BID SINUS 08/16/20 10/04/23 History spray fluticasone propionate 50 1 spray NASAL BID allergies 08/16/20 10/04/23 History mcg/actuation nasal spray,suspension tramadol 50 mg tablet 50 mg PO Q8H Pain 11/09/20 10/04/23 History acetaminophen 500 mg tablet 500 mg PO Q6H PRN PRN Pain 1-10 Or 11/22/20 10/04/23 History Fever pantoprazole 40 mg tablet,delayed 40 mg PO BID GERD 11/22/20 10/04/23 History release levothyroxine 75 mcg tablet 75 mcg PO DAILY@0600 Thyroid #30 11/25/20 10/04/23 Rx tabs lisinopril 20 mg tablet 20 mg PO DAILY BP 01/30/21 10/04/23 History amlodipine 5 mg tablet 5 mg PO DAILY 07/04/24 Unknown History gabapentin 300 mg capsule 300 mg PO TID 07/04/24 Unknown History oxycodone 5 mg tablet 5 mg PO Q6H PRN pain 5 days #20 07/04/24 Unknown Rx tabs trazodone 50 mg tablet 50 mg PO QHS 07/04/24 Unknown History Allergy/AdvReac Type Severity Reaction Status Date / Time gluten Allergy Food Verified 07/04/24 16:02 Allergy grass pollen-perennial rye, Allergy sinus Verified 07/04/24 16:02 standar (grass pressure poll-perennial rye,std) house dust AdvReac Other Verified 07/04/24 16:02 lactose AdvReac Food Verified 07/04/24 16:02 Allergy mold AdvReac Other Verified 07/04/24 16:02 Surgical History History of biopsy of bladder History of bilateral salpingo-oophorectom y (BSO) History of cystostomy History of shoulder surgery History of right knee surgery History of back surgery History of hysterectomy History of cholecystectomy Social History (more content not included)... Normal [facility] Pelvis without IV Contraston 07-04-2024 Pelvis without IV Contrast [facility] Imaging Services [address] [address] Pelvis without IV Contrast MR#: [id number] Acct: [id number] Name: MARLI ROSALES Rep #: [id number] : 1935 F 88 From: Himanshu Gibbs MD PCP: Dr. Roma Grajeda DO Status: REG ER Study: Pelvis without IV Contrast Date of Exam: 07/04 Exam# [id number] Ordering Dr: Roscoe Ma DO [id number] STUDY: CT PELVIS WITHOUT CONTRAST REASON FOR EXAM: Female, 88 years old. right hip/pelvic pain r/o fx or dislocation RADIATION DOSAGE (If Supplied By Facility): CTDIvol = ( 20.95 ) mGy, DLP = ( 706.11 ) mGycm TECHNIQUE: Transaxial imaging of the pelvis was performed with oral contrast, and without intravenous administration of contrast material. Individualized dose optimization techniques were used for this CT. COMPARISON: None. FINDINGS: Nonspecific diffuse bladder distention. Uterus not visualized status post hysterectomy Normal visualized small intestine. Diverticular changes of the colon without evidence for acute diverticulitis There is no pelvic fluid. There is no pelvic mass lesion or lymphadenopathy. Postop change status post bilateral laminectomy and posterior fusion at L3-4 L4-5 and L5-S1 Normal visualized pelvic arteries. Normal abdominal wall. Right hip prosthesis is noted in anatomic alignment and position. There is a hairline fracture of the posterior column of the right acetabulum extending into the ilium CT/Pelvis without IV Contrast IMPRESSION: Acute hairline fracture of the posterior column of the right acetabulum extending into the ilium Electronically Signed: Himanshu Gibbs MD at 19:28 EDT Reading Location ID and State: [facility] / [place] Tel , Service support , CC: Dr. Roma Grajeda DO; Dr. Roscoe Ma DO Draw String Knotter: Signed Normal [facility] Emergency Department Summary on 07-01-2024 Emergency Department Summary [facility] Medical Records Department [address] [place] [address] Emergency Department Summary 07/01/24 MR#: [id number] Acct: [id number] Name: MARLI ROSALES Rep #: [id number] : 1935 88 From: Tucker Nguyen MD PCP: Dr. Roma Grajeda DO Status:REG ER Location: ED HPI HPI - Fall History of Present Illness Chief Complaint: Fall Informant: patient Occured/Mechanism Occurred: Today Mechanism/Context: Yes same level fall Pain/Injury Pain Location: head and lower extremity Quality of Pain: Sharp Current Severity: Moderate Maximum Severity: Moderate Associated Symptoms Associated Symptoms: Positive for Inability to ambulate; Negative for Parasthesias, Weakness, Loss of function, Loss of consciousness or Amnesia Narrative Narrative: 88-year-old female is a resident at a local nursing facility. Today she wanted to get out of a chair that swivel she fell landing on her knees and is complaining of pain in her right hip. She has had a prior right hip prosthesis that she thinks was done several years ago. She also hit her head but denies any LOC. No headache. She is on no blood thinners. Denies any neck pain. Denies any recent illness. She denies any nausea, vomiting or diarrhea. No dysuria or fever. Prior similar symptoms: No Recent Illness/Hospitalizat ion: Yes PFSH [facility] Medical History History of recent fall Wears hearing aid in both ears Hearing loss, left Hearing loss, right Anemia Anxiety Depression Hypothyroidism Chronic pain Osteoporosis GI bleed GERD (gastroesophageal reflux disease) Wears hearing aid History of depression Alcohol use Walker as ambulation aid Dietary restriction History of hiatal hernia History of GI bleed Celiac disease Gastric reflux Non-smoker Hoarseness History of stress test History of rheumatic fever Thyroid disease Osteoporosis Hypertension Home Medications ???Medication ???Instructions ???Recorded ???Last Taken ???Type amitriptyline 25 mg tablet 25 mg PO QHS Mood 08/16/20 10/03/23 History azelastine 137 mcg (0.1 %) nasal 1 spray NASAL BID SINUS 08/16/20 10/04/23 History spray fluticasone propionate 50 1 spray NASAL BID allergies 08/16/20 10/04/23 History mcg/actuation nasal spray,suspension tramadol 50 mg tablet 50 mg PO Q8H Pain 11/09/20 10/04/23 History acetaminophen 500 mg tablet 500 mg PO Q6H PRN PRN Pain 1-10 Or 11/22/20 10/04/23 History Fever pantoprazole 40 mg tablet,delayed 40 mg PO BID GERD 11/22/20 10/04/23 History release levothyroxine 75 mcg tablet 75 mcg PO DAILY@0600 Thyroid #30 11/25/20 10/04/23 Rx tabs lisinopril 20 mg tablet 20 mg PO DAILY BP 01/30/21 10/04/23 History amlodipine 10 mg tablet 10 mg PO DAILY 30 days #30 tabs 10/10/23 Unknown Rx gabapentin 100 mg capsule 200 mg (2 x 100 mg) PO TID 30 days 10/10/23 Unknown Rx #180 caps nitrofurantoin 100 mg PO Q12 #10 CAPSULES 05/28/24 Unknown Rx monohydrate/macrocry stals 100 mg capsule Allergy/AdvReac Type Severity Reaction Status Date / Time gluten Allergy Food Verified 07/01/24 12:50 Allergy grass pollen-perennial rye, Allergy sinus Verified 07/01/24 12:50 standar (grass pressure poll-perennial rye,std) house dust AdvReac Other Verified 07/01/24 12:50 lactose AdvReac Food Verified 07/01/24 12:50 Allergy mold AdvReac Other Verified 07/01/24 12:50 Surgical History History of biopsy of bladder History of bilateral salpingo-oophorectom y (BSO) History of cystostomy History of shoulder surgery History of right knee surgery History of back surgery History of hysterectomy History of cholecystectomy Social History household members: spouse housing: assisted living facility current occupational status: retired Smoking Status: Never smoker alcohol intake: never ROS ROS ED ROS Narrative Denies recent illness. Review of Systems ROS Unobtainable: Denies due to encephalopathy Constitutional Constitutional ED: Denies chills or fever(s) Eyes Eyes: Denies blurry vision ENT ENT ED: Denies ear pain Cardiovascular Cardiovascular: Denies chest pain Respiratory/Chest Respiratory/Chest: Denies cough or dyspnea Gastrointestinal Gastrointestinal: Denies abdominal pain Genitourinary Genitourinary ED: Denies dysuria or hematuria Musculoskeletal Musculoskeletal: Denies arthralgias Integumentary Denies abscess Neurologic Neurologic: Denies headache(s) Psychiatric Psychiatric: Denies anxiety or depression Endocrine Endocrinology: Denies polydipsia Hematologic/Lymphati c Hematologic/Lymphati c: Denies easy bleeding Allergic/Immunologic Allergic/Immunologic ED: Denies (more content not included)... [facility] Femur Min 2 Viewson 07-01-20 Femur Min 2 Views [facility] Services [address] [place], [place] [address] Femur Min 2 Views MR#: [id number] Acct: [id number] Name: MARLI ROSALES Rep #: [id number] : 1935 F 88 From: Richard Clark MD PCP: Dr. Roma Grajeda DO Status: REG ER Study: Femur Min 2 Views Date of Exam: 07/01/24 Exam# [id number] Ordering Dr: Tucker Nguyen MD [id number] STUDY: X-RAY - RIGHT FEMUR REASON FOR STUDY: Female, 88 years old. fall and pain TECHNIQUE: 2 view(s) of the femur. COMPARISON: None. FINDINGS: Normal visualized femur. Normal visualized soft tissue structure. Status post right hip arthroplasty. The prosthesis appears located. No ostial lysis to suggest loosening. Status post total knee arthroplasty. The prosthesis appears located. No ostial lysis to suggest loosening. RAD/Femur Min 2 Views IMPRESSION: No acute fracture or dislocation. Electronically Signed: Richard Clark MD at 13:46 EDT , CC: Dr. Tucker Nguyen MD; Dr. Roma Grajeda DO Draw String Knotter: Signed [facility] Pelvis 1 or 2 Viewson 2023 Pelvis 1 or 2 Views [facility] [address] [place], [place] [address] Pelvis 1 or 2 Views MR#: [id number] Acct: [id number] Name: MARLI ROSALES Rep #: [id number] : 1935 F 88 From: Richard Clark MD PCP: Dr. Roma Grajeda DO Status: REG ER Study: Pelvis 1 or 2 Views Date of Exam: 07/01/24 Exam# [id number] Ordering Dr: Tucker Nguyen MD [id number] STUDY: X-RAY - PELVIS REASON FOR EXAM: Female, 88 years old. fall and right hip pain TECHNIQUE: One view of the pelvis was obtained. COMPARISON: 11/09/2017 FINDINGS: There is a non-specific bowel gas pattern. Normal visualized soft tissue structures. Status post transpedicular fixation in the lower lumbar spine. Normal bilateral iliac wings, sacroiliac joints and visualized sacrum. Normal visualized bilateral superior and inferior pubic rami. Normal pubic symphysis. Normal ischial tuberosities. Status post right hip arthroplasty. The prosthesis appears located. No ostial lysis to suggest loosening. . Normal visualized left femoral head. Normal left acetabulum. Normal left hip joint. RAD/Pelvis 1 or 2 Views IMPRESSION: No acute fracture or dislocation. Electronically Signed: Richard Clark MD at 13:44 EDT , CC: Dr. Tucker Nguyen MD; Dr. Roma Grajeda DO Draw String Knotter: Signed [facility] Absolute lymphocyte countOrd ered By: Roma Grajeda on 01-31-2024 Lymphocytes Auto (Unsp spec) [#/Vol] 1.10 10*3/uL 0.83-4.51 [facility] Automated lymphocyte count a s percentage of total leukocytesOrdered By: Roma Grajeda on 01-31-2024 Lymphocytes/100 WBC Auto (Unsp spec) 16.1 % 19-41 [facility] Basophil percentageOrdered B y: Roma Grajeda on 01-31-2024 Basophils/100 WBC (Bld) 0.7 % 0-1 [facility] Bilirubin [Mass/Vol] 0.40 mg/dL 0.20-1.00 [facility] Comment on above: For patients on eltr ombopag therapy, use of Dimension [place] TBIL is not recommended. Chloride [Moles/Vol] 102 mmol/L 98-107 [facility] Eosinophils/100 WBC (Bld) 2.3 % 0-5 [facility] Glucose [Mass/Vol] 82 mg/dL 74-106 [facility] Hemoglobin (Bld) [Mass/Vol] 11.1 g/dL 12.0-15.0 [facility] Monocytes/100 WBC (Bld) 7.9 % 0-10 [facility] Neutrophils (Bld) [#/Vol] 5.0 10*3/uL 2.0-7.7 [facility] Neutrophils/100 WBC (Bld) 72.9 % 47-70 [facility] Potassium [Moles/Vol] 4.7 mmol/L 3.5-5.1 [facility] Protein [Mass/Vol] 7.3 g/dL 6.4-8.2 [facility] Sodium [Moles/Vol] 134 mmol/L 136-145 [facility] WBC (Bld) [#/Vol] 6.9 10*3/uL 4.4-11.0 [facility] Culture, urineOrdered By: Ursula Grajeda on 01-31-2024 Bacteria identified Cx Nom (U) Presumptive E. coli [facility] Determination of erythrocyte mean corpuscular volume (MCV)Ordered By: Roma Grajeda on 01-31-2024 MCV (RBC) [Entitic vol] 96.2 fL 81-99 [facility] Erythrocyte distribution wid th ratioOrdered By: Roma Grajeda on 01-31-2024 Erythrocyte distribution width (RBC) [Ratio] 12.7 % 11.6-14.6 [facility] Erythrocyte distribution wid th standard deviationOrdered By: Roma Grajeda on 01-31-2024 Erythrocyte distribution width (RBC) [Entitic vol] 45.2 fL 35.1-43.9 [facility] Hematocrit Auto (Bld) [Volum e fraction]Ordered By: Roma Grajeda on 01-31-2024 Hematocrit (Bld) [Volume fraction] 35.9 % 37-47 [facility] Immature granulocytes/100 WB C Auto (Bld)Ordered By: Roma Grajeda on 01-31-2024 Immature granulocytes/100 WBC (Bld) 0.100 % 0.0-0.9 [facility] Comment on above: IG% - Immature Granu locytes (promyelocytes, myelocytes and metamyelocytes) > 1% indicates that a LEFT SHIFT is Present. Laboratory - Chemistry and C hemistry - challengeOrdered By: Roma Grajeda on 01-31-2024 Albumin/Globulin [Mass ratio] 1.0 {ratio} 0.9-2.4 [facility] ALP [Catalytic activity/Vol] 81 U/L 45-117 [facility] ALT [Catalytic activity/Vol] 21 U/L 13-56 [facility] CO2 [Moles/Vol] 24.0 mmol/L 21.0-32.0 [facility] Globulin (S) [Mass/Vol] 3.7 g/dL 2.2-4.2 [facility] Urea nitrogen/Creatinine [Mass ratio] 18.6 mg/mg 10-20 [facility] - Hematology and Cell countsOrdered By: Roma Grajeda on 01-31-2024 MCH (RBC) [Entitic mass] 29.8 pg 27.0-32.0 [facility] MCHC (RBC) [Mass/Vol] 30.9 g/dL 32-36 [facility] Nucleated RBC/100 WBC (Bld) [Ratio] 0 % 0-5 [facility] Platelet mean volume (Bld) [Entitic vol] 9.6 fL 6.2-12.0 [facility] Platelets (Bld) [#/Vol] 314 10*3/uL 150-450 [facility] No Panel InformationOrdered By: Roma Grajeda on 01-31-2024 Estimated GFR (MDRD) Amer 66 mL/min >60 [facility] Comment on above: GFR Calc Estimated GFR (MDRD) Non-Af Amer 55 mL/min >60 [facility] Comment on above: Non- GFR Calc Free Triiodothyronine (T3) pg/dL 2.8 pg/mL 2.18-3.98 [facility] RBC Auto (Bld) [#/Vol]Ordere d By: Roma Grajeda on 01-31-2024 RBC (Bld) [#/Vol] 3.73 10*6/uL 4.2-5.4 [facility] Serum or plasma calcium rosa isela urement (mass/volume)Ordered By: Roma Grajeda on 01-31-2024 Calcium [Mass/Vol] 9.5 mg/dL 8.5-10.1 [facility] Serum or plasma creatinine m easurement (mass/volume)Ordered By: Roma Grajeda on 01-31-2024 Creatinine [Mass/Vol] 1.02 mg/dL 0.55-1.02 [facility] Comment on above: The validity of the calculated GFR & GFRAA in patients over 70 years has not been determined. Clinical correlation is essential. Serum or plasma thyroid stim ulating hormone (TSH) measurement (units/volume)Ordered By: Roma Grajeda on 01-31-2024 TSH Qn 0.82 uIU/mL 0.358-3.74 [facility] Serum or plasma urea nitroge n measurement (mass/volume)Ordered By: Roma Grajeda on 01-31-2024 Urea nitrogen [Mass/Vol] 19 mg/dL 7-18 [facility] Thin prep Papanicolaou smear with manual screeningOrdered By: Roma Grajeda on 01-31-2024 Thin prep Papanicolaou smear with manual screening 3.6 g/dL 3.2-5.0 [facility] Thin prep Papanicolaou smear with manual screening 20 U/L 15-37 [facility] Thin prep Papanicolaou smear with manual screening 8 5-15 [facility] Thin prep Papanicolaou smear with manual screening 1.29 ng/dL 0.76-1.46 [facility] Absolute lymphocyte countOrd ered By: Whitney Gusman on 10-12-2023 Lymphocytes Auto (Unsp spec) [#/Vol] 0.98 10*3/uL 0.83-4.51 [facility] Basophil percentageOrdered B y: Whitney Gusman on 10-12-2023 Basophils/100 WBC (Bld) 0.9 % 0-1 [facility] Bilirubin [Mass/Vol] 0.50 mg/dL 0.20-1.00 [facility] Comment on above: For patients on eltr ombopag therapy, use of Dimension [place] TBIL is not recommended. Chloride [Moles/Vol] 109 mmol/L 98-107 [facility] Eosinophils/100 WBC (Bld) 3.3 % 0-5 [facility] Glucose [Mass/Vol] 95 mg/dL 74-106 [facility] Neutrophils (Bld) [#/Vol] 2.8 10*3/uL 2.0-7.7 [facility] Neutrophils/100 WBC (Bld) 60.3 % 47-70 [facility] Potassium [Moles/Vol] 4.1 mmol/L 3.5-5.1 [facility] Protein [Mass/Vol] 6.8 g/dL 6.4-8.2 [facility] Sodium [Moles/Vol] 139 mmol/L 136-145 [facility] WBC (Bld) [#/Vol] 4.6 10*3/uL 4.4-11.0 [facility] Blood erythrocytes count (nu mber/volume)Ordered By: Whitney Gusman on 10-12-2023 RBC (Bld) [#/Vol] 3.70 10*6/uL 4.2-5.4 [facility] Blood hemoglobin measurement (mass/volume)Ordered By: Whitney Gusman on 10-12-2023 Hemoglobin (Bld) [Mass/Vol] 11.3 g/dL 12.0-15.0 [facility] Blood lymphocytes/100 leukoc ytesOrdered By: Whitney Gusman on 10-12-2023 Lymphocytes/100 WBC (Bld) 21.5 % 19-41 [facility] Blood monocytes/100 leukocyt esOrdered By: Whitney Gusman on 10-12-2023 Monocytes/100 WBC (Bld) 13.6 % 0-10 [facility] Blood platelet mean volumeOr dered By: Whitney Gusman on 10-12-2023 Platelet mean volume (Bld) [Entitic vol] 9.3 fL 6.2-12.0 [facility] COVID-19 virus antigen assay Ordered By: Kiel Son on 10-12-2023 SARS-CoV-2 (COVID-19) Ag IA.rapid Ql (Resp) [facility] SARS-CoV-2 (COVID-19) Ag IA.rapid Ql (Resp) [facility] Determination of erythrocyte mean corpuscular volume (MCV)Ordered By: Whitney Gusman on 10-12-2023 MCV (RBC) [Entitic vol] 98.9 fL 81-99 [facility] Hematocrit Auto (Bld) [Volum e fraction]Ordered By: Whitney Gusman on 10-12-2023 Hematocrit (Bld) [Volume fraction] 36.6 % 37-47 [facility] Laboratory - Chemistry and C hemistry - challengeOrdered By: Whitney Gusman on 10-12-2023 ALP [Catalytic activity/Vol] 74 U/L 45-117 [facility] ALT [Catalytic activity/Vol] 14 U/L 13-56 [facility] CO2 [Moles/Vol] 24.0 mmol/L 21.0-32.0 [facility] Globulin (S) [Mass/Vol] 3.5 g/dL 2.2-4.2 [facility] Urea nitrogen/Creatinine [Mass ratio] 26.4 mg/mg 10-20 [facility] Laboratory - Hematology and Cell countsOrdered By: Whitney Gusman on 10-12-2023 Erythrocyte distribution width (RBC) [Entitic vol] 45.4 fL 35.1-43.9 [facility] Erythrocyte distribution width (RBC) [Ratio] 12.6 % 11.6-14.6 [facility] Immature granulocytes/100 WBC (Bld) 0.400 % 0.0-0.9 [facility] Comment on above: IG% - Immature Granu locytes (promyelocytes, myelocytes and metamyelocytes) > 1% indicates that a LEFT SHIFT is Present. MCH (RBC) [Entitic mass] 30.5 pg 27.0-32.0 [facility] Nucleated RBC/100 WBC (Bld) [Ratio] 0 % 0-5 [facility] MCHC Auto (RBC) [Mass/Vol]Or dered By: Whitney Gusman on 10-12-2023 MCHC (RBC) [Mass/Vol] 30.9 g/dL 32-36 [facility] No Panel InformationOrdered By: Whitney Gusman on 10-12-2023 Estimated Creatinine Clearance Calc 47.90 ml/min [facility] Estimated GFR (MDRD) Amer 79 mL/min >60 [facility] Comment on above: GFR Calc Estimated GFR (MDRD) Non-Af Amer 65 mL/min >60 [facility] Comment on above: Non- GFR Calc Platelets bldOrdered By: Shannan Gusman on 10-12-2023 Platelets (Bld) [#/Vol] 271 10*3/uL 150-450 [facility] Serum or plasma albumin rosa isela urement (mass/volume)Ordered By: Whitney Gusman on 10-12-2023 Albumin [Mass/Vol] 3.3 g/dL 3.2-5.0 [facility] Serum or plasma albumin/glob ulin mass ratioOrdered By: Whitney Gusman on 10-12-2023 Albumin/Globulin [Mass ratio] 0.9 {ratio} 0.9-2.4 [facility] Serum or plasma calcium rosa iesla urement (mass/volume)Ordered By: Whitney Gusman on 10-12-2023 Calcium [Mass/Vol] 9.0 mg/dL 8.5-10.1 [facility] Serum or plasma creatinine m easurement (mass/volume)Ordered By: Whitney Gusman on 10-12-2023 Creatinine [Mass/Vol] 0.87 mg/dL 0.55-1.02 [facility] Comment on above: The validity of the calculated GFR & GFRAA in patients over 70 years has not been determined. Clinical correlation is essential. Serum or plasma urea nitroge n measurement (mass/volume)Ordered By: Whitney Gusman on 10-12-2023 Urea nitrogen [Mass/Vol] 23 mg/dL 7-18 [facility] Thin prep Papanicolaou smear with manual screeningOrdered By: Whitney Gusman on 10-12-2023 Thin prep Papanicolaou smear with manual screening 17 U/L 15-37 [facility] Thin prep Papanicolaou smear with manual screening 6 5-15 [facility] Basophil percentageOrdered B y: Whitney Gusman on 10-05-2023 Basophil percentage 4.2 mg/dL 2.5-4.9 [facility] Laboratory - Chemistry and C hemistry - challengeOrdered By: Whitney Gusman on 10-05-2023 Magnesium [Mass/Vol] 2.2 mg/dL 1.6-2.6 [facility] Absolute lymphocyte countOrd ered By: Patricio Franz on 10-04-2023 Lymphocytes Auto (Unsp spec) [#/Vol] 1.31 10*3/uL 0.83-4.51 [facility] Basophil percentageOrdered B y: Patricio Franz on 10-04-2023 Basophils/100 WBC (Bld) 1.0 % 0-1 [facility] Chloride [Moles/Vol] 107 mmol/L 98-107 [facility] Eosinophils/100 WBC (Bld) 4.1 % 0-5 [facility] Glucose [Mass/Vol] 82 mg/dL 74-106 [facility] Neutrophils (Bld) [#/Vol] 2.9 10*3/uL 2.0-7.7 [facility] Neutrophils/100 WBC (Bld) 59.5 % 47-70 [facility] Potassium [Moles/Vol] 3.8 mmol/L 3.5-5.1 [facility] Sodium [Moles/Vol] 138 mmol/L 136-145 [facility] WBC (Bld) [#/Vol] 4.9 10*3/uL 4.4-11.0 [facility] Blood erythrocytes count (nu mber/volume)Ordered By: Patricio Franz on 10-04-2023 RBC (Bld) [#/Vol] 3.93 10*6/uL 4.2-5.4 [facility] Blood hemoglobin measurement (mass/volume)Ordered By: Patricio Franz on 10-04-2023 Hemoglobin (Bld) [Mass/Vol] 12.2 g/dL 12.0-15.0 [facility] Blood lymphocytes/100 leukoc ytesOrdered By: Patricio Franz on 10-04-2023 Lymphocytes/100 WBC (Bld) 26.8 % 19-41 [facility] Blood monocytes/100 leukocyt esOrdered By: Patricio Franz on 10-04-2023 Monocytes/100 WBC (Bld) 8.2 % 0-10 [facility] Blood platelet mean volumeOr dered By: Patricio Franz on 10-04-2023 Platelet mean volume (Bld) [Entitic vol] 8.9 fL 6.2-12.0 [facility] Determination of erythrocyte mean corpuscular volume (MCV)Ordered By: Patricio Franz on 10-04-2023 MCV (RBC) [Entitic vol] 101.8 fL 81-99 [facility] Hematocrit Auto (Bld) [Volum e fraction]Ordered By: Patricio Franz on 10-04-2023 Hematocrit (Bld) [Volume fraction] 40.0 % 37-47 [facility] Laboratory - Chemistry and C hemistry - challengeOrdered By: Patricio Franz on 10-04-2023 CO2 [Moles/Vol] 29.0 mmol/L 21.0-32.0 [facility] Urea nitrogen/Creatinine [Mass ratio] 23.3 mg/mg 10-20 [facility] - Hematology and Cell countsOrdered By: Patricio Franz on 10-04-2023 Erythrocyte distribution width (RBC) [Entitic vol] 48.3 fL 35.1-43.9 [facility] Erythrocyte distribution width (RBC) [Ratio] 12.9 % 11.6-14.6 [facility] Immature granulocytes/100 WBC (Bld) 0.400 % 0.0-0.9 [facility] Comment on above: IG% - Immature Granu locytes (promyelocytes, myelocytes and metamyelocytes) > 1% indicates that a LEFT SHIFT is Present. MCH (RBC) [Entitic mass] 31.0 pg 27.0-32.0 [facility] Nucleated RBC/100 WBC (Bld) [Ratio] 0 % 0-5 [facility] MCHC Auto (RBC) [Mass/Vol]Or dered By: Patricio Franz on 10-04-2023 MCHC (RBC) [Mass/Vol] 30.5 g/dL 32-36 [facility] No Panel InformationOrdered By: Patricio Franz on 10-04-2023 Estimated Creatinine Clearance Calc 42.78 ml/min [facility] Estimated GFR (MDRD) Amer 97 mL/min >60 [facility] Comment on above: GFR Calc Estimated GFR (MDRD) Non-Af Amer 80 mL/min >60 [facility] Comment on above: Non- GFR Calc Platelets bldOrdered By: Kermit Franz on 10-04-2023 Platelets (Bld) [#/Vol] 287 10*3/uL 150-450 [facility] Serum or plasma calcium rosa isela urement (mass/volume)Ordered By: Patricio Franz on 10-04-2023 Calcium [Mass/Vol] 9.4 mg/dL 8.5-10.1 [facility] Serum or plasma creatinine m easurement (mass/volume)Ordered By: Patricio Franz on 10-04-2023 Creatinine [Mass/Vol] 0.73 mg/dL 0.55-1.02 [facility] Comment on above: The validity of the calculated GFR & GFRAA in patients over 70 years has not been determined. Clinical correlation is essential. Serum or plasma urea nitroge n measurement (mass/volume)Ordered By: Patricio Franz on 10-04-2023 Urea nitrogen [Mass/Vol] 17 mg/dL 7-18 [facility] Thin prep Papanicolaou smear with manual screeningOrdered By: Patricio Franz on 10-04-2023 Thin prep Papanicolaou smear with manual screening 2 5-15 [facility] Basophil percentageOrdered B y: Joni An on 09-29-2023 Basophil percentage 2.9 mg/dL 2.5-4.9 [facility] Bilirubin [Mass/Vol] 0.50 mg/dL 0.20-1.00 [facility] Comment on above: For patients on eltr ombopag therapy, use of Dimension [place] TBIL is not recommended. Protein [Mass/Vol] 6.5 g/dL 6.4-8.2 [facility] Laboratory - Chemistry and C hemistry - challengeOrdered By: Joni An on 09-29-2023 ALP [Catalytic activity/Vol] 77 U/L 45-117 [facility] ALT [Catalytic activity/Vol] 14 U/L 13-56 [facility] Globulin (S) [Mass/Vol] 3.5 g/dL 2.2-4.2 [facility] Magnesium [Mass/Vol] 2.2 mg/dL 1.6-2.6 [facility] No Panel InformationOrdered By: Joni An on 09-29-2023 Thyroid Stimulating Hormone (TSH) 3.10 uIU/mL 0.358-3.74 [facility] Serum or plasma albumin rosa isela urement (mass/volume)Ordered By: Joni An on 09-29-2023 Albumin [Mass/Vol] 3.0 g/dL 3.2-5.0 [facility] Serum or plasma albumin/glob ulin mass ratioOrdered By: Joni An on 09-29-2023 Albumin/Globulin [Mass ratio] 0.9 {ratio} 0.9-2.4 [facility] Thin prep Papanicolaou smear with manual screeningOrdered By: Joni An on 09-29-2023 Thin prep Papanicolaou smear with manual screening 15 U/L 15-37 [facility] Basophil percentageOrdered B y: Nelson Holman on 09-28-2023 Basophil percentage 0-5 SEEN /hpf 0-5 [facility] Bilirubin Test strip Ql (U)O rdered By: Nelson Holman on 09-28-2023 Bilirubin Ql (U) Negative Negative [facility] Ketones Test strip Ql (U)Ord ered By: Nelson Holman on 09-28-2023 Ketones Ql (U) Negative Negative [facility] Mucus LM Ql (Urine sed)Order ed By: Nelson Holman on 09-28-2023 Mucus Ql (Urine sed) 0 SEEN /hpf [facility] Nitrite Test strip Ql (U)Ord ered By: Nelson Holman on 09-28-2023 Nitrite Ql (U) Negative Negative [facility] No Panel InformationOrdered By: Nelson Holman on 09-28-2023 Troponin I High Sensitivity 10 pg/mL 3.0-54.0 [facility] Comment on above: Please Note: New Latha t Units and Gender Specific Reference Ranges. For more information see Policy Stat Procedure [place] High Sensitivity Troponin (TNIH) and attachments. Protein Test strip Ql (U)Ord ered By: Nelson Holman on 09-28-2023 Protein Ql (U) Negative Negative [facility] Squamous epithelial cells de tection in urine sediment by light microscopyOrdered By: Nelson Holman on 09-28-2023 Epithelial cells.squamous LM Ql (Urine sed) 0 SEEN /hpf 5-10 [facility] Urine blood detectionOrdered By: Nelson Holman on 09-28-2023 RBC Ql (U) 10 /ul Negative [facility] RBC Ql (U) 0 SEEN /hpf 0-5 [facility] Urine clarityOrdered By: Timbo Holman on 09-28-2023 Clarity (U) Clear Clear [facility] Urine color determinationOrd ered By: Nelson Holman on 09-28-2023 Color (U) Yellow Yellow [facility] Urine glucose detectionOrder ed By: Nelson Holman on 09-28-2023 Glucose Ql (U) Normal mg/dl Normal [facility] Urine leukocyte esterase det ection by dipstickOrdered By: Nelson Holman on 09-28-2023 Leukocyte esterase Test strip Ql (U) 100 /ul Negative [facility] Urine pHOrdered By: Nelson ponce on 09-28-2023 pH (U) 8.0 [pH] 5.0 - 8.0 [facility] Urine sediment bacteria coun t by microscopy (number/high power field)Ordered By: Nelson Holman on 09-28-2023 Bacteria LM.HPF (Urine sed) [#/Area] 2 /[HPF] None Seen [facility] Urine specific gravity measu rementOrdered By: Nelson Holman on 09-28-2023 Specific gravity (U) [Rel density] 1.010 1.002-1.030 [facility] Urobilinogen Auto test strip Ql (U)Ordered By: Nelson Holman on 09-28-2023 Urobilinogen Ql (U) Normal mg/dl Normal [facility] Culture, urineOrdered By: Ursula Grajeda on 09-24-2023 Bacteria identified Cx Nom (U) Presumptive E. coli [facility] Culture, urineOrdered By: Chun Sanchez on 07-14-2023 Bacteria identified Cx Nom (U) Escherichia coli [facility] Culture, urineOrdered By: Chun Sanchez on 07-13-2023 Bacteria identified Cx Nom (U) Escherichia coli [facility] Culture, urineOrdered By: Ursula Grajeda on 05-28-2023 Bacteria identified Cx Nom (U) Presumptive E. coli [facility] Culture, urineOrdered By: Dr Taylor Grajeda on 02-07-2023 Bacteria identified Cx Nom (U) Presumptive E. coli [facility] Culture, urineOrdered By: Ursula Grajeda on 02-05-2023 Bacteria identified Cx Nom (U) Presumptive E. coli [facility] Basophil percentageOrdered B y: Dr. Sanchez on 12-14-2022 Chloride [Moles/Vol] 105 mmol/L 98-107 [facility] Glucose [Mass/Vol] 116 mg/dL 74-106 [facility] Comment on above: Fasting Glucose resu lt from 100 to 125 mg/dL suggests IMPAIRED HOMEOSTASIS per A.D.A. criteria. Potassium [Moles/Vol] 4.0 mmol/L 3.5-5.1 [facility] Sodium [Moles/Vol] 139 mmol/L 136-145 [facility] Laboratory - Chemistry and C hemistry - challengeOrdered By: Dr. Sanchez on 12-14-2022 CO2 [Moles/Vol] 23.0 mmol/L 21.0-32.0 [facility] Urea nitrogen/Creatinine [Mass ratio] 18.6 mg/mg 10-20 [facility] No Panel InformationOrdered By: Dr. Sanchez on 12-14-2022 Estimated GFR (MDRD) Amer 56 mL/min >60 [facility] Comment on above: GFR Calc Estimated GFR (MDRD) Non-Af Amer 46 mL/min >60 [facility] Comment on above: Non- GFR Calc Serum or plasma calcium rosa isela urement (mass/volume)Ordered By: Dr. Sanchez on 12-14-2022 Calcium [Mass/Vol] 9.6 mg/dL 8.5-10.1 [facility] Serum or plasma creatinine m easurement (mass/volume)Ordered By: Dr. Sanchez on 12-14-2022 Creatinine [Mass/Vol] 1.18 mg/dL 0.55-1.02 [facility] Comment on above: The validity of the calculated GFR & GFRAA in patients over 70 years has not been determined. Clinical correlation is essential. Serum or plasma urea nitroge n measurement (mass/volume)Ordered By: Dr. Sanchez on 12-14-2022 Urea nitrogen [Mass/Vol] 22 mg/dL 7-18 [facility] Thin prep Papanicolaou smear with manual screeningOrdered By: Dr. Sanchez on 12-14-2022 Thin prep Papanicolaou smear with manual screening 11 5-15 [facility] Culture, urineOrdered By: Li Melvin on 12-11-2022 Bacteria identified Cx Nom (U) Presumptive E. coli [facility] Bacteria identified Cx Nom (U) Enterococcus faecalis [facility] Absolute lymphocyte countOrd ered By: Dr. Khan on 12-10-2022 Lymphocytes Auto (Unsp spec) [#/Vol] 0.44 10*3/uL 0.83-4.51 [facility] Basophil percentageOrdered B y: Dr. Khan on 12-10-2022 Basophils/100 WBC (Bld) 0.5 % 0-1 [facility] Chloride [Moles/Vol] 107 mmol/L 98-107 [facility] Eosinophils/100 WBC (Bld) 7.7 % 0-5 [facility] Glucose [Mass/Vol] 93 mg/dL 74-106 [facility] Neutrophils (Bld) [#/Vol] 3.2 10*3/uL 2.0-7.7 [facility] Neutrophils/100 WBC (Bld) 73.1 % 47-70 [facility] Potassium [Moles/Vol] 3.1 mmol/L 3.5-5.1 [facility] Sodium [Moles/Vol] 137 mmol/L 136-145 [facility] WBC (Bld) [#/Vol] 4.4 10*3/uL 4.4-11.0 [facility] Blood erythrocytes count (nu mber/volume)Ordered By: Dr. Khan on 12-10-2022 RBC (Bld) [#/Vol] 3.38 10*6/uL 4.2-5.4 [facility] Blood hemoglobin measurement (mass/volume)Ordered By: Dr. Khan on 12-10-2022 Hemoglobin (Bld) [Mass/Vol] 10.2 g/dL 12.0-15.0 [facility] Blood lymphocytes/100 leukoc ytesOrdered By: Dr. Khan on 12-10-2022 Lymphocytes/100 WBC (Bld) 9.9 % 19-41 [facility] Blood manual differential co mment interpretation (narrative result)Ordered By: Dr. Khan on 12-10-2022 Manual differential comment Mode (Bld) [Interp] SCANNED [facility] Blood monocytes/100 leukocyt esOrdered By: Dr. Khan on 12-10-2022 Monocytes/100 WBC (Bld) 8.6 % 0-10 [facility] Blood platelet mean volumeOr dered By: Dr. Khan on 12-10-2022 Platelet mean volume (Bld) [Entitic vol] 9.4 fL 6.2-12.0 [facility] Determination of erythrocyte mean corpuscular volume (MCV)Ordered By: Dr. Khan on 12-10-2022 MCV (RBC) [Entitic vol] 93.8 fL 81-99 [facility] Hematocrit Auto (Bld) [Volum e fraction]Ordered By: Dr. Khan on 12-10-2022 Hematocrit (Bld) [Volume fraction] 31.7 % 37-47 [facility] Laboratory - Chemistry and C hemistry - challengeOrdered By: Dr. Khan on 12-10-2022 CO2 [Moles/Vol] 24.0 mmol/L 21.0-32.0 [facility] Urea nitrogen/Creatinine [Mass ratio] 13.1 mg/mg 10-20 [facility] Laboratory - Hematology and Cell countsOrdered By: Dr. Khan on 12-10-2022 Erythrocyte distribution width (RBC) [Entitic vol] 43.7 fL 35.1-43.9 [facility] Erythrocyte distribution width (RBC) [Ratio] 12.7 % 11.6-14.6 [facility] Immature granulocytes/100 WBC (Bld) 0.200 % 0.0-0.9 [facility] Comment on above: IG% - Immature Granu locytes (promyelocytes, myelocytes and metamyelocytes) > 1% indicates that a LEFT SHIFT is Present. MCH (RBC) [Entitic mass] 30.2 pg 27.0-32.0 [facility] Nucleated RBC/100 WBC (Bld) [Ratio] 0 % 0-5 [facility] MCHC Auto (RBC) [Mass/Vol]Or dered By: Dr. Khan on 12-10-2022 MCHC (RBC) [Mass/Vol] 32.2 g/dL 32-36 [facility] No Panel InformationOrdered By: Dr. Khan on 12-10-2022 Estimated Creatinine Clearance Calc 43.06 ml/min [facility] Estimated GFR (MDRD) Amer 105 mL/min >60 [facility] Comment on above: GFR Calc Estimated GFR (MDRD) Non-Af Amer 87 mL/min >60 [facility] Comment on above: Non- GFR Calc Platelets bldOrdered By: Dr. Khan on 12-10-2022 Platelets (Bld) [#/Vol] 228 10*3/uL 150-450 [facility] Serum or plasma calcium rosa isela urement (mass/volume)Ordered By: Dr. Khan on 12-10-2022 Calcium [Mass/Vol] 8.7 mg/dL 8.5-10.1 [facility] Serum or plasma creatinine m easurement (mass/volume)Ordered By: Dr. Khan on 12-10-2022 Creatinine [Mass/Vol] 0.68 mg/dL 0.55-1.02 [facility] Comment on above: The validity of the calculated GFR & GFRAA in patients over 70 years has not been determined. Clinical correlation is essential. Serum or plasma urea nitroge n measurement (mass/volume)Ordered By: Dr. Khan on 12-10-2022 Urea nitrogen [Mass/Vol] 9 mg/dL 7-18 [facility] Thin prep Papanicolaou smear with manual screeningOrdered By: Dr. Khan on 12-10-2022 Thin prep Papanicolaou smear with manual screening 6 5-15 [facility] Basophil percentageOrdered B y: Dr. Khan on 12-09-2022 Bilirubin [Mass/Vol] 0.70 mg/dL 0.20-1.00 [facility] Comment on above: For patients on eltr ombopag therapy, use of Dimension [place] TBIL is not recommended. Protein [Mass/Vol] 5.4 g/dL 6.4-8.2 [facility] Laboratory - Chemistry and C hemistry - challengeOrdered By: Dr. Khan on 12-09-2022 ALP [Catalytic activity/Vol] 59 U/L 45-117 [facility] ALT [Catalytic activity/Vol] 25 U/L 13-56 [facility] Globulin (S) [Mass/Vol] 2.9 g/dL 2.2-4.2 [facility] Magnesium [Mass/Vol] 1.9 mg/dL 1.6-2.6 [facility] No Panel InformationOrdered By: Dr. Khan on 12-09-2022 Thyroid Stimulating Hormone (TSH) 1.20 uIU/mL 0.358-3.74 [facility] Serum or plasma albumin rosa isela urement (mass/volume)Ordered By: Dr. Khan on 12-09-2022 Albumin [Mass/Vol] 2.5 g/dL 3.2-5.0 [facility] Serum or plasma albumin/glob ulin mass ratioOrdered By: Dr. Khan on 12-09-2022 Albumin/Globulin [Mass ratio] 0.9 {ratio} 0.9-2.4 [facility] Stool gastrointestinal hemog lobin detection by immunologic methodOrdered By: Dr. Khan on 12-09-2022 Lower GI hemoglobin IA Ql (Stl) [facility] Thin prep Papanicolaou smear with manual screeningOrdered By: Dr. Khan on 12-09-2022 Thin prep Papanicolaou smear with manual screening 33 U/L 15-37 [facility] Basophil percentageOrdered B y: Quentin Melvin on 12-08-2022 Basophil percentage 25-50 SEEN /hpf 0-5 [facility] Ammonia (P) [Moles/Vol] 11.0 umol/L 11-32 [facility] Bilirubin Test strip Ql (U)O rdered By: Quentin Melvin on 12-08-2022 Bilirubin Ql (U) Negative Negative [facility] Direct bilirubinOrdered By: Quentin Melvin on 12-08-2022 Bilirubin.direct [Mass/Vol] 0.35 mg/dL 0.00-0.30 [facility] HCO3 (BldA) [Moles/Vol]Order ed By: Quentin Melvin on 12-08-2022 HCO3 (Bld) [Moles/Vol] 21 mmol/L 22-26 [facility] Ketones Test strip Ql (U)Ord ered By: Quentin Melvin on 12-08-2022 Ketones Ql (U) 15 mg/dl Negative [facility] Laboratory - Chemistry and C hemistry - challengeOrdered By: Quentin Melvin on 12-08-2022 CO2 [Moles/Vol] 22 mmol/L 23-33 [facility] Mucus LM Ql (Urine sed)Order ed By: Quentin Melvin on 12-08-2022 Mucus Ql (Urine sed) 0 SEEN /hpf [facility] Nitrite Test strip Ql (U)Ord ered By: Quentin Melvin on 12-08-2022 Nitrite Ql (U) Positive Negative [facility] No Panel InformationOrdered By: Quentin Melvin on 12-08-2022 Bed Mix Venous Bld PCO2 at Pat Temp 29.3 mmHg 41-51 [facility] Blood Gas Specimen Type PHIL [facility] Venous Blood Base Excess -3 mmol/L -1.0-3.5 [facility] PO2 venousOrdered By: Quentin Melvin on 12-08-2022 Oxygen (BldV) [Partial pressure] 55 mm[Hg] 25-40 [facility] Protein Test strip Ql (U)Ord ered By: Quentin Melvin on 12-08-2022 Protein Ql (U) 100 mg/dl Negative [facility] Squamous epithelial cells de tection in urine sediment by light microscopyOrdered By: Quentin Melvin on 12-08-2022 Epithelial cells.squamous LM Ql (Urine sed) 0-5 SEEN /hpf 5-10 [facility] Urine blood detectionOrdered By: Quentin Melvin on 12-08-2022 RBC Ql (U) 250 /ul Negative [facility] RBC Ql (U) 25-50 SEEN /hpf 0-5 [facility] Urine clarityOrdered By: Marciano Melvin on 12-08-2022 Clarity (U) Sl. Cloudy Clear [facility] Urine color determinationOrd ered By: Quentin Melvin on 12-08-2022 Color (U) Yellow Yellow [facility] Urine glucose detectionOrder ed By: Quentin Melvin on 12-08-2022 Glucose Ql (U) Normal mg/dl Normal [facility] Urine leukocyte esterase det ection by dipstickOrdered By: Quentin Melvin on 12-08-2022 Leukocyte esterase Test strip Ql (U) 500 /ul Negative [facility] Urine pHOrdered By: Quentin dodd on 12-08-2022 pH (U) 6.0 [pH] 5.0 - 8.0 [facility] Urine sediment bacteria coun t by microscopy (number/high power field)Ordered By: Quentin Melvin on 12-08-2022 Bacteria LM.HPF (Urine sed) [#/Area] 1 /[HPF] None Seen [facility] Urine specific gravity measu rementOrdered By: Quentin Melvin on 12-08-2022 Specific gravity (U) [Rel density] 1.010 1.002-1.030 [facility] Urobilinogen Auto test strip Ql (U)Ordered By: Quentin Melvin on 12-08-2022 Urobilinogen Ql (U) Normal mg/dl Normal [facility] Vital signsOrdered By: Adrian Melvin on 12-08-2022 Oxygen saturation in Blood 90 % 50-70 [facility] pH measurementOrdered By: Li Melvin on 12-08-2022 pH (Unsp spec) 7.46 [pH] 7.32-7.42 [facility] Culture, urineOrdered By: Dr Taylor Grajeda on 08-16-2022 Bacteria identified Cx Nom (U) Positive [facility] Absolute lymphocyte counton 01-02-2022 Lymphocytes Auto (Unsp spec) [#/Vol] 0.84 10*3/uL 0.83-4.51 [facility] Work Phone: Basophil percentageon 2021 Basophils/100 WBC (Bld) 1.0 % 0-1 [facility] Work Phone: Bilirubin [Mass/Vol] 0.40 mg/dL 0.20-1.00 [facility] Work Phone: Comment on above: For patients on eltr ombopag therapy, use of Dimension [place] TBIL is not recommended. Chloride [Moles/Vol] 100 mmol/L 98-107 [facility] Work Phone: Eosinophils/100 WBC (Bld) 2.6 % 0-5 [facility] Work Phone: Glucose [Mass/Vol] 81 mg/dL 74-106 [facility] Work Phone: Neutrophils (Bld) [#/Vol] 4.2 10*3/uL 2.0-7.7 [facility] Work Phone: Neutrophils/100 WBC (Bld) 72.8 % 47-70 [facility] Work Phone: Potassium [Moles/Vol] 4.0 mmol/L 3.5-5.1 [facility] Work Phone: Protein [Mass/Vol] 7.7 g/dL 6.4-8.2 [facility] Work Phone: Sodium [Moles/Vol] 135 mmol/L 136-145 [facility] Work Phone: WBC (Bld) [#/Vol] 5.8 10*3/uL 4.4-11.0 [facility]: Blood erythrocytes count (nu mber/volume)on 01-02-2022 RBC (Bld) [#/Vol] 3.83 10*6/uL 4.2-5.4 [facility]: [phone] Blood hemoglobin measurement (mass/volume)on 01-02-2022 Hemoglobin (Bld) [Mass/Vol] 11.5 g/dL 12.0-15.0 [facility] Work Phone: [phone] Blood lymphocytes/100 leukoc yteson 01-02-2022 Lymphocytes/100 WBC (Bld) 14.4 % 19-41 [facility] Work Phone: [phone] Blood monocytes/100 leukocyt eson 01-02-2022 Monocytes/100 WBC (Bld) 8.9 % 0-10 [facility] Work Phone: Blood platelet mean volumeon 01-02-2022 Platelet mean volume (Bld) [Entitic vol] 9.6 fL 6.2-12.0 [facility] Work Phone: Determination of erythrocyte mean corpuscular volume (MCV)on 01-02-2022 MCV (RBC) [Entitic vol] 94.5 fL 81-99 [facility] Work Phone: Hematocrit Auto (Bld) [Volum e fraction]on 01-02-2022 Hematocrit (Bld) [Volume fraction] 36.2 % 37-47 [facility] Work Phone: [phone] Laboratory - Chemistry and C hemistry - challengeon 01-02-2022 ALP [Catalytic activity/Vol] 80 U/L 45-117 [facility] Work Phone: ALT [Catalytic activity/Vol] 20 U/L 13-56 [facility] Work Phone: CO2 [Moles/Vol] 28.0 mmol/L 21.0-32.0 [facility] Work Phone: Free T4 [Mass/Vol] 1.40 ng/dL 0.76-1.46 [facility] Work Phone: [phone] Globulin (S) [Mass/Vol] 3.9 g/dL 2.2-4.2 [facility] Work Phone: [phone] Urea nitrogen/Creatinine [Mass ratio] 19.0 mg/mg 10-20 [facility] Work Phone: [phone] Laboratory - Hematology and Cell countson 01-02-2022 Erythrocyte distribution width (RBC) [Entitic vol] 41.6 fL 35.1-43.9 [facility] Work Phone: [phone] Erythrocyte distribution width (RBC) [Ratio] 12.1 % 11.6-14.6 [facility] Work Phone: [phone] Immature granulocytes/100 WBC (Bld) 0.300 % 0.0-0.9 [facility] Work Phone: [phone] Comment on above: IG% - Immature Granu locytes (promyelocytes, myelocytes and metamyelocytes) > 1% indicates that a LEFT SHIFT is Present. MCH (RBC) [Entitic mass] 30.0 pg 27.0-32.0 [facility] Work Phone: [phone] Nucleated RBC/100 WBC (Bld) [Ratio] 0 % 0-5 [facility] Work Phone: [phone] MCHC Auto (RBC) [Mass/Vol]on 01-02-2022 MCHC (RBC) [Mass/Vol] 31.8 g/dL 32-36 [facility] Work Phone: [phone] Panel Informationon 01-02 Estimated GFR (MDRD) Amer 64 mL/min >60 [facility] Work Phone: [phone] Comment on above: GFR Calc Estimated GFR (MDRD) Non-Af Amer 53 mL/min >60 [facility] Work Phone: [phone] Comment on above: Non- GFR Calc Free Triiodothyronine (T3) pg/dL 2.7 pg/mL 2.18-3.98 [facility] Work Phone: [phone] Thyroid Stimulating Hormone (TSH) 0.67 uIU/mL 0.358-3.74 [facility] Work Phone: [phone] Platelets bldon 01-02-2022 Platelets (Bld) [#/Vol] 300 10*3/uL 150-450 [facility] Work Phone: [phone] Serum or plasma albumin rosa isela urement (mass/volume)on 01-02-2022 Albumin [Mass/Vol] 3.8 g/dL 3.2-5.0 [facility] Work Phone: [phone] Serum or plasma albumin/glob ulin mass ratioon 01-02-2022 Albumin/Globulin [Mass ratio] 1.0 {ratio} 0.9-2.4 [facility] Work Phone: [phone] Serum or plasma calcium rosa isela urement (mass/volume)on 01-02-2022 Calcium [Mass/Vol] 9.1 mg/dL 8.5-10.1 [facility] Work Phone: [phone] Serum or plasma creatinine m easurement (mass/volume)on 01-02-2022 Creatinine [Mass/Vol] 1.05 mg/dL 0.55-1.02 [facility] Work Phone: Comment on above: The validity of the calculated GFR & GFRAA in patients over 70 years has not been determined. Clinical correlation is essential. Serum or plasma urea nitroge n measurement (mass/volume)on 01-02-2022 Urea nitrogen [Mass/Vol] 20 mg/dL 7-18 [facility] Work Phone: [phone] Thin prep Papanicolaou smear with manual screeningon 01-02-2022 Thin prep Papanicolaou smear with manual screening 18 U/L 15-37 [facility] Work Phone: [phone] Thin prep Papanicolaou smear with manual screening 7 5-15 [facility] Work Phone: [phone] Culture, urineon 12-22-2021 Bacteria identified Cx Nom (U) Presumptive E. coli [facility] Work Phone: Absolute lymphocyte counton 10-10-2021 Lymphocytes Auto (Unsp spec) [#/Vol] 0.76 10*3/uL 0.83-4.51 [facility] Work Phone: Basophil percentageon 2021 Basophils/100 WBC (Bld) 0.9 % 0-1 [facility] Work Phone: Bilirubin [Mass/Vol] 0.40 mg/dL 0.20-1.00 [facility] Work Phone: Comment on above: For patients on eltr ombopag therapy, use of Dimension [place] TBIL is not recommended. Chloride [Moles/Vol] 100 mmol/L 98-107 [facility] Work Phone: Cholesterol [Mass/Vol] 198 mg/dL <200 [facility] Work Phone: Comment on above: <200 mg/dL Desirable 200-240 mg/dL Borderline >240 mg/dL High Risk Eosinophils/100 WBC (Bld) 2.5 % 0-5 [facility] Work Phone: Glucose [Mass/Vol] 90 mg/dL 74-106 [facility] Work Phone: Comment on above: Please note revised GLUCOSE reference range effective 2017. Neutrophils (Bld) [#/Vol] 5.3 10*3/uL 2.0-7.7 [facility] Work Phone: Neutrophils/100 WBC (Bld) 78.4 % 47-70 [facility] Work Phone: Potassium [Moles/Vol] 4.1 mmol/L 3.5-5.1 [facility] Work Phone: Protein [Mass/Vol] 7.8 g/dL 6.4-8.2 [facility] Work Phone: Sodium [Moles/Vol] 136 mmol/L 136-145 [facility] Work Phone: Triglyceride [Mass/Vol] 155 mg/dL [facility] Work Phone: Comment on above: The drugs N-Acetylcy steine and Metamizole may falsely depress this assay.Serum Triglycerides Reference Interval Normal <150 mg/dL Borderline high 150 - 199 mg/dL High 200 - 499 mg/dL Very High > or = 500 mg/dL WBC (Bld) [#/Vol] 6.7 10*3/uL 4.4-11.0 [facility] Work Phone: Blood erythrocytes count (nu mber/volume)on 10-10-2021 RBC (Bld) [#/Vol] 3.70 10*6/uL 4.2-5.4 [facility] Work Phone: [phone] Blood hemoglobin measurement (mass/volume)on 10-10-2021 Hemoglobin (Bld) [Mass/Vol] 11.2 g/dL 12.0-15.0 [facility] Work Phone: Blood lymphocytes/100 leukoc yteson 10-10-2021 Lymphocytes/100 WBC (Bld) 11.3 % 19-41 [facility] Work Phone: Blood monocytes/100 leukocyt eson 10-10-2021 Monocytes/100 WBC (Bld) 6.5 % 0-10 [facility] Work Phone: Blood platelet mean volumeon 10-10-2021 Platelet mean volume (Bld) [Entitic vol] 9.3 fL 6.2-12.0 [facility] Work Phone: [phone] Determination of erythrocyte mean corpuscular volume (MCV)on 10-10-2021 MCV (RBC) [Entitic vol] 97.8 fL 81-99 [facility] Work Phone: [phone] Hematocrit Auto (Bld) [Volum e fraction]on 10-10-2021 Hematocrit (Bld) [Volume fraction] 36.2 % 37-47 [facility] Work Phone: [phone] Laboratory - Chemistry and C hemistry - challengeon 10-10-2021 ALP [Catalytic activity/Vol] 80 U/L 45-117 [facility] Work Phone: [phone] ALT [Catalytic activity/Vol] 20 U/L 13-56 [facility] Work Phone: [phone] CO2 [Moles/Vol] 30.0 mmol/L 21.0-32.0 [facility] Work Phone: [phone] Globulin (S) [Mass/Vol] 4.1 g/dL 2.2-4.2 [facility] Work Phone: [phone] Urea nitrogen/Creatinine [Mass ratio] 21.0 mg/mg 10-20 [facility] Work Phone: [phone] Laboratory - Hematology and Cell countson 10-10-2021 Erythrocyte distribution width (RBC) [Entitic vol] 45.6 fL 35.1-43.9 [facility] Work Phone: [phone] Erythrocyte distribution width (RBC) [Ratio] 12.7 % 11.6-14.6 [facility] Work Phone: [phone] Immature granulocytes/100 WBC (Bld) 0.400 % 0.0-0.9 [facility] Work Phone: [phone] Comment on above: IG% - Immature Granu locytes (promyelocytes, myelocytes and metamyelocytes) > 1% indicates that a LEFT SHIFT is Present. MCH (RBC) [Entitic mass] 30.3 pg 27.0-32.0 [facility] Work Phone: [phone] Nucleated RBC/100 WBC (Bld) [Ratio] 0 % 0-5 [facility] Work Phone: [phone] MCHC Auto (RBC) [Mass/Vol]on 10-10-2021 MCHC (RBC) [Mass/Vol] 30.9 g/dL 32-36 [facility] Work Phone: [phone] Panel Informationon 10-10 Estimated GFR (MDRD) Amer 64 mL/min >60 [facility] Work Phone: [phone] Comment on above: GFR Calc Estimated GFR (MDRD) Non-Af Amer 53 mL/min >60 [facility] Work Phone: [phone] Comment on above: Non- GFR Calc Platelets bldon 10-10-2021 Platelets (Bld) [#/Vol] 294 10*3/uL 150-450 [facility] Work Phone: Serum or plasma albumin rosa isela urement (mass/volume)on 10-10-2021 Albumin [Mass/Vol] 3.7 g/dL 3.2-5.0 [facility] Work Phone: Serum or plasma albumin/glob ulin mass ratioon 10-10-2021 Albumin/Globulin [Mass ratio] 0.9 {ratio} 0.9-2.4 [facility] Work Phone: Serum or plasma calcium rosa isela urement (mass/volume)on 10-10-2021 Calcium [Mass/Vol] 9.5 mg/dL 8.5-10.1 [facility] Work Phone: Serum or plasma cholesterol in HDL measurement (mass/volume)on 10-10-2021 Cholesterol in HDL [Mass/Vol] 86 mg/dL [facility] Work Phone: Comment on above: The drugs N-Acetylcy steine and Metamizole may falsely depress this assay. Reference Range HDL <40 mg/dL Low HDL Cholesterol HDL >or= 60 mg/dL High HDL Cholesterol Serum or plasma cholesterol in VLDL measurement (mass/volume)on 10-10-2021 Cholesterol in VLDL [Mass/Vol] 31 mg/dL 5-40 [facility] Work Phone: Serum or plasma creatinine m easurement (mass/volume)on 10-10-2021 Creatinine [Mass/Vol] 1.05 mg/dL 0.55-1.02 [facility] Work Phone: Comment on above: The validity of the calculated GFR & GFRAA in patients over 70 years has not been determined. Clinical correlation is essential. Serum or plasma low density lipoprotein (LDL) cholesterol measurement (mass/volume)on 10-10-2021 Cholesterol in LDL [Mass/Vol] 81 mg/dL 0-130 [facility] Work Phone: Serum or plasma urea nitroge n measurement (mass/volume)on 01-03-2022 Urea nitrogen [Mass/Vol] 22 mg/dL 7-18 [facility] Work Phone: Thin prep Papanicolaou smear with manual screeningon 10-10-2021 Thin prep Papanicolaou smear with manual screening 17 U/L 15-37 [facility] Work Phone: Thin prep Papanicolaou smear with manual screening 6 5-15 [facility] Work Phone: CNOVon 03-14-2019 CNOV Office Visit (RA) MARLI ROSALES ([id number]) 1935 F Date Time Provider Department 03/14/19 12:30 PM SUDHAKAR BHATT During your visit today, we recorded the following information about you: Pulse Respiration Blood pressure 78/minute 16/minute 128/88 Sudhakar Bhatt MD 03/14/2019 12:34 PM Signed NEUROSURGERY CONSULT NOTE Sudhakar Bhatt MD Date of visit: March 14, 2019 Patient Name: Ms.Betty Montse Rosales Date of : 1935 Current Age: [age] year old Sex: female MRN/E# [id number] Chief Complaint: Patient presents with: Low Back Pain HISTORY OF PRESENT ILLNESS : Ms. Rosales presents to the office today for a follow up visit for low back pain. She is a former patient with a history of two prior lumbar fusions. She states over the last several years she had had multiple falls causing a multitude of orthopedic issues with operations. She describes worsening low back pain without radiation and she is concerned that her hardware is no longer intact. She is active with pain management and has been getting facet injections without improvement. She is scheduled for an RFA in the near future and is hopeful this will be beneficial. She presents today for evaluation and plan of care. Symptoms: low back pain PREVIOUS CONSERVATIVE TREATMENTS: Pain management, injections PREVIOUS SURGERY: SURGERY #1: 2 prior lumbar fusions PAIN EVALUATION No data found. PAST MEDICAL HISTORY Diagnosis Date - Diverticulitis - Hard of hearing bilateral hearing aides - Hiatal hernia - HTN (hypertension) - Hypothyroid - Osteoporosis - PMH - PAST MEDICAL HISTORY OF Spastic Bowel PAST SURGICAL HISTORY Procedure Laterality Date - DELIVERY ONLY , low transverse - DANDC, DIAG AND/OR THERAPEUTIC Dilation AND curettage - EGD W/O [facility] SPECIMEN W/BX 11/12/2017 for GI bleeding - ? source, gastric AVM? - plan for repeat endoscopy - KNEE SCOPE,DIAGNOSTIC 1997 Arthroscopy, knee - LIGATE FALLOPIAN TUBE Tubal ligation - PAST SURGICAL HISTORY OF 1969 Polypedtomy - PAST SURGICAL HISTORY OF 1988 Bunionectomy - PAST SURGICAL HISTORY OF 1990 Cholecycteceomy - PAST SURGICAL HISTORY OF 1991 Nasal surgery removed polyps - PAST SURGICAL HISTORY OF 1997 Ant AND Posterior repair of vagina and aubrey nohemy - PAST SURGICAL HISTORY OF 2008 Spinal fusion L3-4 - PAST SURGICAL HISTORY OF 2004 spinal injections x3 - PAST SURGICAL HISTORY OF 2005 spinal injections x3 - PAST SURGICAL HISTORY OF 2008 Cataract surgery (bilat) - REMOVAL OF TONSILS,12+ Y/O - TOTAL ABDOM HYSTERECTOMY 1977 Hysterectomy, NICOLE - TOTAL KNEE REPLACEMENT 2002 Knee replacement, total No family history on file. ALLERGIES Allergen Reactions - Mold CHILDRESS sneezing, Current Outpatient Medications Medication Sig Dispense Refill - Cetirizine (ZYRTEC) 10 mg cap Take by mouth. - traZODone (DESYREL) 50 mg tablet Take 50 mg by mouth daily at bedtime. - amitriptyline (ELAVIL) 50 mg tablet Take 50 mg by mouth daily at bedtime. - famotidine (PEPCID) 20 mg tablet Take 20 mg by mouth twice daily. - pantoprazole DR (PROTONIX) 40 mg tablet Take 40 mg by mouth once daily. - gabapentin (NEURONTIN) 300 mg capsule Take 300 mg by mouth three times daily. - ferrous sulfate 325 mg (65 mg iron) tablet Take 325 mg by mouth daily with breakfast. - ergocalciferol, vitamin D2, (VITAMIN D) 50,000 unit capsule Take 50,000 Units by mouth once each week. - polyethylene glycol 3350 (MIRALAX) 17 gram/dose powder Take 17 g by mouth once daily. - amLODIPine (NORVASC) 5 mg tablet Take 5 mg by mouth once daily. - Omeprazole 40 mg capsule Take 20 mg by mouth once daily. - fluticasone propionate(FLONASE 50 MCG/ACTUATION NASAL SPRAY) One puff per nostril before lying down for bed. 0 - levothyroxine sodium(SYNTHROID 25 MCG TAB) Take one(1) tablet daily. 0 - TRAMADOL 50 MG TAB Take half (1/2) to one(1) tablet every six(6) hours as needed for pain. (Patient taking differently: four times a day) 60 0 No current facility-administere d medications for this visit. REVIEW OF SYSTEMS Review of Systems Constitutional: Negative for chills, diaphoresis and fever. Respiratory: Negative for cough, shortness of breath and wheezing. Gastrointestinal: Negative for constipation, diarrhea and nausea. Genitourinary: Negative for difficulty urinating, frequency and urgency. Musculoskeletal: Positive for back pain. Negative for gait problem and neck pain. Neurological: Positive for weakness and numbness. Negative for dizziness. OBJECTIVE: BP 128/88 Pulse 78 Resp 16 Physical Exam Constitutional: she is oriented to person, place, and time and well-developed, well-nourished, and in no distress. Pulmonary/Chest: Effort normal. Neurological: she is alert and oriented to person, place, and time. Reflex Scores: Patellar reflexes are 2+ on the right side and 2+ on the left side. Skin: Skin is warm and dry. Neurological Exam Mental Status Alert. Motor Normal muscle bulk throughout. Normal muscle tone. Right Left Hip flexion 4 5 Knee flexion 5 5 Knee extension 5 5 Plantarflexion 5 5 Dorsiflexion 3 3 positive straight leg raise bilaterally Sensory Sensation is intact to light touch, pinprick, vibration and proprioception in all four extremities. Reflexes Right Left Patellar 2+ 2+ Data Review IMAGING STUDIES: no recent imaging Personal review of medical records: I reviewed with the patient, history, physical exam, the images and the chart. 1. Chronic bilateral low back pain without sciatica The patient returns today for follow-up. She continues to have some low back pain and is concerned about this. I told her we will obtain some plain x-rays lumbar spine and have her evaluated in this manner. We will contact her with the result upon review by radiology. All of her questions been discussed in detail. Sudhakar Bhatt MD Referring Provider: SELF [[id number]] Allergies As of Date: 03/14/2019 Noted Allergy Reaction MOLD 02/08/2010 Comments: CHILDRESS sneezing, Date Reviewed: 03/14/2019 Reviewed by: Sudhakar Bhatt - Fully Assessed Reason for Visit: Low Back Pain [126] Primary Visit Diagnosis:Chronic bilateral low back pain without sciatica [M54.5, G89.29] Order(s):XR LUMBAR LIMITED 2V AP/LAT [[id number]] Order #: [id number] FUTURE Prescriptions as of 03/14/2019 Sig: CETIRIZINE 10 MG CAPSULE Take by mouth. TRAZODONE 50 MG TABLET Take 50 mg by mouth daily at * AMITRIPTYLINE 50 MG TABLET Take 50 mg by mouth daily at * FAMOTIDINE 20 MG TABLET Take 20 mg by mouth twice lakeisha* PANTOPRAZOLE 40 MG TABLET,DEL* Take 40 mg by mouth once wilberto* GABAPENTIN 300 MG CAPSULE Take 300 mg by mouth three ti* FERROUS SULFATE 325 MG (65 MG* Take 325 mg by mouth daily wi* ERGOCALCIFEROL (VITAMIN D2) 5* Take 50,000 Units by mouth on* POLYETHYLENE GLYCOL 3350 17 G* Take 17 g by mouth once daily. AMLODIPINE 5 MG TABLET Take 5 mg by mouth once daily. OMEPRAZOLE 40 MG CAPSULE,SHERI* Take 20 mg by mouth once wilberto* FLONASE 50 MCG/ACTUATION [employer]* One puff per nostril before l* SYNTHROID 25 MCG TABLET Take one(1) tablet daily. TRAMADOL 50 MG TABLET Take half (1/2) to one(1) tab* Patient taking differently: four times a day Problem List As Of Date 03/14/2019 Noted Resolved LBP (Low Back Pain) [M54.5] INVALID FOR* Myalgia and Myositis [PSI2662] INVALID FOR* Right Knee Pain [M25.561] INVALID FOR* Displacement of Lumbar Intervertebral Disc with*INVALID FOR* Status Post Laminectomy with Spinal Fusion [Z98*INVALID FOR* Primary localized osteoarthrosis, lower leg [M1*INVALID FOR* Acute cystitis without hematuria [N30.00] INVALID FOR* Medications Discontinued During This Encounter propranolol (INDERAL) 10 mg tablet 03/14/2019 Class: Historical Med Route: ORAL Sig: Take 10 mg by mouth once daily. Disc: Course of therapy completed mirabegron (MYRBETRIQ) 25 mg Tb24 03/14/2019 Class: Historical Med Route: ORAL Sig: Take 25 mg by mouth once daily. Disc: Course of therapy completed lisinopril(ZESTRIL 5 MG TAB) 0 02/08/2010 03/14/2019 Class: Historical Med Route: ORAL Sig: Take one(1) tablet daily. Disc: Course of therapy completed fexofenadine (DERRICK) 180 mg tablet 03/14/2019 Class: Historical Med Route: ORAL Sig: Take 180 mg by mouth once daily. Disc: Course of therapy completed docusate sodium(COLACE 100 MG CAP) 0 02/08/2010 03/14/2019 Class: Historical Med Route: ORAL Sig: Take one(1) tablet twice daily. Disc: Course of therapy completed COMPOUNDED PRESCRIPTION 0 02/08/2010 03/14/2019 Class: Historical Med Sig: Phazyme 125 mg prn for gas Disc: Course of therapy completed COMPOUNDED PRESCRIPTION 0 02/08/2010 03/14/2019 Class: Historical Med Sig: Astelon nasal spray 2 sprays each nastsil daily Disc: Course of therapy completed ascorbic acid, vitamin C, (VITAMIN C* 03/14/2019 Class: Historical Med Route: ORAL Sig: Take 500 mg by mouth once daily. Disc: Course of therapy completed alendronate (FOSAMAX) 70 mg tablet 03/14/2019 Class: Historical Med Route: ORAL Sig: Take 70 mg by mouth once each week. Disc: Course of therapy completed Encounter Status:Closed by SUDHAKAR BHATT MD on 03/14/19 [facility] PROGRESSon 03-14-2019 Protein mass conc HNO ID: [id number] Author: Sudhakar Bhatt Service: ? Author Type: Physician Type: Progress Notes Filed: 03/14/2019 12:34 PM Note Text: NEUROSURGERY CONSULT NOTE Sudhakar Bhatt MD Date of visit: March 14, 2019 Patient Name: Ms.Betty Montse Rosales Date of : 1935 Current Age: [age] year old Sex: female MRN/E# [id number] Chief Complaint: Patient presents with: Low Back Pain HISTORY OF PRESENT ILLNESS : Ms. Rosales presents to the office today for a follow up visit for low back pain. She is a former patient with a history of two prior lumbar fusions. She states over the last several years she had had multiple falls causing a multitude of orthopedic issues with operations. She describes worsening low back pain without radiation and she is concerned that her hardware is no longer intact. She is active with pain management and has been getting facet injections without improvement. She is scheduled for an RFA in the near future and is hopeful this will be beneficial. She presents today for evaluation and plan of care. Symptoms: low back pain PREVIOUS CONSERVATIVE TREATMENTS: Pain management, injections PREVIOUS SURGERY: SURGERY #1: 2 prior lumbar fusions PAIN EVALUATION No data found. PAST MEDICAL HISTORY Diagnosis Date - Diverticulitis - Hard of hearing bilateral hearing aides - Hiatal hernia - HTN (hypertension) - Hypothyroid - Osteoporosis - PMH - PAST MEDICAL HISTORY OF Spastic Bowel PAST SURGICAL HISTORY Procedure Laterality Date - DELIVERY ONLY , low transverse - DANDC, DIAG AND/OR THERAPEUTIC Dilation AND curettage - EGD W/O [facility] SPECIMEN W/BX 11/12/2017 for GI bleeding - ? source, gastric AVM? - plan for repeat endoscopy - KNEE SCOPE,DIAGNOSTIC 1997 Arthroscopy, knee - LIGATE FALLOPIAN TUBE Tubal ligation - PAST SURGICAL HISTORY OF 1969 Polypedtomy - PAST SURGICAL HISTORY OF 1988 Bunionectomy - PAST SURGICAL HISTORY OF 1990 Cholecycteceomy - PAST SURGICAL HISTORY OF 1991 Nasal surgery removed polyps - PAST SURGICAL HISTORY OF 1997 Ant AND Posterior repair of vagina and aubrey nohemy - PAST SURGICAL HISTORY OF 2008 Spinal fusion L3-4 - PAST SURGICAL HISTORY OF 2004 spinal injections x3 - PAST SURGICAL HISTORY OF 2005 spinal injections x3 - PAST SURGICAL HISTORY OF 2008 Cataract surgery (bilat) - REMOVAL OF TONSILS,12+ Y/O - TOTAL ABDOM HYSTERECTOMY 1977 Hysterectomy, NICOLE - TOTAL KNEE REPLACEMENT 2002 Knee replacement, total No family history on file. ALLERGIES Allergen Reactions - Mold CHILDRESS sneezing, Current Outpatient Medications Medication Sig Dispense Refill - Cetirizine (ZYRTEC) 10 mg cap Take by mouth. - traZODone (DESYREL) 50 mg tablet Take 50 mg by mouth daily at bedtime. - amitriptyline (ELAVIL) 50 mg tablet Take 50 mg by mouth daily at bedtime. - famotidine (PEPCID) 20 mg tablet Take 20 mg by mouth twice daily. - pantoprazole DR (PROTONIX) 40 mg tablet Take 40 mg by mouth once daily. - gabapentin (NEURONTIN) 300 mg capsule Take 300 mg by mouth three times daily. - ferrous sulfate 325 mg (65 mg iron) tablet Take 325 mg by mouth daily with breakfast. - ergocalciferol, vitamin D2, (VITAMIN D) 50,000 unit capsule Take 50,000 Units by mouth once each week. - polyethylene glycol 3350 (MIRALAX) 17 gram/dose powder Take 17 g by mouth once daily. - amLODIPine (NORVASC) 5 mg tablet Take 5 mg by mouth once daily. - Omeprazole 40 mg capsule Take 20 mg by mouth once daily. - fluticasone propionate(FLONASE 50 MCG/ACTUATION NASAL SPRAY) One puff per nostril before lying down for bed. 0 - levothyroxine sodium(SYNTHROID 25 MCG TAB) Take one(1) tablet daily. 0 - TRAMADOL 50 MG TAB Take half (1/2) to one(1) tablet every six(6) hours as needed for pain. (Patient taking differently: four times a day) 60 0 No current facility-administere d medications for this visit. REVIEW OF SYSTEMS Review of Systems Constitutional: Negative for chills, diaphoresis and fever. Respiratory: Negative for cough, shortness of breath and wheezing. Gastrointestinal: Negative for constipation, diarrhea and nausea. Genitourinary: Negative for difficulty urinating, frequency and urgency. Musculoskeletal: Positive for back pain. Negative for gait problem and neck pain. Neurological: Positive for weakness and numbness. Negative for dizziness. OBJECTIVE: BP 128/88 Pulse 78 Resp 16 Physical Exam Constitutional: she is oriented to person, place, and time and well-developed, well-nourished, and in no distress. Pulmonary/Chest: Effort normal. Neurological: she is alert and oriented to person, place, and time. Reflex Scores: Patellar reflexes are 2+ on the right side and 2+ on the left side. Skin: Skin is warm and dry. Neurological Exam Mental Status Alert. Motor Normal muscle bulk throughout. Normal muscle tone. Right Left Hip flexion 4 5 Knee flexion 5 5 Knee extension 5 5 Plantarflexion 5 5 Dorsiflexion 3 3 positive straight leg raise bilaterally Sensory Sensation is intact to light touch, pinprick, vibration and proprioception in all four extremities. Reflexes Right Left Patellar 2+ 2+ Data Review IMAGING STUDIES: no recent imaging Personal review of medical records: I reviewed with the patient, history, physical exam, the images and the chart. 1. Chronic bilateral low back pain without sciatica The patient returns today for follow-up. She continues to have some low back pain and is concerned about this. I told her we will obtain some plain x-rays lumbar spine and have her evaluated in this manner. We will contact her with the result upon review by radiology. All of her questions been discussed in detail. Sudhakar Bhatt MD [facility] Office Visit: UC: YOSVANY daigledeneen 07-11-2017 Fall risk assessment No Invalid Interpretation Code [facility] Work Phone: Protein mass conc Done Invalid Interpretation Code [facility] Work Phone: Tobacco smoking status NHIS Never Invalid Interpretation Code [facility] Work Phone: Tobacco smoking status [facility] Never smoker Invalid Interpretation Code [facility] Work Phone: Lab Report: Basic Metabolic Profile (BMP)on 04-12-2016 Anion gap 4 molar conc 10 Invalid Interpretation Code 5-15 [facility] Work Phone: Calcium mass conc 8.1 mg/dL Low 8.5-10.1 [facility] Work Phone: Chloride molar conc 103 mmol/L Invalid Interpretation Code 98-107 [facility] Work Phone: CO2 ppres (BldV) 25.0 mmol/L Invalid Interpretation Code 21.0-32.0 [facility] Work Phone: Creatinine mass conc 0.62 mg/dL Invalid Interpretation Code 0.55-1.20 [facility] Work Phone: EST GFR - AA 120 mL/min Invalid Interpretation Code >60 [facility] Work Phone: GFR/1.73 sq M predicted among non-blacks MDRD vol rate/area (S/P/Bld) 99 mL/min/{1.73_m2} Invalid Interpretation Code >60 [facility] Work Phone: Glucose mass conc 118 mg/dL High 70-110 [facility] Work Phone: Potassium molar conc 4.0 mmol/L Invalid Interpretation Code 3.5-5.1 [facility] Work Phone: Sodium molar conc 138 mmol/L Invalid Interpretation Code 136-145 [facility] Work Phone: Urea nitrogen mass conc 10 mg/dL Invalid Interpretation Code 7-18 [facility] Work Phone: Urea nitrogen/Creatinine mass ratio 16.2 RATIO Invalid Interpretation Code 10-20 [facility] Work Phone: Lab Report: CBC-Complete Blo od Cnt No Diffon 04-12-2016 Erythrocyte distribution width Auto Ratio (RBC) 12.1 % Invalid Interpretation Code 11.6-14.6 [facility] Work Phone: Erythrocyte distribution width Auto Ratio (RBC) 39.8 fL Invalid Interpretation Code 35.1-43.9 [facility] Work Phone: Hematocrit Auto Volume Fraction (Bld) 27.9 % Low 37-47 [facility] Work Phone: Hemoglobin mass conc (Bld) 9.1 g/dL Low 12.0-15.0 [facility] Work Phone: MCH Auto Entitic mass (RBC) 30.5 pg Invalid Interpretation Code 27.0-32.0 [facility] Work Phone: MCHC Auto mass conc (RBC) 32.6 G/GL Invalid Interpretation Code 32-36 [facility] Work Phone: MCV Auto Entitic volume (RBC) 93.6 fL Invalid Interpretation Code 81-99 [facility] Work Phone: Platelet mean volume Emerson-Yariel Entitic volume (Bld) 10.3 fL Invalid Interpretation Code 6.2-12.0 [facility] Work Phone: Platelets Auto #/vol (Bld) 177 10*3/mm3 Invalid Interpretation Code 150-450 [facility] Work Phone: RBC Auto #/vol (Bld) 2.98 10*6/uL Low 4.2-5.4 [facility] Work Phone: WBC Auto #/vol (Bld) 9.1 10*3/uL Invalid Interpretation Code 4.4-11.0 [facility] Work Phone: Microbiology: MRSA/SAID SCRE ENon 03-25-2016 MRSA+SAID SCRN . Invalid Interpretation Code [facility] Work Phone: Lab Report: Urinalysis, Rout ine (Dipstick)on 03-23-2016 Albumin Ql (U) Negative Invalid Interpretation Code Negative [facility] Work Phone: Bilirubin Ql (U) Negative Invalid Interpretation Code Negative [facility] Work Phone: Color Nom (U) Yellow Invalid Interpretation Code Yellow [facility] Work Phone: Glucose Ql (U) Normal mg/dl Invalid Interpretation Code Normal [facility] Work Phone: Ketones mass conc (U) Negative Invalid Interpretation Code Negative [facility] Work Phone: Leukocyte esterase Test strip Ql (U) 500 High Negative [facility] Work Phone: OCCULT BLOOD-UR 10 High Negative [facility] Work Phone: pH Test strip (U) 6.0 [pH] Invalid Interpretation Code 5.0 - 8.0 [facility] Work Phone: Specific gravity Refractometry Relative Density (U) 1.010 Invalid Interpretation Code 1.002-1.030 [facility] Work Phone: Rx Refill: eRx Request for F LUCONAZOLE 200 MG ORAL TABSon 03-01-2016 [id number]`FLUCONAZ OLE 200 MG ORAL TABS`200``3 Unspecified`3`1 po daily x 3 days``1`0`12/14/2015 `02/10/2016`[facility] [place]*`[id number]` [id number]``FLUCONA ZOLE 200MG TAB Quantity: 3 Tablet Instructions: TAKE ONE TABLET BY MOUTH ONCE DAILY FOR 3 DAYS Better [facility] Work Phone: Lab Report: CBC W/Diff, Auto matedon 12-14-2015 Basophils/100 WBC Auto (Bld) 0.4 % Invalid Interpretation Code 0-1 [facility] Work Phone: Eosinophils/100 WBC Auto (Bld) 5.5 % High 0-5 [facility] Work Phone: Immature granulocytes #/vol (Bld) 0.200 % Invalid Interpretation Code 0.0-0.9 [facility] Work Phone: Lymphocytes Auto #/vol (Bld) 0.96 X10 3/UL Invalid Interpretation Code 0.83-4.51 [facility] Work Phone: Lymphocytes/100 WBC Auto (Bld) 18.3 % Low 19-41 [facility] Work Phone: Monocytes/100 WBC Auto (Bld) 10.6 % High 0-10 [facility] Work Phone: Neutrophils Auto #/vol (Bld) 3.4 X10 3/UL Invalid Interpretation Code 2.0-7.7 [facility] Work Phone: Neutrophils/100 WBC Auto (Bld) 65.0 % Invalid Interpretation Code 47-70 [facility] Work Phone: Lab Report: Urinalysis, Comp leteon 12-10-2015 Epithelial cells LM.HPF #/area (Urine sed) 0-5 SEEN Invalid Interpretation Code 5-10 [facility] Work Phone: Mucus LM Ql (Urine sed) 0 SEEN Invalid Interpretation Code [facility] Work Phone: RBC LM.HPF #/vol (Urine sed) 0 SEEN Invalid Interpretation Code 0-5 [facility] Work Phone: WBC >100 SEEN Invalid Interpretation Code 0-5 [facility] Work Phone: Lab Report: ANTINUCLEAR ANTI BODIES DIRECTon 09-17-2015 Nuclear Ab IA Qn (S) Negative Invalid Interpretation Code Negative [facility] Work Phone: Replaced Document: (P) CCP I gG Antibodieson 09-15-2015 ANTI-CCP [id number] 6 units Invalid Interpretation Code 0-19 [facility] Work Phone: Replaced Document: (P) Hep B Surface Antibodieson 09-15-2015 HBV surface Ab IA Qn Non Reactive Invalid Interpretation Code . [facility] Work Phone: Replaced Document: (P) Hepat itis B Surface Agon 09-15-2015 HBV surface Ag Ql (S) Negative Invalid Interpretation Code Negative [facility] Work Phone: Replaced Document: (P) Hepat itis B Core AB IgMon 09-15-2015 HB CORE [id number] Negative Invalid Interpretation Code Negative [facility] Work Phone: Replaced Document: (P) Hepat itis C Antibodieson 09-15-2015 HCV Ab IB Ql (S) <0.1 Invalid Interpretation Code 0.0-0.9 [facility] Work Phone: Lab Report: Comprehensive Me tabolic Profilon 09-13-2015 Albumin mass conc 3.7 g/dL Invalid Interpretation Code 3.4-5.0 [facility] Work Phone: Albumin/Globulin mass ratio 1.1 {ratio} Invalid Interpretation Code 0.9-2.4 [facility] Work Phone: ALP enzyme act/vol (Bld) 75 U/L Invalid Interpretation Code 50-136 [facility] Work Phone: ALT enzyme act/vol 35 U/L Invalid Interpretation Code 12-78 [facility] Work Phone: AST enzyme act/vol 26 U/L Invalid Interpretation Code 15-37 [facility] Work Phone: Bilirubin mass conc 0.60 mg/dL Invalid Interpretation Code 0.20-1.00 [facility] Work Phone: Globulin Calculated mass conc (S) 3.4 g/dL Invalid Interpretation Code 2.3-3.5 [facility] Work Phone: Protein mass conc 7.1 g/dL Invalid Interpretation Code 6.4-8.2 [facility] Work Phone: Lab Report: Rheumatoid Facto ren 09-13-2015 Rheumatoid factor LA Ql (S) < 10.0 Invalid Interpretation Code <15 [facility] Work Phone: Lab Report: CBC W/Diff, Auto matedon 04-12-2015 Absolute Neut 5.1 X10 3/UL Invalid Interpretation Code 2.0-7.7 [facility] Work Phone: Lymphocytes Auto #/vol (Bld) 1.19 X10 3/UL Invalid Interpretation Code 0.83-4.51 [facility] Work Phone: Lab Report: Ironon 5 Iron mass conc 89 ug/dL Invalid Interpretation Code 50-170 [facility] Work Phone: Lab Report: Thyroid Stim Hor jessie (TSH)on 04-12-2015 Thyrotropin Qn 3.21 u[iU]/mL Invalid Interpretation Code 0.358-3.74 [facility] Work Phone: Office Visit: UTI symptomson 03-10-2015 Appearance Nom (U) hazy Invalid Interpretation Code [facility] Work Phone: Glucose Test strip mass conc (U) Negative Invalid Interpretation Code [facility] Work Phone: Nitrite Test strip Ql (U) Negative Invalid Interpretation Code [facility] Work Phone: Urobilinogen Test strip Ql (U) 0.2 Invalid Interpretation Code [facility] Work Phone: Communication Note: Hemoccul t resultson 12-18-2014 Hemoglobin.gastrointesti nal Ql (St) Positive Invalid Interpretation Code [facility] Work Phone: Lab Report: Vitamin B12on Cobalamin (Vitamin B12) mass conc 813 pg/mL Invalid Interpretation Code 211-911 [facility] Work Phone: Lab Report: Ferritinon 12-08 Ferritin mass conc 7 ng/mL Critically low 8-252 [facility] Work Phone: Lab Report: Folates, (Folic Acid)on 12-08-2014 Folate mass conc 11.40 ng/mL Invalid Interpretation Code 3.1-17.5 [facility] Work Phone: Lab Report: Iron+Iron Bindin g Capacityon 12-08-2014 Iron binding capacity mass conc 325 ug/dL Invalid Interpretation Code 250-450 [facility] Work Phone: Lab Report: Lipid Profileon 12-08-2014 Cholesterol in HDL mass conc 77 mg/dL Invalid Interpretation Code [facility] Work Phone: Cholesterol in LDL mass conc 86 mg/dL Invalid Interpretation Code 0-130 [facility] Work Phone: Cholesterol mass conc 176 mg/dL Invalid Interpretation Code 200 [facility] Work Phone: Lipoprotein.pre-beta mass conc 13 mg/dL Invalid Interpretation Code 5-40 [facility] Work Phone: Triglyceride mass conc 64 mg/dL Invalid Interpretation Code 0-199 [facility] Work Phone: Lab Report: CRPon 07-07-2014 CRP mass conc 10.60 mg/L High 0.0-3.0 [facility] Work Phone: Office Visiton 05-21-2014 RBC Ql (U) 3+ Invalid Interpretation Code [facility] Work Phone: Culture, urine Bacteria identified Cx Nom (U) Klebsiella aerogenes [facility] Work Phone: Bacteria identified Cx Nom (U) Positive [facility] Work Phone: Vital Signs Date Time Vital Sign Value Performing Clinician Facility 06-24-2025 14:19-0400 Body temperature 98.1 [degF] Dr. Roma Grajeda DO Work Phone: [facility] 06-24-2025 14:19-0400 Diastolic blood pressure 69 mm[Hg] Dr. Roma Grajeda DO Work Phone: [facility] 06-24-2025 14:19-0400 Heart rate 74 /min Dr. Roma Grajeda DO Work Phone: [facility] 06-24-2025 14:19-0400 Respiratory rate 18 /min Dr. Roma Grajeda DO Work Phone: [facility] 06-24-2025 14:19-0400 SaO2% (BldA) [Mass fraction] 95 % Dr. Roma Grajeda DO Work Phone: [facility] 06-24-2025 14:19-0400 Systolic blood pressure 143 mm[Hg] Dr. Roma Grajeda DO Work Phone: [facility] 06-24-2025 10:42-0400 Body height 147.[address] Roma Grajeda DO Work Phone: [facility] 06-24-2025 10:42-0400 Body mass index (BMI) [Ratio] 32.2 kg/m2 Dr. Roma Grajeda DO Work Phone: [facility] 06-24-2025 10:42-0400 Body weight 69.[address] Roma Grajeda DO Work Phone: [facility] 06-11-2025 17:14-0400 Body temperature 98.2 [degF] Dr. Roma Grajeda DO Work Phone: [facility] 06-11-2025 17:14-0400 Diastolic blood pressure 74 mm[Hg] Dr. Roma Grajeda DO Work Phone: [facility] 06-11-2025 17:14-0400 Heart rate 75 /min Dr. Roma Grajeda DO Work Phone: [facility] 06-11-2025 17:14-0400 Respiratory rate 16 /min Dr. Roma Grajeda DO Work Phone: [facility] 06-11-2025 17:14-0400 SaO2% (BldA) [Mass fraction] 100 % Dr. Roma Grajeda DO Work Phone: [facility] 06-11-2025 17:14-0400 Systolic blood pressure 159 mm[Hg] Dr. Roma Grajeda DO Work Phone: [facility] 06-11-2025 14:12-0400 Body height 147.[address] Roma Grajeda DO Work Phone: [facility] 06-11-2025 14:12-0400 Body mass index (BMI) [Ratio] 29.9 kg/m2 Dr. Roma Grajeda DO Work Phone: [facility] 06-11-2025 14:12-0400 Body weight 65.[address] Roma Grajeda DO Work Phone: [facility] 10-12-2023 06:53-0500 Respiratory rate 16 /min Dr. Roma Grajeda Work Phone: [facility] 10-11-2023 13:27-0500 Body temperature 97.6 [degF] Dr. Roma Grajeda Work Phone: [facility] 10-11-2023 13:27-0500 Diastolic blood pressure 64 mm[Hg] Dr. Roma Grajeda Work Phone: [facility] 10-11-2023 13:27-0500 Heart rate 78 /min Dr. Roma Grajeda Work Phone: [facility] 10-11-2023 13:27-0500 SaO2% (BldA) [Mass fraction] 92 % Dr. Roma Grajeda Work Phone: [facility] 10-11-2023 13:27-0500 Systolic blood pressure 107 mm[Hg] Dr. Roma Grajeda Work Phone: [facility] 10-09-2023 12:32-0500 Body mass index (BMI) [Ratio] 30.1 kg/m2 Dr. Roma Grajeda Work Phone: [facility] 10-09-2023 12:32-0500 Body weight 65.[address] Roma Grajeda Work Phone: [facility] 10-05-2023 13:37-0500 Body height 147.[address] Roma Grajeda Work Phone: [facility] 10-04-2023 14:31-0500 Body temperature 97.3 [degF] Dr. Roma Grajeda Work Phone: [facility] 10-04-2023 14:31-0500 Diastolic blood pressure 66 mm[Hg] Dr. Roma Grajeda Work Phone: [facility] 10-04-2023 14:31-0500 Heart rate 81 /min Dr. Roma Grajeda Work Phone: [facility] 10-04-2023 14:31-0500 Respiratory rate 18 /min Dr. Roma Grajeda Work Phone: [facility] 10-04-2023 14:31-0500 SaO2% (BldA) [Mass fraction] 96 % Dr. Roma Grajeda Work Phone: [facility] 10-04-2023 14:31-0500 Systolic blood pressure 132 mm[Hg] Dr. Roma Grajeda Work Phone: [facility] 10-04-2023 06:00-0500 Body mass index (BMI) [Ratio] 31 kg/m2 Dr. Roma Grajeda Work Phone: [facility] 10-04-2023 06:00-0500 Body weight 67.[address] Roma Grajeda Work Phone: [facility] 09-29-2023 01:09-0500 Body height 147.[address] Roma Grajeda Work Phone: [facility] 01-18-2023 20:25-0400 Body height 149.[address] Roma Grajeda Work Phone: [facility] 01-18-2023 20:25-0400 Body mass index (BMI) [Ratio] 28.8 kg/m2 Dr. Roma Grajeda Work Phone: [facility] 01-18-2023 20:25-0400 Body temperature 97.9 [degF] Dr. Roma Grajeda Work Phone: [facility] 01-18-2023 20:25-0400 Body weight 64.[address] Roma Grajeda Work Phone: [facility] 01-18-2023 20:25-0400 Diastolic blood pressure 68 mm[Hg] Dr. Roma Grajeda Work Phone: [facility] 01-18-2023 20:25-0400 Heart rate 78 /min Dr. Roma Grajeda Work Phone: [facility] 01-18-2023 20:25-0400 Respiratory rate 18 /min Dr. Roma Grajeda Work Phone: [facility] 01-18-2023 20:25-0400 SaO2% (BldA) [Mass fraction] 97 % Dr. Roma Grajeda Work Phone: [facility] 01-18-2023 20:25-0400 Systolic blood pressure 148 mm[Hg] Dr. Roma Grajeda Work Phone: [facility] 12-10-2022 10:21-0500 Body temperature 98.3 [degF] Dr. Roma Grajeda Work Phone: [facility] 12-10-2022 10:21-0500 Diastolic blood pressure 72 mm[Hg] Dr. Roma Grajeda Work Phone: [facility] 12-10-2022 10:21-0500 Heart rate 84 /min Dr. Roma Grajeda Work Phone: [facility] 12-10-2022 10:21-0500 Respiratory rate 18 /min Dr. Roma Grajeda Work Phone: [facility] 12-10-2022 10:21-0500 SaO2% (BldA) [Mass fraction] 98 % Dr. Roma Grajeda Work Phone: [facility] 12-10-2022 10:21-0500 Systolic blood pressure 151 mm[Hg] Dr. Roma Grajeda Work Phone: [facility] 12-08-2022 15:50-0500 Body height 147.[address] Roma Grajeda Work Phone: [facility] 12-08-2022 15:50-0500 Body weight 66.[address] Roma Grajeda Work Phone: [facility] 12-08-2022 10:51-0500 Body mass index (BMI) [Ratio] 30.5 kg/m2 Dr. Roma Grajeda Work Phone: [facility] 07-11-2017 15:20-0400 BMI (Body Mass Index) 29.28 kg/m2 Rupinder Zhu LPN [facility] Work Phone: 07-11-2017 15:20-0400 Body Temperature 99.2 [degF] Rupinder Zhu LPN [facility] Work Phone: 07-11-2017 15:20-0400 BP Diastolic 72 mm[Hg] Rupinder Zhu LPN [facility] Work Phone: 07-11-2017 15:20-0400 BP Systolic 128 mm[Hg] Rupinder Zhu LPN [facility] Work Phone: 07-11-2017 15:20-0400 Height 149.86 cm Rupinder Zhu LPN [facility] Work Phone: 07-11-2017 15:20-0400 Pulse (Heart Rate) 93 /min Rupinder Zhu LPN [facility] Work Phone: 07-11-2017 15:20-0400 Respiratory Rate 16 /min Rupinder Zhu LPN [facility] Work Phone: 07-11-2017 15:20-0400 Weight 65.77 kg Rupinder Zhu LPN [facility] Work Phone: 04-24-2016 12:15-0400 BSA (Body Surface Area) 1.58 m2 Rupinder Marko [employer] Work Phone: 04-12-2016 06:15-0400 Body surface area Derived from formula 45.73 mL/min Rupinder Marko [employer] Work Phone: Encounters Encounter Date Encounter Type Care Provider Facility Start: 06-24-2025 Evaluation and manag ement of inpatient Dr. Huma Khan MD [facility] Work Phone: Start: 06-24-[address] Roma Grajeda DO Work Phone: [facility] Start: 06-11-2025 End: 06-11-2025 Emergency department patient visit Dr. Roma Grajeda DO Work Phone: -Emergency Department Work Phone: Start: 04-07-2025 Non-patient / Non-visit Dr. Raphael Gutierrez MD -[facility] Work Phone: Start: 11-27-2024 End: 11-27-2024 ambulatory JAZMIN CHAVEZ Facility:[facility] Start: 11-27-2024 End: 11-27-2024 Patient encounter procedure Zane Sol MD Work Phone: Ophthalmology Comment on above: Peripheral exudative hemorrhagic chorioretinopathy (Primary Dx) Start: 11-22-2024 ambulatory Roma Grajeda Facility:[facility] Start: 11-22-2024 End: 11-24-2024 Evaluation and management of inpatient Joni Torres Facility:[facility] Start: 07-22-2024 ambulatory Saad Kim ity:[facility] Start: 07-04-2024 End: 07-07-2024 ambulatory [facility] Facility:[facility] Start: 07-01-2024 End: 07-01-2024 Emergency department patient visit Roma Grajeda Facility:[facility] Start: 01-31-2024 End: 01-31-2024 ambulatory [facility] Work Phone: Start: 01-31-2024 End: 01-31-2024 Patient encounter procedure [facility] Work Phone: Start: 01-31-2024 End: 01-31-2024 ambulatory [facility] Work Phone: Start: 01-31-2024 End: 01-31-2024 Patient encounter procedure [facility] [place] Work Phone: Start: 10-04-2023 End: 10-12-2023 Evaluation and management of inpatient Dr. Roma Grajeda Work Phone: [facility] Start: 10-04-2023 Non-patient / Non-visit Dr. Ursula Grajeda Work Phone: [facility] Work Phone: Start: 10-03-2023 Non-patient / Non-visit Dr. Ursula Grajeda Work Phone: [facility] Work Phone: Start: 10-02-2023 Non-patient / Non-visit Dr. Ursula Grajeda Work Phone: [facility] Work Phone: Start: 10-01-2023 Non-patient / Non-visit Dr. Ursula Grajeda Work Phone: [facility] Work Phone: Start: 09-30-2023 Non-patient / Non-visit Dr. Ursula Grajeda Work Phone: [facility] Work Phone: Start: 09-29-2023 Non-patient / Non-visit Dr. Ursula Grajeda Work Phone: [facility] Work Phone: Start: 09-28-2023 End: 10-04-2023 Evaluation and management of inpatient [facility] Work Phone: Start: 09-28-2023 End: 10-04-[address] Roma Grajeda Work Phone: [facility] Work Phone: Start: 09-24-2023 End: 09-24-2023 ambulatory [facility] Work Phone: Start: 09-24-2023 End: 09-24-2023 Patient encounter procedure [facility] Start: 07-26-2023 End: 07-26-2023 ambulatory [facility] Work Phone: Start: 07-26-2023 End: 07-26-2023 Patient encounter procedure [facility] [place] Work Phone: Start: 07-13-2023 End: 07-13-2023 ambulatory [facility] Work Phone: Start: 07-13-2023 End: 07-13-2023 [facility] Work [facility] Start: 05-28-2023 End: 05-28-2023 ambulatory [facility] Work Phone: Start: 05-28-2023 End: 05-28-2023 [facility] Work [facility] Start: 02-05-2023 End: 02-05-[address] Roma Grajeda Work Phone: [facility] Work Phone: Start: 02-05-2023 End: 02-05-[address] [facility] Start: 01-18-2023 End: 01-18-2023 Emergency department patient visit Dr. Roma Grajeda Work Phone: [facility] Start: 12-14-2022 End: 12-14-[address] Roma Grajeda Work Phone: [facility] Work Phone: Start: 12-14-2022 End: 12-14-[address] Roma Grajeda Work Phone: [facility] [place] [facility] Start: 12-10-2022 Non-patient / Non-visit Dr. Ursula Grajeda Work Phone: [facility] Start: 12-09-2022 End: 12-10-2022 Evaluation and management of inpatient Dr. Roma Grajeda Work Phone: [facility] Start: 12-09-2022 Non-patient / Non-visit Dr. Ursula Grajeda Work Phone: [facility] Start: 12-08-2022 Non-patient / Non-visit Dr. Ursula Grajeda Work Phone: [facility] Start: 08-14-2022 End: 08-14-2022 ambulatory [facility] Work Phone: Start: 08-14-2022 End: 08-14-2022 Patient encounter procedure [facility] Start: 07-31-2022 End: 07-31-2022 ambulatory [facility] Work Phone: Start: 07-31-2022 End: 07-31-2022 Patient encounter procedure [facility] [place] [facility] Start: 07-04-2022 End: 07-04-2022 ambulatory [facility] Work Phone: Start: 07-04-2022 End: 07-04-2022 [facility] Start: 01-02-2022 End: 01-02-2022 Patient encounter procedure [facility] Start: 12-22-2021 End: 12-22-2021 [facility] Start: 10-10-2021 End: 10-10-2021 Patient encounter procedure [facility] [place] Procedures Date Procedure Procedure Detail Performing Clinician Start: 06-24-2025 Urnls dip stick/tablet reagent auto microscopy Dr. Roma Grajeda DO Work Phone: Start: 06-24-[address] Roma Grajeda DO Work Phone: Start: 06-11-2025 Plain x-ray of pelvis and lower extremity Dr. Roma Grajeda DO Work Phone: Start: 11-27-2024 Oph us dx b-scan&magdalena a-scan sm pt enctr Gloria Dumont MD Work Phone: Start: 11-27-2024 End: 11-27-2024 Computerized ophthalmic imaging retina Gloria Dumont MD Work Phone: Start: 01-31-2024 Urine culture Start: 10-12-[address] Roma Grajeda Work Phone: Start: 09-28-2023 Plain chest X-ray Dr. Roma Grajeda Work Phone: Start: 09-28-2023 CT cervical spine without contrast Dr. Roma Grajeda Work Phone: Start: 09-28-2023 CT of head without contrast Dr. Roma Grajeda Work Phone: Start: 09-24-2023 Urine culture Start: 07-26-2023 X-ray of cervical spine Start: 07-13-2023 Urine culture Start: 05-28-2023 Urine culture Start: 02-05-2023 Urine culture Start: 12-08-2022 CT of head without contrast Dr. Roma Grajeda Work Phone: Start: 12-08-2022 Plain chest X-ray Dr. Roma Grajeda Work Phone: Start: 07-04-2022 Radiography of thoracic spine Start: 07-04-2022 X-ray of lumbar spine, two or three views Start: 12-22-2021 Urine culture Start: 07-11-2017 End: 07-11-2017 Smpl repair scalp/neck/ax/genit/trunk 2.6-7.5cm Barrie Machuca PA Work Phone: Start: 03-23-2016 End: 03-23-2016 Urinalysis Rupinder Staplesale CLAY Start: 12-14-2015 End: 12-14-2015 *CBC with Differential Roma A Malys, DO Work Phone: Start: 12-10-2015 End: 12-10-2015 Urinalysis Rupinder Staplesale CLAY Start: 10-15-2015 Therapeutic drug monitoring assay Encounter for therapeutic drug monitoring Rupinder Marko CLAY Start: 04-12-2015 End: 04-12-2015 *CBC with Differential [...] Phone: Start: 03-10-2015 End: 03-10-2015 Urinalysis Rupinder Staplesale CLAY Start: 02-03-2015 Screening for malignant neoplasm of [...] End: 12-10-2014 Kenalog per 10 mg Roma Grajeda DO Work Phone: Start: 05-21-2014 End: 12-10-2014 Urnls dip stick/tablet rgnt non-auto w/o micrscp Roma Grajeda DO Work Phone: Start: 05-04-2014 End: 05-08-2014 *CBC with Differential Roma Grajeda DO Work Phone: Start: 05-04-2014 End: 12-10-2014 Follow Up Appt 3 months Roma Grajeda DO Work Phone: Measurement of occul t blood in stool specimen using immunoassay Dr. Roma Grajeda Work Phone: Urine culture Urine culture Dr. Roma Grajeda Work Phone: Urine culture Dr. Roma Grajeda Work Phone: Urine culture Dr. Roma Grajeda Work Phone: Plan of Treatment Date Care Activity Detail Author Start: 07-11-2027 Urine microalbumin profile DTaP,Tdap,Td Vaccine (2 - Td or Tdap) [facility] Start: 06-25-2025 Thyroid stimulating hormone measurement [facility] Start: 06-24-2025 Assessment of risk of venous thromboembolism [facility] Start: 06-24-2025 Inhalation therapy procedure [facility] Start: 06-24-2025 Insertion of catheter into peripheral vein [facility] Start: 06-24-2025 Measuring intake and output [facility] Start: 06-24-2025 Providing care according to standard [facility] Start: 06-24-2025 Provision of activity privileges [facility] Start: 06-24-2025 Referral for physical therapy [facility] Start: 06-24-2025 Referral to occupational therapist [facility] Start: 06-24-2025 Referral to service [facility] Start: 06-24-2025 [facility] Start: 06-24-2025 Verification routine [facility] Start: 06-24-2025 Admission procedure [facility] Start: 06-24-2025 Bacteria identified in Urine by Culture Urine Culture [facility] Start: 06-24-2025 [facility] Start: 06-11-2025 [facility] Start: 10-08-2024 Advance Directive Discussion Advance Directive Discussion [facility] Start: 06-08-2024 Covid-19 Vaccine () Covid-19 Vaccine () [facility] Start: 10-12-2023 Patient discharge [facility] Start: 10-11-2023 Development of care plan [facility] Start: 10-09-2023 Referral to service [facility] Start: 10-06-2023 [facility] Start: 10-05-2023 Developing a treatment plan [facility] Start: 10-05-2023 Development of care plan [facility] Start: 10-04-2023 [facility] Start: 10-04-2023 Recommendation to continue with treatment [facility] Start: 10-04-2023 Following clinical pathway protocol [facility] Start: 10-04-2023 Admission procedure [facility] Start: 10-04-2023 Measuring intake and output [facility] Start: 10-04-2023 Patient referral to dietitian [facility] Start: 10-04-2023 Referral to occupational therapist [facility] Start: 10-04-2023 Referral to service [facility] Start: 10-04-2023 Vital signs measurements [facility] Start: 10-04-2023 End: 10-04-2023 [facility] Start: 10-04-2023 Patient discharge [facility] Start: 09-29-2023 Following clinical pathway protocol [facility] Start: 09-29-2023 Assessment of risk of venous thromboembolism [facility] Start: 09-29-2023 Inhalation therapy procedure [facility] Start: 09-29-2023 Insertion of catheter into peripheral vein [facility] Start: 09-29-2023 Measuring intake and output [facility] Start: 09-29-2023 Providing care according to standard [facility] Start: 09-29-2023 Provision of activity privileges [facility] Start: 09-29-2023 Referral to occupational therapist [facility] Start: 09-29-2023 Referral to service [facility] Start: 09-29-2023 [facility] Start: 09-28-2023 End: 09-28-2023 Admission procedure [facility] Start: 12-11-2022 Blood chemistry [facility] Start: 12-10-2022 Patient discharge [facility] Start: 12-09-2022 Admission procedure [facility] Start: 12-08-2022 Application of intermittent pneumatic compression device [facility] Start: 12-08-2022 Assessment of risk of venous thromboembolism [facility] Start: 12-08-2022 Incentive spirometry [facility] Start: 12-08-2022 Insertion of catheter into peripheral vein [facility] Start: 12-08-2022 Measuring intake and output [facility] Start: 12-08-2022 Providing care according to standard [facility] Start: 12-08-2022 Provision of activity privileges [facility] Start: 12-08-2022 Referral to occupational therapist [facility] Start: 12-08-2022 Referral to service [facility] Start: 12-08-2022 [facility] Start: 12-08-2022 Following clinical pathway protocol [facility] Start: 12-08-2022 Verification routine [facility] Start: 12-08-2022 Admission procedure [facility] Start: 12-08-2022 [facility] Start: 12-08-2022 Patient referral to dietitian [facility] Start: 07-11-2017 End: 07-11-2017 Appointment Appointment [facility] Work Phone: Start: 12-14-2015 End: 12-14-2015 *CBC with Differential *CBC with Differential [facility] Work Phone: Start: 10-15-2015 End: 10-15-2015 *CBC with Differential *CBC with Differential [facility] Work Phone: Start: 10-15-2015 End: 10-15-2015 *CMP Complete Metabolic Panel *CMP Complete Metabolic Panel [facility] Work Phone: Start: 04-12-2015 End: 04-12-2015 *CBC with Differential *CBC with Differential [facility] Work Phone: Start: 04-12-2015 End: 04-13-2015 *CMP Complete Metabolic Panel *CMP Complete Metabolic Panel [facility] Work Phone: Start: 04-12-2015 End: 04-12-2015 25-Hydroxyvitamin D2+25-Hydroxyvitamin D3 mass conc *Vitamin D (Calciferol) [facility] Work Phone: Start: 04-12-2015 End: 04-13-2015 Iron mass conc *Iron [facility] Work Phone: Start: 04-12-2015 End: 04-13-2015 Thyrotropin Qn *TSH [facility] Work Phone: Start: 03-10-2015 End: 03-10-2015 Bacteria identified Cx Nom (U) *CUUR - Culture, Urine ([place] Count) [facility] Work Phone: Start: 03-10-2015 End: 03-29-2015 Urology Referral [facility] Work Phone: Start: 02-03-2015 End: 02-03-2015 Mammogram, Screening, both breasts Mammogram, Screening, both breasts [facility] Work Phone: Start: 12-22-2014 End: 12-23-2014 Gastroenterology Referral Gastroenterology Referral Baodonald Bridgesmarj, [address], [address], [place], [address] [facility] Work Phone: Start: 12-07-2014 End: 12-09-2014 *B12FO Vitamin B12 and Folates *B12FO Vitamin B12 and Folates [facility] Work Phone: Start: 12-07-2014 End: 12-10-2014 *CBC with Differential *CBC with Differential [facility] Work Phone: Start: 12-07-2014 End: 12-09-2014 *CMP Complete Metabolic Panel *CMP Complete Metabolic Panel [facility] Work Phone: Start: 12-07-2014 End: 12-09-2014 Ferritin mass conc *Ferritin [facility] Work Phone: Start: 12-07-2014 End: 12-09-2014 Iron and Iron binding capacity panel - Serum or Plasma *IBC Iron & Total Iron Binding Capacity [facility] Work Phone: Start: 12-07-2014 End: 12-09-2014 Lipid 1996 panel *Lipid Profile [facility] Work Phone: Start: 12-07-2014 End: 12-09-2014 Thyrotropin Qn *TSH [facility] Work Phone: Start: 11-15-2014 Diabetes Screening Diabetes Screening [facility] Start: 08-17-2014 End: 12-10-2014 Bacteria identified Cx Nom (U) *CUUR - Culture, Urine ([place] Count) [facility] Work Phone: Start: 08-17-2014 End: 12-10-2014 Urnls dip stick/tablet rgnt non-auto w/o micrscp UA Dipstick (Office) [facility] Work Phone: Start: 07-28-2014 End: 12-10-2014 *CUUID - Urine CAMRON Culture - Identificatn *CUUID - Urine CAMRON Culture - Identificatn [facility] Work Phone: Start: 07-28-2014 End: 12-10-2014 Follow-up visit Follow Up as needed [facility] Work Phone: Start: 07-28-2014 End: 07-29-2014 Urinalysis complete panel - Urine *UAC- Urinalysis, Complete w/ Micro [facility] Work Phone: Start: 07-28-2014 End: 12-10-2014 Urnls dip stick/tablet rgnt non-auto w/o micrscp UA Dipstick (Office) [facility] Work Phone: Start: 05-21-2014 End: 12-10-2014 *CUUID - Urine CAMRON Culture - Identificatn *CUUID - Urine CAM[place] Culture - Identificatn [facility] Work Phone: Start: 05-21-2014 End: 12-10-2014 Arthrocentesis aspir&/inj major jt/bursa w/o us Injection, Joint (major) [facility] Work Phone: Start: 05-21-2014 End: 12-10-2014 Dermatology Referral Dermatology Referral Marylin Camacho, [address] [place], [address] [facility] Work Phone: Start: 05-21-2014 End: 12-10-2014 Triamcinolone acet inj NOS Kenalog per 10 mg [facility] Work Phone: Start: 05-21-2014 End: 12-10-2014 Urnls dip stick/tablet rgnt non-auto w/o micrscp UA Dipstick (Office) [facility] Work Phone: Start: 05-04-2014 End: 05-08-2014 *CBC with Differential *CBC with Differential [facility] Work Phone: Start: 05-04-2014 End: 12-10-2014 Follow Up Appt 3 months Follow Up Appt 3 months [facility] Work Phone: Start: 2001 Screening for osteoporosis Bone Density Screening [facility] Start: 1986 Pneumococcal Vaccine: 50+ (1 of 1 - PCV) Pneumococcal Vaccine: 50+ (1 of 1 - PCV) [facility] Start: 1986 Shingrix Vaccine (1 of 2) Shingrix Vaccine (1 of 2) [facility] Start: 1954 Anxiety Screening Anxiety Screening [facility] Start: 1954 Depression Screening Depression Screening [facility] Anion gap in Serum o r Plasma [facility] BUN/Creatinine ratio [facility] Calcium [Mass/volume ] in Serum or Plasma [facility] Carbon dioxide, tota l [Moles/volume] in Central venous blood [facility] Creatinine [Mass/vol ume] in Serum or Plasma [facility] Erythrocyte mean corpuscular volume determination [facility] Glucose [Mass/volume ] in Serum or Plasma [facility] Hematocrit [Volume Fraction] of Blood [facility] Hemoglobin [Mass/vol ume] in Blood [facility] Leukocytes [#/volume ] in Blood [facility] Magnesium measurement [facility] Mean corpuscular hemoglobin concentration determination [facility] Mean corpuscular hemoglobin determination [facility] Measurement of renal function [facility] Neutrophil count [facility] Neutrophil percent differential count [facility] Patient Education [facility] Work Phone: Patient referral [facility] Work Phone: Platelets [#/volume] in Blood [facility] Potassium measurement [facility] Red blood cell count [facility] Red cell distributio n width determination [facility] Serum chloride measurement [facility] Sodium measurement [facility] Urea nitrogen [Mass/volume] in Serum or Plasma [facility] Urine culture Urine Culture [facility] Urine culture [facility] Immunizations Immunization Date Immunization Notes Care Provider [facility] 06-17-2024 Influenza High-Dose Quadrivalent Dr. Roma Grajeda DO Work Phone: [facility] 10-10-2023 Covid (Spikevax) Dr. Roma her Work Phone: [facility] 07-04-2023 influenza, injectabl e, quadrivalent, preservative free Dr. Roma Grajeda Work Phone: [facility] 06-13-2023 Influenza High-Dose Quadrivalent Dr. Roma Grajeda Work Phone: [facility] 06-13-2023 RSV Adult Recombinan t (Arexvy) Dr. Roma Grajeda Work Phone: [facility] 07-23-2022 Covid Pfizer Bivalen t Booster Dr. Roma Grajeda Work Phone: [facility] 07-23-2022 Influenza High-Dose Quadrivalent Dr. Roma Grajeda Work Phone: [facility] 07-08-2022 influenza, injectabl e, quadrivalent, preservative free [facility] 07-08-2022 influenza, seasonal, injectable Dr. Roma Grajeda Work Phone: [facility] 08-11-2021 Covid (Moderna) Dr. Roma wadsworth Work Phone: [facility] 11-26-2020 Covid (Moderna) [facility] 10-29-2020 Covid (Moderna) [facility] 07-17-2020 influenza, injectabl e, quadrivalent, preservative free [facility] 07-17-2020 influenza, seasonal, injectable [facility] 07-21-2019 Influenza, high dose seasonal Dr. Roma Grajeda DO Work Phone: [facility] 07-21-2019 influenza, high dose seasonal, preservative-free Dr. Roma Grajeda Work Phone: [facility] 07-08-2018 Influenza, high dose seasonal Dr. Roma Grajeda DO Work Phone: [facility] 07-08-2018 influenza, high dose seasonal, preservative-free Dr. Roma Grajeda Work Phone: [facility] 07-11-2017 tetanus toxoid, redu erika diphtheria toxoid, and acellular pertussis vaccine, adsorbed Rupinder Zhu LPN [facility] Work Phone: 07-11-2017 [id number] Rupinder Zhu LPN [facility] Work Phone: 07-03-2017 Influenza, high dose seasonal Dr. Roma Grajeda DO Work Phone: [facility] 07-03-2017 influenza, high dose seasonal, preservative-free Dr. Roma Grajeda Work Phone: [facility] 06-25-2017 Influenza virus vaccine [facility] 07-08-2016 Influenza virus vaccine [facility] 06-19-2016 Influenza, high dose seasonal Dr. Roma Grajeda DO Work Phone: [facility] 06-19-2016 influenza, high dose seasonal, preservative-free Dr. Roma Grajeda Work Phone: [facility] 06-15-2015 Influenza virus vaccine [facility] Payers Date Payer Category Payer Self-pay [id number] 2017 Medicare (Managed Care) MMO [employer] PPO Member Subscriber Plan / Payer (Effective 2017-Present) Name: Marli Rosales Relation to Subscriber: Self Name: Marli Rosales Payer ID: Not on file Type: PPO Address: [place] [id number] [id number] 2015 Medicare [id number] Medicare [id number] Unknown [id number] Unknown [id number] Unknown [id number] Unknown [id number] Unknown [id number] Unknown [id number] Unknown [id number] Unknown [id number] Unknown [id number] Unknown [id number] Unknown [id number] Social History Date Type Detail Facility Start: 08-27-2021 End: 10-04-2023 Tobacco smoking status NHIS Unknown if ever smoked [facility] Start: 11-22-2020 None [facility] Start: 01-30-2021 Spouse/ Signif icant Other [facility] Start: 11-22-2020 Non-smoker [facility] Start: 1935 Sex Assigned At Female [facility] Start: 03-14-2019 End: 06-24-2025 Tobacco smoking status SDIS Never smoked tobacco [facility] Start: 03-14-2019 Tobacco use and exposure Smokeless tobacco non-user [facility] Start: 11-27-2024 Alcoholic beverage intake Current drinker of alcohol (finding) [facility] Start: 09-14-2020 End: 11-27-2024 History of Social function [facility] Start: 09-14-2020 End: 11-27-2024 Tobacco use panel [facility] Adult Depression Screening Assessment 0 [facility] Start: 03-22-2010 Alcohol Comment occ [facility] Start: 1935 Sex assigned at Not on file C [facility] Medical Equipment Procedure Code Equipment Code Equipment Original Text Equipment Identifier Dates Insertion, spinal cord stimulator, permanent ADAPTIVE STIM FDA Start: 04-25-2021 Insertion, spinal cord stimulator, permanent LEAD KIT FDA Start: 04-25-2021 Insertion, spinal cord stimulator, permanent LEAD KIT FDA Start: 04-25-2021 Insertion, spinal cord stimulator, permanent ADAPTIVE STIM FDA Start: 04-25-2021 Insertion, spinal cord stimulator, permanent LEAD KIT FDA Start: 04-25-2021 Insertion, spinal cord stimulator, permanent LEAD KIT FDA Start: 04-25-2021 Insertion, spinal cord stimulator, permanent ADAPTIVE STIM FDA Start: 04-25-2021 Insertion, spinal cord stimulator, permanent LEAD KIT FDA Start: 04-25-2021 Insertion, spinal cord stimulator, permanent LEAD KIT FDA Start: 04-25-2021 Insertion, spinal cord stimulator, permanent ADAPTIVE STIM FDA Start: 04-25-2021 Insertion, spinal cord stimulator, permanent LEAD KIT FDA Start: 04-25-2021 Insertion, spinal cord stimulator, permanent LEAD KIT FDA Start: 04-25-2021 Insertion, spinal cord stimulator, permanent ADAPTIVE STIM FDA Start: 04-25-2021 Insertion, spinal cord stimulator, permanent LEAD KIT FDA Start: 04-25-2021 Insertion, spinal cord stimulator, permanent LEAD KIT FDA Start: 04-25-2021 Insertion, spinal cord stimulator, permanent ADAPTIVE STIM FDA Start: 04-25-2021 Insertion, spinal cord stimulator, permanent LEAD KIT FDA Start: 04-25-2021 Insertion, spinal cord stimulator, permanent LEAD KIT FDA Start: 04-25-2021 Insertion, spinal cord stimulator, permanent ADAPTIVE STIM FDA Start: 04-25-2021 Insertion, spinal cord stimulator, permanent LEAD KIT FDA Start: 04-25-2021 Insertion, spinal cord stimulator, permanent LEAD KIT FDA Start: 04-25-2021 Insertion, spinal cord stimulator, permanent ADAPTIVE STIM FDA Start: 04-25-2021 Insertion, spinal cord stimulator, permanent LEAD KIT FDA Start: 04-25-2021 Insertion, spinal cord stimulator, permanent LEAD KIT FDA Start: 04-25-2021 Insertion, spinal cord stimulator, permanent ADAPTIVE STIM FDA Start: 04-25-2021 Insertion, spinal cord stimulator, permanent LEAD KIT FDA Start: 04-25-2021 Insertion, spinal cord stimulator, permanent LEAD KIT FDA Start: 04-25-2021 Insertion, spinal cord stimulator, permanent ADAPTIVE STIM FDA Start: 04-25-2021 Insertion, spinal cord stimulator, permanent LEAD KIT FDA Start: 04-25-2021 Insertion, spinal cord stimulator, permanent LEAD KIT FDA Start: 04-25-2021 Insertion, spinal cord stimulator, permanent ADAPTIVE STIM FDA Start: 04-25-2021 Insertion, spinal cord stimulator, permanent LEAD KIT FDA Start: 04-25-2021 Insertion, spinal cord stimulator, permanent LEAD KIT FDA Start: 04-25-2021 Insertion, spinal cord stimulator, permanent ADAPTIVE STIM FDA Start: 04-25-2021 Insertion, spinal cord stimulator, permanent LEAD KIT FDA Start: 04-25-2021 Insertion, spinal cord stimulator, permanent LEAD KIT FDA Start: 04-25-2021 Insertion, spinal cord stimulator, permanent ADAPTIVE STIM FDA Start: 04-25-2021 Insertion, spinal cord stimulator, permanent LEAD KIT FDA Start: 04-25-2021 Insertion, spinal cord stimulator, permanent LEAD KIT FDA Start: 04-25-2021 Insertion, spinal cord stimulator, permanent ADAPTIVE STIM FDA Start: 04-25-2021 Insertion, spinal cord stimulator, permanent LEAD KIT FDA Start: 04-25-2021 Insertion, spinal cord stimulator, permanent LEAD KIT FDA Start: 04-25-2021 Insertion, spinal cord stimulator, permanent ADAPTIVE STIM FDA Start: 04-25-2021 Insertion, spinal cord stimulator, permanent LEAD KIT FDA Start: 04-25-2021 Insertion, spinal cord stimulator, permanent LEAD KIT FDA Start: 04-25-2021 Insertion, spinal cord stimulator, permanent ADAPTIVE STIM FDA Start: 04-25-2021 Insertion, spinal cord stimulator, permanent LEAD KIT FDA Start: 04-25-2021 Insertion, spinal cord stimulator, permanent LEAD KIT FDA Start: 04-25-2021 Insertion, spinal cord stimulator, permanent ADAPTIVE STIM FDA Start: 04-25-2021 Insertion, spinal cord stimulator, permanent LEAD KIT FDA Start: 04-25-2021 Insertion, spinal cord stimulator, permanent LEAD KIT FDA Start: 04-25-2021 Insertion, spinal cord stimulator, permanent ADAPTIVE STIM FDA Start: 04-25-2021 Insertion, spinal cord stimulator, permanent LEAD KIT FDA Start: 04-25-2021 Insertion, spinal cord stimulator, permanent LEAD KIT FDA Start: 04-25-2021 Insertion, spinal cord stimulator, permanent ADAPTIVE STIM FDA Start: 04-25-2021 Insertion, spinal cord stimulator, permanent LEAD KIT FDA Start: 04-25-2021 Insertion, spinal cord stimulator, permanent LEAD KIT FDA Start: 04-25-2021 AUTOTRANSFUSION CHARGES FDA S tart: 11-07-2017 LFIT V40 FEMORAL HEAD FDA Sta rt: 11-07-2017 MDM CEMENTLESS LINER FDA Star t: 11-07-2017 MDM X3 INSERT FO R MDM LINER FDA Start: 11-07-2017 TRIDENT INDER ACETABUILAR SHELL FDA Start: 11-07-2017 AUTOTRANSFUSION CHARGES FDA S tart: 11-07-2017 LFIT V40 FEMORAL HEAD FDA Sta rt: 11-07-2017 MDM CEMENTLESS LINER FDA Star t: 11-07-2017 MDM X3 INSERT FO R MDM LINER FDA Start: 11-07-2017 TRIDENT INDER ACETABUILAR SHELL FDA Start: 11-07-2017 AUTOTRANSFUSION CHARGES FDA S tart: 11-07-2017 LFIT V40 FEMORAL HEAD FDA Sta rt: 11-07-2017 MDM CEMENTLESS LINER FDA Star t: 11-07-2017 MDM X3 INSERT FO R MDM LINER FDA Start: 11-07-2017 TRIDENT INDER ACETABUILAR SHELL FDA Start: 11-07-2017 AUTOTRANSFUSION CHARGES FDA S tart: 11-07-2017 LFIT V40 FEMORAL HEAD FDA Sta rt: 11-07-2017 MDM CEMENTLESS LINER FDA Star t: 11-07-2017 MDM X3 INSERT FO R MDM LINER FDA Start: 11-07-2017 TRIDENT INDER ACETABUILAR SHELL FDA Start: 11-07-2017 AUTOTRANSFUSION CHARGES FDA S tart: 11-07-2017 LFIT V40 FEMORAL HEAD FDA Sta rt: 11-07-2017 MDM CEMENTLESS LINER FDA Star t: 11-07-2017 MDM X3 INSERT FO R MDM LINER FDA Start: 11-07-2017 TRIDENT INDER ACETABUILAR SHELL FDA Start: 11-07-2017 AUTOTRANSFUSION CHARGES FDA S tart: 11-07-2017 LFIT V40 FEMORAL HEAD FDA Sta rt: 11-07-2017 MDM CEMENTLESS LINER FDA Star t: 11-07-2017 MDM X3 INSERT FO R MDM LINER FDA Start: 11-07-2017 TRIDENT INDER ACETABUILAR SHELL FDA Start: 11-07-2017 AUTOTRANSFUSION CHARGES FDA S tart: 11-07-2017 LFIT V40 FEMORAL HEAD FDA Sta rt: 11-07-2017 MDM CEMENTLESS LINER FDA Star t: 11-07-2017 MDM X3 INSERT FO R MDM LINER FDA Start: 11-07-2017 TRIDENT INDER ACETABUILAR SHELL FDA Start: 11-07-2017 AUTOTRANSFUSION CHARGES FDA S tart: 11-07-2017 LFIT V40 FEMORAL HEAD FDA Sta rt: 11-07-2017 MDM CEMENTLESS LINER FDA Star t: 11-07-2017 MDM X3 INSERT FO R MDM LINER FDA Start: 11-07-2017 TRIDENT INDER ACETABUILAR SHELL FDA Start: 11-07-2017 AUTOTRANSFUSION CHARGES FDA S tart: 11-07-2017 LFIT V40 FEMORAL HEAD FDA Sta rt: 11-07-2017 MDM CEMENTLESS LINER FDA Star t: 11-07-2017 MDM X3 INSERT FO R MDM LINER FDA Start: 11-07-2017 TRIDENT INDER ACETABUILAR SHELL FDA Start: 11-07-2017 AUTOTRANSFUSION CHARGES FDA S tart: 11-07-2017 LFIT V40 FEMORAL HEAD FDA Sta rt: 11-07-2017 MDM CEMENTLESS LINER FDA Star t: 11-07-2017 MDM X3 INSERT FO R MDM LINER FDA Start: 11-07-2017 TRIDENT INDER ACETABUILAR SHELL FDA Start: 11-07-2017 AUTOTRANSFUSION CHARGES FDA S tart: 11-07-2017 LFIT V40 FEMORAL HEAD FDA Sta rt: 11-07-2017 MDM CEMENTLESS LINER FDA Star t: 11-07-2017 MDM X3 INSERT FO R MDM LINER FDA Start: 11-07-2017 TRIDENT INDER ACETABUILAR SHELL FDA Start: 11-07-2017 AUTOTRANSFUSION CHARGES FDA S tart: 11-07-2017 LFIT V40 FEMORAL HEAD FDA Sta rt: 11-07-2017 MDM CEMENTLESS LINER FDA Star t: 11-07-2017 MDM X3 INSERT FO R MDM LINER FDA Start: 11-07-2017 TRIDENT INDER ACETABUILAR SHELL FDA Start: 11-07-2017 AUTOTRANSFUSION CHARGES FDA S tart: 11-07-2017 LFIT V40 FEMORAL HEAD FDA Sta rt: 11-07-2017 MDM CEMENTLESS LINER FDA Star t: 11-07-2017 MDM X3 INSERT FO R MDM LINER FDA Start: 11-07-2017 TRIDENT INDER ACETABUILAR SHELL FDA Start: 11-07-2017 AUTOTRANSFUSION CHARGES FDA S tart: 11-07-2017 LFIT V40 FEMORAL HEAD FDA Sta rt: 11-07-2017 MDM CEMENTLESS LINER FDA Star t: 11-07-2017 MDM X3 INSERT FO R MDM LINER FDA Start: 11-07-2017 TRIDENT INDER ACETABUILAR SHELL FDA Start: 11-07-2017 AUTOTRANSFUSION CHARGES FDA S tart: 11-07-2017 LFIT V40 FEMORAL HEAD FDA Sta rt: 11-07-2017 MDM CEMENTLESS LINER FDA Star t: 11-07-2017 MDM X3 INSERT FO R MDM LINER FDA Start: 11-07-2017 TRIDENT INDER ACETABUILAR SHELL FDA Start: 11-07-2017 AUTOTRANSFUSION CHARGES FDA S tart: 11-07-2017 LFIT V40 FEMORAL HEAD FDA Sta rt: 11-07-2017 MDM CEMENTLESS LINER FDA Star t: 11-07-2017 MDM X3 INSERT FO R MDM LINER FDA Start: 11-07-2017 TRIDENT INDER ACETABUILAR SHELL FDA Start: 11-07-2017 AUTOTRANSFUSION CHARGES FDA S tart: 11-07-2017 LFIT V40 FEMORAL HEAD FDA Sta rt: 11-07-2017 MDM CEMENTLESS LINER FDA Star t: 11-07-2017 MDM X3 INSERT FO R MDM LINER FDA Start: 11-07-2017 TRIDENT INDER ACETABUILAR SHELL FDA Start: 11-07-2017 AUTOTRANSFUSION CHARGES FDA S tart: 11-07-2017 LFIT V40 FEMORAL HEAD FDA Sta rt: 11-07-2017 MDM CEMENTLESS LINER FDA Star t: 11-07-2017 MDM X3 INSERT FO R MDM LINER FDA Start: 11-07-2017 TRIDENT INDER ACETABUILAR SHELL FDA Start: 11-07-2017 AUTOTRANSFUSION CHARGES FDA S tart: 11-07-2017 LFIT V40 FEMORAL HEAD FDA Sta rt: 11-07-2017 MDM CEMENTLESS LINER FDA Star t: 11-07-2017 MDM X3 INSERT FO R MDM LINER FDA Start: 11-07-2017 TRIDENT INDER ACETABUILAR SHELL FDA Start: 11-07-2017 Goals Date Patient Goal Desired Activity /State Functional Status Date Assessment Result Facility 10-12-2023 Functional status Ambulates;Up ad quinton [facility] Work Phone: 10-04-2023 Functional status Ambulates [facility] Work Phone: 12-10-2022 Functional status Ambulates [facility] Work Phone: Mental Status Date Assessment Result Facility 06-24-2025 Cognitive function Level Of Consciousness Awake [facility] Work Phone: 10-12-2023 Cognitive function Voice/Name [facility] Work Phone: 10-04-2023 Cognitive function Voice/Name [facility] Work Phone: 12-10-2022 Cognitive function Voice/Name [facility] Work Phone: Clinical Notes 12-08-2022 to 06-24-2025 Note Date & Type Note Facility 06-24-2025 History and physi tracie note [facility] 06-11-2025 Discharge summary [facility] 06-11-2025 Radiology Diagnostic study note [facility] Imaging Services [address] [place] [address] HIP, UNI W/ Pelvis 2-3 Views MR#: [id number] Acct: [id number] Name: MARLI ROSALES Rep #: [id number] : 1935 F 89 From: Iam Jim MD PCP: Dr. Roma Grajeda DO Status: PRE ER Study:HIP, UNI W/ Pelvis 2-3 Views Date of Ex am: 06/11/25 Exam# [id number] Ordering Dr: John Sullivan MD PROCEDURE: HIP, UNI W/ PELVIS 2-3 VIEWS 06/11/2025 REASON FOR EXAM: HIP PAIN TECHNIQUE: Procedure Code: RAD Modality: DX Procedure: HIP, UNI W/ PELVIS 2-3 VIEWS Laterality: Right COMPARISON: None FINDINGS: Osseous: There is a right total hip replacement with a cemented femoral stem and noncemented acetabular cup appearing to be in anatomic alignment. No evidence of component loosening. The femoral head is centered to the acetabular cup without evidence of asymmetric liner wear. Partially visualized is a distal femoral metallic component and associated intramedullary cement extending below the level of this exam. Incompletely visualized is spinal fixation hardware extending above the level ofthis exam. No radiographic evidence of an acute displaced fracture is seen. No bone lesion or periosteal reaction is seen. If there is suspicion for infection in this patient, consider nuclear medicine white blood cell scan. Soft tissues: Soft tissue injury is not reliably assessed by this technique. RAD/HIP, UNI W/ Pelvis 2-3 Views IMPRESSION: No radiographic evidence of an acute osseous abnormality. - Findings and recommendations discussed above. Reading Location: [id number] CC: Dr. Myrtle Sullivan MD; Dr. Roma Grajeda DO ~ Draw String Knotter: Signed [facility] 06-11-2025 Discharge summary Note Date/Time June 11, 2025 5:15pm [facility] Medical Records Department [address] [place] [address] Emergency Department Summary 06/11/25 MR#: [id number] Acct: [id number] Name: MARLI ROSALES Rep #:[id number] : 1935 89 From: Myrtle Sullivan MD PCP: Dr. Roma Grajeda DO Status:REG ER Location: ED HPI History of Present Illness Chief Complaint: Lower Extremity Injury Narrative Narrative: Patient is a 89-year-old female presenting to the emergency department for righthip pain. Patient has past medical history as below including osteoarthritis ofher right hip, low back pain and a prior right hip fracture with surgical repair. Patient states that for the past 5 days she has had pain in her right hip. She has been on ciprofloxacin for UTI and has finished this prescription. She thinks that the ciprofloxacin caused her scar tissue to act up in her right hip. She denies any fever or chills. She ambulates with a rollator. Denies any pain that radiates down her leg. Denies any weakness or numbness in her right leg. Denies any new back pain from baseline. Has been taking her tramadol for pain control at home. Denies any falls or trauma to her hip. [facility] Medical History Irritable bowel syndrome Spinal stenosis of lumbar region History of recent fall Wears hearing aid in both ears Hearing loss, left Hearing loss, right Anemia Anxiety Depression Hypothyroidism Chronic pain Osteoporosis GI bleed GERD (gastroesophageal reflux disease) Wears hearing aid History of depression Alcohol use Walker as ambulation aid Dietary restriction History of hiatal hernia History of GI bleed Celiac disease Gastric reflux Non-smoker Hoarseness History of stress test History of rheumatic fever Thyroid disease Osteoporosis Hypertension Osteoporosis Home Medications ?Medication ?Instructions ?Recorded ?Last Taken ?Type amitriptyline 25 mg tablet 25 mg PO QHS Mood 08/16/20 10/03/23 History azelastine 137 mcg (0.1 %) nasal 1 spray NASAL BID SIN US 08/16/20 10/04/23 History spray fluticasone propionate 50 1 spray NASAL BID allergies 08/16/20 10/04/23 History mcg/actuation nasal spray,suspension tramadol 50 mg tablet 50 mg PO Q8H Pain 11/09/20 1 12/05/22 History levothyroxine 75 mcg tablet 75 mcg PO DAILY@0600 Thyro id #30 11/25/20 10/04/23 Rx tabs lisinopril 20 mg tablet 20 mg PO DAILY BP 01/30/21 1 12/05/22 History Held on 11/24/24. Instructions: Hold today and start tomorrow with lower dose 10 mg daily. gabapentin 300 mg capsule 300 mg PO TID pain 07/04/24 Unknown History trazodone 50 mg tablet 50 mg PO QHS sleep 07/04/24 Unknown History cholecalciferol (vitamin D3) 125 125 mcg PO DAILY supp lement #0 caps 07/07/24 Unknown Rx mcg (5,000 unit) capsule cephalexin 500 mg capsule 500 mg PO DAILY UTI preventi on 11/22/24 Unknown History acetaminophen 500 mg tablet 500 mg PO Q8H PRN PRN arth ritis 11/24/24 Unknown Rx pain #0 tabs cyanocobalamin (vitamin B-12) 1,000 mcg PO DAILY #30 t abs 11/24/24 Unknown Rx 1,000 mcg tablet pantoprazole 40 mg tablet,delayed 40 mg PO DAILY GERD 30 days #0 tabs 11/24/24 10/04/23 Rx release Allergy/AdvReac Type Severity Reaction Status Date / Time meperidine (From Demerol) Allergy Unknown NEEDS Verified 06/11/25 14:12 FOLLOW-UP morphine Allergy Unknown NEEDS Verified 06/11/25 14:12 FOLLOW-UP gluten Allergy Food Verified 06/11/25 14:12 Allergy grass pollen-perennial rye, Allergy sinus Verified 06/11/25 14:12 standar (grass pressure poll-perennial rye,std) nitrofurantoin AdvReac Mild Other Verified 06/11/25 14:12 house dust AdvReac Other Verified 06/11/25 14:12 lactose AdvReac Food Verified 06/11/25 14:12 Allergy mold AdvReac Other Verified 06/11/25 14:12 Surgical History S/P hysterectomy History of appendectomy History of biopsy of bladder History of bilateral salpingo-oophorectomy (BSO) History of cystostomy History of shoulder surgery History of right knee surgery History of back surgery History of hysterectomy History of cholecystectomy Social History household members: spouse housing: assisted living facility current occupational status: retired Smoking Status: Never smoker alcohol intake: never ROS ROS ED ROS Narrative see HPI EXAM Physical Exam Narrative Exam Narrative: Vital signs: Reviewed General: Alert and orientedx3. No acute distress HEENT: Head is normocephalic and atraumatic, sinuses nontender, pupils equal round and reactive. Nares are patent. Oropharynx and throat exams normal. Neck: Supple without lymphadenopathy nontender Cardiovascular: Regular rate and rhythm, no murmurs. No rubs or gallops. Normal S1 and S2 Respiratory: Clear to auscultation bilaterally. No wheezes, rales, rhonchi Abdominal: Soft and nontender. Normal bowel sounds. No guarding or rebound. Nonsurgical abdomen Extremities: Right hip with no tenderness to palpation AP or laterally. There is no overlying skin changes. No erythema, warmth. She is able to flex and extend at hip without difficulty. Able to flex and extend at knee without difficulty or pain. DP and PT pulses intact in the right lower extremity. Sensation intact. Skin: No rash or redness. Neurological: Cranial nerves II through XII are grossly intact. Normal strengthand sensation. Normal cerebellar function The rest of the physical exam is unremarkable Const Vital Signs: 06/11/25 14:12 Temperature 98.3 F Temperature Source Oral Pulse Rate 76 Respiratory Rate 16 Blood Pressure 151/74 H Blood Pressure Mean 99 Pulse Ox 97 Oxygen Delivery Method Room Air MDM MDM MDM Narrative Medical decision making narrative: Patient is a 89-year-old female presenting emergency department for right hip pain. Patient was seen and examined. Vitals are stable. Patient resting bed comfortably in no acute distress. Physical exam is unremarkable. She is able to flex and extend at the hip and knee without difficulty. There is no pain with these movements. There is no erythema or warmth of the hip. Low concern for septic joint. She has had no falls or trauma to her hip. Doubt fracture or dislocation. Likely this is musculoskeletal however will obtain a right hip x-ray given her age. X-ray reviewed by myself. No dislocation or fracture noted. Radiology read with no acute osseous abnormality. Patient able to ambulate. Encouraged to continue taking her pain medications at home as she has been. Given strict return precautions. Patient and daughter feel comfortable with the plan. Encouraged follow-up with PCP as soon as possible. Patient discharged from the Emergency Department. I do not feel that the patient's evaluation reveals any acute reasonfor admission at this time. I instructed them to either follow-up with their primary care physician or promptly return to the Emergency Department for reevaluation should symptoms worsen or new symptoms develop. I explained what symptoms would indicate the need to return to the emergency department. Shared decision making was used. The patient voiced understanding of the treatment planand is agreeable with it. Clinical impression Right hip pain History & Record Review Discussion w/independent historian: Patient and Family Radiography Diagnostic Testing: Clinical Impression(s) from Imaging Studies Hip/Pelvis X-Ray 06/11/25 16:24 IMPRESSION: No radiographic evidence of an acute osseous abnormality. - Findings and recommendations discussed above. Reading Location: [id number] Discharge Plan Triage Chief Complaint: Lower Extremity Injury ED Provider: Myrtle Sullivan Dx/Rx/DC Orders Clinical Impression: Acute pain of right hip Instructions: ED Hip Strain Prescriptions: No Action amitriptyline 25 MG tablet 25 mg PO QHS azelastine 1 SPRAY aerosol,spray 1 spray NASAL BID fluticasone propionate 1 SPRAY spray,suspension 1 spray NASAL BID tramadol 50 MG tablet 50 mg PO Q8H levothyroxine 75 MCG tablet 75 mcg PO DAILY@0600 Qty: 30 0RF lisinopril 20 MG tablet 20 mg PO DAILY trazodone 50 mg tablet 50 mg PO QHS gabapentin 300 mg capsule 300 mg PO TID cholecalciferol (vitamin D3) 125 mcg (5,000 unit) Capsule 125 mcg PO DAILY Qty: 0 0RF cephalexin 500 mg capsule 500 mg PO DAILY acetaminophen 500 mg Tablet 500 mg PO Q8H PRN PRN (Reason: arthritis pain) Qty: 0 0RF pantoprazole 40 MG tablet 40 mg PO DAILY 30 Days Qty: 0 0RF cyanocobalamin (vitamin B-12) 1,000 mcg tablet 1,000 mcg PO DAILY Qty: 30 0RF Primary Care Provider: Roma Grajeda Referrals: Roma Grajeda DO [Primary Care Provider] - 2 Days Activity Restrictions/Additional Instructions: Your evaluation in the Emergency Department did not reveal any acute reason for admission. However, I want to emphasize that you may be early in the course of adisease process or illness even if it is not present. For this reason you shouldfollow-up within 24 hours for reevaluation with either your primary care physician or if necessary back here in the Emergency Department. You should return to the Emergency Department immediately if your symptoms worsen or new symptoms develop. Print Language: Kuwaiti Disposition Disposition: Home, Self Care What to do if you have Problems For any increased pain, shortness of breath, bleeding, nausea or vomiting, chestpain, or any unexpected problems, contact your Primary Care Provider. Call [facility] ([phone]) or report to the closest Emergency Room. Call 911 if necessary. 06/11/25 1715 <Electronically signed by Myrtle Sullivan MD> Cosigner Signature (if applicable): CC: Dr. Roma Grajeda DO ~ Signed [facility] Work Phone: 1(371) 356-657002-20-2025 NoteDate of Procedure 11/27/2024. Interpretation Hyperfluorescence. Notes No Hyper-AF [id number] NoteDate of Procedure 11/27/2024. Disc Normal. Macula RPE mottling. Notes Old PEHCR - no tumor noticed OD RPE mottling [id number] NoteDate of Procedure 11/27/2024. [employer] Manager: JIGNESH. Start time: 10:33 AM. Stop time: 10:33 AM. OCT Macula Interpretation Abnormal foveal contour. Findings include Subretinal fluid, PED, CNV. Interval Change Initial. Notes Newly detected MNV [id number] NoteDate of Procedure 11/27/2024. [employer] KARENA Gaitan ROUB 11/27/2024 10:50 AM . Notes Interpretation of Ultrasound: Eye: OD There is a dome shaped lesion at 9:00 near the equator. Dimensions are 2.1 mm in height x 5.5 mm anterior to posterior x 7.0 mm laterally. It is irregularly structured, medium to high reflective and a vascular. No extraocular extension is detected. Impression: Fundus lesion documented- echographically not consistent with choroidal melanoma, more consistent with subretinal hemorrhage. No extraocular extension is detected. [id number] NoteHNO ID: [id number] Author: ZANE SOL MD Service: ? Author Type: Physician Type: Progress Notes Filed: 11/27/2024 17:23 Note Text: History: an 88 years old female, Referred by Dr Meng hCavez for evaluation of melanoma (OD) Was originally seen by Dr Foreman, [facility] in September 2024. Dr. Foreman was seeing this patient yearly, last time seen around 09/2024 and sent her to Dr. Parekh around 10/2024 and referred her to Dr. Sol, concerning of a growth in her left eye. Patient stated VA got progressively worse since 02/2024. No pain or other symptoms. Exam: Grayish, subretinal area 8 x 8 with clear margins, no obvious mass, at the 9 o'clock periphery - right eye US, FAF, fundus photos and OCT were taken. 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 No mass or melanoma Recommendation: - Discussed with patient about the findings - No need for f/u with Dr. Sol - Discussed further need for treatment with Ivit injections. Patient will contact her DrTaylor For further management - Dr. Parekh (letter) I have confirmed and edited as necessary the relevant ophthalmic history, ROS, and the neuro exam findings as obtained by others. I have seen and examined this patient. I have discussed the case and the management of this patient's care with the Resident/Fellow, if applicable. I also have reviewed and agree with the assessment and plan as stated above and agree with all of its relevant components. Zane Sol MD November 27, 2024 5:22 [facility]02-20-2025 History of Present illness Narrative* Zane Sol MD - 11/27/2024 9:06 AM EST History: an 88 years old female, Referred by Dr Meng Chavez for evaluation of melanoma (OD) Was originally seen by Dr Foreman, [facility] in September 2024. Dr. Foreman was seeing this patient yearly, last time seen around 09/2024 and sent her to Dr. Parekh around 10/2024 and referred her to Dr. Sol, concerning of a growth in her left eye. Patient stated VA got progressively worse since 02/2024. No pain or other symptoms. Exam: Grayish, subretinal area 8 x 8 with clear margins, no obvious mass, at the 9 o'clock periphery - right eye US, FAF, fundus photos and OCT were taken. 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 No mass or melanoma Recommendation: - Discussed with patient about the findings - No need for f/u with Dr. Sol - Discussed further need for treatment with Ivit injections. Patient will contact her DrTaylor For further management - Dr. Parekh (letter) I have confirmed and edited as necessary the relevant ophthalmic history, ROS, and the neuro exam findings as obtained by others. I have seen and examined this patient. I have discussed the case and the management of this patient's care with the Resident/Fellow, if applicable. I also have reviewed and agree with the assessment and plan as stated above and agree withall of its relevant components. Zane Sol MD November 27, 2024 5:22 PM documented in this encounterSum[facility] Medical Records Department [address] [place] [address] Discharge Summary 11/24/24 1201 MR#: [id number] Acct: [id number] Name: MARLI ROSALES Rep #: [id number] : 1935 88 From: Wai Neal MD PCP: Dr. Roma Grajeda DO Status:ADM IN [place]: [facility] [id number] Providers Date of Admission: 11/22/24 Date of Discharge: 11/24/24 Primary Care Physician: Dr. Roma Grajeda DO Reason For Visit: KATT ADVERSE DRUG REACTION TO BACTRIM AND FALL Diagnosis Discharge Diagnosis (1) KATT (acute kidney injury): Status: Acute Code(s): N17.9 - Acute kidney failure, unspecified Plan 88-year-old female admitted after she had mechanical fall. She was feeling very weak on her legs for last 48 hours. She was recently started on Bactrim DS for UTI 1. Acute kidney injury on a backdrop of stage III chronic kidney disease-: Patient was treated with IV fluid. She was admitted with creatinine 1.77. Today it is 0.80. Patient is well-hydrated. UA was negative for pyuria and patient denies dysuria or increased Conservancy. Patient was impregnated with IV ceftriaxone though acute UTI/cystitis ruled out. Patient on chronic cephalexin prophylaxis for UTI. Vitamin D is low. Prescription given for saline cobalamin #2 acute debility secondary to acute kidney injury-PT and OT worked with the patient, he will be expected to be discharged back to [facility] possibly tomorrow Patient is being discharged to [facility] #3 hypothyroidism-patient is on Synthroid #4 hypertension-patient is on lisinopril Discharge medication reconciliation done. Discharge follow-up instructions completed. Discharge process discussed with the patient and all questions were answered to patient's satisfaction. Follow with PCP in 1 to 2 weeks Total time spent, exact 35 minutes on discharge meds reconciliation, examination, coordination of care with nurses and ancillary staff, review of imaging and blood test and discussion with the patient on follow-up instructions. Medications at Discharge Home Medications amitriptyline 25 mg tablet 25 mg PO QHS Mood 08/16/20 azelastine 137 mcg (0.1 %) nasal spray 1 spray NASAL BID SINUS 08/16/20 fluticasone propionate 50 mcg/actuation nasal spray,suspension 1 spray NASAL BID allergies 08/16/20 tramadol 50 mg tablet 50 mg PO Q8H Pain 11/09/20 levothyroxine 75 mcg tablet 75 mcg PO DAILY@0600 Thyroid #30 tabs 11/25/20 lisinopril 20 mg tablet 20 mg PO DAILY BP 01/30/21 Held on 11/24/24. Instructions: Hold today and start tomorrow with lower dose 10 mg daily. gabapentin 300 mg capsule 300 mg PO TID pain 07/04/24 trazodone 50 mg tablet 50 mg PO QHS sleep 07/04/24 cholecalciferol (vitamin D3) 125 mcg (5,000 unit) capsule 125 mcg PO DAILY supplement #0 caps 07/07/24 cephalexin 500 mg capsule 500 mg PO DAILY UTI prevention 11/22/24 acetaminophen 500 mg tablet 500 mg PO Q8H PRN PRN arthritis pain #0 tabs 11/24/24 cyanocobalamin (vitamin B-12) 1,000 mcg tablet 1,000 mcg PO DAILY #30 tabs 11/24/24 pantoprazole 40 mg tablet,delayed release 40 mg PO DAILY GERD 30 days #0 tabs 11/24/24 Physical Exam Narrative Seen and examined. Patient is doing well. Denies any burning micturition, increased frequency or urgency. Denies fever. Physical exam General: Alert, Oriented x3, Cooperative HEENT: Atraumatic, PERRLA, EOMI, Normocephalic Oral: No Gingival or Mucosal Lesions/ Ulcerations Neck: Supple, No JVD, Negative Carotid Bruits Chest wall/Lungs: Air entry diminished in bilateral lung bases. No crepitation/rhonchi Cardiovascular: Regular rate, Regular Rhythm, Normal S1, Normal S2, No M/G/R Abdomen: Bowel Sounds Present, Soft, Non Tender, Non-Distended : No dysuria. No renal angle tenderness. No suprapubic tenderness. Extremities: No edema, Capillary Refill Less than 3 Seconds Skin: No rashes, No breakdown Musculoskeletal: No Tenderness to Palpation of Joints or Extremities. ROM mildly decreased. Neurological: Cranial nerves II-XII grossly intact, DTR 2+/4. No acute focal neurological deficit. Psych/Mental Status: Normal Affect, Appropriate. Weight / BMI Weight Weight: 150 lb 5.684 oz Body Mass Index (BMI) 31.5 ABG / Lab / Microbiology Data 11/23/24 05:57 11/24/24 06:40 Laboratory: Laboratory Results - last 24 hr 11/23/24 05:57: Vitamin B12 278 11/24/24 06:40: Sodium 136, Potassium 4.3, Chloride 106, Carbon Dioxide 24.0, Anion Gap 6, BUN 17, Creatinine 0.80, Estim Creat Clear Calc 42.69, Est GFR (MDRD) Af Amer 87, Est GFR (MDRD) Non-Af 72, BUN/Creatinine Ratio 21.2 H, Glucose 84, Calcium 9.2, Phosphorus 3.4 Microbiology: Microbiology 11/22/24 19:45 Mucosa - Nose SARS-CoV-2, Influenza RSV (PCR) - Final D/C Instructions DC O2, CPAP, BIPAP Needs Home O2 Discharge instructions: No Meaningful Use Info Meaningful Use Meaningful Use Diagnoses (Choos (more content not included)...[facility]09-30-2024 [facility] Medical Records Department [address] [place] [address] Discharge Summary 07/07/24 1751 MR#: [id number] Acct: [id number] Name: MARLI ROSALES Rep #: [id number] : 1935 88 From: Reinier Rojas DO PCP: Dr. Roma Grajeda DO Status:DIS HAIM Location: [place] [address]1 Providers Date of Admission: 07/04/24 Date of Discharge: 07/07/24 Primary Care Physician: Dr. Roma Grajeda DO Reason For Visit: ACETABULAR FRACTURE AFTER RECENT FALL Diagnosis Discharge Diagnosis (1) Acetabulum fracture, right: Status: Acute Code(s): S32.401A - Unspecified fracture of right acetabulum, initial encounter for closed fracture Qualifiers: Encounter type: sequela Fracture alignment: nondisplaced Fracture type: closed S ublocation of acetabulum: posterior column Qualified Code(s): S32.444S - Nondisplaced fracture of posterior column [ilioischial] of right acetabulum, sequela Plan 1. Acute right acetabular fracture secondary to osteoporosis extending into the ilium-not requiring surgical intervention, continue analgesics, PT and OT are seeing patient, patient is toe-touch weightbearing with avoidance of deep flexion or internal rotation and the use of walker #2 acute debility secondary to #1-patient will need short-term placement in detention facility, she currently lives in assisted living, approval is pending from her insurance company #3 essential hypertension-continue patient's home medications, these will be adjusted as needed #4 hypothyroidism-patient is on Synthroid #5 acute cystitis-present on admission, patient had an outpatient UA which resulted positive for Pseudomonas, Morganella, and Proteus-these are ESBL organisms, patient remains on Cipro Total clinical time spent by myself addressing patient's medical issues, reviewing all of her data, and collaborating with patient's care team: 25 minutes Medications at Discharge Home Medications amitriptyline 25 mg tablet 25 mg PO QHS Mood 08/16/20 azelastine 137 mcg (0.1 %) nasal spray 1 spray NASAL BID SINUS 08/16/20 fluticasone propionate 50 mcg/actuation nasal spray,suspension 1 spray NASAL BID allergies 08/16/20 tramadol 50 mg tablet 50 mg PO Q8H Pain 11/09/20 acetaminophen 500 mg tablet 500 mg PO Q6H PRN PRN Pain 1-10 Or Fever 11/22/20 pantoprazole 40 mg tablet,delayed release 40 mg PO BID GERD 11/22/20 levothyroxine 75 mcg tablet 75 mcg PO DAILY@0600 Thyroid #30 tabs 11/25/20 lisinopril 20 mg tablet 20 mg PO DAILY BP 01/30/21 amlodipine 5 mg tablet 5 mg PO DAILY 07/04/24 gabapentin 300 mg capsule 300 mg PO TID 07/04/24 trazodone 50 mg tablet 50 mg PO QHS 07/04/24 cholecalciferol (vitamin D3) 125 mcg (5,000 unit) capsule 125 mcg PO DAILY #0 caps 07/07/24 ciprofloxacin HCl 250 mg tablet 250 mg PO BID #8 tabs 07/07/24 hydrocodone-acetaminophen 5-325mg 5mg-325mg 1 tab PO Q6H PRN pain 5 days #20 tabs 07/07/24 Hospital Course Operations None Procedures None Summary of Care Provided Minutes Spent on Discharge: 31 Hospital Course: This 88-year-old white female was seen in the emergency room at [facility] after she sustained a fall a few days before at [facility] facility where she resided. She complained of right sided pelvic pain and right hip pain, she has been unable to ambulate since the fall. Workup in the emergency room included x-rays which showed a nondisplaced acetabular fracture extending into the ilium on the right, orthopedic surgery was contacted and felt that the patient did not require surgical intervention. [facility] she was seen by PT and OT, she ultimately decided to go back to [facility] at [place] with physical therapy. On 07/07/2024, patient was seen and examined: On examination she appeared in good health and spirits, she does not appear to be in any distress. Vital signs as documented. Skin warm and dry and without overt rashes. Neck without JVD, thyroid appears normal, trachea is midline, neck is supple. Lungs clear, normal air movement was noted. Heart exam notable for regular rhythm, normal sounds and absence of murmurs, rubs or gallops. Abdomen unremarkable and without evidence of organomegaly, masses, or abdominal aortic enlargement, bowel sounds are present in all 4 quadrants, no abdominal tenderness was noted. Extremities nonedematous, no cyanosis was noted, no clubbing was noted. Neuro: Cranial nerves II through XII are grossly intact, no focal motor deficits were noted, sensation to light touch and pinprick is intact, motor exam 5/5 throughout. Psych: Patient is alert and oriented x3, she does not appear anxious or depressed, she does not appear agitated. Patient was discharged to assisted living on 07/07/2024 in stable condition Weight / BMI Weight Weight: 66.587 kg Body Mass Index (BMI) 30.7 ABG / Lab / Microbio (more content not included)...[facility] 10-10-2023 Discharge summary Author Kiel Son [facility] October 10, 2023 7:59am Note Date/Time October 10, 2023 7: 59am [facility] Medical Records Department [address] [place] [address] Transfer to [facility] Care MR#: [id number] Acct: [id number] Name: MARLI ROSALES Rep #:[id number] : 1935 87 From: Kiel Son MD PCP: Dr. Roma Grajeda, DO Status:ADM IN Certification of patient admission REQUIRED AT TIME OF ADMISSION. I CERTIFY THAT POST-HOSPITAL F SERVICES ARE REQUIRED TO BE GIVEN ON AN IN-PATIENT BASIS BECAUSE OF THE ABOVE NAMED PATIENT'S NEED FOR INTERMEDIATE CARE ON A CONTINUING BASIS FOR THE CONDITION(S) FOR WHICH HE/SHE WAS RECEIVING IN-PATIENT HOSPITAL SERVICES PRIOR TO HIS/HER TRANSFER TO THE [facility]. 10/10/23 0759<Electronically signed by Kiel Son MD> Diet Diet Order/Speech Therapy: 10/04/23 16:00 Diet: Regular - General Food consistency:: Regular Liquid Consistency:: Regular/Thin Dietary Modifications:: Gluten Free Is pt able to select menu?: Yes Diet Comments: 1 salt packet per meal / lactose free milk to drink Routine Orders/Code Status Code Status: DNRCC-A (No intubation.) Wound(s) Left posterior thigh: Wound Type: Scab Therapies Weight Bearing: Weight bearing as tolerated Extremity Affected:: Bilateral Lower Physical Therapy: Eval and Treat Occupational Therapy: Eval and Treat Problem/Diagnosis (1) Debility: Status: Acute Code(s): R53.81 - Other malaise (2) History of recent fall: Status: Acute Code(s): Z91.81 - History of falling (3) Closed TBI (traumatic brain injury): Status: Acute Code(s): S06.9XAA - Unspecified intracranial injury with loss of consciousness status unknown, initial encounter Comment: Mild (4) Eardrum rupture, bilateral: Status: Acute Code(s): H72.93 - Unspecified perforation of tympanic membrane, bilateral (5) Urinary tract infection: Status: Acute Code(s): N39.0 - Urinary tract infection, site not specified (6) Insomnia: Status: Chronic Code(s): G47.00 - Insomnia, unspecified (7) Osteoporosis: Status: Chronic Code(s): M81.0 - Age-related osteoporosis without current pathological fracture (8) Hypothyroidism: Status: Chronic Code(s): E03.9 - Hypothyroidism, unspecified (9) Hypertension: Status: Chronic Code(s): I10 - Essential (primary) hypertension Allergies/Procedures Done in Hospital Allergies gluten Allergy (Verified 01/18/23 20:27) Food Allergy grass pollen-perennial rye, standar [grass poll-perennial rye,std] Allergy (Verified 01/18/23 20:27) sinus pressure house dust Adverse Reaction (Verified 01/18/23 20:27) Other SINUS PRESSURE lactose Adverse Reaction (Verified 01/18/23 20:27) Food Allergy mold Adverse Reaction (Verified 01/18/23 20:27) Other SINUS PRESSURE Procedures: None Type of Care/Length of Stay Estimated LOS: More Than 30 Days Type of Care Needed: Skilled Nursing/Assisted Living Rehab Potential: Fair Prognosis: Fair Additional Orders/Day of Discharge Day of Discharge: 10/13/23 Dietary and Speech Recommendations Dietitian Recommendations/Changes: Change diet to liberal regular/gluten free - 1 salt packet per meal and lactose free milk to drink Discharge Plan Admission Admit Date/Time: 10/04/23 15:19 Primary Reason for Your Visit: Debility. Attending Provider: Whitney Gusman Primary Care Provider: Roma Grajeda Instructions Additional Instructions / Restrictions: Discharge 10/12/2023 to [facility] with , [facility] PT/OT. Discharge Orders/Prescriptions Prescriptions: New amlodipine 10 mg Tablet 10 mg PO DAILY 30 Days Qty: 30 0RF gabapentin 100 mg Capsule 200 mg PO TID 30 Days Qty: 180 0RF Continued amitriptyline 25 MG tablet 25 mg PO QHS Hold Instructions: Resume on 01/03/23. Hold until discussing with your primary care physician azelastine 1 SPRAY aerosol,spray 1 spray NASAL BID fluticasone propionate 1 SPRAY spray,suspension 1 spray NASAL BID tramadol 50 MG tablet 50 mg PO Q8H Hold Instructions: Resume on 12/27/22. Would recommend discussing this medication with your prescribing physician prior to resuming due to the increased risk of confusion and falls acetaminophen 500 MG tablet 500 mg PO Q6H PRN PRN (Reason: Pain 1-10 Or Fever) pantoprazole 40 MG tablet 40 mg PO BID levothyroxine 75 MCG tablet 75 mcg PO DAILY@0600 Qty: 30 0RF lisinopril 20 MG tablet 20 mg PO DAILY Discontinued trazodone 50 MG tablet 50 mg PO QHS amlodipine 5 MG tablet 5 mg PO DAILY gabapentin 300 MG capsule 300 mg PO TID Hold Instructions: Resume on 12/27/22. Would recommend discussing this medication with your prescribing physician prior to resuming due to the increased risk of confusion and falls ciprofloxacin HCl 0.3 % Drops 2 drp LEFT EAR BID 7 Days Qty: 0 0RF Rx Instructions: Continue for 7 days. cefdinir 300 mg Capsule 300 mg PO Q12 5 Days Qty: 0 0RF Referrals / Follow Up: Deangelo Scott MD [Med Staff - Active Staff] - (Left ear TM perforation after fall.) Roma Grajeda DO [Primary Care Provider] - Disposition Disposition (needs filled in before D/C Order can be placed): Home Health Service (3) Closed TBI (traumatic brain injury) Qualifiers: Encounter type: subsequent encounter Loss of consciousness presence/duration:unknown LOC status Qualified Code(s): S06.9XAD - Unspecified intracranial injury with loss of consciousness status unknown, subsequent encounter (5) Urinary tract infection Qualifiers: Urinary tract infection type: acute cystitis Hematuria presence: without hematuria Qualified Code(s): N30.00 - Acute cystitis without hematuria (6) Insomnia Qualifiers: Insomnia type: unspecified Qualified Code(s): G47.00 - Insomnia, unspecified (7) Osteoporosis Qualifiers: Osteoporosis type: age-related Presence of current pathological fracture: without current pathological fracture Qualified Code(s): M81.0 - Age-related osteoporosis without current pathological fracture (8) Hypothyroidism Qualifiers: Hypothyroidism type: acquired Qualified Code(s): E03.9 - Hypothyroidism, unspecified (9) Hypertension Qualifiers: Hypertension type: primary hypertension Qualified Code(s): I10 - Essential (primary) hypertension 10/10/23 0759 <Electronically signed by Kiel Son MD> Cosigner Signature (if applicable): CC: Dr. Roma Grajeda DO ~ [facility] Work Phone: 1(482) 717-661701-03-2024 Discharge summary Author [facility] October 10, 2023 7:58am Note Date/Time October 10, 2023 7: 56am [facility] Medical Records Department [address] [place] [address] Discharge Summary 10/10/23753 MR#: [id number] Acct: [id number] Name: MARLI ROSALES Rep #:[id number] : 1935 87 From: Kiel Son MD PCP: Dr. Roma Grajeda DO Status:ADM IN Location: [place] [address] Providers Date of Admission: 10/04/23 Primary Care Physician: Dr. Roma Grajeda DO Reason For Visit: CLOSED HEAD INJURY AFTER FALL Diagnosis Discharge Diagnosis (1) Debility: Status: Acute Code(s): R53.81 - Other malaise (2) History of recent fall: Status: Acute Code(s): Z91.81 - History of falling (3) Closed TBI (traumatic brain injury): Status: Acute Code(s): S06.9XAA - Unspecified intracranial injury with loss of consciousness status unknown, initial encounter Qualifiers: Encounter type: subsequent encounter Loss of consciousness presence/duration: unknown LOC status Qualified Code(s): S06.9XAD - Unspecifiedintracranial injury with loss of consciousness status unknown, subsequent encounter (4) Eardrum rupture, bilateral: Status: Acute Code(s): H72.93 - Unspecified perforation of tympanic membrane, bilateral (5) Urinary tract infection: Status: Acute Code(s): N39.0 - Urinary tract infection, site not specified Qualifiers: Urinary tract infection type: acute cystitis Hematuria presence: without hematuria Qualified Code(s): N30.00 - Acute cystitis without hematuria (6) Insomnia: Status: Chronic Code(s): G47.00 - Insomnia, unspecified Qualifiers: Insomnia type: unspecified Qualified Code(s): G47.00 - Insomnia, unspecified (7) Osteoporosis: Status: Chronic Code(s): M81.0 - Age-related osteoporosis without current pathological fracture Qualifiers: Osteoporosis type: age-related Presence of current pathological fracture: without current pathological fracture Qualified Code(s): M81.0 - Age-related osteoporosis without current pathological fracture (8) Hypothyroidism: Status: Chronic Code(s): E03.9 - Hypothyroidism, unspecified Qualifiers: Hypothyroidism type: acquired Qualified Code(s): E03.9 - Hypothyroidism, unspecified (9) Hypertension: Status: Chronic Code(s): I10 - Essential (primary) hypertension Qualifiers: Hypertension type: primary hypertension Qualified Code(s): I10 - Essential (primary) hypertension Medications at Discharge Home Medications amitriptyline 25 mg tablet 25 mg PO QHS Mood 08/16/20 azelastine 137 mcg (0.1 %) nasal spray aerosol 1 spray NASAL BID SINUS 08/16/20 fluticasone propionate 50 mcg/actuation nasal spray,suspension 1 spray NASAL BIDallergies 08/16/20 tramadol 50 mg tablet 50 mg PO Q8H Pain 11/09/20 acetaminophen 500 mg tablet 500 mg PO Q6H PRN PRN Pain 1-10 Or Fever 11/22/20 pantoprazole 40 mg tablet,delayed release 40 mg PO BID GERD 11/22/20 levothyroxine 75 mcg tablet 75 mcg PO DAILY@0600 Thyroid #30 tabs 11/25/20 lisinopril 20 mg tablet 20 mg PO DAILY BP 01/30/21 amlodipine 10 mg tablet 10 mg PO DAILY 30 days #30 tabs 10/10/23 gabapentin 100 mg capsule 200 mg (2 x 100 mg) PO TID 30 days #180 caps 10/10/23 Hospital Course Operations None Procedures None Summary of Care Provided Minutes Spent on Discharge: 35 Hospital Course: 87 year old female with below past medical history hospitalized for fall, closedhead injury, concussion, dizziness, admitted to TCU with debility, here for rehabilitation, strengthening, prior to discharge home with . Discharge 10/12/2023 to [facility] with , [facility] PT/OT. Physical Exam Const alert General Appearance: cooperative HEENT normocephalic Eyes PERRL and EOMs intact bilaterally Neck supple, no JVD and no carotid bruits Resp normal respiratory effort, normal air movement and clear to auscultation bilaterally Cardio regular rate and regular rhythm GI normal to inspection, nondistended, normoactive bowel sounds, non-tender and non-distended Extremity normal capillary refill General Extremity: Negative for edema Skin no rashes or lesions noted General Skin Exam: no breakdown Psych affect normal Appearance: appropriate Weight / BMI Weight Weight: 65.363 kg Body Mass Index (BMI) 30.1 ABG / Lab / Microbiology Data 10/05/23 05:29 10/05/23 05:29 Microbiology: Microbiology 10/09/23 05:09 Nasal Secretion SARS-CoV-2 Antigen (Rapid) - Final 10/05/23 05:19 Nasal Secretion SARS-CoV-2 Antigen (Rapid) - Final D/C Instructions Discharge Diet: No restrictions Discharge Activity: Return to Normal Activity, May Shower and Use Walker Weight Bearing Status: Weight bearing as tolerated Call your doctor if you observe: Fever of 101 or Higher, Inability to urinate, Inability to have a bowel movement, Shortness of breath, Fainting spells, Swelling in the ankles, Chest pain and Uncontrolled pain Additional Instructions: Discharge 10/12/2023 to [facility] with , [facility] PT/OT. Meaningful Use Info Meaningful Use Diagnoses (Choose all that apply): None applicable Discharge Plan Admission Admit Date/Time: 10/04/23 15:19 Primary Reason for Your Visit: Debility. Attending Provider: Whitney Gusman Primary Care Provider: Roma Grajeda Instructions Additional Instructions / Restrictions: Discharge 10/12/2023 to [facility] with , [facility] PT/OT. Discharge Orders/Prescriptions Prescriptions: New amlodipine 10 mg Tablet 10 mg PO DAILY 30 Days Qty: 30 0RF gabapentin 100 mg Capsule 200 mg PO TID 30 Days Qty: 180 0RF Continued amitriptyline 25 MG tablet 25 mg PO QHS Hold Instructions: Resume on 01/03/23. Hold until discussing with your primary care physician azelastine 1 SPRAY aerosol,spray 1 spray NASAL BID fluticasone propionate 1 SPRAY spray,suspension 1 spray NASAL BID tramadol 50 MG tablet 50 mg PO Q8H Hold Instructions: Resume on 12/27/22. Would recommend discussing this medication with your prescribing physician prior to resuming due to the increased risk of confusion and falls acetaminophen 500 MG tablet 500 mg PO Q6H PRN PRN (Reason: Pain 1-10 Or Fever) pantoprazole 40 MG tablet 40 mg PO BID levothyroxine 75 MCG tablet 75 mcg PO DAILY@0600 Qty: 30 0RF lisinopril 20 MG tablet 20 mg PO DAILY Discontinued trazodone 50 MG tablet 50 mg PO QHS amlodipine 5 MG tablet 5 mg PO DAILY gabapentin 300 MG capsule 300 mg PO TID Hold Instructions: Resume on 12/27/22. Would recommend discussing this medication with your prescribing physician prior to resuming due to the increased risk of confusion and falls ciprofloxacin HCl 0.3 % Drops 2 drp LEFT EAR BID 7 Days Qty: 0 0RF Rx Instructions: Continue for 7 days. cefdinir 300 mg Capsule 300 mg PO Q12 5 Days Qty: 0 0RF Referrals / Follow Up: Deangelo Scott MD [Med Staff - Active Staff] - (Left ear TM perforation after fall.) Roma Grajeda DO [Primary Care Provider] - Disposition Disposition (needs filled in before D/C Order can be placed): Home Health Service 10/10/23 0759 <Electronically signed by Kiel Son MD> Cosigner Signature (if applicable): CC: Dr. Roma Grajeda DO; Dr. Kiel Son MD~ Signed [facility] Work Phone: 1(363) 520-948212-29-2023 History and physical note Author Whitney Gusman [facility] October 05, 2023 11:38am Note Date/Time October 04, 2023 4:21pm [facility] Medical Records Department [facility] [place] [address] History & Physical Exam 10/04/23 1613 MR#: [id number] Acct: [id number] Name: MARLI ROSALES Rep #:[id number] : 1935 87 From: Whitney Gusman DO PCP: Dr. Roma Grajeda, DO Status:ADM IN [facility] - General General Date of Admission: 10/04/23 Date of Service: 10/04/23 Chief Complaint: Debility due to closed head injury due to a fall HPI Narrative MARLI ROSALES, is a 87 F with a past medical history of hypertension, obesity, hypothyroidism, remote history of rheumatic fever, celiac disease, osteoporosis, GERD, hiatal hernia, peptic ulcer disease with GI bleed, overactive bladder, recurrent UTIs, depression, osteoarthritis and chronic neck pain who presented to the emergency department at [facility] on 09/28/2023 complaining of headache, confusion, dizziness and difficulty walking secondary to unsteady gait. The symptoms had started 1 day prior to presenting to the emergency room when she fell in her kitchen. Her found her on the floor and the patient cannot really recall if she tripped or if she had syncope. 911 was called and EMS evaluated her and could find no acute injury. She was not transported to the emergency room at that time. On 09/28/2023 she had been in bed all day complaining of a headache. She had no slurred speech and no focal neurologic signs. She was taken to the emergency department where a CT scan of the head was negative for acute pathologic changes. She was noted to have a ruptured left TM and evidence of concussion complicated by polypharmacy (medications include amitriptyline 25 mg q HS, Gabapentin 300 mg 3 times daily, trazodone 50 mg nightly and tramadol 50 mg every 8 hours) and generalized weakness with ambulatory dysfunction that had worsened since her fall. She was admitted to the hospitalist service. She was evaluated by PT/OT and although she is ambulating with a FWW at [facility] she is still c/o dizziness. Admission to SNF was recommended. She was transferred to the transitional care unit at [facility] on 10/04/2023 for therapy to strengthen and stabilize her gait prior to going home. She denies any change in mentation since the fall but, she is c/o her vision being somewhat blurry. She denies loss of vision and she currently denies dizziness/vertigo. She is c/o pain in the Left posterior neck and trapezius ridge that radiates to the L side of the scalp. She uses a FWW for ambulation at home. she can not recall why she fell or if she passed out. [facility] Medical History (Updated 10/05/23 @ 11:[address] Whitney Gusman, ) Alcohol use Anemia Anxiety Celiac disease Chronic pain Depression Dietary restriction Gastric reflux GERD (gastroesophageal reflux disease) GI bleed Hearing loss, left Hearing loss, right History of depression History of GI bleed History of hiatal hernia History of rheumatic fever History of stress test Hoarseness Hypertension Hypothyroidism Non-smoker Osteoporosis Osteoporosis Thyroid disease Walker as ambulation aid Wears hearing aid Wears hearing aid in both ears Home Medications amitriptyline 25 mg tablet 25 mg PO QHS Mood 08/16/20 [History Last Taken 10/03/23] amlodipine 5 mg tablet 5 mg PO DAILY BP 08/16/20 [History Last Taken 12/06/22] azelastine 137 mcg (0.1 %) nasal spray aerosol 1 spray NASAL BID SINUS 08/16/20 [History Last Taken 10/04/23] fluticasone propionate 50 mcg/actuation nasal spray,suspension 1 spray NASAL BIDallergies 08/16/20 [History Last Taken 10/04/23] 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 08/16/20 [History Last Taken 10/04/23] trazodone 50 mg tablet 50 mg PO QHS sleep 08/16/20 [History Last Taken 10/03/23] tramadol 50 mg tablet 50 mg PO Q8H Pain 11/09/20 [History Last Taken 10/04/23] acetaminophen 500 mg tablet 500 mg PO Q6H PRN PRN Pain 1-10 Or Fever 11/22/20 [History Last Taken 10/04/23] pantoprazole 40 mg tablet,delayed release 40 mg PO BID GERD 11/22/20 [History Last Taken 10/04/23] levothyroxine 75 mcg tablet 75 mcg PO DAILY@0600 Thyroid #30 tabs 11/25/20 [Rx Last Taken 10/04/23] lisinopril 20 mg tablet 20 mg PO DAILY BP 01/30/21 [History Last Taken 10/04/23] cefdinir 300 mg capsule 300 mg PO Q12 Antibiotic 5 days #0 caps 10/04/23 [Rx Last Taken 10/04/23] ciprofloxacin HCl 0.3 % eye drops 2 drp LEFT EAR BID Antibiotic 7 days #0 mL 10/04/23 [Rx Last Taken 10/04/23] Allergy/AdvReac Type Severity Reaction Status Date / Time gluten Allergy Food Verified 01/18/23 20:27 Allergy grass pollen-perennial rye, Allergy sinus Verified 01/18/23 20:27 standar pressure [grass poll-perennial rye,std] house dust AdvReac Other Verified 01/18/23 20:27 lactose AdvReac Food Verified 01/18/23 20:27 Allergy mold AdvReac Other Verified 01/18/23 20:27 Surgical History History of back surgery History of bilateral salpingo-oophorectomy (BSO) History of biopsy of bladder History of cholecystectomy History of cystostomy History of hysterectomy History of right knee surgery History of shoulder surgery Social History Smoking Status: Never smoker alcohol intake: never ROS Constitutional Constitutional: Reports weakness; Denies anorexia, change in weight, chills, fatigue, fever(s) or night sweats Eyes Eyes: Reports blurry vision and change in vision; Denies eye pain or loss of vision ENT HEENT: Reports dry mouth and headache(s); Denies abnormal hearing, dizziness, dysphagia, hearing loss, nasal congestion or sore throat Cardiovascular Cardiovascular: Denies chest pain, dyspnea on exertion, edema, lightheadedness, orthopnea, palpitations, paroxysmal nocturnal dyspnea or syncope Respiratory/Chest Respiratory/Chest: Denies cough, dyspnea, shortness of breath at rest, shortnessof breath with exertion or wheezing Gastrointestinal Gastrointestinal: Denies abdominal pain, constipation, diarrhea, dyspepsia, hematemesis, hematochezia, nausea or vomiting Genitourinary Genitourinary: Denies dysuria, hematuria, nocturia, urinary frequency, urinary hesitancy, urinary incontinence or urinary urgency Musculoskeletal Musculoskeletal: Reports joint pain, muscle weakness and neck pain; Denies back pain or joint swelling Integumentary Integumentary: Reports dry skin; Denies jaundice or photosensitivity Neurologic Neurologic: Reports headache(s); Denies confusion, disequilibrium, dizziness, focal weakness, paresthesias, seizures or tremor(s) Psychiatric Psychiatric: Denies anxiety, depression, homicidal ideation or suicidal ideation Endocrine Endocrinology: Denies change in body appearance, polydipsia or polyuria Hematologic/Lymphatic Hematologic/Lymphatic: Denies easy bleeding, easy bruising or lymphadenopathy Allergic/Immunologic Allergic/Immunologic: Denies rhinitis, eczemia or asthma Vital Signs Vital Signs Vital Signs: 10/04/23 15:42 Temperature 97.6 F L Temperature Source Temporal Pulse Rate 75 Respiratory Rate 18 Blood Pressure 125/53 H Blood Pressure Mean 77 Blood Pressure Source Monitor Blood Pressure Position Semi-Fowlers Blood Pressure Location Right Arm Pulse Ox 97 Oxygen Delivery Method Room Air Physical Exam Const alert, oriented x3, no apparent distress and healthy appearing General Appearance: cooperative and well kempt HEENT normocephalic HEENT Narrative: Dry mucous membranes. She has BL TM perforations. No DC from the ear. No redness in the EAC Head and Scalp: Negative for Izquierdo's sign, raccoon eyes or scalp lesion Eyes PERRL, EOMs intact bilaterally, conjunctivae normal and no scleral icterus Eyes Narrative: Wears glasses General Eye: normal appearance of both eyes Neck No nuchal rigidity Neck Narrative: BL trapezius spasm,R>L, TTP but, no guarding. No radiation into the arms Chest Chest: symmetrical chest wall rise Resp normal respiratory effort and normal air movement Resp Narrative: Coarse crackles in the left base that persist after several deep breaths........admits to having PNA in the past Effort and Inspection: able to speak in complete sentences Cardio regular rhythm, S1 normal heart sound, S2 normal heart sound, no murmurs, no ruband no gallops Cardio Narrative: resting HR is mildly increased. No ectopy. GI normal to inspection, nondistended, normoactive bowel sounds, soft to palpation and non-tender Back/Spine General Back: CVA tenderness Extremity no pedal edema Extremity Narrative: Large cicatrix R knee - has had 4 or 5 surgeries on this knee and at one point had an antibiotic spacer Skin General Skin Exam: no breakdown Rashes: no rashes Neuro oriented x3, CN's II-XII intact bilaterally, moves all extremities and no focal motor deficits Psych mental status grossly normal, thought process normal, cooperative, affect normaland speech normal Appearance: grossly normal, appropriate and well kempt Attitude: calm Activity / Motor Behavior: appropriate eye contact Results Lab / Micro Data 10/05/23 05:29 Assessment & Plan Assessment/Plan (1) Debility: (2) History of recent fall: (3) Closed TBI (traumatic brain injury): QUALIFIERS: Encounter type: subsequent encounter Loss of consciousness presence/duration: unknown LOC status Qualified Code(s): S06.9XAD- Unspecified intracranial injury with loss of consciousness status unknown, subsequent encounter PLAN: mild (4) Eardrum rupture, bilateral: (5) Urinary tract infection: QUALIFIERS: Hematuria presence: without hematuria Urinary tract infection type: acute cystitis Qualified Code(s): N30.00 - Acute cystitis without hematuria PLAN: E. Coli (6) Insomnia: QUALIFIERS: Insomnia type: unspecified Qualified Code(s): G47.00 - Insomnia, unspecified (7) Osteoporosis: QUALIFIERS: Osteoporosis type: age-related Presence of current pathological fracture: without current pathological fracture Qualified Code(s):M81.0 - Age-related osteoporosis without current pathological fracture (8) Hypothyroidism: QUALIFIERS: Hypothyroidism type: acquired Qualified Code(s): E03.9 - Hypothyroidism, unspecified (9) Hypertension: QUALIFIERS: Hypertension type: primary hypertension Qualified Code(s): I10 - Essential (primary) hypertension PLAN: Plan PLAN PT for gait stability OT for ADL's Analgesics as needed-scheduled Tylenol 1 g p.o. every 8 hours and continue tramadol 50 mg p.o. every 12 hours for now. Will also add compounded arthritis cream containing baclofen, lidocaine and diclofenac to the posterior neck and right trapezius ridge. Bowel protocol Fall precautions Assess for Anxiety/Depression GI prophylaxis -not necessary at this time. She denies nausea/vomiting/abdominal pain/epigastric pain. DVT prophylaxis - She is ambulatory and denies any hx of DVT and has a head injury - will defer pharmacologic prophylaxis at this time Follow up with PCP following DC from [facility] AM lab including CMP, CBC, Mag and Phos She would like to stay on amitriptyline. She has taken this medication in the past and it helps her to sleep at night. She agreed to trial discontinuing trazodone. Decrease gabapentin to 200 mg p.o. twice 3 times daily Discouraged her from drinking wine at night since she is taking other sedating medications. heating pad to the posterior neck Finish a 7-day course of antibiotics for treatment of urinary tract infection due to E. coli. DC the ear drops due to BL TM perforations 1. Antipsychotic no 2. Antianxiety no 3. Antidepressant yes for depression and insomnia 4. Hypnotic no 5. Anticoagulant no 6. Antibiotic yes UTI due to E. Coli 7. Diuretic no 8. Opioid yes Tramadol for chronic neck pain 9. Antiplatelet no 10. Hypoglycemic agent no Charges/Coding Visit Charges Inpatient E&M: 95713 SNF Init L1 10/05/23 1138 <Electronically signed by Whitney Gusman DO> Cosigner Signature (if applicable): CC: Dr. Roma Grajeda DO; Dr. Whitney Gusman DO~ Signed [facility] Work Phone: 1([phone]) 522-305512-29-2023 Progress note Author Diane Hall [facility] October 05, 2023 10:18am Note Date/Time October 05, 2023 9:40am [facility] Medical Records Department [address] [place] [address] Progress Note - Pharmacy 10/05/23 0934 MR#: [id number] Acct: [id number] Name: MARLI ROSALES Rep #:[id number] : 1935 87 From: Diane Hall PCP: Dr. Roma Grajeda DO Status:ADM IN Location: TCU U16-1 TCU RX Drug Regimen Review Subjective/Objective Subjective/Objective: Subjective: 87 YOF admitted to TCU on 10/04/23 s/p hospitalization after a fall where she had a r/o syncopal event resulting in a closed headed injury. Patient admitted to TCU for strengthening and rehabilitation prior to discharge home where she resides with her spouse. Objective: Allergies gluten Allergy (Verified 01/18/23 20:27) Food Allergy grass pollen-perennial rye, standar [grass poll-perennial rye,std] Allergy (Verified 01/18/23 20:27) sinus pressure house dust Adverse Reaction (Verified 01/18/23 20:27) Other SINUS PRESSURE lactose Adverse Reaction (Verified 01/18/23 20:27) Food Allergy mold Adverse Reaction (Verified 01/18/23 20:27) Other SINUS PRESSURE Current Medications Generic Name Dose Route Start Last Admin Trade Name Freq PRN Reason Stop Dose Admin Acetaminophen 500 mg 10/04/23 15:48 10/05/23 08:19 Acetaminophen 500 Mg Tablet PO 500 mg Q6H PRN PRN Administration Pain 1-10 Or Fever Amitriptyline HCl 25 mg 10/04/23 22:00 10/04/23 21:14 Amitriptyline 25 Mg Tablet PO 25 mg QHS FRED Administration Amlodipine Besylate 10 mg 10/05/23 10:00 10/05/23 08:09 Amlodipine 10 Mg Tablet PO 10 mg DAILY FRED Administration Protocol Azelastine HCl 1 spray 10/04/23 22:00 10/05/23 08:08 Azelastine Hcl Nasal.Sry NASAL 1 spray BID FRED Administration Cefdinir 300 mg 10/04/23 22:00 10/05/23 08:10 Cefdinir 300 Mg Capsule PO 10/09/23 23:00 300 mg Q12 FRED Administration Ciprofloxacin HCl 2 drp 10/04/23 22:00 10/05/23 08:08 Ciprofloxacin 0.3% 2.5ml Bottle LEFT EAR 10/11/23 22:01 2 drp BID FRED Administration Compound Med 0 click 10/04/23 22:00 10/05/23 08:07 Arthritis Pain Compound 60 Click Tube TOPICAL 1 click BID FRED Administration Protocol Fluticasone Propionate 1 spray 10/04/23 22:00 10/05/23 08:09 Fluticasone 0.05% 1 [place] Nasal.Sry NASAL 1 spray BID FRED Administration Gabapentin 200 mg 10/04/23 22:00 10/05/23 05:10 Gabapentin 100 Mg Capsule PO 200 mg TID FRED Administration Levothyroxine Sodium 75 mcg 10/05/23 06:00 10/05/23 05:10 Levothyroxine 75 Mcg Tablet PO 75 mcg DAILY@0600 FRED Administration Lisinopril 20 mg 10/05/23 10:00 10/05/23 08:10 Lisinopril 20 Mg Tablet PO 20 mg DAILY FRED Administration Protocol Sodium Chloride 10 - 40 ml 10/04/23 16:07 0.9% Saline Lock 10 Ml Syringe IV UD PRN SALINE FLUSH Tramadol HCl 50 mg 10/04/23 22:00 10/05/23 08:19 Tramadol 50 Mg Tablet PO 50 mg Q12 FRED Administration Tuberculin PPD 0.1 ml 10/12/23 10:00 Tuberculin,Purif.Prot.Deriv. 50 Tu/Ml Vial ID 10/12/23 10:01 X1 ONE Tuberculin PPD 0.1 ml 10/05/23 10:00 Tuberculin,Purif.Prot.Deriv. 50 Tu/Ml Vial ID 10/05/23 10:01 X1 ONE Problem List (Updated 10/04/23 @ 19:[address] Whitney Gusman, DO) Rupture of left tympanic membrane (Acute) Closed TBI (traumatic brain injury) (Acute) Debility (Acute) History of recent fall (Acute) Urinary tract infection (Acute) Insomnia (Chronic) Osteoporosis (Chronic) Hypothyroidism (Chronic) Hypertension (Chronic) Vital Signs Temp Pulse Resp BP Pulse Ox O2 Del Method 97.9 F 74 16 124/75 H 94 Room Air 10/05/23 08:16 10/05/23 08:16 10/05/23 08:16 10/05/23 08:16 10/05/23 08:16 10/05/23 08:16 Oxygen Delivery Method Room Air Weight: 66.706 kg Body Mass Index (BMI) 30.7 Sodium 141 mmol/L (136-145) 10/05/23 05:29 Potassium 3.9 mmol/L (3.5-5.1) 10/05/23 05:29 Chloride 107 mmol/L (98-107) 10/05/23 05:29 Carbon Dioxide 28.0 mmol/L (21.0-32.0) 10/05/23 05:29 Anion Gap 6 (5-15) 10/05/23 05:29 BUN 18 mg/dL (7-18) 10/05/23 05:29 Creatinine 0.75 mg/dL (0.55-1.02) 10/05/23 05:29 Est GFR (MDRD) Af Amer 94 mL/min (>60) 10/05/23 05:29 Est GFR (MDRD) Non-Af 77 mL/min (>60) 10/05/23 05:29 BUN/Creatinine Ratio 23.9 RATIO (10-20) H 10/05/23 05:29 Glucose 81 mg/dL (74-106) 10/05/23 05:29 Assessment/Plan: 1. Pain: Arthritis Pain compound topically BID, Tylenol 500mg PO Q6h PRN Pain, Tramadol 50mg PO Q12h. Please continue to monitor for increased/decreased S/S pain, oversedation/dizziness with tramadol use, skin irritation/redness with topical cream application. -The patient had used 1 dose of Tylenol for headache rated 4/10. 2. UTI: Cefdinir 300mg PO Q12h thru 10/09/22. Please continue to monitor for resolution of urinary symptoms, diarrhea. Culture data from 09/26/23 shows E.coli growing which is sensitive to Cefdinir at this time, continue current therapy based on culture results. 3. Hypertension: Norvasc 10mg PO Daily, Lisinopril 20mg PO Daily. Please continue to monitor BP (last 124/75), potassium levels (last 3.9 on 10/05). 4. Hypothyroidism: Levothyroxine 75mcg PO Daily. Please continue to monitor for S/s hypothyroid, TSH levels as clinically indicated. 5. Allergic Rhinitis: Azelastine nasal spray BID, Flonase nasal spray BID. Please continue to monitor for symptom improvement, nasal irritation, rebound congestion. 6. Eye Infection: Cipro Eye drops 2 gtt left eye BID thru 10/11/22. Please continue to monitor for resolution of eye infection. Assessment/Plan for indications treated with psychotropic medications: 1. Neuropathic pain: Gabapentin 200mg PO TID. Please continue to monitor for increased risk of falls, oversedation. Of note; medication was already decreasedon admission from 300mg to 200mg. 2. Insomnia: Amitriptyline 25mg PO QHS. Please continue to monitor for blurry vision, tremors, constipation. This is a Beer's Criteria medication which can increase the risk of orthostatic hypotension, drowsiness. Please continue to monitor for these side effects and consider an alternate medication if the risk of use outweighs the benefit. Note: recommendation made to decrease/stop medication, but pt requested medication be continued at time of admission. Medical chart and medication regimen reviewed. The following medication irregularities or issues were identified: No medication irregularities were identified at time of medication chart review. Date Date of Note:: 10/05/23 10/05/23 1018 <Electronically signed by Diane Hall> Diane Hall Cosigner Signature (if applicable): CC: ~ Signed [facility] Work Phone: 1([phone]) 465-854212-28-2023 Discharge summary Author Wai Neal [facility] October 04, 2023 1:25pm Note Date/Time October 04, 2023 11:24am [facility] Medical Records Department [address] [place] [address] Transfer to [facility] MR#: [id number] Acct: [id number] Name: MARLI ROSALES Rep #:[id number] : 1935 87 From: Wai Sanz PCP: Dr. Roma Grajeda, DO Status:ADM HAIM Certification of patient admission REQUIRED AT TIME OF ADMISSION. I CERTIFY THAT POST-HOSPITAL ECF SERVICES ARE REQUIRED TO BE GIVEN ON AN IN-PATIENT BASIS BECAUSE OF THE ABOVE NAMED PATIENT'S NEED FOR INTERMEDIATE CARE ON A CONTINUING BASIS FOR THE CONDITION(S) FOR WHICH HE/SHE WAS RECEIVING IN-PATIENT HOSPITAL SERVICES PRIOR TO HIS/HER TRANSFER TO THE [facility]. 10/04/23 1325<Electronically signed by Wai Neal MD> Diet Diet Order/Speech Therapy: 09/29/23 00:49 Diet: Cardiac - Heart Healthy Food consistency:: Regular Liquid Consistency:: Regular/Thin Is pt able to select menu?: Yes Routine Orders/Code Status Suppository Type: Dulcolax 10mg Suppository Frequency: Daily PRN Therapies Weight Bearing: Weight bearing as tolerated Extremity Affected:: Bilateral Lower Physical Therapy: Eval and Treat Occupational Therapy: Eval and Treat Speech Therapy: Eval and Treat Problem/Diagnosis (1) Ruptured tympanic membrane: Status: Acute Code(s): H72.90 - Unspecified perforation of tympanic membrane, unspecified ear (2) Concussion: Status: Acute Code(s): S06.0XAA - Concussion with loss of consciousness status unknown, initial encounter (3) History of recent fall: Status: Acute Code(s): Z91.81 - History of falling Allergies/Procedures Done in Hospital Allergies gluten Allergy (Verified 01/18/23 20:27) Food Allergy grass pollen-perennial rye, standar [grass poll-perennial rye,std] Allergy (Verified 01/18/23 20:27) sinus pressure house dust Adverse Reaction (Verified 01/18/23 20:27) Other SINUS PRESSURE lactose Adverse Reaction (Verified 01/18/23 20:27) Food Allergy mold Adverse Reaction (Verified 01/18/23 20:27) Other SINUS PRESSURE Type of Care/Length of Stay Estimated LOS: Convalescent Care Less Than 30 days Type of Care Needed: Skilled Rehab Potential: Good Prognosis: Good Additional Orders/Day of Discharge Day of Discharge: 10/04/23 Discharge Plan Admission Admit Date/Time: 09/28/23 23:40 Attending Provider: Wai Neal Primary Care Provider: Roma Grajeda Consulting Providers: Joni Torres; Patricio Franz Instructions Patient Instructions: ED Head Injury (Adult), ED Ruptured Eardrum, Traumatic Discharge Orders/Prescriptions Prescriptions: New ciprofloxacin HCl 0.3 % Drops 2 drp LEFT EAR BID 7 Days Qty: 0 0RF Rx Instructions: Continue for 7 days. cefdinir 300 mg Capsule 300 mg PO Q12 5 Days Qty: 0 0RF Continued trazodone 50 MG tablet 50 mg PO QHS amlodipine 5 MG tablet 5 mg PO DAILY amitriptyline 25 MG tablet 25 mg PO QHS Hold Instructions: Resume on 01/03/23. Hold until discussing with your primary care physician gabapentin 300 MG capsule 300 mg PO TID Hold Instructions: Resume on 12/27/22. Would recommend discussing this medication with your prescribing physician prior to resuming due to the increased risk of confusion and falls azelastine 1 SPRAY aerosol,spray 1 spray NASAL BID fluticasone propionate 1 SPRAY spray,suspension 1 spray NASAL BID tramadol 50 MG tablet 50 mg PO Q8H Hold Instructions: Resume on 12/27/22. Would recommend discussing this medication with your prescribing physician prior to resuming due to the increased risk of confusion and falls acetaminophen 500 MG tablet 500 mg PO Q6H PRN PRN (Reason: Pain 1-10 Or Fever) pantoprazole 40 MG tablet 40 mg PO BID levothyroxine 75 MCG tablet 75 mcg PO DAILY@0600 Qty: 30 0RF lisinopril 20 MG tablet 20 mg PO DAILY Referrals / Follow Up: Roma Grajeda DO [Primary Care Provider] - Within 2 Weeks Deangelo Scott MD [Med Staff - Active Staff] - Within 2 Weeks (Left ear TM perforation after fall.) Disposition Disposition (needs filled in before D/C Order can be placed): Home, Self Care (1) Ruptured tympanic membrane Qualifiers: Laterality: left Qualified Code(s): H72.92 - Unspecified perforation of tympanic membrane, left ear (2) Concussion Qualifiers: Encounter type: initial encounter Loss of consciousness presence/duration: unknown LOC status Qualified Code(s): S06.0XAA - Concussion with loss of consciousness status unknown, initial encounter 10/04/23 1325 <Electronically signed by Wai Neal MD> Cosigner Signature (if applicable): CC: Dr. Joni Torres DO; Dr. Roma Grajeda DO; Dr. Patricio Franz MD ~ [facility] Work Phone: [phone]) [phone] Progress note Author Patricio Franz [facility] October 03, 2023 9:12am Note Date/Time October 03, 2023 9:12am [facility] Medical Records Department [address] [place] [address] Progress Note - Hospitalist 10/03/23910 MR#: [id number] Acct: [id number] Name: MARLI ROSALES Rep #:[id number] : 1935 87 From: Patricio france MD PCP: Dr. Roma Grajeda DO Status:ADM HAIM Location: [place] [address] Subjective Subjective Doing well, no issues overnight Objective Data Objective Data Vital Signs: Vital Signs Temp Pulse Resp BP Pulse Ox O2 Del Method 98.2 F 95 17 123/63 H 98 Room Air 10/03/23 09:00 10/03/23 09:00 10/03/23 09:00 10/03/23 09:00 10/03/23 09:00 10/03/23 09:00 Oxygen Delivery Method Room Air Weight: 148 lb 2.41 oz Body Mass Index (BMI) 31.1 Intake & Output: Intake and Output for Last 24 Hours 10/02/23 10/03/23 10/04/23 03:59 03:59 03:59 Intake Total 280 / 280 620 / 620 Output Total 300 / 300 Balance -20 / -20 620 / 620 Lab / Micro Data 09/30/23 05:10 10/01/23 04:15 Physical Exam Narrative General: Alert, Oriented x3, Cooperative, No apparent distress HEENT: Atraumatic, PERRLA, EOMI, Normocephalic Oral: Moist Mucosa Neck: Supple, No JVD Lungs: Clear to auscultation, Normal air movement, No rhonchi, No wheeze, No rales Cardiovascular: Regular rate, Regular Rhythm, Normal S1, Normal S2, No murmurs Abdomen: Soft, Non Tender, Non-Distended, No Hepato-splenomegaly Extremities: No edema, Capillary Refill Less than 3 Seconds Skin: No rashes, No breakdown Musculoskeletal: No Tenderness to Palpation of Joints or Extremities Neurological: Cranial nerves II-XII grossly intact, Motor Exam 5/5 strength throughout, Sensory exam intact to light touch and pain Psych/Mental Status: Normal Affect, Appropriate Assessment & Plan Assessment/Plan (1) Ruptured tympanic membrane: QUALIFIERS: Laterality: left Qualified Code(s): H72.92 - Unspecified perforation of tympanic membrane, left ear (2) Concussion: QUALIFIERS: Encounter type: initial encounter Loss of consciousness presence/duration: unknown LOC status Qualified Code(s): S06.0XAA- Concussion with loss of consciousness status unknown, initial encounter (3) History of recent fall: PLAN: Plan 1. Closed head injury after mechanical fall with continued headache and probable concussion ? Continue with monitoring and will treat headache with Tylenol ? PT/OT, likely need SNF on discharge ? She does have a ruptured left tympanic membrane seen on admission started withCipro drops will need outpatient follow-up ? Awaiting pre-CERT 2. UTI from E. coli ? Continue with p.o. cefdinir for 3 to 5 days 3. HTN ? Blood pressures are stable ? Can resume her home blood pressure medications ? We will monitor make adjustments as necessary 4. Hypothyroidism ? Stable ? Continue Synthroid 5. GERD ? Stable ? Continue with PPI 6. Anxiety/depression ? Stable ? Continue with her home medications DVT: Heparin Charges/Coding Visit Charges Inpatient E&M: 38297 Subs Hosp L2 10/03/23 0912 <Electronically signed by Patricio Franz MD> Cosigner Signature (if applicable): CC: ~ Signed [facility] Work Phone: 1(991) 605-515312-26-2023 Progress note Author Patricio Franz [facility] October 02, 2023 9:26am Note Date/Time October 02, 2023 9:26am [facility] Medical Records Department [address] [place] [address] Progress Note - Hospitalist 10/02/23923 MR#: [id number] Acct: [id number] Name: MALRI ROSALES Rep #:[id number] : 1935 87 From: Patricio france MD PCP: Dr. Roma Grajeda, DO Status:ADM HAIM Location: [place] [address] Subjective Subjective Doing well, no issues overnight Objective Data Objective Data Vital Signs: Vital Signs Temp Pulse Resp BP Pulse Ox O2 Del Method 97.8 F 86 17 133/84 H 98 Room Air 10/02/23 02:30 10/02/23 02:30 10/02/23 02:30 10/02/23 02:30 10/02/23 02:30 10/02/23 02:30 Oxygen Delivery Method Room Air Weight: 148 lb 2.41 oz Body Mass Index (BMI) 31.1 Intake & Output: Intake and Output for Last 24 Hours 10/01/23 10/02/23 10/03/23 03:59 03:59 03:59 Intake Total 1255 / 1255 280 / 280 120 / 120 Output Total 300 / 300 Balance 1255 / 1255 -20 / -20 120 / 120 Lab / Micro Data 09/30/23 05:10 10/01/23 04:15 Physical Exam Narrative General: Alert, Oriented x3, Cooperative, No apparent distress HEENT: Atraumatic, PERRLA, EOMI, Normocephalic Oral: Moist Mucosa Neck: Supple, No JVD Lungs: Clear to auscultation, Normal air movement, No rhonchi, No wheeze, No rales Cardiovascular: Regular rate, Regular Rhythm, Normal S1, Normal S2, No murmurs Abdomen: Soft, Non Tender, Non-Distended, No Hepato-splenomegaly Extremities: No edema, Capillary Refill Less than 3 Seconds Skin: No rashes, No breakdown Musculoskeletal: No Tenderness to Palpation of Joints or Extremities Neurological: Cranial nerves II-XII grossly intact, Motor Exam 5/5 strength throughout, Sensory exam intact to light touch and pain Psych/Mental Status: Normal Affect, Appropriate Assessment & Plan Assessment/Plan (1) Ruptured tympanic membrane: QUALIFIERS: Laterality: left Qualified Code(s): H72.92 - Unspecified perforation of tympanic membrane, left ear (2) Concussion: QUALIFIERS: Encounter type: initial encounter Loss of consciousness presence/duration: unknown LOC status Qualified Code(s): S06.0XAA- Concussion with loss of consciousness status unknown, initial encounter (3) History of recent fall: PLAN: Plan 1. Closed head injury after mechanical fall with continued headache and probable concussion ? Continue with monitoring and will treat headache with Tylenol ? PT/OT, likely need SNF on discharge ? She does have a ruptured left tympanic membrane seen on admission started withCipro drops will need outpatient follow-up 2. UTI from E. coli ? Continue with p.o. cefdinir for 3 to 5 days 3. HTN ? Blood pressures are stable ? Can resume her home blood pressure medications ? We will monitor make adjustments as necessary 4. Hypothyroidism ? Stable ? Continue Synthroid 5. GERD ? Stable ? Continue with PPI 6. Anxiety/depression ? Stable ? Continue with her home medications DVT: Heparin Charges/Coding Visit Charges Inpatient E&M: 96249 Subs Hosp L2 10/02/23 0926 <Electronically signed by Patricio Franz MD> Cosigner Signature (if applicable): CC: ~ Signed [facility] Work Phone: 1(918) 960-446012-25-2023 Progress note Author Patricio Franz [facility] October 01, 2023 8:38am Note Date/Time October 01, 2023 8:38am [facility] Medical Records Department [address] [place] [address] Progress Note - Hospitalist 10/01/2336 MR#: [id number] Acct: [id number] Name: MARLI ROSALES Rep #:[id number] : 1935 87 From: Patricio france MD PCP: Dr. Roma Grajeda, DO Status:ADM HAIM Location: MS3 OT080-5 Subjective Subjective Doing well, no issues overnight. Denies any significant headache at the moment but did get a little bit dizzy with sitting up which resolved fairly quickly. She states that she does routinely get dizzy with changes in position. Objective Data Objective Data Vital Signs: Vital Signs Temp Pulse Resp BP Pulse Ox O2 Del Method 97.3 F L 70 18 149/71 H 100 Room Air 10/01/23 08:16 10/01/23 08:16 10/01/23 08:16 10/01/23 08:16 10/01/23 08:16 10/01/23 08:16 Oxygen Delivery Method Room Air Weight: 149 lb 14.629 oz Body Mass Index (BMI) 31.4 Intake & Output: Intake and Output for Last 24 Hours 09/30/23 10/01/23 10/02/23 03:59 03:59 03:59 Intake Total 2072.5 / 2072.5 1255 / 1255 280 / 280 Output Total 2750 / 2750 300 / 300 Balance -677.5 / -677.5 1255 / 1255 -20 / -20 Lab / Micro Data 09/30/23 05:10 10/01/23 04:15 Labs: Laboratory Results - last 24 hr 10/01/23 04:15: Sodium 140, Potassium 3.9, Chloride 111 H, Carbon Dioxide 25.0, Anion Gap 4 L, BUN 11, Creatinine 0.62, Estim Creat Clear Calc 43.35, Est GFR (MDRD) Af Amer 118, Est GFR (MDRD) Non-Af 98, BUN/Creatinine Ratio 17.9, [id number], Calcium 9.0 Physical Exam Narrative General: Alert, Oriented x3, Cooperative, No apparent distress HEENT: Atraumatic, PERRLA, EOMI, Normocephalic Oral: Moist Mucosa Neck: Supple, No JVD Lungs: Clear to auscultation, Normal air movement, No rhonchi, No wheeze, No rales Cardiovascular: Regular rate, Regular Rhythm, Normal S1, Normal S2, No murmurs Abdomen: Soft, Non Tender, Non-Distended, No Hepato-splenomegaly Extremities: No edema, Capillary Refill Less than 3 Seconds Skin: No rashes, No breakdown Musculoskeletal: No Tenderness to Palpation of Joints or Extremities Neurological: Cranial nerves II-XII grossly intact, Motor Exam 5/5 strength throughout, Sensory exam intact to light touch and pain Psych/Mental Status: Normal Affect, Appropriate Assessment & Plan Assessment/Plan (1) Ruptured tympanic membrane: QUALIFIERS: Laterality: left Qualified Code(s): H72.92 - Unspecified perforation of tympanic membrane, left ear (2) Concussion: QUALIFIERS: Encounter type: initial encounter Loss of consciousness presence/duration: unknown LOC status Qualified Code(s): S06.0XAA- Concussion with loss of consciousness status unknown, initial encounter (3) History of recent fall: PLAN: Plan 1. Closed head injury after mechanical fall with continued headache and probable concussion ? Continue with monitoring and will treat headache with Tylenol ? PT/OT ? She does have a ruptured left tympanic membrane seen on admission started withCipro drops will need outpatient follow-up 2. HTN ? Blood pressures are stable ? Can resume her home blood pressure medications ? We will monitor make adjustments as necessary 3. Hypothyroidism ? Stable ? Continue Synthroid 4. GERD ? Stable ? Continue with PPI 5. Anxiety/depression ? Stable ? Continue with her home medications DVT: Heparin Charges/Coding Visit Charges Inpatient E&M: 38099 Subs Hosp L2 10/01/23 0838 <Electronically signed by Patricio Franz MD> Cosigner Signature (if applicable): CC: ~ Signed [facility] Work Phone: 1(957) 204-904312-24-2023 Progress note Author Patricio Franz [facility] September 30, 2023 8:51am Note Date/Time September 30, 2023 8:52am [facility] Medical Records Department [address] [place] [address] Progress Note - Hospitalist 09/30/23 0850 MR#: [id number] Acct: [id number] Name: MARLI ROSALES Rep #:[id number] : 1935 87 From: Patricio france MD PCP: Dr. Roma Grajeda, DO Status:ADM HAIM Location: MS3 KJ379-2 Subjective Subjective Still drowsy but she was able to get up yesterday with physical therapy but was unable to do much, will likely need placement Objective Data Objective Data Vital Signs: Vital Signs Temp Pulse Resp BP Pulse Ox O2 Del Method 97.5 F L 83 16 138/94 H 97 Room Air 09/30/23 03:00 09/30/23 03:00 09/30/23 03:00 09/30/23 03:00 09/30/23 03:00 09/30/23 03:00 Oxygen Delivery Method Room Air Weight: 147 lb 14.883 oz Body Mass Index (BMI) 31.0 Intake & Output: Intake and Output for Last 24 Hours 09/29/23 09/30/23 10/01/23 03:59 03:59 03:59 Intake Total 2072.5 / 2072.5 200 / 200 Output Total 2750 / 2750 Balance -677.5 / -677.5 200 / 200 Lab / Micro Data 09/30/23 05:10 09/30/23 05:10 Labs: Laboratory Results - last 24 hr 09/30/23 05:10: WBC 5.7, RBC 3.48 L, Hgb 10.5 L, Hct 34.4 L, MCV 98.9, MCH 30.2,MCHC 30.5 L, RDW Std Deviation 46.6 H, RDW Coeff of Laury 13.1, Plt Count 273, MPV9.0, Immature Gran % (Auto) 0.700, Neut % (Auto) 65.8, Lymph % (Auto) 19.3, [place]% (Auto) 9.3, Eos % (Auto) 4.0, Baso % (Auto) 0.9, Absolute Neuts (auto) 3.8, Absolute Lymphs (auto) 1.10, Nucleated RBC % 0, Sodium 142, Potassium 3.4 L, Chloride 113 H, Carbon Dioxide 24.0, Anion Gap 5, BUN 11, Creatinine 0.60, EstimCreat Clear Calc 41.93, Est GFR (MDRD) Af Amer 121, Est GFR (MDRD) Non-Af 100, BUN/Creatinine Ratio 18.3, Glucose 91, Calcium 8.3 L Physical Exam Narrative General: Alert but tired, Oriented x3, Cooperative, No apparent distress HEENT: Atraumatic, PERRLA, EOMI, Normocephalic Oral: Moist Mucosa Neck: Supple, No JVD Lungs: Clear to auscultation, Normal air movement, No rhonchi, No wheeze, No rales Cardiovascular: Regular rate, Regular Rhythm, Normal S1, Normal S2, No murmurs Abdomen: Soft, Non Tender, Non-Distended, No Hepato-splenomegaly Extremities: No edema, Capillary Refill Less than 3 Seconds Skin: No rashes, No breakdown Musculoskeletal: No Tenderness to Palpation of Joints or Extremities Neurological: Cranial nerves II-XII grossly intact, Motor Exam 5/5 strength throughout, Sensory exam intact to light touch and pain Psych/Mental Status: Normal Affect, Appropriate Assessment & Plan Assessment/Plan (1) Ruptured tympanic membrane: QUALIFIERS: Laterality: left Qualified Code(s): H72.92 - Unspecified perforation of tympanic membrane, left ear (2) Concussion: QUALIFIERS: Encounter type: initial encounter Loss of consciousness presence/duration: unknown LOC status Qualified Code(s): S06.0XAA- Concussion with loss of consciousness status unknown, initial encounter (3) History of recent fall: PLAN: Plan 1. Closed head injury after mechanical fall with continued headache and probable concussion ? Continue with monitoring and will treat headache with Tylenol ? PT/OT ? She does have a ruptured left tympanic membrane seen on admission started withCipro drops will need outpatient follow-up 2. HTN ? Blood pressures are stable ? Can resume her home blood pressure medications ? We will monitor make adjustments as necessary 3. Hypothyroidism ? Stable ? Continue Synthroid 4. GERD ? Stable ? Continue with PPI 5. Anxiety/depression ? Stable ? Continue with her home medications DVT: Heparin Charges/Coding Visit Charges Inpatient E&M: 16641 Subs Hosp L2 09/30/23 0851 <Electronically signed by Patricio Franz MD> Cosigner Signature (if applicable): CC: ~ Signed [facility] Work Phone: 1(346) 166-509812-23-2023 Progress note Author Patricio Franz [facility] September 29, 2023 9:42am Note Date/Time September 29, 2023 9:42am [facility] Medical Records Department [address] [place] [address] Progress Note - Hospitalist 09/29/23 0939 MR#: [id number] Acct: [id number] Name: MARLI ROSALES Rep #:[id number] : 1935 87 From: Patricio france MD PCP: Dr. Roma Grajeda, DO Status:ADM HAIM Location: MS3 TN830-7 Subjective Subjective A little groggy this morning unclear if it is due to the concussion or just being tired Objective Data Objective Data Vital Signs: Vital Signs Temp Pulse Resp BP Pulse Ox O2 Del Method 97.6 F L 72 16 140/64 H 94 Room Air 09/29/23 06:11 09/29/23 06:11 09/29/23 06:11 09/29/23 06:11 09/29/23 07:12 09/29/23 07:12 Oxygen Delivery Method Room Air Weight: 144 lb 15.968 oz Body Mass Index (BMI) 30.4 Intake & Output: Intake and Output for Last 24 Hours 09/28/23 09/29/23 09/30/23 03:59 03:59 03:59 Output Total 1050 / 1050 Balance -1050 / -1050 Lab / Micro Data 09/29/23 06:56 09/29/23 06:56 Labs: Laboratory Results - last 24 hr 09/28/23 17:50: WBC 5.9, RBC 3.61 L, Hgb 11.1 L, Hct 35.6 L, MCV 98.6, MCH 30.7,MCHC 31.2 L, RDW Std Deviation 46.4 H, RDW Coeff of Laury 12.9, Plt Count 285, MPV9.0, Immature Gran % (Auto) 0.500, Neut % (Auto) 69.6, Lymph % (Auto) 18.8 L, [place] % (Auto) 7.6, Eos % (Auto) 2.7, Baso % (Auto) 0.8, Absolute Neuts (auto) 4.1, Absolute Lymphs (auto) 1.11, Nucleated RBC % 0, Sodium 137, Potassium 4.3, Chloride 106, Carbon Dioxide 28.0, Anion Gap 3 L, BUN 18, Creatinine 0.98, EstimCreat Clear Calc 43.46, Est GFR (MDRD) Af Amer 69, Est GFR (MDRD) Non-Af 57 L, BUN/Creatinine Ratio 18.4, Glucose 100, Calcium 9.7, Troponin I High Sens 8 09/28/23 18:55: Urine Color Yellow, Urine Clarity Clear, Urine pH 8.0, Ur Specific [place] 1.010, Urine Protein Negative, Urine Glucose (UA) Normal, Urine Ketones Negative, Urine Occult Blood 10 H, Urine Nitrite Negative, Urine Bilirubin Negative, Urine Urobilinogen Normal, Ur Leukocyte Esterase 100 H, Urine RBC 0 SEEN, Urine WBC 0-5 SEEN, Ur Squamous Epith Cells 0 SEEN, Urine Bacteria 2+, Urine Mucus 0 SEEN 09/28/23 20:16: Troponin I High Sens 10 09/29/23 06:56: WBC 5.7, RBC 3.48 L, Hgb 10.5 L, Hct 33.5 L, MCV 96.3, MCH 30.2,MCHC 31.3 L, RDW Std Deviation 45.3 H, RDW Coeff of Laury 12.9, Plt Count 276, MPV9.0, Immature Gran % (Auto) 0.500, Neut % (Auto) 72.7 H, Lymph % (Auto) 15.7 L, [place] % (Auto) 7.9, Eos % (Auto) 2.5, Baso % (Auto) 0.7, Absolute Neuts (auto) 4.1, Absolute Lymphs (auto) 0.89, Nucleated RBC % 0, Sodium 138, Potassium 3.5, Chloride 108 H, Carbon Dioxide 27.0, Anion Gap 3 L, BUN 12, Creatinine 0.66, Estim Creat Clear Calc 41.93, Est GFR (MDRD) Af Amer 110, Est GFR (MDRD) Non-Af 91, BUN/Creatinine Ratio 18.3, Glucose 88, Calcium 8.8, Phosphorus 2.9, Magnesium 2.2, Total Bilirubin 0.50, AST 15, ALT 14, Alkaline Phosphatase 77, Total Protein 6.5, Albumin 3.0 L, Globulin 3.5, Albumin/Globulin Ratio 0.9, TSH 3.10 Radiography Diagnostic Testing: Radiology Impression Brain CT 09/28/23 17:33 IMPRESSION: undefined Cervical Spine CT 09/28/23 17:33 IMPRESSION: undefined Chest X-Ray 09/28/23 18:14 IMPRESSION: No acute pulmonary disease. Electronically Signed: Jean Garcia MD at 18:36 EST , Physical Exam Narrative General: Alert but tired, Oriented x3, Cooperative, No apparent distress HEENT: Atraumatic, PERRLA, EOMI, Normocephalic Oral: Moist Mucosa Neck: Supple, No JVD Lungs: Clear to auscultation, Normal air movement, No rhonchi, No wheeze, No rales Cardiovascular: Regular rate, Regular Rhythm, Normal S1, Normal S2, No murmurs Abdomen: Soft, Non Tender, Non-Distended, No Hepato-splenomegaly Extremities: No edema, Capillary Refill Less than 3 Seconds Skin: No rashes, No breakdown Musculoskeletal: No Tenderness to Palpation of Joints or Extremities Neurological: Cranial nerves II-XII grossly intact, Motor Exam 5/5 strength throughout, Sensory exam intact to light touch and pain Psych/Mental Status: Normal Affect, Appropriate Assessment & Plan Assessment/Plan (1) Ruptured tympanic membrane: QUALIFIERS: Laterality: left Qualified Code(s): H72.92 - Unspecified perforation of tympanic membrane, left ear (2) Concussion: QUALIFIERS: Encounter type: initial encounter Loss of consciousness presence/duration: unknown LOC status Qualified Code(s): S06.0XAA- Concussion with loss of consciousness status unknown, initial encounter (3) History of recent fall: PLAN: Plan 1. Closed head injury after mechanical fall with continued headache and probable concussion ? Continue with monitoring and will treat headache with Tylenol ? PT/OT ? She does have a ruptured left tympanic membrane seen on admission started withCipro drops will need outpatient follow-up 2. HTN ? Blood pressures are stable ? Can resume her home blood pressure medications ? We will monitor make adjustments as necessary 3. Hypothyroidism ? Stable ? Continue Synthroid 4. GERD ? Stable ? Continue with PPI 5. Anxiety/depression ? Stable ? Continue with her home medications DVT: Heparin Charges/Coding Visit Charges Inpatient E&M: 21737 Subs Hosp L2 09/29/23 0942 <Electronically signed by Patricio Franz MD> Cosigner Signature (if applicable): CC: ~ Signed [facility] Work Phone: [phone]) 988-559212-23-2023 History and physical note Author Joni An [facility] September 29, 2023 7:03am Note Date/Time September 28, 2023 10:54pm [facility] Medical Records Department [address] [place] [address] H&P Exam - Hospitalist 09/28/232252 MR#: [id number] Acct: [id number] Name: MARLI ROSALES Rep #:[id number] : 1935 87 From: Joni Jaramillo DO PCP: Dr. Roma Grajeda, DO Status:ADM HAIM [id number] - General General Date of Admission: 09/28/23 Date of Service: 09/28/23 Chief Complaint: Headache, confusion, dizziness and unsteady gait HPI Narrative MARLI ROSALES, is a 87 F with a past medical history of essential hypertension, hypothyroidism, obesity; with BMI 30.8 this admission, remote history of rheumatic fever, history of celiac disease, GERD; with history of hiatal hernia and peptic ulcer disease with GI bleed, overactive bladder, history of recurrentUTIs, depression, osteoarthritis; with chronic neck pain (followed by pain management with frequent steroid injections) and history of multiple back surgeries, knee surgeries and shoulder surgeries plus osteoporosis who presents to [facility] ER complaining of headache, confusion and dizziness with inability to ambulate due to unsteady gait. Mrs. Rosales reports her symptoms began approximately 1 day prior to admission when she felt in her kitchen on the evening of 09/27/2023 with the patient not recalling exactly whathappened until she found herself on her kitchen floor with her not thereto witness the event but he was also at home. She believes she was on the floorfor approximately 15 minutes but she is not exactly sure. EMS was then called and they came to evaluate her but they detected no acute severe injury so she was not transported at that time. Then earlier on 09/28/2023 she has been in the bed all day with a generalized tension type headache but she denies focal neurologic deficits or slurred speech. She denies associated fever, chills, vomiting or shortness of breath but she does admit to intermittent nausea. In the ER her CT scan of the head was negative for acute pathologic changes but shewas noted to have a ruptured left tympanic membrane with clinical evidence of concussion complicated by polypharmacy and generalized weakness with ambulatory dysfunction that has worsened since her fall and she was then admitted to the general medical floor under observation status for ongoing care for stay that isexpected to be less than 48 hours. [facility] Medical History (Updated 09/29/23 @ 07:[address] Joni Torres, DO) Alcohol use Anemia Anxiety Celiac disease Chronic pain Depression Dietary restriction Gastric reflux GERD (gastroesophageal reflux disease) GI bleed Hearing loss, left Hearing loss, right History of depression History of GI bleed History of hiatal hernia History of rheumatic fever History of stress test Hoarseness Hypertension Hypothyroidism Non-smoker Osteoporosis Osteoporosis Thyroid disease Walker as ambulation aid Wears hearing aid Wears hearing aid in both ears Home Medications amitriptyline 25 mg tablet 25 mg PO QHS 08/16/20 [History Last Taken 12/07/22] amlodipine 5 mg tablet 5 mg PO DAILY BP 08/16/20 [History Last Taken 12/06/22] azelastine 137 mcg (0.1 %) nasal spray aerosol 1 spray NASAL BID SINUS 08/16/20 [History Last Taken 12/07/22] fluticasone propionate 50 mcg/actuation nasal spray,suspension 1 spray NASAL BIDallergies 08/16/20 [History Last Taken 12/07/22] 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 08/16/20 [History Last Taken 12/08/22] trazodone 50 mg tablet 50 mg PO QHS sleep 08/16/20 [History Last Taken 12/07/22] tramadol 50 mg tablet 50 mg PO Q8H 11/09/20 [History Last Taken 12/08/22] acetaminophen 500 mg tablet 500 mg PO Q6H PRN PRN Pain 1-10 Or Fever 11/22/20 [History Last Taken 12/07/22] pantoprazole 40 mg tablet,delayed release 40 mg PO BID GERD 11/22/20 [History Last Taken 12/07/22] levothyroxine 75 mcg tablet 75 mcg PO DAILY@0600 #30 tabs 11/25/20 [Rx Last Taken 12/08/22] lisinopril 20 mg tablet 20 mg PO DAILY 01/30/21 [History Last Taken 12/07/22] ondansetron 4 mg disintegrating tablet 4 mg PO Q8H PRN PRN Nausea #14 tabs 09/28/23 [Rx Last Taken Unknown] Allergy/AdvReac Type Severity Reaction Status Date / Time gluten Allergy Food Verified 01/18/23 20:27 Allergy grass pollen-perennial rye, Allergy sinus Verified 01/18/23 20:27 standar pressure [grass poll-perennial rye,std] house dust AdvReac Other Verified 01/18/23 20:27 lactose AdvReac Food Verified 01/18/23 20:27 Allergy mold AdvReac Other Verified 01/18/23 20:27 Surgical History History of back surgery History of bilateral salpingo-oophorectomy (BSO) History of biopsy of bladder History of cholecystectomy History of cystostomy History of hysterectomy History of right knee surgery History of shoulder surgery Social History Smoking Status: Never smoker alcohol intake: never ROS ROS Narrative Review of systems: Constitutional: Patient denies fevers, chills or night sweats. Eyes: Patient denies blurry vision or discharge from eyes. ENT: Patient denies ear pain, sore throat or rhinorrhea. Cardiovascular: Patient denies chest pain, chest pressure or palpitations. Respiratory: Patient denies shortness of breath or cough. Gastrointestinal: Patient admits to nausea but denies vomiting or abdominal pain. Genitourinary: Patient denies dysuria, hematuria or urinary frequency. Musculoskeletal: Patient admits to chronic neck pain. Integumentary: Patient denies abscess, abrasions or rash. Neurologic: Patient admits to headache but denies paresthesias or focal neurologic weakness. Psychiatric: Patient denies uncontrolled depression or anxiety. Endocrine: Patient denies polyuria, polydipsia or polyphagia. Allergic: Patient denies lip swelling, tongue swelling or urticaria. Hematologic: Patient denies easy bleeding or easy bruisability. 14 point review system otherwise negative except for positives noted above in HPI. Vital Signs Vital Signs Vital Signs: 09/28/23 16:44 09/28/23 17:02 09/28/23 17:50 Temperature 97.8 F Temperature Source Temporal Pulse Rate 83 Pulse Rate [Lying] Pulse Rate [Sitting (for 1 minute prior to obtaining)] Respiratory Rate 16 Respiratory Effort Normal Respiratory Depth Normal Respiratory Pattern Normal Blood Pressure 157/72 H Blood Pressure [Lying] Blood Pressure [Sitting (for 1 minute prior to obtaining)] Blood Pressure Mean 100 Blood Pressure Mean [Lying] Blood Pressure Mean [Sitting (for 1 minute prior to obtaining)] Pulse Ox 100 96 Oxygen Delivery Method Room Air Room Air Room Air 09/28/23 19:09 09/28/23 21:20 09/28/23 22:08 Temperature 98 F 98.1 F Temperature Source Oral Pulse Rate 78 82 82 Pulse Rate [Lying] Pulse Rate [Sitting (for 1 minute prior to obtaining)] Respiratory Rate 12 16 16 Respiratory Effort Respiratory Depth Respiratory Pattern Blood Pressure 139/70 H 133/80 H 146/71 H Blood Pressure [Lying] Blood Pressure [Sitting (for 1 minute prior to obtaining)] Blood Pressure Mean 93 97 96 Blood Pressure Mean [Lying] Blood Pressure Mean [Sitting (for 1 minute prior to obtaining)] Pulse Ox 98 98 Oxygen Delivery Method Room Air Room Air 09/28/23 22:23 Temperature Temperature Source Pulse Rate Pulse Rate [Lying] 87 Pulse Rate [Sitting (for 1 minute prior to obtaining)] 89 Respiratory Rate Respiratory Effort Respiratory Depth Respiratory Pattern Blood Pressure Blood Pressure [Lying] 158/83 H Blood Pressure [Sitting (for 1 minute prior to obtaining)] 155/91 H Blood Pressure Mean Blood Pressure Mean [Lying] 108 Blood Pressure Mean [Sitting (for 1 minute prior to obtaining)] 112 Pulse Ox Oxygen Delivery Method Weight Weight: 147 lb 4.8 oz Body Mass Index (BMI) 30.7 Physical Exam Const alert, oriented x3, no apparent distress and average body habitus General Appearance: cooperative HEENT normocephalic, head/scalp atraumatic, hearing grossly normal bilaterally, moist oral mucous membranes and oropharynx normal HEENT Narrative: Patient was noted to have a ruptured left tympanic membrane. Eyes PERRL, EOMs intact bilaterally and conjunctivae normal Neck no lymphadenopathy and supple Resp normal respiratory effort, no retractions, no use of accessory muscles and clearto auscultation bilaterally Cardio regular rate and regular rhythm GI normal to inspection, nondistended, normoactive bowel sounds, soft to palpation,non-tender and non-distended Extremity normal to inspection, full ROM and no clubbing, cyanosis or edema Skin Skin Narrative: Patient has no evidence of rash at this time. Neuro oriented x3, CN's II-XII intact bilaterally, moves all extremities and no focal motor deficits Sensorium / Orientation: awake, alert, oriented to person, oriented to place andoriented to time Motor Exam: strength 5/5 throughout Psych affect normal Results Medical Records Data Attestation: I reviewed the patient's medical records Lab / Micro Data Attestation: I reviewed the patient's lab results. 09/28/23 17:50 09/28/23 17:50 Labs: Laboratory Results - last 24 hr 09/28/23 17:50: WBC 5.9, RBC 3.61 L, Hgb 11.1 L, Hct 35.6 L, MCV 98.6, MCH 30.7,MCHC 31.2 L, RDW Std Deviation 46.4 H, RDW Coeff of Laury 12.9, Plt Count 285, MPV9.0, Immature Gran % (Auto) 0.500, Neut % (Auto) 69.6, Lymph % (Auto) 18.8 L, [place] % (Auto) 7.6, Eos % (Auto) 2.7, Baso % (Auto) 0.8, Absolute Neuts (auto) 4.1, Absolute Lymphs (auto) 1.11, Nucleated RBC % 0, Sodium 137, Potassium 4.3, Chloride 106, Carbon Dioxide 28.0, Anion Gap 3 L, BUN 18, Creatinine 0.98, EstimCreat Clear Calc 43.46, Est GFR (MDRD) Af Amer 69, Est GFR (MDRD) Non-Af 57 L, BUN/Creatinine Ratio 18.4, Glucose 100, Calcium 9.7, Troponin I High Sens 8 09/28/23 18:55: Urine Color Yellow, Urine Clarity Clear, Urine pH 8.0, Ur Specific [place] 1.010, Urine Protein Negative, Urine Glucose (UA) Normal, UrineKetones Negative, Urine Occult Blood 10 H, Urine Nitrite Negative, Urine Bilirubin Negative, Urine Urobilinogen Normal, Ur Leukocyte Esterase 100 H, Urine RBC 0 SEEN, Urine WBC 0-5 SEEN, Ur Squamous Epith Cells 0 SEEN, Urine Bacteria 2+, Urine Mucus 0 SEEN 09/28/23 20:16: Troponin I High Sens 10 Imagaing Radiology [address] CT 09/28/23 17:33 IMPRESSION: undefined Cervical Spine CT 09/28/23 17:33 IMPRESSION: undefined Chest X-Ray 09/28/23 18:14 IMPRESSION: No acute pulmonary disease. Electronically Signed: Jean Garcia MD at 18:36 EST , Assessment & Plan Assessment/Plan (1) Ruptured tympanic membrane: QUALIFIERS: Laterality: left Qualified Code(s): H72.92 - Unspecified perforation of tympanic membrane, left ear (2) Concussion: QUALIFIERS: Encounter type: initial encounter Loss of consciousness presence/duration: unknown LOC status Qualified Code(s): S06.0XAA- Concussion with loss of consciousness status unknown, initial encounter (3) History of recent fall: PLAN: Plan 1. Closed head injury after mechanical fall with persistent headache and suspected concussion - Admit to general medical floor under observation status. Give Tylenol as needed pain or fever. Minimize PROFESSIONAL SERVICES CONSULTANT-active medications. PT/OT and case management to consult and treat on rounds in the a.m. with help appreciated in advance. 2. Ruptured left tympanic membrane likely precipitating #1 - Start treatment with Cipro otic drops and monitor for improvement. 3. Osteoarthritis; with chronic neck pain and history of multiple back surgeries, knee surgeries and shoulder surgeries plus osteoporosis complicating #1 & #2 - Noted. Since her tramadol dose has been cut back and patient does nottolerate steroids well we will treat with Toradol see if this agent will be moreeffective in controlling her symptoms without causing untoward side effects. 4. Polypharmacy; with patient on scheduled tramadol 50 mg p.o. 3 times daily scheduled with ongoing generalized weakness and impaired balance causing persistent ambulatory dysfunction arising from #1 - #3 - Minimize PROFESSIONAL SERVICES CONSULTANT-active medications and decrease tramadol to twice daily and monitor for improvement.. 5. Essential hypertension - Continue home medications as previous plus give as needed IV hydralazine for systolic blood pressure greater than or equal to 160 mmHg. 6. Hypothyroidism - Resume Synthroid and check TSH. 7. Obesity; with BMI 30.8 this admission - Weight loss will be recommended. 8. Remote history of rheumatic fever as a child - Noted. 9. History of celiac disease - Stable. 10. GERD; with history of hiatal hernia and peptic ulcer disease with GI bleed - Resume PPI as previous. 11. Overactive bladder - Stable. 12. History of recurrent UTIs - Noted UA negative for infection this admission. 13. Depression - Continue home regimen. 14. DVT prophylaxis - Heparin 5,000 units SQ twice daily plus SCDs. Total time: Approximately 45 minutes. Charges/Coding Visit Charges OBSV E&M: 69991 Observ/hosp same date L1 09/29/23 0703 <Electronically signed by Joni Torres DO> Cosigner Signature (if applicable): CC: Dr. Joni Torres DO; Dr. Roma Grajeda DO~ Signed [facility] Work Phone: 1(546) 858-586712-23-2023 Discharge summary Author Nelson Holman [facility] September 28, 2023 11:59pm Note Date/Time September 28, 2023 5:36pm [facility] Medical Records Department [address] [place] [id number] Emergency Department Summary 09/28/23 MR#: [id number] Acct: [id number] Name: MARLI ROSALES Rep #:[id number] : 1935 [id number] From: Nelson Holman DO PCP: Dr. Roma Grajeda DO Status:REG ER Location: ED ADDENDUM by Dr. Nelson Holman DO on 09/28/23 at 2359 We attempted to get the patient up with her family however the patient was very lightheaded with this. Orthostatic vital signs again were negative but the patient is symptomatic so we will have her admitted to the hospital. Hospitalist was informed 09/28/23 2509<Electronically signed by Nelson Holman DO> Cosigner Signature (if applicable): cc: Dr. Roma Grajeda DO ~* Signed HPI History of Present Illness Chief Complaint: Head Injury Narrative Narrative: 87-year-old female presenting with headache and confusion. Patient states that she does not recall what happened to her last night but she was in the kitchen last thing she can recall and the next and she knows she was on the floor. EMS was called and came to evaluate her but she states they did not look in her eyesor examine her and they just asked if she was okay at that she was awake they let her go. She states her was home but did not witness the event. Shestates has been in bed all day with a headache. She was able to ambulate into the kitchen and make some food but her head was getting worse. She also states she has chronic neck pain due to arthritis and is supposed to get injection withDr. Cem on 02 October. She also has nausea. Patient denies any chest painor shortness of breath. She denies any known symptoms before she went out last night. She believes she was unconscious for about 15 minutes. Her is not here in the emergency room and she states he is waiting in the car outside. [facility] Medical History Alcohol use Celiac disease Dietary restriction Gastric reflux History of depression History of GI bleed History of hiatal hernia History of rheumatic fever History of stress test Hoarseness Hypertension Non-smoker Osteoporosis Thyroid disease Walker as ambulation aid Wears hearing aid Home Medications amitriptyline 25 mg tablet 25 mg PO QHS 08/16/20 [History Last Taken 12/07/22] amlodipine 5 mg tablet 5 mg PO DAILY BP 08/16/20 [History Last Taken 12/06/22] azelastine 137 mcg (0.1 %) nasal spray aerosol 1 spray NASAL BID SINUS 08/16/20 [History Last Taken 12/07/22] fluticasone propionate 50 mcg/actuation nasal spray,suspension 1 spray NASAL BIDallergies 08/16/20 [History Last Taken 12/07/22] 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 08/16/20 [History Last Taken 12/08/22] trazodone 50 mg tablet 50 mg PO QHS sleep 08/16/20 [History Last Taken 12/07/22] tramadol 50 mg tablet 50 mg PO Q8H 11/09/20 [History Last Taken 12/08/22] acetaminophen 500 mg tablet 500 mg PO Q6H PRN PRN Pain 1-10 Or Fever 11/22/20 [History Last Taken 12/07/22] pantoprazole 40 mg tablet,delayed release 40 mg PO BID GERD 11/22/20 [History Last Taken 12/07/22] levothyroxine 75 mcg tablet 75 mcg PO DAILY@0600 #30 tabs 11/25/20 [Rx Last Taken 12/08/22] lisinopril 20 mg tablet 20 mg PO DAILY 01/30/21 [History Last Taken 12/07/22] ondansetron 4 mg disintegrating tablet 4 mg PO Q8H PRN PRN Nausea #14 tabs 09/28/23 [Rx Last Taken Unknown] Allergy/AdvReac Type Severity Reaction Status Date / Time gluten Allergy Food Verified 01/18/23 20:27 Allergy grass pollen-perennial rye, Allergy sinus Verified 01/18/23 20:27 standar pressure [grass poll-perennial rye,std] house dust AdvReac Other Verified 01/18/23 20:27 lactose AdvReac Food Verified 01/18/23 20:27 Allergy mold AdvReac Other Verified 01/18/23 20:27 Surgical History History of back surgery History of bilateral salpingo-oophorectomy (BSO) History of biopsy of bladder History of cholecystectomy History of cystostomy History of hysterectomy History of right knee surgery History of shoulder surgery Social History Smoking Status: Never smoker alcohol intake: never ROS ROS ED ROS Narrative Dizziness Constitutional Constitutional ED: Denies chills, fever(s) or sweats Eyes Eyes: Denies blurry vision or change in vision ENT ENT ED: Denies ear pain or sore throat Cardiovascular Cardiovascular: Denies chest pain, palpitations or racing heartbeat Respiratory/Chest Respiratory/Chest: Denies cough, dyspnea or sputum Gastrointestinal Gastrointestinal: Reports nausea; Denies abdominal pain, constipation, diarrhea or vomiting Genitourinary Genitourinary ED: Denies dysuria, hematuria or urinary frequency Musculoskeletal Musculoskeletal: Denies arthralgias, myalgias or neck pain Integumentary Denies abscess, Abrasions or rash Neurologic Neurologic: Reports headache(s); Denies paresthesias or weakness Psychiatric Psychiatric: Denies anxiety, depression, suicidal ideation or suicidal thoughts Endocrine Endocrinology: Denies polydipsia or polyuria EXAM Physical Exam Const Vital Signs: 09/28/23 16:44 09/28/23 17:02 09/28/23 17:50 Temperature 97.8 F Temperature Source Temporal Pulse Rate 83 Respiratory Rate 16 Respiratory Effort Normal Respiratory Depth Normal Respiratory Pattern Normal Blood Pressure 157/72 H Blood Pressure Mean 100 Pulse Ox 100 96 Oxygen Delivery Method Room Air Room Air Room Air 09/28/23 19:09 09/28/23 21:20 09/28/23 22:08 Temperature 98 F 98.1 F Temperature Source Oral Pulse Rate 78 82 82 Respiratory Rate 12 16 16 Respiratory Effort Respiratory Depth Respiratory Pattern Blood Pressure 139/70 H 133/80 H 146/71 H Blood Pressure Mean 93 97 96 Pulse Ox 98 98 Oxygen Delivery Method Room Air Room Air Positive well nourished General Appearance ED: NAD HEENT HEENT Narrative: No evidence of basilar skull fracture. No hemotympanum. No mastoid tenderness. No jaw malocclusion. Dentition intact. Nasal bone midline without epistaxis. No obvious facial bone trauma. atraumatic Eyes PERRL and EOMs intact bilaterally Chest Wall inspection of chest normal Resp normal respiratory effort and clear to auscultation bilaterally Auscultation: Negative for rales, rhonchi or wheezes Cardio regular rhythm Rate: regular rate GI normal to inspection, nondistended, normoactive bowel sounds Back/Spine normal to inspection Extremity normal to inspection General Extremety ED: Negative for deformity or edema General Extremity: Negative for deformity or edema Neuro CN's II-XII intact bilaterally, moves all extremities, no focal motor deficits and no sensory deficits noted [employer] Coma Scale: document GCS findings Spontaneous Obeys Commands Oriented 15 Sensorium / Orientation: alert Motor Exam: strength 5/5 throughout Psych mental status grossly normal Skin no wounds and no jaundice MDM MDM MDM Narrative Medical decision making narrative: 87-year-old female presenting for evaluation of a fall last evening. She statesshe cannot recall falling. She states EMS came out and saw her and she was okayby that point but believes she lost consciousness for about 15 minutes. Patientstates her has been caring for her and she has been out of bed much today. She was able to get up and walk. Patient does have a headache. She states I think I have a concussion. Differential includes syncope, dysrhythmia, ACS, dehydration, electrolyte abnormalities, pneumonia, UTI. Patient found to have ruptured TM in the left eardrum. CT brain and cervical spine will be obtained to assess for intracranial injury or cervical spine injury. Chest x-ray to rule out pneumonia and EKG and high-sensitivity troponinto assess for ischemia. CBC to assess white blood cell count, hemoglobin, platelets. BMP to assess renal function, electrolytes. Urinalysis to assess for UTI. CT brain and cervical spine are negative. Chest x-ray my interpretation is no acute process. The radiologist interprets this and agrees. EKG on my interpretation shows normal sinus rhythm at a ventricular to 78 bpm without sign ischemic change. Urinalysis negative for UTI. Troponin came back at 10 therefore there is no significant interval change. Went back to the room the patient and family there which she did not have earlier. I discussed all the findings with them and at this point they stated that the patient had been started on muscle relaxers in addition to her pain medicine and the patient doestake tramadol as well as gabapentin. I recommended that she discontinue the muscle relaxers as this is a new medication it is causing her to be altered. Otherwise her workup was normal with exception of a perforated TM. She states she sees ENT and I will give her follow-up. Impression: 1. Fall 2. closed head injury 3. Polypharmacy 4. Ruptured left TM 5. Concussion Lab Data Labs: Laboratory Results - last 24 hr 09/28/23 09/28/23 09/28/23 17:50 18:55 20:16 WBC 5.9 RBC 3.61 L Hgb 11.1 L Hct 35.6 L MCV 98.6 MCH 30.7 MCHC 31.2 L RDW Std Deviation 46.4 H RDW Coeff of Laury 12.9 Plt Count 285 MPV 9.0 Immature Gran % (Auto) 0.500 Neut % (Auto) 69.6 Lymph % (Auto) 18.8 L [place] % (Auto) 7.6 Eos % (Auto) 2.7 Baso % (Auto) 0.8 Absolute Neuts (auto) 4.1 Absolute Lymphs (auto) 1.11 Nucleated RBC % 0 Sodium 137 Potassium 4.3 Chloride 106 Carbon Dioxide 28.0 Anion Gap 3 L BUN 18 Creatinine 0.98 Estim Creat Clear Calc 43.46 Est GFR (MDRD) Af Amer 69 Est GFR (MDRD) Non-Af 57 L BUN/Creatinine Ratio 18.4 Glucose 100 Calcium 9.7 Troponin I High Sens 8 10 Urine Color Yellow Urine Clarity Clear Urine pH 8.0 Ur Specific [place] 1.010 Urine Protein Negative Urine Glucose (UA) Normal Urine Ketones Negative Urine Occult Blood 10 H Urine Nitrite Negative Urine Bilirubin Negative Urine Urobilinogen Normal Ur Leukocyte Esterase 100 H Urine RBC 0 SEEN Urine WBC 0-5 SEEN Ur Squamous Epith Cells 0 SEEN Urine Bacteria 2+ Urine Mucus 0 SEEN Radiography Diagnostic Testing: Clinical Impression(s) from Imaging Studies Brain CT 09/28/23 17:33 IMPRESSION: undefined Cervical Spine CT 09/28/23 17:33 IMPRESSION: undefined Chest X-Ray 09/28/23 18:14 IMPRESSION: No acute pulmonary disease. Electronically Signed: Jean Garcia MD at 18:36 EST , Discharge Plan Triage Chief Complaint: Head Injury ED Provider: Nelson Holman Dx/Rx/DC Orders Instructions: ED Head Injury (Adult), ED Ruptured Eardrum, Traumatic Prescriptions: New ondansetron 4 mg tablet,disintegrating 4 mg PO Q8H PRN PRN (Reason: Nausea) Qty: 14 0RF No Action trazodone 50 MG tablet 50 mg PO QHS amlodipine 5 MG tablet 5 mg PO DAILY amitriptyline 25 MG tablet 25 mg PO QHS Hold Instructions: Resume on 01/03/23. Hold until discussing with your primary care physician gabapentin 300 MG capsule 300 mg PO TID Hold Instructions: Resume on 12/27/22. Would recommend discussing this medication with your prescribing physician prior to resuming due to the increased risk of confusion and falls azelastine 1 SPRAY aerosol,spray 1 spray NASAL BID fluticasone propionate 1 SPRAY spray,suspension 1 spray NASAL BID tramadol 50 MG tablet 50 mg PO Q8H Hold Instructions: Resume on 12/27/22. Would recommend discussing this medication with your prescribing physician prior to resuming due to the increased risk of confusion and falls acetaminophen 500 MG tablet 500 mg PO Q6H PRN PRN (Reason: Pain 1-10 Or Fever) pantoprazole 40 MG tablet 40 mg PO BID levothyroxine 75 MCG tablet 75 mcg PO DAILY@0600 Qty: 30 0RF lisinopril 20 MG tablet 20 mg PO DAILY Primary Care Provider: Roma Grajeda Referrals: Roma Grajeda, [Primary Care Provider] - Disposition Disposition: Home, Self Care What to do if you have Problems For any increased pain, shortness of breath, bleeding, nausea or vomiting, chestpain, or any unexpected problems, contact your Primary Care Provider. Call [facility] ([phone]) or report to the closest Emergency Room. Call 911 if necessary. 09/28/232225 <Electronically signed by Nelson Holman DO> Cosigner Signature (if applicable): CC: Dr. Roma Grajeda DO ~ Signed [facility] Work Phone: [phone] 974-694803-05-[address] Khan [facility] December 10, 2022 10:15am Note Date/Time December 10, 2022 9:[address] [facility] Medical Records Department [address] [place] [address] Instructions for Home/Discharge Instructions 12/10/22 0957 MR#: [id number] Acct: [id number] Name: MARLI ROSALES Rep #:[id number] : 1935 86 From: Huma Khan MD PCP: Dr. Roma Grajeda DO Status:ADM IN Discharge Instructions Diet Discharge Diet: No restrictions Activity Discharge Activity: Return to Normal Activity Follow Up Care Test Results: Test results from this visit will be discussed in further detail at your follow- up appointment, if applicable. Discharge Plan Admission Admit Date/Time: 12/09/22 15:43 Primary Reason for Your Visit: Altered level of conciousness, UTI Attending Provider: Huma Khan Primary Care Provider: Roma Grajeda Instructions Patient Instructions: Urinary Tract Infections in Women, UTIs Women Additional Instructions / Restrictions: DISCHARGE INSTRUCTIONS PLEASE READ *Please take this with you to your next doctors appointment* -You are diagnosed with a urinary tract infection and will be discharged on antibiotics. Given the bacteria that was found in your urine you will need to be discharged on Augmentin 875 mg twice daily for 6 more days with a dose tonight. This was sent to your preferred pharmacy at the [facility] in [facility], will take this instead of the antibiotic that was prescribed before admission -Your amitriptyline, gabapentin, tramadol were held on admission as they can increase confusion and falls. Would recommend discussing these medications withyour prescribing physician prior to resuming due to these increased risks -You are very dehydrated on admission, would recommend holding Lasix (furosemide). Weigh yourself daily, if you gain more than 2 pounds in 24 hours please contact your primary care physician as this may need to be resumed -If you have any home health needs, recommend contacting your primary care physician for coordination of any required services -Continue other home medications as prescribed -Recommend calling Dr. Gutierrez's office upon discharge to schedule a hospital follow-up appointment for your urinary tract infection -Please call your primary care provider's office upon discharge to schedule a hospital follow up within 1 week. -For any concerning signs or symptoms please call 911 or proceed to the nearest emergency department Discharge Orders/Prescriptions Prescriptions: New amoxicillin-pot clavulanate 875-125 mg tablet 1 tab PO BID 6 Days Qty: 13 0RF Rx Instructions: First dose night of 12/10/22 Continued trazodone 50 MG tablet 50 mg PO QHS amlodipine 5 MG tablet 5 mg PO DAILY azelastine 1 SPRAY aerosol,spray 1 spray NASAL BID fluticasone propionate 1 SPRAY spray,suspension 1 spray NASAL BID acetaminophen 500 MG tablet 500 mg PO Q6H PRN PRN (Reason: Pain 1-10 Or Fever) pantoprazole 40 MG tablet 40 mg PO BID levothyroxine 75 MCG tablet 75 mcg PO DAILY@0600 Qty: 30 0RF lisinopril 20 MG tablet 20 mg PO DAILY estradiol 0.01 % (0.1 mg/gram) cream 1 applic VAGINAL MOWEFR Label Comments: INSERT 1 GRAM VAGINALLY 3 TIMES A WEEK BEFORE BED Held amitriptyline 25 MG tablet 25 mg PO QHS Hold Instructions: Resume on 01/03/23. Hold until discussing with your primary care physician gabapentin 300 MG capsule 300 mg PO TID Hold Instructions: Resume on 12/27/22. Would recommend discussing this medication with your prescribing physician prior to resuming due to the increased risk of confusion and falls tramadol 50 MG tablet 50 mg PO Q8H Hold Instructions: Resume on 12/27/22. Would recommend discussing this medication with your prescribing physician prior to resuming due to the increased risk of confusion and falls Discontinued furosemide 40 MG tablet 40 mg PO DAILY PRN PRN (Reason: htn) Rx Instructions: if blood pressure is greater than 140/80 nitrofurantoin monohyd/m-cryst 100 mg capsule 100 mg PO BID Label Comments: TAKE 1 CAPSULE BY MOUTH TWICE DAILY FOR 7 DAYS Referrals / Follow Up: Lorena Gutierrez MD [Med Staff - Active Staff] - See Referral Note (Recommend calling Dr. Gutierrez's office upon discharge to schedule a hospital follow-up appointment for your urinary tract infection) Roma Grajeda DO [Primary Care Provider] - Within 1 Week Disposition Disposition (needs filled in before D/C Order can be placed): Home, Self Care 12/10/22 1015<Electronically signed by Huma Khan MD>Huma Khan MD CC: Dr. Roma Grajeda DO ~ Signed [facility] Work Phone: [phone]) 746-355203-04-[address] Khan [facility] December 09, 2022 3:39pm Note Date/Time December 09, 2022 8:20 am [facility] Medical Records Department [address] [place] [id number] Progress Note - Hospitalist 12/09/22819 MR#: [id number] Acct: [id number] Name: MARLI ROSALES Rep #:[id number] : 1935 86 From: Huma Khan MD PCP: Dr. Roma Grajeda DO Status:ADM HAIM Location: [place] [address] Reason for Visit Reason for Visit: Diagnoses Dehydration (12/08/22) Urinary tract infection, site not specified (12/08/22) Transient alteration of awareness (12/08/22) Weakness (12/08/22) Subjective Subjective Feeling better than she was but still diffusely weak. Objective Data Objective Data Vital Signs: Vital Signs Temp Pulse Resp BP Pulse Ox O2 Del Method 98.2 F 90 18 135/61 H 96 Room Air 12/09/22 03:45 12/09/22 03:45 12/09/22 03:45 12/09/22 03:45 12/09/22 03:45 12/09/22 03:45 Oxygen Delivery Method Room Air Weight: 66.315 kg Body Mass Index (BMI) 30.5 Intake & Output: Intake and Output for Last 24 Hours 12/07/22 12/08/22 12/09/22 23:59 23:59 23:59 Intake Total 1116.67 / 1356.67 1253.33 / 1253.33 Balance 1116.67 / 1356.67 1253.33 / 1253.33 Lab / Micro Data Result Diagrams: 12/09/22 05:51 12/09/22 05:51 Labs: Laboratory Results - last 24 hr 12/08/22 08:06: WBC 9.5, RBC 4.07 L, Hgb 12.2, Hct 39.1, MCV 96.1, MCH 30.0, MCHC 31.2 L, RDW Std Deviation 45.7 H, RDW Coeff of Laury 12.8, Plt Count 206, MPV9.5, Immature Gran % (Auto) 0.500, Neut % (Auto) 94.6 H, Lymph % (Auto) 1.3 L, [place] % (Auto) 1.8, Eos % (Auto) 1.6, Baso % (Auto) 0.2, Absolute Neuts (auto) 9.0 H, Absolute Lymphs (auto) 0.12 L, Nucleated RBC % 0, Differential Comment SCANNED 12/08/22 08:06: Sodium 137, Potassium 3.6, Chloride 102, Carbon Dioxide 23.0, Anion Gap 12, BUN 26 H, Creatinine 1.36 H, Estim Creat Clear Calc 33.32, Est GFR(MDRD) Af Amer 47 L, Est GFR (MDRD) Non-Af 39 L, BUN/Creatinine Ratio 19.1, Glucose 112 H, Calcium 9.1, Magnesium 1.8, Total Bilirubin 1.10 H, Direct Bilirubin 0.35 H, AST 47 H, ALT 25, Alkaline Phosphatase 75, Total Protein 6.7, Albumin 3.2, Globulin 3.5, TSH 2.99 12/08/22 08:06: Ammonia 11.0 12/08/22 08:20: Urine Color Yellow, Urine Clarity Sl. Cloudy, Urine pH 6.0, Ur Specific [place] 1.010, Urine Protein 100 H, Urine Glucose (UA) Normal, Urine Ketones 15 H, Urine Occult Blood 250 H, Urine Nitrite Positive H, Urine Bilirubin Negative, Urine Urobilinogen Normal, Ur Leukocyte Esterase 500 H, UrineRBC 25-50 SEEN, Urine WBC 25-50 SEEN, Ur Squamous Epith Cells 0-5 SEEN, Urine Bacteria 1+, Urine Mucus 0 SEEN 12/09/22 05:51: WBC 4.6, RBC 3.22 L, Hgb 9.8 L, Hct 30.8 L, MCV 95.7, MCH 30.4, MCHC 31.8 L, RDW Std Deviation 45.1 H, RDW Coeff of Laury 12.9, Plt Count 190, MPV9.4, Immature Gran % (Auto) 0.200, Neut % (Auto) 78.4 H, Lymph % (Auto) 5.7 L, [place] % (Auto) 5.7, Eos % (Auto) 9.6 H, Baso % (Auto) 0.4, Absolute Neuts (auto) 3.6, Absolute Lymphs (auto) 0.26 L, Nucleated RBC % 0, Differential Comment SCANNED 12/09/22 05:51: Sodium 140, Potassium 3.4 L, Chloride 110 H, Carbon Dioxide 22.0, Anion Gap 8, BUN 19 H, Creatinine 0.90, Estim Creat Clear Calc 47.84, Est GFR (MDRD) Af Amer 76, Est GFR (MDRD) Non-Af 63, BUN/Creatinine Ratio 21.1 H, Glucose 86, Calcium 8.2 L, Magnesium 1.9, Total Bilirubin 0.70, AST 33, ALT 25, Alkaline Phosphatase 59, Total Protein 5.4 L, Albumin 2.5 L, Globulin 2.9, Albumin/Globulin Ratio 0.9, TSH 1.20 Physical Exam Narrative General: Alert, oriented HEENT: Atraumatic, normocephalic, moist mucous membranes Eyes: Anicteric, normal conjunctiva, extraocular movements grossly intact Neck: Supple Respiratory: Clear to auscultation bilaterally, normal respiratory effort Cardiovascular: Regular rate and rhythm GI: Soft, nontender, nondistended Extremities: No edema Musculoskeletal: Moving all extremities Neuro: No overt focal neurological deficits Skin: No rashes appreciated Psych: Cooperative Assessment & Plan Assessment/Plan (1) Urinary tract infection: (2) Dehydration, mild: (3) Generalized weakness: (4) Altered level of consciousness: PLAN: Plan #Acute metabolic encephalopathy 2/2 UTI -Reportedly brought her a pad and underwear in the bathroom and she was going to put it on and does not remember anything until coming to the hospital but did not slump over or fall -Was initially somewhat confused in the hospital however now reports just being tired -CT head in the ED with chronic changes -EKG appeared to be sinus rhythm but has somewhat of a tremor at baseline so there is artifact though RR intervals are regular -Admit to telemetry -VBG with very minimally decreased HCO3 and very minimally decreased CO2 with a pH of 7.46, suspect contraction alkalosis -Does not appear to be in respiratory distress -We will get EEG, TSH within normal limits -Was diagnosed with UTI yesterday and has had 1 dose of antibiotics which she and her are unsure of which (appears to be Macrobid based on med rec) and she does appear profoundly dehydrated as mucous membranes are dry and she has increased BUN and creatinine -Urine culture pending -Was given Rocephin in the ED however reviewing previous urine culture she has grown multidrug-resistant organisms including Pseudomonas, will switch to Zosyn for broader coverage pending urine culture results -We will hydrate -Additionally is on tramadol as needed and recently filled gabapentin as well and suspect with decreased GFR it is more difficult to clear gabapentin which may be contributing to her excessive sleepiness at this time -We will hold tramadol and gabapentin at this time -3/4- mental status improved, likely 2/2 UTI, has grown MDRO in the past, sensitivities pending. Continue zosyn at this time as she is improving. Generally weak #Acute on chronic anemia -12.2->9.8 overnight -Unclear if dilutional, no overt GI bleeding however cannot r/o bleed -FOBT ordered #KATT resolved -Continue to hold lisinopril -s/p IVF -encourage PO #Generalized weakness -PT/OT #Hypothyroidism -Continue Synthroid -TSH wnl #DVT ppx: Lovenox Huma Khan MD Time spent in the patient's overall evaluation,decision-making process, review of diagnostic data, adjustment of management, discussion with other providers, nursing nursing and ancillary staff involved in patient's care documentation, 30minutes Charges/Coding Visit Charges Inpatient E&M: 57324 Subs Hosp L2 12/09/22 1538 <Electronically signed by Huma Khan MD> Cosigner Signature (if applicable): CC: ~ Signed ADDENDUM by Dr. Huma Khan MD on 12/09/22 at 1539 Addendum Given no law blood will continue lovenox with caution for dvt ppx as she is moderate risk for dvt 12/09/22 1539<Electronically signed by Huma Khan MD> Cosigner Signature (if applicable): cc: ~* Signed [facility] Work Phone: [phone] Khan [facility] December 08, 2022 2:26pm Note Date/Time December 08, 2022 2:27 pm [facility] Medical Records Department [address] [place] [address] Telemedicine Confirmation Receipt 12/08/22 MR#: [id number] Acct: [id number] Name: MARLI ROSALES Rep #:[id number] : 1935 86 From: Huma Khan MD PCP: Dr. Roma Grajeda, DO Status:ADM HAIM [facility] Tele[facility] has confirmed receipt of a request for visit. This document confirms receipt of the order initiating the consult. To find the results of the consultation, please view the patient's reports for the scanned Telemed Consult. [facility] Work Phone: [phone] 637-652603-03-2023 History and physical note Author Dr. Khan [facility] December 08, 2022 10:38am Note Date/Time December 08, 2022 10:[address] [facility] Medical Records Department [address] [place] [address] H&P Exam - Hospitalist 12/08/22 1013 MR#: [id number] Acct: [id number] Name: MARLI ROSALES Rep #:[id number] : 1935 86 From: Huma Khan MD PCP: Dr. Roma Grajeda, DO Status:ADM HAIM Location: [place] [address] HPI - General General Date of Admission: 12/08/22 Date of Service: 12/08/22 Chief Complaint: Altered level of consciousness HPI Narrative MARLI ROSALES, is a 86 F with history of hypothyroidism, hypertension, osteoarthritis, multiple urinary tract infections, GERD who presented to [facility] 12/08/2022 after she had decreased consciousness while sitting on the toilet. She reports that she was in the bathroom and called for her to bring her a change of underwear and then per report she was no longerresponding however did not fall over or slump. The next thing she remembers wasbeing in the emergency department. On arrival she was slightly confused howeverthat quickly improved however she remained very sleepy. She was seen for urinary tract infection yesterday and was started on what appears to have been Macrobid but continued to have dysuria. Also has not been drinking or eating very well. In the ED did have UA still suggestive of UTI and was very weak and tired, hospitalist consulted for admission. not at bedside at time of evaluation, patient quickly falls back asleep but is able to wake up and answer questions appropriately. She reports that she does not remember anything from the. On the toilet until presenting here. Only notable positive ROS has been decreased p.o. with burning on urination and she said she thinks she may have had an episode of diarrhea last night but she does not remember. In the ED white count 9.5, VBG with pH of 7.46 with HCO3 21 and CO2 22 on ABG, BUN 26 withcreatinine of 1.36 and her baseline appears closer to 1. She additionally had bili of 1.10 with a T. bili of 0.35 and AST of 47 ALT and alk phos within normallimits. TSH 2.99. BP stable and heart rate 80s to 90s primarily. Initially difficult to establish IV access but 1 was established in right foot and she wasable to receive fluids and Rocephin. [facility] Medical History Alcohol use Celiac disease Dietary restriction Gastric reflux History of depression History of GI bleed History of hiatal hernia History of rheumatic fever History of stress test Hoarseness Hypertension Non-smoker Osteoporosis Thyroid disease Walker as ambulation aid Wears hearing aid Home Medications amitriptyline 25 mg tablet 25 mg PO QHS 08/16/20 [History Last Taken 12/07/22] amlodipine 5 mg tablet 5 mg PO DAILY BP 08/16/20 [History Last Taken 12/06/22] azelastine 137 mcg (0.1 %) nasal spray aerosol 1 spray NASAL BID SINUS 08/16/20 [History Last Taken 12/07/22] fluticasone propionate 50 mcg/actuation nasal spray,suspension 1 spray NASAL BIDallergies 08/16/20 [History Last Taken 12/07/22] 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 08/16/20 [History Last Taken 12/08/22] trazodone 50 mg tablet 50 mg PO QHS sleep 08/16/20 [History Last Taken 12/07/22] tramadol 50 mg tablet 50 mg PO Q8H 11/09/20 [History Last Taken 12/08/22] acetaminophen 500 mg tablet 500 mg PO Q6H PRN PRN Pain 1-10 Or Fever 11/22/20 [History Last Taken 12/07/22] furosemide 40 mg tablet 40 mg PO DAILY PRN PRN htn 11/22/20 [History Last Taken 2 Days Ago ~11/20/20] pantoprazole 40 mg tablet,delayed release 40 mg PO BID GERD 11/22/20 [History Last Taken 12/07/22] levothyroxine 75 mcg tablet 75 mcg PO DAILY@0600 #30 tabs 11/25/20 [Rx Last Taken 12/08/22] lisinopril 20 mg tablet 20 mg PO DAILY 01/30/21 [History Last Taken 12/07/22] estradiol 0.01% (0.1 mg/gram) vaginal cream 1 applic vaginal MOWEFR HORMONES 12/08/22 [History Last Taken 12/06/22] nitrofurantoin monohydrate/macrocrystals 100 mg capsule 100 mg PO BID UTI 12/08/22 [History Last Taken 12/07/22] Allergy/AdvReac Type Severity Reaction Status Date / Time gluten Allergy Food Verified 12/08/22 06:30 Allergy grass pollen-perennial rye, Allergy sinus Verified 12/08/22 06:30 standar pressure [grass poll-perennial rye,std] house dust AdvReac Other Verified 12/08/22 06:30 lactose AdvReac Food Verified 12/08/22 06:30 Allergy mold AdvReac Other Verified 12/08/22 06:30 Surgical History History of back surgery History of bilateral salpingo-oophorectomy (BSO) History of biopsy of bladder History of cholecystectomy History of cystostomy History of hysterectomy History of right knee surgery History of shoulder surgery Social History Smoking Status: Never smoker alcohol intake: never ROS ROS Narrative General: Feels generally very tired but oriented HENT: Denies headache, denies stuffy nose, denies sore throat EYES: Denies changes in vision Resp: Denies cough, denies shortness of breath Cardiac: Denies chest pain GI: Thinks she may have had an episode of diarrhea last night but does not remember : Has had some discomfort with urination Extremity: Denies swelling MSK: Generally weak Neuro: Denies any numbness, denies tingling Heme: Denies any bleeding or bruising Skin: Denies rashes Psychiatric: Tired Vital Signs Vital Signs Vital Signs: 12/08/22 06:23 12/08/22 06:28 12/08/22 08:15 Temperature 97.4 F L Temperature Source Temporal Pulse Rate 122 H Respiratory Rate 12 Respiratory Effort Normal Respiratory Pattern Normal Blood Pressure 108/47 L 133/61 H Blood Pressure Mean 67 85 Pulse Ox 93 Oxygen Delivery Method Room Air 12/08/22 09:00 Temperature Temperature Source Pulse Rate 96 Respiratory Rate Respiratory Effort Respiratory Pattern Blood Pressure 127/49 H Blood Pressure Mean 75 Pulse Ox Oxygen Delivery Method Weight Weight: 69.8 kg Body Mass Index (BMI) 31.1 Physical Exam Narrative General: Oriented but sleepy HEENT: Atraumatic, normocephalic, dry mucous membranes Eyes: Anicteric, normal conjunctiva, extraocular movements grossly intact Neck: Supple Respiratory: Clear to auscultation bilaterally, normal respiratory effort Cardiovascular: Regular rate and rhythm GI: Soft, nontender, nondistended Extremities: No edema Musculoskeletal: Moving all extremities Neuro: No overt focal neurological deficits but has difficulty participating in neuro exam due to feeling too tired Skin: No rashes appreciated Psych: Cooperative Results Lab / Micro Data Result Diagrams: 12/08/22 08:06 12/08/22 08:06 Labs: Laboratory Results - last 24 hr 12/08/22 08:06: WBC 9.5, RBC 4.07 L, Hgb 12.2, Hct 39.1, MCV 96.1, MCH 30.0, MCHC 31.2 L, RDW Std Deviation 45.7 H, RDW Coeff of Laury 12.8, Plt Count 206, MPV9.5, Immature Gran % (Auto) 0.500, Neut % (Auto) 94.6 H, Lymph % (Auto) 1.3 L, [place] % (Auto) 1.8, Eos % (Auto) 1.6, Baso % (Auto) 0.2, Absolute Neuts (auto) 9.0 H, Absolute Lymphs (auto) 0.12 L, Nucleated RBC % 0, Differential Comment SCANNED 12/08/22 08:06: Sodium 137, Potassium 3.6, Chloride 102, Carbon Dioxide 23.0, Anion Gap 12, BUN 26 H, Creatinine 1.36 H, Estim Creat Clear Calc 33.32, Est GFR(MDRD) Af Amer 47 L, Est GFR (MDRD) Non-Af 39 L, BUN/Creatinine Ratio 19.1, Glucose 112 H, Calcium 9.1, Magnesium 1.8, Total Bilirubin 1.10 H, Direct Bilirubin 0.35 H, AST 47 H, ALT 25, Alkaline Phosphatase 75, Total Protein 6.7, Albumin 3.2, Globulin 3.5, TSH 2.99 12/08/22 08:06: Ammonia 11.0 12/08/22 08:20: Urine Color Yellow, Urine Clarity Sl. Cloudy, Urine pH 6.0, Ur Specific [place] 1.010, Urine Protein 100 H, Urine Glucose (UA) Normal, Urine Ketones 15 H, Urine Occult Blood 250 H, Urine Nitrite Positive H, Urine Bilirubin Negative, Urine Urobilinogen Normal, Ur Leukocyte Esterase 500 H, Urine RBC 25-50 SEEN, Urine WBC 25-50 SEEN, Ur Squamous Epith Cells 0-5 SEEN, Urine Bacteria 1+, Urine Mucus 0 SEEN ABG Data ABG results: ABG 12/08/22 08:03 Specimen Type PHIL VBG pH 7.46 H VBG pO2 55 H VBG HCO3 21 L VBG Total CO2 22 L VBG O2 Sat (Calc) 90 H VBG Base Excess -3 L POC Mix VBG pCO2 Pt Tmp 29.3 L Radiology Impression Brain CT 12/08/22 06:36 IMPRESSION: Moderate generalized atrophy. Moderate low density bilaterally in the deep white matter. This likely represents chronic small vessel ischemic changes in the deep white matter. No significant change. Electronically Signed: Amado Wilkins MD at 7:03 EST , Chest X-Ray 12/08/22 06:36 IMPRESSION: No acute cardiopulmonary abnormality. Electronically Signed: Amado Wilkins MD at 7:07 EST , Assessment & Plan Assessment/Plan (1) Urinary tract infection: (2) Dehydration, mild: (3) Generalized weakness: (4) Altered level of consciousness: PLAN: Plan #Altered level of consciousness -Reportedly brought her a pad and underwear in the bathroom and she was going to put it on and does not remember anything until coming to the hospital but did not slump over or fall -Was initially somewhat confused in the hospital however now reports just being tired -CT head in the ED with chronic changes -EKG appeared to be sinus rhythm but has somewhat of a tremor at baseline so there is artifact though RR intervals are regular -Admit to telemetry -VBG with very minimally decreased HCO3 and very minimally decreased CO2 with a pH of 7.46, suspect contraction alkalosis -Does not appear to be in respiratory distress -We will get EEG, TSH within normal limits -Was diagnosed with UTI yesterday and has had 1 dose of antibiotics which she and her are unsure of which (appears to be Macrobid based on med rec) and she does appear profoundly dehydrated as mucous membranes are dry and she has increased BUN and creatinine -Urine culture pending -Was given Rocephin in the ED however reviewing previous urine culture she has grown multidrug-resistant organisms including Pseudomonas, will switch to Zosyn for broader coverage pending urine culture results -We will hydrate -Additionally is on tramadol as needed and recently filled gabapentin as well and suspect with decreased GFR it is more difficult to clear gabapentin which may be contributing to her excessive sleepiness at this time -We will hold tramadol and gabapentin at this time #KATT on CKD stage III unclear subtype -Given dry mucous membranes appears to be prerenal -Hold lisinopril -We will hydrate #Generalized weakness -PT/OT #Hypothyroidism -Continue Synthroid -TSH in the a.m. #DVT ppx: Donaldo Khan MD Time spent in the patient's overall evaluation,decision-making process, review of diagnostic data, adjustment of management, discussion with other providers, nursing nursing and ancillary staff involved in patient's care documentation, 60minutes Charges/Coding Visit Charges Inpatient E&M: 91792 Init Hosp L2 12/08/22 1038 <Electronically signed by Huma Khan MD> Cosigner Signature (if applicable): CC: Dr. Roma Grajeda DO; Dr. Huma Khan MD~ Signed [facility] Work Phone: [phone] Discharge summary Author Quentin Melvin [facility] December 08, 2022 9:31am Note Date/Time December 08, 2022 9:[address] [facility] Medical Records Department [address] [place] [address] Emergency Department Summary 12/08/22 MR#: [id number] Acct: [id number] Name: MARLI ROSALES Rep #:[id number] : 1935 86 From: Quentin Melvin DO PCP: Dr. Roma Grajeda DO Status:REG ER Location: ED HPI History of Present Illness Chief Complaint: Syncope Narrative Narrative: Patient is an 86-year-old female who is a DNR [employer] arrest who lives at home with her . She has a history of hypertension hypothyroidism peptic ulcer disease and osteoarthritis. EMS brought patient in and history is obtained from EMS and the patient's. Reportedly patient was recently diagnosed with a UTI from her family doctor and has had 1 day of antibiotic. Reportedly she was using the restroom last night/this morning when she called out time and her she did not feel well and then became unresponsive. states that there was no witnessed seizure-like activity and she did not fall off the toilet. However despite multiple attempts to wake her she was not responding and that is why called EMS. EMS states when they arrived the patient was protecting her airway and breathing on her own but that she was just minimally responsive and not answering her questions or following commands. However as they are recent hospital her mental status did improve. Upon arrival to the ER patient is obtunded but will awake to voice and just states she feels very tiredand fatigued at this time [facility] Medical History Alcohol use Celiac disease Dietary restriction Gastric reflux History of depression History of GI bleed History of hiatal hernia History of rheumatic fever History of stress test Hoarseness Hypertension Non-smoker Osteoporosis Thyroid disease Walker as ambulation aid Wears hearing aid Home Medications amitriptyline 25 mg tablet 25 mg PO QHS 08/16/20 [History Last Taken 11/21/20] amlodipine 5 mg tablet 10 mg PO DAILY 08/16/20 [History Last Taken 04/25/21 04:00] azelastine 137 mcg (0.1 %) nasal spray aerosol 1 spray NASAL BID 08/16/20 [History Last Taken 11/22/20 04:30] fluticasone propionate 50 mcg/actuation nasal spray,suspension 1 spray NASAL BIDallergies 08/16/20 [History Last Taken 11/22/20] 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 08/16/20 [History Last Taken 04/25/21 04:00] trazodone 50 mg tablet 50 mg PO QHS sleep 08/16/20 [History Last Taken 11/21/20] Cholecalciferol (Vitamin D3) [Vitamin D3] 50 iu PO QWEEK 11/09/20 [History Last Taken 11/21/20] ascorbic acid (vitamin C) 1,000 mg tablet 500 mg PO DAILY 11/09/20 [History Last Taken 11/21/20] tramadol 50 mg tablet 50 mg PO Q8H 11/09/20 [History Last Taken 11/22/20] albuterol sulfate 90 mcg/actuation aerosol inhaler 2 puff inhalation Q4H PRN PRNShortness Of Breath ##1 11/12/20 [Rx Last Taken 2 Days Ago ~11/20/20] acetaminophen 500 mg tablet 500 mg PO Q6H PRN PRN Pain 1-10 Or Fever 11/22/20 [History Last Taken 11/22/20 04:30] furosemide 40 mg tablet 40 mg PO PRN PRN htn 11/22/20 [History Last Taken 2 Days Ago ~11/20/20] pantoprazole 40 mg tablet,delayed release 40 mg PO BID GERD 11/22/20 [History Last Taken 04/25/21 04:00] levothyroxine 75 mcg tablet 75 mcg PO DAILY@0600 #30 tabs 11/25/20 [Rx Last Taken 04/25/21 04:00] lisinopril 20 mg tablet 20 mg PO DAILY 01/30/21 [History Last Taken 04/25/21 04:00] miconazole nitrate 2 % topical powder 1 applic topical BID #85 grams 08/27/21 [Rx Last Taken Unknown] tizanidine 2 mg capsule 2 mg PO Q8H PRN muscle spasticity #10 caps 02/07/22 [Rx Last Taken Unknown] Allergy/AdvReac Type Severity Reaction Status Date / Time gluten Allergy Food Verified 12/08/22 06:30 Allergy grass pollen-perennial rye, Allergy sinus Verified 12/08/22 06:30 standar pressure [grass poll-perennial rye,std] house dust AdvReac Other Verified 12/08/22 06:30 lactose AdvReac Food Verified 12/08/22 06:30 Allergy mold AdvReac Other Verified 12/08/22 06:30 Surgical History History of back surgery History of bilateral salpingo-oophorectomy (BSO) History of biopsy of bladder History of cholecystectomy History of cystostomy History of hysterectomy History of right knee surgery History of shoulder surgery Social History Smoking Status: Never smoker alcohol intake: never ROS ROS ED Constitutional Constitutional ED: Denies chills or fever(s) Eyes Eyes: Denies change in vision ENT ENT ED: Denies sore throat Cardiovascular Cardiovascular: Reports other Details: Positive syncope ; Denies chest pain, palpitations or racing heartbeat Respiratory/Chest Respiratory/Chest: Denies cough or dyspnea Gastrointestinal Gastrointestinal: Denies abdominal pain, diarrhea, nausea or vomiting Genitourinary Genitourinary ED: Reports dysuria and urinary frequency Musculoskeletal Musculoskeletal: Denies myalgias Integumentary Denies rash Neurologic Neurologic: Reports weakness; Denies headache(s) Hematologic/Lymphatic Hematologic/Lymphatic: Denies easy bleeding or easy bruising EXAM Physical Exam Const Vital Signs: 12/08/22 06:23 12/08/22 06:28 Temperature 97.4 F L Temperature Source Temporal Pulse Rate 122 H Respiratory Rate 12 Respiratory Effort Normal Respiratory Pattern Normal Blood Pressure 108/47 L Blood Pressure Mean 67 Pulse Ox 93 Oxygen Delivery Method Room Air Positive well nourished and well developed Constitutional Narrative: Patient is obtunded with a GCS of 13. she will wake to voice but quickly fall back asleep General Appearance ED: well developed HEENT Reports dry mucous membranes HEENT Narrative: No tongue or cheek biting noted No secondary changes to suggest infection in the posterior No airway edema or compromise Mouth ED: Yes dry mucous membranes Mouth: dry mucous membranes Eyes PERRL and EOMs intact bilaterally General Eye ED: Negative for scleral icterus Neck supple Neck Narrative: No nuchal rigidity or meningeal signs noted Chest Wall palpation of chest normal Resp normal respiratory effort and clear to auscultation bilaterally Resp Narrative: Breath sounds are diminished throughout but overall clear to auscultation without nasal flaring retractions tachypnea or accessory muscle use Cardio regular rhythm Rate: tachycardic and other Other Details: Radial pulses are +2-4 bilaterally are equal and symmetric GI normal to inspection, nondistended, normoactive bowel sounds, non-tender, non-distended and no masses GI Narrative: No voluntary guarding or rigidity no pulsatile mass or fluid wave Auscultation: normoactive bowel sounds Palpation: soft Extremity normal to inspection Extremity Narrative: No bony deformity or joint effusions noted Neuro oriented x3 and CN's II-XII intact bilaterally Neuro Narrative: Patient is obtunded with GCS of 13. She received this because she takes voice stimulation to open her eyes and initially was unaware where she was at. However cranial nerves II through XII are grossly intact without focal neurologic deficit. Sensorium / Orientation: lethargic Psych Psych Narrative: Patient has a flat affect Skin no rashes or lesions noted Skin Narrative: Skin turgor is increased General Skin Exam: Negative for jaundice MDM MDM MDM Narrative Medical decision making narrative: Patient arrived to the ER slightly obtunded but was afebrile and normotensive. She is moving all extremities and there is no obvious focal neurologic deficit and therefore I felt there was no need to activate a stroke alert. There is concern that her syncopal event could have into a cardiac dysrhythmia or infectious process such as UTI or even hepatic encephalopathy or CO2 retention so a work-up was started. The patient's blood work revealed no leukocytosis or acute anemia. She has no signs of acute kidney injury. No obvious electrolyte derangement is present either and her TSH is within normal range. VBG was obtained which shows a slightly decreased CO2 at 29 which would not cause any depression to her mental status. EKG showed sinus rhythm and there was no ectopy or dysrhythmia noted on the monitor. Her urine does show changes consistent with infection which is consistent with her recent history but there is no obvious signs of acute kidney injury or urosepsis from it. I discussed with patient possibly returning home but at this point she states that she is too fatigued to ambulate and return home and states he does not feel comfortable with her returning home in this state. Therefore the case will be discussed with medicine service for admission secondary to generalized fatigue secondary to UTI and possible syncopal event. After reviewing the case they do agree to accept her at this time. The plan of care was discussed with the patient and her and they are agreeable to it History & Record Review Discussion w/independent historian: EMS personnel, Patient and Significant other Lab Data Attestation: I reviewed the patient's lab results. Labs: Laboratory Results - last 24 hr 12/08/22 12/08/22 12/08/22 08:06 08:06 08:06 WBC 9.5 RBC 4.07 L Hgb 12.2 Hct 39.1 MCV 96.1 MCH 30.0 MCHC 31.2 L RDW Std Deviation 45.7 H RDW Coeff of Laury 12.8 Plt Count 206 MPV 9.5 Immature Gran % (Auto) 0.500 Neut % (Auto) 94.6 H Lymph % (Auto) 1.3 L [place] % (Auto) 1.8 Eos % (Auto) 1.6 Baso % (Auto) 0.2 Absolute Neuts (auto) 9.0 H Absolute Lymphs (auto) 0.12 L Nucleated RBC % 0 Differential Comment SCANNED Sodium 137 Potassium 3.6 Chloride 102 Carbon Dioxide 23.0 Anion Gap 12 BUN 26 H Creatinine 1.36 H Estim Creat Clear Calc 33.32 Est GFR (MDRD) Af Amer 47 L Est GFR (MDRD) Non-Af 39 L BUN/Creatinine Ratio 19.1 Glucose 112 H Calcium 9.1 Magnesium 1.8 Total Bilirubin 1.10 H Direct Bilirubin 0.35 H AST 47 H ALT 25 Alkaline Phosphatase 75 Ammonia 11.0 Total Protein 6.7 Albumin 3.2 Globulin 3.5 TSH 2.99 Urine Color Urine Clarity Urine pH Ur Specific [place] Urine Protein Urine Glucose (UA) Urine Ketones Urine Occult Blood Urine Nitrite Urine Bilirubin Urine Urobilinogen Ur Leukocyte Esterase Urine RBC Urine WBC Ur Squamous Epith Cells Urine Bacteria Urine Mucus 12/08/22 08:20 WBC RBC Hgb Hct MCV MCH MCHC RDW Std Deviation RDW Coeff of Laury Plt Count MPV Immature Gran % (Auto) Neut % (Auto) Lymph % (Auto) [place] % (Auto) Eos % (Auto) Baso % (Auto) Absolute Neuts (auto) Absolute Lymphs (auto) Nucleated RBC % Differential Comment Sodium Potassium Chloride Carbon Dioxide Anion Gap BUN Creatinine Estim Creat Clear Calc Est GFR (MDRD) Af Amer Est GFR (MDRD) Non-Af BUN/Creatinine Ratio Glucose Calcium Magnesium Total Bilirubin Direct Bilirubin AST ALT Alkaline Phosphatase Ammonia Total Protein Albumin Globulin TSH Urine Color Yellow Urine Clarity Sl. Cloudy Urine pH 6.0 Ur Specific [place] 1.010 Urine Protein 100 H Urine Glucose (UA) Normal Urine Ketones 15 H Urine Occult Blood 250 H Urine Nitrite Positive H Urine Bilirubin Negative Urine Urobilinogen Normal Ur Leukocyte Esterase 500 H Urine RBC 25-50 SEEN Urine WBC 25-50 SEEN Ur Squamous Epith Cells 0-5 SEEN Urine Bacteria 1+ Urine Mucus 0 SEEN ABG Data ABG results: ABG 12/08/22 08:03 Specimen Type PHIL VBG pH 7.46 H VBG pO2 55 H VBG HCO3 21 L VBG Total CO2 22 L VBG O2 Sat (Calc) 90 H VBG Base Excess -3 L POC Mix VBG pCO2 Pt Tmp 29.3 L Radiography Diagnostic Testing: Clinical Impression(s) from Imaging Studies Brain CT 12/08/22 06:36 IMPRESSION: Moderate generalized atrophy. Moderate low density bilaterally in the deep white matter. This likely represents chronic small vessel ischemic changes in the deep white matter. No significant change. Electronically Signed: Amado Wilkins MD at 7:03 EST , Chest X-Ray 12/08/22 06:36 IMPRESSION: No acute cardiopulmonary abnormality. Electronically Signed: Amado Wilkins MD at 7:07 EST , Chest x-ray as interpreted by the emergency medicine physician reveals no acute infiltrate pneumothorax or pleural effusion Discharge Plan Dx/Rx/DC Orders Clinical Impression: Urinary tract infection, Dehydration, mild, Syncope, Generalized weakness Disposition Disposition: Acute Care Hospital [facility] What to do if you have Problems For any increased pain, shortness of breath, bleeding, nausea or vomiting, chestpain, or any unexpected problems, contact your Primary Care Provider. Call [facility] ([phone]) or report to the closest Emergency Room. Call 911 if necessary. 12/08/22930 <Electronically signed by Quentin Melvin DO> Cosigner Signature (if applicable): CC: Dr. Roma Grajeda, DO ~ Signed [facility] Work Phone: Consult note Author Marguerite Jimenez [facility] October 04, 2023 1:47pm Note Date/Time October 04, 2023 1:47pm [facility] Medical Records Department [address] [place] [address] Counseling Note - Pharmacy 10/04/23 1347 MR#: [id number] Acct: [id number] Name: MARLI ROSALES Rep #:[id number] : 1935 87 From: Marguerite Jimenez PCP: Dr. Roma Grajeda, Status:ADM HAIM Y Location: [place] [address] Pharmacy [place] Med Reconciliation Pharmacy Service has performed discharge medication reconciliation for this patient. The patient's discharge medication list was reviewed for discrepancies and discrepancies were resolved. Medications at Discharge Home Medications amitriptyline 25 mg tablet 25 mg PO QHS 08/16/20 amlodipine 5 mg tablet 5 mg PO DAILY BP 08/16/20 azelastine 137 mcg (0.1 %) nasal spray aerosol 1 spray NASAL BID SINUS 08/16/20 fluticasone propionate 50 mcg/actuation nasal spray,suspension 1 spray NASAL BIDallergies 08/16/20 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 08/16/20 trazodone 50 mg tablet 50 mg PO QHS sleep 08/16/20 tramadol 50 mg tablet 50 mg PO Q8H 11/09/20 acetaminophen 500 mg tablet 500 mg PO Q6H PRN PRN Pain 1-10 Or Fever 11/22/20 pantoprazole 40 mg tablet,delayed release 40 mg PO BID GERD 11/22/20 levothyroxine 75 mcg tablet 75 mcg PO DAILY@0600 #30 tabs 11/25/20 lisinopril 20 mg tablet 20 mg PO DAILY 01/30/21 cefdinir 300 mg capsule 300 mg PO Q12 5 days #0 caps 10/04/23 ciprofloxacin HCl 0.3 % eye drops 2 drp LEFT EAR BID 7 days #0 mL 10/04/23 10/04/23 1347 <Electronically signed by Margeurite Jimenez> Date _ Marguerite Jimenez Cosigner Signature (if applicable): Date CC: ~ Signed [facility] Work Phone: Discharge summary Author Wai Neal [facility] October 04, 2023 1:33pm Note Date/Time October 04, 2023 1:33pm [facility] Medical Records Department [address] [place] [address] Discharge Summary 10/04/23 1325 MR#: [id number] Acct: [id number] Name: MARLI ROSALES Rep #:[id number] : 1935 87 From: Wai Sanz PCP: Dr. Roma Grajeda DO Status:ADM HAIM Location: [address] Providers Date of Admission: 09/28/23 Date of Discharge: 10/04/23 Primary Care Physician: Dr. Roma Grajeda DO Reason For Visit: CLOSED HEAD INJURY AFTER FALL W/PERSISTENT Diagnosis Discharge Diagnosis (1) Ruptured tympanic membrane: Status: Acute Code(s): H72.90 - Unspecified perforation of tympanic membrane, unspecified ear Qualifiers: Laterality: left Qualified Code(s): H72.92 - Unspecified perforation oftympanic membrane, left ear (2) Concussion: Status: Acute Code(s): S06.0XAA - Concussion with loss of consciousness status unknown, initial encounter Qualifiers: Encounter type: initial encounter Loss of consciousness presence/duration: unknown LOC status Qualified Code(s): S06.0XAA - Concussion with loss of consciousness status unknown, initial encounter (3) History of recent fall: Status: Acute Code(s): Z91.81 - History of falling Plan 37-year-old female was admitted through ER for headache and confusion after a fall. Patient has chronic neck pain from arthritis but the pain got worse afterfall, cervical spondylitis. She complained that her neck pain starts from's C4-5area and then it spreads to the occipital and vertex of head and shoulders. 1. Closed head injury after mechanical fall with continued headache and probable concussion with history of chronic cervical spine arthritis/spondylitis ? Continue with monitoring and will treat headache with Tylenol ? Was evaluated PT and OT and patient is going to SNF. ? She does have a ruptured left tympanic membrane seen on admission started withCipro drops and continue for 1 more week. Follow-up with the ENT clinic within 2 weeks 2. UTI from E. coli ? Continue with p.o. cefdinir for total of 7 days. 3. HTN ? Blood pressures are stable ? Can resume her home blood pressure medications ? Blood pressure normal 4. Hypothyroidism ? Stable ? Continue Synthroid 5. GERD ? Stable ? Continue with PPI 6. Anxiety/depression ? Stable ? Continue with her home medications DVT: Heparin Discharge medication reconciliation done. Discharge follow-up instructions completed. Discharge process discussed with the patient and all questions wereanswered to patient's satisfaction. Follow with PCP in 1 to 2 weeks Total time spent, exact 35 minutes on discharge meds reconciliation, examination, coordination of care with nurses and ancillary staff, review of imaging and blood test and discussion with the patient on follow-up instructions. Medications at Discharge Home Medications amitriptyline 25 mg tablet 25 mg PO QHS 08/16/20 amlodipine 5 mg tablet 5 mg PO DAILY BP 08/16/20 azelastine 137 mcg (0.1 %) nasal spray aerosol 1 spray NASAL BID SINUS 08/16/20 fluticasone propionate 50 mcg/actuation nasal spray,suspension 1 spray NASAL BIDallergies 08/16/20 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 08/16/20 trazodone 50 mg tablet 50 mg PO QHS sleep 08/16/20 tramadol 50 mg tablet 50 mg PO Q8H 11/09/20 acetaminophen 500 mg tablet 500 mg PO Q6H PRN PRN Pain 1-10 Or Fever 11/22/20 pantoprazole 40 mg tablet,delayed release 40 mg PO BID GERD 11/22/20 levothyroxine 75 mcg tablet 75 mcg PO DAILY@0600 #30 tabs 11/25/20 lisinopril 20 mg tablet 20 mg PO DAILY 01/30/21 cefdinir 300 mg capsule 300 mg PO Q12 5 days #0 caps 10/04/23 ciprofloxacin HCl 0.3 % eye drops 2 drp LEFT EAR BID 7 days #0 mL 10/04/23 Physical Exam Narrative Seen and examined. Patient is states her neck pain and headache is better. Starts from the neck and spreads proximally to occipital region and parietal region and bilateral scapular regions and rhomboids. Physical exam General: Alert, Oriented x3, Cooperative HEENT: Atraumatic, PERRLA, EOMI, Normocephalic. Oral: No Gingival or Mucosal Lesions/ Ulcerations Neck: Supple, No JVD, Negative Carotid Bruits Lungs: Air entry diminished in bilateral lung bases. No crepitation/rhonchi Cardiovascular: Regular rate, Regular Rhythm, Normal S1, Normal S2, systolic murmur Abdomen: Bowel Sounds Present, Soft, Non Tender, Non-Distended : No renal angle tenderness. No suprapubic tenderness. Extremities: No edema, Capillary Refill Less than 3 Seconds Skin: No rashes, No breakdown Musculoskeletal: No Tenderness to Palpation of Joints or Extremities Spine: Mild tenderness present over C-spine. Mild paraspinal muscle tenderness around cervical spine Neurological: Cranial nerves II-XII grossly intact, DTR 2+/4. No acute focal neurological deficit. Psych/Mental Status: Flat affect Weight / BMI Weight Weight: 147 lb 14.883 oz Body Mass Index (BMI) 31.0 ABG / Lab / Microbiology Data 10/04/23 05:40 10/04/23 05:40 Laboratory: Laboratory Results - last 24 hr 10/04/23 05:40: WBC 4.9, RBC 3.93 L, Hgb 12.2, Hct 40.0, MCV 101.8 H, MCH 31.0, MCHC 30.5 L, RDW Std Deviation 48.3 H, RDW Coeff of Laury 12.9, Plt Count 287, MPV8.9, Immature Gran % (Auto) 0.400, Neut % (Auto) 59.5, Lymph % (Auto) 26.8, [place]% (Auto) 8.2, Eos % (Auto) 4.1, Baso % (Auto) 1.0, Absolute Neuts (auto) 2.9, Absolute Lymphs (auto) 1.31, Nucleated RBC % 0, Sodium 138, Potassium 3.8, Chloride 107, Carbon Dioxide 29.0, Anion Gap 2 L, BUN 17, Creatinine 0.73, EstimCreat Clear Calc 42.78, Est GFR (MDRD) Af Amer 97, Est GFR (MDRD) Non-Af 80, BUN/Creatinine Ratio 23.3 H, Glucose 82, Calcium 9.4 Meaningful Use Info Meaningful Use Diagnoses (Choose all that apply): None applicable Discharge Plan Admission Admit Date/Time: 09/28/23 23:40 Attending Provider: Wai Neal Primary Care Provider: Roma Grajeda Consulting Providers: Joni Torres; Patricio Franz Instructions Patient Instructions: ED Head Injury (Adult), ED Ruptured Eardrum, Traumatic Discharge Orders/Prescriptions Prescriptions: New ciprofloxacin HCl 0.3 % Drops 2 drp LEFT EAR BID 7 Days Qty: 0 0RF Rx Instructions: Continue for 7 days. cefdinir 300 mg Capsule 300 mg PO Q12 5 Days Qty: 0 0RF Continued trazodone 50 MG tablet 50 mg PO QHS amlodipine 5 MG tablet 5 mg PO DAILY amitriptyline 25 MG tablet 25 mg PO QHS Hold Instructions: Resume on 01/03/23. Hold until discussing with your primary care physician gabapentin 300 MG capsule 300 mg PO TID Hold Instructions: Resume on 12/27/22. Would recommend discussing this medication with your prescribing physician prior to resuming due to the increased risk of confusion and falls azelastine 1 SPRAY aerosol,spray 1 spray NASAL BID fluticasone propionate 1 SPRAY spray,suspension 1 spray NASAL BID tramadol 50 MG tablet 50 mg PO Q8H Hold Instructions: Resume on 12/27/22. Would recommend discussing this medication with your prescribing physician prior to resuming due to the increased risk of confusion and falls acetaminophen 500 MG tablet 500 mg PO Q6H PRN PRN (Reason: Pain 1-10 Or Fever) pantoprazole 40 MG tablet 40 mg PO BID levothyroxine 75 MCG tablet 75 mcg PO DAILY@0600 Qty: 30 0RF lisinopril 20 MG tablet 20 mg PO DAILY Referrals / Follow Up: Deangelo Scott MD [Med Staff - Active Staff] - Within 2 Weeks (Left ear TM perforation after fall.) Roma Grajeda DO [Primary Care Provider] - Within 2 Weeks Disposition Disposition (needs filled in before D/C Order can be placed): Home, Self Care Charges/Coding Visit Charges Inpatient E&M: 00548 Disch Hosp >30min 10/04/23 1333 <Electronically signed by Wai Neal MD> Cosigner Signature (if applicable): CC: Dr. Roma Grajeda DO; Dr. Wai Neal MD~ Signed [facility] Work Phone: Evaluation noteNo assessment information available [facility] Work Phone: Evaluation note* Diagnosis Onset Date Resolution Status Altered level of consciousness acute Dehydration, mild acute Generalized weakness acute Syncope acute Urinary tract infection acut e [facility] Work Phone: Evaluation note* Diagnosis Onset Date Resolution Status Urinary tract infection acut e Altered level of consciousness resolved Dehydration, mild resolved Generalized weakness resolve d [facility] Work Phone: Evaluation note* Diagnosis Onset Date Resolution Status Concussion acute History of recent fall acute Ruptured tympanic membrane a cute [facility] Work Phone: Evaluation note* Diagnosis Onset Date Resolution Status Ruptured tympanic membrane a cute Closed TBI (traumatic brain injury) acute Debility acute Eardrum rupture, bilateral a cute Urinary tract infection acut e Hypertension chronic Hypothyroidism chronic Insomnia chronic Osteoporosis chronic [facility] Work Phone: Evaluation note* Diagnosis Onset Date Resolution Status Closed TBI (traumatic brain injury) acute Debility acute Eardrum rupture, bilateral a cute Urinary tract infection acut e Hypertension chronic Hypothyroidism chronic Insomnia chronic Osteoporosis chronic [facility] Work Phone: Evaluation note* Diagnosis Peripheral exudative hemorrhagic chorioretinopathy- Primary [facility] Diagnosis Onset Date Resolution Status Admit Date Abnormal urinalysis acute Septe mb2024 2:06pm Acute UTI acute June 2:06pm Generalized weakness acute Sept emb2024 2:06pm Near syncope acute June 242024 2:06pm Vasovagal near syncope acute Se ptember 2024 2:06pm [facility] Work Phone: History and physical note Author Huma Khan [facility] Note Date/Time June 24, 2025 2:28pm [facility] Medical Records Department [address] [place] [address] H&P Exam - Hospitalist 06/24/25 1406 MR#: [id number] Acct: [id number] Name: MARLI ROSALES Rep #:[id number] : 1935 89 From: Huma Khan MD PCP: Dr. Roma Grajeda, DO Status:ADM HAIM Location: [place] [id number] HPI - General General Date of Admission: 06/24/25 Date of Service: 06/24/25 Chief Complaint: Generalized weakness HPI Narrative MARLI ROSALES, is a 89-year-old female with a history of hypothyroidism, GERD, hypertension presented [facility] ED 06/24/2025 with complaint ofgeneralized weakness and vasovagal episode. She was doing a puzzle and felt theurge to use the restroom and when she went to the bathroom she then had a bowel movement and became acutely weak and sweaty and felt like she might pass out butdoes not think she lost consciousness. She also noted feeling generally weak today with urinary frequency. In the ED temp 97.7, heart rate 76, blood pressure 101/48, respiratory rate 11 pulse ox 97% on room air. Blood pressure improved to 130s to 140s and orthostats negative. CBC within normal limits and hemoglobin 10.8 which appears to be baseline. BUN 31 creatinine 1.17, glucose 138. UA with nitrite, leuk esterase, white cells, did not note bacteria but given symptoms and UA there is high suspicion for urinary tract infection especially given her history of recurrent UTIs. Patient still feeling generallyweak, suspected due to UTI so hospitalist contacted for admission. Patient evaluated with son at bedside, reportedly she has been feeling pretty weak and tired today, did have the episode where she had small BM and then was pale and sweaty and nauseated which resolved. 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 Does note urinating almost constantly and has a history of recurrent urinary tract infections. Patient does not feel back to baseline as she still feels weak like she did this morning. Denies any fevers at home, reports for about 5 months she has had some vague left lower quadrant pain and frequently will have diarrhea though today she had formed stool. Denies any chest pain or shortness of breath, no headache or changes in vision. No nausea or vomiting, no other new or acute complaints [facility] Medical History Irritable bowel syndrome Spinal stenosis of lumbar region History of recent fall Wears hearing aid in both ears Hearing loss, left Hearing loss, right Anemia Anxiety Depression Hypothyroidism Chronic pain Osteoporosis GI bleed GERD (gastroesophageal reflux disease) Wears hearing aid History of depression Alcohol use Walker as ambulation aid Dietary restriction History of hiatal hernia History of GI bleed Celiac disease Gastric reflux Non-smoker Hoarseness History of stress test History of rheumatic fever Thyroid disease Osteoporosis Hypertension Osteoporosis Home Medications ?Medication ?Instructions ?Recorded ?Last Taken ?Type amitriptyline 25 mg tablet 25 mg PO QHS Mood 08/16/20 10/03/23 History azelastine 137 mcg (0.1 %) nasal 1 spray NASAL BID SIN US 08/16/20 10/04/23 History spray fluticasone propionate 50 1 spray NASAL BID allergies 08/16/20 10/04/23 History mcg/actuation nasal spray,suspension tramadol 50 mg tablet 50 mg PO Q8H Pain 11/09/20 1 12/05/22 History levothyroxine 75 mcg tablet 75 mcg PO DAILY@0600 Thyro id #30 11/25/20 10/04/23 Rx tabs lisinopril 20 mg tablet 20 mg PO DAILY BP 01/30/21 1 12/05/22 History Held on 11/24/24. Instructions: Hold today and start tomorrow with lower dose 10 mg daily. gabapentin 300 mg capsule 300 mg PO TID pain 07/04/24 Unknown History trazodone 50 mg tablet 50 mg PO QHS sleep 07/04/24 Unknown History cholecalciferol (vitamin D3) 125 125 mcg PO DAILY supp lement #0 caps 07/07/24 Unknown Rx mcg (5,000 unit) capsule cephalexin 500 mg capsule 500 mg PO DAILY UTI preventi on 11/22/24 Unknown History cyanocobalamin (vitamin B-12) 1,000 mcg PO DAILY #30 t abs 11/24/24 Unknown Rx 1,000 mcg tablet acetaminophen 500 mg tablet 1,000 mg PO Q8H PRN PRN ar thritis 06/24/25 Unknown History pain amlodipine 2.5 mg tablet 2.5 mg PO DAILY 06/24/25 Unk nown History cetirizine 10 mg capsule (Allergy 10 mg PO DAILY aller gies 06/24/25 Unknown History Relief (cetirizine)) cyclobenzaprine 10 mg tablet 10 mg PO TID PRN muscle s pasms 06/24/25 Unknown History hyoscyamine sulfate 0.125 mg tablet 0.125 mg PO TID HI N abd cramping 06/24/25 Unknown History pantoprazole 40 mg tablet,delayed 40 mg PO Q12H GERD 0 06/24/25 Unknown History release Allergy/AdvReac Type Severity Reaction Status Date / Time meperidine (From Demerol) Allergy Unknown NEEDS Verified 06/11/25 14:12 FOLLOW-UP morphine Allergy Unknown NEEDS Verified 06/11/25 14:12 FOLLOW-UP gluten Allergy Food Verified 06/11/25 14:12 Allergy grass pollen-perennial rye, Allergy sinus Verified 06/11/25 14:12 standar (grass pressure poll-perennial rye,std) nitrofurantoin AdvReac Mild Other Verified 06/11/25 14:12 house dust AdvReac Other Verified 06/11/25 14:12 lactose AdvReac Food Verified 06/11/25 14:12 Allergy mold AdvReac Other Verified 06/11/25 14:12 Surgical History S/P hysterectomy History of appendectomy History of biopsy of bladder History of bilateral salpingo-oophorectomy (BSO) History of cystostomy History of shoulder surgery History of right knee surgery History of back surgery History of hysterectomy History of cholecystectomy Social History household members: spouse housing: assisted living facility current occupational status: retired Smoking Status: Never smoker alcohol intake: never ROS ROS Narrative General: Denies fever/chills HENT: Denies headache, denies stuffy nose, denies sore throat EYES: Denies changes in vision Resp: Denies cough, denies shortness of breath Cardiac: Denies chest pain GI: Intermittent vague left lower quadrant abdominal pain, frequent diarrhea buttoday had formed stool, no nausea or vomiting : Urinates very frequently Extremity: Denies swelling MSK: Generalized weakness Neuro: Denies any numbness/tingling Heme: Denies any specific bleeding or bruising Skin: Denies rashes Psychiatric: No complaints voiced Vital Signs Vital Signs Vital Signs: 06/24/25 10:42 06/24/25 10:47 06/24/25 12:00 Temperature 97.7 F L Temperature Source Oral Pulse Rate 76 63 Pulse Rate [Lying] Pulse Rate [Sitting (for 1 minute prior to obtaining)] Pulse Rate [Standing (for 1 minute prior to obtaining)] Respiratory Rate 12 10 L Respiratory Effort Normal Short of Breath Respiratory Pattern Normal Blood Pressure 101/48 L 129/60 H Blood Pressure [Lying] Blood Pressure [Sitting (for 1 minute prior to obtaining)] Blood Pressure [Standing (for 1 minute prior to obtaining)] Blood Pressure Mean 65 83 Blood Pressure Mean [Lying] Blood Pressure Mean [Sitting (for 1 minute prior to obtaining)] Blood Pressure Mean [Standing (for 1 minute prior to obtaining)] Pulse Ox 97 100 Oxygen Delivery Method Room Air Room Air 06/24/25 13:00 06/24/25 13:16 Temperature Temperature Source Pulse Rate 68 Pulse Rate [Lying] 69 Pulse Rate [Sitting (for 1 minute prior to obtaining)] 69 Pulse Rate [Standing (for 1 minute prior to obtaining)] 73 Respiratory Rate 14 Respiratory Effort Respiratory Pattern Blood Pressure 132/63 H Blood Pressure [Lying] 132/63 H Blood Pressure [Sitting (for 1 minute prior to obtaining)] 145/71 H Blood Pressure [Standing (for 1 minute prior to obtaining)] 141/64 H Blood Pressure Mean 86 Blood Pressure Mean [Lying] 86 Blood Pressure Mean [Sitting (for 1 minute prior to obtaining)] 95 Blood Pressure Mean [Standing (for 1 minute prior to obtaining)] 89 Pulse Ox 98 Oxygen Delivery Method Weight Weight: 69.9 kg Body Mass Index (BMI) 32.2 Physical Exam Narrative General: Alert, appears tired but not acutely distressed HEENT: Atraumatic, normocephalic Eyes: Anicteric, normal conjunctiva, extraocular movements grossly intact Neck: Supple Respiratory: No overt wheezes or rhonchi, normal respiratory effort Cardiovascular: Regular rate and rhythm GI: Soft, nontender, nondistended Extremities: No significant pitting edema Musculoskeletal: Moving all extremities Neuro: No overt focal neurological deficits Skin: No rashes appreciated Psych: Cooperative Results Lab / Micro Data 06/24/25 10:50 06/24/25 10:50 Labs: Laboratory Results - last 24 hr 06/24/25 10:50: WBC 6.3, RBC 3.63 L, Hgb 10.8 L, Hct 34.5 L, MCV 95.0, MCH 29.8,MCHC 31.3 L, RDW Std Deviation 49.1 H, RDW Coeff of Laury 13.9, Plt Count 310, MPV9.0, Immature Gran % (Auto) 0.300, Neut % (Auto) 60.0, Lymph % (Auto) 26.2, [place]% (Auto) 10.0, Eos % (Auto) 2.7, Baso % (Auto) 0.8, Absolute Neuts (auto) 3.8, Absolute Lymphs (auto) 1.65, Nucleated RBC % 0, Sodium 134, Potassium 4.4, Chloride 98, Carbon Dioxide 23.2, Anion Gap 13, BUN 31 H, Creatinine 1.17, EstimCreat Clear Calc 28.99 L, Est GFR (MDRD) Non-Af 45 L, BUN/Creatinine Ratio 26.2 H, Glucose 138 H, Calcium 9.3 06/24/25 13:10: Urine Color Yellow, Urine Clarity Sl. Cloudy, Urine pH 6.5, Ur Specific [place] 1.010, Urine Protein 30 H, Urine Glucose (UA) Normal, Urine Ketones Negative, Urine Occult Blood 10 H, Urine Nitrite Positive H, Urine Bilirubin Negative, Urine Urobilinogen Normal, Ur Leukocyte Esterase 500 H, Urine RBC 0 SEEN, Urine WBC 25-50 SEEN, Ur Squamous Epith Cells 5-10 SEEN, UrineBacteria 0 SEEN, Urine Mucus 0 SEEN Assessment & Plan Assessment/Plan (1) Generalized weakness: (2) Abnormal urinalysis: (3) Vasovagal near syncope: PLAN: Plan # Generalized weakness suspected due to UTI -UA with leuk esterase, white cells, nitrite, bacteria not reported however given her reports of very frequent urination with history of recurrent UTIs and generalized weakness do have high suspicion for UTI -Gentle IV fluids -Urine culture sent -Continue antibiotics, she has predominantly grown E. coli sensitive to Rocephinso this to be continued # Vasovagal syncope -Patient had episode earlier today consistent with vasovagal syncope and has hadthese episodes going back 15 years and reports these are the same symptoms she usually gets -Blood pressure stable, orthostats negative, patient normal sinus rhythm on telemetry and EKG with a QTc of 440 - No shortness of breath, leg swelling or signs or symptoms that would suggest DVT/PE - No chest pain or other signs or symptoms that suggest acute coronary etiology -do not think she needs further acute workup at this time given her history and the above -Follow-up with PCP on discharge # Frequent diarrhea -Patient reports some vague left lower quadrant pain for 5 months and usually has diarrhea however today had formed stool so will not obtain stool studies -Gentle IV fluids -Will check TSH and mag -May benefit from following up with GI on discharge for further evaluation workup given chronicity #Hypothyroidism -Continue Synthroid #GERD -Continue PPI #DVT ppx: SCDs Huma Khan MD Charges/Coding Visit Charges Inpatient E&M: 14374 Init Hosp L2 06/24/25 1429 <Electronically signed by Huma Khan MD> Cosigner Signature (if applicable): CC: Dr. Roma Grajeda DO; Dr. Huma Khan MD~ Signed [facility] Work Phone: Hospital Discharge instructions Additional Instructions DISCHARGE INSTRUCTIONS PLEASE READ *Please take this with you to your next doctors appointment* -You are diagnosed with a urinary tract infection and will be discharged on antibiotics. Given the bacteria that was found in your urine you will need to be discharged on Augmentin 875 mg twice daily for 6 more days with a dose tonight. This was sent to your preferred pharmacy at the [facility] in [facility], will take this instead of the antibiotic that was prescribed before admission -Your amitriptyline, gabapentin, tramadol were held on admission as they can increase confusion and falls. Would recommend discussing these medications with your prescribing physician prior to resuming due to these increased risks -You are very dehydrated on admission, would recommend holding Lasix (furosemide). Weigh yourself daily, if you gain more than 2 pounds in 24 hours please contact your primary care physician as this may need to be resumed -If you have any home health needs, recommend contacting your primary care physician for coordination of any required services -Continue other home medications as prescribed -Recommend calling Dr. Gutierrez's office upon discharge to schedule a hospital follow-up appointment for your urinary tract infection -Please call your primary care provider's office upon discharge to schedule a hospital follow up within 1 week. -For any concerning signs or symptoms please call 911 or proceed [facility] the [facility] Work Phone: Hospital Discharge instructions Additional Instructions Blurry vision with visual acuity, slit-lamp examination notes dry eyes no abrasions no ulcerations. Use rewetting drops for moisturization. Follow-up with ophthalmology.[facility] Work Phone: Hospital Discharge instructions Additional Instructions Discharge 10/12/2023 to [facility] [place] with , [facility] PT/OT.[facility] Work Phone: Hospital Discharge instructionsAdditional Instructions Your evaluation in the Emergency Department did not reveal any acute reason for admission. However, I want to emphasize that you may be early in the course of a disease process or illness even if it is not present. For this reason you should follow-up within 24 hours for reevaluation with either your primary care physician or if necessary back here in the Emergency Department. You should return to the Emergency Department immediately if your symptoms worsen or new symptoms develop.[facility] Work Phone: Reason for referral (narrative)No reason for referral information availableWMercy Health West Hospital Work Phone: Summary Purpose Family History Relationship Condition Age at Onset Recorded Date/T elba Unknown Family History?- Unknown March 30, 2017 8:41am Family History?Heart Disease, - Unknown November 11, 2020 8:00am Family History?Heart Disease, Pulmonary Disease, - Unknown November 11, 2020 8:00am Relationship Condition Age at Onset Recorded Date/T elba Unknown Family History?- Unknown March 30, 2017 7:41am Family History?Heart Disease, - Unknown November 11, 2020 7:00am Family History?Heart Disease, Pulmonary Disease, - Unknown November 11, 2020 7:00am Relationship Condition Age at Onset Recorded Date/T elba Unknown Family History?Heart Disease, - Unknown November 11, 2020 8:00am Family History?Heart Disease, - Unknown June 11, 2025 2:12pm Family History?Heart Disease, Pulmonary Disease, - Unknown November 11, 2020 8:00am Advance Directives Advance Directive Response Recorded Date/ Time Advance Directives Yes August 7:06pm Living Will Yes April 21, 2021 12:26pm Power of Inside Sales Yes April 21 12:26pm Advance Directive Response Recorded Date/ Time Advance Directives Yes August 6:06pm Living Will Yes April 21, 2021 11:26am Power of Inside Sales Yes April 21 11:26am Advance Directive Response Recorded Date/ Time Name of Medical Power of Inside Sales (rodger walters) December 08, 2022 11:09am Advance Directives Yes August 6:06pm Living Will Yes December 08, 2022 11:09am Power of Inside Sales Yes December 08 11:09am Advance Directive Response Recorded Date/ Time Name of Medical Power of Inside Sales (rodger walters) December 08, 2022 12:09pm Name of Medical Power of Inside Sales January 18, 2023 9:04pm Advance Directives Yes August 7:06pm Living Will Yes January 18, 2023 9:04pm Power of Inside Sales Yes January 18 9:04pm Advance Directive Response Recorded Date/ Time Advance Directives Yes August 7:06pm Living Will Yes January 18, 2023 9:04pm Power of Inside Sales Yes January 18 9:04pm Advance Directive Response Recorded Date/ Time Advance Directives Yes August 6:06pm Living Will Yes January 18, 2023 8:04pm Power of Inside Sales Yes January 18 8:04pm Advance Directive Response Recorded Date/ Time Name of Medical Power of Inside Sales September 29, 2023 1:09am Advance Directives Yes August 6:06pm Living Will Yes September 29, 2 023 1:09am Power of Inside Sales Yes September 29, 2023 1:09am Advance Directive Response Recorded Date/ Time Name of Medical Power of Inside Sales September 29, 2023 1:09am Name of Medical Power of Inside Sales Richard Rosales, October 05, 2023 6:28pm Advance Directives Yes August 6:06pm Living Will Yes October 05, 2 023 6:28pm Power of Inside Sales Yes October 05, 2023 6:28pm Advance Directive Response Recorded Date/ Time Advance Directives Yes August 7:06pm Living Will Yes October 05, 023 7:28pm Power of Inside Sales Yes October 05, 2023 7:28pm Name of Medical Power of Inside Sales Richard Rosales, October 05, 2023 7:28pm Advance Directive Response Recorded Date/ Time Do you have a Healthcare Power of Inside Sales? Yes June 11, 2025 4:09pm Advance Directives Yes June 2:12pm Advance Directive Response Recorded Date/ Time Do you have a Healthcare Power of Inside Sales? Yes June 24, 2025 10:42am Do you have a Healthcare Power of Inside Sales? Yes June 11, 2025 4:09pm Advance Directives Yes June 2:12pm Chief Complaint and Reason for Visit Chief Complaint Urinary tract infect ion Urinary tract infection UTI Reason for Visit Altered level of con sciousness Dehydration, mild Generalized weakness Syncope Urinary tract infection Chief Complaint Urinary tract infect ion Urinary tract infection UTI Urinary tract infection Reason for Visit Altered level of con sciousness Dehydration, mild Generalized weakness Syncope Urinary tract infection Chief Complaint Urinary tract infect ion Urinary tract infection UTI Urinary tract infection SOMETHING IN EYE Reason for Visit Urinary tract infect ion Altered level of consciousness Dehydration, mild Generalized weakness Chief Complaint CLOSED HEAD INJURY A FTER FALL W/PERSISTENT CLOSED HEAD INJURY AFTER FALL W/PERSISTENT CLOSED HEAD INJURY AFTER FALL W/PERSISTENT CLOSED HEAD INJURY AFTER FALL W/PERSISTENT CLOSED HEAD INJURY AFTER FALL W/PERSISTENT CLOSED HEAD INJURY AFTER FALL W/PERSISTENT CLOSED HEAD INJURY AFTER FALL W/PERSISTENT Reason for Visit Concussion History of recent fall Ruptured tympanic membrane Chief Complaint CLOSED HEAD INJURY A FTER FALL W/PERSISTENT CLOSED HEAD INJURY AFTER FALL W/PERSISTENT CLOSED HEAD INJURY AFTER FALL W/PERSISTENT CLOSED HEAD INJURY AFTER FALL W/PERSISTENT CLOSED HEAD INJURY AFTER FALL W/PERSISTENT CLOSED HEAD INJURY AFTER FALL W/PERSISTENT CLOSED HEAD INJURY AFTER FALL W/PERSISTENT CLOSED HEAD INJURY AFTER FALL Reason for Visit Ruptured tympanic me mbrane Closed TBI (traumatic brain injury) Debility Eardrum rupture, bilateral Urinary tract infection Hypertension Hypothyroidism Insomnia Osteoporosis Chief Complaint CLOSED HEAD INJURY A FTER FALL Reason for Visit Closed TBI (traumati c brain injury) Debility Eardrum rupture, bilateral Urinary tract infection Hypertension Hypothyroidism Insomnia Osteoporosis Chief Complaint Admit Date RIGHT HIP PAIN June 11, 2025 2:12pm Chief Complaint Admit Date RIGHT HIP PAIN June 11, 2025 2:12pm GENERALIZED WEAKNESS, UTI June 2:06pm Reason for Visit Admit Date Abnormal urinalysis June 24, 2025 2:06pm Acute UTI June 24, 2025 2:06pm Generalized weakness June 24 2:06pm Near syncope June 24, 2025 2:06pm Vasovagal near syncope June 24, 2 025 2:06pm Additional Source Comments INFORMATION SOURCE (unrecogn ized section and content) DATE CREATED AUTHOR 03/17/2019 [facility] DATE CREATED AUTHOR AUTHOR'S ORGANIZ ATION 11/29/2024 [facility] DATE CREATED AUTHOR AUTHOR'S ORGANIZ ATION 06/16/2025 [facility] Goals (unrecognized section and content) Type Treatment Intervention Code Status: DNRC C-A, No IntubationDiscussed with: Patient Care Teams (unrecognized sec tion and content) Team Status: Active Member Role Status Dates Dr. Roma Grajeda DO Family Provider Active Dr. Roma Grajeda DO Primary Care Provider Active Team Status: Active Member Role Status Dates Dr. Roma Grajeda DO Primary Care Provider Active Dr. Quentin Melvin DO Emergency Provider Active Dr. Huma Khan MD Admit Provider, Attending Provid er, Other Provider Active Team Status: Inactive Member Role Status Dates Dr. Roma Grajeda DO Primary Care Provider, Attending Silvia byrd Active Team Status: Inactive Member Role Status Dates Dr. Roma Grajeda DO Primary Care Provider Active Dr. Quentin Melvin DO Emergency Provider Active Dr. Huma Khan MD Admit Provider, Attending Provid er Active Team Status: Active Member Role Status Dates Dr. Roma Grajeda DO Family Provider Active Roma Grajeda Primary Care Provider Active Team Status: Inactive Member Role Status Dates Roma Grajeda Primary Care Provider Active Dr. Reinier Sanchez DO Attending Provider Active Team Status: Inactive Member Role Status Dates Roma ALEXANDER Primary Care Provider Active Dr. Reinier Sanchez DO Attending Provider Active Team Status: Inactive Member Role Status Dates Dr. Speedy Brown DO Emergency Provider Active Dr. Roma Grajeda DO Primary Care Provider Active Team Status: Inactive Member Role Status Dates Dr. Speedy Brown DO Attending Provider, Emergency Provide r Active Dr. Roma Grajeda DO Primary Care Provider Active Team Status: Inactive Member Role Status Dates Dr. Roma Grajeda DO Primary Care Provide r, Attending Provider, Referring Provider Active Team Status: Inactive Member Role Status Dates Dr. Roma Grajeda DO Primary Care Provider Active Dr. Reinier Sanchez DO Attending Provider Active Team Status: Inactive Member Role Status Dates Dr. Roma Grajeda DO Primary Care Provider Active Dr. Himanshu Simpson MD Attending Provider, Referring Provider Active Team Status: Active Member Role Status Dates Dr. Roma Grajeda DO Primary Care Provider Active Dr. Nelson Holman DO Emergency Provider Active Dr. Joni Torres DO Admit Provider, Other Provid er Active Dr. Patricio Franz MD Attending Provider, Other Provider Active Team Status: Active Member Role Status Dates Dr. Roma Grajeda DO Primary Care Provider Active Dr. Nelson Holman DO Emergency Provider Active Dr. Joni Torres DO Admit Provider, Other Provid er Active Dr. Wai Neal MD Attending Provider, Other Provi dennys Active Dr. Patricio Franz MD Other Provider Active Team Status: Inactive Member Role Status Dates Dr. Roma Grajeda DO Primary Care Provider Active Dr. Nelson Holman DO Emergency Provider Active Dr. Joni Trores , DO Admit Provider, Other Provid er Active Dr. Wai Neal MD Attending Provider Active Dr. Patricio Franz MD Other Provider Active Team Status: Inactive Member Role Status Dates Dr. Roma Grajeda DO Primary Care Provider Active Dr. Whitney Gusman , DO Admit Provider, Attend ing Provider Active Team Status: Active Member Role Status Dates Dr. Roma Grajeda DO Primary Care Provide r, Attending Provider, Referring Provider Active Hand Ii Tube Bender Relationship Specialty Start Date End Date Roma Grajeda DO PCP - General Family Medicine 05/29/14 Team Status: Active Member Role/Relationship Status Dates Dr. Roma Grajeda DO Primary Care Provider Active Team Status: Inactive Member Role/Relationship Status Dates Dr. Roma Grajeda DO Primary Care Provider Active Start: April 07, 2025 Dr. Lorena Gutierrez MD Attending Provider Active Start: April 07, 2025 Team Status: Inactive Member Role/Relationship Status Dates Dr. Roma Grajeda DO Primary Care Provider Active Start: June 11, 2025 End: June 11, 2025 Dr. Myrtle Sullivan MD Emergency Provider Active S tart: June 11, 2025 End: June 11, 2025 Team Status: Active Member Role/Relationship Status Dates Dr. Roma Grajeda DO Primary care physician Active Team Status: Inactive Member Role/Relationship Status Dates Dr. Roma Grajeda DO Primary care physician Active Start: April 07, 2025 Dr. Lorena Gutierrez MD Attending physician Active Start: April 07, 2025 Team Status: Inactive Member Role/Relationship Status Dates Dr. Roma Grajeda DO Primary care physician Active Start: June 11, 2025 End: June 11, 2025 Dr. Myrtle Sullivan MD Attending physician Active Start: June 11, 2025 End: June 11, 2025 Dr. Myrtle Sullivan MD Emergency Departmen t Physician Active Start: June 11, 2025 End: June 11, 2025 Team Status: Active Member Role/Relationship Status Dates Dr. Roma Grajeda DO Primary care physician Active Start: June 24, 2025 Dr. Biju Quezada DO Emergency Departmen t Physician Active Start: June 24, 2025 Dr. Huma Khan MD Admitting physician Active Start: June 24, 2025 Dr. 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 Melanoma right eye FOR RECORDS PERTAINING TO PATIENTS WHO ARE [...] BE BASED ON THE PRIMARY CLINICAL RECORDS. [employer] [facility]. provides no warranty or guarantee of the accuracy or completeness of information in this document.
[2025-06-24] MEDS: MELATONIN 10 MG TABLET PO (20:57)
[2025-06-25 06:04] LABS: Hematocrit 34.3 % (37-47); Hemoglobin 11.1 g/dL (12.0-15.0); Immature Granulocytes Count 0.010 X10^3/uL (0.0-0.0); Mean Corp Hgb Conc 32.4 g/dL (32-36); Mean Corpuscular Volume 93.0 fL (81-99); Mean Platelet Vol. 8.8 fl (6.2-12.0); NRBC Flagged by Analyzer 0 % (0-5); Platelet Count 283 K/mm3 (150-450); RBC Distribution Width CV 13.9 % (11.6-14.6); RBC Distribution Width SD 47.8 fl (35.1-43.9); Red Blood Count 3.69 M/mm3 (4.2-5.4); White Blood Count 5.8 K/mm3 (4.4-11.0)
[2025-06-25 06:05] VITALS: BP 149/72; PULSE 66; RESP 16; TEMP 36.3; O2SAT 98
[2025-06-25 06:50] LABS: Anion Gap 12 (5-15); BUN 22 mg/dL (4-19); BUN/Creat Ratio 26.7 RATIO (10-20); Calcium,Total 9.4 mg/dL (7.6-11.0); Carbon Dioxide 22.9 mmol/L (21.0-32.0); Chloride 104 mmol/L (98-108); Estimated Creatinine Clearance 41.37 ml/min (50-250); Glucose 89 mg/dL (70-99); Magnesium 2.4 mg/dL (1.5-2.2); Potassium 4.5 mmol/L (3.3-5.1)
--- NOTE | 2025-06-25 07:29 | PCM.PN.HOSP ---
Reason for Visit Chief Complaint: Generalized weakness Subjective Subjective Patient is an 89-year-old who was brought to the emergency department after apparently passing out while having a bowel movement. He was also found to have UTI on admission admitted to regular nursing floor for further management Objective Data Objective Data Vital Signs: Vital Signs Temp Pulse Resp BP Pulse Ox O2 Del Method 97.4 F L 66 16 149/72 H 98 Room Air 06/25/25 06:05 06/25/25 06:05 06/25/25 06:05 06/25/25 06:05 06/25/25 06:05 06/25/25 06:05 Oxygen Delivery Method Room Air Weight: 69.9 kg Body Mass Index (BMI) 32.2 Intake & Output: Intake and Output for Last 24 Hours 06/23/25 06/24/25 06/25/25 23:59 23:59 23:59 Intake Total 920 / 920 795 / 795 Balance 920 / 920 795 / 795 Lab / Micro Data 06/25/25 05:49 06/25/25 05:49 Labs: Laboratory Results - last 24 hr 06/24/25 10:50: WBC 6.3, RBC 3.63 L, Hgb 10.8 L, Hct 34.5 L, MCV 95.0, MCH 29.8, MCHC 31.3 L, RDW Std Deviation 49.1 H, RDW Coeff of Laury 13.9, Plt Count 310, MPV 9.0, Immature Gran % (Auto) 0.300, Neut % (Auto) 60.0, Lymph % (Auto) 26.2, Thayer % (Auto) 10.0, Eos % (Auto) 2.7, Baso % (Auto) 0.8, Absolute Neuts (auto) 3.8, Absolute Lymphs (auto) 1.65, Nucleated RBC % 0, Sodium 134, Potassium 4.4, Chloride 98, Carbon Dioxide 23.2, Anion Gap 13, BUN 31 H, Creatinine 1.17, Estim Creat Clear Calc 28.99 L, Est GFR (MDRD) Non-Af 45 L, BUN/Creatinine Ratio 26.2 H, Glucose 138 H, Calcium 9.3 06/24/25 13:10: Urine Color Yellow, Urine Clarity Sl. Cloudy, Urine pH 6.5, Ur Specific Canvas 1.010, Urine Protein 30 H, Urine Glucose (UA) Normal, Urine Ketones Negative, Urine Occult Blood 10 H, Urine Nitrite Positive H, Urine Bilirubin Negative, Urine Urobilinogen Normal, Ur Leukocyte Esterase 500 H, Urine RBC 0 SEEN, Urine WBC 25-50 SEEN, Ur Squamous Epith Cells 5-10 SEEN, Urine Bacteria 0 SEEN, Urine Mucus 0 SEEN 06/25/25 05:49: WBC 5.8, RBC 3.69 L, Hgb 11.1 L, Hct 34.3 L, MCV 93.0, MCH 30.1, MCHC 32.4, RDW Std Deviation 47.8 H, RDW Coeff of Laury 13.9, Plt Count 283, MPV 8.8, Immature Gran % (Auto) 0.200, Neut % (Auto) 65.4, Lymph % (Auto) 21.1, Thayer % (Auto) 9.2, Eos % (Auto) 3.1, Baso % (Auto) 1.0, Absolute Neuts (auto) 3.8, Absolute Lymphs (auto) 1.22, Nucleated RBC % 0, Sodium 138, Potassium 4.5, Chloride 104, Carbon Dioxide 22.9, Anion Gap 12, BUN 22 H, Creatinine 0.82, Estim Creat Clear Calc 41.37 L, Est GFR (MDRD) Non-Af 69, BUN/Creatinine Ratio 26.7 H, Glucose 89, Calcium 9.4, Magnesium 2.4 H, TSH 1.280 Physical Exam Narrative GENERAL: cooperative HEENT: Atraumatic; normocephalic EYES; Anicteric, Normal Conjunctiva NECK; supple, normal thyroid, RESPIRATORY: Diminished to auscultation CARDIOVASCULAR: Regular S1 S2, GI: soft, normoactive bowel sounds, : No Renal angle tenderness; EXTREMITIES: No edema, no clubbing, MUSCULOSKELETAL: no muscle wasting NEURO: Awake; no lateralizing signs. SKIN: No Rash PSYCH; Flat affect Assessment & Plan Assessment/Plan (1) Generalized weakness: (2) Abnormal urinalysis: (3) Vasovagal near syncope: PLAN: Plan Patient is an 89-year-old who was brought to the emergency department after apparently passing out while having a bowel movement. He was also found to have UTI on admission admitted to regular nursing floor for further management 1. Vasovagal syncope ? Admitted to a monitored bed for continuous telemetry. Orthostatics obtained on admission came back negative. EKG demonstrated sinus rhythm with QTc of 440 2. Acute complicated cystitis ? Patient started on ceftriaxone urine culture sent 3. Hypertension ? Blood pressure controlled, home medications continued with dose adjustment as needed 4. Hypothyroidism ? Patient is on levothyroxine home dose continued 5. GERD ? On PPI continue 6. DVT prophylaxis ? Subcu Lovenox Time spent in the patient's overall evaluation,decision-making process, review of diagnostic data, adjustment of management, discussion with other providers, nursing nursing and ancillary staff involved in patient's care documentation, 40 Minutes Charges/Coding Visit Charges Inpatient E&M: 29572 Subs Hosp L2
[2025-06-25 08:35] VITALS: BP 138/73; PULSE 63; RESP 17; TEMP 36.5; O2SAT 96
[2025-06-25] MEDS: 0.9% Saline Lock 10 ML Syringe IV ×2 (09:19→20:22)
[2025-06-25] MEDS: Azelastine HCl NASAL.SRY 1 SPRAY NASAL ×2 (09:19→20:23)
[2025-06-25] MEDS: Fluticasone 0.05% 1 SPRAY NASAL.SRY NASAL ×2 (09:20→20:23)
[2025-06-25] MEDS: Senna/Docusate Sodium 1 Tablet 2 TABLET PO (12:04)
[2025-06-25 14:10] VITALS: BP 152/67; PULSE 72; RESP 17; TEMP 37.2; O2SAT 97
--- NOTE | 2025-06-25 15:22 | CASEMGMT ---
DIANA Met with patient to complete ORTIZ form. ORTIZ form and its content were verbally explained and patient's questions were answered to the best of my ability.? Patient voiced understanding but was unable to sign form d/t being dizzy.? Patient provided a copy of ORTIZ form with this writers contact information attached and original placed in patient's chart.? Patient had no further questions. Charmaine Mcqueen, Discharge Planning Asst
--- NOTE | 2025-06-25 16:28 | CASEMGMT ---
Addendum entered by Charmaine Mcqueen 06/26/25 09:40: Per Mar @ [facility], erin is appropriate to return. SW updated. Original Note: Discharge Planning Updates faxed to [facility] attn; Mar. Fax confirmation rec'd. Charmaine Mcqueen DC Planning Asst.
[2025-06-25 20:14] VITALS: BP 143/70; PULSE 71; RESP 16; TEMP 36.6; O2SAT 97
[2025-06-25] MEDS: MELATONIN 10 MG TABLET PO (20:24)
[2025-06-26 02:12] VITALS: BP 142/64; PULSE 75; RESP 16; TEMP 36.4; O2SAT 93
[2025-06-26 04:40] LABS: Hematocrit 30.4 % (37-47); Hemoglobin 10.0 g/dL (12.0-15.0); Immature Granulocytes Count 0.010 X10^3/uL (0.0-0.0); Mean Corp Hgb Conc 32.9 g/dL (32-36); Mean Corpuscular Volume 93.5 fL (81-99); Mean Platelet Vol. 9.2 fl (6.2-12.0); NRBC Flagged by Analyzer 0 % (0-5); Platelet Count 275 K/mm3 (150-450); RBC Distribution Width CV 14.1 % (11.6-14.6); RBC Distribution Width SD 48.1 fl (35.1-43.9); Red Blood Count 3.25 M/mm3 (4.2-5.4); White Blood Count 5.2 K/mm3 (4.4-11.0)
[2025-06-26] MEDS: Glycerin/Hypromellose/PEG400 15 ml Bottle 2 DRP EACH EYE ×2 (05:17→09:18)
[2025-06-26 05:30] LABS: Anion Gap 12 (5-15); BUN 21 mg/dL (4-19); BUN/Creat Ratio 29.5 RATIO (10-20); Calcium,Total 9.2 mg/dL (7.6-11.0); Carbon Dioxide 21.6 mmol/L (21.0-32.0); Chloride 102 mmol/L (98-108); Estimated Creatinine Clearance 42.40 ml/min (50-250); Glucose 87 mg/dL (70-99); Magnesium 2.2 mg/dL (1.5-2.2); Potassium 4.2 mmol/L (3.3-5.1)
--- NOTE | 2025-06-26 07:23 | PN.HOSP_ITS ---
Reason for Visit Chief Complaint: Generalized weakness Subjective Subjective ?06/26/2025; patient urine cultures came back positive for ESBL E. coli ceftriaxone discontinued patient started on ertapenem 1 g every 24 hours. Patient blood pressure control not optimal this a.m. made adjustment Objective Data Objective Data Vital Signs: Vital Signs Temp Pulse Resp BP Pulse Ox O2 Del Method 97.6 F L 75 16 142/64 H 93 Room Air 06/26/25 02:12 06/26/25 02:12 06/26/25 02:12 06/26/25 02:12 06/26/25 02:12 06/26/25 02:12 Oxygen Delivery Method Room Air Weight: 69.9 kg Body Mass Index (BMI) 32.2 Intake & Output: Intake and Output for Last 24 Hours 06/24/25 06/25/25 06/26/25 23:59 23:59 23:59 Intake Total 920 / 920 845 / 1045 350 / 350 Balance 920 / 920 845 / 1045 350 / 350 Lab / Micro Data 06/26/25 03:30 06/26/25 03:30 Labs: Laboratory Results - last 24 hr 06/26/25 03:30: WBC 5.2, RBC 3.25 L, Hgb 10.0 L, Hct 30.4 L, MCV 93.5, MCH 30.8, MCHC 32.9, RDW Std Deviation 48.1 H, RDW Coeff of Laury 14.1, Plt Count 275, MPV 9.2, Immature Gran % (Auto) 0.200, Neut % (Auto) 57.6, Lymph % (Auto) 27.0, Cowley % (Auto) 10.0, Eos % (Auto) 4.2, Baso % (Auto) 1.0, Absolute Neuts (auto) 3.0, Absolute Lymphs (auto) 1.41, Nucleated RBC % 0, Sodium 136, Potassium 4.2, Chloride 102, Carbon Dioxide 21.6, Anion Gap 12, BUN 21 H, Creatinine 0.71, E stim Creat Clear Calc 42.40 L, Est GFR (MDRD) Non-Af 82, BUN/Creatinine Ratio 29.5 H, Glucose 87, Calcium 9.2, Phosphorus 3.6, Magnesium 2.2 Micro: Microbiology 06/24/25 13:10 Urine, Clean Catch Urine Culture - Preliminary 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 SKIN: No Rash PSYCH; Flat affect Assessment & Plan Assessment/Plan (1) Generalized weakness: (2) Abnormal urinalysis: (3) Vasovagal near syncope: PLAN: Plan Patient is an 89-year-old who was brought to the emergency department after apparently passing out while having a bowel movement. He was also found to have UTI on admission admitted to regular nursing floor for further management 1. Vasovagal syncope ? Admitted to a monitored bed for continuous telemetry. Orthostatics obtained on admission came back negative. EKG demonstrated sinus rhythm with QTc of 440 2. Acute complicated cystitis ? 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 Patient urine cultures came back positive for ESBL E. coli ceftriaxone discontinued patient started on ertapenem 1 g every 24 hours; consult placed to ID 3. Hypertension ? Blood pressure controlled, home medications continued with dose adjustment as needed ? 06/26/2025; patient blood pressure control not optimal this a.m. made further adjustment 4. Hypothyroidism ? Patient is on levothyroxine home dose continued 5. GERD ? On PPI continue 6. Anemia ? Secondary to chronic disorder monitoring H&H and transfuse if patient becomes symptomatic or hemoglobin falls below 7 7. DVT prophylaxis ? Subcu Lovenox Time spent in the patient's overall evaluation,decision-making process, review of diagnostic data, adjustment of management, discussion with other providers, nursing nursing and ancillary staff involved in patient's care documentation, 38 Minutes Charges/Coding Visit Charges Inpatient E&M: 60022 Subs Hosp L2
[2025-06-26 09:04] VITALS: BP 179/82; PULSE 85; RESP 16; TEMP 36.3; O2SAT 99
[2025-06-26] MEDS: Senna/Docusate Sodium 1 Tablet 2 TABLET PO (09:11)
[2025-06-26] MEDS: Fluticasone 0.05% 1 SPRAY NASAL.SRY NASAL (09:12)
[2025-06-26] MEDS: Azelastine HCl NASAL.SRY 1 SPRAY NASAL (09:12)
[2025-06-26] MEDS: 0.9% Saline Lock 10 ML Syringe IV (09:13)
[2025-06-26] MEDS: Ertapenem Sod 1 GM in 0.9% Normal Saline (50mL MB+) 50 ML IV (09:58)
[2025-06-26] MEDS: 0.9% Normal Saline (250mL Bag) 250 ML IV (10:00)
[2025-06-26] MEDS: Polyethylene Glycol 3350 17 GM PACKET PO (10:03)
--- NOTE | 2025-06-26 10:28 | CON.PCM.ID_ITS ---
Assessment & Plan Assessment/Plan (1) Acute UTI: PLAN: Ucx with esbl ecoli, small amount enterococcus-like. Feeling better, on ertapenem now. Has nitrofurantoin allergy. Plan for discharge with 3 days po bactrim DS bid. Will follow, thank you HPI Consult Data Date of Consult: 06/26/25 HPI Narrative Reason for Consultation: uti HPI Narrative: KAELA ALDANA, is a 89 F who presented 06/24 after syncopal episode. Had some weakness and increased urine frequency but no dysuria recently. No fever, no abd pain, no cough or dyspnea. Came to ED, admitted on ceftriaxone then changed to ertapenem. Feeling better this AM. Full ROS performed and neg except as noted above. [facility] Medical History Irritable bowel syndrome Spinal stenosis of lumbar region History of recent fall Wears hearing aid in both ears Hearing loss, left Hearing loss, right Anemia Anxiety Depression Hypothyroidism Chronic pain Osteoporosis GI bleed GERD (gastroesophageal reflux disease) Wears hearing aid History of depression Alcohol use Walker as ambulation aid Dietary restriction History of hiatal hernia History of GI bleed Celiac disease Gastric reflux Non-smoker Hoarseness History of stress test History of rheumatic fever Thyroid disease Osteoporosis Hypertension Osteoporosis Home Medications ?Medication ?Instructions ?Recorded ?Last Taken ?Type amitriptyline 25 mg tablet 25 mg PO QHS Mood 08/16/20 10/03/23 History azelastine 137 mcg (0.1 %) nasal 1 spray NASAL BID SIN US 08/16/20 10/04/23 History spray fluticasone propionate 50 1 spray NASAL BID allergies 08/16/20 10/04/23 History mcg/actuation nasal spray,suspension tramadol 50 mg tablet 50 mg PO Q8H Pain 11/09/20 1 12/05/22 History levothyroxine 75 mcg tablet 75 mcg PO DAILY@0600 Thyro id #30 11/25/20 10/04/23 Rx tabs lisinopril 20 mg tablet 20 mg PO DAILY BP 01/30/21 1 12/05/22 History Held on 11/24/24. Instructions: Hold today and start tomorrow with lower dose 10 mg daily. gabapentin 300 mg capsule 300 mg PO TID pain 07/04/24 Unknown History trazodone 50 mg tablet 50 mg PO QHS sleep 07/04/24 Unknown History cholecalciferol (vitamin D3) 125 125 mcg PO DAILY supp lement #0 caps 07/07/24 Unknown Rx mcg (5,000 unit) capsule cephalexin 500 mg capsule 500 mg PO DAILY UTI preventi on 11/22/24 Unknown History cyanocobalamin (vitamin B-12) 1,000 mcg PO DAILY #30 t abs 11/24/24 Unknown Rx 1,000 mcg tablet acetaminophen 500 mg tablet 1,000 mg PO Q8H PRN PRN ar thritis 06/24/25 Unknown History pain amlodipine 2.5 mg tablet 2.5 mg PO DAILY 06/24/25 Unk nown History cetirizine 10 mg capsule (Allergy 10 mg PO DAILY aller gies 06/24/25 Unknown History Relief (cetirizine)) cyclobenzaprine 10 mg tablet 10 mg PO TID PRN muscle s pasms 06/24/25 Unknown History hyoscyamine sulfate 0.125 mg tablet 0.125 mg PO TID UT N abd cramping 06/24/25 Unknown History pantoprazole 40 mg tablet,delayed 40 mg PO Q12H GERD 0 06/24/25 Unknown History release Allergy/AdvReac Type Severity Reaction Status Date / Time meperidine (From Demerol) Allergy Unknown NEEDS Verified 06/11/25 14:12 FOLLOW-UP morphine Allergy Unknown NEEDS Verified 06/11/25 14:12 FOLLOW-UP gluten Allergy Food Verified 06/11/25 14:12 Allergy grass pollen-perennial rye, Allergy sinus Verified 06/11/25 14:12 standar (grass pressure poll-perennial rye,std) nitrofurantoin AdvReac Mild Other Verified 06/11/25 14:12 house dust AdvReac Other Verified 06/11/25 14:12 lactose AdvReac Food Verified 06/11/25 14:12 Allergy mold AdvReac Other Verified 06/11/25 14:12 Surgical History S/P hysterectomy History of appendectomy History of biopsy of bladder History of bilateral salpingo-oophorectomy (BSO) History of cystostomy History of shoulder surgery History of right knee surgery History of back surgery History of hysterectomy History of cholecystectomy Social History household members: spouse housing: assisted living facility current occupational status: retired Smoking Status: Never smoker alcohol intake: never Physical Exam Const alert and no apparent distress General Appearance: cooperative HEENT normocephalic and head/scalp atraumatic Eyes PERRL and EOMs intact bilaterally Neck supple and No nodes Resp normal air movement and clear to auscultation bilaterally Cardio regular rate and regular rhythm GI soft to palpation, non-tender and non-distended Extremity General Extremity: Negative for edema Skin no rashes or lesions noted Neuro CN's II-XII intact bilaterally Lab / Micro Data Attestation: I reviewed the patient's lab results. 06/26/25 03:30 06/26/25 03:30 Labs: Laboratory Results - last 24 hr 06/26/25 03:30: WBC 5.2, RBC 3.25 L, Hgb 10.0 L, Hct 30.4 L, MCV 93.5, MCH 30.8, MCHC 32.9, RDW Std Deviation 48.1 H, RDW Coeff of Laury 14.1, Plt Count 275, MPV 9.2, Immature Gran % (Auto) 0.200, Neut % (Auto) 57.6, Lymph % (Auto) 27.0, [place] % (Auto) 10.0, Eos % (Auto) 4.2, Baso % (Auto) 1.0, Absolute Neuts (auto) 3.0, Absolute Lymphs (auto) 1.41, Nucleated RBC % 0, Sodium 136, Potassium 4.2, Chloride 102, Carbon Dioxide 21.6, Anion Gap 12, BUN 21 H, Creatinine 0.71, E stim Creat Clear Calc 42.40 L, Est GFR (MDRD) Non-Af 82, BUN/Creatinine Ratio 29.5 H, Glucose 87, Calcium 9.2, Phosphorus 3.6, Magnesium 2.2 Micro: Microbiology 06/24/25 13:10 Urine, Clean Catch Urine Culture - Preliminary Escherichia coli GPC Poss Enterococcus sp
--- NOTE | 2025-06-26 10:41 | CASEMGMT ---
Social Work- ALLI spoke with pt son & POA, Go, who asked ALIL to coordinate with his Gabi regarding d/c plans. ALLI called Gabi who reports that pt will return to [facility] at d/c. Gabi will transport. ALLI remains available to follow. Plan: ELIZABETH Contreras
--- NOTE | 2025-06-26 11:23 | PCM.DC.SUM ---
Providers Date of Admission: 06/24/25 Date of Discharge: 06/26/25 Primary Care Physician: Dr. Roma Grajeda, Consultations 06/26/25 07:45 Consult: Infectious Disease Routine Consulting Provider: Yohannes Mccrary Reason for Consult: esbl E coli Uti EMERGENT Consult: No MD Notified: Yes Date Notified: 06/26/25 Time Notified: 07:45 Method of Notification: Text Reason For Visit: GENERALIZED WEAKNESS, UTI Diagnosis Discharge Diagnosis (1) Acute UTI: Status: Acute Code(s): N39.0 - Urinary tract infection, site not specified Plan Patient is an 89-year-old who was brought to the emergency department after apparently passing out while having a bowel movement. He was also found to have UTI on admission admitted to regular nursing floor for further management 1. Vasovagal syncope ? Admitted to a monitored bed for continuous telemetry. Orthostatics obtained on admission came back negative. EKG demonstrated sinus rhythm with QTc of 440 2. Acute complicated cystitis ? 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 Patient urine cultures came back positive for ESBL E. coli ceftriaxone discontinued patient started on ertapenem 1 g every 24 hours; consult placed to ID. ID recommended for patient to be discharged home on Bactrim DS for 3 days 3. Hypertension ? Blood pressure controlled, home medications continued with dose adjustment as needed ? 06/26/2025; patient blood pressure control not optimal this a.m. made further adjustment 4. Hypothyroidism ? Patient is on levothyroxine home dose continued 5. GERD ? On PPI continue 6. Anemia ? Secondary to chronic disorder monitoring H&H and transfuse if patient becomes symptomatic or hemoglobin falls below 7 7. DVT prophylaxis ? Subcu Lovenox Time spent in the patient's overall evaluation,decision-making process, review of diagnostic data, adjustment of management, discussion with other providers, nursing nursing and ancillary staff involved in patient's care documentation, 38 Minutes Medications at Discharge Home Medications amitriptyline 25 mg tablet 25 mg PO QHS Mood 08/16/20 azelastine 137 mcg (0.1 %) nasal spray 1 spray NASAL BID SINUS 08/16/20 fluticasone propionate 50 mcg/actuation nasal spray,suspension 1 spray NASAL BID allergies 08/16/20 tramadol 50 mg tablet 50 mg PO Q8H Pain 11/09/20 levothyroxine 75 mcg tablet 75 mcg PO DAILY@0600 Thyroid #30 tabs 11/25/20 lisinopril 20 mg tablet 20 mg PO DAILY BP 01/30/21 gabapentin 300 mg capsule 300 mg PO TID pain 07/04/24 trazodone 50 mg tablet 50 mg PO QHS sleep 07/04/24 cholecalciferol (vitamin D3) 125 mcg (5,000 unit) capsule 125 mcg PO DAILY supplement #0 caps 07/07/24 cephalexin 500 mg capsule 500 mg PO DAILY UTI prevention 11/22/24 cyanocobalamin (vitamin B-12) 1,000 mcg tablet 1,000 mcg PO DAILY #30 tabs 11/24/24 acetaminophen 500 mg tablet 1,000 mg PO Q8H PRN PRN arthritis pain 06/24/25 amlodipine 2.5 mg tablet 2.5 mg PO DAILY 06/24/25 cetirizine 10 mg capsule (Allergy Relief (cetirizine)) 10 mg PO DAILY allergies 06/24/25 cyclobenzaprine 10 mg tablet 10 mg PO TID PRN muscle spasms 06/24/25 hyoscyamine sulfate 0.125 mg tablet 0.125 mg PO TID PRN abd cramping 06/24/25 pantoprazole 40 mg tablet,delayed release 40 mg PO Q12H GERD 06/24/25 sulfamethoxazole 800 mg-trimethoprim 160 mg tablet (Bactrim DS) 1 tab PO BID #6 tabs 06/26/25 Physical Exam Narrative GENERAL: cooperative HEENT: Atraumatic; normocephalic EYES; Anicteric, Normal Conjunctiva NECK; supple, normal thyroid, RESPIRATORY: Diminished to auscultation CARDIOVASCULAR: Regular S1 S2, GI: soft, normoactive bowel sounds, : No Renal angle tenderness; EXTREMITIES: No edema, no clubbing, MUSCULOSKELETAL: no muscle wasting NEURO: Awake; no lateralizing signs. SKIN: No Rash PSYCH; Flat affect Weight / BMI Weight Weight: 69.9 kg Body Mass Index (BMI) 32.2 ABG / Lab / Microbiology Data 06/26/25 03:30 06/26/25 03:30 Laboratory: Laboratory Results - last 24 hr 06/26/25 03:30: WBC 5.2, RBC 3.25 L, Hgb 10.0 L, Hct 30.4 L, MCV 93.5, MCH 30.8, MCHC 32.9, RDW Std Deviation 48.1 H, RDW Coeff of Laury 14.1, Plt Count 275, MPV 9.2, Immature Gran % (Auto) 0.200, Neut % (Auto) 57.6, Lymph % (Auto) 27.0, [place] % (Auto) 10.0, Eos % (Auto) 4.2, Baso % (Auto) 1.0, Absolute Neuts (auto) 3.0, Absolute Lymphs (auto) 1.41, Nucleated RBC % 0, Sodium 136, Potassium 4.2, Chloride 102, Carbon Dioxide 21.6, Anion Gap 12, BUN 21 H, Creatinine 0.71, Estim Creat Clear Calc 42.40 L, Est GFR (MDRD) Non-Af 82, BUN/Creatinine Ratio 29.5 H, Glucose 87, Calcium 9.2, Phosphorus 3.6, Magnesium 2.2 Microbiology: Microbiology 06/24/25 13:10 Urine, Clean Catch Urine Culture - Preliminary Escherichia coli GPC Poss Enterococcus sp D/C Instructions Discharge Activity: Return to Normal Activity Call your doctor if you observe: Fever of 101 or Higher, Shortness of breath, Fainting spells and Chest pain DC O2, CPAP, BIPAP Needs Home O2 Discharge instructions: No Meaningful Use Info Meaningful Use Meaningful Use Diagnoses (Choose all that apply): None applicable Discharge Plan Admission Admit Date/Time: 06/24/25 14:06 Attending Provider: Joni Cochran Primary Care Provider: Roma Grajeda Consulting Providers: Huma Khan; Yohannes Mccrary Discharge Orders/Prescriptions Prescriptions: New sulfamethoxazole-trimethoprim [Bactrim DS] 800-160 mg tablet 1 tab PO BID Qty: 6 0RF Continued amitriptyline 25 MG tablet 25 mg PO QHS azelastine 1 SPRAY aerosol,spray 1 spray NASAL BID fluticasone propionate 1 SPRAY spray,suspension 1 spray NASAL BID tramadol 50 MG tablet 50 mg PO Q8H levothyroxine 75 MCG tablet 75 mcg PO DAILY@0600 Qty: 30 0RF Patient Comments: skip Sunday lisinopril 20 MG tablet 20 mg PO DAILY trazodone 50 mg tablet 50 mg PO QHS gabapentin 300 mg capsule 300 mg PO TID cholecalciferol (vitamin D3) 125 mcg (5,000 unit) Capsule 125 mcg PO DAILY Qty: 0 0RF cephalexin 500 mg capsule 500 mg PO DAILY cyanocobalamin (vitamin B-12) 1,000 mcg tablet 1,000 mcg PO DAILY Qty: 30 0RF amlodipine 2.5 mg tablet 2.5 mg PO DAILY Allergy Relief (cetirizine) 10 mg capsule 10 mg PO DAILY cyclobenzaprine 10 mg tablet 10 mg PO TID PRN (Reason: muscle spasms) hyoscyamine sulfate 0.125 mg tablet 0.125 mg PO TID PRN (Reason: abd cramping) acetaminophen 500 mg Tablet 1,000 mg PO Q8H PRN PRN (Reason: arthritis pain) pantoprazole 40 MG tablet 40 mg PO Q12H Referrals / Follow Up: Roma Grajeda DO [Primary Care Provider, Family Practice] Disposition Disposition (needs filled in before D/C Order can be placed): Assisted Living Charges/Coding Visit Charges Inpatient E&M: 27896 Disch Hosp >30min
--- NOTE | 2025-06-26 12:40 | CASEMGMT ---
Social Work- SW received notice of discharge readiness. SW updated DCA, pt son, and pt dtr-in-law. Pt updated. Pt dtr in law will transport. Bedside nurse updated. Plan: return to [place] ELIZABETH Núñez
--- NOTE | 2025-06-26 13:31 | CASEMGMT ---
Discharge Planning Discharge Summary faxed to [facility] @ [place]. Fax confirmation rec'jessika. Charmaine Mcqueen DC Planning Asst.
[2025-06-26 14:02] VITALS: BP 165/77; PULSE 80; RESP 17; TEMP 36.6; O2SAT 98
--- NOTE | 2025-06-26 15:31 | CASEMGMT ---
Social Work- SW received a call from assisted living reporting that pt is allergic to bactrim that pt was d/c on. Assisted living reports that pt is also allergic to Cipro and Macrobid. ALLI updated hospitalist who deferred to ID. SW updated ID who reports that new abx, fosfomycin, ordered and sent to [facility] pharmacy. ALLI called and updated Graciela, nurse, at [facility] who reports that pt [id number] is present and they will update her on ability to picker tender medication at [facility] pharmacy. ELIZABETH Resendiz
== END 2025-06-26 14:40 | disposition home or self-care (01) ==
LOC: ED 13:57 → MS3 14:23
PROVIDERS: Admitting Provider Internal Medicine; Emergency Provider Emergency Medicine; PCP Family Medicine; Visit Provider Internal Medicine
DX: R55 Syncope and collapse (principal); N30.00 Acute cystitis without hematuria; B96.20 Unspecified Escherichia coli [E. coli] as the cause of diseases classified elsewhere; I10 Essential (primary) hypertension; Z79.899 Other long term (current) drug therapy; Z79.890 Hormone replacement therapy; G89.29 Other chronic pain; R53.1 Weakness; Z16.12 Extended spectrum beta lactamase (ESBL) resistance; K21.9 Gastro-esophageal reflux disease without esophagitis; Z79.51 Long term (current) use of inhaled steroids; Z79.891 Long term (current) use of opiate analgesic; E03.9 Hypothyroidism, unspecified; R19.7 Diarrhea, unspecified; D63.8 Anemia in other chronic diseases classified elsewhere
CPT/HCPCS: 36415; 80048; 81001; 83735; 84100; 84443; 85025; 87077; 87086; 87088; 87186; 93005; 96361; 96365; 96366; 96367; 97162; 97166; 97530; 99221; 99285; A4216; G0378

== ENCOUNTER → 2025-08-21 15:00 | Outpatient (REF) | payer MEDICARE, SELFPAY ==
--- OUTSIDE RECORDS SUMMARY | 2025-08-21 18:07 | XMS RPT_ITS | CCD ---
Author Organization [facility] Care Team Providers Care Representative Government Relations Name Role Phone Rupinder Zhu LPN Unavailable Unavailab Dr. Roma Talavera Primary Care Provider Dr. Quentin Melvin Emergency Provider Dr. Huma Khan Admit Provider Dr. Huma Khan Attending Provider Dr. Huma Khan Other Provider Dr. Roma Grajeda Primary Care Provider [phone] Dr. Quentin Melvin Emergency Provider Dr. Huma Khan Admit Provider Dr. Huma Khan Attending Provider Dr. Huma Khan Other Provider Dr. Rmoa Grajeda Primary Care Provider [phone] Dr. Nelson Holman Emergency Provider [phone] Dr. Joni Torres Admit Provider Unavailabl e Dr. Joni Torres Other Provider Unavailabl e Dr. Patricio Franz Attending Provider Dr. Patricio Franz Other Provider Dr. Wai Neal Attending Provider Dr. Wai Neal Other Provider Roma Grajeda DO Primary Care Provider JAZMIN DAVIES Referring Unavailable SOL, ZANE D Attending Unavailable MALYS, ROAM A Primary Care Unavailable SOL, ZANE D Referring Unavailable MALYS, ROMA A Primary Care Unavailable Nicic MARVIN, Dr. Brandon Primary Care Provider Brenad LE, Dr. Carrillo Attending Provider Nate LE, Dr. Iraheta Emergency Provider Unavailab le Nicci MARVIN, Dr. Brandon Primary Care Physician Brenda LE, Dr. Carrillo Attending Physician Nate LE, Dr. Iraheta Attending Physician Unavaila ham Sullivan MD, Dr. Iraheta Emergency Department Physici an Unavailable Pilar MARVIN, Dr. Ivy Emergency Department Physici an Bill LE, Dr. Finn Admitting Physician Bill LE, Dr. Finn Attending Physician Bill LE, Dr. Finn Nurse Practitioner Sammie LE, Dr. Quinones Attending Physician Unavail able Demetra LE, Dr. Sheffield Nurse Practitioner [phone] Sammie LE, Dr. Quinones Nurse Practitioner Unavaila Huma Choudhary Consulting Unavailable Huma Khan Admitting Unavailable Malys, Roma Primary Care Unavailable Huma Khan Attending Unavailable Joni Torres Consulting Unavailable Joni Torres Admitting Unavailable de Joni An Referring Unavailable Wai Neal Attending Unavailable Malys, Roma Primary Care Unavailable Reinier Rojas Consulting Unavailable Ángel, Wai Consulting Unavailable Reinier Rojas Attending Unavailable Saad Larose Attending Unavailable Malys, Roma Primary Care Unavailable Joni Torres Attending Unavailable Joni Cochran Attending Unavailable Yohannes Mccrary Consulting Unavailable Joni Cochran Consulting Unavailable Myrtle Sullivan Attending Unavailable Malys, Roma Primary Care Unavailable Huma Khan Admitting Unavailable Joni Cochran Attending Unavailable Malys, Roma Primary Care Unavailable Huma Khan Consulting Unavailable Yohannes Mccrary Consulting Unavailable Joni Torres Admitting Unavailable de Joni An Referring Unavailable de JuveJoni olsen Consulting Unavailable Malys, Roma Primary Care Unavailable Ángel, Wai Attending Unavailable Reinier Rojas Consulting Unavailable Allergies Allergy Classification Reported Allergen(s) Allergy Type Date of Onset Reaction(s) Facility (1 source) Allergic rhinitis due to pollen; Translations: [HAY FEVER] allergy to substance [facility] Work Phone: (3 sources) Dust; Translations: [DUST] allergy to substance 05-04-20 14 sinus pressure [facility] Work Phone: (20 sources) Mold Extract; Translations: [MOLD] Drug Allergy 02-09-20 10 SINUS PRESSURE, Other [facility] Work Phone: Comment on above: SINUS PRESSURE (20 sources) Lactose; Translations: [LACTOSE] Drug Allergy 02-18-20 19 Unknown [facility] (20 sources) Wheat gluten extract; Translations: [GLUTEN] Drug Allergy 02-18-20 19 Other: See Comments [facility] (20 sources) grass pollen-perennial rye, standar; Translations: [grass pollen-perennial rye, standar] Allergy to substance 04-21-20 21 sinus pressure [facility] (20 sources) house dust allergenic extract; Translations: [HOUSE DUST] Drug Allergy 05-30-20 22 Other: See Comments [facility] Comment on above: SINUS PRESSURE (5 sources) Meperidine; Translations: [MEPERIDINE] Drug Allergy 11-22-19 25 Unknown [facility] (5 sources) Nitrofurantoin; Translations: [NITROFURANTOIN] Drug Allergy 07-05-20 24 Unknown [facility] Comment on above: per patient (2 sources) Penicillin G; Translations: [PENICILLIN G] Drug Allergy 11-27-19 25 Mental Status Change [facility] (2 sources) Sulfamethoxazole / Trimethoprim; Translations: [SULFAMETHOXAZOLE-TR IMETHOPRIM] Drug Allergy 11-27-19 25 Mental Status Change [facility] (3 sources) Morphine Drug Allergy 06-11-20 25 NEEDS FOLLOW-UP [facility] (1 source) Sulfamethoxazole Drug Allergy 06-30-20 25 NEEDS FOLLOW-UP [facility] (1 source) Trimethoprim Drug Allergy 06-30-20 25 NEEDS FOLLOW-UP [facility] (1 source) Gluten Drug allergy (disorder) 06-11-20 25 [facility] Rep[facility] (1 source) house dust allergenic extract Drug Allergy 06-11-20 [facility] (1 source) Lactose Drug Allergy 06-11-20 [facility] (1 source) Meperidine Drug Allergy 06-11-20 [facility] (1 source) Morphine Drug Allergy 06-11-20 [facility] (1 source) Nitrofurantoin Drug Allergy 06-11-20 [facility] (1 source) Sulfamethoxazole Drug Allergy 06-30-20 [facility] (1 source) Trimethoprim Drug Allergy 06-30-20 [facility] Medications Current Medications Medication Drug Class(es) Dates Sig (Normalized) Sig (Original) acetaminophen 500 mg oral tablet (20 sources) Start: 06-24-2025 take 2 tablets by mouth every eight hours as needed for pain Start: 11-24-2024 End: 06-24-2025 take 1 tablet [...] LIQD every 8 hrs as needed ACETAMINOPHEN [id number] Roma Grajeda DO [id number] 200 actuat albuterol 0.09 mg/actuat metered dose inhaler (5 sources) beta2-Adrenergic Agonist Start: 11-12-2020 take 1 puff(s) by inhalation every four hours as needed Albuterol Sulfate Active 2 PUFF INHALATION EVERY 4 HOURS NEEDED November 12, 2020 12:00am amitriptyline hydrochloride 25 mg oral tablet (20 sources) Tricyclic Antidepressant Start: 08-16-2020 take 1 tablet by mouth at bedtime Start: 11-12-2017 End: 11-21-2017 take 1 tablet by mouth at bedtime as needed for sleep Amitriptyline 25 MG tablet Discontinued 25 mg PO AT BEDTIME as needed for sleep November 12, 2017 1:00am November 21, 2017 9:52pm Start: 04-24-2016 End: 07-11-2017 AMITRIPTYLINE HCL 10 MG TABS 1-2 tablets by mouth at night AMITRIPTYLINE HCL [id number] Reinier Sanchez DO take 1 tablet by simon th once daily at bedtime amitriptyline (ELAVIL) 50 mg tablet Take 50 mg by mouth daily at bedtime. Active amLODIPine 2.5 mg oral tablet (20 sources) Dihydropyridine Calcium Channel Buck Start: 06-24-2025 take 1 tablet by mouth once daily Start: 07-04-2024 End: 11-22-2024 take 1 tablet [...] YLATE TABS as directed AMLODIPINE BESYLATE TABS [id number] Rupinder Zhu LPN Start: 05-04-2014 End: 10-10-2023 take 1 tablet by mouth once daily Amlodipine 5 MG tablet Discontinued 5 mg PO DAILY August 16, 2020 1:00am October 10, 2023 8:56am BP Start: 05-04-2014 take 0.5 tablet by m outh once daily AMLODIPINE BESYLATE 5 MG TABS 1/2 tablet po daily AMLODIPINE BESYLATE [id number] Roma Grajeda DO ascorbic acid 1000 mg oral tablet (5 sources) Vitamin C Start: 11-09-2020 take 500 mg by mouth once daily Ascorbic Acid (Vitamin C) Active 500 MG PO DAILY November 09, 2020 12:00am azelastine hydrochloride 0.137 mg/actuat metered dose nasal spray (20 sources) Histamine-1 Receptor Antagonist Start: 08-16-2020 Start: 08-16-2020 Azelastine Act tessa 1 SPRAY NASAL TWICE A DAY August 16, 2020 1:00am Start: 05-04-2014 take 2 spray(s) nasa l route twice daily AZELASTINE HCL 0.1 % SOLN 2 sprays each nostril twice daily AZELASTINE HCL [id number] Roma Grajeda DO Start: 05-04-2014 take 1 spray(s) nasa l route once daily AZELASTINE HCL 0.1 % SOLN 1 spray each nostril once daily at night AZELASTINE HCL [id number] Roma Grajeda DO Start: 05-04-2014 AZELASTINE HCL 0.1 % SOLN every night AZELASTINE HCL [id number] Roma Grajeda DO cephalexin 500 mg oral capsule (20 sources) Cephalosporin Antibacterial Start: 11-22-2024 take 1 capsule by mouth once daily Start: 07-04-2024 End: 07-07-2024 take 1 capsule [...] post-operative cetirizine hydrochloride 10 mg oral capsule (5 sources) Histamine-1 Receptor Antagonist Start: 06-24-2025 take 1 capsule by mouth once daily Start: 05-04-2014 take 1 tablet by simon th once daily ZYRTEC ALLERGY 10 MG TABS 1 tab po every night CETIRIZINE HCL [id number] Roma Grajeda DO Cetirizine (ZYRT EC) 10 mg cap Take by mouth. Active cholecalciferol 0.125 mg oral capsule (3 sources) Vitamin D Start: 07-07-2024 take 1 capsule by mouth once daily Cholecalciferol (Vitamin D3) (Vitamin D3) 5,000 UNIT [...] 1:00am cyclobenzaprine hydrochloride 10 mg oral tablet (2 sources) Muscle Relaxant Start: 06-24-2025 take 1 tablet by mouth three times daily as needed for muscle spasms famotidine 20 mg oral tablet (1 source) Histamine-2 Receptor Antagonist take 1 tablet by mouth twice daily famotidine (PEPCID) 20 mg tablet Take 20 mg by mouth twice daily. Active fluticasone propionate 0.05 mg/actuat metered dose nasal spray (20 sources) Corticosteroid Start: 08-16-2020 Start: 08-16-2020 Fluticasone Pr opionate Active 1 SPRAY NASAL TWICE A DAY August 16, 2020 1:00am Start: 05-04-2014 End: 12-20-2015 take 2 spray(s) nasal route once daily FLUTICASONE PROPIONATE 50 MCG/ACT SUSP 2 sprays each nostril once daily FLUTICASONE PROPIONATE [id number] Roma Grajeda DO Start: 02-08-2010 take 1 puff(s) nasal route onc e fluticasone propionate(FLONASE 50 MCG/ACTUATION NASAL SPRAY) One puff per nostril before lying down for bed. 0 02/08/2010 Active gabapentin 300 mg oral capsule (20 sources) Anti-epileptic Agent Start: 07-04-2024 take 1 capsule by mouth three times daily Start: 10-10-2023 take 200 mg by mouth three times daily Gabapentin Active 200 MG PO THREE TIMES A DAY October 10, 2023 1:00am Start: 08-16-2020 End: 10-10-2023 take 1 capsule by mouth three times daily Gabapentin 300 MG capsule Discontinued 300 mg PO THREE TIMES A DAY August 16, 2020 1:00am October 10, 2023 8:57am neuopathy Start: 05-04-2014 take 1 capsule by [facility] once daily GABAPENTIN 300 MG CAPS 1 po every 6 hours daily GABAPENTIN [id number] Roma Grajeda DO Start: 05-04-2014 GABAPENTIN 300 MG CAPS every 8 hrs as needed GABAPENTIN [id number] Roma Grajeda DO hyoscyamine sulfate 0.125 mg oral tablet (6 sources) Start: 06-24-2025 take 1 tablet by simon th three times daily as needed Start: 05-04-2014 End: 06-23-2014 take 1 tablet by mouth once daily HYOSCYAMINE SULFATE 0.125 MG TABS 1 PO daily HYOSCYAMINE SULFATE [id number] Roma Grajeda DO levothyroxine sodium 0.075 m g oral tablet (20 sources) l-Thyroxine Start: 11-25-2020 take 1 tablet by simon th once daily Start: 11-22-2020 End: 11-25-2020 take 1 tablet by mouth once daily Levothyroxine 50 MCG tablet Discontinued 50 ug PO DAILY November 22, 2020 1:00am November 25, 2020 10:09am THYROID Start: 12-07-2014 take 1 tablet by simon th once daily in the morning LEVOTHYROXINE SODIUM 50 MCG TABS 1 po daily in AM on empty stomach LEVOTHYROXINE SODIUM [id number] Roma Grajeda DO Start: 02-08-2010 levothyroxine sodium(SYNTHROID 25 MCG TAB) Take one(1) tablet daily. 0 02/08/2010 Active lisinopril 20 mg oral tablet (20 sources) Angiotensin Converting Enzyme Inhibitor Start: 01-30-2021 take 1 tablet by mouth once daily Start: 08-16-2020 End: 08-18-2020 take 1 tablet by mouth once daily Lisinopril 20 MG tablet Discontinued 20 mg PO DAILY August 16, 2020 1:00am August 18, 2020 11:37am blood pressure Start: 07-11-2017 LISINOPRIL TAB S as directed LISINOPRIL TABS [id number] Rupinder Zhu LPN Start: 05-04-2014 take 1 tablet by simon th once daily LISINOPRIL 20 MG TABS 1 po daily LISINOPRIL [id number] Roma Grajeda DO miconazole nitrate 0.02 mg/mg topical powder (5 sources) Azole Antifungal Start: 08-27-2021 Miconazole Nitrate Active 1 APPLIC TOPICAL TWICE A DAY 85 August 27, 2021 12:00am apply twice daily x 2 weeks pantoprazole 40 mg delayed release oral tablet (20 sources) Proton Pump Inhibitor Start: 06-24-2025 take 1 tablet by mouth every twelve hours Start: 11-24-2024 End: 06-24-2025 take 1 tablet [...] 9:52pm November 05, 2018 3:04pm acid reflux sulfamethoxazole 800 mg / trimethoprim 160 mg oral tablet (20 sources) Dihydrofolate Reductase Inhibitor Antibacterial, Sulfonamide Antimicrobial Start: 06-26-2025 Start: 11-22-2024 End: 11-24-2024 Sulfamethoxazole-Trimethopri m 800-160 mg tablet Discontinued 1 {tbl} PO [...] by mouth twice daily for UTI SULFAMETHOXAZOLE-TRIMETHOPRIM [id number] Reinier Sanchez DO Start: 05-21-2014 End: 06-23-2014 take 1 tablet by mouth twice daily SULFAMETHOXAZOLE-TRIMETHOPRIM 800-160 MG TABS 1 PO Twice daily x 5 days SULFAMETHOXAZOLE-TRIMETHOPRIM [id number] Roma Grajeda DO tiZANidine 2 mg oral capsule (3 sources) Central alpha-2 Adrenergic Agonist Start: 02-07-2022 take 2 mg by mouth every eight hours Tizanidine Active 2 MG PO Q8H February 06, 2022 11:00pm traMADol hydrochloride 50 mg oral tablet (20 sources) Opioid Agonist Start: 11-09-2020 take 1 tablet by mouth every eight hours Start: 08-16-2020 End: 08-18-2020 take 1 tablet [...] tab every 8 hrs TRAMADOL HCL TABS [id number] Roma Grajeda DO Start: 02-08-2010 TRAMADOL 50 [...] take 1 tablet by mouth at bedtime Start: 08-16-2020 End: 10-10-2023 take 1 tablet by mouth at bedtime Trazodone 50 MG tablet Discontinued 50 mg PO AT BEDTIME August 16, 2020 1:00am October 10, 2023 8:57am sleep Start: 05-04-2014 End: 07-11-2017 take 1 tablet by mouth once daily TRAZODONE HCL 50 MG TABS One tablet by mouth daily at night TRAZODONE HCL [id number] Reinier Justin Daniel DO vitamin b12 1 mg oral tablet (3 sources) Vitamin B12 Start: 11-24-2024 take 1 tablet by simon th once daily Completed/Discontinued Medications Medication Drug Class(es) Dates Sig (Normalized) Sig (Original) acetaminophen 300 mg / codeine phosphate 30 mg oral tablet (20 sources) Opioid Agonist Start: 11-12-2018 End: 11-19-2018 [...] NEEDED as needed for Pain 10 7 0 February 24, 2020 March 01, 2020 12:00am March 02, 2020 12:02am 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 Start: 02-24-2020 End: 03-02-2020 take 1 tablet by mouth every four hours as needed Hydrocodone-Acetaminophen Discontinued 1 TABLET PO EVERY 4 HOURS NEEDED 10 7 February 24, 2020 March 02, 2020 12:02am Start: 09-18-2019 End: 10-17-2019 Hydrocodone-Acetaminophen [...] need ed ALUM & MAG HYDROXIDE-SIMETH SUSP [id number] Roma Grajeda DO Start: 05-04-2014 MYLANTA SUSP t wo tsp as needed ALUM & MAG HYDROXIDE-SIMETH SUSP [id number] Roma Grajeda DO amoxicillin 875 mg oral [...] three times daily for bladder infection AMOXICILLIN [id number] Reinier Sanchez DO amoxicillin 875 mg / clavulanate 125 mg oral tablet (17 sources) Penicillin-class Antibacterial Start: 12-10-2022 End: 09-28-2023 take 1 tablet by mouth twice daily Amoxicillin-Pot Clavulanate 875-125 mg tablet Discontinued 1 {tbl} PO TWICE A DAY 13 December 10, 2022 1:00am September 28, 2023 6:00pm First dose night of 12/10/22 Start: 12-10-2022 End: 09-28-2023 take 1 tablet by mouth twice daily Amoxicillin-Pot Clavulanate Discontinued 1 TABLET PO TWICE A DAY 20 03December 10, 2022 1:00am September 28, 2023 6:00pm First dose night of 12/10/22 Start: 12-07-2014 End: 12-21-2014 take 1 tablet by mouth twice daily AMOXICILLIN-POT CLAVULANATE 875-125 MG TABS 1 po Twice daily x 10 days AMOXICILLIN-POT CLAVULANATE [id number] Roma Grajeda DO aspirin 81 mg delayed release oral tablet (20 sources) Platelet Aggregation Inhibitor, Nonsteroidal Anti-inflammatory Drug Start: 10-23-2017 End: 11-08-2017 take 1 tablet by mouth once daily Aspirin 81 MG tablet Discontinued 81 mg PO DAILY@0800 October 23, 2017 1:00am November 08, 2017 12:23pm [facility] benoxinate hydrochloride 4 mg/ml / fluorescein sodium 3 mg/ml ophthalmic solution (1 source) Diagnostic Dye Start: 11-27-2024 End: 11-27-2024 fluorescein-benox inate 0.3-0.4 % 1 Drop (FLURESS) bismuth subsalicylate 262 mg chewable tablet (20 sources) Bismuth Start: 09-18-2019 End: 10-10-2019 take 1 tablet by mouth once daily as needed Bismuth Subsalicylate 262 MG tablet,chewable Discontinued 262 mg PO DAILY NEEDED as needed for Upset stomach September 18, 2019 1:00am October 10, 2019 4:55pm calcium carbonate 1500 mg oral tablet (2 sources) Start: 05-04-2014 End: 12-14-2015 CALCIUM CARBONATE 1500 (600 Ca) MG TABS daily CALCIUM CARBONATE [id number] Roma Grajeda DO calcium carbonate 1250 mg / cholecalciferol 125 unt oral tablet (1 source) Vitamin D Start: 07-11-2017 CALCIUM 500 + D TABS as directed CALCIUM CARBONATE-VITAMIN D TABS [id number] Rupinder Zhu [employer] cefdinir 300 mg oral capsule (20 sources) [...] 2020 1:02am ciprofloxacin 250 mg oral tablet (19 sources) Quinolone Antimicrobial Start: 07-07-2024 End: 11-22-2024 [...] Twice daily x 3 days CIPROFLOXACIN HCL [id number] Roma Grajeda DO Start: 08-25-2014 End: 12-14-2015 take 1 tablet by mouth once daily CIPROFLOXACIN HCL 250 MG TABS 1 PO daily CIPROFLOXACIN HCL [id number] Roma Grajeda DO Start: 08-17-2014 End: 08-19-2014 CIPROFLOXACIN HCL 250 MG TAB S 2 PO Twice daily x 5 days then once daily CIPROFLOXACIN HCL [id number] Roma Grajeda DO dextromethorphan hydrobromide 15 mg oral capsule (20 sources) Uncompetitive C-wvzsml-H-aspartate Receptor Antagonist, Sigma-1 Agonist Start: 03-09-2017 End: 03-14-2017 Dextromethorphan Hbr (Robitussin) 15 MG capsule Discontinued 15 mg PO NEEDED as needed for Congestion March 09, 2017 12:00am March 14, 2017 10:08am DMSO TOPICAL CREAM (2 sources) Start: 12-07-2014 End: 07-11-2017 DMSO TOPICAL CREAM Apply to left leg every 12 hours for pain DMSO TOPICAL CREAM Rupinder Zhu LPN Start: 12-07-2014 DMSO TOPICAL C REAM Apply to left leg every 12 hours for pain DMSO TOPICAL CREAM Roma Grajeda DO docusate sodium 100 mg oral capsule (2 sources) Start: 05-04-2014 End: 12-14-2015 COLACE 100 MG CAPS daily DOCUSATE SODIUM [id number] Roma Grajeda DO docusate sodium 50 mg / sennosides, snf 8.6 mg oral tablet (20 sources) Start: 09-08-2016 End: 03-14-2017 take 1 tablet by mouth twice daily Sennosides-Docusate Sodium (Stool Softener-Stimulant Laxat) 1 TABLET tablet Discontinued 2 {tbl} PO TWICE A DAY 10 0 September 08, 2016 1:00am March 14, 2017 10:08am doxycycline monohydrate 100 mg oral capsule (20 sources) Tetracycline-cla ss Drug Start: 11-08-2017 End: 11-13-2017 take 1 capsule by mouth twice daily Doxycycline Monohydrate 100 MG capsule Discontinued 100 mg PO TWICE A DAY 14 0 November 08, 2017 1:00am November 13, 2017 6:42pm ergocalciferol 36920 unt oral capsule (5 sources) Provitamin D2 Compound Start: 03-02-2015 End: 12-14-2015 take 1 capsule by mouth every week VITAMIN D (ERGOCALCIFEROL) 97223 UNIT CAPS One capsule by mouth once a week. ERGOCALCIFEROL [id number] Roma Grajeda DO Start: 05-04-2014 End: 08-02-2014 take 1 capsule by mouth every week ERGOCALCIFEROL 98145 UNIT CAPS 1 PO weekly ERGOCALCIFEROL [id number] Roma Grajeda DO estradiol 0.1 mg/ml vaginal cream (15 sources) Estrogen Start: 12-08-2022 End: 09-28-2023 Estradiol [...] MG TBEC 1 po BID FERROUS SULFATE [id number] Roma Grajeda DO take 1 tablet by simon th once daily at breakfast ferrous sulfate 325 mg (65 mg iron) tabl et Take 325 mg by mouth daily with breakfast. Active fluconazole 200 mg oral tablet (6 sources) Azole Antifungal Start: 05-06-2015 End: 07-11-2017 take 1 tablet by mouth once daily FLUCONAZOLE 200 MG TABS 1 po daily x 3 days FLUCONAZOLE [id number] Breanne Granados PA-C furosemide 40 mg oral [...] MG tablet Discontinued 40 mg PO DAILY October 10, 2019 4:55pm February 19, 2020 1:15pm Water pill 12 hr guaiFENesin 600 mg extended release oral tablet (20 sources) Start: 10-10-2019 End: 02-19-2020 take 1 tablet by mouth twice daily Guaifenesin 600 MG tablet Discontinued 600 mg PO TWICE A DAY 0 October 10, 2019 1:00am February 19, 2020 1:15pm Start: 05-04-[address] CONGESTION 100 MG/5ML SYRP as needed GUAIFENESIN [id number] Roma Grajeda DO hydroxychloroquine sulfate 200 mg oral tablet (2 sources) Antimalarial, Antirheumatic Agent Start: 10-15-2015 End: 12-14-2015 take 1 tablet by mouth twice daily at mealtime PLAQUENIL 200 MG TABS One tablet by mouth twice daily with food HYDROXYCHLOROQUINE SULFATE [id number] Roma Grajeda DO hyoscyamine sulfate 0.12 mg / methenamine 118 mg / methylene blue 10 mg / phenyl salicylate 36 mg / sodium phosphate, monobasic 40.8 mg oral capsule (20 sources) Oxidation-Reducti on Agent Start: 02-24-2020 End: 03-05-2020 Donavon-Jesus-S.Phos- Phsal-Hyo 1 EACH capsule Discontinued 1 NMA PO EVERY 8 HOURS NEEDED as needed for Bladder Spasm February 24, 2020 11:17am March 04, 2020 12:00am March 05, 2020 12:02am Start: 02-24-2020 End: 03-05-2020 Methen-M.Blue-S.Kura-Semjz-J yo Discontinued 1 EACH PO EVERY 8 HOURS NEEDED 06 08February 24, 2020 11:17am March 05, 2020 12:02am 10 ml iron sucrose 20 mg/ml injection (2 sources) Parenteral Iron Replacement Start: 12-21-2014 End: 04-12-2015 VENOFER 20 MG/ML SOLN 200 mg IV over 30 minutes given once weekly x 3 doses IRON SUCROSE [id number] Roma Grajeda DO L.Acidoph, Paracasei,B. Lactis (17 sources) Start: 08-18-2020 End: 09-17-2020 L.Acidoph, Paracasei,B. Lactis Discontinued 1 EACH PO DAILY 30 August 18, 2020 11:38am September 17, 2020 1:03am Start: 08-18-2020 End: 09-17-2020 L.Acidoph, Paracasei,B. Lact is Discontinued 1 EACH PO DAILY 30 August 18, 2020 12:00am September 17, 2020 12:03am Start: 08-18-2020 End: 09-17-2020 L.Acidoph, Paracasei,B. Lact is Discontinued 1 EACH PO DAILY 30 August 18, 2020 1:00am September 17, 2020 1:03am L.Acidoph,Paracasei,B.Animal is 1 EACH capsule (3 sources) Start: 08-18-2020 End: 09-17-2020 take 1 capsule by mouth once daily L.Acidoph,Paracasei,B.Animalis 1 EACH capsule Discontinued 1 NMA PO DAILY 30 30 August 18, 2020 1:00am September 16, 2020 1:00am September 17, 2020 1:03am lidocaine 0.05 mg/mg medicat ed patch (20 sources) Anti arrh ythm ic, Amid e Loca l Anes thet ic Start: 10-10-2019 End: 02-19-2020 Lidocaine 1 PATCH patch Discontinued 1 NMA TOPICAL DAILY@0800 30 October 10, 2019 1:00am [...] CAPS One tablet by mouth daily LINACLOTIDE [id number] Rupinder Zhu LPN methenamine mandelate 1000 mg oral tablet (1 source) Start: 12-14-2015 take 0.5 tablet by mouth once daily METHENAMINE MANDELATE 1 GM TABS 1/2 tablet po daily METHENAMINE MANDELATE [id number] Roma Grajeda DO methylPREDNISolone 4 mg oral tablet (18 sources) Corticosteroid Start: 02-07-2022 End: 02-12-2022 take [...] by mouth once daily MYRBETRIQ 25 MG [id number] One tablet by mouth daily MIRABEGRON [id number] Reinier Sanchez DO MULTIPLE VITAMINS-CALCIUM (2 sources) Start: 12-14-2015 End: 07-11-2017 VIACTIV MULTI-VITAMIN CHEW 2 chews po daily MULTIPLE VITAMINS-CALCIUM [id number] Rupinder Zhu LPN Start: 12-14-2015 VIACTIV MULTI- VITAMIN CHEW 2 chews po daily MULTIPLE VITAMINS-CALCIUM [id number] Roma Grajeda DO MULTIPLE VITAMINS-IRON (3 sources) Start: 08-17-2014 End: 12-14-2015 take 1 tablet by mouth once daily QC DAILY MULTIVITAMINS/IRON TABS One tablet by mouth daily MULTIPLE VITAMINS-IRON [id number] Roma Grajeda DO Start: 08-17-2014 take 1 tablet by simon th once daily QC DAILY MULTIVITAMINS/IRON TABS One tablet by mouth daily MULTIPLE VITAMINS-IRON [id number] Roma Grajeda DO nitrofurantoin, macrocrystals 25 mg / nitrofurantoin, monohydrate 75 mg oral capsule (20 sources) Nitrofuran Antibacterial Start: 05-28-2024 End: 07-04-2024 take 1 capsule by mouth every twelve hours Nitrofurantoin Monohyd/M-Cryst 100 mg capsule Discontinued 100 mg PO EVERY 12 HOURS 10 0 May 28, 2024 12:00am July 04, 2024 [...] Pump Inhibitor Start: 07-11-2017 [facility]BE as directed OMEPRAZOLE [facility] [id number] Rupinder Zhu LPN Start: 05-04-2014 End: 12-14-2015 OMEPRAZOLE 40 MG CPDR daily OMEPRAZOLE [id number] Roma Grajeda DO Omeprazole 40 mg capsule Take 20 mg by mouth once daily. Active 24 hr oxybutynin chloride 5 mg extended release oral tablet (4 sources) Cholinergic Muscarinic Antagonist Start: 09-09-2015 End: 03-30-2016 take 1 tablet by mouth once daily OXYBUTYNIN CHLORIDE ER 5 MG [id number] 1 po daily OXYBUTYNIN CHLORIDE [id number] Reinier Sanchez DO Start: 05-04-2014 End: 06-03-2014 take 1 tablet by mouth once daily OXYBUTYNIN CHLORIDE ER 5 MG [id number] One tablet by mouth daily OXYBUTYNIN CHLORIDE [id number] Roma Grajeda DO oxyCODONE hydrochloride 5 mg [...] dilation PROTECT FROM LIGHT polyethylene glycol 3350 86300 mg powder for oral solution (20 sources) Osmotic Laxative Start: 08-25-2016 End: 10-10-2019 take 17 g by mouth once daily Polyethylene Glycol 3350 17 GM packet Discontinued 17 g PO DAILY August 25, 2016 1:00am October 10, 2019 4:55pm [facility] Start: 12-14-2015 MIRALAX POWD 1 tsp daily POLYETHYLENE GLYCOL 3350 [id number] Roma Grajeda DO Start: 12-14-2015 End: 07-11-2017 MIRALAX POWD 1 tsp daily 201 03/10/08 POLYETHYLENE GLYCOL 3350 [id number] Rupinder Zhu LPN proparacaine hydrochloride 5 mg/ml ophthalmic solution (1 source) Local Anesthetic Start: 11-27-2024 End: 11-27-2024 proparacaine 0.5 % 1 Drop (ALCAINE) propranolol hydrochloride 10 mg oral tablet (5 sources) beta-Adrenergic Buck Start: 06-23-2014 take 0.5 tablet by mouth twice daily PROPRANOLOL HCL 10 MG TABS 1/2 tablet po BID PROPRANOLOL HCL [id number] Roma A Gerardoys, DO Start: 06-23-2014 End: 07-11-2017 take 1 tablet by mouth twice daily PROPRANOLOL HCL 10 MG TABS One tablet by mouth twice daily PROPRANOLOL HCL [id number] Roma A Gerardoys, DO PSYLLIUM POWD (2 sources) Start: 05-04-2014 End: 12-14-2015 METAMUCIL POWD 1 tbsp with f ull glass of water daily PSYLLIUM POWD [id number] Roma A Malys, DO Start: 05-04-2014 METAMUCIL POWD 1 tbsp with full glass of water daily PSYLLIUM POWD [id number] Roma A Nicci, DO sucralfate 100 mg/ml oral suspension (3 sources) Aluminum Complex Start: 05-28-2014 End: 12-14-2015 CARAFATE 1 GM/10ML SUSP 10 ml Four times daily - 1 hour before meals and at bedtime SUCRALFATE [id number] Roma A Nicci, DO tetracycline 500 mg oral capsule (2 sources) Tetracycline-class Antimicrobial Start: 03-16-2015 End: 04-12-2015 take 1 capsule by mouth twice daily TETRACYCLINE HCL 500 MG CAPS 1 po Twice daily x 5 days TETRACYCLINE HCL [id number] Roma A Nicci, DO tropicamide 10 mg/ml ophthalmic solution (2 sources) Anticholinergic Start: 11-27-2024 End: 11-27-2024 tropicamide 1 % 1 Drop (MYDRIACYL) Start: 11-27-2024 End: 11-27-2024 1 Drop, BOTH EYES, DIRECT ED, Starting on Bette 11/27/24 at 0930, Until Bette 11/27/24 at 2129, Administer for dilation CHOLECALCIFEROL TABS (1 source) Start: 05-04-2014 VITAMIN D TABS 30,000 iu every week CHOLECALCIFEROL TABS [id number] Roma Grajeda DO Problems Active Problems Problem Classification Problem Date Documented Da te Episodic/Chronic Asthma (20 sources) Asthma; Translations: [Unspecified asthma, uncomplicated] 09-18-2019 Chronic Blindness and vision defects (13 sources) Blurring of visual image; Translations: [Other visual disturbances] 01-18-2023 Episodic Chronic kidney disease (3 sources) Chronic kidney disease stage 3A ; Translations: [Stage 3a chronic kidney disease] 11-23-2024 Chronic Chronic kidney disease (1 source) Chronic kidney disease; Translations: [Chronic kidney disease, stage 3a] Onset: Chronic ulcer of skin (20 sources) Pressure ulcer; Translations: [Pressure ulcer of unspecified site, unspecified stage] 08-27-2021 Chronic Esophageal disorders (1 source) Gastroesophageal reflux disease; Translations: [Gastro-esophageal reflux disease without esophagitis] Onset: 4 11-08-2015 Chronic Essential hypertension (20 sources) Hypertensive disorder; Translations: [Essential (primary) hypertension] Onset: 5 10-27-2014 Chronic Fracture of lower limb (20 sources) Closed fracture of ankle; Translations: [Other fracture of left lower leg, initial encounter for closed fracture] 11-22-2020 Episodic Gastroduodenal ulcer (except hemorrhage) (20 sources) Peptic ulcer; Translations: [Peptic ulcer, site unspecified, unspecified as acute or chronic, without hemorrhage or perforation] 02-17-2019 Chronic Gastroduodenal ulcer (except hemorrhage) (20 sources) H/O: peptic ulcer; Translations: [Personal history of peptic ulcer disease] 02-17-2019 Episodic Genitourinary symptoms and ill-defined conditions (1 source) Mixed urinary incontinence; Translations: [Mixed incontinence] Onset: 4 05-05-2014 Chronic Genitourinary symptoms and ill-defined conditions (20 sources) Dysuria; Translations: [Increased frequency of urination] Onset: 4 05-21-2014 Episodic Intracranial injury (11 sources) Concussion injury of body structure; Translations: [...] Neoplasms of unspecified nature or uncertain behavior (20 sources) Neoplasm of uncertain behavior of bladder; Translations: [Neoplasm of uncertain behavior of bladder] 08-16-2020 Episodic Osteoarthritis (20 sources) Degenerative joint disease of shoulder region; 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 Elkin acevedo Other connective tissue disease (3 sources) History of repair of hip joint; Translations: [Presence of unspecified artificial hip joint] 07-09-2024 Chronic Other connective tissue disease (3 sources) Recurrent falls ; Translations: [Repeated falls] 11-22-2024 Episodic Other diseases of bladder and urethra (20 sources) Overactive bladder; Translations: [Overactive bladder] 02-17-2019 Chronic Other diseases of kidney and ureters (3 sources) Renal impairment; Translations: [Disorder of kidney and ureter, unspecified] 06-05-2024 Episodic Other eye disorders (13 sources) Dry eyes; Translations: [Dry eye syndrome of right lacrimal gland] 01-18-2023 Episodic Other fractures (3 sources) Unspecified fracture of right acetabulum, initial encounter for closed fracture; Translations: [Fracture of right acetabulum] 07-04-2024 Episodic Other gastrointestinal disorders (1 source) Celiac disease; Translations: [Celiac disease] Onset: 4 08-17-2014 Chronic Other gastrointestinal disorders (20 sources) Constipation; Translations: [Constipation, unspecified] 02-17-2019 Episodic Other hereditary and degenerative nervous system conditions (1 source) Essential tremor; Translations: [Essential tremor] Onset: 4 06-23-2014 Chronic Other injuries and conditions due to external causes (7 sources) History of fall; Translations: [History of falling] 09-29-2023 Episodic Other injuries and conditions due to external causes (1 source) History of falling; Translations: [History of fall] 10-04-2023 Episodic Other injuries and conditions due to external causes (3 sources) Other specified injuries of thorax, initial encounter; Translations: [Contusion of rib on right side] 09-02-2018 Episodic Other nervous system disorders (3 sources) Walking disability; Translations: [Difficulty in walking, not elsewhere classified] 07-04-2024 Chronic Other nervous system disorders (1 source) Difficulty in walking, not elsewhere classified; Translations: [Difficulty in walking, not elsewhere classified] Onset: Chronic Other nervous system disorders (3 sources) Acute pain due to injury; Translations: [Acute pain due to trauma] 07-04-2024 Episodic Other non-traumatic joint disorders (3 sources) Hip pain; Translations: [Pain in right hip] 06-11-2025 Episodic Other non-traumatic joint disorders (1 source) Pain in right hip; Translations: [Pain in right hip] Onset: Episodic Other nutritional; endocrine; and metabolic disorders (1 source) Obesity; Translations: [Obesity, unspecified] Onset: 5 12-07-2014 Chronic Other upper respiratory disease (20 sources) Allergic rhinitis; Translations: [Allergic rhinitis, unspecified] 09-18-2019 Chronic Otitis media and related conditions (20 sources) Perforation of tympanic membrane; Translations: [Unspecified perforation of tympanic membrane, unspecified ear] 09-29-2023 Episodic Residual codes; unclassified (20 sources) Insomnia; Translations: [Insomnia, unspecified] 09-18-2019 Episodic Residual codes; unclassified (15 sources) Disturbance of consciousness; Translations: [Transient alteration [...] Onset: 0 05-05-2014 Episodic Sprains and strains (18 sources) Low back strain; Translations: [Strain of muscle, fascia and tendon of lower back, initial encounter] 02-07-2022 Episodic Superficial injury; contusion (20 sources) Contusion of rib; Translations: [Contusion of right front wall of thorax, initial encounter] 09-02-2018 Episodic Syncope (17 sources) Syncope; Translations: [Syncope and collapse] Onset: 5 12-08-2022 Episodic Thyroid disorders (20 sources) Hypothyroidism; Translations: [Hypothyroidism, unspecified] Onset: 5 04-12-2015 Chronic Urinary tract infections (20 sources) Acute cystitis; Translations: [Recurrent urinary tract infection] Onset: 4 Resolved: 4 07-28-2014 Episodic Past or Other Problems Problem Classification Problem Date Documented Da te Episodic/Chronic Abdominal pain (1 source) Epigastric pain; Translations: [Epigastric pain] Onset: 4 05-28-2014 Episodic Acute and unspecified renal failure (5 sources) Acute renal failure syndrome; Translations: [Acute kidney failure, unspecified] Onset: 5 12-02-2024 Episodic Deficiency and other anemia (1 source) Iron deficiency anemia; Translations: [Iron deficiency anemia, unspecified] Onset: 5 12-21-2014 Episodic Diseases of mouth; excluding dental (1 source) Xerostomia; Translations: [Dry mouth, unspecified] Onset: 6 Resolved: 6 03-28-2016 Episodic Disorders of teeth and jaw (1 source) Toothache; Translations: [Other specified disorders of teeth and supporting structures] Onset: 5 2014 Episodic E Codes: Adverse effects of medical drugs (4 sources) Adverse reaction to drug; Translations: [Adverse effect of unspecified drugs, medicaments and biological substances, initial encounter] Onset: 5 11-22-2024 Episodic E Codes: Fall (7 sources) Fall; Translations: [Unspecified fall, initial encounter] Onset: 5 11-22-2024 Episodic Fluid and electrolyte disorders (20 sources) Hyponatremia; Translations: [Hypo-osmolality and hyponatremia] Onset: 5 11-22-2020 Episodic Gastrointestinal hemorrhage (1 source) Hematochezia; Translations: [Melena] Onset: 5 12-21-2014 Episodic Nausea and vomiting (1 source) Nausea; Translations: [Nausea] Onset: 4 05-28-2014 Episodic Nutritional deficiencies (4 sources) Folic acid deficiency; Translations: [Deficiency of other specified B group vitamins] Onset: 5 11-23-2024 Episodic Open wounds of extremities (1 source) [...] [Arthrodesis status] Onset: 0 02-08-2010 Episodic Other gastrointestinal disorders (1 source) Chronic [...] Test Name Value Interpretation Reference Range Facility Urine Cultureon 06-29-2025 [facility] Urine Culture Urine Culture Escherichia coli [place] Count 80,000-100,000 Enterococcus faecalis Enterococcus faecalis [place] Count 11,000-25,000 Escherichia coli: REACTION Amikacin Islt SUZANNE 2 Ampicillin Islt SUZANNE >=32 R Ampicillin+Sulbac Islt SUZANNE >=32 Cefepime Islt SUZANNE 8 I Eravacycline Islt SUZANNE <=0.12 S cefTRIAXone Islt SUZANNE 0.5 S Ciprofloxacin Islt SUZANNE 0.5 I B-Lactamase Extended Susc Islt NEG Gentamicin Islt SUZANNE <=1 S Imipenem Islt SUZANNE <=0.25 S levoFLOXacin Islt SUZANNE 0.5 S Meropenem Islt SUZANNE <=0.25 S Nitrofurantoin Islt SUZANNE 32 S Pip+Tazo Islt SUZANNE >=128 R Tobramycin Islt SUZANNE <=1 S TMP SMX Islt SUZANNE 40 S Enterococcus faecalis: REACTION Ampicillin Islt SUZANNE <=2 S Ciprofloxacin Islt SUZANNE >=8 R Gentamicin Synergy Susc Islt SYN-R levoFLOXacin Islt SUZANNE >=8 R Linezolid Islt SUZANNE 2 S Nitrofurantoin Islt SUZANNE <=16 S Streptomycin High Pot Susc Islt SYN-S S Tetracycline Islt SUZANNE >=16 R Vancomycin Islt SUZANNE 1 S Normal [facility] Comment on above: Performed By: #### L [id number] #### [facility] [address] [place], [address] Basic Metabolic Profile (BMP )on 06-28-2025 BUN Normal 4-19 [facility] Comment on above: Result Comment: Canc elled via OM: Order cancelled - Patient discharged Performed By: #### L 500.2500, L100.0100 #### [facility] [address] [place], [address] BUN/CRE Normal 10-20 [facility] Comment on above: Result Comment: Canc elled via OM: Order cancelled - Patient discharged Performed By: #### L 500.2500, L100.0100 #### [facility] [address] [place], [address] Calcium Normal 7.6-11.0 [facility] Comment on above: Result Comment: Canc elled via OM: Order cancelled - Patient discharged Performed By: #### L 500.2500, L100.0100 #### [facility] [address] [place], [address] CL Normal 98-108 [facility] Comment on above: Result Comment: Canc elled via OM: Order cancelled - Patient discharged Performed By: #### L 500.2500, L100.0100 #### [facility] [address] [place], [address] CO2 Normal 21.0-32.0 [facility] Comment on above: Result Comment: Canc elled via OM: Order cancelled - Patient discharged Performed By: #### L 500.2500, L100.0100 #### [facility] [address] [place], [address] CREAT,SERUM Normal 0.70-1.20 [facility] Comment on above: Result Comment: Canc elled via OM: Order cancelled - Patient discharged Performed By: #### L 500.2500, L100.0100 #### [facility] [address] [place], [address] eGFR Normal >60 [facility] Comment on above: Result Comment: Canc elled via OM: Order cancelled - Patient discharged Performed By: #### L 500.2500, L100.0100 #### [facility] [address] [place], [address] GAP Normal 5-15 [facility] Comment on above: Result Comment: Canc elled via OM: Order cancelled - Patient discharged Performed By: #### L 500.2500, L100.0100 #### [facility] [address] [place], [address] GLU Normal 70-99 [facility] Comment on above: Result Comment: Canc elled via OM: Order cancelled - Patient discharged Performed By: #### L 500.2500, L100.0100 #### [facility] [address] [place], [address] Potassium Normal 3.3-5.1 [facility] Comment on above: Result Comment: Canc elled via OM: Order cancelled - Patient discharged Performed By: #### L 500.2500, L100.0100 #### [facility] [address] [place], [address] Basic Metabolic Profile (BMP) Normal 133-145 [facility] Comment on above: Result Comment: Canc elled via OM: Order cancelled - Patient discharged Performed By: #### L 500.2500, L100.0100 #### [facility] [address] [place], [address] CBC W/Diff, Automatedon 09-2 Absolute Neut Normal 2.0-7.7 [facility] Comment on above: Result Comment: Canc elled via OM: Order cancelled - Patient discharged Performed By: #### L 500.2500, L100.0100 #### [facility] [address] [place], [address] HCT Normal 37-47 [facility] Comment on above: Result Comment: Canc elled via OM: Order cancelled - Patient discharged Performed By: #### L 500.2500, L100.0100 #### [facility] [address] [place], [address] HGB Normal 12.0-15.0 [facility] Comment on above: Result Comment: Canc elled via OM: Order cancelled - Patient discharged Performed By: #### L 500.2500, L100.0100 #### [facility] [address] [place], [address] MCH Normal 27.0-32.0 [facility] Comment on above: Result Comment: Canc elled via OM: Order cancelled - Patient discharged Performed By: #### L 500.2500, L100.0100 #### [facility] [address] [place], [address] MCHC Normal 32-36 [facility] Comment on above: Result Comment: Canc elled via OM: Order cancelled - Patient discharged Performed By: #### L 500.2500, L100.0100 #### [facility] [address] [place], [address] MCV Normal 81-99 [facility] Comment on above: Result Comment: Canc elled via OM: Order cancelled - Patient discharged Performed By: #### L 500.2500, L100.0100 #### [facility] [address] [place], [address] NEUT% Normal 47-70 [facility] Comment on above: Result Comment: Canc elled via OM: Order cancelled - Patient discharged Performed By: #### L 500.2500, L100.0100 #### [facility] [address] [place], [address] PLT Normal 150-450 [facility] Comment on above: Result Comment: Canc elled via OM: Order cancelled - Patient discharged Performed By: #### L 500.2500, L100.0100 #### [facility] [address] [place], [address] RBC Normal 4.2-5.4 [facility] Comment on above: Result Comment: Canc elled via OM: Order cancelled - Patient discharged Performed By: #### L 500.2500, L100.0100 #### [facility] [address] [place], [address] RDW CV Normal 11.6-14.6 [facility] Comment on above: Result Comment: Canc elled via OM: Order cancelled - Patient discharged Performed By: #### L 500.2500, L100.0100 #### [facility] [address] [place], [address] RDW SD Normal 35.1-43.9 [facility] Comment on above: Result Comment: Canc elled via OM: Order cancelled - Patient discharged Performed By: #### L 500.2500, L100.0100 #### [facility] [address] [place], [address] WBC Normal 4.4-11.0 [facility] Comment on above: Result Comment: Canc elled via OM: Order cancelled - Patient discharged Performed By: #### L 500.2500, L100.0100 #### [facility] [address] [place], [address] Basic Metabolic Profile (BMP )on 06-27-2025 BUN Normal 4-19 [facility] Comment on above: Result Comment: Canc elled via OM: Order cancelled - Patient discharged Performed By: #### L 500.2500, L100.0100 #### [facility] [address] [place], [address] BUN/CRE Normal 10-20 [facility] Comment on above: Result Comment: Canc elled via OM: Order cancelled - Patient discharged Performed By: #### L 500.2500, L100.0100 #### [facility] [address] [place], [address] Calcium Normal 7.6-11.0 [facility] Comment on above: Result Comment: Canc elled via OM: Order cancelled - Patient discharged Performed By: #### L 500.2500, L100.0100 #### [facility] [address] [place], [address] CL Normal 98-108 [facility] Comment on above: Result Comment: Canc elled via OM: Order cancelled - Patient discharged Performed By: #### L 500.2500, L100.0100 #### [facility] [address] [place], [address] CO2 Normal 21.0-32.0 [facility] Comment on above: Result Comment: Canc elled via OM: Order cancelled - Patient discharged Performed By: #### L 500.2500, L100.0100 #### [facility] [address] [place], [address] CREAT,SERUM Normal 0.70-1.20 [facility] Comment on above: Result Comment: Canc elled via OM: Order cancelled - Patient discharged Performed By: #### L 500.2500, L100.0100 #### [facility] [address] [place], [address] eGFR Normal >60 [facility] Comment on above: Result Comment: Canc elled via OM: Order cancelled - Patient discharged Performed By: #### L 500.2500, L100.0100 #### [facility] [address] [place], [address] GAP Normal 5-15 [facility] Comment on above: Result Comment: Canc elled via OM: Order cancelled - Patient discharged Performed By: #### L 500.2500, L100.0100 #### [facility] [address] [place], [address] GLU Normal 70-99 [facility] Comment on above: Result Comment: Canc elled via OM: Order cancelled - Patient discharged Performed By: #### L 500.2500, L100.0100 #### [facility] [address] [place], [address] Potassium Normal 3.3-5.1 [facility] Comment on above: Result Comment: Canc elled via OM: Order cancelled - Patient discharged Performed By: #### L 500.2500, L100.0100 #### [facility] [address] [place], [address] Basic Metabolic Profile (BMP) Normal 133-145 [facility] Comment on above: Result Comment: Canc elled via OM: Order cancelled - Patient discharged Performed By: #### L 500.2500, L100.0100 #### [facility] [address] [place], [address] CBC W/Diff, Automatedon 09-2 0-2024 Absolute Neut Normal 2.0-7.7 [facility] Comment on above: Result Comment: Canc elled via OM: Order cancelled - Patient discharged Performed By: #### L 500.2500, L100.0100 #### [facility] [address] [place], [address] HCT Normal 37-47 [facility] Comment on above: Result Comment: Canc elled via OM: Order cancelled - Patient discharged Performed By: #### L 500.2500, L100.0100 #### [facility] [address] [place], [address] HGB Normal 12.0-15.0 [facility] Comment on above: Result Comment: Canc elled via OM: Order cancelled - Patient discharged Performed By: #### L 500.2500, L100.0100 #### [facility] [address] [place], [address] MCH Normal 27.0-32.0 [facility] Comment on above: Result Comment: Canc elled via OM: Order cancelled - Patient discharged Performed By: #### L 500.2500, L100.0100 #### [facility] [address] [place], [address] MCHC Normal 32-36 [facility] Comment on above: Result Comment: Canc elled via OM: Order cancelled - Patient discharged Performed By: #### L 500.2500, L100.0100 #### [facility] [address] [place], [address] MCV Normal 81-99 [facility] Comment on above: Result Comment: Canc elled via OM: Order cancelled - Patient discharged Performed By: #### L 500.2500, L100.0100 #### [facility] [address] [place], [address] NEUT% Normal 47-70 [facility] Comment on above: Result Comment: Canc elled via OM: Order cancelled - Patient discharged Performed By: #### L 500.2500, L100.0100 #### [facility] [address] [place], [address] PLT Normal 150-450 [facility] Comment on above: Result Comment: Canc elled via OM: Order cancelled - Patient discharged Performed By: #### L 500.2500, L100.0100 #### [facility] [address] [place], [address] RBC Normal 4.2-5.4 [facility] Comment on above: Result Comment: Canc elled via OM: Order cancelled - Patient discharged Performed By: #### L 500.2500, L100.0100 #### [facility] [address] [place], [address] RDW CV Normal 11.6-14.6 [facility] Comment on above: Result Comment: Canc elled via OM: Order cancelled - Patient discharged Performed By: #### L 500.2500, L100.0100 #### [facility] [address] [place], [address] RDW SD Normal 35.1-43.9 [facility] Comment on above: Result Comment: Canc elled via OM: Order cancelled - Patient discharged Performed By: #### L 500.2500, L100.0100 #### [facility] [address] [place], [address] WBC Normal 4.4-11.0 [facility] Comment on above: Result Comment: Canc elled via OM: Order cancelled - Patient discharged Performed By: #### L 500.2500, L100.0100 #### [facility] [address] [place], [address] Absolute lymphocyte countOrd ered By: Joni Cochran on 06-26-2025 Lymphocytes Auto (Unsp spec) [#/Vol] 1.41 10*3/uL 0.83-4.51 [facility] Absolute neutrophil countOrd ered By: Joni Cochran on 06-26-2025 Neutrophils (Bld) [#/Vol] 3.0 10*3/uL 2.0-7.7 [facility] Anion gap in Serum or Plasma Ordered By: Joni Cochran on 06-26-2025 Anion gap [Moles/Vol] 12 mmol/L - [facility] Automated lymphocyte count a s percentage of total leukocytesOrdered By: Joni Cochran on 06-26-2025 Lymphocytes/100 WBC Auto (Unsp spec) 27.0 % [facility] BUN/creatinine ratioOrdered By: Joni Cochran on 06-26-2025 Urea nitrogen/Creatinine [Mass ratio] 29.5 mg/mg High 07-27 [facility] Basic Metabolic Profile (BMP )on 06-26-2025 BUN/CRE 29.5 RATIO High 07-27 [facility] Comment on above: Performed By: #### L 500.2500, L100.0100 #### [facility] [address] [place], [address] Calcium [Mass/Vol] 9.2 mg/dL Normal 7.6-11.0 [facility] Comment on above: Performed By: #### L 500.2500, L100.0100 #### [facility] [address] [place], [address] Chloride [Moles/Vol] 102 mmol/L Normal 98-108 [facility] Comment on above: Performed By: #### L 500.2500, L100.0100 #### [facility] [address] [place], [address] CO2 [Moles/Vol] 21.6 mmol/L Normal 21.0-32.0 [facility] Comment on above: Performed By: #### L 500.2500, L100.0100 #### [facility] [address] [place], [address] Creatinine [Mass/Vol] 0.71 mg/dL Normal 0.70-1.20 [facility] Comment on above: Performed By: #### L 500.2500, L100.0100 #### [facility] [address] [place], [address] ECRCL 42.40 ml/min Low 50-250 [facility] Comment on above: Performed By: #### L 500.2500, L100.0100 #### [facility] [address] [place], [address] GAP 12 Normal 5-15 [facility] Comment on above: Performed By: #### L 500.2500, L100.0100 #### [facility] [address] [place], [address] GFR/1.73 sq M.predicted among non-blacks MDRD (S/P/Bld) [Vol rate/Area] 82 mL/min/{1.73_m2} Normal >60 [facility] Comment on above: Result Comment: mL/m in/1.73m2 CKD-EPI Creatinine Equation (2020) Performed By: #### L 500.2500, L100.0100 #### [facility] [address] [place], [address] Glucose [Mass/Vol] 87 mg/dL Normal 70-99 [facility] Comment on above: Performed By: #### L 500.2500, L100.0100 #### [facility] [address] [place], [address] Potassium [Moles/Vol] 4.2 mmol/L Normal 3.3-5.1 [facility] Comment on above: Performed By: #### L 500.2500, L100.0100 #### [facility] [address] [place], [address] Sodium [Moles/Vol] 136 mmol/L Normal 133-145 [facility] Comment on above: Performed By: #### L 500.2500, L100.0100 #### [facility] [address] [place], [address] Urea nitrogen [Mass/Vol] 21 mg/dL High - [facility] Comment on above: Performed By: #### L 500.2500, L100.0100 #### [facility] [address] [place], [address] Basophil percentageOrdered B y: Joni Cochran on 06-26-2025 Basophils/100 WBC (Bld) 1.0 % 0-1 [facility] CBC W/Diff, Automatedon 06-08 Absolute Lymph 1.41 X10 3/uL Normal 0.83-4.51 [facility] Comment on above: Performed By: #### L 501.7400 #### [facility] [address] [place], [address] Absolute Neut 3.0 X10 3/uL Normal 2.0-7.7 [facility] Comment on above: Performed By: #### L 501.7400 #### [facility] [address] [place], [address] Basophils/100 WBC (Bld) 1.0 % Normal 0-1 [facility] Comment on above: Performed By: #### L 501.7400 #### [facility] [address] [place], [address] Eosinophils/100 WBC (Bld) 4.2 % Normal 0-5 [facility] Comment on above: Performed By: #### L 501.7400 #### [facility] [address] [place], [address] Erythrocyte distribution width (RBC) [Ratio] 14.1 % Normal 11.6-14.6 [facility] Comment on above: Performed By: #### L 501.7400 #### [facility] [address] [place], [address] Hematocrit (Bld) [Volume fraction] 30.4 % Low 37-47 [facility] Comment on above: Performed By: #### L 501.7400 #### [facility] [address] [place], [address] Hemoglobin (Bld) [Mass/Vol] 10.0 g/dL Low 12.0-15.0 [facility] Comment on above: Performed By: #### L 501.7400 #### [facility] [address] [place], [address] IG% 0.200 Normal 0.0-0.9 [facility] Comment on above: Result Comment: IG% - Immature Granulocytes (promyelocytes, myelocytes and metamyelocytes) > 1% indicates that a LEFT SHIFT is Present. Performed By: #### L 501.7400 #### [facility] [address] [place], [address] Lymphocytes/100 WBC (Bld) 27.0 % Normal 19-41 [facility] Comment on above: Performed By: #### L 501.7400 #### [facility] [address] [place], [address] MCH (RBC) [Entitic mass] 30.8 pg Normal 27.0-32.0 [facility] Comment on above: Performed By: #### L 501.7400 #### [facility] [address] [place], [address] MCHC (RBC) [Mass/Vol] 32.9 g/dL Normal 32-36 [facility] Comment on above: Performed By: #### L 501.7400 #### [facility] [address] [place], [address] MCV (RBC) [Entitic vol] 93.5 fL Normal 81-99 [facility] Comment on above: Performed By: #### L 501.7400 #### [facility] [address] [place], [address] Monocytes/100 WBC (Bld) 10.0 % Normal 0-10 [facility] Comment on above: Performed By: #### L 501.7400 #### [facility] [address] [place], [address] Neutrophils/100 WBC (Bld) 57.6 % Normal 47-70 [facility] Comment on above: Performed By: #### L 501.7400 #### [facility] [address] [place], [address] Nucleated RBC (Bld) [#/Vol] 0 10*3/uL Normal 0-5 [facility] Comment on above: Performed By: #### L 501.7400 #### [facility] [address] [place], [address] Platelet mean volume (Bld) [Entitic vol] 9.2 fL Normal 6.2-12.0 [facility] Comment on above: Performed By: #### L 501.7400 #### [facility] [address] [place], [address] Platelets (Bld) [#/Vol] 275 10*3/uL Normal 150-450 [facility] Comment on above: Performed By: #### L 501.7400 #### [facility] [address] [place], [address] RBC (Bld) [#/Vol] 3.25 10*6/uL Low 4.2-5.4 [facility] Comment on above: Performed By: #### L 501.7400 #### [facility] [address] [place], [address] RDW SD 48.1 fl High 35.1-43.9 [facility] Comment on above: Performed By: #### L 501.7400 #### [facility] [address] [place], [address] WBC (Bld) [#/Vol] 5.2 10*3/uL Normal 4.4-11.0 [facility] Comment on above: Performed By: #### L 501.7400 #### [facility] [address] [place], [address] Carbon dioxide, total [Moles /volume] in Central venous bloodOrdered By: Joni Cochran on 06-26-2025 CO2 [Moles/Vol] 21.6 mmol/L 21.0-32.0 [facility] Chloride assayOrdered By: Juan M Cochran on 06-26-2025 Chloride [Moles/Vol] 102 mmol/L 98-108 [facility] Consultation - Infectious Dx on 06-26-2025 Consultation - Infectious Dx [facility] Medical Records Department [address] [place] [address] Consultation - Infectious Dx 06/26/25 1028 MR#: [id number] Acct: [id number] Name: MARLI ROSALES Rep #: [id number] : 1935 89 From: Yohannes Mccrary MD PCP: Dr. Roma Grajeda, DO Status:ADM HAIM Location: [place] [address] Assessment Plan Assessment/Plan (1) Acute UTI: PLAN: Ucx with esbl ecoli, small amount enterococcus-like. Feeling better, on ertapenem now. Has nitrofurantoin allergy. Plan for discharge with 3 days po bactrim DS bid. Will follow, thank you HPI Consult Data Date of Consult: 06/26/25 HPI Narrative Reason for Consultation: uti HPI Narrative: MARLI ROSALES, is a 89 F who presented 06/24 after syncopal episode. Had some weakness and increased urine frequency but no dysuria recently. No fever, no abd pain, no cough or dyspnea. Came to ED, admitted on ceftriaxone then changed to ertapenem. Feeling better this AM. Full ROS performed and neg except as noted above. [facility] Medical History Irritable bowel syndrome Spinal stenosis [...] mg PO DAILY UTI prevention Unknown History cyanocobalamin (vitamin B-12) 1,000 mcg PO DAILY #30 tabs Unknown Rx 1,000 mcg tablet acetaminophen 500 mg tablet 1,000 mg PO Q8H PRN PRN arthritis 06/24/25 Unknown History pain amlodipine 2.5 mg tablet 2.5 mg PO DAILY 06/24/25 Unknown H istory cetirizine 10 mg capsule (Allergy 10 mg PO DAILY allergies 06/24/25 Unknown History Relief (cetirizine)) cyclobenzaprine 10 mg tablet 10 mg PO TID PRN muscle spasms Unknown History hyoscyamine sulfate 0.125 mg tablet 0.125 mg PO TID PRN abd crampin g 06/24/25 Unknown History pantoprazole 40 mg tablet,delayed 40 mg PO Q12H GERD 06/24/25 Unkno wn History release Allergy/AdvReac Type Severity Reaction Status [...] Smoking Status: Never smoker alcohol intake: never Physical Exam Const alert and no apparent distress General Appearance: cooperative HEENT normocephalic and head/scalp atraumatic Eyes PERRL and (more content not included)... Normal [facility] Electrocardiogram reportOrde red By: Akhil Carlson on 06-26-2025 EKG study [facility] [address] [place] [address] 12 Lead EKG 06/24/25 1044 MR#: [id number] Acct: [id number] Name: MARLI ROSALES Rep #:[id number] : 1935 89 From: Akhil Carlson MD Attending Dr: Dr. Joni Cochran MD Status: ADM HAIM Ordering Dr: Biju Quezada DO Date: Location: [facility] Sex: F C Admitted: 06/24/25 Test Reason : PALPS Blood Pressure : */* mmHG Vent. Rate : 62 BPM Atrial Rate : 62 BPM P-R Int : 160 ms QRS Dur : 84 ms QT Int : 434 ms P-R-T Axes : 54 -28 26 degrees QTcB Int : 440 ms Normal sinus rhythm Minimal voltage criteria for LVH, may be normal variant ( R in aVL ) Possible Anterior infarct (cited on or before 28-May-2024) Abnormal ECG Confirmed by AKHIL CARLSON MD ([id number]), loan expeditor RODNEY GUTIERREZ ([id number]) on 06/26/2025 10:31:46 AM Referred By: TB Confirmed By: AKHIL CARLSON MD 06/26/25 1031 Date _ Akhil Carlson MD CC: Dr. Joni Cochran MD; Dr. Roma Grajeda DO; Dr. Biju Quezada DO ~ Signed [facility] Other Phone: Eosinophil percentageOrdered By: Joni Cochran on 06-26-2025 Eosinophils/100 WBC (Bld) 4.2 % 0-5 [facility] Erythrocyte distribution wid th ratioOrdered By: Joni Cochran on 06-26-2025 Erythrocyte distribution width (RBC) [Ratio] 14.1 % 11.6-14.6 [facility] Erythrocyte distribution wid th standard deviationOrdered By: Joni Cochran on 06-26-2025 Erythrocyte distribution width (RBC) [Ratio] 48.1 fl High 35.1-43.9 [facility] Glomerular filtration rate ( GFR) estimation/1.73 sq m using serum, plasma, or whole bOrdered By: Joni Cochran on 06-26-2025 GFR/1.73 sq M.predicted among non-blacks MDRD (S/P/Bld) [Vol rate/Area] 82 mL/min/{1.73_m2} >60 [facility] Comment on above: mL/min/1.73m2 CKD-EP I Creatinine Equation (2020) Hematocrit Auto (Bld) [Volum e fraction]Ordered By: Joni Cochran on 06-26-2025 Hematocrit (Bld) [Volume fraction] 30.4 % Low 37-47 [facility] Hemoglobin measurementOrdere d By: Joni Cochran on 06-26-2025 Hemoglobin (Bld) [Mass/Vol] 10.0 g/dL Low 12.0-15.0 [facility] Immature granulocytes/100 WB C Auto (Bld)Ordered By: Joni Cochran on 06-26-2025 Immature granulocytes/100 WBC (Bld) 0.200 % 0.0-0.9 [facility] Comment on above: IG% - Immature Granu locytes (promyelocytes, myelocytes and metamyelocytes) > 1% indicates that a LEFT SHIFT is Present. MCV (mean corpuscular volume ) determinationOrdered By: Joni Cochran on 06-26-2025 MCV (RBC) [Entitic vol] 93.5 fL 81-99 [facility] Magnesiumon 06-26-2025 Magnesium [Mass/Vol] 2.2 mg/dL Normal 1.5-2.2 [facility] Comment on above: Performed By: #### L 500.2500, L100.0100 #### [facility] [address] [place], [place], [id number] Magnesium measurement (mass/ volume)Ordered By: Joni Cochran on 06-26-2025 Magnesium (Unsp spec) [Mass/Vol] 2.2 mg/dL 1.5-2.2 [facility] Mean corpuscular hemoglobin (MCH) determinationOrdered By: Joni Cochran on 06-26-2025 MCH (RBC) [Entitic mass] 30.8 pg 27.0-32.0 [facility] Mean corpuscular hemoglobin concentration (MCHC) determinationOrdered By: Joni Cochran on 06-26-2025 MCHC (RBC) [Mass/Vol] 32.9 g/dL 32-36 [facility] Mean platelet volume determi nationOrdered By: Joni Cochran on 06-26-2025 Platelet mean volume (Bld) [Entitic vol] 9.2 fL 6.2-12.0 [facility] Monocyte percentageOrdered B y: Joni Cochran on 06-26-2025 Monocytes/100 WBC (Bld) 10.0 % 0-10 [facility] Neutrophil percentageOrdered By: Joni Cochran on 06-26-2025 Neutrophils/100 WBC (Bld) 57.6 % 47-70 [facility] Nucleated red blood cell per centageOrdered By: Joni Cochran on 06-26-2025 Nucleated RBC/100 WBC (Bld) [Ratio] 0 % 0-5 [facility] Phosphoruson 06-26-2025 Phosphate [Mass/Vol] 3.6 mg/dL Normal 2.7-4.5 [facility] Comment on above: Performed By: #### L 500.2500, L100.0100 #### [facility] [address], [address] Platelet countOrdered By: Juan M Cochran on 06-26-2025 Platelets (Bld) [#/Vol] 275 10*3/uL 150-450 [facility] Potassium measurement (mass/ volume)Ordered By: Joni Cochran on 06-26-2025 Potassium (Unsp spec) [Mass/Vol] 4.2 mmol/L 3.3-5.1 [facility] RBC Auto (Bld) [#/Vol]Ordere d By: Joni Cochran on 06-26-2025 RBC (Bld) [#/Vol] 3.25 10*6/uL Low 4.2-5.4 [facility] Serum creatinine measurement (mass/volume)Ordered By: Joni Cochran on 06-26-2025 Creatinine [Mass/Vol] 0.71 mg/dL 0.70-1.20 [facility] Serum glucose measurement (m ass/volume)Ordered By: Joni Cochran on 06-26-2025 Glucose [Mass/Vol] 87 mg/dL 70-99 [facility] Serum or plasma calcium rosa isela urement (mass/volume)Ordered By: Joni Cochran on 06-26-2025 Calcium [Mass/Vol] 9.2 mg/dL 7.6-11.0 [facility] Serum or plasma urea nitroge n measurement (mass/volume)Ordered By: Joni Cochran on 06-26-2025 Urea nitrogen [Mass/Vol] 21 mg/dL High - [facility] Sodium levelOrdered By: Leodan Cochran on 06-26-2025 Sodium [Moles/Vol] 136 mmol/L 133-145 [facility] White blood cell (WBC) count Ordered By: Joni Cochran on 06-26-2025 WBC (Bld) [#/Vol] 5.2 10*3/uL 4.4-11.0 [facility] Basic Metabolic Profile (BMP )on 06-25-2025 BUN/CRE 26.7 RATIO High 10-20 [facility] Comment on above: Performed By: #### L 500.2500, L100.0100, L501.5200, L501.9520 #### [facility] [address] [place], [address] Calcium [Mass/Vol] 9.4 mg/dL Normal 7.6-11.0 [facility] Comment on above: Performed By: #### L 500.2500, L100.0100, L501.5200, L501.9520 #### [facility] [address] [place], [address] Chloride [Moles/Vol] 104 mmol/L Normal 98-108 [facility] Comment on above: Performed By: #### L 500.2500, L100.0100, L501.5200, L501.9520 #### [facility] [address] [place], [address] CO2 [Moles/Vol] 22.9 mmol/L Normal 21.0-32.0 [facility] Comment on above: Performed By: #### L 500.2500, L100.0100, L501.5200, L501.9520 #### [facility] [address] [place], [address] Creatinine [Mass/Vol] 0.82 mg/dL Normal 0.70-1.20 [facility] Comment on above: Performed By: #### L 500.2500, L100.0100, L501.5200, L501.9520 #### [facility] [address] [place], [address] ECRCL 41.37 ml/min Low 50-250 [facility] Comment on above: Performed By: #### L 500.2500, L100.0100, L501.5200, L501.9520 #### [facility] [address] [place], [address] GAP 12 Normal 5-15 [facility] Comment on above: Performed By: #### L 500.2500, L100.0100, L501.5200, L501.9520 #### [facility] [address] [place], [address] GFR/1.73 sq M.predicted among non-blacks MDRD (S/P/Bld) [Vol rate/Area] 69 mL/min/{1.73_m2} Normal >60 [facility] Comment on above: Result Comment: mL/m in/1.73m2 CKD-EPI Creatinine Equation (2020) Performed By: #### L 500.2500, L100.0100, L501.5200, L501.9520 #### [facility] [address] [place], [address] Glucose [Mass/Vol] 89 mg/dL Normal 70-99 [facility] Comment on above: Performed By: #### L 500.2500, L100.0100, L501.5200, L501.9520 #### [facility] [address] [place], [address] Potassium [Moles/Vol] 4.5 mmol/L Normal 3.3-5.1 [facility] Comment on above: Performed By: #### L 500.2500, L100.0100, L501.5200, L501.9520 #### [facility] [address] [place], [address] Sodium [Moles/Vol] 138 mmol/L Normal 133-145 [facility] Comment on above: Performed By: #### L 500.2500, L100.0100, L501.5200, L501.9520 #### [facility] [address] [place], [address] Urea nitrogen [Mass/Vol] 22 mg/dL High 4-19 [facility] Comment on above: Performed By: #### L 500.2500, L100.0100, L501.5200, L501.9520 #### [facility] [address] [place], [address] CBC W/Diff, Automatedon -10 15-2024 Absolute Lymph 1.22 X10 3/uL Normal 0.83-4.51 [facility] Comment on above: Performed By: #### L 500.2500, L100.0100, L501.5200, L501.9520 #### [facility] [address] [place], [address] Absolute Neut 3.8 X10 3/uL Normal 2.0-7.7 [facility] Comment on above: Performed By: #### L 500.2500, L100.0100, L501.5200, L501.9520 #### [facility] [address] [place], [address] Basophils/100 WBC (Bld) 1.0 % Normal 0-1 [facility] Comment on above: Performed By: #### L 500.2500, L100.0100, L501.5200, L501.9520 #### [facility] [address] [place], [address] Eosinophils/100 WBC (Bld) 3.1 % Normal 0-5 [facility] Comment on above: Performed By: #### L 500.2500, L100.0100, L501.5200, L501.9520 #### [facility] [address] [place], [address] Erythrocyte distribution width (RBC) [Ratio] 13.9 % Normal 11.6-14.6 [facility] Comment on above: Performed By: #### L 500.2500, L100.0100, L501.5200, L501.9520 #### [facility] [address] [place], [address] Hematocrit (Bld) [Volume fraction] 34.3 % Low 37-47 [facility] Comment on above: Performed By: #### L 500.2500, L100.0100, L501.5200, L501.9520 #### [facility] [address] [place], [address] Hemoglobin (Bld) [Mass/Vol] 11.1 g/dL Low 12.0-15.0 [facility] Comment on above: Performed By: #### L 500.2500, L100.0100, L501.5200, L501.9520 #### [facility] [address] [place], [address] IG% 0.200 Normal 0.0-0.9 [facility] Comment on above: Result Comment: IG% - Immature Granulocytes (promyelocytes, myelocytes and metamyelocytes) > 1% indicates that a LEFT SHIFT is Present. Performed By: #### L 500.2500, L100.0100, L501.5200, L501.9520 #### [facility] [address] [place], [address] Lymphocytes/100 WBC (Bld) 21.1 % Normal 19-41 [facility] Comment on above: Performed By: #### L 500.2500, L100.0100, L501.5200, L501.9520 #### [facility] [address] [place], [address] MCH (RBC) [Entitic mass] 30.1 pg Normal 27.0-32.0 [facility] Comment on above: Performed By: #### L 500.2500, L100.0100, L501.5200, L501.9520 #### [facility] [address] [place], [address] MCHC (RBC) [Mass/Vol] 32.4 g/dL Normal 32-36 [facility] Comment on above: Performed By: #### L 500.2500, L100.0100, L501.5200, L501.9520 #### [facility] [address] [place], [address] MCV (RBC) [Entitic vol] 93.0 fL Normal 81-99 [facility] Comment on above: Performed By: #### L 500.2500, L100.0100, L501.5200, L501.9520 #### [facility] [address] [place], [address] Monocytes/100 WBC (Bld) 9.2 % Normal 0-10 [facility] Comment on above: Performed By: #### L 500.2500, L100.0100, L501.5200, L501.9520 #### [facility] [address] [place], [address] Neutrophils/100 WBC (Bld) 65.4 % Normal 47-70 [facility] Comment on above: Performed By: #### L 500.2500, L100.0100, L501.5200, L501.9520 #### [facility] [address] [place], [address] Nucleated RBC (Bld) [#/Vol] 0 10*3/uL Normal 0-5 [facility] Comment on above: Performed By: #### L 500.2500, L100.0100, L501.5200, L501.9520 #### [facility] [address] [place], [address] Platelet mean volume (Bld) [Entitic vol] 8.8 fL Normal 6.2-12.0 [facility] Comment on above: Performed By: #### L 500.2500, L100.0100, L501.5200, L501.9520 #### [facility] [address] [place], [address] Platelets (Bld) [#/Vol] 283 10*3/uL Normal 150-450 [facility] Comment on above: Performed By: #### L 500.2500, L100.0100, L501.5200, L501.9520 #### [facility] [address] [place], [address] RBC (Bld) [#/Vol] 3.69 10*6/uL Low 4.2-5.4 [facility] Comment on above: Performed By: #### L 500.2500, L100.0100, L501.5200, L501.9520 #### [facility] [address] [place], [address] RDW SD 47.8 fl High 35.1-43.9 [facility] Comment on above: Performed By: #### L 500.2500, L100.0100, L501.5200, L501.9520 #### [facility] [address] [place], [address] WBC (Bld) [#/Vol] 5.8 10*3/uL Normal 4.4-11.0 [facility] Comment on above: Performed By: #### L 500.2500, L100.0100, L501.5200, L501.9520 #### [facility] [address] [place], [address] Magnesiumon 06-25-2025 Magnesium [Mass/Vol] 2.4 mg/dL High 1.5-2.2 [facility] Comment on above: Performed By: #### L 501.4020, L100.0100, L500.2500 #### [facility] [address] [place], [address] TSH DL <= 0.005 mIU/L QnOrde red By: Huma Khan on 06-25-2025 TSH Qn 1.280 uIU/mL 0.300-4.200 [facility] Thyroid Stim Hormone (TSH)on 06-25-2025 TSH 1.280 uIU/mL Normal 0.300-4.200 [facility] Comment on above: Performed By: #### L 501.4020, L100.0100, L500.2500 #### [facility] [address] [place], [address] 12 Lead EKGon 06-24-2025 12 Lead EKG [facility] Cardi[facility] Services [address] [place] [address] 12 Lead EKG 06/24/25 1044 MR#: [id number] Acct: [id number] Name: MARLI ROSALES Rep #: [id number] : 1935 89 From: Akhil Carlson MD Attending Dr: Dr. Joni Cochran MD Status: ADM HAIM Ordering Dr: Biju Quezada DO Date: 06/24/25 Location: [facility]3 Sex: F C Admitted: 06/24/25 Test Reason : PALPS Blood Pressure : */* mmHG Vent. Rate : 62 BPM Atrial Rate : 62 BPM P-R Int : 160 ms QRS Dur : 84 ms QT Int : 434 ms P-R-T Axes : 54 -28 26 degrees QTcB Int : 440 ms Normal sinus rhythm Minimal voltage criteria for LVH, may be normal variant ( R in aVL ) Possible Anterior infarct (cited on or before 28-May-2024) Abnormal ECG Confirmed by TANG LE, AKHIL ([id number]), loan expeditor RODNEY GUTIERREZ ([id number]) on 06/26/2025 10:31:46 AM Referred By: TB Confirmed By: AKHIL CARLSON MD 06/26/25 1031 Date Akhil Carlson MD CC: Dr. Joni Cochran MD; Dr. Roma Grajeda DO; Dr. Biju Quezada DO Signed Normal [facility] Absolute lymphocyte countOrd ered By: Biju Quezada on 06-24-2025 Lymphocytes Auto (Unsp spec) [#/Vol] 1.65 10*3/uL 0.83-4.51 [facility] Absolute neutrophil countOrd ered By: Biju Quezada on 06-24-2025 Neutrophils (Bld) [#/Vol] 3.8 10*3/uL 2.0-7.7 [facility] Anion gap in Serum or Plasma Ordered By: Remus Pilar on 06-24-2025 Anion gap [Moles/Vol] 13 mmol/L 5-15 [facility] Automated lymphocyte count a s percentage of total leukocytesOrdered By: Remus Ungdeepali on 06-24-2025 Lymphocytes/100 WBC Auto (Unsp spec) 26.2 % 19-41 [facility] BUN/creatinine ratioOrdered By: Remus Ungdeepali on 06-24-2025 Urea nitrogen/Creatinine [Mass ratio] 26.2 mg/mg High - [facility] Basic Metabolic Profile (BMP )on 06-24-2025 BUN/CRE 26.2 RATIO High 07-27 [facility] Comment on above: Performed By: #### L 500.2500, L100.0100 #### [facility] [address] [place], [address] Calcium [Mass/Vol] 9.3 mg/dL Normal 7.6-11.0 [facility] Comment on above: Performed By: #### L 500.2500, L100.0100 #### [facility] [address] [place], [address] Chloride [Moles/Vol] 98 mmol/L Normal 98-108 [facility] Comment on above: Performed By: #### L 500.2500, L100.0100 #### [facility] [address] [place], [address] CO2 [Moles/Vol] 23.2 mmol/L Normal 21.0-32.0 [facility] Comment on above: Performed By: #### L 500.2500, L100.0100 #### [facility] [address] [place], [address] Creatinine [Mass/Vol] 1.17 mg/dL Normal 0.70-1.20 [facility] Comment on above: Performed By: #### L 500.2500, L100.0100 #### [facility] [address] [place], [address] ECRCL 28.99 ml/min Low 50-250 [facility] Comment on above: Performed By: #### L 500.2500, L100.0100 #### [facility] [address] [place], [address] GAP 13 Normal 5-15 [facility] Comment on above: Performed By: #### L 500.2500, L100.0100 #### [facility] [address] [place], [address] GFR/1.73 sq M.predicted among non-blacks MDRD (S/P/Bld) [Vol rate/Area] 45 mL/min/{1.73_m2} Low >60 [facility] Comment on above: Result Comment: mL/m in/1.73m2 CKD-EPI Creatinine Equation (2020) Performed By: #### L 500.2500, L100.0100 #### [facility] [address] [place], [address] Glucose [Mass/Vol] 138 mg/dL High 70-99 [facility] Comment on above: Performed By: #### L 500.2500, L100.0100 #### [facility] [address] [place], [address] Potassium [Moles/Vol] 4.4 mmol/L Normal 3.3-5.1 [facility] Comment on above: Performed By: #### L 500.2500, L100.0100 #### [facility] [address] [place], [address] Sodium [Moles/Vol] 134 mmol/L Normal 133-145 [facility] Comment on above: Performed By: #### L 500.2500, L100.0100 #### [facility] [address] [place], [address] Urea nitrogen [Mass/Vol] 31 mg/dL High 4-19 [facility] Comment on above: Performed By: #### L 500.2500, L100.0100 #### [facility] [address] [place], [address] Basophil percentageOrdered B y: Biju Quezada on 06-24-2025 Basophils/100 WBC (Bld) 0.8 % 0-1 [facility] Bilirubin Test strip Ql (U)O rdered By: Remus Ungur on 06-24-2025 Bilirubin Ql (U) Negative Negative [facility] CBC W/Diff, Automatedon 06-08 Absolute Lymph 1.65 X10 3/uL Normal 0.83-4.51 [facility] Comment on above: Performed By: #### L 500.2500, L100.0100 #### [facility] [address] [place], [address] Absolute Neut 3.8 X10 3/uL Normal 2.0-7.7 [facility] Comment on above: Performed By: #### L 500.2500, L100.0100 #### [facility] [address] [place], [address] Basophils/100 WBC (Bld) 0.8 % Normal 0-1 [facility] Comment on above: Performed By: #### L 500.2500, L100.0100 #### [facility] [address] [place], [address] Eosinophils/100 WBC (Bld) 2.7 % Normal 0-5 [facility] Comment on above: Performed By: #### L 500.2500, L100.0100 #### [facility] [address] [place], [address] Erythrocyte distribution width (RBC) [Ratio] 13.9 % Normal 11.6-14.6 [facility] Comment on above: Performed By: #### L 500.2500, L100.0100 #### [facility] [address] [place], [address] Hematocrit (Bld) [Volume fraction] 34.5 % Low 37-47 [facility] Comment on above: Performed By: #### L 500.2500, L100.0100 #### [facility] [address] [place], [address] Hemoglobin (Bld) [Mass/Vol] 10.8 g/dL Low 12.0-15.0 [facility] Comment on above: Performed By: #### L 500.2500, L100.0100 #### [facility] [address] [place], [address] IG% 0.300 Normal 0.0-0.9 [facility] Comment on above: Result Comment: IG% - Immature Granulocytes (promyelocytes, myelocytes and metamyelocytes) > 1% indicates that a LEFT SHIFT is Present. Performed By: #### L 500.2500, L100.0100 #### [facility] [address] [place], [address] Lymphocytes/100 WBC (Bld) 26.2 % Normal 19-41 [facility] Comment on above: Performed By: #### L 500.2500, L100.0100 #### [facility] [address] [place], [address] MCH (RBC) [Entitic mass] 29.8 pg Normal 27.0-32.0 [facility] Comment on above: Performed By: #### L 500.2500, L100.0100 #### [facility] [address] [place], [address] MCHC (RBC) [Mass/Vol] 31.3 g/dL Low 32-36 [facility] Comment on above: Performed By: #### L 500.2500, L100.0100 #### [facility] [address] [place], [address] MCV (RBC) [Entitic vol] 95.0 fL Normal 81-99 [facility] Comment on above: Performed By: #### L 500.2500, L100.0100 #### [facility] [address] [place], [address] Monocytes/100 WBC (Bld) 10.0 % Normal 0-10 [facility] Comment on above: Performed By: #### L 500.2500, L100.0100 #### [facility] [address] [place], [address] Neutrophils/100 WBC (Bld) 60.0 % Normal 47-70 [facility] Comment on above: Performed By: #### L 500.2500, L100.0100 #### [facility] [address] [place], [address] Nucleated RBC (Bld) [#/Vol] 0 10*3/uL Normal 0-5 [facility] Comment on above: Performed By: #### L 500.2500, L100.0100 #### [facility] [address] [place], [address] Platelet mean volume (Bld) [Entitic vol] 9.0 fL Normal 6.2-12.0 [facility] Comment on above: Performed By: #### L 500.2500, L100.0100 #### [facility] [address] [place], [address] Platelets (Bld) [#/Vol] 310 10*3/uL Normal 150-450 [facility] Comment on above: Performed By: #### L 500.2500, L100.0100 #### [facility] [address] [place], [address] RBC (Bld) [#/Vol] 3.63 10*6/uL Low 4.2-5.4 [facility] Comment on above: Performed By: #### L 500.2500, L100.0100 #### [facility] [address] [place], [address] RDW SD 49.1 fl High 35.1-43.9 [facility] Comment on above: Performed By: #### L 500.2500, L100.0100 #### [facility] [address] [place], [address] WBC (Bld) [#/Vol] 6.3 10*3/uL Normal 4.4-11.0 [facility] Comment on above: Performed By: #### L 500.2500, L100.0100 #### [facility] [address] [facility] [place], [address] Carbon dioxide, total [Moles /volume] in Central venous bloodOrdered By: Biju Quezada on 06-24-2025 CO2 [Moles/Vol] 23.2 mmol/L 21.0-32.0 [facility] Chloride assayOrdered By: Brianne Quezada on 06-24-2025 Chloride [Moles/Vol] 98 mmol/L 98-108 [facility] Emergency Department Summary on 06-24-2025 Emergency Department Summary [facility] Medical Records Department [address] [place] [address] Emergency Department Summary 06/24/25 MR#: [id number] Acct: [id number] Name: MARLI ROSALES Rep #: [id number] : 1935 89 From: Biju Quezada DO PCP: Dr. Roma Grajeda, DO Status:ADM HAIM Location: [place] [address] HPI History of Present Illness Chief Complaint: Syncope Detail of Chief Complaint: Near syncope Informant: patient Narrative Narrative: Patient presents to the emergency department with complaint of a near syncopal episode. She states that she believes this was another vagal episode. She was doing a puzzle when she felt the urge to use the restroom and she went to the bathroom and sat on the toilet initially for a short time. She was then was able to stand and pull her pants down and had a bowel movement. She then became acutely weak and sweaty and felt like she might pass out but does not think she passed out. She states she just did not feel well this morning somewhat weak. She denies chest pain or palpitations. She denies shortness of breath. She is currently feeling improved. She has had similar episodes in the past. Denies recent illness. Denies dysuria or urgency. She does have urinary frequency which is not uncommon [facility] Medical History Irritable bowel syndrome Spinal stenosis [...] intake: never ROS ROS ED ROS Narrative Near syncope, diaphoresis Review of Systems ROS Unobtainable: other Constitutional Constitutional ED: Reports lethargy; Denies chills, fever(s), sweats or weight loss Eyes Eyes: Denies blurry vision, change in vision or diplopi (more content not included)... Normal [facility] Eosinophil percentageOrdered By: Biju Quezada on 06-24-2025 Eosinophils/100 WBC (Bld) 2.7 % 0-5 [facility] Erythrocyte distribution wid th ratioOrdered By: Biju Kangdeepali on 06-24-2025 Erythrocyte distribution width (RBC) [Ratio] 13.9 % 11.6-14.6 [facility] Erythrocyte distribution wid th standard deviationOrdered By: Remus Kangdeepali on 06-24-2025 Erythrocyte distribution width (RBC) [Ratio] 49.1 fl High 35.1-43.9 [facility] Glomerular filtration rate ( GFR) estimation/1.73 sq m using serum, plasma, or whole bOrdered By: Lay Pilar on 06-24-2025 GFR/1.73 sq M.predicted among non-blacks MDRD (S/P/Bld) [Vol rate/Area] 45 mL/min/{1.73_m2} Low >60 [facility] Comment on above: mL/min/1.73m2 CKD-EP I Creatinine Equation (2020) H AND P Exam - [facility] 06-24-2025 H&P Exam - Hospitalist [facility] Medical Records Department [address] [place] [address] H P Exam - Hospitalist 06/24/25 1406 MR#: [id number] Acct: [id number] Name: MARLI ROSALES Rep #: [id number] : 1935 89 From: Huma Khan MD PCP: Dr. Roma Grajeda, DO Status:ADM HAIM Location: [facility] [id number] HPI - General General Date of Admission: 06/24/25 Date of Service: 06/24/25 Chief Complaint: Generalized weakness HPI Narrative MARLI ROSALES, is a 89-year-old female with a history of hypothyroidism, GERD, hypertension presented [facility] ED 06/24/2025 with complaint of generalized weakness and vasovagal episode. She was doing a puzzle and felt the urge to use the restroom and when she went to the bathroom she then had a bowel movement and became acutely weak and sweaty and felt like she might pass out but does not think she lost consciousness. She also [...] history of recurrent UTIs. Patient still feeling generally weak, suspected due to UTI so hospitalist contacted [...] vomiting, no other new or acute complaints [facility] Medical History Irritable bowel syndrome Spinal stenosis [...] mg PO DAILY UTI prevention Unknown History cyanocobalamin (vitamin B-12) 1,000 mcg PO DAILY #30 tabs Unknown Rx 1,000 mcg tablet acetaminophen 500 mg tablet 1,000 mg PO Q8H PRN PRN arthritis 06/24/25 Unknown History pain amlodipine 2.5 mg tablet 2.5 mg PO DAILY 06/24/25 Unknown H istory cetirizine 10 mg capsule (Allergy 10 mg PO DAILY allergies 06/24/25 Unknown History Relief (cetirizine)) cyclobenzaprine 10 mg tablet 10 mg PO TID PRN muscle spasms Unknown History hyoscyamine sulfate 0.125 mg tablet 0.125 mg PO TID PRN abd crampin g 06/24/25 Unknown History pantoprazole 40 mg tablet,delayed 40 mg PO Q12H GERD 06/24/25 Unkno wn History release Allergy/AdvReac Type Severity R (more content not included)... Normal [facility] Hematocrit Auto (Bld) [Volum e fraction]Ordered By: Biju Quezada on 06-24-2025 Hematocrit (Bld) [Volume fraction] 34.5 % Low 37-47 [facility] Hemoglobin measurementOrdere d By: Biju Quezada on 06-24-2025 Hemoglobin (Bld) [Mass/Vol] 10.8 g/dL Low 12.0-15.0 [facility] Immature granulocytes/100 WB C Auto (Bld)Ordered By: Biuj Quezada on 06-24-2025 Immature granulocytes/100 WBC (Bld) 0.300 % 0.0-0.9 [facility] Comment on above: IG% - Immature Granu locytes (promyelocytes, myelocytes and metamyelocytes) > 1% indicates that a LEFT SHIFT is Present. Ketones Test strip Ql (U)Ord ered By: Biju Quezada on 06-24-2025 Ketones Ql (U) Negative Negative [facility] MCV (mean corpuscular volume ) determinationOrdered By: Biju Quezada on 06-24-2025 MCV (RBC) [Entitic vol] 95.0 fL 81-99 [facility] Mean corpuscular hemoglobin (MCH) determinationOrdered By: Biju Quezada on 06-24-2025 MCH (RBC) [Entitic mass] 29.8 pg 27.0-32.0 [facility] Mean corpuscular hemoglobin concentration (MCHC) determinationOrdered By: Biju Quezada on 06-24-2025 MCHC (RBC) [Mass/Vol] 31.3 g/dL Low 32-36 [facility] Mean platelet volume determi nationOrdered By: Biju Quezada on 06-24-2025 Platelet mean volume (Bld) [Entitic vol] 9.0 fL 6.2-12.0 [facility] Microscopic analysis of urin e for red blood cells (RBC)Ordered By: Biju Quezada on 06-24-2025 Microscopic analysis of urine for red blood cells (RBC) 0 SEEN /hpf 0-5 [facility] Monocyte percentageOrdered B y: Biju Quezada on 06-24-2025 Monocytes/100 WBC (Bld) 10.0 % 0-10 [facility] Mucus LM Ql (Urine sed)Order ed By: Biju Quezada on 06-24-2025 Mucus Ql (Urine sed) 0 SEEN /hpf [facility] Neutrophil percentageOrdered By: Biju Quezada on 06-24-2025 Neutrophils/100 WBC (Bld) 60.0 % 47-70 [facility] Nitrite Test strip Ql (U)Ord ered By: Biju Quezada on 06-24-2025 Nitrite Ql (U) Positive High Negative [facility] Nucleated red blood cell per centageOrdered By: Biju Quezada on 06-24-2025 Nucleated RBC/100 WBC (Bld) [Ratio] 0 % 0-5 [facility] Platelet countOrdered By: Brianne tracy Pilar on 06-24-2025 Platelets (Bld) [#/Vol] 310 10*3/uL 150-450 [facility] Potassium measurement (mass/ volume)Ordered By: Biju Quezada on 06-24-2025 Potassium (Unsp spec) [Mass/Vol] 4.4 mmol/L 3.3-5.1 [facility] Protein Test strip Ql (U)Ord ered By: Biju Quezada on 06-24-2025 Protein Ql (U) 30 mg/dl High Negative [facility] RBC Auto (Bld) [#/Vol]Ordere d By: Biju Quezada on 06-24-2025 RBC (Bld) [#/Vol] 3.63 10*6/uL Low 4.2-5.4 [facility] Serum creatinine measurement (mass/volume)Ordered By: Biju Quezada on 06-24-2025 Creatinine [Mass/Vol] 1.17 mg/dL 0.70-1.20 [facility] Serum glucose measurement (m ass/volume)Ordered By: Biju Quezada on 06-24-2025 Glucose [Mass/Vol] 138 mg/dL High 70-99 [facility] Serum or plasma calcium rosa isela urement (mass/volume)Ordered By: Biju Quezada on 06-24-2025 Calcium [Mass/Vol] 9.3 mg/dL 7.6-11.0 [facility] Serum or plasma urea nitroge n measurement (mass/volume)Ordered By: Biju Quezada on 06-24-2025 Urea nitrogen [Mass/Vol] 31 mg/dL High 4-19 [facility] Sodium levelOrdered By: Gia Quezada on 06-24-2025 Sodium [Moles/Vol] 134 mmol/L 133-145 [facility] Squamous epithelial cells de tection in urine sediment by light microscopyOrdered By: Biju Quezada on 06-24-2025 Epithelial cells.squamous LM Ql (Urine sed) 5-10 SEEN /hpf 5-10 [facility] Urinalysis, Completeon 06-24 EPI,SQUAMOUS 5-10 SEEN Normal 5-10 [facility] Comment on above: Order Comment: 'TROP ' Serial specimen #1, #2 or #3: 1 Performed By: #### L 501.4020, L100.0100, L500.2500 #### [facility] [address] [place], [address] WBC 25-50 SEEN Normal 0-5 [facility] Comment on above: Order Comment: 'TROP ' Serial specimen #1, #2 or #3: 1 Performed By: #### L 501.4020, L100.0100, L500.2500 #### [facility] [address] [place], [address] BACTERIA 0 SEEN Normal None Seen [facility] Comment on above: Order Comment: 'TROP ' Serial specimen #1, #2 or #3: 1 Performed By: #### L 501.4020, L100.0100, L500.2500 #### [facility] [address] [place], [address] Mucus Ql (Urine sed) 0 SEEN Normal [facility] Comment on above: Order Comment: 'TROP ' Serial specimen #1, #2 or #3: 1 Performed By: #### L 501.4020, L100.0100, L500.2500 #### [facility] [address] [place], [address] RBC 0 SEEN Normal 0-5 [facility] Comment on above: Order Comment: 'TROP ' Serial specimen #1, #2 or #3: 1 Performed By: #### L 501.4020, L100.0100, L500.2500 #### [facility] [address] [place], [address] Urine clarityOrdered By: Rem us Ungur on 06-24-2025 Clarity (U) Sl. Cloudy Clear [facility] Urine color determinationOrd ered By: Remus Ungur on 06-24-2025 Color (U) Yellow Yellow [facility] Urine cultureOrdered By: Rem us Ungur on 06-24-2025 Bacteria identified Cx Nom (U) Escherichia coli Abnormal [facility] Bacteria identified Cx Nom (U) Enterococcus faecalis Abnormal [facility] Urine glucose detectionOrder ed By: Biju Pilar on 06-24-2025 Glucose Ql (U) Normal mg/dl Normal [facility] Urine leukocyte esterase det ection by dipstickOrdered By: Biju Quezada on 06-24-2025 Leukocyte esterase Test strip Ql (U) 500 /ul High Negative [facility] Urine pHOrdered By: Biju Un gur on 06-24-2025 pH (U) 6.5 [pH] 5.0 - 8.0 [facility] Urine sediment bacteria coun t by microscopy (number/high power field)Ordered By: Biju Quezada on 06-24-2025 Bacteria LM.HPF (Urine sed) [#/Area] 0 /[HPF] None Seen [facility] Urine specific gravity measu rementOrdered By: Biju Quezada on 06-24-2025 Specific gravity (U) [Rel density] 1.010 1.002-1.030 [facility] Urine urobilinogen measureme ntOrdered By: Biju Quezada on 06-24-2025 Urobilinogen Ql (U) Normal mg/dl Normal [facility] White blood cell (WBC) count Ordered By: Biju Quezada on 06-24-2025 WBC (Bld) [#/Vol] 6.3 10*3/uL 4.4-11.0 [facility] White blood cell countOrdere d By: Biju Quezada on 06-24-2025 White blood cell count 25-50 SEEN /hpf 0-5 [facility] Emergency Department Summary on 06-11-2025 Emergency Department Summary [facility] Medical Records Department [address] [place] [address] Emergency Department Summary 06/11/25 MR#: [id number] Acct: [id number] Name: MARLI ROSALES Rep #: [id number] : 1935 89 From: Myrtle Sullivan MD PCP: Dr. Roma Grajeda, DO Status:[facility] Location: ED HPI History of Present [...] She thinks that the ciprofloxacin caused her "scar tissue to act up" in her right hip. She denies any fever or chills. She ambulates with a rollator. Denies any pain that radiates down her leg. Denies any weakness or numbness in her right leg. Denies any new back pain from baseline. Has been taking her tramadol for pain control at home. Denies any falls or trauma to her hip. [facility] Medical History Irritable bowel syndrome Spinal stenosis [...] without lymp (more content not included)... Normal [facility] HIP, UNI W/ Pelvis 2-3 Views on 06-11-2025 HIP, UNI W/ Pelvis 2-3 Views [facility] Imaging Services [address] [place], [place] [address] HIP, UNI W/ Pelvis 2-3 Views MR#: [id number] Acct: [id number] Name: MARLI ROSALES Rep #: [id number] : 1935 F 89 From: Fernie Jim MD PCP: Dr. Roma Grajeda DO Status: PRE ER Study: HIP, UNI W/ Pelvis 2-3 Views Date of Exam: 01/30 Exam# [id number] Ordering Dr: Myrtle Sullivan MD PROCEDURE: HIP, [...] Findings and recommendations discussed above. Reading Location: [facility] CC: Dr. Myrtle Sullivan MD; Dr. Roma Grajeda DO [employer] Worker: Signed Normal [facility] BSCAN AND ASCAN OD (RIGHT EY E)on 11-27-2024 [facility] Radiology Study observation (narrative) [facility] FUNDUS AUTOFLUORESCENCE PHOT O (FAF) OD (RIGHT EYE)on 11-27-2024 [facility] Radiology Study observation (narrative) [facility] OCT MACULA CIRRUS OD (RIGHT EYE)on 11-27-2024 [facility] Radiology Study observation (narrative) [facility] Right eye Photo documentatio non 11-27-2024 [facility] Radiology Study observation (narrative) [facility] Basic Metabolic Profile (BMP )on 11-24-2024 BUN/CRE 21.2 RATIO High 10- [facility] Comment on above: Performed By: #### L 501.4020, L100.0100, L500.2500 #### [facility] Laboratory [address] [place], [address] CA,Total 9.2 mg/dL Normal 8.5-10.1 [facility] Comment on above: Performed By: #### L 501.4020, L100.0100, L500.2500 #### [facility] [address] [place], [address] Chloride [Moles/Vol] 106 mmol/L Normal 98-107 [facility] Comment on above: Performed By: #### L 501.4020, L100.0100, L500.2500 #### [facility] [address] [place], [address] CO2 [Moles/Vol] 24.0 mmol/L Normal 21.0-32.0 [facility] Comment on above: Performed By: #### L 501.4020, L100.0100, L500.2500 #### [facility] [address] [place], [address] Creatinine [Mass/Vol] 0.80 mg/dL Normal 0.55-1.02 [facility] Comment on above: Result Comment: The validity of the calculated GFR GFRAA in patients over 70 years has not been determined. Clinical correlation is essential. Performed By: #### L 501.4020, L100.0100, L500.2500 #### [facility] [address] [place], [address] ECRCL 42.69 ml/min Normal [facility] Comment on above: Performed By: #### L 501.4020, L100.0100, L500.2500 #### [facility] [address] [place], [address] EST GFR - AA 87 mL/min Normal >60 [facility] Comment on above: Result Comment: Afri can Surinamese GFR Calc Performed By: #### L 501.4020, L100.0100, L500.2500 #### [facility] [address] [place], [address] GAP 6 Normal 5-15 [facility] Comment on above: Performed By: #### L 501.4020, L100.0100, L500.2500 #### [facility] [address] [place], [address] GFR/1.73 sq M.predicted among non-blacks MDRD (S/P/Bld) [Vol rate/Area] 72 mL/min/{1.73_m2} Normal >60 [facility] Comment on above: Result Comment: Non- GFR Calc Performed By: #### L 501.4020, L100.0100, L500.2500 #### [facility] [address] [place], [address] Glucose [Mass/Vol] 84 mg/dL Normal 74-106 [facility] Comment on above: Performed By: #### L 501.4020, L100.0100, L500.2500 #### [facility] [address] [place], [address] Potassium [Moles/Vol] 4.3 mmol/L Normal 3.5-5.1 [facility] Comment on above: Performed By: #### L 501.4020, L100.0100, L500.2500 #### [facility] [address] [place], [address] Sodium [Moles/Vol] 136 mmol/L Normal 136-145 [facility] Comment on above: Performed By: #### L 501.4020, L100.0100, L500.2500 #### [facility] [address] [place], [address] Urea nitrogen [Mass/Vol] 17 mg/dL Normal 7-18 [facility] Comment on above: Performed By: #### L 501.4020, L100.0100, L500.2500 #### [facility] [address] [place], [address] Phosphoruson 11-24-2024 Phosphate [Mass/Vol] 3.4 mg/dL Normal 2.5-4.9 [facility] Comment on above: Performed By: #### L 501.4020, L100.0100, L500.2500 #### [facility] [address] [place], [address] Vitamin B12on 11-24-2024 Cobalamin (Vitamin B12) [Mass/Vol] 278 pg/mL Normal 211-911 [facility] Comment on above: Performed By: #### L 501.4020, L100.0100, L500.2500 #### [facility] [address] [place], [address] CBC W/Diff, Automatedon - Absolute Lymph 1.24 X10 3/uL Normal 0.83-4.51 [facility] Comment on above: Performed By: #### L 500.2500, L100.0100 #### [facility] [address] [place], [address] Absolute Neut 2.8 X10 3/uL Normal 2.0-7.7 [facility] Comment on above: Performed By: #### L 500.2500, L100.0100 #### [facility] [address] [place], [address] Basophils/100 WBC (Bld) 0.8 % Normal 0-1 [facility] Comment on above: Performed By: #### L 500.2500, L100.0100 #### [facility] [address] [place], [address] Eosinophils/100 WBC (Bld) 5.8 % High 0-5 [facility] Comment on above: Performed By: #### L 500.2500, L100.0100 #### [facility] [address] [place], [address] Erythrocyte distribution width (RBC) [Ratio] 14.2 % Normal 11.6-14.6 [facility] Comment on above: Performed By: #### L 500.2500, L100.0100 #### [facility] [address] [place], [address] Hematocrit (Bld) [Volume fraction] 27.1 % Low 37-47 [facility] Comment on above: Performed By: #### L 500.2500, L100.0100 #### [facility] [address] [place], [address] Hemoglobin (Bld) [Mass/Vol] 8.6 g/dL Low 12.0-15.0 [facility] Comment on above: Performed By: #### L 500.2500, L100.0100 #### [facility] [address] [place], [address] IG% 0.400 Normal 0.0-0.9 [facility] Comment on above: Result Comment: IG% - Immature Granulocytes (promyelocytes, myelocytes and metamyelocytes) > 1% indicates that a LEFT SHIFT is Present. Performed By: #### L 500.2500, L100.0100 #### [facility] [address] [place], [address] Lymphocytes/100 WBC (Bld) 25.0 % Normal 19-41 [facility] Comment on above: Performed By: #### L 500.2500, L100.0100 #### [facility] [address] [place], [address] MCH (RBC) [Entitic mass] 29.6 pg Normal 27.0-32.0 [facility] Comment on above: Performed By: #### L 500.2500, L100.0100 #### [facility] [address] [place], [address] MCHC (RBC) [Mass/Vol] 31.7 g/dL Low 32-36 [facility] Comment on above: Performed By: #### L 500.2500, L100.0100 #### [facility] [address] [place], [address] MCV (RBC) [Entitic vol] 93.1 fL Normal 81-99 [facility] Comment on above: Performed By: #### L 500.2500, L100.0100 #### [facility] [address] [place], [address] Monocytes/100 WBC (Bld) 10.9 % High 0-10 [facility] Comment on above: Performed By: #### L 500.2500, L100.0100 #### [facility] [address] [place], [address] Neutrophils/100 WBC (Bld) 57.1 % Normal 47-70 [facility] Comment on above: Performed By: #### L 500.2500, L100.0100 #### [facility] [address] [place], [address] Nucleated RBC (Bld) [#/Vol] 0 10*3/uL Normal 0-5 [facility] Comment on above: Performed By: #### L 500.2500, L100.0100 #### [facility] [address] [place], [address] Platelet mean volume (Bld) [Entitic vol] 9.0 fL Normal 6.2-12.0 [facility] Comment on above: Performed By: #### L 500.2500, L100.0100 #### [facility] [address] [place], [address] Platelets (Bld) [#/Vol] 264 10*3/uL Normal 150-450 [facility] Comment on above: Performed By: #### L 500.2500, L100.0100 #### [facility] [address] [place], [address] RBC (Bld) [#/Vol] 2.91 10*6/uL Low 4.2-5.4 [facility] Comment on above: Performed By: #### L 500.2500, L100.0100 #### [facility] [address] [place], [address] RDW SD 48.5 fl High 35.1-43.9 [facility] Comment on above: Performed By: #### L 500.2500, L100.0100 #### [facility] [address] [place], [address] WBC (Bld) [#/Vol] 5.0 10*3/uL Normal 4.4-11.0 [facility] Comment on above: Performed By: #### L 500.2500, L100.0100 #### [facility] [address] [place], [address] Comprehensive Metabolic Prof ilon 11-23-2024 Albumin [Mass/Vol] 2.9 g/dL Low 3.2-5.0 [facility] Comment on above: Performed By: #### L 500.2500, L100.0100 #### [facility] [address] [place], [address] Albumin/Globulin [Mass ratio] 1.1 {ratio} Normal 0.9-2.4 [facility] Comment on above: Performed By: #### L 500.2500, L100.0100 #### [facility] [address] [place], [address] ALK P 63 U/L Normal 45-117 [facility] Comment on above: Performed By: #### L 500.2500, L100.0100 #### [facility] [address] [place], [address] ALT [Catalytic activity/Vol] 13 U/L Normal 13-56 [facility] Comment on above: Performed By: #### L 500.2500, L100.0100 #### [facility] [address] [place], [address] AST [Catalytic activity/Vol] 15 U/L Normal 15-37 [facility] Comment on above: Performed By: #### L 500.2500, L100.0100 #### [facility] [address] [place], [address] Bilirubin [Mass/Vol] 0.30 mg/dL Normal 0.20-1.00 [facility] Comment on above: Result Comment: For patients on eltrombopag therapy, use of Dimension [place] TBIL is not recommended. Performed By: #### L 500.2500, L100.0100 #### [facility] [address] [place], [address] BUN/CRE 24.8 RATIO High 10-20 [facility] Comment on above: Performed By: #### L 500.2500, L100.0100 #### [facility] [address] [place], [address] CA,Total 8.3 mg/dL Low 8.5-10.1 [facility] Comment on above: Performed By: #### L 500.2500, L100.0100 #### [facility] [address] [place], [address] Chloride [Moles/Vol] 104 mmol/L Normal 98-107 [facility] Comment on above: Performed By: #### L 500.2500, L100.0100 #### [facility] [address] [place], [address] CO2 [Moles/Vol] 23.0 mmol/L Normal 21.0-32.0 [facility] Comment on above: Performed By: #### L 500.2500, L100.0100 #### [facility] [address] [place], [address] Creatinine [Mass/Vol] 1.17 mg/dL High 0.55-1.02 [facility] Comment on above: Result Comment: The validity of the calculated GFR GFRAA in patients over 70 years has not been determined. Clinical correlation is essential. Performed By: #### L 500.2500, L100.0100 #### [facility] [address] [place], [address] ECRCL 29.25 ml/min Normal [facility] Comment on above: Performed By: #### L 500.2500, L100.0100 #### [facility] [address] [place], [address] EST GFR - AA 56 mL/min Low >60 [facility] Comment on above: Result Comment: Afri can Surinamese GFR Calc Performed By: #### L 500.2500, L100.0100 #### [facility] [address] [place], [address] GAP 6 Normal 5-15 [facility] Comment on above: Performed By: #### L 500.2500, L100.0100 #### [facility] [address] [place], [address] GFR/1.73 sq M.predicted among non-blacks MDRD (S/P/Bld) [Vol rate/Area] 46 mL/min/{1.73_m2} Low >60 [facility] Comment on above: Result Comment: Non- GFR Calc Performed By: #### L 500.2500, L100.0100 #### [facility] [address] [place], [address] Globulin (S) [Mass/Vol] 2.7 g/dL Normal 2.2-4.2 [facility] Comment on above: Performed By: #### L 500.2500, L100.0100 #### [facility] [address] [place], [address] Glucose [Mass/Vol] 92 mg/dL Normal 74-106 [facility] Comment on above: Performed By: #### L 500.2500, L100.0100 #### [facility] [address] [place], [address] Potassium [Moles/Vol] 4.6 mmol/L Normal 3.5-5.1 [facility] Comment on above: Performed By: #### L 500.2500, L100.0100 #### [facility] [address] [place], [address] Sodium [Moles/Vol] 133 mmol/L Low 136-145 [facility] Comment on above: Performed By: #### L 500.2500, L100.0100 #### [facility] [address] [place], [address] T PROT 5.6 g/dL Low 6.4-8.2 [facility] Comment on above: Performed By: #### L 500.2500, L100.0100 #### [facility] [address] [place], [address] Urea nitrogen [Mass/Vol] 29 mg/dL High 7-18 [facility] Comment on above: Performed By: #### L 500.2500, L100.0100 #### [facility] [address] [place], [address] Osmolality, Serumon 11-23-19 25 OSMOLALITY,SER 285 mOsm/KG Normal 280-301 [facility] Comment on above: Performed By: #### L 501.4020, L100.0100, L500.2500 #### [facility] [address] [place], [address] Osmolality, Urineon 11-23-19 25 OSMOLALITY,UR 383 mOsm/KG Normal [facility] Comment on above: Result Comment: Normal Urine Reference Ranges Random: 50 - 1200 mOsm/kg H20 depending on fluid intake Random: >850 mOsm/kg after 12 hour fluid restriction 24 hour: 300 - 900 mOsm/kg H2O Performed By: #### L 501.7400 #### [facility] [address] [place], [address] Phosphoruson 11-23-2024 Phosphate [Mass/Vol] 3.9 mg/dL Normal 2.5-4.9 [facility] Comment on above: Performed By: #### L 500.2500, L100.0100 #### [facility] [address] [place], [address] 12 Lead EKGon 11-22-2024 12 Lead EKG [facility] Cardiovascular Services [address] [place] [place] [address] 12 Lead EKG 11/22/241945 MR#: [id number] Acct: [id number] Name: MARLI ROSALES Rep #: [id number] : 1935 88 From: Deshawn Bella MD Attending Dr: Dr. Wai Neal MD Status: ADM IN Ordering Dr: Teto Toscano Date: 11/22/24 Location: [facility] Sex: F C Admitted: 11/22/24 Test Reason [...] Abnormal ECG Confirmed by KOFI LE, ANTONIETA ([id number]), loan expeditor JOSE G ELIZABETH ([id number]) on 11/24/2024 8:22:34 AM Referred By: Joni Torres Confirmed By: ANTONIETA BELLA MD 11/24/24821 Date Deshawn Bella MD CC: ELSY Toscano; Dr. Joni Torres DO; Dr. Roma Grajeda DO; Dr. Wai Neal MD Signed Normal [facility] Basic Metabolic Profile (BMP )on 11-22-2024 BUN/CRE 22.0 RATIO High 10-20 [facility] Comment on above: Order Comment: 'TROP ' Serial specimen #1, #2 or #3: 1 Performed By: #### L 501.4020, L100.0100, L500.2500 #### [facility] [address] [place], [address] CA,Total 9.1 mg/dL Normal 8.5-10.1 [facility] Comment on above: Order Comment: 'TROP ' Serial specimen #1, #2 or #3: 1 Performed By: #### L 501.4020, L100.0100, L500.2500 #### [facility] [address] [place], [address] Chloride [Moles/Vol] 94 mmol/L Low 98-107 [facility] Comment on above: Order Comment: 'TROP ' Serial specimen #1, #2 or #3: 1 Performed By: #### L 501.4020, L100.0100, L500.2500 #### [facility] [address] [place], [address] CO2 [Moles/Vol] 25.0 mmol/L Normal 21.0-32.0 [facility] Comment on above: Order Comment: 'TROP ' Serial specimen #1, #2 or #3: 1 Performed By: #### L 501.4020, L100.0100, L500.2500 #### [facility] [address] [place], [address] Creatinine [Mass/Vol] 1.77 mg/dL High 0.55-1.02 [facility] Comment on above: Order Comment: 'TROP ' Serial specimen #1, #2 or #3: 1 Result Comment: The validity of the calculated GFR GFRAA in patients over 70 years has not been determined. Clinical correlation is essential. Performed By: #### L 501.4020, L100.0100, L500.2500 #### [facility] [address] [place], [address] EST GFR - AA 35 mL/min Low >60 [facility] Comment on above: Order Comment: 'TROP ' Serial specimen #1, #2 or #3: 1 Result Comment: Afri can Surinamese GFR Calc Performed By: #### L 501.4020, L100.0100, L500.2500 #### [facility] [address] [place], [address] GAP 8 Normal 5-15 [facility] Comment on above: Order Comment: 'TROP ' Serial specimen #1, #2 or #3: 1 Performed By: #### L 501.4020, L100.0100, L500.2500 #### [facility] [address] [place], [address] GFR/1.73 sq M.predicted among non-blacks MDRD (S/P/Bld) [Vol rate/Area] 29 mL/min/{1.73_m2} Low >60 [facility] Comment on above: Order Comment: 'TROP ' Serial specimen #1, #2 or #3: 1 Result Comment: Non- GFR Calc Performed By: #### L 501.4020, L100.0100, L500.2500 #### [facility] [address] [place], [address] Glucose [Mass/Vol] 122 mg/dL High 74-106 [facility] Comment on above: Order Comment: 'TROP ' Serial specimen #1, #2 or #3: 1 Result Comment: Fast ing Glucose result from 100 to 125 mg/dL suggests IMPAIRED HOMEOSTASIS per A.D.A. criteria. Performed By: #### L 501.4020, L100.0100, L500.2500 #### [facility] [address] [place], [address] Potassium [Moles/Vol] 5.1 mmol/L Normal 3.5-5.1 [facility] Comment on above: Order Comment: 'TROP ' Serial specimen #1, #2 or #3: 1 Performed By: #### L 501.4020, L100.0100, L500.2500 #### [facility] [address] [place], [address] Sodium [Moles/Vol] 128 mmol/L Low 136-145 [facility] Comment on above: Order Comment: 'TROP ' Serial specimen #1, #2 or #3: 1 Performed By: #### L 501.4020, L100.0100, L500.2500 #### [facility] [address] [place], [address] Urea nitrogen [Mass/Vol] 39 mg/dL High 7-18 [facility] Comment on above: Order Comment: 'TROP ' Serial specimen #1, #2 or #3: 1 Performed By: #### L 501.4020, L100.0100, L500.2500 #### [facility] [address] [place], [address] Brain/Head without Contrasto n 11-22-2024 Brain/Head without Contrast [facility] Imaging Services [address] [place], [place] [address] Brain/Head without Contrast MR#: [id number] Acct: [id number] Name: MARLI ROSALES Rep #: [id number] : 1935 F 88 From: Natalya Villa MD PCP: Dr. 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 Reading Location: [facility] CC: ELSY Toscano; Dr. Roma Grajeda DO [employer] Blind Worker: Signed Normal [facility] CBC W/Diff, Automatedon 11-08 Absolute Lymph 1.20 X10 3/uL Normal 0.83-4.51 [facility] Comment on above: Performed By: #### L 501.4020, L100.0100, L500.2500 #### [facility] [address] [place], [address] Absolute Neut 4.5 X10 3/uL Normal 2.0-7.7 [facility] Comment on above: Performed By: #### L 501.4020, L100.0100, L500.2500 #### [facility] [address] [place], [address] Basophils/100 WBC (Bld) 0.5 % Normal 0-1 [facility] Comment on above: Performed By: #### L 501.4020, L100.0100, L500.2500 #### [facility] Laboratory [address] [place], [address] Eosinophils/100 WBC (Bld) 3.0 % Normal 0-5 [facility] Comment on above: Performed By: #### L 501.4020, L100.0100, L500.2500 #### [facility] Laboratory [address] [place], [address] Erythrocyte distribution width (RBC) [Ratio] 14.2 % Normal 11.6-14.6 [facility] Comment on above: Performed By: #### L 501.4020, L100.0100, L500.2500 #### [facility] Laboratory [address] [place], [address] Hematocrit (Bld) [Volume fraction] 33.2 % Low 37-47 [facility] Comment on above: Performed By: #### L 501.4020, L100.0100, L500.2500 #### [facility] Laboratory [address] [place], [address] Hemoglobin (Bld) [Mass/Vol] 10.4 g/dL Low 12.0-15.0 [facility] Comment on above: Performed By: #### L 501.4020, L100.0100, L500.2500 #### [facility] Laboratory [address] [place], [address] IG% 0.300 Normal 0.0-0.9 [facility] Comment on above: Result Comment: IG% - Immature Granulocytes (promyelocytes, myelocytes and metamyelocytes) > 1% indicates that a LEFT SHIFT is Present. Performed By: #### L 501.4020, L100.0100, L500.2500 #### [facility] Laboratory [address] [place], [address] Lymphocytes/100 WBC (Bld) 18.0 % Low 19-41 [facility] Comment on above: Performed By: #### L 501.4020, L100.0100, L500.2500 #### [facility] Laboratory [address] [place], [address] MCH (RBC) [Entitic mass] 29.1 pg Normal 27.0-32.0 [facility] Comment on above: Performed By: #### L 501.4020, L100.0100, L500.2500 #### [facility] Laboratory [address] [place], [address] MCHC (RBC) [Mass/Vol] 31.3 g/dL Low 32-36 [facility] Comment on above: Performed By: #### L 501.4020, L100.0100, L500.2500 #### [facility] Laboratory [address] [place], [address] MCV (RBC) [Entitic vol] 92.7 fL Normal 81-99 [facility] Comment on above: Performed By: #### L 501.4020, L100.0100, L500.2500 #### [facility] Laboratory [address] [place], [address] Monocytes/100 WBC (Bld) 11.0 % High 0-10 [facility] Comment on above: Performed By: #### L 501.4020, L100.0100, L500.2500 #### [facility] Laboratory [address] [place], [address] Neutrophils/100 WBC (Bld) 67.2 % Normal 47-70 [facility] Comment on above: Performed By: #### L 501.4020, L100.0100, L500.2500 #### [facility] Laboratory [address] [place], [address] Nucleated RBC (Bld) [#/Vol] 0 10*3/uL Normal 0-5 [facility] Comment on above: Performed By: #### L 501.4020, L100.0100, L500.2500 #### [facility] Laboratory [address] [place], [address] Platelet mean volume (Bld) [Entitic vol] 8.9 fL Normal 6.2-12.0 [facility] Comment on above: Performed By: #### L 501.4020, L100.0100, L500.2500 #### [facility] Laboratory [address] [place], [address] Platelets (Bld) [#/Vol] 313 10*3/uL Normal 150-450 [facility] Comment on above: Performed By: #### L 501.4020, L100.0100, L500.2500 #### [facility] Laboratory [address] [place], [address] RBC (Bld) [#/Vol] 3.58 10*6/uL Low 4.2-5.4 [facility] Comment on above: Performed By: #### L 501.4020, L100.0100, L500.2500 #### [facility] Laboratory [address] [place], [address] RDW SD 48.1 fl High 35.1-43.9 [facility] Comment on above: Performed By: #### L 501.4020, L100.0100, L500.2500 #### [facility] Laboratory [address] [place], [address] WBC (Bld) [#/Vol] 6.7 10*3/uL Normal 4.4-11.0 [facility] Comment on above: Performed By: #### L 501.4020, L100.0100, L500.2500 #### [facility] Laboratory [address] [place], [address] Chest 1 View (Portable)on Chest 1 View (Portable) [facility] Imaging Services [address] [place] [address] Chest 1 View (Portable) MR#: [id number] Acct: [id number] Name: MARLI ROSALES Rep #: [id number] : 1935 F 88 From: Natalya Villa MD PCP: Dr. Roma Grajeda DO Status: PRE ER Study: Chest 1 View (Portable) Date of Exam: 11/22/24 Exam# [id number] Ordering Dr: Teto Toscano LOST CHARGE CARD CLERK-Izabel PROCEDURE: CHEST 1 VIEW (PORTABLE) REASON FOR [...] mild interstitial edema. Reading Location: [facility] CC: LOST CHARGE CARD CLERKKristina Toscano; Dr. Roma Grajeda DO Venetian Blind Worker: Signed Normal [facility] Emergency Department Summary on 11-22-2024 Emergency Department Summary [facility] Medical Records Department [address] [place] [address] Emergency Department Summary 11/22/24 MR#: [id number] Acct: [id number] Name: MARLI ROSALES Rep #: [id number] : 1935 88 From: Teto Toscano LOST CHARGE CARD CLERK-C PCP: Dr. Roma Grajeda, DO Status:ADM IN Location: [address] History of Present Illness Chief Complaint: Fall Narrative Narrative: Patient is an 88-year-old female with history of hypothyroidism, hypertension, chronic back pain was stimulator, who lives at assisted living at [facility] presenting to the [facility] apartment after mechanical fall. Per the patient over [...] She is currently on Bactrim for UTI. [facility] Medical History (Updated 11/22/24 @ 20:54 by [...] skeletal: Negat (more content not included)... Normal [facility] Folates, (Folic Acid)on 11-08 FOLATES 2.50 ng/mL Low 3.1-55.4 [facility] Comment on above: Order Comment: 'TROP ' Serial specimen #1, #2 or #3: 1 Performed By: #### L 501.4020, L100.0100, L500.2500 #### [facility] Laboratory [address] [facility] [place], [address] [facility] H&P Exam - Hospitalist [facility] Medical Records Department [address] [place] [address] H P Exam - Hospitalist 11/22/24 2108 MR#: [id number] Acct: [id number] Name: MARLI ROSALES Rep #: [id number] : 1935 88 From: Joni Torres DO PCP: Dr. Roma Grajeda, Status:ADM IN Location: [facility] [id number] [facility] - General General Date of Admission: 11/22/24 Date of [...] on oral Bactrim who now returns to [facility] ER complaining of another fall. 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 [facility] Medical History Irritable bowel syndrome Spinal stenosis [...] History cholecalcif (more content not included)... Normal [facility] L501.4020on 11-22-2024 TROPONIN-I HS 7 pg/mL Normal 3.0-54.0 [facility] Comment on above: Order Comment: 'TROP ' Serial specimen #1, #2 or #3: 1 Result Comment: Plea se Note: New Test Units and Gender Specific Reference Ranges. For more information see Policy Stat Procedure [place] High Sensitivity Troponin (TNIH) and attachments. Performed By: #### L 501.4020, L100.0100, L500.2500 #### [facility] Laboratory [address] [place], [address] M100.678on 11-22-2024 M100.678 SARS-CoV-2 (COVID 19) Negative INFLUENZA A Negative INFLUENZA B Negative RSV PCR Negative Normal [facility] Comment on above: Performed By: #### L 501.4020, L100.0100, L500.2500 #### [facility] Laboratory [address] [place], [address] Magnesiumon 11-22-2024 Magnesium [Mass/Vol] 2.6 mg/dL Normal 1.6-2.6 [facility] Comment on above: Performed By: #### L 500.2500, L100.0100 #### [facility] Laboratory [address] [place], [address] Thyroid Stim Hormone (TSH)on 11-22-2024 TSH 3.910 uIU/mL High 0.358-3.740 [facility] Comment on above: Order Comment: 'TROP ' Serial specimen #1, #2 or #3: 1 Performed By: #### L 501.4020, L100.0100, L500.2500 #### [facility] Laboratory [address] [place], [address] Urinalysis, Completeon 11-22 EPI,SQUAMOUS 50-100 SEEN Normal 5-10 [facility] Comment on above: Order Comment: 'TROP ' Serial specimen #1, #2 or #3: 1 Performed By: #### L 501.4020, L100.0100, L500.2500 #### [facility] Laboratory [address] [place], [address] RBC 0 SEEN Normal 0-5 [facility] Comment on above: Order Comment: 'TROP ' Serial specimen #1, #2 or #3: 1 Performed By: #### L 501.4020, L100.0100, L500.2500 #### [facility] Laboratory [address] [place], [address] BACTERIA 0 SEEN Normal None Seen [facility] Comment on above: Order Comment: 'TROP ' Serial specimen #1, #2 or #3: 1 Performed By: #### L 501.4020, L100.0100, L500.2500 #### [facility] Laboratory [address] [place], [address] Mucus Ql (Urine sed) 0 SEEN Normal [facility] Comment on above: Order Comment: 'TROP ' Serial specimen #1, #2 or #3: 1 Performed By: #### L 501.4020, L100.0100, L500.2500 #### [facility] Laboratory [address] [place], [address] WBC 0 SEEN Normal 0-5 [facility] Comment on above: Order Comment: 'TROP ' Serial specimen #1, #2 or #3: 1 Performed By: #### L 501.4020, L100.0100, L500.2500 #### [facility] Laboratory [address] [place], [address] Basic Metabolic Profile (BMP )on 08-21-2024 BUN Normal 7-18 [facility] Comment on above: Order Comment: 'TROP ' Serial specimen #1, #2 or #3: 1 Result Comment: [facility] DISCHARGED FROM FACILITY Performed By: #### L 501.4020, L100.0100, L500.2500 #### [facility] Laboratory [address] [place], [address] BUN/CRE Normal 10-20 [facility] Comment on above: Order Comment: 'TROP ' Serial specimen #1, #2 or #3: 1 Result Comment: [facility] DISCHARGED FROM FACILITY Performed By: #### L 501.4020, L100.0100, L500.2500 #### [facility] Laboratory [address] [place], [address] CA,Total Normal 8.5-10.1 [facility] Comment on above: Order Comment: 'TROP ' Serial specimen #1, #2 or #3: 1 Result Comment: [facility] DISCHARGED FROM FACILITY Performed By: #### L 501.4020, L100.0100, L500.2500 #### [facility] Laboratory [address] [place], [address] CL Normal 98-107 [facility] Comment on above: Order Comment: 'TROP ' Serial specimen #1, #2 or #3: 1 Result Comment: [facility] DISCHARGED FROM FACILITY Performed By: #### L 501.4020, L100.0100, L500.2500 #### [facility] Laboratory [address] [place], [address] CO2 Normal 21.0-32.0 [facility] Comment on above: Order Comment: 'TROP ' Serial specimen #1, #2 or #3: 1 Result Comment: [facility] DISCHARGED FROM FACILITY Performed By: #### L 501.4020, L100.0100, L500.2500 #### [facility] Laboratory [address] [place], [address] CREAT,SERUM Normal 0.55-1.02 [facility] Comment on above: Order Comment: 'TROP ' Serial specimen #1, #2 or #3: 1 Result Comment: [facility] DISCHARGED FROM FACILITY Performed By: #### L 501.4020, L100.0100, L500.2500 #### [facility] Laboratory [address] [place], [address] EST GFR Normal >60 [facility] Comment on above: Order Comment: 'TROP ' Serial specimen #1, #2 or #3: 1 Result Comment: [facility] DISCHARGED FROM FACILITY Performed By: #### L 501.4020, L100.0100, L500.2500 #### [facility] Laboratory [address] [place], [address] EST GFR - AA Normal >60 [facility] Comment on above: Order Comment: 'TROP ' Serial specimen #1, #2 or #3: 1 Result Comment: [facility] DISCHARGED FROM FACILITY Performed By: #### L 501.4020, L100.0100, L500.2500 #### [facility] Laboratory [address] [place], [address] GAP Normal 5-15 [facility] Comment on above: Order Comment: 'TROP ' Serial specimen #1, #2 or #3: 1 Result Comment: [facility] DISCHARGED FROM FACILITY Performed By: #### L 501.4020, L100.0100, L500.2500 #### [facility] Laboratory [address] [place], [address] GLU Normal 74-106 [facility] Comment on above: Order Comment: 'TROP ' Serial specimen #1, #2 or #3: 1 Result Comment: [facility] DISCHARGED FROM FACILITY Performed By: #### L 501.4020, L100.0100, L500.2500 #### [facility] Laboratory [address] [place], [address] Potassium Normal 3.5-5.1 [facility] Comment on above: Order Comment: 'TROP ' Serial specimen #1, #2 or #3: 1 Result Comment: [facility] DISCHARGED FROM FACILITY Performed By: #### L 501.4020, L100.0100, L500.2500 #### [facility] Laboratory [address] [place], [address] Basic Metabolic Profile (BMP) Normal 136-145 [facility] Comment on above: Order Comment: 'TROP ' Serial specimen #1, #2 or #3: 1 Result Comment: [facility] DISCHARGED FROM FACILITY Performed By: #### L 501.4020, L100.0100, L500.2500 #### [facility] Laboratory [address] [place], [address] CBC-Complete Blood Cnt No Di ffon 08-21-2024 HCT Normal 37-47 [facility] Comment on above: Order Comment: 'TROP ' Serial specimen #1, #2 or #3: 1 Result Comment: [facility] DISCHARGED FROM FACILITY Performed By: #### L 501.4020, L100.0100, L500.2500 #### [facility] Laboratory [address] [place], [address] HGB Normal 12.0-15.0 [facility] Comment on above: Order Comment: 'TROP ' Serial specimen #1, #2 or #3: 1 Result Comment: [facility] DISCHARGED FROM FACILITY Performed By: #### L 501.4020, L100.0100, L500.2500 #### [facility] Laboratory [address] [place], [address] MCH Normal 27.0-32.0 [facility] Comment on above: Order Comment: 'TROP ' Serial specimen #1, #2 or #3: 1 Result Comment: [facility] DISCHARGED FROM FACILITY Performed By: #### L 501.4020, L100.0100, L500.2500 #### [facility] Laboratory [address] [place], [address] MCHC Normal 32-36 [facility] Comment on above: Order Comment: 'TROP ' Serial specimen #1, #2 or #3: 1 Result Comment: [facility] DISCHARGED FROM FACILITY Performed By: #### L 501.4020, L100.0100, L500.2500 #### [facility] Laboratory [address] [place], [address] MCV Normal 81-99 [facility] Comment on above: Order Comment: 'TROP ' Serial specimen #1, #2 or #3: 1 Result Comment: [facility] DISCHARGED FROM FACILITY Performed By: #### L 501.4020, L100.0100, L500.2500 #### [facility] Laboratory [address] [place], [address] PLT Normal 150-450 [facility] Comment on above: Order Comment: 'TROP ' Serial specimen #1, #2 or #3: 1 Result Comment: [facility] DISCHARGED FROM FACILITY Performed By: #### L 501.4020, L100.0100, L500.2500 #### [facility] Laboratory [address] [place], [address] RBC Normal 4.2-5.4 [facility] Comment on above: Order Comment: 'TROP ' Serial specimen #1, #2 or #3: 1 Result Comment: [facility] DISCHARGED FROM FACILITY Performed By: #### L 501.4020, L100.0100, L500.2500 #### [facility] Laboratory [address] [place], [address] RDW CV Normal 11.6-14.6 [facility] Comment on above: Order Comment: 'TROP ' Serial specimen #1, #2 or #3: 1 Result Comment: [facility] DISCHARGED FROM FACILITY Performed By: #### L 501.4020, L100.0100, L500.2500 #### [facility] Laboratory [address] [place], [address] RDW SD Normal 35.1-43.9 [facility] Comment on above: Order Comment: 'TROP ' Serial specimen #1, #2 or #3: 1 Result Comment: [facility] E[facility] DISCHARGED FROM FACILITY Performed By: #### L 501.4020, L100.0100, L500.2500 #### [facility] Laboratory [address] [place], [address] WBC Normal 4.4-11.0 [facility] Comment on above: Order Comment: 'TROP ' Serial specimen #1, #2 or #3: 1 Result Comment: [facility] DISCHARGED FROM FACILITY Performed By: #### L 501.4020, L100.0100, L500.2500 #### [facility] Laboratory [address] [place], [address] Basic Metabolic Profile (BMP )on 07-22-2024 BUN/CRE 20.5 RATIO High - [facility] Comment on above: Order Comment: 'TROP ' Serial specimen #1, #2 or #3: 1 Performed By: #### L 501.4020, L100.0100, L500.2500 #### [facility] Laboratory [address] [place], [address] CA,Total 9.0 mg/dL Normal 8.5-10.1 [facility] Comment on above: Order Comment: 'TROP ' Serial specimen #1, #2 or #3: 1 Performed By: #### L 501.4020, L100.0100, L500.2500 #### [facility] Laboratory [address] [place], [address] Chloride [Moles/Vol] 106 mmol/L Normal 98-107 [facility] Comment on above: Order Comment: 'TROP ' Serial specimen #1, #2 or #3: 1 Performed By: #### L 501.4020, L100.0100, L500.2500 #### [facility] Laboratory [address] [place], [address] CO2 [Moles/Vol] 25.0 mmol/L Normal 21.0-32.0 [facility] Comment on above: Order Comment: 'TROP ' Serial specimen #1, #2 or #3: 1 Performed By: #### L 501.4020, L100.0100, L500.2500 #### [facility] Laboratory [address] [place], [address] Creatinine [Mass/Vol] 0.68 mg/dL Normal 0.55-1.02 [facility] Comment on above: Order Comment: 'TROP ' Serial specimen #1, #2 or #3: 1 Result Comment: The validity of the calculated GFR GFRAA in patients over 70 years has not been determined. Clinical correlation is essential. Performed By: #### L 501.4020, L100.0100, L500.2500 #### [facility] Laboratory [address] [place], [address] EST GFR - AA 104 mL/min Normal >60 [facility] Comment on above: Order Comment: 'TROP ' Serial specimen #1, #2 or #3: 1 Result Comment: Afri can [place] GFR Calc Performed By: #### L 501.4020, L100.0100, L500.2500 #### [facility] Laboratory [address] [place], [address] GAP 7 Normal 5-15 [facility] Comment on above: Order Comment: 'TROP ' Serial specimen #1, #2 or #3: 1 Performed By: #### L 501.4020, L100.0100, L500.2500 #### [facility] Laboratory [address] [place], [address] GFR/1.73 sq M.predicted among non-blacks MDRD (S/P/Bld) [Vol rate/Area] 86 mL/min/{1.73_m2} Normal >60 [facility] Comment on above: Order Comment: 'TROP ' Serial specimen #1, #2 or #3: 1 Result Comment: Non- GFR Calc Performed By: #### L 501.4020, L100.0100, L500.2500 #### [facility] [address] [place], [address] Glucose [Mass/Vol] 81 mg/dL Normal 74-106 [facility] Comment on above: Order Comment: 'TROP ' Serial specimen #1, #2 or #3: 1 Performed By: #### L 501.4020, L100.0100, L500.2500 #### [facility] [address] [place], [address] Potassium [Moles/Vol] 4.0 mmol/L Normal 3.5-5.1 [facility] Comment on above: Order Comment: 'TROP ' Serial specimen #1, #2 or #3: 1 Performed By: #### L 501.4020, L100.0100, L500.2500 #### [facility] [address] [place], [address] Sodium [Moles/Vol] 138 mmol/L Normal 136-145 [facility] Comment on above: Order Comment: 'TROP ' Serial specimen #1, #2 or #3: 1 Performed By: #### L 501.4020, L100.0100, L500.2500 #### [facility] [address] [place], [address] Urea nitrogen [Mass/Vol] 14 mg/dL Normal 7-18 [facility] Comment on above: Order Comment: 'TROP ' Serial specimen #1, #2 or #3: 1 Performed By: #### L 501.4020, L100.0100, L500.2500 #### [facility] [address] [place], [address] CBC-Complete Blood Cnt No Di ffon 07-22-2024 Erythrocyte distribution width (RBC) [Ratio] 13.2 % Normal 11.6-14.6 [facility] Comment on above: Order Comment: 'TROP ' Serial specimen #1, #2 or #3: 1 Performed By: #### L 501.4020, L100.0100, L500.2500 #### [facility] [address] [place], [address] Hematocrit (Bld) [Volume fraction] 29.7 % Low 37-47 [facility] Comment on above: Order Comment: 'TROP ' Serial specimen #1, #2 or #3: 1 Performed By: #### L 501.4020, L100.0100, L500.2500 #### [facility] [address] [place], [address] Hemoglobin (Bld) [Mass/Vol] 9.6 g/dL Low 12.0-15.0 [facility] Comment on above: Order Comment: 'TROP ' Serial specimen #1, #2 or #3: 1 Performed By: #### L 501.4020, L100.0100, L500.2500 #### [facility] [address] [place], [address] MCH (RBC) [Entitic mass] 29.7 pg Normal 27.0-32.0 [facility] Comment on above: Order Comment: 'TROP ' Serial specimen #1, #2 or #3: 1 Performed By: #### L 501.4020, L100.0100, L500.2500 #### [facility] [address] [place], [address] MCHC (RBC) [Mass/Vol] 32.3 g/dL Normal 32-36 [facility] Comment on above: Order Comment: 'TROP ' Serial specimen #1, #2 or #3: 1 Performed By: #### L 501.4020, L100.0100, L500.2500 #### [facility] [address] [place], [address] MCV (RBC) [Entitic vol] 92.0 fL Normal 81-99 [facility] Comment on above: Order Comment: 'TROP ' Serial specimen #1, #2 or #3: 1 Performed By: #### L 501.4020, L100.0100, L500.2500 #### [facility] [address] [place], [address] Platelet mean volume (Bld) [Entitic vol] 8.7 fL Normal 6.2-12.0 [facility] Comment on above: Order Comment: 'TROP ' Serial specimen #1, #2 or #3: 1 Performed By: #### L 501.4020, L100.0100, L500.2500 #### [facility] [address] [place], [address] Platelets (Bld) [#/Vol] 312 10*3/uL Normal 150-450 [facility] Comment on above: Order Comment: 'TROP ' Serial specimen #1, #2 or #3: 1 Performed By: #### L 501.4020, L100.0100, L500.2500 #### [facility] [address] [place], [address] RBC (Bld) [#/Vol] 3.23 10*6/uL Low 4.2-5.4 [facility] Comment on above: Order Comment: 'TROP ' Serial specimen #1, #2 or #3: 1 Performed By: #### L 501.4020, L100.0100, L500.2500 #### [facility] [address] [place], [address] RDW SD 44.4 fl High 35.1-43.9 [facility] Comment on above: Order Comment: 'TROP ' Serial specimen #1, #2 or #3: 1 Performed By: #### L [id number], L100.0100, L500.2500 #### [facility] [address] [place], [address] WBC (Bld) [#/Vol] 6.1 10*3/uL Normal 4.4-11.0 [facility] Comment on above: Order Comment: 'TROP ' Serial specimen #1, #2 or #3: 1 Performed By: #### L [id number], L100.0100, L500.2500 #### [facility] [address] [place], [address] Absolute lymphocyte countOrd ered By: Roma Grajeda on 01-31-2024 Lymphocytes Auto (Unsp spec) [#/Vol] 1.10 10*3/uL 0.83-4.51 [facility] Automated lymphocyte count a s percentage of total leukocytesOrdered By: Roma Grajeda on 01-31-2024 Lymphocytes/100 WBC Auto (Unsp spec) 16.1 % 19-41 [facility] Basophil percentageOrdered B y: Roma Grajeda on 01-31-2024 Basophils/100 WBC (Bld) 0.7 % 0-1 [facility] Bilirubin [Mass/Vol] 0.40 mg/dL 0.20-1.00 [facility] Comment on above: For patients on eltr ombopag therapy, use of Dimension [place] TBIL is not recommended. Chloride [Moles/Vol] 102 mmol/L 98-107 [facility] Eosinophils/100 WBC (Bld) 2.3 % 0-5 [facility] Glucose [Mass/Vol] 82 mg/dL 74-106 [facility] Hemoglobin (Bld) [Mass/Vol] 11.1 g/dL 12.0-15.0 [facility] Monocytes/100 WBC (Bld) 7.9 % 0-10 [facility] Neutrophils (Bld) [#/Vol] 5.0 10*3/uL 2.0-7.7 [facility] Neutrophils/100 WBC (Bld) 72.9 % 47-70 [facility] Potassium [Moles/Vol] 4.7 mmol/L 3.5-5.1 [facility] Protein [Mass/Vol] 7.3 g/dL 6.4-8.2 [facility] Sodium [Moles/Vol] 134 mmol/L 136-145 [facility] WBC (Bld) [#/Vol] 6.9 10*3/uL 4.4-11.0 [facility] Culture, urineOrdered By: Ursula Grajeda on 01-31-2024 Bacteria identified Cx Nom (U) Presumptive E. coli [facility] Determination of erythrocyte mean corpuscular volume (MCV)Ordered By: Roma Grajeda on 01-31-2024 MCV (RBC) [Entitic vol] 96.2 fL 81-99 [facility] Erythrocyte distribution wid th ratioOrdered By: Roma Grajeda on 01-31-2024 Erythrocyte distribution width (RBC) [Ratio] 12.7 % 11.6-14.6 [facility] Erythrocyte distribution wid th standard deviationOrdered By: Roma Grajeda on 01-31-2024 Erythrocyte distribution width (RBC) [Entitic vol] 45.2 fL 35.1-43.9 [facility] Hematocrit Auto (Bld) [Volum e fraction]Ordered By: Roma Grajeda on 01-31-2024 Hematocrit (Bld) [Volume fraction] 35.9 % 37-47 [facility] Immature granulocytes/100 WB C Auto (Bld)Ordered By: Roma Grajeda on 01-31-2024 Immature granulocytes/100 WBC (Bld) 0.100 % 0.0-0.9 [facility] Comment on above: IG% - Immature Granu locytes (promyelocytes, myelocytes and metamyelocytes) > 1% indicates that a LEFT SHIFT is Present. Laboratory - Chemistry and C hemistry - challengeOrdered By: Roma Grajeda on 01-31-2024 Albumin/Globulin [Mass ratio] 1.0 {ratio} 0.9-2.4 [facility] ALP [Catalytic activity/Vol] 81 U/L 45-117 [facility] ALT [Catalytic activity/Vol] 21 U/L 13-56 [facility] CO2 [Moles/Vol] 24.0 mmol/L 21.0-32.0 [facility] Globulin (S) [Mass/Vol] 3.7 g/dL 2.2-4.2 [facility] Urea nitrogen/Creatinine [Mass ratio] 18.6 mg/mg 10-20 [facility] Laboratory - Hematology and Cell countsOrdered By: Roma Grajeda on 01-31-2024 MCH (RBC) [Entitic mass] 29.8 pg 27.0-32.0 [facility] MCHC (RBC) [Mass/Vol] 30.9 g/dL 32-36 [facility] Nucleated RBC/100 WBC (Bld) [Ratio] 0 % 0-5 [facility] Platelet mean volume (Bld) [Entitic vol] 9.6 fL 6.2-12.0 [facility] Platelets (Bld) [#/Vol] 314 10*3/uL 150-450 [facility] No Panel InformationOrdered By: Roma Grajeda on 01-31-2024 Estimated GFR (MDRD) Amer 66 mL/min >60 [facility] Comment on above: GFR Calc Estimated GFR (MDRD) Non-Af Amer 55 mL/min >60 [facility] Comment on above: Non- GFR Calc Free Triiodothyronine (T3) pg/dL 2.8 pg/mL 2.18-3.98 [facility] RBC Auto (Bld) [#/Vol]Ordere d By: Roma Grajeda on 01-31-2024 RBC (Bld) [#/Vol] 3.73 10*6/uL 4.2-5.4 [facility] Serum or plasma calcium rosa isela urement (mass/volume)Ordered By: Roma Grajeda on 01-31-2024 Calcium [Mass/Vol] 9.5 mg/dL 8.5-10.1 [facility] Serum or plasma creatinine m easurement (mass/volume)Ordered By: Roma Grajeda on 01-31-2024 Creatinine [Mass/Vol] 1.02 mg/dL 0.55-1.02 [facility] Comment on above: The validity of the calculated GFR & GFRAA in patients over 70 years has not been determined. Clinical correlation is essential. Serum or plasma thyroid stim ulating hormone (TSH) measurement (units/volume)Ordered By: Roma Grajeda on 01-31-2024 TSH Qn 0.82 uIU/mL 0.358-3.74 [facility] Serum or plasma urea nitroge n measurement (mass/volume)Ordered By: Roma Grajeda on 01-31-2024 Urea nitrogen [Mass/Vol] 19 mg/dL 7-18 [facility] Thin prep Papanicolaou smear with manual screeningOrdered By: Roma Grajeda on 01-31-2024 Thin prep Papanicolaou smear with manual screening 3.6 g/dL 3.2-5.0 [facility] Thin prep Papanicolaou smear with manual screening 20 U/L 15-37 [facility] Thin prep Papanicolaou smear with manual screening 8 5-15 [facility] Thin prep Papanicolaou smear with manual screening 1.29 ng/dL 0.76-1.46 [facility] Absolute lymphocyte countOrd ered By: Whitney Gusman on 10-12-2023 Lymphocytes Auto (Unsp spec) [#/Vol] 0.98 10*3/uL 0.83-4.51 [facility] Basophil percentageOrdered B y: Whitney Uzma on 10-12-2023 Basophils/100 WBC (Bld) 0.9 % 0-1 [facility] Bilirubin [Mass/Vol] 0.50 mg/dL 0.20-1.00 [facility] Comment on above: For patients on eltr ombopag therapy, use of Dimension [place] TBIL is not recommended. Chloride [Moles/Vol] 109 mmol/L 98-107 [facility] Eosinophils/100 WBC (Bld) 3.3 % 0-5 [facility] Glucose [Mass/Vol] 95 mg/dL 74-106 [facility] Neutrophils (Bld) [#/Vol] 2.8 10*3/uL 2.0-7.7 [facility] Neutrophils/100 WBC (Bld) 60.3 % 47-70 [facility] Potassium [Moles/Vol] 4.1 mmol/L 3.5-5.1 [facility] Protein [Mass/Vol] 6.8 g/dL 6.4-8.2 [facility] Sodium [Moles/Vol] 139 mmol/L 136-145 [facility] WBC (Bld) [#/Vol] 4.6 10*3/uL 4.4-11.0 [facility] Blood erythrocytes count (nu mber/volume)Ordered By: Whitney Gusman on 10-12-2023 RBC (Bld) [#/Vol] 3.70 10*6/uL 4.2-5.4 [facility] Blood hemoglobin measurement (mass/volume)Ordered By: Whitney Gusman on 10-12-2023 Hemoglobin (Bld) [Mass/Vol] 11.3 g/dL 12.0-15.0 [facility] Blood lymphocytes/100 leukoc ytesOrdered By: hWitney Gusman on 10-12-2023 Lymphocytes/100 WBC (Bld) 21.5 % 19-41 [facility] Blood monocytes/100 leukocyt esOrdered By: Whitney Gusman on 10-12-2023 Monocytes/100 WBC (Bld) 13.6 % 0-10 [facility] Blood platelet mean volumeOr dered By: Whitney Gusman on 10-12-2023 Platelet mean volume (Bld) [Entitic vol] 9.3 fL 6.2-12.0 [facility] COVID-19 virus antigen assay Ordered By: Kiel Son on 10-12-2023 SARS-CoV-2 (COVID-19) Ag IA.rapid Ql (Resp) [facility] SARS-CoV-2 (COVID-19) Ag IA.rapid Ql (Resp) [facility] Determination of erythrocyte mean corpuscular volume (MCV)Ordered By: Whitney Gusman on 10-12-2023 MCV (RBC) [Entitic vol] 98.9 fL 81-99 [facility] Hematocrit Auto (Bld) [Volum e fraction]Ordered By: Whitney Gusman on 10-12-2023 Hematocrit (Bld) [Volume fraction] 36.6 % 37-47 [facility] Laboratory - Chemistry and C hemistry - challengeOrdered By: Whitney Gusman on 10-12-2023 ALP [Catalytic activity/Vol] 74 U/L 45-117 [facility] ALT [Catalytic activity/Vol] 14 U/L 13-56 [facility] CO2 [Moles/Vol] 24.0 mmol/L 21.0-32.0 [facility] Globulin (S) [Mass/Vol] 3.5 g/dL 2.2-4.2 [facility] Urea nitrogen/Creatinine [Mass ratio] 26.4 mg/mg 10-20 [facility] - Hematology and Cell countsOrdered By: Whitney Gusman on 10-12-2023 Erythrocyte distribution width (RBC) [Entitic vol] 45.4 fL 35.1-43.9 [facility] Erythrocyte distribution width (RBC) [Ratio] 12.6 % 11.6-14.6 [facility] Immature granulocytes/100 WBC (Bld) 0.400 % 0.0-0.9 [facility] Comment on above: IG% - Immature Granu locytes (promyelocytes, myelocytes and metamyelocytes) > 1% indicates that a LEFT SHIFT is Present. MCH (RBC) [Entitic mass] 30.5 pg 27.0-32.0 [facility] Nucleated RBC/100 WBC (Bld) [Ratio] 0 % 0-5 [facility] MCHC Auto (RBC) [Mass/Vol]Or dered By: Whitney Gusman on 10-12-2023 MCHC (RBC) [Mass/Vol] 30.9 g/dL 32-36 [facility] No Panel InformationOrdered By: Whitney Gusman on 10-12-2023 Estimated Creatinine Clearance Calc 47.90 ml/min [facility] Estimated GFR (MDRD) Amer 79 mL/min >60 [facility] Comment on above: GFR Calc Estimated GFR (MDRD) Non-Af Amer 65 mL/min >60 [facility] Comment on above: Non- GFR Calc Platelets bldOrdered By: Shannan Gusman on 10-12-2023 Platelets (Bld) [#/Vol] 271 10*3/uL 150-450 [facility] Serum or plasma albumin rosa isela urement (mass/volume)Ordered By: Whitney Uzma on 10-12-2023 Albumin [Mass/Vol] 3.3 g/dL 3.2-5.0 [facility] Serum or plasma albumin/glob ulin mass ratioOrdered By: Whitney Uzma on 10-12-2023 Albumin/Globulin [Mass ratio] 0.9 {ratio} 0.9-2.4 [facility] Serum or plasma calcium rosa isela urement (mass/volume)Ordered By: Whitney Uzma on 10-12-2023 Calcium [Mass/Vol] 9.0 mg/dL 8.5-10.1 [facility] Serum or plasma creatinine m easurement (mass/volume)Ordered By: Whitney Uzma on 10-12-2023 Creatinine [Mass/Vol] 0.87 mg/dL 0.55-1.02 [facility] Comment on above: The validity of the calculated GFR & GFRAA in patients over 70 years has not been determined. Clinical correlation is essential. Serum or plasma urea nitroge n measurement (mass/volume)Ordered By: Whitney Foyycoasta on 10-12-2023 Urea nitrogen [Mass/Vol] 23 mg/dL 7-18 [facility] Thin prep Papanicolaou smear with manual screeningOrdered By: Whitney Uzma on 10-12-2023 Thin prep Papanicolaou smear with manual screening 17 U/L 15-37 [facility] Thin prep Papanicolaou smear with manual screening 6 5-15 [facility] Basophil percentageOrdered B y: Whitney Uzma on 10-05-2023 Basophil percentage 4.2 mg/dL 2.5-4.9 [facility] Laboratory - Chemistry and C hemistry - challengeOrdered By: Whitney Uzma on 10-05-2023 Magnesium [Mass/Vol] 2.2 mg/dL 1.6-2.6 [facility] Absolute lymphocyte countOrd ered By: Patricio Franz on 10-04-2023 Lymphocytes Auto (Unsp spec) [#/Vol] 1.31 10*3/uL 0.83-4.51 [facility] Basophil percentageOrdered B y: Patricio Franz on 10-04-2023 Basophils/100 WBC (Bld) 1.0 % 0-1 [facility] Chloride [Moles/Vol] 107 mmol/L 98-107 [facility] Eosinophils/100 WBC (Bld) 4.1 % 0-5 [facility] Glucose [Mass/Vol] 82 mg/dL 74-106 [facility] Neutrophils (Bld) [#/Vol] 2.9 10*3/uL 2.0-7.7 [facility] Neutrophils/100 WBC (Bld) 59.5 % 47-70 [facility] Potassium [Moles/Vol] 3.8 mmol/L 3.5-5.1 [facility] Sodium [Moles/Vol] 138 mmol/L 136-145 [facility] WBC (Bld) [#/Vol] 4.9 10*3/uL 4.4-11.0 [facility] Blood erythrocytes count (nu mber/volume)Ordered By: Patricio Franz on 10-04-2023 RBC (Bld) [#/Vol] 3.93 10*6/uL 4.2-5.4 [facility] Blood hemoglobin measurement (mass/volume)Ordered By: Patricio Franz on 10-04-2023 Hemoglobin (Bld) [Mass/Vol] 12.2 g/dL 12.0-15.0 [facility] Blood lymphocytes/100 leukoc ytesOrdered By: Patricio Franz on 10-04-2023 Lymphocytes/100 WBC (Bld) 26.8 % 19-41 [facility] Blood monocytes/100 leukocyt esOrdered By: Patricio Franz on 10-04-2023 Monocytes/100 WBC (Bld) 8.2 % 0-10 [facility] Blood platelet mean volumeOr dered By: Patricio Franz on 10-04-2023 Platelet mean volume (Bld) [Entitic vol] 8.9 fL 6.2-12.0 [facility] Determination of erythrocyte mean corpuscular volume (MCV)Ordered By: Patricio Franz on 10-04-2023 MCV (RBC) [Entitic vol] 101.8 fL 81-99 [facility] Hematocrit Auto (Bld) [Volum e fraction]Ordered By: Patricio Franz on 10-04-2023 Hematocrit (Bld) [Volume fraction] 40.0 % 37-47 [facility] Laboratory - Chemistry and C hemistry - challengeOrdered By: Patricio Franz on 10-04-2023 CO2 [Moles/Vol] 29.0 mmol/L 21.0-32.0 [facility] Urea nitrogen/Creatinine [Mass ratio] 23.3 mg/mg 10-20 [facility] - Hematology and Cell countsOrdered By: Patricio Franz on 10-04-2023 Erythrocyte distribution width (RBC) [Entitic vol] 48.3 fL 35.1-43.9 [facility] Erythrocyte distribution width (RBC) [Ratio] 12.9 % 11.6-14.6 [facility] Immature granulocytes/100 WBC (Bld) 0.400 % 0.0-0.9 [facility] Comment on above: IG% - Immature Granu locytes (promyelocytes, myelocytes and metamyelocytes) > 1% indicates that a LEFT SHIFT is Present. MCH (RBC) [Entitic mass] 31.0 pg 27.0-32.0 [facility] Nucleated RBC/100 WBC (Bld) [Ratio] 0 % 0-5 [facility] MCHC Auto (RBC) [Mass/Vol]Or dered By: Patricio Franz on 10-04-2023 MCHC (RBC) [Mass/Vol] 30.5 g/dL 32-36 [facility] No Panel InformationOrdered By: Patricio Franz on 10-04-2023 Estimated Creatinine Clearance Calc 42.78 ml/min [facility] Estimated GFR (MDRD) Amer 97 mL/min >60 [facility] Comment on above: GFR Calc Estimated GFR (MDRD) Non-Af Amer 80 mL/min >60 [facility] Comment on above: Non- GFR Calc Platelets bldOrdered By: Kermit Franz on 10-04-2023 Platelets (Bld) [#/Vol] 287 10*3/uL 150-450 [facility] Serum or plasma calcium rosa isela urement (mass/volume)Ordered By: Patricio Franz on 10-04-2023 Calcium [Mass/Vol] 9.4 mg/dL 8.5-10.1 [facility] Serum or plasma creatinine m easurement (mass/volume)Ordered By: Patricio Franz on 10-04-2023 Creatinine [Mass/Vol] 0.73 mg/dL 0.55-1.02 [facility] Comment on above: The validity of the calculated GFR & GFRAA in patients over 70 years has not been determined. Clinical correlation is essential. Serum or plasma urea nitroge n measurement (mass/volume)Ordered By: Patricio Franz on 10-04-2023 Urea nitrogen [Mass/Vol] 17 mg/dL 7-18 [facility] Thin prep Papanicolaou smear with manual screeningOrdered By: Patricio Franz on 10-04-2023 Thin prep Papanicolaou smear with manual screening 2 5-15 [facility] Basophil percentageOrdered B y: Joni An on 09-29-2023 Basophil percentage 2.9 mg/dL 2.5-4.9 [facility] Bilirubin [Mass/Vol] 0.50 mg/dL 0.20-1.00 [facility] Comment on above: For patients on eltr ombopag therapy, use of Dimension [place] TBIL is not recommended. Protein [Mass/Vol] 6.5 g/dL 6.4-8.2 [facility] Laboratory - Chemistry and C hemistry - challengeOrdered By: Joni An on 09-29-2023 ALP [Catalytic activity/Vol] 77 U/L 45-117 [facility] ALT [Catalytic activity/Vol] 14 U/L 13-56 [facility] Globulin (S) [Mass/Vol] 3.5 g/dL 2.2-4.2 [facility] Magnesium [Mass/Vol] 2.2 mg/dL 1.6-2.6 [facility] No Panel InformationOrdered By: Joni An on 09-29-2023 Thyroid Stimulating Hormone (TSH) 3.10 uIU/mL 0.358-3.74 [facility] Serum or plasma albumin rosa isela urement (mass/volume)Ordered By: Joni An on 09-29-2023 Albumin [Mass/Vol] 3.0 g/dL 3.2-5.0 [facility] Serum or plasma albumin/glob ulin mass ratioOrdered By: Joni An on 09-29-2023 Albumin/Globulin [Mass ratio] 0.9 {ratio} 0.9-2.4 [facility] Thin prep Papanicolaou smear with manual screeningOrdered By: Joni An on 09-29-2023 Thin prep Papanicolaou smear with manual screening 15 U/L 15-37 [facility] Basophil percentageOrdered B y: Nelson Holman on 09-28-2023 Basophil percentage 0-5 SEEN /hpf 0-5 [facility] Bilirubin Test strip Ql (U)O rdered By: Nelson Holmna on 09-28-2023 Bilirubin Ql (U) Negative Negative [facility] Ketones Test strip Ql (U)Ord ered By: Nelson Holman on 09-28-2023 Ketones Ql (U) Negative Negative [facility] Mucus LM Ql (Urine sed)Order ed By: Nelson Holman on 09-28-2023 Mucus Ql (Urine sed) 0 SEEN /hpf [facility] Nitrite Test strip Ql (U)Ord ered By: Nelson Holman on 09-28-2023 Nitrite Ql (U) Negative Negative [facility] No Panel InformationOrdered By: Nelson Holman on 09-28-2023 Troponin I High Sensitivity 10 pg/mL 3.0-54.0 [facility] Comment on above: Please Note: New Latha t Units and Gender Specific Reference Ranges. For more information see Policy Stat Procedure [place] High Sensitivity Troponin (TNIH) and attachments. Protein Test strip Ql (U)Ord ered By: Nelson Holman on 09-28-2023 Protein Ql (U) Negative Negative [facility] Squamous epithelial cells de tection in urine sediment by light microscopyOrdered By: Nelson Holman on 09-28-2023 Epithelial cells.squamous LM Ql (Urine sed) 0 SEEN /hpf 5-10 [facility] Urine blood detectionOrdered By: Nelson Holman on 09-28-2023 RBC Ql (U) 10 /ul Negative [facility] RBC Ql (U) 0 SEEN /hpf 0-5 [facility] Urine clarityOrdered By: Timbo Holman on 09-28-2023 Clarity (U) Clear Clear [facility] Urine color determinationOrd ered By: Nelson Holman on 09-28-2023 Color (U) Yellow Yellow [facility] Urine glucose detectionOrder ed By: Nelson Holman on 09-28-2023 Glucose Ql (U) Normal mg/dl Normal [facility] Urine leukocyte esterase det ection by dipstickOrdered By: Nelson Holman on 09-28-2023 Leukocyte esterase Test strip Ql (U) 100 /ul Negative [facility] Urine pHOrdered By: Nelson ponce on 09-28-2023 pH (U) 8.0 [pH] 5.0 - 8.0 [facility] Urine sediment bacteria coun t by microscopy (number/high power field)Ordered By: Nelson Holman on 09-28-2023 Bacteria LM.HPF (Urine sed) [#/Area] 2 /[HPF] None Seen [facility] Urine specific gravity measu rementOrdered By: Nelson Holman on 09-28-2023 Specific gravity (U) [Rel density] 1.010 1.002-1.030 [facility] Urobilinogen Auto test strip Ql (U)Ordered By: Nelson Holman on 09-28-2023 Urobilinogen Ql (U) Normal mg/dl Normal [facility] Culture, urineOrdered By: Ursula Grajeda on 09-24-2023 Bacteria identified Cx Nom (U) Presumptive E. coli [facility] Culture, urineOrdered By: Chun Sanchez on 07-14-2023 Bacteria identified Cx Nom (U) Escherichia coli [facility] Culture, urineOrdered By: Chun Sanchez on 07-13-2023 Bacteria identified Cx Nom (U) Escherichia coli [facility] Culture, urineOrdered By: Ursula Grajeda on 05-28-2023 Bacteria identified Cx Nom (U) Presumptive E. coli [facility] Culture, urineOrdered By: Dr Taylor Grajeda on 02-07-2023 Bacteria identified Cx Nom (U) Presumptive E. coli [facility] Culture, urineOrdered By: Ursula Grajeda on 02-05-2023 Bacteria identified Cx Nom (U) Presumptive E. coli [facility] Basophil percentageOrdered B y: Dr. Sanchez on 12-14-2022 Chloride [Moles/Vol] 105 mmol/L 98-107 [facility] Glucose [Mass/Vol] 116 mg/dL 74-106 [facility] Comment on above: Fasting Glucose resu lt from 100 to 125 mg/dL suggests IMPAIRED HOMEOSTASIS per A.D.A. criteria. Potassium [Moles/Vol] 4.0 mmol/L 3.5-5.1 [facility] Sodium [Moles/Vol] 139 mmol/L 136-145 [facility] Laboratory - Chemistry and C hemistry - challengeOrdered By: Dr. Sanchez on 12-14-2022 CO2 [Moles/Vol] 23.0 mmol/L 21.0-32.0 [facility] Urea nitrogen/Creatinine [Mass ratio] 18.6 mg/mg 10-20 [facility] No Panel InformationOrdered By: Dr. Sanchez on 12-14-2022 Estimated GFR (MDRD) Amer 56 mL/min >60 [facility] Comment on above: GFR Calc Estimated GFR (MDRD) Non-Af Amer 46 mL/min >60 [facility] Comment on above: Non- GFR Calc Serum or plasma calcium rosa isela urement (mass/volume)Ordered By: Dr. Sanchez on 12-14-2022 Calcium [Mass/Vol] 9.6 mg/dL 8.5-10.1 [facility] Serum or plasma creatinine m easurement (mass/volume)Ordered By: Dr. Sanchez on 12-14-2022 Creatinine [Mass/Vol] 1.18 mg/dL 0.55-1.02 [facility] Comment on above: The validity of the calculated GFR & GFRAA in patients over 70 years has not been determined. Clinical correlation is essential. Serum or plasma urea nitroge n measurement (mass/volume)Ordered By: Dr. Sancehz on 12-14-2022 Urea nitrogen [Mass/Vol] 22 mg/dL 7-18 [facility] Thin prep Papanicolaou smear with manual screeningOrdered By: Dr. Sanchez on 12-14-2022 Thin prep Papanicolaou smear with manual screening 11 5-15 [facility] Culture, urineOrdered By: Li Melvin on 12-11-2022 Bacteria identified Cx Nom (U) Presumptive E. coli [facility] Bacteria identified Cx Nom (U) Enterococcus faecalis [facility] Absolute lymphocyte countOrd ered By: Dr. Khan on 12-10-2022 Lymphocytes Auto (Unsp spec) [#/Vol] 0.44 10*3/uL 0.83-4.51 [facility] Basophil percentageOrdered B y: Dr. Khan on 12-10-2022 Basophils/100 WBC (Bld) 0.5 % 0-1 [facility] Chloride [Moles/Vol] 107 mmol/L 98-107 [facility] Eosinophils/100 WBC (Bld) 7.7 % 0-5 [facility] Glucose [Mass/Vol] 93 mg/dL 74-106 [facility] Neutrophils (Bld) [#/Vol] 3.2 10*3/uL 2.0-7.7 [facility] Neutrophils/100 WBC (Bld) 73.1 % 47-70 [facility] Potassium [Moles/Vol] 3.1 mmol/L 3.5-5.1 [facility] Sodium [Moles/Vol] 137 mmol/L 136-145 [facility] WBC (Bld) [#/Vol] 4.4 10*3/uL 4.4-11.0 [facility] Blood erythrocytes count (nu mber/volume)Ordered By: Dr. Khan on 12-10-2022 RBC (Bld) [#/Vol] 3.38 10*6/uL 4.2-5.4 [facility] Blood hemoglobin measurement (mass/volume)Ordered By: Dr. Khan on 12-10-2022 Hemoglobin (Bld) [Mass/Vol] 10.2 g/dL 12.0-15.0 [facility] Blood lymphocytes/100 leukoc ytesOrdered By: Dr. Khan on 12-10-2022 Lymphocytes/100 WBC (Bld) 9.9 % 19-41 [facility] Blood manual differential co mment interpretation (narrative result)Ordered By: Dr. Khan on 12-10-2022 Manual differential comment Mode (Bld) [Interp] SCANNED [facility] Blood monocytes/100 leukocyt esOrdered By: Dr[address] Khan on 12-10-2022 Monocytes/100 WBC (Bld) 8.6 % 0-10 [facility] Blood platelet mean volumeOr dered By: Dr. Khan on 12-10-2022 Platelet mean volume (Bld) [Entitic vol] 9.4 fL 6.2-12.0 [facility] Determination of erythrocyte mean corpuscular volume (MCV)Ordered By: Dr. Khan on 12-10-2022 MCV (RBC) [Entitic vol] 93.8 fL 81-99 [facility] Hematocrit Auto (Bld) [Volum e fraction]Ordered By: Dr. Khan on 12-10-2022 Hematocrit (Bld) [Volume fraction] 31.7 % 37-47 [facility] Laboratory - Chemistry and C hemistry - challengeOrdered By: Dr. Khan on 12-10-2022 CO2 [Moles/Vol] 24.0 mmol/L 21.0-32.0 [facility] Urea nitrogen/Creatinine [Mass ratio] 13.1 mg/mg 10-20 [facility] Laboratory - Hematology and Cell countsOrdered By: Dr. Khan on 12-10-2022 Erythrocyte distribution width (RBC) [Entitic vol] 43.7 fL 35.1-43.9 [facility] Erythrocyte distribution width (RBC) [Ratio] 12.7 % 11.6-14.6 [facility] Immature granulocytes/100 WBC (Bld) 0.200 % 0.0-0.9 [facility] Comment on above: IG% - Immature Granu locytes (promyelocytes, myelocytes and metamyelocytes) > 1% indicates that a LEFT SHIFT is Present. MCH (RBC) [Entitic mass] 30.2 pg 27.0-32.0 [facility] Nucleated RBC/100 WBC (Bld) [Ratio] 0 % 0-5 [facility] MCHC Auto (RBC) [Mass/Vol]Or dered By: Dr. Khan on 12-10-2022 MCHC (RBC) [Mass/Vol] 32.2 g/dL 32-36 [facility] No Panel InformationOrdered By: Dr. Khan on 12-10-2022 Estimated Creatinine Clearance Calc 43.06 ml/min [facility] Estimated GFR (MDRD) Amer 105 mL/min >60 [facility] Comment on above: GFR Calc Estimated GFR (MDRD) Non-Af Amer 87 mL/min >60 [facility] Comment on above: Non- GFR Calc Platelets bldOrdered By: Dr. Khan on 12-10-2022 Platelets (Bld) [#/Vol] 228 10*3/uL 150-450 [facility] Serum or plasma calcium rosa isela urement (mass/volume)Ordered By: Dr. Khan on 12-10-2022 Calcium [Mass/Vol] 8.7 mg/dL 8.5-10.1 [facility] Serum or plasma creatinine m easurement (mass/volume)Ordered By: Dr. Khan on 12-10-2022 Creatinine [Mass/Vol] 0.68 mg/dL 0.55-1.02 [facility] Comment on above: The validity of the calculated GFR & GFRAA in patients over 70 years has not been determined. Clinical correlation is essential. Serum or plasma urea nitroge n measurement (mass/volume)Ordered By: Dr. Khan on 12-10-2022 Urea nitrogen [Mass/Vol] 9 mg/dL 7-18 [facility] Thin prep Papanicolaou smear with manual screeningOrdered By: Dr. Khan on 12-10-2022 Thin prep Papanicolaou smear with manual screening 6 5-15 [facility] Basophil percentageOrdered B y: Dr. Khan on 12-09-2022 Bilirubin [Mass/Vol] 0.70 mg/dL 0.20-1.00 [facility] Comment on above: For patients on eltr ombopag therapy, use of Dimension [place] TBIL is not recommended. Protein [Mass/Vol] 5.4 g/dL 6.4-8.2 [facility] Laboratory - Chemistry and C hemistry - challengeOrdered By: Dr. Khan on 12-09-2022 ALP [Catalytic activity/Vol] 59 U/L 45-117 [facility] ALT [Catalytic activity/Vol] 25 U/L 13-56 [facility] Globulin (S) [Mass/Vol] 2.9 g/dL 2.2-4.2 [facility] Magnesium [Mass/Vol] 1.9 mg/dL 1.6-2.6 [facility] No Panel InformationOrdered By: Dr. Khan on 12-09-2022 Thyroid Stimulating Hormone (TSH) 1.20 uIU/mL 0.358-3.74 [facility] Serum or plasma albumin rosa isela urement (mass/volume)Ordered By: Dr. Khan on 12-09-2022 Albumin [Mass/Vol] 2.5 g/dL 3.2-5.0 [facility] Serum or plasma albumin/glob ulin mass ratioOrdered By: Dr. Khan on 12-09-2022 Albumin/Globulin [Mass ratio] 0.9 {ratio} 0.9-2.4 [facility] Stool gastrointestinal hemog lobin detection by immunologic methodOrdered By: Dr. Khan on 12-09-2022 Lower GI hemoglobin IA Ql (Stl) [facility] Thin prep Papanicolaou smear with manual screeningOrdered By: Dr. Khan on 12-09-2022 Thin prep Papanicolaou smear with manual screening 33 U/L 15-37 [facility] Basophil percentageOrdered B y: Quentin Melvin on 12-08-2022 Basophil percentage 25-50 SEEN /hpf 0-5 [facility] Ammonia (P) [Moles/Vol] 11.0 umol/L 11-32 [facility] Bilirubin Test strip Ql (U)O rdered By: Quentin Melvin on 12-08-2022 Bilirubin Ql (U) Negative Negative [facility] Direct bilirubinOrdered By: Quentin Melvin on 12-08-2022 Bilirubin.direct [Mass/Vol] 0.35 mg/dL 0.00-0.30 [facility] HCO3 (BldA) [Moles/Vol]Order ed By: Quentin Melvin on 12-08-2022 HCO3 (Bld) [Moles/Vol] 21 mmol/L 22-26 [facility] Ketones Test strip Ql (U)Ord ered By: Quentin Melvin on 12-08-2022 Ketones Ql (U) 15 mg/dl Negative [facility] Laboratory - Chemistry and C hemistry - challengeOrdered By: Quentin Melvin on 03-03-2023 CO2 [Moles/Vol] 22 mmol/L 23-33 [facility] Mucus LM Ql (Urine sed)Order ed By: Quentin Melvin on 12-08-2022 Mucus Ql (Urine sed) 0 SEEN /hpf [facility] Nitrite Test strip Ql (U)Ord ered By: Quentin Melvin on 12-08-2022 Nitrite Ql (U) Positive Negative [facility] No Panel InformationOrdered By: Quentin Melvin on 12-08-2022 Bed Mix Venous Bld PCO2 at Pat Temp 29.3 mmHg 41-51 [facility] Blood Gas Specimen Type PHIL [facility] Venous Blood Base Excess -3 mmol/L -1.0-3.5 [facility] PO2 venousOrdered By: Quentin Melvin on 12-08-2022 Oxygen (BldV) [Partial pressure] 55 mm[Hg] 25-40 [facility] Protein Test strip Ql (U)Ord ered By: Quentin Melvin on 12-08-2022 Protein Ql (U) 100 mg/dl Negative [facility] Squamous epithelial cells de tection in urine sediment by light microscopyOrdered By: Quentin Melvin on 12-08-2022 Epithelial cells.squamous LM Ql (Urine sed) 0-5 SEEN /hpf 5-10 [facility] Urine blood detectionOrdered By: Quentin Melvin on 12-08-2022 RBC Ql (U) 250 /ul Negative [facility] RBC Ql (U) 25-50 SEEN /hpf 0-5 [facility] Urine clarityOrdered By: Marciano Melvin on 12-08-2022 Clarity (U) Sl. Cloudy Clear [facility] Urine color determinationOrd ered By: Quentin Melvin on 12-08-2022 Color (U) Yellow Yellow [facility] Urine glucose detectionOrder ed By: Quentin Melivn on 12-08-2022 Glucose Ql (U) Normal mg/dl Normal [facility] Urine leukocyte esterase det ection by dipstickOrdered By: Quentin Melvin on 12-08-2022 Leukocyte esterase Test strip Ql (U) 500 /ul Negative [facility] Urine pHOrdered By: Quentin dodd on 12-08-2022 pH (U) 6.0 [pH] 5.0 - 8.0 [facility] Urine sediment bacteria coun t by microscopy (number/high power field)Ordered By: Quentin Melvin on 12-08-2022 Bacteria LM.HPF (Urine sed) [#/Area] 1 /[HPF] None Seen [facility] Urine specific gravity measu rementOrdered By: Quentin Melvin on 12-08-2022 Specific gravity (U) [Rel density] 1.010 1.002-1.030 [facility] Urobilinogen Auto test strip Ql (U)Ordered By: Quentin Melvin on 12-08-2022 Urobilinogen Ql (U) Normal mg/dl Normal [facility] Vital signsOrdered By: Adrian Melvin on 12-08-2022 Oxygen saturation in Blood 90 % 50-70 [facility] pH measurementOrdered By: Li Melvin on 12-08-2022 pH (Unsp spec) 7.46 [pH] 7.32-7.42 [facility] Culture, urineOrdered By: Dr Taylor Grajeda on 08-16-2022 Bacteria identified Cx Nom (U) Positive [facility] Absolute lymphocyte counton 01-02-2022 Lymphocytes Auto (Unsp spec) [#/Vol] 0.84 10*3/uL 0.83-4.51 [facility] Work Phone: Basophil percentageon 2021 Basophils/100 WBC (Bld) 1.0 % 0-1 [facility] Work Phone: Bilirubin [Mass/Vol] 0.40 mg/dL 0.20-1.00 [facility] Work Phone: Comment on above: For patients on eltr ombopag therapy, use of Dimension [place] TBIL is not recommended. Chloride [Moles/Vol] 100 mmol/L 98-107 [facility] Work Phone: Eosinophils/100 WBC (Bld) 2.6 % 0-5 [facility] Work Phone: Glucose [Mass/Vol] 81 mg/dL 74-106 [facility] Work Phone: Neutrophils (Bld) [#/Vol] 4.2 10*3/uL 2.0-7.7 [facility] Work Phone: Neutrophils/100 WBC (Bld) 72.8 % 47-70 [facility] Work Phone: Potassium [Moles/Vol] 4.0 mmol/L 3.5-5.1 [facility] Work Phone: Protein [Mass/Vol] 7.7 g/dL 6.4-8.2 [facility] Work Phone: Sodium [Moles/Vol] 135 mmol/L 136-145 [facility] Work Phone: [phone] WBC (Bld) [#/Vol] 5.8 10*3/uL 4.4-11.0 [facility] Work Phone: [phone] Blood erythrocytes count (nu mber/volume)on 01-02-2022 RBC (Bld) [#/Vol] 3.83 10*6[facility]uL [facility].2[facility]5.[facility]: [phone] Blood hemoglobin measurement (mass/volume)on 01-02-2022 Hemoglobin (Bld) [Mass/Vol] 11.5 g/dL 12.0-15.0 [facility] Work Phone: [phone] Blood lymphocytes/100 leukoc yteson 01-02-2022 Lymphocytes/100 WBC (Bld) 14.4 % 19-41 [facility] Work Phone: [phone] Blood monocytes/100 leukocyt eson 01-02-2022 Monocytes/100 WBC (Bld) 8.9 % 0-10 [facility] Work Phone: Blood platelet mean volumeon 01-02-2022 Platelet mean volume (Bld) [Entitic vol] 9.6 fL 6.2-12.0 [facility] Work Phone: Determination of erythrocyte mean corpuscular volume (MCV)on 01-02-2022 MCV (RBC) [Entitic vol] 94.5 fL 81-99 [facility] Work Phone: Hematocrit Auto (Bld) [Volum e fraction]on 01-02-2022 Hematocrit (Bld) [Volume fraction] 36.2 % 37-47 [facility] Work Phone: [phone] Laboratory - Chemistry and C hemistry - challengeon 01-02-2022 ALP [Catalytic activity/Vol] 80 U/L 45-117 [facility] Work Phone: [phone] ALT [Catalytic activity/Vol] 20 U/L 13-56 [facility] Work Phone: [phone] CO2 [Moles/Vol] 28.0 mmol/L 21.0-32.0 [facility] Work Phone: [phone] Free T4 [Mass/Vol] 1.40 ng/dL 0.76-1.46 [facility] Work Phone: [phone] Globulin (S) [Mass/Vol] 3.9 g/dL 2.2-4.2 [facility] Work Phone: [phone] Urea nitrogen/Creatinine [Mass ratio] 19.0 mg/mg 10-20 [facility] Work Phone: [phone] Laboratory - Hematology and Cell countson 01-02-2022 Erythrocyte distribution width (RBC) [Entitic vol] 41.6 fL 35.1-43.9 [facility] Work Phone: [phone] Erythrocyte distribution width (RBC) [Ratio] 12.1 % 11.6-14.6 [facility] Work Phone: [phone] Immature granulocytes/100 WBC (Bld) 0.300 % 0.0-0.9 [facility] Work Phone: [phone] Comment on above: IG% - Immature Granu locytes (promyelocytes, myelocytes and metamyelocytes) > 1% indicates that a LEFT SHIFT is Present. MCH (RBC) [Entitic mass] 30.0 pg 27.0-32.0 [facility] Work Phone: [phone] Nucleated RBC/100 WBC (Bld) [Ratio] 0 % 0-5 [facility] Work Phone: [phone] MCHC Auto (RBC) [Mass/Vol]on 01-02-2022 MCHC (RBC) [Mass/Vol] 31.8 g/dL 32-36 [facility] Work Phone: No Panel Informationon 01-02 Estimated GFR (MDRD) Amer 64 mL/min >60 [facility] Work Phone: Comment on above: GFR Calc Estimated GFR (MDRD) Non-Af Amer 53 mL/min >60 [facility] Work Phone: Comment on above: Non- GFR Calc Free Triiodothyronine (T3) pg/dL 2.7 pg/mL 2.18-3.98 [facility] Work Phone: Thyroid Stimulating Hormone (TSH) 0.67 uIU/mL 0.358-3.74 [facility] Work Phone: Platelets bldon 01-02-2022 Platelets (Bld) [#/Vol] 300 10*3/uL 150-450 [facility] Work Phone: Serum or plasma albumin rosa isela urement (mass/volume)on 01-02-2022 Albumin [Mass/Vol] 3.8 g/dL 3.2-5.0 [facility] Work Phone: [phone] Serum or plasma albumin/glob ulin mass ratioon 01-02-2022 Albumin/Globulin [Mass ratio] 1.0 {ratio} 0.9-2.4 [facility] Work Phone: [phone] Serum or plasma calcium rosa isela urement (mass/volume)on 01-02-2022 Calcium [Mass/Vol] 9.1 mg/dL 8.5-10.1 [facility] Work Phone: [phone] Serum or plasma creatinine m easurement (mass/volume)on 01-02-2022 Creatinine [Mass/Vol] 1.05 mg/dL 0.55-1.02 [facility] Work Phone: Comment on above: The validity of the calculated GFR & GFRAA in patients over 70 years has not been determined. Clinical correlation is essential. Serum or plasma urea nitroge n measurement (mass/volume)on 01-02-2022 Urea nitrogen [Mass/Vol] 20 mg/dL 7-18 [facility] Work Phone: Thin prep Papanicolaou smear with manual screeningon 01-02-2022 Thin prep Papanicolaou smear with manual screening 18 U/L 15-37 [facility] Work Phone: Thin prep Papanicolaou smear with manual screening 7 5-15 [facility] Work Phone: Culture, urineon 12-22-2021 Bacteria identified Cx Nom (U) Presumptive E. coli [facility] Work Phone: Absolute lymphocyte counton 10-10-2021 Lymphocytes Auto (Unsp spec) [#/Vol] 0.76 10*3/uL 0.83-4.51 [facility] Work Phone: Basophil percentageon 2021 Basophils/100 WBC (Bld) 0.9 % 0-1 [facility] Work Phone: Bilirubin [Mass/Vol] 0.40 mg/dL 0.20-1.00 [facility] Work Phone: Comment on above: For patients on eltr ombopag therapy, use of Dimension [place] TBIL is not recommended. Chloride [Moles/Vol] 100 mmol/L 98-107 [facility] Work Phone: Cholesterol [Mass/Vol] 198 mg/dL <200 [facility] Work Phone: Comment on above: <200 mg/dL Desirable 200-240 mg/dL Borderline >240 mg/dL High Risk Eosinophils/100 WBC (Bld) 2.5 % 0-5 [facility] Work Phone: Glucose [Mass/Vol] 90 mg/dL 74-106 [facility] Work Phone: Comment on above: Please note revised GLUCOSE reference range effective 2017. Neutrophils (Bld) [#/Vol] 5.3 10*3/uL 2.0-7.7 [facility] Work Phone: Neutrophils/100 WBC (Bld) 78.4 % 47-70 [facility] Work Phone: [phone] Potassium [Moles/Vol] 4.1 mmol/L 3.5-5.1 [facility] Work Phone: [phone] Protein [Mass/Vol] 7.8 g/dL 6.4-8.2 [facility] Work Phone: [phone] Sodium [Moles/Vol] 136 mmol/L 136-145 [facility] Work Phone: [phone] Triglyceride [Mass/Vol] 155 mg/dL [facility] Work Phone: [phone] Comment on above: The drugs N-Acetylcy steine and Metamizole may falsely depress this assay.Serum Triglycerides Reference Interval Normal <150 mg/dL Borderline high 150 - 199 mg/dL High 200 - 499 mg/dL Very High > or = 500 mg/dL WBC (Bld) [#/Vol] 6.7 10*3/uL 4.4-11.0 [facility] Work Phone: [phone] Blood erythrocytes count (nu mber/volume)on 10-10-2021 RBC (Bld) [#/Vol] 3.70 10*6/uL 4.2-5.4 [facility] Work Phone: [phone] Blood hemoglobin measurement (mass/volume)on 10-10-2021 Hemoglobin (Bld) [Mass/Vol] 11.2 g/dL 12.0-15.0 [facility] Work Phone: [phone] Blood lymphocytes/100 leukoc yteson 10-10-2021 Lymphocytes/100 WBC (Bld) 11.3 % 19-41 [facility] Work Phone: [phone] Blood monocytes/100 leukocyt eson 10-10-2021 Monocytes/100 WBC (Bld) 6.5 % 0-10 [facility] Work Phone: [phone] Blood platelet mean volumeon 10-10-2021 Platelet mean volume (Bld) [Entitic vol] 9.3 fL 6.2-12.0 [facility] Work Phone: [phone] Determination of erythrocyte mean corpuscular volume (MCV)on 10-10-2021 MCV (RBC) [Entitic vol] 97.8 fL 81-99 [facility] Work Phone: [phone] Hematocrit Auto (Bld) [Volum e fraction]on 10-10-2021 Hematocrit (Bld) [Volume fraction] 36.2 % 37-47 [facility] Work Phone: [phone] Laboratory - Chemistry and C hemistry - challengeon 10-10-2021 ALP [Catalytic activity/Vol] 80 U/L 45-117 [facility] Work Phone: [phone] ALT [Catalytic activity/Vol] 20 U/L 13-56 [facility] Work Phone: [phone] CO2 [Moles/Vol] 30.0 mmol/L 21.0-32.0 [facility] Work Phone: [phone] Globulin (S) [Mass/Vol] 4.1 g/dL 2.2-4.2 [facility] Work Phone: [phone] Urea nitrogen/Creatinine [Mass ratio] 21.0 mg/mg 10-20 [facility] Work Phone: [phone] Laboratory - Hematology and Cell countson 10-10-2021 Erythrocyte distribution width (RBC) [Entitic vol] 45.6 fL 35.1-43.9 [facility] Work Phone: [phone] Erythrocyte distribution width (RBC) [Ratio] 12.7 % 11.6-14.6 [facility] Work Phone: [phone] Immature granulocytes/100 WBC (Bld) 0.400 % 0.0-0.9 [facility] Work Phone: [phone] Comment on above: IG% - Immature Granu locytes (promyelocytes, myelocytes and metamyelocytes) > 1% indicates that a LEFT SHIFT is Present. MCH (RBC) [Entitic mass] 30.3 pg 27.0-32.0 [facility] Work Phone: [phone] Nucleated RBC/100 WBC (Bld) [Ratio] 0 % 0-5 [facility] Work Phone: [phone] MCHC Auto (RBC) [Mass/Vol]on 10-10-2021 MCHC (RBC) [Mass/Vol] 30.9 g/dL 32-36 [facility] Work Phone: No Panel Informationon 10-10 Estimated GFR (MDRD) Amer 64 mL/min >60 [facility] Work Phone: Comment on above: GFR Calc Estimated GFR (MDRD) Non-Af Amer 53 mL/min >60 [facility] Work Phone: Comment on above: Non- GFR Calc Platelets bldon 10-10-2021 Platelets (Bld) [#/Vol] 294 10*3/uL 150-450 [facility] Work Phone: [phone] Serum or plasma albumin rosa isela urement (mass/volume)on 10-10-2021 Albumin [Mass/Vol] 3.7 g/dL 3.2-5.0 [facility] Work Phone: [phone] Serum or plasma albumin/glob ulin mass ratioon 10-10-2021 Albumin/Globulin [Mass ratio] 0.9 {ratio} 0.9-2.4 [facility] Work Phone: [phone] Serum or plasma calcium rosa isela urement (mass/volume)on 10-10-2021 Calcium [Mass/Vol] 9.5 mg/dL 8.5-10.1 [facility] Work Phone: [phone] Serum or plasma cholesterol in HDL measurement (mass/volume)on 10-10-2021 Cholesterol in HDL [Mass/Vol] 86 mg/dL [facility] Work Phone: Comment on above: The drugs N-Acetylcy steine and Metamizole may falsely depress this assay. Reference Range HDL <40 mg/dL Low HDL Cholesterol HDL >or= 60 mg/dL High HDL Cholesterol Serum or plasma cholesterol in VLDL measurement (mass/volume)on 10-10-2021 Cholesterol in VLDL [Mass/Vol] 31 mg/dL 5-40 [facility] Work Phone: [phone] Serum or plasma creatinine m easurement (mass/volume)on 10-10-2021 Creatinine [Mass/Vol] 1.05 mg/dL 0.55-1.02 [facility] Work Phone: Comment on above: The validity of the calculated GFR & GFRAA in patients over 70 years has not been determined. Clinical correlation is essential. Serum or plasma low density lipoprotein (LDL) cholesterol measurement (mass/volume)on 10-10-2021 Cholesterol in LDL [Mass/Vol] 81 mg/dL 0-130 [facility] Work Phone: Serum or plasma urea nitroge n measurement (mass/volume)on 10-10-2021 Urea nitrogen [Mass/Vol] 22 mg/dL 7-18 [facility] Work Phone: Thin prep Papanicolaou smear with manual screeningon 10-10-2021 Thin prep Papanicolaou smear with manual screening 17 U/L 15-37 [facility] Work Phone: Thin prep Papanicolaou smear with manual screening 6 5-15 [facility] Work Phone: CNOVon 03-14-2019 CNOV Office Visit ([place]) MARLI ROSALES ([id number]) 1935 F Date Time Provider Department 03/14/19 [...] Age: [age] year old Sex: female MRN/E# [id number] Chief Complaint: Patient presents with: Low Back [...] THERAPEUTIC Dilation AND curettage - EGD W/O [facility] SPECIMEN W/BX 11/12/2017 for GI bleeding - [...] [M54.5, G89.29] Order(s):XR LUMBAR LIMITED 2V AP/LAT [[id number]] Order #: [id number] FUTURE Prescriptions as of 03/14/2019 Sig: CETIRIZINE [...] Pain) [M54.5] INVALID FOR* Myalgia and Myositis [BUH0660] INVALID FOR* Right Knee Pain [M25.561] INVALID [...] Status:Closed by SUDHAKAR BHATT MD on 03/14/19 [facility] PROGRESSon 03-14-2019 Protein mass conc HNO ID: [id number] Author: Sudhakar Bhatt Service: ? Author Type: Physician Type: Progress Notes Filed: 03/14/2019 12:34 PM Note Text: NEUROSURGERY CONSULT NOTE Sudhakar Bhatt MD Date of visit: March 14, 2019 Patient Name: Ms.Betty Montse Rosales Date of : 1935 Current Age: [age] year old Sex: female MRN/E# [id number] Chief Complaint: Patient presents with: Low Back [...] THERAPEUTIC Dilation AND curettage - EGD W/O [facility] SPECIMEN W/BX 11/12/2017 for GI bleeding - [...] been discussed in detail. Sudhakar Bhatt MD [facility] Office Visit: UC: YOSVANY isaac 07-11-2017 Fall risk assessment No Invalid Interpretation Code [facility] Work Phone: Protein mass conc Done Invalid Interpretation Code [facility] Work Phone: Tobacco smoking status MSIS Never Invalid Interpretation Code [facility] Work Phone: Tobacco smoking status MSIS Never smoker Invalid Interpretation Code [facility] Work Phone: Lab Report: Basic Metabolic Profile (BMP)on 04-12-2016 Anion gap 4 molar conc 10 Invalid Interpretation Code 5-15 [facility] Work Phone: Calcium mass conc 8.1 mg/dL Low 8.5-10.1 [facility] Work Phone: Chloride molar conc 103 mmol/L Invalid Interpretation Code 98-107 [facility] Work Phone: CO2 ppres (BldV) 25.0 mmol/L Invalid Interpretation Code 21.0-32.0 [facility] Work Phone: Creatinine mass conc 0.62 mg/dL Invalid Interpretation Code 0.55-1.20 [facility] Work Phone: EST GFR - AA 120 mL/min Invalid Interpretation Code >60 [facility] Work Phone: GFR/1.73 sq M predicted among non-blacks MDRD vol rate/area (S/P/Bld) 99 mL/min/{1.73_m2} Invalid Interpretation Code >60 [facility] Work Phone: Glucose mass conc 118 mg/dL High 70-110 [facility] Work Phone: Potassium molar conc 4.0 mmol/L Invalid Interpretation Code 3.5-5.1 [facility] Work Phone: Sodium molar conc 138 mmol/L Invalid Interpretation Code 136-145 [facility] Work Phone: Urea nitrogen mass conc 10 mg/dL Invalid Interpretation Code 7-18 [facility] Work Phone: Urea nitrogen/Creatinine mass ratio 16.2 RATIO Invalid Interpretation Code 10-20 [facility] Work Phone: Lab Report: CBC-Complete Blo od Cnt No Diffon 04-12-2016 Erythrocyte distribution width Auto Ratio (RBC) 12.1 % Invalid Interpretation Code 11.6-14.6 [facility] Work Phone: Erythrocyte distribution width Auto Ratio (RBC) 39.8 fL Invalid Interpretation Code 35.1-43.9 [facility] Work Phone: Hematocrit Auto Volume Fraction (Bld) 27.9 % Low 37-47 [facility] Work Phone: Hemoglobin mass conc (Bld) 9.1 g/dL Low 12.0-15.0 [facility] Work Phone: MCH Auto Entitic mass (RBC) 30.5 pg Invalid Interpretation Code 27.0-32.0 [facility] Work Phone: MCHC Auto mass conc (RBC) 32.6 G/GL Invalid Interpretation Code 32-36 [facility] Work Phone: MCV Auto Entitic volume (RBC) 93.6 fL Invalid Interpretation Code 81-99 [facility] Work Phone: Platelet mean volume Emerson-Yariel Entitic volume (Bld) 10.3 fL Invalid Interpretation Code 6.2-12.0 [facility] Work Phone: [phone] Platelets Auto #/vol (Bld) 177 10*3/mm3 Invalid Interpretation Code 150-450 [facility] Work Phone: [phone] RBC Auto #/vol (Bld) 2.98 10*6/uL Low 4.2-5.4 [facility] Work Phone: WBC Auto #/vol (Bld) 9.1 10*3/uL Invalid Interpretation Code 4.4-11.0 [facility] Work Phone: Microbiology: MRSA/SAID SCRE ENon 03-25-2016 MRSA+SAID SCRN . Invalid Interpretation Code [facility] Work Phone: Lab Report: Urinalysis, Rout ine (Dipstick)on 03-23-2016 Albumin Ql (U) Negative Invalid Interpretation Code Negative [facility] Work Phone: Bilirubin Ql (U) Negative Invalid Interpretation Code Negative [facility] Work Phone: Color Nom (U) Yellow Invalid Interpretation Code Yellow [facility] Work Phone: Glucose Ql (U) Normal mg/dl Invalid Interpretation Code Normal [facility] Work Phone: Ketones mass conc (U) Negative Invalid Interpretation Code Negative [facility] Work Phone: Leukocyte esterase Test strip Ql (U) 500 High Negative [facility] Work Phone: OCCULT BLOOD-UR 10 High Negative [facility] Work Phone: pH Test strip (U) 6.0 [pH] Invalid Interpretation Code 5.0 - 8.0 [facility] Work Phone: Specific gravity Refractometry Relative Density (U) 1.010 Invalid Interpretation Code 1.002-1.030 [facility] Work Phone: Rx Refill: eRx Request for F LUCONAZOLE 200 MG ORAL TABSon 03-01-2016 ESM_RR [id number]`FLUCONAZ OLE 200 MG ORAL TABS`200``3 Unspecified`3`1 po daily x 3 days``1`0`12/14/2015 `02/10/2016`Gulshan Gordon*`[id number]` [id number]``FLUCONA ZOLE 200MG TAB Quantity: 3 Tablet Instructions: TAKE ONE TABLET BY MOUTH ONCE DAILY FOR 3 DAYS Better [facility] Work Phone: Lab Report: CBC W/Diff, Auto matedon 12-14-2015 Basophils/100 WBC Auto (Bld) 0.4 % Invalid Interpretation Code 0-1 [facility] Work Phone: Eosinophils/100 WBC Auto (Bld) 5.5 % High 0-5 [facility] Work Phone: Immature granulocytes #/vol (Bld) 0.200 % Invalid Interpretation Code 0.0-0.9 [facility] Work Phone: Lymphocytes Auto #/vol (Bld) 0.96 X10 3/UL Invalid Interpretation Code 0.83-4.51 [facility] Work Phone: Lymphocytes/100 WBC Auto (Bld) 18.3 % Low 19-41 [facility] Work Phone: Monocytes/100 WBC Auto (Bld) 10.6 % High 0-10 [facility] Work Phone: Neutrophils Auto #/vol (Bld) 3.4 X10 3/UL Invalid Interpretation Code 2.0-7.7 [facility] Work Phone: Neutrophils/100 WBC Auto (Bld) 65.0 % Invalid Interpretation Code 47-70 [facility] Work Phone: Lab Report: Urinalysis, Comp leteon 12-10-2015 Epithelial cells LM.HPF #/area (Urine sed) 0-5 SEEN Invalid Interpretation Code 5-10 [facility] Work Phone: Mucus LM Ql (Urine sed) 0 SEEN Invalid Interpretation Code [facility] Work Phone: RBC LM.HPF #/vol (Urine sed) 0 SEEN Invalid Interpretation Code 0-5 [facility] Work Phone: WBC >100 SEEN Invalid Interpretation Code 0-5 [facility] Work Phone: Lab Report: ANTINUCLEAR ANTI BODIES DIRECTon 09-17-2015 Nuclear Ab IA Qn (S) Negative Invalid Interpretation Code Negative [facility] Work Phone: Replaced Document: (P) CCP I gG Antibodieson 09-15-2015 ANTI-CCP [id number] units Invalid Interpretation Code 0-19 [facility] Work Phone: Replaced Document: (P) Hep B Surface Antibodieson 09-15-2015 HBV surface Ab IA Qn Non Reactive Invalid Interpretation Code . [facility] Work Phone: Replaced Document: (P) Hepat itis B Surface Agon 09-15-2015 HBV surface Ag Ql (S) Negative Invalid Interpretation Code Negative [facility] Work Phone: Replaced Document: (P) Hepat itis B Core AB IgMon 09-15-2015 HB CORE [id number] Negative Invalid Interpretation Code Negative [facility] Work Phone: Replaced Document: (P) Hepat itis C Antibodieson 09-15-2015 HCV Ab IB Ql (S) <0.1 Invalid Interpretation Code 0.0-0.9 [facility] Work Phone: Lab Report: Comprehensive Me tabolic Profilon 09-13-2015 Albumin mass conc 3.7 g/dL Invalid Interpretation Code 3.4-5.0 [facility] Work Phone: Albumin/Globulin mass ratio 1.1 {ratio} Invalid Interpretation Code 0.9-2.4 [facility] Work Phone: ALP enzyme act/vol (Bld) 75 U/L Invalid Interpretation Code 50-136 [facility] Work Phone: ALT enzyme act/vol 35 U/L Invalid Interpretation Code 12-78 [facility] Work Phone: AST enzyme act/vol 26 U/L Invalid Interpretation Code 15-37 [facility] Work Phone: Bilirubin mass conc 0.60 mg/dL Invalid Interpretation Code 0.20-1.00 [facility] Work Phone: Globulin Calculated mass conc (S) 3.4 g/dL Invalid Interpretation Code 2.3-3.5 [facility] Work Phone: Protein mass conc 7.1 g/dL Invalid Interpretation Code 6.4-8.2 [facility] Work Phone: Lab Report: Rheumatoid Facto ren 09-13-2015 Rheumatoid factor LA Ql (S) < 10.0 Invalid Interpretation Code <15 [facility] Work Phone: Lab Report: CBC W/Diff, Auto matedon 04-12-2015 Absolute Neut 5.1 X10 3/UL Invalid Interpretation Code 2.0-7.7 [facility] Work Phone: Lymphocytes Auto #/vol (Bld) 1.19 X10 3/UL Invalid Interpretation Code 0.83-4.51 [facility] Work Phone: Lab Report: Ironon 5 Iron mass conc 89 ug/dL Invalid Interpretation Code 50-170 [facility] Work Phone: Lab Report: Thyroid Stim Hor jessie (TSH)on 04-12-2015 Thyrotropin Qn 3.21 u[iU]/mL Invalid Interpretation Code 0.358-3.74 [facility] Work Phone: Office Visit: UTI symptomson 03-10-2015 Appearance Nom (U) hazy Invalid Interpretation Code [facility] Work Phone: Glucose Test strip mass conc (U) Negative Invalid Interpretation Code [facility] Work Phone: Nitrite Test strip Ql (U) Negative Invalid Interpretation Code [facility] Work Phone: Urobilinogen Test strip Ql (U) 0.2 Invalid Interpretation Code [facility] Work Phone: Communication Note: Hemoccul t resultson 12-18-2014 Hemoglobin.gastrointesti nal Ql (St) Positive Invalid Interpretation Code [facility] Work Phone: Lab Report: Vitamin B12on Cobalamin (Vitamin B12) mass conc 813 pg/mL Invalid Interpretation Code 211-911 [facility] Work Phone: Lab Report: Ferritinon 12-08 Ferritin mass conc 7 ng/mL Critically low 8-252 [facility] Work Phone: Lab Report: Folates, (Folic Acid)on 12-08-2014 Folate mass conc 11.40 ng/mL Invalid Interpretation Code 3.1-17.5 [facility] Work Phone: Lab Report: Iron+Iron Bindin g Capacityon 12-08-2014 Iron binding capacity mass conc 325 ug/dL Invalid Interpretation Code 250-450 [facility] Work Phone: Lab Report: Lipid Profileon 12-08-2014 Cholesterol in HDL mass conc 77 mg/dL Invalid Interpretation Code [facility] Work Phone: Cholesterol in LDL mass conc 86 mg/dL Invalid Interpretation Code 0-130 [facility] Work Phone: Cholesterol mass conc 176 mg/dL Invalid Interpretation Code 200 [facility] Work Phone: Lipoprotein.pre-beta mass conc 13 mg/dL Invalid Interpretation Code 5-40 [facility] Work Phone: Triglyceride mass conc 64 mg/dL Invalid Interpretation Code 0-199 [facility] Work Phone: Lab Report: CRPon 07-07-2014 CRP mass conc 10.60 mg/L High 0.0-3.0 [facility] Work Phone: Office Visiton 05-21-2014 RBC Ql (U) 3+ Invalid Interpretation Code [facility] Work Phone: Culture, urine Bacteria identified Cx Nom (U) Klebsiella aerogenes [facility] Work Phone: Bacteria identified Cx Nom (U) Positive [facility] Work Phone: Vital Signs Date Time Vital Sign Value Performing Clinician Facility 06-26-2025 14:02-0400 Body temperature 97.8 [degF] Dr. Roma Grajeda DO Work Phone: [facility] 06-26-2025 14:02-0400 Diastolic blood pressure 77 mm[Hg] Dr. Roma Grajeda DO Work Phone: [facility] 06-26-2025 14:02-0400 Heart rate 80 /min Dr. Roma Grajeda DO Work Phone: [facility] 06-26-2025 14:02-0400 Respiratory rate 17 /min Dr. Roma Grajeda DO Work Phone: [facility] 06-26-2025 14:02-0400 SaO2% (BldA) [Mass fraction] 98 % Dr. Roma Grajeda DO Work Phone: [facility] 06-26-2025 14:02-0400 Systolic blood pressure 165 mm[Hg] Dr. Roma Grajeda DO Work Phone: [facility] 06-24-2025 14:27-0400 Body height 147.[address] Roma Grajeda DO Work Phone: [facility] 06-24-2025 14:27-0400 Body mass index (BMI) [Ratio] 32.2 kg/m2 Dr. Roma Grajeda DO Work Phone: [facility] 06-24-2025 14:27-0400 Body weight 69.[address] Roma Grajeda DO Work Phone: [facility] 06-24-2025 14:19-0400 Body temperature 98.1 [degF] Dr. Roma Grajeda DO Work Phone: [facility] 06-24-2025 14:19-0400 Diastolic blood pressure 69 mm[Hg] Dr. Roma Grajeda DO Work Phone: [facility] 06-24-2025 14:19-0400 Heart rate 74 /min Dr. Roma Grajeda DO Work Phone: [facility] 06-24-2025 14:19-0400 Respiratory rate 18 /min Dr. Roma Grajeda DO Work Phone: [facility] 06-24-2025 14:19-0400 SaO2% (BldA) [Mass fraction] 95 % Dr. Roma Grajeda DO Work Phone: [facility] 06-24-2025 14:19-0400 Systolic blood pressure 143 mm[Hg] Dr. Roma Grajeda DO Work Phone: [facility] 06-24-2025 10:42-0400 Body height 147.[address] Roma Grajeda DO Work Phone: [facility] 06-24-2025 10:42-0400 Body mass index (BMI) [Ratio] 32.2 kg/m2 Dr. Roma Grajeda DO Work Phone: [facility] 06-24-2025 10:42-0400 Body weight 69.[address] Roma Grajeda DO Work Phone: [facility] 06-11-2025 17:14-0400 Body temperature 98.2 [degF] Dr. Roma Grajeda DO Work Phone: [facility] 06-11-2025 17:14-0400 Diastolic blood pressure 74 mm[Hg] Dr. Roma Grajeda DO Work Phone: [facility] 06-11-2025 17:14-0400 Heart rate 75 /min Dr. Roma Grajeda DO Work Phone: [facility] 06-11-2025 17:14-0400 Respiratory rate 16 /min Dr. Roma Grajeda DO Work Phone: [facility] 06-11-2025 17:14-0400 SaO2% (BldA) [Mass fraction] 100 % Dr. Roma Grajeda DO Work Phone: [facility] 06-11-2025 17:14-0400 Systolic blood pressure 159 mm[Hg] Dr. Roma Grajeda DO Work Phone: [facility] 06-11-2025 14:12-0400 Body height 147.[address] Roma Grajeda DO Work Phone: [facility] 06-11-2025 14:12-0400 Body mass index (BMI) [Ratio] 29.9 kg/m2 Dr. Roma Grajeda DO Work Phone: [facility] 06-11-2025 14:12-0400 Body weight 65.[address] Roma Grajeda DO Work Phone: [facility] 10-12-2023 06:53-0500 Respiratory rate 16 /min Dr. Roma Grajeda Work Phone: [facility] 10-11-2023 13:27-0500 Body temperature 97.6 [degF] Dr. Roma Grajeda Work Phone: [facility] 10-11-2023 13:27-0500 Diastolic blood pressure 64 mm[Hg] Dr. Roma Grajeda Work Phone: [facility] 10-11-2023 13:27-0500 Heart rate 78 /min Dr. Roma Grajeda Work Phone: [facility] 10-11-2023 13:27-0500 SaO2% (BldA) [Mass fraction] 92 % Dr. Roma Grajeda Work Phone: [facility] 10-11-2023 13:27-0500 Systolic blood pressure 107 mm[Hg] Dr. Roma Grajeda Work Phone: [facility] 10-09-2023 12:32-0500 Body mass index (BMI) [Ratio] 30.1 kg/m2 Dr. Roma Grajeda Work Phone: [facility] 10-09-2023 12:32-0500 Body weight 65.[address] Roma Grajeda Work Phone: [facility] 10-05-2023 13:37-0500 Body height 147.[address] Roma Grajeda Work Phone: [facility] 10-04-2023 14:31-0500 Body temperature 97.3 [degF] Dr. Roma Grajeda Work Phone: [facility] 10-04-2023 14:31-0500 Diastolic blood pressure 66 mm[Hg] Dr. Roma Grajeda Work Phone: [facility] 10-04-2023 14:31-0500 Heart rate 81 /min Dr. Roma Grajeda Work Phone: [facility] 10-04-2023 14:31-0500 Respiratory rate 18 /min Dr. Roma Grajeda Work Phone: [facility] 10-04-2023 14:31-0500 SaO2% (BldA) [Mass fraction] 96 % Dr. Roma Grajeda Work Phone: [facility] 10-04-2023 14:31-0500 Systolic blood pressure 132 mm[Hg] Dr. Roma Grajeda Work Phone: [facility] 10-04-2023 06:00-0500 Body mass index (BMI) [Ratio] 31 kg/m2 Dr. Roma Grajeda Work Phone: [facility] 10-04-2023 06:00-0500 Body weight 67.[address] Roma Grajeda Work Phone: [facility] 09-29-2023 01:09-0500 Body height 147.[address] Roma Grajeda Work Phone: [facility] 01-18-2023 20:25-0400 Body height 149.[address] Roma Grajeda Work Phone: [facility] 01-18-2023 20:25-0400 Body mass index (BMI) [Ratio] 28.8 kg/m2 Dr. Roma Grajeda Work Phone: [facility] 01-18-2023 20:25-0400 Body temperature 97.9 [degF] Dr. Roma Grajeda Work Phone: [facility] 01-18-2023 20:25-0400 Body weight 64.[address] Roma Grajeda Work Phone: [facility] 01-18-2023 20:25-0400 Diastolic blood pressure 68 mm[Hg] Dr. Roma Grajeda Work Phone: [facility] 01-18-2023 20:25-0400 Heart rate 78 /min Dr. Roma Grajeda Work Phone: [facility] 01-18-2023 20:25-0400 Respiratory rate 18 /min Dr. Roma Grajeda Work Phone: [facility] 01-18-2023 20:25-0400 SaO2% (BldA) [Mass fraction] 97 % Dr. Roma Grajeda Work Phone: [facility] 01-18-2023 20:25-0400 Systolic blood pressure 148 mm[Hg] Dr. Roma Grajeda Work Phone: [facility] 12-10-2022 10:21-0500 Body temperature 98.3 [degF] Dr. Roma Grajeda Work Phone: [facility] 12-10-2022 10:21-0500 Diastolic blood pressure 72 mm[Hg] Dr. Roma Grajeda Work Phone: [facility] 12-10-2022 10:21-0500 Heart rate 84 /min Dr. Roma Grajeda Work Phone: [facility] 12-10-2022 10:21-0500 Respiratory rate 18 /min Dr. Roma Grajeda Work Phone: [facility] 12-10-2022 10:21-0500 SaO2% (BldA) [Mass fraction] 98 % Dr. Roma Grajeda Work Phone: [facility] 12-10-2022 10:21-0500 Systolic blood pressure 151 mm[Hg] Dr. Roma Grajeda Work Phone: [facility] 12-08-2022 15:50-0500 Body height 147.[address] Roma Grajeda Work Phone: [facility] 12-08-2022 15:50-0500 Body weight 66.[address] Roma Grajeda Work Phone: [facility] 12-08-2022 10:51-0500 Body mass index (BMI) [Ratio] 30.5 kg/m2 Dr. Roma Grajeda Work Phone: [facility] 07-11-2017 15:20-0400 BMI (Body Mass Index) 29.28 kg/m2 Rupinder Zhu LPN [facility] Work Phone: 07-11-2017 15:20-0400 Body Temperature 99.2 [degF] Rupinder Zhu LPN [facility] Work Phone: 07-11-2017 15:20-0400 BP Diastolic 72 mm[Hg] Rupinder Zhu LPN [facility] Work Phone: 07-11-2017 15:20-0400 BP Systolic 128 mm[Hg] Rupinder Zhu LPN [facility] Work Phone: 07-11-2017 15:20-0400 Height 149.86 cm Rupinder Zhu LPN [facility] Work Phone: 07-11-2017 15:20-0400 Pulse (Heart Rate) 93 /min Rupinder Zhu LPN [facility] Work Phone: 07-11-2017 15:20-0400 Respiratory Rate 16 /min Rupinder Zhu LPN [facility] Work Phone: 07-11-2017 15:20-0400 Weight 65.77 kg Rupinder Zhu [facility] Work Phone: 04-24-2016 12:15-0400 BSA (Body Surface Area) 1.58 m2 Rupinder Zhu [facility] Work Phone: 04-12-2016 06:15-0400 Body surface area Derived from formula 45.73 mL/min Rupinder Zhu [facility] Work Phone: Encounters Encounter Date Encounter Type Care Provider Facility Start: 06-26-2025 Non-patient / Non-visit [facility]. Valeria LE [facility] Work Phone: Start: 06-25-2025 Non-patient / Non-visit [facility]. Valeria LE [facility] Work Phone: Start: 06-24-2025 End: 06-26-2025 ambulatory Huma Khan Facility:[facility] Start: 06-24-2025 End: 06-26-2025 Evaluation and management of inpatient Dr. Huma Khan MD -[facility] Work Phone: Start: 06-24-2025 End: 06-26-[address] Roma Grajeda DO Work Phone: -[facility] Start: 06-11-2025 End: 06-11-2025 Emergency department patient visit Dr. Roma Grajeda DO Work Phone: -Emergency Department Work Phone: Start: 04-07-2025 Non-patient / Non-visit Dr. Raphael Gutierrez MD -[facility] Work Phone: Start: 11-27-2024 End: 11-27-2024 ambulatory JAZMIN CHAVEZ Facility:[facility] Start: 11-27-2024 End: 11-27-2024 Patient encounter procedure Zane Sol MD Work Phone: Ophthalmology Comment on above: Peripheral exudative hemorrhagic chorioretinopathy (Primary Dx) Start: 11-22-2024 ambulatory Joni Hunt ty:[facility] Start: 11-22-2024 End: 11-24-2024 Evaluation and management of inpatient Joni Torres Facility:[facility] Start: 07-22-2024 ambulatory Saad Abraham [facility] Facil ity:[facility] Start: 01-31-2024 End: 01-31-2024 ambulatory [facility] Work Phone: Start: 01-31-2024 End: 01-31-2024 Patient encounter procedure [facility] Work Phone: Start: 01-31-2024 End: 01-31-2024 ambulatory [facility] Work Phone: Start: 01-31-2024 End: 01-31-2024 Patient encounter procedure [facility] [place] Work Phone: Start: 10-04-2023 End: 10-12-2023 Evaluation and management of inpatient Dr. Roma Grajeda Work Phone: [facility] Start: 10-04-2023 Non-patient / Non-visit Dr. Ursula Grajeda Work Phone: [facility] Work Phone: Start: 10-03-2023 Non-patient / Non-visit Dr. Ursula Grajeda Work Phone: [facility] Work Phone: Start: 10-02-2023 Non-patient / Non-visit Dr. Ursula Grajeda Work Phone: [facility] Work Phone: Start: 10-01-2023 Non-patient / Non-visit Dr. Ursula Grajeda Work Phone: [facility] Work Phone: Start: 09-30-2023 Non-patient / Non-visit Dr. Ursula Grajeda Work Phone: [facility] Work Phone: Start: 09-29-2023 Non-patient / Non-visit Dr. Ursula Grajeda Work Phone: [facility] Work Phone: Start: 09-28-2023 End: 10-04-2023 Evaluation and management of inpatient Dr. Roma Grajeda Work Phone: [facility] [facility] Work Phone: Start: 09-28-2023 End: 10-04-[address] Roma Grjaeda Work Phone: [facility] Work Phone: Start: 09-24-2023 End: 09-24-2023 ambulatory [facility] Work Phone: Start: 09-24-2023 End: 09-24-2023 Patient encounter procedure [facility] Start: 07-26-2023 End: 07-26-2023 ambulatory [facility] Work Phone: Start: 07-26-2023 End: 07-26-2023 Patient encounter procedure [facility] Work Phone: Start: 07-13-2023 End: 07-13-2023 ambulatory [facility] Work Phone: Start: 07-13-2023 End: 07-13-2023 [facility] Start: 05-28-2023 End: 05-28-2023 ambulatory [facility] Work Phone: Start: 05-28-2023 End: 05-28-2023 [facility] Start: 02-05-2023 End: 02-05-[address] Roma Grajeda Work Phone: [facility] Work Phone: Start: 02-05-2023 End: 02-05-[address] [facility] Start: 01-18-2023 End: 01-18-2023 Emergency department patient visit Dr. Roma Grajeda Work Phone: [facility]-Emergency Department Start: 12-14-2022 End: 12-14-[address] Roma Grajeda Work Phone: [facility] Work Phone: Start: 12-14-2022 End: 12-14-[address] Roma Grajeda Work Phone: [facility], [facility] Start: 12-10-2022 Non-patient / Non-visit Dr. Ursula Grajeda Work Phone: [facility] Start: 12-09-2022 End: 12-10-2022 Evaluation and management of inpatient Dr. Roma Grajeda Work Phone: [facility]-Progressive Care Unit Start: 12-09-2022 Non-patient / Non-visit Dr. Ursula Grajeda Work Phone: [facility] Start: 12-08-2022 Non-patient / Non-visit Dr. Ursula Grajeda Work Phone: [facility] Start: 08-14-2022 End: 08-14-2022 ambulatory [facility] Work Phone: Start: 08-14-2022 End: 08-14-2022 [facility] Start: 07-31-2022 End: 07-31-2022 ambulatory [facility] Work Phone: Start: 07-31-2022 End: 07-31-2022 Patient encounter procedure [facility], [facility] Start: 07-04-2022 End: 07-04-2022 ambulatory [facility] Work Phone: Start: 07-04-2022 End: 07-04-2022 [facility] Start: 01-02-2022 End: 01-02-2022 [facility] Start: 12-22-2021 End: 12-22-2021 [facility] Start: 10-10-2021 End: 10-10-2021 [facility] Procedures Date Procedure Procedure Detail Performing Clinician Start: 06-26-[address] Roma Grajeda DO Work Phone: Start: 06-26-2025 Serum inorganic phosphate measurement Dr. Roma Grajeda DO Work Phone: Start: 06-24-[address] Roma Grajeda DO Work Phone: Start: 06-24-2025 Urnls dip stick/tablet reagent auto [...] End: 07-11-2017 Smpl repair scalp/neck/ax/genit/trunk 2.6-7.5cm Barrie COOPER Work Phone: Start: 03-23-2016 End: 03-23-2016 Urinalysis Rupinder Zhu LPN Start: 12-14-2015 End: 12-14-2015 *CBC with Differential Roma Nhan Grajeda, DO Work Phone: Start: 12-10-2015 End: 12-10-2015 Urinalysis Rupinder Zhu LPN Start: 10-15-2015 Therapeutic drug monitoring assay Encounter for therapeutic drug monitoring Rupinder Zhu LPN Start: 04-12-2015 End: 04-12-2015 *CBC with Differential Roma Nhan Grajeda, DO Work Phone: Start: 04-12-2015 End: 04-13-2015 *CMP Complete Metabolic Panel Roma Grajeda, DO Work Phone: Start: 04-12-2015 End: 04-13-2015 Iron [Mass/volume] in Serum or Plasma Roma Nhan Grajeda, DO Work Phone: Start: 04-12-2015 End: 04-13-2015 Thyrotropin [Units/volume] in Serum or Plasma Roma Grajeda, DO Work Phone: Start: 03-10-2015 End: 03-10-2015 Urinalysis Rupinder Zhu [employer] Start: 02-03-2015 Screening for malignant neoplasm of breast Screening for breast cancer Rupinder Zhu [employer] Start: 12-07-2014 End: 12-09-2014 *B12FO Vitamin B12 and Folates Roma Grajeda, DO Work Phone: Start: 12-07-2014 End: 12-10-2014 *CBC with Differential Roma Grajeda, DO Work Phone: Start: 12-07-2014 End: 12-09-2014 *CMP Complete Metabolic Panel Roma Grajeda, DO Work Phone: Start: 12-07-2014 [...] Bacteria identified in Urine by Culture Roma Nhan Grajeda, DO Work Phone: Start: 08-17-2014 End: 12-10-2014 Urnls dip stick/tablet rgnt non-auto w/o micrscp Roma Nhan Grajeda, DO Work Phone: Start: 07-28-2014 End: 12-10-2014 *CUUID - Urine CAMRON Culture - Identificatn Roma Nhna Grajeda, DO Work Phone: Start: 07-28-2014 End: 12-10-2014 Follow-up visit Roma Justin Gerardoananth DO Work Phone: Start: 07-28-2014 End: 07-29-2014 Urinalysis complete panel - Urine Roma Grajeda DO Work Phone: Start: 07-28-2014 End: 12-10-2014 Urnls dip stick/tablet rgnt non-auto w/o micrscp Roma Justin Gerardoananth DO Work Phone: Start: 05-21-2014 End: 05-21-2015 Arthrocentesis aspir&/inj major jt/bursa w/o us Roma Justin Nicci DO Work Phone: Start: 05-21-2014 End: 12-10-2014 Kenalog per 10 mg Roma Grajeda DO Work Phone: Start: 05-21-2014 End: 12-10-2014 Urnls dip stick/tablet rgnt non-auto w/o micrscp Roma Justin Gerardoananth, DO Work Phone: Start: 05-04-2014 End: 05-08-2014 *CBC with Differential Roma Grajeda DO Work Phone: Start: 05-04-2014 End: 12-10-2014 Follow Up Appt 3 months Roma Grajeda DO Work Phone: Measurement of occul t blood in stool specimen using immunoassay Dr. Roma Grajeda Work Phone: Urine culture Urine culture Dr. Roma Grajeda Work Phone: Urine culture Dr. Rmoa Grajeda Work Phone: Urine culture Dr. Roma Grajeda Work Phone: Plan of Treatment Date Care Activity Detail Author Start: 07-11-2027 Urine microalbumin profile DTaP,Tdap,Td Vaccine (2 - Td or Tdap) [facility] Start: 06-26-2025 Patient discharge [facility] Start: 06-26-2025 Consultation [facility] Start: 06-25-2025 Thyroid stimulating hormone measurement [facility] Start: 06-24-2025 Application of intermittent pneumatic compression device [facility] Start: 06-24-2025 Following clinical pathway protocol [facility] Start: 06-24-2025 Assessment of risk of venous thromboembolism [facility] Start: 06-24-2025 Inhalation therapy procedure [facility] Start: 06-24-2025 Insertion of catheter into peripheral vein [facility] Start: 06-24-2025 Measuring intake and output [facility] Start: 06-24-2025 Providing care according to standard [facility] Start: 06-24-2025 Provision of activity privileges [facility] Start: 06-24-2025 Referral for physical therapy [facility] Start: 06-24-2025 Referral to occupational therapist [facility] Start: 06-24-2025 Referral to service [facility] Start: 06-24-2025 [facility] Start: 06-24-2025 Verification routine [facility] Start: 06-24-2025 Admission procedure [facility] Start: 06-24-2025 Bacteria identified in Urine by Culture Urine Culture [facility] Start: 06-24-2025 [facility] Start: 06-11-2025 [facility] Start: 10-08-2024 Advance Directive Discussion Advance Directive Discussion [facility] Start: 06-08-2024 Covid-19 Vaccine () Covid-19 Vaccine () [facility] Start: 10-12-2023 Patient discharge [facility] Start: 10-11-2023 Development of care plan [facility] Start: 10-09-2023 Referral to service [facility] Start: 10-06-2023 [facility] Start: 10-05-2023 Developing a treatment plan [facility] Start: 10-05-2023 Development of care plan [facility] Start: 10-04-2023 [facility] Start: 10-04-2023 Recommendation to continue with treatment [facility] Start: 10-04-2023 Following clinical pathway protocol [facility] Start: 10-04-2023 Admission procedure [facility] Start: 10-04-2023 Measuring intake and output [facility] Start: 10-04-2023 Patient referral to dietitian [facility] Start: 10-04-2023 Referral to occupational therapist [facility] Start: 10-04-2023 Referral to service [facility] Start: 10-04-2023 Vital signs measurements [facility] Start: 10-04-2023 End: 10-04-2023 [facility] Start: 10-04-2023 Patient discharge [facility] Start: 09-29-2023 Following clinical pathway protocol [facility] Start: 09-29-2023 Assessment of risk of venous thromboembolism [facility] Start: 09-29-2023 Inhalation therapy procedure [facility] Start: 09-29-2023 Insertion of catheter into peripheral vein [facility] Start: 09-29-2023 Measuring intake and output [facility] Start: 09-29-2023 Providing care according to standard [facility] Start: 09-29-2023 Provision of activity privileges [facility] Start: 09-29-2023 Referral to occupational therapist [facility] Start: 09-29-2023 Referral to service [facility] Start: 09-29-2023 [facility] Start: 09-28-2023 End: 09-28-2023 Admission procedure [facility] Start: 12-11-2022 Blood chemistry [facility] Start: 12-10-2022 Patient discharge [facility] Start: 12-09-2022 Admission procedure [facility] Start: 12-08-2022 Application of intermittent pneumatic compression device [facility] Start: 12-08-2022 Assessment of risk of venous thromboembolism [facility] Start: 12-08-2022 Incentive spirometry [facility] Start: 12-08-2022 Insertion of catheter into peripheral vein [facility] Start: 12-08-2022 Measuring intake and output [facility] Start: 12-08-2022 Providing care according to standard [facility] Start: 12-08-2022 Provision of activity privileges [facility] Start: 12-08-2022 Referral to occupational therapist [facility] Start: 12-08-2022 Referral to service [facility] Start: 12-08-2022 [facility] Start: 12-08-2022 Following clinical pathway protocol [facility] Start: 12-08-2022 Verification routine [facility] Start: 12-08-2022 Admission procedure [facility] Start: 12-08-2022 [facility] Start: 12-08-2022 Patient referral to dietitian [facility] Start: 07-11-2017 End: 07-11-2017 Appointment Appointment [facility] Work Phone: Start: 12-14-2015 End: 12-14-2015 *CBC with Differential *CBC with Differential [facility] Work Phone: Start: 10-15-2015 End: 10-15-2015 *CBC with Differential *CBC with Differential [facility] Work Phone: Start: 10-15-2015 End: 10-15-2015 *CMP Complete Metabolic Panel *CMP Complete Metabolic Panel [facility] Work Phone: Start: 04-12-2015 End: 04-12-2015 *CBC with Differential *CBC with Differential [facility] Work Phone: Start: 04-12-2015 End: 04-13-2015 *CMP Complete Metabolic Panel *CMP Complete Metabolic Panel [facility] Work Phone: Start: 04-12-2015 End: 04-12-2015 25-Hydroxyvitamin D2+25-Hydroxyvitamin D3 mass conc *Vitamin D (Calciferol) [facility] Work Phone: Start: 04-12-2015 End: 04-13-2015 Iron mass conc *Iron [facility] Work Phone: Start: 04-12-2015 End: 04-13-2015 Thyrotropin Qn *TSH [facility] Work Phone: Start: 03-10-2015 End: 03-10-2015 Bacteria identified Cx Nom (U) *CUUR - Culture, Urine (Fishtail Count) [facility] Work Phone: Start: 03-10-2015 End: 03-29-2015 Urology Referral [facility] Work Phone: Start: 02-03-2015 End: 02-03-2015 Mammogram, Screening, both breasts Mammogram, Screening, both breasts [facility] Work Phone: Start: 12-22-2014 End: 12-23-2014 Gastroenterology Referral Gastroenterology Referral Jameson Ortega, [address], [address], [place], [address] [facility] Work Phone: Start: 12-07-2014 End: 12-09-2014 *B12FO Vitamin B12 and Folates *B12FO Vitamin B12 and Folates [facility] Work Phone: Start: 12-07-2014 End: 12-10-2014 *CBC with Differential *CBC with Differential [facility] Work Phone: Start: 12-07-2014 End: 12-09-2014 *CMP Complete Metabolic Panel *CMP Complete Metabolic Panel [facility] Work Phone: Start: 12-07-2014 End: 12-09-2014 Ferritin mass conc *Ferritin [facility] Work Phone: Start: 12-07-2014 End: 12-09-2014 Iron and Iron binding capacity panel - Serum or Plasma *IBC Iron & Total Iron Binding Capacity [facility] Work Phone: Start: 12-07-2014 End: 12-09-2014 Lipid 1996 panel *Lipid Profile [facility] Work Phone: Start: 12-07-2014 End: 12-09-2014 Thyrotropin Qn *TSH [facility] Work Phone: Start: 11-15-2014 Diabetes Screening Diabetes Screening [facility] Start: 08-17-2014 End: 12-10-2014 Bacteria identified Cx Nom (U) *CUUR - Culture, Urine (Fishtail Count) [facility] Work Phone: Start: 08-17-2014 End: 12-10-2014 Urnls dip stick/tablet rgnt non-auto w/o micrscp UA Dipstick (Office) [facility] Work Phone: Start: 07-28-2014 End: 12-10-2014 *CUUID - Urine CAMRON Culture - Identificatn *CUUID - Urine CAMRON Culture - Identificatn [facility] Work Phone: Start: 07-28-2014 End: 12-10-2014 Follow-up visit Follow Up as needed [facility] Work Phone: Start: 07-28-2014 End: 07-29-2014 Urinalysis complete panel - Urine *UAC- Urinalysis, Complete w/ Micro [facility] Work Phone: Start: 07-28-2014 End: 12-10-2014 Urnls dip stick/tablet rgnt non-auto w/o micrscp UA Dipstick (Office) [facility] Work Phone: Start: 05-21-2014 End: 12-10-2014 *CUUID - Urine CAMRON Culture - Identificatn *CUUID - Urine CAMRON Culture - Identificatn [facility] Work Phone: Start: 05-21-2014 End: 12-10-2014 Arthrocentesis aspir&/inj major jt/bursa w/o us Injection, Joint (major) [facility] Work Phone: Start: 05-21-2014 End: 12-10-2014 Dermatology Referral Dermatology Referral Marylin Janice, [address] [place], [address] [facility] Work Phone: Start: 05-21-2014 End: 12-10-2014 Triamcinolone acet inj NOS Kenalog per 10 mg [facility] Work Phone: Start: 05-21-2014 End: 12-10-2014 Urnls dip stick/tablet rgnt non-auto w/o micrscp UA Dipstick (Office) [facility] Work Phone: Start: 05-04-2014 End: 05-08-2014 *CBC with Differential *CBC with Differential [facility] Work Phone: Start: 05-04-2014 End: 12-10-2014 Follow Up Appt 3 months Follow Up Appt 3 months [facility] Work Phone: Start: 2001 Screening for osteoporosis Bone Density Screening [facility] Start: 1986 Pneumococcal Vaccine: 50+ (1 of 1 - PCV) Pneumococcal Vaccine: 50+ (1 of 1 - PCV) [facility] Start: 1986 Shingrix Vaccine (1 of 2) Shingrix Vaccine (1 of 2) [facility] Start: 1954 Anxiety Screening Anxiety Screening [facility] Start: 1954 Depression Screening Depression Screening [facility] Anion gap in Serum o r Plasma [facility] BUN/Creatinine ratio [facility] Calcium [Mass/volume ] in Serum or Plasma [facility] Carbon dioxide, tota l [Moles/volume] in Central venous blood [facility] Creatinine [Mass/vol ume] in Serum or Plasma [facility] Erythrocyte mean corpuscular volume determination [facility] Glucose [Mass/volume ] in Serum or Plasma [facility] Hematocrit [Volume Fraction] of Blood [facility] Hemoglobin [Mass/vol ume] in Blood [facility] Leukocytes [#/volume ] in Blood [facility] Magnesium measurement [facility] Mean corpuscular hemoglobin concentration determination [facility] Mean corpuscular hemoglobin determination [facility] Measurement of renal function [facility] Neutrophil count [facility] Neutrophil percent differential count [facility] Patient Education [facility] Work Phone: Patient referral [facility] Work Phone: Platelets [#/volume] in Blood [facility] Potassium measurement [facility] Red blood cell count [facility] Red cell distributio n width determination [facility] Serum chloride measurement [facility] Sodium measurement [facility] Urea nitrogen [Mass/volume] in Serum or Plasma [facility] Urine culture Urine Culture [facility] Urine culture [facility] Immunizations Immunization Date Immunization Notes Care Provider Fa cili 06-19-2024 Seasonal trivalent influenza vaccine, adjuvanted, preservative free Dr. Roma Grajead DO Work Phone: [facility] 06-17-2024 Influenza High-Dose Quadrivalent Dr. Roma Grajeda DO Work Phone: [facility] 10-10-2023 Covid (Spikevax) Dr. Roma her Work Phone: [facility] 07-04-2023 influenza, injectabl e, quadrivalent, preservative free Dr. Roma Grajeda Work Phone: [facility] 06-13-2023 Influenza High-Dose Quadrivalent Dr. Roma Grajeda Work Phone: [facility] 06-13-2023 RSV Adult Recombinan t (Arexvy) Dr. Roma Grajeda Work Phone: [facility] 07-23-2022 Covid Pfizer Bivalen t Booster Dr. Roma Grajeda Work Phone: [facility] 07-23-2022 Influenza High-Dose Quadrivalent Dr. Roma Grajeda Work Phone: [facility] 07-08-2022 influenza, injectabl e, quadrivalent, preservative free [facility] 07-08-2022 influenza, seasonal, injectable Dr. Roma Grajeda Work Phone: [facility] 08-11-2021 Covid (Moderna) Dr. Roma wadsworth Work Phone: [facility] 11-26-2020 Covid (Moderna) [facility] 10-29-2020 Covid (Moderna) [facility] 07-17-2020 influenza, injectabl e, quadrivalent, preservative free [facility] 07-17-2020 influenza, seasonal, injectable [facility] 07-21-2019 Influenza, high dose seasonal Dr. Roma Grajeda DO Work Phone: [facility] 07-21-2019 influenza, high dose seasonal, preservative-free Dr. Roma Grajeda Work Phone: [facility] 07-08-2018 Influenza, high dose seasonal Dr. Roma Grajeda DO Work Phone: [facility] 07-08-2018 influenza, high dose seasonal, preservative-free Dr. Roma Grajeda Work Phone: [facility] 07-11-2017 tetanus toxoid, redu erika diphtheria toxoid, and acellular pertussis vaccine, adsorbed Rupinder Zhu LPN [facility] Work Phone: 07-11-2017 [id number] Rupinder Zhu LPN [facility] Work Phone: 07-03-2017 Influenza, high dose seasonal Dr. Roma Grajeda DO Work Phone: [facility] 07-03-2017 influenza, high dose seasonal, preservative-free Dr. Roma Grajeda Work Phone: [facility] 06-25-2017 Influenza virus vaccine [facility] 07-08-2016 Influenza virus vaccine [facility] 06-19-2016 Influenza, high dose seasonal Dr. Roma Grajeda DO Work Phone: [facility] 06-19-2016 influenza, high dose seasonal, preservative-free Dr. Roma Grajeda Work Phone: [facility] 06-15-2015 Influenza virus vaccine [facility] Payers Date Payer Category Payer Self-pay [id number] 2017 Medicare (Managed Care) MMO [employer] PPO [id number] 2015 Medicare [id number] Medicare [id number] Unknown [id number] Unknown [id number] Unknown [id number] Unknown [id number] Unknown [id number] Unknown [id number] Unknown [id number] Unknown [id number] Unknown [id number] Social History Date Type Detail Facility Start: 08-27-2021 End: 10-04-2023 Tobacco smoking status NHIS Unknown if ever smoked [facility] Start: 11-22-2020 None [facility] Start: 01-30-2021 Spouse/ Signif icant Other [facility] Start: 11-22-2020 Non-smoker [facility] Start: 1935 Sex Assigned At Female W [facility] Start: 03-14-2019 End: 06-24-2025 Tobacco smoking status NHIS Never smoked tobacco [facility] Start: 03-14-2019 Tobacco use and exposure Smokeless tobacco non-user [facility] Start: 11-27-2024 Alcoholic beverage intake Current drinker of alcohol (finding) [facility] Start: 09-14-2020 End: 11-27-2024 History of Social function [facility] Start: 09-14-2020 End: 11-27-2024 Tobacco use panel [facility] Adult Depression Screening Assessment 0 [facility] Start: 03-22-2010 [facility] Start: 1935 Sex assigned at Not on file C [facility] Medical Equipment Procedure Code Equipment Code Equipment [...] /State Functional Status Date Assessment Result Facility 06-26-2025 Functional status Chair [facility] Work Phone: 10-12-2023 Functional status Ambulates;Up ad quinton [facility] Work Phone: 10-04-2023 Functional status Ambulates [facility] Work Phone: 12-10-2022 Functional status Ambulates [facility] Work Phone: Mental Status Date Assessment Result Facility 06-25-2025 Cognitive function Voice/Name [facility] Work Phone: 06-24-2025 Cognitive function Level Of Consciousness Awake [facility] Work Phone: 10-12-2023 Cognitive function Voice/Name [facility] Work Phone: 10-04-2023 Cognitive function Voice/Name [facility] Work Phone: 12-10-2022 Cognitive function Voice/Name [facility] Work Phone: Clinical Notes 12-08-2022 to 06-26-2025 Note Date & Type Note Facility 06-26-2025 Hospital Discharg e instructions Additional Instructions Date of Discharge: 06/26/25 [facility] Work Phone: 06-26-2025 Discharge summary Note Date/Time June 26, 2025 11:29am [facility] Medical Records Department [address] [place] [address] Discharge Summary 06/26/25 1123 MR#: [id number] Acct: [id number] Name: MARLI ROSALES Rep #:[id number] : 1935 89 From: Joni Cochran MD PCP: Dr. Roma Grajeda, DO Status:ADM HAIM Location: [address] Providers Date of Admission: 06/24/25 Date of Discharge: 06/26/25 Primary Care Physician: Dr. Roma Grajeda, DO Consultations 06/26/25 07:45 Consult: Infectious Disease Routine Consulting Provider: Yohannes Mccrary Reason for Consult: esbl E coli Uti EMERGENT Consult: No MD Notified: Yes Date Notified: 06/26/25 Time Notified: 07:45 Method of Notification: Text Reason For Visit: GENERALIZED WEAKNESS, UTI Diagnosis Discharge Diagnosis (1) Acute UTI: Status: Acute Code(s): N39.0 - Urinary tract infection, site not specified Plan Patient is an 89-year-old who was brought to the emergency department after apparently passing out while having a bowel movement. He was also found to haveUTI on admission admitted to regular nursing floor for further management 1. Vasovagal syncope ? Admitted to a monitored bed for continuous telemetry. Orthostatics obtained on admission came back negative. EKG demonstrated sinus rhythm with QTc of 440 2. Acute complicated cystitis ? Patient started on ceftriaxone urine culture sent ?06/26/2025; patient urine cultures so far positive for gram-negative arvind lactosefermenter colony count 80 -100 K identification and sensitivities to follow. Patient urine cultures came back positive for ESBL E. coli ceftriaxone discontinued patient started on ertapenem 1 g every 24 hours; consult placed to ID. ID recommended for patient to be discharged home on Bactrim DS for 3 days 3. Hypertension ? Blood pressure controlled, home medications continued with dose adjustment as needed ? 06/26/2025; patient blood pressure control not optimal this a.m. made further adjustment 4. Hypothyroidism ? Patient is on levothyroxine home dose continued 5. GERD ? On PPI continue 6. Anemia ? Secondary to chronic disorder monitoring H&H and transfuse if patient becomes symptomatic or hemoglobin falls below 7 7. DVT prophylaxis ? Subcu Lovenox Time spent in the patient's overall evaluation,decision-making process, review of diagnostic data, adjustment of management, discussion with other providers, nursing nursing and ancillary staff involved in patient's care documentation, 38 Minutes Medications at Discharge Home Medications amitriptyline 25 [...] tablet 20 mg PO DAILY BP 01/30/21 gabapentin 300 mg capsule 300 mg PO TID pain 07/04/24 trazodone 50 mg tablet 50 mg PO QHS sleep 07/04/24 cholecalciferol (vitamin D3) 125 mcg (5,000 unit) capsule 125 mcg PO DAILY supplement #0 caps 07/07/24 cephalexin 500 mg capsule 500 mg PO DAILY UTI prevention 11/22/24 cyanocobalamin (vitamin B-12) 1,000 mcg tablet 1,000 mcg PO DAILY #30 tabs 11/24/24 acetaminophen 500 mg tablet 1,000 mg PO Q8H PRN PRN arthritis pain 06/24/25 amlodipine 2.5 mg tablet 2.5 mg PO DAILY 06/24/25 cetirizine 10 mg capsule (Allergy Relief (cetirizine)) 10 mg PO DAILY allergies 06/24/25 cyclobenzaprine 10 mg tablet 10 mg PO TID PRN muscle spasms 06/24/25 hyoscyamine sulfate 0.125 mg tablet 0.125 mg PO TID PRN abd cramping 06/24/25 pantoprazole 40 mg tablet,delayed release 40 mg PO Q12H GERD 06/24/25 sulfamethoxazole 800 mg-trimethoprim 160 mg tablet (Bactrim DS) 1 tab PO BID #6 tabs 06/26/25 Physical Exam Narrative GENERAL: cooperative HEENT: Atraumatic; normocephalic EYES; Anicteric, Normal Conjunctiva NECK; supple, normal thyroid, RESPIRATORY: Diminished to auscultation CARDIOVASCULAR: Regular S1 S2, GI: soft, normoactive bowel sounds, : No Renal angle tenderness; EXTREMITIES: No edema, no clubbing, MUSCULOSKELETAL: no muscle wasting NEURO: Awake; no lateralizing signs. SKIN: No Rash PSYCH; Flat affect Weight / BMI Weight Weight: 69.9 kg Body Mass Index (BMI) 32.2 ABG / Lab / Microbiology Data 06/26/25 03:30 06/26/25 03:30 Laboratory: Laboratory Results - last 24 hr 06/26/25 03:30: WBC 5.2, RBC 3.25 L, Hgb 10.0 L, Hct 30.4 L, MCV 93.5, MCH 30.8,MCHC 32.9, RDW Std Deviation 48.1 H, RDW Coeff of Laury 14.1, Plt Count 275, MPV 9.2, Immature Gran % (Auto) 0.200, Neut % (Auto) 57.6, Lymph % (Auto) 27.0, Erie% (Auto) 10.0, Eos % (Auto) 4.2, Baso % (Auto) 1.0, Absolute Neuts (auto) 3.0, Absolute Lymphs (auto) 1.41, Nucleated RBC % 0, Sodium 136, Potassium 4.2, Chloride 102, Carbon Dioxide 21.6, Anion Gap 12, BUN 21 H, Creatinine 0.71, Estim Creat Clear Calc 42.40 L, Est GFR (MDRD) Non-Af 82, BUN/Creatinine Ratio 29.5 H, Glucose 87, Calcium 9.2, Phosphorus 3.6, Magnesium 2.2 Microbiology: Microbiology 06/24/25 13:10 Urine, Clean Catch Urine Culture - Preliminary Escherichia coli GPC Poss Enterococcus sp D/C Instructions Discharge Activity: Return to Normal Activity Call your doctor if you observe: Fever of 101 or Higher, Shortness of breath, Fainting spells and Chest pain DC O2, CPAP, BIPAP Needs Home O2 Discharge instructions: No Meaningful Use Info Meaningful Use Meaningful Use Diagnoses (Choose all that apply): None applicable Discharge Plan Admission Admit Date/Time: 06/24/25 14:06 Attending Provider: Joni Cochran Primary Care Provider: Roma Grajeda Consulting Providers: Huma Khan; Yohannes Mccrary Discharge Orders/Prescriptions Prescriptions: New sulfamethoxazole-trimethoprim [Bactrim DS] 800-160 mg tablet 1 tab PO BID Qty: 6 0RF Continued amitriptyline 25 MG tablet 25 mg PO QHS azelastine 1 SPRAY aerosol,spray 1 spray NASAL BID fluticasone propionate 1 SPRAY spray,suspension 1 spray NASAL BID tramadol 50 MG tablet 50 mg PO Q8H levothyroxine 75 MCG tablet 75 mcg PO DAILY@0600 Qty: 30 0RF Patient Comments: skip Sunday lisinopril 20 MG tablet 20 mg PO DAILY trazodone 50 mg tablet 50 mg PO QHS gabapentin 300 mg capsule 300 mg PO TID cholecalciferol (vitamin D3) 125 mcg (5,000 unit) Capsule 125 mcg PO DAILY Qty: 0 0RF cephalexin 500 mg capsule 500 mg PO DAILY cyanocobalamin (vitamin B-12) 1,000 mcg tablet 1,000 mcg PO DAILY Qty: 30 0RF amlodipine 2.5 mg tablet 2.5 mg PO DAILY Allergy Relief (cetirizine) 10 mg capsule 10 mg PO DAILY cyclobenzaprine 10 mg tablet 10 mg PO TID PRN (Reason: muscle spasms) hyoscyamine sulfate 0.125 mg tablet 0.125 mg PO TID PRN (Reason: abd cramping) acetaminophen 500 mg Tablet 1,000 mg PO Q8H PRN PRN (Reason: arthritis pain) pantoprazole 40 MG tablet 40 mg PO Q12H Referrals / Follow Up: Roma Grajeda DO [Primary Care Provider, Family Practice] Disposition Disposition (needs filled in before D/C Order can be placed): Assisted Living Charges/Coding Visit Charges Inpatient E&M: 59315 Disch Hosp >30min 06/26/25 1129 <Electronically signed by Joni Cochran MD> Cosigner Signature (if applicable): CC: Dr. Joni Cochran MD; Dr. Roma Grajeda DO~ Signed [facility] Work Phone: 1(319) 192-601409-19-2025 Consult note Author Yohannes Mccrary [facility] Note Date/Time June 26, 2025 10:50am [facility] Medical Records Department [address] [place] [address] Consultation - Infectious Dx 06/26/25 1028 MR#: [id number] Acct: [id number] Name: MARLI ROSALES Rep #:[id number] : 1935 89 From: Yohannes acevedo MD PCP: Dr. Roma Grajeda, DO Status:ADM HAIM Location: [place] [id number] Assessment & Plan Assessment/Plan (1) Acute UTI: PLAN: Ucx with esbl ecoli, small amount enterococcus-like. Feeling better, on ertapenem now. Has nitrofurantoin allergy. Plan for discharge with 3 days po bactrim DS bid. Will follow, thank you HPI Consult Data Date of Consult: 06/26/25 HPI Narrative Reason for Consultation: uti HPI Narrative: MARLI ROSALES, is a 89 F who presented 06/24 after syncopal episode. Had some weakness and increased urine frequency but no dysuria recently. No fever, no abd pain, no cough or dyspnea. Came to ED, admitted on ceftriaxone then changedto ertapenem. Feeling better this AM. Full ROS performed and neg except as noted above. [facility] Medical History Irritable bowel syndrome Spinal stenosis [...] 0.125 mg tablet 0.125 mg PO TID WI N abd cramping 06/24/25 Unknown History pantoprazole [...] Smoking Status: Never smoker alcohol intake: never Physical Exam Const alert and no apparent distress General Appearance: cooperative HEENT normocephalic and head/scalp atraumatic Eyes PERRL and EOMs intact bilaterally Neck supple and No nodes Resp normal air movement and clear to auscultation bilaterally Cardio regular rate and regular rhythm GI soft to palpation, non-tender and non-distended Extremity General Extremity: Negative for edema Skin no rashes or lesions noted Neuro CN's II-XII intact bilaterally Lab / Micro Data Attestation: I reviewed the patient's lab results. 06/26/25 03:30 06/26/25 03:30 Labs: Laboratory Results - last 24 hr 06/26/25 03:30: WBC 5.2, RBC 3.25 L, Hgb 10.0 L, Hct 30.4 L, MCV 93.5, MCH 30.8,MCHC 32.9, RDW Std Deviation 48.1 H, RDW Coeff of Laury 14.1, Plt Count 275, MPV 9.2, Immature Gran % (Auto) 0.200, Neut % (Auto) 57.6, Lymph % (Auto) 27.0, Erie% (Auto) 10.0, Eos % (Auto) 4.2, Baso % (Auto) 1.0, Absolute Neuts (auto) 3.0, Absolute Lymphs (auto) 1.41, Nucleated RBC % 0, Sodium 136, Potassium 4.2, Chloride 102, Carbon Dioxide 21.6, Anion Gap 12, BUN 21 H, Creatinine 0.71, Estim Creat Clear Calc 42.40 L, Est GFR (MDRD) Non-Af 82, BUN/Creatinine Ratio 29.5 H, Glucose 87, Calcium 9.2, Phosphorus 3.6, Magnesium 2.2 Micro: Microbiology 06/24/25 13:10 Urine, Clean Catch Urine Culture - Preliminary Escherichia coli GPC Poss Enterococcus sp 06/26/25 1050 <Electronically signed by Yohannes Mccrary MD> Cosigner Signature (if applicable): CC: Dr. Roma Grajeda, ~ Signed [facility] Work Phone: 1(635) 854-647009-19-2025 Discharge summary [facility] Medical Records Department [address] [place] [address] Discharge Summary 06/26/25 1123 MR#: [id number] Acct: [id number] Name: MARLI ROSALES Rep #:[id number] : 1935 89 From: Joni Cochran MD PCP: Dr. Roma Grajeda DO Status:ADM HAIM Location: [place] [address] Providers Date of Admission: 06/24/25 Date of Discharge: 06/26/25 Primary Care Physician: Dr. Roma Grajeda DO Consultations 06/26/25 07:45 Consult: Infectious Disease Routine Consulting Provider: Yohannes Mccrary Reason for Consult: esbl E coli Uti EMERGENT Consult: No MD Notified: Yes Date Notified: 06/26/25 Time Notified: 07:45 Method of Notification: Text Reason For Visit: GENERALIZED WEAKNESS, UTI Diagnosis Discharge Diagnosis (1) Acute UTI: Status: Acute Code(s): N39.0 - Urinary tract infection, site not specified Plan Patient is an 89-year-old who was brought to the emergency department after apparently passing out while having a bowel movement. He was also found to have[facility]I [facility] 1. Vasovagal syncope ? Admitted to a monitored bed for continuous telemetry. Orthostatics obtained on admission came back negative. EKG demonstrated sinus rhythm with QTc of 440 2. Acute complicated cystitis ? Patient started on ceftriaxone urine culture sent ?06/26/2025; patient urine cultures so far positive for gram-negative arvind lactosefermenter colony count 80 -100 K identification and sensitivities to follow. Patient urine cultures came back positive for ESBL E. coli ceftriaxone discontinued patient started on ertapenem 1 g every 24 hours; consult placed to ID. ID recommended for patient to be discharged home on Bactrim DS for 3 days 3. Hypertension ? Blood pressure controlled, home medications continued with dose adjustment as needed ? 06/26/2025; patient blood pressure control not optimal this a.m. made further adjustment 4. Hypothyroidism ? Patient is on levothyroxine home dose continued 5. GERD ? On PPI continue 6. Anemia ? Secondary to chronic disorder monitoring H&H and transfuse if patient becomes symptomatic or hemoglobin falls below 7 7. DVT prophylaxis ? Subcu Lovenox Time spent in the patient's overall evaluation,decision-making process, review of diagnostic data, adjustment of management, discussion with other providers, nursing nursing and ancillary staff involved in patient's care documentation, 38 Minutes Medications at Discharge Home Medications amitriptyline 25 [...] tablet 20 mg PO DAILY BP 01/30/21 gabapentin 300 mg capsule 300 mg PO TID pain 07/04/24 trazodone 50 mg tablet 50 mg PO QHS sleep 07/04/24 cholecalciferol (vitamin D3) 125 mcg (5,000 unit) capsule 125 mcg PO DAILY supplement #0 caps 07/07/24 cephalexin 500 mg capsule 500 mg PO DAILY UTI prevention 11/22/24 cyanocobalamin (vitamin B-12) 1,000 mcg tablet 1,000 mcg PO DAILY #30 tabs 11/24/24 acetaminophen 500 mg tablet 1,000 mg PO Q8H PRN PRN arthritis pain 06/24/25 amlodipine 2.5 mg tablet 2.5 mg PO DAILY 06/24/25 cetirizine 10 mg capsule (Allergy Relief (cetirizine)) 10 mg PO DAILY allergies 06/24/25 cyclobenzaprine 10 mg tablet 10 mg PO TID PRN muscle spasms 06/24/25 hyoscyamine sulfate 0.125 mg tablet 0.125 mg PO TID PRN abd cramping 06/24/25 pantoprazole 40 mg tablet,delayed release 40 mg PO Q12H GERD 06/24/25 sulfamethoxazole 800 mg-trimethoprim 160 mg tablet (Bactrim DS) 1 tab PO BID #6 tabs 06/26/25 Physical Exam Narrative GENERAL: cooperative HEENT: Atraumatic; normocephalic EYES; Anicteric, Normal Conjunctiva NECK; supple, normal thyroid, RESPIRATORY: Diminished to auscultation CARDIOVASCULAR: Regular S1 S2, GI: soft, normoactive bowel sounds, : No Renal angle tenderness; EXTREMITIES: No edema, no clubbing, MUSCULOSKELETAL: no muscle wasting NEURO: Awake; no lateralizing signs. SKIN: No Rash PSYCH; Flat affect Weight / BMI Weight Weight: 69.9 kg Body Mass Index (BMI) 32.2 ABG / Lab / Microbiology Data 06/26/25 03:30 06/26/25 03:30 Laboratory: Laboratory Results - last 24 hr 06/26/25 03:30: WBC 5.2, RBC 3.25 L, Hgb 10.0 L, Hct 30.4 L, MCV 93.5, MCH 30.8,MCHC 32.9, RDW Std Deviation 48.1 H, RDW Coeff of Laury 14.1, Plt Count 275, MPV 9.2, Immature Gran % (Auto) 0.200, Neut % (Auto) 57.6, Lymph % (Auto) 27.0, Erie% (Auto) 10.0, Eos % (Auto) 4.2, Baso % (Auto) 1.0, AbsoluteNeuts (auto) 3.0, Absolute Lymphs (auto) 1.41, Nucleated RBC % 0, Sodium 136, Potassium 4.2, Chloride 102, Carbon Dioxide 21.6, Anion Gap 12, BUN 21 H, Creatinine 0.71, Estim Creat Clear Calc 42.40 L, Est GFR (MDRD) Non-Af 82, BUN/Creatinine Ratio 29.5 H, Glucose 87, Calcium 9.2, Phosphorus 3.6, Magnesium 2.2 Microbiology: Microbiology 06/24/25 13:10 Urine, Clean Catch Urine Culture - Preliminary Escherichia coli GPC Poss Enterococcus sp D/C Instructions Discharge Activity: Return to Normal Activity Call your doctor if you observe: Fever of 101 or Higher, Shortness of breath, Fainting spells and Chest pain DC O2, CPAP, BIPAP Needs Home O2 Discharge instructions: No Meaningful Use Info Meaningful Use Meaningful Use Diagnoses (Choose all that apply): None applicable Discharge Plan Admission Admit Date/Time: 06/24/25 14:06 Attending Provider: Joni Cochran Primary Care Provider: Roma Grajeda Consulting Providers: Huma Khan; Yohannes Mccrary Discharge Orders/Prescriptions Prescriptions: New sulfamethoxazole-trimethoprim [Bactrim DS] 800-160 mg tablet 1 tab PO BID Qty: 6 0RF Continued amitriptyline 25 MG tablet 25 mg PO QHS azelastine 1 SPRAY aerosol,spray 1 spray NASAL BID fluticasone propionate 1 SPRAY spray,suspension 1 spray NASAL BID tramadol 50 MG tablet 50 mg PO Q8H levothyroxine 75 MCG tablet 75 mcg PO DAILY@0600 Qty: 30 0RF Patient Comments: skip Sunday lisinopril 20 MG tablet 20 mg PO DAILY trazodone 50 mg tablet 50 mg PO QHS gabapentin 300 mg capsule 300 mg PO TID cholecalciferol (vitamin D3) 125 mcg (5,000 unit) Capsule 125 mcg PO DAILY Qty: 0 0RF cephalexin 500 mg capsule 500 mg PO DAILY cyanocobalamin (vitamin B-12) 1,000 mcg tablet 1,000 mcg PO DAILY Qty: 30 0RF amlodipine 2.5 mg tablet 2.5 mg PO DAILY Allergy Relief (cetirizine) 10 mg capsule 10 mg PO DAILY cyclobenzaprine 10 mg tablet 10 mg PO TID PRN (Reason: muscle spasms) hyoscyamine sulfate 0.125 mg tablet 0.125 mg PO TID PRN (Reason: abd cramping) acetaminophen 500 mg Tablet 1,000 mg PO Q8H PRN PRN (Reason: arthritis pain) pantoprazole 40 MG tablet 40 mg PO Q12H Referrals / Follow Up: Roma Grajeda DO [Primary Care Provider, Family Practice] Disposition Disposition (needs filled in before D/C Order can be placed): Assisted Living Charges/Coding Visit Charges Inpatient E&M: 62936 Disch Hosp >30min 06/26/25 1129 Cosigner Signature (if applicable): CC: Dr. Joni Cochran MD; Dr. Roma Grajeda DO~ Signed [facility]09-19-2025 [facility] Medical Records Department [address] [place] [address] Discharge Summary 06/26/25 1123 MR#: [id number] Acct: [id number] Name: MARLI ROSALES Rep #: [id number] : 1935 89 From: Joni Cochran MD PCP: Dr. Roma Grajeda, DO Status:ADM HAIM Location: [place] [address] Providers Date of Admission: 06/24/25 Date of Discharge: 06/26/25 Primary Care Physician: Dr. Roma Grajeda, DO Consultations 06/26/25 07:45 Consult: Infectious Disease Routine Consulting Provider: Yohannes Mccrary Reason for Consult: esbl E coli Uti EMERGENT Consult: No MD Notified: Yes Date Notified: 06/26/25 Time Notified: 07:45 Method of Notification: Text Reason For Visit: GENERALIZED WEAKNESS, UTI Diagnosis Discharge Diagnosis (1) Acute UTI: Status: Acute Code(s): N39.0 - Urinary tract infection, site not specified Plan Patient is an 89-year-old who was brought to the emergency department after apparently passing out while having a bowel movement. He was also found to have UTI on admission admitted to regular nursing floor for further management 1. Vasovagal syncope ??? Admitted to a monitored bed for continuous telemetry. Orthostatics obtained on admission came back negative. EKG demonstrated sinus rhythm with QTc of 440 2. Acute complicated cystitis ??? 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 Patient urine cultures came back positive for ESBL E. coli ceftriaxone discontinued patient started on ertapenem 1 g every 24 hours; consult placed to ID. ID recommended for patient to be discharged home on Bactrim DS for 3 days 3. Hypertension ??? Blood pressure controlled, home medications continued with dose adjustment as needed ??? 06/26/2025; patient blood pressure control not optimal this a.m. made further adjustment 4. Hypothyroidism ??? Patient is on levothyroxine home dose continued 5. GERD ??? On PPI continue 6. Anemia ??? Secondary to chronic disorder monitoring H H and transfuse if patient becomes symptomatic or hemoglobin falls below 7 7. DVT prophylaxis ??? Subcu Lovenox Time spent in the patient's overall evaluation,decision-making process, review of diagnostic data, adjustment of management, discussion with other providers, nursing nursing and ancillary staff involved in patient's care documentation, 38 Minutes Medications at Discharge Home Medications amitriptyline 25 [...] tablet 20 mg PO DAILY BP 01/30/21 gabapentin 300 mg capsule 300 mg PO TID pain 07/04/24 trazodone 50 mg tablet 50 mg PO QHS sleep 07/04/24 cholecalciferol (vitamin D3) 125 mcg (5,000 unit) capsule 125 mcg PO DAILY supplement #0 caps 07/07/24 cephalexin 500 mg capsule 500 mg PO DAILY UTI prevention 11/22/24 cyanocobalamin (vitamin B-12) 1,000 mcg tablet 1,000 mcg PO DAILY #30 tabs 11/24/24 acetaminophen 500 mg tablet 1,000 mg PO Q8H PRN PRN arthritis pain 06/24/25 amlodipine 2.5 mg tablet 2.5 mg PO DAILY 06/24/25 cetirizine 10 mg capsule (Allergy Relief (cetirizine)) 10 mg PO DAILY allergies 06/24/25 cyclobenzaprine 10 mg tablet 10 mg PO TID PRN muscle spasms 06/24/25 hyoscyamine sulfate 0.125 mg tablet 0.125 mg PO TID PRN abd cramping 06/24/25 pantoprazole 40 mg tablet,delayed release 40 mg PO Q12H GERD 06/24/25 sulfamethoxazole 800 mg-trimethoprim 160 mg tablet (Bactrim DS) 1 tab PO BID #6 tabs 06/26/25 Physical Exam Narrative GENERAL: cooperative HEENT: Atraumatic; normocephalic EYES; Anicteric, Normal Conjunctiva NECK; supple, normal thyroid, RESPIRATORY: Diminished to auscultation CARDIOVASCULAR: Regular S1 S2, GI: soft, normoactive bowel sounds, : No Renal angle tenderness; EXTREMITIES: No edema, no clubbing, MUSCULOSKELETAL: no muscle wasting NEURO: Awake; no lateralizing signs. SKIN: No Rash PSYCH; Flat affect Weight / BMI Weight Weight: 69.9 kg Body Mass Index (BMI) 32.2 ABG / Lab / Microbiology Data 06/26/25 03:30 06/26/25 03:30 Laboratory: Laboratory Results - last 24 hr 06/26/25 03:30: WBC 5.2, RBC 3.25 L, Hgb 10.0 L, Hct 30.4 L, MCV 93.5, MCH 30.8, MCHC 32.9, RDW Std Deviation 48.1 H, RDW Coeff of Laury 14.1, Plt Count 275, MPV 9.2, Immature Gran % (Auto) 0.200, Neut % (Auto) 57.6, Lymph % (Auto) 27.0, Erie % (Auto) 10.0, Eos % (Auto) 4.2, Baso % (Auto) 1.0, Absolute Neuts (auto) 3.0, Absolute Lymphs (auto) 1.4 (more content not included)...[facility]09-19-2025 Progress note Author Joni Cochran [facility] Note Date/Time June 26, 2025 9:10am [facility] Medical Records Department [address] [place] [address] Progress Note - Hospitalist 06/26/25 0723 MR#: [id number] Acct: [id number] Name: MARLI ROSALES Rep #:[id number] : 1935 89 From: Joni Cochran MD PCP: Dr. Roma Grajeda, DO Status:ADM HAIM Location: [address] Reason for Visit Chief Complaint: Generalized weakness Subjective Subjective ?06/26/2025; patient urine cultures came back positive for ESBL E. coli ceftriaxone discontinued patient started on ertapenem 1 g every 24 hours. Patient blood pressure control not optimal this a.m. made adjustment Objective Data Objective Data Vital Signs: Vital Signs Temp Pulse Resp BP Pulse Ox O2 Del Method 97.6 F L 75 16 142/64 H 93 Room Air 06/26/25 02:12 06/26/25 02:12 06/26/25 02:12 06/26/25 02:12 06/26/25 02:12 06/26/25 02:12 Oxygen Delivery Method Room Air Weight: 69.9 kg Body Mass Index (BMI) 32.2 Intake & Output: Intake and Output for Last 24 Hours 06/24/25 06/25/25 06/26/25 23:59 23:59 23:59 Intake Total 920 / 920 845 / 1045 350 / 350 Balance 920 / 920 845 / 1045 350 / 350 Lab / Micro Data 06/26/25 03:30 06/26/25 03:30 Labs: Laboratory Results - last 24 hr 06/26/25 03:30: WBC 5.2, RBC 3.25 L, Hgb 10.0 L, Hct 30.4 L, MCV 93.5, MCH 30.8,MCHC 32.9, RDW Std Deviation 48.1 H, RDW Coeff of Laury 14.1, Plt Count 275, MPV 9.2, Immature Gran % (Auto) 0.200, Neut % (Auto) 57.6, Lymph % (Auto) 27.0, Erie% (Auto) 10.0, Eos % (Auto) 4.2, Baso % (Auto) 1.0, Absolute Neuts (auto) 3.0, Absolute Lymphs (auto) 1.41, Nucleated RBC % 0, Sodium 136, Potassium 4.2, Chloride 102, Carbon Dioxide 21.6, Anion Gap 12, BUN 21 H, Creatinine 0.71, Estim Creat Clear Calc 42.40 L, Est GFR (MDRD) Non-Af 82, BUN/Creatinine Ratio 29.5 H, Glucose 87, Calcium 9.2, Phosphorus 3.6, Magnesium 2.2 Micro: Microbiology 06/24/25 13:10 Urine, Clean Catch Urine Culture - 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 SKIN: No Rash PSYCH; Flat affect Assessment & Plan Assessment/Plan (1) Generalized weakness: (2) Abnormal urinalysis: (3) Vasovagal near syncope: PLAN: Plan Patient is an 89-year-old who was brought to the emergency department after apparently passing out while having a bowel movement. He was also found to haveUTI on admission admitted to regular nursing floor for further management 1. Vasovagal syncope ? Admitted to a monitored bed for continuous telemetry. Orthostatics obtained on admission came back negative. EKG demonstrated sinus rhythm with QTc of 440 2. Acute complicated cystitis ? Patient started on ceftriaxone urine culture sent ?06/26/2025; patient urine cultures so far positive for gram-negative arvind lactosefermenter colony count 80 -100 K identification and sensitivities to follow. Patient urine cultures came back positive for ESBL E. coli ceftriaxone discontinued patient started on ertapenem 1 g every 24 hours; consult placed to ID 3. Hypertension ? Blood pressure controlled, home medications continued with dose adjustment as needed ? 06/26/2025; patient blood pressure control not optimal this a.m. made further adjustment 4. Hypothyroidism ? Patient is on levothyroxine home dose continued 5. GERD ? On PPI continue 6. Anemia ? Secondary to chronic disorder monitoring H&H and transfuse if patient becomes symptomatic or hemoglobin falls below 7 7. DVT prophylaxis ? Subcu Lovenox Time spent in the patient's overall evaluation,decision-making process, review of diagnostic data, adjustment of management, discussion with other providers, nursing nursing and ancillary staff involved in patient's care documentation, 38 Minutes Charges/Coding Visit Charges Inpatient E&M: 32610 Subs Hosp L2 06/26/25 0910 <Electronically signed by Joni Cochran MD> Cosigner Signature (if applicable): CC: ~ Signed [facility] Work Phone: [phone] 409-525409-19-2025 Consult note [facility] Medical Records Department [address] [place] [address] Consultation - Infectious Dx 06/26/25 1028 MR#: [id number] Acct: [id number] Name: MARLI ROSALES Rep #:[id number] : 1935 89 From: Yohannes acevedo MD PCP: Dr. Roma Grajeda, DO Status:ADM HAIM Location: MS3 GG345-3 Assessment & Plan Assessment/Plan (1) Acute UTI: PLAN: Ucx with esbl ecoli, small amount enterococcus-like. Feeling better, on ertapenem now. Has nitrofurantoin allergy. Plan for discharge with 3 days po bactrim DS bid. Will follow, thank you HPI Consult Data Date of Consult: 06/26/25 HPI Narrative Reason for Consultation: uti HPI Narrative: MARLI ROSALES, is a 89 F who presented 06/24 after syncopal episode. Had some weakness and increased urine frequency but no dysuria recently. No fever, no abd pain, no cough or dyspnea. Came to ED, admitted on ceftriaxone then changedto ertapenem. Feeling better this AM. Full ROS performed and neg except as noted above. [facility] Medical History Irritable bowel syndrome Spinal stenosis [...] 0.125 mg tablet 0.125 mg PO TID WI N abd cramping 06/24/25 Unknown History pantoprazole [...] Smoking Status: Never smoker alcohol intake: never Physical Exam Const alert and no apparent distress General Appearance: cooperative HEENT normocephalic and head/scalp atraumatic Eyes PERRL and EOMs intact bilaterally Neck supple and No nodes Resp normal air movement and clear to auscultation bilaterally Cardio regular rate and regular rhythm GI soft to palpation, non-tender and non-distended Extremity General Extremity: Negative for edema Skin no rashes or lesions noted Neuro CN's II-XII intact bilaterally Lab / Micro Data Attestation: I reviewed the patient's lab results. 06/26/25 03:30 06/26/25 03:30 Labs: Laboratory Results - last 24 hr 06/26/25 03:30: WBC 5.2, RBC 3.25 L, Hgb 10.0 L, Hct 30.4 L, MCV 93.5, MCH 30.8,MCHC 32.9, RDW Std Deviation 48.1 H, RDW Coeff of Laury 14.1, Plt Count 275, MPV 9.2, Immature Gran % (Auto) 0.200, Neut % (Auto) 57.6, Lymph % (Auto) 27.0, Erie% (Auto) 10.0, Eos % (Auto) 4.2, Baso % (Auto) 1.0, AbsoluteNeuts (auto) 3.0, Absolute Lymphs (auto) 1.41, Nucleated RBC % 0, Sodium 136, Potassium 4.2, Chloride 102, Carbon Dioxide 21.6, Anion Gap 12, BUN 21 H, Creatinine 0.71, Estim Creat Clear Calc 42.40 L, Est GFR (MDRD) Non-Af 82, BUN/Creatinine Ratio 29.5 H, Glucose 87, Calcium 9.2, Phosphorus 3.6, Magnesium 2.2 Micro: Microbiology 06/24/25 13:10 Urine, Clean Catch Urine Culture - Preliminary Escherichia coli GPC Poss Enterococcus sp 06/26/25 1050 Cosigner Signature (if applicable): CC: Dr. Roma Grajeda, DO~ Signed [facility]09-19-2025 [facility] [address] [place] [address] Progress Note - Hospitalist 06/26/25 0723 MR#: [id number] Acct: [id number] Name: MARLI ROSALES Rep #:[id number] : 1935 89 From: Joni Cochran MD PCP: Dr. Roma Grajeda, DO Status:ADM HAIM Location: [place] [address] Reason for Visit Chief Complaint: Generalized weakness Subjective Subjective ?06/26/2025; patient urine cultures came back positive for ESBL E. coli ceftriaxone discontinued patient started on ertapenem 1 g every 24 hours. Patient blood pressure control not optimal this a.m. made adjustment Objective Data Objective Data Vital Signs: Vital Signs Temp Pulse Resp BP Pulse Ox O2 Del Method 97.6 F L 75 16 142/64 H 93 Room Air 06/26/25 02:12 06/26/25 02:12 06/26/25 02:12 06/26/25 02:12 06/26/25 02:12 06/26/25 02:12 Oxygen Delivery Method Room Air Weight: 69.9 kg Body Mass Index (BMI) 32.2 Intake & Output: Intake and Output for Last 24 Hours 06/24/25 06/25/25 06/26/25 23:59 23:59 23:59 Intake Total 920 / 920 845 / 1045 350 / 350 Balance 920 / 920 845 / 1045 350 / 350 Lab / Micro Data 06/26/25 03:30 06/26/25 03:30 Labs: Laboratory Results - last 24 hr 06/26/25 03:30: WBC 5.2, RBC 3.25 L, Hgb 10.0 L, Hct 30.4 L, MCV 93.5, MCH 30.8,MCHC 32.9, RDW Std Deviation 48.1 H, RDW Coeff of Laury 14.1, Plt Count 275, MPV 9.2, Immature Gran % (Auto) 0.200, Neut % (Auto) 57.6, Lymph % (Auto) 27.0, Erie% (Auto) 10.0, Eos % (Auto) 4.2, Baso % (Auto) 1.0, AbsoluteNeuts (auto) 3.0, Absolute Lymphs (auto) 1.41, Nucleated RBC % 0, Sodium 136, Potassium 4.2, Chloride 102, Carbon Dioxide 21.6, Anion Gap 12, BUN 21 H, Creatinine 0.71, Estim Creat Clear Calc 42.40 L, Est GFR (MDRD) Non-Af 82, BUN/Creatinine Ratio 29.5 H, Glucose 87, Calcium 9.2, Phosphorus 3.6, Magnesium 2.2 Micro: Microbiology 06/24/25 13:10 Urine, Clean Catch Urine Culture - 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 SKIN: No Rash PSYCH; Flat affect Assessment & Plan Assessment/Plan (1) Generalized weakness: (2) Abnormal urinalysis: (3) Vasovagal near syncope: PLAN: Plan Patient is an 89-year-old who was brought to the emergency department after apparently passing out while having a bowel movement. He was also found to haveUTI [facility]. Vasovagal syncope ? Admitted to a monitored bed for continuous telemetry. Orthostatics obtained on admission came back negative. EKG demonstrated sinus rhythm with QTc of 440 2. Acute complicated cystitis ? Patient started on ceftriaxone urine culture sent ?06/26/2025; patient urine cultures so far positive for gram-negative arvind lactosefermenter colony count 80 -100 K identification and sensitivities to follow. Patient urine cultures came back positive for ESBL E. coli ceftriaxone discontinued patient started on ertapenem 1 g every 24 hours; consult placed to ID 3. Hypertension ? Blood pressure controlled, home medications continued with dose adjustment as needed ? 06/26/2025; patient blood pressure control not optimal this a.m. made further adjustment 4. Hypothyroidism ? Patient is on levothyroxine home dose continued 5. GERD ? On PPI continue 6. Anemia ? Secondary to chronic disorder monitoring H&H and transfuse if patient becomes symptomatic or hemoglobin falls below 7 7. DVT prophylaxis ? Subcu Lovenox Time spent in the patient's overall evaluation,decision-making process, review of diagnostic data, adjustment of management, discussion with other providers, nursing nursing and ancillary staff involved in patient's care documentation, 38 Minutes Charges/Coding Visit Charges Inpatient E&M: 57352 Subs Hosp L2 06/26/25 0910 Cosigner Signature (if applicable): CC: ~ Signed [facility]09-18-2025 Progress note Author Joni Cochran [facility] Note Date/Time June 25, 2025 8:06am [facility] Medical Records Department [address] [place] [address] Progress Note - Hospitalist 06/25/2529 MR#: [id number] Acct: [id number] Name: MARLI ROSALES Rep #:[id number] : 1935 89 From: Joni Cochran MD PCP: Dr. Roma Grajeda, DO Status:ADM HAIM Location: [place] [address] Reason for Visit Chief Complaint: Generalized weakness Subjective Subjective Patient is an 89-year-old who was brought to the emergency department after apparently passing out while having a bowel movement. He was also found to haveUTI on admission admitted to regular nursing floor for further management Objective Data Objective Data Vital Signs: Vital Signs Temp Pulse Resp BP Pulse Ox O2 Del Method 97.4 F L 66 16 149/72 H 98 Room Air 06/25/25 06:05 06/25/25 06:05 06/25/25 06:05 06/25/25 06:05 06/25/25 06:05 06/25/25 06:05 Oxygen Delivery Method Room Air Weight: 69.9 kg Body Mass Index (BMI) 32.2 Intake & Output: Intake and Output for Last 24 Hours 06/23/25 06/24/25 06/25/25 23:59 23:59 23:59 Intake Total 920 / 920 795 / 795 Balance 920 / 920 795 / 795 Lab / Micro Data 06/25/25 05:49 06/25/25 05:49 Labs: Laboratory Results - last 24 hr 06/24/25 10:50: WBC 6.3, RBC 3.63 L, Hgb 10.8 L, Hct 34.5 L, MCV 95.0, MCH 29.8,MCHC 31.3 L, RDW Std Deviation 49.1 H, RDW Coeff of Laury 13.9, Plt Count 310, MPV9.0, Immature Gran % (Auto) 0.300, Neut % (Auto) 60.0, Lymph % (Auto) 26.2, Erie% (Auto) 10.0, Eos % (Auto) 2.7, Baso [...] Sl. Cloudy, Urine pH 6.5, Ur Specific Turton 1.010, Urine Protein 30 H, Urine Glucose (UA) Normal, Urine Ketones Negative, Urine Occult Blood 10 H, Urine Nitrite Positive H, Urine Bilirubin Negative, Urine Urobilinogen Normal, Ur Leukocyte Esterase 500 H, Urine RBC 0 SEEN, Urine WBC 25-50 SEEN, Ur Squamous Epith Cells 5-10 SEEN, UrineBacteria 0 SEEN, Urine Mucus 0 SEEN 06/25/25 05:49: WBC 5.8, RBC 3.69 L, Hgb 11.1 L, Hct 34.3 L, MCV 93.0, MCH 30.1,MCHC 32.4, RDW Std Deviation 47.8 H, RDW Coeff of Laury 13.9, Plt Count 283, MPV 8.8, Immature Gran % (Auto) 0.200, Neut % (Auto) 65.4, Lymph % (Auto) 21.1, Erie% (Auto) 9.2, Eos % (Auto) 3.1, Baso % (Auto) 1.0, Absolute Neuts (auto) 3.8, Absolute Lymphs (auto) 1.22, Nucleated RBC % 0, Sodium 138, Potassium 4.5, Chloride 104, Carbon Dioxide 22.9, Anion Gap 12, BUN 22 H, Creatinine 0.82, Estim Creat Clear Calc 41.37 L, Est GFR (MDRD) Non-Af 69, BUN/Creatinine Ratio 26.7 H, Glucose 89, Calcium 9.4, Magnesium 2.4 H, TSH 1.280 Physical Exam Narrative GENERAL: cooperative HEENT: Atraumatic; normocephalic EYES; Anicteric, Normal Conjunctiva NECK; supple, normal thyroid, RESPIRATORY: Diminished to auscultation CARDIOVASCULAR: Regular S1 S2, GI: soft, normoactive bowel sounds, : No Renal angle tenderness; EXTREMITIES: No edema, no clubbing, MUSCULOSKELETAL: no muscle wasting NEURO: Awake; no lateralizing signs. SKIN: No Rash PSYCH; Flat affect Assessment & Plan Assessment/Plan (1) Generalized weakness: (2) Abnormal urinalysis: (3) Vasovagal near syncope: PLAN: Plan Patient is an 89-year-old who was brought to the emergency department after apparently passing out while having a bowel movement. He was also found to haveUTI on admission admitted to regular nursing floor for further management 1. Vasovagal syncope ? Admitted to a monitored bed for continuous telemetry. Orthostatics obtained on admission came back negative. EKG demonstrated sinus rhythm with QTc of 440 2. Acute complicated cystitis ? Patient started on ceftriaxone urine culture sent 3. Hypertension ? Blood pressure controlled, home medications continued with dose adjustment as needed 4. Hypothyroidism ? Patient is on levothyroxine home dose continued 5. GERD ? On PPI continue 6. DVT prophylaxis ? Subcu Lovenox Time spent in the patient's overall evaluation,decision-making process, review of diagnostic data, adjustment of management, discussion with other providers, nursing nursing and ancillary staff involved in patient's care documentation, 40 Minutes Charges/Coding Visit Charges Inpatient E&M: 69681 Subs Hosp L2 06/25/25 0806 <Electronically signed by Joni Cochran MD> Cosigner Signature (if applicable): CC: ~ Signed [facility] Work Phone: [phone]) [phone] Progress note [facility] Medical Records Department [address] [place] [address] Progress Note - Hospitalist 06/25/25728 MR#: [id number] Acct: [id number] Name: MARLI ROSALES Rep #:[id number] : 1935 89 From: Joni Cochran MD PCP: Dr. Roma Grajeda, DO Status:ADM HAIM Location: [place]3 RH769-4 Reason for Visit Chief Complaint: Generalized weakness Subjective Subjective Patient is an 89-year-old who was brought to the emergency department after apparently passing out while having a bowel movement. He was also found to haveUTI on [facility] Objective Data Objective Data Vital Signs: Vital Signs Temp Pulse Resp BP Pulse Ox O2 Del Method 97.4 F L 66 16 149/72 H 98 Room Air 06/25/25 06:05 06/25/25 06:05 06/25/25 06:05 06/25/25 06:05 06/25/25 06:05 06/25/25 06:05 Oxygen Delivery Method Room Air Weight: 69.9 kg Body Mass Index (BMI) 32.2 Intake & Output: Intake and Output for Last 24 Hours 06/23/25 06/24/25 06/25/25 23:59 23:59 23:59 Intake Total 920 / 920 795 / 795 Balance 920 / 920 795 / 795 Lab / Micro Data 06/25/25 05:49 06/25/25 05:49 Labs: Laboratory Results - last 24 hr 06/24/25 10:50: WBC 6.3, RBC 3.63 L, Hgb 10.8 L, Hct 34.5 L, MCV 95.0, MCH 29.8,MCHC 31.3 L, RDW Std Deviation 49.1 H, RDW Coeff of Laury 13.9, Plt Count 310, MPV9.0, Immature Gran % (Auto) 0.300, Neut% (Auto) 60.0, Lymph % (Auto) 26.2, Erie% (Auto) 10.0, Eos % (Auto) 2.7, Baso % (Auto) 0.8, Absolute Neuts (auto) 3.8, Absolute Lymphs (auto) 1.65, Nucleated RBC % 0, Sodium 134, Potassium 4.4, Chloride 98, Carbon Dioxide 23.2, Anion Gap 13, BUN 31 H, Creatinine 1.17, EstimCreat Clear Calc 28.99 L,Est GFR (MDRD) Non-Af 45 L, BUN/Creatinine Ratio 26.2 H, Glucose 138 H, Calcium 9.3 06/24/25 13:10: Urine Color Yellow, Urine Clarity Sl. Cloudy, Urine pH 6.5, Ur Specific Turton 1.010, Urine Protein 30 H, Urine Glucose (UA) Normal, Urine Ketones Negative, Urine Occult Blood 10 H, Urine Nitrite Positive H, Urine Bilirubin Negative, Urine Urobilinogen Normal, Ur Leukocyte [id number] H, Urine RBC 0 SEEN, Urine WBC 25-50 SEEN, Ur Squamous Epith Cells 5-10 SEEN, UrineBacteria 0 SEEN, Urine Mucus 0 SEEN 06/25/25 05:49: WBC 5.8, RBC 3.69 L, Hgb 11.1 L, Hct 34.3 L, MCV 93.0, MCH 30.1,MCHC 32.4, RDW Std Deviation 47.8 H, RDW Coeff of Laury 13.9, Plt Count 283, MPV 8.8, Immature Gran % (Auto) 0.200, Neut % (Auto) 65.4, Lymph % (Auto) 21.1, Erie% (Auto) 9.2, Eos % (Auto) 3.1, Baso % (Auto) 1.0, Absolute Neuts (auto) 3.8, Absolute Lymphs (auto) 1.22, Nucleated RBC % 0, Sodium 138, Potassium 4.5, Chloride 104, Carbon Dioxide 22.9, Anion Gap 12, BUN 22 H, Creatinine 0.82, Estim Creat Clear Calc 41.37 L,Est GFR (MDRD) Non-Af 69, BUN/Creatinine Ratio 26.7 H, Glucose 89, Calcium 9.4, Magnesium 2.4 H, TSH 1.280 Physical Exam Narrative GENERAL: cooperative HEENT: Atraumatic; normocephalic EYES; Anicteric, Normal Conjunctiva NECK; supple, normal thyroid, RESPIRATORY: Diminished to auscultation CARDIOVASCULAR: Regular S1 S2, GI: soft, normoactive bowel sounds, : No Renal angle tenderness; EXTREMITIES: No edema, no clubbing, MUSCULOSKELETAL: no muscle wasting NEURO: Awake; no lateralizing signs. SKIN: No Rash PSYCH; Flat affect Assessment & Plan Assessment/Plan (1) Generalized weakness: (2) Abnormal urinalysis: (3) Vasovagal near syncope: PLAN: Plan Patient is an 89-year-old who was brought to the emergency department after apparently passing out while having a bowel movement. He was also found to haveUTI on admission admitted to regular [facility] for further management 1. Vasovagal syncope ? Admitted to a monitored bed for continuous telemetry. Orthostatics obtained on admission came back negative. EKG demonstrated sinus rhythm with QTc of 440 2. Acute complicated cystitis ? Patient started on ceftriaxone urine culture sent 3. Hypertension ? Blood pressure controlled, home medications continued with dose adjustment as needed 4. Hypothyroidism ? Patient is on levothyroxine home dose continued 5. GERD ? On PPI continue 6. DVT prophylaxis ? Subcu Lovenox Time spent in the patient's overall evaluation,decision-making process, review of diagnostic data, adjustment of management, discussion with other providers, nursing nursing and ancillary staff involved in patient's care documentation, 40 Minutes Charges/Coding Visit Charges Inpatient E&M: 99490 Subs Hosp L2 06/25/25 0806 Cosigner Signature (if applicable): CC: ~ Signed [facility]09-17-2025 Discharge summary Author Biju Quezada [facility] Note Date/Time June 24, 2025 2:52pm [facility] Medical Records Department [address] [place] [address] Emergency Department Summary 06/24/25 MR#: [id number] Acct: [id number] Name: MARLI ROSALES Rep #:[id number] : 1935 89 From: Biju Quezada DO PCP: Dr. Roma Grajeda, DO Status:ADM HAIM Location: [place] [address] HPI History of Present Illness Chief Complaint: Syncope Detail of Chief Complaint: Near syncope Informant: patient Narrative Narrative: Patient presents to the emergency department with complaint of a near syncopal episode. She states that she believes this was another vagal episode. She was doing a puzzle when she felt the urge to use the restroom and she went to the bathroom and sat on the toilet initially for a short time. She was then was able to stand and pull her pants down and had a bowel movement. She then becameacutely weak and sweaty and felt like she might pass out but does not think she passed out. She states she just did not feel well this morning somewhat weak. She denies chest pain or palpitations. She denies shortness of breath. She is currently feeling improved. She has had similar episodes in the past. Denies recent illness. Denies dysuria or urgency. She does have urinary frequency which is not uncommon [facility] Medical History Irritable bowel syndrome Spinal stenosis [...] intake: never ROS ROS ED ROS Narrative Near syncope, diaphoresis Review of Systems ROS Unobtainable: other Constitutional Constitutional ED: Reports lethargy; Denies chills, fever(s), sweats or weight loss Eyes Eyes: Denies blurry vision, change in vision or diplopia ENT ENT ED: Denies rhinorrhea or sore throat Cardiovascular Cardiovascular: Denies chest pain, orthopnea or racing heartbeat Respiratory/Chest Respiratory/Chest: Denies cough, dyspnea, dyspnea on exertion, orthopnea or sputum Gastrointestinal Gastrointestinal: Reports nausea; Denies abdominal pain, diarrhea or vomiting Genitourinary Genitourinary ED: Reports urinary frequency; Denies dysuria or hematuria Musculoskeletal Musculoskeletal: Denies arthralgias, back pain, myalgias or neck pain Integumentary Denies abscess, Abrasions or rash Neurologic Neurologic: Denies headache(s) or weakness Psychiatric Psychiatric: Denies anxiety, depression or suicidal thoughts Endocrine Endocrinology: Denies polydipsia, polyphagia or polyuria Hematologic/Lymphatic Hematologic/Lymphatic: Denies easy bleeding, easy bruising or lymphadenopathy Allergic/Immunologic Allergic/Immunologic ED: Denies mouth swelling, tongue swelling or urticaria EXAM Physical Exam Const Vital Signs: 06/24/25 10:42 06/24/25 10:47 06/24/25 [...] 89 Pulse Ox 98 Oxygen Delivery Method Positive well nourished and well developed General Appearance ED: well developed and NAD HEENT Reports TM's clear and moist mucous membranes normocephalic and atraumatic; Negative for trauma or tenderness Tympanic Membrane ED: Yes TM's clear Eyes PERRL and EOMs intact bilaterally General Eye ED: Negative for pale conjunctiva or scleral icterus Neck no lymphadenopathy, supple and no JVD General: Negative for tenderness Chest Wall inspection of chest normal and palpation of chest normal Chest: Negative for tenderness Resp normal respiratory effort and clear to auscultation bilaterally Effort and Inspection: Negative for respiratory distress or pain with movement Auscultation: Negative for rhonchi, wheezes or diminished lung sounds Cardio regular rate, regular rhythm, S1 normal heart sound, S2 normal heart sound and no murmurs Peripheral Pulses: pulses 2+ throughout GI normal to inspection, nondistended, normoactive bowel sounds, soft to palpation,non-tender, non-distended and no masses Back/Spine no CVA tenderness and no thoracic nor lumbar tenderness Extremity normal to inspection General Extremety ED: Negative for edema General Extremity: Negative for edema Neuro oriented x3, CN's II-XII intact bilaterally, no sensory deficits noted and gait normal Sensorium / Orientation: awake, alert, oriented to person, oriented to place andoriented to time Motor Exam: strength 5/5 throughout and strength abnormal Psych mental status grossly normal Skin no rashes or lesions noted and no wounds MDM MDM MDM Narrative Medical decision making narrative: Patient presents with near syncopal episode and urinary frequency. History of vasovagal syncope. Clinically she looks well. I will establish. EKG obtained on arrival showed a sinus rhythm with a ventricular rate of 62 bpm with no acuteST segment changes. CBC with differential shows a white count of 6.3 with hemoglobin 10.8 and platelet count of 310. Chemistries unremarkable. BUN 31 and creatinine 1.17. Urinalysis with signs of infection with positive nitrites as well as 5 hide leukocyte esterase and 25-50 WBCs and no bacteria seen. Patient had urine culture sent and was started on Rocephin 1 g IV. Orthostatic vital signs were negative. Will discuss with hospitalist to evaluate patient for admission Lab Data Attestation: I reviewed the patient's lab results. Labs: Laboratory Results - last 24 hr 06/24/25 06/24/25 10:50 13:10 WBC 6.3 RBC 3.63 L Hgb 10.8 L Hct 34.5 L MCV 95.0 MCH 29.8 MCHC 31.3 L RDW Std Deviation 49.1 H RDW Coeff of Laury 13.9 Plt Count 310 MPV 9.0 Immature Gran % (Auto) 0.300 Neut % (Auto) 60.0 Lymph % (Auto) 26.2 Erie % (Auto) 10.0 Eos % (Auto) 2.7 Baso % (Auto) 0.8 Absolute Neuts (auto) 3.8 Absolute Lymphs (auto) 1.65 Nucleated RBC % 0 Sodium 134 Potassium 4.4 Chloride 98 Carbon Dioxide 23.2 Anion Gap 13 BUN 31 H Creatinine 1.17 Estim Creat Clear Calc 28.99 L Est GFR (MDRD) Non-Af 45 L BUN/Creatinine Ratio 26.2 H Glucose 138 H Calcium 9.3 Urine Color Yellow Urine Clarity Sl. Cloudy Urine pH 6.5 Ur Specific Turton 1.010 Urine Protein 30 H Urine Glucose (UA) Normal Urine Ketones Negative Urine Occult Blood 10 H Urine Nitrite Positive H Urine Bilirubin Negative Urine Urobilinogen Normal Ur Leukocyte Esterase 500 H Urine RBC 0 SEEN Urine WBC 25-50 SEEN Ur Squamous Epith Cells 5-10 SEEN Urine Bacteria 0 SEEN Urine Mucus 0 SEEN EKG Initial EKG: Attestation: I personally reviewed and interpreted this EKG as follows: Comments: Sinus rhythm with rate of 62 bpm with no acute ST segment changes Discharge Plan Dx/Rx/DC Orders Clinical Impression: Acute UTI, Near syncope Disposition Disposition: Acute Care Hospital [facility] What to do if you have Problems For any increased pain, shortness of breath, bleeding, nausea or vomiting, chestpain, or any unexpected problems, contact your Primary Care Provider. Call [facility] ([phone]) or report to the closest Emergency Room. Call 911 if necessary. 06/24/25 1452 <Electronically signed by Biju Quezada DO> Cosigner Signature (if applicable): CC: Dr. Roma Grajeda DO ~ Signed [facility] Work Phone: 1([phone]) 160-948209-17-2025 History and physical note Author Huma Khan [facility] Note Date/Time June 24, 2025 2:28pm [facility] Medical Records Department [address] [place] [address] H&P Exam - Hospitalist 06/24/25 1406 MR#: [id number] Acct: [id number] Name: MARLI ROSALES Rep #:[id number] : 1935 89 From: Huma Khan MD PCP: Dr. Roma Grajeda DO Status:ADM HAIM Location: [place] [id number] HPI - General General Date of Admission: 06/24/25 Date of Service: 06/24/25 Chief Complaint: Generalized weakness HPI Narrative MARLI ROSALES, is a 89-year-old female with a history of hypothyroidism, GERD, hypertension presented [facility] ED 06/24/2025 with complaint ofgeneralized weakness [...] vomiting, no other new or acute complaints [facility] Medical History Irritable bowel syndrome Spinal stenosis [...] 0.125 mg tablet 0.125 mg PO TID WI N abd cramping 06/24/25 Unknown History pantoprazole [...] % (Auto) 60.0, Lymph % (Auto) 26.2, Erie% (Auto) 10.0, Eos % (Auto) 2.7, Baso [...] Sl. Cloudy, Urine pH 6.5, Ur Specific Turton 1.010, Urine Protein 30 H, Urine Glucose [...] Khan MD Charges/Coding Visit Charges Inpatient E&M: 62102 Init Hosp L2 06/24/25 1428 <Electronically signed by Huma Khan MD> Cosigner Signature (if applicable): CC: Dr. Roma Grajeda DO; Dr. Huma Khan MD~ Signed [facility] Work Phone: 1([phone]) 208-415209-17-2025 Evaluation note* Diagnosis Onset Date Resolution Status Admit Date Abnormal urinalysis resolved mb2024 2:06pm Acute UTI resolved June 2:06pm Generalized weakness resolved Jun emb2024 2:06pm Near syncope resolved June 242024 2:06pm Vasovagal near syncope resolved Se ptember 2024 2:06pm [facility] Work Phone: [phone]) 493-692509-17-2025 Discharge summary [facility] Medical Records Department [address] [place] [address] Emergency Department Summary 06/24/25 MR#: [id number] Acct: [id number] Name: MARLI ROSALES Rep #:[id number] : 1935 89 From: Biju Quezada DO PCP: Dr. Roma Grajeda DO Status:ADM HAIM Location: [place] [address] HPI History of Present Illness Chief Complaint: Syncope Detail of Chief Complaint: Near syncope Informant: patient Narrative Narrative: Patient presents to the emergency department with complaint of a near syncopal episode. She states that she believes this was another vagal episode. She was doing a puzzle when she felt the urge to use the restroom and she went to the bathroom and sat on the toilet initially for a short time. She was then was able to stand and pull her pants down and had a bowel movement. She then becameacutely weak and sweaty and felt like she might pass out but does not think she passed out. She states she just did not feel well this morning somewhat weak. She denies chest pain or palpitations. She denies shortness of breath. She is currently feeling improved. She has had similar episodes in the past. Denies recent illness. Denies dysuria or urgency. She does have urinary frequency which is not uncommon [facility] Medical History Irritable bowel syndrome Spinal stenosis [...] intake: never ROS ROS ED ROS Narrative Near syncope, diaphoresis Review of Systems ROS Unobtainable: other Constitutional Constitutional ED: Reports lethargy; Denies chills, fever(s), sweats or weight loss Eyes Eyes: Denies blurry vision, change in vision or diplopia ENT ENT ED: Denies rhinorrhea or sore throat Cardiovascular Cardiovascular: Denies chest pain, orthopnea or racing heartbeat Respiratory/Chest Respiratory/Chest: Denies cough, dyspnea, dyspnea on exertion, orthopnea or sputum Gastrointestinal Gastrointestinal: Reports nausea; Denies abdominal pain, diarrhea or vomiting Genitourinary Genitourinary ED: Reports urinary frequency; Denies dysuria or hematuria Musculoskeletal Musculoskeletal: Denies arthralgias, back pain, myalgias or neck pain Integumentary Denies abscess, Abrasions or rash Neurologic Neurologic: Denies headache(s) or weakness Psychiatric Psychiatric: Denies anxiety, depression or suicidal thoughts Endocrine Endocrinology: Denies polydipsia, polyphagia or polyuria Hematologic/Lymphatic Hematologic/Lymphatic: Denies easy bleeding, easy bruising or lymphadenopathy Allergic/Immunologic Allergic/Immunologic ED: Denies mouth swelling, tongue swelling or urticaria EXAM Physical Exam Const Vital Signs: 06/24/25 10:42 06/24/25 10:47 06/24/25 [...] 89 Pulse Ox 98 Oxygen Delivery Method Positive well nourished and well developed General Appearance ED: well developed and NAD HEENT Reports TM's clear and moist mucous membranes normocephalic and atraumatic; Negative for trauma or tenderness Tympanic Membrane ED: Yes TM's clear Eyes PERRL and EOMs intact bilaterally General Eye ED: Negative for pale conjunctiva or scleral icterus Neck no lymphadenopathy, supple and no JVD General: Negative for tenderness Chest Wall inspection of chest normal and palpation of chest normal Chest: Negative for tenderness Resp normal respiratory effort and clear to auscultation bilaterally Effort and Inspection: Negative for respiratory distress or pain with movement Auscultation: Negative for rhonchi, wheezes or diminished lung sounds Cardio regular rate, regular rhythm, S1 normal heart sound, S2 normal heart sound and no murmurs Peripheral Pulses: pulses 2+ throughout GI normal to inspection, nondistended, normoactive bowel sounds, soft to palpation,non-tender, non-distended and no masses Back/Spine no CVA tenderness and no thoracic nor lumbar tenderness Extremity normal to inspection General Extremety ED: Negative for edema General Extremity: Negative for edema Neuro oriented x3, CN's II-XII intact bilaterally, no sensory deficits noted and gait normal Sensorium / Orientation: awake, alert, oriented to person, oriented to place andoriented to time Motor Exam: strength 5/5 throughout and strength abnormal Psych mental status grossly normal Skin no rashes or lesions noted and no wounds MDM MDM MDM Narrative Medical decision making narrative: Patient presents with near syncopal episode and urinary frequency. History of vasovagal syncope. Clinically she looks well. I will establish. EKG obtained on arrival showed a sinus rhythm with a ventricular rate of 62 bpm with no acuteST segment changes. CBC with differential shows a white count of6.3 with hemoglobin 10.8 and platelet count of 310. Chemistries unremarkable. BUN 31 and creatinine 1.17. Urinalysis with signs of infection with positive nitrites as well as 5 hide leukocyte esterase and 25-50 WBCs and no bacteria seen. Patient had urine culture sent and was started on Rocephin 1 g IV. Orthostatic vital signs were negative. Will discuss with hospitalist to evaluate patient for admission Lab Data Attestation: I reviewed the patient's lab results. Labs: Laboratory Results - last 24 hr 06/24/25 06/24/25 10:50 13:10 WBC 6.3 RBC 3.63 L Hgb 10.8 L Hct 34.5 L MCV 95.0 MCH 29.8 MCHC 31.3 L RDW Std Deviation 49.1 H RDW Coeff of Laury 13.9 Plt Count 310 MPV 9.0 Immature Gran % (Auto) 0.300 Neut % (Auto) 60.0 Lymph % (Auto) 26.2 Erie % (Auto) 10.0 Eos % (Auto) 2.7 Baso % (Auto) 0.8 Absolute Neuts (auto) 3.8 Absolute Lymphs (auto) 1.65 Nucleated RBC % 0 Sodium 134 Potassium 4.4 Chloride 98 Carbon Dioxide 23.2 Anion Gap 13 BUN 31 H Creatinine 1.17 Estim Creat Clear Calc 28.99 L Est GFR (MDRD) Non-Af 45 L BUN/Creatinine Ratio 26.2 H Glucose 138 H Calcium 9.3 Urine Color Yellow Urine Clarity Sl. Cloudy Urine pH 6.5 Ur Specific Turton 1.010 Urine Protein 30 H Urine Glucose (UA) Normal Urine Ketones Negative Urine Occult Blood 10 H Urine Nitrite Positive H Urine Bilirubin Negative Urine Urobilinogen Normal Ur Leukocyte Esterase 500 H Urine RBC 0 SEEN Urine WBC 25-50 SEEN Ur Squamous Epith Cells 5-10 SEEN Urine Bacteria 0 SEEN Urine Mucus 0 SEEN EKG Initial EKG: Attestation: I personally reviewed and interpreted this EKG as follows: Comments: Sinus rhythm with rate of 62 bpm with no acute ST segment changes Discharge Plan Dx/Rx/DC Orders Clinical Impression: Acute UTI, Near syncope Disposition Disposition: Acute Care Hospital [facility] What to do if you have Problems For any increased pain, shortness of breath, bleeding, nausea or vomiting, chestpain, or any unexpected problems, contact your Primary Care Provider. Call [facility] ([phone]) or report tothe closest Emergency Room. Call 911 if necessary. 06/24/25 1452 Cosigner Signature (if applicable): CC: Dr. Roma Grajeda, DO ~ Signed [facility]09-17-2025 History and physical note [facility] Medical Records Department [address] [place] [address] H&P Exam - Hospitalist 06/24/25 1406 MR#: [id number] Acct: [id number] Name: MARLI ROSALES Rep #:[id number] : 1935 89 From: Huma Khan MD PCP: Dr. Roma Grajeda, Status:ADM HAIM Location: [place] [address] HPI - General General Date of Admission: 06/24/25 Date of Service: 06/24/25 Chief Complaint: Generalized weakness HPI Narrative MARLI ROSALES, is a 89-year-old female with a history of hypothyroidism, [facility]ERD, [facility] with complaint ofgeneralized weakness and [...] and nauseated which resolved. Reports she has beenhaving vasovagal syncope for at least 15 years [...] vomiting, no other new or acute complaints [facility] Medical History Irritable bowel syndrome Spinal stenosis [...] 0.125 mg tablet 0.125 mg PO TID WI N abd cramping 06/24/25 Unknown History pantoprazole [...] 310, MPV9.0, Immature Gran % (Auto) 0.300, Neut% (Auto) 60.0, Lymph % (Auto) 26.2, Erie% (Auto) 10.0, Eos % (Auto) 2.7, Baso % (Auto) 0.8, Absolute Neuts (auto) 3.8, Absolute Lymphs (auto) 1.65, Nucleated RBC % 0, Sodium 134, Potassium 4.4, Chloride 98, Carbon Dioxide 23.2, Anion Gap 13, BUN 31 H, Creatinine 1.17, EstimCreat Clear Calc 28.99 L,Est GFR (MDRD) Non-Af 45 L, BUN/Creatinine Ratio 26.2 H, Glucose 138 H, Calcium 9.3 06/24/25 13:10: Urine Color Yellow, Urine Clarity Sl. Cloudy, Urine pH 6.5, Ur Specific Turton 1.010, Urine Protein 30 H, Urine Glucose (UA) Normal, Urine Ketones Negative, Urine Occult Blood 10 H, Urine Nitrite Positive H, Urine Bilirubin Negative, Urine Urobilinogen Normal, Ur Leukocyte [id number] H, Urine RBC 0 SEEN, Urine WBC [...] UTIs and generalized weakness do have high suspicionfor UTI -Gentle IV fluids -Urine culture sent [...] Khan MD Charges/Coding Visit Charges Inpatient E&M: 97160 Init Hosp L2 06/24/25 1428 Cosigner Signature (if applicable): CC: Dr. Roma Grajeda DO; Dr. Huma Khan MD~ Signed [facility]09-04-2025 Discharge summary [facility] Medical Records Department [address] [place] [address] Emergency Department Summary 06/11/25 MR#: [id number] Acct: [id number] Name: MARLI ROSALES Rep #:[id number] : 1935 89 From: Myrtle Sullivan MD PCP: Dr. Roma Grajeda DO Status:REG ER Location: ED HPI History of Present Illness Chief Complaint: Lower Extremity Injury Narrative Narrative: Patient is a 89-year-old female presenting to the emergency department for righthip pain. Patient has past medical history as below including osteoarthritis ofher right hip, low back pain and a priorright hip fracture with surgical repair. Patient states that for the past 5 days she has had pain in her right hip. She has been on ciprofloxacin for UTI and has finished this prescription. She thinks that the ciprofloxacin caused her "scar tissue to act up" in her right hip. She denies any fever or chills. She ambulates with a rollator. Denies any pain that radiates down her leg. Denies any weakness or numbness in her right leg. Denies any new back pain from baseline. Has been taking her tramadol for pain control at home. Denies any falls or trauma to her hip. [facility] Medical History Irritable bowel syndrome Spinal stenosis [...] extend at hip without difficulty. Able to flexand extend at knee without difficulty or pain. [...] or warmth of the hip. Low concern forseptic joint. She has had no falls or trauma to her hip. Doubt fracture or dislocation. Likely thisis musculoskeletal however will obtain a right hip x-ray given her age. X-ray reviewed by myself. No dislocation or fracture noted. Radiology read with no acute osseous abnormality. Patient able to ambulate. Encouraged to continue taking her pain medications at home as she has been. Given strict return precautions. Patient and daughter feel comfortable with the plan. Encouraged follow-up with PCPas soon as possible. Patient discharged from the [...] Findings and recommendations discussed above. Reading Location: [facility] Discharge Plan Triage Chief Complaint: Lower Extremity [...] not reveal any acute reason for admission. However,I want to emphasize that you may be early in the course of adisease process or illness even if it is not present. For this reason you shouldfollow-up within 24 hours for reevaluation with either yourprimary care physician or if necessary back here [...] your Primary Care Provider. Call [facility] ([phone]) or report tothe closest Emergency Room. Call 911 if necessary. 06/11/25 1715 Cosigner Signature (if applicable): CC: Dr. Roma Grajeda DO ~ Signed [facility]09-04-2025 Radiology Diagnostic study note [facility] Imaging Services [address] [place] [address] [id number] HIP, UNI W/ Pelvis 2-3 Views MR#: [id number] Acct: [id number] Name: MARLI ROSALES Rep #: [id number] : 1935 F 89 From: Iam Jim MD PCP: Dr. Roma Grajeda DO Status: PRE ER Study:HIP, UNI W/ Pelvis 2-3 Views Date of Ex am: 06/11/25 Exam# [id number] Ordering Dr: John Sullivan MD PROCEDURE: HIP, UNI W/ PELVIS 2-3 VIEWS 06/11/2025 REASON FOR EXAM: HIP PAIN TECHNIQUE: Procedure Code: RADHP Modality: DX Procedure: HIP, UNI W/ PELVIS [...] Findings and recommendations discussed above. Reading Location: [facility] CC: Dr. Myrtle Sullivan MD; Dr. Roma Grajeda DO ~ [employer] Blind Worker: Signed [facility]09-04-2025 Discharge summary Author Myrtle Sullivan [facility] Note Date/Time June 11, 2025 5:15pm [facility] Medical Records Department [address] [place] [address] Emergency Department Summary 06/11/25 MR#: [id number] Acct: [id number] Name: MARLI ROSALES Rep #:[id number] : 1935 89 From: Myrtle Sullivan MD [...] She thinks that the ciprofloxacin caused her "scar tissue to act up" in her right hip. She denies any fever or chills. She ambulates with a rollator. Denies any pain that radiates down her leg. Denies any weakness or numbness in her right leg. Denies any new back pain from baseline. Has been taking her tramadol for pain control at home. Denies any falls or trauma to her hip. [facility] Medical History Irritable bowel syndrome Spinal stenosis [...] Findings and recommendations discussed above. Reading Location: [facility] Discharge Plan Triage Chief Complaint: Lower Extremity [...] Primary Care Provider: Roma Grajeda Referrals: Roma rGajeda DO [Primary Care Provider] - 2 Days [...] your Primary Care Provider. Call [facility] ([phone]) or report to the closest Emergency Room. Call 911 if necessary. 06/11/25 6494 <Electronically signed by Myrtle Sullivan MD> Cosigner Signature (if applicable): CC: Dr. Roma Grajeda DO ~ Signed [facility] Work Phone: 1(990) 347-658302-20-2025 NoteDate of Procedure 11/27/2024. Interpretation Hyperfluorescence. Notes No Hyper-AF [id number] NoteDate of Procedure 11/27/2024. Disc Normal. Macula RPE mottling. Notes Old PEHCR - no tumor noticed OD RPE mottling [id number] NoteDate of Procedure 11/27/2024. [employer] Electronics Department Manager: JIGNESH. Start time: 10:33 AM. Stop time: 10:33 AM. OCT Macula Interpretation Abnormal foveal contour. Findings include Subretinal fluid, PED, CNV. Interval Change Initial. Notes Newly detected MNV [id number] NoteDate of Procedure 11/27/2024. Binder Layer Information KARENA Gaitan ROUB 11/27/2024 10:50 AM [...] subretinal hemorrhage. No extraocular extension is detected. [id number] NoteHNO ID: [id number] Author: ZANE SOL MD Service: ? Author Type: Physician Type: Progress Notes Filed: 11/27/2024 17:23 Note Text: History: an 88 years old female, Referred by Dr Meng Chavez for evaluation of melanoma (OD) Was originally seen by Dr Foreman, [facility] in September 2024. Dr. Foreman was [...] Zane Sol MD November 27, 2024 5:22 [facility]02-20-2025 History of Present illness Narrative* Zane Sol MD - 11/27/2024 9:06 AM EST History: an 88 years old female, Referred by Dr Meng Chavez for evaluation of melanoma (OD) Was originally seen by Dr Foreman, [facility] in September 2024. Dr. Foreman was [...] 27, 2024 5:22 PM documented in [facility] Medical Records Department [address] [place] [address] Discharge Summary 11/24/24 1201 MR#: [id number] Acct: [id number] Name: MARLI ROSALES Rep #: [id number] : 1935 88 From: Wai Neal MD PCP: Dr. Roma Grajeda DO Status:ADM IN [id number] Prov[facility] Date of Admission: 11/22/24 Date of [...] be expected to be discharged back to [place] [facility] possibly tomorrow Patient is being discharged to [place] #3 hypothyroidism-patient is on Synthroid #4 hypertension-patient [...] Meaningful Use Diagnoses (Choos (more content not included)...[facility]01-03-2024 Discharge summary Author Kiel Huy [facility] October 10, 2023 7:59am Note Date/Time October 10, 2023 7: 59am [facility] Medical Records Department [address] [place] [address] Transfer to [facility] MR#: [id number] Acct: [id number] Name: MARLI ROSALES Rep #:[id number] : 1935 87 From: Kiel Son MD PCP: Dr. Roma Grajeda, DO Status:ADM IN Certification of patient admission REQUIRED AT TIME OF ADMISSION. I CERTIFY THAT POST-HOSPITAL ECF SERVICES ARE REQUIRED TO BE GIVEN ON AN IN-PATIENT BASIS BECAUSE OF THE ABOVE NAMED PATIENT'S NEED FOR PENITENTIARY CARE ON A CONTINUING BASIS FOR THE CONDITION(S) FOR WHICH HE/SHE WAS RECEIVING IN-PATIENT HOSPITAL SERVICES PRIOR TO HIS/HER TRANSFER TO THE F. 10/10/23 0759<Electronically signed by Kiel Son MD> [...] Than 30 Days Type of Care Needed: Intermediate/Assisted Living Rehab Potential: Fair Prognosis: Fair Additional [...] Discharge 10/12/2023 to [facility] , [facility] PT/OT. Discharge Orders/Prescriptions Prescriptions: New amlodipine [...] applicable): CC: Dr. Roma Grajeda DO ~ [facility] Work Phone: 1(624) 759-980401-03-2024 Discharge summary Author [facility] October 10, 2023 7:58am Note Date/Time October 10, 2023 7: 56am [facility] Medical Records Department [address] [place] [address] Discharge Summary 10/10/234 MR#: [id number] Acct: [id number] Name: MARLI ROSALES Rep #:[id number] : 1935 87 From: Kiel Son MD PCP: Dr. Roma Grajeda DO Status:ADM IN Location: [place] [address] Providers Date of Admission: 10/04/23 Primary Care [...] discharge home with . Discharge 10/12/2023 to [facility] , [facility] PT/OT. Physical Exam Const alert General [...] Uncontrolled pain Additional Instructions: Discharge 10/12/2023 to [facility] with , [facility] PT/OT. Meaningful Use Info Meaningful Use Diagnoses (Choose all that apply): None applicable Discharge Plan Admission Admit Date/Time: 10/04/23 15:19 Primary Reason for Your Visit: Debility. Attending Provider: Whitney Gusman Primary Care Provider: Roma Grajeda Instructions Additional Instructions / Restrictions: Discharge 10/12/2023 to [facility] with , [facility] PT/OT. Discharge Orders/Prescriptions Prescriptions: New amlodipine [...] can be placed): Home Health Service 10/10/23 7425 <Electronically signed by Kiel Son MD> Cosigner Signature (if applicable): CC: Dr. Roma Grajeda DO; Dr. Kiel Son MD~ Signed [facility] Work Phone: 1(172) 861-457512-29-2023 History and physical note Author Whitney Gusman [facility] October 05, 2023 11:38am Note Date/Time October 04, 2023 4:21pm [facility] Medical Records Department [address] [place] [address] History & Physical Exam 10/04/23 1613 MR#: [id number] Acct: [id number] Name: MARLI ROSALES Rep #:[id number] : 1935 87 From: Whitney Gusman DO PCP: Dr. Roma Grajeda DO Status:ADM IN Location: [place] [address] HPI - General General Date of Admission: [...] who presented to the emergency department at [facility] on 09/28/2023 complaining of headache, confusion, [...] she is ambulating with a FWW at [facility] she is still c/o dizziness. Admission to SNF was recommended. She was transferred to the transitional care unit at [facility] on 10/04/2023 for therapy to strengthen [...] she fell or if she passed out. [facility] Medical History (Updated 10/05/23 @ 11:34 by [...] agent no Charges/Coding Visit Charges Inpatient E&M: 30922 [facility] Init L1 10/05/23 1138 <Electronically signed by Whitney Gusman DO> Cosigner Signature (if applicable): CC: Dr. Roma Grajeda DO; Dr. Whitney Gusman DO~ Signed [facility] Work Phone: 1(932) 723-595812-29-2023 Progress note Author Diane Hall [facility] October 05, 2023 10:18am Note Date/Time October 05, 2023 9:40am [facility] Medical Records Department [address] [place] [address] Progress Note - Pharmacy 10/05/23 0934 MR#: [id number] Acct: [id number] Name: MARLI ROSALES Rep #:[id number] : 1935 87 From: Diane Hall PCP: [...] 10/04/23 22:00 10/05/23 08:09 Fluticasone 0.05% 1 [place] Nasal.Sry NASAL 1 spray BID FRED Administration [...] Cosigner Signature (if applicable): CC: ~ Signed [facility] Work Phone: 1(429) 551-147712-28-2023 Discharge summary Author Wai Neal [facility] October 04, 2023 1:25pm Note Date/Time October 04, 2023 11:24am [facility] Medical Records Department [address] [place] [address] Transfer to [facility] MR#: [id number] Acct: [id number] Name: MARLI ROSALES Rep #:[id number] : 1935 87 From: Wai Sanz PCP: Dr. Roma Grajeda, DO Status:ADM HAIM Certification of patient admission REQUIRED AT TIME OF ADMISSION. I CERTIFY THAT POST-HOSPITAL ECF SERVICES ARE REQUIRED TO BE GIVEN ON AN IN-PATIENT BASIS BECAUSE OF THE ABOVE NAMED PATIENT'S NEED FOR PENITENTIARY CARE ON A CONTINUING BASIS FOR THE CONDITION(S) FOR WHICH HE/SHE WAS RECEIVING IN-PATIENT HOSPITAL SERVICES PRIOR TO HIS/HER TRANSFER TO THE F. 10/04/23 1325<Electronically signed by Wai Neal MD> [...] Grajeda DO; Dr. Patricio Franz MD ~ [facility] Work Phone: 1(561) 148-520312-27-2023 Progress note Author Patricio Franz [facility] October 03, 2023 9:12am Note Date/Time October 03, 2023 9:12am [facility] Medical Records Department [address] [place] [address] Progress Note - Hospitalist 10/03/23910 MR#: [id number] Acct: [id number] Name: MARLI ROSALES Rep #:[id number] : 1935 87 From: Patricio france MD PCP: Dr. Roma Grajeda DO Status:ADM HAIM Location: [place] [address]1 Subjective Subjective Doing well, no issues overnight [...] DVT: Heparin Charges/Coding Visit Charges Inpatient E&M: 04284 Subs Hosp L2 10/03/23911 <Electronically signed by Patricio Franz MD> Cosigner Signature (if applicable): CC: ~ Signed [facility] Work Phone: 1([phone]) 923-328512-26-2023 Progress note Author Patricio Franz [facility] October 02, 2023 9:26am Note Date/Time October 02, 2023 9:26am [facility] Medical Records Department [address] [place] [address] Progress Note - Hospitalist 10/02/23923 MR#: [id number] Acct: [id number] Name: MARLI ROSALES Rep #:[id number] : 1935 87 From: Patricio france MD PCP: Dr. Roma Grajeda, DO Status:ADM HAIM Location: [place] [address] Subjective Subjective Doing well, no issues overnight [...] DVT: Heparin Charges/Coding Visit Charges Inpatient E&M: 14272 Subs Hosp L2 10/02/23 0926 <Electronically signed by Patricio Franz MD> Cosigner Signature (if applicable): CC: ~ Signed [facility] Work Phone: 1(304) 735-959112-25-2023 Progress note Author Patricio Franz [facility] October 01, 2023 8:38am Note Date/Time October 01, 2023 8:38am [facility] Medical Records Department [address] [place], [place] [address] [address] Progress Note - Hospitalist 10/01/23 0836 MR#: [id number] Acct: [id number] Name: MARLI ROSALES Rep #:[id number] : 1935 87 From: Patricio france MD PCP: Dr. Roma Grajeda, DO Status:ADM HIAM Location: [place] LC791-5 Subjective Subjective Doing well, no issues overnight. [...] GFR (MDRD) Non-Af 98, BUN/Creatinine Ratio 17.9, Eckuaai39, Calcium 9.0 Physical Exam Narrative General: Alert, [...] DVT: Heparin Charges/Coding Visit Charges Inpatient E&M: 22222 Subs Hosp L2 10/01/23 0838 <Electronically signed by Patricio Franz MD> Cosigner Signature (if applicable): CC: ~ Signed [facility] Work Phone: [phone]) 946-299412-24-2023 Progress note Author Patricio Franz [facility] September 30, 2023 8:51am Note Date/Time September 30, 2023 8:52am [facility] Medical Records Department [address] [facility] [place] [address] Progress Note - Hospitalist 09/30/23 0850 MR#: [id number] Acct: [id number] Name: MARLI ROSALES Rep #:[id number] : 1935 87 From: Patricio france MD PCP: Dr. Roma Grajeda, DO Status:ADM HAIM Location: [place] OV452-2 Subjective Subjective Still drowsy but she was [...] % (Auto) 65.8, Lymph % (Auto) 19.3, Erie% (Auto) 9.3, Eos % (Auto) 4.0, Baso [...] DVT: Heparin Charges/Coding Visit Charges Inpatient E&M: 93395 Subs Hosp L2 09/30/23 0851 <Electronically signed by Patricio Franz MD> Cosigner Signature (if applicable): CC: ~ Signed [facility] Work Phone: [phone]) 695-776812-23-2023 Progress note Author Patricio Franz [facility] September 29, 2023 9:42am Note Date/Time September 29, 2023 9:[address] [place] [address] Medical Records Department [address] [place] [address] Progress Note - Hospitalist 09/29/23 0939 MR#: [id number] Acct: [id number] Name: MARLI ROSALES Rep #:[id number] : 1935 87 From: Patricio france MD PCP: Dr. Roma Grajeda, DO Status:ADM HAIM Location: [place] IF209-2 Subjective Subjective A little groggy this morning [...] (Auto) 69.6, Lymph % (Auto) 18.8 L, Erie % (Auto) 7.6, Eos % (Auto) 2.7, [...] Clarity Clear, Urine pH 8.0, Ur Specific Turton 1.010, Urine Protein Negative, Urine Glucose (UA) [...] 72.7 H, Lymph % (Auto) 15.7 L, Erie % (Auto) 7.9, Eos % (Auto) 2.5, [...] DVT: Heparin Charges/Coding Visit Charges Inpatient E&M: 20971 Subs Hosp L2 09/29/23 0942 <Electronically signed by Patricio Franz MD> Cosigner Signature (if applicable): CC: ~ Signed [facility] Work Phone: 1([phone]) 737-552012-23-2023 History and physical note Author Joni An [facility] September 29, 2023 7:03am Note Date/Time September 28, 2023 10:54pm [facility] Medical Records Department [address] [place] [address] H&P Exam - Hospitalist 09/28/232252 MR#: [id number] Acct: [id number] Name: MARLI ROSALES Rep #:[id number] : 1935 87 From: Joni Jaramillo DO PCP: Dr. Roma Grajeda, Status:ADM HAIM Location: [place] [address]-1 HPI - General General Date of Admission: [...] shoulder surgeries plus osteoporosis who presents to [facility] ER complaining of headache, confusion and [...] isexpected to be less than 48 hours. [facility] Medical History (Updated 09/29/23 @ 07:03 by [...] (Auto) 69.6, Lymph % (Auto) 18.8 L, Erie % (Auto) 7.6, Eos % (Auto) 2.7, [...] Clarity Clear, Urine pH 8.0, Ur Specific Turton 1.010, Urine Protein Negative, Urine Glucose (UA) [...] Tylenol as needed pain or fever. Minimize PIG BREEDER-active medications. PT/OT and case management to consult [...] arising from #1 - #3 - Minimize PIG BREEDER-active medications and decrease tramadol to twice daily [...] 45 minutes. Charges/Coding Visit Charges OBSV E&M: 26998 Observ/hosp same date L1 09/29/23 0703 <Electronically signed by Joni Torres DO> Cosigner Signature (if applicable): CC: Dr. Joni Torres DO; Dr. Roma Grajeda DO~ Signed [facility] Work Phone: [phone]) 895-812312-23-2023 Discharge summary Author Nelson Holman [facility] September 28, 2023 11:59pm Note Date/Time September 28, 2023 5:36pm [facility] Medical Records Department [address] [place] [address] Emergency Department Summary 09/28/23 MR#: [id number] Acct: [id number] Name: MARLI ROSALES Rep #:[id number] : 1935 87 From: Nelson Holman DO [...] to the hospital. Hospitalist was informed 09/28/23 0059<Electronically signed by Nelson Holman DO> Cosigner Signature [...] he is waiting in the car outside. [facility] Medical History Alcohol use Celiac disease Dietary [...] motor deficits and no sensory deficits noted [place] Coma Scale: document GCS findings Spontaneous Obeys [...] Patient does have a headache. She states "I think I have a concussion". Differential includes syncope, dysrhythmia, ACS, dehydration, electrolyte [...] (Auto) 69.6 Lymph % (Auto) 18.8 L Erie % (Auto) 7.6 Eos % (Auto) 2.7 [...] Clarity Clear Urine pH 8.0 Ur Specific Turton 1.010 Urine Protein Negative Urine Glucose (UA) [...] Grajeda DO [Primary Care Provider] - Disposition Disposition: Home, Self Care What to do if you have Problems For any increased pain, shortness of breath, bleeding, nausea or vomiting, chestpain, or any unexpected problems, contact your Primary Care Provider. Call [facility] ([phone]) or report to the closest Emergency Room. Call 911 if necessary. 09/28/232225 <Electronically signed by Nelson Holman DO> Cosigner Signature (if applicable): CC: Dr. Roma Grajeda DO ~ Signed [facility] Work Phone: [phone]) 916-906303-05-[address] Khan [facility] December 10, 2022 10:15am Note Date/Time December 10, 2022 9:57 am [facility] Medical Records Department [address] [place] [address] Instructions for Home/Discharge Instructions 12/10/22 0957 MR#: [id number] Acct: [id number] Name: MARLI ROSALES Rep #:[id number] : 1935 86 From: Huma Khan MD [...] sent to your preferred pharmacy at the [facility] in [facility], will take this instead of the [...] CC: Dr. Roma Grajeda DO ~ Signed [facility] Work Phone: [phone]) 780-365003-04-[address] Khan [facility] December 09, 2022 3:39pm Note Date/Time December 09, 2022 8:20 am [facility] Medical Records Department [address] [place] [address] Progress Note - Hospitalist 12/09/22819 MR#: [id number] Acct: [id number] Name: MARLI ROSALES Rep #:[id number] : 1935 86 From: Huma Khan MD PCP: Dr. Roma Grajeda DO Status:ADM HAIM Location: [place] [address] Reason for Visit Reason for Visit: Diagnoses [...] 94.6 H, Lymph % (Auto) 1.3 L, Erie % (Auto) 1.8, Eos % (Auto) 1.6, [...] Sl. Cloudy, Urine pH 6.0, Ur Specific Turton 1.010, Urine Protein 100 H, Urine Glucose [...] 78.4 H, Lymph % (Auto) 5.7 L, Erie % (Auto) 5.7, Eos % (Auto) 9.6 [...] documentation, 30minutes Charges/Coding Visit Charges Inpatient E&M: 66326 Subs Hosp L2 12/09/22 3232 <Electronically signed by Huma Khan MD> Cosigner Signature (if applicable): CC: ~ Signed ADDENDUM by Dr. Huma Khan MD on 12/09/22 at 1539 Addendum Given no law blood will continue lovenox with caution for dvt ppx as she is moderate risk for dvt 12/09/22 1539<Electronically signed by Huma Khan MD> Cosigner Signature (if applicable): cc: ~* Signed [facility] Work Phone: 1(672) 433-150803-03-[address] Kahn [facility] December 08, 2022 2:26pm Note Date/Time December 08, 2022 2:27 pm [facility] Medical Records Department [address] [place] [address] Telemedicine Confirmation Receipt 12/08/22 MR#: [id number] Acct: [id number] Name: MARLI ROSALES Rep #:[id number] : 1935 86 From: Huma Khan MD PCP: Dr. Roma Grajeda, DO Status:ADM HAIM [facility] Tele[facility] has confirmed receipt of a request for visit. This document confirms receipt of the order initiating the consult. To find the results of the consultation, please view the patient's reports for the scanned Telemed Consult. [facility] Work Phone: [phone]) [phone] History and physical note Author Dr. Khan [facility] December 08, 2022 10:38am Note Date/Time December 08, 2022 10:2 4am [facility] Medical Records Department [address] [place] [address] H&P Exam - Hospitalist 12/08/22 1013 MR#: [id number] Acct: [id number] Name: MARLI ROSALES Rep #:[id number] : 1935 86 From: Huma Khan MD PCP: Dr. Roma Grajeda, DO Status:ADM HAIM Location: [place] [address] HPI - General General Date of Admission: 12/08/22 Date of Service: 12/08/22 Chief Complaint: Altered level of consciousness HPI Narrative MARLI ROSALES, is a 86 F with history of hypothyroidism, hypertension, osteoarthritis, multiple urinary tract infections, GERD who presented to [facility] 12/08/2022 after she had decreased consciousness while [...] she wasable to receive fluids and Rocephin. [facility] Medical History Alcohol use Celiac disease Dietary [...] 94.6 H, Lymph % (Auto) 1.3 L, Erie % (Auto) 1.8, Eos % (Auto) 1.6, [...] Sl. Cloudy, Urine pH 6.0, Ur Specific Turton 1.010, Urine Protein 100 H, Urine Glucose [...] Synthroid -TSH in the a.m. #DVT ppx: Lauritanocecile Khan MD Time spent in the patient's overall evaluation,decision-making process, review of diagnostic data, adjustment of management, discussion with other providers, nursing nursing and ancillary staff involved in patient's care documentation, 60minutes Charges/Coding Visit Charges Inpatient E&M: 46831 Init Hosp L2 12/08/22 1038 <Electronically signed by Huma Khan MD> Cosigner Signature (if applicable): CC: Dr. Roma Grajeda DO; Dr. Huma Khan MD~ Signed [facility] Work Phone: [phone]) 167-290203-03-2023 Discharge summary [facility] 08, 2022 9:31am Note Date/Time December 08, 2022 9:10 am [facility] Medical Records Department [address] [place] [address] Emergency Department Summary 12/08/22 MR#: [id number] Acct: [id number] Name: MARLI ROSALES Rep #:[id number] : 1935 86 From: Quentin Melvin DO [...] feels very tiredand fatigued at this time [facility] Medical History Alcohol use Celiac disease Dietary [...] tablet,delayed release 40 mg PO BID GERD 02/15/21 [History Last Taken 04/25/21 04:00] levothyroxine 75 [...] 94.6 H Lymph % (Auto) 1.3 L Erie % (Auto) 1.8 Eos % (Auto) 1.6 [...] Color Urine Clarity Urine pH Ur Specific Turton Urine Protein Urine Glucose (UA) Urine Ketones Urine Occult Blood Urine Nitrite Urine Bilirubin Urine Urobilinogen Ur Leukocyte Esterase Urine RBC Urine WBC Ur Squamous Epith Cells Urine Bacteria Urine Mucus 12/08/22 08:20 WBC RBC Hgb Hct MCV MCH MCHC RDW Std Deviation RDW Coeff of Laury Plt Count MPV Immature Gran % (Auto) Neut % (Auto) Lymph % (Auto) Erie % (Auto) Eos % (Auto) Baso % [...] Sl. Cloudy Urine pH 6.0 Ur Specific Turton 1.010 Urine Protein 100 H Urine Glucose [...] Generalized weakness Disposition Disposition: Acute Care Hospital [facility] What to do if you have Problems For any increased pain, shortness of breath, bleeding, nausea or vomiting, chestpain, or any unexpected problems, contact your Primary Care Provider. Call [facility] ([phone]) or report to the closest Emergency Room. Call 911 if necessary. 12/08/22930 <Electronically signed by Quentin Melvin DO> Cosigner Signature (if applicable): CC: Dr. Roma Grajeda DO ~ Signed [facility] Work Phone: Consult note Author Marguerite Jimenez [facility] October 04, 2023 1:47pm Note Date/Time October 04, 2023 1:47pm [facility] Medical Records Department [address] [place] [address] Counseling Note - Pharmacy 10/04/23 1347 MR#: [id number] Acct: [id number] Name: MARLI ROSALES Rep #:[id number] : 1935 87 From: Marguerite Jimenez PCP: Dr. Roma Grajeda, Status:ADM HAIM Y Location: [place] [address] Pharmacy [place] Med Reconciliation Pharmacy Service has performed discharge [...] mL 10/04/23 10/04/23 1347 <Electronically signed by Marguerite Jimenez> Date _ Marguerite Jimenez Cosigner Signature (if applicable): Date CC: ~ Signed [facility] Work Phone: Discharge summary Author Wia Neal [facility] October 04, 2023 1:33pm Note Date/Time October 04, 2023 1:33pm [facility] Medical Records Department [address] [place] [address] Discharge Summary 10/04/23 1325 MR#: [id number] Acct: [id number] Name: MARLI ROSALES Rep #:[id number] : 1935 87 From: Wai Sanz PCP: Dr. Roma Grajeda DO Status:ADM HAIM [facility] Prov[facility] Date of Admission: 09/28/23 Date of [...] % (Auto) 59.5, Lymph % (Auto) 26.8, Erie% (Auto) 8.2, Eos % (Auto) 4.1, Baso [...] Self Care Charges/Coding Visit Charges Inpatient E&M: 29202 Disch Hosp >30min 10/04/23 1333 <Electronically signed by Wai Neal MD> Cosigner Signature (if applicable): CC: Dr. Roma Grajeda DO; Dr. Wai Neal MD~ Signed [facility] Work Phone: Evaluation noteNo assessment information available [facility] Work Phone: Evaluation note* Diagnosis Onset Date Resolution Status Altered level of consciousness acute Dehydration, mild acute Generalized weakness acute Syncope acute Urinary tract infection acut e [facility] Work Phone: Evaluation note* Diagnosis Onset Date Resolution Status Urinary tract infection acut e Altered level of consciousness resolved Dehydration, mild resolved Generalized weakness resolve d [facility] Work Phone: Evaluation note* Diagnosis Onset Date Resolution Status Concussion acute History of recent fall acute Ruptured tympanic membrane a cute [facility] Work Phone: Evaluation note* Diagnosis Onset Date Resolution Status Ruptured tympanic membrane a cute Closed TBI (traumatic brain injury) acute Debility acute Eardrum rupture, bilateral a cute Urinary tract infection acut e Hypertension chronic Hypothyroidism chronic Insomnia chronic Osteoporosis chronic [facility] Work Phone: Evaluation note* Diagnosis Onset Date Resolution Status Closed TBI (traumatic brain injury) acute Debility acute Eardrum rupture, bilateral a cute Urinary tract infection acut e Hypertension chronic Hypothyroidism chronic Insomnia chronic Osteoporosis chronic [facility] Work Phone: Evaluation note* Diagnosis Peripheral exudative hemorrhagic chorioretinopathy- [facility] Diagnosis Onset Date Resolution Status Admit Date Abnormal urinalysis acute mb2024 2:06pm Acute UTI acute June 2:06pm Generalized weakness acute Sept emb2024 2:06pm Near syncope acute June 242024 2:06pm Vasovagal near syncope acute Se ptember 2024 2:06pm [facility] Work Phone: History and physical note Author Huma Khan [facility] Note Date/Time June 24, 2025 2:28pm [facility] Medical Records Department [address] [place] [address] H&P Exam - Hospitalist 06/24/25 1406 MR#: [id number] Acct: [id number] Name: MARLI ROSALES Rep #:[id number] : 1935 89 From: Huma Khan MD PCP: Dr. Roma Grajeda, DO Status:ADM HAIM [facility] HPI - General General Date of Admission: 06/24/25 Date of Service: 06/24/25 Chief Complaint: Generalized weakness HPI Narrative MARLI ROSALES, is a 89-year-old female with a history of hypothyroidism, GERD, hypertension presented [facility] ED 06/24/2025 with complaint ofgeneralized weakness [...] vomiting, no other new or acute complaints [facility] Medical History Irritable bowel syndrome Spinal stenosis [...] 0.125 mg tablet 0.125 mg PO TID WI N abd cramping 06/24/25 Unknown History pantoprazole [...] % (Auto) 60.0, Lymph % (Auto) 26.2, Erie% (Auto) 10.0, Eos % (Auto) 2.7, Baso [...] Sl. Cloudy, Urine pH 6.5, Ur Specific Turton 1.010, Urine Protein 30 H, Urine Glucose [...] Khan MD Charges/Coding Visit Charges Inpatient E&M: 81018 Init Hosp L2 06/24/25 1428 <Electronically signed by Huma Khan MD> Cosigner Signature (if applicable): CC: Dr. Roma Grajeda DO; Dr. Huma Khan MD~ Signed [facility] Work Phone: Hospital Discharge instructions Additional [...] sent to your preferred pharmacy at the [facility] in [facility], will take this instead of the [...] 911 or proceed to the nearest emergency departmentWPrem[facility] Work Phone: Hospital Discharge instructions Additional Instructions Blurry vision with visual acuity, slit-lamp examination notes dry eyes no abrasions no ulcerations. Use rewetting drops for moisturization. Follow-up with ophthalmology.[facility] Work Phone: Hospital Discharge instructions Additional Instructions Discharge 10/12/2023 to [place] with , [facility] PT/OT.[facility] Work Phone: Hospital Discharge instructionsAdditional Instructions [...] if your symptoms worsen or new symptoms develop.[facility] Work Phone: Reason for referral (narrative)No reason for referral information availableWPremier Health [facility] Work Phone: Summary Purpose Family History No Family History Records Found Relationship Condition Age at Onset Recorded Date/T [...] Unknown November 11, 2020 8:00am Advance Directives No Advanced Directives Records Found Advance Directive Response Recorded Date/ Time Advance Directives Yes August 7:06pm Living Will Yes April 21, 2021 12:26pm Power of Manager Foreign Yes April 21 12:26pm Advance Directive Response Recorded Date/ Time Advance Directives Yes August 6:06pm Living Will Yes April 21, 2021 11:26am Power of Manager Foreign Yes April 21 11:26am Advance Directive Response Recorded Date/ Time Name of Medical Power of Manager Foreign (rodger walters) December 08, 2022 11:09am Advance Directives Yes August 6:06pm Living Will Yes December 08, 2022 11:09am Power of Manager Foreign Yes December 08 11:09am Advance Directive Response Recorded Date/ Time Name of Medical Power of Manager Foreign (rodger walters) December 08, 2022 12:09pm Name of Medical Power of Manager Foreign January 18, 2023 9:04pm Advance Directives Yes August 7:06pm Living Will Yes January 18, 2023 9:04pm Power of Manager Foreign Yes January 18 9:04pm Advance Directive Response Recorded Date/ Time Advance Directives Yes August 7:06pm Living Will Yes January 18, 2023 9:04pm Power of Manager Foreign Yes January 18 9:04pm Advance Directive Response Recorded Date/ Time Advance Directives Yes August 6:06pm Living Will Yes January 18, 2023 8:04pm Power of Manager Foreign Yes January 18 8:04pm Advance Directive Response Recorded Date/ Time Name of Medical Power of Manager Foreign September 29, 2023 1:09am Advance Directives Yes August 6:06pm Living Will Yes September 29, 2 023 1:09am Power of Manager Foreign Yes September 29, 2023 1:09am Advance Directive Response Recorded Date/ Time Name of Medical Power of Manager Foreign September 29, 2023 1:09am Name of Medical Power of Manager Foreign Richard Rsoales, October 05, 2023 6:28pm Advance Directives Yes August 6:06pm Living Will Yes October 05, 2 023 6:28pm Power of Manager Foreign Yes October 05, 2023 6:28pm Advance Directive Response Recorded Date/ Time Advance Directives Yes August 7:06pm Living Will Yes October 05, 2 023 7:28pm Power of Manager Foreign Yes October 05, 2023 7:28pm Name of Medical Power of Manager Foreign Richard Rosales, October 05, 2023 7:28pm Advance Directive Response Recorded Date/ Time Do you have a Healthcare Power of Manager Foreign? Yes June 11, 2025 4:09pm Advance Directives Yes June 2:12pm Advance Directive Response Recorded Date/ Time Do you have a Healthcare Power of Manager Foreign? Yes June 24, 2025 10:42am Do you have a Healthcare Power of Manager Foreign? Yes June 11, 2025 4:09pm Advance Directives Yes June 2:12pm Advance Directive Response Recorded Date/ Time Do you have a Healthcare Power of Manager Foreign? Yes June 24, 2025 2:27pm Do you have a Healthcare Power of Manager Foreign? Yes June 11, 2025 4:09pm Advance Directives [...] 24, 2025 2:06pm Vasovagal near syncope June 24 025 2:06pm Chief Complaint Admit Date RIGHT HIP PAIN June 11, 2025 2:12pm GENERALIZED WEAKNESS, UTI June 2:06pm GENERALIZED WEAKNESS, UTI June 7:29am GENERALIZED WEAKNESS, UTI June 7:23am Additional Source Comments INFORMATION SOURCE (unrecogn ized section and content) DATE CREATED AUTHOR 03/17/2019 [facility] DATE CREATED AUTHOR AUTHOR'S ORGANIZ ATION 11/29/2024 [facility] DATE CREATED AUTHOR AUTHOR'S ORGANIZ ATION 07/17/2025 [facility] y Hospital Goals (unrecognized section and content) Type Treatment Intervention Code Status: DNRC C-A, No IntubationDiscussed with: Patient Care Teams (unrecognized sec tion and content) Team Status: Active Member Role Status Dates Dr. oRma Grajeda DO Family Provider Active Dr. Roma Grajeda DO Primary Care Provider Active Team Status: Active Member Role Status Dates Dr. Roma Grajeda DO Primary Care Provider Active Dr. Quentin Melvin DO Emergency Provider Active Dr. Huma Khan MD Admit Provider, Attending Provid er, Other Provider Active Team Status: Inactive Member Role Status Dates Dr. Roma Grajeda DO Primary Care Provider, Attending P carson Active Team Status: Inactive Member Role Status [...] Inactive Member Role Status Dates Dr. Roma Grjaeda DO Primary Care Provider Active Dr. Himanshu Simpson MD Attending Provider, Referring Provider Active Team Status: Active Member Role Status Dates Dr. Roma Grajeda DO Primary Care Provider Active Dr. Nelson Holamn DO Emergency Provider Active Dr. Joni Torres , Admit Provider, Other Provid er Active Dr. Patricio Franz MD Attending Provider, Other Provider Active Team Status: Active Member Role Status Dates Dr. Roma Grajeda DO Primary Care Provider Active Dr. Nelson Holman DO Emergency Provider Active Dr. Joni Torres , DO Admit Provider, Other Provid er Active Dr. Wai Neal MD Attending Provider, Other Provi dennys Active Dr. Patricio Franz MD Other Provider Active Team Status: Inactive Member Role Status Dates Dr. Roma Grajeda DO Primary Care Provider Active Dr. Nelson Holman , Emergency Provider Active Dr. Joni Torres , DO Admit Provider, Other Provid er [...] Provide r, Attending Provider, Referring Provider Active Representative Government Relations Relationship Specialty Start Date End Date Roma [...] Attending physician Active Start: June 24, 2025 Team Status: Inactive Member Role/Relationship Status Dates Dr. Roma Grajeda DO Primary care physician Active Start: June 24, 2025 End: June 26, 2025 Dr. Biju Quezada DO Emergency Departmen t Physician Active Start: June 24, 2025 End: June 26, 2025 Dr. Huma Khan MD Admitting physician Active Start: June 24, 2025 End: June 26, 2025 Dr. Huma Khan MD Nurse Practitioner Active Start: June 24, 2025 End: June 26, 2025 Dr. Joni Cochran MD Attending physician Active Start: June 24, 2025 End: June 26, 2025 Dr. Yohannes Mccrary MD Nurse Practitioner Active Start: June 24, 2025 End: June 26, 2025 Team Status: Active Member Role/Relationship Status Dates Dr. Roma Grajeda DO Primary care physician Active Start: June 25, 2025 Dr. Biju Quezada DO Emergency Department Physician Ac tive Start: June 25, 2025 Dr. Huma Khan MD Admitting physician Active Start: June 25, 2025 Dr. Huma Khan MD Nurse Practitioner Active Start: June 25, 2025 Dr. Joni Cochran MD Attending physician Active Start: June 25, 2025 Dr. Joni Cochran MD Nurse Practitioner Active Start: June 25, 2025 Team Status: Active Member Role/Relationship Status Dates Dr. Roma Grajeda DO Primary care physician Active Start: June 26, 2025 Dr. Biju Quezada DO Emergency Departmen t Physician Active Start: June 26, 2025 Dr. Huma Khan MD Admitting physician Active Start: June 26, 2025 Dr. Huma Khan MD Nurse Practitioner Active Start: June 26, 2025 Dr. Joni Cochran MD Attending physician Active Start: June 26, 2025 Dr. Joni Cochran MD Nurse Practitioner Active Start: June 26, 2025 Dr. Yohannes Mccrary MD Nurse Practitioner Active Start: June 26, 2025 Source Comments (unrecognize d section and content) In the event this informatio n is protected by the Federal Confidentiality of Alcohol and Drug Abuse Patient Records regulations: The Federal rules restrict any use of the information to criminally investigate or prosecute any alcohol or drug abuse patient.[facility] Reason for Visit (unrecogniz ed section and [...] BE BASED ON THE PRIMARY CLINICAL RECORDS. [employer] provides no warranty or guarantee of the accuracy or completeness of information in this document.
== END ==
LOC: OLS.DANBUR 15:00
PROVIDERS: PCP Family Medicine; Visit Provider Family Medicine
DX: R19.7 Diarrhea, unspecified (principal)
CPT/HCPCS: 82274; 83630